=== PATIENT | female | born 1995 | race Caucasian/White ===

== ENCOUNTER 2023-05-31 15:00 | Emergency (ER) | payer MEDICAID, SELFPAY ==
[2023-05-31 15:18] VITALS: BP 147/96; PULSE 90; RESP 20; TEMP 36.8; O2SAT 97; BMI 27.4
--- NOTE | 2023-05-31 15:31 | CT_ITS ---
The [address] [address] Patient Name: GIANCARLO CELAYA MRN: [id number] date: 1995 Sex: F Assigned Patient Location: ER Current Patient Location: ER Accession/Order Number: [id number] Exam Date: 05/31/2023 16:26 Report Date: 05/31/2023 16:59 At the request of: GLADIS RODRIGUEZ Procedure: CT head/brain wo con EXAM: CT head/brain wo con HISTORY: Headache and neck pain for one month. TECHNIQUE: Axial CT scans through the head were obtained without IV contrast administration. Dose reduction techniques were achieved by using: automated exposure control and/or adjustment of mA and /or kV according to patient size and/or use of iterative reconstruction technique. COMPARISON: None. FINDINGS: The cerebral hemispheres have normal white and mitchell matter and corticomedullary differentiation. To the limit of CT, the posterior fossa appears unremarkable. The ventricular system and cortical sulci are normal for the patient's age. No area of abnormal mass-effect or edema or intracranial hemorrhage. The visualized orbits show no abnormal mass. The visualized paranasal sinuses show no air-fluid level. Mastoid air cells are clear. CT/CT head/brain wo con IMPRESSION: No acute intracranial process. Electronically authenticated by: DAYANA ROJAS Date: 05/31/2023 16:59
--- NOTE | 2023-05-31 15:31 | CT_ITS ---
The [address] [address] Patient Name: GIANCARLO CELAYA MRN: [id number] date: 1995 Sex: F Assigned Patient Location: ER Current Patient Location: ER Accession/Order Number: [id number] Exam Date: 05/31/2023 16:26 Report Date: 05/31/2023 17:02 At the request of: GLADIS RODRIGUEZ Procedure: CT cervical spine wo con EXAM: CT cervical spine wo con HISTORY: Neck pain for one month. TECHNIQUE: Axial CT scans through the cervical spine were obtained without contrast administration. Sagittal and coronal reconstruction images were obtained. A trauma Dose reduction techniques were achieved by using: automated exposure control and/or adjustment of mA and /or kV according to patient size and/or use of iterative reconstruction technique. COMPARISON: None. FINDINGS: Normal cervical alignment. Intracanalicular compartment appears unremarkable. No neural foraminal stenosis or abnormal paraspinal soft tissue. No abnormal lytic or sclerotic lesion. The prevertebral soft tissue space appears normal. Visualized intracranial contents appear normal. Visualized neck shows no adenopathy. Visualized lung apices are clear. CT/CT cervical spine wo con IMPRESSION: Normal CT of cervical spine. Electronically authenticated by: DAYANA ROJAS Date: 05/31/2023 17:02
--- NOTE | 2023-05-31 16:11 | ED.GENADUL1 ---
HPI - General Adult General Chief complaint: Headache Stated complaint: HEADACHE X 1 MONTH Time Seen by Provider: 05/31/23 15:31 Source: patient Mode of arrival: walk-in Limitations: no limitations History of Present Illness HPI narrative: Patient with about one month of headache - location changes - and posterior neck pain presents to the ED. Her headache is sometimes associated with nausea and twice associated with vomiting. She also occasionally has visual blurring, hand tingling and/or peripheral visual shimmering . No recent illness or injury to the head or neck. No skin rash. She had migraines as a child and early teen and then they stopped . She saw her PCP and was diagnosed with stress and anxiety , she told me. She was prescribed Effexor and it hasn't made any difference . Related Data Previous Rx's Medication Instructions Recorded ketorolac 10 mg tablet 10 mg PO Q8H PRN headache #14 tabs 05/31/23 ondansetron 4 mg disintegrating 4 mg PO Q6H PRN headache, nausea 05/31/23 tablet #14 tabs sumatriptan succinate 50 mg tablet See Rx Instructions PO .COMPLEX 05/31/23 (Imitrex) PRN headache #20 tabs Allergies Allergy/AdvReac Type Severity Reaction Status Date / Time No Known Drug Allergies Allergy Verified 05/31/23 15:22 Exam Narrative Exam Narrative: Nurses notes and vital signs reviewed and patient is not hypoxic. afebrile General: Well-appearing and in no apparent distress. Skin: Warm, dry, no pallor noted. No rash. Head: Normocephalic, atraumatic. Neck: Supple, non-tender. No meningismus. No cervical lymphadenopathy Eye: Pupils are equal, round and EOMI. No scleral icterus. No nystagmus Ears, Nose, Mouth, and Throat: TM are clear, no posterior oropharynx erythema or nasal mucosal hypertrophy, uvula is mid-line Oral mucosa is moist Cardiovascular: Regular Rate and Rhythm without murmur, gallop or rub. Respiratory: No accessory muscle use or respiratory distress. Lungs are clear to auscultation, no wheezing, rales or rhonchi Musculoskeletal: normal ROM all 4 Neurological: A&O x4. No cranial nerve dysfunction observed. No truncal ataxia. Moves all extremities. Sensation intact. Psychiatric: Cooperative and interactive. Normal mood and affect. Constitutional Vital Signs, click to edit/add: Last Vital Signs Temp 98.3 F 05/31/23 15:18 Pulse 90 05/31/23 15:18 Resp 20 05/31/23 15:18 BP 147/96 H 05/31/23 15:18 Pulse Ox 97 05/31/23 15:18 O2 Del Method Room Air 05/31/23 15:18 Course Vital Signs Vital signs: Vital Signs Temperature 98.3 F 05/31/23 15:18 Pulse Rate 90 05/31/23 15:18 Respiratory Rate 20 05/31/23 15:18 Blood Pressure 147/96 H 05/31/23 15:18 Pulse Oximetry 97 05/31/23 15:18 Oxygen Delivery Method Room Air 05/31/23 15:18 Temperature 98.3 F 05/31/23 15:18 Pulse Rate 90 05/31/23 15:18 Respiratory Rate 05/31/23 15:18 Blood Pressure 147/96 H 05/31/23 15:18 Pulse Oximetry 97 05/31/23 15:18 Oxygen Delivery Method Room Air 05/31/23 15:18 Medical Decision Making MDM Narrative Medical decision making narrative: Patient sent for CT scans of the head and cervical spine. She was given Toradol, Benadryl and Zofran. Head CT and cervical spine CTs were without worrisome findings. She had no improvement with initial ED treatment - headache was unchanged - so she received IV Solu-medrol, IV Magnesium and IV Norflex. Her pain started to decrease after the second round of treatment meds. She received IV Reglan before beign discharged home. I prescribed zofran, toradol to take until this episode resolves. She also got a prescription for Imitrex to take if the headache returns after this episode resolves. Discharge Plan Discharge Chief Complaint: Headache Clinical Impression: Headache Patient Disposition: Home, Self-Care Time of Disposition Decision: 18:19 Prescriptions / Home Meds: New ondansetron 4 mg tablet,disintegrating 4 mg PO Q6H PRN (Reason: headache, nausea) Qty: 14 0RF ketorolac 10 mg tablet 10 mg PO Q8H PRN (Reason: headache) Qty: 14 0RF sumatriptan succinate [Imitrex] 50 mg tablet See Rx Instructions .ROUTE .COMPLEX PRN (Reason: headache) Qty: 20 0RF Rx Instructions: take 1 tab at onset of headache; if no relief may repeat 1 tab after at least 2 hrs; max = 4 tabs/24 hr PRN; Instructions: Acute Headache (ED) Stand Alone Forms: Portal Instructions Referrals: Physician,Non-Staff, MD [Primary Care Provider] - 1 week
[2023-05-31] MEDS: ONDANSETRON 4 MG RAPDIS TABLET SL (16:22)
[2023-05-31] MEDS: DIPHENHYDRAMINE HCL 25 MG/10 ML ELIXIR PO (16:22)
[2023-05-31] MEDS: KETOROLAC TROMETHAMINE 10 MG TABLET PO (16:22)
[2023-05-31] MEDS: METHYLPREDNISOLONE SOD SUCC PF 125 MG/2 ML VIAL IVP (17:24)
[2023-05-31] MEDS: ORPHENADRINE 60 MG/ 2 ML VIAL 30 MG IV (17:24)
[2023-05-31] MEDS: METOCLOPRAMIDE HCL 10 MG/2 ML VIAL IVP (18:50)
== END 2023-05-31 18:56 | disposition home or self-care (01) ==
PROVIDERS: Emergency Provider Emergency Medicine
DX: R51.9 Headache, unspecified (principal)
CPT/HCPCS: 70450; 72125; 96365; 96375; 99285; J2360; J2765; J2930; J3475; Q0162

== ENCOUNTER 2023-07-18 12:43 | Emergency (ER) | payer MEDICAID, SELFPAY ==
[2023-07-18 12:51] VITALS: BP 135/80; PULSE 90; RESP 16; TEMP 36.7; O2SAT 99; BMI 27.1
[2023-07-18 12:57] LABS: Glucometer 89 mg/dL (74-106)
--- NOTE | 2023-07-18 12:59 | ED.GENADUL1 ---
HPI - General Adult General Chief complaint: Recheck/Abnormal Lab/Rx Stated complaint: ABNORNMAL LAB VALUE Time Seen by Provider: 07/18/23 12:50 Source: patient Mode of arrival: walk-in History of Present Illness HPI narrative: 27-year-old female presents for 2-week history of not feeling well. She has been nauseous and vomited once. She took tests at home and they were negative. She has not had a period for 2 months. No diarrhea. She is not complaining of cough or fever or shortness of breath. Related Data Previous Rx's Medication Instructions Recorded sumatriptan succinate 50 mg tablet See Rx Instructions PO .COMPLEX 05/31/23 (Imitrex) PRN headache #20 tabs byrbnrzvld-qdnyviigcsfuk-xiybgtbr 1 cap PO Q6H PRN pain 7 days #20 07/18/23 50 mg-300 mg-40 mg capsule caps (Fioricet) ondansetron 4 mg disintegrating 4 mg PO Q6H PRN nausea and 07/18/23 tablet vomiting #20 tabs Allergies Allergy/AdvReac Type Severity Reaction Status Date / Time No Known Drug Allergies Allergy Verified 05/31/23 15:22 Review of Systems ROS Narrative A ten point review of systems is negative except as noted above. Exam Narrative Exam Narrative: Nurses note and vital signs reviewed and patient is not hypoxic. General: The patient appears well and in no apparent distress. Patient is resting comfortably on cart. Skin: Warm, dry, no pallor noted. There is no rash noted. Head: Normocephalic, atraumatic Eye: Normal conjunctiva, no drainage Ears, Nose, Mouth, and Throat: oral mucosa is moist. Nares patent. Cardiovascular: Regular Rate and Rhythm Respiratory: Patient is in no distress, no accessory muscle use, lungs are clear to auscultation, no wheezing, rales or rhonchi Back: non-tender GI: Soft and nontender Musculoskeletal: The patient has no evidence of calf tenderness, no pitting edema, symmetrical pulses noted bilaterally Neurological: A&O, normal speech Psychiatric: Cooperative Constitutional Vital Signs, click to edit/add: Last Vital Signs Temp 98.0 F 07/18/23 12:51 Pulse 90 07/18/23 12:51 Resp 16 07/18/23 12:51 BP 135/80 07/18/23 12:51 Pulse Ox 99 07/18/23 12:51 O2 Del Method Room Air 07/18/23 12:51 Course Vital Signs Vital signs: Vital Signs Temperature 98.0 F 07/18/23 12:51 Pulse Rate 90 07/18/23 12:51 Respiratory Rate 16 07/18/23 12:51 Blood Pressure 135/80 07/18/23 12:51 Pulse Oximetry 99 07/18/23 12:51 Oxygen Delivery Method Room Air 07/18/23 12:51 Temperature 98.0 F 07/18/23 12:51 Pulse Rate 90 07/18/23 12:51 Respiratory Rate 16 07/18/23 12:51 Blood Pressure 135/80 07/18/23 12:51 Pulse Oximetry 99 07/18/23 12:51 Oxygen Delivery Method Room Air 07/18/23 12:51 Medical Decision Making MDM Narrative Medical decision making narrative: Her workup is negative, she is not . She was given IV fluids and Zofran and Toradol and is discharged home with a prescription for Fioricet and for Zofran. Treatment diagnosis and follow-up were discussed with the patient. Differential Diagnosis Differential Diagnosis: Dehydration, headache, stress Lab Data Lab results reviewed: Yes I reviewed the patient's lab results Labs: Lab Results 07/18/23 07/18/23 07/18/23 Range/Units 12:55 12:56 13:10 WBC 8.2 (4.0-11.0) 10^3/uL RBC 4.98 (4.20-5.40) 10^6/uL Hgb 14.8 (12.0-16.0) g/dL Hct 42.6 (36.0-48.0) % MCV 85.5 (81.0-99.0) fL MCH 29.7 (26.7-34.0) pg MCHC 34.7 (29.9-35.2) g/dL RDW 12.3 (11.0-15.0) % Plt Count 209 (150-450) 10^3/uL MPV 11.3 (9.5-13.5) fL Neut % (Auto) 68.1 (43.0-75.0) % Lymph % (Auto) 25.7 (20.5-60.0) % [place] % (Auto) 5.4 (1.7-12.0) % Eos % (Auto) 0.2 L (0.9-7.0) % Baso % (Auto) 0.4 (0.2-2.0) % Neut # (Auto) 5.6 (1.4-6.5) 10^3/uL Lymph # (Auto) 2.1 (1.2-3.8) 10^3/uL [place] # (Auto) 0.4 (0.3-0.8) 10^3/uL Eos # (Auto) 0.0 (0.0-0.7) 10^3/uL Baso # (Auto) 0.0 (0.0-0.1) 10^3/uL Abs Immat Gran (auto) 0.02 (0.00-0.03) 10^3/uL Imm/Tot Granulo (auto) 0.2 (0.0-0.5) % Sodium 138 (136-145) mmol/L Potassium 4.2 (3.5-5.1) mmol/L Chloride 104 (98-107) mmol/L Carbon Dioxide 23.1 (21.0-32.0) mmol/L Anion Gap 15.1 BUN 12.0 (7.0-18.0) mg/dL Creatinine 0.81 (0.55-1.02) mg/dL Est GFR ( Amer) >60 (>=60) Est GFR (Non-Af Amer) >60 (>=60) BUN/Creatinine Ratio 14.8 Glucose 87 (74-106) mg/dL Calcium 9.5 (8.5-10.1) mg/dL Serum HCG, Qual Negative (NEGATIVE) Urine Color Yellow (YELLOW) Urine Clarity Clear (CLEAR) Urine pH 5.5 (5.0-9.0) Ur Specific [place] >=1.030 A (1.005-1.025) Urine Protein Negative (NEG/TRACE) mg/dL Urine Glucose (UA) Negative (NEGATIVE) mg/dL Urine Ketones 40 A (NEGATIVE) mg/dL Urine Occult Blood Negative (NEGATIVE) Urine Nitrite Negative (NEGATIVE) Urine Bilirubin Negative (NEGATIVE) Urine Urobilinogen 0.2 (0.2-1.0) EU/dL Ur Leukocyte Esterase Negative (NEGATIVE) Urine RBC 0-2 (0-2) #/HPF Urine WBC None seen (NONE SEEN) #/HPF Ur Squamous Epith Cells Moderate A (NONE/RARE) #/LPF Urine Crystals None seen (None Seen) #/HPF Urine Bacteria Small A (NONE SEEN) #/HPF Urine Casts None seen (NONE SEEN) #/LPF Urine Mucus None seen (NONE SEEN) POC Glucose 89 (74-106) mg/dL Discharge Plan Discharge Stand Alone Forms: Portal Instructions Chief Complaint: Recheck/Abnormal Lab/Rx Clinical Impression: Headache Patient Disposition: Home, Self-Care Time of Disposition Decision: 13:56 Condition: Good Mode of Transportation: Private Vehicle Prescriptions / Home Meds: New ondansetron 4 mg tablet,disintegrating 4 mg PO Q6H PRN (Reason: nausea and vomiting) Qty: 20 0RF qnwwxkqkyf-rfbbyhdyqajug-gmak [Fioricet] 50-300-40 mg capsule 1 cap PO Q6H PRN (Reason: pain) 7 Days Qty: 20 0RF No Action sumatriptan succinate [Imitrex] 50 mg tablet See Rx Instructions .ROUTE .COMPLEX PRN (Reason: headache) Qty: 20 0RF Rx Instructions: take 1 tab at onset of headache; if no relief may repeat 1 tab after at least 2 hrs; max = 4 tabs/24 hr PRN; Instructions: Acute Headache (ED) Referrals: Physician,Non-Staff, MD [Primary Care Provider] - 1 week
[2023-07-18] MEDS: ONDANSETRON PF 4 MG/2 ML VIAL IV (13:14)
[2023-07-18] MEDS: 0.9 % SODIUM CHLORIDE 1,000 ML 1000 ML IV (13:14)
--- NOTE | 2023-07-18 13:20 | PC.NURSE ---
pt states for the lasyt 2 weeks she has experienced nausea, vomited x1, heartburn, headaches and hot flashes . LMP 2 months ago but has irregular periods. Had taken some home preg tests that were negative.
[2023-07-18 13:29] LABS: Anion Gap 15.1; BUN Creatinine Ratio 14.8; Calcium 9.5 mg/dL (8.5-10.1); Carbon Dioxide 23.1 mmol/L (21.0-32.0); Chloride 104 mmol/L (98-107); Estimated GFR (African America >60 (>=60); Estimated GFR (Non-African Ame >60 (>=60); Glucose 87 mg/dL (74-106); Potassium 4.2 mmol/L (3.5-5.1); Sodium 138 mmol/L (136-145)
[2023-07-18 13:33] LABS: Bilirubin Urine NEGATIVE (NEGATIVE); Blood Urine NEGATIVE (NEGATIVE); Clarity Urine CLEAR (CLEAR); Color Urine YELLOW (YELLOW); Glucose Urine UA NEGATIVE (NEGATIVE); Ketones Urine 40 mg/dL (NEGATIVE); Leukocyte Esterase Urine NEGATIVE (NEGATIVE); Nitrite Urine NEGATIVE (NEGATIVE); Protein Urine NEGATIVE (NEG/TRACE); Specific Gravity Urine >=1.030 (1.005-1.025); Urobilinogen Urine 0.2 EU/dL (0.2-1.0); pH Urine 5.5 (5.0-9.0)
[2023-07-18 13:33] LABS: Basophils Percent Auto 0.4 % (0.2-2.0); Eosinophils Percent Auto 0.2 % (0.9-7.0); Hematocrit 42.6 % (36.0-48.0); Hemoglobin 14.8 g/dL (12.0-16.0); Immature Granulocytes Abs Auto 0.02 10^3/uL (0.00-0.03); Immature Granulocytes Pct Auto 0.2 % (0.0-0.5); Lymphocytes Absolute Auto 2.1 10^3/uL (1.2-3.8); Lymphocytes Percent Auto 25.7 % (20.5-60.0); Mean Corpuscular HGB Conc 34.7 g/dL (29.9-35.2); Mean Corpuscular Hemoglobin 29.7 pg (26.7-34.0); Mean Corpuscular Volume 85.5 fL (81.0-99.0); Mean Platelet Volume 11.3 fL (9.5-13.5); Monocytes Absolute Auto 0.4 10^3/uL (0.3-0.8); Monocytes Percent Auto 5.4 % (1.7-12.0); Neutrophils Absolute Auto 5.6 10^3/uL (1.4-6.5); Neutrophils Percent Auto 68.1 % (43.0-75.0); Platelet Count 209 10^3/uL (150-450); Red Blood Count 4.98 10^6/uL (4.20-5.40); Red Cell Distribution Width 12.3 % (11.0-15.0); White Blood Count 8.2 10^3/uL (4.0-11.0)
[2023-07-18 13:40] LABS: Bacteria Urine SMALL #/HPF (NONE SEEN); Cast Seen? NONE SEEN #/LPF (NONE SEEN); Crystals Seen? None Seen #/HPF (None Seen); Mucus Urine NONE SEEN (NONE SEEN); RBC Urine 0-2 #/HPF (0-2); Squamous Epithelial Cell Urine MODERATE #/LPF (NONE/RARE); WBC Urine NONE SEEN #/HPF (NONE SEEN)
[2023-07-18 13:45] LABS: HCG Qualitative NEGATIVE (NEGATIVE)
[2023-07-18] MEDS: KETOROLAC TROMETHAMINE 30 MG/ML VIAL IVP (13:54)
== END 2023-07-18 14:56 | disposition home or self-care (01) ==
PROVIDERS: Emergency Provider Emergency Medicine
DX: R51.9 Headache, unspecified (principal)
CPT/HCPCS: 36415; 80048; 81001; 84703; 85025; 96361; 96374; 96375; 99285

== ENCOUNTER 2023-07-21 12:36 | Outpatient (OUT) | payer MEDICAID, SELFPAY ==
--- NOTE | 2023-07-21 12:53 | XR_ITS ---
The [place] [id number] Patient Name: GIANCARLO CELAYA MRN: [id number] date: 1995 Sex: F Assigned Patient Location: LAB Current Patient Location: Accession/Order Number: [id number] Exam Date: 07/21/2023 12:59 Report Date: 07/22/2023 09:07 At the request of: LUDY GRAFF Procedure: XR scoliosis survey EXAMINATION: XR scoliosis survey HISTORY: Acquired Scoliosis, Daily Headache, Neck Pain COMPARISON: No relevant comparison available. FINDINGS: VERTEBRA: No fracture, listhesis, or abnormal wedging. DISK SPACES: No significant narrowing. CURVATURE: Long gentle right convex curvature of cervical and thoracic spine, 9 degrees. MEASURED FROM: Superior endplate C4 to inferior endplate T12 CURVATURE: Slight left convex curvature of lumbar spine, 6 degrees. MEASURED FROM: Inferior endplate T12 to superior endplate L5 RISSER GRADE: 5 OTHER: Negative XR/XR scoliosis survey IMPRESSION: 1. Mild S-shaped curvature of the cervical, thoracic, and lumbar spine falling just below criteria for scoliosis. *Risser grades 0 to 5. Grading is based on the degree of ossification of the iliac apophysis, from grade zero (no ossification) to grade 5 (complete ossification). Electronically authenticated by: JEFFERY LEYVA Date: 07/22/2023 09:07
--- NOTE | 2023-07-21 12:53 | XR_ITS ---
The [address] [address] Patient Name: GIANCARLO CELAYA MRN: [id number] date: 1995 Sex: F Assigned Patient Location: LAB Current Patient Location: LAB Accession/Order Number: [id number] Exam Date: 07/21/2023 12:59 Report Date: 07/22/2023 09:15 At the request of: LUDY GRAFF Procedure: XR cervical spine 5V EXAMINATION: XR cervical spine 5V HISTORY: Acquired Scoliosis, Daily Headache, Neck Pain COMPARISON: No relevant comparison available. FINDINGS: BONES: Slight reversal of normal lordotic curvature; positioning versus muscle spasm. Mild right convex curvature. No fracture or spondylolisthesis. No significant facet arthropathy DISC SPACES: Slight narrowing C2-3, C3-4, and C4-5. PARASPINOUS: Negative. No paraspinous abnormality is seen. OTHER: Negative. XR/XR cervical spine 5V IMPRESSION: 1. Multilevel mild degenerative changes of the cervical spine which may contribute to patient's symptoms. Electronically authenticated by: JEFFERY LEYVA Date: 07/22/2023 09:15
[2023-07-21 14:15] LABS: Percent Iron Saturation 40.8 %
[2023-07-21 15:05] LABS: TSH W/ REFLEX FT4 1.278 uIU/mL (0.358-3.740)
[2023-07-22 04:07] LABS: Estradiol 35.8 pg/mL (.); FSH 4.3 mIU/mL (.); Luteinizing Hormone(LH) 5.8 mIU/mL (.); Progesterone 0.6 ng/mL (.); Testosterone 24 ng/dL (13-71)
[2023-07-22 15:11] LABS: Thyroglobulin Antibody <1.0 IU/mL (0.0-0.9); Thyroid Peroxidase (TPO) Ab 9 IU/mL (0-34)
[2023-07-24 16:08] LABS: Estrogens, Total 138 pg/mL (.)
== END 2023-07-21 12:37 | disposition home or self-care (01) ==
PROVIDERS: PCP Nurse Practitioner Family; Visit Provider Nurse Practitioner Family
DX: R51.9 Headache, unspecified (principal); R53.83 Other fatigue; R23.2 Flushing; N92.6 Irregular menstruation, unspecified; M54.2 Cervicalgia; M41.9 Scoliosis, unspecified
CPT/HCPCS: 36415; 72050; 72082; 82306; 82670; 82672; 83001; 83002; 83540; 83550; 84144; 84403; 84443; 86376; 86800

== ENCOUNTER 2023-07-28 15:09 | Outpatient (RCR) | payer MEDICAID, SELFPAY | END 2023-08-12 17:15 | disposition home or self-care (01) | LOC: PT 15:09 | PROVIDERS: PCP Nurse Practitioner Family; Visit Provider Nurse Practitioner Family | DX: M54.2 Cervicalgia (principal); R51.9 Headache, unspecified | CPT/HCPCS: 97012; 97110; 97112; 97140; 97162 ==

== ENCOUNTER 2023-12-05 12:24 | Outpatient (RCR) | payer MEDICAID, SELFPAY | END 2024-01-28 16:14 | disposition home or self-care (01) | LOC: PT 12:24 | PROVIDERS: PCP Nurse Practitioner Family; Visit Provider Nurse Practitioner Family | DX: M54.2 Cervicalgia (principal); R51.9 Headache, unspecified | CPT/HCPCS: 97012; 97110; 97140; 97161 ==

== ENCOUNTER 2024-01-11 10:29 | Outpatient (OUT) | payer MEDICAID, SELFPAY | END 2024-01-11 10:30 | disposition home or self-care (01) | LOC: CARD 10:29 | PROVIDERS: PCP Nurse Practitioner Family; Visit Provider Nurse Practitioner Family | DX: I49.9 Cardiac arrhythmia, unspecified (principal) | CPT/HCPCS: 93242 ==

== ENCOUNTER 2024-01-19 10:42 | Emergency (ER) | payer MEDICAID, SELFPAY ==
[2024-01-19] VITALS (17 sets, daily range): BP systolic 122–123; BP diastolic 83; PULSE 69–115; TEMP 36.7; O2SAT 97–100; BMI 22.1
--- NOTE | 2024-01-19 11:02 | ECG_ITS ---
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
--- NOTE | 2024-01-19 11:02 | XR_ITS ---
The [place] [id number] Patient Name: GIANCARLO CELAYA MRN: [id number] date: 1995 Sex: F Assigned Patient Location: ER Current Patient Location: ER Accession/Order Number: [id number] Exam Date: 01/19/2024 11:30 Report Date: 01/19/2024 12:19 At the request of: MOE JOHNSON Procedure: XR cervical spine 2-3V EXAMINATION: XR cervical spine 2-3V HISTORY: Neck pain COMPARISON: No relevant comparison available. FINDINGS: BONES: Reversal of normal cervical lordosis. No acute fracture or spondylolisthesis DISC SPACES: Normal. No significant disc height narrowing, subluxation, or endplate abnormality. PARASPINOUS: Negative. No paraspinous abnormality is seen. OTHER: Negative. XR/XR cervical spine 2-3V IMPRESSION: Reversal of cervical lordosis Electronically authenticated by: JACK BAUTISTA Date: 01/19/2024 12:19
--- NOTE | 2024-01-19 11:03 | ED_ITS ---
HPI HPI - General Adult General Chief complaint: Dizziness Stated complaint: RACING HARTBEAT, WEAK, DIZZY Time Seen by Provider: 01/19/24 10:52 Source: patient Mode of arrival: walk-in Limitations: no limitations History of Present Illness HPI narrative: 28-year-old female presents to the emergency department for not feeling well. She has had this for about 2 weeks and she saw her doctor about it who told her it might be anxiety. She had worn a Holter monitor but has not gotten the results yet. Her symptoms include nausea and dry heaving and she has not had much of an appetite. For about 4 days she has had some pain on the right side of her neck going into her right shoulder and partly down her arm. There was no injury or unusual activity. Related Data Allergies Allergy/AdvReac Type Severity Reaction Status Date / Time No Known Drug Allergies Allergy Verified 01/19/24 10:51 Opioid HPI Opioid Management Most Recent Opioid Data: No Data to Display Review of Systems ROS Narrative A ten point review of systems is negative except as noted above. PFSH PFSH Social History Little interest or pleasure in doing things: not at all Feeling down, depressed, or hopeless: not at all Exam Narrative Exam Narrative: Nurses note and vital signs reviewed and patient is not hypoxic. General: The patient appears well and in no apparent distress. Patient is resting comfortably on cart. Skin: Warm, dry, no pallor noted. There is no rash noted. Head: Normocephalic, atraumatic Eye: Normal conjunctiva, no drainage Ears, Nose, Mouth, and Throat: oral mucosa is moist. Nares patent. Cardiovascular: Regular Rate and Rhythm, not tachycardic Respiratory: Patient is in no distress, no accessory muscle use, lungs are clear to auscultation, no wheezing, rales or rhonchi Back: Cervical spine nontender. No swelling or masses in her neck. GI: Soft and nontender Musculoskeletal: The patient has no evidence of calf tenderness, no pitting edema, symmetrical pulses noted bilaterally Neurological: Awake and alert. Right shoulder has full range of motion. Radial pulse 2+. No swelling in the arm. Psychiatric: Cooperative Constitutional Vital Signs, click to edit/add: Last Vital Signs Temp 98.1 F 01/19/24 10:47 Pulse 115 H 01/19/24 13:00 Resp 22 H 01/19/24 13:00 BP 122/83 01/19/24 10:48 Pulse Ox 98 01/19/24 10:48 O2 Del Method Room Air 01/19/24 10:47 Course Vital Signs Vital signs: Vital Signs Temperature 98.1 F 01/19/24 10:47 Pulse Rate 105 H 01/19/24 10:47 Respiratory Rate 16 01/19/24 10:47 Blood Pressure 122/83 01/19/24 10:47 Pulse Oximetry 98 01/19/24 10:47 Oxygen Delivery Method Room Air 01/19/24 10:47 Temperature 98.1 F 01/19/24 10:47 Pulse Rate 115 H 01/19/24 13:00 Respiratory Rate 22 H 01/19/24 13:00 Blood Pressure 122/83 01/19/24 10:48 Pulse Oximetry 98 01/19/24 10:48 Oxygen Delivery Method Room Air 01/19/24 10:47 Medical Decision Making MDM Narrative Medical decision making narrative: Her workup here is negative. There are no results in the EHR regarding her Holter monitor. She is being discharged home and the possibility of anxiety was discussed with her. Differential Diagnosis Differential Diagnosis: Dehydration, anemia, Lab Data Lab results reviewed: Yes I reviewed the patient's lab results Labs: Lab Results 01/19/24 Range/Units 11:12 WBC 4.8 (4.0-11.0) 10^3/uL RBC 4.71 (4.20-5.40) 10^6/uL Hgb 14.3 (12.0-16.0) g/dL Hct 39.6 (36.0-48.0) % MCV 84.1 (81.0-99.0) fL MCH 30.4 (26.7-34.0) pg MCHC 36.1 H (29.9-35.2) g/dL RDW 11.7 (11.0-15.0) % Plt Count 137 L (150-450) 10^3/uL MPV 11.2 (9.5-13.5) fL Neut % (Auto) 61.9 (43.0-75.0) % Lymph % (Auto) 25.1 (20.5-60.0) % Archuleta % (Auto) 11.6 (1.7-12.0) % Eos % (Auto) 1.0 (0.9-7.0) % Baso % (Auto) 0.4 (0.2-2.0) % Neut # (Auto) 3.0 (1.4-6.5) 10^3/uL Lymph # (Auto) 1.2 (1.2-3.8) 10^3/uL Archuleta # (Auto) 0.6 (0.3-0.8) 10^3/uL Eos # (Auto) 0.1 (0.0-0.7) 10^3/uL Baso # (Auto) 0.0 (0.0-0.1) 10^3/uL Abs Immat Gran (auto) 0.00 (0.00-0.03) 10^3/uL Imm/Tot Granulo (auto) 0.0 (0.0-0.5) % Sodium 135 L (136-145) mmol/L Potassium 3.3 L (3.5-5.1) mmol/L Chloride 100 (98-107) mmol/L Carbon Dioxide 27.5 (21.0-32.0) mmol/L Anion Gap 10.8 BUN 12.0 (7.0-18.0) mg/dL Creatinine 0.88 (0.55-1.02) mg/dL Est GFR ( Amer) >60 (>=60) Est GFR (Non-Af Amer) >60 (>=60) BUN/Creatinine Ratio 13.6 Glucose 94 (74-106) mg/dL Calcium 8.7 (8.5-10.1) mg/dL Serum HCG, Qual Negative (NEGATIVE) Imaging Data C-spine x-ray: Radiologist's impression: ITS Impressions Cervical Spine X-Ray 01/19/24 11:02 IMPRESSION: Reversal of cervical lordosis Electronically authenticated by: JACK BAUTISTA Date: 01/19/2024 12:19 ECG Data Attestation: I personally reviewed and interpreted this ECG as follows: (EKG on my interpretation shows normal sinus rhythm with a rate of 80 and no acute change) Discharge Plan Discharge Chief Complaint: Dizziness Clinical Impression: Dizziness Patient Disposition: Home, Self-Care Time of Disposition Decision: 13:42 Condition: Good Mode of Transportation: Private Vehicle Print Language: Urdu Instructions: Dizziness (ED) Referrals: LUDY GRAFF [Primary Care Provider] - 1 week
--- OUTSIDE RECORDS SUMMARY | 2024-01-19 11:19 | XMS_ITS | CCD ---
Author Organization [facility] CliniSy[facility] Care Team Providers Care Road Maker Name Role Phone TALON VERAS Unavailable Unavailable TALON VERAS Unavailable Unavailable Hima Silver Primary Care Physician Unava ilable Adrianne, Hima Catherine Unavailable Unavailable Hima Silver A Primary Care Physician Unava ilable Adrianne, Hima A Primary Care Physician Unava ilable Lyric Pérez Primary Care Physician Unavai Lyric Patricia N Primary Care Physician UnavaLyric Silveira N Primary Care Physician Unavai Hima Ayala A Primary Care Physician Unava ilLyric Pool Primary Care Physician Unavai Deidra Morrison Unavailable Jodie Portillo Unavailable Zachariah MARIE-CGabino Primary Care Unavail able Simon [employer], Cheryl Shields Attending Unavai lable Zachariah PA-C, Gabino Portillo Primary Care Unavail able Tollerud PA-C, Susana Dickerson Attending Carley vailable Zachariah PA-CGabino Primary Care Unavail able [place] PA-C, Susana Dickerson Attending Carley vailable Tollerud PA-C, Susana Dickerson Primary Care Carley vailable Tollerud PA-C, Susana Dickerson Referring Carley vailable Breece PA-C, Amara Serra Attending Unav ailable Tollerud PA-C, Susana Dickerson Attending Carley vailable Zachariah PA-C, Gabino Portillo Primary Care Unavail able Zachariah PA-C, Gabino Portillo Primary Care Unavail able Maira [employer], Ghislaine Hernandez Attending Un available Zachariah PA-CGabino Primary Care Unavail able Zachariah PA-C, Gabino Portillo Primary Care Unavail able Tollerud PA-C, Susana Dickerson Attending Carley vailable Zachariah PA-C, Gabino Portillo Primary Care Unavail able [facility], Janeth Maldonado Attending Unavail able Zachariah PA-C, Gabino Portillo Primary Care Unavail able [facility], Janeth Maldonado Attending Unavail able Zachariah PA-C, Gabino Portillo Primary Care Unavail able [facility], Janeth Maldonado Attending Unavail able Zachariah PA-C, Gabino Portillo Primary Care Unavail able Jamarcus Avelar DO Attending Unavailab le [facility], Janeth Maldonado Referring Unavail able Zachariah PA-C, Gabino Portillo Primary Care Unavail able [facility], Janeth Maldonado Attending Unavail able Zachariah PA-C, Gabino Portillo Primary Care Unavail able [facility], Janeth Maldonado Attending Unavail able Zachariah PA-C, Gabino Portillo Primary Care Unavail able Abdoulaye Nassar MD Attending Unavaila ble Zachariah PA-C, Gabino Portillo Primary Care Unavail able Abdoulaye Nassar MD Attending Unavaila ble Zachariah PA-C, Gabinolizzie Baileyler Primary Care Unavail able [place] [employer], Anajenni Marine Attending Carley vailable Zachariah PA-C, Gabino Portillo Primary Care Unavail able [place] [employer], Ana Serra Attending Carley vailable Zachariah PA-C, Gabino Portillo Primary Care Unavail able Opalerud PA-C, Susana Dickerson Attending Carley vailable [place] [employer], Ana Serra Attending Carley vailable Tollerud PA-C, Susana Dickerson Primary Care Carley vailable [place] [employer], Ana Serra Attending Carley vailable Tollerud PA-C, Susana Dickerson Primary Care Carley vailable Tollerud PA-C, Susana Dickerson Attending Carley vailable Zachariah PA-C, Gabino Portillo Primary Care Unavail able Opalerud PA-C, Susana Dickerson Attending Carley vailable Tollerud PA-C, Susana Dickerson Primary Care Carley vailable Tollerud PA-C, Susana Dickerson Attending Carley vailable Tollerud PA-C, Susana Dickerson Primary Care Carley vailable Zachariah PA-C, Gabino Portillo Primary Care Unavail able Opalerud PA-C, Susana Dickerson Attending Carley vailable Medications Current Medications Medication Drug Class(es) Dates Sig (Normalized) Sig (Original) amoxicillin 875 mg oral tablet (1 source) Penicillin-class Antibacterial Start: 03-26-2023 take 1 tablet by mouth every twelve hours Amoxicillin 875 MG 1 capsule Orally Twice a day for 7 days Mar, Active cyclobenzaprine hydrochloride 10 mg oral tablet (1 source) Muscle Relaxant Start: 11-02-2023 take 10 mg by mouth three times daily Cyclobenzaprine Active 10 MG PO Three times daily 07 03November 02, 2023 12:00am ondansetron 4 mg disintegrating oral tablet (11 sources) Serotonin-3 Receptor Antagonist Start: 07-21-2023 take 4 mg by mouth once daily Ondansetron Active 4 MG PO Daily July 21, 2023 12:00am Start: 08-28-2018 End: 09-04-2018 take 1 tablet by mouth three times daily as needed for nausea Zofran 4 mg oral tablet 08/28/2018 09/04/2018 take 1 tablet by oral route TID PRN nausea Completed/Discontinued Medications Medication Drug Class(es) Dates Sig (Normalized) Sig (Original) azithromycin 250 mg oral tablet (12 sources) Macrolide Antimicrobial Start: 04-27-2019 End: 05-02-2019 take 2 tablets by mouth once daily, then take 1 tablet by mouth once daily Zithromax Z-Abhijeet 250 mg oral tablet 04/27/2019 05/02/2019 take 2 tablets (500 mg) by oral route once daily for 1 day then 1 tablet (250 mg) by oral route once daily for 4 days Start: 08-01-2017 End: 08-06-2017 take 2 tablets by mouth once daily, then take 1 tablet by mouth once daily Zithromax Z-Abhijeet 250 mg oral tablet 08/01/2017 08/06/2017 take 2 tablets (500 mg) by oral route once daily for 1 day then 1 tablet (250 mg) by oral route once daily for 4 days benzonatate 200 mg oral capsule (1 source) Non-narcotic Antitussive Start: 05-21-2019 take 1 capsule by mouth three times daily as needed for cough benzonatate 200 mg oral capsule 05/21/2019 take 1 capsule (200 mg) by oral route 3 times per day as needed for cough Start: 05-21-2019 take 1 capsule by mo [facility] three times daily as needed for cough benzonatate 200 mg oral capsule 05/21/2019 take 1 capsule (200 mg) by oral route 3 times per day as needed for cough benzoyl peroxide 0.05 mg/mg / clindamycin 0.01 mg/mg topical gel (9 sources) Lincosamide Antibacterial Start: 04-08-2015 End: 01-28-2016 Benzaclin 1-5 % topical gel 04/08/2015 01/28/2016 apply to the affected area(s) by topical route 2 times per day in the morning and evening busPIRone hydrochloride 5 mg oral tablet (9 sources) Start: 05-30-2015 End: 01-28-2016 take 1 tablet by mouth twice daily buspirone 5 mg oral tablet 05/30/2015 01/28/2016 take 1 tablet (5 mg) by oral route 2 times per day citalopram 20 mg oral tablet (9 sources) Serotonin Reuptake Inhibitor Start: 10-04-2018 End: 10-31-2018 take 1 tablet by mouth once daily citalopram 20 mg oral tablet 10/04/2018 10/31/2018 take 1 tablet (20 mg) by oral route once daily Start: 08-14-2018 take 1 tablet by [facility] once daily citalopram 10 mg oral tablet 08/14/2018 take 1 tablet (10 mg) by oral route once daily clotrimazole 10 mg/ml vaginal cream (9 sources) Azole Antifungal Start: 01-13-2017 Clotrimazole- 7 1 % vaginal cream 01/13/2017 apply 1 applicatorful by vaginal route once once daily at night escitalopram 10 mg oral tablet (20 sources) Serotonin Reuptake Inhibitor Start: 05-20-2017 take 1 tablet by mouth once daily Lexapro 10 mg oral tablet 04/09/2019 take 1 tablet (10 mg) by oral route once daily Start: 10-29-2016 End: 01-13-2017 take 1 tablet by mouth once daily Lexapro 10 mg oral tablet 10/29/2016 01/13/2017 take 1 tablet (10 mg) by oral route once daily Start: 01-28-2016 End: 03-19-2016 take 1 tablet by mouth once daily Lexapro 5 mg oral tablet 01/28/2016 03/19/2016 take 1 tablet (5 mg) by oral route once daily Sprintec (28) 0.25-35 mg-mcg oral tablet (10 sources) Progestin, Estrogen Start: 12-28-2017 take 1 tablet by mouth once daily Sprintec (28) 0.25-35 mg-mcg oral tablet 12/28/2017 take 1 tablet by oral route once daily End: 10-29-2016 take 1 tablet by mouth once daily Sprintec (28) 0.25-35 mg-mcg oral tablet 10/29/2016 take 1 tablet by oral route once daily fluconazole 150 mg oral tablet (20 sources) Azole Antifungal Start: 10-31-2018 take 1 tablet by mouth once, then take 1 tablet by mouth every other day Diflucan 150 mg oral tablet 10/31/2018 take 1 tablet (150 mg) by oral route once. Repeat dose in 2 days Start: 04-13-2017 End: 12-28-2017 take 1 tablet by mouth once Diflucan 150 mg oral table t 08/01/2017 12/28/2017 take 1 tablet (150 mg) by oral route once FLUoxetine 20 mg oral capsule (5 sources) Serotonin Reuptake Inhibitor Start: 02-06-2019 End: 04-09-2019 take 1 capsule by mouth once daily Prozac 20 mg oral capsule 02/06/2019 04/09/2019 take 1 capsule (20 mg) by oral route once daily quit taking approx. 1 month ago fluticasone propionate 0.05 mg/actuat metered dose nasal spray (2 sources) Corticosteroid Start: 10-02-2022 take 2 spray(s) nasal route once daily Fluticasone Propionate 50 MCG/ACT 2 sprays Nasally Once a day for 14 day(s) September, Not-Taking hydrocortisone 0.025 mg/mg topical ointment (9 sources) Corticosteroid Start: 03-08-2018 apply 1 g topically twice daily hydrocortisone 2.5 % topical ointment 03/08/2018 apply a thin layer to the affected area(s) on lips by topical route 2 times per day. Dispense 28 gm ISOtretinoin 40 mg oral capsule (20 sources) Retinoid Start: 03-08-2018 take 1 capsule by mouth once daily at mealtime Myorisan 40 mg oral capsule 03/08/2018 take 1 capsule by mouth daily with a fatty meal; okay to substitute for cheapest alternative Start: 01-30-2018 Myorisan 30 mg oral capsule 01/30/2018 take 1 capsules by mouth with a fatty meal; okay to substitute for cheapest alternative Start: 06-10-2016 End: 06-15-2016 take 1 capsule by mouth once daily Isotretinoin 30 mg capsule 06/10/2016 06/15/2016 Take 1 (30mg) capsule by oral route once daily cost Start: 06-10-2016 End: 06-15-2016 take 1 capsule by mouth once daily Isotretinoin 30 mg capsule 06/10/2016 06/15/2016 Take 1 (30mg) capsule by oral route once daily cost 24 hr methylphenidate hydrochloride 18 mg extended release oral tablet (13 sources) Central Nervous System Stimulant Start: 02-09-2018 take 1 tablet by mouth once daily in the morning Concerta 18 mg oral tablet extended release 24hr 02/09/2018 take 1 tablet (18 mg) by oral route once daily in the morning Start: 02-09-2018 take 1 tablet by kunal th once daily in the morning Concerta 18 mg oral tablet extended release 24hr 02/09/2018 take 1 tablet (18 mg) by oral route once daily in the morning metroNIDAZOLE 500 mg oral tablet (8 sources) Nitroimidazole Antimicrobial Start: 10-31-2018 End: 2018 take 1 tablet by mouth twice daily metronidazole 500 mg oral tablet 10/31/2018 2018 take 1 tablet by oral route 2 times a day for 7 days 24 hr minocycline 90 mg extended release oral tablet (9 sources) Tetracycline-class Drug Start: 06-15-2016 take 1 tablet by mouth once daily minocycline 90 mg oral tablet extended release 24 hr 06/15/2016 take 1 mg/kg by oral route once daily pantoprazole 40 mg delayed release oral tablet (9 sources) Proton Pump Inhibitor Start: 04-09-2015 End: 05-30-2015 take 1 tablet by mouth once daily Protonix 40 mg oral tablet,delayed release (DR/EC) 04/09/2015 05/30/2015 take 1 tablet (40 mg) by oral route once daily predniSONE 20 mg oral tablet (3 sources) Start: 10-02-2022 take 1 tablet by mouth every twelve hours predniSONE 20 MG 1 tablet Orally bid for 5 day(s) September, Not-Taking Start: 05-11-2019 prednisone 10 mg oral tablet 05/11/2019 Take 6 tabs by mouth x 1 day, 5 tabs by mouth x 1 day, 4 tabs by mouth x 1 day, 3 tabs by mouth x 1 day, 2 tabs by mouth x 1 day, 1 tab by mouth x 1 day propranolol hydrochloride 40 mg oral tablet (1 source) beta-Adrenergic Dilcia Start: 07-25-2023 End: 01-03-2024 take 40 mg by mouth once Propranolol Discontinued 40 MG PO Once 30 July 25, 2023 12:00am January 03, 2024 11:37am Sprintec (28) 0.25-35 mg-mcg oral tablet (8 sources) Start: 12-28-2017 take 1 tablet by mouth once daily Sprintec (28) 0.25-35 mg-mcg oral tablet 12/28/2017 take 1 tablet by oral route once daily End: 10-29-2016 take 1 tablet by mouth once daily Sprintec (28) 0.25-35 mg-mcg oral tablet 10/29/2016 take 1 tablet by oral route once daily sucralfate 100 mg/ml oral suspension (9 sources) Aluminum Complex Start: 04-08-2015 End: 05-30-2015 take 10 mL by mouth four times daily 1 hour(s) before bedtime Carafate 100 mg/mL oral suspension 04/08/2015 05/30/2015 take 10 milliliters (1 gram) by oral route 4 times per day on an empty stomach 1 hour before meals and at bedtime sulfacetamide sodium 80 mg/ml / sulfur 40 mg/ml medicated liquid soap (9 sources) Sulfonamide Antibacterial Start: 06-15-2016 SulfaCleanse 8-4 8-4 % topical suspension 06/15/2016 apply to wet skin by topical route once daily then massage gently 10-20 seconds, rinse, and pat dry sulfamethoxazole 800 mg / trimethoprim 160 mg oral tablet (9 sources) Dihydrofolate Reductase Inhibitor Antibacterial, Sulfonamide Antimicrobial Start: 08-28-2018 End: 09-11-2018 take 1 tablet by mouth every twelve hours Bactrim DS 800-160 mg oral tablet 08/28/2018 09/11/2018 take 1 tablet by oral route every 12 hours for 14 days tiZANidine 2 mg oral tablet (2 sources) Central alpha-2 Adrenergic Agonist Start: 07-21-2023 End: 11-02-2023 take 2 mg by mouth every eight hours Tizanidine Discontinued 2 MG PO Every 8 hours 30 10 October 31, 2023 3:48pm November 02, 2023 3:02pm tretinoin 0.25 mg/ml topical cream (9 sources) Retinoid Start: 05-30-2015 End: 01-28-2016 Retin-A 0.025 % topical cream 05/30/2015 01/28/2016 apply to the affected area(s) by topical route once daily at bedtime Problems Active Problems Problem Classification Problem Date Documented Date Episodic/Chronic Anxiety disorders (20 sources) Anxiety state, unspecified Onset: 05-30-2015 Chronic Attention-deficit conduct and disruptive behavior disorders (9 sources) Attention deficit disorder with hyperactivity Onset: 02-09-2018 Chronic Cardiac dysrhythmias (2 sources) Palpitations; Translations: [Palpitations] 01-03-2024 Episodic Conditions associated with dizziness or vertigo (3 sources) Dizziness and giddiness; Translations: [Dizziness] Onset: 07-28-2017 01-03-2024 Episodic Disorders of teeth and jaw (1 source) Other specified disorders of teeth and supporting structures Episodic Headache; including migraine (3 sources) Daily headache; Translations: [Daily headache] 07-21-2023 Episodic Malaise and fatigue (6 sources) Other malaise and fatigue; Translations: [Fatigue] Onset: 05-11-2019 07-21-2023 Episodic Menstrual disorders (3 sources) Irregular periods; Translations: [Irregular menstruation, unspecified] 07-21-2023 Chronic Mood disorders (18 sources) Depressive disorder, not elsewhere classified Onset: 01-28-2016 Chronic Other acquired deformities (2 sources) Acquired scoliosis; Translations: [Scoliosis, unspecified] 07-21-2023 Chronic Other acquired deformities (1 source) Scoliosis, unspecified; Translations: [Scoliosis [and kyphoscoliosis], idiopathic] 07-21-2023 Chronic Other nervous system disorders (9 sources) Attention or concentration deficit Onset: 01-28-2016 Chronic Other upper respiratory disease (1 source) Chronic rhinitis Onset: 05-21-2019 Chronic Other upper respiratory infections (2 sources) Unspecified sinusitis (chronic) Onset: 05-11-2019 Chronic Other upper respiratory infections (15 sources) Acute upper respiratory infections of unspecified site; Translations: [Acute pharyngitis, unspecified] Onset: 08-01-2017 Episodic Residual codes; unclassified (2 sources) Flushing; Translations: [Flushing] 07-21-2023 Episodic Residual codes; unclassified (1 source) Flushing; Translations: [Flushing] 07-21-2023 Episodic Spondylosis; intervertebral disc disorders; other back problems (3 sources) Neck pain; Translations: [Cervicalgia] 07-21-2023 Episodic Sprains and strains (1 source) Strain of muscle, fascia and tendon of lower back, initial encounter; Translations: [Strain of muscle, fascia and tendon of lower back, initial encounter] Onset: 04-20-2018 Episodic Past or Other Problems Problem Classification Problem Date Documented Date Episodic/Chronic Acute bronchitis (3 sources) Acute bronchitis Onset: 04-27-2019 Episodic Allergic reactions (9 sources) Diarrhea Onset: 04-08-2015 Episodic Diseases of mouth; excluding dental (9 sources) Diseases of lips Onset: 03-08-2018 Episodic Fluid and electrolyte disorders (9 sources) Dehydration Onset: 08-01-2017 Episodic Gastritis and duodenitis (9 sources) Unspecified gastritis and gastroduodenitis, without mention of hemorrhage Onset: 04-08-2015 Episodic Genitourinary symptoms and ill-defined conditions (15 sources) Dysuria Onset: 10-31-2018 Episodic Lymphadenitis (5 sources) Enlargement of lymph nodes Onset: 04-27-2019 Episodic Mycoses (20 sources) Candidiasis of vulva and vagina Onset: 01-13-2017 Episodic Other aftercare (20 sources) Long-term (current) use of other medications Onset: 02-12-2016 Episodic Other inflammatory condition of skin (9 sources) Unspecified pruritic disorder Onset: 01-13-2017 Episodic Other skin disorders (20 sources) Other acne Onset: 04-08-2015 Episodic Other skin disorders (20 sources) Dyschromia, unspecified Onset: 03-19-2016 Episodic Other skin disorders (9 sources) Scar conditions and fibrosis of skin Onset: 03-19-2016 Episodic Other skin disorders (20 sources) Other specified diseases of sebaceous glands Onset: 04-23-2016 Episodic Other upper respiratory disease (1 source) Other disease of nasal cavity and sinuses Onset: 05-21-2019 Episodic Urinary tract infections (18 sources) Acute pyelonephritis without lesion of renal medullary necrosis; Translations: [Urinary tract infection, site not specified] Onset: 04-22-2019 Episodic Results Test Name Value Interpretation Reference Range Facility No Panel InformationOrdered By: Evelyn Vu on 01-03-2024 Quick Strep (POC) [facility] Family Medicine Office/Clini c Noteon 05-17-2023 Family Medicine Office/Clinic Note Chief Complaint Headaches History of Present Illness Patient is a 27-year-old female who presents to the office today for follow-up regarding headache. She was initially seen for this in December?started on trial of amitriptyline nightly for tension headache prevention and advised to reduce use of daily NSAIDs. She is no longer taking the amitriptyline- reports she did not tolerate it well- was hard to sleep, felt jittery, nauseous- tried it for 2-3 weeks then discontinued use. She continues to try to limit NSAID use, only takes when NIEVES are bad. +GERD: takes tums occasionally. Spicy foods make it worse but has been occurring daily. Has been feeling more anxious Anxiety/depression: Feels that her anxiety has been worse lately. No longer doing counseling. Feels that it is contributing to her headaches/tension. She had previously tried Prozac and Lexapro in the distant past. She would be interested in starting medication. She does not have any other questions or concerns for today's visit. Care team: Gynecology: AUSTIN Simmons. Dermatology: Liliana Bailey- was taking isotretinoin- recently discontinued. Psychiatry: Counseling. Had intake with Dr. Avelar on 01/05 that ended up being cancelled- [1] Pertinent HPI from prior office visit: Presents today to discuss daily headaches occurring for the past month. States that she has a history of headaches since she was a teenager?had work-up including brain imaging in the past which was unremarkable. Her current NIEVES symptoms are similar to her previous HAs. States that her current headaches start at the base of her neck and wraparound her head?feel like a tight band. Slight nausea with these headaches. She takes Excedrin and ibuprofen almost daily. Takes 800 mg of ibuprofen. She denies unilateral headache, pulsatile pain, aura, photophobia associated with these headaches, weakness, visual symptoms. She works at the [employer], not using computer often besides being on her phone. Has been trying to stay more hydrated. +stress, anxiety and depression. [2] Review of Systems General Adult ROS Fatigue: No Appetite change: No Weakness: No Cardiovascular Chest pain/pressure: No Palpitations: No Syncope: No EENMT Hoarseness: No Nasal congestion: No Nasal discharge: No Sore_throat: No Gastrointestinal Abdominal pain: No Constipation: No Diarrhea: No Heartburn: No Genitourinary Decreased urine output: No Musculoskeletal Back pain: No Joint pain: No Neurological Headache: Yes Psychiatric Anxiety: No Depression: No Respiratory Cough: No Shortness_of_breath: No Wheezing: No Physical Exam Vitals & Measurements T: 36.6 ?C (Temporal Artery) HR: 75 (Peripheral) BP: 100/72 SpO2: 97 HT: 154 cm WT: 67.4 kg WT: 67.4 kg (Dosing) BMI: 28.42 General: Alert and oriented. Well nourished. No acute distress. Eye: PERRL bilaterally. EOMI bilaterally. Neck: Supple, non-tender. Thyroid nonpalpable and nontender. Lungs: Chest symmetric with no accessory muscle use or abnormal retractions. CTA anteriorly and posteriorly. No wheezing, stridor, rales or rhonchi. Heart: Regular rate and rhythm. No murmur or edema. Musculoskeletal: No visible atrophy, erythema, effusion, edema or ecchymosis. Skin: Warm, dry and pink, no visible rashes or lesions. Neurologic: Awake, alert, and oriented X3, CN II-XII grossly intact. Psychiatric: Cooperative, appropriate mood and affect. Additional Vitals BP Position/Location: Sitting, Left arm Assessment/Plan 1. Anxiety and depression See HPI- Trial of venlafaxine for anxiety/depression and headache prevention. Discussed the proper use, pros, cons and risks of this medication. FU 1 month. 2. Tension headache See #1. Discontinue amitriptyline due to side effects. Trial of venlafaxine for anxiety/depression and for headache prevention. Discussed continued avoidance of daily NSAID use to prevent medication overuse/rebound headaches. Discussed importance of stress management, increased hydration, limiting electronic use. Discussed red flag signs symptoms of headache and when to seek more immediate medical attention?patient verbalizes understanding. Call or RTO if symptoms are not improving, changing or progressing. 3. GERD (gastroesophageal reflux disease) See HPI- Trial of omeprazole for 6 to 8 weeks. Discussed the proper use, pros, cons and risks of this medication. Avoid eating within 3 hours of bed; lockstitch pocket setter dinner; limit drinking before bed; Avoid food triggers; Avoid alcohol and caffeine (especially before bed). Raise head of bed. Call or RTO if symptoms are not improving, changing or progressing. Ordered: omeprazole, 1 caps, Oral, Daily, before a meal, # 30 caps, 3 Refill(s), Pharmacy: [id number] Orders: venlafaxine, 2 caps, Oral, Daily, Take one capsule for at least 4 days then start taking 2 capsules once daily., # 60 caps, 3 Refill(s), Pharmacy: [id number] Time Spent with the Pat (more content not included)... Normal [facility] .eGFRon 04-21-2023 GFR/1.73 sq M.predicted MDRD (S/P/Bld) [Vol rate/Area] mL/min/{1.73_m2} Normal >=60 [facility] Comment on above: Result Comment: [facility] have implemented the eGFR calculation approach that does not have a coefficient for race and that conforms to the NKF-ASN Task Force Recommendations. Stages of Chronic Kidney Disease GFR Stage 3a Mild to moderate loss of kidney function 59 to 45 Stage 3b Moderate to severe loss of kidney function 44 to 33 Stage 4 Severe loss of kidney function 29 to 15 Stage 5 Kidney failure Less than 15 GFR calculated using the CKD-Epi Creatinine Equation (2020): eGFR = 142 X min(SCr/?, 1)? X max(SCr /?, 1)-1.200 X 0.9938Age X 1.012 [if female] Abbreviations/Units: eGFR (estimated glomerular filtration rate) = mL/min/1.73 m2 SCr (standardized serum creatinine) = mg/dL ? = 0.7 (females) or 0.9 (males) ? = -0.241 (females) or -0.302 (males) min = indicates the minimum of SCr/? or 1 max = indicates the maximum of SCr/? or 1 Age = years Performed By: #### E GFR #### [facility] [address] [place] [address] CBC w/ Diffon 04-21-2023 Erythrocyte distribution width (RBC) [Ratio] 13.2 % Normal 11.6-14.8 [facility] Comment on above: Performed By: #### C BC #### [address] [address] Hematocrit (Bld) [Volume fraction] 41.7 % Normal 36.0-46.0 [facility] Comment on above: Performed By: #### C BC #### [address] [address] Hemoglobin (Bld) [Mass/Vol] 14.4 g/dL Normal 12.0-16.0 [facility] Comment on above: Performed By: #### C BC #### [address] [address] MCH (RBC) [Entitic mass] 29.6 pg Normal 27.0-35.0 [facility] Comment on above: Performed By: #### C BC #### [address] [address] MCHC 34.4 % Normal 31.0-37.0 [facility] Comment on above: Performed By: #### C BC #### [address] [address] MCV (RBC) [Entitic vol] 85.9 fL Normal 80.0-100.0 [facility] Comment on above: Performed By: #### C BC #### [address] [address] Platelet 171 x10*3/mcL Normal 150-450 [facility] Comment on above: Performed By: #### C BC #### [address] [address] Platelet mean volume (Bld) [Entitic vol] 9.4 fL Normal 6.7-10.6 [facility] Comment on above: Performed By: #### C BC #### [address] [address] RBC 4.86 x10*6/mcL Normal 3.80-5.20 [facility] Comment on above: Performed By: #### C BC #### [address] [place] [address] WBC 6.1 x10*3/mcL Normal 4.5-11.0 [facility] Comment on above: Performed By: #### C BC #### [address] [address] CMPon 04-21-2023 Albumin [Mass/Vol] 4.3 g/dL Normal 3.2-4.[address] [facility] Comment on above: Performed By: #### C OMP #### [address] [address] Albumin/Globulin [Mass ratio] 1.2 {ratio} Normal 1.1-2.2 [facility] Comment on above: Performed By: #### C OMP #### [address] [address] Alk Phos 65 IU/L Normal 32-91 [facility] Comment on above: Performed By: #### C OMP #### [address] [address] ALT [Catalytic activity/Vol] 23 U/L Normal 14-54 [facility] Comment on above: Performed By: #### C OMP #### [address] [address] Anion gap [Moles/Vol] 10 mmol/L Normal 7-17 [facility] Comment on above: Performed By: #### C OMP #### [address] [address] AST [Catalytic activity/Vol] 25 U/L Normal 15-41 [facility] Comment on above: Performed By: #### C OMP #### [address] [address] Bili Total 0.7 mg/dL Normal 0.3-1.2 [facility] Comment on above: Performed By: #### C OMP #### [address] [address] Calcium [Mass/Vol] 9.5 mg/dL Normal 8.5-10.[address] [facility] Comment on above: Performed By: #### C OMP #### [address] [place] [address] Chloride [Moles/Vol] 109 mmol/L Normal 98-110 [facility] Comment on above: Performed By: #### C OMP #### [address] [place] [address] CO2 [Moles/Vol] 26 mmol/L Normal 22-32 [facility] Comment on above: Performed By: #### C OMP #### [address] [address] Creatinine [Mass/Vol] 1.08 mg/dL High 0.44-1.03 [facility] Comment on above: Performed By: #### C OMP #### [address] [place] [address] Glucose [Mass/Vol] 97 mg/dL Normal 70-[address] [facility] Comment on above: Performed By: #### C OMP #### [address] [address] Potassium [Moles/Vol] 3.9 mmol/L Normal 3.4-4.8 [facility] Comment on above: Performed By: #### C OMP #### [address] [address] Protein [Mass/Vol] 7.8 g/dL Normal 6.5-8.[address] [facility] Comment on above: Performed By: #### C OMP #### [address] [place] [address] Sodium [Moles/Vol] 141 mmol/L Normal 133-[address] [facility] Comment on above: Performed By: #### C OMP #### [address] [place] [address] Urea nitrogen [Mass/Vol] 8 mg/dL Normal 8-26 [facility] Comment on above: Performed By: #### C OMP #### [address] [address] Urea nitrogen/Creatinine [Mass ratio] 7.4 mg/mg Low 10.0-20.0 [facility] Comment on above: Performed By: #### C OMP #### [address] [address] Diff Autoon 04-21-2023 Baso Absolute 0.0 x10*3/mcL Normal 0.0-0.2 [facility] Comment on above: Performed By: #### . Automated Diff #### [address] [address] Basophils/100 WBC (Bld) 0.4 % Normal 0.0-1.5 [facility] Comment on above: Performed By: #### . Automated Diff #### [address] [address] Eos Absolute 0.1 x10*3/mcL Normal 0.0-0.4 [facility] Comment on above: Performed By: #### . Automated Diff #### [address] [address] Eosinophils/100 WBC (Bld) 1.3 % Normal 0.0-5.4 [facility] Comment on above: Performed By: #### . Automated Diff #### [address] [address] Lymph Absolute 2.3 x10*3/mcL Normal 1.0-4.8 [facility] Comment on above: Performed By: #### . Automated Diff #### [address] [address] Lymphocytes/100 WBC (Bld) 37.8 % Normal 27.2-40.8 [facility] Comment on above: Performed By: #### . Automated Diff #### [address] [address] [place] Absolute 0.4 x10*3/mcL Normal 0.1-1.1 [facility] Comment on above: Performed By: #### . Automated Diff #### [address] [address] Monocytes/100 WBC (Bld) 5.8 % Normal 3.7-11.9 [facility] Comment on above: Performed By: #### . Automated Diff #### [address] [address] Neutro Absolute 3.4 x10*3/mcL Normal 1.8-7.[address] [facility] Comment on above: Performed By: #### . Automated Diff #### [address] [address] Neutro Auto 54.7 % Normal 47.2-70.8 [facility] Comment on above: Performed By: #### . Automated Diff #### [address] [address] Lipid Panelon 04-21-2023 Cholesterol in LDL [Mass/Vol] 140 mg/dL High 0-99 [facility] Comment on above: Result Comment: The equation being used in this calculation is LDL = (Chol - HDL) - (Trig / 5) The optimal value of LDL for individual patients may vary. The patient's history of Artherosclerosis and other cardiac risk factors should be considered. Performed By: #### L CM #### [address] [address] Cardiac Risk 4.4 Normal [facility] Comment on above: Result Comment: Men Women 1/2 Average 3.43 3.27 Average 4.97 4.44 2x Average 9.55 7.05 3x Average 23.99 11.04 Performed By: #### L CM #### [address] [address] Cholesterol [Mass/Vol] 198 mg/dL Normal 25-199 [facility] Comment on above: Result Comment: 0 - 17 years of age: Desirable 0-170 Borderline High 170-199 High >=200 18 years and older: Acceptable <200 Borderline High 200-239 High >=240 Performed By: #### L CM #### [address] [address] Cholesterol in HDL [Mass/Vol] 45.2 mg/dL Normal 40.0-60.0 [facility] Comment on above: Performed By: #### L CM #### [facility] [address] [place] [address] Cholesterol in VLDL [Mass/Vol] 13 mg/dL Normal 8-39 [facility] Comment on above: Performed By: #### L CM #### [facility] [address] [place] [address] Triglyceride [Mass/Vol] 64 mg/dL Normal [facility] Comment on above: Result Comment: 0 - 17 years of age: Trig 90 - 129 Borderline High Trig => 130 High 18 years and older: Trig 150 - 199 Borderline High Trig 200 - 499 High Trig =>500 Very High Performed By: #### L CM #### [id number] [place] [address] Family Medicine Office/Clini c Noteon 04-20-2023 Family Medicine Office/Clinic Note Chief Complaint Wellness History of Present Illness Patient is a 27-year-old female who presents the office today for a work physical for [employer]. 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 She is receiving two-step TB test through her work- this was placed today. Mild HLD- was not fasting for previous labs. Vit D insufficiency- has not been taking vit D supp. Tobacco use: Never. Alcohol use: Socially- 2 drinks/month. Diet: No particular diet. Tries to eat healthy- Exercise: Walks on treadmill a few days/week. Dental and ophthalmology visit: Sees dentist 2x/year. Eye doc every 2 years- wears glasses. Pap Smear: Neg 02/2022. Flu Vaccine: due Tetanus Vaccine: due COVID-19 Vaccine: Due Hep C Screen: Negative 04/2020. She is agreeable to updated labs. Does not other questions or concerns for today's visit. Care team: Gynecology: Troy, [facility]DEL. Dermatology: Liliana Bailey- was taking isotretinoin- recently discontinued. Psychiatry: Counseling. Had intake with Dr. Avelar on 01/05 that ended up being cancelled- Pertinent HPI from EMERITA: Presents today to discuss daily headaches occurring for the past month. States that she has a history of headaches since she was a teenager?had work-up including brain imaging in the past which was unremarkable. Her current NIEVES symptoms are similar to her previous HAs. States that her current headaches start at the base of her neck and wraparound her head?feel like a tight band. Slight nausea with these headaches. She takes Excedrin and ibuprofen almost daily. Takes 800 mg of ibuprofen. She denies unilateral headache, pulsatile pain, aura, photophobia associated with these headaches, weakness, visual symptoms. She works at the [employer], not using computer often besides being on her phone. Has been trying to stay more hydrated. +stress, anxiety and depression. Vitamin D insufficiency: Vitamin D level 22 in May?was sent in high-dose supplementation x8 weeks and advised to take daily vitamin D3 thereafter. She does not regularly take vitamin D3. Also expresses concern about losing weight?has been trying to diet and exercise. [1] Review of Systems General Adult ROS Fatigue: No Appetite change: No Weakness: No Cardiovascular Chest pain/pressure: No Palpitations: No Syncope: No EENMT Hoarseness: No Nasal congestion: No Nasal discharge: No Sore_throat: No Gastrointestinal Abdominal pain: No Constipation: No Diarrhea: No Heartburn: No Genitourinary Decreased urine output: No Musculoskeletal Back pain: No Joint pain: No Respiratory Cough: No Shortness_of_breath: No Wheezing: No Physical Exam Vitals & Measurements HR: 81 (Peripheral) BP: 122/72 SpO2: 98 HT: 154 cm WT: 66.6 kg WT: 66.6 kg (Dosing) BMI: 28.08 General: Alert and oriented. Well nourished. No acute distress. Eye: PERRL bilaterally. EOMI bilaterally. Neck: Supple, non-tender. Thyroid nonpalpable and nontender. Lungs: Chest symmetric with no accessory muscle use or abnormal retractions. CTA anteriorly and posteriorly. No wheezing, stridor, rales or rhonchi. Heart: Regular rate and rhythm. No murmur or edema. Radial pulses 2+ and brisk. Abdomen: Soft, non-tender. Musculoskeletal: No visible atrophy, erythema, effusion, edema or ecchymosis. Skin: Warm, dry and pink, no visible rashes or lesions. Neurologic: Awake, alert, and oriented X3, CN II-XII grossly intact. Psychiatric: Cooperative, appropriate mood and affect. Additional Vitals BP Position/Location: Sitting Assessment/Plan 1. Wellness examination Work physical form completed. Continue to receive yearly influenza vaccine and COVID vaccines- will be getting these through her work. Advised getting an updated tetanus booster. Continue yearly dental and eye exams. Labs ordered. Patient was advised to continue healthy lifestyle habits such as eating a well-balanced diet, regular exercise, maintaining a routine sleep schedule and weight/stress management. Patient is compliant with the plan of care and had all questions answered at today?s visit. RTO in one year for annual wellness exam. 2. Physical exam See #1. Orders: Complete Blood Count w/ Differential Comprehensive Metabolic Panel Lipid Panel Time Spent with the Patient I have personally spent [15] minutes on this date, directly related to today's patient visit, including pre and post visit work, for this date of service. Time listed does not include time spent on separately billable services. Physician Comments Patient verbalized understanding of the plan of care and does not have any further questions or concerns at this time. Patient's notes were reviewed prior to today's visit. Updated labs today- Will review labs/diagnostics once available. RTO in 1 year, or sooner with any concerns Problem List/Past Medical History Ongoing Anxiety Anxiety and depression Depression Mild hyperlipidemia Vitamin D insufficiency Historical Pr (more content not included)... 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 Last pap negative 02/18/2022. No gardasil on file. History of Present Illness Pelvic Pain: Yes-cyclically before cycle and w/menses Painful Sex: Yes, positional Abnormal Vaginal Discharge: No Abnormal Vaginal Bleeding: No Vaginal Dryness: No Vaginal Itch: No Vaginal Burning: No Vaginal Odor: No Hot Flashes: Yes Night Sweats: No Breast Lump: No Breast Pain: No Contraception Type: Withdrawal, occ. condoms and nothing at times Age Menses Started: 16 Menstrual Periods: Yes Last Menstrual Period: 01/23/23 Periods Are: Mod Days Between Periods: 1 month- 1 month 1/2 Menstrual Flow Days: 7 Pain With Period: No Periods Regular: Yes Pass Clots: No Miss School/Work Due to Periods: No Sexually Active: Yes Partners in Last 12 Months: 1 Partners in Your Lifetime: 5 Comments 02/24/23 11:26:00 Annual exam. R1M6-stw two year old daughter. In monogamous relationship, declines STI screening. GC/CT negative 04/2022. States no concerns today. Still considering Paragard IUD, has code sheet and pamphlet from prev. discussion. Denies any family hx of breast, ovarian or uterine cancer. Working part-time at the [employer]. Walks for exercise. Review of Systems Head Migraines: No Headaches: No Eyes Corrective Lenses: None Blurred vision: None Ears, Nose, Throat Congestion: No Vertigo: No Sore throat: No Nasal drainage: No Cardio Respiratory Peripheral edema: No Heart Irregularity: No Chest Pain: No Shortness of Breath: No Gastrointestinal Bloating: Yes Reflux/heartburn: No Abdominal Pain: Yes Change in bowel habits: No Urinary Urinary Incontinence: No Urinary frequency: No Nocturia: No Urgency: No Painful urination: No Musculoskeletal Backpain: Yes Muscle aches: No Joint pain: No Integumentary Lesions: No Moles: No Acne: No Hair changes: No PsychoSocial Sleep Problems: No Anxiety: No Suicidal Ideation: No Homicidal Ideation: No Depression: No Hematologic/Lymphatic Lymphadenopathy: No Thromboembolism: No Bruising: No Bleeding tendencies: No Endocrine Abnormal weight gain: No Abnormal weight loss: No Fatigue: No Additional Details Pain Present Physical Exam Vitals & Measurements BP: 116/70 HT: 155 cm WT: 66.9 kg WT: 66.9 kg (Dosing) BMI: 27.85 General: Alert and oriented, well nourished, no acute distress. Eye: Symmetrical, normal size/shape Ears, nose, mouth and throat: Grossly WNL Neck: Supple, non-tender, no lymphadenopathy Thyroid: Normal shape, non-tender, equal bilateral. Lungs: Clear to auscultation, non-labored respiration. Heart: Normal rate, regular rhythm, no murmur, gallops, rubs. Abdomen: Soft, non-tender, non-distended, no masses. Musculoskeletal: Normal range of motion and strength, no tenderness or edema. Skin: Skin is warm, dry and pink, no rashes or lesions. Neurologic: Awake, alert and oriented x3. Breast exam: No fibrocystic changes noted bilaterally, no masses, tenderness, skin changes or nipple discharge. External Genitalia: Normal urethral meatus, no lesions, vulvar skin intact. Genitourinary: Normal vaginal mucosa, no lesions or abnormal discharge, cervix intact without lesions or bleeding. Bimanual exam: Normal sized, non-tender, mobile uterus. No adnexal tenderness or masses. Additional Vitals BP Position/Location: Sitting, Left arm Assessment/Plan 1. Encounter for annual routine gynecological examination Pap due 2024. Start PNV's. Folic acid important to prevent neural tube defects if occurs. Use condoms to protect yourself from sexually transmitted infections. Return to office if you notice vaginal or urinary symptoms, such as burning, discharge, or odor. These symptoms should be evaluated and treated. Do monthly self-breast exams. Call for appointment if you notice skin changes, nipple drainage, or a lump. Exercise at least 3 days weekly for 30 ? 45 minutes per session. Cardiovascular exercise can lower your risk of heart disease. Drink 8 ? 10 glasses of water per day. Avoid drinks that are high in caffeine and sugar. Choose foods high in calcium such as: milk, yogurt, cheese or dark green vegetables. Consider a calcium supplement with vitamin D, if you lack these foods in your diet. Eat a diet that is low in sugar and carbohydrates. Ensure you have low fat protein at every meal. 2. General counseling and advice on contraceptive management Reviewed IUD insertion, MOA and side effects. If desires IUD call day 1 of cycle. Pt. to avoid unprotected SI at least two weeks prior to IUD insertion. Enc. consistent condom use if desiring to prevent . Medical Decision Making Chronic conditions NOT treated during this visit that affected my overall medical decision making: [] Treatment plans discussed but not opted for at this time: [] Prescribed medication that requires intensive monitoring for toxicity: [] I (more content not included)... Normal [facility] Family Medicine Office/Clini c Noteon 12-31-2022 Family Medicine Office/Clinic Note Chief Complaint Med Check History of Present Illness Patient is a very pleasant 27-year-old female who presents to the office today for follow-up. Labs drawn after last office visit reviewed with patient today. Anxiety/depression: Was restarted on Lexapro at her last office visit- no longer taking. She did establish care with counseling services. Has psychiatric intake with Dr. Avelar scheduled for next week. Presents today to discuss daily headaches occurring for the past month. States that she has a history of headaches since she was a teenager?had work-up including brain imaging in the past which was unremarkable. Her current NIEVES symptoms are similar to her previous HAs. States that her current headaches start at the base of her neck and wraparound her head?feel like a tight band. Slight nausea with these headaches. She takes Excedrin and ibuprofen almost daily. Takes 800 mg of ibuprofen. She denies unilateral headache, pulsatile pain, aura, photophobia associated with these headaches, weakness, visual symptoms. She works at the [employer], not using computer often besides being on her phone. Has been trying to stay more hydrated. +stress, anxiety and depression. Vitamin D insufficiency: Vitamin D level 22 in May?was sent in high-dose supplementation x8 weeks and advised to take daily vitamin D3 thereafter. She does not regularly take vitamin D3. Also expresses concern about losing weight?has been trying to diet and exercise. She does not have any other questions or concerns for today's visit. Care team: Gynecology: AUSTIN Simmons. Dermatology: Ballinger- was taking isotretinoin- recently discontinued. Psychiatry: Counseling. Has upcoming intake with Dr. Avelar on 01/05. Pertinent HPI form EMERITA: Anxiety/depression: Was on medication a long time ago- she was on Prozac and Lexapro- does not feel she ever took Lexapro regularly. She is ready to get back on medication. Denies SI/HI. She is interested in counseling/therapy. [1] Review of Systems General Adult ROS Fatigue: No Appetite change: No Weakness: No Cardiovascular Palpitations: No Syncope: No EENMT Nasal congestion: No Nasal discharge: No Gastrointestinal Diarrhea: No Nausea: No Vomiting: No Genitourinary Decreased urine output: No Neurological Headache: Yes Psychiatric Anxiety: Yes Depression: Yes Respiratory Cough: No Shortness_of_breath: No Wheezing: No Physical Exam Vitals & Measurements HR: 79 (Peripheral) BP: 110/72 SpO2: 96 HT: 154 cm WT: 66.9 kg WT: 66.9 kg (Dosing) BMI: 28.21 General: Alert and oriented. Well nourished. No acute distress. Eye: PERRL bilaterally. EOMI bilaterally. Neck: Supple, non-tender. Thyroid nonpalpable and nontender. Lungs: Chest symmetric with no accessory muscle use or abnormal retractions. CTA anteriorly and posteriorly. No wheezing, stridor, rales or rhonchi. Heart: Regular rate and rhythm. No murmur or edema. Radial pulses 2+ and brisk. Musculoskeletal: No visible atrophy, erythema, effusion, edema or ecchymosis. Skin: Warm, dry and pink, no visible rashes or lesions. Neurologic: Awake, alert, and oriented X3, CN II-XII grossly intact. Psychiatric: Cooperative, appropriate mood and affect. Additional Vitals BP Position/Location: Sitting, Left arm Assessment/Plan 1. Tension headache See HPI and PE- Likely component of acute analgesic medication overuse/rebound headaches. Discussed importance of trying to break the cycle/reduce daily use of NSAIDs- Discussed options including prophylactic treatment with a daily medication to reduce headache frequency-patient interested in this option. Will initiate prophylactic treatment with amitriptyline nightly. Discussed the proper use, pros, cons and risks of this medication. Discussed importance of stress management, increased hydration, limiting electronic use. Discussed red flag signs symptoms of headache and when to seek more immediate medical attention?patient verbalizes understanding. Call or RTO if symptoms are not improving, changing or progressing. Ordered: amitriptyline, 1 tabs, Oral, HS (at bedtime), # 30 tabs, 3 Refill(s), Pharmacy: [id number] 2. Anxiety and depression Has upcoming appointment with Dr. Avelar- 3. Vitamin D insufficiency Encouraged patient to begin taking daily vitamin D3 supplementation. Will recheck once taking more consistently. 4. BMI 28.0-28.9,adult BMI 28. TSH WNL July,. Has seen magnetic healer in the past. Diet: Recommended low fat diet, smaller portions, and decreasing fast food to reduce calorie intake. Goal of 1200 calories per day. Goal is 1-2 pound weight loss per week. Physical Activity: Discussed doing moderate exercise, this can include any activity desired including swimming, walking, jogging, biking, etc. Recommend daily walking with increasing duration; goal is 60 min each day, as tolerated, a total of 5-7 days/week. 60-90 minutes of moderate intensity physical (more content not included)... Normal [facility] Quick Strepon 10-02-2022 S. 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 Other Gynecology Office/Clinic Not terry 09-07-2022 Gynecology Office/Clinic Note Chief Complaint Biopsy for C/O persitent vaginal itching/irritation of posterior left labia History of Present Illness Pelvic Pain: No Painful Sex: No Abnormal Vaginal Discharge: No Abnormal Vaginal Bleeding: No Vaginal Dryness: No Vaginal Itch: No Vaginal Burning: No Vaginal Odor: No Hot Flashes: No Night Sweats: No Contraception Type: Condoms Menstrual Periods: Yes Last Menstrual Period: 08/25/22 Periods Are: Moderate Sexually Active: Yes Partners in Last 12 Months: 1 Partners in Your Lifetime: 5 No qualifying data available. 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 Wet mount did reveal some monilia. No evidence of BV or other pathogens seen Additional Vitals No qualifying data available. Assessment/Plan 1. Labial lesion Orders: terconazole topical, 1 supp, VAG, HS (at bedtime), X 3 days, # 3 supp, 1 Refill(s), 09/13/22 12:28:00 EDT, Pharmacy: [id number] Provider Comments We will give trial of Terazol suppositories Follow-up for annual exam and as needed Problem List/Past Medical History Ongoing Anxiety Depression Vitamin D insufficiency Historical Procedure/Surgical History denies Medications Accutane 30 mg oral capsule, 30 mg= 1 caps, Oral, BID, Not taking: Pt states she is not taking this med clindamycin 1% topical gel, See Instructions, 2 refills Lexapro 10 mg oral tablet, 10 mg= 1 tabs, Oral, Daily, 3 refills, Not taking Lotrisone 1%-0.05% topical cream, 1 ranjan, Topical, BID, 1 refills terconazole 80 mg vaginal suppository, 80 mg= 1 supp, VAG, HS (at bedtime), 1 refills Vitamin D3 50,000 intl units oral capsule, 78667 International_unit= 1 caps, Oral, Weekly, Not taking Janiya 3 mg-0.02 mg oral tablet, 1 tabs, Oral, Daily, 11 refills Allergies No Known Allergies Social History Alcohol Past, Beer, 1-2 times per month Exercise Exercise type: None. Home/Environment Lives with Significant other. Living situation: Home/Independent. Alcohol abuse in household: No. Substance abuse in household: No. Smoker in household: No. Feels unsafe at home: No. Safe place to go: Yes. Nutrition/Health Regular, Caffeine intake amount: Rarely coffee. Sleeping concerns: No. Feels highly stressed: No. Sexual Sexually active: Yes. Sexual orientation: Straight or heterosexual. Identifies as female Gender Identity:. Substance Abuse Denies All Tobacco Never (less than 100 in lifetime) Use:. Family History Malignant tumor of lung: Grandmother (M). Electronically signed by Abdoulaye Nassar MD 09/07/22 12:30 EDT Normal [facility] COVID19(IDNOW)on 11-30-2019 COVID19(IDNOW) NOT DETECTED Normal NOT DETECTED [facility] Comment on above: Result Comment: Nega tive results do not preclude SARS-CoV-2 infection and should not be used as the sole basis for treatiment or other patient management. ENHANCED CONTACT, AND DROPLET ISOLATION IS REQUIRED FOR INPATIENTS WITH SARS-CoV-2. Performed By: #### C OVID19(IDNOW) #### [facility] [address] [place] [address] Age at specimen collection = Normal [facility] Comment on above: Performed By: #### C OVID19(IDNOW) #### [address] [place] [address] Hematology05-11-2019 Basophils (Bld) [#/Vol] 0.0 10*3/uL 0.0-0.1 [facility] Basophils/100 WBC (Bld) 0.40 % 0.0-1.0 [facility] Eosinophils (Bld) [#/Vol] 0.10 10*3/uL 0.0-0.5 [facility] Eosinophils/100 WBC (Bld) 1.30 % 0.0-7.0 [facility] Hematocrit (Bld) [Volume fraction] 41.30 % 35.7-47.1 [facility] Hemoglobin (Bld) [Mass/Vol] 14.10 g/dL 11.9-15.7 [facility] Lymphocytes (Bld) [#/Vol] 2.20 10*3/uL 0.9-3.1 [facility] Lymphocytes/100 WBC (Bld) 29.30 % 15.0-46.0 [facility] MCH (RBC) [Entitic mass] 29.90 pg 23.2-33.3 [facility] MCV (RBC) [Entitic vol] 87.50 fL 83.4-101.4 [facility] Monocytes (Bld) [#/Vol] 0.60 10*3/uL 0.3-1.0 [facility] Monocytes/100 WBC (Bld) 8.60 % 4.0-12.0 [facility] Neutrophils (Bld) [#/Vol] 4.50 10*3/uL 1.8-7.9 [facility] Neutrophils/100 WBC (Bld) 60.0 % 43.0-76.0 [facility] Platelets (Bld) [#/Vol] 160.0 10*3/uL 150-400 [facility] RBC (Bld) [#/Vol] 4.720 10*6/uL 3.72-5.24 [facility] WBC (Bld) [#/Vol] 7.40 10*3/uL 3.9-10.3 [facility] Otheron 05-11-2019 Erythrocyte distribution width (RBC) [Ratio] 12.10 % 11.5-15.5 [facility] Immature granulocytes (Bld) [#/Vol] 0.030 10*3/uL 0.00-0.06 [facility] Immature granulocytes/100 WBC (Bld) 0.40 % 0.0-0.5 [facility] MCHC (RBC) [Mass/Vol] 34.10 g/dL 32.0-36.0 [facility] Platelet mean volume (Bld) [Entitic vol] 11.10 fL 8.3-11.5 [facility] COMMENT [facility] <9.0 0.0-8.9 [facility] 303.0 0.0-17.9 [facility] <36.0 0.0-35.9 [facility] 38.9 0.0-17.9 [facility] Thyroidon 05-11-2019 TSH Qn 1.96 m[IU]/L 0.50-4.00 [facility] Basic Metabolic Profon 04-20 (cont.) Normal [facility] Comment on above: Result Comment: Aver age GFR for 20-29 years old: 116 mL/min/1.73sq mChronic Kidney Disease: <60 mL/min/1.73sq mKidney failure: <15 mL/min/1.73sq meGFR calculated using average adult body mass. Additional eGFR calculator available at:http://www.[employer]/multiple_crcl_2012.htm Performed By: #### B JOSEPH, CBC ####[address] [place] [address] Anion gap 3 molar conc 11 mmol/L Normal 9-17 [facility] Comment on above: Performed By: #### B JOSEPH, CBC ####[address] [place] [address] BUN/CRE Ratio 18 Normal 9-20 [facility] Comment on above: Performed By: #### B JOSEPH, CBC ####[address] [place] [address] Calcium mass conc 9.2 mg/dL Normal 8.6-10.4 [facility] Comment on above: Performed By: #### B MP, CBC ####[address] [place] [address] Chloride molar conc 102 mmol/L Normal 98-107 [facility] Comment on above: Performed By: #### B MP, CBC ####[address] [place] [address] CO2 molar conc 26 mmol/L Normal 20-31 [facility] Comment on above: Performed By: #### B MP, CBC ####[address] [place] [address] Creatinine mass conc 0.65 mg/dL Normal 0.50-0.90 [facility] Comment on above: Performed By: #### B MP, CBC ####[address] [place] [address] GFR, Amer >60 Normal >60 [facility] Comment on above: Performed By: #### B MP, CBC ####[address] [place] [address] GFR,non Amer >60 Normal >60 [facility] Comment on above: Performed By: #### B MP, CBC ####[address] [place] [address] Glucose mass conc 89 mg/dL Normal 70-99 [facility] Comment on above: Performed By: #### B MP, CBC ####[address] [place] [address] Potassium molar conc 3.8 mmol/L Normal 3.7-5.3 [facility] Comment on above: Performed By: #### B MP, CBC ####[address] [place] [address] Sodium molar conc 139 mmol/L Normal 135-144 [facility] Comment on above: Performed By: #### B MP, CBC ####[address] [place] [address] Staging: Normal [facility] Comment on above: Result Comment: Stag e 1: Some kidney damage normal GFRStage 2: Mild kidney damage GFR 60-89Stage 3: Moderate kidney damage GFR 30-59Stage 4: Severe kidney damage GFR 15-29Stage 5: Severe kidney damage GFR <15ESRD - chronic treatment by dialysis or transplant Performed By: #### B MP, CBC ####[address] [place] [address] Urea nitrogen mass conc 12 mg/dL Normal 6-20 [facility] Comment on above: Performed By: #### B MP, CBC ####[address] [place] [address] CBCon 04-20-2018 Erythrocyte distribution width Auto Ratio (RBC) 12.1 % Normal 11.8-14.4 [facility] Comment on above: Performed By: #### B MP, CBC ####[address] [place] [address] Hematocrit Auto Volume Fraction (Bld) 42.6 % Normal 36.3-47.1 [facility] Comment on above: Performed By: #### B MP, CBC ####[address] [place] [address] Hemoglobin mass conc (Bld) 14.7 g/dL Normal 11.9-15.1 [facility] Comment on above: Performed By: #### B MP, CBC ####[address] [place] [address] MCH Auto Entitic mass (RBC) 30.2 pg Normal 25.2-33.5 [facility] Comment on above: Performed By: #### B MP, CBC ####[address] [place] [address] MCHC Auto mass conc (RBC) 34.5 g/dL Normal 28.4-34.8 [facility] Comment on above: Performed By: #### B MP, CBC ####[address] [place] [address] MCV Auto Entitic volume (RBC) 87.7 fL Normal 82.6-102.9 [facility] Comment on above: Performed By: #### B MP, CBC ####[address] [place] [address] NRBC Automated 0.0 per 100 WBC Normal 0.0 [facility] Comment on above: Performed By: #### B MP, CBC ####[address] [place] [address] Platelet mean volume Auto Entitic volume (Bld) 10.8 fL Normal 8.1-13.5 [facility] Comment on above: Performed By: #### B MP, CBC ####[address] [place] [address] Platelets Auto #/vol (Bld) 142 10*3/uL Normal 138-453 [facility] Comment on above: Performed By: #### B MP, CBC ####[address] [place] [address] RBC Auto #/vol (Bld) 4.86 10*6/uL Normal 3.95-5.11 [facility] Comment on above: Performed By: #### B MP, CBC ####[address] [place] [address] WBC Auto #/vol (Bld) 6.2 10*3/uL Normal 4.5-13.5 [facility] Comment on above: Performed By: #### B MP, CBC ####[address] [place] [address] HCG, ,Urineon 04-20 HCG.beta subunit ( test) Ql (U) Negative Normal NEG [facility] Comment on above: Result Comment: Spec imens with hCG levels near the threshold of the test (25 mIU/mL) may give a negative or indeterminate result. In such cases, another test should be performed with a new specimen in 48-72 hours. If early is suspected clinically in this setting, correlation with quantitative serum b-hCG level is suggested.[employer] has confirmed the use of plasma for this test. This has not been cleared or approved by the U.S. Food and Drug Administration. The FDA has determined that such clearance is not necessary. Performed By: #### U HCG ####[address] [place] [address] UA w/Reflex Cultureon 12-13- 2018 Acetoacetic Acid,Ur Negative Normal [facility] Comment on above: Performed By: #### U AX, UMICAO ####[address] [place] [address] Bilirubin, SemiQt,Ur Negative Normal [facility] Comment on above: Performed By: #### U AX, UMICAO ####[address] [place] [address] Color YELLOW Normal YEL [facility] Comment on above: Performed By: #### U AX, UMICAO ####[address] [place] [address] Glucose,Semi-qnt,Ur Negative Normal [facility] Comment on above: Performed By: #### U AX, UMICAO ####[address] [place] [address] Hemoglobin, Ur Negative Normal NEG [facility] Comment on above: Performed By: #### U AX, UMICAO ####[address] [place] [address] Leuckocyte Esterase Negative Normal [facility] Comment on above: Performed By: #### U AX, UMICAO ####[address] [place] [address] Nitrite,Ur Negative Normal [facility] Comment on above: Performed By: #### U AX, UMICAO ####[address] [place] [address] PH,Ur 6.0 Normal 5.0-9.0 [facility] Comment on above: Performed By: #### U AX, UMICAO ####[address] [place] [address] Protein, Semi-qnt,Ur Negative Normal NEG [facility] Comment on above: Performed By: #### U AX, UMICAO ####[address] [place] [address] Spec. [place],Ur 1.025 High 1.010-1.020 [facility] Comment on above: Performed By: #### U AX, UMICAO ####[address] [place] [address] Turbidity CLEAR Normal CLEAR [facility] Comment on above: Performed By: #### U AX UMICAO ####[address] [place] [address] Urobilinogen,Ur Normal Normal NORM [facility] Comment on above: Performed By: #### U PALOMO UMICAO ####[address] [place] [address] Comment NOT REPORTED Normal [facility] Comment on above: Performed By: #### U PALOMO UMICAO ####[address] [place] [address] Urinalysis,Microon 8 ----- Normal [facility] Comment on above: Performed By: #### U PALOMO UMICAO ####[address] [place] [address] Bacteria 1+ Abnormal NONE [facility] Comment on above: Performed By: #### U PALOMO UMICAO ####[address] [place] [address] Epithelial cells 2 TO 5 Normal 0-25 [facility] Comment on above: Performed By: #### U PALOMO UMICAO ####[address] [place] [address] RBC Test strip #/vol (U) None Normal 0-2 [facility] Comment on above: Performed By: #### U PALOMO UMICAO ####[address] [place] [address] Urine WBC's 0 TO 2 Normal 0-5 [facility] Comment on above: Performed By: #### U AX, UMICAO ####[address] [place] [address] Amorphous Sediment NOT REPORTED Normal NONE [facility] Comment on above: Performed By: #### U AX, UMICAO ####[address] [place] [address] Casts NOT REPORTED Normal [facility] Comment on above: Performed By: #### U AX, UMICAO ####[address] [place] [address] Crystals NOT REPORTED Normal NONE [facility] Comment on above: Performed By: #### U AX, UMICAO ####[address] [place] [address] Epithelial, Renal NOT REPORTED Normal 0 [facility] Comment on above: Performed By: #### U AX, UMICAO ####[address] [place] [address] Mucus Strands NOT REPORTED Normal NONE [facility] Comment on above: Performed By: #### U AX, UMICAO ####[address] [place] [address] Other Observations NOT REPORTED Normal NREQ [facility] Comment on above: Performed By: #### U AX, UMICAO ####[address] [place] [address] Trichomonas NOT REPORTED Normal NONE [facility] Comment on above: Performed By: #### U AX, UMICAO ####[address] [place] [address] Yeast NOT REPORTED Normal NONE [facility] Comment on above: Performed By: #### U AX, UMICAO ####[address] [place] [address] XR LUMBAR SPINE (2-3 VIEWS)o n 04-20-2018 Protein mass conc EXAMINATION:3 XRAY VIEWS OF THE LUMBAR SPINE04/20/2018 2:10 amCOMPARISON:None.HIST ORY:ORDERING SYSTEM PROVIDED HISTORY: painTECHNOLOGIST PROVIDED HISTORY:painFINDINGS:L umbar vertebral bodies are normal in height and alignment.No evidence offracture. Visualized sacrum is unremarkable. S1 spina bifida occulta present.No significant degenerative changes. Gaseous distention of small bowel loops.IMPRESSION: No acute osseous abnormality.Gaseous distention of small bowel loops.Interpreted by:RIVER Jassoigned by:Phil Messer MD04/20/18inal result Normal [facility] Otheron 03-08-2018 Negative [facility] Otheron 02-03-2018 Negative [facility] Otheron 01-30-2018 Negative [facility] Cardiacon 12-28-2017 Cholesterol [Mass/Vol] 156.0 mg/dL 0-200 [facility] Cholesterol in HDL [Mass/Vol] 54.0 mg/dL 50-100 [facility] Cholesterol in LDL [Mass/Vol] 79.0 mg/dL 0-130 [facility] Triglyceride [Mass/Vol] 116.0 mg/dL 30-150 [facility] Metabolic Panelon 12-28-2017 Albumin [Mass/Vol] 4.70 g/dL 3.7-4.5 [facility] ALP [Catalytic activity/Vol] 83.0 U/L 31-155 [facility] ALT [Catalytic activity/Vol] 15.0 U/L 0-50 [facility] AST [Catalytic activity/Vol] 19.0 U/L 0-40 [facility] Bilirubin [Mass/Vol] 0.70 mg/dL 0.0-1.0 [facility] Protein [Mass/Vol] 7.80 g/dL 6.3-7.9 [facility] Otheron 12-28-2017 Albumin/Globulin [Mass ratio] 1.5 {ratio} 1.0-2.4 [facility] Cholesterol in VLDL [Mass/Vol] 23.0 mg/dL 0-39 [facility] Cholesterol.total/Cho lesterol in HDL [Mass ratio] 3 {ratio} [facility] Negative [facility] CBCon 07-28-2017 Erythrocyte distribution width Auto Ratio (RBC) 11.8 % Normal 11.8-14.4 [facility] Comment on above: Performed By: #### C SEN, CP ####[address] [place] [address] Hematocrit Auto Volume Fraction (Bld) 41.2 % Normal 36.3-47.1 [facility] Comment on above: Performed By: #### C SEN, CP ####[address] [place] [address] Hemoglobin mass conc (Bld) 14.1 g/dL Normal 11.9-15.1 [facility] Comment on above: Performed By: #### C BC, CP ####[address] [place] [address] MCH Auto Entitic mass (RBC) 28.5 pg Normal 25.2-33.5 [facility] Comment on above: Performed By: #### C BC, CP ####[address] [place] [address] MCHC Auto mass conc (RBC) 34.2 g/dL Normal 28.4-34.8 [facility] Comment on above: Performed By: #### C BC, CP ####[address] [place] [address] MCV Auto Entitic volume (RBC) 83.2 fL Normal 82.6-102.9 [facility] Comment on above: Performed By: #### C BC, CP ####[address] [place] [address] NRBC Automated 0.0 per 100 WBC Normal 0.0 [facility] Comment on above: Result Comment: Perf ormed at [address] [place] [id number] Performed By: #### C BC, CP ####[address] [place] [address] Platelet mean volume Auto Entitic volume (Bld) 9.9 fL Normal 8.1-13.5 [facility] Comment on above: Performed By: #### C BC, CP ####[address] [place] [address] Platelets Auto #/vol (Bld) 230 10*3/uL Normal 138-453 [facility] Comment on above: Performed By: #### C BC, CP ####[address] [place] [address] RBC Auto #/vol (Bld) 4.95 10*6/uL Normal 3.95-5.11 [facility] Comment on above: Performed By: #### C BC, CP ####[address] [place] [address] WBC Auto #/vol (Bld) 11.8 10*3/uL Normal 4.5-13.5 [facility] Comment on above: Performed By: #### C SEN, CP ####[address] [place] [address] Comp Metabolic Profon 2017 (cont.) Normal [facility] Comment on above: Result Comment: Aver age GFR for 20-29 years old: 116 mL/min/1.73sq mChronic Kidney Disease: <60 mL/min/1.73sq mKidney failure: <15 mL/min/1.73sq meGFR calculated using average adult body mass. Additional eGFR calculator available at:http://www.[employer]/multiple_crcl_2011.htm Performed By: #### C SEN, CP ####[address] [place] [address] Albumin mass conc 4.5 g/dL Normal 3.5-5.2 [facility] Comment on above: Performed By: #### C SEN, CP ####[address] [place] [address] Albumin/Globulin mass ratio 1.3 {ratio} Normal 1.0-2.5 [facility] Comment on above: Performed By: #### C SEN, CP ####[address] [place] [address] Alkaline Phos 81 U/L Normal 35-104 [facility] Comment on above: Performed By: #### C BC, CP ####[address] [place] [address] ALT enzyme act/vol 23 U/L Normal 5-33 [facility] Comment on above: Performed By: #### C BC, CP ####[address] [place] [address] Anion gap 3 molar conc 13 mmol/L Normal 9-17 [facility] Comment on above: Performed By: #### C SEN, CP ####[address] [place] [address] AST enzyme act/vol 23 U/L Normal <32 [facility] Comment on above: Performed By: #### C BC, CP ####[address] [place] [address] Bilirubin Ql (U) 0.23 mg/dL Low 0.3-1.2 [facility] Comment on above: Performed By: #### C BC, CP ####[address] [place] [address] BUN/CRE Ratio 17 Normal 9-20 [facility] Comment on above: Performed By: #### C BC, CP ####[address] [place] [address] Calcium mass conc 9.5 mg/dL Normal 8.6-10.4 [facility] Comment on above: Performed By: #### C BC, CP ####[address] [place] [address] Chloride molar conc 101 mmol/L Normal 98-107 [facility] Comment on above: Performed By: #### C BC, CP ####[address] [place] [address] CO2 molar conc 23 mmol/L Normal 20-31 [facility] Comment on above: Performed By: #### C BC, CP ####[address] [place] [address] Creatinine mass conc 0.69 mg/dL Normal 0.50-0.90 [facility] Comment on above: Performed By: #### C BC, CP ####[address] [place] [address] GFR, Amer >60 Normal >60 [facility] Comment on above: Performed By: #### C BC, CP ####[address] [place] [address] GFR,non Amer >60 Normal >60 [facility] Comment on above: Performed By: #### C BC, CP ####[address] [place] [address] Glucose mass conc 99 mg/dL Normal 70-99 [facility] Comment on above: Performed By: #### C BC, CP ####[address] [place] [address] Potassium molar conc 3.8 mmol/L Normal 3.7-5.3 [facility] Comment on above: Performed By: #### C BC, CP ####[address] [place] [address] Protein mass conc 8.0 g/dL Normal 6.4-8.3 [facility] Comment on above: Performed By: #### C BC, CP ####[address] [place] [address] Sodium molar conc 137 mmol/L Normal 135-144 [facility] Comment on above: Performed By: #### C BC, CP ####[address] [place] [address] Staging: Normal [facility] Comment on above: Result Comment: Stag e 1: Some kidney damage normal GFRStage 2: Mild kidney damage GFR 60-89Stage 3: Moderate kidney damage GFR 30-59Stage 4: Severe kidney damage GFR 15-29Stage 5: Severe kidney damage GFR <15ESRD - chronic treatment by dialysis or transplantPerformed at [address] [place] [address] Performed By: #### C BC, CP ####[address] [place] [address] Urea nitrogen mass conc 12 mg/dL Normal 6-20 [facility] Comment on above: Performed By: #### C BC, CP ####[address] , [place] [id number] HCG, ,Urineon 07-28 HCG.beta subunit ( test) Ql (U) Negative Normal NEG [facility] Comment on above: Result Comment: Spec imens with hCG levels near the threshold of the test (25 mIU/mL) may give a negative or indeterminate result. In such cases, another test should be performed with a new specimen in 48-72 hours. If early is suspected clinically in this setting, correlation with quantitative serum b-hCG level is suggested.[facility] has confirmed the use of plasma for this test. This has not been cleared or approved by the U.S. Food and Drug Administration. The FDA has determined that such clearance is not necessary.Performed at [address] [place] [address] Performed By: #### U HCG, UA ####[address] [place] [address] Urinalysis, Routineon 2017 Acetoacetic Acid,Ur Negative Normal NEG [facility] Comment on above: Performed By: #### U HCG, UA ####[address] [place] [address] Bilirubin, SemiQt,Ur Negative Normal NEG [facility] Comment on above: Performed By: #### U HCG, UA ####[address] [place] [address] Color YELLOW Normal YEL [facility] Comment on above: Performed By: #### U HCG, UA ####[address] [place] [address] Glucose,Semi-qnt,Ur Negative Normal NEG [facility] Comment on above: Performed By: #### U HCG, UA ####[address] [place] [address] Hemoglobin, Ur Negative Normal NEG [facility] Comment on above: Performed By: #### U HCG, UA ####[address] [place] [address] Leuckocyte Esterase Negative Normal NEG [facility] Comment on above: Result Comment: Perf ormed at [address] [place] [address] Performed By: #### U HCG, UA ####[address] [place] [address] Nitrite,Ur Negative Normal NEG [facility] Comment on above: Performed By: #### U HCG, UA ####[address] [place] [address] PH,Ur 6.0 Normal 5.0-9.0 [facility] Comment on above: Performed By: #### U HCG, UA ####[address] [place] [address] Protein mass conc Negative Normal NEG [facility] Comment on above: Performed By: #### U HCG, UA ####[address] [place] [address] Spec. [place],Ur 1.025 High 1.010-1.020 [facility] Comment on above: Performed By: #### U HCG, UA ####[address] [place] [address] Turbidity CLEAR Normal CLEAR [facility] Comment on above: Performed By: #### U HCG, UA ####[address] [place] [address] Urobilinogen,Ur Normal Normal NORM [facility] Comment on above: Performed By: #### U HCG, UA ####[address] [place] [address] Comment NOT REPORTED Normal [facility] Comment on above: Performed By: #### U HCG, UA ####[address] [place] [address] [facility]acon 06-07-2016 Cholesterol mass conc 175.0 mg/dL 0-200 [facility] Triglyceride mass conc 58.0 mg/dL 30-150 [facility] [email or web address] Hematologyon 06-07-2016 Basophils #/vol (Bld) 0.0 10*3/uL 0.0-0.1 [facility] Basophils/100 WBC (Bld) 0.30 % 0.0-1.0 [facility] [email or web address]. [facility] Eosinophils #/vol (Bld) 0.10 10*3/uL 0.0-0.5 [facility] Eosinophils/100 WBC (Bld) 1.80 % 0.0-7.0 [employer] Hematocrit Volume Fraction (Bld) 40.50 % 35.7-47.1 [facility] [email or web address] [facility] Hemoglobin mass conc (Bld) 13.60 g/dL 11.9-15.7 [facility] Lymphocytes #/vol (Bld) 3.40 10*3/uL 0.9-3.1 [employer] Lymphocytes/100 WBC (Bld) 41.0 % 28.0-42.0 [facility] MCH Entitic mass (RBC) 29.60 pg 23.2-33.3 [facility] MCV Entitic volume (RBC) 88.40 fL 82.0-98.4 [facility] [email or web address] Monocytes #/vol (Bld) 0.60 10*3/uL 0.3-1.0 [facility] Monocytes/100 WBC (Bld) 7.40 % 4.0-12.0 [facility] Neutrophils #/vol (Bld) 4.20 10*3/uL 1.8-7.9 [facility] [employer] [facility] Neutrophils/100 WBC (Bld) 49.50 % 45.6-68.4 [facility] [employer] [facility] Platelets #/vol (Bld) 225.0 10*3/uL 150-400 [facility] [employer] [facility] RBC #/vol (Bld) 4.580 10*6/uL 3.72-5.24 [facility] WBC #/vol (Bld) 8.30 10*3/uL 3.9-10.3 [facility] Metabolic Panelon 06-07-2016 Albumin mass conc 4.40 g/dL 3.7-4.5 [facility] ALP enzyme act/vol 77.0 U/L 31-155 [facility] ALT enzyme act/vol 17.0 U/L 0-50 [facility] AST enzyme act/vol 21.0 U/L 0-40 [facility] Bilirubin mass conc 0.40 mg/dL 0.0-1.0 [facility] [place] Protein mass conc 7.40 g/dL 6.3-7.9 [facility] Otheron 06-07-2016 Albumin/Globulin mass ratio 1.5 {ratio} 1.0-2.4 [facility] Erythrocyte distribution width Ratio (RBC) 11.80 % 11.5-15.5 [facility] MCHC mass conc (RBC) 33.50 g/dL 32.0-36.0 [facility] Platelet mean volume Entitic volume (Bld) 9.0 fL 7.4-10.4 [facility] Negative [facility] Otheron 04-23-2016 Negative [facility] Otheron 03-19-2016 Negative [facility]acon 02-12-2016 Cholesterol mass conc 175.0 mg/dL 0-200 Bl [facility] Triglyceride mass conc 59.0 mg/dL 30-150 [facility] Hematologyon 02-12-2016 Basophils #/vol (Bld) 0.10 10*3/uL 0.0-0.1 B [facility] [place] Basophils/100 WBC (Bld) 0.90 % 0.0-1.0 [facility] Eosinophils #/vol (Bld) 0.10 10*3/uL 0.0-0.5 [facility] Eosinophils/100 WBC (Bld) 1.70 % 0.0-7.0 [facility] Hematocrit Volume Fraction (Bld) 41.60 % 35.7-47.1 [facility] Hemoglobin mass conc (Bld) 14.0 g/dL 11.9-15.7 [facility] Lymphocytes #/vol (Bld) 2.30 10*3/uL 0.9-3.1 [facility] Lymphocytes/100 WBC (Bld) 36.10 % 28.0-42.0 [facility] [employer] [facility] MCH Entitic mass (RBC) 29.40 pg 23.2-33.3 [facility] [employer] MCV Entitic volume (RBC) 87.60 fL 82.0-98.4 [facility] Chideo [facility] Monocytes #/vol (Bld) 0.50 10*3/uL 0.3-1.0 B [facility] Monocytes/100 WBC (Bld) 7.20 % 4.0-12.0 [facility] Neutrophils #/vol (Bld) 3.30 10*3/uL 1.8-7.9 [facility] [employer] [facility] Neutrophils/100 WBC (Bld) 54.10 % 45.6-68.4 [facility] [employer] [facility] Platelets #/vol (Bld) 180.0 10*3/uL 150-400 [facility] [employer] [facility] RBC #/vol (Bld) 4.750 10*6/uL 3.72-5.24 [facility] [employer] [facility] WBC #/vol (Bld) 6.30 10*3/uL 3.9-10.3 [facility] Metabolic Panelon 02-12-2016 Albumin mass conc 4.50 g/dL 3.7-4.5 [facility] [employer] [facility] ALP enzyme act/vol 79.0 U/L 31-155 [facility] [employer] [facility] ALT enzyme act/vol 21.0 U/L 0-50 [facility] AST enzyme act/vol 22.0 U/L 0-40 [facility] Bilirubin mass conc 0.40 mg/dL 0.0-1.0 [facility] [place] Protein mass conc 7.0 g/dL 6.3-7.9 [facility] Otheron 02-12-2016 Albumin/Globulin mass ratio 1.8 {ratio} 1.0-2.4 [facility] [place] Erythrocyte distribution width Ratio (RBC) 12.10 % 11.5-15.5 [facility] MCHC mass conc (RBC) 33.60 g/dL 32.0-36.0 [facility] [place] Platelet mean volume Entitic volume (Bld) 9.70 fL 7.4-10.4 [facility] Negative [facility] Vital Signs Date Time Vital Sign Value Performing Clinician Facility 01-03-2024 11:26-0400 Body height 154.94 cm [facility] 01-03-2024 11:26-0400 Body mass index (BMI) [Ratio] 23.2 kg/m2 [facility] 01-03-2024 11:26-0400 Body temperature 97.8 [degF] [facility] 01-03-2024 11:26-0400 Body weight 55.79 kg [facility] 01-03-2024 11:26-0400 Diastolic blood pressure 68 mm[Hg] [facility] 01-03-2024 11:26-0400 Heart rate 90 /min [facility] 01-03-2024 11:26-0400 SaO2% (BldA) [Mass fraction] 98 % [facility] 01-03-2024 11:26-0400 Systolic blood pressure 110 mm[Hg] [facility] 07-21-2023 10:20-0400 Body height 154.94 cm [facility] 07-21-2023 10:20-0400 Body mass index (BMI) [Ratio] 27.8 kg/m2 [facility] 07-21-2023 10:20-0400 Body weight 66.67 kg [facility] 07-21-2023 10:20-0400 Diastolic blood pressure 78 mm[Hg] [facility] 07-21-2023 10:20-0400 Heart rate 61 /min [facility] 07-21-2023 10:20-0400 SaO2% (BldA) [Mass fraction] 99 % [facility] 07-21-2023 10:20-0400 Systolic blood pressure 112 mm[Hg] [facility] 03-26-2023 11:30-0500 Body height 154.94 cm Jodie Portillo Other [facility] [employer] Other 03-26-2023 11:30-0500 Body mass index (BMI) [Ratio] 27.96 kg/m2 Jodie Portillo Other [employer] Other 03-26-2023 11:30-0500 Body temperature 98.8 [degF] Jodie Portillo Other [employer] Other 03-26-2023 11:30-0500 Body weight 67.13 kg Jodie Portillo Other [employer] Other 03-26-2023 11:30-0500 Diastolic blood pressure 76 mm[Hg] Jodie Portillo Other [employer] Other 03-26-2023 11:30-0500 Respiratory rate 18 /min Jodie Portillo Other [employer] Other 03-26-2023 11:30-0500 SaO2% (BldA) [Mass fraction] 98 % Jodie Portillo Other [employer] Other 11-18-2023 11:30-0500 Systolic blood pressure 118 mm[Hg] Jodie Portillo Other [employer] Other 10-02-2022 12:25-0400 Body height 154.94 cm Deidra Jimenez Other [employer] Other 10-02-2022 12:25-0400 Body mass index (BMI) [Ratio] 27.43 kg/m2 Deidra Jimenez Other [employer] Other 10-02-2022 12:25-0400 Body temperature 97.7 [degF] Deidra Jimenez Other [employer] Other 10-02-2022 12:25-0400 Body weight 65.86 kg Deidra Jimenez Other [employer] Other 10-02-2022 12:25-0400 Respiratory rate 18 /min Deidra Jimenez Other [employer] Other 10-02-2022 12:25-0400 SaO2% (BldA) [Mass fraction] 97 % Deidra Jimenez Other [employer] Other 05-21-2019 10:42-0500 BMI (Body Mass Index) 23.41 kg/m2 Lyric Pérez [employer] [facility] 05-21-2019 10:42-0500 Body Temperature 98.8 [degF] Lyric Rene [facility] [employer] [facility] 05-21-2019 10:42-0500 Body weight 58.06 kg Lyric Pérez [employer] 05-21-2019 10:42-0500 BP Diastolic 68 mm[Hg] Lyric Pérez [facility] 05-21-2019 10:42-0500 BP Systolic 94 mm[Hg] Lyric Rene [facility] 05-21-2019 10:42-0500 BSA (Body Surface Area) 1.59 m2 Lyric Rene [place] 05-21-2019 10:42-0500 Height 157.48 cm Lyric [employer] 05-21-2019 10:42-0500 Pulse (Heart Rate) 90 /min Lyric Villarreal [facility] 05-11-2019 14:48-0500 BMI (Body Mass Index) 22.95 kg/m2 [facility] 05-11-2019 14:48-0500 Body Temperature 98.8 [degF] [facility] 05-11-2019 14:48-0500 Body weight 56.93 kg [facility] Faustinncjose elias Clemente [employer] 05-11-2019 14:48-0500 BP Diastolic 66 mm[Hg] [facility] Faustinncjose elias Clemente [employer] 05-11-2019 14:48-0500 BP Systolic 110 mm[Hg] [facility] Faustinncjose elias Clemente [employer] 05-11-2019 14:48-0500 BSA (Body Surface Area) 1.58 m2 [facility] Rene [place] 05-11-2019 14:48-0500 Height 157.48 cm [facility]ima Faustinncjose elias Clemente [employer] 05-11-2019 14:48-0500 Pulse (Heart Rate) 72 /min [facility] Faustinnchard Nani lowry [facility] 04-27-2019 15:18-0500 BMI (Body Mass Index) 23.52 kg/m2 Lyric Pérez [employer] 04-27-2019 15:18-0500 Body Temperature 98.9 [degF] Lyric Rene Nuzzel 04-27-2019 15:18-0500 Body weight 56.47 kg Lyric Péerz [facility] 04-27-2019 15:18-0500 BP Diastolic 60 mm[Hg] Lyric Pérez [facility] 04-27-2019 15:18-0500 BP Systolic 112 mm[Hg] Lyric Pérez [facility] 04-27-2019 15:18-0500 BSA (Body Surface Area) 1.56 m2 Lyric Pérez [facility] 04-27-2019 15:18-0500 Height 154.94 cm Lyric Pérez [facility] 04-27-2019 15:18-0500 Pulse (Heart Rate) 80 /min Lyric rouse[employer] 04-09-2019 13:38-0500 BMI (Body Mass Index) 22.77 kg/m2 Lyric Pérez [facility] 04-09-2019 13:38-0500 Body Temperature 99.4 [degF] Lyric [employer] 04-09-2019 13:38-0500 Body weight 54.66 kg Lyric Pérez [facility] 04-09-2019 13:38-0500 BP Diastolic 70 mm[Hg] Lyric Pérez [facility] 04-09-2019 13:38-0500 BP Systolic 120 mm[Hg] Lyric Pérez [facility] 04-09-2019 13:38-0500 BSA (Body Surface Area) 1.53 m2 Lyric [employer] 04-09-2019 13:38-0500 Height 154.94 cm Lyric [employer] 04-09-2019 13:38-0500 Pulse (Heart Rate) 82 /min Lyric Villarreal [employer] 02-06-2019 16:41-0400 BMI (Body Mass Index) 22.77 kg/m2 Lyric Pérez [facility] 02-06-2019 16:41-0400 Body Temperature 98.8 [degF] Lyric Pérez Jajah 02-06-2019 16:41-0400 Body weight 54.66 kg Lyric Pérez [facility] 02-06-2019 16:41-0400 BP Diastolic 70 mm[Hg] Lyric Pérez [facility] 02-06-2019 16:41-0400 BP Systolic 112 mm[Hg] Lyric Pérez [facility] 02-06-2019 16:41-0400 BSA (Body Surface Area) 1.53 m2 Lyric Pérez [facility] 02-06-2019 16:41-0400 Height 154.94 cm Lyric Pérez [facility] 02-06-2019 16:41-0400 Pulse (Heart Rate) 72 /min Lyric Kimhard Cherelle [employer] 10-31-2018 16:58-0400 BMI (Body Mass Index) 23.43 kg/m2 [facility] Silver [facility] 10-31-2018 16:58-0400 Body weight 56.25 kg [facility] Cathcart Jajah 10-31-2018 16:58-0400 BP Diastolic 60 mm[Hg] [facility] Camacho [facility] 10-31-2018 16:58-0400 BP Systolic 112 mm[Hg] Hima Camacho [employer] 10-31-2018 16:58-0400 BSA (Body Surface Area) 1.56 m2 [facility] Rene [facility] 10-31-2018 16:58-0400 Height 154.94 cm Hima Clemente [employer] 10-31-2018 16:58-0400 Pulse (Heart Rate) 72 /min [facility] ma [facility] 10-31-2018 16:58-0400 Weight 56.25 kg [facility] Camacho [facility] 08-28-2018 15:49-0400 BMI (Body Mass Index) 22.67 kg/m2 [facility] Rene [facility] 08-28-2018 15:49-0400 Body Temperature 98.7 [degF] [facility] chawla [facility] 08-28-2018 15:49-0400 Body weight 54.43 kg [facility] Camacho [facility] 08-28-2018 15:49-0400 BP Diastolic 60 mm[Hg] [facility] Clemente [employer] 08-28-2018 15:49-0400 BP Systolic 120 mm[Hg] [facility]ima Clemente [employer] 08-28-2018 15:49-0400 BSA (Body Surface Area) 1.53 m2 [facility] Rene [facility] 08-28-2018 15:49-0400 Height 154.94 cm Hima Clemente [employer] 08-28-2018 15:49-0400 Pulse (Heart Rate) 66 /min [facility] Cardoza [facility] 08-28-2018 15:49-0400 Weight 54.43 kg [facility] Clemente [employer] 02-09-2018 12:10-0400 BMI (Body Mass Index) 23.78 kg/m2 [facility] Rene [facility] 02-09-2018 12:10-0400 Body Temperature 98.1 [degF] [facility] Andrade Wanelo 02-09-2018 12:10-0400 Body weight 58.97 kg Hima Clemente [employer] 02-09-2018 12:10-0400 BP Diastolic 80 mm[Hg] [facility] Clemente [employer] 02-09-2018 12:10-0400 BP Systolic 104 mm[Hg] Hima Clemente [employer] 02-09-2018 12:10-0400 BSA (Body Surface Area) 1.61 m2 [facility] Rene [facility] 02-09-2018 12:10-0400 Height 157.48 cm [facility]ima Clemente [employer] 02-09-2018 12:10-0400 Pulse (Heart Rate) 64 /min [facility] Cardoza Veoh 02-09-2018 12:10-0400 Weight 58.97 kg [facility]ima Clemente [employer] 01-11-2018 15:19-0400 BMI (Body Mass Index) 23.32 kg/m2 [facility] Rene [facility] 01-11-2018 15:19-0400 Body weight 57.83 kg Hima Clemente [employer] 01-11-2018 15:19-0400 BP Diastolic 68 mm[Hg] [facility] Clemente [employer] 01-11-2018 15:19-0400 BP Systolic 106 mm[Hg] [facility] Clemente [employer] 01-11-2018 15:19-0400 BSA (Body Surface Area) 1.59 m2 [facility] Rene [facility] 01-11-2018 15:19-0400 Height 157.48 cm [facility]ima Clemente [employer] 01-11-2018 15:19-0400 Pulse (Heart Rate) 76 /min Hima ma [facility] 01-11-2018 15:19-0400 Weight 57.83 kg [facility] Clemente [employer] 08-01-2017 09:57-0400 BMI (Body Mass Index) 23.59 kg/m2 [facility] Rene [facility] 08-01-2017 09:57-0400 Body weight 58.51 kg [facility]ima Clemente [employer] 08-01-2017 09:57-0400 BP Diastolic 60 mm[Hg] [facility] Clemente [employer] 08-01-2017 09:57-0400 BP Systolic 94 mm[Hg] [facility] Clemente [employer] 08-01-2017 09:57-0400 BSA (Body Surface Area) 1.6 m2 [facility] Rene [facility] 08-01-2017 09:57-0400 Height 157.48 cm [facility]ima Rene Nuzzel 08-01-2017 09:57-0400 Pulse (Heart Rate) 80 /min [facility] Cardoza Veoh 08-01-2017 09:57-0400 Weight 58.51 kg [facility]ima Clemente [employer] 01-13-2017 12:02-0400 BMI (Body Mass Index) 22.59 kg/m2 [facility] Rene [facility] 01-13-2017 12:02-0400 Body weight 56.02 kg Hima Clemente [employer] 01-13-2017 12:02-0400 BP Diastolic 76 mm[Hg] [facility] Clemente [employer] 01-13-2017 12:02-0400 BP Systolic 122 mm[Hg] Hima VillarrealMy 1% 01-13-2017 12:02-0400 BSA (Body Surface Area) 1.57 m2 [facility] Rene [facility] 01-13-2017 12:02-0400 Height 157.48 cm Hima Clemente [employer] 01-13-2017 12:02-0400 Pulse (Heart Rate) 72 /min [facility] Cardoza Veoh 01-13-2017 12:02-0400 Weight 56.02 kg [facility] Clemente [employer] 10-29-2016 16:57-0400 BMI (Body Mass Index) 22.13 kg/m2 [facility] Rene [facility] 10-29-2016 16:57-0400 Body weight 54.89 kg Hima Clemente [employer] 10-29-2016 16:57-0400 BP Diastolic 60 mm[Hg] [facility]ima Clemente [employer] 10-29-2016 16:57-0400 BP Systolic 104 mm[Hg] Hima Clemente [employer] 10-29-2016 16:57-0400 BSA (Body Surface Area) 1.55 m2 [facility] Rene [facility] 10-29-2016 16:57-0400 Height 157.48 cm Hima Clemente [employer] 10-29-2016 16:57-0400 Pulse (Heart Rate) 68 /min Hima ma [facility] 10-29-2016 16:57-0400 Weight 54.89 kg Hima Clemente [employer] 01-28-2016 17:46-0400 BMI (Body Mass Index) 21.67 kg/m2 [facility] Rene [facility] 01-28-2016 17:46-0400 Body weight 53.75 kg Hima Clemente [employer] 01-28-2016 17:46-0400 BP Diastolic 64 mm[Hg] [facility]ima Clemente [employer] 01-28-2016 17:46-0400 BP Systolic 94 mm[Hg] [facility] Clemente [employer] 01-28-2016 17:46-0400 BSA (Body Surface Area) 1.53 m2 [facility] Rene [facility] 01-28-2016 17:46-0400 Height 157.48 cm Hima VillareralMy 1% 01-28-2016 17:46-0400 Pulse (Heart Rate) 64 /min [facility]ima Cardoza Veoh 01-28-2016 17:46-0400 Weight 53.75 kg Hima Clemente [employer] 05-30-2015 16:50-0500 BMI (Body Mass Index) 21.22 kg/m2 [facility] Rene [facility] 05-30-2015 16:50-0500 Body Temperature 98 [degF] Hima Andrade Wanelo 05-30-2015 16:50-0500 Body weight 52.62 kg Hima Clemente [employer] 05-30-2015 16:50-0500 BP Diastolic 64 mm[Hg] [facility] Clemente [employer] 05-30-2015 16:50-0500 BP Systolic 90 mm[Hg] Hima VillarrealMy 1% 05-30-2015 16:50-0500 BSA (Body Surface Area) 1.52 m2 [facility] Rene [facility] 05-30-2015 16:50-0500 Height 157.48 cm Hima Clemente [employer] 05-30-2015 16:50-0500 Pulse (Heart Rate) 92 /min Hima Cardoza Veoh 05-30-2015 16:50-0500 Weight 52.62 kg Hima Clemente [employer] 04-08-2015 16:01-0500 BMI (Body Mass Index) 21.28 kg/m2 [facility] Rene [facility] 04-08-2015 16:01-0500 Body Temperature 98.4 [degF] Hima Villarreal Wanelo 04-08-2015 16:01-0500 Body weight 51.94 kg Hima Clemente [employer] 04-08-2015 16:01-0500 BP Diastolic 84 mm[Hg] [facility] Clemente [employer] 04-08-2015 16:01-0500 BP Systolic 118 mm[Hg] [facility]ima Clemente [employer] 04-08-2015 16:01-0500 BSA (Body Surface Area) 1.5 m2 [facility] Rene [facility] 04-08-2015 16:01-0500 Height 156.21 cm Hima Rene Nuzzel 04-08-2015 16:01-0500 Pulse (Heart Rate) 72 /min Hima Cardoza [facility] 04-08-2015 16:01-0500 Weight 51.94 kg Hima Clemente [employer] Encounters Encounter Date Encounter Type Care Provider Facility Start: 01-03-2024 End: 01-03-2024 ambulatory [facility] Work Phone: Start: 01-03-2024 End: 01-03-2024 [facility] encounter procedure [facility] Work Phone: Start: 08-10-2023 End: 08-11-2023 ambulatory Ana Simmons APRN-[employer]DEL Facility:[facility] Start: 07-21-2023 End: 07-21-2023 ambulatory [facility] Work Phone: Start: 07-21-2023 End: 07-21-2023 Patient encounter procedure [facility] Work Phone: Start: 06-28-2023 ambulatory Susana Morfin PA-C Facility:[facility] Start: 06-27-2023 End: 06-28-2023 ambulatory Susana Morfin PA-C Facility:[facility] Start: 06-22-2023 End: 06-23-2023 ambulatory Ana Maryse Troy MONTERROSON-[employer] Facility: [facility] Start: 05-17-2023 End: 05-18-2023 ambulatory Susana Morfin PA-C Facility:[facility] Start: 04-21-2023 End: 04-22-2023 ambulatory Susana Morfin PA-C Facility:[facility] Start: 04-20-2023 End: 04-21-2023 ambulatory Gabino MARIE-C Facility:[facility] Start: 03-26-2023 End: 03-26-2023 ambulatory Jodie Portillo Other [employer] Other Start: 03-26-2023 Office outpatient visit 15 minutes [facility] Start: 02-24-2023 End: 02-25-2023 ambulatory Gabino DE PAZC Facility:[facility] Start: 02-23-2023 End: 02-24-2023 ambulatory Gabino MARIE-C [facility] Start: 02-04-2023 ambulatory Gabino DE PAZC Facility:[facility] Start: 01-05-2023 ambulatory Gabino DE PAZC Facility[facility] Start: 12-31-2022 End: 01-01-2023 ambulatory Gabino MARIE-C Facility:[facility] Start: 12-20-2022 ambulatory Gabino DE PAZC Facility:[facility] Start: 12-15-2022 ambulatory Gabino MARIE-C Facility:[facility] Start: 11-22-2022 End: 11-23-2022 ambulatory Gabino DE PAZC [facility] Start: 10-12-2022 End: 10-13-2022 ambulatory Gabino Soni PA-C [facility] Start: 10-02-2022 End: 10-02-2022 ambulatory Deidra Jimenez Other [employer] Other Start: 10-02-2022 Office outpatient ne w 20 minutes Deidra Jimenez [facility] Start: 09-29-2022 ambulatory Gabino Soni PA-C Facility[facility] Start: 09-27-2022 ambulatory Gabino Soni PA-C [facility] Start: 09-16-2022 End: 09-17-2022 ambulatory Gabino Soni PA-C [facility] Start: 09-14-2022 ambulatory Gabino Soni PA-C Facility:[facility] Start: 09-07-2022 End: 09-08-2022 ambulatory Gabino Soni PA-C [facility] Start: 05-21-2019 Office outpatient visit 15 minutes Lyric Pérez Other [facility] Start: 05-11-2019 Lab [facility] Other [facility] Start: 05-11-2019 Office outpatient visit 15 minutes Lyric Pérez Other [facility] Start: 04-27-2019 Office outpatient visit 15 minutes Lyric Pérez Other [facility] Start: 04-09-2019 Office outpatient visit 15 minutes Lyric Pérez Other [facility] Start: 02-06-2019 Office outpatient visit 15 minutes Lyric Pérez Other [facility] Start: 10-31-2018 Routine general medical examination at a health care facility [facility] Start: 10-31-2018 Lab [facility] Other [facility] Start: 10-31-2018 Office outpatient visit 15 minutes Cheryl Dobbins Other [facility] Start: 08-28-2018 Lab [facility] Other [facility] Start: 08-28-2018 Office outpatient visit 15 minutes Cheryl Dobbins Other [facility] Start: 04-20-2018 End: 04-20-2018 Emergency department patient visit [facility] Start: 03-08-2018 Lab Enrique Sanchezbenjaminu yosis Other [facility] Start: 03-08-2018 Office outpatient visit 15 minutes Vinita José Lius Other [facility] Start: 02-09-2018 Office outpatient visit 15 minutes Lyric Pérez Other [facility] Start: 02-03-2018 End: 02-03-2018 Lab Enrique José Luis Other [facility] Start: 01-30-2018 Lab Enrique Danielsusy sy Other [facility] Start: 01-30-2018 Office outpatient visit 15 minutes Vinita José Luis Other [facility] Start: 01-11-2018 Office outpatient visit 15 minutes Lyric Pérez Other [facility] Start: 12-28-2017 Office outpatient visit 15 minutes Vinita José Luis Other [facility] Start: 12-28-2017 Lab Enrique Sanchezbenjaminu yossi Other [facility] Start: 08-01-2017 Office outpatient visit 25 minutes Lyric Pérez Other [facility] Start: 07-28-2017 End: 07-28-2017 Emergency department patient visit [facility] Start: 01-13-2017 Office outpatient visit 15 minutes Rachel Ly Other [facility] Start: 10-29-2016 Office outpatient visit 15 minutes Rachel Ly Other [facility] Start: 06-07-2016 Office outpatient visit 15 minutes Enrique José Luis Other [facility] Start: 04-23-2016 Office outpatient visit 15 minutes Enrique José Luis Other [facility] Start: 03-19-2016 Office outpatient visit 15 minutes Enrique José Luis Other [facility] Start: 02-12-2016 Office outpatient ne w 20 minutes Enrique José Luis Other [facility] Start: 01-28-2016 Office outpatient visit 15 minutes Lyric Pérez Other [facility] Start: 05-30-2015 Office outpatient visit 15 minutes Lyric Pérez Other [facility] Start: 04-08-2015 Office outpatient ne w 20 minutes Lyric Pérez Other [facility] Office Procedures Date Procedure Procedure Detail Performing Clinician Start: 01-03-2024 Quick Strep (POC) Start: 05-11-2019 Assay of thyroid sti mulating hormone tsh Lyric Pérez Start: 05-11-2019 Blood count complete auto&auto difrntl wbc Lyric Pérez Start: 05-11-2019 Doc meds verified w/pt or re [facility] Start: 05-11-2019 EBV Complete Series [place] adalgisa Pérez Start: 04-27-2019 Doc meds verified w/pt or re Lyric Pérez Start: 04-09-2019 Doc meds verified w/pt or re Lyric Pérez Start: 02-06-2019 Doc meds verified w/pt or re Lyric Pérez Start: 10-31-2018 Doc meds verified w/pt or re [facility] Start: 10-31-2018 Urnls dip stick/tabl et rgnt auto w/o microscopy [facility] Cathcart Start: 08-28-2018 Ceftriaxone sodium injection [facility] Adrianne Start: 08-28-2018 Doc meds verified w/pt or re [facility] Cathcart Start: 08-28-2018 Urnls dip stick/tabl et rgnt auto w/o microscopy [facility] Start: 04-20-2018 Radex spine lumbosac ral 2/3 views TALON CARONE Start: 04-20-2018 Basic metabolic pane l calcium total TALON CARONE Start: 04-20-2018 Blood count complete automated TALON CARONE Start: 04-20-2018 Microscopic urinalysis TALON CARONE Start: 04-20-2018 Urine test visual color cmprsn meths TALON CARONE Start: 04-20-2018 URINE RT REFLEX TO CULTURE TALON CARONE Start: 03-08-2018 Doc meds verified w/pt or re [facility] Start: 03-08-2018 Urine test visual color cmprsn meths [facility] Adrianne Start: 02-09-2018 Doc meds verified w/pt or re [facility] Start: 02-03-2018 Urine test visual color cmprsn meths [facility] Start: 01-30-2018 Doc meds verified w/pt or re [facility] Adrianne Start: 01-30-2018 Urine test visual color cmprsn meths [facility] Adrianne Start: 01-11-2018 Doc meds verified w/pt or re [facility] Start: 12-28-2017 Doc meds verified w/pt or re [facility] Start: 12-28-2017 Gonadotropin chorion ic qualitative [facility] Start: 12-28-2017 Hepatic function panel [facility] Start: 12-28-2017 Lipid panel [facility] Start: 07-28-2017 CBC [facility] Start: 07-28-2017 Comprehensive metabo lic 2000 panel - Serum or Plasma [facility] Start: 07-28-2017 , URINE HEATHE R [facility] Start: 07-28-2017 Urinalysis [facility] Start: 01-13-2017 Doc meds verified w/pt or re [facility] Start: 06-07-2016 Assay of triglycerides [facility] Start: 06-07-2016 Blood count complete auto&auto difrntl wbc [facility] Start: 06-07-2016 Cholesterol serum/wh ole blood total [facility] Start: 06-07-2016 Gonadotropin chorion ic qualitative [facility] Start: 06-07-2016 Hepatic function panel [facility] Start: 04-23-2016 Urine test visual color cmprsn meths [facility] Start: 03-19-2016 Urine test visual color cmprsn meths [facility] Start: 02-12-2016 Assay of triglycerides [facility] Start: 02-12-2016 Blood count complete auto&auto difrntl wbc [facility] Start: 02-12-2016 Cholesterol serum/wh ole blood total [facility] Start: 02-12-2016 Gonadotropin chorion ic qualitative [facility] Start: 02-12-2016 Hepatic function panel [facility] Plan of Treatment Date Care Activity Detail Author Start: 03-07-2024 ambulatory Ambulatory Facility: [facility] Start: 05-11-2019 Blood count complete auto&auto difrntl wbc CBC w diff [facility] Start: 05-11-2019 TSH Qn TSH [facility] Start: 11-02-2018 Blood count complete automated CBC & PLATELET COUNT; AUTOMATED [facility] Start: 11-02-2018 Comprehensive metabolic panel Comprehensive metabolic panel [facility] Start: 11-02-2018 Gonadotropin chorionic qualitative SERUM [facility] Start: 11-02-2018 Hemoglobin A1c/Hemoglobin.total mass fraction (Bld) Hgb A1c [facility] Start: 11-02-2018 Lipid panel Lipid panel [facility] Start: 11-02-2018 Thyrotropin Qn TSH (thyroid stimulating hormone) [facility] Start: 11-02-2018 Urnls dip stick/tablet rgnt auto w/o microscopy UA [facility] Estradiol (E2) [Mass/volume] in Serum or Plasma [facility] Estrogen [Mass/volum e] in Serum or Plasma [facility] Holter monitor study [facility] Lutropin [Units/volu me] in Serum or Plasma [facility] Progesterone [Mass/volume] in Serum or Plasma [facility] XR Cervical spine 5 Views [facility] XR Thoracic and lumb ar spine Views for scoliosis [facility] Payers Date Payer Category Payer Unknown 2015 Unknown [id number] 2014 Unknown [id number] 1996 Unknown [id number] 2.16.8 40.1.102837.3.579.2.173 1996 Unknown [id number] 2.16.8 40.1.912344.3.579.2.173 1996 Unknown [id number] 2.16. 840.1.695966.3.579.2.196 1996 Unknown [id number] 2.16. 840.1.327501.3.579.2.196 1996 Unknown [id number] 2.16. 840.1.003527.3.579.2.196 1996 Unknown [id number] 2.16. 840.1.539267.3.579.2.196 1996 Unknown [id number] 2.16. 840.1.128054.3.579.2.196 1996 Unknown [id number] 2.16. 840.1.700747.3.579.2.196 1996 Unknown [id number] 2.16. 840.1.473947.3.579.2.196 1996 Unknown [id number] 2.16. 840.1.783688.3.579.2.196 1996 Unknown [id number] 2.16. 840.1.130202.3.579.2.196 1996 Unknown [id number] 2.16. 840.1.804133.3.579.2.196 1996 Unknown [id number] 2.16. 840.1.592451.3.579.2.196 1996 Unknown [id number] 2.16. 840.1.831603.3.579.2.196 1996 Unknown [id number] 2.16. 840.1.674496.3.579.2.196 1996 Unknown [id number] 2.16. 840.1.346342.3.579.2.196 1996 Unknown [id number] 2.16. 840.1.530702.3.579.2.196 1996 Unknown [id number] 2.16. 840.1.787248.3.579.2.196 1996 Unknown [id number] 2.16. 840.1.214416.3.579.2.196 1996 Unknown [id number] 2.16. 840.1.938772.3.579.2.196 1996 Unknown [id number] 2.16. 840.1.409157.3.579.2.196 1996 Unknown [id number] 2.16. 840.1.049869.3.579.2.196 1996 Unknown [id number] 2.16. 840.1.107541.3.579.2.196 1996 Unknown [id number] 2.16. 840.1.566430.3.579.2.196 1996 Unknown [id number] 2.16. 840.1.888773.3.579.2.196 1996 Unknown [id number] 2.16. 840.1.953122.3.579.2.196 1996 Unknown [id number] 2.16. 840.1.043807.3.579.2.196 Medicaid [id number] 2. 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 I do not appreciate dental abscess or fracture, however, will treat today with antibiotic due to amount of pain to cover for infection. Reviewed allergies and recent antibiotic use with patient. Advised patient to take medication as directed, finish entire course, take with food and plenty of water. Encouraged warm salt water gargles. Ice to swelling and/or warm compresses prn for pain, ice for 10-20 minutes at a time, ensure thin cloth barrier between skin. Continue using Tylenol/Motrin as neeed as directed for pain. Patient plans on contact dentist Tuesday when office opens. Discussed S/S of worsening infection. Seek re-evaluation if no improvement after 48 hours on ATB. Immediate eval by ER if fever, severe tooth pain, severe headache, difficulty moving jaw, neck pain/stiffness, worsening swelling or redness, or any other new/concerning smyptoms. 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 Breast self-awareness is knowing how your breasts normally look and feel. Your breasts change as you go through different stages of your life. So it's important to learn what is normal for your breasts. Breast self-awareness helps you notice any changes in your breasts right away. Report any changes to your healthcare provider. Why is breast self-awareness important? Many experts now say that women should focus on breast self-awareness instead of doing a breast self-examination (BSE). These experts include the [place] [employer], the U.S. Preventive Services Task Force, and the [place] [employer]. Some experts even advise not teaching women to do a BSE. That's because research hasn't shown a clear benefit to doing BSEs. Breast self-awareness is different than a BSE. Breast self-awareness isn't about following a certain method and schedule. It's about knowing what's normal for your breasts. That way you can notice even small changes right away. If you see any changes, report them to your healthcare provider. Changes to look for Call your healthcare provider if you find any changes in your breasts that concern you. These changes may include: ? A lump ? Nipple discharge other than breastmilk, especially a bloody discharge ? Swelling ? A change in size or shape ? Skin irritation, such as redness, thickening, or dimpling of the skin ? Swollen lymph nodes in the armpit ? Nipple problems, such as pain or redness If you find a lump Contact your provider if you find lumpiness in one breast, feel something different in the tissue, or feel a definite lump. Sometimes lumpiness may be due to menstrual changes. But there may be reason for concern. Your provider may want to see you right away if you have: ? Nipple discharge that is bloody ? Skin changes on your breast, such as dimpling or puckering It's normal to be upset if you find a lump. But it's important to contact your provider right away. Remember that most breast lumps are benign. This means they are not cancer. ? [id number] [facility]. [address] [place] [address]. All rights reserved. This information is not intended as a substitute for professional medical care. Always follow your healthcare professional's instructions. [facility] Evaluation note 10-02-2022 Note Date & Type Note Facility 10-02-2022 Evaluation note Encounter Date Diagnosis Assessment Notes September, Sore throat (ICD-10 - J02.9) September, Acute sinusitis, recurrence not specified, unspecified location (ICD-10 - J01.90) Sinusitis home care material was printed Drink plenty fluids, get plenty of rest. Take the prednisone as prescribed until gone. Use the Flonase inhaler and to your symptoms improved. Take Sudafed for congestion. 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 Note Date & Type Note Facility Evaluation note Diagnosis Onset Date Acquired scoliosis acute Daily headache acute Fatigue acute Hot flashes acute Irregular menstrual cycle ac hans Neck pain acute [facility] Work Phone: Evaluation note Note Date & Type Note Facility Evaluation note Diagnosis Onset Date Dizziness acute Heart palpitations acute [facility] Work Phone: Summary Purpose Family History Relationship Condition Age at Onset Recorded Date/T kacey father Hypertension Unknown Advance Directives Advance Directive Response Recorded Date/ Time Advance Directives No July 20 8:38am Chief Complaint and Reason for Visit Chief Complaint Establish Reason for Visit Acquired scoliosis Daily headache Fatigue Hot flashes Irregular menstrual cycle Neck pain Chief Complaint tonsil stones, fatig ue Reason for Visit Dizziness Heart palpitations Additional Source Comments INFORMATION SOURCE (unrecogn ized section and content) DATE CREATED AUTHOR [facility] DATE CREATED AUTHOR AUTHOR'S ORGANIZ ATION 12/02/2019 [facility] DATE CREATED AUTHOR AUTHOR'S ORGANIZ ATION 08/12/2023 [facility] REASON FOR VISIT (unrecogniz ed section and content) head cold, sore throat x 2 d aysPOSS TOOTH INFECTION Care Teams (unrecognized sec tion and content) Team Status: Active Member Role Status Dates Evelyn Vu APRN SHOOK SPLICER-C Primary Care Provider Active Team Status: Inactive Member Role Status Dates Evelyn Vu APRN NP-C Primary Care Provider, Attending Provider Active Start: July 21, 2023 End: July 21, 2023 Team Status: Inactive Member Role Status Dates Evelyn Vu APRN NP-Debora Primary Care Provider, Attending Provider Active Start: January 03, 2024 End: January 03, 2024 Goals (unrecognized section and content) Goals may be documented in a n alternate section FOR RECORDS PERTAINING TO PATIENTS WHO ARE OR HAVE BEEN ENROLLED IN A CHEMICAL DEPENDENCY/SUBSTANCEABUSE PROGRAM, SOME INFORMATION MAY BE OMITTED. This clinical summary was aggregated from multiple sources. Caution should be exercised in using it in the provision of clinical care. This summary normalizes information from multiple sources, and as a consequence, information in this document may materially change the coding, format and clinical context of patient data. In addition, data may be omitted in some cases. CLINICAL DECISIONS SHOULD BE BASED ON THE PRIMARY CLINICAL RECORDS. [facility]. provides no warranty or guarantee of the accuracy or completeness of information in this document.
[2024-01-19 11:30] LABS: Basophils Percent Auto 0.4 % (0.2-2.0); Eosinophils Absolute Auto 0.1 10^3/uL (0.0-0.7); Hematocrit 39.6 % (36.0-48.0); Hemoglobin 14.3 g/dL (12.0-16.0); Lymphocytes Absolute Auto 1.2 10^3/uL (1.2-3.8); Lymphocytes Percent Auto 25.1 % (20.5-60.0); Mean Corpuscular HGB Conc 36.1 g/dL (29.9-35.2); Mean Corpuscular Hemoglobin 30.4 pg (26.7-34.0); Mean Corpuscular Volume 84.1 fL (81.0-99.0); Mean Platelet Volume 11.2 fL (9.5-13.5); Monocytes Absolute Auto 0.6 10^3/uL (0.3-0.8); Monocytes Percent Auto 11.6 % (1.7-12.0); Neutrophils Percent Auto 61.9 % (43.0-75.0); Platelet Count 137 10^3/uL (150-450); Red Blood Count 4.71 10^6/uL (4.20-5.40); Red Cell Distribution Width 11.7 % (11.0-15.0); White Blood Count 4.8 10^3/uL (4.0-11.0)
[2024-01-19 11:31] LABS: Anion Gap 10.8; BUN Creatinine Ratio 13.6; Calcium 8.7 mg/dL (8.5-10.1); Carbon Dioxide 27.5 mmol/L (21.0-32.0); Chloride 100 mmol/L (98-107); Estimated GFR (African America >60 (>=60); Estimated GFR (Non-African Ame >60 (>=60); Glucose 94 mg/dL (74-106); Potassium 3.3 mmol/L (3.5-5.1); Sodium 135 mmol/L (136-145)
[2024-01-19 11:50] LABS: HCG Qualitative NEGATIVE (NEGATIVE); Internal Control Within Normal Limits
[2024-01-19] MEDS: ONDANSETRON 4 MG RAPDIS TABLET SL (13:00)
== END 2024-01-19 13:55 | disposition home or self-care (01) ==
PROVIDERS: Emergency Provider Emergency Medicine; PCP Nurse Practitioner Family
DX: R42 Dizziness and giddiness (principal); M54.2 Cervicalgia
CPT/HCPCS: 36415; 72040; 80048; 84703; 85025; 93005; 99285; Q0162

== ENCOUNTER 2024-02-20 10:29 | Outpatient (OUT) | payer MEDICAID, SELFPAY ==
--- NOTE | 2024-02-20 10:30 | US_ITS ---
The [address] [address] Patient Name: GIANCARLO CELAYA MRN: [id number] date: 1995 Sex: F Assigned Patient Location: [place] Current Patient Location: Accession/Order Number: [id number] Exam Date: 02/20/2024 10:36 Report Date: 02/21/2024 07:52 At the request of: AMALIA LILLY Procedure: US pelvis w/ transvaginal EXAMINATION: US pelvis w/ transvaginal HISTORY: Pelvic pain in female R10.2 COMPARISON: No relevant comparison available. FINDINGS: Transabdominal and transvaginal images The uterus is normal in size, contour and echotexture measuring 7.7 x 3.9 x 4.4 cm The endometrium measures 9.1 mm, normal. Areas of anechoic echogenicity in the cervix, nabothian cysts. The right ovary measures 3.8 x 3.1 x 3.0 cm. Normal color and Doppler flow The left ovary measures 3.7 x 2.2 x 2.9 cm. Normal color and Doppler flow. Complex cystic structure measuring 2.4 x 1.4 x 1.6 cm with mild peripheral hypervascularity Small amount of free pelvic fluid likely physiologic in amount Findings relayed to Dr. Lilly at 7:50 AM US/US pelvis w/ transvaginal IMPRESSION: Complex cystic structure in the left ovary. A complex cyst is favored however in light of the slight hypervascularity, beta-hCG is recommended to exclude an ectopic Electronically authenticated by: JACK BAUTISTA Date: 02/21/2024 07:52
--- OUTSIDE RECORDS SUMMARY | 2024-02-20 10:47 | XMS_ITS | CCD ---
Author Organization [facility] Care Team Providers Care Acute Care Occupational Therapist Name Role Phone TALON VERAS Unavailable Unavailable TALON VERAS L Unavailable Unavailable Hima Silver Primary Care Physician Unava iljennifer Silver, Hima Catherine Unavailable Unavailable Hima Silver A Primary Care Physician Unava iljennifer Silver, Hima A Primary Care Physician Unava iljennifer Pérez, Lyric Nash Primary Care Physician Unavakirk Pérez, Lyric N Primary Care Physician Unavakirk Pérez, Lyric N Primary Care Physician Unavai lauryn Silver, Hima A Primary Care Physician Unava iljennifer Pérez, Lyric N Primary Care Physician Unavai Deidra Morrison Unavailable Jodie Portillo Unavailable Schlumbohm PA-C, Susana Dickerson Primary Care U navailable Troyjosé miguel MONTERROSON-LOAN EXPEDITOR, Ana Serra Attending Carley vailable Schlumbohm PA-C, Susana Dickerson Primary Care U navailable Karen DO, Mike Rich Attending Unavailab le Schlumbohm PA-C, Susana Dickerson Primary Care U navailable Schlumbohm PA-C, Susana Dickerson Referring U navailable Breece PA-C, Amara Serra Attending Unav ailable Zachariah MARIE-C, Gabino Portillo Primary Care Unavail able Schlumbohm PA-C, Susana Dickerson Attending U navailable Schlumbohm PA-C, Susana Dickerson Primary Care U navailable Schlumbohm PA-C, Susana Dickerson Attending U navailable Zachariah CYNTHIA-C, Gabino Portillo Primary Care Unavail able Schlumbohm PA-C, Susana Dickerson Attending U navailable Zachariah DE PAZC, Gabino Portillo Primary Care Unavail able Cleemput METAL CASTER-LOAN EXPEDITOR, Cheryl Shields Attending Unavtkirk DE PAZC, Gabino Portillo Primary Care Unavail able Schnormaohm ZANDRAC, Susana Dickerson Attending U navailable Cheri DE PAZC, Susana Dickerson Attending U vanailable Zachariah DE PAZC, Gabino Portillo Primary Care Unavail able Schluolyohm PA-C, Susana Dickerson Primary Care U navailable Schnormaohm PA-C, Susana Dickerson Attending U navailable Beto [facility], Janeth Maldonado Attending Unavail able Zachariah MARIE-C, Gabino Portillo Primary Care Unavail able Schsimran PA-C, Susana Dickerson Primary Care U navailable Troy METAL CASTER-LOAN EXPEDITOR, Ana Serra Attending Carley verito DE PAZC, Gabino Portillo Primary Care Unavail able Troy METAL CASTER-LOAN EXPEDITOR, Ana Serra Attending Carley verito DE PAZC, Gabino Portillo Primary Care Unavail able Troy METAL CASTER-LOAN EXPEDITOR, Ana Serra Attending Carley GELACIO Holt Attending Provider Jodie Portillo Attending Unavailable Jodie Portillo Admitting Unavailable ELEAZAR LILLY Attending Unavailable Corwin Dee DO Primary Care Provider Medications Current Medications Medication Drug Class(es) Dates Sig (Normalized) Sig (Original) amoxicillin 875 mg oral tablet (1 source) Penicillin-class Antibacterial Start: 03-26-2023 take 1 tablet by mouth every twelve hours Amoxicillin 875 MG 1 capsule Orally Twice a day for 7 days Mar, Active doxycycline hyclate 100 mg oral capsule (3 sources) Tetracycline-class Drug Start: 02-08-2024 End: 02-22-2024 doxycycline (Vibramycin) 100 MG capsule Indications: Pelvic pain in female Take 1 capsule (100 mg) by mouth in the morning and 1 capsule (100 mg) before bedtime. Do all this for 14 days. Take with at least 8 ounces (large glass) of water, do not lie down for 30 minutes after. 28 capsule 02/08/2024 02/22/2024 Active hydrOXYzine hydrochloride 25 mg oral tablet (3 sources) Antihistamine Start: 01-24-2024 take 25 mg by mouth three times daily Hydroxyzine Hcl Active 25 MG PO Three times daily January 24, 2024 12:00am sertraline 25 mg oral tablet (6 sources) Serotonin Reuptake Inhibitor Start: 01-24-2024 sertraline (Zoloft) 25 MG tablet Daily 01/24/2024 Active Completed/Discontinued Medications Medication Drug Class(es) Dates Sig [...] cough Start: 05-21-2019 take 1 capsule by [facility] three times daily as needed for cough [...] daily Start: 08-14-2018 take 1 tablet by kunal once daily citalopram 10 mg oral tablet 08/14/2018 take 1 tablet (10 mg) by oral route once daily clotrimazole 10 mg/ml vaginal cream (9 sources) Azole Antifungal Start: 01-13-2017 Clotrimazole-7 1 % vaginal cream 01/13/2017 apply 1 applicatorful by vaginal route once once daily at night cyclobenzaprine hydrochloride 10 mg oral tablet (4 sources) Muscle Relaxant Start: 11-02-2023 End: 01-24-2024 take 10 mg by mouth three times daily Cyclobenzaprine Discontinued 10 MG PO Three times daily 30 November 02, 2023 12:00am January 24, 2024 11:41am escitalopram 10 mg oral tablet (20 sources) [...] 1 mg/kg by oral route once daily ondansetron 4 mg disintegrating oral tablet (14 sources) Serotonin-3 Receptor Antagonist Start: 07-21-2023 End: 01-24-2024 take 4 mg by mouth once daily Ondansetron Discontinued 4 MG PO Daily July 21, 2023 12:00am January 24, 2024 11:41am Start: 08-28-2018 End: 09-04-2018 take 1 tablet by mouth three times daily as needed for nausea Zofran 4 mg oral tablet 08/28/2018 09/04/2018 take 1 tablet by oral route TID PRN nausea pantoprazole 40 mg delayed release oral tablet [...] day propranolol hydrochloride 40 mg oral tablet (4 sources) beta-Adrenergic Dilcia Start: 07-25-2023 End: 01-03-2024 take [...] 14 days tiZANidine 2 mg oral tablet (8 sources) Central alpha-2 Adrenergic Agonist Start: 07-21-2023 [...] Problem Classification Problem Date Documented Date Episodic/Chronic Abdominal pain (2 sources) Pain in female pelvis; Translations: [Pelvic and perineal pain] 02-08-2024 Episodic Anxiety disorders (20 sources) Anxiety state, unspecified; Translations: [Anxiety] Onset: 05-30-2015 01-24-2024 Chronic Attention-deficit conduct and disruptive behavior disorders (9 sources) Attention deficit disorder with hyperactivity Onset: 02-09-2018 Chronic Cardiac dysrhythmias (8 sources) Palpitations; Translations: [Palpitations] 01-03-2024 Episodic Conditions associated with dizziness or vertigo (9 sources) Dizziness and giddiness; Translations: [Dizziness] Onset: 07-28-2017 01-03-2024 Episodic Disorders of teeth and jaw (1 source) Other specified disorders of teeth and supporting structures Episodic Headache; including migraine (6 sources) Daily headache; Translations: [Daily headache] 07-21-2023 Episodic Malaise and fatigue (9 sources) Other malaise and fatigue; Translations: [Fatigue] Onset: 05-11-2019 07-21-2023 Episodic Menstrual disorders (6 sources) Irregular periods; Translations: [Irregular menstruation, unspecified] 07-21-2023 Chronic Mood disorders (20 sources) Depressive disorder, not elsewhere classified; Translations: [Depressive disorder] Onset: 01-28-2016 01-24-2024 Chronic Other acquired deformities (5 sources) Acquired scoliosis; Translations: [Scoliosis, unspecified] 07-21-2023 Chronic Other acquired deformities (1 source) Scoliosis, unspecified; Translations: [Scoliosis [and kyphoscoliosis], idiopathic] 07-21-2023 Chronic Other female genital disorders (2 sources) Other specified noninflammatory disorders of vagina; Translations: [Leukorrhea, not specified as infective] Onset: 02-02-2024 02-02-2024 Episodic Other nervous system disorders (9 sources) Attention or concentration deficit Onset: 01-28-2016 Chronic Other upper respiratory disease (1 source) Chronic rhinitis Onset: 05-21-2019 Chronic Other upper respiratory infections (2 sources) Unspecified sinusitis (chronic) Onset: 05-11-2019 Chronic Other upper respiratory infections (15 sources) Acute upper respiratory infections of unspecified site; Translations: [Acute pharyngitis, unspecified] Onset: 08-01-2017 Episodic Otitis media and related conditions (1 source) Other acute nonsuppurative otitis media, bilateral; Translations: [Acute nonsuppurative otitis media, unspecified] 02-02-2024 Episodic Residual codes; unclassified (5 sources) Flushing; Translations: [Flushing] 07-21-2023 Episodic Residual codes; unclassified (1 source) Flushing; Translations: [Flushing] 07-21-2023 Episodic Spondylosis; intervertebral disc disorders; other back problems (6 sources) Neck pain; Translations: [Cervicalgia] 07-21-2023 Episodic [...] [Urinary tract infection, site not specified] Onset: 08-28-2018 Episodic Results Test Name Value Interpretation Reference Range Facility URETHRITIS/DISCHARGE PLUS VA GINITIS (HTRX)on 02-10-2024 ATOPOBIUM VAGINAE 0.000 [facility] ATOPOBIUM VAGINAE Not detected [facility] BVAB 2,3 (BACTERIAL VAGINOSIS ASSOCIATED BACTERIA 2, 3); MOBILUNCUS SPP 0.000 [facility] BVAB 2,3 (BACTERIAL VAGINOSIS ASSOCIATED BACTERIA 2, 3); MOBILUNCUS SPP Not detected [facility] ALICIA ALBICANS, PARAPSILOSIS, TROPICALIS 0.000 [facility] ALICIA ALBICANS, PARAPSILOSIS, TROPICALIS Not detected [facility] ALICIA GLABRATA 0.000 [facility] ALICIA GLABRATA Not detected [facility] ALICIA KRUSEI 0.000 [facility] ALICIA KRUSEI Not detected [facility] CHLAMYDIA TRACHOMATIS 0.000 [facility] CHLAMYDIA TRACHOMATIS Not detected [facility] GARDNERELLA VAGINALIS 0.000 [facility] GARDNERELLA VAGINALIS Not detected [facility] MEGASPHAERA (TYPES 1, 2) 0.000 [facility] MEGASPHAERA (TYPES 1, 2) Not detected [facility] MYCOPLASMA GENITALIUM 0.000 [facility] MYCOPLASMA GENITALIUM Not detected [facility] NEISSERIA GONORRHOEAE 0.000 [facility] NEISSERIA GONORRHOEAE Not detected [facility] TRICHOMONAS VAGINALIS 0.000 [facility] TRICHOMONAS VAGINALIS Not detected [facility] HCG ( test) Ql (U)o n 02-08-2024 Interpretation and review of laboratory results Normal [facility] Preg Test, Ur Negative [facility] Urinalysis macro (dipstick) panel (U)on 02-08-2024 Bilirubin, UA Negative Negative - 4(70) +++ mg/dL [facility] Blood, UA Negative Negative - 50 Fuad/mcL [facility] Clarity, UA Clear [facility] Color, UA Yellow [facility] Glucose, UA Negative Negative - 2000(110) ++++ mg/dL [facility] Interpretation and review of laboratory results Normal [facility] Ketones, UA Negative Negative - 160(16) ++++ mg/dL [facility] Leukocytes, UA Negative Negative - 500+++ Sandie/mcL [facility] Nitrite, UA Negative Negative - Positive [facility] pH, UA 7.5 5 - 9 [facility] Protein, UA Negative Negative - 2000(20) ++++ mg/dL [facility] Spec Grav, UA 1.020 1 - 1.03 [facility] Urobilinogen, UA 0.2 0.2 - 12 mg/dL [facility] Vaginitis Plus (VG+)on 02-01 Atopobium Vaginae Low - 0 Normal . [facility] Comment on above: Result Comment: This test was developed and its performance characteristics determined by [facility]. It has not been cleared or approved by the Food and Drug Administration. Performed By: #### V AGINITIS+ #### [facility] , BVAB2 Low - 0 Normal . [facility] Comment on above: Result Comment: This test was developed and its performance characteristics determined by [facility]. It has not been cleared or approved by the Food and Drug Administration. Performed By: #### V AGINITIS+ #### [facility] , Alicia Albicans, EDLON Positive Critically abnormal Negative [facility] Comment on above: Result Comment: This test was developed and its performance characteristics determined by [facility]. It has not been cleared or approved by the Food and Drug Administration. Performed By: #### V AGINITIS+ #### [facility] , Alicia Glabrata, ELDON Negative Normal Negative [facility] Comment on above: Result Comment: This test was developed and its performance characteristics determined by [facility]. It has not been cleared or approved by the Food and Drug Administration. PERFORMED BY: [facility] [place] [address] PATHOLOGIST CAN PILER IRENE TURPIN M.D. Performed By: #### V AGINITIS+ #### [facility] , Chlamydia Trachomotis, ELDON Negative Normal Negative [facility] Comment on above: Performed By: #### V AGINITIS+ #### [facility] , Megasphaera Low - 0 Normal . [facility] Comment on above: Result Comment: This test was developed and its performance characteristics determined by [facility]. It has not been cleared or approved by the Food and Drug Administration. Calculate total score by adding the 3 individual bacterial vaginosis (BV) marker scores together. Total score is interpreted as follows: Total score 0-1: Indicates the absence of BV. Total score 2: Indeterminate for BV. Additional clinical data should be evaluated to establish a diagnosis. Total score 3-6: Indicates the presence of BV. Performed By: #### V AGINITIS+ #### [facility] , Neisseria Gonorrhoeae, ELDON Negative Normal Negative [facility] Comment on above: Result Comment: Perf ormed at: =G - [facility] [address] [id number] Packaging Tech: Bri Keenan MD, Phone: [phone] Performed By: #### V AGINITIS+ #### [facility] , Tric Vag ELDON Negative Normal Negative [facility] Comment on above: Performed By: #### V AGINITIS+ #### [facility] , Basophils Auto (Bld) [#/Vol] on 01-19-2024 Basophils (Bld) [#/Vol] 0.0 10 3/uL 0.0-0.1 [facility] Basophils/100 WBC Auto (Bld) on 01-19-2024 Basophils/100 WBC (Bld) 0.4 % 0.2-2.0 [facility] Eosinophils/100 WBC Auto (Bl d)on 01-19-2024 Eosinophils/100 WBC (Bld) 1.0 % 0.9-7.0 [facility] Erythrocyte distribution wid th Auto (RBC) [Ratio]on 01-19-2024 Erythrocyte distribution width (RBC) [Ratio] 11.7 % 11.0-15.0 [facility] Estimated glomerular filtrat ion rate (GFR) non- Americanon 01-19-2024 GFR/1.73 sq M.predicted among non-blacks MDRD (S/P/Bld) [Vol rate/Area] mL/min/{1.73_m2} >=60 [facility] Hematocrit Auto (Bld) [Volum e fraction]on 01-19-2024 Hematocrit (Bld) [Volume fraction] 39.6 % 36.0-48.0 [facility] Hemoglobin [Mass/volume] in Bloodon 01-19-2024 Hemoglobin (Bld) [Mass/Vol] 14.3 g/dL 12.0-16.0 [facility] Laboratory - Chemistry and C hemistry - challengeon 01-19-2024 Calcium [Mass/Vol] 8.7 mg/dL 8.5-10.[address] [facility] Chloride [Moles/Vol] 100 mmol/L 98-107 [facility] CO2 [Moles/Vol] 27.5 mmol/L 21.0-32.0 [facility] Creatinine [Mass/Vol] 0.88 mg/dL 0.55-1.02 [facility] GFR/1.73 sq M.predicted MDRD (S/P/Bld) [Vol rate/Area] mL/min/{1.73_m2} >=60 [facility] Glucose [Mass/Vol] 94 mg/dL 74-[address] [facility] Potassium [Moles/Vol] 3.3 mmol/L Low 3.5-5.1 [facility] Sodium [Moles/Vol] 135 mmol/L Low 136-[address] [facility] Urea nitrogen [Mass/Vol] 12.0 mg/dL 7.0-18.0 [facility] Urea nitrogen/Creatinine [Mass ratio] 13.6 mg/mg [facility] Laboratory - Hematology and Cell countson 01-19-2024 Immature granulocytes/100 WBC (Bld) 0.0 % 0.0-0.5 [facility] Leukocytes [#/volume] correc leonidas for nucleated erythrocytes in Blood by Automated counon 01-19-2024 WBC corrected for nucl RBC Auto (Bld) [#/Vol] 4.8 10 3/uL 4.0-11.0 [facility] Lymphocytes Auto (Bld) [#/Vo l]on 01-19-2024 Lymphocytes (Bld) [#/Vol] 1.2 10 3/uL 1.2-3.8 [facility] Lymphocytes/100 WBC Auto (Bl d)on 01-19-2024 Lymphocytes/100 WBC (Bld) 25.1 % 20.5-60.0 [facility] MCH Auto (RBC) [Entitic mass ]on 01-19-2024 MCH (RBC) [Entitic mass] 30.4 pg 26.7-34.0 [facility] MCHC Auto (RBC) [Mass/Vol]on 01-19-2024 MCHC (RBC) [Mass/Vol] 36.1 g/dL High 29.9-35.2 [facility] MCV Auto (RBC) [Entitic vol] on 01-19-2024 MCV (RBC) [Entitic vol] 84.1 fL 81.0-99.0 [facility] Monocytes Auto (Bld) [#/Vol] on 01-19-2024 Monocytes (Bld) [#/Vol] 0.6 10 3/uL 0.3-0.8 [facility] Monocytes/100 WBC Auto (Bld) on 01-19-2024 Monocytes/100 WBC (Bld) 11.6 % 1.7-12.0 [facility] Neutrophils Auto (Bld) [#/Vo l]on 01-19-2024 Neutrophils (Bld) [#/Vol] 3.0 10 3/uL 1.4-6.5 [facility] Neutrophils/100 WBC Auto (Bl d)on 01-19-2024 Neutrophils/100 WBC (Bld) 61.9 % 43.0-75.0 [facility] No Panel Informationon 01-18 Eosinophils # (Auto) 0.1 10 3/uL 0.0-0.7 [facility] Human Chorionic Gonadotropin, Qual Negative NEGATIVE [facility] Immature Granulocyte # (Auto) 0.00 10 3/uL 0.00-0.03 [facility] Platelet mean volume Auto (B ld) [Entitic vol]on 01-19-2024 Platelet mean volume (Bld) [Entitic vol] 11.2 fL 9.5-13.5 [facility] Platelets Auto (Bld) [#/Vol] on 01-19-2024 Platelets (Bld) [#/Vol] 137 10 3/uL Low 150-450 [facility] RBC Auto (Bld) [#/Vol]on RBC (Bld) [#/Vol] 4.71 10 6/uL 4.20-5.40 [facility] Serum or plasma anion gap de terminationon 01-19-2024 Anion gap [Moles/Vol] 10.8 mmol/L [facility] Choriogonadotropin.beta subu nit ( test) [Presence] in Urineon 01-03-2024 Beta HCG ( test) Ql (U) Negative [facility] Influenza virus A and B and SARS-CoV-2 (COVID-19) RNA panel - Respiratory system specon 01-03-2024 Influenza virus A and B RNA and SARS-CoV-2 (COVID-19) N gene panel ELDON+probe (Resp) Negative [facility] Laboratory - Microbiology an d Antimicrobial susceptibilityon 01-03-2024 SARS-CoV-2 (COVID-19) RNA ELDON+probe Ql (Unsp spec) Negative [facility] No Panel Informationon 01-02 POC Influenza B (ELDON) Negative [facility] No Panel InformationOrdered By: Evelyn Vu on 01-03-2024 Quick Strep (POC) [facility] Family Medicine Office/Clini c Noteon 05-17-2023 Family [...] weakness, visual symptoms. She works at the [employer], not using computer often besides being on [...] Avoid eating within 3 hours of bed; pet sitter dinner; limit drinking before bed; Avoid food triggers; Avoid alcohol and caffeine (especially before bed). Raise head of bed. Call or RTO if symptoms are not improving, changing or progressing. Ordered: omeprazole, 1 caps, Oral, Daily, before a meal, # 30 caps, 3 Refill(s), Pharmacy: [id number] Orders: venlafaxine, 2 caps, Oral, Daily, Take one capsule for at least 4 days then start taking 2 capsules once daily., # 60 caps, 3 Refill(s), Pharmacy: [id number] Time Spent with the Pat (more content not included)... Normal [facility] .eGFRon 04-21-2023 GFR/1.73 sq M.predicted MDRD (S/P/Bld) [Vol rate/Area] mL/min/{1.73_m2} Normal >=60 [facility] Comment on above: Result Comment: [facility] Laboratories have implemented the eGFR calculation [...] years Performed By: #### E GFR #### [facility] [address] [place] [address] CBC w/ Diffon 04-21-2023 Erythrocyte distribution width (RBC) [Ratio] 13.2 % Normal 11.6-14.8 [facility] Comment on above: Performed By: #### C BC #### [facility] [address] [place] [address] Hematocrit (Bld) [Volume fraction] 41.7 % Normal 36.0-46.0 [facility] Comment on above: Performed By: #### C BC #### [address] [address] Hemoglobin (Bld) [Mass/Vol] 14.4 g/dL Normal 12.0-16.0 [facility] Comment on above: Performed By: #### C BC #### [address] [address] MCH (RBC) [Entitic mass] 29.6 pg Normal 27.0-35.0 [facility] Comment on above: Performed By: #### C BC #### [address] [address] MCHC 34.4 % Normal 31.0-37.0 [facility] Comment on above: Performed By: #### C BC #### [address] [address] MCV (RBC) [Entitic vol] 85.9 fL Normal 80.0-100.0 [facility] Comment on above: Performed By: #### C BC #### [address] [address] Platelet 171 x10*3/mcL Normal 150-450 [facility] Comment on above: Performed By: #### C BC #### [address] [address] Platelet mean volume (Bld) [Entitic vol] 9.4 fL Normal 6.7-10.6 [facility] Comment on above: Performed By: #### C BC #### [address] [address] RBC 4.86 x10*6/mcL Normal 3.80-5.20 [facility] Comment on above: Performed By: #### C BC #### [address] [address] WBC 6.1 x10*3/mcL Normal 4.5-11.0 [facility] Comment on above: Performed By: #### C BC #### [address] [address] CMPon 04-21-2023 Albumin [Mass/Vol] 4.3 g/dL Normal 3.2-4.9 [facility] Comment on above: Performed By: #### C OMP #### [address] [address] Albumin/Globulin [Mass ratio] 1.2 {ratio} Normal 1.1-2.2 [facility] Comment on above: Performed By: #### C OMP #### [address] [address] Alk Phos 65 IU/L Normal 32-91 [facility] Comment on above: Performed By: #### C OMP #### [address] [address] ALT [Catalytic activity/Vol] 23 U/L Normal 14-54 [facility] Comment on above: Performed By: #### C OMP #### [address] [address] Anion gap [Moles/Vol] 10 mmol/L Normal 7-17 [facility] Comment on above: Performed By: #### C OMP #### [address] [address] AST [Catalytic activity/Vol] 25 U/L Normal 15-41 [facility] Comment on above: Performed By: #### C OMP #### [address] [address] Bili Total 0.7 mg/dL Normal 0.3-1.2 [facility] Comment on above: Performed By: #### C OMP #### [address] [address] Calcium [Mass/Vol] 9.5 mg/dL Normal 8.5-10.3 [facility] Comment on above: Performed By: #### C OMP #### [address] [address] Chloride [Moles/Vol] 109 mmol/L Normal 98-110 [facility] Comment on above: Performed By: #### C OMP #### [address] [place] [address] CO2 [Moles/Vol] 26 mmol/L Normal 22-32 [facility] Comment on above: Performed By: #### C OMP #### [address] [address] Creatinine [Mass/Vol] 1.08 mg/dL High 0.44-1.03 [facility] Comment on above: Performed By: #### C OMP #### [address] [address] Glucose [Mass/Vol] 97 mg/dL Normal 70-99 [facility] Comment on above: Performed By: #### C OMP #### [address] [address] Potassium [Moles/Vol] 3.9 mmol/L Normal 3.4-4.8 [facility] Comment on above: Performed By: #### C OMP #### [address] [address] Protein [Mass/Vol] 7.8 g/dL Normal 6.5-8.1 [facility] Comment on above: Performed By: #### C OMP #### [address] [address] Sodium [Moles/Vol] 141 mmol/L Normal 133-142 [facility] Comment on above: Performed By: #### C OMP #### [address] [address] Urea nitrogen [Mass/Vol] 8 mg/dL Normal 8-26 [facility] Comment on above: Performed By: #### C OMP #### [address] [address] Urea nitrogen/Creatinine [Mass ratio] 7.4 mg/mg Low 10.0-20.0 [facility] Comment on above: Performed By: #### C OMP #### [address] [address] Diff Autoon 04-21-2023 Baso Absolute 0.0 x10*3/mcL Normal 0.0-0.2 [facility] Comment on above: Performed By: #### . Automated Diff #### [address] [address] Basophils/100 WBC (Bld) 0.4 % Normal 0.0-1.5 [facility] Comment on above: Performed By: #### . Automated Diff #### [address] [address] Eos Absolute 0.1 x10*3/mcL Normal 0.0-0.4 [facility] Comment on above: Performed By: #### . Automated Diff #### [address] [address] Eosinophils/100 WBC (Bld) 1.3 % Normal 0.0-5.4 [facility] Comment on above: Performed By: #### . Automated Diff #### [address] [address] Lymph Absolute 2.3 x10*3/mcL Normal 1.0-4.8 [facility] Comment on above: Performed By: #### . Automated Diff #### [address] [address] Lymphocytes/100 WBC (Bld) 37.8 % Normal 27.2-40.8 [facility] Comment on above: Performed By: #### . Automated Diff #### [address] [address] Miller Absolute 0.4 x10*3/mcL Normal 0.1-1.1 [facility] Comment on above: Performed By: #### . Automated Diff #### [address] [address] Monocytes/100 WBC (Bld) 5.8 % Normal 3.7-11.9 [facility] Comment on above: Performed By: #### . Automated Diff #### [address] [address] Neutro Absolute 3.4 x10*3/mcL Normal 1.8-7.7 [facility] Comment on above: Performed By: #### . Automated Diff #### [address] [address] Neutro Auto 54.7 % Normal 47.2-70.8 [facility] Comment on above: Performed By: #### . Automated Diff #### [address] [address] Lipid Panelon 04-21-2023 Cholesterol in LDL [Mass/Vol] 140 mg/dL High 0-99 [facility] Comment on above: Result Comment: The equation being used in this calculation is LDL = (Chol - HDL) - (Trig / 5) The optimal value of LDL for individual patients may vary. The patient's history of Artherosclerosis and other cardiac risk factors should be considered. Performed By: #### L CM #### [address] [address] Cardiac Risk 4.4 Normal [facility] Comment on above: Result Comment: Men Women 1/2 Average 3.43 3.27 Average 4.97 4.44 2x Average 9.55 7.05 3x Average 23.99 11.04 Performed By: #### L CM #### [address] [address] Cholesterol [Mass/Vol] 198 mg/dL Normal 25-199 [facility] Comment on above: Result Comment: 0 - 17 years of age: Desirable 0-170 Borderline High 170-199 High >=200 18 years and older: Acceptable <200 Borderline High 200-239 High >=240 Performed By: #### L CM #### [address] [address] Cholesterol in HDL [Mass/Vol] 45.2 mg/dL Normal 40.0-60.0 [facility] Comment on above: Performed By: #### L CM #### [address] [address] Cholesterol in VLDL [Mass/Vol] 13 mg/dL Normal 8-39 [facility] Comment on above: Performed By: #### L CM #### [address] [place] [address] Triglyceride [Mass/Vol] 64 mg/dL Normal [facility] Comment on above: Result Comment: 0 - 17 years of age: Trig 90 - 129 Borderline High Trig => 130 High 18 years and older: Trig 150 - 199 Borderline High Trig 200 - 499 High Trig =>500 Very High Performed By: #### L TOI #### [facility] [address] [place] [address] Family Medicine Office/Clini c Noteon 04-20-2023 Family Medicine Office/Clinic Note Chief Complaint Wellness History of Present Illness Patient is a 27-year-old female who presents the office today for a work physical for [employer]. 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 Care team: Gynecology: AUSTIN Simmons. Dermatology: [place]- was taking isotretinoin- recently discontinued. Psychiatry: Counseling. [...] weakness, visual symptoms. She works at the [employer], not using computer often besides being on [...] Historical Pr (more content not included)... 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 Last pap negative 02/18/2022. No gardasil [...] Lifetime: 5 Comments 02/24/23 11:26:00 Annual exam. [id number] two year old daughter. In monogamous relationship, declines STI screening. GC/CT negative 04/2022. States no concerns today. Still considering Paragard IUD, has code sheet and pamphlet from prev. discussion. Denies any family hx of breast, ovarian or uterine cancer. Working part-time at the [employer]. Walks for exercise. Review of Systems [...] [] I (more content not included)... Normal [facility] Quick Strepon 10-02-2022 S. pyogenes Org specific cx Ql (Throat) Negative [place] Other Quick Strep [place] Other COVID19(IDNOW)on 11-30-2019 COVID19(IDNOW) NOT DETECTED Normal NOT DETECTED [facility] Comment on above: Result Comment: Nega tive results do not preclude SARS-CoV-2 infection and should not be used as the sole basis for treatiment or other patient management. ENHANCED CONTACT, AND DROPLET ISOLATION IS REQUIRED FOR INPATIENTS WITH SARS-CoV-2. Performed By: #### C OVID19(IDNOW) #### [facility] [address] [place] [address] Age at specimen collection = Normal [facility] Comment on above: Performed By: #### C OVID19(IDNOW) #### [facility] [address] [place] [address] Hematologyon 05-11-2019 Basophils (Bld) [#/Vol] 0.0 10*3/uL 0.0-0.1 [facility] Basophils/100 WBC (Bld) 0.40 % 0.0-1.0 Event[facility] Eosinophils (Bld) [#/Vol] 0.10 10*3/uL 0.0-0.5 [facility] Eosinophils/100 WBC (Bld) 1.30 % 0.0-7.0 [facility] Hematocrit (Bld) [Volume fraction] 41.30 % 35.7-47.1 Event[facility] Hemoglobin (Bld) [Mass/Vol] 14.10 g/dL 11.9-15.7 [facility] Lymphocytes (Bld) [#/Vol] 2.20 10*3/uL 0.9-3.1 [facility] Lymphocytes/100 WBC (Bld) 29.30 % 15.0-46.0 Eventable MCH (RBC) [Entitic mass] 29.90 pg 23.2-33.3 Eventable MCV (RBC) [Entitic vol] 87.50 fL 83.4-101.4 [facility] Monocytes (Bld) [#/Vol] 0.60 10*3/uL 0.3-1.0 [facility] Monocytes/100 WBC (Bld) 8.60 % 4.0-12.0 Event[facility] Neutrophils (Bld) [#/Vol] 4.50 10*3/uL 1.8-7.9 [facility] Neutrophils/100 WBC (Bld) 60.0 % 43.0-76.0 [facility] Platelets (Bld) [#/Vol] 160.0 10*3/uL 150-400 [facility] RBC (Bld) [#/Vol] 4.720 10*6/uL 3.72-5.24 [facility] WBC (Bld) [#/Vol] 7.40 10*3/uL 3.9-10.3 [facility] Otheron 05-11-2019 Erythrocyte distribution width (RBC) [Ratio] 12.10 % 11.5-15.5 [place] [facility] Immature granulocytes (Bld) [#/Vol] 0.030 10*3/uL 0.00-0.06 [place] [facility] Immature granulocytes/100 WBC (Bld) 0.40 % 0.0-0.5 [place] [facility] MCHC (RBC) [Mass/Vol] 34.10 g/dL 32.0-36.0 [facility] Platelet mean volume (Bld) [Entitic vol] 11.10 fL 8.3-11.5 [place] [facility] COMMENT [place] [facility] <9.0 0.0-8.9 [place] [facility] 303.0 0.0-17.9 [place] [facility] <36.0 0.0-35.9 [place] [facility] 38.9 0.0-17.9 [facility] Thyroidon 05-11-2019 TSH Qn 1.96 m[IU]/L 0.50-4.00 [facility] Basic Metabolic Profon 04-20 (cont.) Normal [facility] Comment on above: Result Comment: Aver age GFR for 20-29 years old: 116 mL/min/1.73sq mChronic Kidney Disease: <60 mL/min/1.73sq mKidney failure: <15 mL/min/1.73sq meGFR calculated using average adult body mass. Additional eGFR calculator available at:http://www.[employer]/multiple_crcl_2011.htm Performed By: #### B MP, CBC ####[address] [place] [address] Anion gap 3 molar conc 11 mmol/L Normal 9-17 [facility] Comment on above: Performed By: #### B MP, CBC ####[address] [place] [address] BUN/CRE Ratio 18 Normal 9-20 [facility] Comment on above: Performed By: #### B MP, CBC ####[address] [place] [address] Calcium mass conc 9.2 mg/dL Normal 8.6-10.4 [facility] Comment on above: Performed By: #### B MP, CBC ####[address] [place] [address] Chloride molar conc 102 mmol/L Normal 98-107 [facility] Comment on above: Performed By: #### B MP, CBC ####[address] [place] [address] CO2 molar conc 26 mmol/L Normal 20-31 [facility] Comment on above: Performed By: #### B MP, CBC ####[address] [place] [address] Creatinine mass conc 0.65 mg/dL Normal 0.50-0.90 [facility] Comment on above: Performed By: #### B MP, CBC ####[address] [place] [address] GFR, Amer >60 Normal >60 [facility] Comment on above: Performed By: #### B MP, CBC ####[address] [place] [address] GFR,non Amer >60 Normal >60 [facility] Comment on above: Performed By: #### B MP, CBC ####[address] [place] [address] Glucose mass conc 89 mg/dL Normal 70-99 [facility] Comment on above: Performed By: #### B MP, CBC ####[address] [place] [address] Potassium molar conc 3.8 mmol/L Normal 3.7-5.3 [facility] Comment on above: Performed By: #### B MP, CBC ####[address] [place] [address] Sodium molar conc 139 mmol/L Normal 135-144 [facility] Comment on above: Performed By: #### B MP, CBC ####[address] [place] [address] Staging: Normal [facility] Comment on above: Result Comment: Stag e 1: Some kidney damage normal GFRStage 2: Mild kidney damage GFR 60-89Stage 3: Moderate kidney damage GFR 30-59Stage 4: Severe kidney damage GFR 15-29Stage 5: Severe kidney damage GFR <15ESRD - chronic treatment by dialysis or transplant Performed By: #### B MP, CBC ####[address] [place] [address] Urea nitrogen mass conc 12 mg/dL Normal 6-20 [facility] Comment on above: Performed By: #### B MP, CBC ####[address] [place] [address] CBCon 04-20-2018 Erythrocyte distribution width Auto Ratio (RBC) 12.1 % Normal 11.8-14.4 [facility] Comment on above: Performed By: #### B MP, CBC ####[address] [place] [address] Hematocrit Auto Volume Fraction (Bld) 42.6 % Normal 36.3-47.1 [facility] Comment on above: Performed By: #### B MP, CBC ####[address] [place] [address] Hemoglobin mass conc (Bld) 14.7 g/dL Normal 11.9-15.1 [facility] Comment on above: Performed By: #### B MP, CBC ####[address] [place] [address] MCH Auto Entitic mass (RBC) 30.2 pg Normal 25.2-33.5 [facility] Comment on above: Performed By: #### B MP, CBC ####[address] [place] [address] MCHC Auto mass conc (RBC) 34.5 g/dL Normal 28.4-34.8 [facility] Comment on above: Performed By: #### B MP, CBC ####[address] [place] [address] MCV Auto Entitic volume (RBC) 87.7 fL Normal 82.6-102.9 [facility] Comment on above: Performed By: #### B MP, CBC ####[address] [place] [address] NRBC Automated 0.0 per 100 WBC Normal 0.0 [facility] Comment on above: Performed By: #### B MP, CBC ####[address] [place] [address] Platelet mean volume Auto Entitic volume (Bld) 10.8 fL Normal 8.1-13.5 [facility] Comment on above: Performed By: #### B MP, CBC ####[address] [place] [address] Platelets Auto #/vol (Bld) 142 10*3/uL Normal 138-453 [facility] Comment on above: Performed By: #### B MP, CBC ####[address] [place] [address] RBC Auto #/vol (Bld) 4.86 10*6/uL Normal 3.95-5.11 [facility] Comment on above: Performed By: #### B MP, CBC ####[address] [place] [address] WBC Auto #/vol (Bld) 6.2 10*3/uL Normal 4.5-13.5 [facility] Comment on above: Performed By: #### B MP, CBC ####[address] [place] [address] HCG, ,Urineon 04-20 HCG.beta subunit ( test) Ql (U) Negative Normal NEG [facility] Comment on above: Result Comment: Spec imens with hCG levels near the threshold of the test (25 mIU/mL) may give a negative or indeterminate result. In such cases, another test should be performed with a new specimen in 48-72 hours. If early is suspected clinically in this setting, correlation with quantitative serum b-hCG level is suggested.[employer] [facility] has confirmed the use of plasma for this test. This has not been cleared or approved by the U.S. Food and Drug Administration. The FDA has determined that such clearance is not necessary. Performed By: #### U HCG ####[address] [place] [address] UA w/Reflex Cultureon 2017 Acetoacetic Acid,Ur Negative Normal NEG [facility] Comment on above: Performed By: #### U AX UMICAO ####[address] [place] [address] Bilirubin, SemiQt,Ur Negative Normal NEG [facility] Comment on above: Performed By: #### U AX UMICAO ####[address] [place] [address] Color YELLOW Normal YEL [facility] Comment on above: Performed By: #### U PALOMO UMICAO ####[address] [place] [address] Glucose,Semi-qnt,Ur Negative Normal [facility] Comment on above: Performed By: #### Tonja CULVER UMICAO ####[address] [place] [address] Hemoglobin, Ur Negative Normal NEG [facility] Comment on above: Performed By: #### Tonja CULVER UMICAO ####[address] [place] [address] Leuckocyte Esterase Negative Normal [facility] Comment on above: Performed By: #### U PALOMO UMICAO ####[address] [place] [address] Nitrite,Ur Negative Normal [facility] Comment on above: Performed By: #### U AX UMICAO ####[address] [place] [address] PH,Ur 6.0 Normal 5.0-9.0 [facility] Comment on above: Performed By: #### U AX UMICAO ####[address] [place] [address] Protein, Semi-qnt,Ur Negative Normal NEG [facility] Comment on above: Performed By: #### U AX, UMICAO ####[address] [place] [address] Spec. Drums,Ur 1.025 High 1.010-1.020 [facility] Comment on above: Performed By: #### U AX, UMICAO ####[address] [place] [address] Turbidity CLEAR Normal CLEAR [facility] Comment on above: Performed By: #### U AX, UMICAO ####[address] [place] [address] Urobilinogen,Ur Normal Normal NORM [facility] Comment on above: Performed By: #### U AX, UMICAO ####[address] [place] [address] Comment NOT REPORTED Normal [facility] Comment on above: Performed By: #### U AX, UMICAO ####[address] [place] [address] Urinalysis,Microon 8 ----- Normal [facility] Comment on above: Performed By: #### U AX, UMICAO ####[address] [place] [address] Bacteria 1+ Abnormal NONE [facility] Comment on above: Performed By: #### U AX, UMICAO ####[address] [place] [address] Epithelial cells 2 TO 5 Normal 0-25 [facility] Comment on above: Performed By: #### U AX, UMICAO ####[address] [place] [address] RBC Test strip #/vol (U) None Normal 0-2 [facility] Comment on above: Performed By: #### U AX, UMICAO ####[address] [place] [address] Urine WBC's 0 TO 2 Normal 0-5 [facility] Comment on above: Performed By: #### U AX, UMICAO ####[address] [place] [address] Amorphous Sediment NOT REPORTED Normal NONE [facility] Comment on above: Performed By: #### U AX, UMICAO ####[address] [place] [address] Casts NOT REPORTED Normal [facility] Comment on above: Performed By: #### U AX, UMICAO ####[address] [place] [address] Crystals NOT REPORTED Normal NONE [facility] Comment on above: Performed By: #### U AX, UMICAO ####[address] [place] [address] Epithelial, Renal NOT REPORTED Normal 0 [facility] Comment on above: Performed By: #### U AX, UMICAO ####[address] [place] [address] Mucus Strands NOT REPORTED Normal NONE [facility] Comment on above: Performed By: #### U AX, UMICAO ####[address] [place] [address] Other Observations NOT REPORTED Normal NREQ [facility] Comment on above: Performed By: #### U AX, UMICAO ####[address] [place] [address] Trichomonas NOT REPORTED Normal NONE [facility] Comment on above: Performed By: #### U AX, UMICAO ####[address] [place] [address] Yeast NOT REPORTED Normal NONE [facility] Comment on above: Performed By: #### U AX, UMICAO ####[facility] [place] [address] XR LUMBAR SPINE (2-3 VIEWS)o n [...] by:RIVER Jassoigned by:Phil Messer MD04/20/18inal result Normal [facility] Otheron 03-08-2018 Negative Eventable Otheron 02-03-2018 Negative Eventable Otheron 01-30-2018 Negative Eventable [facility]acon 12-28-2017 Cholesterol [Mass/Vol] 156.0 mg/dL 0-200 [facility] Cholesterol in HDL [Mass/Vol] 54.0 mg/dL 50-100 [facility] Cholesterol in LDL [Mass/Vol] 79.0 mg/dL 0-130 [facility] Triglyceride [Mass/Vol] 116.0 mg/dL 30-150 [facility] Metabolic Panelon 12-28-2017 Albumin [Mass/Vol] 4.70 g/dL 3.7-4.5 [facility] ALP [Catalytic activity/Vol] 83.0 U/L 31-155 Event[facility] ALT [Catalytic activity/Vol] 15.0 U/L 0-50 [facility] AST [Catalytic activity/Vol] 19.0 U/L 0-40 Event[facility] Bilirubin [Mass/Vol] 0.70 mg/dL 0.0-1.0 [facility] Protein [Mass/Vol] 7.80 g/dL 6.3-7.9 [facility] Otheron 12-28-2017 Albumin/Globulin [Mass ratio] 1.5 {ratio} 1.0-2.4 [facility] Cholesterol in VLDL [Mass/Vol] 23.0 mg/dL 0-39 [facility] Cholesterol.total/Cho lesterol in HDL [Mass ratio] 3 {ratio} Eventable Negative [facility] CBCon 07-28-2017 Erythrocyte distribution width Auto Ratio (RBC) 11.8 % Normal 11.8-14.4 [facility] Comment on above: Performed By: #### C SEN, CP ####[address] [place] [address](393) Hematocrit Auto Volume Fraction (Bld) 41.2 % Normal 36.3-47.1 [facility] Comment on above: Performed By: #### C SEN, CP ####[facility] [place] [address] Hemoglobin mass conc (Bld) 14.1 g/dL Normal 11.9-15.1 [facility] Comment on above: Performed By: #### C SEN, CP ####[address] [place] [address] MCH Auto Entitic mass (RBC) 28.5 pg Normal 25.2-33.5 [facility] Comment on above: Performed By: #### C BC, CP ####[address] [place] [address] MCHC Auto mass conc (RBC) 34.2 g/dL Normal 28.4-34.8 [facility] Comment on above: Performed By: #### C BC, CP ####[address] [place] [address] MCV Auto Entitic volume (RBC) 83.2 fL Normal 82.6-102.9 [facility] Comment on above: Performed By: #### C BC, CP ####[address] [place] [address] NRBC Automated 0.0 per 100 WBC Normal 0.0 [facility] Comment on above: Result Comment: Perf ormed at [address] [place] [address] Performed By: #### C BC, CP ####[address] [place] [address] Platelet mean volume Auto Entitic volume (Bld) 9.9 fL Normal 8.1-13.5 [facility] Comment on above: Performed By: #### C BC, CP ####[address] [place] [address] Platelets Auto #/vol (Bld) 230 10*3/uL Normal 138-453 [facility] Comment on above: Performed By: #### C BC, CP ####[address] [place] [address] RBC Auto #/vol (Bld) 4.95 10*6/uL Normal 3.95-5.11 [facility] Comment on above: Performed By: #### C BC, CP ####[address] [place] [address] WBC Auto #/vol (Bld) 11.8 10*3/uL Normal 4.5-13.5 [facility] Comment on above: Performed By: #### C SEN, CP ####[address] [place] [address] Comp Metabolic Profon 2017 (cont.) Normal [facility] Comment on above: Result Comment: Aver age GFR for 20-29 years old: 116 mL/min/1.73sq mChronic Kidney Disease: <60 mL/min/1.73sq mKidney failure: <15 mL/min/1.73sq meGFR calculated using average adult body mass. Additional eGFR calculator available at:http://www.[employer]/multiple_crcl_2011.htm Performed By: #### C SEN, CP ####[address] [place] [address] Albumin mass conc 4.5 g/dL Normal 3.5-5.2 [facility] Comment on above: Performed By: #### C SEN, CP ####[address] [place] [address] Albumin/Globulin mass ratio 1.3 {ratio} Normal 1.0-2.5 [facility] Comment on above: Performed By: #### C SEN, CP ####[address] [place] [address] Alkaline Phos 81 U/L Normal 35-104 [facility] Comment on above: Performed By: #### C SEN, CP ####[address] [place] [address] ALT enzyme act/vol 23 U/L Normal 5-33 [facility] Comment on above: Performed By: #### C BC, CP ####[address] [place] [address] Anion gap 3 molar conc 13 mmol/L Normal 9-17 [facility] Comment on above: Performed By: #### C BC, CP ####[address] [place] [address] AST enzyme act/vol 23 U/L Normal <32 [facility] Comment on above: Performed By: #### C BC, CP ####[address] [place] [address] Bilirubin Ql (U) 0.23 mg/dL Low 0.3-1.2 [facility] Comment on above: Performed By: #### C BC, CP ####[address] [place] [address] BUN/CRE Ratio 17 Normal 9-20 [facility] Comment on above: Performed By: #### C BC, CP ####[address] [place] [address] Calcium mass conc 9.5 mg/dL Normal 8.6-10.4 [facility] Comment on above: Performed By: #### C BC, CP ####[address] [place] [address] Chloride molar conc 101 mmol/L Normal 98-107 [facility] Comment on above: Performed By: #### C BC, CP ####[address] [place] [address] CO2 molar conc 23 mmol/L Normal 20-31 [facility] Comment on above: Performed By: #### C BC, CP ####[address] [place] [address] Creatinine mass conc 0.69 mg/dL Normal 0.50-0.90 [facility] Comment on above: Performed By: #### C BC, CP ####[address] [place] [address] GFR, Amer >60 Normal >60 [facility] Comment on above: Performed By: #### C BC, CP ####[address] [place] [address] GFR,non Amer >60 Normal >60 [facility] Comment on above: Performed By: #### C BC, CP ####[address] [place] [address] Glucose mass conc 99 mg/dL Normal 70-99 [facility] Comment on above: Performed By: #### C BC, CP ####[address] [place] [address] Potassium molar conc 3.8 mmol/L Normal 3.7-5.3 [facility] Comment on above: Performed By: #### C BC, CP ####[address] [place] [address] Protein mass conc 8.0 g/dL Normal 6.4-8.3 [facility] Comment on above: Performed By: #### C BC, CP ####[address] [place] [address] Sodium molar conc 137 mmol/L Normal 135-144 [facility] Comment on above: Performed By: #### C BC, CP ####[address] [place] [address] Staging: Normal [facility] Comment on above: Result Comment: Stag e 1: Some kidney damage normal GFRStage 2: Mild kidney damage GFR 60-89Stage 3: Moderate kidney damage GFR 30-59Stage 4: Severe kidney damage GFR 15-29Stage 5: Severe kidney damage GFR <15ESRD - chronic treatment by dialysis or transplantPerformed at [address] [place] [address] Performed By: #### C BC, CP ####[address] [place] [address] Urea nitrogen mass conc 12 mg/dL Normal 6-20 [facility] Comment on above: Performed By: #### C BC, CP ####[address] [place] [address] HCG, ,Urineon 07-28 HCG.beta subunit ( test) Ql (U) Negative Normal NEG [facility] Comment on above: Result Comment: Spec imens [...] that such clearance is not necessary.Performed at [address] [place] [address] Performed By: #### U HCG, UA ####[address] [place] [address] Urinalysis, Routineon 2017 Acetoacetic Acid,Ur Negative Normal NEG [facility] Comment on above: Performed By: #### U HCG, UA ####[address] [place] [address] Bilirubin, SemiQt,Ur Negative Normal NEG [facility] Comment on above: Performed By: #### U HCG, UA ####[address] [place] [address] Color YELLOW Normal YEL [facility] Comment on above: Performed By: #### U HCG, UA ####[address] [place] [address] Glucose,Semi-qnt,Ur Negative Normal NEG [facility] Comment on above: Performed By: #### U HCG, UA ####[address] [place] [address] Hemoglobin, Ur Negative Normal NEG [facility] Comment on above: Performed By: #### U HCG, UA ####[address] [place] [address] Leuckocyte Esterase Negative Normal NEG [facility] Comment on above: Result Comment: Perf ormed at [address] [place] [address] Performed By: #### U HCG, UA ####[address] [place] [address] Nitrite,Ur Negative Normal NEG [facility] Comment on above: Performed By: #### U HCG, UA ####[address] [place] [address] PH,Ur 6.0 Normal 5.0-9.0 [facility] Comment on above: Performed By: #### U HCG, UA ####[address] [place] [address] Protein mass conc Negative Normal NEG [facility] Comment on above: Performed By: #### U HCG, UA ####[address] [place] [address] Spec. Drums,Ur 1.025 High 1.010-1.020 [facility] Comment on above: Performed By: #### U HCG, UA ####[address] [place] [address] Turbidity CLEAR Normal CLEAR [facility] Comment on above: Performed By: #### U HCG, UA ####[address] [place] [address] Urobilinogen,Ur Normal Normal NORM [facility] Comment on above: Performed By: #### U HCG, UA ####[address] [place] [address] Comment NOT REPORTED Normal [facility] Comment on above: Performed By: #### U HCG, UA ####[address] , [id number] [facility]acon 06-07-2016 Cholesterol mass conc 175.0 mg/dL 0-200 Bl [employer] Triglyceride mass conc 58.0 mg/dL 30-150 ReneOrdrIt Hematologyon 06-07-2016 Basophils #/vol (Bld) 0.0 10*3/uL 0.0-0.1 [facility]/100 WBC (Bld) 0.30 % 0.0-1.0 [facility]ene[facility] Eosinophils #/vol (Bld) 0.10 10*3/uL 0.0-0.5 [employer] Eosinophils/100 WBC (Bld) 1.80 % 0.0-7.0 [employer] Hematocrit Volume Fraction (Bld) 40.50 % 35.7-47.1 [facility] Hemoglobin mass conc (Bld) 13.60 g/dL 11.9-15.7 [employer] Lymphocytes #/vol (Bld) 3.40 10*3/uL 0.9-3.1 [employer] Lymphocytes/100 WBC (Bld) 41.0 % 28.0-42.0 [facility] MCH Entitic mass (RBC) 29.60 pg 23.2-33.3 [facility] MCV Entitic volume (RBC) 88.40 fL 82.0-98.4 [facility] Monocytes #/vol (Bld) 0.60 10*3/uL 0.3-1.0 B lancOrdrIt Monocytes/100 WBC (Bld) 7.40 % 4.0-12.0 [facility] [employer] [facility] Neutrophils #/vol (Bld) 4.20 10*3/uL 1.8-7.9 [facility] [employer] [facility] [employer] Neutrophils/100 WBC (Bld) 49.50 % 45.6-68.4 [facility] [employer] [facility] Platelets #/vol (Bld) 225.0 10*3/uL 150-400 [facility] [employer] [facility] RBC #/vol (Bld) 4.580 10*6/uL 3.72-5.24 [facility] [employer] [facility] WBC #/vol (Bld) 8.30 10*3/uL 3.9-10.3 [facility] tuQuejaSuma Metabolic Panelon 06-07-2016 Albumin mass conc 4.40 g/dL 3.7-4.5 [facility] Simply Measured ALP enzyme act/vol 77.0 U/L 31-155 [facility] [employer] [facility] ALT enzyme act/vol 17.0 U/L 0-50 [facility] [employer] [facility] AST enzyme act/vol 21.0 U/L 0-40 [facility] [employer] [facility] Bilirubin mass conc 0.40 mg/dL 0.0-1.0 [facility] tuQuejaSuma Protein mass conc 7.40 g/dL 6.3-7.9 [facility] tuQuejaSuma Otheron 06-07-2016 Albumin/Globulin mass ratio 1.5 {ratio} 1.0-2.4 [facility] [employer] [facility] Erythrocyte distribution width Ratio (RBC) 11.80 % 11.5-15.5 [facility] tuQuejaSuma MCHC mass conc (RBC) 33.50 g/dL 32.0-36.0 [facility] tuQuejaSuma Platelet mean volume Entitic volume (Bld) 9.0 fL 7.4-10.4 [facility] tu[facility]jaSuma Negative [facility] tu[facility]jaSuma Otheron 04-23-2016 Negative [place] [employer] Measured Otheron 03-19-2016 Negative [place] [employer] [facility] 02-12-2016 Cholesterol mass conc 175.0 mg/dL 0-200 Bl [facility] tu[facility]jaSuma Triglyceride mass conc 59.0 mg/dL 30-150 [facility] tu[facility]jaSuma Hematologyon 02-12-2016 Basophils #/vol (Bld) 0.10 10*3/uL 0.0-0.1 B [facility] tuQuejaSuma Basophils/100 WBC (Bld) 0.90 % 0.0-1.0 [place] [employer] Eosinophils #/vol (Bld) 0.10 10*3/uL 0.0-0.5 [facility] [employer] [facility] Eosinophils/100 WBC (Bld) 1.70 % 0.0-7.0 [facility] [employer] Hematocrit Volume Fraction (Bld) 41.60 % 35.7-47.1 [place] [employer] Hemoglobin mass conc (Bld) 14.0 g/dL 11.9-15.7 [place] [employer] Lymphocytes #/vol (Bld) 2.30 10*3/uL 0.9-3.1 [facility] tu[facility]jaSuma Lymphocytes/100 WBC (Bld) 36.10 % 28.0-42.0 [facility] [employer] [facility] MCH Entitic mass (RBC) 29.40 pg 23.2-33.[address] [facility] MCV Entitic volume (RBC) 87.60 fL 82.0-98.[address] [facility] Monocytes #/vol (Bld) 0.50 10*3/uL 0.3-1.0 B [facility] [employer] [facility] Monocytes/100 WBC (Bld) 7.20 % 4.0-12.[address] [facility] Neutrophils #/vol (Bld) 3.30 10*3/uL 1.8-7.9 [facility] [employer] [facility] Neutrophils/100 WBC (Bld) 54.10 % 45.6-68.4 [facility] [employer] [facility] Platelets #/vol (Bld) 180.0 10*3/uL 150-[address] [facility] RBC #/vol (Bld) 4.750 10*6/uL 3.72-5.24 [facility] [employer] [facility] WBC #/vol (Bld) 6.30 10*3/uL 3.9-10.3 [facility] [employer] [facility] Metabolic Panelon 02-12-2016 Albumin mass conc 4.50 g/dL 3.7-4.5 [facility] [employer] [facility] ALP enzyme act/vol 79.0 U/L 31-155 [facility] [employer] [facility] ALT enzyme act/vol 21.0 U/L 0-50 [facility] [employer] [facility] AST enzyme act/vol 22.0 U/L 0-40 [facility] [employer] Bilirubin mass conc 0.40 mg/dL 0.0-1.[address] [facility] [employer] Protein mass conc 7.0 g/dL 6.3-7.9 [facility] [employer] Otheron 02-12-2016 Albumin/Globulin mass ratio 1.8 {ratio} 1.0-2.4 [place] [employer] Erythrocyte distribution width Ratio (RBC) 12.10 % 11.5-15.5 [place] [employer] MCHC mass conc (RBC) 33.60 g/dL 32.0-36.0 [facility] [employer]asured Platelet mean volume Entitic volume (Bld) 9.70 fL 7.4-10.4 [place] [employer] Negative [place] [employer] Vital Signs Date Time Vital Sign Value Performing Clinician Facility 02-08-2024 13:21-0400 Body height 154.9 cm [employer] Work Phone: [facility] 02-08-2024 13:21-0400 Body mass index (BMI) [Ratio] 23.05 kg/m2 Eleazar Vijaya Dibsie Work Phone: [facility] 02-08-2024 13:21-0400 Body weight 55.34 kg Eleazar Vijaya DO Work Phone: [facility] 02-08-2024 13:21-0400 Diastolic blood pressure 64 mm[Hg] Eleazar Vijaya DO Work Phone: [facility] 02-08-2024 13:21-0400 Systolic blood pressure 102 mm[Hg] Eleazar Vijaya DO Work Phone: [facility] 02-02-2024 12:39-0400 Body height 154.94 cm [facility] 02-02-2024 12:39-0400 Body mass index (BMI) [Ratio] 22.4 kg/m2 [facility] 02-02-2024 12:39-0400 Body temperature 98.3 [degF] [facility] 02-02-2024 12:39-0400 Body weight 54 kg [facility] 02-02-2024 12:39-0400 Diastolic blood pressure 64 mm[Hg] [facility] 02-02-2024 12:39-0400 Heart rate 82 /min [facility] 02-02-2024 12:39-0400 Respiratory rate 16 /min [facility] 02-02-2024 12:39-0400 SaO2% (BldA) [Mass fraction] 98 % [facility] 02-02-2024 12:39-0400 Systolic blood pressure 108 mm[Hg] [facility] 01-24-2024 11:38-0400 Body height 154.94 cm [facility] 01-24-2024 11:38-0400 Body mass index (BMI) [Ratio] 22.6 kg/m2 [facility] 01-24-2024 11:38-0400 Body temperature 96.1 [degF] [facility] 01-24-2024 11:38-0400 Body weight 54.43 kg [facility] 01-24-2024 11:38-0400 Diastolic blood pressure 60 mm[Hg] [facility] 01-24-2024 11:38-0400 Heart rate 75 /min [facility] 01-24-2024 11:38-0400 SaO2% (BldA) [Mass fraction] 98 % [facility] 01-24-2024 11:38-0400 Systolic blood pressure 114 mm[Hg] [facility] 01-03-2024 11:26-0400 Body height 154.94 cm [facility] 01-03-2024 11:26-0400 Body mass index (BMI) [Ratio] 23.2 kg/m2 [facility] 01-03-2024 11:26-0400 Body temperature 97.8 [degF] [facility] 01-03-2024 11:26-0400 Body weight 55.79 kg [facility] 01-03-2024 11:26-0400 Diastolic blood pressure 68 mm[Hg] [facility] 01-03-2024 11:26-0400 Heart rate 90 /min [facility] 01-03-2024 11:26-0400 SaO2% (BldA) [Mass fraction] 98 % [facility] 01-03-2024 11:26-0400 Systolic blood pressure 110 mm[Hg] [facility] 07-21-2023 10:20-0400 Body height 154.94 cm [facility] 07-21-2023 10:20-0400 Body mass index (BMI) [Ratio] 27.8 kg/m2 [facility] 07-21-2023 10:20-0400 Body weight 66.67 kg [facility] 07-21-2023 10:20-0400 Diastolic blood pressure 78 mm[Hg] [facility] 07-21-2023 10:20-0400 Heart rate 61 /min [facility] 07-21-2023 10:20-0400 SaO2% (BldA) [Mass fraction] 99 % [facility] 07-21-2023 10:20-0400 Systolic blood pressure 112 mm[Hg] [facility] 03-26-2023 11:30-0500 Body height 154.94 cm Jodie Portillo Other [employer] [facility] [employer] Other 03-26-2023 11:30-0500 Body mass index (BMI) [Ratio] 27.96 kg/m2 Jodie Portillo Other [employer] Other 03-26-2023 11:30-0500 Body temperature 98.8 [degF] Jodie Portillo Other [employer] Other 03-26-2023 11:30-0500 Body weight 67.13 kg Jodie Portillo Other [employer] Other 03-26-2023 11:30-0500 Diastolic blood pressure 76 mm[Hg] Jodie Bandar Other [employer] Other 03-26-2023 11:30-0500 Respiratory rate 18 /min Jodie Bandar Other [employer] Other 03-26-2023 11:30-0500 SaO2% (BldA) [Mass fraction] 98 % Jodie Bandar Other [employer] Other 03-26-2023 11:30-0500 Systolic blood pressure 118 mm[Hg] Jodie Bandar Other [employer] Other 10-02-2022 12:25-0400 Body height 154.94 cm Deidra Castlemond Other [employer] Other 10-02-2022 12:25-0400 Body mass index (BMI) [Ratio] 27.43 kg/m2 Deidra Castlemond Other [employer] Other 10-02-2022 12:25-0400 Body temperature 97.7 [degF] Deidra Barbara Other [employer] Other 10-02-2022 12:25-0400 Body weight 65.86 kg Deidra Barbara Other [employer] Other 10-02-2022 12:25-0400 Respiratory rate 18 /min Deidra Castlemond Other [employer] Other 10-02-2022 12:25-0400 SaO2% (BldA) [Mass fraction] 97 % Deidra Barbara Other [facility] [employer] Other 05-21-2019 10:42-0500 BMI (Body Mass Index) 23.41 kg/m2 Lyricchon Pérez [employer] 05-21-2019 10:42-0500 Body Temperature 98.8 [degF] Lyricchon [employer] 05-21-2019 10:42-0500 Body weight 58.06 kg Lyricchon Pérez [facility] 05-21-2019 10:42-0500 BP Diastolic 68 mm[Hg] Lyricchon Pérez [employer] 05-21-2019 10:42-0500 BP Systolic 94 mm[Hg] Lyric Pérez [employer] 05-21-2019 10:42-0500 BSA (Body Surface Area) 1.59 m2 Lyricchon Pérez [employer] [facility] 05-21-2019 10:42-0500 Height 157.48 cm Lyric Pérez [facility]ene[facility] 05-21-2019 10:42-0500 Pulse (Heart Rate) 90 /min Lyricchon Villarreal eusebio [employer]Suma 05-11-2019 14:48-0500 BMI (Body Mass Index) 22.95 kg/m2 Hima Rene [employer] [facility] 05-11-2019 14:48-0500 Body Temperature 98.8 [degF] Hima Rene Cherellejolene tuQuejaSuma 05-11-2019 14:48-0500 Body weight 56.93 kg Hima Clemente [employer] [facility] 05-11-2019 14:48-0500 BP Diastolic 66 mm[Hg] Hima Rene Clemente [employer] [facility] 05-11-2019 14:48-0500 BP Systolic 110 mm[Hg] Hima Rene [employer] 05-11-2019 14:48-0500 BSA (Body Surface Area) 1.58 m2 Hima Rene Simply Measured 05-11-2019 14:48-0500 Height 157.48 cm Hima Rene Clemente [employer] 05-11-2019 14:48-0500 Pulse (Heart Rate) 72 /min Hima Cardoza [facility] [employer]jaSuma 04-27-2019 15:18-0500 BMI (Body Mass Index) 23.52 kg/m2 Lyric [employer] 04-27-2019 15:18-0500 Body Temperature 98.9 [degF] Lyric [employer] 04-27-2019 15:18-0500 Body weight 56.47 kg Lyric [employer] 04-27-2019 15:18-0500 BP Diastolic 60 mm[Hg] Lyric [employer] 04-27-2019 15:18-0500 BP Systolic 112 mm[Hg] Lyric Pérez [employer] 04-27-2019 15:18-0500 BSA (Body Surface Area) 1.56 m2 Lyric Pérez [employer] 04-27-2019 15:18-0500 Height 154.94 cm Lyric [employer] 04-27-2019 15:18-0500 Pulse (Heart Rate) 80 /min Lyric Kimhard Cherelle eusebio [employer] 04-09-2019 13:38-0500 BMI (Body Mass Index) 22.77 kg/m2 Lyric Pérez [employer] 04-09-2019 13:38-0500 Body Temperature 99.4 [degF] Lyric Clemente [employer] 04-09-2019 13:38-0500 Body weight 54.66 kg Lyric Pérez [employer] 04-09-2019 13:38-0500 BP Diastolic 70 mm[Hg] Lyric Pérez [employer] 04-09-2019 13:38-0500 BP Systolic 120 mm[Hg] Lyric Pérez [employer] 04-09-2019 13:38-0500 BSA (Body Surface Area) 1.53 m2 Lyric Pérez [employer] 04-09-2019 13:38-0500 Height 154.94 cm Lyric Pérez [employer] 04-09-2019 13:38-0500 Pulse (Heart Rate) 82 /min Lyric Kimhard Cherelle [employer] 02-06-2019 16:41-0400 BMI (Body Mass Index) 22.77 kg/m2 Lyric Pérez [employer] 02-06-2019 16:41-0400 Body Temperature 98.8 [degF] Lyric Rene Clemente [employer] 02-06-2019 16:41-0400 Body weight 54.66 kg Lyric Pérez [employer] 02-06-2019 16:41-0400 BP Diastolic 70 mm[Hg] Lyric Pérez [employer] 02-06-2019 16:41-0400 BP Systolic 112 mm[Hg] Lyric Pérez [employer] 10-01-2019 16:41-0400 BSA (Body Surface Area) 1.53 m2 Lyric KimOrdrIt 02-06-2019 16:41-0400 Height 154.94 cm Lyric Rene [employer] Measured 02-06-2019 16:41-0400 Pulse (Heart Rate) 72 /min Lyric rousey [employer]jaS[facility] 10-31-2018 16:58-0400 BMI (Body Mass Index) 23.43 kg/m2 Hima Rene [employer] 10-31-2018 16:58-0400 Body weight 56.25 kg Hima Faustinncjose elias Clemente [employer] 10-31-2018 16:58-0400 BP Diastolic 60 mm[Hg] Hima Faustinncjose elias Clemente [employer] 10-31-2018 16:58-0400 BP Systolic 112 mm[Hg] Hima Clemente [employer] 10-31-2018 16:58-0400 BSA (Body Surface Area) 1.56 m2 Hima Rene [employer] 10-31-2018 16:58-0400 Height 154.94 cm Hima Clemente [employer] 10-31-2018 16:58-0400 Pulse (Heart Rate) 72 /min Hima Rene Nani cammy [employer] 10-31-2018 16:58-0400 Weight 56.25 kg Hima Faustinncjose elias Clemente [employer] 08-28-2018 15:49-0400 BMI (Body Mass Index) 22.67 kg/m2 Hima Rene [employer] 08-28-2018 15:49-0400 Body Temperature 98.7 [degF] Hima Faustinncjose elias Andrade [employer] 08-28-2018 15:49-0400 Body weight 54.43 kg Hima Clemente [employer] 08-28-2018 15:49-0400 BP Diastolic 60 mm[Hg] Hima Camacho [employer]S[facility] 08-28-2018 15:49-0400 BP Systolic 120 mm[Hg] Hima Clemente [employer] 08-28-2018 15:49-0400 BSA (Body Surface Area) 1.53 m2 Hima Rene [employer] 08-28-2018 15:49-0400 Height 154.94 cm Hima Clemente [employer] 08-28-2018 15:49-0400 Pulse (Heart Rate) 66 /min Hima ma [employer] 08-28-2018 15:49-0400 Weight 54.43 kg Hima Clemente [employer] 02-09-2018 12:10-0400 BMI (Body Mass Index) 23.78 kg/m2 Hima Rene [employer] 02-09-2018 12:10-0400 Body Temperature 98.1 [degF] Hima Andrade [employer] 02-09-2018 12:10-0400 Body weight 58.97 kg Hima Clemente [employer] 02-09-2018 12:10-0400 BP Diastolic 80 mm[Hg] Hima Clemente [employer] 02-09-2018 12:10-0400 BP Systolic 104 mm[Hg] Hima Clemente [employer] 02-09-2018 12:10-0400 BSA (Body Surface Area) 1.61 m2 Hima Rene [employer] 02-09-2018 12:10040 Height 157.48 cm Hima Clemente [employer] 02-09-2018 12:100400 Pulse (Heart Rate) 64 /min Hima Cardoza [employer] 02-09-2018 12:100400 Weight 58.97 kg Hima Clemente [employer] 01-11-2018 15:19-0400 BMI (Body Mass Index) 23.32 kg/m2 Hima Rene [employer] 01-11-2018 15:19-0400 Body weight 57.83 kg Hima Clemente [employer] 01-11-2018 15:19-0400 BP Diastolic 68 mm[Hg] Hima Clemente [employer] 01-11-2018 15:19-0400 BP Systolic 106 mm[Hg] Hima Clemente [employer] 01-11-2018 15:19-0400 BSA (Body Surface Area) 1.59 m2 Hima Rene [employer] 01-11-2018 15:190400 Height 157.48 cm Hima Clemente [employer] 01-11-2018 15:19-0400 Pulse (Heart Rate) 76 /min Hima Cardoza [employer] 01-11-2018 15:19-0400 Weight 57.83 kg Hima Clemente [employer] 08-01-2017 09:57-0400 BMI (Body Mass Index) 23.59 kg/m2 Hima Cle Elum [employer] 08-01-2017 09:57-0400 Body weight 58.51 kg Hima Clemente [employer] 08-01-2017 09:57-0400 BP Diastolic 60 mm[Hg] Hima Camacho [employer] 08-01-2017 09:57-0400 BP Systolic 94 mm[Hg] Hima Clemente [employer] 08-01-2017 09:57-0400 BSA (Body Surface Area) 1.6 m2 Hima Rene [employer] 08-01-2017 09:57-0400 Height 157.48 cm Hima Clemente [employer] 08-01-2017 09:57-0400 Pulse (Heart Rate) 80 /min Hima ma [employer] 08-01-2017 09:57-0400 Weight 58.51 kg Hima Clemente [employer] 01-13-2017 12:02-0400 BMI (Body Mass Index) 22.59 kg/m2 Hima Rene [employer] 01-13-2017 12:02-0400 Body weight 56.02 kg Hima Clemente [employer] 01-13-2017 12:02-0400 BP Diastolic 76 mm[Hg] Hima Clemente [employer] 01-13-2017 12:02-0400 BP Systolic 122 mm[Hg] Hima Clemente [employer] 01-13-2017 12:02-0400 BSA (Body Surface Area) 1.57 m2 Hima Rene [employer] 01-13-2017 12:02-0400 Height 157.48 cm Hima Rene [employer] 01-13-2017 12:02-0400 Pulse (Heart Rate) 72 /min Hima Cardoza [employer] 01-13-2017 12:02-0400 Weight 56.02 kg Hima Villarreal[employer]Portal 10-29-2016 16:57-0400 BMI (Body Mass Index) 22.13 kg/m2 Hima Rene [employer] 10-29-2016 16:57-0400 Body weight 54.89 kg Hima Rene [employer] 10-29-2016 16:57-0400 BP Diastolic 60 mm[Hg] Hima Rene [employer] 10-29-2016 16:57-0400 BP Systolic 104 mm[Hg] Hima Rene [employer] 10-29-2016 16:57-0400 BSA (Body Surface Area) 1.55 m2 Hima Rene [employer] 10-29-2016 16:57-0400 Height 157.48 cm Hima Rene [employer] 10-29-2016 16:57-0400 Pulse (Heart Rate) 68 /min Hima Cardoza [employer] 10-29-2016 16:57-0400 Weight 54.89 kg Hima Rene [employer] 01-28-2016 17:46-0400 BMI (Body Mass Index) 21.67 kg/m2 Hima Kim[employer]It 01-28-2016 17:46-0400 Body weight 53.75 kg Hima Rene [employer] 01-28-2016 17:46-0400 BP Diastolic 64 mm[Hg] Hima Camacho [employer] 01-28-2016 17:46-0400 BP Systolic 94 mm[Hg] Hima Camacho [employer] 01-28-2016 17:46-0400 BSA (Body Surface Area) 1.53 m2 Hima Rene [employer] 01-28-2016 17:46-0400 Height 157.48 cm Hima Clemente [employer] 01-28-2016 17:46-0400 Pulse (Heart Rate) 64 /min Hima ma [employer] 01-28-2016 17:46-0400 Weight 53.75 kg Hima Clemente [employer] 05-30-2015 16:50-0500 BMI (Body Mass Index) 21.22 kg/m2 Hima Rene [employer] 05-30-2015 16:50-0500 Body Temperature 98 [degF] Hima chawla [employer] 05-30-2015 16:50-0500 Body weight 52.62 kg Hima Clemente [employer] 05-30-2015 16:50-0500 BP Diastolic 64 mm[Hg] Hima Clemente [employer] 05-30-2015 16:50-0500 BP Systolic 90 mm[Hg] Hima Clemente [employer] 05-30-2015 16:50-0500 BSA (Body Surface Area) 1.52 m2 Hima Rene [employer] 05-30-2015 16:50-0500 Height 157.48 cm Hima Clemente [employer] 05-30-2015 16:50-0500 Pulse (Heart Rate) 92 /min Hima Cardoza [employer] 05-30-2015 16:50-0500 Weight 52.62 kg Hima Clemente [employer] 04-08-2015 16:01-0500 BMI (Body Mass Index) 21.28 kg/m2 Hima Rene [employer] 04-08-2015 16:01-0500 Body Temperature 98.4 [degF] Hima Andrade [employer] 04-08-2015 16:01-0500 Body weight 51.94 kg Hima Clemente [employer] 04-08-2015 16:01-0500 BP Diastolic 84 mm[Hg] Hima Clemente [employer] 04-08-2015 16:01-0500 BP Systolic 118 mm[Hg] Hima Clemente [employer] 04-08-2015 16:01-0500 BSA (Body Surface Area) 1.5 m2 Hima Rene [employer] 04-08-2015 16:01-0500 Height 156.21 cm Hima Clemente [employer] 04-08-2015 16:01-0500 Pulse (Heart Rate) 72 /min Hima Cardoza [employer] 04-08-2015 16:01-0500 Weight 51.94 kg Hima Clemente [employer] Encounters Encounter Date Encounter Type Care Provider Facility Start: 02-08-2024 End: 02-08-2024 Bamboo flowsheet Eleazar Vijaya DO Work Phone: [facility] Start: 02-08-2024 End: 02-10-2024 Bamboo flowsheet Eleazar Vijaya DO Work Phone: [facility] Start: 02-08-2024 End: 02-10-2024 External Result Encounter Eleazar Vijaya DO Work Phone: [facility] External Department Unsolicited Start: 02-08-2024 End: 02-08-2024 Office outpatient visit 15 minutes Eleazar Vijaya DO Work Phone: [facility] Comment on above: Pelvic pain in femal e Start: 02-08-2024 End: 02-08-2024 ambulatory ELEAZAR VIJAYA Not Available Start: 02-02-2024 End: 02-02-2024 Departed Referred METAL CASTER Jodie Portillo Work Phone: [facility] [place] Work Phone: Start: 02-02-2024 End: 02-02-2024 ambulatory Jodie Portillo [facility] Work Phone: Start: 02-02-2024 End: 02-02-2024 Patient encounter procedure [facility] Work Phone: Start: 01-24-2024 End: 01-24-2024 ambulatory [facility] Work Phone: Start: 01-24-2024 End: 01-24-2024 Patient encounter procedure [facility] Work Phone: Start: 01-24-2024 End: 01-24-2024 ambulatory Susana Alonzo PA-C Facility:[facility] Start: 01-19-2024 Non-patient / Non-visit [facility] [employer] Work Phone: Start: 01-03-2024 End: 01-03-2024 ambulatory [facility] Work Phone: Start: 01-03-2024 End: 01-03-2024 Patient encounter procedure [facility] Work Phone: Start: 08-10-2023 End: 08-10-2023 ambulatory Susana Jayla Schlumbohm PA-C Facility:[facility] Start: 07-21-2023 End: 07-21-2023 ambulatory [facility] Work Phone: Start: 07-21-2023 End: 07-21-2023 Patient encounter procedure [facility] Work Phone: Start: 06-28-2023 ambulatory Susana Jayla Schlumbohm PA-C Facility:[facility] Start: 06-27-2023 End: 06-27-2023 ambulatory Susana Jayla Schlumbohm PA-C Facility:[facility] Start: 06-22-2023 End: 06-22-2023 ambulatory Susana Jayla Schlumbohm PA-C Facility:[facility] Start: 05-17-2023 End: 05-17-2023 ambulatory Susana Jayla Schlumbohm PA-C Facility:[facility] Start: 04-21-2023 End: 04-21-2023 ambulatory Susana Jayla Schlumbohm PA-C Facility:[facility] Start: 04-20-2023 End: 04-20-2023 ambulatory Gabino Soni PA-C Facility:[facility] Start: 03-26-2023 End: 03-26-2023 ambulatory Jodie Portillo Other [employer] Other Start: 03-26-2023 Office outpatient visit 15 minutes Jodie Portillo [facility] Start: 02-24-2023 End: 02-24-2023 ambulatory Gabino Soni PA-C Facility:[facility] Start: 02-23-2023 End: 02-23-2023 ambulatory Janeth Pérez [facility] Facility:[facility]ad Arita [facility] Start: 02-04-2023 ambulatory Gabino Soni PA-C Facility:[facility] Start: 10-02-2022 End: 10-02-2022 ambulatory Deidra Barbara Other [place] [employer] Other Start: 10-02-2022 Office outpatient ne w 20 minutes Deidra Barbara [facility] Start: 05-21-2019 Office outpatient visit 15 minutes [...] at a health care facility Hima Silver [facility] Start: 10-31-2018 [facility] [place] Other [facility] Start: 10-31-2018 Office outpatient visit 15 minutes Cheryl Dobbins Other [facility] Start: 08-28-2018 Lab [facility] [place] Other [facility] Start: 08-28-2018 Office outpatient visit 15 minutes Cheryl Dbobins Other [facility] Start: 04-20-2018 End: 04-20-2018 Emergency department patient visit [facility] Start: 03-08-2018 Lab Enrique sy Other [facility] Start: 03-08-2018 Office outpatient visit 15 minutes Vinita Ordonez Other [facility] Start: 02-09-2018 Office outpatient visit 15 minutes Lyric Pérez Other [facility] Start: 02-03-2018 End: 02-03-2018 Lab Enrique José Luis Other [facility] Start: 01-30-2018 Lab Enrique Scarbrou gh Other [facility] Start: 01-30-2018 Office outpatient visit 15 minutes Vinitagale Ordonez Other [facility] Start: 01-11-2018 Office outpatient visit 15 minutes Lyric Pérez Other [facility] Start: 12-28-2017 Office outpatient visit 15 minutes Vinita José Luis Other [facility] Office Start: 12-28-2017 Lab Enrique Hyltonu yossi Other [facility] Office Start: 08-01-2017 Office outpatient visit 25 minutes Lyric Pérez Other [facility] Office Start: 07-28-2017 End: 07-28-2017 Emergency department patient visit [facility] Start: 01-13-2017 Office outpatient visit 15 minutes Rachel Ly Other [facility] Office Start: 10-29-2016 Office outpatient visit 15 minutes Rachel Ly Other [facility] Office Start: 06-07-2016 Office outpatient visit 15 minutes Enrique José Luis Other [facility] Office Start: 04-23-2016 Office outpatient visit 15 minutes Enrique José Luis Other [facility] Office Start: 03-19-2016 Office outpatient visit 15 minutes Enrique José Luis Other [facility] Office Start: 02-12-2016 Office outpatient ne w 20 minutes Enrique José Luis Other [facility] Start: 01-28-2016 Office outpatient visit 15 minutes Lyric Pérez Other [facility] Office Start: 05-30-2015 Office outpatient visit 15 minutes Lyric Pérez Other [facility] Office Start: 04-08-2015 Office outpatient ne w 20 minutes Lyric Saad Pérez Other [facility] Office Procedures Date Procedure Procedure Detail Performing Clinician Start: 02-08-2024 End: 02-08-2024 Urnls dip stick/tablet rgnt non-auto w/o micrscp Eleazar Vijaya DO Work Phone: Start: 02-08-2024 URETHRITIS/DISCHARGE PLUS VAGINITIS (HTRX) Eleazar Vijaya DO Work Phone: Start: 01-03-2024 Quick Strep (POC) Start: 05-11-2019 Assay of thyroid stimulating hormone tsh Lyric Pérez Start: 05-11-2019 Blood count complete auto&auto difrntl wbc Lyric Pérez Start: 05-11-2019 Doc meds verified w/ pt or re [facility] Start: 05-11-2019 EBV Complete Series [place] adalgisa Pérez Start: 04-27-2019 Doc meds verified w/ pt or re Lyric Pérez Start: 04-09-2019 Doc meds verified w/ pt or re Lyric Pérez Start: 02-06-2019 Doc meds verified w/ pt or re Lyric Pérez Start: 10-31-2018 Doc meds verified w/ pt or re [facility] Start: 10-31-2018 Urnls dip stick/tabl et rgnt auto w/o microscopy [facility] Start: 08-28-2018 Ceftriaxone sodium injection [facility] Start: 08-28-2018 Doc meds verified w/ pt or re [facility] Start: 08-28-2018 Urnls dip stick/tabl et rgnt auto w/o microscopy [facility] Start: 04-20-2018 Radex spine lumbosac ral 2/3 views [facility] Start: 04-20-2018 Basic metabolic pane l calcium total [facility] Start: 04-20-2018 Blood count complete automated [facility] Start: 04-20-2018 Microscopic urinalysis [facility] Start: 04-20-2018 Urine test visual color cmprsn meths [facility] Start: 04-20-2018 URINE RT REFLEX TO CULTURE [facility] Start: 03-08-2018 Doc meds verified w/ pt or re [facility] Start: 03-08-2018 Urine test visual color cmprsn meths [facility] Start: 02-09-2018 Doc meds verified w/ pt or re [facility] Start: 02-03-2018 Urine test visual color cmprsn meths [facility] Start: 01-30-2018 Doc meds verified w/ pt or re [facility] Start: 01-30-2018 Urine test visual color cmprsn meths [facility] Start: 01-11-2018 Doc meds verified w/ pt or re [facility] Start: 12-28-2017 Doc meds verified w/ pt or re [facility] Start: 12-28-2017 Gonadotropin chorion ic qualitative [facility] Start: 12-28-2017 Hepatic function panel [facility] Start: 12-28-2017 Lipid panel [facility] Start: 07-28-2017 CBC [facility] Start: 07-28-2017 Comprehensive metabo lic 2000 panel - Serum or Plasma [facility] Start: 07-28-2017 , URINE HEATHE R CARONE Start: 07-28-2017 Urinalysis [facility] Start: 01-13-2017 Doc meds verified w/ pt or re [facility] Start: 06-07-2016 Assay of triglycerides [facility] Start: 06-07-2016 Blood count complete auto&auto difrntl wbc [facility] Start: 06-07-2016 Cholesterol serum/wh ole blood total [facility] Start: 06-07-2016 Gonadotropin chorion ic qualitative [facility] Start: 06-07-2016 Hepatic function panel [facility] Start: 04-23-2016 Urine test visual color cmprsn meths [facility] Start: 03-19-2016 Urine test visual color cmprsn meths [facility] Start: 02-12-2016 Assay of triglycerides [facility] Start: 02-12-2016 Blood count complete auto&auto difrntl wbc [facility] Start: 02-12-2016 Cholesterol serum/wh ole blood total [facility] Start: 02-12-2016 Gonadotropin chorion ic qualitative [facility] Start: 02-12-2016 Hepatic function panel [facility] Plan of Treatment Date Care Activity Detail Author Start: 03-07-2024 ambulatory Ambulatory Facility:[facility] Start: 02-28-2024 End: 02-28-2024 Patient encounter procedure 02/28/2024 8:10 AM EDT Office Visit [facility] [address] [place] [id number] Eleazar Lilly, DO [address] [place] [address] [facility] Start: 02-08-2024 End: 02-07-2025 SURESWAB(R) ADVANCED VAGINITIS PLUS, TMA SURESWAB(R) ADVANCED VAGINITIS PLUS, TMA Pathology and Cytology Routine Pelvic pain in female Expected: 02/08/2024 (Approximate), Expires: 02/07/2025 [facility] Work Phone: Comment on above: Expected: 02/08/2024 (Approximate), Expires: 02/07/2025 Start: 02-08-2024 End: 02-07-2025 US for US PELVIS-TRANSVAG IF INDICATED Imaging Routine Pelvic pain in female Expected: 02/08/2024 (Approximate), Expires: 02/07/2025 [facility] Comment on above: Expected: 02/08/2024 (Approximate), Expires: 02/07/2025 Start: 02-08-2024 End: 02-08-2024 Patient encounter procedure 02/08/2024 1:20 PM EDT Office Visit [facility] [address] [place] [id number] Eleazar Lilly, DO [address] [place] [address] Arrived [facility] Comment on above: Arrived Start: 02-02-2024 [facility] Start: 01-08-2024 Influenza vaccination Influenza Vacc ine (#1) [facility] Start: 05-11-2019 Blood count complete auto&auto difrntl wbc CBC w diff [employer] Start: 05-11-2019 TSH Qn TSH [facility] Start: 11-02-2018 Blood count complete automated CBC & PLATELET COUNT; AUTOMATED [facility] Start: 11-02-2018 Comprehensive metabo lic panel Comprehensive metabolic panel [facility] Start: 11-02-2018 Gonadotropin chorion ic qualitative [facility] Start: 11-02-2018 Hemoglobin A1c/Hemoglobin.total mass fraction (Bld) Hgb A1c [facility] Start: 11-02-2018 Lipid panel Lipid panel [facility] Start: 11-02-2018 Thyrotropin Qn TSH (thyroid stimulating hormone) [facility] Start: 11-02-2018 Urnls dip stick/tabl et rgnt auto w/o microscopy UA [facility] Atopobium vaginae DN A [Presence] in Vaginal fluid by ELDON with probe detection [facility] Bacterial vaginosis associated bacterium 2 DNA [Presence] in Vaginal fluid by ELDON with probe detection [facility] CHLAMYDIA TRACHOMATI S (GENITO/STI) CHLAMYDIA TRACHOMATIS (GENITO/STI) Lab Routine Pelvic pain in female Ordered: 02/08/2024 [facility] Comment on above: Ordered: 02/08/2024 Estradiol (E2) [Mass/volume] in Serum or Plasma [facility] Estrogen [Mass/volum e] in Serum or Plasma [facility] Holter monitor study [facility] Lutropin [Units/volu me] in Serum or Plasma [facility] Megasphaera sp type 1 DNA [Presence] in Vaginal fluid by ELDON with probe detection [facility] Neisseria gonorrhoea e DNA [Presence] in Unspecified specimen by ELDON with probe detection Neisseria gonorrhea DNA probe, direct Lab Routine Pelvic pain in female Ordered: 02/08/2024 [facility] Comment on above: Ordered: 02/08/2024 Progesterone [Mass/volume] in Serum or Plasma [facility] XR Cervical spine 5 Views [facility] XR Thoracic and lumb ar spine Views for scoliosis [facility] Payers Date Payer Category Payer Self-pay 2022 Medicaid [place] [employer] [place] [id number] 2022-Present [address] [place] [address] [id number] 2022 Medicaid [id number] 2022 Unknown 2015 Unknown [id number] [id number] 2014 Unknown [id number] 1996 Unknown [id number] 2.16.840.1.847952.3.579.2.173 1996 Unknown [id number] 2.16.840.1.415026.3.579.2.173 1996 Unknown [id number] 2.16.840.1.199045.3.579.2.196 1996 Unknown [id number] 2.16.840.1.582587.3.579.2.196 1996 Unknown [id number] 2.16.840.1.297664.3.579.2.196 1996 Unknown [id number] 2.16.840.1.004804.3.579.2.196 1996 Unknown [id number] 2.16.840.1.280615.3.579.2.196 1996 Unknown [id number] 2.16.840.1.856981.3.579.2.196 1996 Unknown [id number] 2.16.840.1.361335.3.579.2.196 1996 Unknown [id number] 2.16.840.1.322143.3.579.2.196 1996 Unknown [id number] 2.16.840.1.003548.3.579.2.196 1996 Unknown [id number] 2.16.840.1.366588.3.579.2.196 1996 Unknown [id number] 2.16.840.1.474007.3.579.2.196 1996 Unknown [id number] 2.16.840.1.197774.3.579.2.196 1996 Unknown [id number] 2.16.840.1.070759.3.579.2.196 1996 Unknown [id number] 2.16.840.1.379982.3.579.2.196 1996 Unknown [id number] 2.16.840.1.281555.3.579.2.1259 Unknown [id number] 2.16.840.1.833328.3.579.2.531 Social History Date Type Detail Facility Start: Unknown if ever smoked [facility] Start: 1 can pop/day [facility] Sex Assigned At [facility] Start: 07-21-2023 End: 02-02-2024 Tobacco smoking status TNIS Never smoked tobacco (finding) [facility] Start: 1995 Sex Assigned At Female F [facility] [place] Tobacco smoking status [facility] Tobacco smoking consumption unknown [facility] Start: 1995 Sex assigned at Not on file [facility] History of Present illness Narrative 02-08-2024 Yaneli Xavier LPN - 02/08/2024 1:20 PM EDT Note Date & Type Note Facility 02-08-2024 History of Presen t illness Narrative Reason for Appointment: Patient ID: Cristiane Dunbar is a 28 y.o. female who presents for Pelvic Pain Patient presents today for Acute Visit. and STD Check. MEDICATIONS Current Outpatient Medications Medication Instructions sertraline (Zoloft) 25 MG tablet Daily ALLERGIES No Known Allergies PROBLEMS Active Ambulatory Problems Diagnosis Date Noted No Active Ambulatory Problems Resolved Ambulatory Problems Diagnosis Date Noted No Resolved Ambulatory Problems No Additional Past Medical History HISTORY PAST MEDICAL HISTORY SOCIAL HISTORY History reviewed. No pertinent past medical history. Social History Tobacco Use Smoking status: Not on file Smokeless tobacco: Not on file Substance Use Topics Alcohol use: Not on file Drug use: Not on file FAMILY HISTORY Family History Problem Relation Name Age of Onset Lung cancer Maternal Grandmother SURGICAL HISTORY History reviewed. No pertinent surgical history. REVIEW OF SYSTEMS Review of Systems: Review of Systems Constitutional: Negative. HENT: Negative. Eyes: Negative. Respiratory: Negative. Cardiovascular: Negative. Gastrointestinal: Negative. Genitourinary: Negative. Musculoskeletal: Negative. Skin: Negative. Neurological: Negative. All other systems reviewed and are negative. Hematological: Negative. Endocrine: Negative. Allergic/Immunologic: Negative. OBJECTIVE Objective: Physical Exam Constitutional: Appearance: Normal appearance. She is well-developed. Genitourinary: Vulva normal. Cardiovascular: Rate and Rhythm: Normal rate and regular rhythm. Pulmonary: Effort: Pulmonary effort is normal. Breath sounds: Normal breath sounds. Abdominal: General: Bowel sounds are normal. There is no distension. Palpations: Abdomen is soft. Tenderness: There is no abdominal tenderness. There is no guarding or rebound. Musculoskeletal: General: No swelling. Normal range of motion. Right lower leg: No edema. Left lower leg: No edema. Neurological: Mental Status: She is alert and oriented to person, place, and time. Skin: General: Skin is warm and dry. Psychiatric: Mood and Affect: Mood normal. Behavior: Behavior normal. Vitals and nursing note reviewed. Exam conducted with a manager community relations present. Vitals: Estimated body mass index is 23.05 kg/m as calculated from the following: Height as of this encounter: 5' 1 . Weight as of this encounter: 122 lb. BP: 102/64 Patient's last menstrual period was 01/23/2024. ASSESSMENT & PLAN ICD-10-CM 1. Pelvic pain in female R10.2 POCT urinalysis dipstick manually resulted POCT , urine manually resulted SURESWAB(R) ADVANCED VAGINITIS PLUS, TMA Neisseria gonorrhea DNA probe, direct CHLAMYDIA TRACHOMATIS (GENITO/STI) US PELVIS-TRANSVAG IF INDICATED Pt presents with pelvic pain and dyspareunia. Pt UA and preg test neg, cultures obtained. Pelvic exam performed. Pt stated painful bladder swipe and cervical motion tenderness. Rx for doxy faxed to pharmacy. Pt given ultrasound to have obtained. Pt to return for annual, unless needed sooner. Telehealth in 6-8 weeks for follow up on pelvic pain- discussed dx lap and control in future Documented by Yaneli Xavier LPN on behalf of: Eleazar Lilly DO documented in this encounter [facility] Evaluation note 03-26-2023 Note Date & Type [...] verbalized understanding and agrees with treatment plan [facility] Clinical Note 02-22-2023 Note Date & Type Note Facility 02-22-2023 Note Patient Education Ma terials Name: ManjinderCristiane Current Date: 02/22/2023 08:04:31 [place] : 1995 The following sheet(s) are the [...] breast self-examination (BSE). These experts include the [place] [employer], the U.[place]. Preventive Services Task Force, and the [place] [employer] and Gynecologists. Some experts [...] This means they are not cancer. ? [id number] [employer]. [address] [place] [address], [place] [address]. All rights reserved. This information is not intended as a substitute for professional medical care. Always follow your healthcare professional's instructions. [facility] Evaluation note 10-02-2022 Note Date & [...] no improvement in 2 to 3 days [facility] Other Evaluation note Note Date & Type Note Facility Evaluation note Diagnosis Onset Date Acquired scoliosis acute Daily headache acute Fatigue acute Hot flashes acute Irregular menstrual cycle ac [place] Neck pain acute [facility] Work Phone: Evaluation note Note Date & Type Note Facility Evaluation note Diagnosis Onset Date Dizziness acute Heart palpitations acute [facility] Work Phone: Evaluation note Note Date & Type Note Facility Evaluation note Diagnosis Onset Date Dizziness acute Heart palpitations acute Anxiety acute Depression [facility] Work Phone: Evaluation note Note Date & Type Note Facility Evaluation note Diagnosis Onset Date Dizziness acute Heart palpitations acute Anxiety acute Depression acute Vaginal discharge noneactive Acute effusion of both middle ears noneactive [facility] Work Phone: Evaluation note Note Date & Type Note Facility Evaluation note Diagnosis Pelvic pain in female Unspecified symptom associated with female genital organs documented in this encounter [facility] Summary Purpose Family History Relationship Condition Age at Onset Recorded Date/T kacey father Hypertension Unknown Advance Directives Advance Directive Response Recorded Date/ Time Advance Directives No July 20, 024 8:38am Advance Directive Response Recorded Date/ Time Advance Directives No January 12:05pm Chief Complaint and Reason for Visit Chief Complaint Establish Reason for Visit Acquired scoliosis Daily headache Fatigue Hot flashes Irregular menstrual cycle Neck pain Chief Complaint tonsil stones, fatig ue Reason for Visit Dizziness Heart palpitations Chief Complaint tonsil stones, fatig ue talk about anxiety Reason for Visit Dizziness Heart palpitations Anxiety Depression Chief Complaint tonsil stones, fatig ue talk about anxiety L ear pain, std testing Reason for Visit Dizziness Heart palpitations Anxiety Depression Chief Complaint tonsil stones, fatig ue talk about anxiety L ear pain, std testing Pruritus of vagina Reason for Visit Dizziness Heart palpitations Anxiety Depression Vaginal discharge Acute effusion of both middle ears Additional Source Comments INFORMATION SOURCE (unrecogn ized section and content) DATE CREATED AUTHOR 04/25/2018 Hannah Avalos [facility] DATE CREATED AUTHOR AUTHOR'S ORGANIZ ATION 12/02/2019 [facility] DATE CREATED AUTHOR AUTHOR'S ORGANIZ ATION 01/27/2024 [facility] DATE CREATED AUTHOR AUTHOR'S ORGANIZ ATION 02/06/2024 [facility] DATE CREATED AUTHOR AUTHOR'S ORGANIZ ATION 02/10/2024 [facility] EPIC REASON FOR VISIT (unrecogniz ed section and content) Reason Comments Pelvic Pain Care Teams (unrecognized sec tion and content) Team Status: Active Member Role Status Dates Evelyn Vu APRN DIRECTOR OF CONTENT AND PROGRAMMING-C Primary Care Provider Active Team Status: Inactive Member Role Status Dates Evelyn Vu APRN DIRECTOR OF CONTENT AND PROGRAMMING-C Primary Care Provider, Attending Provider Active Start: July 21, 2023 End: July 21, 2023 Team Status: Inactive Member Role Status Dates Evelyn Vu APRN DIRECTOR OF CONTENT AND PROGRAMMING-C Primary Care Provider, Attending Provider Active Start: January 03, 2024 End: January 03, 2024 Team Status: Active Member Role Status Dates Evelyn Vu APRN DIRECTOR OF CONTENT AND PROGRAMMING-C Primary Care Provider Active Start: January 072023 Ty Aguilar DO Attending Provider Active S tart: January 19, 2024 Team Status: Inactive Member Role Status Dates Evelyn Vu APRN DIRECTOR OF CONTENT AND PROGRAMMING-C Primary Care Provider, Attending Provider Active Start: January 24, 2024 End: January 24, 2024 Team Status: Inactive Member Role Status Dates Evelyn Vu APRN DIRECTOR OF CONTENT AND PROGRAMMING-C Primary Care Provider Active Start: January 082023 End: February 02, 2024 Jodie Portillo APRN Attending Provider Active Start: February 02, 2024 End: February 02, 2024 Team Status: Inactive Member Role Status Dates Jodie Portillo APRN Attending Provider Active Start: February 02, 2024 End: February 02, 2024 Acute Care Occupational Therapist Relationship Specialty Start Date End Date Corwin Dee DO [address] [place] [address] PCP - General Family Medicine 09/14/22 Acute Care Occupational Therapist Relationship Specialty Start Date End Date Corwin Dee DO [address] [place] [address] PCP - General Family Medicine 09/14/22 Acute Care Occupational Therapist Relationship Specialty Start Date End Date Corwin Dee DO [address] [place] [address] PCP - General Family Medicine 09/14/22 Goals (unrecognized section and content) Goals may [...] BE BASED ON THE PRIMARY CLINICAL RECORDS. [employer] provides no warranty or guarantee of the accuracy or completeness of information in this document.
== END 2024-02-20 10:30 | disposition home or self-care (01) ==
LOC: US 10:29
PROVIDERS: PCP Nurse Practitioner Family; Visit Provider Obstetrics & Gynecology
DX: R10.2 Pelvic and perineal pain (principal); N83.292 Other ovarian cyst, left side
CPT/HCPCS: 76830; 76856

== ENCOUNTER 2024-02-21 10:21 | Outpatient (OUT) | payer MEDICAID, SELFPAY ==
--- OUTSIDE RECORDS SUMMARY | 2024-02-21 10:42 | XMS_ITS | CCD ---
Author Organization [facility] Care Team Providers Care Explosives Handler Name Role Phone TALON VERAS Unavailable Unavailable [...] PA-C, Susana Dickerson Primary Care U navailable Tryojosé miguel MONTERROSON-MANUFACTURING RECRUITER, Ana Serra Attending Carley vailable Schlumbohm PA-C, [...] Gabino Portillo Primary Care Unavail able Cleemput BIN CLEANER-MANUFACTURING RECRUITER, Cheryl Shields Attending Unandkirk DE PAZC, Gabino Portillo Primary Care Unavail able Schnormaohm ZANDRAC, Susana Dickerson Attending U navailable Cheri DE PAZC, Susana Dickerson Attending U vanailable Zachariah DE PAZC, Gabino Portillo Primary Care Unavail able Schluoylohm PA-C, Susana Dickerson Primary Care U navailable Schnormaohm PA-C, Susana Dickerson Attending U navailable Beto [facility], Janeth Maldonado Attending Unavail able Zachariah MARIE-C, Gabino Portillo Primary Care Unavail able Schsimran PA-C, Susana Dickerson Primary Care U navailable Troy BIN CLEANER-MANUFACTURING RECRUITER, Ana Serra Attending Carley verito DE PAZC, Gabino Portillo Primary Care Unavail able Troy BIN CLEANER-MANUFACTURING RECRUITER, Ana Serra Attending Carley verito DE PAZC, Gabino Portillo Primary Care Unavail able Troy BIN CLEANER-MANUFACTURING RECRUITER, Ana Serra Attending Carley GELACIO Holt Attending [...] cough Start: 05-21-2019 take 1 capsule by [facility] three times daily as needed [...] 0.000 [facility] ATOPOBIUM VAGINAE Not detected [facility] BVAB 2,3 (BACTERIAL VAGINOSIS ASSOCIATED BACTERIA 2, [...] Interpretation and review of laboratory results Normal [facility] Preg Test, Ur Negative [facility] Urinalysis macro (dipstick) panel (U)on 02-08-2024 Bilirubin, UA Negative Negative - 4(70) +++ mg/dL [facility] Blood, UA Negative Negative - 50 Fuad/mcL [facility] Clarity, UA Clear [facility] Color, UA Yellow [facility] Glucose, UA Negative Negative - 2000(110) ++++ mg/dL [facility] Interpretation and review of laboratory results Normal [facility] Ketones, UA Negative Negative - 160(16) ++++ mg/dL [facility] Leukocytes, UA Negative Negative - 500+++ Sandie/mcL [facility] Nitrite, UA Negative Negative - Positive [facility] pH, UA 7.5 5 - 9 [facility] Protein, UA Negative Negative - 2000(20) ++++ mg/dL [facility] Spec Grav, UA 1.020 1 - 1.03 [facility] Urobilinogen, UA 0.2 0.2 - 12 mg/dL [facility] Vaginitis Plus (VG+)on 02-01 Atopobium Vaginae Low - 0 Normal . [facility] Comment on above: Result Comment: This test was developed and its performance characteristics determined by [facility]. It has not been cleared or approved by the Food and Drug Administration. Performed By: #### V AGINITIS+ #### [facility] , BVAB2 Low - 0 Normal . [facility] Comment on above: Result Comment: This test was developed and its performance characteristics determined by [facility]. It has not been cleared or approved by the Food and Drug Administration. Performed By: #### V AGINITIS+ #### [facility] , Alicia Albicans, ELDON Positive Critically abnormal Negative [facility] Comment on above: Result Comment: This test was developed and its performance characteristics determined by [facility]. It has not been cleared or approved by the Food and Drug Administration. Performed By: #### V AGINITIS+ #### [facility] , Alicia Glabrata, ELDON Negative Normal Negative [facility] Comment on above: Result Comment: This test was developed and its performance characteristics determined by [facility]. It has not been cleared or approved by the Food and Drug Administration. PERFORMED BY: [facility] [address] PATHOLOGIST LEVEL VIAL MARKER IRENE TURPIN M.D. Performed By: #### V AGINITIS+ #### [facility] , Chlamydia Trachomotis, ELDON Negative Normal Negative [facility] Comment on above: Performed By: #### V AGINITIS+ #### [facility] , Megasphaera Low - 0 Normal . [facility] Comment on above: Result Comment: [...] Neisseria Gonorrhoeae, ELDON Negative Normal Negative [facility] Comment on above: Result Comment: Perf ormed at: =G - [facility] [address] [id number] [employer] Maintainer: Bri Keenan MD, Phone: [phone] Performed By: #### V AGINITIS+ #### [facility] , Tric Vag ELDON Negative Normal Negative [facility] Comment on above: Performed By: #### V AGINITIS+ #### [facility] , Basophils Auto (Bld) [#/Vol] on 01-19-2024 Basophils (Bld) [#/Vol] 0.0 10 3/uL 0.0-0.1 [facility] Basophils/100 WBC Auto (Bld) on 01-19-2024 Basophils/100 WBC (Bld) 0.4 % 0.2-2.0 [facility] Eosinophils/100 WBC Auto (Bl d)on 01-19-2024 Eosinophils/100 WBC (Bld) 1.0 % 0.9-7.0 [facility] Erythrocyte distribution wid th Auto (RBC) [Ratio]on 01-19-2024 Erythrocyte distribution width (RBC) [Ratio] 11.7 % 11.0-15.0 [facility] Estimated glomerular filtrat ion rate (GFR) non- Americanon 01-19-2024 GFR/1.73 sq M.predicted among non-blacks MDRD (S/P/Bld) [Vol rate/Area] mL/min/{1.73_m2} >=60 [facility] Hematocrit Auto (Bld) [Volum e fraction]on 01-19-2024 Hematocrit (Bld) [Volume fraction] 39.6 % 36.0-48.0 [facility] Hemoglobin [Mass/volume] in Bloodon 01-19-2024 Hemoglobin (Bld) [Mass/Vol] 14.3 g/dL 12.0-16.0 [facility] Laboratory - Chemistry and C hemistry - challengeon 01-19-2024 Calcium [Mass/Vol] 8.7 mg/dL 8.5-10.1 [facility] Chloride [Moles/Vol] 100 mmol/L 98-107 [facility] CO2 [Moles/Vol] 27.5 mmol/L 21.0-32.0 [facility] Creatinine [Mass/Vol] 0.88 mg/dL 0.55-1.02 [facility] GFR/1.73 sq M.predicted MDRD (S/P/Bld) [Vol rate/Area] mL/min/{1.73_m2} >=60 [facility] Glucose [Mass/Vol] 94 mg/dL 74-106 [facility] Potassium [Moles/Vol] 3.3 mmol/L Low 3.5-5.1 [facility] Sodium [Moles/Vol] 135 mmol/L Low 136-145 [facility] Urea nitrogen [Mass/Vol] 12.0 mg/dL 7.0-18.0 [facility] Urea nitrogen/Creatinine [Mass ratio] 13.6 mg/mg [facility] Laboratory - Hematology and Cell countson 01-19-2024 Immature granulocytes/100 WBC (Bld) 0.0 % 0.0-0.5 [facility] Leukocytes [#/volume] correc leonidas for nucleated erythrocytes in Blood by Automated counon 01-19-2024 WBC corrected for nucl RBC Auto (Bld) [#/Vol] 4.8 10 3/uL 4.0-11.0 [facility] Lymphocytes Auto (Bld) [#/Vo l]on 01-19-2024 Lymphocytes (Bld) [#/Vol] 1.2 10 3/uL 1.2-3.8 [facility] Lymphocytes/100 WBC Auto (Bl d)on 01-19-2024 Lymphocytes/100 WBC (Bld) 25.1 % 20.5-60.0 [facility] MCH Auto (RBC) [Entitic mass ]on 01-19-2024 MCH (RBC) [Entitic mass] 30.4 pg 26.7-34.0 [facility] MCHC Auto (RBC) [Mass/Vol]on 01-19-2024 MCHC (RBC) [Mass/Vol] 36.1 g/dL High 29.9-35.2 [facility] MCV Auto (RBC) [Entitic vol] on 01-19-2024 MCV (RBC) [Entitic vol] 84.1 fL 81.0-99.0 [facility] Monocytes Auto (Bld) [#/Vol] on 01-19-2024 Monocytes (Bld) [#/Vol] 0.6 10 3/uL 0.3-0.8 [facility] Monocytes/100 WBC Auto (Bld) on 01-19-2024 Monocytes/100 WBC (Bld) 11.6 % 1.7-12.0 [facility] Neutrophils Auto (Bld) [#/Vo l]on 01-19-2024 Neutrophils (Bld) [#/Vol] 3.0 10 3/uL 1.4-6.5 [facility] Neutrophils/100 WBC Auto (Bl d)on 01-19-2024 Neutrophils/100 WBC (Bld) 61.9 % 43.0-75.0 [facility] No Panel Informationon 01-18 Eosinophils # (Auto) 0.1 10 3/uL 0.0-0.7 [facility] Human Chorionic Gonadotropin, Qual Negative NEGATIVE [facility] Immature Granulocyte # (Auto) 0.00 10 3/uL 0.00-0.03 [facility] Platelet mean volume Auto (B ld) [Entitic vol]on 01-19-2024 Platelet mean volume (Bld) [Entitic vol] 11.2 fL 9.5-13.5 [facility] Platelets Auto (Bld) [#/Vol] on 01-19-2024 Platelets (Bld) [#/Vol] 137 10 3/uL Low 150-450 [facility] RBC Auto (Bld) [#/Vol]on RBC (Bld) [#/Vol] 4.71 10 6/uL 4.20-5.40 [facility] Serum or plasma anion gap de terminationon 01-19-2024 Anion gap [Moles/Vol] 10.8 mmol/L [facility] Choriogonadotropin.beta subu nit ( test) [Presence] in Urineon 01-03-2024 Beta HCG ( test) Ql (U) Negative [facility] Influenza virus A and B and SARS-CoV-2 (COVID-19) RNA panel - Respiratory system specon 01-03-2024 Influenza virus A and B RNA and SARS-CoV-2 (COVID-19) N gene panel ELDON+probe (Resp) Negative [facility] Laboratory - Microbiology an d Antimicrobial susceptibilityon 01-03-2024 SARS-CoV-2 (COVID-19) RNA ELDON+probe Ql (Unsp spec) Negative [facility] No Panel Informationon 01-02 POC Influenza B (ELDON) Negative [facility] No Panel InformationOrdered By: Evelyn Vu on 01-03-2024 Quick Strep (POC) [facility] Family Medicine Office/Clini c Noteon 05-17-2023 [...] weakness, visual symptoms. She works at the [employer], not using computer often besides being on [...] Avoid eating within 3 hours of bed; process description writer dinner; limit drinking before bed; Avoid food triggers; Avoid alcohol and caffeine (especially before bed). Raise head of bed. Call or RTO if symptoms are not improving, changing or progressing. Ordered: omeprazole, 1 caps, Oral, Daily, before a meal, # 30 caps, 3 Refill(s), Pharmacy: [id number] Orders: venlafaxine, 2 caps, Oral, Daily, Take one capsule for at least 4 days then start taking 2 capsules once daily., # 60 caps, 3 Refill(s), Pharmacy: [facility] Time Spent with the Pat (more content not included)... Normal [facility] .eGFRon 04-21-2023 GFR/1.73 sq M.predicted MDRD (S/P/Bld) [Vol rate/Area] mL/min/{1.73_m2} Normal >=60 [facility] Comment on above: Result Comment: [facility] Laboratories have implemented the eGFR calculation approach [...] years Performed By: #### E GFR #### [facility] [address] [place] [address] CBC w/ Diffon 04-21-2023 Erythrocyte distribution width (RBC) [Ratio] 13.2 % Normal 11.6-14.8 [facility] Comment on above: Performed By: #### C BC #### [facility] [address] [place] [address] Hematocrit (Bld) [Volume fraction] 41.7 % Normal 36.0-46.0 [facility] Comment on above: Performed By: #### C BC #### [address] [address] Hemoglobin (Bld) [Mass/Vol] 14.4 g/dL Normal 12.0-16.0 [facility] Comment on above: Performed By: #### C BC #### [address] [address] MCH (RBC) [Entitic mass] 29.6 pg Normal 27.0-35.0 [facility] Comment on above: Performed By: #### C BC #### [address] [address] MCHC 34.4 % Normal 31.0-37.0 [facility] Comment on above: Performed By: #### C BC #### [address] [address] MCV (RBC) [Entitic vol] 85.9 fL Normal 80.0-100.0 [facility] Comment on above: Performed By: #### C BC #### [address] [address] Platelet 171 x10*3/mcL Normal 150-450 [facility] Comment on above: Performed By: #### C BC #### [address] [address] Platelet mean volume (Bld) [Entitic vol] 9.4 fL Normal 6.7-10.6 [facility] Comment on above: Performed By: #### C BC #### [address] [address] RBC 4.86 x10*6/mcL Normal 3.80-5.20 [facility] Comment on above: Performed By: #### C BC #### [address] [address] WBC 6.1 x10*3/mcL Normal 4.5-11.0 [facility] Comment on above: Performed By: #### C BC #### [address] [address] CMPon 04-21-2023 Albumin [Mass/Vol] 4.3 g/dL Normal 3.2-4.9 [facility] Comment on above: Performed By: #### C OMP #### [address] [address] Albumin/Globulin [Mass ratio] 1.2 {ratio} Normal 1.1-2.2 [facility] Comment on above: Performed By: #### C OMP #### [address] [address] Alk Phos 65 IU/L Normal 32-91 [facility] Comment on above: Performed By: #### C OMP #### [address] [address] ALT [Catalytic activity/Vol] 23 U/L Normal 14-54 [facility] Comment on above: Performed By: #### C OMP #### [address] [address] Anion gap [Moles/Vol] 10 mmol/L Normal 7-17 [facility] Comment on above: Performed By: #### C OMP #### [address] [address] AST [Catalytic activity/Vol] 25 U/L Normal 15-41 [facility] Comment on above: Performed By: #### C OMP #### [address] [address] Bili Total 0.7 mg/dL Normal 0.3-1.2 [facility] Comment on above: Performed By: #### C OMP #### [address] [address] Calcium [Mass/Vol] 9.5 mg/dL Normal 8.5-10.3 [facility] Comment on above: Performed By: #### C OMP #### [address] [address] Chloride [Moles/Vol] 109 mmol/L Normal 98-110 [facility] Comment on above: Performed By: #### C OMP #### [address] [place] [address] CO2 [Moles/Vol] 26 mmol/L Normal 22-32 [facility] Comment on above: Performed By: #### C OMP #### [address] [address] Creatinine [Mass/Vol] 1.08 mg/dL High 0.44-1.03 [facility] Comment on above: Performed By: #### C OMP #### [address] [address] Glucose [Mass/Vol] 97 mg/dL Normal 70-99 [facility] Comment on above: Performed By: #### C OMP #### [address] [address] Potassium [Moles/Vol] 3.9 mmol/L Normal 3.4-4.8 [facility] Comment on above: Performed By: #### C OMP #### [address] [address] Protein [Mass/Vol] 7.8 g/dL Normal 6.5-8.1 [facility] Comment on above: Performed By: #### C OMP #### [address] [address] Sodium [Moles/Vol] 141 mmol/L Normal 133-142 [facility] Comment on above: Performed By: #### C OMP #### [address] [address] Urea nitrogen [Mass/Vol] 8 mg/dL Normal 8-26 [facility] Comment on above: Performed By: #### C OMP #### [address] [address] Urea nitrogen/Creatinine [Mass ratio] 7.4 mg/mg Low 10.0-20.0 [facility] Comment on above: Performed By: #### C OMP #### [address] [address] Diff Autoon 04-21-2023 Baso Absolute 0.0 x10*3/mcL Normal 0.0-0.2 [facility] Comment on above: Performed By: #### . Automated Diff #### [address] [address] Basophils/100 WBC (Bld) 0.4 % Normal 0.0-1.5 [facility] Comment on above: Performed By: #### . Automated Diff #### [address] [address] Eos Absolute 0.1 x10*3/mcL Normal 0.0-0.4 [facility] Comment on above: Performed By: #### . Automated Diff #### [address] [address] Eosinophils/100 WBC (Bld) 1.3 % Normal 0.0-5.4 [facility] Comment on above: Performed By: #### . Automated Diff #### [address] [address] Lymph Absolute 2.3 x10*3/mcL Normal 1.0-4.8 [facility] Comment on above: Performed By: #### . Automated Diff #### [address] [address] Lymphocytes/100 WBC (Bld) 37.8 % Normal 27.2-40.8 [facility] Comment on above: Performed By: #### . Automated Diff #### [address] [address] Ware Absolute 0.4 x10*3/mcL Normal 0.1-1.1 [facility] Comment on above: Performed By: #### . Automated Diff #### [address] [address] Monocytes/100 WBC (Bld) 5.8 % Normal 3.7-11.9 [facility] Comment on above: Performed By: #### . Automated Diff #### [address] [address] Neutro Absolute 3.4 x10*3/mcL Normal 1.8-7.7 [facility] Comment on above: Performed By: #### . Automated Diff #### [address] [address] Neutro Auto 54.7 % Normal 47.2-70.8 [facility] Comment on above: Performed By: #### . Automated Diff #### [address] [address] Lipid Panelon 04-21-2023 Cholesterol in LDL [Mass/Vol] 140 mg/dL High 0-99 [facility] Comment on above: Result Comment: The equation being used in this calculation is LDL = (Chol - HDL) - (Trig / 5) The optimal value of LDL for individual patients may vary. The patient's history of Artherosclerosis and other cardiac risk factors should be considered. Performed By: #### L CM #### [address] [address] Cardiac Risk 4.4 Normal [facility] Comment on above: Result Comment: Men Women 1/2 Average 3.43 3.27 Average 4.97 4.44 2x Average 9.55 7.05 3x Average 23.99 11.04 Performed By: #### L CM #### [address] [address] Cholesterol [Mass/Vol] 198 mg/dL Normal 25-199 [facility] Comment on above: Result Comment: 0 - 17 years of age: Desirable 0-170 Borderline High 170-199 High >=200 18 years and older: Acceptable <200 Borderline High 200-239 High >=240 Performed By: #### L CM #### [address] [address] Cholesterol in HDL [Mass/Vol] 45.2 mg/dL Normal 40.0-60.0 [facility] Comment on above: Performed By: #### L CM #### [address] [address] Cholesterol in VLDL [Mass/Vol] 13 mg/dL Normal 8-39 [facility] Comment on above: Performed By: #### L CM #### [address] [place] [address] Triglyceride [Mass/Vol] 64 mg/dL Normal [facility] Comment on above: Result Comment: 0 - 17 years of age: Trig 90 - 129 Borderline High Trig => 130 High 18 years and older: Trig 150 - 199 Borderline High Trig 200 - 499 High Trig =>500 Very High Performed By: #### L TOI #### [facility] [address] [place] [address] Family Medicine Office/Clini c Noteon 04-20-2023 Family Medicine Office/Clinic Note Chief Complaint Wellness History of Present Illness Patient is a 27-year-old female who presents the office today for a work physical for [employer]. 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 Care team: Gynecology: AUSTIN Simmons. Dermatology: [place]- was taking isotretinoin- recently discontinued. Psychiatry: Counseling. [...] weakness, visual symptoms. She works at the [employer], not using computer often besides being on [...] Historical Pr (more content not included)... 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 Last pap negative 02/18/2022. No gardasil [...] Lifetime: 5 Comments 02/24/23 11:26:00 Annual exam. [id number] two year old daughter. In monogamous relationship, declines STI screening. GC/CT negative 04/2022. States no concerns today. Still considering Paragard IUD, has code sheet and pamphlet from prev. discussion. Denies any family hx of breast, ovarian or uterine cancer. Working part-time at the [employer]. Walks for exercise. Review of [...] [] I (more content not included)... Normal [facility] Quick Strepon 10-02-2022 S. pyogenes Org specific cx Ql (Throat) Negative [employer] Other Quick Strep [employer] Other COVID19(IDNOW)on 11-30-2019 COVID19(IDNOW) NOT DETECTED Normal NOT DETECTED [facility] Comment on above: Result Comment: Nega tive results do not preclude SARS-CoV-2 infection and should not be used as the sole basis for treatiment or other patient management. ENHANCED CONTACT, AND DROPLET ISOLATION IS REQUIRED FOR INPATIENTS WITH SARS-CoV-2. Performed By: #### C OVID19(IDNOW) #### [facility] [address] [place] [address] Age at specimen collection = Normal [facility] Comment on above: Performed By: #### C OVID19(IDNOW) #### [facility] [address] [place] [address] Hematologyon 05-11-2019 Basophils (Bld) [#/Vol] 0.0 10*3/uL 0.0-0.1 [employer] Basophils/100 WBC (Bld) 0.40 % 0.0-1.0 [employer] Eosinophils (Bld) [#/Vol] 0.10 10*3/uL 0.0-0.5 [employer] Eosinophils/100 WBC (Bld) 1.30 % 0.0-7.0 [employer] Hematocrit (Bld) [Volume fraction] 41.30 % 35.7-47.1 [employer] Hemoglobin (Bld) [Mass/Vol] 14.10 g/dL 11.9-15.7 [employer] Lymphocytes (Bld) [#/Vol] 2.20 10*3/uL 0.9-3.1 [employer] Lymphocytes/100 WBC (Bld) 29.30 % 15.0-46.0 [employer] MCH (RBC) [Entitic mass] 29.90 pg 23.2-33.3 [employer] MCV (RBC) [Entitic vol] 87.50 fL 83.4-101.4 [employer] Monocytes (Bld) [#/Vol] 0.60 10*3/uL 0.3-1.0 [employer] Monocytes/100 WBC (Bld) 8.60 % 4.0-12.0 [employer] Neutrophils (Bld) [#/Vol] 4.50 10*3/uL 1.8-7.9 [facility] [employer] Neutrophils/100 WBC (Bld) 60.0 % 43.0-76.0 [facility] [employer] Platelets (Bld) [#/Vol] 160.0 10*3/uL 150-400 [facility] [employer] RBC (Bld) [#/Vol] 4.720 10*6/uL 3.72-5.24 [facility] [employer] WBC (Bld) [#/Vol] 7.40 10*3/uL 3.9-10.3 [facility] [employer] Otheron 05-11-2019 Erythrocyte distribution width (RBC) [Ratio] 12.10 % 11.5-15.5 [employer] Immature granulocytes (Bld) [#/Vol] 0.030 10*3/uL 0.00-0.06 [employer] Immature granulocytes/100 WBC (Bld) 0.40 % 0.0-0.5 [employer] MCHC (RBC) [Mass/Vol] 34.10 g/dL 32.0-36.0 [facility] [employer] Platelet mean volume (Bld) [Entitic vol] 11.10 fL 8.3-11.5 [employer] COMMENT [employer] <9.0 0.0-8.9 [employer] 303.0 0.0-17.9 [employer] <36.0 0.0-35.9 [employer] 38.9 0.0-17.9 [employer] Thyroidon 05-11-2019 TSH Qn 1.96 m[IU]/L 0.50-4.00 [facility] [employer] Basic Metabolic Profon 04-20 (cont.) Normal [facility] Comment on above: Result Comment: Aver age GFR for 20-29 years old: 116 mL/min/1.73sq mChronic Kidney Disease: <60 mL/min/1.73sq mKidney failure: <15 mL/min/1.73sq meGFR calculated using average adult body mass. Additional eGFR calculator available at:http://www.[employer]et[employer]/multiple_crcl_2011.htm Performed By: #### B MP, CBC ####[address] [place] [address] Anion gap 3 molar conc 11 mmol/L Normal 9-17 [facility] Comment on above: Performed By: #### B MP, CBC ####[address] [place] [address] BUN/CRE Ratio 18 Normal 9-20 [facility] Comment on above: Performed By: #### B MP, CBC ####[address] [place] [address] Calcium mass conc 9.2 mg/dL Normal 8.6-10.4 [facility] Comment on above: Performed By: #### B MP, CBC ####[address] [place] [address] Chloride molar conc 102 mmol/L Normal 98-107 [facility] Comment on above: Performed By: #### B MP, CBC ####[address] [place] [address] CO2 molar conc 26 mmol/L Normal 20-31 [facility] Comment on above: Performed By: #### B MP, CBC ####[address] [place] [address] Creatinine mass conc 0.65 mg/dL Normal 0.50-0.[address] [facility] Comment on above: Performed By: #### B MP, CBC ####[address] [place] [address] GFR, Amer >60 Normal >[address] [facility] Comment on above: Performed By: #### B MP, CBC ####[address] [place] [address] GFR,non Amer >60 Normal >[address] [facility] Comment on above: Performed By: #### B MP, CBC ####[address] [place] [address] Glucose mass conc 89 mg/dL Normal 70-99 [facility] Comment on above: Performed By: #### B MP, CBC ####[address] [place] [address] Potassium molar conc 3.8 mmol/L Normal 3.7-5.[address] [facility] Comment on above: Performed By: #### B MP, CBC ####[address] [place] [address] Sodium molar conc 139 mmol/L Normal 135-144 [facility] Comment on above: Performed By: #### B MP, CBC ####[address] [place] [address] Staging: Normal [facility] Comment on above: Result Comment: Stag e 1: Some kidney damage normal GFRStage 2: Mild kidney damage GFR 60-89Stage 3: Moderate kidney damage GFR 30-59Stage 4: Severe kidney damage GFR 15-29Stage 5: Severe kidney damage GFR <15ESRD - chronic treatment by dialysis or transplant Performed By: #### B MP, CBC ####[address] [place] [address] Urea nitrogen mass conc 12 mg/dL Normal 6-20 [facility] Comment on above: Performed By: #### B MP, CBC ####[address] [place] [address] CBCon 04-20-2018 Erythrocyte distribution width Auto Ratio (RBC) 12.1 % Normal 11.8-14.4 [facility] Comment on above: Performed By: #### B MP, CBC ####[address] [place] [address] Hematocrit Auto Volume Fraction (Bld) 42.6 % Normal 36.3-47.1 [facility] Comment on above: Performed By: #### B MP, CBC ####[address] [place] [address] Hemoglobin mass conc (Bld) 14.7 g/dL Normal 11.9-15.1 [facility] Comment on above: Performed By: #### B MP, CBC ####[address] [place] [address] MCH Auto Entitic mass (RBC) 30.2 pg Normal 25.2-33.5 [facility] Comment on above: Performed By: #### B MP, CBC ####[address] [place] [address] MCHC Auto mass conc (RBC) 34.5 g/dL Normal 28.4-34.8 [facility] Comment on above: Performed By: #### B MP, CBC ####[address] [place] [address] MCV Auto Entitic volume (RBC) 87.7 fL Normal 82.6-102.9 [facility] Comment on above: Performed By: #### B MP, CBC ####[address] [place] [address] NRBC Automated 0.0 per 100 WBC Normal 0.0 [facility] Comment on above: Performed By: #### B MP, CBC ####[address] [place] [address] Platelet mean volume Auto Entitic volume (Bld) 10.8 fL Normal 8.1-13.5 [facility] Comment on above: Performed By: #### B MP, CBC ####[address] [place] [address] Platelets Auto #/vol (Bld) 142 10*3/uL Normal 138-453 [facility] Comment on above: Performed By: #### B MP, CBC ####[address] [place] [address] RBC Auto #/vol (Bld) 4.86 10*6/uL Normal 3.95-5.11 [facility] Comment on above: Performed By: #### B MP, CBC ####[address] [place] [address] WBC Auto #/vol (Bld) 6.2 10*3/uL Normal 4.5-13.5 [facility] Comment on above: Performed By: #### B MP, CBC ####[address] [place] [address] HCG, ,Urineon 04-20 HCG.beta subunit ( test) Ql (U) Negative Normal NEG [facility] Comment on above: Result Comment: Spec imens with hCG levels near the threshold of the test (25 mIU/mL) may give a negative or indeterminate result. In such cases, another test should be performed with a new specimen in 48-72 hours. If early is suspected clinically in this setting, correlation with quantitative serum b-hCG level is suggested.[employer] [facility] has confirmed the use of plasma for this test. This has not been cleared or approved by the U.S. Food and Drug Administration. The FDA has determined that such clearance is not necessary. Performed By: #### U HCG ####[address] [place] [address] UA w/Reflex Cultureon 2017 Acetoacetic Acid,Ur Negative Normal NEG [facility] Comment on above: Performed By: #### U AX UMICAO ####[address] [place] [address] Bilirubin, SemiQt,Ur Negative Normal NEG [facility] Comment on above: Performed By: #### U AX UMICAO ####[address] [place] [address] Color YELLOW Normal YEL [facility] Comment on above: Performed By: #### U PALOMO UMICAO ####[address] [place] [address] Glucose,Semi-qnt,Ur Negative Normal [facility] Comment on above: Performed By: #### Tonja CULVER UMICAO ####[address] [place] [address] Hemoglobin, Ur Negative Normal NEG [facility] Comment on above: Performed By: #### Tonja CULVER UMICAO ####[address] [place] [address] Leuckocyte Esterase Negative Normal [facility] Comment on above: Performed By: #### U PALOMO UMICAO ####[address] [place] [address] Nitrite,Ur Negative Normal [facility] Comment on above: Performed By: #### U AX UMICAO ####[address] [place] [address] PH,Ur 6.0 Normal 5.0-9.0 [facility] Comment on above: Performed By: #### U AX UMICAO ####[address] [place] [address] Protein, Semi-qnt,Ur Negative Normal NEG [facility] Comment on above: Performed By: #### U AX, UMICAO ####[address] [place] [address] Spec. [place],Ur 1.025 High 1.010-1.020 [facility] Comment on above: Performed By: #### U AX, UMICAO ####[address] [place] [address] Turbidity CLEAR Normal CLEAR [facility] Comment on above: Performed By: #### U AX, UMICAO ####[address] [place] [address] Urobilinogen,Ur Normal Normal NORM [facility] Comment on above: Performed By: #### U AX, UMICAO ####[address] [place] [address] Comment NOT REPORTED Normal [facility] Comment on above: Performed By: #### U AX, UMICAO ####[address] [place] [address] Urinalysis,Microon 8 ----- Normal [facility] Comment on above: Performed By: #### U AX, UMICAO ####[address] [place] [address] Bacteria 1+ Abnormal NONE [facility] Comment on above: Performed By: #### U AX, UMICAO ####[address] [place] [address] Epithelial cells 2 TO 5 Normal 0-[address] [facility] Comment on above: Performed By: #### U AX, UMICAO ####[address] [place] [address] RBC Test strip #/vol (U) None Normal 0-2 [facility] Comment on above: Performed By: #### U AX, UMICAO ####[address] [place] [address] Urine WBC's 0 TO 2 Normal 0-5 [facility] Comment on above: Performed By: #### U AX, UMICAO ####[address] [place] [address] Amorphous Sediment NOT REPORTED Normal NONE [facility] Comment on above: Performed By: #### U AX, UMICAO ####[address] [place] [address] Casts NOT REPORTED Normal [facility] Comment on above: Performed By: #### U AX, UMICAO ####[address] [place] [address] Crystals NOT REPORTED Normal NONE [facility] Comment on above: Performed By: #### U AX, UMICAO ####[address] [place] [address] Epithelial, Renal NOT REPORTED Normal 0 [facility] Comment on above: Performed By: #### U AX, UMICAO ####[address] [place] [address] Mucus Strands NOT REPORTED Normal NONE [facility] Comment on above: Performed By: #### U AX, UMICAO ####[address] [place] [address] Other Observations NOT REPORTED Normal NREQ [facility] Comment on above: Performed By: #### U AX, UMICAO ####[address] [place] [address] Trichomonas NOT REPORTED Normal NONE [facility] Comment on above: Performed By: #### U AX, UMICAO ####[address] [place] [address] Yeast NOT REPORTED Normal NONE [facility] Comment on above: Performed By: #### U AX, UMICAO ####[facility] [place] [address] XR LUMBAR SPINE (2-3 VIEWS)o n [...] by:RIVER Jassoigned by:Phil Messer MD04/20/18inal result Normal [facility] Otheron 03-08-2018 Negative [employer] Otheron 02-03-2018 Negative [employer] Otheron 01-30-2018 Negative [employer] Cardiacon 12-28-2017 Cholesterol [Mass/Vol] 156.0 mg/dL 0-200 [employer] Cholesterol in HDL [Mass/Vol] 54.0 mg/dL 50-100 [employer] Cholesterol in LDL [Mass/Vol] 79.0 mg/dL 0-130 [employer] Triglyceride [Mass/Vol] 116.0 mg/dL 30-150 [employer] Metabolic Panelon 12-28-2017 Albumin [Mass/Vol] 4.70 g/dL 3.7-4.5 [employer] ALP [Catalytic activity/Vol] 83.0 U/L 31-155 [employer] ALT [Catalytic activity/Vol] 15.0 U/L 0-50 [employer] AST [Catalytic activity/Vol] 19.0 U/L 0-40 [employer] Bilirubin [Mass/Vol] 0.70 mg/dL 0.0-1.0 [facility] [employer] Protein [Mass/Vol] 7.80 g/dL 6.3-7.9 [facility] [employer] Otheron 12-28-2017 Albumin/Globulin [Mass ratio] 1.5 {ratio} 1.0-2.4 [employer] Cholesterol in VLDL [Mass/Vol] 23.0 mg/dL 0-39 [employer] Cholesterol.total/Cho lesterol in HDL [Mass ratio] 3 {ratio} [employer] Negative [employer] CBCon 07-28-2017 Erythrocyte distribution width Auto Ratio (RBC) 11.8 % Normal 11.8-14.4 [facility] Comment on above: Performed By: #### C SEN, CP ####[address] [place] [phone]) Hematocrit Auto Volume Fraction (Bld) 41.2 % Normal 36.3-47.1 [facility] Comment on above: Performed By: #### C SEN, CP ####[facility] [place] [address] Hemoglobin mass conc (Bld) 14.1 g/dL Normal 11.9-15.1 [facility] Comment on above: Performed By: #### C SEN, CP ####[address] [place] [address] MCH Auto Entitic mass (RBC) 28.5 pg Normal 25.2-33.5 [facility] Comment on above: Performed By: #### C BC, CP ####[address] [place] [address] MCHC Auto mass conc (RBC) 34.2 g/dL Normal 28.4-34.8 [facility] Comment on above: Performed By: #### C BC, CP ####[address] [place] [address] MCV Auto Entitic volume (RBC) 83.2 fL Normal 82.6-102.9 [facility] Comment on above: Performed By: #### C BC, CP ####[address] [place] [address] NRBC Automated 0.0 per 100 WBC Normal 0.0 [facility] Comment on above: Result Comment: Perf ormed at [address] [place] [address] Performed By: #### C BC, CP ####[address] [place] [address] Platelet mean volume Auto Entitic volume (Bld) 9.9 fL Normal 8.1-13.5 [facility] Comment on above: Performed By: #### C BC, CP ####[address] [place] [address] Platelets Auto #/vol (Bld) 230 10*3/uL Normal 138-453 [facility] Comment on above: Performed By: #### C BC, CP ####[address] [place] [address] RBC Auto #/vol (Bld) 4.95 10*6/uL Normal 3.95-5.11 [facility] Comment on above: Performed By: #### C BC, CP ####[address] [place] [address] WBC Auto #/vol (Bld) 11.8 10*3/uL Normal 4.5-13.5 [facility] Comment on above: Performed By: #### C SEN, CP ####[address] [place] [address] Comp Metabolic Profon 2017 (cont.) Normal [facility] Comment on above: Result Comment: Aver age GFR for 20-29 years old: 116 mL/min/1.73sq mChronic Kidney Disease: <60 mL/min/1.73sq mKidney failure: <15 mL/min/1.73sq meGFR calculated using average adult body mass. Additional eGFR calculator available at:http://www.VetCompare/multiple_crcl_2011.htm Performed By: #### C SEN, CP ####[address] [place] [address] Albumin mass conc 4.5 g/dL Normal 3.5-5.2 [facility] Comment on above: Performed By: #### C SEN, CP ####[address] [place] [address] Albumin/Globulin mass ratio 1.3 {ratio} Normal 1.0-2.5 [facility] Comment on above: Performed By: #### C SEN, CP ####[address] [place] [address] Alkaline Phos 81 U/L Normal 35-104 [facility] Comment on above: Performed By: #### C SEN, CP ####[address] [place] [address] ALT enzyme act/vol 23 U/L Normal 5-33 [facility] Comment on above: Performed By: #### C BC, CP ####[address] [place] [address] Anion gap 3 molar conc 13 mmol/L Normal 9-17 [facility] Comment on above: Performed By: #### C BC, CP ####[address] [place] [address] AST enzyme act/vol 23 U/L Normal <32 [facility] Comment on above: Performed By: #### C BC, CP ####[address] [place] [address] Bilirubin Ql (U) 0.23 mg/dL Low 0.3-1.[address] [facility] Comment on above: Performed By: #### C BC, CP ####[address] [place] [address] BUN/CRE Ratio 17 Normal 9-20 [facility] Comment on above: Performed By: #### C BC, CP ####[address] [place] [address] Calcium mass conc 9.5 mg/dL Normal 8.6-10.4 [facility] Comment on above: Performed By: #### C BC, CP ####[address] [place] [address] Chloride molar conc 101 mmol/L Normal 98-107 [facility] Comment on above: Performed By: #### C BC, CP ####[address] [place] [address] CO2 molar conc 23 mmol/L Normal 20-31 [facility] Comment on above: Performed By: #### C BC, CP ####[address] [place] [address] Creatinine mass conc 0.69 mg/dL Normal 0.50-0.[address] [facility] Comment on above: Performed By: #### C BC, CP ####[address] [place] [address] GFR, Amer >60 Normal >[address] [facility] Comment on above: Performed By: #### C BC, CP ####[address] [place] [address] GFR,non Amer >60 Normal >[address] [facility] Comment on above: Performed By: #### C BC, CP ####[address] [place] [address] Glucose mass conc 99 mg/dL Normal 70-99 [facility] Comment on above: Performed By: #### C BC, CP ####[address] [place] [address] Potassium molar conc 3.8 mmol/L Normal 3.7-5.[address] [facility] Comment on above: Performed By: #### C BC, CP ####[address] [place] [address] Protein mass conc 8.0 g/dL Normal 6.4-8.3 [facility] Comment on above: Performed By: #### C BC, CP ####[address] [place] [address] Sodium molar conc 137 mmol/L Normal 135-144 [facility] Comment on above: Performed By: #### C BC, CP ####[address] [place] [address] Staging: Normal [facility] Comment on above: Result Comment: Stag e 1: Some kidney damage normal GFRStage 2: Mild kidney damage GFR 60-89Stage 3: Moderate kidney damage GFR 30-59Stage 4: Severe kidney damage GFR 15-29Stage 5: Severe kidney damage GFR <15ESRD - chronic treatment by dialysis or transplantPerformed at [address] [place] [address] Performed By: #### C BC, CP ####[address] [place] [address] Urea nitrogen mass conc 12 mg/dL Normal 6-20 [facility] Comment on above: Performed By: #### C BC, CP ####[address] [place] [address] HCG, ,Urineon 07-28 HCG.beta subunit ( test) Ql (U) Negative Normal NEG [facility] Comment on above: Result Comment: Spec imens with hCG levels near the threshold of the test (25 mIU/mL) may give a negative or indeterminate result. In such cases, another test should be performed with a new specimen in 48-72 hours. If early is suspected clinically in this setting, correlation with quantitative serum b-hCG level is suggested.[facility] has confirmed the use of plasma for this test. This has not been cleared or approved by the U.S. Food and Drug Administration. The FDA has determined that such clearance is not necessary.Performed at [address] [place] [address] Performed By: #### U HCG, UA ####[address] [place] [address] Urinalysis, Routineon 2017 Acetoacetic Acid,Ur Negative Normal NEG [facility] Comment on above: Performed By: #### U HCG, UA ####[address] [place] [address] Bilirubin, SemiQt,Ur Negative Normal NEG [facility] Comment on above: Performed By: #### U HCG, UA ####[address] [place] [address] Color YELLOW Normal YEL [facility] Comment on above: Performed By: #### U HCG, UA ####[address] [place] [address] Glucose,Semi-qnt,Ur Negative Normal NEG [facility] Comment on above: Performed By: #### U HCG, UA ####[address] [place] [address] Hemoglobin, Ur Negative Normal NEG [facility] Comment on above: Performed By: #### U HCG, UA ####[address] [place] [address] Leuckocyte Esterase Negative Normal NEG [facility] Comment on above: Result Comment: Perf ormed at [address] [place] [address] Performed By: #### U HCG, UA ####[address] [place] [address] Nitrite,Ur Negative Normal NEG [facility] Comment on above: Performed By: #### U HCG, UA ####[address] [place] [address] PH,Ur 6.0 Normal 5.0-9.0 [facility] Comment on above: Performed By: #### U HCG, UA ####[address] [place] [address] Protein mass conc Negative Normal NEG [facility] Comment on above: Performed By: #### U HCG, UA ####[address] [place] [address] Spec. [place],Ur 1.025 High 1.010-1.020 [facility] Comment on above: Performed By: #### U HCG, UA ####[address] [place] [address] Turbidity CLEAR Normal CLEAR [facility] Comment on above: Performed By: #### U HCG, UA ####[address] [place] [address] Urobilinogen,Ur Normal Normal NORM [facility] Comment on above: Performed By: #### U HCG, UA ####[address] [place] [address] Comment NOT REPORTED Normal [facility] Comment on above: Performed By: #### U HCG, UA ####[address] [place] [address] Cardiacon 06-07-2016 Cholesterol mass conc 175.0 mg/dL 0-200 [facility] [employer] Triglyceride mass conc 58.0 mg/dL 30-150 [employer] Hematologyon 06-07-2016 Basophils #/vol (Bld) 0.0 10*3/uL 0.0-0.1 [facility] Basophils/100 WBC (Bld) 0.30 % 0.0-1.0 [employer] Eosinophils #/vol (Bld) 0.10 10*3/uL 0.0-0.5 [employer] Eosinophils/100 WBC (Bld) 1.80 % 0.0-7.0 [employer] Hematocrit Volume Fraction (Bld) 40.50 % 35.7-47.1 [employer] Hemoglobin mass conc (Bld) 13.60 g/dL 11.9-15.7 [employer] Lymphocytes #/vol (Bld) 3.40 10*3/uL 0.9-3.1 [employer] Lymphocytes/100 WBC (Bld) 41.0 % 28.0-42.0 [employer] MCH Entitic mass (RBC) 29.60 pg 23.2-33.3 [employer] MCV Entitic volume (RBC) 88.40 fL 82.0-98.4 [employer] Monocytes #/vol (Bld) 0.60 10*3/uL 0.3-1.0 [employer] Monocytes/100 WBC (Bld) 7.40 % 4.0-12.0 [facility] [employer] Neutrophils #/vol (Bld) 4.20 10*3/uL 1.8-7.9 [facility] [employer] Neutrophils/100 WBC (Bld) 49.50 % 45.6-68.4 [facility] [employer] Platelets #/vol (Bld) 225.0 10*3/uL 150-400 [facility] [employer] [facility] RBC #/vol (Bld) 4.580 10*6/uL 3.72-5.24 [facility] [employer] [facility] WBC #/vol (Bld) 8.30 10*3/uL 3.9-10.3 [facility] [employer] Metabolic Panelon 06-07-2016 Albumin mass conc 4.40 g/dL 3.7-4.5 [facility] [employer] ALP enzyme act/vol 77.0 U/L 31-155 [facility] ALT enzyme act/vol 17.0 U/L 0-50 [facility] [employer] [facility] AST enzyme act/vol 21.0 U/L 0-40 [facility] [employer] [facility] Bilirubin mass conc 0.40 mg/dL 0.0-1.0 [facility] [employer] Protein mass conc 7.40 g/dL 6.3-7.9 [facility] [employer] Otheron 06-07-2016 Albumin/Globulin mass ratio 1.5 {ratio} 1.0-2.4 [facility] [employer] [facility] Erythrocyte distribution width Ratio (RBC) 11.80 % 11.5-15.5 [facility] [employer] MCHC mass conc (RBC) 33.50 g/dL 32.0-36.0 [facility] [place] [employer] Platelet mean volume Entitic volume (Bld) 9.0 fL 7.4-10.4 [facility] [employer] Negative [facility] [employer] Otheron 04-23-2016 Negative [employer] Otheron 03-19-2016 Negative [employer] Cardiacon 02-12-2016 Cholesterol mass conc 175.0 mg/dL 0-200 Bl [facility] [employer] [employer] Triglyceride mass conc 59.0 mg/dL 30-150 [facility] [employer] Hematologyon 02-12-2016 Basophils #/vol (Bld) 0.10 10*3/uL 0.0-0.[address] [facility] [employer] Basophils/100 WBC (Bld) 0.90 % 0.0-1.0 [employer] Eosinophils #/vol (Bld) 0.10 10*3/uL 0.0-0.5 [facility] [employer] [facility] Eosinophils/100 WBC (Bld) 1.70 % 0.0-7.0 [facility] [employer] Hematocrit Volume Fraction (Bld) 41.60 % 35.7-47.1 [employer] [employer] Hemoglobin mass conc (Bld) 14.0 g/dL 11.9-15.7 [facility] [employer] Lymphocytes #/vol (Bld) 2.30 10*3/uL 0.9-3.1 [facility] [employer] Lymphocytes/100 WBC (Bld) 36.10 % 28.0-42.0 [facility] MCH Entitic mass (RBC) 29.40 pg 23.2-33.3 [facility] MCV Entitic volume (RBC) 87.60 fL 82.0-98.4 [facility] Monocytes #/vol (Bld) 0.50 10*3/uL 0.3-1.[address] [facility] [employer] [facility] Monocytes/100 WBC (Bld) 7.20 % 4.0-12.0 [facility] Neutrophils #/vol (Bld) 3.30 10*3/uL 1.8-7.9 [facility] [employer] [facility] Neutrophils/100 WBC (Bld) 54.10 % 45.6-68.4 [facility] [employer] Platelets #/vol (Bld) 180.0 10*3/uL 150-400 [facility] RBC #/vol (Bld) 4.750 10*6/uL 3.72-5.24 [facility] [employer] [facility] WBC #/vol (Bld) 6.30 10*3/uL 3.9-10.3 [facility] Metabolic Panelon 02-12-2016 Albumin mass conc 4.50 g/dL 3.7-4.5 [facility] ALP enzyme act/vol 79.0 U/L 31-155 [facility] ALT enzyme act/vol 21.0 U/L 0-50 [facility] AST enzyme act/vol 22.0 U/L 0-40 [facility] [employer] Bilirubin mass conc 0.40 mg/dL 0.0-1.0 [facility] [employer] Protein mass conc 7.0 g/dL 6.3-7.9 [facility] [employer] Otheron 02-12-2016 Albumin/Globulin mass ratio 1.8 {ratio} 1.0-2.4 [employer] [employer] Erythrocyte distribution width Ratio (RBC) 12.10 % 11.5-15.5 [employer] [employer] MCHC mass conc (RBC) 33.60 g/dL 32.0-36.0 [facility] [employer] Platelet mean volume Entitic volume (Bld) 9.70 fL 7.4-10.4 [employer] [employer] Negative [employer] [employer] Vital Signs Date Time Vital Sign Value Performing Clinician Facility 02-08-2024 13:21-0400 Body height 154.9 cm [employer] Work Phone: [facility] 02-08-2024 13:21-0400 Body mass index (BMI) [Ratio] 23.05 kg/m2 Eleazar Vijaya [employer] Work Phone: [facility] 02-08-2024 13:21-0400 Body weight 55.34 kg Eleazar Vijaya DO Work Phone: [facility] 02-08-2024 13:21-0400 Diastolic blood pressure 64 mm[Hg] Eleazar Vijaya DO Work Phone: [facility] 02-08-2024 13:21-0400 Systolic blood pressure 102 mm[Hg] Eleazar Vijaya DO Work Phone: [facility] 02-02-2024 12:39-0400 Body height 154.94 cm [facility] 02-02-2024 12:39-0400 Body mass index (BMI) [Ratio] 22.4 kg/m2 [facility] 02-02-2024 12:39-0400 Body temperature 98.3 [degF] [facility] 02-02-2024 12:39-0400 Body weight 54 kg [facility] 02-02-2024 12:39-0400 Diastolic blood pressure 64 mm[Hg] [facility] 02-02-2024 12:39-0400 Heart rate 82 /min [facility] 02-02-2024 12:39-0400 Respiratory rate 16 /min [facility] 02-02-2024 12:39-0400 SaO2% (BldA) [Mass fraction] 98 % [facility] 02-02-2024 12:39-0400 Systolic blood pressure 108 mm[Hg] [facility] 01-24-2024 11:38-0400 Body height 154.94 cm [facility] 01-24-2024 11:38-0400 Body mass index (BMI) [Ratio] 22.6 kg/m2 [facility] 01-24-2024 11:38-0400 Body temperature 96.1 [degF] [facility] 01-24-2024 11:38-0400 Body weight 54.43 kg [facility] 01-24-2024 11:38-0400 Diastolic blood pressure 60 mm[Hg] [facility] 01-24-2024 11:38-0400 Heart rate 75 /min [facility] 01-24-2024 11:38-0400 SaO2% (BldA) [Mass fraction] 98 % [facility] 01-24-2024 11:38-0400 Systolic blood pressure 114 mm[Hg] [facility] 01-03-2024 11:26-0400 Body height 154.94 cm [facility] 01-03-2024 11:26-0400 Body mass index (BMI) [Ratio] 23.2 kg/m2 [facility] 01-03-2024 11:26-0400 Body temperature 97.8 [degF] [facility] 01-03-2024 11:26-0400 Body weight 55.79 kg [facility] 01-03-2024 11:26-0400 Diastolic blood pressure 68 mm[Hg] [facility] 01-03-2024 11:26-0400 Heart rate 90 /min [facility] 01-03-2024 11:26-0400 SaO2% (BldA) [Mass fraction] 98 % [facility] 01-03-2024 11:26-0400 Systolic blood pressure 110 mm[Hg] [facility] 07-21-2023 10:20-0400 Body height 154.94 cm [facility] 07-21-2023 10:20-0400 Body mass index (BMI) [Ratio] 27.8 kg/m2 [facility] 07-21-2023 10:20-0400 Body weight 66.67 kg [facility] 07-21-2023 10:20-0400 Diastolic blood pressure 78 mm[Hg] [facility] 07-21-2023 10:20-0400 Heart rate 61 /min [facility] 07-21-2023 10:20-0400 SaO2% (BldA) [Mass fraction] 99 % [facility] 07-21-2023 10:20-0400 Systolic blood pressure 112 mm[Hg] [facility] 03-26-2023 11:30-0500 Body height 154.94 cm Jodie Portillo Other [employer] [facility] [employer] Other 03-26-2023 11:30-0500 Body mass index (BMI) [Ratio] 27.96 kg/m2 Jodie Portillo Other [employer] Other 03-26-2023 11:30-0500 Body temperature 98.8 [degF] Jodie Portillo Other [employer] Other 03-26-2023 11:30-0500 Body weight 67.13 kg Jodie Portillo Other [employer] Other 03-26-2023 11:30-0500 Diastolic blood pressure 76 mm[Hg] Jodie Bandar Other [employer] Other 03-26-2023 11:30-0500 Respiratory rate 18 /min Jodie Bandar Other [employer] Other 03-26-2023 11:30-0500 SaO2% (BldA) [Mass fraction] 98 % Jodie Bandar Other [employer] Other 03-26-2023 11:30-0500 Systolic blood pressure 118 mm[Hg] Jodie Bandar Other [employer] Other 10-02-2022 12:25-0400 Body height 154.94 cm Deidra Castlemond Other [employer] Other 10-02-2022 12:25-0400 Body mass index (BMI) [Ratio] 27.43 kg/m2 Deidra Castlemond Other [employer] Other 10-02-2022 12:25-0400 Body temperature 97.7 [degF] Deidra Barbara Other [employer] Other 10-02-2022 12:25-0400 Body weight 65.86 kg Deidra Barbara Other [employer] Other 10-02-2022 12:25-0400 Respiratory rate 18 /min Deidra Castlemond Other [employer] Other 10-02-2022 12:25-0400 SaO2% (BldA) [Mass fraction] 97 % Deidra Barbara Other [facility] [employer] Other 05-21-2019 10:42-0500 BMI (Body Mass Index) 23.41 kg/m2 Lyricchon Pérez [employer] 05-21-2019 10:42-0500 Body Temperature 98.8 [degF] Lyricchon [employer] 05-21-2019 10:42-0500 Body weight 58.06 kg Ylricchon Pérez [employer] 05-21-2019 10:42-0500 BP Diastolic 68 mm[Hg] Lyricchon Pérez [employer] 05-21-2019 10:42-0500 BP Systolic 94 mm[Hg] Lyric Pérez [employer] 05-21-2019 10:42-0500 BSA (Body Surface Area) 1.59 m2 Lyricchon Pérez [employer] [facility] 05-21-2019 10:42-0500 Height 157.48 cm Lyric Pérez [employer] 05-21-2019 10:42-0500 Pulse (Heart Rate) 90 /min Lyricchon Villarreal eusebio Wasatch [employer] 05-11-2019 14:48-0500 BMI (Body Mass Index) 22.95 kg/m2 Hima Rene [employer] [facility] 05-11-2019 14:48-0500 Body Temperature 98.8 [degF] Hima Rene Cherellejolene Wasatch [employer] 05-11-2019 14:48-0500 Body weight 56.93 kg Hima Clemente [employer] [facility] 05-11-2019 14:48-0500 BP Diastolic 66 mm[Hg] Hima Rene Clemente [employer] [facility] 05-11-2019 14:48-0500 BP Systolic 110 mm[Hg] Hima Rene [employer] 05-11-2019 14:48-0500 BSA (Body Surface Area) 1.58 m2 Hima Rene [employer] 05-11-2019 14:48-0500 Height 157.48 cm Hima Rene Clemente [employer] 05-11-2019 14:48-0500 Pulse (Heart Rate) 72 /min Hima Cardoza [facility] [employer] 04-27-2019 15:18-0500 BMI (Body Mass Index) 23.52 kg/m2 Lyric [email or web address] 04-27-2019 15:18-0500 Body Temperature 98.9 [degF] Lyric [employer] 04-27-2019 15:18-0500 Body weight 56.47 kg Lyric [email or web address] 04-27-2019 15:18-0500 BP Diastolic 60 mm[Hg] Lyric [email or web address] 04-27-2019 15:18-0500 BP Systolic 112 mm[Hg] Lyric Pérez [employer] 04-27-2019 15:18-0500 BSA (Body Surface Area) 1.56 m2 Lyric Pérez [employer] 04-27-2019 15:18-0500 Height 154.94 cm Lyric [email or web address] 04-27-2019 15:18-0500 Pulse (Heart Rate) 80 /min Lyric Kimhard Cherelle eusebio [employer] 04-09-2019 13:38-0500 BMI (Body Mass Index) 22.77 kg/m2 Lyric Pérez [employer] 04-09-2019 13:38-0500 Body Temperature 99.4 [degF] Lyric Clemente [employer] 04-09-2019 13:38-0500 Body weight 54.66 kg Lryic Pérez [employer] 04-09-2019 13:38-0500 BP Diastolic 70 mm[Hg] Lyric Pérez [employer] 04-09-2019 13:38-0500 BP Systolic 120 mm[Hg] Lyric Pérez [employer] 04-09-2019 13:38-0500 BSA (Body Surface Area) 1.53 m2 Lyric Pérez [employer] 04-09-2019 13:38-0500 Height 154.94 cm Lyric Pérez [employer] 04-09-2019 13:38-0500 Pulse (Heart Rate) 82 /min Lyric Kimhard Cherelle [employer] 02-06-2019 16:41-0400 BMI (Body Mass Index) 22.77 kg/m2 Lyric Pérez [employer] 02-06-2019 16:41-0400 Body Temperature 98.8 [degF] Lyric Rene Clemente [employer] 02-06-2019 16:41-0400 Body weight 54.66 kg Lyric Pérez [employer] 02-06-2019 16:41-0400 BP Diastolic 70 mm[Hg] Lyric Pérez [employer] 02-06-2019 16:41-0400 BP Systolic 112 mm[Hg] Lyric Pérez [employer] 10-01-2019 16:41-0400 BSA (Body Surface Area) 1.53 m2 Lyric [employer] 02-06-2019 16:41-0400 Height 154.94 cm Lyric Rene [employer] 02-06-2019 16:41-0400 Pulse (Heart Rate) 72 /min Lyric rousey [employer] 10-31-2018 16:58-0400 BMI (Body Mass Index) 23.43 kg/m2 Hima Rene [employer] 10-31-2018 16:58-0400 Body weight 56.25 kg Hima Faustinncjose elias Clemente [employer] 10-31-2018 16:58-0400 BP Diastolic 60 mm[Hg] Hima Faustinncjose elias Clemente [employer] 10-31-2018 16:58-0400 BP Systolic 112 mm[Hg] Hima Clemente [employer] 10-31-2018 16:58-0400 BSA (Body Surface Area) 1.56 m2 Hima Rene [employer] 10-31-2018 16:58-0400 Height 154.94 cm Hima Clemente [employer] 10-31-2018 16:58-0400 Pulse (Heart Rate) 72 /min Hima Rene Nani cammy [employer] 10-31-2018 16:58-0400 Weight 56.25 kg Hima Faustinncjose elias Clemente [employer] 08-28-2018 15:49-0400 BMI (Body Mass Index) 22.67 kg/m2 Hima Rene [employer] 08-28-2018 15:49-0400 Body Temperature 98.7 [degF] Hima Faustinncjose elias Andrade [employer] 08-28-2018 15:49-0400 Body weight 54.43 kg Hima Clemente [employer] 08-28-2018 15:49-0400 BP Diastolic 60 mm[Hg] Hima Camacho [employer] 08-28-2018 15:49-0400 BP Systolic 120 mm[Hg] Hima Clemente [employer] 08-28-2018 15:49-0400 BSA (Body Surface Area) 1.53 m2 Hima Rene [employer] 08-28-2018 15:49-0400 Height 154.94 cm Hima Clemente [employer] 08-28-2018 15:49-0400 Pulse (Heart Rate) 66 /min Hima ma [employer] 08-28-2018 15:49-0400 Weight 54.43 kg Hima Clemente [employer] 02-09-2018 12:10-0400 BMI (Body Mass Index) 23.78 kg/m2 Hima Rene [employer] 02-09-2018 12:10-0400 Body Temperature 98.1 [degF] Hima Andrade [employer] 02-09-2018 12:10-0400 Body weight 58.97 kg Hima Clemente [employer] 02-09-2018 12:10-0400 BP Diastolic 80 mm[Hg] Hima Clemente [employer] 02-09-2018 12:10-0400 BP Systolic 104 mm[Hg] Hima Clemente [employer] 02-09-2018 12:10-0400 BSA (Body Surface Area) 1.61 m2 Hima Rene [employer] 02-09-2018 12:10040 Height 157.48 cm Hima Clemente [employer] 02-09-2018 12:100400 Pulse (Heart Rate) 64 /min Hima Cardoza [employer] 02-09-2018 12:100400 Weight 58.97 kg Hima Clemente [employer] 01-11-2018 15:19-0400 BMI (Body Mass Index) 23.32 kg/m2 Hima Rene [employer] 01-11-2018 15:19-0400 Body weight 57.83 kg Hima Clemente [employer] 01-11-2018 15:19-0400 BP Diastolic 68 mm[Hg] Hima Clemente [employer] 01-11-2018 15:19-0400 BP Systolic 106 mm[Hg] Hima Clemente [employer] 01-11-2018 15:19-0400 BSA (Body Surface Area) 1.59 m2 Hima Rene [employer] 01-11-2018 15:190400 Height 157.48 cm Hima Clemente [employer] 01-11-2018 15:19-0400 Pulse (Heart Rate) 76 /min Hima Cardoza [employer] 01-11-2018 15:19-0400 Weight 57.83 kg Hima Clemente [employer] 08-01-2017 09:57-0400 BMI (Body Mass Index) 23.59 kg/m2 [facility] [place] [employer] 08-01-2017 09:57-0400 Body weight 58.51 kg Hima Clemente [employer] 08-01-2017 09:57-0400 BP Diastolic 60 mm[Hg] Hima Camacho [employer] 08-01-2017 09:57-0400 BP Systolic 94 mm[Hg] Hima Clemente [employer] 08-01-2017 09:57-0400 BSA (Body Surface Area) 1.6 m2 Hima Rene [employer] 08-01-2017 09:57-0400 Height 157.48 cm Hima Clemente [employer] 08-01-2017 09:57-0400 Pulse (Heart Rate) 80 /min Hima ma [employer] 08-01-2017 09:57-0400 Weight 58.51 kg Hima Clemente [employer] 01-13-2017 12:02-0400 BMI (Body Mass Index) 22.59 kg/m2 Hima Rene [employer] 01-13-2017 12:02-0400 Body weight 56.02 kg Hima Clemente [employer] 01-13-2017 12:02-0400 BP Diastolic 76 mm[Hg] Hima Clemente [employer] 01-13-2017 12:02-0400 BP Systolic 122 mm[Hg] Hima Clemente [employer] 01-13-2017 12:02-0400 BSA (Body Surface Area) 1.57 m2 Hima Rene [employer] 01-13-2017 12:02-0400 Height 157.48 cm Hima Rene [employer] 01-13-2017 12:02-0400 Pulse (Heart Rate) 72 /min Hima Cardoza [employer] 01-13-2017 12:02-0400 Weight 56.02 kg Hima [employer] 10-29-2016 16:57-0400 BMI (Body Mass Index) 22.13 kg/m2 Hima Rene [employer] 10-29-2016 16:57-0400 Body weight 54.89 kg Hima Rene [employer] 10-29-2016 16:57-0400 BP Diastolic 60 mm[Hg] Hima Rene [employer] 10-29-2016 16:57-0400 BP Systolic 104 mm[Hg] Hima Rene [employer] 10-29-2016 16:57-0400 BSA (Body Surface Area) 1.55 m2 Hima Rene [employer] 10-29-2016 16:57-0400 Height 157.48 cm Hima Rene [employer] 10-29-2016 16:57-0400 Pulse (Heart Rate) 68 /min Hima Cardoza [employer] 10-29-2016 16:57-0400 Weight 54.89 kg Hima Rene [employer] 01-28-2016 17:46-0400 BMI (Body Mass Index) 21.67 kg/m2 Hima [employer] 01-28-2016 17:46-0400 Body weight 53.75 kg Hima Rene [employer] 01-28-2016 17:46-0400 BP Diastolic 64 mm[Hg] Hima Camacho [employer] 01-28-2016 17:46-0400 BP Systolic 94 mm[Hg] Hima Camacho [employer] 01-28-2016 17:46-0400 BSA (Body Surface Area) 1.53 m2 Hima Rene [employer] 01-28-2016 17:46-0400 Height 157.48 cm Hima Clemente [employer] 01-28-2016 17:46-0400 Pulse (Heart Rate) 64 /min Hima ma Wasatch [employer] 01-28-2016 17:46-0400 Weight 53.75 kg Hima Clemente [employer] 05-30-2015 16:50-0500 BMI (Body Mass Index) 21.22 kg/m2 Hima Rene [employer] 05-30-2015 16:50-0500 Body Temperature 98 [degF] Hima chawla [employer] 05-30-2015 16:50-0500 Body weight 52.62 kg Hima Clemente [employer] 05-30-2015 16:50-0500 BP Diastolic 64 mm[Hg] Hima Clemente [employer] 05-30-2015 16:50-0500 BP Systolic 90 mm[Hg] Hima Clemente [employer] 05-30-2015 16:50-0500 BSA (Body Surface Area) 1.52 m2 Hima Rene [employer] 05-30-2015 16:50-0500 Height 157.48 cm Hima Clemente [employer] 05-30-2015 16:50-0500 Pulse (Heart Rate) 92 /min Hima Cardoza [employer] 05-30-2015 16:50-0500 Weight 52.62 kg Hima Clemente [employer] 04-08-2015 16:01-0500 BMI (Body Mass Index) 21.28 kg/m2 Hima Rene [employer] 04-08-2015 16:01-0500 Body Temperature 98.4 [degF] Hima Andrade [employer] 04-08-2015 16:01-0500 Body weight 51.94 kg Hima Clemente [employer] 04-08-2015 16:01-0500 BP Diastolic 84 mm[Hg] Hima Clemente [employer] 04-08-2015 16:01-0500 BP Systolic 118 mm[Hg] Hima Clemente [employer] 04-08-2015 16:01-0500 BSA (Body Surface Area) 1.5 m2 Hima Rene [employer] 04-08-2015 16:01-0500 Height 156.21 cm Hima Clemente [employer] 04-08-2015 16:01-0500 Pulse (Heart Rate) 72 /min Hima Cardoza [employer] 04-08-2015 16:01-0500 Weight 51.94 kg Hima Clemente [employer] Encounters Encounter Date Encounter Type Care Provider [...] Available Start: 02-02-2024 End: 02-02-2024 Departed Referred BIN CLEANER Jodie Portillo Work Phone: [facility] [place] Work Phone: Start: 02-02-2024 End: 02-02-2024 ambulatory Jodie Portillo [facility] Work Phone: Start: 02-02-2024 End: 02-02-2024 Patient encounter procedure [facility] Work Phone: Start: 01-24-2024 End: 01-24-2024 ambulatory [facility] Work Phone: Start: 01-24-2024 End: 01-24-2024 Patient encounter procedure [facility] Work Phone: Start: 01-24-2024 End: 01-24-2024 ambulatory Susana Alonzo PA-C Facility:[facility] Start: 01-19-2024 Non-patient / Non-visit [facility] Physician [facility] Work Phone: Start: 01-03-2024 End: 01-03-2024 ambulatory [facility] Work Phone: Start: 01-03-2024 End: 01-03-2024 Patient encounter procedure [facility] Phys[facility] Work Phone: Start: 08-10-2023 End: 08-10-2023 ambulatory Susana Jayla Schlumbohm PA-C Facility:[facility] Start: 07-21-2023 End: 07-21-2023 ambulatory [facility] Work Phone: Start: 07-21-2023 End: 07-21-2023 Patient encounter procedure [facility] Physician [facility] Work Phone: Start: 06-28-2023 ambulatory Susana Jayla Schlumbohm PA-C Facility:[facility] Start: 06-27-2023 End: 06-27-2023 ambulatory Susana Jayla Schlumbohm PA-C Facility:[facility] Start: 06-22-2023 End: 06-22-2023 ambulatory Susana Jayla Schlumbohm PA-C Facility:[facility] Start: 05-17-2023 End: 05-17-2023 ambulatory Susana Jayla Schlumbohm PA-C Facility:[facility] Start: 04-21-2023 End: 04-21-2023 ambulatory Susana Jayla Schlumbohm PA-C Facility:[facility] Start: 04-20-2023 End: 04-20-2023 ambulatory Gabino Soni PA-C Facility:[facility] Start: 03-26-2023 End: 03-26-2023 ambulatory Jodie Portillo Other [employer] Other Start: 03-26-2023 Office outpatient visit 15 minutes Jodie Portillo [facility] Start: 02-24-2023 End: 02-24-2023 ambulatory Gabino Soni PA-C Facility:[facility] Start: 02-23-2023 End: 02-23-2023 ambulatory Janeth Pérez [facility] Facility:[facility] Start: 02-04-2023 ambulatory Gabino Soni PA-C Facility:[facility] Start: 10-02-2022 End: 10-02-2022 ambulatory Deidra Barbara Other [place] [employer] Other Start: 10-02-2022 Office outpatient ne w 20 minutes Deidra Barbara [facility] Start: 05-21-2019 Office outpatient [...] at a health care facility [facility] Start: 10-31-2018 Lab [facility] [place] [facility] Start: 10-31-2018 Office outpatient visit 15 minutes Cheryl Dobbins Other [facility] Start: 08-28-2018 Lab [facility] [place] [facility] Start: 08-28-2018 Office outpatient visit 15 minutes Cheryl Dobbins Other [facility] Start: 04-20-2018 End: 04-20-2018 Emergency department patient visit TALON Jolene [facility] Start: 03-08-2018 Lab Enrique sy Other [...] 07-28-2017 Emergency department patient visit TALON L [facility] Start: 01-13-2017 Office outpatient visit 15 [...] w 20 minutes Lyric Saad Pérez Other [facility] Office Procedures Date Procedure Procedure Detail [...] [facility] Start: 05-11-2019 EBV Complete Series Leander adalgisa Pérez Start: 04-27-2019 Doc meds verified [...] stick/tabl et rgnt auto w/o microscopy [facility] [place] Start: 04-20-2018 Radex spine lumbosac ral 2/3 views TALON CARONE Start: 04-20-2018 Basic metabolic pane l calcium total TALON CARONE Start: 04-20-2018 Blood count complete automated TALON CARONE Start: 04-20-2018 Microscopic urinalysis TALON CARONE Start: 04-20-2018 Urine test visual color cmprsn meths TALON CARONE Start: 04-20-2018 URINE RT REFLEX TO CULTURE TALON CARONE Start: 03-08-2018 Doc meds verified w/ pt or re [facility] [place] Start: 03-08-2018 Urine test visual color cmprsn meths [facility] [place] Start: 02-09-2018 Doc meds verified w/ pt or re [facility] [place] Start: 02-03-2018 Urine test visual color cmprsn meths [facility] [place] Start: 01-30-2018 Doc meds verified w/ pt or re [facility] [place] Start: 01-30-2018 Urine test visual color cmprsn meths [facility] [place] Start: 01-11-2018 Doc meds verified w/ pt [...] 06-07-2016 Cholesterol serum/wh ole blood total [facility] [place] Start: 06-07-2016 Gonadotropin chorion ic qualitative [facility] [place] Start: 06-07-2016 Hepatic function panel [facility] [place] Start: 04-23-2016 Urine test visual color cmprsn meths [facility] [place] Start: 03-19-2016 Urine test visual color cmprsn meths [facility] [place] Start: 02-12-2016 Assay of triglycerides [facility] [place] Start: 02-12-2016 Blood count complete auto&auto difrntl wbc [facility] [place] Start: 02-12-2016 Cholesterol serum/wh ole blood total [facility] [place] Start: 02-12-2016 Gonadotropin chorion ic qualitative [facility] [place] Start: 02-12-2016 Hepatic function panel [facility] [place] Plan of Treatment Date Care Activity Detail Author Start: 03-07-2024 ambulatory Ambulatory Facility:[facility] Start: 02-28-2024 End: 02-28-2024 Patient encounter procedure 02/28/2024 8:10 AM EDT Office Visit [facility] [address] [id number] Eleazar Lilly, DO [address] [place] [address] [facility] Start: 02-08-2024 End: 02-07-2025 SURESWAB(R) ADVANCED VAGINITIS PLUS, TMA SURESWAB(R) ADVANCED VAGINITIS PLUS, TMA Pathology and Cytology Routine Pelvic pain in female Expected: 02/08/2024 (Approximate), Expires: 02/07/2025 [facility] Work Phone: Comment on above: Expected: 02/08/2024 (Approximate), Expires: 02/07/2025 Start: 02-08-2024 End: 02-07-2025 US for US PELVIS-TRANSVAG IF INDICATED Imaging Routine Pelvic pain in female Expected: 02/08/2024 (Approximate), Expires: 02/07/2025 [facility] Comment on above: Expected: 02/08/2024 (Approximate), Expires: 02/07/2025 Start: 02-08-2024 End: 02-08-2024 Patient encounter procedure 02/08/2024 1:20 PM EDT Office Visit [facility] [address] [id number] Eleazar Lilly, DO [address] [place] [address] Arrived [facility] Comment on above: Arrived Start: 02-02-2024 [facility] Start: 01-08-2024 Influenza vaccination Influenza Vacc ine (#1) [facility] Start: 05-11-2019 Blood count complete auto&auto difrntl wbc CBC w diff [employer] Start: 05-11-2019 TSH Qn TSH [employer] Start: 11-02-2018 Blood count complete automated CBC & PLATELET COUNT; AUTOMATED [employer] Start: 11-02-2018 Comprehensive metabo lic panel Comprehensive metabolic panel [employer] Start: 11-02-2018 Gonadotropin chorion ic qualitative SERUM [employer] Start: 11-02-2018 Hemoglobin A1c/Hemoglobin.total mass fraction (Bld) Hgb A1c [employer] Start: 11-02-2018 Lipid panel Lipid panel [employer] Start: 11-02-2018 Thyrotropin Qn TSH (thyroid stimulating hormone) [employer] Start: 11-02-2018 Urnls dip stick/tabl et rgnt auto w/o microscopy UA [employer] Atopobium vaginae DN A [Presence] in Vaginal fluid by ELDON with probe detection [facility] Bacterial vaginosis associated bacterium 2 DNA [Presence] in Vaginal fluid by ELDON with probe detection [facility] CHLAMYDIA TRACHOMATI S (GENITO/STI) CHLAMYDIA TRACHOMATIS (GENITO/STI) Lab Routine Pelvic pain in female Ordered: 02/08/2024 [facility] Comment on above: Ordered: 02/08/2024 Estradiol (E2) [Mass/volume] in Serum or Plasma [facility] Estrogen [Mass/volum e] in Serum or Plasma [facility] Holter monitor study [facility] Lutropin [Units/volu me] in Serum or Plasma [facility] Megasphaera sp type 1 DNA [Presence] in Vaginal fluid by ELDON with probe detection [facility] Neisseria gonorrhoea e DNA [Presence] in Unspecified specimen by ELDON with probe detection Neisseria gonorrhea DNA probe, direct Lab Routine Pelvic pain in female Ordered: 02/08/2024 [facility] Comment on above: Ordered: 02/08/2024 Progesterone [Mass/volume] in Serum or Plasma [facility] XR Cervical spine 5 Views [facility] XR Thoracic and lumb ar spine Views for scoliosis [facility] Payers Date Payer Category Payer Self-pay 2022 Medicaid [place] [employer] [id number] 2022-Present [address] [place] [address] [id number] 2022 Medicaid [id number] 2022 Unknown 2015 Unknown [id number] [id number] 2014 Unknown [id number] 1996 Unknown [id number] [id number]3 1996 Unknown [id number] 2.16.840.1.703713.3.579.2.173 1996 Unknown [id number] 2.16.840.1.150700.3.579.2.196 1996 Unknown [id number] 2.16.840.1.898566.3.579.2.196 1996 Unknown [id number] 2.16.840.1.606492.3.579.2.196 1996 Unknown [id number] 2.16.840.1.382559.3.579.2.196 1996 Unknown [id number] 2.16.840.1.890927.3.579.2.196 1996 Unknown [id number] 2.16.840.1.439417.3.579.2.196 1996 Unknown [id number] 2.16.840.1.852232.3.579.2.196 1996 Unknown [id number] 2.16.840.1.967528.3.579.2.196 1996 Unknown [id number] 2.16.840.1.755692.3.579.2.196 1996 Unknown [id number] 2.16.840.1.346322.3.579.2.196 1996 Unknown [id number] 2.16.840.1.336513.3.579.2.196 1996 Unknown [id number] 2.16.840.1.556368.3.579.2.196 1996 Unknown [id number] 2.16.840.1.082873.3.579.2.196 1996 Unknown [id number] 2.16.840.1.473710.3.579.2.196 1996 Unknown [id number] 2.16.840.1.746228.3.579.2.1259 Unknown [id number] 2.16.840.1.375552.3.579.2.531 Social History Date Type Detail Facility Start: Unknown if ever smoked [employer] Start: 1 can pop/day [employer] Sex Assigned At [employer] Other Start: 07-21-2023 End: 02-02-2024 Tobacco smoking status INIS Never smoked tobacco (finding) [facility] Start: 1995 Sex Assigned At Female F [facility] Tobacco smoking status [facility] Tobacco smoking consumption unknown NOMS [...] nursing note reviewed. Exam conducted with a vascular physician present. Vitals: Estimated body mass index is [...] Eleazar Lilly DO documented in this encounter [facility] Evaluation note 03-26-2023 Note Date & [...] verbalized understanding and agrees with treatment plan [employer] Other Clinical Note 02-22-2023 Note Date & [...] breast self-examination (BSE). These experts include the [employer], the [place] Preventive Services Task Force, and the [employer]nec[employer]. Some experts [...] This means they are not cancer. ? [id number] [employer]. [address] [place] [address], [place] [address]. All rights reserved. This information is not intended as a substitute for professional medical care. Always follow your healthcare professional's instructions. [facility] Evaluation note 10-02-2022 Note [...] no improvement in 2 to 3 days [employer] Other Evaluation note Note Date & Type Note Facility Evaluation note Diagnosis Onset Date Acquired scoliosis acute Daily headache acute Fatigue acute Hot flashes acute Irregular menstrual cycle ac [place] Neck pain acute [facility] Work Phone: Evaluation note Note Date & Type Note Facility Evaluation note Diagnosis Onset Date Dizziness acute Heart palpitations acute [facility] Work Phone: Evaluation note Note Date & Type Note Facility Evaluation note Diagnosis Onset Date Dizziness acute Heart palpitations acute Anxiety acute Depression [facility] Work Phone: Evaluation note Note Date & Type Note Facility Evaluation note Diagnosis Onset Date Dizziness acute Heart palpitations acute Anxiety acute Depression acute Vaginal discharge noneactive Acute effusion of both middle ears noneactive [facility] Work Phone: Evaluation note Note [...] content) DATE CREATED AUTHOR 04/25/2018 Hannah Avalos [facility] DATE CREATED AUTHOR AUTHOR'S ORGANIZ ATION 12/02/2019 [facility] DATE CREATED AUTHOR AUTHOR'S ORGANIZ ATION 01/27/2024 [facility] DATE CREATED AUTHOR AUTHOR'S ORGANIZ ATION 02/06/2024 [facility] DATE CREATED AUTHOR AUTHOR'S ORGANIZ ATION 02/10/2024 [facility] EPIC REASON FOR VISIT (unrecogniz ed section and content) Reason Comments [facility] Teams (unrecognized sec tion and content) Team Status: Active Member Role Status Dates Evelyn Vu APRN PLANTING MACHINE OPERATOR-C Primary Care Provider Active Team Status: Inactive Member Role Status Dates Evelyn Vu APRN PLANTING MACHINE OPERATOR-C Primary Care Provider, Attending Provider Active Start: July 21, 2023 End: July 21, 2023 Team Status: Inactive Member Role Status Dates Evelyn Vu APRN PLANTING MACHINE OPERATOR-C Primary Care Provider, Attending Provider Active Start: January 03, 2024 End: January 03, 2024 Team Status: Active Member Role Status Dates Evelyn Vu APRN PLANTING MACHINE OPERATOR-C Primary Care Provider Active Start: January 072023 Ty Aguilar DO Attending Provider Active S tart: January 19, 2024 Team Status: Inactive Member Role Status Dates Evelyn Vu APRN PLANTING MACHINE OPERATOR-C Primary Care Provider, Attending Provider Active Start: January 24, 2024 End: January 24, 2024 Team Status: Inactive Member Role Status Dates Evelyn Vu APRN PLANTING MACHINE OPERATOR-C Primary Care Provider Active Start: January 082023 End: February 02, 2024 Jodie Portillo APRN Attending Provider Active Start: February 02, 2024 End: February 02, 2024 Team Status: Inactive Member Role Status Dates Jodie Portillo APRN Attending Provider Active Start: February 02, 2024 End: February 02, 2024 Explosives Handler Relationship Specialty Start Date End Date Corwin Dee DO [address] [place] [address] PCP - General Family Medicine 09/14/22 Explosives Handler Relationship Specialty Start Date End Date Corwin Dee DO [address] [place] [address] PCP - General Family Medicine 09/14/22 Explosives Handler Relationship Specialty Start Date End Date Corwin Dee DO [address] [place] [address] PCP - General Family Medicine 09/14/22 Goals [...] BE BASED ON THE PRIMARY CLINICAL RECORDS. [employer] provides no warranty or guarantee of the accuracy or completeness of information in this document.
[2024-02-21 12:16] LABS: HCG Quantitative <1 mIU/mL
== END 2024-02-21 10:22 | disposition home or self-care (01) ==
LOC: LAB 10:24
PROVIDERS: PCP Nurse Practitioner Family; Visit Provider Obstetrics & Gynecology
DX: N83.202 Unspecified ovarian cyst, left side (principal)
CPT/HCPCS: 36415; 84702

== ENCOUNTER 2024-02-27 18:37 | Emergency (ER) | payer MEDICAID, SELFPAY ==
--- OUTSIDE RECORDS SUMMARY | 2024-02-27 18:44 | XMS_ITS | CCD ---
Author Organization [facility] Care Team Providers Care Disability Services Coordinator Name Role Phone TALON VERAS Unavailable Unavailable [...] [facility] U navailable Troyjosé miguel MONTERROSON-FOREST SCIENTIST, Ana Serra Attending Carley vailable Schlumbohm PA-C, [...] Gabino Portillo Primary Care Unavail able Cleemput BILINGUAL 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 ASSISTANT-FOREST SCIENTIST, Cheryl Shields Attending Unaprkirk DE PAZC, Gabino Portillo Primary Care Unavail able Schnormaohm ZANDRAC, Susana Dickerson Attending U navailable Cheri DE PAZC, Susana Dickerson Attending U vanailable Zachariah DE PAZC, Gabino Portillo Primary Care Unavail able Schluolyohm PA-C, Susana Dickerson Primary Care U navailable Schnormaohm PA-C, Susana Dickerson Attending U navailable Beto [facility], Janeth Maldonado Attending Unavail able Zachariah MARIE-C, Gabino Portillo Primary Care Unavail able Schsimran PA-C, Susana Dickerson Primary Care U navailable Troy BILINGUAL 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 ASSISTANT-FOREST SCIENTIST, Ana Serra Attending Carley verito DE PAZC, Gabino Portillo Primary Care Unavail able Troy BILINGUAL 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 ASSISTANT-FOREST SCIENTIST, Ana Serra Attending Carley verito DE PAZC, Gabino Portillo Primary Care Unavail able Troy BILINGUAL 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 ASSISTANT-FOREST SCIENTIST, Ana Serra Attending Carley GELACIO Holt Attending Provider [phone] Jodie Portillo Attending Unavailable Jodie Portillo Admitting [...] cough Start: 05-21-2019 take 1 capsule by [facility] three times daily as needed for [...] 0.000 [facility] ATOPOBIUM VAGINAE Not detected [facility] BVAB 2,3 (BACTERIAL VAGINOSIS ASSOCIATED BACTERIA 2, 3); MOBILUNCUS SPP 0.000 [facility] BVAB 2,3 (BACTERIAL VAGINOSIS ASSOCIATED BACTERIA [...] Interpretation and review of laboratory results Normal [facility] Preg Test, Ur Negative [facility] Urinalysis macro (dipstick) panel (U)on 02-08-2024 Bilirubin, UA Negative Negative - 4(70) +++ mg/dL [facility] Blood, UA Negative Negative - 50 Fuad/mcL [facility] Clarity, UA Clear [facility] Color, UA Yellow [facility] Glucose, UA Negative Negative - 2000(110) ++++ mg/dL [facility] Interpretation and review of laboratory results Normal [facility] Ketones, UA Negative Negative - 160(16) ++++ mg/dL [facility] Leukocytes, UA Negative Negative - 500+++ Sandie/mcL [facility] Nitrite, UA Negative Negative - Positive [facility] pH, UA 7.5 5 - 9 [facility] Protein, UA Negative Negative - 2000(20) ++++ mg/dL [facility] Spec Grav, UA 1.020 1 - 1.03 [facility] Urobilinogen, UA 0.2 0.2 - 12 mg/dL [facility] Vaginitis Plus (VG+)on 02-01 Atopobium Vaginae Low - [address] [facility] Comment on above: Result Comment: This test was developed and its performance characteristics determined by [facility]. It has not been cleared or approved by the Food and Drug Administration. Performed By: #### V AGINITIS+ #### [facility] , BVAB2 Low - 0 Normal . [facility] Comment on above: Result Comment: This test was developed and its performance characteristics determined by [facility]. It has not been cleared or approved by the Food and Drug Administration. Performed By: #### V AGINITIS+ #### [facility] , Alicia Albicans, ELDON Positive Critically abnormal Negative [facility] Comment on above: Result Comment: This test was developed and its performance characteristics determined by [facility]. It has not been cleared or approved by the Food and Drug Administration. Performed By: #### V AGINITIS+ #### [facility] , Alicia Glabrata, ELDON Negative Normal Negative [facility] Comment on above: Result Comment: This test was developed and its performance characteristics determined by [facility]. It has not been cleared or approved by the Food and Drug Administration. PERFORMED BY: [facility] [place] [place] [id number] PATHOLOGIST FINANCIAL AID COUNSELOR IRENE TURPIN M.D. Performed By: #### V AGINITIS+ #### [facility] , Chlamydia Trachomotis, ELDON Negative Normal Negative [facility] Comment on above: Performed By: #### V AGINITIS+ #### [facility] , Megasphaera Low - 0 Normal . [facility] Comment on above: Result Comment: [...] Neisseria Gonorrhoeae, ELDON Negative Normal Negative [facility] Comment on above: Result Comment: Perf ormed at: =G - [facility] [address] [id number] Coach: Bri Keenan MD, Phone: [phone] Performed By: #### V AGINITIS+ #### [facility] , Tric Vag ELDON Negative Normal Negative [facility] Comment on above: Performed By: #### V AGINITIS+ #### [facility] , Basophils Auto (Bld) [#/Vol] on 01-19-2024 Basophils (Bld) [#/Vol] 0.0 10 3/uL 0.0-0.1 [facility] Basophils/100 WBC Auto (Bld) on 01-19-2024 Basophils/100 WBC (Bld) 0.4 % 0.2-2.0 [facility] Eosinophils/100 WBC Auto (Bl d)on 01-19-2024 Eosinophils/100 WBC (Bld) 1.0 % 0.9-7.0 [facility] Erythrocyte distribution wid th Auto (RBC) [Ratio]on 01-19-2024 Erythrocyte distribution width (RBC) [Ratio] 11.7 % 11.0-15.0 [facility] Estimated glomerular filtrat ion rate (GFR) non- Americanon 01-19-2024 GFR/1.73 sq M.predicted among non-blacks MDRD (S/P/Bld) [Vol rate/Area] mL/min/{1.73_m2} >=60 [facility] Hematocrit Auto (Bld) [Volum e fraction]on 01-19-2024 Hematocrit (Bld) [Volume fraction] 39.6 % 36.0-48.0 [facility] Hemoglobin [Mass/volume] in Bloodon 01-19-2024 Hemoglobin (Bld) [Mass/Vol] 14.3 g/dL 12.0-16.0 [facility] Laboratory - Chemistry and C hemistry - challengeon 01-19-2024 Calcium [Mass/Vol] 8.7 mg/dL 8.5-10.1 [facility] Chloride [Moles/Vol] 100 mmol/L 98-107 [facility] CO2 [Moles/Vol] 27.5 mmol/L 21.0-32.0 [facility] Creatinine [Mass/Vol] 0.88 mg/dL 0.55-1.02 [facility] GFR/1.73 sq M.predicted MDRD (S/P/Bld) [Vol rate/Area] mL/min/{1.73_m2} >=60 [facility] Glucose [Mass/Vol] 94 mg/dL 74-106 [facility] Potassium [Moles/Vol] 3.3 mmol/L Low 3.5-5.1 [facility] Sodium [Moles/Vol] 135 mmol/L Low 136-145 [facility] Urea nitrogen [Mass/Vol] 12.0 mg/dL 7.0-18.0 [facility] Urea nitrogen/Creatinine [Mass ratio] 13.6 mg/mg [facility] Laboratory - Hematology and Cell countson 01-19-2024 Immature granulocytes/100 WBC (Bld) 0.0 % 0.0-0.5 [facility] Leukocytes [#/volume] correc leonidas for nucleated erythrocytes in Blood by Automated counon 01-19-2024 WBC corrected for nucl RBC Auto (Bld) [#/Vol] 4.8 10 3/uL 4.0-11.0 [facility] Lymphocytes Auto (Bld) [#/Vo l]on 01-19-2024 Lymphocytes (Bld) [#/Vol] 1.2 10 3/uL 1.2-3.8 [facility] Lymphocytes/100 WBC Auto (Bl d)on 01-19-2024 Lymphocytes/100 WBC (Bld) 25.1 % 20.5-60.0 [facility] MCH Auto (RBC) [Entitic mass ]on 01-19-2024 MCH (RBC) [Entitic mass] 30.4 pg 26.7-34.0 [facility] MCHC Auto (RBC) [Mass/Vol]on 01-19-2024 MCHC (RBC) [Mass/Vol] 36.1 g/dL High 29.9-35.2 [facility] MCV Auto (RBC) [Entitic vol] on 01-19-2024 MCV (RBC) [Entitic vol] 84.1 fL 81.0-99.0 [facility] Monocytes Auto (Bld) [#/Vol] on 01-19-2024 Monocytes (Bld) [#/Vol] 0.6 10 3/uL 0.3-0.8 [facility] Monocytes/100 WBC Auto (Bld) on 01-19-2024 Monocytes/100 WBC (Bld) 11.6 % 1.7-12.0 [facility] Neutrophils Auto (Bld) [#/Vo l]on 01-19-2024 Neutrophils (Bld) [#/Vol] 3.0 10 3/uL 1.4-6.5 [facility] Neutrophils/100 WBC Auto (Bl d)on 01-19-2024 Neutrophils/100 WBC (Bld) 61.9 % 43.0-75.0 [facility] No Panel Informationon 01-18 Eosinophils # (Auto) 0.1 10 3/uL 0.0-0.7 [facility] Human Chorionic Gonadotropin, Qual Negative NEGATIVE [facility] Immature Granulocyte # (Auto) 0.00 10 3/uL 0.00-0.03 [facility] Platelet mean volume Auto (B ld) [Entitic vol]on 01-19-2024 Platelet mean volume (Bld) [Entitic vol] 11.2 fL 9.5-13.5 [facility] Platelets Auto (Bld) [#/Vol] on 01-19-2024 Platelets (Bld) [#/Vol] 137 10 3/uL Low 150-450 [facility] RBC Auto (Bld) [#/Vol]on RBC (Bld) [#/Vol] 4.71 10 6/uL 4.20-5.40 [facility] Serum or plasma anion gap de terminationon 01-19-2024 Anion gap [Moles/Vol] 10.8 mmol/L [facility] Choriogonadotropin.beta subu nit ( test) [Presence] in Urineon 01-03-2024 Beta HCG ( test) Ql (U) Negative [facility] Influenza virus A and B and SARS-CoV-2 (COVID-19) RNA panel - Respiratory system specon 01-03-2024 Influenza virus A and B RNA and SARS-CoV-2 (COVID-19) N gene panel ELDON+probe (Resp) Negative [facility] Laboratory - Microbiology an d Antimicrobial susceptibilityon 01-03-2024 SARS-CoV-2 (COVID-19) RNA ELDON+probe Ql (Unsp spec) Negative [facility] No Panel Informationon 01-02 POC Influenza B (ELDON) Negative [facility] No Panel InformationOrdered By: Evelyn Vu on 01-03-2024 Quick Strep (POC) [facility] Family Medicine Office/Clini c Noteon 05-17-2023 [...] weakness, visual symptoms. She works at the [employer], not using computer often besides being on [...] Avoid eating within 3 hours of bed; hot top liner dinner; limit drinking before bed; Avoid food triggers; Avoid alcohol and caffeine (especially before bed). Raise head of bed. Call or RTO if symptoms are not improving, changing or progressing. Ordered: omeprazole, 1 caps, Oral, Daily, before a meal, # 30 caps, 3 Refill(s), Pharmacy: [id number] Orders: venlafaxine, 2 caps, Oral, Daily, Take one capsule for at least 4 days then start taking 2 capsules once daily., # 60 caps, 3 Refill(s), Pharmacy: [id number] Time Spent with the Pat (more content not included)... Normal [facility] .eGFRon 04-21-2023 GFR/1.73 sq M.predicted MDRD (S/P/Bld) [Vol rate/Area] mL/min/{1.73_m2} Normal >=60 [facility] Comment on above: Result Comment: [facility] Laboratories have implemented the eGFR calculation approach [...] years Performed By: #### E GFR #### [facility] [address] [place] [address] CBC w/ Diffon 04-21-2023 Erythrocyte distribution width (RBC) [Ratio] 13.2 % Normal 11.6-14.8 [facility] Comment on above: Performed By: #### C BC #### [facility] [address] [place] [address] Hematocrit (Bld) [Volume fraction] 41.7 % Normal 36.0-46.0 [facility] Comment on above: Performed By: #### C BC #### [address] [address] Hemoglobin (Bld) [Mass/Vol] 14.4 g/dL Normal 12.0-16.0 [facility] Comment on above: Performed By: #### C BC #### [address] [address] MCH (RBC) [Entitic mass] 29.6 pg Normal 27.0-35.0 [facility] Comment on above: Performed By: #### C BC #### [address] [address] MCHC 34.4 % Normal 31.0-37.0 [facility] Comment on above: Performed By: #### C BC #### [address] [address] MCV (RBC) [Entitic vol] 85.9 fL Normal 80.0-100.0 [facility] Comment on above: Performed By: #### C BC #### [address] [address] Platelet 171 x10*3/mcL Normal 150-450 [facility] Comment on above: Performed By: #### C BC #### [address] [address] Platelet mean volume (Bld) [Entitic vol] 9.4 fL Normal 6.7-10.6 [facility] Comment on above: Performed By: #### C BC #### [address] [address] RBC 4.86 x10*6/mcL Normal 3.80-5.20 [facility] Comment on above: Performed By: #### C BC #### [address] [address] WBC 6.1 x10*3/mcL Normal 4.5-11.0 [facility] Comment on above: Performed By: #### C BC #### [address] [address] CMPon 04-21-2023 Albumin [Mass/Vol] 4.3 g/dL Normal 3.2-4.9 [facility] Comment on above: Performed By: #### C OMP #### [address] [address] Albumin/Globulin [Mass ratio] 1.2 {ratio} Normal 1.1-2.2 [facility] Comment on above: Performed By: #### C OMP #### [address] [address] Alk Phos 65 IU/L Normal 32-91 [facility] Comment on above: Performed By: #### C OMP #### [address] [address] ALT [Catalytic activity/Vol] 23 U/L Normal 14-54 [facility] Comment on above: Performed By: #### C OMP #### [address] [address] Anion gap [Moles/Vol] 10 mmol/L Normal 7-17 [facility] Comment on above: Performed By: #### C OMP #### [address] [address] AST [Catalytic activity/Vol] 25 U/L Normal 15-41 [facility] Comment on above: Performed By: #### C OMP #### [address] [address] Bili Total 0.7 mg/dL Normal 0.3-1.2 [facility] Comment on above: Performed By: #### C OMP #### [address] [address] Calcium [Mass/Vol] 9.5 mg/dL Normal 8.5-10.3 [facility] Comment on above: Performed By: #### C OMP #### [address] [address] Chloride [Moles/Vol] 109 mmol/L Normal 98-110 [facility] Comment on above: Performed By: #### C OMP #### [address] [place] [address] CO2 [Moles/Vol] 26 mmol/L Normal 22-32 [facility] Comment on above: Performed By: #### C OMP #### [address] [address] Creatinine [Mass/Vol] 1.08 mg/dL High 0.44-1.03 [facility] Comment on above: Performed By: #### C OMP #### [address] [address] Glucose [Mass/Vol] 97 mg/dL Normal 70-99 [facility] Comment on above: Performed By: #### C OMP #### [address] [address] Potassium [Moles/Vol] 3.9 mmol/L Normal 3.4-4.8 [facility] Comment on above: Performed By: #### C OMP #### [address] [address] Protein [Mass/Vol] 7.8 g/dL Normal 6.5-8.1 [facility] Comment on above: Performed By: #### C OMP #### [address] [address] Sodium [Moles/Vol] 141 mmol/L Normal 133-142 [facility] Comment on above: Performed By: #### C OMP #### [address] [address] Urea nitrogen [Mass/Vol] 8 mg/dL Normal 8-26 [facility] Comment on above: Performed By: #### C OMP #### [address] [address] Urea nitrogen/Creatinine [Mass ratio] 7.4 mg/mg Low 10.0-20.0 [facility] Comment on above: Performed By: #### C OMP #### [address] [address] Diff Autoon 04-21-2023 Baso Absolute 0.0 x10*3/mcL Normal 0.0-0.2 [facility] Comment on above: Performed By: #### . Automated Diff #### [address] [address] Basophils/100 WBC (Bld) 0.4 % Normal 0.0-1.5 [facility] Comment on above: Performed By: #### . Automated Diff #### [address] [address] Eos Absolute 0.1 x10*3/mcL Normal 0.0-0.4 [facility] Comment on above: Performed By: #### . Automated Diff #### [address] [address] Eosinophils/100 WBC (Bld) 1.3 % Normal 0.0-5.4 [facility] Comment on above: Performed By: #### . Automated Diff #### [address] [address] Lymph Absolute 2.3 x10*3/mcL Normal 1.0-4.8 [facility] Comment on above: Performed By: #### . Automated Diff #### [address] [address] Lymphocytes/100 WBC (Bld) 37.8 % Normal 27.2-40.8 [facility] Comment on above: Performed By: #### . Automated Diff #### [address] [address] [place] Absolute 0.4 x10*3/mcL Normal 0.1-1.1 [facility] Comment on above: Performed By: #### . Automated Diff #### [address] [address] Monocytes/100 WBC (Bld) 5.8 % Normal 3.7-11.9 [facility] Comment on above: Performed By: #### . Automated Diff #### [address] [address] Neutro Absolute 3.4 x10*3/mcL Normal 1.8-7.7 [facility] Comment on above: Performed By: #### . Automated Diff #### [address] [address] Neutro Auto 54.7 % Normal 47.2-70.8 [facility] Comment on above: Performed By: #### . Automated Diff #### [address] [address] Lipid Panelon 04-21-2023 Cholesterol in LDL [Mass/Vol] 140 mg/dL High 0-99 [facility] Comment on above: Result Comment: The equation being used in this calculation is LDL = (Chol - HDL) - (Trig / 5) The optimal value of LDL for individual patients may vary. The patient's history of Artherosclerosis and other cardiac risk factors should be considered. Performed By: #### L CM #### [address] [address] Cardiac Risk 4.4 Normal [facility] Comment on above: Result Comment: Men Women 1/2 Average 3.43 3.27 Average 4.97 4.44 2x Average 9.55 7.05 3x Average 23.99 11.04 Performed By: #### L CM #### [address] [address] Cholesterol [Mass/Vol] 198 mg/dL Normal 25-199 [facility] Comment on above: Result Comment: 0 - 17 years of age: Desirable 0-170 Borderline High 170-199 High >=200 18 years and older: Acceptable <200 Borderline High 200-239 High >=240 Performed By: #### L CM #### [address] [address] Cholesterol in HDL [Mass/Vol] 45.2 mg/dL Normal 40.0-60.0 [facility] Comment on above: Performed By: #### L CM #### [address] [address] Cholesterol in VLDL [Mass/Vol] 13 mg/dL Normal 8-39 [facility] Comment on above: Performed By: #### L CM #### [address] [place] [address] Triglyceride [Mass/Vol] 64 mg/dL Normal [facility] Comment on above: Result Comment: 0 - 17 years of age: Trig 90 - 129 Borderline High Trig => 130 High 18 years and older: Trig 150 - 199 Borderline High Trig 200 - 499 High Trig =>500 Very High Performed By: #### L TOI #### [facility] [address] [place] [address] Family Medicine Office/Clini c Noteon 04-20-2023 Family Medicine Office/Clinic Note Chief Complaint Wellness History of Present Illness Patient is a 27-year-old female who presents the office today for a work physical for [employer]. 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 Care team: Gynecology: AUSTIN Simmons. Dermatology: Roff- was taking isotretinoin- recently discontinued. Psychiatry: Counseling. [...] weakness, visual symptoms. She works at the [employer], not using computer often besides being on [...] Pr (more content not included)... 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 Last pap negative 02/18/2022. No gardasil [...] Lifetime: 5 Comments 02/24/23 11:26:00 Annual exam. [id number] two year old daughter. In monogamous relationship, declines STI screening. GC/CT negative 04/2022. States no concerns today. Still considering Paragard IUD, has code sheet and pamphlet from prev. discussion. Denies any family hx of breast, ovarian or uterine cancer. Working part-time at the [employer]. Walks for exercise. Review of Systems Head [...] I (more content not included)... Normal [facility] Quick Strepon 10-02-2022 S. pyogenes Org specific cx Ql (Throat) Negative [employer] Other Quick Strep [facility] Other COVID19(IDNOW)on 11-30-2019 COVID19(IDNOW) NOT DETECTED Normal NOT DETECTED [facility] Comment on above: Result Comment: Nega tive results do not preclude SARS-CoV-2 infection and should not be used as the sole basis for treatiment or other patient management. ENHANCED CONTACT, AND DROPLET ISOLATION IS REQUIRED FOR INPATIENTS WITH SARS-CoV-2. Performed By: #### C OVID19(IDNOW) #### [facility] [address] [place] [address] Age at specimen collection = Normal [facility] Comment on above: Performed By: #### C OVID19(IDNOW) #### [facility] [address] [place] [address] Hematologyon 05-11-2019 Basophils (Bld) [#/Vol] 0.0 10*3/uL 0.0-0.1 [facility] Basophils/100 WBC (Bld) 0.40 % 0.0-1.0 [facility] Eosinophils (Bld) [#/Vol] 0.10 10*3/uL 0.0-0.5 [facility] Eosinophils/100 WBC (Bld) 1.30 % 0.0-7.0 [facility] Hematocrit (Bld) [Volume fraction] 41.30 % 35.7-47.1 [facility] Hemoglobin (Bld) [Mass/Vol] 14.10 g/dL 11.9-15.7 [facility] Lymphocytes (Bld) [#/Vol] 2.20 10*3/uL 0.9-3.1 [facility] Lymphocytes/100 WBC (Bld) 29.30 % 15.0-46.0 [facility] MCH (RBC) [Entitic mass] 29.90 pg 23.2-33.3 [facility] MCV (RBC) [Entitic vol] 87.50 fL 83.4-101.4 [facility] Monocytes (Bld) [#/Vol] 0.60 10*3/uL 0.3-1.0 [facility] Monocytes/100 WBC (Bld) 8.60 % 4.0-12.0 [facility] Neutrophils (Bld) [#/Vol] 4.50 10*3/uL 1.8-7.9 [facility] Neutrophils/100 WBC (Bld) 60.0 % 43.0-76.0 [facility] Platelets (Bld) [#/Vol] 160.0 10*3/uL 150-400 [facility] RBC (Bld) [#/Vol] 4.720 10*6/uL 3.72-5.24 [facility] WBC (Bld) [#/Vol] 7.40 10*3/uL 3.9-10.3 [facility] Otheron 05-11-2019 Erythrocyte distribution width (RBC) [Ratio] 12.10 % 11.5-15.5 [facility] [employer] [facility] Immature granulocytes (Bld) [#/Vol] 0.030 10*3/uL 0.00-0.06 [facility] Immature granulocytes/100 WBC (Bld) 0.40 % 0.0-0.5 [facility] MCHC (RBC) [Mass/Vol] 34.10 g/dL 32.0-36.0 [facility] [employer] Platelet mean volume (Bld) [Entitic vol] 11.10 fL 8.3-11.5 [facility] COMMENT [facility] <9.0 0.0-8.9 [facility] [employer] 303.0 0.0-17.9 [facility] <36.0 0.0-35.9 [facility] 38.9 0.0-17.9 [employer] Thyroidon 05-11-2019 TSH Qn 1.96 m[IU]/L 0.50-4.00 [facility] [employer] Basic Metabolic Profon 04-20 (cont.) Normal [facility] Comment on above: Result Comment: Aver age GFR for 20-29 years old: 116 mL/min/1.73sq mChronic Kidney Disease: <60 mL/min/1.73sq mKidney failure: <15 mL/min/1.73sq meGFR calculated using average adult body mass. Additional eGFR calculator available at:http://www.[employer]/multiple_crcl_2011.htm Performed By: #### B MP, CBC ####[address] [place] [id number] Anion gap 3 molar conc 11 mmol/L Normal 9-17 [facility] Comment on above: Performed By: #### B MP, CBC ####[address] [place] [id number] BUN/CRE Ratio 18 Normal 9-20 [facility] Comment on above: Performed By: #### B MP, CBC ####[address] [place] [id number] Calcium mass conc 9.2 mg/dL Normal 8.6-10.[address] [facility] Comment on above: Performed By: #### B MP, CBC ####[address] [place] [id number] Chloride molar conc 102 mmol/L Normal 98-107 [facility] Comment on above: Performed By: #### B MP, CBC ####[address] [place] [id number] CO2 molar conc 26 mmol/L Normal 20-31 [facility] Comment on above: Performed By: #### B MP, CBC ####[address] [place] [address] Creatinine mass conc 0.65 mg/dL Normal 0.50-0.90 [facility] Comment on above: Performed By: #### B MP, CBC ####[address] [place] [address] GFR, Amer >60 Normal >60 [facility] Comment on above: Performed By: #### B MP, CBC ####[address] [place] [address] GFR,non Amer >60 Normal >60 [facility] Comment on above: Performed By: #### B MP, CBC ####[address] [place] [address] Glucose mass conc 89 mg/dL Normal 70-[address] [facility] Comment on above: Performed By: #### B MP, CBC ####[address] [place] [address] Potassium molar conc 3.8 mmol/L Normal 3.7-5.3 [facility] Comment on above: Performed By: #### B MP, CBC ####[address] [place] [address] Sodium molar conc 139 mmol/L Normal 135-[address] [facility] Comment on above: Performed By: #### B MP, CBC ####[address] [place] [address] Staging: Normal [facility] Comment on above: Result Comment: Stag e 1: Some kidney damage normal GFRStage 2: Mild kidney damage GFR 60-89Stage 3: Moderate kidney damage GFR 30-59Stage 4: Severe kidney damage GFR 15-29Stage 5: Severe kidney damage GFR <15ESRD - chronic treatment by dialysis or transplant Performed By: #### B MP, CBC ####[address] [place] [address] Urea nitrogen mass conc 12 mg/dL Normal 6-20 [facility] Comment on above: Performed By: #### B MP, CBC ####[address] [place] [id number] CBCon 04-20-2018 Erythrocyte distribution width Auto Ratio (RBC) 12.1 % Normal 11.8-14.4 [facility] Comment on above: Performed By: #### B MP, CBC ####[address] [place] [address] Hematocrit Auto Volume Fraction (Bld) 42.6 % Normal 36.3-47.1 [facility] Comment on above: Performed By: #### B MP, CBC ####[address] [place] [address] Hemoglobin mass conc (Bld) 14.7 g/dL Normal 11.9-15.1 [facility] Comment on above: Performed By: #### B MP, CBC ####[address] [place] [address] MCH Auto Entitic mass (RBC) 30.2 pg Normal 25.2-33.5 [facility] Comment on above: Performed By: #### B MP, CBC ####[address] [place] [address] MCHC Auto mass conc (RBC) 34.5 g/dL Normal 28.4-34.8 [facility] Comment on above: Performed By: #### B MP, CBC ####[address] [place] [address] MCV Auto Entitic volume (RBC) 87.7 fL Normal 82.6-102.9 [facility] Comment on above: Performed By: #### B MP, CBC ####[address] [place] [address] NRBC Automated 0.0 per 100 WBC Normal 0.0 [facility] Comment on above: Performed By: #### B MP, CBC ####[address] [place] [address] Platelet mean volume Auto Entitic volume (Bld) 10.8 fL Normal 8.1-13.5 [facility] Comment on above: Performed By: #### B MP, CBC ####[address] [place] [address] Platelets Auto #/vol (Bld) 142 10*3/uL Normal 138-453 [facility] Comment on above: Performed By: #### B MP, CBC ####[address] [place] [address] RBC Auto #/vol (Bld) 4.86 10*6/uL Normal 3.95-5.11 [facility] Comment on above: Performed By: #### B MP, CBC ####[address] [place] [address] WBC Auto #/vol (Bld) 6.2 10*3/uL Normal 4.5-13.5 [facility] Comment on above: Performed By: #### B MP, CBC ####[address] [place] [address] HCG, ,Urineon 04-20 HCG.beta subunit ( test) Ql (U) Negative Normal NEG [facility] Comment on above: Result Comment: Spec imens with hCG levels near the threshold of the test (25 mIU/mL) may give a negative or indeterminate result. In such cases, another test should be performed with a new specimen in 48-72 hours. If early is suspected clinically in this setting, correlation with quantitative serum b-hCG level is suggested.[employer] [facility] has confirmed the use of plasma for this test. This has not been cleared or approved by the U.S. Food and Drug Administration. The FDA has determined that such clearance is not necessary. Performed By: #### U HCG ####[address] [place] [id number] UA w/Reflex Cultureon 2017 Acetoacetic Acid,Ur Negative Normal NEG [facility] Comment on above: Performed By: #### U AX UMICAO ####[address] [place] [address] Bilirubin, SemiQt,Ur Negative Normal NEG [facility] Comment on above: Performed By: #### U AX UMICAO ####[address] [place] [address] Color YELLOW Normal YEL [facility] Comment on above: Performed By: #### U PALOMO UMICAO ####[address] [place] [address] Glucose,Semi-qnt,Ur Negative Normal [facility] Comment on above: Performed By: #### Tonja CULVER UMICAO ####[address] [place] [address] Hemoglobin, Ur Negative Normal NEG [facility] Comment on above: Performed By: #### Tonja CULVER UMICAO ####[address] [place] [address] Leuckocyte Esterase Negative Normal [facility] Comment on above: Performed By: #### U PALOMO UMICAO ####[address] [place] [address] Nitrite,Ur Negative Normal [facility] Comment on above: Performed By: #### U AX UMICAO ####[address] [place] [address] PH,Ur 6.0 Normal 5.0-9.0 [facility] Comment on above: Performed By: #### U AX UMICAO ####[address] [place] [address] Protein, Semi-qnt,Ur Negative Normal NEG [facility] Comment on above: Performed By: #### U AX, UMICAO ####[address] [place] [address] Spec. [place],Ur 1.025 High 1.010-1.[address] [facility] Comment on above: Performed By: #### U AX, UMICAO ####[address] [place] [address] Turbidity CLEAR Normal CLEAR [facility] Comment on above: Performed By: #### U AX, UMICAO ####[address] [place] [address] Urobilinogen,Ur Normal Normal NORM [facility] Comment on above: Performed By: #### U AX, UMICAO ####[address] [place] [address] Comment NOT REPORTED Normal [facility] Comment on above: Performed By: #### U AX, UMICAO ####[address] [place] [address] Urinalysis,Microon 8 ----- Normal [facility] Comment on above: Performed By: #### U AX, UMICAO ####[address] [place] [address] Bacteria 1+ Abnormal NONE [facility] Comment on above: Performed By: #### U AX, UMICAO ####[address] [place] [address] Epithelial cells 2 TO 5 Normal 0-25 [facility] Comment on above: Performed By: #### U AX, UMICAO ####[address] [place] [address] RBC Test strip #/vol (U) None Normal 0-2 [facility] Comment on above: Performed By: #### U AX, UMICAO ####[address] [place] [address] Urine WBC's 0 TO 2 Normal 0-5 [facility] Comment on above: Performed By: #### U AX, UMICAO ####[address] [place] [address] Amorphous Sediment NOT REPORTED Normal NONE [facility] Comment on above: Performed By: #### U AX, UMICAO ####[address] [place] [address] Casts NOT REPORTED Normal [facility] Comment on above: Performed By: #### U AX, UMICAO ####[address] [place] [address] Crystals NOT REPORTED Normal NONE [facility] Comment on above: Performed By: #### U AX, UMICAO ####[address] [place] [address] Epithelial, Renal NOT REPORTED Normal 0 [facility] Comment on above: Performed By: #### U AX, UMICAO ####[address] [place] [address] Mucus Strands NOT REPORTED Normal NONE [facility] Comment on above: Performed By: #### U AX, UMICAO ####[address] [place] [address] Other Observations NOT REPORTED Normal NREQ [facility] Comment on above: Performed By: #### U AX, UMICAO ####[address] [place] [address] Trichomonas NOT REPORTED Normal NONE [facility] Comment on above: Performed By: #### U AX, UMICAO ####[address] [place] [address] Yeast NOT REPORTED Normal NONE [facility] Comment on above: Performed By: #### U AX, UMICAO ####[facility] [place] [address] XR LUMBAR SPINE (2-3 [...] by:RIVER Jassoigned by:Phil Messer MD04/20/18inal result Normal [facility] Otheron 03-08-2018 Negative [facility] Otheron 02-03-2018 Negative [facility] Otheron 01-30-2018 Negative [facility] Cardiacon 12-28-2017 Cholesterol [Mass/Vol] 156.0 mg/dL 0-200 [facility] Cholesterol in HDL [Mass/Vol] 54.0 mg/dL 50-100 [facility] Cholesterol in LDL [Mass/Vol] 79.0 mg/dL 0-130 [facility] Triglyceride [Mass/Vol] 116.0 mg/dL 30-150 [facility] Metabolic Panelon 12-28-2017 Albumin [Mass/Vol] 4.70 g/dL 3.7-4.5 [facility] [employer] ALP [Catalytic activity/Vol] 83.0 U/L 31-155 [facility] ALT [Catalytic activity/Vol] 15.0 U/L 0-50 [employer] AST [Catalytic activity/Vol] 19.0 U/L 0-40 [facility] Bilirubin [Mass/Vol] 0.70 mg/dL 0.0-1.0 [facility] [employer] Protein [Mass/Vol] 7.80 g/dL 6.3-7.9 [facility] [employer] Otheron 12-28-2017 Albumin/Globulin [Mass ratio] 1.5 {ratio} 1.0-2.4 [employer] Cholesterol in VLDL [Mass/Vol] 23.0 mg/dL 0-39 [employer] Cholesterol.total/Cho lesterol in HDL [Mass ratio] 3 {ratio} [employer] Negative [employer] CBCon 07-28-2017 Erythrocyte distribution width Auto Ratio (RBC) 11.8 % Normal 11.8-14.4 [facility] Comment on above: Performed By: #### C SEN, CP ####[address] [place] [id number]) Hematocrit Auto Volume Fraction (Bld) 41.2 % Normal 36.3-47.1 [facility] Comment on above: Performed By: #### C SEN, CP ####[facility] [place] [address] Hemoglobin mass conc (Bld) 14.1 g/dL Normal 11.9-15.1 [facility] Comment on above: Performed By: #### C SEN, CP ####[address] [place] [id number] MCH Auto Entitic mass (RBC) 28.5 pg Normal 25.2-33.5 [facility] Comment on above: Performed By: #### C BC, CP ####[address] [place] [address] MCHC Auto mass conc (RBC) 34.2 g/dL Normal 28.4-34.8 [facility] Comment on above: Performed By: #### C BC, CP ####[address] [place] [address] MCV Auto Entitic volume (RBC) 83.2 fL Normal 82.6-102.9 [facility] Comment on above: Performed By: #### C BC, CP ####[address] [place] [address] NRBC Automated 0.0 per 100 WBC Normal 0.0 [facility] Comment on above: Result Comment: Perf ormed at [address] [place] [id number] Performed By: #### C BC, CP ####[address] [place] [address] Platelet mean volume Auto Entitic volume (Bld) 9.9 fL Normal 8.1-13.5 [facility] Comment on above: Performed By: #### C BC, CP ####[address] [place] [address] Platelets Auto #/vol (Bld) 230 10*3/uL Normal 138-453 [facility] Comment on above: Performed By: #### C BC, CP ####[address] [place] [address] RBC Auto #/vol (Bld) 4.95 10*6/uL Normal 3.95-5.11 [facility] Comment on above: Performed By: #### C BC, CP ####[address] [place] [address] WBC Auto #/vol (Bld) 11.8 10*3/uL Normal 4.5-13.5 [facility] Comment on above: Performed By: #### C SEN, CP ####[address] [place] [address] Comp Metabolic Profon 2017 (cont.) Normal [facility] Comment on above: Result Comment: Aver age GFR for 20-29 years old: 116 mL/min/1.73sq mChronic Kidney Disease: <60 mL/min/1.73sq mKidney failure: <15 mL/min/1.73sq meGFR calculated using average adult body mass. Additional eGFR calculator available at:http://[email or web address]/multiple_crcl_2011.htm Performed By: #### C SEN, CP ####[address] [place] [address] Albumin mass conc 4.5 g/dL Normal 3.5-5.[address] [facility] Comment on above: Performed By: #### C SEN, CP ####[address] [place] [address] Albumin/Globulin mass ratio 1.3 {ratio} Normal 1.0-2.5 [facility] Comment on above: Performed By: #### C SEN, CP ####[address] [place] [address] Alkaline Phos 81 U/L Normal 35-104 [facility] Comment on above: Performed By: #### C SEN, CP ####[address] [place] [address] ALT enzyme act/vol 23 U/L Normal 5-33 [facility] Comment on above: Performed By: #### C BC, CP ####[address] [place] [address] Anion gap 3 molar conc 13 mmol/L Normal 9-17 [facility] Comment on above: Performed By: #### C BC, CP ####[address] [place] [address] AST enzyme act/vol 23 U/L Normal <32 [facility] Comment on above: Performed By: #### C BC, CP ####[address] [place] [address] Bilirubin Ql (U) 0.23 mg/dL Low 0.3-1.2 [facility] Comment on above: Performed By: #### C BC, CP ####[address] [place] [address] BUN/CRE Ratio 17 Normal 9-20 [facility] Comment on above: Performed By: #### C BC, CP ####[address] [place] [address] Calcium mass conc 9.5 mg/dL Normal 8.6-10.[address] [facility] Comment on above: Performed By: #### C BC, CP ####[address] [place] [address] Chloride molar conc 101 mmol/L Normal 98-107 [facility] Comment on above: Performed By: #### C BC, CP ####[address] [place] [address] CO2 molar conc 23 mmol/L Normal 20-31 [facility] Comment on above: Performed By: #### C BC, CP ####[address] [place] [address] Creatinine mass conc 0.69 mg/dL Normal 0.50-0.90 [facility] Comment on above: Performed By: #### C BC, CP ####[address] [place] [address] GFR, Amer >60 Normal >60 [facility] Comment on above: Performed By: #### C BC, CP ####[address] [place] [address] GFR,non Amer >60 Normal >60 [facility] Comment on above: Performed By: #### C BC, CP ####[address] [place] [address] Glucose mass conc 99 mg/dL Normal 70-[address] [facility] Comment on above: Performed By: #### C BC, CP ####[address] [place] [address] Potassium molar conc 3.8 mmol/L Normal 3.7-5.3 [facility] Comment on above: Performed By: #### C BC, CP ####[address] [place] [address] Protein mass conc 8.0 g/dL Normal 6.4-8.[address] [facility] Comment on above: Performed By: #### C BC, CP ####[address] [place] [address] Sodium molar conc 137 mmol/L Normal 135-[address] [facility] Comment on above: Performed By: #### C BC, CP ####[address] [place] [address] Staging: Normal [facility] Comment on above: Result Comment: Stag e 1: Some kidney damage normal GFRStage 2: Mild kidney damage GFR 60-89Stage 3: Moderate kidney damage GFR 30-59Stage 4: Severe kidney damage GFR 15-29Stage 5: Severe kidney damage GFR <15ESRD - chronic treatment by dialysis or transplantPerformed at [address] [place] [address] Performed By: #### C BC, CP ####[address] [place] [address] Urea nitrogen mass conc 12 mg/dL Normal 6-20 [facility] Comment on above: Performed By: #### C BC, CP ####[address] [place] [address] HCG, ,Urineon 07-28 HCG.beta subunit ( test) Ql (U) Negative Normal NEG [facility] Comment on above: Result Comment: Spec imens with hCG levels near the threshold of the test (25 mIU/mL) may give a negative or indeterminate result. In such cases, another test should be performed with a new specimen in 48-72 hours. If early is suspected clinically in this setting, correlation with quantitative serum b-hCG level is suggested.[facility] has confirmed the use of plasma for this test. This has not been cleared or approved by the U.S. Food and Drug Administration. The FDA has determined that such clearance is not necessary.Performed at [address] [place] [address] Performed By: #### U HCG, UA ####[address] [place] [address] Urinalysis, Routineon 2017 Acetoacetic Acid,Ur Negative Normal NEG [facility] Comment on above: Performed By: #### U HCG, UA ####[address] [place] [address] Bilirubin, SemiQt,Ur Negative Normal NEG [facility] Comment on above: Performed By: #### U HCG, UA ####[address] [place] [address] Color YELLOW Normal YEL [facility] Comment on above: Performed By: #### U HCG, UA ####[address] [place] [address] Glucose,Semi-qnt,Ur Negative Normal NEG [facility] Comment on above: Performed By: #### U HCG, UA ####[address] [place] [address] Hemoglobin, Ur Negative Normal NEG [facility] Comment on above: Performed By: #### U HCG, UA ####[address] [place] [address] Leuckocyte Esterase Negative Normal NEG [facility] Comment on above: Result Comment: Perf ormed at [address] [place] [address] Performed By: #### U HCG, UA ####[address] [place] [address] Nitrite,Ur Negative Normal NEG [facility] Comment on above: Performed By: #### U HCG, UA ####[address] [place] [address] PH,Ur 6.0 Normal 5.0-9.0 [facility] Comment on above: Performed By: #### U HCG, UA ####[address] [place] [address] Protein mass conc Negative Normal NEG [facility] Comment on above: Performed By: #### U HCG, UA ####[address] [place] [address] Spec. [place],Ur 1.025 High 1.010-1.[address] [facility] Comment on above: Performed By: #### U HCG, UA ####[address] [place] [address] Turbidity CLEAR Normal CLEAR [facility] Comment on above: Performed By: #### U HCG, UA ####[address] [place] [address] Urobilinogen,Ur Normal Normal NORM [facility] Comment on above: Performed By: #### U HCG, UA ####[address] [place] [address] Comment NOT REPORTED Normal [facility] Comment on above: Performed By: #### U HCG, UA ####[address] [place] [address] Cardiacon 06-07-2016 Cholesterol mass conc 175.0 mg/dL 0-200 [address] [employer] Triglyceride mass conc 58.0 mg/dL 30-150 [employer] Hematologyon 06-07-2016 Basophils #/vol (Bld) 0.0 10*3/uL 0.0-0.1 [facility] Bas[facility]/100 WBC (Bld) 0.30 % 0.0-1.0 [employer] Eosinophils #/vol (Bld) 0.10 10*3/uL 0.0-0.5 [employer] Eosinophils/100 WBC (Bld) 1.80 % 0.0-7.0 [employer] Hematocrit Volume Fraction (Bld) 40.50 % 35.7-47.1 [employer] Hemoglobin mass conc (Bld) 13.60 g/dL 11.9-15.7 [employer] Lymphocytes #/vol (Bld) 3.40 10*3/uL 0.9-3.1 [employer] Lymphocytes/100 WBC (Bld) 41.0 % 28.0-42.0 [employer] MCH Entitic mass (RBC) 29.60 pg 23.2-33.3 [employer] MCV Entitic volume (RBC) 88.40 fL 82.0-98.4 [employer] Monocytes #/vol (Bld) 0.60 10*3/uL 0.3-1.0 [facility] [employer] Monocytes/100 WBC (Bld) 7.40 % 4.0-12.0 [facility] Neutrophils #/vol (Bld) 4.20 10*3/uL 1.8-7.9 [facility] [employer] Neutrophils/100 WBC (Bld) 49.50 % 45.6-68.4 [facility] Platelets #/vol (Bld) 225.0 10*3/uL 150-400 [facility] [employer] [facility] RBC #/vol (Bld) 4.580 10*6/uL 3.72-5.24 [facility] [employer] [facility] WBC #/vol (Bld) 8.30 10*3/uL 3.9-10.3 [facility] Metabolic Panelon 06-07-2016 Albumin mass conc 4.40 g/dL 3.7-4.5 [facility] [employer] ALP enzyme act/vol 77.0 U/L 31-155 [facility] ALT enzyme act/vol 17.0 U/L 0-50 [facility] [employer] [facility] AST enzyme act/vol 21.0 U/L 0-40 [facility] [employer] [facility] Bilirubin mass conc 0.40 mg/dL 0.0-1.0 [facility] Protein mass conc 7.40 g/dL 6.3-7.9 [facility] [employer] Otheron 06-07-2016 Albumin/Globulin mass ratio 1.5 {ratio} 1.0-2.4 [facility] [employer] [facility] Erythrocyte distribution width Ratio (RBC) 11.80 % 11.5-15.5 [facility] [employer] MCHC mass conc (RBC) 33.50 g/dL 32.0-36.0 [facility] Platelet mean volume Entitic volume (Bld) 9.0 fL 7.4-10.4 [facility] [employer] Negative [facility] [employer] Otheron 04-23-2016 Negative [place] [employer] Otheron 03-19-2016 Negative [place] [employer] Cardiacon 02-12-2016 Cholesterol mass conc 175.0 mg/dL 0-200 Bl [facility] [employer] Triglyceride mass conc 59.0 mg/dL 30-150 [facility] [employer] Hematologyon 02-12-2016 Basophils #/vol (Bld) 0.10 10*3/uL 0.0-0.1 [facility] Basophils/100 WBC (Bld) 0.90 % 0.0-1.0 [place] [employer] Eosinophils #/vol (Bld) 0.10 10*3/uL 0.0-0.5 [facility] [employer] [facility] Eosinophils/100 WBC (Bld) 1.70 % 0.0-7.0 [facility] Hematocrit Volume Fraction (Bld) 41.60 % 35.7-47.1 [facility] [employer] Hemoglobin mass conc (Bld) 14.0 g/dL 11.9-15.7 [facility] [employer] Lymphocytes #/vol (Bld) 2.30 10*3/uL 0.9-3.1 [facility] Lymphocytes/100 WBC (Bld) 36.10 % 28.0-42.0 [facility] MCH Entitic mass (RBC) 29.40 pg 23.2-33.3 [facility] MCV Entitic volume (RBC) 87.60 fL 82.0-98.4 [facility] Monocytes #/vol (Bld) 0.50 10*3/uL 0.3-1.0 [facility] Monocytes/100 WBC (Bld) 7.20 % 4.0-12.0 [facility] Neutrophils #/vol (Bld) 3.30 10*3/uL 1.8-7.9 [facility] Neutrophils/100 WBC (Bld) 54.10 % 45.6-68.4 [facility] Platelets #/vol (Bld) 180.0 10*3/uL 150-400 [facility] RBC #/vol (Bld) 4.750 10*6/uL 3.72-5.24 [facility] WBC #/vol (Bld) 6.30 10*3/uL 3.9-10.3 [facility] Metabolic Panelon 02-12-2016 Albumin mass conc 4.50 g/dL 3.7-4.5 [facility] ALP enzyme act/vol 79.0 U/L 31-155 [facility] ALT enzyme act/vol 21.0 U/L 0-50 [facility] AST enzyme act/vol 22.0 U/L 0-40 [facility] [employer] Bilirubin mass conc 0.40 mg/dL 0.0-1.0 [facility] [employer] Protein mass conc 7.0 g/dL 6.3-7.9 [facility] [employer] Otheron 02-12-2016 Albumin/Globulin mass ratio 1.8 {ratio} 1.0-2.4 [facility] [employer] Erythrocyte distribution width Ratio (RBC) 12.10 % 11.5-15.5 [facility] [employer] MCHC mass conc (RBC) 33.60 g/dL 32.0-36.0 [facility] [employer] Platelet mean volume Entitic volume (Bld) 9.70 fL 7.4-10.4 [place] [employer] Negative [facility] [employer] Vital Signs Date Time Vital Sign Value Performing Clinician Facility 02-08-2024 13:21-0400 Body height 154.9 cm [facility] [employer] Work Phone: [facility] 02-08-2024 13:21-0400 Body mass index (BMI) [Ratio] 23.05 kg/m2 Eleazar Vijaya [employer] Work Phone: [facility] 02-08-2024 13:21-0400 Body weight 55.34 kg Eleazar Vijaya DO Work Phone: [facility] 02-08-2024 13:21-0400 Diastolic blood pressure 64 mm[Hg] Eleazar Vijaya DO Work Phone: [facility] 02-08-2024 13:21-0400 Systolic blood pressure 102 mm[Hg] Eleazar Vijaya DO Work Phone: [facility] 02-02-2024 12:39-0400 Body height 154.94 cm [facility] 02-02-2024 12:39-0400 Body mass index (BMI) [Ratio] 22.4 kg/m2 [facility] 02-02-2024 12:39-0400 Body temperature 98.3 [degF] [facility] 02-02-2024 12:39-0400 Body weight 54 kg [facility] 02-02-2024 12:39-0400 Diastolic blood pressure 64 mm[Hg] [facility] 02-02-2024 12:39-0400 Heart rate 82 /min [facility] 02-02-2024 12:39-0400 Respiratory rate 16 /min [facility] 02-02-2024 12:39-0400 SaO2% (BldA) [Mass fraction] 98 % [facility] 02-02-2024 12:39-0400 Systolic blood pressure 108 mm[Hg] [facility] 01-24-2024 11:38-0400 Body height 154.94 cm [facility] 01-24-2024 11:38-0400 Body mass index (BMI) [Ratio] 22.6 kg/m2 [facility] 01-24-2024 11:38-0400 Body temperature 96.1 [degF] [facility] 01-24-2024 11:38-0400 Body weight 54.43 kg [facility] 01-24-2024 11:38-0400 Diastolic blood pressure 60 mm[Hg] [facility] 01-24-2024 11:38-0400 Heart rate 75 /min [facility] 01-24-2024 11:38-0400 SaO2% (BldA) [Mass fraction] 98 % [facility] 01-24-2024 11:38-0400 Systolic blood pressure 114 mm[Hg] [facility] 01-03-2024 11:26-0400 Body height 154.94 cm [facility] 01-03-2024 11:26-0400 Body mass index (BMI) [Ratio] 23.2 kg/m2 [facility] 01-03-2024 11:26-0400 Body temperature 97.8 [degF] [facility] 01-03-2024 11:26-0400 Body weight 55.79 kg [facility] 01-03-2024 11:26-0400 Diastolic blood pressure 68 mm[Hg] [facility] 01-03-2024 11:26-0400 Heart rate 90 /min [facility] 01-03-2024 11:26-0400 SaO2% (BldA) [Mass fraction] 98 % [facility] 01-03-2024 11:26-0400 Systolic blood pressure 110 mm[Hg] [facility] 07-21-2023 10:20-0400 Body height 154.94 cm [facility] 07-21-2023 10:20-0400 Body mass index (BMI) [Ratio] 27.8 kg/m2 [facility] 07-21-2023 10:20-0400 Body weight 66.67 kg [facility] 07-21-2023 10:20-0400 Diastolic blood pressure 78 mm[Hg] [facility] 07-21-2023 10:20-0400 Heart rate 61 /min [facility] 07-21-2023 10:20-0400 SaO2% (BldA) [Mass fraction] 99 % [facility] 07-21-2023 10:20-0400 Systolic blood pressure 112 mm[Hg] [facility] 03-26-2023 11:30-0500 Body height 154.94 cm Jodie Portillo Other [employer] [facility] [employer] Other 03-26-2023 11:30-0500 Body mass index (BMI) [Ratio] 27.96 kg/m2 Jodie Portillo Other [employer] Other 03-26-2023 11:30-0500 Body temperature 98.8 [degF] Jodie Portillo Other [employer] Other 03-26-2023 11:30-0500 Body weight 67.13 kg Jodie Portillo Other [employer] Other 03-26-2023 11:30-0500 Diastolic blood pressure 76 mm[Hg] Jodie Bandar Other [employer] Other 03-26-2023 11:30-0500 Respiratory rate 18 /min Jodie Bandar Other [employer] Other 03-26-2023 11:30-0500 SaO2% (BldA) [Mass fraction] 98 % Jodie Bandar Other [employer] Other 03-26-2023 11:30-0500 Systolic blood pressure 118 mm[Hg] Jodie Bandar Other [employer] Other 10-02-2022 12:25-0400 Body height 154.94 cm Deidra Castlemond Other [employer] Other 10-02-2022 12:25-0400 Body mass index (BMI) [Ratio] 27.43 kg/m2 Deidra Castlemond Other [employer] Other 10-02-2022 12:25-0400 Body temperature 97.7 [degF] Deidra Barbara Other [employer] Other 10-02-2022 12:25-0400 Body weight 65.86 kg Deidra Barbara Other [employer] Other 10-02-2022 12:25-0400 Respiratory rate 18 /min Deidra Castlemond Other [employer] Other 10-02-2022 12:25-0400 SaO2% (BldA) [Mass fraction] 97 % Deidra Barbara Other [facility] [employer] Other 05-21-2019 10:42-0500 BMI (Body Mass Index) 23.41 kg/m2 Lyricchon Pérez [facility] 05-21-2019 10:42-0500 Body Temperature 98.8 [degF] Lyricchon [employer] 05-21-2019 10:42-0500 Body weight 58.06 kg Lyricchon Pérez [employer] 05-21-2019 10:42-0500 BP Diastolic 68 mm[Hg] Lyricchon Pérez [employer] 05-21-2019 10:42-0500 BP Systolic 94 mm[Hg] Lyric Pérez [employer] 05-21-2019 10:42-0500 BSA (Body Surface Area) 1.59 m2 Lyricchon Pérez [employer] [facility] 05-21-2019 10:42-0500 Height 157.48 cm Lyric Pérez [employer] 05-21-2019 10:42-0500 Pulse (Heart Rate) 90 /min Lyricchon Villarreal eusebio [facility] 05-11-2019 14:48-0500 BMI (Body Mass Index) 22.95 kg/m2 Hima Rene [employer] [facility] 05-11-2019 14:48-0500 Body Temperature 98.8 [degF] Hima Rene Cherellejolene [facility] 05-11-2019 14:48-0500 Body weight 56.93 kg Hima Clemente [employer] [facility] 05-11-2019 14:48-0500 BP Diastolic 66 mm[Hg] Hima Rene Clemente [employer] [facility] 05-11-2019 14:48-0500 BP Systolic 110 mm[Hg] Hima Rene [employer] 05-11-2019 14:48-0500 BSA (Body Surface Area) 1.58 m2 Hima Rene [employer] 05-11-2019 14:48-0500 Height 157.48 cm Hima Rene Clemente [employer] 05-11-2019 14:48-0500 Pulse (Heart Rate) 72 /min Hima Cardo[facility] 04-27-2019 15:18-0500 BMI (Body Mass Index) 23.52 kg/m2 Lyric [employer] 04-27-2019 15:18-0500 Body Temperature 98.9 [degF] Lyric [employer] 04-27-2019 15:18-0500 Body weight 56.47 kg Lyric [employer] 04-27-2019 15:18-0500 BP Diastolic 60 mm[Hg] Lyric [employer] 04-27-2019 15:18-0500 BP Systolic 112 mm[Hg] Lyric Pérez [facility] 04-27-2019 15:18-0500 BSA (Body Surface Area) 1.56 m2 Lyric Pérez [facility] [facility] 04-27-2019 15:18-0500 Height 154.94 cm Lyric [employer] 04-27-2019 15:18-0500 Pulse (Heart Rate) 80 /min Lyric Kimhard Cherelle eusebio [employer] 04-09-2019 13:38-0500 BMI (Body Mass Index) 22.77 kg/m2 Lyric Pérez [employer] 04-09-2019 13:38-0500 Body Temperature 99.4 [degF] Lyric Clemente [employer] 04-09-2019 13:38-0500 Body weight 54.66 kg Lyric Pérez [employer] 04-09-2019 13:38-0500 BP Diastolic 70 mm[Hg] Lyric Pérez [facility] 04-09-2019 13:38-0500 BP Systolic 120 mm[Hg] Lyric Pérez [employer] 04-09-2019 13:38-0500 BSA (Body Surface Area) 1.53 m2 Lyric Pérez [employer] 04-09-2019 13:38-0500 Height 154.94 cm Lyric Pérez [employer] 04-09-2019 13:38-0500 Pulse (Heart Rate) 82 /min Lyric Kimhard Cherelle [employer] 02-06-2019 16:41-0400 BMI (Body Mass Index) 22.77 kg/m2 Lyric Pérez [facility] 02-06-2019 16:41-0400 Body Temperature 98.8 [degF] Lyric Rene Clemente [employer] 02-06-2019 16:41-0400 Body weight 54.66 kg Lyric Pérez [employer] 02-06-2019 16:41-0400 BP Diastolic 70 mm[Hg] Lyric Pérez [employer] 02-06-2019 16:41-0400 BP Systolic 112 mm[Hg] Lyric Pérez [employer] 10-01-2019 16:41-0400 BSA (Body Surface Area) 1.53 m2 Lyric [employer] 02-06-2019 16:41-0400 Height 154.94 cm Lyric Rene [employer] 02-06-2019 16:41-0400 Pulse (Heart Rate) 72 /min Lyric rousey [employer] 10-31-2018 16:58-0400 BMI (Body Mass Index) 23.43 kg/m2 Hima Rene [employer] 10-31-2018 16:58-0400 Body weight 56.25 kg Hima Faustinncjose elias Clemente [employer] 10-31-2018 16:58-0400 BP Diastolic 60 mm[Hg] Hima Faustinncjose elias Clemente [employer] 10-31-2018 16:58-0400 BP Systolic 112 mm[Hg] Hima Clemente [employer] 10-31-2018 16:58-0400 BSA (Body Surface Area) 1.56 m2 Hima Rnee [employer] 10-31-2018 16:58-0400 Height 154.94 cm Hima Clemente [employer] 10-31-2018 16:58-0400 Pulse (Heart Rate) 72 /min Hima Rene Nani cammy [employer] 10-31-2018 16:58-0400 Weight 56.25 kg Hima Faustinncjose elias Clemente [employer] 08-28-2018 15:49-0400 BMI (Body Mass Index) 22.67 kg/m2 Hima Rene [employer] 08-28-2018 15:49-0400 Body Temperature 98.7 [degF] Hima Faustinncjose elias And[employer] 08-28-2018 15:49-0400 Body weight 54.43 kg Hima Clemente [employer] 08-28-2018 15:49-0400 BP Diastolic 60 mm[Hg] Hima Camacho [employer] 08-28-2018 15:49-0400 BP Systolic 120 mm[Hg] Hima Clemente [employer] 08-28-2018 15:49-0400 BSA (Body Surface Area) 1.53 m2 Hima Rene [employer] 08-28-2018 15:49-0400 Height 154.94 cm Hima Clemente [employer] 08-28-2018 15:49-0400 Pulse (Heart Rate) 66 /min Hima ma [employer] 08-28-2018 15:49-0400 Weight 54.43 kg Hima Clemente [employer] 02-09-2018 12:10-0400 BMI (Body Mass Index) 23.78 kg/m2 Hima Rene [employer] 02-09-2018 12:10-0400 Body Temperature 98.1 [degF] Hima Andrade [employer] 02-09-2018 12:10-0400 Body weight 58.97 kg Hima Clemente [employer] 02-09-2018 12:10-0400 BP Diastolic 80 mm[Hg] Hima Clemente [employer] 02-09-2018 12:10-0400 BP Systolic 104 mm[Hg] Hima Clemente [employer] 02-09-2018 12:10-0400 BSA (Body Surface Area) 1.61 m2 Hima Rene [employer] 02-09-2018 12:10040 Height 157.48 cm Hima Clemente [employer] 02-09-2018 12:100400 Pulse (Heart Rate) 64 /min Hima Cardoza [employer] 02-09-2018 12:100400 Weight 58.97 kg Hima Clemente [employer] 01-11-2018 15:19-0400 BMI (Body Mass Index) 23.32 kg/m2 Hima Rene [employer] 01-11-2018 15:19-0400 Body weight 57.83 kg Hima Clemente [employer] 01-11-2018 15:19-0400 BP Diastolic 68 mm[Hg] Hima Clemente [employer] 01-11-2018 15:19-0400 BP Systolic 106 mm[Hg] Hima Clemente [employer] 01-11-2018 15:19-0400 BSA (Body Surface Area) 1.59 m2 Hima Rene [employer] 01-11-2018 15:190400 Height 157.48 cm Hima Clemente [employer] 01-11-2018 15:19-0400 Pulse (Heart Rate) 76 /min Hima Cardoza [employer] 01-11-2018 15:19-0400 Weight 57.83 kg Hima Clemente [employer] 08-01-2017 09:57-0400 BMI (Body Mass Index) 23.59 kg/m2 [place] [employer] 08-01-2017 09:57-0400 Body weight 58.51 kg Hima Clemente [employer] 08-01-2017 09:57-0400 BP Diastolic 60 mm[Hg] Hima Camacho [employer] 08-01-2017 09:57-0400 BP Systolic 94 mm[Hg] Hima Clemente [employer] 08-01-2017 09:57-0400 BSA (Body Surface Area) 1.6 m2 Hima Rene [employer] 08-01-2017 09:57-0400 Height 157.48 cm Hima Clemente [employer] 08-01-2017 09:57-0400 Pulse (Heart Rate) 80 /min Hima ma [employer] 08-01-2017 09:57-0400 Weight 58.51 kg Hima Clemente [employer] 01-13-2017 12:02-0400 BMI (Body Mass Index) 22.59 kg/m2 Hima Rene [employer] 01-13-2017 12:02-0400 Body weight 56.02 kg Hima Clemente [employer] 01-13-2017 12:02-0400 BP Diastolic 76 mm[Hg] Hima Clemente [employer] 01-13-2017 12:02-0400 BP Systolic 122 mm[Hg] Hima Clemente [employer] 01-13-2017 12:02-0400 BSA (Body Surface Area) 1.57 m2 Hima Rene [employer] 01-13-2017 12:02-0400 Height 157.48 cm Hima Rene [employer] 01-13-2017 12:02-0400 Pulse (Heart Rate) 72 /min Hima Cardoza [employer] 01-13-2017 12:02-0400 Weight 56.02 kg Hima [employer] 10-29-2016 16:57-0400 BMI (Body Mass Index) 22.13 kg/m2 Hima Rene [employer] 10-29-2016 16:57-0400 Body weight 54.89 kg Hima Rene [employer] 10-29-2016 16:57-0400 BP Diastolic 60 mm[Hg] Hima Rene [employer] 10-29-2016 16:57-0400 BP Systolic 104 mm[Hg] Hima Rene [employer] 10-29-2016 16:57-0400 BSA (Body Surface Area) 1.55 m2 Hima Rene [employer] 10-29-2016 16:57-0400 Height 157.48 cm Hima Rene [employer] 10-29-2016 16:57-0400 Pulse (Heart Rate) 68 /min Hima Cardoza [employer] 10-29-2016 16:57-0400 Weight 54.89 kg Hima Rene [employer] 01-28-2016 17:46-0400 BMI (Body Mass Index) 21.67 kg/m2 Hima [employer] 01-28-2016 17:46-0400 Body weight 53.75 kg Hima Rene [employer] 01-28-2016 17:46-0400 BP Diastolic 64 mm[Hg] Hima Camacho [employer] 01-28-2016 17:46-0400 BP Systolic 94 mm[Hg] Hima Camacho [employer] 01-28-2016 17:46-0400 BSA (Body Surface Area) 1.53 m2 Hima Rene [employer] 01-28-2016 17:46-0400 Height 157.48 cm Hima Clemente [employer] 01-28-2016 17:46-0400 Pulse (Heart Rate) 64 /min Hima ma [employer] 01-28-2016 17:46-0400 Weight 53.75 kg Hima Clemente [employer] 05-30-2015 16:50-0500 BMI (Body Mass Index) 21.22 kg/m2 Hima Rene [employer] 05-30-2015 16:50-0500 Body Temperature 98 [degF] Hima chawla [employer] 05-30-2015 16:50-0500 Body weight 52.62 kg Hima Clemente [employer] 05-30-2015 16:50-0500 BP Diastolic 64 mm[Hg] Hima Clemente [employer] 05-30-2015 16:50-0500 BP Systolic 90 mm[Hg] Hima Clemente [employer] 05-30-2015 16:50-0500 BSA (Body Surface Area) 1.52 m2 Hima Rene [employer] 05-30-2015 16:50-0500 Height 157.48 cm Hima Clemente [employer] 05-30-2015 16:50-0500 Pulse (Heart Rate) 92 /min Hima Cardoza [employer] 05-30-2015 16:50-0500 Weight 52.62 kg Hima Clemente [employer] 04-08-2015 16:01-0500 BMI (Body Mass Index) 21.28 kg/m2 Hima Rene [employer] 04-08-2015 16:01-0500 Body Temperature 98.4 [degF] Hima Andrade [employer] 04-08-2015 16:01-0500 Body weight 51.94 kg Hima Clemente [employer] 04-08-2015 16:01-0500 BP Diastolic 84 mm[Hg] Hima Clemente [employer] 04-08-2015 16:01-0500 BP Systolic 118 mm[Hg] Hima Clemente [employer] 04-08-2015 16:01-0500 BSA (Body Surface Area) 1.5 m2 Hima Rene [employer] 04-08-2015 16:01-0500 Height 156.21 cm Hima Clemente [employer] 04-08-2015 16:01-0500 Pulse (Heart Rate) 72 /min Hima Cardoza [employer] 04-08-2015 16:01-0500 Weight 51.94 kg Hima Clemente [employer] Encounters Encounter Date Encounter Type Care Provider [...] Available Start: 02-02-2024 End: 02-02-2024 Departed Referred BILINGUAL 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 ASSISTANT Jodie Portillo Work Phone: [facility] [place] Work Phone: Start: 02-02-2024 End: 02-02-2024 ambulatory Jodie Portillo [facility] Work Phone: Start: 02-02-2024 End: 02-02-2024 Patient encounter procedure [facility] Work Phone: Start: 01-24-2024 End: 01-24-2024 ambulatory [facility] Work Phone: Start: 01-24-2024 End: 01-24-2024 Patient encounter procedure [facility] Physician [facility] Work Phone: Start: 01-24-2024 End: 01-24-2024 ambulatory Susana Alonzo PA-C Facility:[facility] Start: 01-19-2024 Non-patient / Non-visit [facility] Physician [facility] Work Phone: Start: 01-03-2024 End: 01-03-2024 ambulatory [facility] Work Phone: Start: 01-03-2024 End: 01-03-2024 Patient encounter procedure [facility] Physician [facility] Work Phone: Start: 08-10-2023 End: 08-10-2023 ambulatory Susana Jayla Schlumbohm PA-C Facility:[facility] Start: 07-21-2023 End: 07-21-2023 ambulatory [facility] Work Phone: Start: 07-21-2023 End: 07-21-2023 Patient encounter procedure [facility] Physician [facility] Work Phone: Start: 06-28-2023 ambulatory Susana Jayla Schlumbohm PA-C Facility:[facility] Start: 06-27-2023 End: 06-27-2023 ambulatory Susana Jayla Schlumbohm PA-C Facility:[facility] Start: 06-22-2023 End: 06-22-2023 ambulatory Susana Jayla Schlumbohm PA-C Facility:[facility] Start: 05-17-2023 End: 05-17-2023 ambulatory Susana Jayla Schlumbohm PA-C Facility:[facility] Start: 04-21-2023 End: 04-21-2023 ambulatory Susana Jayla Schlumbohm PA-C Facility:[facility] Start: 04-20-2023 End: 04-20-2023 ambulatory Gabino Soni PA-C Facility:[facility] Start: 03-26-2023 End: 03-26-2023 ambulatory Jodie Portillo Other [employer] Other Start: 03-26-2023 Office outpatient visit 15 minutes Jodie Portillo [facility] Start: 02-24-2023 End: 02-24-2023 ambulatory Gabino Soni PA-C Facility:[facility] Start: 02-23-2023 End: 02-23-2023 ambulatory Janeth Pérez [facility] Facility:Chad Arita [facility] Start: 02-04-2023 ambulatory Gabino Soni PA-C Facility:[facility] Start: 10-02-2022 End: 10-02-2022 ambulatory Deidra Barbara Other [employer] Other Start: 10-02-2022 Office outpatient ne w 20 minutes Deidra Barbara [facility] Start: 05-21-2019 Office outpatient [...] at a health care facility Hima Silver [facility] Start: 10-31-2018 Lab [facility] [place] Other [facility] Start: 10-31-2018 Office outpatient visit 15 minutes Cheryl Dobbins Other [facility] Start: 08-28-2018 Lab [facility] [place] Other [facility] Start: 08-28-2018 Office outpatient visit 15 minutes Cheryl Dobbins Other [facility] Start: 04-20-2018 End: 04-20-2018 Emergency department patient visit TALON Jolene [facility] Start: 03-08-2018 Lab Enrique sy Other [facility] [...] 07-28-2017 Emergency department patient visit TALON L [facility] Start: 01-13-2017 Office outpatient visit 15 minutes [...] w 20 minutes Lyric Saad Pérez Other [facility] Office Procedures Date Procedure Procedure Detail Performing [...] Hima Silver Start: 05-11-2019 EBV Complete Series Hessmer adalgisa Pérez Start: 04-27-2019 Doc meds verified [...] stick/tabl et rgnt auto w/o microscopy [facility] [place] Start: 04-20-2018 Radex spine lumbosac ral 2/3 views TALON CARONE Start: 04-20-2018 Basic metabolic pane l calcium total TALON CARONE Start: 04-20-2018 Blood count complete automated TALON CARONE Start: 04-20-2018 Microscopic urinalysis TALON CARONE Start: 04-20-2018 Urine test visual color cmprsn meths TALON CARONE Start: 04-20-2018 URINE RT REFLEX TO CULTURE TALON CARONE Start: 03-08-2018 Doc meds verified w/ pt or re [facility] [place] Start: 03-08-2018 Urine test visual color cmprsn meths Hima [place] Start: 02-09-2018 Doc meds verified w/ pt or re [facility] [place] Start: 02-03-2018 Urine test visual color cmprsn meths [facility] [place] Start: 01-30-2018 Doc meds verified w/ pt or re [facility] [place] Start: 01-30-2018 Urine test visual color cmprsn meths [facility] [place] Start: 01-11-2018 Doc meds verified w/ pt [...] 06-07-2016 Cholesterol serum/wh ole blood total H[facility] [place] Start: 06-07-2016 Gonadotropin chorion ic qualitative Hima [place] Start: 06-07-2016 Hepatic function panel Hima [place] Start: 04-23-2016 Urine test visual color cmprsn meths [facility] [place] Start: 03-19-2016 Urine test visual color cmprsn meths Hima [place] Start: 02-12-2016 Assay of triglycerides H[facility] [place] Start: 02-12-2016 Blood count complete auto&auto difrntl wbc Hima [place] Start: 02-12-2016 Cholesterol serum/wh ole blood total Hima Adrian[place] Start: 02-12-2016 Gonadotropin chorion ic qualitative Hima Adrianne Start: 02-12-2016 Hepatic function panel [facility] [place] Plan of Treatment Date Care Activity Detail Author Start: 03-07-2024 ambulatory Ambulatory Facility:[facility] Start: 02-28-2024 End: 02-28-2024 Patient encounter procedure 02/28/2024 8:10 AM EDT Office Visit [facility] [address] [place] [id number] Eleazar Lilly, DO [address] [place] [address] [facility] Start: 02-08-2024 End: 02-07-2025 SURESWAB(R) ADVANCED VAGINITIS PLUS, TMA SURESWAB(R) ADVANCED VAGINITIS PLUS, TMA Pathology and Cytology Routine Pelvic pain in female Expected: 02/08/2024 (Approximate), Expires: 02/07/2025 [facility] Work Phone: Comment on above: Expected: 02/08/2024 (Approximate), Expires: 02/07/2025 Start: 02-08-2024 End: 02-07-2025 US for US PELVIS-TRANSVAG IF INDICATED Imaging Routine Pelvic pain in female Expected: 02/08/2024 (Approximate), Expires: 02/07/2025 [facility] Comment on above: Expected: 02/08/2024 (Approximate), Expires: 02/07/2025 Start: 02-08-2024 End: 02-08-2024 Patient encounter procedure 02/08/2024 1:20 PM EDT Office Visit [facility] [address] [place] [id number] Eleazar Lilly, DO [address] [place] [address] Arrived [facility] Comment on above: Arrived Start: 02-02-2024 [facility] Start: 01-08-2024 Influenza vaccination Influenza Vacc ine (#1) [facility] Start: 05-11-2019 Blood count complete auto&auto difrntl wbc CBC w diff [employer] Start: 05-11-2019 TSH Qn TSH [employer] Start: 11-02-2018 Blood count complete automated CBC & PLATELET COUNT; AUTOMATED [facility] Start: 11-02-2018 Comprehensive metabo lic panel Comprehensive metabolic panel [facility] Start: 11-02-2018 Gonadotropin chorion ic qualitative SERUM [facility] Start: 11-02-2018 Hemoglobin A1c/Hemoglobin.total mass fraction (Bld) Hgb A1c [facility] Start: 11-02-2018 Lipid panel Lipid panel [facility] Start: 11-02-2018 Thyrotropin Qn TSH (thyroid stimulating hormone) [facility] Start: 11-02-2018 Urnls dip stick/tabl et rgnt auto w/o microscopy UA [facility] Atopobium vaginae DN A [Presence] in Vaginal fluid by ELDON with probe detection [facility] Bacterial vaginosis associated bacterium 2 DNA [Presence] in Vaginal fluid by ELDON with probe detection [facility] CHLAMYDIA TRACHOMATI S (GENITO/STI) CHLAMYDIA TRACHOMATIS (GENITO/STI) Lab Routine Pelvic pain in female Ordered: 02/08/2024 [facility] Comment on above: Ordered: 02/08/2024 Estradiol (E2) [Mass/volume] in Serum or Plasma [facility] Estrogen [Mass/volum e] in Serum or Plasma [facility] Holter monitor study [facility] Lutropin [Units/volu me] in Serum or Plasma [facility] Megasphaera sp type 1 DNA [Presence] in Vaginal fluid by ELDON with probe detection [facility] Neisseria gonorrhoea e DNA [Presence] in Unspecified specimen by ELDON with probe detection Neisseria gonorrhea DNA probe, direct Lab Routine Pelvic pain in female Ordered: 02/08/2024 [facility] Comment on above: Ordered: 02/08/2024 Progesterone [Mass/volume] in Serum or Plasma [facility] XR Cervical spine 5 Views [facility] XR Thoracic and lumb ar spine Views for scoliosis [facility] Payers Date Payer Category Payer Self-pay 2022 Medicaid [employer] [employer] [place] [employer] [employer] [place] [id number] 2022-Present [address] [place] [address] [id number] 2022 Medicaid [id number] 2022 Unknown 2015 Unknown [id number] 2014 Unknown [id number] 1996 Unknown [id number] 1996 Unknown [id number] 1996 Unknown [id number] 1996 Unknown [id number] 1996 Unknown [id number] 1996 Unknown [id number] 1996 Unknown [id number] 1996 Unknown [id number] 1996 Unknown [id number] 1996 Unknown [id number] 1996 Unknown [id number] 1996 Unknown [id number] 1996 Unknown [id number] 1996 Unknown [id number] 1996 Unknown [id number] 1996 Unknown [id number] 1996 Unknown [id number] Unknown [id number] Social History Date Type Detail Facility Start: Unknown if ever smoked [facility] Start: 1 can pop/day [facility] Sex Assigned At [facility] Start: 07-21-2023 End: 02-02-2024 Tobacco smoking status [facility] Never smoked tobacco (finding) [facility] Start: 1995 Sex Assigned At Female F [facility] Tobacco smoking status [facility] Tobacco smoking consumption unknown [facility] Start: [...] nursing note reviewed. Exam conducted with a harnessmaker present. Vitals: Estimated body mass index is [...] Eleazar Lilly DO documented in this encounter [facility] Evaluation note 03-26-2023 Note Date & [...] verbalized understanding and agrees with treatment plan [facility] Other Clinical Note 02-22-2023 Note Date & [...] breast self-examination (BSE). These experts include the [employer], the [place]. Preventive Services Task Force, and the [place] [employer] Gynec[employer]. Some experts [...] This means they are not cancer. ? [id number] [employer]. [address] [place] [address], [place] [address]. All rights reserved. This information is not intended as a substitute for professional medical care. Always follow your healthcare professional's instructions. [facility] Evaluation note 10-02-2022 Note Date [...] no improvement in 2 to 3 days [facility] Other Evaluation note Note Date & Type Note Facility Evaluation note Diagnosis Onset Date Acquired scoliosis acute Daily headache acute Fatigue acute Hot flashes acute Irregular menstrual cycle ac [place] Neck pain acute [facility] Work Phone: Evaluation note Note Date & Type Note Facility Evaluation note Diagnosis Onset Date Dizziness acute Heart palpitations acute [facility] Work Phone: Evaluation note Note Date & Type Note Facility Evaluation note Diagnosis Onset Date Dizziness acute Heart palpitations acute Anxiety acute Depression [facility] Work Phone: Evaluation note Note Date & Type Note Facility Evaluation note Diagnosis Onset Date Dizziness acute Heart palpitations acute Anxiety acute Depression acute Vaginal discharge noneactive Acute effusion of both middle ears noneactive [facility] Work Phone: Evaluation note Note Date [...] content) DATE CREATED AUTHOR 04/25/2018 Hannah Avalos [facility] DATE CREATED AUTHOR AUTHOR'S ORGANIZ ATION 12/02/2019 [facility] DATE CREATED AUTHOR AUTHOR'S ORGANIZ ATION 01/27/2024 [facility] DATE CREATED AUTHOR AUTHOR'S ORGANIZ ATION 02/06/2024 [facility] DATE CREATED AUTHOR AUTHOR'S ORGANIZ ATION 02/10/2024 [facility] EPIC REASON FOR VISIT (unrecogniz ed section and content) Reason Comments [facility] Teams (unrecognized sec tion and content) Team Status: Active Member Role Status Dates Evelyn Vu APRN PSYCHODRAMATIST-C Primary Care Provider Active Team Status: Inactive Member Role Status Dates Evelyn Vu APRN PSYCHODRAMATIST-C Primary Care Provider, Attending Provider Active Start: July 21, 2023 End: July 21, 2023 Team Status: Inactive Member Role Status Dates Evelyn Vu APRN PSYCHODRAMATIST-C Primary Care Provider, Attending Provider Active Start: January 03, 2024 End: January 03, 2024 Team Status: Active Member Role Status Dates Evelyn Vu APRN PSYCHODRAMATIST-C Primary Care Provider Active Start: January 072023 Ty Aguilar DO Attending Provider Active S tart: January 19, 2024 Team Status: Inactive Member Role Status Dates Evelyn Vu APRN PSYCHODRAMATIST-C Primary Care Provider, Attending Provider Active Start: January 24, 2024 End: January 24, 2024 Team Status: Inactive Member Role Status Dates Evelyn Vu APRN PSYCHODRAMATIST-C Primary Care Provider Active Start: January 082023 End: February 02, 2024 Jodie Portillo APRN Attending Provider Active Start: February 02, 2024 End: February 02, 2024 Team Status: Inactive Member Role Status Dates Jodie Portillo APRN Attending Provider Active Start: February 02, 2024 End: February 02, 2024 Disability Services Coordinator Relationship Specialty Start Date End Date Corwin Dee DO [address] [place] [address] PCP - General Family Medicine 09/14/22 Disability Services Coordinator Relationship Specialty Start Date End Date Corwin Dee DO [address] [place] [address] PCP - General Family Medicine 09/14/22 Disability Services Coordinator Relationship Specialty Start Date End Date Corwin Dee DO [address] [place] [address] PCP - General Family Medicine 09/14/22 Goals [...] BE BASED ON THE PRIMARY CLINICAL RECORDS. [employer] provides no warranty or guarantee of the accuracy or completeness of information in this document.
[2024-02-27 18:47] VITALS: BP 140/83; PULSE 69; TEMP 36.8; O2SAT 100; BMI 22.1
[2024-02-27 19:10] LABS: Bilirubin Urine NEGATIVE (NEGATIVE); Blood Urine NEGATIVE (NEGATIVE); Clarity Urine CLEAR (CLEAR); Color Urine LT. YELLOW (YELLOW); Glucose Urine UA NEGATIVE (NEGATIVE); Ketones Urine 15 mg/dL (NEGATIVE); Leukocyte Esterase Urine NEGATIVE (NEGATIVE); Nitrite Urine NEGATIVE (NEGATIVE); Protein Urine NEGATIVE (NEG/TRACE); Specific Gravity Urine 1.025 (1.005-1.025); Urobilinogen Urine 0.2 EU/dL (0.2-1.0)
[2024-02-27 19:11] LABS: Urine Microscopic Indicated NO
[2024-02-27 19:17] LABS: HCG Qualitative Urine* POSITIVE (NEGATIVE); Internal Control Within Normal Limits
--- NOTE | 2024-02-27 19:37 | ED.ABDPAIN1 ---
HPI - Abdominal Pain General Chief Complaint: Abdominal Pain Stated Complaint: Time Seen by Provider: 02/27/24 19:27 Source: patient Mode of arrival: walk-in History of Present Illness HPI narrative: 28-year-old female presents to the emergency department for abdominal pain. She is complaining of pain in the left lower quadrant. She had an ultrasound last week and had a negative test at that time. LMP was January 24. She reports that it showed a cyst on her left ovary. She took 3 test at home and they were all positive today. She has no vaginal bleeding. The pain is mild and continuous. No fever or trauma. Related Data Allergies Allergy/AdvReac Type Severity Reaction Status Date / Time No Known Drug Allergies Allergy Verified 01/19/24 10:51 Review of Systems ROS Narrative A ten point review of systems is negative except as noted above. PFSH PFSH Social History Little interest or pleasure in doing things: not at all Feeling down, depressed, or hopeless: not at all Exam Narrative Exam Narrative: Nurses note and vital signs reviewed and patient is not hypoxic. General: The patient appears in no apparent distress. Patient is resting comfortably on cart. Skin: Warm, dry, no pallor noted. There is no rash noted. Head: Normocephalic, atraumatic Eye: Normal conjunctiva, no drainage Ears, Nose, Mouth, and Throat: oral mucosa is moist. Nares patent. Cardiovascular: Regular Rate and Rhythm Respiratory: Patient is in no distress, no accessory muscle use, lungs are clear to auscultation, no wheezing, rales or rhonchi Back: non-tender GI: She has mild tenderness of the left lower quadrant. No masses or rebound. Musculoskeletal: The patient has no evidence of calf tenderness, no pitting edema, symmetrical pulses noted bilaterally Neurological: A&O, normal speech Psychiatric: Cooperative Constitutional Vital Signs, click to edit/add: Last Vital Signs Temp 98.3 F 02/27/24 18:47 Pulse 69 02/27/24 18:47 Resp 16 02/27/24 18:47 BP 140/83 02/27/24 18:47 Pulse Ox 100 02/27/24 18:47 O2 Del Method Room Air 02/27/24 18:47 Course Vital Signs Vital signs: Vital Signs Temperature 98.3 F 02/27/24 18:47 Pulse Rate 69 02/27/24 18:47 Respiratory Rate 16 02/27/24 18:47 Blood Pressure 140/83 02/27/24 18:47 Pulse Oximetry 100 02/27/24 18:47 Oxygen Delivery Method Room Air 02/27/24 18:47 Temperature 98.3 F 02/27/24 18:47 Pulse Rate 69 02/27/24 18:47 Respiratory Rate 16 02/27/24 18:47 Blood Pressure 140/83 02/27/24 18:47 Pulse Oximetry 100 02/27/24 18:47 Oxygen Delivery Method Room Air 02/27/24 18:47 MDM - Abdominal Pain MDM Narrative Medical decision making narrative: The patient has an hCG titer of 16. At this point there is no reason to suspect an ectopic . I have spoken to Dr. Lilly and we will repeat the hCG titer on the and the . At this point there is no indication for repeat ultrasound. Findings are discussed thoroughly with the patient and she will be discharged home. On February 19 she had an ultrasound which showed a complex left ovarian cyst. On February 20 she had an immeasurable hCG titer. Differential Diagnosis Differential diagnosis: Likely abdominal pain and other (, ectopic , ovarian cyst) Lab Data Attestation: I reviewed the patient's lab results. Labs: Lab Results 02/27/24 02/27/24 Range/Units 18:55 19:45 WBC 9.7 (4.0-11.0) 10^3/uL RBC 4.52 (4.20-5.40) 10^6/uL Hgb 14.2 (12.0-16.0) g/dL Hct 38.8 (36.0-48.0) % MCV 85.8 (81.0-99.0) fL MCH 31.4 (26.7-34.0) pg MCHC 36.6 H (29.9-35.2) g/dL RDW 12.1 (11.0-15.0) % Plt Count 184 (150-450) 10^3/uL MPV 10.7 (9.5-13.5) fL Neut % (Auto) 67.5 (43.0-75.0) % Lymph % (Auto) 25.5 (20.5-60.0) % [place] % (Auto) 5.9 (1.7-12.0) % Eos % (Auto) 0.6 L (0.9-7.0) % Baso % (Auto) 0.4 (0.2-2.0) % Neut # (Auto) 6.5 (1.4-6.5) 10^3/uL Lymph # (Auto) 2.5 (1.2-3.8) 10^3/uL [place] # (Auto) 0.6 (0.3-0.8) 10^3/uL Eos # (Auto) 0.1 (0.0-0.7) 10^3/uL Baso # (Auto) 0.0 (0.0-0.1) 10^3/uL Abs Immat Gran (auto) 0.01 (0.00-0.03) 10^3/uL Imm/Tot Granulo (auto) 0.1 (0.0-0.5) % Sodium 139 (136-145) mmol/L Potassium 3.4 L (3.5-5.1) mmol/L Chloride 104 (98-107) mmol/L Carbon Dioxide 22.6 (21.0-32.0) mmol/L Anion Gap 15.8 BUN 10.0 (7.0-18.0) mg/dL Creatinine 0.79 (0.55-1.02) mg/dL Est GFR ( Amer) >60 (>=60 mL/min/1.73m^2) Est GFR (Non-Af Amer) >60 (>=60 mL/min/1.73m^2) BUN/Creatinine Ratio 12.7 Glucose 88 (74-106) mg/dL Calcium 9.4 (8.5-10.1) mg/dL HCG, Quant 16 mIU/mL Urine Color Lt. yellow (YELLOW) Urine Clarity Clear (CLEAR) Urine pH 6.0 (5.0-9.0) Ur Specific [place] 1.025 (1.005-1.025) Urine Protein Negative (NEG/TRACE) mg/dL Urine Glucose (UA) Negative (NEGATIVE) mg/dL Urine Ketones 15 A (NEGATIVE) mg/dL Urine Occult Blood Negative (NEGATIVE) Urine Nitrite Negative (NEGATIVE) Urine Bilirubin Negative (NEGATIVE) Urine Urobilinogen 0.2 (0.2-1.0) EU/dL Ur Leukocyte Esterase Negative (NEGATIVE) Urine HCG, Qual Positive A (NEGATIVE) Discharge Plan Discharge Chief Complaint: Abdominal Pain Clinical Impression: Positive blood test, Abdominal pain Patient Disposition: Home, Self-Care Time of Disposition Decision: 20:36 Condition: Good Mode of Transportation: Private Vehicle Print Language: German Instructions: Abdominal Pain (ED) Additional Instructions: Blood test to be drawn on February 28 and March 02. Go to the main lobby of the hospital and bring the slip with you. Referrals: LUDY GRAFF [Primary Care Provider] - 1 week
[2024-02-27 19:51] LABS: Basophils Percent Auto 0.4 % (0.2-2.0); Eosinophils Absolute Auto 0.1 10^3/uL (0.0-0.7); Eosinophils Percent Auto 0.6 % (0.9-7.0); Hematocrit 38.8 % (36.0-48.0); Hemoglobin 14.2 g/dL (12.0-16.0); Immature Granulocytes Abs Auto 0.01 10^3/uL (0.00-0.03); Immature Granulocytes Pct Auto 0.1 % (0.0-0.5); Lymphocytes Absolute Auto 2.5 10^3/uL (1.2-3.8); Lymphocytes Percent Auto 25.5 % (20.5-60.0); Mean Corpuscular HGB Conc 36.6 g/dL (29.9-35.2); Mean Corpuscular Hemoglobin 31.4 pg (26.7-34.0); Mean Corpuscular Volume 85.8 fL (81.0-99.0); Mean Platelet Volume 10.7 fL (9.5-13.5); Monocytes Absolute Auto 0.6 10^3/uL (0.3-0.8); Monocytes Percent Auto 5.9 % (1.7-12.0); Neutrophils Absolute Auto 6.5 10^3/uL (1.4-6.5); Neutrophils Percent Auto 67.5 % (43.0-75.0); Platelet Count 184 10^3/uL (150-450); Red Blood Count 4.52 10^6/uL (4.20-5.40); Red Cell Distribution Width 12.1 % (11.0-15.0); White Blood Count 9.7 10^3/uL (4.0-11.0)
[2024-02-27 20:15] LABS: Anion Gap 15.8; BUN Creatinine Ratio 12.7; Calcium 9.4 mg/dL (8.5-10.1); Carbon Dioxide 22.6 mmol/L (21.0-32.0); Chloride 104 mmol/L (98-107); Estimated GFR (African America >60 (>=60 mL/min/1.73m^2); Estimated GFR (Non-African Ame >60 (>=60 mL/min/1.73m^2); Glucose 88 mg/dL (74-106); Potassium 3.4 mmol/L (3.5-5.1); Sodium 139 mmol/L (136-145)
[2024-02-27 20:18] LABS: HCG Quantitative 16 mIU/mL
--- NOTE | 2024-02-27 20:44 | PC.NURSE ---
Physician at bedside after speaking on phone to Dr. Lilly and explaining situation. Dr Lilly agrees that patient does not need another ultrasound tonight and that she should have repeat blood quant levels done later this week then follow up with him. Dr. Aguilar provides this information to the patient along with an order for repeat lab draws.
== END 2024-02-27 20:49 | disposition home or self-care (01) ==
PROVIDERS: Emergency Medicine; Emergency Provider Emergency Medicine; PCP Nurse Practitioner Family
DX: R10.9 Unspecified abdominal pain (principal); Z32.01 Encounter for pregnancy test, result positive
CPT/HCPCS: 36415; 80048; 81003; 84702; 84703; 85025; 86900; 86901; 99283

== ENCOUNTER 2024-02-29 07:15 | Outpatient (RCR) | payer MEDICAID, SELFPAY ==
--- OUTSIDE RECORDS SUMMARY | 2024-02-29 07:19 | XMS_ITS | CCD ---
Author Organization [facility] Care Team Providers Care Experimental Mechanic Electrical Name Role Phone TALON VERAS Unavailable Unavailable [...] [facility] U navailable Troyjosé miguel MONTERROSON-MANAGER CLINICAL INFORMATICS, Ana Serra Attending Carley vailable Schlumbohm PA-C, [...] Gabino Portillo Primary Care Unavail able Cleemput PIGMENT GRINDER-MANAGER CLINICAL INFORMATICS, Cheryl Shields Attending Unakykirk DE PAZC, Gabino Portillo Primary Care Unavail able Schnormaohm ZANDRAC, Susana Dickerson Attending U navailable Cheri DE PAZC, Susana Dickerson Attending U vanailable Zachariah DE PAZC, Gabino Portillo Primary Care Unavail able Schluolyohm PA-C, Susana Dickerson Primary Care U navailable Schnormaohm PA-C, Susana Dickerson Attending U navailable Beto [facility], Janeth Maldonado Attending Unavail able Zachariah MARIE-C, Gabino Portillo Primary Care Unavail able Schsimran PA-C, Susana Dickerson Primary Care U navailable Troy PIGMENT GRINDER-MANAGER CLINICAL INFORMATICS, Ana Serra Attending Carley verito DE PAZC, Gabino Portillo Primary Care Unavail able Troy PIGMENT GRINDER-MANAGER CLINICAL INFORMATICS, Ana Serra Attending Carley verito DE PAZC, Gabino Portillo Primary Care Unavail able Troy PIGMENT GRINDER-MANAGER CLINICAL INFORMATICS, Ana Serra Attending Carley GELACIO Holt Attending Provider [phone] Jodie Portillo Attending Unavailable Jodie Portillo Admitting [...] 2024 12:00am sertraline 25 mg oral tablet (8 sources) Serotonin Reuptake Inhibitor Start: 01-24-2024 sertraline [...] cough Start: 05-21-2019 take 1 capsule by [facility] three times daily as needed for cough [...] or concentration deficit Onset: 01-28-2016 Chronic Other and delivery including normal (2 sources) Early stage of ; Translations: [Encounter for supervision of normal , unspecified, unspecified trimester] 02-28-2024 Episodic Other upper respiratory disease (1 source) Chronic [...] VA GINITIS (HTRX)on 02-10-2024 ATOPOBIUM VAGINAE 0.000 [facility] Healthcare ATOPOBIUM VAGINAE Not detected [facility] Healthcare BVAB 2,3 (BACTERIAL VAGINOSIS ASSOCIATED BACTERIA 2, 3); MOBILUNCUS SPP 0.000 [facility] BVAB 2,3 (BACTERIAL VAGINOSIS ASSOCIATED BACTERIA 2, 3); MOBILUNCUS SPP Not detected [facility] Healthcare ALICIA ALBICANS, PARAPSILOSIS, TROPICALIS 0.000 [facility] ALICIA ALBICANS, PARAPSILOSIS, TROPICALIS Not detected [facility] ALICIA GLABRATA 0.000 [facility] ALICIA GLABRATA Not detected [facility] ALICIA KRUSEI 0.000 [facility] ALICIA [...] S Healthcare NEISSERIA GONORRHOEAE Not detected N [facility] TRICHOMONAS VAGINALIS 0.000 [facility] TRICHOMONAS VAGINALIS Not detected N [facility] HCG ( test) Ql (U)o n 02-08-2024 Interpretation and review of laboratory results Normal [facility] Preg Test, Ur Negative [facility] Urinalysis macro (dipstick) panel (U)on 02-08-2024 Bilirubin, UA Negative Negative - 4(70) +++ mg/dL [facility] Blood, UA Negative Negative - 50 Fuad/mcL [facility] Clarity, UA Clear [facility] Color, UA Yellow [facility] Glucose, UA Negative Negative - 1999(110) ++++ mg/dL [facility] Interpretation and review of laboratory results Normal [facility] Ketones, UA Negative Negative - 160(16) ++++ mg/dL [facility] Leukocytes, UA Negative Negative - 500+++ Sandie/mcL [facility] Nitrite, UA Negative Negative - Positive [facility] pH, UA 7.5 5 - 9 [facility] Protein, UA Negative Negative - 2000(20) ++++ mg/dL [facility] Spec Grav, UA 1.020 1 - 1.03 [facility] Urobilinogen, UA 0.2 0.2 - 12 mg/dL [facility] Vaginitis Plus (VG+)on 02-01 Atopobium Vaginae Low - 0 Normal . [facility] Comment on above: Result Comment: This test was developed and its performance characteristics determined by [facility]. It has not been cleared or approved by the Food and Drug Administration. Performed By: #### V AGINITIS+ #### [facility] , BVAB2 Low - 0 Normal . [facility] Comment on above: Result Comment: This test was developed and its performance characteristics determined by [facility]. It has not been cleared or approved by the Food and Drug Administration. Performed By: #### V AGINITIS+ #### [facility] , Alicia Albicans, ELDON Positive Critically abnormal Negative [facility] Comment on above: Result Comment: This test was developed and its performance characteristics determined by [facility]. It has not been cleared or approved by the Food and Drug Administration. Performed By: #### V AGINITIS+ #### [facility] , Alicia Glabrata, ELDON Negative Normal Negative [facility] Comment on above: Result Comment: This test was developed and its performance characteristics determined by [facility]. It has not been cleared or approved by the Food and Drug Administration. PERFORMED BY: [facility] [address] [place] [address] PATHOLOGIST CORPORATE QUALITY ENGINEER IRNEE TURPIN M.D. Performed By: #### V AGINITIS+ #### [facility] , Chlamydia Trachomotis, ELDON Negative Normal Negative [facility] Comment on above: Performed By: #### V AGINITIS+ #### [facility] , Megasphaera Low - 0 Normal . [facility] Comment on above: Result Comment: [...] ELDON Negative Normal Negative [facility] Comment on above: Result Comment: Perf ormed at: =G - [facility] [address] [id number] Director School Of Nursing: Bri Keenan MD, Phone: [phone] Performed By: #### V AGINITIS+ #### [facility] , Tric Vag ELDON Negative Normal Negative [facility] Comment on above: Performed By: #### V AGINITIS+ #### [facility] , Basophils Auto (Bld) [#/Vol] on 01-19-2024 Basophils (Bld) [#/Vol] 0.0 10 3/uL 0.0-0.1 [facility] Basophils/100 WBC Auto (Bld) on 01-19-2024 Basophils/100 WBC (Bld) 0.4 % 0.2-2.0 [facility] Eosinophils/100 WBC Auto (Bl d)on 01-19-2024 Eosinophils/100 WBC (Bld) 1.0 % 0.9-7.0 [facility] Erythrocyte distribution wid th Auto (RBC) [Ratio]on 01-19-2024 Erythrocyte distribution width (RBC) [Ratio] 11.7 % 11.0-15.0 [facility] Estimated glomerular filtrat ion rate (GFR) non- Americanon 01-19-2024 GFR/1.73 sq M.predicted among non-blacks MDRD (S/P/Bld) [Vol rate/Area] mL/min/{1.73_m2} >=60 [facility] Hematocrit Auto (Bld) [Volum e fraction]on 01-19-2024 Hematocrit (Bld) [Volume fraction] 39.6 % 36.0-48.0 [facility] Hemoglobin [Mass/volume] in Bloodon 01-19-2024 Hemoglobin (Bld) [Mass/Vol] 14.3 g/dL 12.0-16.0 [facility] Laboratory - Chemistry and C hemistry - challengeon 01-19-2024 Calcium [Mass/Vol] 8.7 mg/dL 8.5-10.1 [facility] Chloride [Moles/Vol] 100 mmol/L 98-107 [facility] CO2 [Moles/Vol] 27.5 mmol/L 21.0-32.0 [facility] Creatinine [Mass/Vol] 0.88 mg/dL 0.55-1.02 [facility] GFR/1.73 sq M.predicted MDRD (S/P/Bld) [Vol rate/Area] mL/min/{1.73_m2} >=60 [facility] Glucose [Mass/Vol] 94 mg/dL 74-106 [facility] Potassium [Moles/Vol] 3.3 mmol/L Low 3.5-5.1 [facility] Sodium [Moles/Vol] 135 mmol/L Low 136-145 [facility] Urea nitrogen [Mass/Vol] 12.0 mg/dL 7.0-18.0 [facility] Urea nitrogen/Creatinine [Mass ratio] 13.6 mg/mg [facility] Laboratory - Hematology and Cell countson 01-19-2024 Immature granulocytes/100 WBC (Bld) 0.0 % 0.0-0.5 [facility] Leukocytes [#/volume] correc leonidas for nucleated erythrocytes in Blood by Automated counon 01-19-2024 WBC corrected for nucl RBC Auto (Bld) [#/Vol] 4.8 10 3/uL 4.0-11.0 [facility] Lymphocytes Auto (Bld) [#/Vo l]on 01-19-2024 Lymphocytes (Bld) [#/Vol] 1.2 10 3/uL 1.2-3.8 [facility] Lymphocytes/100 WBC Auto (Bl d)on 01-19-2024 Lymphocytes/100 WBC (Bld) 25.1 % 20.5-60.0 [facility] MCH Auto (RBC) [Entitic mass ]on 01-19-2024 MCH (RBC) [Entitic mass] 30.4 pg 26.7-34.0 [facility] MCHC Auto (RBC) [Mass/Vol]on 01-19-2024 MCHC (RBC) [Mass/Vol] 36.1 g/dL High 29.9-35.2 [facility] MCV Auto (RBC) [Entitic vol] on 01-19-2024 MCV (RBC) [Entitic vol] 84.1 fL 81.0-99.0 [facility] Monocytes Auto (Bld) [#/Vol] on 01-19-2024 Monocytes (Bld) [#/Vol] 0.6 10 3/uL 0.3-0.8 [facility] Monocytes/100 WBC Auto (Bld) on 01-19-2024 Monocytes/100 WBC (Bld) 11.6 % 1.7-12.0 [facility] Neutrophils Auto (Bld) [#/Vo l]on 01-19-2024 Neutrophils (Bld) [#/Vol] 3.0 10 3/uL 1.4-6.5 [facility] Neutrophils/100 WBC Auto (Bl d)on 01-19-2024 Neutrophils/100 WBC (Bld) 61.9 % 43.0-75.0 [facility] No Panel Informationon 01-18 Eosinophils # (Auto) 0.1 10 3/uL 0.0-0.7 [facility] Human Chorionic Gonadotropin, Qual Negative NEGATIVE [facility] Immature Granulocyte # (Auto) 0.00 10 3/uL 0.00-0.03 [facility] Platelet mean volume Auto (B ld) [Entitic vol]on 01-19-2024 Platelet mean volume (Bld) [Entitic vol] 11.2 fL 9.5-13.5 [facility] Platelets Auto (Bld) [#/Vol] on 01-19-2024 Platelets (Bld) [#/Vol] 137 10 3/uL Low 150-450 [facility] RBC Auto (Bld) [#/Vol]on RBC (Bld) [#/Vol] 4.71 10 6/uL 4.20-5.40 [facility] Serum or plasma anion gap de terminationon 01-19-2024 Anion gap [Moles/Vol] 10.8 mmol/L [facility] Choriogonadotropin.beta subu nit ( test) [Presence] in Urineon 01-03-2024 Beta HCG ( test) Ql (U) Negative [facility] Influenza virus A and B and SARS-CoV-2 (COVID-19) RNA panel - Respiratory system specon 01-03-2024 Influenza virus A and B RNA and SARS-CoV-2 (COVID-19) N gene panel ELDON+probe (Resp) Negative [facility] Laboratory - Microbiology an d Antimicrobial susceptibilityon 01-03-2024 SARS-CoV-2 (COVID-19) RNA ELDON+probe Ql (Unsp spec) Negative [facility] No Panel Informationon 01-02 POC Influenza B (ELDON) Negative [facility] No Panel InformationOrdered By: Evelyn Vu on 01-03-2024 Quick Strep (POC) [facility] Family Medicine Office/Clini c Noteon 05-17-2023 [...] weakness, visual symptoms. She works at the [employer], not using computer often besides being on [...] Avoid eating within 3 hours of bed; manager perioperative dinner; limit drinking before bed; Avoid food triggers; Avoid alcohol and caffeine (especially before bed). Raise head of bed. Call or RTO if symptoms are not improving, changing or progressing. Ordered: omeprazole, 1 caps, Oral, Daily, before a meal, # 30 caps, 3 Refill(s), [id number] Orders: venlafaxine, 2 caps, Oral, Daily, Take one capsule for at least 4 days then start taking 2 capsules once daily., # 60 caps, 3 Refill(s), [facility] Time Spent with the Pat (more content not included)... Normal [facility] .eGFRon 04-21-2023 GFR/1.73 sq M.predicted MDRD (S/P/Bld) [Vol rate/Area] mL/min/{1.73_m2} Normal >=60 [facility] Comment on above: Result Comment: [facility] have implemented the eGFR calculation [...] years Performed By: #### E GFR #### [facility] [address] [place] [address] CBC w/ Diffon 04-21-2023 Erythrocyte distribution width (RBC) [Ratio] 13.2 % Normal 11.6-14.8 [facility] Comment on above: Performed By: #### C BC #### [facility] [address] [place] [address] Hematocrit (Bld) [Volume fraction] 41.7 % Normal 36.0-46.0 [facility] Comment on above: Performed By: #### C BC #### [address] [address] Hemoglobin (Bld) [Mass/Vol] 14.4 g/dL Normal 12.0-16.0 [facility] Comment on above: Performed By: #### C BC #### [address] [address] MCH (RBC) [Entitic mass] 29.6 pg Normal 27.0-35.0 [facility] Comment on above: Performed By: #### C BC #### [address] [address] MCHC 34.4 % Normal 31.0-37.0 [facility] Comment on above: Performed By: #### C BC #### [address] [address] MCV (RBC) [Entitic vol] 85.9 fL Normal 80.0-100.0 [facility] Comment on above: Performed By: #### C BC #### [address] [address] Platelet 171 x10*3/mcL Normal 150-450 [facility] Comment on above: Performed By: #### C BC #### [address] [address] Platelet mean volume (Bld) [Entitic vol] 9.4 fL Normal 6.7-10.6 [facility] Comment on above: Performed By: #### C BC #### [address] [address] RBC 4.86 x10*6/mcL Normal 3.80-5.20 [facility] Comment on above: Performed By: #### C BC #### [address] [address] WBC 6.1 x10*3/mcL Normal 4.5-11.0 [facility] Comment on above: Performed By: #### C BC #### [address] [place] [address] CMPon 04-21-2023 Albumin [Mass/Vol] 4.3 g/dL Normal 3.2-4.9 [facility] Comment on above: Performed By: #### C OMP #### [address] [place] [address] Albumin/Globulin [Mass ratio] 1.2 {ratio} Normal 1.1-2.2 [facility] Comment on above: Performed By: #### C OMP #### [address] [address] Alk Phos 65 IU/L Normal 32-91 [facility] Comment on above: Performed By: #### C OMP #### [address] [address] ALT [Catalytic activity/Vol] 23 U/L Normal 14-54 [facility] Comment on above: Performed By: #### C OMP #### [address] [place] [address] Anion gap [Moles/Vol] 10 mmol/L Normal 7-17 [facility] Comment on above: Performed By: #### C OMP #### [address] [address] AST [Catalytic activity/Vol] 25 U/L Normal 15-41 [facility] Comment on above: Performed By: #### C OMP #### [address] [place] [address] Bili Total 0.7 mg/dL Normal 0.3-1.2 [facility] Comment on above: Performed By: #### C OMP #### [address] [address] Calcium [Mass/Vol] 9.5 mg/dL Normal 8.5-10.3 [facility] Comment on above: Performed By: #### C OMP #### [address] [address] Chloride [Moles/Vol] 109 mmol/L Normal 98-110 [facility] Comment on above: Performed By: #### C OMP #### [address] [address] CO2 [Moles/Vol] 26 mmol/L Normal 22-32 [facility] Comment on above: Performed By: #### C OMP #### [address] [address] Creatinine [Mass/Vol] 1.08 mg/dL High 0.44-1.03 [facility] Comment on above: Performed By: #### C OMP #### [address] [address] Glucose [Mass/Vol] 97 mg/dL Normal 70-99 [facility] Comment on above: Performed By: #### C OMP #### [address] [address] Potassium [Moles/Vol] 3.9 mmol/L Normal 3.4-4.8 [facility] Comment on above: Performed By: #### C OMP #### [address] [address] Protein [Mass/Vol] 7.8 g/dL Normal 6.5-8.1 [facility] Comment on above: Performed By: #### C OMP #### [address] [address] Sodium [Moles/Vol] 141 mmol/L Normal 133-142 [facility] Comment on above: Performed By: #### C OMP #### [address] [address] Urea nitrogen [Mass/Vol] 8 mg/dL Normal 8-26 [facility] Comment on above: Performed By: #### C OMP #### [address] [address] Urea nitrogen/Creatinine [Mass ratio] 7.4 mg/mg Low 10.0-20.0 [facility] Comment on above: Performed By: #### C OMP #### [address] [address] Diff Autoon 04-21-2023 Baso Absolute 0.0 x10*3/mcL Normal 0.0-0.2 [facility] Comment on above: Performed By: #### . Automated Diff #### [address] [address] Basophils/100 WBC (Bld) 0.4 % Normal 0.0-1.5 [facility] Comment on above: Performed By: #### . Automated Diff #### [address] [address] Eos Absolute 0.1 x10*3/mcL Normal 0.0-0.4 [facility] Comment on above: Performed By: #### . Automated Diff #### [address] [address] Eosinophils/100 WBC (Bld) 1.3 % Normal 0.0-5.4 [facility] Comment on above: Performed By: #### . Automated Diff #### [address] [address] Lymph Absolute 2.3 x10*3/mcL Normal 1.0-4.8 [facility] Comment on above: Performed By: #### . Automated Diff #### [address] [address] Lymphocytes/100 WBC (Bld) 37.8 % Normal 27.2-40.8 [facility] Comment on above: Performed By: #### . Automated Diff #### [address] [address] [place] Absolute 0.4 x10*3/mcL Normal 0.1-1.1 [facility] Comment on above: Performed By: #### . Automated Diff #### [address] [address] Monocytes/100 WBC (Bld) 5.8 % Normal 3.7-11.9 [facility] Comment on above: Performed By: #### . Automated Diff #### [address] [address] Neutro Absolute 3.4 x10*3/mcL Normal 1.8-7.7 [facility] Comment on above: Performed By: #### . Automated Diff #### [address] [address] Neutro Auto 54.7 % Normal 47.2-70.8 [facility] Comment on above: Performed By: #### . Automated Diff #### [address] [address] Lipid Panelon 04-21-2023 Cholesterol in LDL [Mass/Vol] 140 mg/dL High 0-99 [facility] Comment on above: Result Comment: The equation being used in this calculation is LDL = (Chol - HDL) - (Trig / 5) The optimal value of LDL for individual patients may vary. The patient's history of Artherosclerosis and other cardiac risk factors should be considered. Performed By: #### L CM #### [address] [address] Cardiac Risk 4.4 Normal [facility] Comment on above: Result Comment: Men Women 1/2 Average 3.43 3.27 Average 4.97 4.44 2x Average 9.55 7.05 3x Average 23.99 11.04 Performed By: #### L CM #### [address] [address] Cholesterol [Mass/Vol] 198 mg/dL Normal 25-199 [facility] Comment on above: Result Comment: 0 - 17 years of age: Desirable 0-170 Borderline High 170-199 High >=200 18 years and older: Acceptable <200 Borderline High 200-239 High >=240 Performed By: #### L CM #### [address] [address] Cholesterol in HDL [Mass/Vol] 45.2 mg/dL Normal 40.0-60.0 [facility] Comment on above: Performed By: #### L CM #### [address] [address] Cholesterol in VLDL [Mass/Vol] 13 mg/dL Normal 8-39 [facility] Comment on above: Performed By: #### L CM #### [facility] [address] [place] [address] Triglyceride [Mass/Vol] 64 mg/dL Normal [facility] Comment on above: Result Comment: 0 - 17 years of age: Trig 90 - 129 Borderline High Trig => 130 High 18 years and older: Trig 150 - 199 Borderline High Trig 200 - 499 High Trig =>500 Very High Performed By: #### L CM #### [facility] [address] [place] [address] Family Medicine Office/Clini c Noteon 04-20-2023 Family Medicine Office/Clinic Note Chief Complaint Wellness History of Present Illness Patient is a 27-year-old female who presents the office today for a work physical for [employer]. 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 She works at the [employer], not using computer often besides being on [...] Historical Pr (more content not included)... 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 Last pap negative 02/18/2022. No gardasil [...] Lifetime: 5 Comments 02/24/23 11:26:00 Annual exam. [id number] two year old daughter. In monogamous relationship, declines STI screening. GC/CT negative 04/2022. States no concerns today. Still considering Paragard IUD, has code sheet and pamphlet from prev. discussion. Denies any family hx of breast, ovarian or uterine cancer. Working part-time at the [employer]. Walks for exercise. Review of [...] [] I (more content not included)... Normal [facility] Quick Strepon 10-02-2022 S. pyogenes Org specific cx Ql (Throat) Negative [facility] Other Quick Strep [facility] Other COVID19(IDNOW)on 11-30-2019 COVID19(IDNOW) NOT DETECTED Normal NOT DETECTED [facility] Comment on above: Result Comment: Nega tive results do not preclude SARS-CoV-2 infection and should not be used as the sole basis for treatiment or other patient management. ENHANCED CONTACT, AND DROPLET ISOLATION IS REQUIRED FOR INPATIENTS WITH SARS-CoV-2. Performed By: #### C OVID19(IDNOW) #### [place] [id number] [place] [address] Age at specimen collection = Normal [facility] Comment on above: Performed By: #### C OVID19(IDNOW) #### [facility] [address] [place] [address] Hematologyon 05-11-2019 Basophils (Bld) [#/Vol] 0.0 10*3/uL 0.0-0.1 [facility] Basophils/100 WBC (Bld) 0.40 % 0.0-1.0 [facility] Eosinophils (Bld) [#/Vol] 0.10 10*3/uL 0.0-0.5 [facility] Eosinophils/100 WBC (Bld) 1.30 % 0.0-7.0 [facility] Hematocrit (Bld) [Volume fraction] 41.30 % 35.7-47.1 [facility] Hemoglobin (Bld) [Mass/Vol] 14.10 g/dL 11.9-15.7 [facility] Lymphocytes (Bld) [#/Vol] 2.20 10*3/uL 0.9-3.1 [facility] Lymphocytes/100 WBC (Bld) 29.30 % 15.0-46.0 [facility] MCH (RBC) [Entitic mass] 29.90 pg 23.2-33.3 [facility] MCV (RBC) [Entitic vol] 87.50 fL 83.4-101.4 [facility] Monocytes (Bld) [#/Vol] 0.60 10*3/uL 0.3-1.0 [facility] Monocytes/100 WBC (Bld) 8.60 % 4.0-12.0 [facility] Neutrophils (Bld) [#/Vol] 4.50 10*3/uL 1.8-7.9 [facility] Neutrophils/100 WBC (Bld) 60.0 % 43.0-76.0 [facility] Platelets (Bld) [#/Vol] 160.0 10*3/uL 150-400 [facility] RBC (Bld) [#/Vol] 4.720 10*6/uL 3.72-5.24 [facility] WBC (Bld) [#/Vol] 7.40 10*3/uL 3.9-10.3 [facility] Otheron 05-11-2019 Erythrocyte distribution width (RBC) [Ratio] 12.10 % 11.5-15.5 [facility] [employer] [facility] Immature granulocytes (Bld) [#/Vol] 0.030 10*3/uL 0.00-0.06 [facility] Immature granulocytes/100 WBC (Bld) 0.40 % 0.0-0.5 [facility] [employer] [facility] MCHC (RBC) [Mass/Vol] 34.10 g/dL 32.0-36.0 [facility] [employer] [facility] Platelet mean volume (Bld) [Entitic vol] 11.10 fL 8.3-11.[address] [facility] [employer] [facility] COMMENT [employer] [facility] <9.0 0.0-8.[address] [facility] [employer] [facility] 303.0 0.0-17.9 [facility] <36.0 0.0-35.9 [facility] 38.9 0.0-17.9 [facility] Thyroidon 05-11-2019 TSH Qn 1.96 m[IU]/L 0.50-4.00 [facility] Basic Metabolic Profon 04-20 (cont.) Normal [facility] Comment on above: Result Comment: Aver age GFR for 20-29 years old: 116 mL/min/1.73sq mChronic Kidney Disease: <60 mL/min/1.73sq mKidney failure: <15 mL/min/1.73sq meGFR calculated using average adult body mass. Additional eGFR calculator available at:http://www.Tachyus/multiple_crcl_2012.htm Performed By: #### B JOSEPH, CBC ####[address] [place] [address] Anion gap 3 molar conc 11 mmol/L Normal 9-17 [facility] Comment on above: Performed By: #### B JOSEPH, CBC ####[address] [place] [address] BUN/CRE Ratio 18 Normal 9-20 [facility] Comment on above: Performed By: #### B MP, CBC ####[address] [place] [address] Calcium mass conc 9.2 mg/dL Normal 8.6-10.4 [facility] Comment on above: Performed By: #### B MP, CBC ####[address] [place] [address] Chloride molar conc 102 mmol/L Normal 98-107 [facility] Comment on above: Performed By: #### B MP, CBC ####[address] [place] [address] CO2 molar conc 26 mmol/L Normal 20-31 [facility] Comment on above: Performed By: #### B MP, CBC ####[address] [place] [address] Creatinine mass conc 0.65 mg/dL Normal 0.50-0.90 [facility] Comment on above: Performed By: #### B MP, CBC ####[address] [place] [address] GFR, Amer >60 Normal >60 [facility] Comment on above: Performed By: #### B MP, CBC ####[address] [place] [address] GFR,non Amer >60 Normal >60 [facility] Comment on above: Performed By: #### B MP, CBC ####[address] [place] [address] Glucose mass conc 89 mg/dL Normal 70-99 [facility] Comment on above: Performed By: #### B MP, CBC ####[address] [place] [address] Potassium molar conc 3.8 mmol/L Normal 3.7-5.3 [facility] Comment on above: Performed By: #### B MP, CBC ####[address] [place] [address] Sodium molar conc 139 mmol/L Normal 135-144 [facility] Comment on above: Performed By: #### B MP, CBC ####[address] [place] [address] Staging: Normal [facility] Comment on above: Result Comment: Stag e 1: Some kidney damage normal GFRStage 2: Mild kidney damage GFR 60-89Stage 3: Moderate kidney damage GFR 30-59Stage 4: Severe kidney damage GFR 15-29Stage 5: Severe kidney damage GFR <15ESRD - chronic treatment by dialysis or transplant Performed By: #### B MP, CBC ####[address] [place] [address] Urea nitrogen mass conc 12 mg/dL Normal 6-20 [facility] Comment on above: Performed By: #### B MP, CBC ####[address] [place] [address] CBCon 04-20-2018 Erythrocyte distribution width Auto Ratio (RBC) 12.1 % Normal 11.8-14.4 [facility] Comment on above: Performed By: #### B MP, CBC ####[address] , [facility] Hematocrit Auto Volume Fraction (Bld) 42.6 % Normal 36.3-47.1 [facility] Comment on above: Performed By: #### B MP, CBC ####[address] [place] [address] Hemoglobin mass conc (Bld) 14.7 g/dL Normal 11.9-15.1 [facility] Comment on above: Performed By: #### B MP, CBC ####[address] [place] [address] MCH Auto Entitic mass (RBC) 30.2 pg Normal 25.2-33.5 [facility] Comment on above: Performed By: #### B MP, CBC ####[address] [place] [address] MCHC Auto mass conc (RBC) 34.5 g/dL Normal 28.4-34.8 [facility] Comment on above: Performed By: #### B MP, CBC ####[address] [place] [address] MCV Auto Entitic volume (RBC) 87.7 fL Normal 82.6-102.9 [facility] Comment on above: Performed By: #### B MP, CBC ####[address] [place] [address] NRBC Automated 0.0 per 100 WBC Normal 0.0 [facility] Comment on above: Performed By: #### B MP, CBC ####[address] [place] [address] Platelet mean volume Auto Entitic volume (Bld) 10.8 fL Normal 8.1-13.5 [facility] Comment on above: Performed By: #### B MP, CBC ####[address] [place] [address] Platelets Auto #/vol (Bld) 142 10*3/uL Normal 138-453 [facility] Comment on above: Performed By: #### B MP, CBC ####[address] [place] [address] RBC Auto #/vol (Bld) 4.86 10*6/uL Normal 3.95-5.11 [facility] Comment on above: Performed By: #### B MP, CBC ####[address] [place] [address] WBC Auto #/vol (Bld) 6.2 10*3/uL Normal 4.5-13.5 [facility] Comment on above: Performed By: #### B MP, CBC ####[address] [place] [address] HCG, ,Urineon 04-20 HCG.beta subunit ( test) Ql (U) Negative Normal NEG [facility] Comment on above: Result Comment: Spec imens with hCG levels near the threshold of the test (25 mIU/mL) may give a negative or indeterminate result. In such cases, another test should be performed with a new specimen in 48-72 hours. If early is suspected clinically in this setting, correlation with quantitative serum b-hCG level is suggested.[employer] has confirmed the use of plasma for this test. This has not been cleared or approved by the U.S. Food and Drug Administration. The FDA has determined that such clearance is not necessary. Performed By: #### U HCG ####[address] [place] [address] UA w/Reflex Cultureon 2017 Acetoacetic Acid,Ur Negative Normal NEG [facility] Comment on above: Performed By: #### U AX, UMICAO ####[address] [place] [address] Bilirubin, SemiQt,Ur Negative Normal NEG [facility] Comment on above: Performed By: #### U AX, UMICAO ####[address] [place] [address] Color YELLOW Normal YEL [facility] Comment on above: Performed By: #### U AX, UMICAO ####[address] [place] [address] Glucose,Semi-qnt,Ur Negative Normal [facility] Comment on above: Performed By: #### U AX, UMICAO ####[address] [place] [address] Hemoglobin, Ur Negative Normal NEG [facility] in [facility] Comment on above: Performed By: #### U AX, UMICAO ####[address] [place] [address] Leuckocyte Esterase Negative Normal [facility] Comment on above: Performed By: #### U AX, UMICAO ####[address] [place] [address] Nitrite,Ur Negative Normal [facility] Comment on above: Performed By: #### U AX, UMICAO ####[address] [place] [address] PH,Ur 6.0 Normal 5.0-9.0 [facility] Comment on above: Performed By: #### U AX, UMICAO ####[address] [place] [address] Protein, Semi-qnt,Ur Negative Normal NEG [facility] Comment on above: Performed By: #### U AX, UMICAO ####[address] [place] [address] Spec. Steele,Ur 1.025 High 1.010-1.020 [facility] Comment on above: Performed By: #### U AX, UMICAO ####[address] [place] [address] Turbidity CLEAR Normal CLEAR [facility] Comment on above: Performed By: #### U AX, UMICAO ####[address] [place] [address] Urobilinogen,Ur Normal Normal NORM [facility] Comment on above: Performed By: #### U AX, UMICAO ####[address] [place] [address] Comment NOT REPORTED Normal [facility] Comment on above: Performed By: #### U AX, UMICAO ####[address] [place] [address] Urinalysis,Microon 8 ----- Normal [facility] Comment on above: Performed By: #### U AX, UMICAO ####[address] [place] [address] Bacteria 1+ Abnormal NONE [facility] Comment on above: Performed By: #### U AX, UMICAO ####[address] [place] [address] Epithelial cells 2 TO 5 Normal 0-25 [facility] Comment on above: Performed By: #### U AX, UMICAO ####[address] [place] [address] RBC Test strip #/vol (U) None Normal 0-2 [facility] Comment on above: Performed By: #### U AX, UMICAO ####[address] [place] [address] Urine WBC's 0 TO 2 Normal 0-5 [facility] Comment on above: Performed By: #### U AX, UMICAO ####[address] [place] [address] Amorphous Sediment NOT REPORTED Normal NONE [facility] Comment on above: Performed By: #### U AX, UMICAO ####[address] [place] [address] Casts NOT REPORTED Normal [facility] Comment on above: Performed By: #### U AX, UMICAO ####[address] [place] [address] Crystals NOT REPORTED Normal NONE [facility] Comment on above: Performed By: #### U AX, UMICAO ####[address] [place] [address] Epithelial, Renal NOT REPORTED Normal 0 [facility] Comment on above: Performed By: #### U AX, UMICAO ####[address] [place] [address] Mucus Strands NOT REPORTED Normal NONE [facility] Comment on above: Performed By: #### U AX, UMICAO ####[address] [place] [address] Other Observations NOT REPORTED [facility] on above: Performed By: #### U AX, UMICAO ####[address] [place] [address] Trichomonas NOT REPORTED Normal NONE [facility] Comment on above: Performed By: #### U AX, UMICAO ####[address] [place] [address] Yeast NOT REPORTED Normal NONE [facility] Comment on above: Performed By: #### U CADEN CULVER ####[address] [place] [address] XR LUMBAR SPINE (2-3 VIEWS)o n [...] small bowel loops.Interpreted by:RIVER Jassoigned by:Phil Messer MD04/20/18Final result Normal [facility] Otheron 03-08-2018 Negative [facility] Otheron 02-03-2018 Negative [facility] Otheron 01-30-2018 Negative [facility] Cardiacon 12-28-2017 Cholesterol [Mass/Vol] 156.0 mg/dL 0-200 [facility] Cholesterol in HDL [Mass/Vol] 54.0 mg/dL 50-100 [facility] Cholesterol in LDL [Mass/Vol] 79.0 mg/dL 0-130 [facility] Triglyceride [Mass/Vol] 116.0 mg/dL 30-150 [facility] Metabolic Panelon 12-28-2017 Albumin [Mass/Vol] 4.70 g/dL 3.7-4.5 [facility] ALP [Catalytic activity/Vol] 83.0 U/L 31-155 [facility] [employer] ALT [Catalytic activity/Vol] 15.0 U/L 0-50 [facility] [employer] AST [Catalytic activity/Vol] 19.0 U/L 0-40 [facility] Bilirubin [Mass/Vol] 0.70 mg/dL 0.0-1.0 [facility] [employer] Protein [Mass/Vol] 7.80 g/dL 6.3-7.9 [facility] [employer] Otheron 12-28-2017 Albumin/Globulin [Mass ratio] 1.5 {ratio} 1.0-2.4 [facility] Cholesterol in VLDL [Mass/Vol] 23.0 mg/dL 0-39 [facility] Cholesterol.total/Cho lesterol in HDL [Mass ratio] 3 {ratio} [employer] Negative [facility] CBCon 07-28-2017 Erythrocyte distribution width Auto Ratio (RBC) 11.8 % Normal 11.8-14.4 [facility] Comment on above: Performed By: #### C SEN, CP ####[address] [place] [address] Hematocrit Auto Volume Fraction (Bld) 41.2 % Normal 36.3-47.1 [facility] Comment on above: Performed By: #### C SEN, CP ####[address] [place] [address] Hemoglobin mass conc (Bld) 14.1 g/dL Normal 11.9-15.1 [facility] Comment on above: Performed By: #### C SEN, CP ####[address] [place] [address] MCH Auto Entitic mass (RBC) 28.5 pg Normal 25.2-33.5 [facility] Comment on above: Performed By: #### C BC, CP ####[address] [place] [address] MCHC Auto mass conc (RBC) 34.2 g/dL Normal 28.4-34.8 [facility] Comment on above: Performed By: #### C BC, CP ####[address] [place] [address] MCV Auto Entitic volume (RBC) 83.2 fL Normal 82.6-102.9 [facility] Comment on above: Performed By: #### C BC, CP ####[address] [place] [address] NRBC Automated 0.0 per 100 WBC Normal 0.0 [facility] Comment on above: Result Comment: Perf ormed at [address] [place] [address] Performed By: #### C SEN, CP ####[address] [place] [address] Platelet mean volume Auto Entitic volume (Bld) 9.9 fL Normal 8.1-13.5 [facility] Comment on above: Performed By: #### C BC, CP ####[address] [place] [address] Platelets Auto #/vol (Bld) 230 10*3/uL Normal 138-453 [facility] Comment on above: Performed By: #### C BC, CP ####[address] [place] [address] RBC Auto #/vol (Bld) 4.95 10*6/uL Normal 3.95-5.11 [facility] Comment on above: Performed By: #### C BC, CP ####[address] [place] [address] WBC Auto #/vol (Bld) 11.8 10*3/uL Normal 4.5-13.5 [facility] Comment on above: Performed By: #### C BC, CP ####[address] [place] [address] Comp Metabolic Profon 2017 (cont.) Normal [facility] Comment on above: Result Comment: Aver age GFR for 20-29 years old: 116 mL/min/1.73sq mChronic Kidney Disease: <60 mL/min/1.73sq mKidney failure: <15 mL/min/1.73sq meGFR calculated using average adult body mass. Additional eGFR calculator available at:http://[email or web address]/multiple_crcl_2011.htm Performed By: #### C BC, CP ####[address] [place] [address] Albumin mass conc 4.5 g/dL Normal 3.5-5.2 [facility] Comment on above: Performed By: #### C SEN, CP ####[address] [place] [address] Albumin/Globulin mass ratio 1.3 {ratio} Normal 1.0-2.5 [facility] Comment on above: Performed By: #### C BC, CP ####[address] [place] [address] Alkaline Phos 81 U/L Normal 35-104 [facility] Comment on above: Performed By: #### C BC, CP ####[address] [place] [address] ALT enzyme act/vol 23 U/L Normal 5-33 [facility] Comment on above: Performed By: #### C BC, CP ####[address] [place] [address] Anion gap 3 molar conc 13 mmol/L Normal 9-17 [facility] Comment on above: Performed By: #### C BC, CP ####[address] [place] [address] AST enzyme act/vol 23 U/L Normal <32 [facility] Comment on above: Performed By: #### C BC, CP ####[address] [place] [address] Bilirubin Ql (U) 0.23 mg/dL Low 0.3-1.2 [facility] Comment on above: Performed By: #### C BC, CP ####[address] [place] [address] BUN/CRE Ratio 17 Normal 9-20 [facility] Comment on above: Performed By: #### C BC, CP ####[address] [place] [address] Calcium mass conc 9.5 mg/dL Normal 8.6-10.4 [facility] Comment on above: Performed By: #### C BC, CP ####[address] [place] [address] Chloride molar conc 101 mmol/L Normal 98-107 [facility] Comment on above: Performed By: #### C BC, CP ####[address] [place] [address] CO2 molar conc 23 mmol/L Normal 20-31 [facility] Comment on above: Performed By: #### C BC, CP ####[address] [place] [address] Creatinine mass conc 0.69 mg/dL Normal 0.50-0.90 [facility] Comment on above: Performed By: #### C BC, CP ####[address] [place] [address] GFR, Amer >60 Normal >60 [facility] Comment on above: Performed By: #### C BC, CP ####[address] [place] [address] GFR,non Amer >60 Normal >60 [facility] Comment on above: Performed By: #### C BC, CP ####[address] [place] [address] Glucose mass conc 99 mg/dL Normal 70-99 [facility] Comment on above: Performed By: #### C BC, CP ####[address] [place] [address] Potassium molar conc 3.8 mmol/L Normal 3.7-5.3 [facility] Comment on above: Performed By: #### C BC, CP ####[address] [place] [address] Protein mass conc 8.0 g/dL Normal 6.4-8.3 [facility] Comment on above: Performed By: #### C BC, CP ####[address] [place] [address] Sodium molar conc 137 mmol/L Normal 135-144 [facility] Comment on above: Performed By: #### C BC, CP ####[address] [place] [address] Staging: Normal [facility] Comment on above: Result Comment: Stag e 1: Some kidney damage normal GFRStage 2: Mild kidney damage GFR 60-89Stage 3: Moderate kidney damage GFR 30-59Stage 4: Severe kidney damage GFR 15-29Stage 5: Severe kidney damage GFR <15ESRD - chronic treatment by dialysis or transplantPerformed at [address] [place] [address] Performed By: #### C BC, CP ####[address] , [place] [address] Urea nitrogen mass conc 12 mg/dL Normal 6-20 [facility] Comment on above: Performed By: #### C BC, CP ####[address] [place] [address] HCG, ,Urineon 07-28 HCG.beta subunit ( test) Ql (U) Negative Normal NEG [facility] Comment on above: Result Comment: Spec imens with hCG levels near the threshold of the test (25 mIU/mL) may give a negative or indeterminate result. In such cases, another test should be performed with a new specimen in 48-72 hours. If early is suspected clinically in this setting, correlation with quantitative serum b-hCG level is suggested.[facility] has confirmed the use of plasma for this test. This has not been cleared or approved by the U.S. Food and Drug Administration. The FDA has determined that such clearance is not necessary.Performed at [address] [place] [address] Performed By: #### U HCG, UA ####[address] [place] [address] Urinalysis, Routineon 2017 Acetoacetic Acid,Ur Negative Normal NEG [facility] Comment on above: Performed By: #### U HCG, UA ####[address] [place] [address] Bilirubin, SemiQt,Ur Negative Normal NEG [facility] Comment on above: Performed By: #### U HCG, UA ####[address] [place] [address] Color YELLOW Normal YEL [facility] Comment on above: Performed By: #### U HCG, UA ####[address] [place] [address] Glucose,Semi-qnt,Ur Negative Normal NEG [facility] Comment on above: Performed By: #### U HCG, UA ####[address] [place] [address] Hemoglobin, Ur Negative Normal NEG [facility] Comment on above: Performed By: #### U HCG, UA ####[address] [place] [address] Leuckocyte Esterase Negative Normal NEG [facility] Comment on above: Result Comment: Perf ormed at [address] [place] [address] Performed By: #### U HCG, UA ####[address] [place] [address] Nitrite,Ur Negative Normal NEG [facility] Comment on above: Performed By: #### U HCG, UA ####[address] [place] [address] PH,Ur 6.0 Normal 5.0-9.0 [facility] Comment on above: Performed By: #### U HCG, UA ####[address] [place] [address] Protein mass conc Negative Normal NEG [facility] Comment on above: Performed By: #### U HCG, UA ####[address] [place] [address] Spec. Steele,Ur 1.025 High 1.010-1.020 [facility] Comment on above: Performed By: #### U HCG, UA ####[address] [place] [address] Turbidity CLEAR Normal CLEAR [facility] Comment on above: Performed By: #### U HCG, UA ####[address] [place] [address] Urobilinogen,Ur Normal Normal NORM [facility] Comment on above: Performed By: #### U HCG, UA ####[address] [place] [address] Comment NOT REPORTED Normal [facility] Comment on above: Performed By: #### U HCG, UA ####[address] [place] [address] Cardiacon 06-07-2016 Cholesterol mass conc 175.0 mg/dL 0-200 [facility] Triglyceride mass conc 58.0 mg/dL 30-150 [facility] Hematologyon 06-07-2016 Basophils #/vol (Bld) 0.0 10*3/uL 0.0-0.1 [facility] Basophils/100 WBC (Bld) 0.30 % 0.0-1.0 [facility] Eosinophils #/vol (Bld) 0.10 10*3/uL 0.0-0.5 [facility] Eosinophils/100 WBC (Bld) 1.80 % 0.0-7.0 [facility] Hematocrit Volume Fraction (Bld) 40.50 % 35.7-47.1 [facility] Hemoglobin mass conc (Bld) 13.60 g/dL 11.9-15.7 [facility] Lymphocytes #/vol (Bld) 3.40 10*3/uL 0.9-3.1 [facility] Lymphocytes/100 WBC (Bld) 41.0 % 28.0-42.0 [facility] MCH Entitic mass (RBC) 29.60 pg 23.2-33.3 [facility] MCV Entitic volume (RBC) 88.40 fL 82.0-98.4 [facility] Monocytes #/vol (Bld) 0.60 10*3/uL 0.3-1.[address] [facility] [employer] Monocytes/100 WBC (Bld) 7.40 % 4.0-12.0 [facility] [employer] Neutrophils #/vol (Bld) 4.20 10*3/uL 1.8-7.9 [facility] [employer] Neutrophils/100 WBC (Bld) 49.50 % 45.6-68.4 [facility] [employer] Platelets #/vol (Bld) 225.0 10*3/uL 150-400 [facility] [employer] [facility] RBC #/vol (Bld) 4.580 10*6/uL 3.72-5.24 [facility] [employer] WBC #/vol (Bld) 8.30 10*3/uL 3.9-10.3 Pending sale to [facility] [employer] Metabolic Panelon 06-07-2016 Albumin mass conc 4.40 g/dL 3.7-4.5 Pending sale to [facility] [employer] ALP enzyme act/vol 77.0 U/L 31-155 [facility] [employer] ALT enzyme act/vol 17.0 U/L 0-50 [facility] [employer] AST enzyme act/vol 21.0 U/L 0-40 [facility] [employer] Bilirubin mass conc 0.40 mg/dL 0.0-1.0 [facility] [employer] Protein mass conc 7.40 g/dL 6.3-7.9 Pending sale to [facility] [employer] Otheron 06-07-2016 Albumin/Globulin mass ratio 1.5 {ratio} 1.0-2.4 [employer] Erythrocyte distribution width Ratio (RBC) 11.80 % 11.5-15.5 [facility] [employer] MCHC mass conc (RBC) 33.50 g/dL 32.0-36.0 [facility] [employer] Platelet mean volume Entitic volume (Bld) 9.0 fL 7.4-10.4 [facility] [employer] Negative [employer] Otheron 04-23-2016 Negative [facility] Otheron 03-19-2016 Negative [facility] Cardiacon 02-12-2016 Cholesterol mass conc 175.0 mg/dL 0-200 [facility] [employer] Triglyceride mass conc 59.0 mg/dL 30-150 [facility] [employer] Hematologyon 02-12-2016 Basophils #/vol (Bld) 0.10 10*3/uL 0.0-0.1 [facility] Basophils/100 WBC (Bld) 0.90 % 0.0-1.0 [employer] Eosinophils #/vol (Bld) 0.10 10*3/uL 0.0-0.5 [facility] [employer] Eosinophils/100 WBC (Bld) 1.70 % 0.0-7.0 [employer] Hematocrit Volume Fraction (Bld) 41.60 % 35.7-47.1 [facility] Hemoglobin mass conc (Bld) 14.0 g/dL 11.9-15.7 [facility] Lymphocytes #/vol (Bld) 2.30 10*3/uL 0.9-3.1 [facility] [employer] [facility] [employer] Lymphocytes/100 WBC (Bld) 36.10 % 28.0-42.0 [facility] [employer] [facility] MCH Entitic mass (RBC) 29.40 pg 23.2-33.3 [facility] [employer] MCV Entitic volume (RBC) 87.60 fL 82.0-98.4 [facility] [employer] [facility] Monocytes #/vol (Bld) 0.50 10*3/uL 0.3-1.[address] [facility] [employer] [facility] Monocytes/100 WBC (Bld) 7.20 % 4.0-12.0 [facility] [employer] [facility] Neutrophils #/vol (Bld) 3.30 10*3/uL 1.8-7.9 [facility] [employer] [facility] [employer] Neutrophils/100 WBC (Bld) 54.10 % 45.6-68.4 [facility] [employer] [facility] Platelets #/vol (Bld) 180.0 10*3/uL 150-400 [facility] [employer] [facility] RBC #/vol (Bld) 4.750 10*6/uL 3.72-5.24 [facility] [employer] [facility] WBC #/vol (Bld) 6.30 10*3/uL 3.9-10.3 [facility] [employer] Metabolic Panelon 02-12-2016 Albumin mass conc 4.50 g/dL 3.7-4.5 [facility] [employer] ALP enzyme act/vol 79.0 U/L 31-155 [facility] [employer] ALT enzyme act/vol 21.0 U/L 0-50 [facility] [employer] AST enzyme act/vol 22.0 U/L 0-40 [facility] [employer] Bilirubin mass conc 0.40 mg/dL 0.0-1.0 [facility] [employer] Protein mass conc 7.0 g/dL 6.3-7.9 [facility] [employer] Otheron 02-12-2016 Albumin/Globulin mass ratio 1.8 {ratio} 1.0-2.4 [facility] [employer] Erythrocyte distribution width Ratio (RBC) 12.10 % 11.5-15.5 [facility] [employer] MCHC mass conc (RBC) 33.60 g/dL 32.0-36.0 [facility] [employer] Platelet mean volume Entitic volume (Bld) 9.70 fL 7.4-10.4 [facility] [employer] Negative [facility] [employer] Vital Signs Date Time Vital Sign Value Performing Clinician Facility 02-08-2024 13:21-0400 Body height 154.9 cm [employer] Work Phone: [facility] 02-08-2024 13:21-0400 Body mass index (BMI) [Ratio] 23.05 kg/m2 [employer] Work Phone: [facility] [employer] 02-08-2024 13:21-040 Body weight 55.34 kg [employer] Work Phone: [facility] 02-08-2024 13:21-0400 Diastolic blood pressure 64 mm[Hg] [employer] Work Phone: [facility] 02-08-2024 13:21-0400 Systolic blood pressure 102 mm[Hg] Eleazar Vijaya DO Work Phone: [facility] 02-02-2024 12:39-0400 Body height 154.94 cm [facility] 02-02-2024 12:39-0400 Body mass index (BMI) [Ratio] 22.4 kg/m2 [facility] 02-02-2024 12:39-0400 Body temperature 98.3 [degF] [facility] 02-02-2024 12:39-0400 Body weight 54 kg [facility] 02-02-2024 12:39-0400 Diastolic blood pressure 64 mm[Hg] [facility] 02-02-2024 12:39-0400 Heart rate 82 /min [facility] 02-02-2024 12:39-0400 Respiratory rate 16 /min [facility] 02-02-2024 12:39-0400 SaO2% (BldA) [Mass fraction] 98 % [facility] 02-02-2024 12:39-0400 Systolic blood pressure 108 mm[Hg] [facility] 01-24-2024 11:38-0400 Body height 154.94 cm [facility] 01-24-2024 11:38-0400 Body mass index (BMI) [Ratio] 22.6 kg/m2 [facility] 01-24-2024 11:38-0400 Body temperature 96.1 [degF] [facility] 01-24-2024 11:38-0400 Body weight 54.43 kg [facility] 01-24-2024 11:38-0400 Diastolic blood pressure 60 mm[Hg] [facility] 01-24-2024 11:38-0400 Heart rate 75 /min [facility] 01-24-2024 11:38-0400 SaO2% (BldA) [Mass fraction] 98 % [facility] 01-24-2024 11:38-0400 Systolic blood pressure 114 mm[Hg] [facility] 01-03-2024 11:26-0400 Body height 154.94 cm [facility] 01-03-2024 11:26-0400 Body mass index (BMI) [Ratio] 23.2 kg/m2 [facility] 01-03-2024 11:26-0400 Body temperature 97.8 [degF] [facility] 01-03-2024 11:26-0400 Body weight 55.79 kg [facility] 01-03-2024 11:26-0400 Diastolic blood pressure 68 mm[Hg] [facility] 01-03-2024 11:26-0400 Heart rate 90 /min [facility] 01-03-2024 11:26-0400 SaO2% (BldA) [Mass fraction] 98 % [facility] 01-03-2024 11:26-0400 Systolic blood pressure 110 mm[Hg] [facility] 07-21-2023 10:20-0400 Body height 154.94 cm [facility] 07-21-2023 10:20-0400 Body mass index (BMI) [Ratio] 27.8 kg/m2 [facility] 07-21-2023 10:20-0400 Body weight 66.67 kg [facility] 07-21-2023 10:20-0400 Diastolic blood pressure 78 mm[Hg] [facility] 07-21-2023 10:20-0400 Heart rate 61 /min [facility] 07-21-2023 10:20-0400 SaO2% (BldA) [Mass fraction] 99 % [facility] 07-21-2023 10:20-0400 Systolic blood pressure 112 mm[Hg] [facility] 03-26-2023 11:30-0500 Body height 154.94 cm Jodie Portillo Other [facility] [employer] Other 03-26-2023 11:30-0500 Body mass index (BMI) [Ratio] 27.96 kg/m2 Jodie Portillo Other [employer] Other 03-26-2023 11:30-0500 Body temperature 98.8 [degF] Jodie Portillo Other [employer] Other 03-26-2023 11:30-0500 Body weight 67.13 kg Jodie Portillo Other [employer] Other 03-26-2023 11:30-0500 Diastolic blood pressure 76 mm[Hg] Jodie Portillo Other [employer] Other 03-26-2023 11:30-0500 Respiratory rate 18 /min Jodie Portillo Other [employer] Other 03-26-2023 11:30-0500 SaO2% (BldA) [Mass fraction] 98 % Jodie Portillo Other [employer] Other 03-26-2023 11:30-0500 Systolic blood pressure 118 mm[Hg] Jodie Portillo Other [employer] Other 10-02-2022 12:25-0400 Body height 154.94 cm Deidra Castlemond Other [employer] Other 10-02-2022 12:25-0400 Body mass index (BMI) [Ratio] 27.43 kg/m2 Deidra Barbara Other [employer] Other 10-02-2022 12:25-0400 Body temperature 97.7 [degF] Deidra Barbara Other [employer] Other 10-02-2022 12:25-0400 Body weight 65.86 kg Deidra Barbara Other [employer] Other 10-02-2022 12:25-0400 Respiratory rate 18 /min Deidra Barbara Other [employer] Other 10-02-2022 12:25-0400 SaO2% (BldA) [Mass fraction] 97 % Deidra Jimenez Other [employer] Other 05-21-2019 10:42-0500 BMI (Body Mass Index) 23.41 kg/m2 [facility] [employer] 05-21-2019 10:42-0500 Body Temperature 98.8 [degF] Lyric Pérez [employer] 05-21-2019 10:42-0500 Body weight 58.06 kg Lyric Beto [employer] 05-21-2019 10:42-0500 BP Diastolic 68 mm[Hg] [facility]ric [employer] 05-21-2019 10:42-0500 BP Systolic 94 mm[Hg] [facility] [employer] 05-21-2019 10:42-0500 BSA (Body Surface Area) 1.59 m2 [facility] [employer] 05-21-2019 10:42-0500 Height 157.48 cm [facility]ric [employer] 05-21-2019 10:42-0500 Pulse (Heart Rate) 90 /min Lyric Rene Cherelle eusebio [employer] 05-11-2019 14:48-0500 BMI (Body Mass Index) 22.95 kg/m2 Hima Rene [employer] 05-11-2019 14:48-0500 Body Temperature 98.8 [degF] Hima Rene LoiLojolene [employer] 05-11-2019 14:48-0500 Body weight 56.93 kg Hima Clemente [employer] 05-11-2019 14:48-0500 BP Diastolic 66 mm[Hg] Hima VillarrealCirrascale 05-11-2019 14:48-0500 BP Systolic 110 mm[Hg] Hima Clemente [employer] 05-11-2019 14:48-0500 BSA (Body Surface Area) 1.58 m2 Hima Rene [employer] 05-11-2019 14:48-0500 Height 157.48 cm Hima VillarrealCirrascale 05-11-2019 14:48-0500 Pulse (Heart Rate) 72 /min Hima Cardoza [facility] [employer] 04-27-2019 15:18-0500 BMI (Body Mass Index) 23.52 kg/m2 Lyric [employer] 04-27-2019 15:18-0500 Body Temperature 98.9 [degF] Lyric Pérez [employer] 04-27-2019 15:18-0500 Body weight 56.47 kg Lyric [employer] 04-27-2019 15:18-0500 BP Diastolic 60 mm[Hg] [facility]ric [employer] 04-27-2019 15:18-0500 BP Systolic 112 mm[Hg] [facility]ric [employer] 04-27-2019 15:18-0500 BSA (Body Surface Area) 1.56 m2 Lyric [employer] 04-27-2019 15:18-0500 Height 154.94 cm Lyric [employer] 04-27-2019 15:18-0500 Pulse (Heart Rate) 80 /min Lyric Villarreal [employer] 04-09-2019 13:38-0500 BMI (Body Mass Index) 22.77 kg/m2 Lyric [employer] 04-09-2019 13:38-0500 Body Temperature 99.4 [degF] Lyric [employer] 04-09-2019 13:38-0500 Body weight 54.66 kg Lyric Pérez [employer] 04-09-2019 13:38-0500 BP Diastolic 70 mm[Hg] Lyric Pérez [employer] 04-09-2019 13:38-0500 BP Systolic 120 mm[Hg] Lyric Pérez [employer] 04-09-2019 13:38-0500 BSA (Body Surface Area) 1.53 m2 Lyric Pérez [employer] 04-09-2019 13:38-0500 Height 154.94 cm Lyric Pérez [employer] 04-09-2019 13:38-0500 Pulse (Heart Rate) 82 /min Lyric Rene [employer] 02-06-2019 16:41-0400 BMI (Body Mass Index) 22.77 kg/m2 Lyric Pérez [employer] 02-06-2019 16:41-0400 Body Temperature 98.8 [degF] Lyric [employer] 02-06-2019 16:41-0400 Body weight 54.66 kg Lyric Pérez [employer] 02-06-2019 16:41-0400 BP Diastolic 70 mm[Hg] Lyric Pérez [employer] 02-06-2019 16:41-0400 BP Systolic 112 mm[Hg] Lyric Rene [employer] 02-06-2019 16:41-0400 BSA (Body Surface Area) 1.53 m2 Lyric Rene [employer] 02-06-2019 16:41-0400 Height 154.94 cm Lyric Rene [employer] 02-06-2019 16:41-0400 Pulse (Heart Rate) 72 /min Lyric [employer]ouseFetch [employer] 10-31-2018 16:58-0400 BMI (Body Mass Index) 23.43 kg/m2 Hima Rene [employer] 10-31-2018 16:58-0400 Body weight 56.25 kg Hima Clemente [employer] 10-31-2018 16:58-0400 BP Diastolic 60 mm[Hg] Hima Rene [address] 10-31-2018 16:58-0400 BP Systolic 112 mm[Hg] Hima Clemente [employer] 10-31-2018 16:58-0400 BSA (Body Surface Area) 1.56 m2 Hima Rene [employer] 10-31-2018 16:58-0400 Height 154.94 cm Hima Clemente [employer] 10-31-2018 16:58-0400 Pulse (Heart Rate) 72 /min Hima Rene Nani lowrycammy [employer] 10-31-2018 16:58-0400 Weight 56.25 kg Hima Clemente [employer] 08-28-2018 15:49-0400 BMI (Body Mass Index) 22.67 kg/m2 Hima Rene [employer] 08-28-2018 15:49-0400 Body Temperature 98.7 [degF] Hima Andrade [employer] 08-28-2018 15:49-0400 Body weight 54.43 kg Hima Camacho [employer] 08-28-2018 15:49-0400 BP Diastolic 60 mm[Hg] Hima Camacho [employer] 08-28-2018 15:49-0400 BP Systolic 120 mm[Hg] Hima Camacho [employer] 08-28-2018 15:49-0400 BSA (Body Surface Area) 1.53 m2 Hima Rene [employer] 08-28-2018 15:49-0400 Height 154.94 cm Hima Camacho [employer] 08-28-2018 15:49-0400 Pulse (Heart Rate) 66 /min Hima ma [employer] 08-28-2018 15:49-0400 Weight 54.43 kg Hima Camacho [employer] 02-09-2018 12:10-0400 BMI (Body Mass Index) 23.78 kg/m2 Hima Rene [employer] 02-09-2018 12:10-0400 Body Temperature 98.1 [degF] Hima Andrade [employer] 02-09-2018 12:10-0400 Body weight 58.97 kg Hima Clemente [employer] 02-09-2018 12:10-0400 BP Diastolic 80 mm[Hg] Hima Clemente [employer] 02-09-2018 12:10-0400 BP Systolic 104 mm[Hg] Hima Rene [address] 02-09-2018 12:100400 BSA (Body Surface Area) 1.61 m2 Hima Rene [employer] 02-09-2018 12:100400 Height 157.48 [address]ima Rene [address] 02-09-2018 12:10-0400 Pulse (Heart Rate) 64 /min Hima Rene [employer] 02-09-2018 12:10040 Weight 58.97 kg [address]ima Rene [address] 01-11-2018 15:19-0400 BMI (Body Mass Index) 23.32 kg/m2 Hima Rene [employer] 01-11-2018 15:19-0400 Body weight 57.83 [address] Rene [address] 01-11-2018 15:19-0400 BP Diastolic 68 mm[Hg] Hima Rene [address] 01-11-2018 15:19-0400 BP Systolic 106 mm[Hg] Hima Rene [address] 01-11-2018 15:190400 BSA (Body Surface Area) 1.59 m2 Hima Rene [employer] 01-11-2018 15:0400 Height 157.48 [address]ima Rene [address] 01-11-2018 15:19-0400 Pulse (Heart Rate) 76 /min Hima Cardoza [employer] 01-11-2018 15:19-0400 Weight 57.83 kg [address]ima Rene [address] 08-01-2017 09:57-0400 BMI (Body Mass Index) 23.59 kg/m2 Hima Rene [employer] 08-01-2017 09:57-0400 Body weight 58.51 kg Hima Clemente [employer] 08-01-2017 09:57-0400 BP Diastolic 60 mm[Hg] Hima Clemente [employer] 08-01-2017 09:57-0400 BP Systolic 94 mm[Hg] Hima Clemente [employer] 08-01-2017 09:57-0400 BSA (Body Surface Area) 1.6 m2 Hima Rene [employer] 08-01-2017 09:57-0400 Height 157.48 cm Hima Clemente [employer] 08-01-2017 09:57-0400 Pulse (Heart Rate) 80 /min Hima ma [employer] 08-01-2017 09:57-0400 Weight 58.51 kg Hima Clemente [employer] 01-13-2017 12:02-0400 BMI (Body Mass Index) 22.59 kg/m2 Hima Rene [employer] 01-13-2017 12:02-0400 Body weight 56.02 kg Hima Clemente [employer] 01-13-2017 12:02-0400 BP Diastolic 76 mm[Hg] Hima Clemente [employer] 01-13-2017 12:02-0400 BP Systolic 122 mm[Hg] Hima Rene Clemente [employer] 01-13-2017 12:02-0400 BSA (Body Surface Area) 1.57 m2 Hima Rene [employer] 01-13-2017 12:02-0400 Height 157.48 cm Hima Clemente [employer] 01-13-2017 12:02-0400 Pulse (Heart Rate) 72 /min Hima Cardoza [employer] 01-13-2017 12:02-0400 Weight 56.02 kg Hima Clemente [employer] 10-29-2016 16:57-0400 BMI (Body Mass Index) 22.13 kg/m2 Hima Rene [employer] 10-29-2016 16:57-0400 Body weight 54.89 kg Hima Clemente [employer] 10-29-2016 16:57-0400 BP Diastolic 60 mm[Hg] Hima Clemente [employer] 10-29-2016 16:57-0400 BP Systolic 104 mm[Hg] Hima Clemente [employer] 10-29-2016 16:57-0400 BSA (Body Surface Area) 1.55 m2 Hima Rene [employer] 10-29-2016 16:57-0400 Height 157.48 cm Hima Clemente [employer] 10-29-2016 16:57-0400 Pulse (Heart Rate) 68 /min Hima Cardoza [employer] 10-29-2016 16:57-0400 Weight 54.89 kg Hima Clemente [employer] 01-28-2016 17:46-0400 BMI (Body Mass Index) 21.67 kg/m2 Hima Ellinger [employer] 01-28-2016 17:46-0400 Body weight 53.75 kg Hima Clemente [employer] 01-28-2016 17:46-0400 BP Diastolic 64 mm[Hg] Hima Camacho [employer] 01-28-2016 17:46-0400 BP Systolic 94 mm[Hg] Hima Clemente [employer] 01-28-2016 17:46-0400 BSA (Body Surface Area) 1.53 m2 Hima Rene [employer] 01-28-2016 17:46-0400 Height 157.48 cm Hima Clemente [employer] 01-28-2016 17:46-0400 Pulse (Heart Rate) 64 /min Hima ma [employer] 01-28-2016 17:46-0400 Weight 53.75 kg Hima Clemente [employer] 05-30-2015 16:50-0500 BMI (Body Mass Index) 21.22 kg/m2 Hima Rene [employer] 05-30-2015 16:50-0500 Body Temperature 98 [degF] Hima chawla [employer] 05-30-2015 16:50-0500 Body weight 52.62 kg Hima Clemente [employer] 05-30-2015 16:50-0500 BP Diastolic 64 mm[Hg] Hima Clemente [employer] 05-30-2015 16:50-0500 BP Systolic 90 mm[Hg] Hima Clemente [employer] 05-30-2015 16:50-0500 BSA (Body Surface Area) 1.52 m2 Hima Rene [employer] 05-30-2015 16:50-0500 Height 157.48 cm Hima Clemente [employer] 05-30-2015 16:50-0500 Pulse (Heart Rate) 92 /min Hima Cardoza [employer] 05-30-2015 16:50-0500 Weight 52.62 kg Hima Clemente [employer] 04-08-2015 16:01-0500 BMI (Body Mass Index) 21.28 kg/m2 Hima Rene [employer] 04-08-2015 16:01-0500 Body Temperature 98.4 [degF] Hima Andrade [employer] 04-08-2015 16:01-0500 Body weight 51.94 kg Hima Clemente [employer] 04-08-2015 16:01-0500 BP Diastolic 84 mm[Hg] Hima Clemente [employer] 04-08-2015 16:01-0500 BP Systolic 118 mm[Hg] Hima Clemente [employer] 04-08-2015 16:01-0500 BSA (Body Surface Area) 1.5 m2 Hima Rene [employer] 04-08-2015 16:01-0500 Height 156.21 cm Hima Clemente [employer] 04-08-2015 16:01-0500 Pulse (Heart Rate) 72 /min Hima Cardoza [employer] 04-08-2015 16:01-0500 Weight 51.94 kg Hima Rene Clemente [employer] Encounters Encounter Date Encounter Type Care Provider Facility Start: 02-28-2024 End: 02-28-2024 Phys/qhp telephone evaluation 5-10 min Eleazar Vijaya DO Work Phone: [facility] Comment on above: Early stage of pregn ana Start: 02-08-2024 End: 02-08-2024 Bamboo flowsheet Eleazar [...] Available Start: 02-02-2024 End: 02-02-2024 Departed Referred PIGMENT GRINDER Jodie Portillo Work Phone: [facility] [place] Work Phone: Start: 02-02-2024 End: 02-02-2024 ambulatory Jodie Portillo [facility] Work Phone: Start: 02-02-2024 End: 02-02-2024 Patient encounter procedure [facility] Work Phone: Start: 01-24-2024 End: 01-24-2024 ambulatory [facility] Work Phone: Start: 01-24-2024 End: 01-24-2024 Patient encounter procedure [facility] Work Phone: Start: 01-24-2024 End: 01-24-2024 ambulatory Susana Jayla Schlumbohm PA-C Facility:[facility] Start: 01-19-2024 Non-patient / Non-visit [facility] Physician [facility] Work Phone: Start: 01-03-2024 End: 01-03-2024 ambulatory [facility] Work Phone: Start: 01-03-2024 End: 01-03-2024 Patient encounter procedure [facility] Physician [facility] Work Phone: Start: 08-10-2023 End: 08-10-2023 ambulatory Susana Jayla Schlumbohm PA-C Facility:[facility] Start: 07-21-2023 End: 07-21-2023 ambulatory [facility] Work Phone: Start: 07-21-2023 End: 07-21-2023 Patient encounter procedure [facility] Work Phone: Start: 06-28-2023 ambulatory Susana Jayla Schlumbohm PA-C Facility:[facility] Start: 06-27-2023 End: 06-27-2023 ambulatory Susana Jayla Schlumbohm PA-C Facility:[facility] Start: 06-22-2023 End: 06-22-2023 ambulatory Susana Jayla Schlumbohm PA-C Facility:[facility] Start: 05-17-2023 End: 05-17-2023 ambulatory Susana Jayla Schlumbohm PA-C Facility:[facility] Start: 04-21-2023 End: 04-21-2023 ambulatory Susana Jayla Schlumbohm PA-C Facility:[facility] Start: 04-20-2023 End: 04-20-2023 ambulatory Gabino Soni PA-C Facility:[facility] Start: 03-26-2023 End: 03-26-2023 ambulatory Jodie Portillo Other [employer] Other Start: 03-26-2023 Office outpatient visit 15 minutes Jodie Portillo [facility] Start: 02-24-2023 End: 02-24-2023 ambulatory Gabino Soni PA-C Facility:[facility] Start: 02-23-2023 End: 02-23-2023 ambulatory Janeth Pérez [facility] Facility:[facility] Start: 02-04-2023 ambulatory Gabino Soni PA-C Facility:[facility] Start: 10-02-2022 End: 10-02-2022 ambulatory Deidra Castlemond Other [employer] Other Start: 10-02-2022 Office outpatient ne w 20 minutes Deidrajoslyn Jimenez [facility] Start: 05-21-2019 Office outpatient [...] at a health care facility [facility] Start: 10-31-2018 Lab [facility] [place] Other [facility] Start: 10-31-2018 Office outpatient visit 15 minutes Cheryl Dobbins Other [facility] Start: 08-28-2018 Lab [facility] [place] Other [facility] Start: 08-28-2018 Office outpatient visit 15 minutes Cheryl Dobbins Other [facility] Start: 04-20-2018 End: 04-20-2018 Emergency department patient visit [facility] Start: 03-08-2018 Lab Enrique sy Other [facility] Start: 03-08-2018 Office outpatient visit 15 minutes Vinita José Luis Other [facility] Start: 02-09-2018 Office outpatient visit 15 minutes Lyric Pérez Other [facility] Start: 02-03-2018 End: 02-03-2018 Lab Enrique Ordonez Other [facility] Start: 01-30-2018 Lab Enrique sy Other [facility] Start: 01-30-2018 Office outpatient visit 15 minutes Vinita José Luis Other [facility] Start: 01-11-2018 Office outpatient visit 15 minutes Lyric Pérez Other [facility] Start: 12-28-2017 Office outpatient visit 15 minutes Vinita José Luis Other [facility] Start: 12-28-2017 Lab Enrique sy Other [facility] Start: 08-01-2017 Office outpatient visit 25 minutes Lyric Pérez Other [facility] Start: 07-28-2017 End: 07-28-2017 Emergency department patient visit [facility] Start: 01-13-2017 Office outpatient visit 15 minutes Rachel Ly Other [facility] Start: 10-29-2016 Office outpatient visit 15 minutes Rachel Ly Other [facility] Start: 06-07-2016 Office outpatient visit 15 minutes Enrique José Luis Other [facility] Start: 04-23-2016 Office outpatient visit 15 minutes Enrique José Luis Other [facility] Start: 03-19-2016 Office outpatient visit 15 minutes Enrique José Luis Other [facility] Start: 02-12-2016 Office outpatient ne w 20 minutes Enrique Ordonez Other [facility] Start: 01-28-2016 Office outpatient visit 15 minutes Lyric Pérez Other [facility] Start: 05-30-2015 Office outpatient visit 15 minutes Lyric Pérez Other [facility] Start: 04-08-2015 Office outpatient ne w 20 minutes Lyric Pérez Other [facility] Office Procedures Date Procedure Procedure Detail Performing Clinician Start: 02-08-2024 End: 02-08-2024 Urnls dip stick/tablet rgnt non-auto w/o micrscp Eleazar Vijaya DO Work Phone: Start: 02-08-2024 URETHRITIS/DISCHARGE PLUS VAGINITIS (HTRX) [employer] Work Phone: Start: 01-03-2024 Quick Strep (POC) Start: 05-11-2019 Assay of thyroid stimulating hormone tsh Lyric Pérez Start: 05-11-2019 Blood count complete auto&auto difrntl wbc Lyric Beto Start: 05-11-2019 Doc meds verified w/ pt or re Hima Silver Start: 05-11-2019 EBV Complete Series [employer] angelmiguel Pérez Start: 04-27-2019 Doc meds verified w/ pt or re Lyric Pérez Start: 04-09-2019 Doc meds verified w/ pt or re Lyric Pérez Start: 02-06-2019 Doc meds verified w/ pt or re Lyric Pérez Start: 10-31-2018 Doc meds verified w/ pt or re Hima Ellinger Start: 10-31-2018 Urnls dip stick/tabl et rgnt auto w/o microscopy Hima Adrianne Start: 08-28-2018 Ceftriaxone sodium injection Hima Adrianne Start: 08-28-2018 Doc meds verified w/ pt or re Ihma Adrianne Start: 08-28-2018 Urnls dip stick/tabl et rgnt auto w/o microscopy Hima Ellinger Start: 04-20-2018 Radex spine lumbosac ral 2/3 views TALON CARONE Start: 12-13-2018 Basic metabolic pane l calcium total TALON CARONE Start: 04-20-2018 Blood count complete automated TALON CARONE Start: 04-20-2018 Microscopic urinalysis TALON CARONE Start: 04-20-2018 Urine test visual color cmprsn meths TALON CARONE Start: 04-20-2018 URINE RT REFLEX TO CULTURE TALON CARONE Start: 03-08-2018 Doc meds verified w/ pt or re Hima Adrianne Start: 03-08-2018 Urine test visual color cmprsn meths Hima Ellinger Start: 02-09-2018 Doc meds verified w/ pt or re Hima Ellinger Start: 02-03-2018 Urine test visual color cmprsn meths Hima Ellinger Start: 01-30-2018 Doc meds verified w/ pt or re Hima Adrianne Start: 01-30-2018 Urine test visual color cmprsn meths Hima Ellinger Start: 01-11-2018 Doc meds verified w/ pt or re Hima Ellinger Start: 12-28-2017 Doc meds verified w/ pt or re Hima Adrianne Start: 12-28-2017 Gonadotropin chorion ic qualitative Hima Ellinger Start: 12-28-2017 Hepatic function panel Hima Ellinger Start: 12-28-2017 Lipid panel Hima Ri cketts [...] 06-07-2016 Cholesterol serum/wh ole blood total Hima Ellinger Start: 06-07-2016 Gonadotropin chorion ic qualitative Hima Ellinger Start: 06-07-2016 Hepatic function panel Hima Adrianne Start: 04-23-2016 Urine test visual color cmprsn meths Hima Ellinger Start: 03-19-2016 Urine test visual color cmprsn meths Hima Ellinger Start: 02-12-2016 Assay of triglycerides Hima Adrianne Start: 02-12-2016 Blood count complete auto&auto difrntl wbc Hima Adrianne Start: 02-12-2016 Cholesterol serum/wh ole blood total Hima Silver Start: 02-12-2016 Gonadotropin chorion ic qualitative Hima Silver Start: 02-12-2016 Hepatic function panel Hima Silver Plan of Treatment Date Care Activity Detail Author Start: 03-07-2024 ambulatory Ambulatory Facility:Shamar Kristofer [facility] Start: 02-28-2024 End: 02-28-2024 Patient encounter procedure 02/28/2024 8:10 AM EDT Office Visit [facility] [address] [place] [id number] Eleazar Lilly, DO [address] [place], [place] [id number] [facility] Start: 02-08-2024 End: 02-07-2025 SURESWAB(R) ADVANCED VAGINITIS PLUS, TMA SURESWAB(R) ADVANCED VAGINITIS PLUS, TMA Pathology and Cytology Routine Pelvic pain in female Expected: 02/08/2024 (Approximate), Expires: 02/07/2025 [facility] Work Phone: Comment on above: Expected: 02/08/2024 (Approximate), Expires: 02/07/2025 Start: 02-08-2024 End: 02-07-2025 US for US PELVIS-TRANSVAG IF INDICATED Imaging Routine Pelvic pain in female Expected: 02/08/2024 (Approximate), Expires: 02/07/2025 [facility] Comment on above: Expected: 02/08/2024 (Approximate), Expires: 02/07/2025 Start: 02-08-2024 End: 02-08-2024 Patient encounter procedure 02/08/2024 1:20 PM EDT Office Visit [facility] [address] [facility] [place] [phone] Eleazar Lilly, DO [address] [place] [address] Arrived [facility] Comment on above: Arrived Start: 02-02-2024 [facility] Start: 01-08-2024 Influenza vaccination Influenza Vacc ine (#1) [facility] Start: 05-11-2019 Blood count complete auto&auto difrntl wbc CBC w diff [employer] Start: 05-11-2019 TSH Qn TSH [employer] Start: 11-02-2018 Blood count complete automated CBC & PLATELET COUNT; AUTOMATED [employer] Start: 11-02-2018 Comprehensive metabo lic panel Comprehensive metabolic panel [employer] Start: 11-02-2018 Gonadotropin chorion ic qualitative SERUM [employer] Start: 11-02-2018 Hemoglobin A1c/Hemoglobin.total mass fraction (Bld) Hgb A1c [employer] Start: 11-02-2018 Lipid panel Lipid panel [employer] Start: 11-02-2018 Thyrotropin Qn TSH (thyroid stimulating hormone) [employer] Start: 11-02-2018 Urnls dip stick/tabl et rgnt auto w/o microscopy [employer] vaginae DN A [Presence] in Vaginal fluid by ELDON with probe detection [facility] Bacterial vaginosis associated bacterium 2 DNA [Presence] in Vaginal fluid by ELDON with probe detection [facility] CHLAMYDIA TRACHOMATI S (GENITO/STI) CHLAMYDIA TRACHOMATIS (GENITO/STI) Lab Routine Pelvic pain in female Ordered: 02/08/2024 [facility] Comment on above: Ordered: 02/08/2024 Estradiol (E2) [Mass/volume] in Serum or Plasma [facility] Estrogen [Mass/volum e] in Serum or Plasma [facility] Holter monitor study [facility] Lutropin [Units/volu me] in Serum or Plasma [facility] Megasphaera sp type 1 DNA [Presence] in Vaginal fluid by ELDON with probe detection [facility] Neisseria gonorrhoea e DNA [Presence] in Unspecified specimen by ELDON with probe detection Neisseria gonorrhea DNA probe, direct Lab Routine Pelvic pain in female Ordered: 02/08/2024 [facility] Comment on above: Ordered: 02/08/2024 Progesterone [Mass/volume] in Serum or Plasma [facility] XR Cervical spine 5 Views [facility] XR Thoracic and lumb ar spine Views for scoliosis [facility] Payers Date Payer Category Payer Self-pay 2022 Medicaid [id number] 2022 Medicaid [id number] 2. [id number] 2022 Unknown 2015 Unknown [id number] 2.16 .[id number] 2014 Unknown [id number] 1996 Unknown [id number] 2.16.8 [id number] 1996 Unknown [id number] 2.16.8 [id number] 1996 Unknown [id number] 2.16. [id number] 1996 Unknown [id number] 2.16. [id number] 1996 Unknown [id number] 2.16. [id number] 1996 Unknown [id number] 2.16. [id number] 1996 Unknown [id number] 2.16. [id number] 1996 Unknown [id number] 2.16. 840.1.196499.3.579.2.196 1996 Unknown [id number] 2.16. 840.1.323313.3.579.2.196 1996 Unknown [id number] 2.16. 840.1.703728.3.579.2.196 1996 Unknown [id number] 2.16. 840.1.745590.3.579.2.196 1996 Unknown [id number] 2.16. 840.1.480692.3.579.2.196 1996 Unknown [id number] 2.16. 840.1.874014.3.579.2.196 1996 Unknown [id number] 2.16. 840.1.295396.3.579.2.196 1996 Unknown [id number] 2.16. 840.1.421484.3.579.2.196 1996 Unknown [id number] 1995 Unknown [id number] Unknown [id number] Social History Date Type Detail Facility Start: Unknown if ever smoked [facility] Start: 1 can pop/day [facility] Sex Assigned At [facility] Other Start: 07-21-2023 End: 02-02-2024 Tobacco smoking status NHIS Never smoked tobacco (finding) [facility] Start: 1995 Sex Assigned At Female F [facility] Tobacco smoking status TNIS Tobacco smoking consumption unknown [facility] Start: 1995 Sex assigned at Not on file N [facility] Clinical Notes 10-02-2022 to 02-28-2024 Yaneli Xavier LPN - 02/28/2024 8:10 AM EDTYaneli Xavier LPN - 02/08/2024 1:20 PM EDT Note Date & Type Note Facility 02-28-2024 History of Presen t illness Narrative Reason for Appointment: Patient ID: Cristiane Dunbar is a 28 y.o. female who presents for Telehealth (Pt had ultrasound and positive HCG) Patient presents today via telephone call for a telehealth appointment. Patients Phone #: [phone] (mobile) Current Medications: has a current medication list which includes the following prescription(s): sertraline. Medical History: Active Ambulatory Problems Diagnosis Date Noted No Active Ambulatory Problems Resolved Ambulatory Problems Diagnosis Date Noted No Resolved Ambulatory Problems No Additional Past Medical History Family History Problem Relation Name Age of Onset Lung cancer Maternal Grandmother Social History Tobacco Use Smoking status: Not on file Smokeless tobacco: Not on file Substance Use Topics Alcohol use: Not on file Drug use: Not on file No past surgical history on file. No Known Allergies Vitals: Estimated body mass index is 23.05 kg/m as calculated from the following: Height as of 02/08/24: 5' 1 . Weight as of 02/08/24: 122 lb. BP: Patient's last menstrual period was 01/23/2024. Assessment/Plan Encounter Diagnosis Name Primary? Early stage of Pt was called and reviewed ultrasound and labs from 02/20/24. Discussed ultrasound results and hcg level. Pt still having symptoms- hcg level yesterday was elevated- pt will repeat HCG Tuesday and Tuesday to make sure it is doubling. Pt voiced understanding. All questions answered Today's telehealth visit consisted of spending 5 minutes talking to patient on the phone. Documented by Yaneli Xavier LPN on behalf of: Eleazar Lilly DO documented in this encounter [facility] 02-08-2024 History of Presen t illness Narrative [...] nursing note reviewed. Exam conducted with a motorcycle subassembler present. Vitals: Estimated body mass index is [...] Eleazar Lilly DO documented in this encounter [facility] 03-26-2023 Evaluation note Encounter Date Diagnosis Assessment [...] verbalized understanding and agrees with treatment plan [facility] Other 10-17-2023 NotePatient Education Materials Name: Cristiane Dunbar Current Date: 02/22/2023 08:04:31 [place] : 1995 [...] breast self-examination (BSE). These experts include the [place] [employer], the [employer].[place]. Preventive ServicesTask Force, and the [place] [employer]nec[employer]. Some experts [...] it's important to contact your provider right away.Remember that most breast lumps are benign. This means they are not cancer. ? [id number] [employer]. [address] [place] [address], [place] [address]. All rights reserved. This information is not intended as a substitute for professional medical care. Always follow your healthcare professional's instructions.[facility]05-27-2023 Evaluation note* Encounter Date Diagnosis Assessment Notes Treatment Notes Treatment Clinical Notes September, Sore throat (ICD-10 - J02.9) [...] no improvement in 2 to 3 days [facility] Other Evaluation note* Diagnosis Onset Date Resolution Status Acquired scoliosis acute Daily headache acute Fatigue acute Hot flashes acute Irregular menstrual cycle ac hans Neck pain acute [facility] Work Phone: Evaluation note* Diagnosis Onset Date Resolution Status Dizziness acute Heart palpitations acute [facility] Work Phone: Evaluation note* Diagnosis Onset Date Resolution Status Dizziness acute Heart palpitations acute Anxiety acute Depression [facility] Work Phone: Evaluation note* Diagnosis Onset Date Resolution Status Dizziness acute Heart palpitations acute Anxiety acute Depression acute Vaginal discharge noneactive Acute effusion of both middle ears noneactive [facility] Work Phone: Evaluation note* Diagnosis Pelvic pain in female Unspecified symptom associated with female genital organs [facility] Diagnosis Early stage of state, incidental documented in this encounter [facility] Summary Purpose Family History Relationship Condition Age at Onset Recorded Date/T kacey father Hypertension Unknown Advance Directives Advance Directive Response Recorded Date/ Time Advance Directives No July 20 8:38am Advance Directive Response Recorded Date/ Time [...] and content) DATE CREATED AUTHOR 04/25/2018 [facility] DATE CREATED AUTHOR AUTHOR'S ORGANIZ ATION 12/02/2019 [facility] DATE CREATED AUTHOR AUTHOR'S ORGANIZ ATION 01/27/2024 [facility] DATE CREATED AUTHOR AUTHOR'S ORGANIZ ATION 02/06/2024 [facility] DATE CREATED AUTHOR AUTHOR'S ORGANIZ ATION 02/10/2024 [facility] EPIC REASON FOR VISIT (unrecogniz ed section and content) Reason Comments Pelvic Pain Reason Comments Telehealth Pt had ultrasound an d positive HCG Care Teams (unrecognized sec tion and content) Team Status: Active Member Role Status Dates Evelyn Vu APRN PUMP ERECTOR-C Primary Care Provider Active Team Status: Inactive Member Role Status Dates Evelyn Vu APRN [employer] E[employer]-C Primary Care Provider, Attending Provider Active Start: July 21, 2023 End: July 21, 2023 Team Status: Inactive Member Role Status Dates Evelyn Vu APRN [employer] E[employer]-C Primary Care Provider, Attending Provider Active Start: January 03, 2024 End: January 03, 2024 Team Status: Active Member Role Status Dates Evelyn Vu APRN PUMP E[employer]OR-C Primary Care Provider Active Start: January 072023 Ty Aguilar DO Attending Provider Active S tart: January 19, 2024 Team Status: Inactive Member Role Status Dates Evelyn Vu APRN [employer] E[employer] Primary Care Provider, Attending Provider Active Start: January 24, 2024 End: January 24, 2024 Team Status: Inactive Member Role Status Dates Evelyn Vu APRN [employer] E[employer]-C Primary Care Provider Active Start: January 082023 End: February 02, 2024 Jodie Portillo APRN Attending Provider Active Start: February 02, 2024 End: February 02, 2024 Team Status: Inactive Member Role Status Dates Jodie Portillo APRN Attending Provider Active Start: February 02, 2024 End: February 02, 2024 Experimental Mechanic Electrical Relationship Specialty Start Date End Date Corwin Dee DO [address] [place] [address] PCP - General Family Medicine 09/14/22 Experimental Mechanic Electrical Relationship Specialty Start Date End Date Corwin Dee, [address] [place] [address] PCP - General Family Medicine 09/14/22 Experimental Mechanic Electrical Relationship Specialty Start Date End Date Corwin Dee, [address] [place] [address] PCP - General Family Medicine 09/14/22 Experimental Mechanic Electrical Relationship Specialty Start Date End Date Corwin Dee DO [address] [place] [address] PCP - General Family Medicine 09/14/22 Goals [...] BE BASED ON THE PRIMARY CLINICAL RECORDS. [facility]. provides no warranty or guarantee of the accuracy or completeness of information in this document.
[2024-02-29 08:19] LABS: HCG Quantitative 30 mIU/mL
[2024-03-02 08:10] LABS: HCG Quantitative 67 mIU/mL
== END 2024-03-08 12:07 | disposition home or self-care (01) ==
LOC: LAB 07:15
PROVIDERS: PCP Nurse Practitioner Family; Visit Provider Emergency Medicine
DX: Z32.01 Encounter for pregnancy test, result positive (principal); R10.9 Unspecified abdominal pain
CPT/HCPCS: 36415; 84702

== ENCOUNTER 2024-03-08 13:43 | Outpatient (OUT) | payer MEDICAID, SELFPAY ==
[2024-03-08 14:38] LABS: HCG Quantitative 2190 mIU/mL
== END 2024-03-08 13:44 | disposition home or self-care (01) ==
LOC: LAB 13:43
PROVIDERS: PCP Nurse Practitioner Family; Visit Provider Obstetrics & Gynecology
DX: Z34.90 Encounter for supervision of normal pregnancy, unspecified, unspecified trimester (principal)
CPT/HCPCS: 36415; 84702

== ENCOUNTER 2024-03-17 17:22 | Emergency (ER) | payer MEDICAID, SELFPAY ==
--- OUTSIDE RECORDS SUMMARY | 2024-03-17 17:29 | XMS_ITS | CCD ---
Author Organization [facility] Care Team Providers Care Dictaphone Transcriber Name Role Phone TALON VERAS Unavailable Unavailable TALON VERAS Unavailable Unavailable Hima Silver Primary Care Physician Unava ilHima Ramos Unavailable Unavailable Hima Silver A Primary Care Physician Unava ilHima Ramos A Primary Care Physician Unava iljennifer Pérez, Lyric N Primary Care Physician Unavakirk Pérez, Lyric N Primary Care Physician Unachad Pérez, Lyric N Primary Care Physician UnaHima Rahman A Primary Care Physician Unava iljennifer Pérez, Lyric N Primary Care Physician Unavai Deidra Morrison Unavailable Jodie Portillo Unavailable GELACIO Portillo Attending Provider [phone] Jodie Portillo Attending Unavailable Jodie Portillo Admitting Unavailable Corwin Dee DO Primary Care Provider Unallocated , [place] Provider Primary Care Provi kamille Schflaviombohm ZANDRACSusana Primary Care U navailable Schlumbohm PA-C, Susana Dickerson Attending U navailable [place] 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, Ana Serra Attending Carley vailable Schlumbohm PA-C, Susana Dickerson Primary Care U navailable [place] 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, Ana Serra Attending Carley vailable Schlumbohm PA-C, Susana Dickerson Primary Care U navailable [place] 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, Ana Serra Attending Carley vailable Schlumbohm PA-C, Susana Dickerson Primary Care U navailable KarenMike franco DO Attending Unavailab le Schlumbohm PA-C, Susana Dickerson Primary Care U navailable Schlumbohm PA-C, Susana Dickerson Primary Care U navailable Schlumbohm PA-C, Susana Dickerson Referring U navailable Breece PA-C, Amara Serra Attending Unav ailable Zachariah PA-C, Gabino Portillo Primary Care Unavail able Schlumbohm PA-C, Susana Dickerson Attending U navailable Zachariah PA-C, Gabino Portillo Primary Care Unavail able Schlumbohm PA-C, Susana Dickerson Attending U navailable Zachariah PA-C, Gabino Portillo Primary Care Unavail able Schlumbohm PA-C, Susana Dickerson Attending U navailable Zachariah PA-C, Gabino Portillo Primary Care Unavail able Schlumbohm PA-C, Susana Dickerson Attending U navailable Schlumbohm PA-C, Susana Dickerson Primary Care U navailable Schlumbohm PA-C, Susana Dickerson [facility]ending [facility] Attending Unavailable ELEAZAR LILLY Attending Unavailable Medications Current Medications Medication Drug Class(es) Dates [...] Three times daily January 24, 2024 12:00am metoclopramide 10 mg oral tablet (2 sources) Dopamine-2 Receptor Antagonist Start: 03-14-2024 End: 04-13-2024 metoclopramide (Reglan) 10 MG tablet Indications: Losing weight Take 1 tablet (10 mg) by mouth in the morning and 1 tablet (10 mg) at noon and 1 tablet (10 mg) in the evening. Take before meals. Take 1 tablet by mouth 30 minutes prior to meals 3 times daily as needed for nausea.. 90 tablet 1 03/14/2024 04/13/2024 Active ondansetron 4 mg disintegrating oral tablet (17 sources) Serotonin-3 Receptor Antagonist Start: 03-13-2024 End: 04-12-2024 take 1 tablet by mouth every six hours for nausea ondansetron ODT (Zofran-ODT) 4 MG disintegrating tablet Indications: Nausea and vomiting in Take 1 tablet (4 mg) by mouth every 6 (six) hours if needed for nausea or vomiting 30 tablet 2 03/13/2024 04/12/2024 Active Start: 07-21-2023 End: 01-24-2024 take 4 mg by mouth once daily Ondansetron Discontinued 4 MG PO Daily July 21, 2023 12:00am January 24, 2024 11:41am Start: 08-28-2018 End: 09-04-2018 take 1 tablet by mouth three times daily as needed for nausea Zofran 4 mg oral tablet 08/28/2018 09/04/2018 take 1 tablet by oral route TID PRN nausea sertraline 25 mg oral tablet (12 sources) Serotonin Reuptake Inhibitor Start: 01-24-2024 sertraline [...] Start: 05-21-2019 take 1 capsule by mo [facility] three times daily as needed for cough [...] 10 MG PO Three times daily 30 10 November 02, 2023 12:00am January 24, 2024 [...] [Fatigue] Onset: 05-11-2019 07-21-2023 Episodic Menstrual disorders (8 sources) Irregular periods; Translations: [Irregular menstruation, unspecified] [...] or concentration deficit Onset: 01-28-2016 Chronic Other nutritional; endocrine; and metabolic disorders (2 sources) Weight decreasing; Translations: [Abnormal weight loss] 03-14-2024 Episodic Other and delivery including normal (2 sources) [...] Test Name Value Interpretation Reference Range Facility HCG ( test) Ql (U)o n 03-14-2024 Interpretation and review of laboratory results Abnormal [facility] Preg Test, Ur Positive Negative [facility] Healthcare [facility] Urinalysis macro (dipstick) panel (U)on 03-14-2024 Bilirubin, UA Positive Negative - 4(70) +++ mg/dL [facility] Comment on above: small Blood, UA Positive Negative - 50 Fuad/mcL [facility] Comment on above: moderate Clarity, UA Clear [facility] Color, UA Yellow [facility] Glucose, UA Negative Negative - 1999(110) ++++ mg/dL [facility] Interpretation and review of laboratory results Abnormal [facility] Ketones, UA Positive Negative - 160(16) ++++ mg/dL [facility] Comment on above: 40 Leukocytes, UA Negative Negative - 500+++ Sandie/mcL [facility] Nitrite, UA Negative Negative - Positive [facility] pH, UA 5.5 5 - 9 [facility] Protein, UA Negative Negative - 1999(20) ++++ mg/dL [facility] Spec Grav, UA 1.03 1 - 1.03 [facility] Urobilinogen, UA 0.2 0.2 - 12 mg/dL [facility] PREG QUANT HCGon 024 HCG QUANTITATIVE 2190 mIU/mL [facility] Comment on above: 5-50 0.2-1 WEEK 50-500 1-2 WEEKS 100-5,000 2-3 WEEKS 500-10,000 3-4 WEEKS 1,000-50,000 4-5 WEEKS 10,000-100,000 5-6 WEEKS 15,000-200,000 6-8 WEEKS 10,000-100,000 2-3 MONTHS [facility] URETHRITIS/DISCHARGE PLUS VA GINITIS (HTRX)on 02-10-2024 ATOPOBIUM VAGINAE 0.000 [facility] ATOPOBIUM VAGINAE Not detected [facility] BVAB 2,3 (BACTERIAL VAGINOSIS ASSOCIATED BACTERIA 2, 3); MOBILUNCUS SPP 0.000 [facility] BVAB 2,3 (BACTERIAL VAGINOSIS ASSOCIATED BACTERIA 2, 3); MOBILUNCUS SPP Not detected [facility] ALICIA ALBICANS, PARAPSILOSIS, TROPICALIS 0.000 [facility] ALICIA ALBICANS, PARAPSILOSIS, TROPICALIS Not detected [facility] ALICIA GLABRATA 0.000 [facility]ICIA GLABRATA [facility] KRUSEI [facility].000 [facility] ALICIA KRUSEI Not detected [facility] CHLAMYDIA TRACHOMATIS 0.000 [facility] CHLAMYDIA TRACHOMATIS Not detected [facility] GARDNERELLA VAGINALIS 0.000 [facility] GARDNERELLA VAGINALIS Not detected [facility] MEGASPHAERA (TYPES 1, 2) 0.000 [facility] MEGASPHAERA (TYPES 1, 2) Not detected [facility] MYCOPLASMA GENITALIUM 0.000 [facility] MYCOPLASMA GENITALIUM Not detected [facility] NEISSERIA GONORRHOEAE 0.000 [facility] NEISSERIA GONORRHOEAE Not detected [facility] TRICHOMONAS VAGINALIS 0.000 [facility] TRICHOMONAS VAGINALIS Not detected N [facility] HCG ( test) Ql (U)o n 02-08-2024 Interpretation and review of laboratory results Normal [facility] Preg Test, Ur Negative [facility] Urinalysis macro (dipstick) panel (U)on 02-08-2024 Bilirubin, UA Negative Negative - 4(70) +++ mg/dL [facility] Blood, UA Negative Negative - 50 Fuad/mcL [facility] Clarity, UA Clear [facility] Color, UA Yellow [facility] Glucose, UA Negative Negative - 1999(110) ++++ mg/dL [facility] Interpretation and review of laboratory results Normal [facility] Ketones, UA Negative Negative - 160(16) ++++ mg/dL [facility] Leukocytes, UA Negative Negative - 500+++ Sandie/mcL [facility] Nitrite, UA Negative Negative - Positive [facility] pH, UA 7.5 5 - 9 [facility] Protein, UA Negative Negative - 2000(20) ++++ mg/dL [facility] Spec Grav, UA 1.020 1 - 1.03 [facility] Urobilinogen, UA 0.2 0.2 - 12 mg/dL [facility] Vaginitis Plus (VG+)on 02-01 Atopobium Vaginae Low - 0 Normal . [facility] Comment on above: Result Comment: This test was developed and its performance characteristics determined by [facility]. It has not been cleared or approved by the Food and Drug Administration. Performed By: #### V AGINITIS+ #### [facility] , BVAB2 Low - 0 Normal . [facility] Comment on above: Result Comment: This test was developed and its performance characteristics determined by [facility]. It has not been cleared or approved by the Food and Drug Administration. Performed By: #### V AGINITIS+ #### [facility] , Alicia Albicans, ELDON Positive Critically abnormal Negative [facility] Comment on above: Result Comment: This test was developed and its performance characteristics determined by [facility]. It has not been cleared or approved by the Food and Drug Administration. Performed By: #### V AGINITIS+ #### [facility] , Alicia Glabrata, ELDON Negative Normal Negative [facility] Comment on above: Result Comment: This test was developed and its performance characteristics determined by [facility]. It has not been cleared or approved by the Food and Drug Administration. PERFORMED BY: [address] [place] [address] PATHOLOGIST VISUAL STYLIST IRENE TURPIN M.D. Performed By: #### V AGINITIS+ #### [facility] , Chlamydia Trachomotis, ELDON Negative Normal Negative [facility] Comment on above: Performed By: #### V AGINITIS+ #### [facility] , Megasphaera Low - 0 Normal . [facility] Comment on above: Result [...] Neisseria Gonorrhoeae, ELDON Negative Normal Negative [facility] Comment on above: Result Comment: Perf ormed at: =G - [facility] [address] [place] [id number] C D Area Supervisor: Bri Keenan MD, Phone: [phone] Performed By: #### V AGINITIS+ #### [facility] , Tric Vag ELDON Negative Normal Negative [facility] Comment on above: Performed By: #### V AGINITIS+ #### [facility] , Basophils Auto (Bld) [#/Vol] on 01-19-2024 Basophils (Bld) [#/Vol] 0.0 10 3/uL 0.0-0.1 [facility] Basophils/100 WBC Auto (Bld) on 01-19-2024 Basophils/100 WBC (Bld) 0.4 % 0.2-2.0 [facility] Eosinophils/100 WBC Auto (Bl d)on 01-19-2024 Eosinophils/100 WBC (Bld) 1.0 % 0.9-7.0 [facility] Erythrocyte distribution wid th Auto (RBC) [Ratio]on 01-19-2024 Erythrocyte distribution width (RBC) [Ratio] 11.7 % 11.0-15.0 [facility] Estimated glomerular filtrat ion rate (GFR) non- Americanon 01-19-2024 GFR/1.73 sq M.predicted among non-blacks MDRD (S/P/Bld) [Vol rate/Area] mL/min/{1.73_m2} >=60 [facility] Hematocrit Auto (Bld) [Volum e fraction]on 01-19-2024 Hematocrit (Bld) [Volume fraction] 39.6 % 36.0-48.0 [facility] Hemoglobin [Mass/volume] in Bloodon 01-19-2024 Hemoglobin (Bld) [Mass/Vol] 14.3 g/dL 12.0-16.0 [facility] Laboratory - Chemistry and C hemistry - challengeon 01-19-2024 Calcium [Mass/Vol] 8.7 mg/dL 8.5-10.1 [facility] Chloride [Moles/Vol] 100 mmol/L 98-107 [facility] CO2 [Moles/Vol] 27.5 mmol/L 21.0-32.0 [facility] Creatinine [Mass/Vol] 0.88 mg/dL 0.55-1.02 [facility] GFR/1.73 sq M.predicted MDRD (S/P/Bld) [Vol rate/Area] mL/min/{1.73_m2} >=60 [facility] Glucose [Mass/Vol] 94 mg/dL 74-106 [facility] Potassium [Moles/Vol] 3.3 mmol/L Low 3.5-5.1 [facility] Sodium [Moles/Vol] 135 mmol/L Low 136-145 [facility] Urea nitrogen [Mass/Vol] 12.0 mg/dL 7.0-18.0 [facility] Urea nitrogen/Creatinine [Mass ratio] 13.6 mg/mg [facility] Laboratory - Hematology and Cell countson 01-19-2024 Immature granulocytes/100 WBC (Bld) 0.0 % 0.0-0.5 [facility] Leukocytes [#/volume] correc leonidas for nucleated erythrocytes in Blood by Automated counon 01-19-2024 WBC corrected for nucl RBC Auto (Bld) [#/Vol] 4.8 10 3/uL 4.0-11.0 [facility] Lymphocytes Auto (Bld) [#/Vo l]on 01-19-2024 Lymphocytes (Bld) [#/Vol] 1.2 10 3/uL 1.2-3.8 [facility] Lymphocytes/100 WBC Auto (Bl d)on 01-19-2024 Lymphocytes/100 WBC (Bld) 25.1 % 20.5-60.0 [facility] MCH Auto (RBC) [Entitic mass ]on 01-19-2024 MCH (RBC) [Entitic mass] 30.4 pg 26.7-34.0 [facility] MCHC Auto (RBC) [Mass/Vol]on 01-19-2024 MCHC (RBC) [Mass/Vol] 36.1 g/dL High 29.9-35.2 [facility] MCV Auto (RBC) [Entitic vol] on 01-19-2024 MCV (RBC) [Entitic vol] 84.1 fL 81.0-99.0 [facility] Monocytes Auto (Bld) [#/Vol] on 01-19-2024 Monocytes (Bld) [#/Vol] 0.6 10 3/uL 0.3-0.8 [facility] Monocytes/100 WBC Auto (Bld) on 01-19-2024 Monocytes/100 WBC (Bld) 11.6 % 1.7-12.0 [facility] Neutrophils Auto (Bld) [#/Vo l]on 01-19-2024 Neutrophils (Bld) [#/Vol] 3.0 10 3/uL 1.4-6.5 [facility] Neutrophils/100 WBC Auto (Bl d)on 01-19-2024 Neutrophils/100 WBC (Bld) 61.9 % 43.0-75.0 [facility] No Panel Informationon 01-18 Eosinophils # (Auto) 0.1 10 3/uL 0.0-0.7 [facility] Chorionic Gonadotropin, Qual Negative NEGATIVE [facility] Immature Granulocyte # (Auto) 0.00 10 3/uL 0.00-0.03 [facility] Platelet mean volume Auto (B ld) [Entitic vol]on 01-19-2024 Platelet mean volume (Bld) [Entitic vol] 11.2 fL 9.5-13.5 [facility] Platelets Auto (Bld) [#/Vol] on 01-19-2024 Platelets (Bld) [#/Vol] 137 10 3/uL Low 150-450 [facility] RBC Auto (Bld) [#/Vol]on RBC (Bld) [#/Vol] 4.71 10 6/uL 4.20-5.40 [facility] Serum or plasma anion gap de terminationon 01-19-2024 Anion gap [Moles/Vol] 10.8 mmol/L [facility] Choriogonadotropin.beta subu nit ( test) [Presence] in Urineon 01-03-2024 Beta HCG ( test) Ql (U) Negative [facility] Influenza virus A and B and SARS-CoV-2 (COVID-19) RNA panel - Respiratory system specon 01-03-2024 Influenza virus A and B RNA and SARS-CoV-2 (COVID-19) N gene panel ELDON+probe (Resp) Negative [facility] Laboratory - Microbiology an d Antimicrobial susceptibilityon 01-03-2024 SARS-CoV-2 (COVID-19) RNA ELDON+probe Ql (Unsp spec) Negative [facility] No Panel Informationon 01-02 POC Influenza B (ELDON) Negative [facility] No Panel InformationOrdered By: Evelyn Vu on 01-03-2024 Quick Strep (POC) [facility] Family Medicine Office/Clini c Noteon [...] weakness, visual symptoms. 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 Raise head of bed. Call or RTO if symptoms are not improving, changing or progressing. Ordered: omeprazole, 1 caps, Oral, Daily, before a meal, # 30 caps, 3 Refill(s), Pharmacy: [id number] Orders: venlafaxine, 2 caps, Oral, Daily, Take one capsule for at least 4 days then start taking 2 capsules once daily., # 60 caps, 3 Refill(s), Pharmacy: [id number] Time Spent with the Pat (more content not included)... Normal [facility] .eGFRon 04-21-2023 GFR/1.73 sq M.predicted MDRD (S/P/Bld) [Vol rate/Area] mL/min/{1.73_m2} Normal >=60 [facility] Comment on above: Result Comment: [facility] have implemented the eGFR calculation approach [...] years Performed By: #### E GFR #### [place] [address] CBC w/ Diffon 04-21-2023 Erythrocyte distribution width (RBC) [Ratio] 13.2 % Normal 11.6-14.8 [facility] Comment on above: Performed By: #### C BC #### [place] [id number] Hematocrit (Bld) [Volume fraction] 41.7 % Normal 36.0-46.0 [facility] Comment on above: Performed By: #### C BC #### [place] [id number] Hemoglobin (Bld) [Mass/Vol] 14.4 g/dL Normal 12.0-16.0 [facility] Comment on above: Performed By: #### C BC #### [place] [id number] MCH (RBC) [Entitic mass] 29.6 pg Normal 27.0-35.0 [facility] Comment on above: Performed By: #### C BC #### [place] [id number] MCHC 34.4 % Normal 31.0-37.0 [facility] Comment on above: Performed By: #### C BC #### [place] [id number] MCV (RBC) [Entitic vol] 85.9 fL Normal 80.0-100.0 [facility] Comment on above: Performed By: #### C BC #### [place] [id number] Platelet 171 x10*3/mcL Normal 150-450 [facility] Comment on above: Performed By: #### C BC #### [place] [id number] Platelet mean volume (Bld) [Entitic vol] 9.4 fL Normal 6.7-10.6 [facility] Comment on above: Performed By: #### C BC #### [place] [id number] RBC 4.86 x10*6/mcL Normal 3.80-5.20 [facility] Comment on above: Performed By: #### C BC #### [address] [address] WBC 6.1 x10*3/mcL Normal 4.5-11.0 [facility] Comment on above: Performed By: #### C BC #### [address] [address] CMPon 04-21-2023 Albumin [Mass/Vol] 4.3 g/dL Normal 3.2-4.9 [facility] Comment on above: Performed By: #### C OMP #### [address] [address] Albumin/Globulin [Mass ratio] 1.2 {ratio} Normal 1.1-2.2 [facility] Comment on above: Performed By: #### C OMP #### [address] [address] Alk Phos 65 IU/L Normal 32-91 [facility] Comment on above: Performed By: #### C OMP #### [address] [address] ALT [Catalytic activity/Vol] 23 U/L Normal 14-54 [facility] Comment on above: Performed By: #### C OMP #### [address] [address] Anion gap [Moles/Vol] 10 mmol/L Normal 7-17 [facility] Comment on above: Performed By: #### C OMP #### [address] [address] AST [Catalytic activity/Vol] 25 U/L Normal 15-41 [facility] Comment on above: Performed By: #### C OMP #### [address] [address] Bili Total 0.7 mg/dL Normal 0.3-1.2 [facility] Comment on above: Performed By: #### C OMP #### [address] [address] Calcium [Mass/Vol] 9.5 mg/dL Normal 8.5-10.3 [facility] Comment on above: Performed By: #### C OMP #### [address] [address] Chloride [Moles/Vol] 109 mmol/L Normal 98-110 [facility] Comment on above: Performed By: #### C OMP #### [address] [address] CO2 [Moles/Vol] 26 mmol/L Normal 22-32 [facility] Comment on above: Performed By: #### C OMP #### [address] [address] Creatinine [Mass/Vol] 1.08 mg/dL High 0.44-1.03 [facility] Comment on above: Performed By: #### C OMP #### [address] [address] Glucose [Mass/Vol] 97 mg/dL Normal 70-99 [facility] Comment on above: Performed By: #### C OMP #### [address] [address] Potassium [Moles/Vol] 3.9 mmol/L Normal 3.4-4.8 [facility] Comment on above: Performed By: #### C OMP #### [address] [address] Protein [Mass/Vol] 7.8 g/dL Normal 6.5-8.1 [facility] Comment on above: Performed By: #### C OMP #### [address] [address] Sodium [Moles/Vol] 141 mmol/L Normal 133-142 [facility] Comment on above: Performed By: #### C OMP #### [address] [address] Urea nitrogen [Mass/Vol] 8 mg/dL Normal 8-26 [facility] Comment on above: Performed By: #### C OMP #### [address] [address] Urea nitrogen/Creatinine [Mass ratio] 7.4 mg/mg Low 10.0-20.0 [facility] Comment on above: Performed By: #### C OMP #### [address] [address] Diff Autoon 04-21-2023 Baso Absolute 0.0 x10*3/mcL Normal 0.0-0.2 [facility] Comment on above: Performed By: #### . Automated Diff #### [address] [address] Basophils/100 WBC (Bld) 0.4 % Normal 0.0-1.5 [facility] Comment on above: Performed By: #### . Automated Diff #### [address] [address] Eos Absolute 0.1 x10*3/mcL Normal 0.0-0.4 [facility] Comment on above: Performed By: #### . Automated Diff #### [address] [address] Eosinophils/100 WBC (Bld) 1.3 % Normal 0.0-5.4 [facility] Comment on above: Performed By: #### . Automated Diff #### [address] [address] Lymph Absolute 2.3 x10*3/mcL Normal 1.0-4.8 [facility] Comment on above: Performed By: #### . Automated Diff #### [address] [address] Lymphocytes/100 WBC (Bld) 37.8 % Normal 27.2-40.8 [facility] Comment on above: Performed By: #### . Automated Diff #### [address] [address] Shannon Absolute 0.4 x10*3/mcL Normal 0.1-1.1 [facility] Comment on above: Performed By: #### . Automated Diff #### [address] [address] Monocytes/100 WBC (Bld) 5.8 % Normal 3.7-11.9 [facility] Comment on above: Performed By: #### . Automated Diff #### [address] [address] Neutro Absolute 3.4 x10*3/mcL Normal 1.8-7.7 [facility] Comment on above: Performed By: #### . Automated Diff #### [address] [address] Neutro Auto 54.7 % Normal 47.2-70.8 [facility] Comment on above: Performed By: #### . Automated Diff #### [address] [address] Lipid Panelon 04-21-2023 Cholesterol in LDL [Mass/Vol] 140 mg/dL High 0-99 [facility] Comment on above: Result Comment: The equation being used in this calculation is LDL = (Chol - HDL) - (Trig / 5) The optimal value of LDL for individual patients may vary. The patient's history of Artherosclerosis and other cardiac risk factors should be considered. Performed By: #### L CM #### [address] [address] Cardiac Risk 4.4 Normal [facility] Comment on above: Result Comment: Men Women 1/2 Average 3.43 3.27 Average 4.97 4.44 2x Average 9.55 7.05 3x Average 23.99 11.04 Performed By: #### L CM #### [address] [address] Cholesterol [Mass/Vol] 198 mg/dL Normal 25-199 [facility] Comment on above: Result Comment: 0 - 17 years of age: Desirable 0-170 Borderline High 170-199 High >=200 18 years and older: Acceptable <200 Borderline High 200-239 High >=240 Performed By: #### L CM #### [address] [address] Cholesterol in HDL [Mass/Vol] 45.2 mg/dL Normal 40.0-60.0 [facility] Comment on above: Performed By: #### L CM #### [facility] [address] [place] [address] Cholesterol in VLDL [Mass/Vol] 13 mg/dL Normal 8-39 [facility] Comment on above: Performed By: #### L CM #### [facility] [address] [place] [address] Triglyceride [Mass/Vol] 64 mg/dL Normal [facility] Comment on above: Result Comment: 0 - 17 years of age: Trig 90 - 129 Borderline High Trig => 130 High 18 years and older: Trig 150 - 199 Borderline High Trig 200 - 499 High Trig =>500 Very High Performed By: #### L CM #### [place] [address] [place] [address] Family Medicine Office/Clini c Noteon 04-20-2023 Family Medicine Office/Clinic Note Chief Complaint Wellness History of Present Illness Patient is a 27-year-old female who presents the office today for a work physical for [employer]. 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 She works at the [employer], not using computer often besides being on [...] Historical Pr (more content not included)... Normal [facility] Quick Strepon 10-02-2022 S. pyogenes Org specific cx Ql (Throat) Negative [facility] Other Quick Strep [facility] Other COVID19(IDNOW)on 11-30-2019 COVID19(IDNOW) NOT DETECTED Normal NOT DETECTED [facility] Comment on above: Result Comment: Nega tive results do not preclude SARS-CoV-2 infection and should not be used as the sole basis for treatiment or other patient management. ENHANCED CONTACT, AND DROPLET ISOLATION IS REQUIRED FOR INPATIENTS WITH SARS-CoV-2. Performed By: #### C OVID19(IDNOW) #### [facility] [address] [place] [address] Age at specimen collection = Normal [facility] Comment on above: Performed By: #### C OVID19(IDNOW) #### [facility] [address] [facility] [address] [place] [id number] Hematologyon 05-11-2019 Basophils (Bld) [#/Vol] 0.0 10*3/uL 0.0-0.1 [employer] Basophils/100 WBC (Bld) 0.40 % 0.0-1.0 [employer] Eosinophils (Bld) [#/Vol] 0.10 10*3/uL 0.0-0.5 [facility] Eosinophils/100 WBC (Bld) 1.30 % 0.0-7.0 [facility] Hematocrit (Bld) [Volume fraction] 41.30 % 35.7-47.1 [employer] Hemoglobin (Bld) [Mass/Vol] 14.10 g/dL 11.9-15.7 [facility] Lymphocytes (Bld) [#/Vol] 2.20 10*3/uL 0.9-3.1 [facility] Lymphocytes/100 WBC (Bld) 29.30 % 15.0-46.0 [employer] MCH (RBC) [Entitic mass] 29.90 pg 23.2-33.3 [facility] MCV (RBC) [Entitic vol] 87.50 fL 83.4-101.4 [facility] Monocytes (Bld) [#/Vol] 0.60 10*3/uL 0.3-1.0 [facility] Monocytes/100 WBC (Bld) 8.60 % 4.0-12.0 [facility] Neutrophils (Bld) [#/Vol] 4.50 10*3/uL 1.8-7.9 [facility] [employer] [facility] [employer] Neutrophils/100 WBC (Bld) 60.0 % 43.0-76.0 [facility] [employer] [facility] Platelets (Bld) [#/Vol] 160.0 10*3/uL 150-400 [facility] [employer] [facility] RBC (Bld) [#/Vol] 4.720 10*6/uL 3.72-5.24 [facility] [employer] WBC (Bld) [#/Vol] 7.40 10*3/uL 3.9-10.3 [facility] [employer] [facility] Otheron 05-11-2019 Erythrocyte distribution width (RBC) [Ratio] 12.10 % 11.5-15.5 [facility] [employer] [facility] Immature granulocytes (Bld) [#/Vol] 0.030 10*3/uL 0.00-0.06 [facility] [employer] [facility] Immature granulocytes/100 WBC (Bld) 0.40 % 0.0-0.5 [facility] [employer] [facility] MCHC (RBC) [Mass/Vol] 34.10 g/dL 32.0-36.0 [facility] [employer] Platelet mean volume (Bld) [Entitic vol] 11.10 fL 8.3-11.5 [facility] [employer] [facility] COMMENT [place] [employer] [facility] <9.0 0.0-8.9 [facility] [employer] 303.0 0.0-17.9 [employer] <36.0 0.0-35.9 [place] [facility] [employer] 38.9 0.0-17.[address] [facility] Thyroidon 05-11-2019 TSH Qn 1.96 m[IU]/L 0.50-4.[address] [facility] Basic Metabolic Profon 04-20 (cont.) Normal [facility] Comment on above: Result Comment: Aver age GFR for 20-29 years old: 116 mL/min/1.73sq mChronic Kidney Disease: <60 mL/min/1.73sq mKidney failure: <15 mL/min/1.73sq meGFR calculated using average adult body mass. Additional eGFR calculator available at:http://www.Kutuan/multiple_crcl_2012.htm Performed By: #### B MP, CBC ####[address] [place] [address] Anion gap 3 molar conc 11 mmol/L Normal 9-17 [facility] Comment on above: Performed By: #### B MP, CBC ####[address] [place] [address] BUN/CRE Ratio 18 Normal 9-20 [facility] Comment on above: Performed By: #### B MP, CBC ####[address] [place] [address] Calcium mass conc 9.2 mg/dL Normal 8.6-10.4 [facility] Comment on above: Performed By: #### B MP, CBC ####[address] [place] [address] Chloride molar conc 102 mmol/L Normal 98-107 [facility] Comment on above: Performed By: #### B MP, CBC ####[address] [place] [address] CO2 molar conc 26 mmol/L Normal 20-31 [facility] Comment on above: Performed By: #### B MP, CBC ####[address] [place] [address] Creatinine mass conc 0.65 mg/dL Normal 0.50-0.90 [facility] Comment on above: Performed By: #### B MP, CBC ####[address] [place] [address] GFR, Amer >60 Normal >60 [facility] Comment on above: Performed By: #### B MP, CBC ####[address] [place] [address] GFR,non Amer >60 Normal >60 [facility] Comment on above: Performed By: #### B MP, CBC ####[address] [place] [address] Glucose mass conc 89 mg/dL Normal 70-99 [facility] Comment on above: Performed By: #### B MP, CBC ####[address] [place] [address] Potassium molar conc 3.8 mmol/L Normal 3.7-5.3 [facility] Comment on above: Performed By: #### B MP, CBC ####[address] [place] [address] Sodium molar conc 139 mmol/L Normal 135-144 [facility] Comment on above: Performed By: #### B MP, CBC ####[address] [place] [address] Staging: Normal [facility] Comment on above: Result Comment: Stag e 1: Some kidney damage normal GFRStage 2: Mild kidney damage GFR 60-89Stage 3: Moderate kidney damage GFR 30-59Stage 4: Severe kidney damage GFR 15-29Stage 5: Severe kidney damage GFR <15ESRD - chronic treatment by dialysis or transplant Performed By: #### B MP, CBC ####[address] [place] [address] Urea nitrogen mass conc 12 mg/dL Normal 6-20 [facility] Comment on above: Performed By: #### B MP, CBC ####[address] [place] [address] CBCon 04-20-2018 Erythrocyte distribution width Auto Ratio (RBC) 12.1 % Normal 11.8-14.4 [facility] Comment on above: Performed By: #### B MP, CBC ####[address] [place] [address] Hematocrit Auto Volume Fraction (Bld) 42.6 % Normal 36.3-47.1 [facility] Comment on above: Performed By: #### B MP, CBC ####[address] [place] [address] Hemoglobin mass conc (Bld) 14.7 g/dL Normal 11.9-15.1 [facility] Comment on above: Performed By: #### B MP, CBC ####[address] [place] [address] MCH Auto Entitic mass (RBC) 30.2 pg Normal 25.2-33.5 [facility] Comment on above: Performed By: #### B MP, CBC ####[address] [place] [address] MCHC Auto mass conc (RBC) 34.5 g/dL Normal 28.4-34.8 [facility] Comment on above: Performed By: #### B MP, CBC ####[address] [place] [address] MCV Auto Entitic volume (RBC) 87.7 fL Normal 82.6-102.9 [facility] Comment on above: Performed By: #### B MP, CBC ####[address] [place] [address] NRBC Automated 0.0 per 100 WBC Normal 0.0 [facility] Comment on above: Performed By: #### B MP, CBC ####[address] [place] [address] Platelet mean volume Auto Entitic volume (Bld) 10.8 fL Normal 8.1-13.5 [facility] Comment on above: Performed By: #### B MP, CBC ####[address] [place] [address] Platelets Auto #/vol (Bld) 142 10*3/uL Normal 138-453 [facility] Comment on above: Performed By: #### B MP, CBC ####[address] [place] [address] RBC Auto #/vol (Bld) 4.86 10*6/uL Normal 3.95-5.11 [facility] Comment on above: Performed By: #### B MP, CBC ####[address] [place] [address] WBC Auto #/vol (Bld) 6.2 10*3/uL Normal 4.5-13.5 [facility] Comment on above: Performed By: #### B MP, CBC ####[address] [place] [address] HCG, ,Urineon 04-20 HCG.beta subunit ( test) Ql (U) Negative Normal NEG [facility] Comment on above: Result Comment: Spec imens with hCG levels near the threshold of the test (25 mIU/mL) may give a negative or indeterminate result. In such cases, another test should be performed with a new specimen in 48-72 hours. If early is suspected clinically in this setting, correlation with quantitative serum b-hCG level is suggested.[employer] has confirmed the use of plasma for this test. This has not been cleared or approved by the U.S. Food and Drug Administration. The FDA has determined that such clearance is not necessary. Performed By: #### U HCG ####[address] [place] [address] UA w/Reflex Cultureon 2017 Acetoacetic Acid,Ur Negative Normal NEG [facility] Comment on above: Performed By: #### U AX, UMICAO ####[address] [place] [address] Bilirubin, SemiQt,Ur Negative Normal NEG [facility] Comment on above: Performed By: #### U AX, UMICAO ####[address] [place] [address] Color YELLOW Normal YEL [facility] Comment on above: Performed By: #### U AX, UMICAO ####[address] [place] [address] Glucose,Semi-qnt,Ur Negative Normal NEG [facility] Comment on above: Performed By: #### U AX, UMICAO ####[address] [place] [address] Hemoglobin, Ur Negative Normal NEG [facility] Comment on above: Performed By: #### U AX, UMICAO ####[address] [place] [address] Leuckocyte Esterase Negative Normal NEG [facility] Comment on above: Performed By: #### U AX, UMICAO ####[address] [place] [address] Nitrite,Ur Negative Normal [facility] Comment on above: Performed By: #### U AX, UMICAO ####[address] [place] [address] PH,Ur 6.0 Normal 5.0-9.0 [facility] Comment on above: Performed By: #### U AX, UMICAO ####[address] [place] [address] Protein, Semi-qnt,Ur Negative Normal NEG [facility] Comment on above: Performed By: #### U DOMENICO CULVERO ####[address] [place] [address] Spec. [place],Ur 1.025 High 1.010-1.020 [facility] Comment on above: Performed By: #### U AXTABATHAICAO ####[address] [place] [address] Turbidity CLEAR Normal CLEAR [facility] Comment on above: Performed By: #### U TABATHA CULVERICAO ####[address] [place] [address] Urobilinogen,Ur Normal Normal NORM [facility] Comment on above: Performed By: #### TABATHA EDWARDSICAO ####[address] [place] [address] Comment NOT REPORTED Normal [facility] Comment on above: Performed By: #### U TABATHA CULVERICAO ####[address] [place] [address] Urinalysis,Microon 8 ----- Normal [facility] Comment on above: Performed By: #### U TABATHA CULVERICAO ####[address] [place] [address] Bacteria 1+ Abnormal NONE [facility] Comment on above: Performed By: #### U AX UMICAO ####[address] [place] [address] Epithelial cells 2 TO 5 Normal 0-25 [facility] Comment on above: Performed By: #### U AX UMICAO ####[address] [place] [address] RBC Test strip #/vol (U) None Normal 0-2 [facility] Comment on above: Performed By: #### U AX, UMICAO ####[address] [place] [address] Urine WBC's 0 TO 2 Normal 0-5 [facility] Comment on above: Performed By: #### U AX, UMICAO ####[address] [place] [address] Amorphous Sediment NOT REPORTED Normal NONE [facility] Comment on above: Performed By: #### U AX, UMICAO ####[address] [place] [address] Casts NOT REPORTED Normal [facility] Comment on above: Performed By: #### U AX, UMICAO ####[address] [place] [address] Crystals NOT REPORTED Normal NONE [facility] Comment on above: Performed By: #### U AX, UMICAO ####[address] [place] [address] Epithelial, Renal NOT REPORTED Normal 0 [facility] Comment on above: Performed By: #### U AX, UMICAO ####[address] [place] [address] Mucus Strands NOT REPORTED Normal NONE [facility] Comment on above: Performed By: #### U AX, UMICAO ####[address] [place] [address] Other Observations NOT REPORTED Normal NREQ [facility] Comment on above: Performed By: #### U AX, UMICAO ####[address] [place] [address] Trichomonas NOT REPORTED Normal NONE [facility] Comment on above: Performed By: #### U AX, UMICAO ####[address] [place] [address] Yeast NOT REPORTED Normal NONE [facility] Comment on above: Performed By: #### U PALOMO, CADEN ####[address] [place] [address] XR LUMBAR SPINE (2-3 VIEWS)o n [...] by:RIVER Jassoigned by:Phil Messer MD04/20/18inal result Normal [facility] Otheron 03-08-2018 Negative [facility] Otheron 02-03-2018 Negative [facility] Otheron 01-30-2018 Negative [facility] Cardiacon 12-28-2017 Cholesterol [Mass/Vol] 156.0 mg/dL 0-200 [facility] Cholesterol in HDL [Mass/Vol] 54.0 mg/dL 50-100 [facility] Cholesterol in LDL [Mass/Vol] 79.0 mg/dL 0-130 [facility] Triglyceride [Mass/Vol] 116.0 mg/dL 30-150 [facility] Metabolic Panelon 12-28-2017 Albumin [Mass/Vol] 4.70 g/dL 3.7-4.5 [facility] [employer] ALP [Catalytic activity/Vol] 83.0 U/L 31-155 [employer] ALT [Catalytic activity/Vol] 15.0 U/L 0-50 [employer] AST [Catalytic activity/Vol] 19.0 U/L 0-40 [employer] Bilirubin [Mass/Vol] 0.70 mg/dL 0.0-1.0 [facility] [employer] Protein [Mass/Vol] 7.80 g/dL 6.3-7.9 [facility] [employer] Otheron 12-28-2017 Albumin/Globulin [Mass ratio] 1.5 {ratio} 1.0-2.4 [employer] Cholesterol in VLDL [Mass/Vol] 23.0 mg/dL 0-39 [employer] Cholesterol.total/Cho lesterol in HDL [Mass ratio] 3 {ratio} [employer] Negative [employer] CBCon 07-28-2017 Erythrocyte distribution width Auto Ratio (RBC) 11.8 % Normal 11.8-14.4 [facility] Comment on above: Performed By: #### C SEN, CP ####[address] [place] [address] Hematocrit Auto Volume Fraction (Bld) 41.2 % Normal 36.3-47.1 [facility] Comment on above: Performed By: #### C SEN, CP ####[address] [place] [address] Hemoglobin mass conc (Bld) 14.1 g/dL Normal 11.9-15.1 [facility] Comment on above: Performed By: #### C SEN, CP ####[address] [place] [address] MCH Auto Entitic mass (RBC) 28.5 pg Normal 25.2-33.5 [facility] Comment on above: Performed By: #### C BC, CP ####[address] [place] [address] MCHC Auto mass conc (RBC) 34.2 g/dL Normal 28.4-34.8 [facility] Comment on above: Performed By: #### C BC, CP ####[address] [place] [address] MCV Auto Entitic volume (RBC) 83.2 fL Normal 82.6-102.9 [facility] Comment on above: Performed By: #### C SEN, CP ####[address] [place] [address] NRBC Automated 0.0 per 100 WBC Normal 0.0 [facility] Comment on above: Result Comment: Perf ormed at [address] [place] [address] Performed By: #### C SEN, CP ####[address] [place] [address] Platelet mean volume Auto Entitic volume (Bld) 9.9 fL Normal 8.1-13.5 [facility] Comment on above: Performed By: #### C SEN, CP ####[address] [place] [address] Platelets Auto #/vol (Bld) 230 10*3/uL Normal 138-453 [facility] Comment on above: Performed By: #### C SEN, CP ####[address] [place] [address] RBC Auto #/vol (Bld) 4.95 10*6/uL Normal 3.95-5.11 [facility] Comment on above: Performed By: #### C BC, CP ####[address] [place] [address] WBC Auto #/vol (Bld) 11.8 10*3/uL Normal 4.5-13.5 [facility] Comment on above: Performed By: #### C SEN, CP ####[address] [place] [address] Comp Metabolic Profon 2017 (cont.) Normal [facility] Comment on above: Result Comment: Aver age GFR for 20-29 years old: 116 mL/min/1.73sq mChronic Kidney Disease: <60 mL/min/1.73sq mKidney failure: <15 mL/min/1.73sq meGFR calculated using average adult body mass. Additional eGFR calculator available at:http://www.Kutuan/multiple_crcl_2011.htm Performed By: #### C SEN, CP ####[address] [place] [address] Albumin mass conc 4.5 g/dL Normal 3.5-5.2 [facility] Comment on above: Performed By: #### C SEN, CP ####[address] [place] [address] Albumin/Globulin mass ratio 1.3 {ratio} Normal 1.0-2.5 [facility] Comment on above: Performed By: #### C SEN, CP ####[address] [place] [address] Alkaline Phos 81 U/L Normal 35-104 [facility] Comment on above: Performed By: #### C SEN, CP ####[address] [place] [address] ALT enzyme act/vol 23 U/L Normal 5-33 [facility] Comment on above: Performed By: #### C BC, CP ####[address] [place] [address] Anion gap 3 molar conc 13 mmol/L Normal 9-17 [facility] Comment on above: Performed By: #### C BC, CP ####[address] [place] [address] AST enzyme act/vol 23 U/L Normal <32 [facility] Comment on above: Performed By: #### C BC, CP ####[address] [place] [address] Bilirubin Ql (U) 0.23 mg/dL Low 0.3-1.2 [facility] Comment on above: Performed By: #### C BC, CP ####[address] [place] [address] BUN/CRE Ratio 17 Normal 9-20 [facility] Comment on above: Performed By: #### C BC, CP ####[address] [place] [address] Calcium mass conc 9.5 mg/dL Normal 8.6-10.4 [facility] Comment on above: Performed By: #### C BC, CP ####[address] [place] [address] Chloride molar conc 101 mmol/L Normal 98-107 [facility] Comment on above: Performed By: #### C BC, CP ####[address] [place] [address] CO2 molar conc 23 mmol/L Normal 20-31 [facility] Comment on above: Performed By: #### C BC, CP ####[address] [place] [address] Creatinine mass conc 0.69 mg/dL Normal 0.50-0.90 [facility] Comment on above: Performed By: #### C BC, CP ####[address] [place] [address] GFR, Amer >60 Normal >60 [facility] Comment on above: Performed By: #### C BC, CP ####[address] [place] [address] GFR,non Amer >60 Normal >60 [facility] Comment on above: Performed By: #### C BC, CP ####[address] [place] [address] Glucose mass conc 99 mg/dL Normal 70-99 [facility] Comment on above: Performed By: #### C BC, CP ####[address] [place] [address] Potassium molar conc 3.8 mmol/L Normal 3.7-5.3 [facility] Comment on above: Performed By: #### C BC, CP ####[address] [place] [address] Protein mass conc 8.0 g/dL Normal 6.4-8.3 [facility] Comment on above: Performed By: #### C BC, CP ####[address] [place] [address] Sodium molar conc 137 mmol/L Normal 135-144 [facility] Comment on above: Performed By: #### C BC, CP ####[address] [place] [address] Staging: Normal [facility] Comment on above: Result Comment: Stag e 1: Some kidney damage normal GFRStage 2: Mild kidney damage GFR 60-89Stage 3: Moderate kidney damage GFR 30-59Stage 4: Severe kidney damage GFR 15-29Stage 5: Severe kidney damage GFR <15ESRD - chronic treatment by dialysis or transplantPerformed at [address] [place] [address] Performed By: #### C BC, CP ####[address] [place] [address] Urea nitrogen mass conc 12 mg/dL Normal 6-20 [facility] Comment on above: Performed By: #### C BC, CP ####[address] [place] [address]([phone]) HCG, ,Urineon 07-28 HCG.beta subunit ( test) Ql (U) Negative Normal NEG [facility] Comment on above: Result Comment: Spec imens with hCG levels near the threshold of the test (25 mIU/mL) may give a negative or indeterminate result. In such cases, another test should be performed with a new specimen in 48-72 hours. If early is suspected clinically in this setting, correlation with quantitative serum b-hCG level is suggested.[facility] has confirmed the use of plasma for this test. This has not been cleared or approved by the U.S. Food and Drug Administration. The FDA has determined that such clearance is not necessary.Performed at [address] [place], [place] [id number] [phone] Performed By: #### U HCG, UA ####[address] [place] [address] Urinalysis, Routineon 2017 Acetoacetic Acid,Ur Negative Normal NEG [facility] Comment on above: Performed By: #### U HCG, UA ####[address] [place], [place] [id number]([phone] Bilirubin, SemiQt,Ur Negative Normal NEG [facility] Comment on above: Performed By: #### U HCG, UA ####[address] [place] [address] Color YELLOW Normal YEL [facility] Comment on above: Performed By: #### U HCG, UA ####[address] [place], [place] [id number] Glucose,Semi-qnt,Ur Negative Normal NEG [facility] Comment on above: Performed By: #### U HCG, UA ####[address] [place] [address] Hemoglobin, Ur Negative Normal NEG [facility] Comment on above: Performed By: #### U HCG, UA ####[address] [place] [address] Leuckocyte Esterase Negative Normal NEG [facility] Comment on above: Result Comment: Perf ormed at [address] [place] [address] Performed By: #### U HCG, UA ####[address] [place] [address] Nitrite,Ur Negative Normal NEG [facility] Comment on above: Performed By: #### U HCG, UA ####[address] [place] [address] PH,Ur 6.0 Normal 5.0-9.0 [facility] Comment on above: Performed By: #### U HCG, UA ####[address] [place] [address] Protein mass conc Negative Normal NEG [facility] Comment on above: Performed By: #### U HCG, UA ####[address] [place] [address] Spec. [place],Ur 1.025 High 1.010-1.020 [facility] Comment on above: Performed By: #### U HCG, UA ####[address] [place] [address] Turbidity CLEAR Normal CLEAR [facility] Comment on above: Performed By: #### U HCG, UA ####[address] [place] [address] Urobilinogen,Ur Normal Normal NORM [facility] Comment on above: Performed By: #### U HCG, UA ####[address] [place] [address] Comment NOT REPORTED Normal [facility] Comment on above: Performed By: #### U HCG, UA ####[address] [place] [address] Cardiacon 06-07-2016 Cholesterol mass conc 175.0 mg/dL 0-200 [employer] Triglyceride mass conc 58.0 mg/dL 30-150 [employer] Hematologyon 06-07-2016 Basophils #/vol (Bld) 0.0 10*3/uL 0.0-0.1 [employer] Basophils/100 WBC (Bld) 0.30 % 0.0-1.0 [employer] Eosinophils #/vol (Bld) 0.10 10*3/uL 0.0-0.5 [employer] Eosinophils/100 WBC (Bld) 1.80 % 0.0-7.0 [employer] Hematocrit Volume Fraction (Bld) 40.50 % 35.7-47.1 [facility] Hemoglobin mass conc (Bld) 13.60 g/dL 11.9-15.7 [facility] Lymphocytes #/vol (Bld) 3.40 10*3/uL 0.9-3.1 [employer] Lymphocytes/100 WBC (Bld) 41.0 % 28.0-42.0 [facility] MCH Entitic mass (RBC) 29.60 pg 23.2-33.3 [facility] MCV Entitic volume (RBC) 88.40 fL 82.0-98.4 [facility] Monocytes #/vol (Bld) 0.60 10*3/uL 0.3-1.0 B [facility] [employer] Monocytes/100 WBC (Bld) 7.40 % 4.0-12.0 [facility] [employer] Neutrophils #/vol (Bld) 4.20 10*3/uL 1.8-7.9 [facility] [employer] Neutrophils/100 WBC (Bld) 49.50 % 45.6-68.4 [facility] [employer] Platelets #/vol (Bld) 225.0 10*3/uL 150-400 [facility] [employer] RBC #/vol (Bld) 4.580 10*6/uL 3.72-5.24 [facility] [employer] WBC #/vol (Bld) 8.30 10*3/uL 3.9-10.3 [facility] [employer] Metabolic Panelon 06-07-2016 Albumin mass conc 4.40 g/dL 3.7-4.5 [facility] [employer] ALP enzyme act/vol 77.0 U/L 31-155 [facility] [employer] ALT enzyme act/vol 17.0 U/L 0-50 [facility] [employer] AST enzyme act/vol 21.0 U/L 0-40 [facility] [employer] Bilirubin mass conc 0.40 mg/dL 0.0-1.0 [facility] [employer] Protein mass conc 7.40 g/dL 6.3-7.9 [facility] [employer] Otheron 06-07-2016 Albumin/Globulin mass ratio 1.5 {ratio} 1.0-2.4 [facility] [employer] Erythrocyte distribution width Ratio (RBC) 11.80 % 11.5-15.5 [facility] [employer] MCHC mass conc (RBC) 33.50 g/dL 32.0-36.0 [facility] [employer] Platelet mean volume Entitic volume (Bld) 9.0 fL 7.4-10.4 [facility] [employer] Negative [facility] [employer] Otheron 04-23-2016 Negative [facility] [employer] Otheron 03-19-2016 Negative [place] [employer] Cardiacon 02-12-2016 Cholesterol mass conc 175.0 mg/dL 0-200 Bl [facility] [employer] Triglyceride mass conc 59.0 mg/dL 30-150 [facility] [employer] Hematologyon 02-12-2016 Basophils #/vol (Bld) 0.10 10*3/uL 0.0-0.1 B [facility] [employer] Basophils/100 WBC (Bld) 0.90 % 0.0-1.0 [facility] [employer] Eosinophils #/vol (Bld) 0.10 10*3/uL 0.0-0.5 [facility] [employer] Eosinophils/100 WBC (Bld) 1.70 % 0.0-7.0 [facility] [employer] Hematocrit Volume Fraction (Bld) 41.60 % 35.7-47.1 [facility] [employer] Hemoglobin mass conc (Bld) 14.0 g/dL 11.9-15.7 [facility] [employer] Lymphocytes #/vol (Bld) 2.30 10*3/uL 0.9-3.1 [facility] [facility] Lymphocytes/100 WBC (Bld) 36.10 % 28.0-42.0 [facility] [employer] [facility] [employer] MCH Entitic mass (RBC) 29.40 pg 23.2-33.3 [facility] [employer] [facility] [employer] MCV Entitic volume (RBC) 87.60 fL 82.0-98.4 [facility] [employer] [facility] [employer] Monocytes #/vol (Bld) 0.50 10*3/uL 0.3-1.0 B [facility] [employer] Monocytes/100 WBC (Bld) 7.20 % 4.0-12.0 [facility] [employer] [facility] Neutrophils #/vol (Bld) 3.30 10*3/uL 1.8-7.9 [facility] [employer] Neutrophils/100 WBC (Bld) 54.10 % 45.6-68.4 [facility] [employer] Platelets #/vol (Bld) 180.0 10*3/uL 150-400 [facility] RBC #/vol (Bld) 4.750 10*6/uL 3.72-5.24 [facility] [employer] WBC #/vol (Bld) 6.30 10*3/uL 3.9-10.3 [facility] [employer] Metabolic Panelon 02-12-2016 Albumin mass conc 4.50 g/dL 3.7-4.5 [facility] [employer] ALP enzyme act/vol 79.0 U/L 31-155 [facility] [employer] ALT enzyme act/vol 21.0 U/L 0-50 Abdulaziz shayla [employer] [facility] AST enzyme act/vol 22.0 U/L 0-40 [facility] [employer] [facility] Bilirubin mass conc 0.40 mg/dL 0.0-1.0 [facility] [employer] Protein mass conc 7.0 g/dL 6.3-7.9 [facility] [employer] Otheron 02-12-2016 Albumin/Globulin mass ratio 1.8 {ratio} 1.0-2.4 [employer] Erythrocyte distribution width Ratio (RBC) 12.10 % 11.5-15.5 [employer] MCHC mass conc (RBC) 33.60 g/dL 32.0-36.0 [facility] [employer] Platelet mean volume Entitic volume (Bld) 9.70 fL 7.4-10.4 [employer] Negative [employer] Vital Signs Date Time Vital Sign Value Performing Clinician Facility 03-14-2024 13:53-0500 Body mass index (BMI) [Ratio] 20.6 kg/m2 [employer] Work Phone: [facility] 03-14-2024 13:53-0500 Body weight 49.44 kg Eleazar Vijaya DO Work Phone: [facility] 03-14-2024 13:53-0500 Diastolic blood pressure 72 mm[Hg] Eleazar Vijaya [employer] Work Phone: [facility] 03-14-2024 13:53-0500 Systolic blood pressure 110 mm[Hg] Eleazar Vijaya [employer] Work Phone: [facility] 02-08-2024 13:21-0400 Body height 154.9 cm [employer] Work Phone: [facility] 02-08-2024 13:21-0400 Body mass index (BMI) [Ratio] 23.05 kg/m2 Eleazar Vijaya DO Work Phone: [facility] 02-08-2024 13:21-0400 Body weight 55.34 kg Eleazar Vijaya DO Work Phone: [facility] 02-08-2024 13:21-0400 Diastolic blood pressure 64 mm[Hg] Eleazar Vijaya DO Work Phone: [facility] 02-08-2024 13:21-0400 Systolic blood pressure 102 mm[Hg] Eleazar Vijaya DO Work Phone: [facility] 02-02-2024 12:39-0400 Body height 154.94 cm [facility] 02-02-2024 12:39-0400 Body mass index (BMI) [Ratio] 22.4 kg/m2 [facility] 02-02-2024 12:39-0400 Body temperature 98.3 [degF] [facility] 02-02-2024 12:39-0400 Body weight 54 kg [facility] 02-02-2024 12:39-0400 Diastolic blood pressure 64 mm[Hg] [facility] 02-02-2024 12:39-0400 Heart rate 82 /min [facility] 02-02-2024 12:39-0400 Respiratory rate 16 /min [facility] 02-02-2024 12:39-0400 SaO2% (BldA) [Mass fraction] 98 % [facility] 02-02-2024 12:39-0400 Systolic blood pressure 108 mm[Hg] [facility] 01-24-2024 11:38-0400 Body height 154.94 cm [facility] 01-24-2024 11:38-0400 Body mass index (BMI) [Ratio] 22.6 kg/m2 [facility] 01-24-2024 11:38-0400 Body temperature 96.1 [degF] [facility] 01-24-2024 11:38-0400 Body weight 54.43 kg [facility] 01-24-2024 11:38-0400 Diastolic blood pressure 60 mm[Hg] [facility] 01-24-2024 11:38-0400 Heart rate 75 /min [facility] 01-24-2024 11:38-0400 SaO2% (BldA) [Mass fraction] 98 % [facility] 01-24-2024 11:38-0400 Systolic blood pressure 114 mm[Hg] [facility] 01-03-2024 11:26-0400 Body height 154.94 cm [facility] 01-03-2024 11:26-0400 Body mass index (BMI) [Ratio] 23.2 kg/m2 [facility] 01-03-2024 11:26-0400 Body temperature 97.8 [degF] [facility] 01-03-2024 11:26-0400 Body weight 55.79 kg [facility] 01-03-2024 11:26-0400 Diastolic blood pressure 68 mm[Hg] [facility] 01-03-2024 11:26-0400 Heart rate 90 /min [facility] 01-03-2024 11:26-0400 SaO2% (BldA) [Mass fraction] 98 % [facility] 01-03-2024 11:26-0400 Systolic blood pressure 110 mm[Hg] [facility] 07-21-2023 10:20-0400 Body height 154.94 cm [facility] 07-21-2023 10:20-0400 Body mass index (BMI) [Ratio] 27.8 kg/m2 [facility] 07-21-2023 10:20-0400 Body weight 66.67 kg [facility] 07-21-2023 10:20-0400 Diastolic blood pressure 78 mm[Hg] [facility] 07-21-2023 10:20-0400 Heart rate 61 /min [facility] 07-21-2023 10:20-0400 SaO2% (BldA) [Mass fraction] 99 % [facility] 07-21-2023 10:20-0400 Systolic blood pressure 112 mm[Hg] [facility] 03-26-2023 11:30-0500 Body height 154.94 cm Jodie Portillo Other [facility] Other 03-26-2023 11:30-0500 Body mass index (BMI) [Ratio] 27.96 kg/m2 Jodie Portillo Other [facility] Other 03-26-2023 11:30-0500 Body temperature 98.8 [degF] Jodie Portillo Other [facility] Other 03-26-2023 11:30-0500 Body weight 67.13 kg Jodie Portillo Other [facility] Other 03-26-2023 11:30-0500 Diastolic blood pressure 76 mm[Hg] Jodie Portillo Other [facility] Other 03-26-2023 11:30-0500 Respiratory rate 18 /min Jodie Portillo Other [facility] Other 03-26-2023 11:30-0500 SaO2% (BldA) [Mass fraction] 98 % Jodie Portillo Other [facility] Other 03-26-2023 11:30-0500 Systolic blood pressure 118 mm[Hg] Jodie Portillo Other [facility] Other 10-02-2022 12:25-0400 Body height 154.94 cm Deidra Jimenez Other [facility] Other 10-02-2022 12:25-0400 Body mass index (BMI) [Ratio] 27.43 kg/m2 Deidra Jimenez Other [facility] Other 10-02-2022 12:25-0400 Body temperature 97.7 [degF] Deidra Jimenez Other [facility] Other 10-02-2022 12:25-0400 Body weight 65.86 kg Deidra Jimenez Other [facility] Other 10-02-2022 12:25-0400 Respiratory rate 18 /min Deidra Jimenez Other [facility] Other 10-02-2022 12:25-0400 SaO2% (BldA) [Mass fraction] 97 % Deidra Jimenez Other [facility] Other 05-21-2019 10:42-0500 BMI (Body Mass Index) 23.41 kg/m2 Lyric Pérez [employer] [facility] 05-21-2019 10:42-0500 Body Temperature 98.8 [degF] [facility] 05-21-2019 10:42-0500 Body weight 58.06 kg Lyric Pérez [facility] 05-21-2019 10:42-0500 BP Diastolic 68 mm[Hg] Lyric Pérez Rene [employer] [facility] 05-21-2019 10:42-0500 BP Systolic 94 mm[Hg] Lyric Pérez Rene [employer] [facility] 05-21-2019 10:42-0500 BSA (Body Surface Area) 1.59 m2 Lyric Beto Rene [employer] [facility] 05-21-2019 10:42-0500 Height 157.48 cm Lyric Beto Rene [employer] [facility] 05-21-2019 10:42-0500 Pulse (Heart Rate) 90 /min Lyric Beto Villarreal [employer] 05-11-2019 14:48-0500 BMI (Body Mass Index) 22.95 kg/m2 [facility] [employer] 05-11-2019 14:48-0500 Body Temperature 98.8 [degF] [facility] [employer] 05-11-2019 14:48-0500 Body weight 56.93 kg [facility] Clemente [employer] 05-11-2019 14:48-0500 BP Diastolic 66 mm[Hg] [facility] Clemente [employer] 05-11-2019 14:48-0500 BP Systolic 110 mm[Hg] [facility] Rene Clement[facility] [employer] 05-11-2019 14:48-0500 BSA (Body Surface Area) 1.58 m2 [facility] Rene [employer] 05-11-2019 14:48-0500 Height 157.48 cm [facility] Clemente [facility] 05-11-2019 14:48-0500 Pulse (Heart Rate) 72 /min [facility] [employer] 04-27-2019 15:18-0500 BMI (Body Mass Index) 23.52 kg/m2 Lyric P[employer]rez [employer] 04-27-2019 15:18-0500 Body Temperature 98.9 [degF] Lyric KimGrand [employer]ounds[employer] 04-27-2019 15:18-0500 Body weight 56.47 kg Lyric Pérez [employer] 04-27-2019 15:18-0500 BP Diastolic 60 mm[Hg] Lyric Pérez [employer] 04-27-2019 15:18-0500 BP Systolic 112 mm[Hg] Lyric [employer] 04-27-2019 15:18-0500 BSA (Body Surface Area) 1.56 m2 Lyric Rene [employer] 04-27-2019 15:18-0500 Height 154.94 cm Lyric Pérez [employer] 04-27-2019 15:18-0500 Pulse (Heart Rate) 80 /min Lyric Villarreal [employer] 04-09-2019 13:38-0500 BMI (Body Mass Index) 22.77 kg/m2 Lyric Pérez [employer] 04-09-2019 13:38-0500 Body Temperature 99.4 [degF] Lyric [employer]arreal[employer]trecht [employer] 04-09-2019 13:38-0500 Body weight 54.66 kg Lyric Pérez [employer] 04-09-2019 13:38-0500 BP Diastolic 70 mm[Hg] Lyric Pérez [employer] 04-09-2019 13:38-0500 BP Systolic 120 mm[Hg] Lyric Pérez [employer] 04-09-2019 13:38-0500 BSA (Body Surface Area) 1.53 m2 Lyric Pérez [employer] 04-09-2019 13:38-0500 Height 154.94 cm Lyric Pérez [employer] 04-09-2019 13:38-0500 Pulse (Heart Rate) 82 /min Lyric Villarreal [employer] 02-06-2019 16:41-0400 BMI (Body Mass Index) 22.77 kg/m2 Lyric Pérez [employer] 02-06-2019 16:41-0400 Body Temperature 98.8 [degF] Lyric Rene Clemente [employer] 02-06-2019 16:41-0400 Body weight 54.66 kg Lyric Pérez [employer] 02-06-2019 16:41-0400 BP Diastolic 70 mm[Hg] Lyric [employer] 02-06-2019 16:41-0400 BP Systolic 112 mm[Hg] Lyric Pérez [employer] 02-06-2019 16:41-0400 BSA (Body Surface Area) 1.53 m2 Lyric Pérez [employer] 02-06-2019 16:41-0400 Height 154.94 cm Lyric Pérez [employer] 02-06-2019 16:41-0400 Pulse (Heart Rate) 72 /min Lyric rouseRVX 10-31-2018 16:58-0400 BMI (Body Mass Index) 23.43 kg/m2 [facility] [employer] 10-31-2018 16:58-0400 Body weight 56.25 kg [facility] Rene Clemente [employer] 10-31-2018 16:58-0400 BP Diastolic 60 mm[Hg] [facility] Rene Clemente [employer] 10-31-2018 16:58-0400 BP Systolic 112 mm[Hg] [facility] Rene [facility] [employer] 10-31-2018 16:58-0400 BSA (Body Surface Area) 1.56 m2 [facility] [employer] 10-31-2018 16:58-0400 Height 154.94 cm [facility] Clemente [facility] 10-31-2018 16:58-0400 Pulse (Heart Rate) 72 /min [facility] Cardoza [employer] 10-31-2018 16:58-0400 Weight 56.25 kg [facility] Clemente [facility] 08-28-2018 15:49-0400 BMI (Body Mass Index) 22.67 kg/m2 [facility] Rene [employer] 08-28-2018 15:49-0400 Body Temperature 98.7 [degF] Hima Andrade [employer] 08-28-2018 15:49-0400 Body weight 54.43 kg [facility] Clemente [employer] 08-28-2018 15:49-0400 BP Diastolic 60 mm[Hg] [facility] Clemente [employer] 08-28-2018 15:49-0400 BP Systolic 120 mm[Hg] [facility] Clemente [employer] 08-28-2018 15:49-0400 BSA (Body Surface Area) 1.53 m2 [facility] Rene [employer] 08-28-2018 15:49-0400 Height 154.94 cm [facility] Clemente [facility] 08-28-2018 15:49-0400 Pulse (Heart Rate) 66 /min [facility] Cardoza [employer] 08-28-2018 15:49-0400 Weight 54.43 kg [facility] Clemente [employer] 02-09-2018 12:10-0400 BMI (Body Mass Index) 23.78 kg/m2 [facility] Luna [employer] 02-09-2018 12:10-0400 Body Temperature 98.1 [degF] [facility] chawla [employer] 02-09-2018 12:10-0400 Body weight 58.97 kg [facility] Clemente [facility] 02-09-2018 12:10-0400 BP Diastolic 80 mm[Hg] [facility] Clemente [employer] 02-09-2018 12:10-0400 BP Systolic 104 mm[Hg] [facility] Clemente [employer] 02-09-2018 12:10-0400 BSA (Body Surface Area) 1.61 m2 [facility] Rene [employer] 02-09-2018 12:10-0400 Height 157.48 cm [facility] Clemente [employer] 02-09-2018 12:10-0400 Pulse (Heart Rate) 64 /min Hima ma [employer] 02-09-2018 12:10-0400 Weight 58.97 kg [facility] Clemente [employer] 01-11-2018 15:19-0400 BMI (Body Mass Index) 23.32 kg/m2 [facility] Rene [employer] 01-11-2018 15:19-0400 Body weight 57.83 kg Hima Clemente [employer] 01-11-2018 15:19-0400 BP Diastolic 68 mm[Hg] [facility]ima Clemente [employer] 01-11-2018 15:19-0400 BP Systolic 106 mm[Hg] [facility]ima Clemente [employer] 01-11-2018 15:19-0400 BSA (Body Surface Area) 1.59 m2 [facility]ima Rene [employer] 01-11-2018 15:19-0400 Height 157.48 cm Hima Rene [employer] 01-11-2018 15:19-0400 Pulse (Heart Rate) 76 /min [facility] Cardoza [employer] 01-11-2018 15:19-0400 Weight 57.83 kg Hima Rene [employer] 08-01-2017 09:57-0400 BMI (Body Mass Index) 23.59 kg/m2 [facility] Rene [employer] 08-01-2017 09:57-0400 Body weight 58.51 kg Hima Rene [employer] 08-01-2017 09:57-0400 BP Diastolic 60 mm[Hg] Hima Rene [employer] 08-01-2017 09:57-0400 BP Systolic 94 mm[Hg] Hima Rene [employer] 08-01-2017 09:57-0400 BSA (Body Surface Area) 1.6 m2 [facility] Rene [employer] 08-01-2017 09:57-0400 Height 157.48 cm Hima Rene [employer] 08-01-2017 09:57-0400 Pulse (Heart Rate) 80 /min Hima Cardoza [employer] 08-01-2017 09:57-0400 Weight 58.51 kg Hima Rene [employer] 01-13-2017 12:02-0400 BMI (Body Mass Index) 22.59 kg/m2 [facility] Rene [employer] 01-13-2017 12:02-0400 Body weight 56.02 kg Hima Clemente [employer] 01-13-2017 12:02-0400 BP Diastolic 76 mm[Hg] [facility] Clemente [employer] 01-13-2017 12:02-0400 BP Systolic 122 mm[Hg] [facility]ima Clemente [employer] 01-13-2017 12:02-0400 BSA (Body Surface Area) 1.57 m2 [facility] Rene [employer] 01-13-2017 12:02-0400 Height 157.48 cm Hima Rene [employer] 01-13-2017 12:02-0400 Pulse (Heart Rate) 72 /min Hima ma [employer] 01-13-2017 12:02-0400 Weight 56.02 kg Hima Clemente [employer] 10-29-2016 16:57-0400 BMI (Body Mass Index) 22.13 kg/m2 [facility]ima Rene [employer] 10-29-2016 16:57-0400 Body weight 54.89 kg Hima Clemente [employer] 10-29-2016 16:57-0400 BP Diastolic 60 mm[Hg] Hima Rene [facility] [employer] 10-29-2016 16:57-0400 BP Systolic 104 mm[Hg] Hima Clemente [employer] 10-29-2016 16:57-0400 BSA (Body Surface Area) 1.55 m2 [facility] Rene [employer] 10-29-2016 16:57-0400 Height 157.48 cm Hima Rene [employer] 10-29-2016 16:57-0400 Pulse (Heart Rate) 68 /min Hima Rene [employer] 10-29-2016 16:57-0400 Weight 54.89 kg Hima Rene [employer] 01-28-2016 17:46-0400 BMI (Body Mass Index) 21.67 kg/m2 [facility] Rene [employer] 01-28-2016 17:46-0400 Body weight 53.75 kg Hima Rene [employer] 01-28-2016 17:46-0400 BP Diastolic 64 mm[Hg] Hima Rene [employer] 01-28-2016 17:46-0400 BP Systolic 94 mm[Hg] Hima Rene [employer] 01-28-2016 17:46-0400 BSA (Body Surface Area) 1.53 m2 [facility]ima Rene [employer] 01-28-2016 17:46-0400 Height 157.48 cm Hima Rene [employer] 01-28-2016 17:46-0400 Pulse (Heart Rate) 64 /min Hima Cardoza [employer] 01-28-2016 17:46-0400 Weight 53.75 kg Hima Rene [employer] 05-30-2015 16:50-0500 BMI (Body Mass Index) 21.22 kg/m2 [facility] [employer] 05-30-2015 16:50-0500 Body Temperature 98 [degF] Hima Andrade [employer] 05-30-2015 16:50-0500 Body weight 52.62 kg Hima Clemente [facility] 05-30-2015 16:50-0500 BP Diastolic 64 mm[Hg] [facility] Clemente [facility] 05-30-2015 16:50-0500 BP Systolic 90 mm[Hg] Hima Clemente [facility] 05-30-2015 16:50-0500 BSA (Body Surface Area) 1.52 m2 Hima Rene [employer] 05-30-2015 16:50-0500 Height 157.48 cm Hima Rene [employer] 05-30-2015 16:50-0500 Pulse (Heart Rate) 92 /min Hima lowry [employer] 05-30-2015 16:50-0500 Weight 52.62 kg [facility]ima Villarreal[employer]trecht [employer] 04-08-2015 16:01-0500 BMI (Body Mass Index) 21.28 kg/m2 Hima Rene [employer] 04-08-2015 16:01-0500 Body Temperature 98.4 [degF] Hima Andrade [employer] 04-08-2015 16:01-0500 Body weight 51.94 kg Hima [employer]real[employer]tre[employer] 04-08-2015 16:01-0500 BP Diastolic 84 mm[Hg] Hima Clemente [facility] 04-08-2015 16:01-0500 BP Systolic 118 mm[Hg] Hima Rene [employer] 04-08-2015 16:01-0500 BSA (Body Surface Area) 1.5 m2 [facility]ima Rene [employer] 04-08-2015 16:01-0500 Height 156.21 cm Hima Rene [employer] 04-08-2015 16:01-0500 Pulse (Heart Rate) 72 /min Hima Rene [facility] [employer] 04-08-2015 16:01-0500 Weight 51.94 kg Hima Rene [employer] Encounters Encounter Date Encounter Type Care Provider Facility Start: 03-14-2024 End: 03-14-2024 Bamboo flowsheet Eleazar Vijaya DO Work Phone: [facility] Start: 03-14-2024 End: 03-14-2024 Bamboo flowsheet Eleazar Vijaya DO Work Phone: [facility] Start: 03-14-2024 End: 03-14-2024 Office outpatient visit 15 minutes Eleazar Vijaya DO Work Phone: [facility] Comment on above: Losing weight; Missed menses Start: 03-14-2024 End: 03-14-2024 ambulatory ELEAZAR VIJAYA Not Available Start: 03-08-2024 End: 03-08-2024 Clinisync Result Encounter Eleazar Vijaya DO Work Phone: [facility] External Department Unsolicited Start: 03-08-2024 End: 03-08-2024 Clinisync Result Encounter Eleazar Vijaya DO Work Phone: [facility] External [facility] Unsolicited Start: 03-07-2024 End: 03-07-2024 ambulatory Ana Simmons APRN-[place] [facility] Start: 02-28-2024 End: 02-28-2024 Phys/qhp telephone evaluation [...] Available Start: 02-02-2024 End: 02-02-2024 Departed Referred VETERINARY ATTENDANT Jodie Portillo Work Phone: [facility] [place] Work Phone: Start: 02-02-2024 End: 02-02-2024 ambulatory Jodie Portillo [facility] Work Phone: Start: 02-02-2024 End: 02-02-2024 Patient encounter procedure [facility] Physician [facility] Work Phone: Start: 01-24-2024 End: 01-24-2024 ambulatory [facility] Work Phone: Start: 01-24-2024 End: 01-24-2024 Patient encounter procedure [facility] Physician [facility] Work Phone: Start: 01-24-2024 End: 01-24-2024 ambulatory Mike Hilario Karen DO Facility:[facility] Start: 01-19-2024 Non-patient / Non-visit [facility] Physician [facility] Work Phone: Start: 01-03-2024 End: 01-03-2024 ambulatory [facility] Work Phone: Start: 01-03-2024 End: 01-03-2024 Patient encounter procedure [facility] Physician [facility] Work Phone: Start: 08-10-2023 End: 08-10-2023 ambulatory Ana Maryse Troy 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 Facility:[facility] Start: 07-21-2023 End: 07-21-2023 ambulatory [facility] Work Phone: Start: 07-21-2023 End: 07-21-2023 Patient encounter procedure [facility] Physician [facility] Work Phone: Start: 06-28-2023 ambulatory Susana Jayla Schflaviombohm PA-C Facility:[facility] Start: 06-27-2023 End: 06-27-2023 ambulatory Susana Jayla Schflaviombohm PA-C Facility:[facility] Start: 06-22-2023 End: 06-22-2023 ambulatory Ana Maryse Troy 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 Facility:[facility] Start: 05-17-2023 End: 05-17-2023 ambulatory Susana Jayla Schlumbohm PA-C Facility:[facility] Start: 04-21-2023 End: 04-21-2023 ambulatory Gabino Soni PA-C Facility:[facility] Start: 04-20-2023 End: 04-20-2023 ambulatory Gabino Soni PA-C Facility:[facility] Start: 03-26-2023 End: 03-26-2023 ambulatory Jodie Portillo Other [facility] Other Start: 03-26-2023 Office outpatient visit 15 minutes Jodie [facility]N [facility] Start: 10-02-2022 End: 10-02-2022 ambulatory Deidra Jimenez Other [facility] Other Start: 10-02-2022 Office outpatient ne w 20 minutes Deidra Jimenez [facility] Start: 05-21-2019 Office [...] examination at a health care facility [facility] Start: 10-31-2018 Lab [facility] [place] Other [facility] Start: 10-31-2018 Office outpatient visit 15 minutes Cheryl Dobbins Other [facility] Start: 08-28-2018 Lab [facility] [place] Other [facility] Start: 08-28-2018 Office outpatient visit 15 minutes Cheryl Dobbins Other [facility] Start: 04-20-2018 End: 04-20-2018 Emergency department [facility] Start: 03-08-2018 Lab Enrique sy Other [facility] Start: 03-08-2018 Office outpatient visit 15 minutes Vinita Odronez Other [facility] Start: 02-09-2018 Office outpatient [...] Start: 12-28-2017 Office outpatient visit 15 minutes Vinitafederica SanchezJosé Luis Other [facility] Start: 12-28-2017 Lab Enrique sy Other [facility] Start: 08-01-2017 Office outpatient visit 25 minutes Lyric Pérez Other [facility] Start: 07-28-2017 End: 07-28-2017 Emergency department patient visit [facility] Start: 01-13-2017 Office outpatient visit 15 minutes Rachel Ly Other [facility] Start: 10-29-2016 Office outpatient visit 15 minutes Rachel Ly Other [facility] Start: 06-07-2016 Office outpatient visit 15 minutes Nerique José Luis Other [facility] Start: 04-23-2016 [...] ne w 20 minutes Lyric Pérez Other [facility] Office Procedures Date Procedure Procedure Detail Performing Clinician Start: 03-14-2024 Urnls dip stick/tabl et rgnt non-auto w/o micrscp Eleazar Vijaya DO Work Phone: Start: 03-08-2024 [facility] PREG QUANT HCG Core y Vijaya DO Work Phone: Start: 02-08-2024 End: 02-08-2024 Urnls dip stick/tablet [...] [facility] Start: 05-11-2019 EBV Complete Series [place] adalgisa Pérez Start: 04-27-2019 Doc meds verified [...] rgnt auto w/o microscopy [facility] Start: 04-20-2018 Radex spine lumbosac ral 2/3 views TALON CARONE Start: 04-20-2018 Basic metabolic pane l calcium total TALON CARONE Start: 04-20-2018 Blood count complete automated TAOLN CARONE Start: 04-20-2018 Microscopic urinalysis TALON CARONE Start: 04-20-2018 Urine test visual color cmprsn meths TALON CARONE Start: 04-20-2018 URINE RT REFLEX TO CULTURE TALON CARONE Start: 03-08-2018 Doc meds verified w/ pt or re [facility] [place] Start: 03-08-2018 Urine test visual color cmprsn meths [facility] Start: 02-09-2018 Doc meds verified w/ pt or re [facility] [place] Start: 02-03-2018 Urine test visual color cmprsn meths [facility] Start: 01-30-2018 Doc meds verified w/ pt or re [facility] Start: 01-30-2018 Urine test visual color cmprsn meths [facility] Start: 01-11-2018 Doc meds verified w/ pt or re [facility] [place] Start: 12-28-2017 Doc meds verified w/ pt or re [facility] Start: 12-28-2017 Gonadotropin chorion ic qualitative [facility] [place] Start: 12-28-2017 Hepatic function panel [facility] Start: 12-28-2017 Lipid panel [facility] Ri cketts Start: 07-28-2017 CBC TALON CA EDE Start: 07-28-2017 Comprehensive metabo lic 2000 panel - Serum or Plasma TALON CARONE Start: 07-28-2017 , URINE HEATHE R CARONE Start: 07-28-2017 Urinalysis TALON CA EDE Start: 01-13-2017 Doc meds verified w/ pt or re [facility] [place] Start: 06-07-2016 Assay of triglycerides [facility] [place] Start: 06-07-2016 Blood count complete auto&auto difrntl wbc [facility] Start: 06-07-2016 Cholesterol serum/wh ole blood total [facility] Start: 06-07-2016 Gonadotropin chorion ic qualitative [facility] Start: 06-07-2016 Hepatic function panel [facility] [place] Start: 04-23-2016 Urine test visual color cmprsn meths [facility] Start: 03-19-2016 Urine test visual color cmprsn meths [facility] Start: 02-12-2016 Assay of triglycerides [facility] [place] Start: 02-12-2016 Blood count complete auto&auto difrntl wbc [facility] [place] Start: 02-12-2016 Cholesterol serum/wh ole blood total [facility] Start: 02-12-2016 Gonadotropin chorion ic qualitative [facility] [place] Start: 02-12-2016 Hepatic function panel [facility] Plan of Treatment Date Care Activity Detail Author Start: 03-23-2024 End: 03-23-2024 ambulatory 03/23/2024 10:00 AM EST Initial [facility] [address] [place] [id number] [facility] Start: 03-23-2024 End: 03-23-2024 Professional / ancillary services management 03/23/2024 9:30 AM EST Ancillary Procedure [facility] [address] [id number] [facility] Start: 03-14-2024 End: 03-14-2024 Patient encounter procedure 03/14/2024 1:30 PM EST Office Visit [facility] [address] [id number] Eleazar Lilly, DO [address] [place] [address] Arrived [facility] Comment on above: Arrived Start: 02-28-2024 End: 02-28-2024 Patient encounter procedure 02/28/2024 8:10 AM EDT Office Visit [facility] [address] [place] [id number] Eleazar Lilly, DO [address] [place] [address] [facility] Start: 02-08-2024 End: 02-07-2025 SURESWAB(R) ADVANCED VAGINITIS PLUS, TMA SURESWAB(R) ADVANCED VAGINITIS PLUS, TMA Pathology and Cytology Routine Pelvic pain in female Expected: 02/08/2024 (Approximate), Expires: 02/07/2025 [facility] Work Phone: Comment on above: Expected: 02/08/2024 (Approximate), Expires: 02/07/2025 Start: 02-08-2024 End: 02-07-2025 US for US PELVIS-TRANSVAG IF INDICATED Imaging Routine Pelvic pain in female Expected: 02/08/2024 (Approximate), Expires: 02/07/2025 [facility] Comment on above: Expected: 02/08/2024 (Approximate), Expires: 02/07/2025 Start: 02-08-2024 End: 02-08-2024 Patient encounter procedure 02/08/2024 1:20 PM EDT Office Visit [facility] [address] [place] [address] Eleazar Lilly, DO [address] [place] [address] Arrived [facility] Comment on above: Arrived Start: 02-02-2024 [facility] Start: 01-08-2024 Influenza vaccination Influenza Vacc ine (#1) [facility] Start: 05-11-2019 Blood count complete auto&auto difrntl wbc CBC w diff [facility] Start: 05-11-2019 TSH Qn TSH [facility] Start: 11-02-2018 Blood count complete automated CBC & PLATELET COUNT; AUTOMATED [facility] Start: 11-02-2018 Comprehensive metabo lic panel Comprehensive metabolic panel [facility] Start: 11-02-2018 Gonadotropin chorion ic qualitative SERUM [facility] Start: 11-02-2018 Hemoglobin A1c/Hemoglobin.total mass fraction (Bld) Hgb A1c [facility] Start: 11-02-2018 Lipid panel Lipid panel [facility] Start: 11-02-2018 Thyrotropin Qn TSH (thyroid stimulating hormone) [facility] Start: 11-02-2018 Urnls dip stick/tabl et rgnt auto w/o microscopy UA [facility] Atopobium vaginae DN A [Presence] in Vaginal fluid by ELDON with probe detection [facility] Bacterial vaginosis associated bacterium 2 DNA [Presence] in Vaginal fluid by ELDON with probe detection [facility] CHLAMYDIA TRACHOMATI S (GENITO/STI) CHLAMYDIA TRACHOMATIS (GENITO/STI) Lab Routine Pelvic pain in female Ordered: 02/08/2024 [facility] Comment on above: Ordered: 02/08/2024 Estradiol (E2) [Mass/volume] in Serum or Plasma [facility] Estrogen [Mass/volum e] in Serum or Plasma [facility] Holter monitor study [facility] Lutropin [Units/volu me] in Serum or Plasma [facility] Megasphaera sp type 1 DNA [Presence] in Vaginal fluid by ELDON with probe detection [facility] Neisseria gonorrhoea e DNA [Presence] in Unspecified specimen by ELDON with probe detection Neisseria gonorrhea DNA probe, direct Lab Routine Pelvic pain in female Ordered: 02/08/2024 [facility] Comment on above: Ordered: 02/08/2024 Progesterone [Mass/volume] in Serum or Plasma [facility] XR Cervical spine 5 Views [facility] XR Thoracic and lumb ar spine Views for scoliosis [facility] Payers Date Payer Category Payer Self-pay 2022 Medicaid [id number] 2022 Medicaid [id number] 2. [id number] 2022 Unknown 2015 Unknown [id number] 2.16 .[id number] 2014 Unknown [id number] 1996 Unknown [id number] 2.16.8 40.1.417571.3.579.2.173 1996 Unknown [id number] 2.16.8 40.1.260283.3.579.2.173 1996 Unknown [id number] 2.16. 840.1.575040.3.579.2.196 1996 Unknown [id number] 2.16. 840.1.841319.3.579.2.196 1996 Unknown [id number] 2.16. 840.1.821334.3.579.2.196 1996 Unknown [id number] 2.16. 840.1.747243.3.579.2.196 1996 Unknown [id number] 2.16. 840.1.400519.3.579.2.196 1996 Unknown [id number] 2.16. 840.1.856401.3.579.2.196 1996 Unknown [id number] 2.16. 840.1.149548.3.579.2.196 1996 Unknown [id number] 2.16. 840.1.819957.3.579.2.196 1996 Unknown [id number] 2.16. 840.1.631940.3.579.2.196 1996 Unknown [id number] 2.16. 840.1.402760.3.579.2.196 1996 Unknown [id number] 2.16. 840.1.619786.3.579.2.196 1996 Unknown [id number] 2.16.84 0.1.965778.3.579.2.1259 1996 Unknown [id number] 2.16.84 0.1.250204.3.579.2.1259 Unknown [id number] 2.16.8 40.1.628746.3.579.2.531 Social History Date Type Detail Facility Start: Unknown if ever smoked [facility] Start: 1 can pop/day [facility] Sex Assigned At [facility] Other Start: 07-21-2023 End: 02-02-2024 Tobacco smoking status [facility] Never smoked tobacco (finding) [facility] Start: 1995 Sex Assigned At Female F [facility] Tobacco smoking status [facility] Tobacco smoking consumption unknown [facility] Start: 1995 Sex assigned at Not on file N [facility] Clinical Notes 10-02-2022 to 03-14-2024 Yaneli Xavier, GRETCHEN - 03/14/2024 1:30 PM ESTYaneli Xavier, ENGINEERING TEAM SUPERVISOR - 02/28/2024 8:10 AM EDTYaneli Xavier, GRETCHEN - 02/08/2024 1:20 PM EDT Note Date & Type Note Facility 03-14-2024 History of Present illness Narrative Reason for Appointment: Patient ID: Cristiane Dunbar is a 28 y.o. female who presents for Weight Loss (Pt currently . Pt has not been able to keep anything down. Pt states she has lost a total of 12 pds since she found out she is . ) Patient presents today for Acute Visit. MEDICATIONS Current Outpatient Medications Medication Instructions ondansetron ODT (ZOFRAN-ODT) 4 mg, Oral, Every 6 hours PRN sertraline (Zoloft) 25 MG tablet Daily ALLERGIES No Known Allergies PROBLEMS Active Ambulatory Problems Diagnosis Date Noted No Active Ambulatory Problems Resolved Ambulatory Problems Diagnosis Date Noted No Resolved Ambulatory Problems No Additional Past Medical History HISTORY PAST MEDICAL HISTORY SOCIAL HISTORY No past medical history on file. Social History Tobacco Use Smoking status: Not [...] Constitutional: Appearance: Normal appearance. She is well-developed. Cardiovascular: Rate and Rhythm: Normal rate and [...] nursing note reviewed. Exam conducted with a revit drafter present. Vitals: Estimated body mass index is 20.6 kg/m as calculated from the following: Height as of 24: 5' 1 . Weight as of this encounter: 109 lb. BP: 110/72 Patient's last menstrual period was 01/23/2024. ASSESSMENT & PLAN ICD-10-CM 1. Losing weight R63.4 2. Missed menses N92.6 POCT urinalysis dipstick manually resulted POCT , urine manually resulted Pt presents with severe nausea and vomiting and inability to keep food down. Rx for reglan faxed to pharmacy. Pt has intake for [facility] on Tuesday. Documented by Yaneli Xavier LPN on behalf of: Eleazar Lilly DO documented in this encounter [facility] 03-02-2024 Note Patient Education Ma terials Name: Cristiane Dunbar Current Date: 03/02/2024 06:56:41 [facility] : 1995 The following sheet(s) are the Patient Education Leaflets for Cristiane Dunbar Oncology Breast Health: Breast Self-Awareness What is breast self-awareness? Breast self-awareness is knowing how your breasts normally look and feel. Your breasts change as you go through different stages of your life. So it?s important to learn what is normal for your breasts. Knowing about your breasts helps you spot any changes in them right away. Tell your healthcare provider about any changes. Why is breast self-awareness important? Many experts now say that women should focus on breast self-awareness instead of doing a breast self-exam (BSE). These experts include the [place] [employer] and the [place] [employer] of Obstetricians and Gynecologists. Some experts even advise not teaching women to do a BSE. That?s because research hasn?t shown that doing BSEs helps. Breast self-awareness is different than a BSE. It isn?t about following a certain method and schedule. It?s about knowing what's normal for your breasts. That way you can spot even small changes right away. If you see any changes, tell your healthcare provider. Changes to look for Call your healthcare provider if you find any changes in your breasts that worry you. These changes may be: ?A lump ?Nipple discharge other than breastmilk, especially if it's bloody ?Swelling ?A change in size or shape ?Skin changes, such as redness, thickening, or dimpling of the skin ?Swollen lymph nodes in the armpit ?Nipple problems, such as pain or redness If you find a lump Call your healthcare provider if you find lumpiness in one breast. Also call if you feel something different in the tissue or feel a definite lump. Sometimes lumpiness may be due to menstrual changes. But there may be reason for concern. Your healthcare provider may want to see you right away if you have: ?Nipple discharge that is bloody ?Skin changes on your breast, such as dimpling or puckering It?s OK to be upset if you find a lump. Be sure to call your healthcare provider right away. Remember that most breast lumps are benign. This means they are not cancer. ? [id number] [employer]. All rights reserved. This information is not intended as a substitute for professional medical care. Always follow your healthcare professional's instructions. [facility] 02-28-2024 History of Present illness Narrative Reason for Appointment: Patient ID: Cristiane Dunbar is a 28 y.o. female who presents for Telehealth (Pt had ultrasound and positive HCG) Patient presents today via telephone call for a telehealth appointment. Patients Phone #: [phone] (mobile) Current Medications: has a current medication [...] Eleazar Lilly DO documented in this encounter [facility] 02-08-2024 History of Present illness Narrative Reason for Appointment: Patient ID: [...] nursing note reviewed. Exam conducted with a revit drafter present. Vitals: Estimated body mass index is [...] Eleazar Lilly DO documented in this encounter [facility] 03-26-2023 Evaluation note Encounter Date Diagnosis [...] verbalized understanding and agrees with treatment plan [facility] Other 05-27-2023 Evaluation note* Encounter Date Diagnosis Assessment Notes [...] no improvement in 2 to 3 days [facility] Other Evaluation note* Diagnosis Onset Date Resolution Status Acquired scoliosis acute Daily headache acute Fatigue acute Hot flashes acute Irregular menstrual cycle ac hans Neck pain acute [facility] Work Phone: Evaluation note* Diagnosis Onset Date Resolution Status Dizziness acute Heart palpitations acute [facility] Work Phone: Evaluation note* Diagnosis Onset Date Resolution Status Dizziness acute Heart palpitations acute Anxiety acute Depression acute [facility] Work Phone: Evaluation note* Diagnosis Onset Date Resolution Status Dizziness acute Heart palpitations acute Anxiety acute Depression acute Vaginal discharge noneactive Acute effusion of both middle ears noneactive [facility] Work Phone: Evaluation note* Diagnosis Pelvic pain in female Unspecified symptom associated with female genital organs documented [facility] this encounter [facility] Diagnosis Early stage of state, incidental documented in this encounter [facility]* Diagnosis Losing weight Loss of weight Missed menses documented in this encounter [facility] Summary [...] section and content) DATE [facility] DATE CREATED AUTHOR AUTHOR'S ORGANIZ ATION 12/02/2019 [facility] DATE CREATED AUTHOR AUTHOR'S ORGANIZ ATION 02/06/2024 [facility] DATE CREATED AUTHOR AUTHOR'S ORGANIZ ATION 03/09/2024 [facility] DATE CREATED AUTHOR AUTHOR'S ORGANIZ ATION 03/16/2024 [facility] EPIC REASON FOR VISIT (unrecogniz ed section and content) Reason Comments Pelvic Pain Reason Comments Telehealth Pt had ultrasound an d positive HCG Reason Comments Weight Loss Pt currently pregnan t. Pt has not been able to keep anything down. Pt states she has lost a total of 12 pds since she found out she is . Care Teams (unrecognized sec tion and content) Team Status: Active Member Role Status Dates Evelyn Vu APRN COMPUTER DESIGNER-C Primary Care Provider Active Team Status: Inactive Member Role Status Dates Evelyn Vu APRN COMPUTER DESIGNERJeniffer Primary Care Provider, Attending Provider Active Start: July 21, 2023 End: July 21, 2023 Team Status: Inactive Member Role Status Dates Evelyn Vu APRN COMPUTER DESIGNER-C Primary Care Provider, Attending Provider Active Start: January 03, 2024 End: January 03, 2024 Team Status: Active Member Role Status Dates Evelyn Vu APRN COMPUTER DESIGNER-C Primary Care Provider Active Start: January 072023 Ty Aguilar , DO Attending Provider Active S tart: January 19, 2024 Team Status: Inactive Member Role Status Dates Evelyn Vu APRN COMPUTER DESIGNER-C Primary Care Provider, Attending Provider Active Start: January 24, 2024 End: January 24, 2024 Team Status: Inactive Member Role Status Dates Evelyn Vu APRN COMPUTER DESIGNER-C Primary Care Provider Active Start: January 082023 End: February 02, 2024 Jodie Portillo APRN Attending Provider Active Start: February 02, 2024 End: February 02, 2024 Team Status: Inactive Member Role Status Dates Jodie Portillo APRN Attending Provider Active Start: February 02, 2024 End: February 02, 2024 Dictaphone Transcriber Relationship Specialty Start Date End Date Corwin Dee DO [address] [place] [id number] PCP - General Family Medicine 09/14/22 Dictaphone Transcriber Relationship Specialty Start Date End Date Corwin Dee DO [address] [place] [address] PCP - General Family Medicine 09/14/22 Dictaphone Transcriber Relationship Specialty Start Date End Date Corwin Dee DO [address] [place] [address] PCP - General Family Medicine 09/14/22 Dictaphone Transcriber Relationship Specialty Start Date End Date Corwin Dee DO [address] [place] [address] PCP - General Family Medicine 09/14/22 Dictaphone Transcriber Relationship Specialty Start Date End Date Unallocated, Berto Bermudez MD [address] [facility] [place] [address] PCP - General Family Medicine 02/28/24 Dictaphone Transcriber Relationship Specialty Start Date End Date Unallocated, Berto Bermudez MD [address] [facility] [place] [address] PCP - General Family Medicine 02/28/24 Dictaphone Transcriber Relationship Specialty Start Date End Date Unallocated, Berto Bermudez MD [address] [place] [address] PCP - General Family Medicine 02/28/24 Goals (unrecognized section and content) Goals may [...] BE BASED ON THE PRIMARY CLINICAL RECORDS. [facility] [employer] [facility]. provides no warranty or guarantee of the accuracy or completeness of information in this document.
[2024-03-17 17:33] VITALS: BP 131/90; PULSE 78; TEMP 36.9; O2SAT 100; BMI 20.2
--- NOTE | 2024-03-17 17:38 | US_ITS ---
The [address] [address] Patient Name: GIANCARLO CELAYA MRN: [id number] date: 1995 Sex: F Assigned Patient Location: ER Current Patient Location: Accession/Order Number: [id number] Exam Date: 03/17/2024 18:33 Report Date: 03/17/2024 20:43 At the request of: TESSA BHARDWAJ Procedure: US OB transvaginal EXAM: US OB transvaginal HISTORY: rule out ectopic, bleeding COMPARISON: 02/20/2024 TECHNIQUE: Transvaginal real-time grayscale and color Doppler imaging with pulsed duplex sonography was performed. FINDINGS: UTERUS: Anteverted. An intrauterine is seen with gestational sac, yolk sac and pole with crown-rump length measurement of 0.46 centimeters corresponding to a sonographic gestational age of 6 weeks and 1 day. heart rate detected at 105 beats per minute. JESUS of 11/09/2024 based on crown-rump length. OVARIES: Right ovary is unremarkable. Right ovary measures 3.5 by 2 by 2.5 cm. Isoechoic structure is seen within the left ovary measuring up to 2.2 centimeters and likely represents a corpus luteum. Left ovary measures 3.8 by 2 by 2.8 cm. Ovaries demonstrate color Doppler flow and appropriate spectral waveforms. MISCELLANEOUS: No significant free fluid. US/US OB transvaginal IMPRESSION: Intrauterine with crown-rump length measurement corresponding to the sonographic gestational age of 6 weeks and 1 day with detectable heart rate of 105 beats per minute. JESUS of 11/09/2024. Electronically authenticated by: SARAH MITCHELL Date: 03/17/2024 20:43
--- NOTE | 2024-03-17 17:44 | ED_ITS ---
HPI - Female Genitourinary General Chief complaint: Vaginal Bleeding Stated complaint: 8WKS , BLEEDING Time Seen by Provider: 03/17/24 17:22 Source: patient Mode of arrival: walk-in Limitations: no limitations History of Present Illness HPI Narrative: Patient is a 28-year-old female G2, P1 who presents to the emergency department for evaluation of cramping and bleeding in . She states she started spotting 2 days ago but today had an increase in red vaginal bleeding and cramping. She has not saturated more than a pad. No fevers or vomiting. No urinary symptoms. She states her first was completely normal. Related Data Allergies Allergy/AdvReac Type Severity Reaction Status Date / Time No Known Drug Allergies Allergy Verified 01/19/24 10:51 Review of Systems ROS Constitutional Denies: fever or chills Ears, nose, mouth, and throat Denies: throat pain or nasal congestion Cardiovascular Denies: chest pain Respiratory Denies: shortness of breath or cough Gastrointestinal Reports: abdominal pain; Denies: nausea, vomiting or diarrhea Genitourinary Denies: painful urination Musculoskeletal Denies: back pain Integumentary/Breast Denies: rash Neurological Denies: numbness in extremities or weakness in extremities Hematologic/Lymphatic Denies: easy bruising or easy bleeding PFSH PFS Social History Little interest or pleasure in doing things: not at all Feeling down, depressed, or hopeless: not at all Exam Narrative Exam Narrative: Gen.: Awake, alert, in no distress Head: Normocephalic, atraumatic ENT: Moist mucous membranes Respiratory: No respiratory distress, lungs clear bilaterally Cardio: Regular rate and rhythm Gastrointestinal: Abdomen is soft, nondistended and nontender to palpation Extremities: Moves extremities equally Psych: Normal mood and affect Neuro: No focal neuro deficit Skin: Warm, dry, intact Constitutional Vital Signs, click to edit/add: Last Vital Signs Temp 98.4 F 03/17/24 17:33 Pulse 78 03/17/24 17:33 Resp 18 03/17/24 17:33 BP 131/90 03/17/24 17:33 Pulse Ox 100 03/17/24 17:33 O2 Del Method Room Air 03/17/24 17:33 Course Vital Signs Vital signs: Vital Signs Temperature 98.4 F 03/17/24 17:33 Pulse Rate 78 03/17/24 17:33 Respiratory Rate 18 03/17/24 17:33 Blood Pressure 131/90 03/17/24 17:33 Pulse Oximetry 100 03/17/24 17:33 Oxygen Delivery Method Room Air 03/17/24 17:33 Temperature 98.4 F 03/17/24 17:33 Pulse Rate 78 03/17/24 17:33 Respiratory Rate 18 03/17/24 17:33 Blood Pressure 131/90 03/17/24 17:33 Pulse Oximetry 100 03/17/24 17:33 Oxygen Delivery Method Room Air 03/17/24 17:33 MDM - Female Genitourinary MDM Narrative Medical decision making narrative: Patient treated with Tylenol, she had an ultrasound several weeks ago with no evidence of an IUP so an ultrasound was performed tonight to rule out ectopic . Quantitative hCG level has gone up significantly, urine specimen is contaminated so we will wait for culture. Ultrasound measures 6 weeks and 1 day with a heart rate of 105, IUP noted. 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 Return to the ER if symptoms change or worsen. Pelvic rest encouraged. Continue Tylenol. SUPERVISED APC VISIT, PHYSICIAN ATTESTATION: Based on the medical record the care appears appropriate. ? Medical Records Attestation: I reviewed the patient's medical records. Lab Data Attestation: I reviewed the patient's lab results. Labs: Lab Results 03/17/24 03/17/24 Range/Units 17:41 17:51 HCG, Quant 67730 mIU/mL Urine Color Lt. yellow (YELLOW) Urine Clarity Clear (CLEAR) Urine pH 7.0 (5.0-9.0) Ur Specific Belle 1.020 (1.005-1.025) Urine Protein Negative (NEG/TRACE) mg/dL Urine Glucose (UA) Negative (NEGATIVE) mg/dL Urine Ketones Negative (NEGATIVE) mg/dL Urine Occult Blood Moderate A (NEGATIVE) Urine Nitrite Negative (NEGATIVE) Urine Bilirubin Negative (NEGATIVE) Urine Urobilinogen 1.0 (0.2-1.0) EU/dL Ur Leukocyte Esterase Trace A (NEGATIVE) Urine RBC 2-5 A (0-2) #/HPF Urine WBC 0-2 A (NONE SEEN) #/HPF Ur Squamous Epith Cells Moderate A (NONE/RARE) #/LPF Urine Crystals None seen (None Seen) #/HPF Urine Bacteria Moderate A (NONE SEEN) #/HPF Urine Casts None seen (NONE SEEN) #/LPF Urine Mucus Trace A (NONE SEEN) Ur Culture Indicated? Yes Imaging Data US - abdomen: Attestation: I have reviewed the pertinent imaging results. Discharge Plan Discharge Chief Complaint: Vaginal Bleeding Clinical Impression: Threatened miscarriage, Vaginal bleeding affecting early Patient Disposition: Home, Self-Care Time of Disposition Decision: 20:00 Condition: Good Print Language: Greenlandic Instructions: Threatened Miscarriage (ED) Referrals: Eleazar Lilly DO [Physician] - 1 week LUDY GRAFF [Primary Care Provider] - 1 week
[2024-03-17] MEDS: ACETAMINOPHEN 325 MG TABLET 650 MG PO (17:48)
[2024-03-17 17:49] LABS: Bilirubin Urine NEGATIVE (NEGATIVE); Blood Urine MODERATE (NEGATIVE); Clarity Urine CLEAR (CLEAR); Color Urine LT. YELLOW (YELLOW); Glucose Urine UA NEGATIVE (NEGATIVE); Ketones Urine NEGATIVE (NEGATIVE); Leukocyte Esterase Urine TRACE (NEGATIVE); Nitrite Urine NEGATIVE (NEGATIVE); Protein Urine NEGATIVE (NEG/TRACE)
[2024-03-17 17:54] LABS: Urine Microscopic Indicated YES
[2024-03-17 18:02] LABS: Bacteria Urine MODERATE #/HPF (NONE SEEN)
[2024-03-17 18:03] LABS: Cast Seen? NONE SEEN #/LPF (NONE SEEN); Crystals Seen? None Seen #/HPF (None Seen); Mucus Urine TRACE (NONE SEEN); Squamous Epithelial Cell Urine MODERATE #/LPF (NONE/RARE); WBC Urine 0-2 #/HPF (NONE SEEN)
[2024-03-17 18:04] LABS: Urine Culture Indicated YES
[2024-03-17 18:36] LABS: HCG Quantitative 28947 mIU/mL
[2024-03-17 20:10] VITALS: BP 117/69; PULSE 66; O2SAT 100
== END 2024-03-17 20:10 | disposition home or self-care (01) ==
PROVIDERS: Physician Assistant; Emergency Provider Emergency Medicine; PCP Nurse Practitioner Family
DX: O20.0 Threatened abortion (principal); Z3A.08 8 weeks gestation of pregnancy
CPT/HCPCS: 36415; 76817; 81001; 84702; 86900; 86901; 87086; 99284

== ENCOUNTER 2024-04-13 13:42 | Outpatient (OUT) | payer MEDICAID, SELFPAY ==
[2024-04-13 16:45] LABS: BOX Test Reference Lab UNITY
[2024-04-13 16:46] LABS: BOX Test Date Sent UNITY
== END 2024-04-13 13:43 | disposition home or self-care (01) ==
LOC: LAB 13:43
PROVIDERS: PCP Nurse Practitioner Family; Visit Provider Obstetrics & Gynecology
DX: Z36.0 Encounter for antenatal screening for chromosomal anomalies (principal)
CPT/HCPCS: 36415

== ENCOUNTER 2024-04-16 10:12 | Outpatient (OUT) | payer MEDICAID, SELFPAY ==
[2024-04-16 10:33] LABS: Basophils Percent Auto 0.3 % (0.2-2.0); Eosinophils Absolute Auto 0.1 10^3/uL (0.0-0.7); Eosinophils Percent Auto 0.7 % (0.9-7.0); Hemoglobin 13.7 g/dL (12.0-16.0); Immature Granulocytes Abs Auto 0.05 10^3/uL (0.00-0.03); Immature Granulocytes Pct Auto 0.6 % (0.0-0.5); Lymphocytes Absolute Auto 1.7 10^3/uL (1.2-3.8); Lymphocytes Percent Auto 19.5 % (20.5-60.0); Mean Corpuscular HGB Conc 36.1 g/dL (29.9-35.2); Mean Corpuscular Hemoglobin 31.3 pg (26.7-34.0); Mean Corpuscular Volume 86.8 fL (81.0-99.0); Monocytes Absolute Auto 0.4 10^3/uL (0.3-0.8); Monocytes Percent Auto 4.5 % (1.7-12.0); Neutrophils Absolute Auto 6.6 10^3/uL (1.4-6.5); Neutrophils Percent Auto 74.4 % (43.0-75.0); Platelet Count 191 10^3/uL (150-450); Red Blood Count 4.38 10^6/uL (4.20-5.40); White Blood Count 8.9 10^3/uL (4.0-11.0)
[2024-04-16 10:42] LABS: Estimated Average Glucose 91 mg/dL; Glycohemoglobin A1C 4.8 % (4.5-6.2)
[2024-04-16 10:55] LABS: Amphetamine Screen Urine NEGATIVE (NEGATIVE); Barbiturates Screen Urine NEGATIVE (NEGATIVE); Benzodiazepines Screen Urine NEGATIVE (NEGATIVE); Buprenorphine Screen Urine NEGATIVE (NEGATIVE); Cannabinoid Screen Urine NEGATIVE (NEGATIVE); Cocaine Screen Urine NEGATIVE (NEGATIVE); Methadone Screen Urine NEGATIVE (NEGATIVE); Methamphetamines Screen Urine NEGATIVE (NEGATIVE); Opiate Screen Urine NEGATIVE (NEGATIVE); Oxycodone Screen Urine NEGATIVE (NEGATIVE); Phencyclidine Screen Urine NEGATIVE (NEGATIVE); Tricyclic Antidepressant Urine NEGATIVE (NEGATIVE)
[2024-04-17 06:08] LABS: HBsAg Screen Negative (Negative); HCV Ab Non Reactive (Non Reactive); HIV Ab/p24 Ag Screen Non Reactive (Non Reactive)
[2024-04-17 12:09] LABS: Rapid Plasma Reagin, Quant Non Reactive titer (NonRea<1:1)
== END 2024-04-16 10:13 | disposition home or self-care (01) ==
LOC: LAB 10:13
PROVIDERS: PCP Nurse Practitioner Family; Visit Provider Obstetrics & Gynecology
DX: Z34.01 Encounter for supervision of normal first pregnancy, first trimester (principal)
CPT/HCPCS: 36415; 80307; 83036; 85025; 86592; 86762; 86803; 86850; 86900; 86901; 87086; 87340; 87389

== ENCOUNTER 2024-05-28 21:51 | Outpatient (REF) | payer MEDICAID, SELFPAY ==
--- OUTSIDE RECORDS SUMMARY | 2024-05-28 21:54 | XMS_ITS | CCD ---
Author Organization [facility] Care Team Providers Care Cork Tipper Name Role Phone TALON VERAS Unavailable Unavailable TALON VERAS L Unavailable Unavailable Hima Silver Primary Care Physician Unava iljennifer Silver, Hima Catherine Unavailable Unavailable Hima Silver A Primary Care Physician Unava iljennifer Silver, Hima A Primary Care Physician Unava iljennifer Pérez, Lyric N Primary Care Physician Unavai lauryn Pérez, Lyric N Primary Care Physician Unachad Pérez, Lyric N Primary Care Physician Unavakirk Silver, Hima A Primary Care Physician Unava iljennifer Pérez, Lyric N Primary Care Physician Unavai Deidra Morrison Unavailable Jodie Portillo Unavailable GELACIO Portillo Attending Provider Jodie Portillo Attending Unavailable Jodie Portillo Admitting Unavailable Corwin Dee DO Primary Care Provider Unallocated , Noms Provider Primary Care Provi kamille ELEAZAR LILLY Attending Unavailable ELEAZAR LILLY Attending Unavailable ELEAZAR LILLY Attending Unavailable Troy MON[employer] CONSULTANT, Ana Serra Attending Carley vailable Schlumbohm PA-C, Susana Dickerson Primary Care U navailable Troy ESTEVEZSMALL BUSINESS CONSULTANT, Ana Serra Attending Carley vailable Schlumbohm PA-C, Susana Dickerson Primary Care U navailable Mike Jones Attending Unavailable Schlumbohm PA-C, Susana Dickerson Primary Care U navailable [place] PA-C, Amara Serra Attending Unav ailable Schlumbohm PA-C, Susana Dickerson Referring U navailable Schlumbohm RAMESY, Susana Dickerson [facility] RAMSEY, Susana Dickerson Attending [facility] RAMSEY, Susana Dickerson [facility]mom RAMSEY, Susana Dickerson Attending [facility] ZANDRAC, Susana Dickerson [facility] Ana Case Attending Carley [facility] RAMSEY, Susana Dickerson Primary Care U [facility] Medications Current Medications Medication Drug Class(es) Dates [...] minutes after. 28 capsule 02/08/2024 02/22/2024 Active fluticasone propionate 0.05 mg/actuat metered dose nasal spray (3 sources) Corticosteroid Start: 05-18-2024 take 1 spray(s) nasal route twice daily Fluticasone Propionate (Flonase Allergy Relief) 50 mcg/actuation spray,suspension Active 1 SPRAY INTRANASAL Twice daily May 18, 2024 12:00am administer into each nostril Start: 10-02-2022 take 2 spray(s) nasa l route once daily Fluticasone Propionate 50 MCG/ACT 2 sprays Nasally Once a day for 14 day(s) September, Not-Taking metoclopramide 10 mg oral tablet (11 sources) Dopamine-2 Receptor Antagonist Start: 03-14-2024 End: [...] needed for nausea.. 90 tablet 1 03/14/2024 Active nitrofurantoin, macrocrystals 25 mg / nitrofurantoin, monohydrate 75 mg oral capsule (1 source) Nitrofuran Antibacterial Start: 03-23-2024 End: 03-30-2024 take 1 capsule by mouth in the morning nitrofurantoin, macrocrystal-monohy drate, (Macrobid) 100 MG capsule Indications: Urinary tract infection without hematuria, site unspecified Take 1 capsule (100 mg) by mouth in the morning and 1 capsule (100 mg) before bedtime. Do all this for 7 days. 14 capsule 03/23/2024 03/30/2024 Active ondansetron 4 mg disintegrating oral tablet (20 sources) Serotonin-3 Receptor Antagonist Start: 05-28-2024 take 1 tablet by mouth every six hours for nausea ondansetron ODT (Zofran-ODT) 4 MG disintegrating tablet Indications: Nausea and vomiting in Take 1 tablet (4 mg) by mouth every 6 (six) hours if needed for nausea or vomiting for up to 30 doses 30 tablet 3 05/28/2024 Active Start: 05-28-2024 take 1 tablet by kunal th every six hours for nausea ondansetron ODT (Zofran-ODT) 4 MG disintegrating tablet Indications: Nausea and vomiting in Take 1 tablet (4 mg) by mouth every 6 (six) hours if needed for nausea or vomiting for up to 30 doses 30 tablet 3 05/28/2024 Active Start: 05-03-2024 End: 05-28-2024 take 1 tablet by mouth every six hours for nausea ondansetron ODT (Zofran-ODT) 4 MG disintegrating tablet Indications: Nausea and vomiting in Take 1 tablet (4 mg) by mouth every 6 (six) hours if needed for nausea or vomiting for up to 30 doses 30 tablet 3 05/03/2024 05/28/2024 Discontinued (Reorder) Start: 03-13-2024 End: 04-22-2024 take 1 tablet by mouth every six hours for nausea ondansetron ODT (Zofran-ODT) 4 MG disintegrating tablet Indications: Nausea and vomiting in Take 1 tablet (4 mg) by mouth every 6 (six) hours if needed for nausea or vomiting for up to 30 doses 30 tablet 3 04/16/2024 Active Start: 07-21-2023 End: 01-24-2024 take 1 tablet by mouth once daily Ondansetron 4 mg tablet,disintegrating Discontinued 4 MG PO Daily July 20, 2023 11:00pm January 24, 2024 10:41am Start: 08-28-2018 End: 09-04-2018 take 1 tablet [...] Start: 05-21-2019 take 1 capsule by mo ut three times daily as needed for cough [...] night cyclobenzaprine hydrochloride 10 mg oral tablet (5 sources) Muscle Relaxant Start: 11-02-2023 End: 01-24-2024 take 1 tablet by mouth three times daily as needed for muscle spasms Cyclobenzaprine 10 mg tablet Discontinued 10 MG PO Three times daily as needed for muscle spasm 30 10 November 01, 2023 11:00pm January 24, 2024 10:41am escitalopram 10 mg oral tablet (20 sources) [...] oral tablet (20 sources) Azole Antifungal Start: 02-06-2024 End: 05-18-2024 Fluconazole 150 mg tablet Discontinued 150 MG PO Q3D 2 0 February 05, 2024 11:00pm May 18, 2024 10:31am may repeat x 1 in 3 days if needed Start: 10-31-2018 take 1 tablet by kunal th once, then take 1 tablet by mouth [...] daily quit taking approx. 1 month ago hydrocortisone 0.025 mg/mg topical ointment (9 sources) Corticosteroid Start: 03-08-2018 apply 1 g topically twice daily hydrocortisone 2.5 % topical ointment 03/08/2018 apply a thin layer to the affected area(s) on lips by topical route 2 times per day. Dispense 28 gm hydrOXYzine hydrochloride 25 mg oral tablet (4 sources) Antihistamine Start: 01-24-2024 End: 05-18-2024 take 1 tablet by mouth three times daily as needed for anxiety Hydroxyzine Hcl 25 mg tablet Discontinued 25 MG PO Three times daily as needed for anxiety 90 January 23, 2024 11:00pm May 18, 2024 10:31am ISOtretinoin 40 mg oral capsule (20 sources) [...] day propranolol hydrochloride 40 mg oral tablet (5 sources) beta-Adrenergic Dilcia Start: 07-25-2023 End: 01-03-2024 take 1 tablet by mouth once Propranolol 40 mg tablet Discontinued 40 MG PO Once July 24, 2023 11:00pm January 03, 2024 10:37am sertraline 25 mg oral tablet (15 sources) Serotonin Reuptake Inhibitor Start: 01-24-2024 End: 05-18-2024 take 1 tablet by mouth once daily Sertraline 25 mg tablet Discontinued 25 MG PO Daily February 21, 2024 7:48am May 18, 2024 10:31am Sprintec (28) 0.25-35 mg-mcg oral tablet (8 [...] 14 days tiZANidine 2 mg oral tablet (10 sources) Central alpha-2 Adrenergic Agonist Start: 07-21-2023 End: 11-02-2023 take 1 tablet by mouth every eight hours as needed Tizanidine 2 mg tablet Discontinued 2 MG PO Every 8 hours as needed for muscle spasticity 30 10 October 31, 2023 2:48pm November 02, 2023 2:02pm tretinoin 0.25 mg/ml topical cream (9 sources) [...] with hyperactivity Onset: 02-09-2018 Chronic Cardiac dysrhythmias (9 sources) Palpitations; Translations: [Palpitations] 01-03-2024 Episodic Conditions associated with dizziness or vertigo (10 sources) Dizziness and giddiness; Translations: [Dizziness] Onset: 07-28-2017 01-03-2024 Episodic Disorders of teeth and jaw (1 source) Other specified disorders of teeth and supporting structures Episodic Headache; including migraine (7 sources) Daily headache; Translations: [Daily headache] 07-21-2023 Episodic Immunizations and screening for infectious disease (2 sources) Exposure to sexually transmissible disorder; Translations: [Contact with and (suspected) exposure to infections with a predominantly sexual mode of transmission] 05-28-2024 Episodic Malaise and fatigue (10 sources) Other malaise and fatigue; Translations: [Fatigue] Onset: 05-11-2019 07-21-2023 Episodic Menstrual disorders (10 sources) Irregular periods; Translations: [Irregular menstruation, unspecified] 07-21-2023 Chronic Mood disorders (20 sources) Depressive disorder, not elsewhere classified; Translations: [Depressive disorder] Onset: 01-28-2016 01-24-2024 Chronic Other acquired deformities (6 sources) Acquired scoliosis; Translations: [Scoliosis, unspecified] 07-21-2023 Chronic Other acquired deformities (1 source) Scoliosis, unspecified; Translations: [Scoliosis [and kyphoscoliosis], idiopathic] 07-21-2023 Chronic Other complications of (9 sources) Vomiting of , unspecified; Translations: [Unspecified vomiting of , unspecified as to episode of care or not applicable] Onset: 04-16-2024 03-23-2024 Episodic Other female genital disorders (2 sources) Other specified noninflammatory disorders of vagina; Translations: [Leukorrhea, not specified as infective] Onset: 02-02-2024 02-02-2024 Episodic Other female genital disorders (2 sources) Vaginal discharge; Translations: [Other specified noninflammatory disorders of vagina] 05-28-2024 Episodic Other nervous system disorders (9 sources) Attention or concentration deficit Onset: 01-28-2016 Chronic Other nutritional; endocrine; and metabolic disorders (2 sources) Weight decreasing; Translations: [Abnormal weight loss] 03-14-2024 Episodic Other and delivery including normal (14 sources) Early stage of ; Translations: [Encounter for supervision of normal , unspecified, unspecified trimester] Onset: 04-30-2024 02-28-2024 Episodic Other screening for suspected conditions (not mental disorders or infectious disease) (2 sources) Patient encounter status; Translations: [Encounter for other specified screening] 05-28-2024 Episodic Other upper respiratory disease (1 source) Chronic rhinitis Onset: 05-21-2019 Chronic Other upper respiratory infections (2 sources) Unspecified sinusitis (chronic) Onset: 05-11-2019 Chronic Other upper respiratory infections (15 sources) Acute upper respiratory infections of unspecified site; Translations: [Acute pharyngitis, unspecified] Onset: 08-01-2017 Episodic Otitis media and related conditions (3 sources) Other acute nonsuppurative otitis media, bilateral; Translations: [Acute nonsuppurative otitis media, unspecified] 02-02-2024 Episodic Residual codes; unclassified (6 sources) Flushing; Translations: [Flushing] 07-21-2023 Episodic Residual codes; unclassified (1 source) Flushing; Translations: [Flushing] 07-21-2023 Episodic Residual codes; unclassified (8 sources) Gestation period, 12 weeks; Translations: [12 weeks gestation of ] Onset: 04-30-2024 04-30-2024 Episodic Spondylosis; intervertebral disc disorders; other back problems (7 sources) Neck pain; Translations: [Cervicalgia] 07-21-2023 Episodic Sprains and strains (1 source) Strain of muscle, fascia and tendon of lower back, initial encounter; Translations: [Strain of muscle, fascia and tendon of lower back, initial encounter] Onset: 04-20-2018 Episodic Urinary tract infections (19 sources) Acute pyelonephritis without lesion of renal medullary necrosis; Translations: [Urinary tract infection, site not specified] Onset: 08-28-2018 03-23-2024 Episodic Past or Other Problems Problem Classification Problem Date Documented Da te Episodic/Chronic Acute bronchitis (3 sources) Acute bronchitis [...] nasal cavity and sinuses Onset: 05-21-2019 Episodic Results Test Name Value Interpretation Reference Range Facility Urinalysis macro (dipstick) panel (U)on 05-28-2024 Bilirubin, UA Negative Negative - 4(70) +++ mg/dL [facility] Blood, UA Negative Negative - 50 Fuad/mcL [facility] Clarity, UA Clear [facility] Color, UA Yellow [facility] Glucose, UA Negative Negative - 2000(110) ++++ mg/dL [facility] Interpretation and review of laboratory results Normal [facility] Ketones, UA Negative Negative - 160(16) ++++ mg/dL [facility] Leukocytes, UA Negative Negative - 500+++ Sandie/mcL [facility] Nitrite, UA Negative Negative - Positive [facility] pH, UA 5.5 5 - 9 [facility] Protein, UA Negative Negative - 2000(20) ++++ mg/dL [facility] Spec Grav, UA 1.02 1 - 1.03 [facility] Urobilinogen, UA 1.0 0.2 - 12 mg/dL [facility] Urinalysis macro (dipstick) panel (U)on 04-30-2024 Bilirubin, UA Negative Negative - 4(70) +++ mg/dL [facility] Blood, UA Negative Negative - 50 Fuad/mcL [facility] Clarity, UA Clear [facility] Color, UA Yellow [facility] Glucose, UA Negative Negative - 2000(110) ++++ mg/dL [facility] Interpretation and review of laboratory results Abnormal [facility] Ketones, UA Positive Negative - 160(16) ++++ mg/dL [facility] Comment on above: trace Leukocytes, UA Negative Negative - 500+++ Sandie/mcL [facility] Nitrite, UA Negative Negative - Positive [facility] pH, UA 5.5 5 - 9 [facility] Protein, UA Negative Negative - 1999(20) ++++ mg/dL [facility] Spec Grav, UA 1.025 1 - 1.03 [facility] Urobilinogen, UA 0.2 0.2 - 12 mg/dL [facility] Basophils Auto (Bld) [#/Vol] on 04-16-2024 Basophils (Bld) [#/Vol] Automated basophil count 0.0-0.[address] [facility] Basophils/100 WBC Auto (Bld) on 04-16-2024 Basophils/100 WBC (Bld) Automated basophil % 0.2-2.[address] [facility] Buprenorphine [Presence] in Urineon 04-16-2024 Buprenorphine Ql (U) Buprenorphine [Presence] in Urine NEGATIVE [facility] Comment on above: DRUG CLASS TEST SYST EM CUT-OFF CONCENTRATIONS ARE ASFOLLOWS:AMP (Amphetamine): 500 ng/mLBAR (Barbiturates): 200 ng/mLBZO (Benzodiazepines): 150 ng/mLBUP (Buprenorphine): 10 ng/mLCOC (Cocaine): 150 ng/mLmAMP (Methamphetamine): 500 ng/mLMTD (Methadone): 200 ng/mLOPI (Opiates): 100 ng/mLOXY (Oxycodone): 100 ng/mLPCP (Phencyclidine): 25 ng/mLTHC (Cannabinoids): 50 ng/mLTCA (Trycyclic Antidepressants): 300 ng/mL Eosinophils/100 WBC Auto (Bl d)on 04-16-2024 Eosinophils/100 WBC (Bld) Automated eosinophil % Low 0.9-7.[address] [facility] Erythrocyte distribution wid th Auto (RBC) [Ratio]on 04-16-2024 Erythrocyte distribution width (RBC) [Ratio] Erythrocyte distribution width [Ratio] by Automated count 11.0-15.[address] [facility] Glucose mean value [Mass/vol ume] in Blood Estimated from glycated hemoglobinon 04-16-2024 Average glucose Estimated from glycated hemoglobin (Bld) [Mass/Vol] Glucose mean value [Mass/volume] in Blood Estimated from glycated hemoglobin [facility] HBV surface Ag IA Qlon 04-16 Hepatitis B Surface Antigen Negative Negative [facility] Comment on above: Performed at: [facility] [address] [place] [id number] Director: Sheldon Polo PhD, Phone: [phone] HIV 1 and HIV-2 antibody ass ay with HIV-1 p24 antigen detectionon 04-16-2024 HIV 1+2 Ab+HIV1 p24 Ag IA Ql HIV 1 and HIV-2 antibody assay with HIV-1 p24 antigen detection Non Reactive [facility] Comment on above: HIV-1/HIV-2 antibodi es and HIV-1 p24 antigen were NOTdetected. There is no laboratory evidence of HIV infection.HIV NegativePerformed at: [facility] [address] [id number] Director: Sheldon Polo PhD, Phone: [phone] Hematocrit Auto (Bld) [Volum e fraction]on 04-16-2024 Hematocrit (Bld) [Volume fraction] Hematocrit [Volume Fraction] of Blood by Automated count 36.0-48.[address] [facility] Hemoglobin [Mass/volume] in Bloodon 04-16-2024 Hemoglobin (Bld) [Mass/Vol] Hemoglobin [Mass/volume] in Blood 12.0-16.[address] [facility] Laboratory - Drug toxicology on 04-16-2024 Amphetamines Ql (U) Negative NEGATIVE [facility] Benzodiazepines Ql (U) Negative NEGATIVE [facility] Cocaine Ql (U) Negative NEGATIVE [facility] Opiates Ql (U) Negative NEGATIVE [facility] Phencyclidine Ql (U) Negative NEGATIVE [facility] Laboratory - Hematology and Cell countson 04-16-2024 HbA1c (Bld) [Mass fraction] 4.8 % 4.5-6.[address] [facility] Comment on above: ADA RECOMMENDED LIMI T 4.0 - 6.0ADA THERAPEUTIC TARGET < 7.0ACTION SUGGESTED> 7.0 Immature granulocytes/100 WBC (Bld) 0.6 % High 0.0-0.[address] [facility] Leukocytes [#/volume] correc leonidas for nucleated erythrocytes in Blood by Automated counon 04-16-2024 WBC corrected for nucl RBC Auto (Bld) [#/Vol] Leukocytes [#/volume] corrected for nucleated erythrocytes in Blood by Automated coun 4.0-11.[address] [facility] Lymphocytes Auto (Bld) [#/Vo l]on 04-16-2024 Lymphocytes (Bld) [#/Vol] Lymphocytes [#/volume] in Blood by Automated count 1.2-3.[address] [facility] Lymphocytes/100 WBC Auto (Bl d)on 04-16-2024 Lymphocytes/100 WBC (Bld) Lymphocytes/100 leukocytes in Blood by Automated count Low 20.5-60.[address] [facility] MCH Auto (RBC) [Entitic mass ]on 04-16-2024 MCH (RBC) [Entitic mass] MCH [Entitic mass] by Automated count 26.7-34.[address] [facility] MCHC Auto (RBC) [Mass/Vol]on 04-16-2024 MCHC (RBC) [Mass/Vol] MCHC [Mass/volume] by Automated count High 29.9-35.[address] [facility] MCV Auto (RBC) [Entitic vol] on 04-16-2024 MCV (RBC) [Entitic vol] MCV [Entitic volume] by Automated count 81.0-99.[address] [facility] MLR HEMOGLOBIN A1Con 024 Glucose [Mass/Vol] 91 mg/dL [facility] HbA1c (Bld) [Mass fraction] 4.8 % 4.5 - 6.2 % [facility] Comment on above: ADA RECOMMENDED LIMI T 4.0 - 6.0 ADA THERAPEUTIC TARGET < 7.0 ACTION SUGGESTED > 7.0 [facility] Methadone [Presence] in Urin e by Screen methodon 04-16-2024 Methadone Screen Ql (U) Methadone [Presence] in Urine by Screen method NEGATIVE [facility] Monocytes Auto (Bld) [#/Vol] on 04-16-2024 Monocytes (Bld) [#/Vol] Automated blood monocyte count 0.3-0.[address] [facility] Monocytes/100 WBC Auto (Bld) on 04-16-2024 Monocytes/100 WBC (Bld) Automated monocyte % 1.7-12.[address] [facility] Neutrophils Auto (Bld) [#/Vo l]on 04-16-2024 Neutrophils (Bld) [#/Vol] Neutrophils [#/volume] in Blood by Automated count High 1.4-6.[address] [facility] Neutrophils/100 WBC Auto (Bl d)on 04-16-2024 Neutrophils/100 WBC (Bld) Automated neutrophil % 43.0-75.[address] [facility] No Panel Informationon 04-16 Eosinophils # (Auto) 0.1 10 3/uL 0.0-0.7 [facility] Hepatitis C Interpretation Comment . [facility] Comment on above: Not infected with HC V unless early or acute infection issuspected (which may be delayed in an immunocompromisedindividual), or other evidence exists to indicate HCVinfection. Immature Granulocyte # (Auto) 0.05 10 3/uL High 0.00-0.[address] [facility] RPR Quantitative Confirmation Non Reactive titer NonRea<1:[address] [facility] Comment on above: Please Note: This te st does not meet current guidelines forscreening and diagnosis of syphilis. This test isintended for following treatment response in patients beingtreated for syphilis infection. To screen for syphilisinfection, a reflex cascade that includes both RPR and atreponema-specific assay should be utilized, such asTreponema pallidum (Syphilis) Screening Floyd (311927) orRapid Plasma Reagin (RPR) Test With Reflex to QuantitativeRPR and Confirmatory Treponema pallidum Antibodies([id number]).Performed at: [facility] [id number] Director: Sheldon Polo PhD, Phone: [phone] Rubella IgG Antibody 7.20 index Immune >0.[address] [facility] Comment on above: Non-immune <0.90 Equ ivocal 0.90 - 0.99 Immune >0.99 Urine Barbiturates Screen Negative NEGATIVE [facility] Urine Marijuana (THC) Screen Negative NEGATIVE [facility] Urine Methamphetamines Screen Negative NEGATIVE [facility] Platelet mean volume Auto (B ld) [Entitic vol]on 04-16-2024 Platelet mean volume (Bld) [Entitic vol] Platelet mean volume [Entitic volume] in Blood by Automated count 9.5-13.[address] [facility] Platelets Auto (Bld) [#/Vol] on 04-16-2024 Platelets (Bld) [#/Vol] Platelets [#/volume] in Blood by Automated count 150-[address] [facility] RBC Auto (Bld) [#/Vol]on RBC (Bld) [#/Vol] Erythrocytes [#/volume] in Blood by Automated count 4.20-5.[address] [facility] Serum or plasma hepatitis C virus antibody signal/cutoff ratio by immunoassay (relation 04-16-2024 HCV Ab Signal/Cutoff IA [Rel units/Vol] Serum or plasma hepatitis C virus antibody signal/cutoff ratio by immunoassay (relati Non Reactive [facility] Urine tricyclic antidepressa nt measurementon 04-16-2024 Tricyclic antidepressants (U) [Mass/Vol] Urine tricyclic antidepressant measurement NEGATIVE [facility] oxyCODONE+oxyMORphone [Prese nce] in Urine by Screen methodon 04-16-2024 oxyCODONE+oxyMORphone Screen Ql (U) oxyCODONE+oxyMORphone [Presence] in Urine by Screen method NEGATIVE [facility] BOX TESTon 04-13-2024 BOX TEST SENT OUT 04/13/2024 [facility] BOX1 [facility] BOX2 [facility] HCG ( test) Ql (U)o n 03-23-2024 Interpretation and review of laboratory results Abnormal [facility] Preg Test, Ur Positive Negative [facility] Urinalysis macro (dipstick) panel (U)on 03-23-2024 Bilirubin, UA Negative Negative - 4(70) +++ mg/dL [facility] Blood, UA Negative Negative - 50 Fuad/mcL [facility] Clarity, UA Clear [facility] Color, UA Yellow [facility] Glucose, UA Negative Negative - 1999(110) ++++ mg/dL [facility] Interpretation and review of laboratory results Abnormal [facility] Ketones, UA Positive Negative - 160(16) ++++ mg/dL [facility] Leukocytes, UA Negative Negative - 500+++ Sandie/mcL [facility] Nitrite, UA Negative Negative - Positive [facility] pH, UA 5.5 5 - 9 [facility] Protein, UA Negative Negative - 1999(20) ++++ mg/dL [facility] Spec Grav, UA 1.03 1 - 1.03 [facility] Urobilinogen, UA 0.2 0.2 - 12 mg/dL [facility] Laboratory - Chemistry and C hemistry - challengeon 03-17-2024 Bilirubin Ql (U) Negative NEGATIVE [facility] Glucose (U) [Mass/Vol] Negative NEGATIVE [facility] Ketones Ql (U) Negative NEGATIVE [facility] pH (U) 7.0 [pH] 5.0-9.[address] [facility] Specific gravity (U) [Rel density] 1.020 1.005-1.[address] [facility] Urobilinogen Qn (U) 1.0 {Chanel'U}/dL 0.2-1.[address] [facility] Laboratory - Specimen inform ationon 03-17-2024 Appearance (U) CLEAR CLEAR [facility] Color (U) LT. YELLOW YELLOW [facility] Laboratory - Urinalysison Leukocyte esterase Test strip Ql (U) TRACE Abnormal NEGATIVE [facility] [facility] Mucus Ql (Urine sed) TRACE Abnormal NONE SEEN [facility] Nitrite Ql (U) Negative NEGATIVE [facility] Protein Ql (U) Negative NEG/TRACE [facility] No Panel Informationon 03-17 Human Chorionic Gonadotropin, Quant 68446 mIU/mL [facility] Comment on above: 5-50 0.2-1 [id number] 0 1-2 BITAL643-8,000 2-3 OLYAY782-04,000 3-4 WEEKS1,000-50,000 4-5 WEEKS10,000-100,000 5-6 WEEKS15,000-200,000 6-8 WEEKS10,000-100,000 2-3 MONTHS Miscellaneous Test Comment See comment [facility] Comment on above: Specimen Source: UCC - Urine,Clean Catch - Urine CC - 200.100 Urine Bacteria MODERATE #/HPF Abnormal NONE SEEN [facility] Urine Culture Reflexed YES [facility] Urine Culture Result 1 \R\ Urine Culture, Routine [facility] Urine Microscopic Review YES [facility] Urine Occult Blood MODERATE Abnormal NEGATIVE [facility] Urine Other Casts NONE SEEN #/LPF NONE SEEN [facility] Urine Other Crystals None Seen #/HPF None Seen [facility] Urine RBC 2-5 #/HPF Abnormal 0-[address] [facility] Urine Squamous Epithelial Cells MODERATE #/LPF Abnormal NONE/RARE [facility] Urine WBC 0-2 #/HPF Abnormal NONE SEEN [facility] HCG ( test) Ql (U)o n 03-14-2024 Interpretation and review of laboratory results Abnormal [facility] Preg Test, Ur Positive Negative [facility] Urinalysis macro (dipstick) panel (U)on 03-14-2024 Bilirubin, UA Positive Negative - 4(70) +++ mg/dL [facility] Comment on above: small Blood, UA Positive Negative - 50 Fuad/mcL [facility] Comment on above: moderate Clarity, UA Clear [facility] Color, UA Yellow [facility] Glucose, UA Negative Negative - 2000(110) ++++ mg/dL [facility] Interpretation and review of laboratory results Abnormal [facility] Ketones, UA Positive Negative - 160(16) ++++ mg/dL [facility] Comment on above: 40 Leukocytes, UA Negative Negative - 500+++ Sandie/mcL [facility] Nitrite, UA Negative Negative - Positive [facility] pH, UA 5.5 5 - 9 [facility] Protein, UA Negative Negative - 2000(20) ++++ mg/dL [facility] Spec Grav, UA 1.03 1 - 1.03 [facility] Urobilinogen, UA 0.2 0.2 - 12 mg/dL [facility] No Panel Informationon 03-08 Human Chorionic Gonadotropin, Quant 2190 mIU/mL [facility] Comment on above: 5-50 0.2-1 [id number] 0 1-2 HPUIL696-4,000 2-3 SFJLA362-05,000 3-4 WEEKS1,000-50,000 4-5 WEEKS10,000-100,000 5-6 WEEKS15,000-200,000 6-8 WEEKS10,000-100,000 2-3 MONTHS [facility] PREG QUANT HCGon 024 HCG QUANTITATIVE 2190 mIU/mL [facility] Comment on above: 5-50 0.2-1 WEEK 50-500 1-2 WEEKS 100-5,000 2-3 WEEKS 500-10,000 3-4 WEEKS 1,000-50,000 4-5 WEEKS 10,000-100,000 5-6 WEEKS 15,000-200,000 6-8 WEEKS 10,000-100,000 2-3 MONTHS [facility] No Panel Informationon 03-02 Human Chorionic Gonadotropin, Quant 67 mIU/mL [facility] Comment on above: 5-50 0.2-1 [id number] 0 1-2 JLHQQ043-2,000 2-3 DCHLP935-35,000 3-4 WEEKS1,000-50,000 4-5 WEEKS10,000-100,000 5-6 WEEKS15,000-200,000 6-8 WEEKS10,000-100,000 2-3 MONTHS No Panel Informationon 02-28 Human Chorionic Gonadotropin, Quant 30 mIU/mL [facility] Comment on above: 5-50 0.2-1 IKPA44-70 0 1-2 JAOIH797-6,000 2-3 RCPSM412-95,000 3-4 WEEKS1,000-50,000 4-5 WEEKS10,000-100,000 5-6 WEEKS15,000-200,000 6-8 WEEKS10,000-100,000 2-3 MONTHS Basophils Auto (Bld) [#/Vol] on 02-27-2024 Basophils (Bld) [#/Vol] Automated basophil count 0.0-0.[address] [facility] Basophils/100 WBC Auto (Bld) on 02-27-2024 Basophils/100 WBC (Bld) Automated basophil % 0.2-2.[address] [facility] Eosinophils/100 WBC Auto (Bl d)on 02-27-2024 Eosinophils/100 WBC (Bld) Automated eosinophil % Low 0.9-7.[address] [facility] Erythrocyte distribution wid th Auto (RBC) [Ratio]on 02-27-2024 Erythrocyte distribution width (RBC) [Ratio] Erythrocyte distribution width [Ratio] by Automated count 11.0-15.[address] [facility] Estimated glomerular filtrat ion rate (GFR) non- Americanon 02-27-2024 GFR/1.73 sq M.predicted among non-blacks MDRD (S/P/Bld) [Vol rate/Area] Estimated glomerular filtration rate (GFR) non- >=60 mL/min/1.73 m [address] [facility] HCG ( test) Amira d Ql (U)on 02-27-2024 HCG ( test) Ql (U) Urine human chorionic gonadotropin (hCG) detection by immunoassay Abnormal NEGATIVE [facility] Hematocrit Auto (Bld) [Volum e fraction]on 02-27-2024 Hematocrit (Bld) [Volume fraction] Hematocrit [Volume Fraction] of Blood by Automated count 36.0-48.[address] [facility] Hemoglobin [Mass/volume] in Bloodon 02-27-2024 Hemoglobin (Bld) [Mass/Vol] Hemoglobin [Mass/volume] in Blood 12.0-16.[address] [facility] Laboratory - Chemistry and C hemistry - challengeon 02-27-2024 Calcium [Mass/Vol] 9.4 mg/dL 8.5-10.1 [facility] Chloride [Moles/Vol] 104 mmol/L 98-[address] [facility] CO2 [Moles/Vol] 22.6 mmol/L 21.0-32.0 [facility] Creatinine [Mass/Vol] 0.79 mg/dL 0.55-1.02 [facility] GFR/1.73 sq M.predicted MDRD (S/P/Bld) [Vol rate/Area] mL/min/{1.73_m2} >=60 mL/min/1.73 m [address] [facility] Glucose [Mass/Vol] 88 mg/dL 74-106 [facility] Potassium [Moles/Vol] 3.4 mmol/L Low 3.5-5.1 [facility] Sodium [Moles/Vol] 139 mmol/L 136-145 [facility] Urea nitrogen [Mass/Vol] 10.0 mg/dL 7.0-18.[address] [facility] Urea nitrogen/Creatinine [Mass ratio] 12.7 mg/mg [facility] Bilirubin Ql (U) Negative NEGATIVE [facility] Glucose (U) [Mass/Vol] Negative NEGATIVE [facility] Ketones Ql (U) 15 mg/dL Abnormal NEGATIVE [facility] pH (U) 6.0 [pH] 5.0-9.[address] [facility] Specific gravity (U) [Rel density] 1.025 1.005-1.[address] [facility] Urobilinogen Qn (U) 0.2 {Chanel'U}/dL 0.2-1.[address] [facility] Laboratory - Hematology and Cell countson 02-27-2024 Immature granulocytes/100 WBC (Bld) 0.1 % 0.0-0.[address] [facility] Laboratory - Specimen inform ationon 02-27-2024 Appearance (U) CLEAR CLEAR [facility] Color (U) LT. YELLOW YELLOW [facility] Laboratory - Urinalysison Leukocyte esterase Test strip Ql (U) Negative NEGATIVE [facility] Nitrite Ql (U) Negative NEGATIVE [facility] Protein Ql (U) Negative NEG/TRACE [facility] Leukocytes [#/volume] correc leonidas for nucleated erythrocytes in Blood by Automated counon 02-27-2024 WBC corrected for nucl RBC Auto (Bld) [#/Vol] Leukocytes [#/volume] corrected for nucleated erythrocytes in Blood by Automated coun 4.0-11.[address] [facility] Lymphocytes Auto (Bld) [#/Vo l]on 02-27-2024 Lymphocytes (Bld) [#/Vol] Lymphocytes [#/volume] in Blood by Automated count 1.2-3.[address] [facility] Lymphocytes/100 WBC Auto (Bl d)on 02-27-2024 Lymphocytes/100 WBC (Bld) Lymphocytes/100 leukocytes in Blood by Automated count 20.5-60.[address] [facility] MCH Auto (RBC) [Entitic mass ]on 02-27-2024 MCH (RBC) [Entitic mass] MCH [Entitic mass] by Automated count 26.7-34.[address] [facility] MCHC Auto (RBC) [Mass/Vol]on 02-27-2024 MCHC (RBC) [Mass/Vol] MCHC [Mass/volume] by Automated count High 29.9-35.[address] [facility] MCV Auto (RBC) [Entitic vol] on 02-27-2024 MCV (RBC) [Entitic vol] MCV [Entitic volume] by Automated count 81.0-99.[address] [facility] Monocytes Auto (Bld) [#/Vol] on 02-27-2024 Monocytes (Bld) [#/Vol] Automated blood monocyte count 0.3-0.[address] [facility] Monocytes/100 WBC Auto (Bld) on 02-27-2024 Monocytes/100 WBC (Bld) Automated monocyte % 1.7-12.[address] [facility] Neutrophils Auto (Bld) [#/Vo l]on 02-27-2024 Neutrophils (Bld) [#/Vol] Neutrophils [#/volume] in Blood by Automated count 1.4-6.[address] [facility] Neutrophils/100 WBC Auto (Bl d)on 02-27-2024 Neutrophils/100 WBC (Bld) Automated neutrophil % 43.0-75.[address] [facility] No Panel Informationon 02-26 Eosinophils # (Auto) 0.1 10 3/uL 0.0-0.7 [facility] Human Chorionic Gonadotropin, Quant 16 mIU/mL [facility] Comment on above: 5-50 0.2-1 [id number] 0 1-2 TZDXQ877-5,000 2-3 XNRSS073-15,000 3-4 WEEKS1,000-50,000 4-5 WEEKS10,000-100,000 5-6 WEEKS15,000-200,000 6-8 WEEKS10,000-100,000 2-3 MONTHS Immature Granulocyte # (Auto) 0.01 10 3/uL 0.00-0.[address] [facility] Urine Microscopic Review NO [facility] Urine Occult Blood Negative NEGATIVE [facility] Platelet mean volume Auto (B ld) [Entitic vol]on 02-27-2024 Platelet mean volume (Bld) [Entitic vol] Platelet mean volume [Entitic volume] in Blood by Automated count 9.5-13.[address] [facility] Platelets Auto (Bld) [#/Vol] on 02-27-2024 Platelets (Bld) [#/Vol] Platelets [#/volume] in Blood by Automated count 150-[address] [facility] RBC Auto (Bld) [#/Vol]on RBC (Bld) [#/Vol] Erythrocytes [#/volume] in Blood by Automated count 4.20-5.[address] [facility] Serum or plasma anion gap de terminationon 02-27-2024 Anion gap [Moles/Vol] Serum or plasma an ion gap determination [facility] No Panel Informationon 02-20 Human Chorionic Gonadotropin, Quant <1 mIU/mL [facility] Comment on above: 5-50 0.2-1 [id number] 0 1-2 BVFOI639-4,000 2-3 WNDST605-43,000 3-4 WEEKS1,000-50,000 4-5 WEEKS10,000-100,000 5-6 WEEKS15,000-200,000 6-8 WEEKS10,000-100,000 2-3 MONTHS URETHRITIS/DISCHARGE PLUS VA GINITIS (HTRX)on 02-10-2024 ATOPOBIUM VAGINAE 0.000 [facility] ATOPOBIUM VAGINAE Not detected [facility] BVAB 2,3 (BACTERIAL VAGINOSIS ASSOCIATED BACTERIA 2, 3); MOBILUNCUS SPP 0.000 [facility] BVAB 2,3 (BACTERIAL VAGINOSIS ASSOCIATED BACTERIA 2, 3); MOBILUNCUS SPP Not detected [facility] ALICIA ALBICANS, PARAPSILOSIS, TROPICALIS 0.000 [facility] ALICIA ALBICANS, PARAPSILOSIS, TROPICALIS Not detected [facility] ALICIA GLABRATA 0.000 [facility] ALICIA GLABRATA Not detected [facility] ALICIA KRUSEI 0.000 [facility] ALICIA KRUSEI Not detected [facility] CHLAMYDIA TRACHOMATIS 0.000 [facility] CHLAMYDIA TRACHOMATIS Not detected N [facility] GARDNERELLA VAGINALIS 0.000 [facility] GARDNERELLA VAGINALIS Not detected N [facility] MEGASPHAERA (TYPES 1, 2) 0.000 [facility] MEGASPHAERA (TYPES 1, 2) Not detected [facility] MYCOPLASMA GENITALIUM 0.000 [facility] MYCOPLASMA GENITALIUM Not detected N [facility] NEISSERIA GONORRHOEAE 0.000 [facility] NEISSERIA GONORRHOEAE Not detected N [facility] TRICHOMONAS VAGINALIS 0.000 [facility] TRICHOMONAS VAGINALIS Not detected N [facility] HCG ( test) Ql (U)o n 02-08-2024 Interpretation and review of laboratory results Normal [facility] Preg Test, Ur Negative [facility] Urinalysis macro (dipstick) panel (U)on 02-08-2024 Bilirubin, UA Negative Negative - 4(70) +++ mg/dL [facility] Blood, UA Negative Negative - 50 Fuad/mcL [facility] Clarity, UA Clear [facility] Color, UA Yellow [facility] Glucose, UA Negative Negative - 2000(110) ++++ mg/dL [facility] Interpretation and review of laboratory results Normal [facility] Ketones, UA Negative Negative - 160(16) ++++ mg/dL [facility] Leukocytes, UA Negative Negative - 500+++ Sandie/mcL [facility] Nitrite, UA Negative Negative - Positive [facility] pH, UA 7.5 5 - 9 [facility] Protein, UA Negative Negative - 2000(20) ++++ mg/dL [facility] Spec Grav, UA 1.020 1 - 1.03 [facility] Urobilinogen, UA 0.2 0.2 - 12 mg/dL [facility] Vaginitis Plus (VG+)on 02-01 Atopobium Vaginae Low - 0 Normal . [facility] Comment on above: Result Comment: This test was developed and its performance characteristics determined by [facility]. It has not been cleared or approved by the Food and Drug Administration. Performed By: #### V AGINITIS+ #### [facility] , BVAB2 Low - 0 Normal . [facility] Comment on above: Result Comment: This test was developed and its performance characteristics determined by [facility]. It has not been cleared or approved by the Food and Drug Administration. Performed By: #### V AGINITIS+ #### [facility] , Alicia Albicans, ELDON Positive Critically abnormal Negative [facility] Comment on above: Result Comment: This test was developed and its performance characteristics determined by [facility]. It has not been cleared or approved by the Food and Drug Administration. Performed By: #### V AGINITIS+ #### [facility] , Alicia Glabrata, ELDON Negative Normal Negative [facility] Comment on above: Result Comment: This test was developed and its performance characteristics determined by [facility]. It has not been cleared or approved by the Food and Drug Administration. PERFORMED BY: [address] [place] [address] PATHOLOGIST CORRESPONDENCE RENEW CLERK IRENE TURPIN M.D. Performed By: #### V AGINITIS+ #### [facility] , Chlamydia Trachomotis, ELDON Negative Normal Negative [facility] Comment on above: Performed By: #### V AGINITIS+ #### [facility] , Megasphaera Low - 0 Normal . [facility] Comment on above: Result Comment: [...] ELDON Negative Normal Negative [facility] Comment on above: Result Comment: Perf ormed at: =G - [facility] [address] [id number] Draw Frame Operator: Bri Keenan MD, Phone: [phone] Performed By: #### V AGINITIS+ #### [facility] , Tric Vag ELDON Negative Normal Negative [facility] Comment on above: Performed By: #### V AGINITIS+ #### [facility] , Basophils Auto (Bld) [#/Vol] on 01-19-2024 Basophils (Bld) [#/Vol] 0.0 10 3/uL 0.0-0.[address] [facility] Basophils/100 WBC Auto (Bld) on 01-19-2024 Basophils/100 WBC (Bld) 0.4 % 0.2-2.[address] [facility] Eosinophils/100 WBC Auto (Bl d)on 01-19-2024 Eosinophils/100 WBC (Bld) 1.0 % 0.9-7.[address] [facility] Erythrocyte distribution wid th Auto (RBC) [Ratio]on 01-19-2024 Erythrocyte distribution width (RBC) [Ratio] 11.7 % 11.0-15.[address] [facility] Estimated glomerular filtrat ion rate (GFR) non- Americanon 01-19-2024 GFR/1.73 sq M.predicted among non-blacks MDRD (S/P/Bld) [Vol rate/Area] mL/min/{1.73_m2} >=[address] [facility] Hematocrit Auto (Bld) [Volum e fraction]on 01-19-2024 Hematocrit (Bld) [Volume fraction] 39.6 % 36.0-48.[address] [facility] Hemoglobin [Mass/volume] in Bloodon 01-19-2024 Hemoglobin (Bld) [Mass/Vol] 14.3 g/dL 12.0-16.[address] [facility] Laboratory - Chemistry and C hemistry - challengeon 01-19-2024 Calcium [Mass/Vol] 8.7 mg/dL 8.5-10.1 [facility] Chloride [Moles/Vol] 100 mmol/L 98-[address] [facility] CO2 [Moles/Vol] 27.5 mmol/L 21.0-32.0 [facility] Creatinine [Mass/Vol] 0.88 mg/dL 0.55-1.02 [facility] GFR/1.73 sq M.predicted MDRD (S/P/Bld) [Vol rate/Area] mL/min/{1.73_m2} >=[address] [facility] Glucose [Mass/Vol] 94 mg/dL 74-106 [facility] Potassium [Moles/Vol] 3.3 mmol/L Low 3.5-5.1 [facility] Sodium [Moles/Vol] 135 mmol/L Low 136-145 [facility] Urea nitrogen [Mass/Vol] 12.0 mg/dL 7.0-18.[address] [facility] Urea nitrogen/Creatinine [Mass ratio] 13.6 mg/mg [facility] Laboratory - Hematology and Cell countson 01-19-2024 Immature granulocytes/100 WBC (Bld) 0.0 % 0.0-0.[address] [facility] Leukocytes [#/volume] correc leonidas for nucleated erythrocytes in Blood by Automated counon 01-19-2024 WBC corrected for nucl RBC Auto (Bld) [#/Vol] 4.8 10 3/uL 4.0-11.[address] [facility] Lymphocytes Auto (Bld) [#/Vo l]on 01-19-2024 Lymphocytes (Bld) [#/Vol] 1.2 10 3/uL 1.2-3.[address] [facility] Lymphocytes/100 WBC Auto (Bl d)on 01-19-2024 Lymphocytes/100 WBC (Bld) 25.1 % 20.5-60.[address] [facility] MCH Auto (RBC) [Entitic mass ]on 01-19-2024 MCH (RBC) [Entitic mass] 30.4 pg 26.7-34.[address] [facility] MCHC Auto (RBC) [Mass/Vol]on 01-19-2024 MCHC (RBC) [Mass/Vol] 36.1 g/dL High 29.9-35.2 [facility] MCV Auto (RBC) [Entitic vol] on 01-19-2024 MCV (RBC) [Entitic vol] 84.1 fL 81.0-99.[address] [facility] Monocytes Auto (Bld) [#/Vol] on 01-19-2024 Monocytes (Bld) [#/Vol] 0.6 10 3/uL 0.3-0.[address] [facility] Monocytes/100 WBC Auto (Bld) on 01-19-2024 Monocytes/100 WBC (Bld) 11.6 % 1.7-12.[address] [facility] Neutrophils Auto (Bld) [#/Vo l]on 01-19-2024 Neutrophils (Bld) [#/Vol] 3.0 10 3/uL 1.4-6.[address] [facility] Neutrophils/100 WBC Auto (Bl d)on 01-19-2024 Neutrophils/100 WBC (Bld) 61.9 % 43.0-75.[address] [facility] No Panel Informationon 01-18 Eosinophils # (Auto) 0.1 10 3/uL 0.0-0.7 [facility] Human Chorionic Gonadotropin, Qual Negative NEGATIVE [facility] Immature Granulocyte # (Auto) 0.00 10 3/uL 0.00-0.[address] [facility] Platelet mean volume Auto (B ld) [Entitic vol]on 01-19-2024 Platelet mean volume (Bld) [Entitic vol] 11.2 fL 9.5-13.[address] [facility] Platelets Auto (Bld) [#/Vol] on 01-19-2024 Platelets (Bld) [#/Vol] 137 10 3/uL Low 150-[address] [facility] RBC Auto (Bld) [#/Vol]on RBC (Bld) [#/Vol] 4.71 10 6/uL 4.20-5.40 [facility] Serum or plasma anion gap de terminationon 01-19-2024 Anion gap [Moles/Vol] 10.8 mmol/L [facility] Choriogonadotropin.beta subu nit ( test) [Presence] in Urineon 01-03-2024 Beta HCG ( test) Ql (U) Negative [facility] Influenza virus A and B and SARS-CoV-2 (COVID-19) RNA panel - Respiratory system specon 01-03-2024 Influenza virus A and B RNA and SARS-CoV-2 (COVID-19) N gene panel ELDON+probe (Resp) Negative [facility] Laboratory - Microbiology an d Antimicrobial susceptibilityon 01-03-2024 SARS-CoV-2 (COVID-19) RNA EDLON+probe Ql (Unsp spec) Negative [facility] No Panel Informationon 01-02 POC Influenza B (ELDON) Negative [facility] No Panel InformationOrdered By: Evelyn Vu on 01-03-2024 Quick Strep (POC) [facility] Quick Strepon 10-02-2022 S. pyogenes Org specific cx Ql (Throat) Negative [facility] Other Quick Strep [facility] Other COVID19(IDNOW)on 11-30-2019 COVID19(IDNOW) NOT DETECTED Normal NOT DETECTED [facility] Comment on above: Result Comment: Nega tive results do not preclude SARS-CoV-2 infection and should not be used as the sole basis for treatiment or other patient management. ENHANCED CONTACT, AND DROPLET ISOLATION IS REQUIRED FOR INPATIENTS WITH SARS-CoV-2. Performed By: #### C OVID19(IDNOW) #### [facility] [address] [place] [address] Age at specimen collection = Normal [facility] Comment on above: Performed By: #### C OVID19(IDNOW) #### [id number] [place] [address] Hematologyon 05-11-2019 Basophils (Bld) [#/Vol] 0.0 10*3/uL 0.0-0.1 [facility] Basophils/100 WBC (Bld) 0.40 % 0.0-1.0 [facility] Eosinophils (Bld) [#/Vol] 0.10 10*3/uL 0.0-0.5 [facility] Eosinophils/100 WBC (Bld) 1.30 % 0.0-7.0 [facility] Hematocrit (Bld) [Volume fraction] 41.30 % 35.7-47.1 [facility] Hemoglobin (Bld) [Mass/Vol] 14.10 g/dL 11.9-15.7 [facility] Lymphocytes (Bld) [#/Vol] 2.20 10*3/uL 0.9-3.1 [facility] Lymphocytes/100 WBC (Bld) 29.30 % 15.0-46.0 [facility] MCH (RBC) [Entitic mass] 29.90 pg 23.2-33.3 [facility] MCV (RBC) [Entitic vol] 87.50 fL 83.4-101.4 [facility] [employer] [facility] [facility] Monocytes (Bld) [#/Vol] 0.60 10*3/uL 0.3-1.0 [facility] [employer] [facility] Monocytes/100 WBC (Bld) 8.60 % 4.0-12.0 [facility] [employer] [facility] Neutrophils (Bld) [#/Vol] 4.50 10*3/uL 1.8-7.9 [facility] [employer] [facility] Neutrophils/100 WBC (Bld) 60.0 % 43.0-76.0 [facility] [employer] [facility] Platelets (Bld) [#/Vol] 160.0 10*3/uL 150-400 [facility] [employer] [facility] RBC (Bld) [#/Vol] 4.720 10*6/uL 3.72-5.24 [facility] [employer] [facility] WBC (Bld) [#/Vol] 7.40 10*3/uL 3.9-10.3 [facility] [employer] [facility] Otheron 05-11-2019 Erythrocyte distribution width (RBC) [Ratio] 12.10 % 11.5-15.5 [facility] [employer] [facility] Immature granulocytes (Bld) [#/Vol] 0.030 10*3/uL 0.00-0.06 [facility] [employer] [facility] Immature granulocytes/100 WBC (Bld) 0.40 % 0.0-0.5 [facility] MCHC (RBC) [Mass/Vol] 34.10 g/dL 32.0-36.0 [facility] [facility] Platelet mean volume (Bld) [Entitic vol] 11.10 fL 8.3-11.5 [facility] [employer] COMMENT [place] [employer] <9.0 0.0-8.9 [place] [employer] 303.0 0.0-17.9 [place] [employer] <36.0 0.0-35.9 [place] [employer] 38.9 0.0-17.9 [place] [employer] [facility] [employer] Thyroidon 05-11-2019 TSH Qn 1.96 m[IU]/L 0.50-4.00 [place] [employer] Basic Metabolic Profon 04-20 (cont.) Normal [facility] Comment on above: Result Comment: Aver age GFR for 20-29 years old: 116 mL/min/1.73sq mChronic Kidney Disease: <60 mL/min/1.73sq mKidney failure: <15 mL/min/1.73sq meGFR calculated using average adult body mass. Additional eGFR calculator available at:[email or web address] Performed By: #### B JOSEPH, CBC ####[address] [place] [address] Anion gap 3 molar conc 11 mmol/L Normal - [facility] Comment on above: Performed By: #### B MP, CBC ####[address] [place] [address] BUN/CRE Ratio 18 Normal -20 [facility] Comment on above: Performed By: #### B MP, CBC ####[address] [place] [address] Calcium mass conc 9.2 mg/dL Normal 8.6-10.4 [facility] Comment on above: Performed By: #### B MP, CBC ####[address] [place] [address] Chloride molar conc 102 mmol/L Normal 98-107 [facility] Comment on above: Performed By: #### B MP, CBC ####[address] [place] [address] CO2 molar conc 26 mmol/L Normal 20-31 [facility] Comment on above: Performed By: #### B MP, CBC ####[address] [place] [address] Creatinine mass conc 0.65 mg/dL Normal 0.50-0.90 [facility] Comment on above: Performed By: #### B MP, CBC ####[address] [place] [address] GFR, Amer >60 Normal >60 [facility] Comment on above: Performed By: #### B MP, CBC ####[address] [place] [address] GFR,non Amer >60 Normal >60 [facility] Comment on above: Performed By: #### B MP, CBC ####[address] [place] [address] Glucose mass conc 89 mg/dL Normal 70-99 [facility] Comment on above: Performed By: #### B MP, CBC ####[address] [place] [address] Potassium molar conc 3.8 mmol/L Normal 3.7-5.3 [facility] Comment on above: Performed By: #### B MP, CBC ####[address] [place] [address] Sodium molar conc 139 mmol/L Normal 135-144 [facility] Comment on above: Performed By: #### B MP, CBC ####[address] [place] [address] Staging: Normal [facility] Comment on above: Result Comment: Stag e 1: Some kidney damage normal GFRStage 2: Mild kidney damage GFR 60-89Stage 3: Moderate kidney damage GFR 30-59Stage 4: Severe kidney damage GFR 15-29Stage 5: Severe kidney damage GFR <15ESRD - chronic treatment by dialysis or transplant Performed By: #### B MP, CBC ####[address] [place] [address] Urea nitrogen mass conc 12 mg/dL Normal 6-20 [facility] Comment on above: Performed By: #### B MP, CBC ####[address] [place] [address] CBCon 04-20-2018 Erythrocyte distribution width Auto Ratio (RBC) 12.1 % Normal 11.8-14.4 [facility] Comment on above: Performed By: #### B MP, CBC ####[address] [place] [address] Hematocrit Auto Volume Fraction (Bld) 42.6 % Normal 36.3-47.1 [facility] Comment on above: Performed By: #### B MP, CBC ####[address] [place] [address] Hemoglobin mass conc (Bld) 14.7 g/dL Normal 11.9-15.1 [facility] Comment on above: Performed By: #### B MP, CBC ####[address] [place] [address] MCH Auto Entitic mass (RBC) 30.2 pg Normal 25.2-33.5 [facility] Comment on above: Performed By: #### B MP, CBC ####[address] [place] [address] MCHC Auto mass conc (RBC) 34.5 g/dL Normal 28.4-34.8 [facility] Comment on above: Performed By: #### B MP, CBC ####[address] [place] [address] MCV Auto Entitic volume (RBC) 87.7 fL Normal 82.6-102.9 [facility] Comment on above: Performed By: #### B MP, CBC ####[address] [place] [address] NRBC Automated 0.0 per 100 WBC Normal 0.0 [facility] Comment on above: Performed By: #### B MP, CBC ####[address] [place] [address] Platelet mean volume Auto Entitic volume (Bld) 10.8 fL Normal 8.1-13.5 [facility] Comment on above: Performed By: #### B MP, CBC ####[address] [place] [address] Platelets Auto #/vol (Bld) 142 10*3/uL Normal 138-453 [facility] Comment on above: Performed By: #### B MP, CBC ####[address] [place] [address] RBC Auto #/vol (Bld) 4.86 10*6/uL Normal 3.95-5.11 [facility] Comment on above: Performed By: #### B MP, CBC ####[address] [place] [address] WBC Auto #/vol (Bld) 6.2 10*3/uL Normal 4.5-13.5 [facility] Comment on above: Performed By: #### B MP, CBC ####[address] [place] [address] HCG, ,Urineon 04-20 HCG.beta subunit ( test) Ql (U) Negative Normal NEG [facility] Comment on above: Result Comment: Spec imens with hCG levels near the threshold of the test (25 mIU/mL) may give a negative or indeterminate result. In such cases, another test should be performed with a new specimen in 48-72 hours. If early is suspected clinically in this setting, correlation with quantitative serum b-hCG level is suggested.[facility] has confirmed the use of plasma for this test. This has not been cleared or approved by the U.S. Food and Drug Administration. The FDA has determined that such clearance is not necessary. Performed By: #### U HCG ####[address] [place] [address] UA w/Reflex Cultureon 2017 Acetoacetic Acid,Ur Negative Normal NEG [facility] Comment on above: Performed By: #### U AX UMICAO ####[address] [place] [address] Bilirubin, SemiQt,Ur Negative Normal NEG [facility] Comment on above: Performed By: #### U AX UMICAO ####[address] [place] [address] Color YELLOW Normal YEL [facility] Comment on above: Performed By: #### U AX, UMICAO ####[address] [place] [address] Glucose,Semi-qnt,Ur Negative Normal [facility] Comment on above: Performed By: #### U AX, UMICAO ####[address] [place] [address] Hemoglobin, Ur Negative Normal NEG [facility] Comment on above: Performed By: #### U AX, UMICAO ####[address] [place] [address] Leuckocyte Esterase Negative Normal NEG [facility] Comment on above: Performed By: #### U AX, UMICAO ####[address] [place] [address] Nitrite,Ur Negative Normal NEG [facility] Comment on above: Performed By: #### U AX, UMICAO ####[address] [place] [address] PH,Ur 6.0 Normal 5.0-9.0 [facility] Comment on above: Performed By: #### U AX, UMICAO ####[address] [place] [address] Protein, Semi-qnt,Ur Negative Normal NEG [facility] Comment on above: Performed By: #### U AX, UMICAO ####[address] [place] [address] Spec. Hoyt,Ur 1.025 High 1.010-1.020 [facility] Comment on above: Performed By: #### U AX, UMICAO ####[address] [place] [address] Turbidity CLEAR Normal CLEAR [facility] Comment on above: Performed By: #### U AX, UMICAO ####[address] [place] [address] Urobilinogen,Ur Normal Normal NORM [facility] Comment on above: Performed By: #### U AX, UMICAO ####[address] [place] [address] Comment NOT REPORTED Normal [facility] Comment on above: Performed By: #### U AX, UMICAO ####[address] [place] [address] Urinalysis,Microon 8 ----- Normal [facility] Comment on above: Performed By: #### U AX, UMICAO ####[address] [place] [address] Bacteria 1+ Abnormal NONE [facility] Comment on above: Performed By: #### U AX, UMICAO ####[address] [place] [address] Epithelial cells 2 TO 5 Normal 0-25 [facility] Comment on above: Performed By: #### U AX, UMICAO ####[address] [place] [address] RBC Test strip #/vol (U) None Normal 0-2 [facility] Comment on above: Performed By: #### U AX, UMICAO ####[address] [place] [address] Urine WBC's 0 TO 2 Normal 0-5 [facility] Comment on above: Performed By: #### U AX, UMICAO ####[address] [place] [address] Amorphous Sediment NOT REPORTED Normal NONE [facility] Comment on above: Performed By: #### U AX, UMICAO ####[address] [place] [address] Casts NOT REPORTED Normal [facility] Comment on above: Performed By: #### U AX, UMICAO ####[address] [place] [address] Crystals NOT REPORTED Normal [facility] Comment on above: Performed By: #### U AX, UMICAO ####[address] [place] [address] Epithelial, Renal NOT REPORTED Normal 0 [facility] Comment on above: Performed By: #### U AX, UMICAO ####[address] [place] [address] Mucus Strands NOT REPORTED Normal NONE [facility] Comment on above: Performed By: #### U AX, UMICAO ####[address] [place] [address] Other Observations NOT REPORTED Normal [facility] Comment on above: Performed By: #### U AX, UMICAO ####[facility] [place] [address] Trichomonas NOT REPORTED Normal NONE [facility] Comment on above: Performed By: #### U AX, UMICAO ####[facility] [place] , [place] [id number] Yeast NOT REPORTED Normal NONE [facility] Comment on above: Performed By: #### U AX, UMICAO ####[facility] [place] , [place] [id number] XR LUMBAR SPINE (2-3 VIEWS)o n 04-20-2018 [...] small bowel loops.Interpreted by:RIVER Jassoigned by:Phil Messer MD04/20/inal result Normal [facility] Otheron 03-08-2018 Negative [facility] Otheron 02-03-2018 Negative [facility] Otheron 01-30-2018 Negative [facility]acon 12-28-2017 Cholesterol [Mass/Vol] 156.0 mg/dL 0-200 [facility] Cholesterol in HDL [Mass/Vol] 54.0 mg/dL 50-100 [facility] Cholesterol in LDL [Mass/Vol] 79.0 mg/dL 0-130 [facility] Triglyceride [Mass/Vol] 116.0 mg/dL 30-150 [facility] Metabolic Panelon 12-28-2017 Albumin [Mass/Vol] 4.70 g/dL 3.7-4.[address] [employer] ALP [Catalytic activity/Vol] 83.0 U/L 31-155 [facility] ALT [Catalytic activity/Vol] 15.0 U/L 0-50 [facility] AST [Catalytic activity/Vol] 19.0 U/L 0-40 [facility] Bilirubin [Mass/Vol] 0.70 mg/dL 0.0-1.0 [facility] Protein [Mass/Vol] 7.80 g/dL 6.3-7.9 [employer] [employer] Otheron 12-28-2017 Albumin/Globulin [Mass ratio] 1.5 {ratio} 1.0-2.4 [facility] Cholesterol in VLDL [Mass/Vol] 23.0 mg/dL 0-39 [facility] Cholesterol.total/Cho lesterol in HDL [Mass ratio] 3 {ratio} [facility] Negative [facility] CBCon 07-28-2017 Erythrocyte distribution width Auto Ratio (RBC) 11.8 % Normal 11.8-14.4 [facility] Comment on above: Performed By: #### C SEN, CP ####[address] [place] [address] Hematocrit Auto Volume Fraction (Bld) 41.2 % Normal 36.3-47.1 [facility] Comment on above: Performed By: #### C BC, CP ####[address] [place] [address] Hemoglobin mass conc (Bld) 14.1 g/dL Normal 11.9-15.1 [facility] Comment on above: Performed By: #### C BC, CP ####[address] [place] [address] MCH Auto Entitic mass (RBC) 28.5 pg Normal 25.2-33.5 [facility] Comment on above: Performed By: #### C BC, CP ####[address] [place] [address] MCHC Auto mass conc (RBC) 34.2 g/dL Normal 28.4-34.8 [facility] Comment on above: Performed By: #### C BC, CP ####[address] [place] [address] MCV Auto Entitic volume (RBC) 83.2 fL Normal 82.6-102.9 [facility] Comment on above: Performed By: #### C BC, CP ####[address] [place] [address] NRBC Automated 0.0 per 100 WBC Normal 0.0 [facility] Comment on above: Result Comment: Perf ormed at [address] [place] [address] Performed By: #### C BC, CP ####[address] [place] [address] Platelet mean volume Auto Entitic volume (Bld) 9.9 fL Normal 8.1-13.5 [facility] Comment on above: Performed By: #### C BC, CP ####[address] [place] [address] Platelets Auto #/vol (Bld) 230 10*3/uL Normal 138-453 [facility] Comment on above: Performed By: #### C BC, CP ####[address] [place] [address] RBC Auto #/vol (Bld) 4.95 10*6/uL Normal 3.95-5.11 [facility] Comment on above: Performed By: #### C BC, CP ####[address] [place] [address] WBC Auto #/vol (Bld) 11.8 10*3/uL Normal 4.5-13.5 [facility] Comment on above: Performed By: #### C SEN, CP ####[address] [place] [address] Comp Metabolic Profon 2017 (cont.) Normal [facility] Comment on above: Result Comment: Aver age GFR for 20-29 years old: 116 mL/min/1.73sq mChronic Kidney Disease: <60 mL/min/1.73sq mKidney failure: <15 mL/min/1.73sq meGFR calculated using average adult body mass. Additional eGFR calculator available at:[email or web address] Performed By: #### C SEN, CP ####[address] [place] [address] Albumin mass conc 4.5 g/dL Normal 3.5-5.2 [facility] Comment on above: Performed By: #### C SEN, CP ####[address] [place] [address] Albumin/Globulin mass ratio 1.3 {ratio} Normal 1.0-2.5 [facility] Comment on above: Performed By: #### C BC, CP ####[address] [place] [address] Alkaline Phos 81 U/L Normal 35-104 [facility] Comment on above: Performed By: #### C BC, CP ####[address] [place] [address] ALT enzyme act/vol 23 U/L Normal 5-33 [facility] Comment on above: Performed By: #### C BC, CP ####[address] [place] [address] Anion gap 3 molar conc 13 mmol/L Normal 9-17 [facility] Comment on above: Performed By: #### C BC, CP ####[address] [place] [address] AST enzyme act/vol 23 U/L Normal <32 [facility] Comment on above: Performed By: #### C BC, CP ####[address] [place] [address] Bilirubin Ql (U) 0.23 mg/dL Low 0.3-1.2 [facility] Comment on above: Performed By: #### C BC, CP ####[address] [place] [address] BUN/CRE Ratio 17 Normal 9-20 [facility] Comment on above: Performed By: #### C BC, CP ####[address] [place] [address] Calcium mass conc 9.5 mg/dL Normal 8.6-10.4 [facility] Comment on above: Performed By: #### C BC, CP ####[address] [place] [address] Chloride molar conc 101 mmol/L Normal 98-107 [facility] Comment on above: Performed By: #### C BC, CP ####[address] [place] [address] CO2 molar conc 23 mmol/L Normal 20-31 [facility] Comment on above: Performed By: #### C BC, CP ####[address] [place] [address] Creatinine mass conc 0.69 mg/dL Normal 0.50-0.90 [facility] Comment on above: Performed By: #### C BC, CP ####[address] [place] [address] GFR, Amer >60 Normal >60 [facility] Comment on above: Performed By: #### C BC, CP ####[address] [place] [address] GFR,non Amer >60 Normal >60 [facility] Comment on above: Performed By: #### C BC, CP ####[address] [place] [address] Glucose mass conc 99 mg/dL Normal 70-99 [facility] Comment on above: Performed By: #### C BC, CP ####[address] [place] [address] Potassium molar conc 3.8 mmol/L Normal 3.7-5.3 [facility] Comment on above: Performed By: #### C BC, CP ####[address] [place] [address] Protein mass conc 8.0 g/dL Normal 6.4-8.3 [facility] Comment on above: Performed By: #### C BC, CP ####[address] [place] [address] Sodium molar conc 137 mmol/L Normal 135-144 [facility] Comment on above: Performed By: #### C BC, CP ####[address] [place] [address] Staging: Normal [facility] Comment on above: Result Comment: Stag e 1: Some kidney damage normal GFRStage 2: Mild kidney damage GFR 60-89Stage 3: Moderate kidney damage GFR 30-59Stage 4: Severe kidney damage GFR 15-29Stage 5: Severe kidney damage GFR <15ESRD - chronic treatment by dialysis or transplantPerformed at [address] [place] [address] Performed By: #### C BC, CP ####[address] , [place] [address] Urea nitrogen mass conc 12 mg/dL Normal 6-20 [facility] Comment on above: Performed By: #### C BC, CP ####[address] [place] [address] HCG, ,Urineon 07-28 HCG.beta subunit ( test) Ql (U) Negative Normal NEG [facility] Comment on above: Result Comment: Spec imens with hCG levels near the threshold of the test (25 mIU/mL) may give a negative or indeterminate result. In such cases, another test should be performed with a new specimen in 48-72 hours. If early is suspected clinically in this setting, correlation with quantitative serum b-hCG level is suggested.[facility] has confirmed the use of plasma for this test. This has not been cleared or approved by the U.S. Food and Drug Administration. The FDA has determined that such clearance is not necessary.Performed at [address] [place] [address] Performed By: #### U HCG, UA ####[address] , [place] [address] Urinalysis, Routineon 2017 Acetoacetic Acid,Ur Negative Normal NEG [facility] Comment on above: Performed By: #### U HCG, UA ####[address] [place] [address] Bilirubin, SemiQt,Ur Negative Normal NEG [facility] Comment on above: Performed By: #### U HCG, UA ####[address] , [place] [address] Color YELLOW Normal YEL [facility] Comment on above: Performed By: #### U HCG, UA ####[address] [place] [address] Glucose,Semi-qnt,Ur Negative Normal NEG [facility] Comment on above: Performed By: #### U HCG, UA ####[address] [place] [address] Hemoglobin, Ur Negative Normal NEG [facility] Comment on above: Performed By: #### U HCG, UA ####[address] [place] [address] Leuckocyte Esterase Negative Normal NEG [facility] Comment on above: Result Comment: Perf ormed at [address] [place] [address] Performed By: #### U HCG, UA ####[address] [place] [address] Nitrite,Ur Negative Normal NEG [facility] Comment on above: Performed By: #### U HCG, UA ####[address] [place] [address] PH,Ur 6.0 Normal 5.0-9.0 [facility] Comment on above: Performed By: #### U HCG, UA ####[address] [place] [address] Protein mass conc Negative Normal NEG [facility] Comment on above: Performed By: #### U HCG, UA ####[address] [place] [address] Spec. Hoyt,Ur 1.025 High 1.010-1.020 [facility] Comment on above: Performed By: #### U HCG, UA ####[address] [place] [address] Turbidity CLEAR Normal CLEAR [facility] Comment on above: Performed By: #### U HCG, UA ####[address] [place] [address] Urobilinogen,Ur Normal Normal NORM [facility] Comment on above: Performed By: #### U HCG, UA ####[facility] [place] [address] Comment NOT REPORTED Normal [facility] Comment on above: Performed By: #### U HCG, UA ####[address] [place] [address] [facility] 0589 Cholesterol mass conc 175.0 mg/dL 0-200 [address] [facility] Triglyceride mass conc 58.0 mg/dL 30-150 [facility] Hematologyon 06-07-2016 Basophils #/vol (Bld) 0.0 10*3/uL 0.0-0.1 Bl [facility] Basophils/100 WBC (Bld) 0.30 % 0.0-1.0 [facility] Eosinophils #/vol (Bld) 0.10 10*3/uL 0.0-0.5 [facility] Eosinophils/100 WBC (Bld) 1.80 % 0.0-7.0 [facility] Hematocrit Volume Fraction (Bld) 40.50 % 35.7-47.1 [facility] Hemoglobin mass conc (Bld) 13.60 g/dL 11.9-15.7 [facility] Lymphocytes #/vol (Bld) 3.40 10*3/uL 0.9-3.1 [facility] Lymphocytes/100 WBC (Bld) 41.0 % 28.0-42.0 [facility] MCH Entitic mass (RBC) 29.60 pg 23.2-33.3 [facility] [employer] [facility] [employer] MCV Entitic volume (RBC) 88.40 fL 82.0-98.4 [facility] [employer] [facility] Monocytes #/vol (Bld) 0.60 10*3/uL 0.3-1.[address] [facility] [employer] [facility] Monocytes/100 WBC (Bld) 7.40 % 4.0-12.0 [facility] [employer] [facility] [employer] Neutrophils #/vol (Bld) 4.20 10*3/uL 1.8-7.9 [facility] [facility] Neutrophils/100 WBC (Bld) 49.50 % 45.6-68.4 [facility] [employer] Platelets #/vol (Bld) 225.0 10*3/uL 150-400 [facility] RBC #/vol (Bld) 4.580 10*6/uL 3.72-5.24 [facility] [employer] WBC #/vol (Bld) 8.30 10*3/uL 3.9-10.3 [facility] [employer] Metabolic Panelon 06-07-2016 Albumin mass conc 4.40 g/dL 3.7-4.5 [facility] [employer] ALP enzyme act/vol 77.0 U/L 31-155 [facility] [employer] ALT enzyme act/vol 17.0 U/L 0-50 [facility] AST enzyme act/vol 21.0 U/L 0-40 [facility] [employer] Bilirubin mass conc 0.40 mg/dL 0.0-1.0 [facility] [employer] Protein mass conc 7.40 g/dL 6.3-7.9 [facility] [employer] Otheron 06-07-2016 Albumin/Globulin mass ratio 1.5 {ratio} 1.0-2.4 [facility] [employer] Erythrocyte distribution width Ratio (RBC) 11.80 % 11.5-15.5 [facility] [employer] MCHC mass conc (RBC) 33.50 g/dL 32.0-36.0 [facility] [employer] Platelet mean volume Entitic volume (Bld) 9.0 fL 7.4-10.4 [place] [employer] Negative [place] [facility] Otheron 04-23-2016 Negative [place] [facility] Otheron 03-19-2016 Negative [place] [facility] 02-12-2016 Cholesterol mass conc 175.0 mg/dL 0-200 [facility] [employer] Triglyceride mass conc 59.0 mg/dL 30-150 [place] [employer] Hematologyon 02-12-2016 Basophils #/vol (Bld) 0.10 10*3/uL 0.0-0.1 B [facility] [employer] Basophils/100 WBC (Bld) 0.90 % 0.0-1.0 [place] [employer] Eosinophils #/vol (Bld) 0.10 10*3/uL 0.0-0.5 [place] [employer] Eosinophils/100 WBC (Bld) 1.70 % 0.0-7.0 [place] [facility] Hematocrit Volume Fraction (Bld) 41.60 % 35.7-47.1 [facility] Hemoglobin mass conc (Bld) 14.0 g/dL 11.9-15.7 [facility] Lymphocytes #/vol (Bld) 2.30 10*3/uL 0.9-3.1 [facility] Lymphocytes/100 WBC (Bld) 36.10 % 28.0-42.0 [facility] MCH Entitic mass (RBC) 29.40 pg 23.2-33.3 [facility] MCV Entitic volume (RBC) 87.60 fL 82.0-98.4 [facility] Monocytes #/vol (Bld) 0.50 10*3/uL 0.3-1.0 B [facility] Monocytes/100 WBC (Bld) 7.20 % 4.0-12.0 [facility] Neutrophils #/vol (Bld) 3.30 10*3/uL 1.8-7.9 [facility] Neutrophils/100 WBC (Bld) 54.10 % 45.6-68.4 [facility] Platelets #/vol (Bld) 180.0 10*3/uL 150-400 [facility] RBC #/vol (Bld) 4.750 10*6/uL 3.72-5.24 [facility] WBC #/vol (Bld) 6.30 10*3/uL 3.9-10.3 [facility] Metabolic Panelon 02-12-2016 Albumin mass conc 4.50 g/dL 3.7-4.5 [facility] [employer] ALP enzyme act/vol 79.0 U/L 31-155 [facility] [employer] ALT enzyme act/vol 21.0 U/L 0-50 [facility] [employer] AST enzyme act/vol 22.0 U/L 0-40 [facility] [employer] Bilirubin mass conc 0.40 mg/dL 0.0-1.0 [facility] [employer] Protein mass conc 7.0 g/dL 6.3-7.9 [facility] [employer] Otheron 02-12-2016 Albumin/Globulin mass ratio 1.8 {ratio} 1.0-2.4 [place] [employer] Erythrocyte distribution width Ratio (RBC) 12.10 % 11.5-15.5 [place] MCHC mass conc (RBC) 33.60 g/dL 32.0-36.0 [facility] [place] Platelet mean volume Entitic volume (Bld) 9.70 fL 7.4-10.4 [place] Negative [place] [facility] Vital Signs Date Time Vital Sign Value Performing Clinician Facility 05-28-2024 13:28-0500 Body mass index (BMI) [Ratio] 22.58 kg/m2 Cheryl MARIE Work Phone[facility] 05-28-2024 13:28-0500 Body weight 54.2 kg Cheryl MARIE Work Phone: [facility] 05-28-2024 13:28-0500 Diastolic blood pressure 60 mm[Hg] Cheryl MARIE Work Phone: [facility] 05-28-2024 13:28-0500 Systolic blood pressure 102 mm[Hg] Cheryl MARIE Work Phone: [facility] 05-18-2024 10:28-050 Body height 154.94 cm [facility] 05-18-2024 10:28-0500 Body mass index (BMI) [Ratio] 21.8 kg/m2 [facility] 05-18-2024 10:28-0500 Body temperature 98 [degF] [facility] 05-18-2024 10:28-0500 Body weight 52.33 kg [facility] 05-18-2024 10:28-0500 Diastolic blood pressure 66 mm[Hg] [facility] 05-18-2024 10:28-0500 Heart rate 89 /min [facility] 05-18-2024 10:28-0500 SaO2% (BldA) [Mass fraction] 99 % [facility] 05-18-2024 10:28-0500 Systolic blood pressure 104 mm[Hg] [facility] 04-30-2024 10:13-0500 Body mass index (BMI) [Ratio] 21.73 kg/m2 Eleazar Vijaya DO Work Phone: [facility] 04-30-2024 10:13-050 Body weight 52.16 kg Eleazar Vijaya DO Work Phone: [facility] 04-30-2024 10:13-0500 Diastolic blood pressure 64 mm[Hg] Eleazar Vijaya DO Work Phone: [facility] 04-30-2024 10:13-0500 Systolic blood pressure 106 mm[Hg] Eleazar Vijaya DO Work Phone: [facility] 03-23-2024 10:10-0500 Body mass index (BMI) [Ratio] 20.86 kg/m2 [facility] 03-23-2024 10:10-0500 Body weight 50.08 kg [facility] 03-23-2024 10:10-0500 Diastolic blood pressure 60 mm[Hg] [facility] 03-23-2024 10:10-0500 Systolic blood pressure 110 mm[Hg] [facility] 03-14-2024 13:53-0500 Body mass index (BMI) [Ratio] 20.6 kg/m2 Eleazar Vijaya DO Work Phone: [facility] 03-14-2024 13:53-0500 Body weight 49.44 kg Eleazar Vijaya DO Work Phone: [facility] 03-14-2024 13:53-0500 Diastolic blood pressure 72 mm[Hg] Eleazar Vijaya DO Work Phone: [facility] 03-14-2024 13:53-0500 Systolic blood pressure 110 mm[Hg] Eleazar Vijaya DO Work Phone: [facility] 02-08-2024 13:21-0400 Body height 154.9 cm Eleazar Vijaya DO Work Phone: [facility] 02-08-2024 13:21-0400 Body mass index (BMI) [Ratio] 23.05 kg/m2 Eleazar Vijaya DO Work Phone: [facility] 02-08-2024 13:21-0400 Body weight 55.34 kg Eleazar Vijaya DO Work Phone: [facility] 02-08-2024 13:21-0400 Diastolic blood pressure 64 mm[Hg] Eleazar Vijaya DO Work Phone: [facility] 02-08-2024 13:21-0400 Systolic blood pressure 102 mm[Hg] Eleazar Vijaya DO Work Phone: [facility] 02-02-2024 12:39-0400 Body height 154.94 cm [facility] 02-02-2024 12:39-0400 Body mass index (BMI) [Ratio] 22.4 kg/m2 [facility] 02-02-2024 12:39-0400 Body temperature 98.3 [degF] [facility] 02-02-2024 12:39-0400 Body weight 54 kg [facility] 02-02-2024 12:39-0400 Diastolic blood pressure 64 mm[Hg] [facility] 02-02-2024 12:39-0400 Heart rate 82 /min [facility] 02-02-2024 12:39-0400 Respiratory rate 16 /min [facility] 02-02-2024 12:39-0400 SaO2% (BldA) [Mass fraction] 98 % [facility] 02-02-2024 12:39-0400 Systolic blood pressure 108 mm[Hg] [facility] 01-24-2024 11:38-0400 Body height 154.94 cm [facility] 01-24-2024 11:38-0400 Body mass index (BMI) [Ratio] 22.6 kg/m2 [facility] 01-24-2024 11:38-0400 Body temperature 96.1 [degF] [facility] 01-24-2024 11:38-0400 Body weight 54.43 kg [facility] 01-24-2024 11:38-0400 Diastolic blood pressure 60 mm[Hg] [facility] 01-24-2024 11:38-0400 Heart rate 75 /min [facility] 01-24-2024 11:38-0400 SaO2% (BldA) [Mass fraction] 98 % [facility] 01-24-2024 11:38-0400 Systolic blood pressure 114 mm[Hg] [facility] 01-03-2024 11:26-0400 Body height 154.94 cm [facility] 01-03-2024 11:26-0400 Body mass index (BMI) [Ratio] 23.2 kg/m2 [facility] 01-03-2024 11:26-0400 Body temperature 97.8 [degF] [facility] 01-03-2024 11:26-0400 Body weight 55.79 kg [facility] 01-03-2024 11:26-0400 Diastolic blood pressure 68 mm[Hg] [facility] 01-03-2024 11:26-0400 Heart rate 90 /min [facility] 01-03-2024 11:26-0400 SaO2% (BldA) [Mass fraction] 98 % [facility] 01-03-2024 11:26-0400 Systolic blood pressure 110 mm[Hg] [facility] 07-21-2023 10:20-0400 Body height 154.94 cm [facility] 07-21-2023 10:20-0400 Body mass index (BMI) [Ratio] 27.8 kg/m2 [facility] 07-21-2023 10:20-0400 Body weight 66.67 kg [facility] 07-21-2023 10:20-0400 Diastolic blood pressure 78 mm[Hg] [facility] 07-21-2023 10:20-0400 Heart rate 61 /min [facility] 07-21-2023 10:20-0400 SaO2% (BldA) [Mass fraction] 99 % [facility] 07-21-2023 10:20-0400 Systolic blood pressure 112 mm[Hg] [facility] 03-26-2023 11:30-0500 Body height 154.94 cm Jodie Bandar Other [facility] [employer] Other 03-26-2023 11:30-0500 Body mass index (BMI) [Ratio] 27.96 kg/m2 Jodie Portillo Other [facility] [employer] Other 03-26-2023 11:30-0500 Body temperature 98.8 [degF] Jodie Portillo Other [employer] Other 03-26-2023 11:30-0500 Body weight 67.13 kg Jodie Portillo Other [facility] [employer] [facility] Other 03-26-2023 11:30-0500 Diastolic blood pressure 76 mm[Hg] Jodie Portillo Other [employer] [facility] Other 03-26-2023 11:30-0500 Respiratory rate 18 /min Jodie Portillo Other [facility] [employer] [facility] Other 03-26-2023 11:30-0500 SaO2% (BldA) [Mass fraction] 98 % Jodie Portillo Other [facility] [employer] [facility] Other 03-26-2023 11:30-0500 Systolic blood pressure 118 mm[Hg] Jodie Portillo Other [facility] [employer] [facility] Other 10-02-2022 12:25-0400 Body height 154.94 cm Deidra Jimenez Other [employer] [facility] Other 10-02-2022 12:25-0400 Body mass index (BMI) [Ratio] 27.43 kg/m2 Deidra Castlemond Other [facility] [employer] [facility] Other 10-02-2022 12:25-0400 Body temperature 97.7 [degF] Deidra Jimenez Other [facility] [employer] [facility] Other 10-02-2022 12:25-0400 Body weight 65.86 kg Deidra Castlemond Other [employer] [facility] Other 10-02-2022 12:25-0400 Respiratory rate 18 /min Deidra Castlemond Other [facility] [employer] [facility] Other 10-02-2022 12:25-0400 SaO2% (BldA) [Mass fraction] 97 % Deidra Barbara Other [employer] [facility] Other 05-21-2019 10:42-0500 BMI (Body Mass Index) 23.41 kg/m2 Lyric Rene Cleghorn [employer] 05-21-2019 10:42-0500 Body Temperature 98.8 [degF] Lyric Clemente [employer] 05-21-2019 10:42-0500 Body weight 58.06 kg Lyric Rene [facility] 05-21-2019 10:42-0500 BP Diastolic 68 mm[Hg] Lyric Rene [place] 05-21-2019 10:42-0500 BP Systolic 94 mm[Hg] Lyric Rene [place] 05-21-2019 10:42-0500 BSA (Body Surface Area) 1.59 m2 Lyric [employer] 05-21-2019 10:42-0500 Height 157.48 cm Lyric FaustinncQosmos 05-21-2019 10:42-0500 Pulse (Heart Rate) 90 /min Lyric Vill[facility]real [facility] [employer] 05-11-2019 14:48-0500 BMI (Body Mass Index) 22.95 kg/m2 Hima Rene [place] 05-11-2019 14:48-0500 Body Temperature 98.8 [degF] [facility] [employer] 05-11-2019 14:48-0500 Body weight 56.93 kg Hima Faustinncjose elias Clemente [facility] [facility] 05-11-2019 14:48-0500 BP Diastolic 66 mm[Hg] Hima Faustinncjose elias Clemente [employer] 05-11-2019 14:48-0500 BP Systolic 110 mm[Hg] Hima Clemente [facility] 05-11-2019 14:48-0500 BSA (Body Surface Area) 1.58 m2 Hima Rene [place] 05-11-2019 14:48-0500 Height 157.48 cm Hima Silver Anju Clemente [employer] 05-11-2019 14:48-0500 Pulse (Heart Rate) 72 /min Hima Rene Nani anil [employer] 04-27-2019 15:18-0500 BMI (Body Mass Index) 23.52 kg/m2 Lyric Pérez [employer] 04-27-2019 15:18-0500 Body Temperature 98.9 [degF] Lyric Pérez [employer] 04-27-2019 15:18-0500 Body weight 56.47 kg Lyric Pérez [employer] [facility] 04-27-2019 15:18-0500 BP Diastolic 60 mm[Hg] Lyric Pérez [employer] 04-27-2019 15:18-0500 BP Systolic 112 mm[Hg] Lyric Pérez [employer] 04-27-2019 15:18-0500 BSA (Body Surface Area) 1.56 m2 Lyric [employer] 04-27-2019 15:18-0500 Height 154.94 cm Lyric Pérez [employer] 04-27-2019 15:18-0500 Pulse (Heart Rate) 80 /min Lyricchon Kimhard Cherelle [employer] 04-09-2019 13:38-0500 BMI (Body Mass Index) 22.77 kg/m2 Lyric [employer] 04-09-2019 13:38-0500 Body Temperature 99.4 [degF] Lyric [employer] 04-09-2019 13:38-0500 Body weight 54.66 kg Lyric [employer] 04-09-2019 13:38-0500 BP Diastolic 70 mm[Hg] Lyric Rene [facility] 04-09-2019 13:38-0500 BP Systolic 120 mm[Hg] Lyric Rene [facility] 04-09-2019 13:38-0500 BSA (Body Surface Area) 1.53 m2 Lyric [employer] 04-09-2019 13:38-0500 Height 154.94 cm Lyric [employer] 04-09-2019 13:38-0500 Pulse (Heart Rate) 82 /min Lyric rousey [employer] 02-06-2019 16:41-0400 BMI (Body Mass Index) 22.77 kg/m2 Lyric [employer] 02-06-2019 16:41-0400 Body Temperature 98.8 [degF] Lyric Clemente [employer] 02-06-2019 16:41-0400 Body weight 54.66 kg Lyric [employer] 02-06-2019 16:41-0400 BP Diastolic 70 mm[Hg] Lyric [employer] 02-06-2019 16:41-0400 BP Systolic 112 mm[Hg] Lyric [employer] 02-06-2019 16:41-0400 BSA (Body Surface Area) 1.53 m2 Lyric Pérez [employer] 02-06-2019 16:41-0400 Height 154.94 cm Lyric Pérez [employer] 02-06-2019 16:41-0400 Pulse (Heart Rate) 72 /min Lyric Kimjose elias kaplan [employer] 10-31-2018 16:58-0400 BMI (Body Mass Index) 23.43 kg/m2 Hima Rene [employer] 10-31-2018 16:58-0400 Body weight 56.25 kg Hima Clemente [employer] 10-31-2018 16:58-0400 BP Diastolic 60 mm[Hg] Hima Clemente [employer] 10-31-2018 16:58-0400 BP Systolic 112 mm[Hg] Hima Clemente [employer] 10-31-2018 16:58-0400 BSA (Body Surface Area) 1.56 m2 Hima Rene [facility] 10-31-2018 16:58-0400 Height 154.94 cm Hima Clemente [employer] 10-31-2018 16:58-0400 Pulse (Heart Rate) 72 /min Hima ma [employer] 10-31-2018 16:58-0400 Weight 56.25 kg Hima Clemente [employer] 08-28-2018 15:49-0400 BMI (Body Mass Index) 22.67 kg/m2 Hima Rene [facility] 08-28-2018 15:49-0400 Body Temperature 98.7 [degF] Hima Andrade [employer] 08-28-2018 15:49-0400 Body weight 54.43 kg Hima Clemente [employer] 08-28-2018 15:49-0400 BP Diastolic 60 mm[Hg] Hima Clemente [employer] 08-28-2018 15:49-0400 BP Systolic 120 mm[Hg] Hima Camacho [employer] 08-28-2018 15:49-0400 BSA (Body Surface Area) 1.53 m2 Hima Luna [employer] 08-28-2018 15:49-0400 Height 154.94 cm Hmia Camacho [employer] 08-28-2018 15:49-0400 Pulse (Heart Rate) 66 /min Hima ma [employer] 08-28-2018 15:49-0400 Weight 54.43 kg Hima Camacho [employer] 02-09-2018 12:10-0400 BMI (Body Mass Index) 23.78 kg/m2 Hima Luna [employer] 02-09-2018 12:10-0400 Body Temperature 98.1 [degF] Hima chawla [employer] 02-09-2018 12:10-0400 Body weight 58.97 kg Hima Camacho [employer] 02-09-2018 12:10-0400 BP Diastolic 80 mm[Hg] Hima Camacho [employer] 02-09-2018 12:10-0400 BP Systolic 104 mm[Hg] Hima Camacho [employer] 02-09-2018 12:10-0400 BSA (Body Surface Area) 1.61 m2 Hima Rene [facility] 02-09-2018 12:10-0400 Height 157.48 cm Hima Clemente [employer] 02-09-2018 12:10-0400 Pulse (Heart Rate) 64 /min Hima Cardoza [employer] 02-09-2018 12:10-0400 Weight 58.97 kg Hima Vill[employer] 01-11-2018 15:19-0400 BMI (Body Mass Index) 23.32 kg/m2 Hima Rene [employer] 01-11-2018 15:19-0400 Body weight 57.83 kg Hima Vill[employer] 01-11-2018 15:19-0400 BP Diastolic 68 mm[Hg] Hima Rene [employer] 01-11-2018 15:19-0400 BP Systolic 106 mm[Hg] Hima Rene [employer] 01-11-2018 15:19-0400 BSA (Body Surface Area) 1.59 m2 Hima Rene [facility] 01-11-2018 15:19-0400 Height 157.48 cm Hima Rene [employer] 01-11-2018 15:19-0400 Pulse (Heart Rate) 76 /min Hima Cardoza [employer] 01-11-2018 15:19-0400 Weight 57.83 kg Hima Clemente [employer] 08-01-2017 09:57-0400 BMI (Body Mass Index) 23.59 kg/m2 Hima Rene [facility] 08-01-2017 09:57-0400 Body weight 58.51 kg Hima Rene [employer] 08-01-2017 09:57-0400 BP Diastolic 60 mm[Hg] Hima Rene [employer] 08-01-2017 09:57-0400 BP Systolic 94 mm[Hg] Hima Vill[employer] 08-01-2017 09:57-0400 BSA (Body Surface Area) 1.6 m2 Hima Rene [facility] 08-01-2017 09:57-0400 Height 157.48 cm Hima Rene [employer] 08-01-2017 09:57-0400 Pulse (Heart Rate) 80 /min Hima Rene [employer] 08-01-2017 09:57-0400 Weight 58.51 kg Hima Rene [employer] 01-13-2017 12:02-0400 BMI (Body Mass Index) 22.59 kg/m2 Hima Rene [facility] 01-13-2017 12:02-0400 Body weight 56.02 kg Hima Rene [employer] 01-13-2017 12:02-0400 BP Diastolic 76 mm[Hg] Hima Vill[employer] 01-13-2017 12:02-0400 BP Systolic 122 mm[Hg] Hima Rene [employer] 01-13-2017 12:02-0400 BSA (Body Surface Area) 1.57 m2 Hima Rene [facility] 01-13-2017 12:02-0400 Height 157.48 cm Hima Rene [employer] 01-13-2017 12:02-0400 Pulse (Heart Rate) 72 /min Hima Rene [employer] 09-07-2017 12:02-0400 Weight 56.02 kg Hima Clemente [employer] 10-29-2016 16:57-0400 BMI (Body Mass Index) 22.13 kg/m2 Hima Rene [employer] 10-29-2016 16:57-0400 Body weight 54.89 kg Hima Clemente [employer] 10-29-2016 16:57-0400 BP Diastolic 60 mm[Hg] Hima Clemente [employer] 10-29-2016 16:57-0400 BP Systolic 104 mm[Hg] Hima Clemente [employer] 10-29-2016 16:57-0400 BSA (Body Surface Area) 1.55 m2 Hima Rene [facility] 10-29-2016 16:57-0400 Height 157.48 cm Hima Clemente [employer] 10-29-2016 16:57-0400 Pulse (Heart Rate) 68 /min Hima ma [employer] 10-29-2016 16:57-0400 Weight 54.89 kg Hima Clemente [employer] 01-28-2016 17:46-0400 BMI (Body Mass Index) 21.67 kg/m2 Hima Rene [place] 01-28-2016 17:46-0400 Body weight 53.75 kg Hima Clemente [employer] 01-28-2016 17:46-0400 BP Diastolic 64 mm[Hg] Hima Clemente [employer] 01-28-2016 17:46-0400 BP Systolic 94 mm[Hg] Hima Rene [employer] 01-28-2016 17:46-0400 BSA (Body Surface Area) 1.53 m2 Hima Rene [facility] 01-28-2016 17:46-0400 Height 157.48 cm Hima [employer] 01-28-2016 17:46-0400 Pulse (Heart Rate) 64 /min Hima Cadroza [employer] 01-28-2016 17:46-0400 Weight 53.75 kg Hima Rene [employer] 05-30-2015 16:50-0500 BMI (Body Mass Index) 21.22 kg/m2 Hima Rene [facility] 05-30-2015 16:50-0500 Body Temperature 98 [degF] Hima Andrade [employer] 05-30-2015 16:50-0500 Body weight 52.62 kg Hima Rene [employer] 05-30-2015 16:50-0500 BP Diastolic 64 mm[Hg] Hima Vill[employer] 05-30-2015 16:50-0500 BP Systolic 90 mm[Hg] Hima Rene [employer] 05-30-2015 16:50-0500 BSA (Body Surface Area) 1.52 m2 Hima Rene [facility] 05-30-2015 16:50-0500 Height 157.48 cm Hima Vill[employer] 05-30-2015 16:50-0500 Pulse (Heart Rate) 92 /min Hima Cardoza [employer] 01-22-2016 16:50-0500 Weight 52.62 kg Hima Camacho [employer] 04-08-2015 16:01-0500 BMI (Body Mass Index) 21.28 kg/m2 Hima Luna [employer] 04-08-2015 16:01-0500 Body Temperature 98.4 [degF] Hima chawla [employer] 04-08-2015 16:01-0500 Body weight 51.94 kg Hima Camacho [employer] 04-08-2015 16:01-0500 BP Diastolic 84 mm[Hg] Hima Camacho [employer] 04-08-2015 16:01-0500 BP Systolic 118 mm[Hg] Hima Camacho [employer] 04-08-2015 16:01-0500 BSA (Body Surface Area) 1.5 m2 Hima Luna [employer] 04-08-2015 16:01-0500 Height 156.21 cm Hima Camacho [employer] 04-08-2015 16:01-0500 Pulse (Heart Rate) 72 /min Hima ma [employer] 04-08-2015 16:01-0500 Weight 51.94 kg Hima Clemente [employer] Encounters Encounter Date Encounter Type Care Provider Facility Start: 05-28-2024 End: 05-28-2024 Bamboo flowsheet Cheryl MARIE Work Phone: [facility] Start: 05-28-2024 End: 05-28-2024 Bamboo flowsheet Cheryl MARIE Work Phone: [facility] Start: 05-28-2024 End: 05-28-2024 Patient encounter procedure Cheryl MARIE Work Phone: [facility] Start: 05-28-2024 End: 05-28-2024 Periodic preventive med est patient 18-39 yrs Cheryl MARIE Work Phone: [facility] Comment on above: Screening, , for anatomic survey; STD exposure; Vaginal discharge; Well woman exam with routine gynecological exam; Second trimester ; Nausea and vomiting in Start: 05-18-2024 End: 05-18-2024 ambulatory [facility] Work Phone: Start: 05-18-2024 End: 05-18-2024 Patient encounter procedure [facility] Work Phone: Start: 04-30-2024 End: 04-30-2024 Bamboo flowsheet Eleazar Vijaya DO Work Phone: [facility] Start: 04-30-2024 End: 04-30-2024 Bamboo flowsheet Eleazar Vijaya DO Work Phone: [facility] Start: 04-30-2024 End: 04-30-2024 Office outpatient visit 15 minutes Eleazar Vijaya DO Work Phone: [facility] Comment on above: 12 weeks gestation o f ; Second trimester Start: 04-30-2024 End: 04-30-2024 ambulatory ELEAZAR VIJAYA Not Available Start: 04-18-2024 End: 04-18-2024 ambulatory Susana Alonzo PA-C Facility:[facility] Start: 04-16-2024 End: 04-16-2024 Clinisync Result Encounter Eleazar Vijaya DO Work Phone: [facility] Unsolicited Start: 04-16-2024 End: 04-16-2024 Clinisync Result Encounter Eleazar Vijaya DO Work Phone: [facility] Unsolicited Start: 04-16-2024 Non-patient / [facility] Work Phone: Start: 04-13-2024 End: 04-13-2024 Clinisync Result Encounter Eleazar Vijaya DO Work Phone: [facility] Unsolicited Start: 04-13-2024 End: 04-13-2024 Clinisync Result Encounter Eleazar Vijaya DO Work Phone: [facility] Unsolicited Start: 03-23-2024 End: 03-23-2024 Office outpatient visit 5 minutes [facility] Vijaya Nurse [facility] Comment on above: GA: [id number] Start: 03-23-2024 End: 03-23-2024 ambulatory ELEAZAR VIJAYA Not Available Start: 03-19-2024 Non-patient / Non-visit [facility] Work Phone: Start: 03-17-2024 Non-patient / Non-visit [facility] Work Phone: Start: 03-14-2024 End: 03-14-2024 Bamboo flowsheet Eleazar [...] Phone: [facility] Unsolicited Start: 03-08-2024 Non-patient / Non-visit [facility] Work Phone: Start: 03-07-2024 End: 03-07-2024 ambulatory Ana Simmons APRN-[place]IN Facility: [facility] Start: 03-02-2024 Non-patient / Non-visit [facility] Work Phone: Start: 02-29-2024 Non-patient / Non-visit [facility] Work Phone: Start: 02-28-2024 Non-patient / Non-visit [facility] Work Phone: Start: 02-28-2024 End: 02-28-2024 Phys/qhp telephone evaluation 5-10 min Eleazar Vijaya DO Work Phone: [facility] Comment on above: Early stage of pregn ana Start: 02-27-2024 Non-patient / Non-visit [facility] Work Phone: Start: 02-21-2024 Non-patient / Non-visit [facility] Work Phone: Start: 02-08-2024 End: 02-08-2024 Bamboo flowsheet Eleazar [...] Available Start: 02-02-2024 End: 02-02-2024 [employer] NETWORK SUPPORT ADMINISTRATOR Jodie Portillo Work Phone: [facility] [place] Work Phone: Start: 02-02-2024 End: 02-02-2024 ambulatory Jodie Portillo [facility] Work Phone: Start: 02-02-2024 End: 02-02-2024 Patient encounter procedure [facility] Work Phone: Start: 01-24-2024 End: 01-24-2024 ambulatory [facility] Work Phone: Start: 01-24-2024 End: 01-24-2024 Patient encounter procedure [facility] Work Phone: Start: 01-24-2024 End: 01-24-2024 ambulatory Mike Jones Facility: [facility] Rod[facility] Start: 01-19-2024 Non-patient / Non-visit [facility] Work Phone: Start: 01-03-2024 End: 01-03-2024 ambulatory [facility] Work Phone: Start: 01-03-2024 End: 01-03-2024 Patient encounter procedure [facility] Work Phone: Start: 08-10-2023 End: 08-10-2023 ambulatory Ana Simmons NETWORK SUPPORT ADMINISTRATOR-SMALL BUSINESS CONSULTANT Facility:[facility] Start: 07-21-2023 End: 07-21-2023 ambulatory [facility] Work Phone: Start: 07-21-2023 End: 07-21-2023 Patient encounter procedure [facility] Work Phone: Start: 06-28-2023 ambulatory Amara Cheung PA-C Facility:[facility] Start: 06-27-2023 End: 06-27-2023 ambulatory Susana DE PAZC Facility:[facility] Start: 06-22-2023 End: 06-22-2023 ambulatory Ana Marysenichelle Simmons APRN-[place]USTIN Facility: [facility] Start: 03-26-2023 End: 03-26-2023 ambulatory Jodie Portillo Other [employer] Other Start: 03-26-2023 Office outpatient vi sit 15 minutes Jodie Portillo [facility] Start: 10-02-2022 End: 10-02-2022 ambulatory Deidra Castlemond Other [employer] Other Start: 10-02-2022 Office outpatient ne w 20 minutes Deidra Barbara [facility] Start: 05-21-2019 Office outpatient vi sit 15 minutes Lyric Pérez Other [facility] Office Start: 05-11-2019 [facility] [place] Other [facility] Office Start: 05-11-2019 Office outpatient vi sit 15 minutes Lyric Pérez Other [facility] Office Start: 04-27-2019 Office outpatient vi sit 15 minutes Lyric Pérez Other [facility] Office Start: 04-09-2019 Office outpatient vi sit 15 minutes Lyric Pérez Other [facility] Office Start: 02-06-2019 Office outpatient vi sit 15 minutes Lyric Pérez Other [facility] Office Start: 10-31-2018 Routine general medi brad examination at a health care facility [facility] [employer] Start: 10-31-2018 [facility] [place] Other [facility] Office Start: 10-31-2018 Office outpatient vi sit 15 minutes Cheryl Dobbins Other [facility] Office Start: 08-28-2018 [facility] [place] Other [facility] Office Start: 08-28-2018 Office outpatient vi sit 15 minutes Cheryl Dobbins Other [facility] Office Start: 04-20-2018 End: 04-20-2018 Emergency department patient visit [facility] Start: 03-08-2018 Lab Enrique Sanchezbenjaminkarma sy Other [facility] Office Start: 03-08-2018 Office outpatient vi sit 15 minutes Vinita José Luis Other [facility] Office Start: 02-09-2018 Office outpatient vi sit 15 minutes Lyric Pérez Other [facility] Office Start: 02-03-2018 End: 02-03-2018 Lab Enrique Sanchezbrough Other [facility] Office Start: 01-30-2018 Lab Enrique Sanchezsusy yossi Other [facility] [facility] Office Start: 01-30-2018 Office outpatient vi sit 15 minutes Vinita José Luis Other [facility] Office Start: 01-11-2018 Office outpatient vi sit 15 minutes Lyric Pérez Other [facility] Office Start: 12-28-2017 Office outpatient vi sit 15 minutes Ivnita José Luis Other [facility] Office Start: 12-28-2017 Lab Enrique Sanchezsusy yossi Other [facility] Office Start: 08-01-2017 Office outpatient vi sit 25 minutes Lyric Pérez Other [facility] Office Start: 07-28-2017 End: 07-28-2017 Emergency department patient visit [facility] Start: 01-13-2017 Office outpatient vi sit 15 minutes Rachel Ly Other [facility] Office Start: 10-29-2016 Office outpatient vi sit 15 minutes Rachel Ly Other [facility] Office Start: 06-07-2016 Office outpatient vi sit 15 minutes Enrique José Luis Other [facility] Office Start: 04-23-2016 Office outpatient vi sit 15 minutes Enrique José Luis Other [facility] Office Start: 03-19-2016 Office outpatient vi sit 15 minutes Enrique José Luis Other [facility] Office Start: 02-12-2016 Office outpatient ne w 20 minutes Enrique José Luis Other [facility] Office Start: 01-28-2016 Office outpatient vi sit 15 minutes Lyric Pérez Other [facility] Office Start: 05-30-2015 Office outpatient vi sit 15 minutes Lyric Pérez Other [facility] Office Start: 04-08-2015 Office outpatient ne w 20 minutes Lyric Pérez Other [facility] Office Procedures Date Procedure Procedure Detail Performing Clinician Start: 05-28-2024 Urnls dip stick/tabl et rgnt non-auto w/o micrscp Cheryl Baugh PA Work Phone: Start: 04-30-2024 Urnls dip stick/tabl et rgnt non-auto w/o micrscp Eleazar Vijaya DO Work Phone: Start: 04-16-2024 MLR HEMOGLOBIN A1C Core y Vijaya DO Work Phone: Start: 04-13-2024 BOX TEST Eleazar Fazi o DO Work Phone: Start: 03-23-2024 Urnls dip stick/tabl et rgnt non-auto w/o micrscp Eleazar Vijaya DO Work Phone: Start: 03-14-2024 Urnls dip stick/tabl et rgnt [...] w/ pt or re [facility] Start: 05-11-2019 EBV Complete Series Albertina Pérez Start: 04-27-2019 Doc meds verified w/ pt or re Lyric Pérez Start: 04-09-2019 Doc meds verified w/ pt or re Lyric Beto Start: 02-06-2019 Doc meds verified w/ pt or re Lyric Pérez Start: 10-31-2018 Doc meds verified w/ pt or re [facility] Start: 10-31-2018 Urnls dip stick/tabl et rgnt auto w/o microscopy [facility] Start: 08-28-2018 Ceftriaxone sodium injection [facility] Start: 08-28-2018 Doc meds verified w/ pt or re [facility] Start: 08-28-2018 Urnls dip stick/tabl et rgnt auto w/o microscopy [facility] Start: 04-20-2018 Radex spine lumbosac ral 2/3 views [facility] CARONE Start: 04-20-2018 Basic metabolic pane l calcium total [facility] CAR[facility] Start: 04-20-2018 Blood count complete automated [facility] Start: 04-20-2018 Microscopic urinalysis [facility] CAR[facility] Start: 04-20-2018 Urine test visual color cmprsn meths [facility] CAR[facility] Start: 04-20-2018 URINE RT REFLEX TO CULTURE [facility] CAR[facility] Start: 03-08-2018 Doc meds verified w/ pt or re [facility] Start: 03-08-2018 Urine test visual color cmprsn meths [facility] Start: 02-09-2018 Doc meds verified w/ pt or re [facility] Start: 02-03-2018 Urine test visual color cmprsn meths [facility] Start: 01-30-2018 Doc meds verified w/ pt or re [facility] Start: 01-30-2018 Urine test visual color cmprsn meths [facility] Start: 01-11-2018 Doc meds verified w/ pt or re [facility] Start: 12-28-2017 Doc meds verified w/ pt or re [facility] Start: 12-28-2017 Gonadotropin chorion ic qualitative [facility] Start: 12-28-2017 Hepatic function panel [facility] Start: 12-28-2017 Lipid panel [facility] Start: 07-28-2017 CBC [facility]AL[facility] CA EDE Start: 07-28-2017 Comprehensive metabo lic 2000 panel - Serum or Plasma [facility] CAR[facility] Start: 07-28-2017 , URINE HEATHE R CARONE Start: 07-28-2017 Urinalysis [facility] E[facility] Start: 01-13-2017 Doc meds verified w/ pt or re [facility] Start: 06-07-2016 Assay of triglycerides [facility] Start: 06-07-2016 Blood count complete auto&auto difrntl wbc [facility] Start: 06-07-2016 Cholesterol serum/wh ole blood total [facility] Start: 06-07-2016 Gonadotropin chorion ic qualitative [facility] Start: 06-07-2016 Hepatic function panel [facility] Start: 04-23-2016 Urine test visual color cmprsn meths [facility] Start: 03-19-2016 Urine test visual color cmprsn meths [facility] Start: 02-12-2016 Assay of triglycerides [facility] Start: 02-12-2016 Blood count complete auto&auto difrntl wbc [facility] Start: 02-12-2016 Cholesterol serum/wh ole blood total [facility] Start: 02-12-2016 Gonadotropin chorion ic qualitative [facility] Start: 02-12-2016 Hepatic function panel [facility] Plan of Treatment Date Care Activity Detail Author Start: 05-28-2024 End: 11-25-2024 Alpha fetoprotein, maternal Alpha fetoprotein, maternal Lab Routine Second trimester Expected: 05/28/2024 (Approximate), Expires: 11/25/2024 [facility] Comment on above: Expected: 05/28/2024 (Approximate), Expires: 11/25/2024 Start: 05-28-2024 End: 05-28-2025 US for US OB 14+ weeks anatomy scan Imaging Routine Screening, , for anatomic survey Expected: 05/28/2024, Expires: 05/28/2025 [facility] Work Phone: Comment on above: Expected: 05/28/2024 , Expires: 05/28/2025 Start: 05-28-2024 End: 05-28-2024 Patient encounter procedure 05/28/2024 1:10 PM EST Routine [facility] [address] [place] [id number] Cheryl Baugh PA [address] [place], [place] [id number] Arrived [facility] Comment on above: Arrived Start: 04-30-2024 End: 04-30-2024 Patient encounter procedure 04/30/2024 10:10 AM EST Routine [facility] [address] [place] [phone] Eleazar Lilly, [address] [place], [place] [id number] 12 weeks gestation of ; Second trimester [facility] Comment on above: 12 weeks gestation o f ; Second trimester Start: 04-23-2024 End: 04-23-2024 Patient encounter procedure 04/23/2024 10:50 AM EST Routine [facility] [address] [place] [phone] Eleazar Lilly, DO [address] [place] [address] [facility] Start: 03-23-2024 End: 03-23-2025 ABO/Rh ABO/Rh Lab Routine Missed menses , unspecified gestational age Expected: 03/23/2024 (Approximate), Expires: 03/23/2025 [facility] Comment on above: Expected: 03/23/2024 (Approximate), Expires: 03/23/2025 Start: 03-23-2024 End: 03-23-2025 Blood type and Indirect antibody screen panel - Blood Type and screen Lab Routine Missed menses , unspecified gestational age Expected: 03/23/2024 (Approximate), Expires: 03/23/2025 [facility] Work Phone: Comment on above: Expected: 03/23/2024 (Approximate), Expires: 03/23/2025 Start: 03-23-2024 End: 03-23-2025 Drugs of abuse panel - Urine by Screen method Rapid drug screen, urine Lab Routine , unspecified gestational age Encounter for supervision of normal first in first trimester Expected: 03/23/2024 (Approximate), Expires: 03/23/2025 [facility] Comment on above: Expected: 03/23/2024 (Approximate), Expires: 03/23/2025 Start: 03-23-2024 End: 03-23-2024 ambulatory 03/23/2024 10:00 AM EST Initial [facility] [address] [place] [phone] [facility] Start: 03-23-2024 End: 03-23-2024 Professional / ancillary services management 03/23/2024 9:30 AM EST Ancillary Procedure [facility] [address] [place] [phone] [facility] Start: 03-14-2024 End: 03-14-2024 Patient encounter procedure 03/14/2024 1:30 PM EST Office Visit [facility] [address] [place] [phone] Eleazar Lilly, DO [address] [place] [address] Arrived [facility] Comment on above: Arrived Start: 02-28-2024 End: 02-28-2024 Patient encounter procedure 02/28/2024 8:10 AM EDT Office Visit [facility] [address] [place] [phone] Eleazar Lilly, DO [address] [place] [address] [facility] Start: 02-08-2024 End: 02-07-2025 SURESWAB(R) ADVANCED VAGINITIS PLUS, TMA SURESWAB(R) ADVANCED VAGINITIS PLUS, TMA Pathology and Cytology Routine Pelvic pain in female Expected: 02/08/2024 (Approximate), Expires: 02/07/2025 [facility] Work Phone: Comment on above: Expected: 02/08/2024 (Approximate), Expires: 02/07/2025 Start: 02-08-2024 End: 02-07-2025 US for US PELVIS-TRANSVAG IF INDICATED Imaging Routine Pelvic pain in female Expected: 02/08/2024 (Approximate), Expires: 02/07/2025 [facility] Comment on above: Expected: 02/08/2024 (Approximate), Expires: 02/07/2025 Start: 02-08-2024 End: 02-08-2024 Patient encounter procedure 02/08/2024 1:20 PM EDT Office Visit [facility] [address] [place] [place] [address] Eleazar Lilly DO [address] [place] [address] Arrived [facility] Comment on above: Arrived Start: 02-02-[address] [facility] Start: 01-08-2024 Influenza vaccination Influenza Vacc ine (#1) [facility] Start: 05-11-2019 Blood count complete auto&auto difrntl wbc CBC w diff [facility] Start: 05-11-2019 TSH Qn TSH [facility] Start: 11-02-2018 Blood count complete automated CBC & PLATELET COUNT; AUTOMATED [facility] Start: 11-02-2018 Comprehensive metabo lic panel Comprehensive metabolic panel [facility] Start: 11-02-2018 Gonadotropin chorion ic qualitative [facility] Start: 11-02-2018 Hemoglobin A1c/Hemoglobin.total mass fraction (Bld) Hgb A1c [facility] Start: 11-02-2018 Lipid panel Lipid panel [facility] Start: 11-02-2018 Thyrotropin Qn TSH (thyroid stimulating hormone) [facility] Start: 11-02-2018 Urnls dip stick/tabl et rgnt auto w/o microscopy UA [facility] Atopobium vaginae DN A [Presence] in Vaginal fluid by ELDON with probe detection [facility] Bacteria identified in Urine by Culture Urine culture Microbiology Routine Missed menses Ordered: 03/23/2024 [facility] Comment on above: Ordered: 03/23/2024 Bacterial vaginosis associated bacterium 2 DNA [Presence] in Vaginal fluid by ELDON with probe detection [facility] CBC W Auto Different ial panel - Blood CBC and differential Lab Routine Missed menses , unspecified gestational age Ordered: 03/23/2024 [facility] Comment on above: Ordered: 03/23/2024 CHLAMYDIA TRACHOMATI S (GENITO/STI) CHLAMYDIA TRACHOMATIS (GENITO/STI) Lab Routine Pelvic pain in female Ordered: 02/08/2024 [facility] Comment on above: Ordered: 02/08/2024 CHLAMYDIA TRACHOMATI S (GENITO/STI) CHLAMYDIA TRACHOMATIS (GENITO/STI) Lab Routine STD exposure Ordered: 05/28/2024 [facility] Comment on above: Ordered: 05/28/2024 Cytology Cervical or vaginal smear or scraping study Pap Smear Pathology and Cytology Routine Well woman exam with routine gynecological exam Ordered: 05/28/2024 [facility] Comment on above: Ordered: 05/28/2024 Estradiol (E2) [Mass/volume] in Serum or Plasma [facility] Estrogen [Mass/volum e] in Serum or Plasma [facility] Hemoglobin A1c/Hemoglobin.total in Blood Hemoglobin A1c Lab Routine Missed menses , unspecified gestational age Ordered: 03/23/2024 [facility] Comment on above: Ordered: 03/23/2024 Hepatitis B virus surface Ag [Presence] in Serum or Plasma by Immunoassay Hepatitis B surface antigen Lab Routine Missed menses , unspecified gestational age Ordered: 03/23/2024 [facility] Comment on above: Ordered: 03/23/2024 Hepatitis C virus Ab [Presence] in Serum or Plasma by Immunoassay Hepatitis C antibody Lab Routine Missed menses , unspecified gestational age Ordered: 03/23/2024 [facility] Comment on above: Ordered: 03/23/2024 HIV-1/HIV-2 antigen/antibody combination immunoassay HIV-1 and HIV-2 antibodies Lab Routine Missed menses , unspecified gestational age Ordered: 03/23/2024 [facility] Comment on above: Ordered: 03/23/2024 Holter monitor study [facility] Lutropin [Units/volu me] in Serum or Plasma [facility] Megasphaera sp type 1 DNA [Presence] in Vaginal fluid by ELDON with probe detection [facility] Neisseria gonorrhoea e DNA [Presence] in Unspecified specimen by ELDON with probe detection Neisseria gonorrhea DNA probe, direct Lab Routine Pelvic pain in female Ordered: 02/08/2024 [facility] Comment on above: Ordered: 02/08/2024 Neisseria gonorrhoea e DNA [Presence] in Unspecified specimen by ELDON with probe detection Neisseria gonorrhea DNA probe, direct Lab Routine STD exposure Ordered: 05/28/2024 [facility] Comment on above: Ordered: 05/28/2024 Progesterone [Mass/volume] in Serum or Plasma [facility] Reagin Ab [Presence] in Serum by RPR RPR Lab Routine Missed menses , unspecified gestational age Ordered: 03/23/2024 [facility] Comment on above: Ordered: 03/23/2024 Rubella antibody, IgG Rubella an tibody, IgG Lab Routine Missed menses , unspecified gestational age Ordered: 03/23/2024 [facility] Comment on above: Ordered: 03/23/2024 SURESWAB(R) ADVANCED VAGINITIS PLUS, TMA SURESWAB(R) ADVANCED VAGINITIS PLUS, TMA Pathology and Cytology Routine Vaginal discharge Ordered: 05/28/2024 [facility] Comment on above: Ordered: 05/28/2024 XR Cervical spine [address] [facility] XR Thoracic and lumb ar spine Views for scoliosis [facility] Payers Date Payer Category Payer Self-pay 2022 Medicaid [id number] 2022 Medicaid [id number] 2. [id number] 2022 Unknown 2015 Unknown [id number] [id number] 2014 Unknown [id number] 1996 Unknown [id number] 2.16.8 [id number] 1996 Unknown [id number] 2.16.8 [id number] 1996 Unknown [id number] 2.16.84 [id number] 1996 Unknown [id number] 2.16.84 0.1.970581.3.579.2.9 1996 Unknown [id number] 2.16.84 [id number] 1996 Unknown [id number] 2.16.84 0.1.879755.3.579.2.9 1996 Unknown [id number] 2.16. [id number] 1996 Unknown [id number] 2.16. 840.1.321036.3.579.2.196 1996 Unknown [id number] 2.16. [id number] 1996 Unknown [id number] 2.16. [id number] 1996 Unknown [id number] 2.16. [id number] 1996 Unknown [id number] 2.16. [id number] 1996 Unknown [id number] 2.16. [id number] Unknown [id number] 2.16.8 [id number] Social History Date Type Detail Facility Start: Unknown if ever smoked [facility] Start: 1 can pop/day [facility] Sex Assigned At [facility] Other Start: 07-21-2023 End: 02-02-2024 Tobacco smoking status [facility] Never smoked tobacco (finding) [facility] Start: 1995 Sex Assigned At Female F [facility] Tobacco smoking status [facility] Tobacco smoking consumption unknown [facility] Start: 1995 Sex assigned at Not on file [facility] Start: 02-17-2024 [facility] Start: 05-18-2024 Sex Female (finding) [facility] Clinical Notes 10-02-2022 to 05-28-2024 CYNTHIA Del Cid - 05/28/2024 1:10 PM Zaina Cormier MA - 04/30/2024 10:10 AM Sami Gongora MANAGER OF CASE - 03/23/2024 10:00 AM Cleo Xavier, MANAGER OF CASE - 03/14/2024 1:30 PM EST Note Date & Type Note Facility 05-28-2024 History of Present illness Narrative Reason for Appointment: Patient ID: Cristiane Dunbar is a 28 y.o. female who presents for No chief complaint on file. Patient presents today for Return OB appointment. MEDICATIONS Current Outpatient Medications Medication Instructions metoclopramide (REGLAN) 10 mg, Oral, 3 times daily before meals, Take 1 tablet by mouth 30 minutes prior to meals 3 times daily as needed for nausea. ondansetron ODT (ZOFRAN-ODT) 4 mg, Oral, Every 6 hours PRN ALLERGIES No Known Allergies PROBLEMS Active Ambulatory Problems Diagnosis Date Noted Nausea and vomiting in 04/16/2024 12 weeks gestation of 04/30/2024 Second trimester 04/30/2024 Resolved Ambulatory Problems Diagnosis Date Noted No [...] Onset Lung cancer Maternal Grandmother SURGICAL HISTORY No past surgical history on file. REVIEW OF SYSTEMS Review of Systems: Review of Systems Constitutional: Negative. HENT: Negative. Eyes: Negative. Respiratory: Negative. Cardiovascular: Negative. Gastrointestinal: Negative. Genitourinary: Negative. Musculoskeletal: Negative. Skin: Negative. Neurological: Negative. All other systems reviewed and are negative. Hematological: Negative. Endocrine: Negative. Allergic/Immunologic: Negative. OBJECTIVE Objective: Physical Exam Constitutional: Appearance: Normal appearance. She is well-developed. Genitourinary: Right Adnexa: not tender and no mass present. Left Adnexa: not tender and no mass present. No cervical discharge. Breasts: Breasts are soft. Right: Normal. Left: Normal. HENT: Head: Normocephalic. Nose: Nose normal. Mouth/Throat: Mouth: Mucous membranes are moist. Cardiovascular: Rate and Rhythm: Normal rate and regular rhythm. Pulmonary: Effort: Pulmonary effort is normal. Breath sounds: Normal breath sounds. Abdominal: General: Bowel sounds are normal. There is no distension. Palpations: Abdomen is soft. Tenderness: There is no abdominal tenderness. There is no guarding or rebound. Musculoskeletal: General: No swelling. Normal range of motion. Cervical back: Normal range of motion. Right lower leg: No edema. Left lower leg: No edema. Neurological: General: No focal deficit present. Mental Status: She is alert and oriented to person, place, and time. Skin: General: Skin is warm and dry. Psychiatric: Mood and Affect: Mood normal. Behavior: Behavior normal. Vitals and nursing note reviewed. Exam conducted with a supplier quality present. Vitals: Estimated body mass index is 22.58 kg/m as calculated from the following: Height as of 02/08/24: 5' 1 . Weight as of this encounter: 119 lb 8 oz. BP: 102/60 Patient's last menstrual period was 01/23/2024. ASSESSMENT & PLAN ICD-10-CM 1. Screening, , for anatomic survey Z36.89 US OB 14+ weeks anatomy scan 2. STD exposure Z20.2 CHLAMYDIA TRACHOMATIS (GENITO/STI) Neisseria gonorrhea DNA probe, direct 3. Vaginal discharge N89.8 SURESWAB(R) ADVANCED VAGINITIS PLUS, TMA 4. Well woman exam with routine gynecological exam Z01.419 Pap Smear 5. Second trimester Z34.92 POCT urinalysis dipstick manually resulted Alpha fetoprotein, maternal Alpha fetoprotein, maternal Return OB/Annual Exam: Patient presents today for an annual exam/routine obstetrics appointment. Patient is currently 16w3d . Patient is doing well and states she has no complaints. Pap/cultures was obtained without difficulty and patient was given [facility] order to have obtained. Orders Placed This Encounter Procedures US OB 14+ weeks anatomy scan Alpha fetoprotein, maternal CHLAMYDIA TRACHOMATIS (GENITO/STI) Neisseria gonorrhea DNA probe, direct POCT urinalysis dipstick manually resulted Follow Up: Patient is to return to our office in 4 weeks for routine OB appointment Documented by Nimco Mojica LPN on behalf of: CYNTHIA Del Cid documented in this encounter [facility] 04-30-2024 History of Present illness Narrative Reason for Appointment: Patient ID: Cristiane Dunbar is a 28 y.o. female who presents for Routine Visit Patient presents today for Return OB appointment. MEDICATIONS Current Outpatient Medications Medication Instructions metoclopramide (REGLAN) 10 mg, Oral, 3 times daily before meals, Take 1 tablet by mouth 30 minutes prior to meals 3 times daily as needed for nausea. ondansetron ODT (ZOFRAN-ODT) 4 mg, Oral, Every 6 hours PRN ALLERGIES No Known Allergies PROBLEMS Active Ambulatory Problems Diagnosis Date Noted Nausea and vomiting in 04/16/2024 12 weeks gestation of 04/30/2024 Second trimester 04/30/2024 Resolved Ambulatory Problems Diagnosis Date Noted No [...] Onset Lung cancer Maternal Grandmother SURGICAL HISTORY No past surgical history on file. REVIEW OF SYSTEMS Review of Systems: Review of Systems OBJECTIVE Objective: OBGyn Exam Vitals: Estimated body mass index is 20.86 kg/m as calculated from the following: Height as of 02/08/24: 5' 1 . Weight as of 03/23/24: 110 lb 6.4 oz. BP: Patient's last menstrual period was 01/23/2024. ASSESSMENT & PLAN ICD-10-CM 1. 12 weeks gestation of Z3A.12 POCT urinalysis dipstick manually resulted 2. Second trimester Z34.92 POCT urinalysis dipstick manually resulted Return OB: Patient presents today for a routine obstetrics appointment. Patient is currently 12w3d . Patient states she is doing well but has complaints of being tired due to current . Patient has verbalizes frequent movement. labor precautions was discussed/given and patient was instructed to perform kick counts three times a day. Orders Placed This Encounter Procedures POCT urinalysis dipstick manually resulted Follow Up: Patient is to return to office in 2 week for routine OB appointment. Documented by Nga Cormier MA on behalf of: Eleazar Lilly DO documented in this encounter [facility] 03-23-2024 History of Present illness Narrative Reason for Appointment: Patient ID: Cristiane Dunbar is a 28 y.o. female who presents for No chief complaint on file. Patient presents today for a Nurse OB Intake appointment. Patient is 7w0d with a Estimated Date of Delivery: 11/09/24 OB History Para Term AB Living 1 SAB IAB Ectopic Multiple Live Births # Outcome Date GA Lbr Jose/2nd Weight Sex Type Anes PTL Lv 1 Current Current Medications: has a current medication list which includes the following prescription(s): metoclopramide and ondansetron odt. Medical History: Active Ambulatory Problems Diagnosis Date [...] on file Drug use: Not on file History reviewed. No pertinent surgical history. No Known Allergies Vitals: Estimated body mass index is 20.86 kg/m as calculated from the following: Height as of 02/08/24: 5' 1 . Weight as of this encounter: 110 lb 6.4 oz. BP: 110/60 Patient's last menstrual period was 01/23/2024. Assessment/Plan Diagnoses and all orders for this visit: Missed menses - Type and screen; Future - ABO/Rh; Future - CBC and differential - Hemoglobin A1c - RPR - Rubella antibody, IgG - Hepatitis B surface antigen - Hepatitis C antibody - HIV-1 and HIV-2 antibodies - Urine culture - POCT , urine manually resulted - POCT urinalysis dipstick manually resulted , unspecified gestational age - Type and screen; Future - ABO/Rh; Future - CBC and differential - Hemoglobin A1c - RPR - Rubella antibody, IgG - Hepatitis B surface antigen - Hepatitis C antibody - HIV-1 and HIV-2 antibodies - Rapid drug screen, urine; Future Encounter for supervision of normal first in first trimester - Rapid drug screen, urine; Future Nausea and vomiting in - ondansetron ODT (Zofran-ODT) 4 MG disintegrating tablet; Take 1 tablet (4 mg) by mouth every 6 (six) hours if needed for nausea or vomiting Nurse Note: OB Intake: Patient presents today for first OB visit. Patients history has been reviewed in great detail including any potential risks. Patient signed consent forms and patient desires testing in both trimesters. Patient currently has no complaints and has been advised to drink 6-8 glasses of water a day, eat no raw or undercooked meat, and stay away from [facility]. Patient has also been advised to not change litter boxes and eat 6 small meals a day. Patient has been consulted regarding the do's and don'ts of . Patient was given labs and all questions and concerns were answered. Scripts for meds sent at this time. Patient would like to hold off on Zofran pump until coming back and seeing provider. Follow Up: Patient is to return in 4 weeks for routine OB appointment. Follow Up: Patient is to have labs drawn at directed and return to office for initial OB appointment with provider. Patient may call office as needed with any concerns or questions. Nurse Visit Completed by: Alana [place] LPN documented in this encounter [facility] 03-14-[facility]24 History of Present illness Narrative Reason [...] nursing note reviewed. Exam conducted with a supplier quality present. Vitals: Estimated body mass index is 20.6 kg/m as calculated from the following: Height as of 02/08/24: 5' 1 . Weight as of this [...] Eleazar Lilly DO documented in this encounter [facility] 03-02-2024 Note Patient Education Ma terials Name: Cristiane Dunbar Current Date: 03/02/2024 06:56:41 [facility] : 1995 The following sheet(s) are the [...] breast self-exam (BSE). These experts include the [employer] and the [employer]nec[employer]. Some experts [...] This means they are not cancer. ? [id number] [employer]. All rights reserved. This information is not intended as a substitute for professional medical care. Always follow your healthcare professional's instructions. [facility] 02-28-2024 History of Present illness Narrative Reason for Appointment: Patient ID: Cristiane Dunbar is a 28 y.o. female who presents for Telehealth (Pt had ultrasound and positive HCG) Patient presents today via telephone call for a telehealth appointment. Patients Phone #: [phone] (mobile) Current Medications: has a current medication [...] Eleazar Lilly DO documented in this encounter [facility] 02-08-2024 History of Present illness Narrative [...] nursing note reviewed. Exam conducted with a supplier quality present. Vitals: Estimated body mass index is [...] Eleazar Lilly DO documented in this encounter [facility] 03-26-2023 Evaluation note Encounter Date Diagnosis [...] verbalized understanding and agrees with treatment plan [facility] Other 05-27-2023 Evaluation note* Encounter Date Diagnosis [...] no improvement in 2 to 3 days [facility] Other Evaluation note* Diagnosis Onset Date Resolution Status Acquired scoliosis acute Daily headache acute Fatigue acute Hot flashes acute Irregular menstrual cycle ac hans Neck pain acute [facility] Work Phone: Evaluation note* Diagnosis Onset Date Resolution Status Dizziness acute Heart palpitations acute [facility] Work Phone: Evaluation note* Diagnosis Onset Date Resolution Status Dizziness acute Heart palpitations acute Anxiety acute Depression [facility] Work Phone: Evaluation note* Diagnosis Onset Date Resolution Status Dizziness acute Heart palpitations acute Anxiety acute Depression acute Vaginal discharge noneactive Acute effusion of both middle ears noneactive [facility] Work Phone: Evaluation note* Diagnosis Pelvic pain in female Unspecified symptom associated with female genital organs [facility] Diagnosis Early stage of state, incidental [facility] Diagnosis Losing weight Loss of weight Missed menses [facility] Diagnosis Missed menses , unspecified gestational age Encounter for supervision of normal first in first trimester Nausea and vomiting in Unspecified vomiting of , unspecified as to episode of care Urinary tract infection without hematuria, site unspecified [facility] Diagnosis 12 weeks gestation of Second trimester state, incidental [facility]* Diagnosis Onset Date Resolution Status Admit Date Eustachian tube dysfunction acute May 18, 2024 10:24am [facility] Work Phone: Evaluation note* Diagnosis Screening, , for anatomic survey Encounter for anatomic survey STD exposure Vaginal discharge Leukorrhea, not specified as infective Well woman exam with routine gynecological exam Routine gynecological examination Second trimester state, incidental Nausea and vomiting in Unspecified vomiting of , unspecified as to episode of care documented in this encounter [facility] Summary Purpose Family History Relationship Condition Age at Onset Recorded Date/T kacey father Hypertension Unknown Advance Directives Advance Directive Response Recorded Date/ Time Advance Directives No July 20, 024 8:38am Advance Directive Response Recorded Date/ Time Advance Directives No January 12:05pm Advance Directive Response Recorded Date/ Time Advance Directives No January 6:28pm Chief Complaint and Reason for Visit Chief [...] discharge Acute effusion of both middle ears Chief Complaint Admit Date Amb Documentation February 28, 2024 9 :16am Amb Documentation March 19, 2024 3:35pm ear ache, both ears May 18, 2024 1 0:24am Reason for Visit Admit Date Eustachian tube dysfunction May 10:24am Additional Source Comments INFORMATION SOURCE (unrecogn ized section and content) DATE CREATED AUTHOR 04/25/2018 [facility] [facility] DATE CREATED AUTHOR AUTHOR'S ORGANIZ ATION 12/02/2019 [facility] DATE CREATED AUTHOR AUTHOR'S ORGANIZ ATION 02/06/2024 [facility] DATE CREATED AUTHOR AUTHOR'S ORGANIZ ATION 05/02/2024 [facility] EP[facility] DATE CREATED AUTHOR AUTHOR'S ORGANIZ ATION 05/26/2024 [facility] REASON FOR VISIT (unrecogniz ed section and content) Reason Comments Pelvic Pain Reason Comments Telehealth Pt had ultrasound an d positive HCG Reason Comments Weight Loss Pt currently pregnan t. Pt has not been able to keep anything down. Pt states she has lost a total of 12 pds since she found out she is . Reason Comments Routine Visit Care Teams (unrecognized sec tion and content) Team Status: Active Member Role Status Dates Evelyn Vu APRN SLAT BASKET MAKER HELPER MACHINE-C Primary Care Provider Active Team Status: Inactive Member Role Status Dates Evelyn Vu APRN SLAT BASKET MAKER HELPER MACHINE-C Primary Care Provider, Attending Provider Active Start: July 21, 2023 End: July 21, 2023 Team Status: Inactive Member Role Status Dates Evelyn Vu APRN SLAT BASKET MAKER HELPER MACHINE-C Primary Care Provider, Attending Provider Active Start: January 03, 2024 End: January 03, 2024 Team Status: Active Member Role Status Dates Evelyn Vu APRN SLAT BASKET MAKER HELPER MACHINE-C Primary Care Provider Active Start: January 072023 Ty Aguilar DO Attending Provider Active S tart: January 19, 2024 Team Status: Inactive Member Role Status Dates Evelyn Vu APRN SLAT BASKET MAKER HELPER MACHINE-C Primary Care Provider, Attending Provider Active Start: January 24, 2024 End: January 24, 2024 Team Status: Inactive Member Role Status Dates Evelyn Vu APRN SLAT BASKET MAKER HELPER MACHINE-C Primary Care Provider Active Start: January 082023 End: February 02, 2024 Jodie Portillo APRN Attending Provider Active Start: February 02, 2024 End: February 02, 2024 Team Status: Inactive Member Role Status Dates Jodie Portillo APRN Attending Provider Active Start: February 02, 2024 End: February 02, 2024 Cork Tipper Relationship Specialty Start Date End Date Corwin Dee DO [address] [place] [address] PCP - General Family Medicine 09/14/22 Cork Tipper Relationship Specialty Start Date End Date Corwin Dee DO [address] [place] [address] PCP - General Family Medicine 09/14/22 Cork Tipper Relationship Specialty Start Date End Date Corwin Dee, [address] [place] [address] PCP - General Family Medicine 09/14/22 Cork Tipper Relationship Specialty Start Date End Date Corwin Dee DO [address] [place] [address] PCP - General Family Medicine 09/14/22 Cork Tipper Relationship Specialty Start Date End Date Unallocated, Berto Bermudez MD [facility] [place] [address] PCP - General Family Medicine 02/28/24 Cork Tipper Relationship Specialty Start Date End Date Unallocated, Berto Bermudez MD [address] [place] [address] [place] [address] PCP - General Family Medicine 02/28/24 Cork Tipper Relationship Specialty Start Date End Date Unallocated, Berto Bermudez MD [address] [facility] [place] [address] PCP - General Family Medicine 02/28/24 Cork Tipper Relationship Specialty Start Date End Date Unallocated, Berto Bermudez MD [facility] [facility] [place] [address] PCP - General Family Medicine 02/28/24 Cork Tipper Relationship Specialty Start Date End Date Unallocated, Berto Bermudez MD [facility] [address] [facility] [place] [address] PCP - General Family Medicine 02/28/24 Cork Tipper Relationship Specialty Start Date End Date Unallocated, [facility] [place] [address] PCP - General Family Medicine 02/28/24 Cork Tipper Relationship Specialty Start Date End Date Unallocated, Berto Bermudez MD [facility] [address] [facility] [place] [address] PCP - General Family Medicine 02/28/24 Team Status: Active Member Role Status Dates Eleazar Lilly DO Attending Provider Active Start : February 21, 2024 Team Status: Active Member Role Status Dates Ty Arenas DO Attending Provider Active Start : February 27, 2024 Team Status: Active Member Role Status Dates Xuan Drake CMA Attending Provider Active Start: February 28, 2024 Team Status: Active Member Role Status Dates Ty Aguilar DO Attending Provider Active S tart: February 29, 2024 Team Status: Active Member Role Status Dates Ty Aguilar DO Attending Provider Active S tart: March 02, 2024 Team Status: Active Member Role Status Dates Eleazar Lilly DO Attending Provider Active Start : March 08, 2024 Team Status: Active Member Role Status Dates Cara Bruner PA-C Attending Provider Active Start: March 17, 2024 Team Status: Active Member Role Status Dates Xuan Drake CMA Attending Provider Active Start: March 19, 2024 Team Status: Active Member Role Status Dates Eleazar Lilly DO Attending Provider Active Start : April 16, 2024 Team Status: Inactive Member Role Status Dates Evelyn Vu APRN SLAT BASKET MAKER HELPER MACHINE-C Primary Care Provider, Attending Provider Active Start: May 18, 2024 End: May 18, 2024 Cork Tipper Relationship Specialty Start Date End Date Unallocated, Berto Bermudez MD [facility] [place] [address] PCP - General Family Medicine 02/28/24 Cork Tipper Relationship Specialty Start Date End Date Unallocated, Berto Bermudez MD [address] [place] [address] PCP - General Family Medicine 02/28/24 Goals [...] BE BASED ON THE PRIMARY CLINICAL RECORDS. [employer] provides no warranty or guarantee of the accuracy or completeness of information in this document.
== END 2024-05-28 21:52 | disposition home or self-care (01) ==
LOC: LAB 21:51
PROVIDERS: PCP Nurse Practitioner Family; Visit Provider Physician Assistant
DX: Z01.419 Encounter for gynecological examination (general) (routine) without abnormal findings (principal)
CPT/HCPCS: 88175

== ENCOUNTER 2024-06-22 17:08 | Outpatient (OUT) | payer MEDICAID, SELFPAY ==
--- NOTE | 2024-06-22 17:11 | US_ITS ---
[address] [address] Patient Name: GIANCARLO CELAYA MRN: [id number] date: 1995 Sex: F Assigned Patient Location: US Current Patient Location: Accession/Order Number: [id number] Exam Date: 06/22/2024 17:16 Report Date: 06/23/2024 07:57 At the request of: HOLGER PEREZ Procedure: US OB anatomy EXAMINATION: US OB anatomy, US OB cervical length HISTORY: SCREENING, , FOR ANATOMIC SURVEY Z36.89 COMPARISON: No relevant comparison available. TECHNIQUE: Transabdominal sonographic examination was performed for obstetrical and evaluation. FINDINGS: Number: 1 Heart Rate: 142.86 bpm H.B. /min Amniotic Fluid Volume: Subjectively normal position: Cephalic presentation, longitudinal lie Placental Location: POSTERIOR, the placental edge is 2.3 cm from the internal cervical os. Grade 0. Cervix Length: 4.22 cm , closed Normal anatomy: Lateral ventricles, nose, lips, orbits, four-chamber heart, diaphragm, stomach, kidneys, abdominal cord insertion, bladder, umbilical arteries, three-vessel cord, spine, extremities Suboptimal visualization: Posterior fossa, RVOT, LVOT Nonvisualization: Cerebellum BIOMETRY: BPD: 4.77 cm; 20 weeks 3 days; 67.20 % HC: 17.17 cm; 19 weeks 5 days; 30.50 % AC: 14.47 cm; 19 weeks 6 days; 37 % FL: 3.34 cm; 20 weeks 3 days; 59.10 % EFW:330.72 g; 49.80 % FL/AC: 23.09 FL/BPD: 70.08 HC/AC: 1.19 GESTATIONAL AGE: Age by EDC: 20 weeks 0 days JESUS by EDC: 2024-11-09 Age by current US: 20 weeks 1 day JESUS by current US: 2024-11-08 US/US OB anatomy IMPRESSION: Suboptimal and nonvisualization detailed above Low lying placenta Closed cervix measuring 4.2 cm in length *Reference: [employer] Practice Guideline for the performance of Obstetric Ultrasound Examinations, February 06, 2007. Electronically authenticated by: JACK BAUTISTA Date: 06/23/2024 07:57
--- NOTE | 2024-06-22 17:11 | US_ITS ---
[address] [address] Patient Name: GIANCARLO CELAYA MRN: [id number] date: 1995 Sex: F Assigned Patient Location: US Current Patient Location: Accession/Order Number: [id number] Exam Date: 06/22/2024 17:16 Report Date: 06/23/2024 07:57 At the request of: HOLGER PEREZ Procedure: US OB cervical length EXAMINATION: US OB anatomy, US OB cervical length HISTORY: SCREENING, , FOR ANATOMIC SURVEY Z36.89 COMPARISON: No relevant comparison available. TECHNIQUE: Transabdominal sonographic examination was performed for obstetrical and evaluation. FINDINGS: Number: 1 Heart Rate: 142.86 bpm H.B. /min Amniotic Fluid Volume: Subjectively normal position: Cephalic presentation, longitudinal lie Placental Location: POSTERIOR, the placental edge is 2.3 cm from the internal cervical os. Grade 0. Cervix Length: 4.22 cm , closed Normal anatomy: Lateral ventricles, nose, lips, orbits, four-chamber heart, diaphragm, stomach, kidneys, abdominal cord insertion, bladder, umbilical arteries, three-vessel cord, spine, extremities Suboptimal visualization: Posterior fossa, RVOT, LVOT Nonvisualization: Cerebellum BIOMETRY: BPD: 4.77 cm; 20 weeks 3 days; 67.20 % HC: 17.17 cm; 19 weeks 5 days; 30.50 % AC: 14.47 cm; 19 weeks 6 days; 37 % FL: 3.34 cm; 20 weeks 3 days; 59.10 % EFW:330.72 g; 49.80 % FL/AC: 23.09 FL/BPD: 70.08 HC/AC: 1.19 GESTATIONAL AGE: Age by EDC: 20 weeks 0 days JESUS by EDC: 2024-11-09 Age by current US: 20 weeks 1 day JESUS by current US: 2024-11-08 US/US OB cervical length IMPRESSION: Suboptimal and nonvisualization detailed above Low lying placenta Closed cervix measuring 4.2 cm in length *Reference: [employer] Practice Guideline for the performance of Obstetric Ultrasound Examinations, February 06, 2007. Electronically authenticated by: JACK BAUTISTA Date: 06/23/2024 07:57
--- OUTSIDE RECORDS SUMMARY | 2024-06-22 17:16 | XMS_ITS | CCD ---
Author Organization [facility] Care Team Providers Care Cafeteria Food Server Name Role Phone TALON VERAS Unavailable Unavailable TALON VERAS L Unavailable Unavailable Hima Silver Primary Care Physician Unava iljennifer Silver, Hima Catherine Unavailable Unavailable Hima Silver A Primary Care Physician Unava iljennifer Silver, Hima A Primary Care Physician Unava iljennifer Pérez, Lyric N Primary Care Physician Unavakirk Pérez, Lyric N Primary Care Physician Unachad Pérez, Lyric N Primary Care Physician Unachad Silver, Hima A Primary Care Physician Unava iljennifer Pérez, Lyric N Primary Care Physician Unavai Deidra Morrison Unavailable Jodie Portillo Unavailable GELACIO Portillo Attending Provider Jodie Portillo Attending Unavailable Jodie Portillo Admitting Unavailable Corwin Dee DO Primary Care Provider Unallocated , Noms Provider Primary Care Provi kamille [place] ESTEVEZPCAT INSTRUCTORAna Attending Carley vailable Schlumbohm PA-C, Susana Dickerson Primary Care U navailable [place] 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, Ana Serra Attending Carley vailable Schlumbohm PA-C, Susana Dickerson Primary Care U navailable Mike Jones Attending Unavailable Schlumbohm PA-C, Susana Dickerson Primary Care U navailable Breece PA-C, Amara Serra Attending Unav ailable Schlumbohm PA-C, Susana Dickerson Referring U navailable Schlumbohm PA-C, Susana Dickerson Primary Care U navailable Schlumbohm PA-C, Susana Dickerson Attending U navailable Schlumbohm PA-C, Susana Dickerson Primary Care U navailable Schlumbohm PA-C, Susana Dickerson Attending U navailable Schlumbohm PA-C, Susana Dickerson Primary Care U navailable Ana Case Attending Carley vailable Schlumbohm CYNTHIA-C, Susana Dickerson [facility] ELEAZAR LILLY Attending Unavailable ELEAZAR LILLY Attending Unavailable ELEAZAR LILLY Attending Unavailable CHERYL PEREZ Attending Unavailable Medications Current Medications Medication Drug [...] daily as needed for muscle spasm 30 November 01, 2023 11:00pm January 24, 2024 [...] 05, 2024 11:00pm May 18, 2024 10:31am september repeat x 1 in 3 days if [...] kyphoscoliosis], idiopathic] 07-21-2023 Chronic Other complications of (10 sources) Vomiting of , unspecified; Translations: [Unspecified [...] 03-14-2024 Episodic Other and delivery including normal (15 sources) Early stage of ; Translations: [Encounter [...] Translations: [Flushing] 07-21-2023 Episodic Residual codes; unclassified (9 sources) Gestation period, 12 weeks; Translations: [12 [...] Test Name Value Interpretation Reference Range Facility IGP,APTIMA HPV,AGE GDLNon AGE GDLN ACOG TESTING Note . [facility] Comment on above: TESTS RESULT FLAG UN ITS REF RANGE LAB Clinician Provided Cytology Information Source.............Cervix No. of containers..01 ThinPrep Vial Age Algo ACOG Jessica... - 01 FLAG LEGEND: L-Low Normal,H-High Normal,LL-Alert Low,HH-Alert High <-Panic Low,>-Panic High,A-Abnormal,AA-Critical Abnormal Performed at: 01 =G [facility] [place] [address] Bri Keenan MD, IGP, RFX APTIMA HPV ASCU Note . [facility] Comment on above: TESTS RESULT FLAG U NITS REF RANGE LAB DIAGNOSIS: 02 NEGATIVE FOR INTRAEPITHELIAL LESION OR MALIGNANCY. Specimen adequacy: 02 Satisfactory for evaluation. No endocervical component is identified. Performed by: 02 Ramin Farrell, Soil Biology Teacher ([facility]) . 02 Note: Note 02 The Pap smear is a screening test designed to aid in the detection of premalignant and malignant conditions of the uterine cervix. It is not a diagnostic procedure and should not be used as the sole means of detecting cervical cancer. Both false-positive and false-negative reports do occur. Test Methodology: Note 02 This liquid based ThinPrep(R) pap test was screened with the use of an image guided system. . 02 The HPV DNA reflex criteria were not met with this specimen result therefore, no HPV testing was performed. FLAG LEGEND: L-Low Normal,H-High Normal,LL-Alert Low,HH-Alert High <-Panic Low,>-Panic High,A-Abnormal,AA-Critical Abnormal Performed at: [address] [facility] [address] [place] [address] Bri Keenan MD, Performed at: =G - [facility] [address] [id number] Development Scientist: Bri Keenan MD, Phone: [phone] Performed at: [facility] [id number] Development Scientist: Bri Keenan MD, Phone: [phone] [facility] Urinalysis macro (dipstick) panel (U)on 05-28-2024 Bilirubin, UA Negative Negative - 4(70) +++ mg/dL [facility] Blood, UA Negative Negative - 50 Fuad/mcL [facility] Clarity, UA Clear [facility] Color, UA Yellow [facility] Glucose, UA Negative Negative - 1999(110) ++++ mg/dL [facility] Interpretation and review of laboratory results Normal [facility] Ketones, UA Negative Negative - 160(16) ++++ mg/dL [facility] Leukocytes, UA Negative Negative - 500+++ Sandie/mcL [facility] Nitrite, UA Negative Negative - Positive [facility] pH, UA 5.5 5 - 9 [facility] Protein, UA Negative Negative - 1999(20) ++++ mg/dL [facility] Spec Grav, UA 1.02 1 - 1.03 [facility] Urobilinogen, UA 1.0 0.2 - 12 mg/dL [facility] Urinalysis macro (dipstick) panel (U)on 04-30-2024 Bilirubin, UA Negative Negative - 4(70) +++ mg/dL [facility] Blood, UA Negative Negative - 50 Fuad/mcL [facility] Clarity, UA Clear [facility] Color, UA Yellow [facility] Glucose, UA Negative Negative - 1999(110) ++++ mg/dL [facility] Interpretation and review of laboratory results Abnormal [facility] Ketones, UA Positive Negative - 160(16) ++++ mg/dL [facility] Comment on above: trace Leukocytes, UA Negative Negative - 500+++ Sandie/mcL [facility] Nitrite, UA Negative Negative - Positive [facility] pH, UA 5.5 5 - 9 [facility] Protein, UA Negative Negative - 1999(20) ++++ mg/dL [facility] Spec Grav, UA 1.025 1 - 1.03 [facility] Urobilinogen, UA 0.2 0.2 - 12 mg/dL [facility] Basophils Auto (Bld) [#/Vol] on 04-16-2024 Basophils (Bld) [#/Vol] Automated basophil count 0.0-0.1 [facility] Basophils/100 WBC Auto (Bld) on 04-16-2024 Basophils/100 WBC (Bld) Automated basophil % 0.2-2.0 [facility] Buprenorphine [Presence] in Urineon 04-16-2024 Buprenorphine Ql (U) Buprenorphine [Presence] in Urine NEGATIVE [facility] Comment on above: DRUG CLASS TEST [...] Automated eosinophil % Low 0.9-7.0 [facility] Erythrocyte distribution wid th Auto (RBC) [Ratio]on 04-16-2024 Erythrocyte distribution width (RBC) [Ratio] Erythrocyte distribution width [Ratio] by Automated count 11.0-15.0 [facility] Glucose mean value [Mass/vol ume] in Blood Estimated from glycated hemoglobinon 04-16-2024 Average glucose Estimated from glycated hemoglobin (Bld) [Mass/Vol] Glucose mean value [Mass/volume] in Blood Estimated from glycated hemoglobin [facility] HBV surface Ag IA Qlon 04-16 Hepatitis B Surface Antigen Negative Negative [facility] Comment on above: Performed at: [address] [id number] Director: Sheldon Polo PhD, Phone: [phone] HIV 1 and HIV-2 antibody ass ay with HIV-1 p24 antigen detectionon 04-16-2024 HIV 1+2 Ab+HIV1 p24 Ag IA Ql HIV 1 and HIV-2 antibody assay with HIV-1 p24 antigen detection Non Reactive [facility] Comment on above: HIV-1/HIV-2 antibodi es and HIV-1 p24 antigen were NOTdetected. There is no laboratory evidence of HIV infection.HIV NegativePerformed at: - [facility] [id number] Director: Sheldon Polo PhD, Phone: [phone] Hematocrit Auto (Bld) [Volum e fraction]on 04-16-2024 Hematocrit (Bld) [Volume fraction] Hematocrit [Volume Fraction] of Blood by Automated count 36.0-48.0 [facility] Hemoglobin [Mass/volume] in Bloodon 04-16-2024 Hemoglobin (Bld) [Mass/Vol] Hemoglobin [Mass/volume] in Blood 12.0-16.0 [facility] Laboratory - Drug toxicology on 04-16-2024 Amphetamines Ql (U) Negative NEGATIVE Count Includes [facility] ands [facility] Benzodiazepines Ql (U) Negative NEGATIVE [facility] Cocaine Ql (U) Negative NEGATIVE [facility] Opiates Ql (U) Negative NEGATIVE [facility] Phencyclidine Ql (U) Negative NEGATIVE [facility] Laboratory - Hematology and Cell countson 04-16-2024 HbA1c (Bld) [Mass fraction] 4.8 % 4.5-6.2 [facility] Comment on above: ADA RECOMMENDED LIMI T 4.0 - 6.0ADA THERAPEUTIC TARGET < 7.0ACTION SUGGESTED> 7.0 Immature granulocytes/100 WBC (Bld) 0.6 % High 0.0-0.5 [facility] Leukocytes [#/volume] correc leonidas for nucleated erythrocytes in Blood by Automated counon 04-16-2024 WBC corrected for nucl RBC Auto (Bld) [#/Vol] Leukocytes [#/volume] corrected for nucleated erythrocytes in Blood by Automated coun 4.0-11.0 [facility] Lymphocytes Auto (Bld) [#/Vo l]on 04-16-2024 Lymphocytes (Bld) [#/Vol] Lymphocytes [#/volume] in Blood by Automated count 1.2-3.8 [facility] Lymphocytes/100 WBC Auto (Bl d)on 04-16-2024 Lymphocytes/100 WBC (Bld) Lymphocytes/100 leukocytes in Blood by Automated count Low 20.5-60.0 [facility] MCH Auto (RBC) [Entitic mass ]on 04-16-2024 MCH (RBC) [Entitic mass] MCH [Entitic mass] by Automated count 26.7-34.0 [facility] MCHC Auto (RBC) [Mass/Vol]on 04-16-2024 MCHC (RBC) [Mass/Vol] MCHC [Mass/volume] by Automated count High 29.9-35.2 [facility] MCV Auto (RBC) [Entitic vol] on 04-16-2024 MCV (RBC) [Entitic vol] MCV [Entitic volume] by Automated count 81.0-99.0 [facility] MLR HEMOGLOBIN A1Con 024 Glucose [Mass/Vol] 91 mg/dL [facility] HbA1c (Bld) [Mass fraction] 4.8 % 4.5 - 6.2 % [facility] Comment on above: ADA RECOMMENDED LIMI T 4.0 - 6.0 ADA THERAPEUTIC TARGET < 7.0 ACTION SUGGESTED > 7.0 [facility] Methadone [Presence] in Urin e by Screen methodon 04-16-2024 Methadone Screen Ql (U) Methadone [Presence] in Urine by Screen method NEGATIVE [facility] Monocytes Auto (Bld) [#/Vol] on 04-16-2024 Monocytes (Bld) [#/Vol] Automated blood monocyte count 0.3-0.8 [facility] Monocytes/100 WBC Auto (Bld) on 04-16-2024 Monocytes/100 WBC (Bld) Automated monocyte % 1.7-12.0 [facility] Neutrophils Auto (Bld) [#/Vo l]on 04-16-2024 Neutrophils (Bld) [#/Vol] Neutrophils [#/volume] in Blood by Automated count High 1.4-6.5 [facility] Neutrophils/100 WBC Auto (Bl d)on 04-16-2024 Neutrophils/100 WBC (Bld) Automated neutrophil % 43.0-75.0 [facility] No Panel Informationon 04-16 Eosinophils # (Auto) 0.1 10 3/uL 0.0-0.7 [facility] Hepatitis C Interpretation Comment . [facility] Comment on above: Not infected with HC V unless early or acute infection issuspected (which may be delayed in an immunocompromisedindividual), or other evidence exists to indicate HCVinfection. Immature Granulocyte # (Auto) 0.05 10 3/uL High 0.00-0.03 [facility] RPR Quantitative Confirmation Non Reactive titer NonRea<1:1 [facility] Comment on above: Please Note: This te st does not meet current guidelines forscreening and diagnosis of syphilis. This test isintended for following treatment response in patients beingtreated for syphilis infection. To screen for syphilisinfection, a reflex cascade that includes both RPR and atreponema-specific assay should be utilized, such asTreponema pallidum (Syphilis) Screening [place] (571405) orRapid Plasma Reagin (RPR) Test With Reflex to QuantitativeRPR and Confirmatory Treponema pallidum Antibodies(365113).Performed at: [facility] [id number] Director: Sheldon Polo PhD, Phone: [phone] Rubella IgG Antibody 7.20 index Immune >0.99 [facility] Comment on above: Non-immune <0.90 Equ ivocal 0.90 - 0.99 Immune >0.99 Urine Barbiturates Screen Negative NEGATIVE [facility] Urine Marijuana (THC) Screen Negative NEGATIVE [facility] Urine Methamphetamines Screen Negative NEGATIVE [facility] Platelet mean volume Auto (B ld) [Entitic vol]on 04-16-2024 Platelet mean volume (Bld) [Entitic vol] Platelet mean volume [Entitic volume] in Blood by Automated count 9.5-13.5 [facility] Platelets Auto (Bld) [#/Vol] on 04-16-2024 Platelets (Bld) [#/Vol] Platelets [#/volume] in Blood by Automated count 150-450 [facility] RBC Auto (Bld) [#/Vol]on RBC (Bld) [#/Vol] Erythrocytes [#/volume] in Blood by Automated count 4.20-5.40 [facility] Serum or plasma hepatitis C virus antibody signal/cutoff ratio by immunoassay (relation 04-16-2024 HCV Ab Signal/Cutoff IA [Rel units/Vol] Serum or plasma hepatitis C virus antibody signal/cutoff ratio by immunoassay (relati Non Reactive [facility] Urine tricyclic antidepressa nt measurementon 04-16-2024 Tricyclic antidepressants (U) [Mass/Vol] Urine tricyclic antidepressant measurement NEGATIVE [facility] oxyCODONE+oxyMORphone [Prese nce] in Urine by Screen methodon 04-16-2024 oxyCODONE+oxyMORphone Screen Ql (U) oxyCODONE+oxyMORphone [Presence] in Urine by Screen method NEGATIVE [facility] BOX TESTon 04-13-2024 BOX TEST SENT OUT 04/13/2024 [facility] BOX1 indidebt [facility] BOX2 [facility] HCG ( test) Ql (U)o n 03-23-2024 Interpretation and review of laboratory results Abnormal [facility] Preg Test, Ur Positive Negative [facility] Urinalysis macro (dipstick) panel (U)on 03-23-2024 Bilirubin, UA Negative Negative - 4(70) +++ mg/dL [facility] Blood, UA Negative Negative - 50 Fuad/mcL [facility] Clarity, UA Clear [facility] Color, UA Yellow [facility] Glucose, UA Negative Negative - 1999(110) ++++ mg/dL [facility] Interpretation and review of laboratory results Abnormal [facility] Ketones, UA Positive Negative - 160(16) ++++ mg/dL [facility] Leukocytes, UA Negative Negative - 500+++ Sandie/mcL [facility] Nitrite, UA Negative Negative - Positive [facility] pH, UA 5.5 5 - 9 [facility] Protein, UA Negative Negative - 1999(20) ++++ mg/dL [facility] Spec Grav, UA 1.03 1 - 1.03 [facility] Urobilinogen, UA 0.2 0.2 - 12 mg/dL [facility] Laboratory - Chemistry and C hemistry - challengeon 03-17-2024 Bilirubin Ql (U) Negative NEGATIVE [facility] Glucose (U) [Mass/Vol] Negative NEGATIVE [facility] Ketones Ql (U) Negative NEGATIVE [facility] pH (U) 7.0 [pH] 5.0-9.0 [facility] Specific gravity (U) [Rel density] 1.020 1.005-1.025 [facility] Urobilinogen Qn (U) 1.0 {Chanel'U}/dL 0.2-1.0 [facility] Laboratory - Specimen inform ationon 03-17-2024 Appearance (U) CLEAR CLEAR [facility] Color (U) LT. YELLOW YELLOW [facility] Laboratory - Urinalysison Leukocyte esterase Test strip Ql (U) TRACE Abnormal NEGATIVE [facility] Mucus Ql (Urine sed) TRACE Abnormal NONE SEEN [facility] Nitrite Ql (U) Negative NEGATIVE [facility] Protein Ql (U) Negative NEG/TRACE [facility] No Panel Informationon 03-17 Human Chorionic Gonadotropin, Quant 99863 mIU/mL [facility] Comment on above: 5-50 0.2-1 [id number] 0 1-2 NGXOK350-3,000 2-3 JQGJK417-21,000 3-4 WEEKS1,000-50,000 4-5 WEEKS10,000-100,000 5-6 WEEKS15,000-200,000 6-8 WEEKS10,000-100,000 2-3 MONTHS Miscellaneous Test Comment See comment [facility] Comment on above: Specimen Source: UCC - Urine,Clean Catch - Urine CC - 200.100 Urine Bacteria MODERATE #/HPF Abnormal NONE SEEN [facility] Urine Culture Reflexed YES [facility] Urine Culture Result 1 \R\ Urine Culture, Routine [facility] Urine Microscopic Review YES [facility] Urine Occult Blood MODERATE Abnormal NEGATIVE [facility] Urine Other Casts NONE SEEN #/LPF NONE SEEN [facility] Urine Other Crystals None Seen #/HPF None Seen [facility] Urine RBC 2-5 #/HPF Abnormal 0-2 [facility] Urine Squamous Epithelial Cells MODERATE #/LPF Abnormal NONE/RARE [facility] Urine WBC 0-2 #/HPF Abnormal NONE SEEN [facility] HCG ( test) Ql (U)o n 03-14-2024 Interpretation and review of laboratory results Abnormal [facility] Preg Test, Ur Positive Negative [facility] Urinalysis macro (dipstick) panel (U)on 03-14-2024 Bilirubin, UA Positive Negative - 4(70) +++ mg/dL [facility] Comment on above: small Blood, UA Positive Negative - 50 Fuad/mcL [facility] Comment on above: moderate Clarity, UA Clear [facility] Color, UA Yellow [facility] Glucose, UA Negative Negative - 1999(110) ++++ mg/dL [facility] Interpretation and review of laboratory results Abnormal [facility] Ketones, UA Positive Negative - 160(16) ++++ mg/dL [facility] Comment on above: 40 Leukocytes, UA Negative Negative - 500+++ Sandie/mcL [facility] Nitrite, UA Negative Negative - Positive [facility] pH, UA 5.5 5 - 9 [facility] Protein, UA Negative Negative - 1999(20) ++++ mg/dL [facility] Spec Grav, UA 1.03 1 - 1.03 [facility] Urobilinogen, UA 0.2 0.2 - 12 mg/dL [facility] No Panel Informationon 03-08 Human Chorionic Gonadotropin, Quant 2190 mIU/mL [facility] Comment on above: 5-50 0.2-1 [id number] 0 1-2 XAZJM830-7,000 2-3 ATEDX321-81,000 3-4 WEEKS1,000-50,000 4-5 WEEKS10,000-100,000 5-6 WEEKS15,000-200,000 6-8 WEEKS10,000-100,000 2-3 MONTHS [facility] PREG QUANT HCGon 024 HCG QUANTITATIVE 2190 mIU/mL [facility] Comment on above: 5-50 0.2-1 WEEK 50-500 1-2 WEEKS 100-5,000 2-3 WEEKS 500-10,000 3-4 WEEKS 1,000-50,000 4-5 WEEKS 10,000-100,000 5-6 WEEKS 15,000-200,000 6-8 WEEKS 10,000-100,000 2-3 MONTHS [facility] No Panel Informationon 03-02 Human Chorionic Gonadotropin, Quant 67 mIU/mL [facility] Comment on above: 5-50 0.2-1 [id number] 0 1-2 VODXL988-4,000 2-3 UCWSW799-29,000 3-4 WEEKS1,000-50,000 4-5 WEEKS10,000-100,000 5-6 WEEKS15,000-200,000 6-8 WEEKS10,000-100,000 2-3 MONTHS No Panel Informationon 02-28 Human Chorionic Gonadotropin, Quant 30 mIU/mL [facility] Comment on above: 5-50 0.2-1 [id number] 0 1-2 XBNYS125-0,000 2-3 OHCAV084-49,000 3-4 WEEKS1,000-50,000 4-5 WEEKS10,000-100,000 5-6 WEEKS15,000-200,000 6-8 WEEKS10,000-100,000 2-3 MONTHS Basophils Auto (Bld) [#/Vol] on 02-27-2024 Basophils (Bld) [#/Vol] Automated basophil count 0.0-0.1 [facility] Basophils/100 WBC Auto (Bld) on 02-27-2024 Basophils/100 WBC (Bld) Automated basophil % 0.2-2.0 [facility] Eosinophils/100 WBC Auto (Bl d)on 02-27-2024 Eosinophils/100 WBC (Bld) Automated eosinophil % Low 0.9-7.0 [facility] Erythrocyte distribution wid th Auto (RBC) [Ratio]on 02-27-2024 Erythrocyte distribution width (RBC) [Ratio] Erythrocyte distribution width [Ratio] by Automated count 11.0-15.0 [facility] Estimated glomerular filtrat ion rate (GFR) non- Americanon 02-27-2024 GFR/1.73 sq M.predicted among non-blacks MDRD (S/P/Bld) [Vol rate/Area] Estimated glomerular filtration rate (GFR) non- >=60 mL/min/1.73 m 2 [facility] HCG ( test) IA.rapi d Ql (U)on 02-27-2024 HCG ( test) Ql (U) Urine human chorionic gonadotropin (hCG) detection by immunoassay Abnormal NEGATIVE [facility] Hematocrit Auto (Bld) [Volum e fraction]on 02-27-2024 Hematocrit (Bld) [Volume fraction] Hematocrit [Volume Fraction] of Blood by Automated count 36.0-48.0 [facility] Hemoglobin [Mass/volume] in Bloodon 02-27-2024 Hemoglobin (Bld) [Mass/Vol] Hemoglobin [Mass/volume] in Blood 12.0-16.0 [facility] Laboratory - Chemistry and C hemistry - challengeon 02-27-2024 Calcium [Mass/Vol] 9.4 mg/dL 8.5-10.1 [facility] Chloride [Moles/Vol] 104 mmol/L 98-107 [facility] CO2 [Moles/Vol] 22.6 mmol/L 21.0-32.0 [facility] Creatinine [Mass/Vol] 0.79 mg/dL 0.55-1.02 [facility] GFR/1.73 sq M.predicted MDRD (S/P/Bld) [Vol rate/Area] mL/min/{1.73_m2} >=60 mL/min/1.73 m 2 [facility] Glucose [Mass/Vol] 88 mg/dL 74-106 [facility] Potassium [Moles/Vol] 3.4 mmol/L Low 3.5-5.1 [facility] Sodium [Moles/Vol] 139 mmol/L 136-145 [facility] Urea nitrogen [Mass/Vol] 10.0 mg/dL 7.0-18.0 [facility] Urea nitrogen/Creatinine [Mass ratio] 12.7 mg/mg [facility] Bilirubin Ql (U) Negative NEGATIVE [facility] Glucose (U) [Mass/Vol] Negative NEGATIVE [facility] Ketones Ql (U) 15 mg/dL Abnormal NEGATIVE [facility] pH (U) 6.0 [pH] 5.0-9.0 [facility] Specific gravity (U) [Rel density] 1.025 1.005-1.025 [facility] Urobilinogen Qn (U) 0.2 {Chanel'U}/dL 0.2-1.0 [facility] Laboratory - Hematology and Cell countson 02-27-2024 Immature granulocytes/100 WBC (Bld) 0.1 % 0.0-0.5 [facility] Laboratory - Specimen inform ationon 02-27-2024 Appearance (U) CLEAR CLEAR [facility] Color (U) LT. YELLOW YELLOW [facility] Laboratory - Urinalysison Leukocyte esterase Test strip Ql (U) Negative NEGATIVE [facility] Nitrite Ql (U) Negative NEGATIVE [facility] Protein Ql (U) Negative NEG/TRACE [facility] Leukocytes [#/volume] correc leonidas for nucleated erythrocytes in Blood by Automated counon 02-27-2024 WBC corrected for nucl RBC Auto (Bld) [#/Vol] Leukocytes [#/volume] corrected for nucleated erythrocytes in Blood by Automated coun 4.0-11.0 [facility] Lymphocytes Auto (Bld) [#/Vo l]on 02-27-2024 Lymphocytes (Bld) [#/Vol] Lymphocytes [#/volume] in Blood by Automated count 1.2-3.8 [facility] Lymphocytes/100 WBC Auto (Bl d)on 02-27-2024 Lymphocytes/100 WBC (Bld) Lymphocytes/100 leukocytes in Blood by Automated count 20.5-60.0 [facility] MCH Auto (RBC) [Entitic mass ]on 02-27-2024 MCH (RBC) [Entitic mass] MCH [Entitic mass] by Automated count 26.7-34.0 [facility] MCHC Auto (RBC) [Mass/Vol]on 02-27-2024 MCHC (RBC) [Mass/Vol] MCHC [Mass/volume] by Automated count High 29.9-35.2 [facility] MCV Auto (RBC) [Entitic vol] on 02-27-2024 MCV (RBC) [Entitic vol] MCV [Entitic volume] by Automated count 81.0-99.0 [facility] Monocytes Auto (Bld) [#/Vol] on 02-27-2024 Monocytes (Bld) [#/Vol] Automated blood monocyte count 0.3-0.8 [facility] Monocytes/100 WBC Auto (Bld) on 02-27-2024 Monocytes/100 WBC (Bld) Automated monocyte % 1.7-12.0 [facility] Neutrophils Auto (Bld) [#/Vo l]on 02-27-2024 Neutrophils (Bld) [#/Vol] Neutrophils [#/volume] in Blood by Automated count 1.4-6.5 [facility] Neutrophils/100 WBC Auto (Bl d)on 02-27-2024 Neutrophils/100 WBC (Bld) Automated neutrophil % 43.0-75.0 [facility] No Panel Informationon 02-26 Eosinophils # (Auto) 0.1 10 3/uL 0.0-0.7 [facility] Human Chorionic Gonadotropin, Quant 16 mIU/mL [facility] Comment on above: 5-50 0.2-1 [id number] 0 1-2 CZWIA942-6,000 2-3 NHXYQ030-25,000 3-4 WEEKS1,000-50,000 4-5 WEEKS10,000-100,000 5-6 WEEKS15,000-200,000 6-8 WEEKS10,000-100,000 2-3 MONTHS Immature Granulocyte # (Auto) 0.01 10 3/uL 0.00-0.03 [facility] Urine Microscopic Review NO [facility] Urine Occult Blood Negative NEGATIVE [facility] Platelet mean volume Auto (B ld) [Entitic vol]on 02-27-2024 Platelet mean volume (Bld) [Entitic vol] Platelet mean volume [Entitic volume] in Blood by Automated count 9.5-13.5 [facility] Platelets Auto (Bld) [#/Vol] on 02-27-2024 Platelets (Bld) [#/Vol] Platelets [#/volume] in Blood by Automated count 150-450 [facility] RBC Auto (Bld) [#/Vol]on RBC (Bld) [#/Vol] Erythrocytes [#/volume] in Blood by Automated count 4.20-5.40 [facility] Serum or plasma anion gap de terminationon 02-27-2024 Anion gap [Moles/Vol] Serum or plasma an ion gap determination [facility] No Panel Informationon 02-20 Human Chorionic Gonadotropin, Quant <1 mIU/mL [facility] Comment on above: 5-50 0.2-1 [id number] 0 1-2 NLLVW995-5,000 2-3 TOWQT688-42,000 3-4 WEEKS1,000-50,000 4-5 WEEKS10,000-100,000 5-6 WEEKS15,000-200,000 6-8 WEEKS10,000-100,000 2-3 MONTHS URETHRITIS/DISCHARGE PLUS VA GINITIS (HTRX)on 02-10-2024 ATOPOBIUM VAGINAE 0.000 [facility] ATOPOBIUM VAGINAE Not detected [facility] BVAB 2,3 (BACTERIAL VAGINOSIS ASSOCIATED BACTERIA 2, 3); MOBILUNCUS SPP 0.000 [facility] BVAB 2,3 (BACTERIAL VAGINOSIS ASSOCIATED BACTERIA 2, 3); MOBILUNCUS SPP Not detected [facility] ALICIA ALBICANS, PARAPSILOSIS, TROPICALIS 0.000 [facility] ALICIA ALBICANS, PARAPSILOSIS, TROPICALIS Not detected [facility] ALICIA GLABRATA 0.000 [facility] ALICIA GLABRATA Not detected [facility] ALICIA KRUSEI 0.000 [facility] ALICIA KRUSEI Not detected [facility] CHLAMYDIA TRACHOMATIS 0.000 [facility] CHLAMYDIA TRACHOMATIS Not detected N [facility] GARDNERELLA VAGINALIS 0.000 [facility] GARDNERELLA VAGINALIS Not detected N [facility] MEGASPHAERA (TYPES 1, 2) 0.000 [facility] MEGASPHAERA (TYPES 1, 2) Not detected [facility] MYCOPLASMA GENITALIUM 0.000 [facility] MYCOPLASMA GENITALIUM Not detected N [facility] NEISSERIA GONORRHOEAE 0.000 [facility] NEISSERIA GONORRHOEAE Not detected N [facility] TRICHOMONAS VAGINALIS 0.000 [facility] TRICHOMONAS VAGINALIS Not detected N [facility] HCG ( test) Ql (U)o n 02-08-2024 Interpretation and review of laboratory results Normal [facility] Preg Test, Ur Negative [facility] Urinalysis macro (dipstick) panel (U)on 02-08-2024 Bilirubin, UA Negative Negative - 4(70) +++ mg/dL [facility] Blood, UA Negative Negative - 50 Fuad/mcL [facility] Clarity, UA Clear [facility] Color, UA Yellow [facility] Glucose, UA Negative Negative - 2000(110) ++++ mg/dL [facility] Interpretation and review of laboratory results Normal [facility] Ketones, UA Negative Negative - 160(16) ++++ mg/dL [facility] Leukocytes, UA Negative Negative - 500+++ Sandie/mcL [facility] Nitrite, UA Negative Negative - Positive [facility] pH, UA 7.5 5 - 9 [facility] Protein, UA Negative Negative - 2000(20) ++++ mg/dL [facility] Spec Grav, UA 1.020 1 - 1.03 [facility] Urobilinogen, UA 0.2 0.2 - 12 mg/dL [facility] Vaginitis Plus (VG+)on 02-01 Atopobium Vaginae Low - 0 Normal . [facility] Comment on above: Result Comment: This test was developed and its performance characteristics determined by [facility]. It has not been cleared or approved by the Food and Drug Administration. Performed By: #### V AGINITIS+ #### [facility] , BVAB2 Low - 0 Normal . [facility] Comment on above: Result Comment: This test was developed and its performance characteristics determined by [facility]. It has not been cleared or approved by the Food and Drug Administration. Performed By: #### V AGINITIS+ #### [facility] , Alicia Albicans, ELDON Positive Critically abnormal Negative [facility] Comment on above: Result Comment: This test was developed and its performance characteristics determined by [facility]. It has not been cleared or approved by the Food and Drug Administration. Performed By: #### V AGINITIS+ #### [facility] , Alicia Glabrata, ELDON Negative Normal Negative [facility] Comment on above: Result Comment: This test was developed and its performance characteristics determined by [facility]. It has not been cleared or approved by the Food and Drug Administration. PERFORMED BY: [address] [place] [address] PATHOLOGIST NEWSPAPER DELIVERY DRIVER IRENE TURPIN M.D. Performed By: #### V AGINITIS+ #### [facility] , Chlamydia Trachomotis, ELDON Negative Normal Negative [facility] Comment on above: Performed By: #### V AGINITIS+ #### [facility] , Megasphaera Low - 0 Normal . [facility] Comment on above: Result Comment: [...] Neisseria Gonorrhoeae, ELDON Negative Normal Negative [facility] Comment on above: Result Comment: Perf ormed at: =G - [facility] [address] [place], [place] [id number] Development Scientist: Bri Keenan MD, Phone: [phone] Performed By: #### V AGINITIS+ #### [facility] , Tric Vag ELDON Negative Normal Negative [facility] Comment on above: Performed By: #### V AGINITIS+ #### [facility] , Basophils Auto (Bld) [#/Vol] on 01-19-2024 Basophils (Bld) [#/Vol] 0.0 10 3/uL 0.0-0.1 [facility] Basophils/100 WBC Auto (Bld) on 01-19-2024 Basophils/100 WBC (Bld) 0.4 % 0.2-2.0 [facility] Eosinophils/100 WBC Auto (Bl d)on 01-19-2024 Eosinophils/100 WBC (Bld) 1.0 % 0.9-7.0 [facility] Erythrocyte distribution wid th Auto (RBC) [Ratio]on 01-19-2024 Erythrocyte distribution width (RBC) [Ratio] 11.7 % 11.0-15.0 [facility] Estimated glomerular filtrat ion rate (GFR) non- Americanon 01-19-2024 GFR/1.73 sq M.predicted among non-blacks MDRD (S/P/Bld) [Vol rate/Area] mL/min/{1.73_m2} >=60 [facility] Hematocrit Auto (Bld) [Volum e fraction]on 01-19-2024 Hematocrit (Bld) [Volume fraction] 39.6 % 36.0-48.0 [facility] Hemoglobin [Mass/volume] in Bloodon 01-19-2024 Hemoglobin (Bld) [Mass/Vol] 14.3 g/dL 12.0-16.0 [facility] Laboratory - Chemistry and C hemistry - challengeon 01-19-2024 Calcium [Mass/Vol] 8.7 mg/dL 8.5-10.1 [facility] Chloride [Moles/Vol] 100 mmol/L 98-107 [facility] CO2 [Moles/Vol] 27.5 mmol/L 21.0-32.0 [facility] Creatinine [Mass/Vol] 0.88 mg/dL 0.55-1.02 [facility] GFR/1.73 sq M.predicted MDRD (S/P/Bld) [Vol rate/Area] mL/min/{1.73_m2} >=60 [facility] Glucose [Mass/Vol] 94 mg/dL 74-106 [facility] Potassium [Moles/Vol] 3.3 mmol/L Low 3.5-5.1 [facility] Sodium [Moles/Vol] 135 mmol/L Low 136-145 [facility] Urea nitrogen [Mass/Vol] 12.0 mg/dL 7.0-18.0 [facility] Urea nitrogen/Creatinine [Mass ratio] 13.6 mg/mg [facility] Laboratory - Hematology and Cell countson 01-19-2024 Immature granulocytes/100 WBC (Bld) 0.0 % 0.0-0.5 [facility] Leukocytes [#/volume] correc leonidas for nucleated erythrocytes in Blood by Automated counon 01-19-2024 WBC corrected for nucl RBC Auto (Bld) [#/Vol] 4.8 10 3/uL 4.0-11.0 [facility] Lymphocytes Auto (Bld) [#/Vo l]on 01-19-2024 Lymphocytes (Bld) [#/Vol] 1.2 10 3/uL 1.2-3.8 [facility] Lymphocytes/100 WBC Auto (Bl d)on 01-19-2024 Lymphocytes/100 WBC (Bld) 25.1 % 20.5-60.0 [facility] MCH Auto (RBC) [Entitic mass ]on 01-19-2024 MCH (RBC) [Entitic mass] 30.4 pg 26.7-34.0 [facility] MCHC Auto (RBC) [Mass/Vol]on 01-19-2024 MCHC (RBC) [Mass/Vol] 36.1 g/dL High 29.9-35.2 [facility] MCV Auto (RBC) [Entitic vol] on 01-19-2024 MCV (RBC) [Entitic vol] 84.1 fL 81.0-99.0 [facility] Monocytes Auto (Bld) [#/Vol] on 01-19-2024 Monocytes (Bld) [#/Vol] 0.6 10 3/uL 0.3-0.8 [facility] Monocytes/100 WBC Auto (Bld) on 01-19-2024 Monocytes/100 WBC (Bld) 11.6 % 1.7-12.0 [facility] Neutrophils Auto (Bld) [#/Vo l]on 01-19-2024 Neutrophils (Bld) [#/Vol] 3.0 10 3/uL 1.4-6.5 [facility] Neutrophils/100 WBC Auto (Bl d)on 01-19-2024 Neutrophils/100 WBC (Bld) 61.9 % 43.0-75.0 [facility] No Panel Informationon 01-18 Eosinophils # (Auto) 0.1 10 3/uL 0.0-0.7 [facility] Human Chorionic Gonadotropin, Qual Negative NEGATIVE [facility] Immature Granulocyte # (Auto) 0.00 10 3/uL 0.00-0.03 [facility] Platelet mean volume Auto (B ld) [Entitic vol]on 01-19-2024 Platelet mean volume (Bld) [Entitic vol] 11.2 fL 9.5-13.5 [facility] Platelets Auto (Bld) [#/Vol] on 01-19-2024 Platelets (Bld) [#/Vol] 137 10 3/uL Low 150-450 [facility] RBC Auto (Bld) [#/Vol]on RBC (Bld) [#/Vol] 4.71 10 6/uL 4.20-5.40 [facility] Serum or plasma anion gap de terminationon 01-19-2024 Anion gap [Moles/Vol] 10.8 mmol/L [facility] Choriogonadotropin.beta subu nit ( test) [Presence] in Urineon 01-03-2024 Beta HCG ( test) Ql (U) Negative [facility] Influenza virus A and B and SARS-CoV-2 (COVID-19) RNA panel - Respiratory system specon 01-03-2024 Influenza virus A and B RNA and SARS-CoV-2 (COVID-19) N gene panel ELDON+probe (Resp) Negative [facility] Laboratory - Microbiology an d Antimicrobial susceptibilityon 01-03-2024 SARS-CoV-2 (COVID-19) RNA ELDON+probe Ql (Unsp spec) Negative [facility] No Panel Informationon 01-02 POC Influenza B (ELDON) Negative [facility] No Panel InformationOrdered By: Evelyn Vu on 01-03-2024 Quick Strep (POC) [facility] Quick Strepon 10-02-2022 S. pyogenes Org specific cx Ql (Throat) Negative ITC Other Quick Strep [employer] [facility] [employer] Other COVID19(IDNOW)on 11-30-2019 COVID19(IDNOW) NOT DETECTED Normal NOT DETECTED [facility] Comment on above: Result Comment: Nega tive results do not preclude SARS-CoV-2 infection and should not be used as the sole basis for treatiment or other patient management. ENHANCED CONTACT, AND DROPLET ISOLATION IS REQUIRED FOR INPATIENTS WITH SARS-CoV-2. Performed By: #### C OVID19(IDNOW) #### [facility] [address] [place], [place] [id number] Age at specimen collection = Normal [facility] Comment on above: Performed By: #### C OVID19(IDNOW) #### [facility] [address] [place] [address] Hematologyon 05-11-2019 Basophils (Bld) [#/Vol] 0.0 10*3/uL 0.0-0.1 Tag & See Basophils/100 WBC (Bld) 0.40 % 0.0-1.0 Tag & See Eosinophils (Bld) [#/Vol] 0.10 10*3/uL 0.0-0.5 Tag & See Eosinophils/100 WBC (Bld) 1.30 % 0.0-7.0 Tag & See Hematocrit (Bld) [Volume fraction] 41.30 % 35.7-47.1 Tag & See Hemoglobin (Bld) [Mass/Vol] 14.10 g/dL 11.9-15.7 Tag & See Lymphocytes (Bld) [#/Vol] 2.20 10*3/uL 0.9-3.1 Tag & See Lymphocytes/100 WBC (Bld) 29.30 % 15.0-46.0 Tag & See MCH (RBC) [Entitic mass] 29.90 pg 23.2-33.3 Tag & See MCV (RBC) [Entitic vol] 87.50 fL 83.4-101.4 Tag & See Monocytes (Bld) [#/Vol] 0.60 10*3/uL 0.3-1.0 Tag & See Monocytes/100 WBC (Bld) 8.60 % 4.0-12.0 Tag & See Neutrophils (Bld) [#/Vol] 4.50 10*3/uL 1.8-7.9 [facility] Neutrophils/100 WBC (Bld) 60.0 % 43.0-76.0 [facility] Platelets (Bld) [#/Vol] 160.0 10*3/uL 150-400 [facility] RBC (Bld) [#/Vol] 4.720 10*6/uL 3.72-5.24 [facility] WBC (Bld) [#/Vol] 7.40 10*3/uL 3.9-10.3 [facility] Otheron 05-11-2019 Erythrocyte distribution width (RBC) [Ratio] 12.10 % 11.5-15.5 [facility] Immature granulocytes (Bld) [#/Vol] 0.030 10*3/uL 0.00-0.06 [facility] Immature granulocytes/100 WBC (Bld) 0.40 % 0.0-0.5 [facility] MCHC (RBC) [Mass/Vol] 34.10 g/dL 32.0-36.0 [facility] Platelet mean volume (Bld) [Entitic vol] 11.10 fL 8.3-11.5 [facility] COMMENT [facility] <9.0 0.0-8.9 [facility] 303.0 0.0-17.9 [facility] <36.0 0.0-35.9 [facility] 38.9 0.0-17.9 [facility] Thyroidon 05-11-2019 TSH Qn 1.96 m[IU]/L 0.50-4.00 [facility] [employer]Targeter Basic Metabolic Profon 04-20 (cont.) Normal [facility] Comment on above: Result Comment: Aver age GFR for 20-29 years old: 116 mL/min/1.73sq mChronic Kidney Disease: <60 mL/min/1.73sq mKidney failure: <15 mL/min/1.73sq meGFR calculated using average adult body mass. Additional eGFR calculator available at:http://www.[employer]/multiple_crcl_2011.htm Performed By: #### B MP, CBC ####[address] [place] [address] Anion gap 3 molar conc 11 mmol/L Normal 9-17 [facility] Comment on above: Performed By: #### B MP, CBC ####[address] [place] [address] BUN/CRE Ratio 18 Normal 9-20 [facility] Comment on above: Performed By: #### B MP, CBC ####[address] [place] [address] Calcium mass conc 9.2 mg/dL Normal 8.6-10.4 [facility] Comment on above: Performed By: #### B MP, CBC ####[address] [place] [address] Chloride molar conc 102 mmol/L Normal 98-107 [facility] Comment on above: Performed By: #### B MP, CBC ####[address] [place] [address] CO2 molar conc 26 mmol/L Normal 20-31 [facility] Comment on above: Performed By: #### B MP, CBC ####[address] [place] [address] Creatinine mass conc 0.65 mg/dL Normal 0.50-0.90 [facility] Comment on above: Performed By: #### B MP, CBC ####[address] [place] [address] GFR, Amer >60 Normal >60 [facility] Comment on above: Performed By: #### B MP, CBC ####[address] [place] [address] GFR,non Amer >60 Normal >60 [facility] Comment on above: Performed By: #### B MP, CBC ####[address] [place] [address] Glucose mass conc 89 mg/dL Normal 70-99 [facility] Comment on above: Performed By: #### B MP, CBC ####[address] [place] [address] Potassium molar conc 3.8 mmol/L Normal 3.7-5.3 [facility] Comment on above: Performed By: #### B MP, CBC ####[address] [place] [address] Sodium molar conc 139 mmol/L Normal 135-144 [facility] Comment on above: Performed By: #### B MP, CBC ####[address] [place] [address] Staging: Normal [facility] Comment on above: Result Comment: Stag e 1: Some kidney damage normal GFRStage 2: Mild kidney damage GFR 60-89Stage 3: Moderate kidney damage GFR 30-59Stage 4: Severe kidney damage GFR 15-29Stage 5: Severe kidney damage GFR <15ESRD - chronic treatment by dialysis or transplant Performed By: #### B MP, CBC ####[address] [place] [address] Urea nitrogen mass conc 12 mg/dL Normal 6-20 [facility] Comment on above: Performed By: #### B MP, CBC ####[address] [place] [address] CBCon 04-20-2018 Erythrocyte distribution width Auto Ratio (RBC) 12.1 % Normal 11.8-14.4 [facility] Comment on above: Performed By: #### B MP, CBC ####[address] [place] [address] Hematocrit Auto Volume Fraction (Bld) 42.6 % Normal 36.3-47.1 [facility] Comment on above: Performed By: #### B MP, CBC ####[address] [place] [address] Hemoglobin mass conc (Bld) 14.7 g/dL Normal 11.9-15.1 [facility] Comment on above: Performed By: #### B MP, CBC ####[address] [place] [address] MCH Auto Entitic mass (RBC) 30.2 pg Normal 25.2-33.5 [facility] Comment on above: Performed By: #### B MP, CBC ####[address] [place] [address] MCHC Auto mass conc (RBC) 34.5 g/dL Normal 28.4-34.8 [facility] Comment on above: Performed By: #### B MP, CBC ####[address] [place] [address] MCV Auto Entitic volume (RBC) 87.7 fL Normal 82.6-102.9 [facility] Comment on above: Performed By: #### B MP, CBC ####[address] [place] [address] NRBC Automated 0.0 per 100 WBC Normal 0.0 [facility] Comment on above: Performed By: #### B MP, CBC ####[address] [place] [address] Platelet mean volume Auto Entitic volume (Bld) 10.8 fL Normal 8.1-13.5 [facility] Comment on above: Performed By: #### B MP, CBC ####[address] [place] [address] Platelets Auto #/vol (Bld) 142 10*3/uL Normal 138-453 [facility] Comment on above: Performed By: #### B MP, CBC ####[address] [place] [address] RBC Auto #/vol (Bld) 4.86 10*6/uL Normal 3.95-5.11 [facility] Comment on above: Performed By: #### B MP, CBC ####[address] [place] [address] WBC Auto #/vol (Bld) 6.2 10*3/uL Normal 4.5-13.5 [facility] Comment on above: Performed By: #### B MP, CBC ####[address] [place] [address] HCG, ,Urineon 04-20 HCG.beta subunit ( test) Ql (U) Negative Normal NEG [facility] Comment on above: Result Comment: Spec imens with hCG levels near the threshold of the test (25 mIU/mL) may give a negative or indeterminate result. In such cases, another test should be performed with a new specimen in 48-72 hours. If early is suspected clinically in this setting, correlation with quantitative serum b-hCG level is suggested.[employer] [facility] has confirmed the use of plasma for this test. This has not been cleared or approved by the U.S. Food and Drug Administration. The FDA has determined that such clearance is not necessary. Performed By: #### U HCG ####[address] [place] [address] UA w/Reflex Cultureon 2017 Acetoacetic Acid,Ur Negative Normal NEG [facility] Comment on above: Performed By: #### U AX UMICAO ####[address] [place] [address] Bilirubin, SemiQt,Ur Negative Normal NEG [facility] Comment on above: Performed By: #### U AX UMICAO ####[address] [place] [address] Color YELLOW Normal YEL [facility] Comment on above: Performed By: #### U PALOMO UMICAO ####[address] [place] [address] Glucose,Semi-qnt,Ur Negative Normal [facility] Comment on above: Performed By: #### Tonja CULVER UMICAO ####[address] [place] [address] Hemoglobin, Ur Negative Normal NEG [facility] Comment on above: Performed By: #### Tonja CULVER UMICAO ####[address] [place] [address] Leuckocyte Esterase Negative Normal [facility] Comment on above: Performed By: #### U PALOMO UMICAO ####[address] [place] [address] Nitrite,Ur Negative Normal [facility] Comment on above: Performed By: #### U AX UMICAO ####[address] [place] [address] PH,Ur 6.0 Normal 5.0-9.0 [facility] Comment on above: Performed By: #### U AX UMICAO ####[address] [place] [address] Protein, Semi-qnt,Ur Negative Normal NEG [facility] Comment on above: Performed By: #### U AX, UMICAO ####[address] [place] [address] Spec. [place],Ur 1.025 High 1.010-1.020 [facility] Comment on above: Performed By: #### U AX, UMICAO ####[address] [place] [address] Turbidity CLEAR Normal CLEAR [facility] Comment on above: Performed By: #### U AX, UMICAO ####[address] [place] [address] Urobilinogen,Ur Normal Normal NORM [facility] Comment on above: Performed By: #### U AX, UMICAO ####[address] [place] [address] Comment NOT REPORTED Normal [facility] Comment on above: Performed By: #### U AX, UMICAO ####[address] [place] [address] Urinalysis,Microon 8 ----- Normal [facility] Comment on above: Performed By: #### U AX, UMICAO ####[address] [place] [address] Bacteria 1+ Abnormal NONE [facility] Comment on above: Performed By: #### U AX, UMICAO ####[address] [place] [address] Epithelial cells 2 TO 5 Normal 0-25 [facility] Comment on above: Performed By: #### U AX, UMICAO ####[address] [place] [address] RBC Test strip #/vol (U) None Normal 0-2 [facility] Comment on above: Performed By: #### U AX, UMICAO ####[address] [place] [address] Urine WBC's 0 TO 2 Normal 0-5 [facility] Comment on above: Performed By: #### U AX, UMICAO ####[address] [place] [address] Amorphous Sediment NOT REPORTED Normal NONE [facility] Comment on above: Performed By: #### U AX, UMICAO ####[address] [place] [address] Casts NOT REPORTED Normal [facility] Comment on above: Performed By: #### U AX, UMICAO ####[address] [place] [address] Crystals NOT REPORTED Normal NONE [facility] Comment on above: Performed By: #### U AX, UMICAO ####[address] [place] [address] Epithelial, Renal NOT REPORTED Normal 0 [facility] Comment on above: Performed By: #### U AX, UMICAO ####[address] [place] [address] Mucus Strands NOT REPORTED Normal NONE [facility] Comment on above: Performed By: #### U AX, UMICAO ####[address] [place] [address] Other Observations NOT REPORTED Normal NREQ [facility] Comment on above: Performed By: #### U AX, UMICAO ####[address] [place] [address] Trichomonas NOT REPORTED Normal NONE [facility] Comment on above: Performed By: #### U AX, UMICAO ####[address] [place] [address] Yeast NOT REPORTED Normal NONE [facility] Comment on above: Performed By: #### U AX, UMICAO ####[facility] [place] [address] XR LUMBAR SPINE (2-3 VIEWS)o n [...] by:RIVER Jassoigned by:Phil Messer MD04/20/18inal result Normal [facility] Otheron 03-08-2018 Negative Tag & See Otheron 02-03-2018 Negative Tag & See Otheron 01-30-2018 Negative Tag & See [facility]acon 12-28-2017 Cholesterol [Mass/Vol] 156.0 mg/dL 0-200 Tag & See Cholesterol in HDL [Mass/Vol] 54.0 mg/dL 50-100 Tag & See Cholesterol in LDL [Mass/Vol] 79.0 mg/dL 0-130 Tag & See Triglyceride [Mass/Vol] 116.0 mg/dL 30-150 Tag & See Metabolic Panelon 12-28-2017 Albumin [Mass/Vol] 4.70 g/dL 3.7-4.5 [facility] [place] ALP [Catalytic activity/Vol] 83.0 U/L 31-155 Tag & See ALT [Catalytic activity/Vol] 15.0 U/L 0-50 [facility] AST [Catalytic activity/Vol] 19.0 U/L 0-40 Tag & See Bilirubin [Mass/Vol] 0.70 mg/dL 0.0-1.0 [facility] [place] Protein [Mass/Vol] 7.80 g/dL 6.3-7.9 [facility] [place] Otheron 12-28-2017 Albumin/Globulin [Mass ratio] 1.5 {ratio} 1.0-2.4 [facility] Cholesterol in VLDL [Mass/Vol] 23.0 mg/dL 0-39 [facility] Cholesterol.total/Cho lesterol in HDL [Mass ratio] 3 {ratio} Tag & See Negative [facility] CBCon 07-28-2017 Erythrocyte distribution width Auto Ratio (RBC) 11.8 % Normal 11.8-14.4 [facility] Comment on above: Performed By: #### C SEN, CP ####[address] [place] [address](178) Hematocrit Auto Volume Fraction (Bld) 41.2 % Normal 36.3-47.1 [facility] Comment on above: Performed By: #### C SEN, CP ####[facility] [place] [address] Hemoglobin mass conc (Bld) 14.1 g/dL Normal 11.9-15.1 [facility] Comment on above: Performed By: #### C SEN, CP ####[address] [place] [address](980 MCH Auto Entitic mass (RBC) 28.5 pg Normal 25.2-33.5 [facility] Comment on above: Performed By: #### C BC, CP ####[address] [place] [address] MCHC Auto mass conc (RBC) 34.2 g/dL Normal 28.4-34.8 [facility] Comment on above: Performed By: #### C BC, CP ####[address] [place] [address] MCV Auto Entitic volume (RBC) 83.2 fL Normal 82.6-102.9 [facility] Comment on above: Performed By: #### C BC, CP ####[address] [place] [address] NRBC Automated 0.0 per 100 WBC Normal 0.0 [facility] Comment on above: Result Comment: Perf ormed at [address] [place] [address] Performed By: #### C BC, CP ####[address] [place] [address] Platelet mean volume Auto Entitic volume (Bld) 9.9 fL Normal 8.1-13.5 [facility] Comment on above: Performed By: #### C BC, CP ####[address] [place] [address] Platelets Auto #/vol (Bld) 230 10*3/uL Normal 138-453 [facility] Comment on above: Performed By: #### C BC, CP ####[address] [place] [address] RBC Auto #/vol (Bld) 4.95 10*6/uL Normal 3.95-5.11 [facility] Comment on above: Performed By: #### C BC, CP ####[address] [place] [address] WBC Auto #/vol (Bld) 11.8 10*3/uL Normal 4.5-13.5 [facility] Comment on above: Performed By: #### C SEN, CP ####[address] [place] [address] Comp Metabolic Profon 2017 (cont.) Normal [facility] Comment on above: Result Comment: Aver age GFR for 20-29 years old: 116 mL/min/1.73sq mChronic Kidney Disease: <60 mL/min/1.73sq mKidney failure: <15 mL/min/1.73sq meGFR calculated using average adult body mass. Additional eGFR calculator available at:http://www.[employer]/multiple_crcl_2011.htm Performed By: #### C SEN, CP ####[address] [place] [address] Albumin mass conc 4.5 g/dL Normal 3.5-5.2 [facility] Comment on above: Performed By: #### C SEN, CP ####[address] [place] [address] Albumin/Globulin mass ratio 1.3 {ratio} Normal 1.0-2.5 [facility] Comment on above: Performed By: #### C SEN, CP ####[address] [place] [address] Alkaline Phos 81 U/L Normal 35-104 [facility] Comment on above: Performed By: #### C SEN, CP ####[address] [place] [address] ALT enzyme act/vol 23 U/L Normal 5-33 [facility] Comment on above: Performed By: #### C BC, CP ####[address] [place] [address] Anion gap 3 molar conc 13 mmol/L Normal 9-17 [facility] Comment on above: Performed By: #### C BC, CP ####[address] [place] [address] AST enzyme act/vol 23 U/L Normal <32 [facility] Comment on above: Performed By: #### C BC, CP ####[address] [place] [address] Bilirubin Ql (U) 0.23 mg/dL Low 0.3-1.2 [facility] Comment on above: Performed By: #### C BC, CP ####[address] [place] [address] BUN/CRE Ratio 17 Normal 9-20 [facility] Comment on above: Performed By: #### C BC, CP ####[address] [place] [address] Calcium mass conc 9.5 mg/dL Normal 8.6-10.4 [facility] Comment on above: Performed By: #### C BC, CP ####[address] [place] [address] Chloride molar conc 101 mmol/L Normal 98-107 [facility] Comment on above: Performed By: #### C BC, CP ####[address] [place] [address] CO2 molar conc 23 mmol/L Normal 20-31 [facility] Comment on above: Performed By: #### C BC, CP ####[address] [place] [address] Creatinine mass conc 0.69 mg/dL Normal 0.50-0.90 [facility] Comment on above: Performed By: #### C BC, CP ####[address] [place] [address] GFR, Amer >60 Normal >60 [facility] Comment on above: Performed By: #### C BC, CP ####[address] [place] [address] GFR,non Amer >60 Normal >60 [facility] Comment on above: Performed By: #### C BC, CP ####[address] [place] [address] Glucose mass conc 99 mg/dL Normal 70-99 [facility] Comment on above: Performed By: #### C BC, CP ####[address] [place] [address] Potassium molar conc 3.8 mmol/L Normal 3.7-5.3 [facility] Comment on above: Performed By: #### C BC, CP ####[address] [place] [address] Protein mass conc 8.0 g/dL Normal 6.4-8.3 [facility] Comment on above: Performed By: #### C BC, CP ####[address] [place] [address] Sodium molar conc 137 mmol/L Normal 135-144 [facility] Comment on above: Performed By: #### C BC, CP ####[address] [place] [address] Staging: Normal [facility] Comment on above: Result Comment: Stag e 1: Some kidney damage normal GFRStage 2: Mild kidney damage GFR 60-89Stage 3: Moderate kidney damage GFR 30-59Stage 4: Severe kidney damage GFR 15-29Stage 5: Severe kidney damage GFR <15ESRD - chronic treatment by dialysis or transplantPerformed at [address] [place] [address] Performed By: #### C BC, CP ####[address] [place] [address] Urea nitrogen mass conc 12 mg/dL Normal 6-20 [facility] Comment on above: Performed By: #### C BC, CP ####[address] [place] [address] HCG, ,Urineon 07-28 HCG.beta subunit ( test) Ql (U) Negative Normal NEG [facility] Comment on above: Result Comment: Spec imens with hCG levels near the threshold of the test (25 mIU/mL) may give a negative or indeterminate result. In such cases, another test should be performed with a new specimen in 48-72 hours. If early is suspected clinically in this setting, correlation with quantitative serum b-hCG level is suggested.[facility] has confirmed the use of plasma for this test. This has not been cleared or approved by the U.S. Food and Drug Administration. The FDA has determined that such clearance is not necessary.Performed at [address] [place] [address] Performed By: #### U HCG, UA ####[address] [place] [address] Urinalysis, Routineon 2017 Acetoacetic Acid,Ur Negative Normal NEG [facility] Comment on above: Performed By: #### U HCG, UA ####[address] [place] [address] Bilirubin, SemiQt,Ur Negative Normal NEG [facility] Comment on above: Performed By: #### U HCG, UA ####[address] [place] [address] Color YELLOW Normal YEL [facility] Comment on above: Performed By: #### U HCG, UA ####[address] [place] [address] Glucose,Semi-qnt,Ur Negative Normal NEG [facility] Comment on above: Performed By: #### U HCG, UA ####[address] [place] [address] Hemoglobin, Ur Negative Normal NEG [facility] Comment on above: Performed By: #### U HCG, UA ####[address] [place] [address] Leuckocyte Esterase Negative Normal NEG [facility] Comment on above: Result Comment: Perf ormed at [address] [place] [address] Performed By: #### U HCG, UA ####[address] [place] [address] Nitrite,Ur Negative Normal NEG [facility] Comment on above: Performed By: #### U HCG, UA ####[address] [place] [address] PH,Ur 6.0 Normal 5.0-9.0 [facility] Comment on above: Performed By: #### U HCG, UA ####[address] [place] [address] Protein mass conc Negative Normal NEG [facility] Comment on above: Performed By: #### U HCG, UA ####[address] [place] [address] Spec. Goodrich,Ur 1.025 High 1.010-1.020 [facility] Comment on above: Performed By: #### U HCG, UA ####[address] [place] [address] Turbidity CLEAR Normal CLEAR [facility] Comment on above: Performed By: #### U HCG, UA ####[address] [place] [address] Urobilinogen,Ur Normal Normal NORM [facility] Comment on above: Performed By: #### U HCG, UA ####[address] [place] [address] Comment NOT REPORTED Normal [facility] Comment on above: Performed By: #### U HCG, UA ####[address] [place] [address] [facility] 06-07-2016 Cholesterol mass conc 175.0 mg/dL 0-200 Bl [place] Triglyceride mass conc 58.0 mg/dL 30-150 [facility] Hematologyon 06-07-2016 Basophils #/vol (Bld) 0.0 10*3/uL 0.0-0.1 [facility] Basophils/100 WBC (Bld) 0.30 % 0.0-1.0 [facility] Eosinophils #/vol (Bld) 0.10 10*3/uL 0.0-0.5 [facility] Eosinophils/100 WBC (Bld) 1.80 % 0.0-7.0 [facility] Hematocrit Volume Fraction (Bld) 40.50 % 35.7-47.1 [facility] Hemoglobin mass conc (Bld) 13.60 g/dL 11.9-15.7 [facility] Lymphocytes #/vol (Bld) 3.40 10*3/uL 0.9-3.1 [facility] Lymphocytes/100 WBC (Bld) 41.0 % 28.0-42.0 [facility] MCH Entitic mass (RBC) 29.60 pg 23.2-33.3 [facility] MCV Entitic volume (RBC) 88.40 fL 82.0-98.4 [facility] Monocytes #/vol (Bld) 0.60 10*3/uL 0.3-1.0 B [facility] Monocytes/100 WBC (Bld) 7.40 % 4.0-12.0 [facility] [employer] [facility] Neutrophils #/vol (Bld) 4.20 10*3/uL 1.8-7.9 [facility] [employer] [facility] [employer] Neutrophils/100 WBC (Bld) 49.50 % 45.6-68.4 [facility] [employer] [facility] Platelets #/vol (Bld) 225.0 10*3/uL 150-400 [facility] [employer] [facility] RBC #/vol (Bld) 4.580 10*6/uL 3.72-5.24 [facility] [employer] [facility] WBC #/vol (Bld) 8.30 10*3/uL 3.9-10.3 [facility] Metabolic Panelon 06-07-2016 Albumin mass conc 4.40 g/dL 3.7-4.5 [facility] [place] ALP enzyme act/vol 77.0 U/L 31-155 [facility] [employer] [facility] ALT enzyme act/vol 17.0 U/L 0-50 [facility] [employer] [facility] AST enzyme act/vol 21.0 U/L 0-40 [facility] [employer] [facility] Bilirubin mass conc 0.40 mg/dL 0.0-1.0 [facility] Protein mass conc 7.40 g/dL 6.3-7.9 [facility] Otheron 06-07-2016 Albumin/Globulin mass ratio 1.5 {ratio} 1.0-2.4 [facility] [employer] [facility] Erythrocyte distribution width Ratio (RBC) 11.80 % 11.5-15.5 [facility] MCHC mass conc (RBC) 33.50 g/dL 32.0-36.0 [facility] Platelet mean volume Entitic volume (Bld) 9.0 fL 7.4-10.4 [facility] Negative [facility] Otheron 04-23-2016 Negative [place] Otheron 03-19-2016 Negative [place] [facility] 02-12-2016 Cholesterol mass conc 175.0 mg/dL 0-200 Bl [facility] Triglyceride mass conc 59.0 mg/dL 30-150 [facility] Hematologyon 02-12-2016 Basophils #/vol (Bld) 0.10 10*3/uL 0.0-0.[address] [facility] Basophils/100 WBC (Bld) 0.90 % 0.0-1.0 [place] Eosinophils #/vol (Bld) 0.10 10*3/uL 0.0-0.5 [facility] [employer] [facility] Eosinophils/100 WBC (Bld) 1.70 % 0.0-7.0 [facility] Hematocrit Volume Fraction (Bld) 41.60 % 35.7-47.1 [place] Hemoglobin mass conc (Bld) 14.0 g/dL 11.9-15.7 [place] Lymphocytes #/vol (Bld) 2.30 10*3/uL 0.9-3.1 [facility] Lymphocytes/100 WBC (Bld) 36.10 % 28.0-42.0 [facility] [employer] [facility] MCH Entitic mass (RBC) 29.40 pg 23.2-33.3 [facility] MCV Entitic volume (RBC) 87.60 fL 82.0-98.4 [facility] Monocytes #/vol (Bld) 0.50 10*3/uL 0.3-1.[address] [facility] [employer] [facility] Monocytes/100 WBC (Bld) 7.20 % 4.0-12.0 [facility] Neutrophils #/vol (Bld) 3.30 10*3/uL 1.8-7.9 [facility] [employer] [facility] Neutrophils/100 WBC (Bld) 54.10 % 45.6-68.4 [facility] [employer] [facility] Platelets #/vol (Bld) 180.0 10*3/uL 150-400 [facility] RBC #/vol (Bld) 4.750 10*6/uL 3.72-5.24 [facility] [employer] [facility] WBC #/vol (Bld) 6.30 10*3/uL 3.9-10.3 [facility] [employer] [facility] Metabolic Panelon 02-12-2016 Albumin mass conc 4.50 g/dL 3.7-4.5 [facility] [employer] [facility] ALP enzyme act/vol 79.0 U/L 31-155 [facility] [employer] [facility] ALT enzyme act/vol 21.0 U/L 0-50 [facility] [employer] [facility] AST enzyme act/vol 22.0 U/L 0-40 [facility] [place] Bilirubin mass conc 0.40 mg/dL 0.0-1.0 [facility] [place] Protein mass conc 7.0 g/dL 6.3-7.9 [facility] [place] Otheron 02-12-2016 Albumin/Globulin mass ratio 1.8 {ratio} 1.0-2.4 [place] [place] Erythrocyte distribution width Ratio (RBC) 12.10 % 11.5-15.5 [place] MCHC mass conc (RBC) 33.60 g/dL 32.0-36.0 [facility] [place] Platelet mean volume Entitic volume (Bld) 9.70 fL 7.4-10.4 [place] Negative [place] Vital Signs Date Time Vital Sign Value Performing Clinician Facility 05-28-2024 13:28-0500 Body mass index (BMI) [Ratio] 22.58 kg/m2 Cheryl MARIE Work Phone: [facility] 05-28-2024 13:28-0500 Body weight 54.2 kg Cheryl MARIE Work Phone: [facility] 05-28-2024 13:28-0500 Diastolic blood pressure 60 mm[Hg] Cheryl MARIE Work Phone: [facility] 05-28-2024 13:28-0500 Systolic blood pressure 102 mm[Hg] Cheryl MARIE Work Phone: [facility] 05-18-2024 10:28-0500 Body height 154.94 cm [facility] 05-18-2024 10:28-0500 Body mass index (BMI) [Ratio] 21.8 kg/m2 [facility] 05-18-2024 10:28-0500 Body temperature 98 [degF] [facility] 05-18-2024 10:28050 Body weight 52.33 kg [facility] 05-18-2024 10:28-050 Diastolic blood pressure 66 mm[Hg] [facility] 05-18-2024 10:28-050 Heart rate 89 /min [facility] 05-18-2024 10:28-050 SaO2% (BldA) [Mass fraction] 99 % [facility] 05-18-2024 10:28-050 Systolic blood pressure 104 mm[Hg] [facility] 04-30-2024 10:13-0500 Body mass index (BMI) [Ratio] 21.73 kg/m2 Eleazar Vijaya DO Work Phone: [facility] 04-30-2024 10:13050 Body weight 52.16 kg Eleazar Vijaya DO Work Phone: [facility] 04-30-2024 10:13-0500 Diastolic blood pressure 64 mm[Hg] Eleazar Vijaya DO Work Phone: [facility] 04-30-2024 10:13-0500 Systolic blood pressure 106 mm[Hg] Eleazar Vijaya DO Work Phone: [facility] 03-23-2024 10:10-0500 Body mass index (BMI) [Ratio] 20.86 kg/m2 Nom Nurse [facility] 03-23-2024 10:10-0500 Body weight 50.08 kg [facility] Nurse [facility] 03-23-2024 10:10-0500 Diastolic blood pressure 60 mm[Hg] [facility] Nurse [facility] 03-23-2024 10:10-0500 Systolic blood pressure 110 mm[Hg] Nom Nurse [facility] 03-14-2024 13:53-0500 Body mass index (BMI) [Ratio] 20.6 kg/m2 Eleazar Vijaya DO Work Phone: [facility] 03-14-2024 13:53-0500 Body weight 49.44 kg Eleazar Vijaya DO Work Phone: [facility] 03-14-2024 13:53-0500 Diastolic blood pressure 72 mm[Hg] Eleazar Vijaya DO Work Phone: [facility] 03-14-2024 13:53-0500 Systolic blood pressure 110 mm[Hg] Eleazar Vijaya DO Work Phone: [facility] 02-08-2024 13:21-0400 Body height 154.9 cm Eleazar Vijaya DO Work Phone: [facility] 02-08-2024 13:21-0400 Body mass index (BMI) [Ratio] 23.05 kg/m2 Eleazar Vijaya DO Work Phone: [facility] 02-08-2024 13:21-0400 Body weight 55.34 kg Eleazar Vijaya DO Work Phone: [facility] 02-08-2024 13:21-0400 Diastolic blood pressure 64 mm[Hg] Eleazar Vijaya DO Work Phone: [facility] 02-08-2024 13:21-0400 Systolic blood pressure 102 mm[Hg] Eleazar Vijaya DO Work Phone: [facility] 02-02-2024 12:39-0400 Body height 154.94 cm [facility] 02-02-2024 12:39-0400 Body mass index (BMI) [Ratio] 22.4 kg/m2 [facility] 02-02-2024 12:39-0400 Body temperature 98.3 [degF] [facility] 02-02-2024 12:39-0400 Body weight 54 kg [facility] 02-02-2024 12:39-0400 Diastolic blood pressure 64 mm[Hg] [facility] 02-02-2024 12:39-0400 Heart rate 82 /min [facility] 02-02-2024 12:39-0400 Respiratory rate 16 /min [facility] 02-02-2024 12:39-0400 SaO2% (BldA) [Mass fraction] 98 % [facility] 02-02-2024 12:39-0400 Systolic blood pressure 108 mm[Hg] [facility] 01-24-2024 11:38-0400 Body height 154.94 cm [facility] 01-24-2024 11:38-0400 Body mass index (BMI) [Ratio] 22.6 kg/m2 [facility] 01-24-2024 11:38-0400 Body temperature 96.1 [degF] [facility] 01-24-2024 11:38-0400 Body weight 54.43 kg [facility] 01-24-2024 11:38-0400 Diastolic blood pressure 60 mm[Hg] [facility] 01-24-2024 11:38-0400 Heart rate 75 /min [facility] 01-24-2024 11:38-0400 SaO2% (BldA) [Mass fraction] 98 % [facility] 01-24-2024 11:38-0400 Systolic blood pressure 114 mm[Hg] [facility] 01-03-2024 11:26-0400 Body height 154.94 cm [facility] 01-03-2024 11:26-0400 Body mass index (BMI) [Ratio] 23.2 kg/m2 [facility] 01-03-2024 11:26-0400 Body temperature 97.8 [degF] [facility] 01-03-2024 11:26-0400 Body weight 55.79 kg [facility] 01-03-2024 11:26-0400 Diastolic blood pressure 68 mm[Hg] [facility] 01-03-2024 11:26-0400 Heart rate 90 /min [facility] 01-03-2024 11:26-0400 SaO2% (BldA) [Mass fraction] 98 % [facility] 01-03-2024 11:26-0400 Systolic blood pressure 110 mm[Hg] [facility] 07-21-2023 10:20-0400 Body height 154.94 cm [facility] 07-21-2023 10:20-0400 Body mass index (BMI) [Ratio] 27.8 kg/m2 [facility] 07-21-2023 10:20-0400 Body weight 66.67 kg [facility] 07-21-2023 10:20-0400 Diastolic blood pressure 78 mm[Hg] [facility] 07-21-2023 10:20-0400 Heart rate 61 /min [facility] 07-21-2023 10:20-0400 SaO2% (BldA) [Mass fraction] 99 % [facility] 07-21-2023 10:20-0400 Systolic blood pressure 112 mm[Hg] [facility] 03-26-2023 11:30-0500 Body height 154.94 cm Jodie Portillo Other [employer] [facility] [employer] Other 03-26-2023 11:30-0500 Body mass index (BMI) [Ratio] 27.96 kg/m2 Jodie Portillo Other [facility] Other 03-26-2023 11:30-0500 Body temperature 98.8 [degF] Jodie Portillo Other [facility] Other 03-26-2023 11:30-0500 Body weight 67.13 kg Jodie Portillo Other [facility] Other 03-26-2023 11:30-0500 Diastolic blood pressure 76 mm[Hg] Jodie Portillo Other [facility] Other 03-26-2023 11:30-0500 Respiratory rate 18 /min Jodie Portillo Other [facility] Other 03-26-2023 11:30-0500 SaO2% (BldA) [Mass fraction] 98 % Jodie Portillo Other [facility] Other 03-26-2023 11:30-0500 Systolic blood pressure 118 mm[Hg] Jodie Portillo Other [facility] Other 10-02-2022 12:25-0400 Body height 154.94 cm Deidra Jimenez Other [facility] Other 10-02-2022 12:25-0400 Body mass index (BMI) [Ratio] 27.43 kg/m2 Deidra Jimenez Other [facility] Other 10-02-2022 12:25-0400 Body temperature 97.7 [degF] Deidra Jimenez Other [facility] Other 10-02-2022 12:25-0400 Body weight 65.86 kg Deidra Jimenez Other [facility] Other 10-02-2022 12:25-0400 Respiratory rate 18 /min Deidra Jimenez Other [facility] Other 10-02-2022 12:25-0400 SaO2% (BldA) [Mass fraction] 97 % Deidra Jimenez Other [facility] Other 05-21-2019 10:42-0500 BMI (Body Mass Index) 23.41 kg/m2 Lyric Pérez Rene [employer] 05-21-2019 10:42-0500 Body Temperature 98.8 [degF] Lyric Rene [facility] [employer] [facility] 05-21-2019 10:42-0500 Body weight 58.06 kg Lyric Pérez Rene [employer] 05-21-2019 10:42-0500 BP Diastolic 68 mm[Hg] Lyric Pérez [place] [employer] [facility] 05-21-2019 10:42-0500 BP Systolic 94 mm[Hg] Lyric Beto Rene [place] 05-21-2019 10:42-0500 BSA (Body Surface Area) 1.59 m2 Lyric Rene [place] 05-21-2019 10:42-0500 Height 157.48 cm Lyric [facility] 05-21-2019 10:42-0500 Pulse (Heart Rate) 90 /min Lyric Villarreal eusebio [employer] 05-11-2019 14:48-0500 BMI (Body Mass Index) 22.95 kg/m2 Hima Rene [place] 05-11-2019 14:48-0500 Body Temperature 98.8 [degF] Hima Faustinncjose elias [facility] 05-11-2019 14:48-0500 Body weight 56.93 kg Hima Faustinncjose elias Clemente [employer] 05-11-2019 14:48-0500 BP Diastolic 66 mm[Hg] Hima Faustinncjose elias Clemente [employer] 05-11-2019 14:48-0500 BP Systolic 110 mm[Hg] Hima Clemente [employer] 05-11-2019 14:48-0500 BSA (Body Surface Area) 1.58 m2 [facility]ima Rene [place] 05-11-2019 14:48-0500 Height 157.48 cm Hima Faustinncjose elias Clemente [employer] 05-11-2019 14:48-0500 Pulse (Heart Rate) 72 /min Hima Rene Nani lowry [employer] 04-27-2019 15:18-0500 BMI (Body Mass Index) 23.52 kg/m2 Lyric [facility] 04-27-2019 15:18-0500 Body Temperature 98.9 [degF] Lyric Clemente [employer] 04-27-2019 15:18-0500 Body weight 56.47 kg Lyric Rene [place] 04-27-2019 15:18-0500 BP Diastolic 60 mm[Hg] Lyric Pérez [facility] 04-27-2019 15:18-0500 BP Systolic 112 mm[Hg] Lyric Pérez [employer] 04-27-2019 15:18-0500 BSA (Body Surface Area) 1.56 m2 Lyric Pérez [employer] 04-27-2019 15:18-0500 Height 154.94 cm Lyric Pérez [employer] 04-27-2019 15:18-0500 Pulse (Heart Rate) 80 /min Lyric [employer] 04-09-2019 13:38-0500 BMI (Body Mass Index) 22.77 kg/m2 Lyric Pérez [employer] See 04-09-2019 13:38-0500 Body Temperature 99.4 [degF] Lyric Rene Clemente [employer] 04-09-2019 13:38-0500 Body weight 54.66 kg Lyric Pérez [facility] 04-09-2019 13:38-0500 BP Diastolic 70 mm[Hg] Lyric Pérez Tag & See 04-09-2019 13:38-0500 BP Systolic 120 mm[Hg] Lyric Pérez Tag & See 04-09-2019 13:38-0500 BSA (Body Surface Area) 1.53 m2 Lyric [employer] 04-09-2019 13:38-0500 Height 154.94 cm Lyric Rene Loopport 04-09-2019 13:38-0500 Pulse (Heart Rate) 82 /min Lyric Villarreal [facility] 02-06-2019 16:41-0400 BMI (Body Mass Index) 22.77 kg/m2 Lyric Pérez Tag [employer] See 02-06-2019 16:41-0400 Body Temperature 98.8 [degF] Lyric Faust[employer] 02-06-2019 16:41-0400 Body weight 54.66 kg Lyric Pérez Tag [facility] See 02-06-2019 16:41-0400 BP Diastolic 70 mm[Hg] Lyric Pérez Tag [facility] See 02-06-2019 16:41-0400 BP Systolic 112 mm[Hg] Lyric Pérez Tag [facility] See 02-06-2019 16:41-0400 BSA (Body Surface Area) 1.53 m2 Lyric Pérez Tag [facility] See 02-06-2019 16:41-0400 Height 154.94 cm Lyric Pérez Tag & See 02-06-2019 16:41-0400 Pulse (Heart Rate) 72 /min Lyric Villarreal [facility] 10-31-2018 16:58-0400 BMI (Body Mass Index) 23.43 kg/m2 Hima KimISVS 10-31-2018 16:58-0400 Body weight 56.25 kg Hima KimCiteeCar 10-31-2018 16:58-0400 BP Diastolic 60 mm[Hg] Hima Camacho [facility] 10-31-2018 16:58-0400 BP Systolic 112 mm[Hg] Hima Camacho [facility] 10-31-2018 16:58-0400 BSA (Body Surface Area) 1.56 m2 Hima Rene Loopport 10-31-2018 16:58-0400 Height 154.94 cm Hima Clemente [facility] 10-31-2018 16:58-0400 Pulse (Heart Rate) 72 /min Hima ma D[facility] 10-31-2018 16:58-0400 Weight 56.25 kg Hima Clemente [facility] 08-28-2018 15:49-0400 BMI (Body Mass Index) 22.67 kg/m2 Hima Rene L[facility] 08-28-2018 15:49-0400 Body Temperature 98.7 [degF] Hima chawla [facility] 08-28-2018 15:49-0400 Body weight 54.43 kg Hima Clemente [employer] 08-28-2018 15:49-0400 BP Diastolic 60 mm[Hg] Hima Clemente [employer] 08-28-2018 15:49-0400 BP Systolic 120 mm[Hg] Hima Clemente [employer] 08-28-2018 15:49-0400 BSA (Body Surface Area) 1.53 m2 Hima Rene [facility] 08-28-2018 15:49-0400 Height 154.94 cm Hmia Clemente [facility] 08-28-2018 15:49-0400 Pulse (Heart Rate) 66 /min Hima Cardoza [facility] [employer] 08-28-2018 15:49-0400 Weight 54.43 kg Hima Clemente [facility] 02-09-2018 12:10-0400 BMI (Body Mass Index) 23.78 kg/m2 Hima Rene [place] 02-09-2018 12:10-0400 Body Temperature 98.1 [degF] Hima Andrade [employer] 02-09-2018 12:10-0400 Body weight 58.97 kg Hima Clemente [facility] 02-09-2018 12:10-0400 BP Diastolic 80 mm[Hg] Hima Clemente [employer] 02-09-2018 12:10-0400 BP Systolic 104 mm[Hg] Hima Clemente [employer] 02-09-2018 12:10-0400 BSA (Body Surface Area) 1.61 m2 Hima Rene [facility] 02-09-2018 12:10-0400 Height 157.48 cm Hima Clemente [employer] 02-09-2018 12:10-0400 Pulse (Heart Rate) 64 /min Hima Cardoza [facility] [employer] 02-09-2018 12:10-0400 Weight 58.97 kg Hima Clemente [employer] 01-11-2018 15:19-0400 BMI (Body Mass Index) 23.32 kg/m2 Hima Rene [facility] 01-11-2018 15:19-0400 Body weight 57.83 kg Hima Clemente [employer] 01-11-2018 15:19-0400 BP Diastolic 68 mm[Hg] Hima Clemente [employer] 01-11-2018 15:19-0400 BP Systolic 106 mm[Hg] Hima Clemente [employer] 01-11-2018 15:19-0400 BSA (Body Surface Area) 1.59 m2 Hima Rene [facility] 01-11-2018 15:19-0400 Height 157.48 cm Hima Clemente [employer] 01-11-2018 15:19-0400 Pulse (Heart Rate) 76 /min Hima ma D[facility] 01-11-2018 15:19-0400 Weight 57.83 kg Hima Clemente [facility] 08-01-2017 09:57-0400 BMI (Body Mass Index) 23.59 kg/m2 Hima Rene [employer] 08-01-2017 09:57-0400 Body weight 58.51 kg Hima Clemente [facility] 08-01-2017 09:57-0400 BP Diastolic 60 mm[Hg] Hima Clemente [employer] 08-01-2017 09:57-0400 BP Systolic 94 mm[Hg] Hima Clemente [employer] 08-01-2017 09:57-0400 BSA (Body Surface Area) 1.6 m2 Hima Rene [facility] 08-01-2017 09:57-0400 Height 157.48 cm Hima Clemente [facility] 08-01-2017 09:57-0400 Pulse (Heart Rate) 80 /min Hima Cardoza [facility] 08-01-2017 09:57-0400 Weight 58.51 kg Hima Rene Rip van Wafels 01-13-2017 12:02-0400 BMI (Body Mass Index) 22.59 kg/m2 Hima Rene [facility] 01-13-2017 12:02-0400 Body weight 56.02 kg Hima Rene Rip [employer]els 01-13-2017 12:02-0400 BP Diastolic 76 mm[Hg] Hima Rene Rip [employer] 01-13-2017 12:02-0400 BP Systolic 122 mm[Hg] Hima Rene Rip [employer] 01-13-2017 12:02-0400 BSA (Body Surface Area) 1.57 m2 Hima Rene L[facility] 01-13-2017 12:02-0400 Height 157.48 cm Hima Rene Rip [employer]els 01-13-2017 12:02-0400 Pulse (Heart Rate) 72 /min Hima Cardoza [facility] 01-13-2017 12:02-0400 Weight 56.02 kg Hima Rene Rip [employer] 10-29-2016 16:57-0400 BMI (Body Mass Index) 22.13 kg/m2 Hima Rene [facility] 10-29-2016 16:57-0400 Body weight 54.89 kg Hima Rene Rip [employer]els 10-29-2016 16:57-0400 BP Diastolic 60 mm[Hg] Hima Clemente [employer] 10-29-2016 16:57-0400 BP Systolic 104 mm[Hg] Hima Camacho [facility] 10-29-2016 16:57-0400 BSA (Body Surface Area) 1.55 m2 Hima Rene Loopport 10-29-2016 16:57-0400 Height 157.48 cm Hima Clemente [employer] 10-29-2016 16:57-0400 Pulse (Heart Rate) 68 /min Hima lowry D[facility] 10-29-2016 16:57-0400 Weight 54.89 kg Hima Clemente [facility] 01-28-2016 17:46-0400 BMI (Body Mass Index) 21.67 kg/m2 Hima Rene Loopport 01-28-2016 17:46-0400 Body weight 53.75 kg Hima Clemente [employer] 01-28-2016 17:46-0400 BP Diastolic 64 mm[Hg] Hima Clemente [employer] 01-28-2016 17:46-0400 BP Systolic 94 mm[Hg] Hima Clemente [employer] 01-28-2016 17:46-0400 BSA (Body Surface Area) 1.53 m2 Hima Rene Loopport 01-28-2016 17:46-0400 Height 157.48 cm Hima Clemente [employer] 01-28-2016 17:46-0400 Pulse (Heart Rate) 64 /min Hima Adrianne Rene Atooma 01-28-2016 17:46-0400 Weight 53.75 kg Hima Rene Rip van Wafels 05-30-2015 16:50-0500 BMI (Body Mass Index) 21.22 kg/m2 Hima Rene Loopport 05-30-2015 16:50-0500 Body Temperature 98 [degF] Hima Rene [facility] 05-30-2015 16:50-0500 Body weight 52.62 kg Hima Rene Rip van Wafels 05-30-2015 16:50-0500 BP Diastolic 64 mm[Hg] Hima Rene Rip van Wafels 05-30-2015 16:50-0500 BP Systolic 90 mm[Hg] Hima Rene Rip van Wafels 05-30-2015 16:50-0500 BSA (Body Surface Area) 1.52 m2 Hima KimISVS 05-30-2015 16:50-0500 Height 157.48 cm Hima Rene Rip van Wafels 05-30-2015 16:50-0500 Pulse (Heart Rate) 92 /min Hima Cardoza [facility] 05-30-2015 16:50-0500 Weight 52.62 kg Hima Rene Rip van Wafels 04-08-2015 16:01-0500 BMI (Body Mass Index) 21.28 kg/m2 Hima Rene Loopport 04-08-2015 16:01-0500 Body Temperature 98.4 [degF] Hima Rene [place] 04-08-2015 16:01-0500 Body weight 51.94 kg [facility] 04-08-2015 16:01-0500 BP Diastolic 84 mm[Hg] Hima Clemente [employer] 04-08-2015 16:01-0500 BP Systolic 118 mm[Hg] [facility]ima [facility] 04-08-2015 16:01-0500 BSA (Body Surface Area) 1.5 m2 Hima Rene Loopport 04-08-2015 16:01-0500 Height 156.21 cm Hima Rene Rip van Wafels 04-08-2015 16:01-0500 Pulse (Heart Rate) 72 /min Hima Cardoza [facility] 04-08-2015 16:01-0500 Weight 51.94 kg [facility]ima [facility] Encounters Encounter Date Encounter Type Care Provider Facility Start: 05-28-2024 End: 05-28-2024 Bamboo flowsheet Cheryl MARIE Work Phone: [facility] Start: 05-28-2024 End: 06-01-2024 Bamboo flowsheet Cheryl MARIE Work Phone: [facility] OB Start: 05-28-2024 End: 06-01-2024 Clinisync Result Encounter Cheryl MARIE Work Phone: [facility] External Department Unsolicited Start: 05-28-2024 End: 05-28-2024 Patient encounter procedure Cheryl MARIE Work Phone: [facility] Healthcare Start: 05-28-2024 End: 05-28-2024 Periodic preventive med est patient 18-39 yrs Cheryl MARIE Work Phone: [facility] OB Comment on above: Screening, , for anatomic survey; STD exposure; Vaginal discharge; Well woman exam with routine gynecological exam; Second trimester ; Nausea and vomiting in Start: 05-28-2024 End: 05-28-2024 ambulatory CHERYL PEREZ Not Available Start: 05-18-2024 End: 05-18-2024 ambulatory [facility] Work Phone: Start: 05-18-2024 End: 05-18-2024 Patient encounter procedure [facility] Work Phone: Start: 04-30-2024 End: 04-30-2024 Bamboo [...] 04-18-2024 End: 04-18-2024 ambulatory Susana Alonzo PA-C Facility:[facility] Start: 04-16-2024 End: 04-16-2024 Clinisync Result Encounter Eleazar Vijaya DO Work Phone: [facility] External Department Unsolicited Start: 04-16-2024 End: 04-16-2024 Clinisync Result Encounter Eleazar Vijaya DO Work Phone: [facility] External Department Unsolicited Start: 04-16-2024 Non-patient / Non-visit [facility] Work Phone: Start: 04-13-2024 [...] Not Available Start: 03-19-2024 Non-patient / Non-visit [facility] Work Phone: Start: 03-17-2024 Non-patient / Non-visit [facility] Work Phone: Start: 03-14-2024 [...] Department Unsolicited Start: 03-08-2024 Non-patient / Non-visit [facility] Work Phone: Start: 03-07-2024 End: 03-07-2024 ambulatory Ana COPPOLA Facility:[facility] Start: 03-02-2024 Non-patient / Non-visit [facility] Work Phone: Start: 02-29-2024 Non-patient / Non-visit [facility] Work Phone: Start: 02-28-2024 Non-patient / Non-visit [facility] Work Phone: Start: 02-28-2024 End: 02-28-2024 Phys/qhp telephone evaluation 5-10 min Eleazar Vijaya DO Work Phone: [facility] Comment on above: Early stage of pregn ana Start: 02-27-2024 Non-patient / Non-visit [facility] Work Phone: Start: 02-21-2024 Non-patient / Non-visit [facility] Work Phone: Start: 02-08-2024 [...] Available Start: 02-02-2024 End: 02-02-2024 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 Jodie Portillo Work Phone: [facility] [place] Work Phone: Start: 02-02-2024 End: 02-02-2024 ambulatory Jodie L Bandar [facility] Work Phone: Start: 02-02-2024 End: 02-02-2024 Patient encounter procedure [facility] Work Phone: Start: 01-24-2024 End: 01-24-2024 ambulatory [facility] Work Phone: Start: 01-24-2024 End: 01-24-2024 Patient encounter procedure [facility] Work Phone: Start: 01-24-2024 End: 01-24-2024 ambulatory Mike Jones Facility:[facility] Start: 01-19-2024 Non-patient / Non-visit [facility] Work Phone: Start: 01-03-2024 End: 01-03-2024 ambulatory [facility] Work Phone: Start: 01-03-2024 End: 01-03-2024 Patient encounter procedure [facility] Work Phone: Start: 08-10-2023 End: 08-10-2023 ambulatory Ana Simmons 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 Facility:[facility] Start: 07-21-2023 End: 07-21-2023 ambulatory [facility] Work Phone: Start: 07-21-2023 End: 07-21-2023 Patient encounter procedure [facility] Work Phone: Start: 06-28-2023 ambulatory Amara Cheung PA-C Facility:[facility] Start: 06-27-2023 End: 06-27-2023 ambulatory Susana Alonzo PA-C Facility:[facility] Start: 06-22-2023 End: 06-22-2023 ambulatory Ana Maryse Simmons 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 Facility:[facility] Start: 03-26-2023 End: 03-26-2023 ambulatory Jodie Portillo Other [facility] Other Start: 03-26-2023 Office outpatient vi sit 15 minutes Jodie Portillo [facility] Start: 10-02-2022 End: 10-02-2022 ambulatory Deidra Jimenez Other [facility] Other Start: 10-02-2022 Office outpatient ne w 20 minutes Deidra Barbara [facility] Start: 05-21-2019 Office outpatient vi sit 15 minutes Lyric Pérez Other [facility] Office Start: 05-11-2019 Lab [facility] [place] Other [facility] Office Start: 05-11-2019 Office outpatient vi sit 15 minutes Lyric Pérez Other [facility] Office Start: 04-27-2019 Office outpatient vi sit 15 minutes Lyric Pérez Other [facility] Office Start: 04-09-2019 Office outpatient vi sit 15 minutes Lyric Pérez Other [facility] Office Start: 02-06-2019 Office outpatient vi sit 15 minutes Lyric Pérez Other [facility] Office Start: 10-31-2018 Routine general medi brad examination at a health care facility [facility]ima Silver [facility] Start: 10-31-2018 Lab [facility] [place] Other [facility] Office Start: 10-31-2018 Office outpatient vi sit 15 minutes Cheryl Dobbins Other [facility] Office Start: 08-28-2018 Lab [facility] [place] Other [facility] Office Start: 08-28-2018 Office outpatient vi sit 15 minutes Cheryl Dobbins Other [facility] Office Start: 04-20-2018 End: 04-20-2018 Emergency department patient visit [facility] Start: 03-08-2018 Lab Enrique Hyltonu yossi Other [facility] Office Start: 03-08-2018 Office outpatient vi sit 15 minutes Vinita José Luis Other [facility] Office Start: 02-09-2018 Office outpatient vi sit 15 minutes Lyric Pérez Other [facility] Office Start: 02-03-2018 End: 02-03-2018 Lab Enrique Ordonez Other [facility] Office Start: 01-30-2018 Lab Enrique Hyltonu gh Other [facility] Office Start: 01-30-2018 Office outpatient vi sit 15 minutes Vinita José Luis Other [facility] Office Start: 01-11-2018 Office outpatient vi sit 15 minutes Lyric Pérez Other [facility] Office Start: 12-28-2017 Office outpatient vi sit 15 minutes Vinita José Luis Other [facility] Office Start: 12-28-2017 Lab Enrique Hyltonu yossi Other [facility] Office Start: 08-01-2017 Office outpatient vi sit 25 minutes Lyric Pérez Other [facility] Office Start: 07-28-2017 End: 07-28-2017 Emergency department patient visit [facility] Start: 01-13-2017 Office outpatient vi sit 15 minutes Rachel Ly Other [facility] Office Start: 10-29-2016 Office outpatient vi sit 15 minutes Rachel Ly Other [facility] Office Start: 06-07-2016 Office outpatient vi sit 15 minutes Enrique José Luis Other [facility] Office Start: 04-23-2016 Office outpatient vi sit 15 minutes Enrique José Luis Other [facility] Office Start: 03-19-2016 Office outpatient vi sit 15 minutes Enrique José Luis Other [facility] Office Start: 02-12-2016 Office outpatient ne w 20 minutes Enrique José Luis Other [facility] Office Start: 01-28-2016 Office outpatient vi sit 15 minutes Lyric Pérez Other [facility] Office Start: 05-30-2015 Office outpatient vi sit 15 minutes Lyric Pérez Other [facility] Office Start: 04-08-2015 Office outpatient ne w 20 minutes Lyric Pérez Other [facility] Office Procedures Date Procedure Procedure Detail Performing Clinician Start: 05-28-2024 Urnls dip stick/tabl et rgnt non-auto w/o micrscp Cheryl MARIE Work Phone: Start: 05-28-2024 IGP,APTIMA HPV,AGE GDLN Cheryl MARIE Work Phone: Start: 04-30-2024 Urnls dip stick/tabl [...] (HTRX) Eleazar Vijaya DO Work Phone: Start: 08-27-2024 Quick Strep (POC) Start: 05-11-2019 Assay of thyroid stimulating hormone tsh Lyric Pérez Start: 05-11-2019 Blood count complete auto&auto difrntl wbc Lyric Pérez Start: 05-11-2019 Doc meds verified w/ pt or re Hima Davy Start: 05-11-2019 EBV Complete Series [place] adalgisa Pérez Start: 04-27-2019 Doc meds verified w/ pt or re Lyric Pérez Start: 04-09-2019 Doc meds verified w/ pt or re Lyric Pérez Start: 02-06-2019 Doc meds verified w/ pt or re Lyric Pérez Start: 10-31-2018 Doc meds verified w/ pt or re Hima Adrianne Start: 10-31-2018 Urnls dip stick/tabl et rgnt auto w/o microscopy Hima Davy Start: 08-28-2018 Ceftriaxone sodium injection Hima Adrianne Start: 08-28-2018 Doc meds verified w/ pt or re Hima Adrianne Start: 08-28-2018 Urnls dip stick/tabl et rgnt auto w/o microscopy Hima Davy Start: 04-20-2018 Radex spine lumbosac ral 2/3 [...] meds verified w/ pt or re Hima Davy Start: 02-03-2018 Urine test visual color cmprsn meths Hima Davy Start: 01-30-2018 Doc meds verified w/ pt or re Hima Davy Start: 01-30-2018 Urine test visual color cmprsn meths Hima Davy Start: 01-11-2018 Doc meds verified w/ pt or re Hima Davy Start: 12-28-2017 Doc meds verified w/ pt or re Hima Adrianne Start: 12-28-2017 Gonadotropin chorion ic qualitative Hima Davy Start: 12-28-2017 Hepatic function panel Hima Davy Start: 12-28-2017 Lipid panel Hima Ri cketts Start: 07-28-2017 CBC TALON CA EDE Start: 07-28-2017 Comprehensive metabo lic 2000 panel - Serum or Plasma TALON CARONE Start: 07-28-2017 , URINE HEATHE R CARONE Start: 07-28-2017 Urinalysis TALON CA EDE Start: 01-13-2017 Doc meds verified w/ pt or re Hima Davy Start: 06-07-2016 Assay of triglycerides Hima Adrianne Start: 06-07-2016 Blood count complete auto&auto difrntl wbc Hima Davy Start: 06-07-2016 Cholesterol serum/wh ole blood total Hima Davy Start: 06-07-2016 Gonadotropin chorion ic qualitative Hima Davy Start: 06-07-2016 Hepatic function panel Hima Davy Start: 04-23-2016 Urine test visual color cmprsn meths Hima Adrianne Start: 03-19-2016 Urine test visual color cmprsn meths Hima Davy Start: 02-12-2016 Assay of triglycerides Hima Davy Start: 02-12-2016 Blood count complete auto&auto difrntl wbc Hima Adrianne Start: 02-12-2016 Cholesterol serum/wh ole blood total Hima Davy Start: 02-12-2016 Gonadotropin chorion ic qualitative Hima Davy Start: 02-12-2016 Hepatic function panel Hima Davy Plan of Treatment Date Care Activity Detail [...] PM EST Routine [facility] [address] [place] [id number] Cheryl Perez PA [address] [place] [address] Arrived [facility] Comment on above: Arrived Start: 04-30-2024 End: 04-30-2024 Patient encounter procedure 04/30/2024 10:10 AM EST Routine [facility] [address] [place] [phone] Eleazar Lilly, [address] [place] [address] 12 weeks gestation of ; Second trimester [facility] Comment on above: 12 weeks gestation o f ; Second trimester Start: 04-23-2024 End: 04-23-2024 Patient encounter procedure 04/23/2024 10:50 AM EST Routine [facility] [address] [place] [phone] Eleazar Lilly, DO [address] [place] [address] [facility] Start: 03-23-2024 End: 03-23-2025 [...] Initial [facility] [address] [place] [id number] [facility] Start: 03-23-2024 End: 03-23-2024 Professional / ancillary services management 03/23/2024 9:30 AM EST Ancillary Procedure [facility] [address] [place] [id number] [facility] Start: 03-14-2024 End: 03-14-2024 Patient encounter procedure 03/14/2024 1:30 PM EST Office Visit [facility] [address] [place] [phone] Eleazar Lilly, DO [address] [place] [address] Arrived [facility] Comment on above: Arrived Start: 02-28-2024 End: 02-28-2024 Patient encounter procedure 02/28/2024 8:10 AM EDT Office Visit [facility] [address] [place] [phone] Eleazar Lilly, DO [address] [place] [address] [facility] Start: 02-08-2024 End: 02-07-2025 SURESWAB(R) ADVANCED VAGINITIS PLUS, TMA SURESWAB(R) ADVANCED VAGINITIS PLUS, TMA Pathology and Cytology Routine Pelvic pain in female Expected: 02/08/2024 (Approximate), Expires: 02/07/2025 [facility] Work Phone: Comment on above: Expected: 02/08/2024 (Approximate), Expires: 02/07/2025 Start: 02-08-2024 End: 02-07-2025 US for US PELVIS-TRANSVAG IF INDICATED Imaging Routine Pelvic pain in female Expected: 02/08/2024 (Approximate), Expires: 02/07/2025 [facility] Comment on above: Expected: 02/08/2024 (Approximate), Expires: 02/07/2025 Start: 02-08-2024 End: 02-08-2024 Patient encounter procedure 02/08/2024 1:20 PM EDT Office Visit [facility] [address] [place] [address] Eleazar Lilly, DO [address] [place] [address] Arrived [facility] Comment on above: Arrived Start: 02-02-2024 [facility] Start: 01-08-2024 Influenza vaccination Influenza Vacc ine (#1) [facility] Start: 05-11-2019 Blood count complete auto&auto difrntl wbc CBC w diff Tag & See Start: 05-11-2019 TSH Qn TSH Tag & See Start: 11-02-2018 Blood count complete automated CBC & PLATELET COUNT; AUTOMATED Tag & See Start: 11-02-2018 Comprehensive metabo lic panel Comprehensive metabolic panel Tag & See Start: 11-02-2018 Gonadotropin chorion ic qualitative SERUM Tag & See Start: 11-02-2018 Hemoglobin A1c/Hemoglobin.total mass fraction (Bld) Hgb A1c Tag & See Start: 11-02-2018 Lipid panel Lipid panel Carlisle Loopport Start: 11-02-2018 Thyrotropin Qn TSH (thyroid stimulating hormone) [facility] Start: 11-02-2018 Urnls dip stick/tabl et rgnt auto w/o microscopy UA [facility] Atopobium vaginae DN A [Presence] in Vaginal fluid by ELDON with probe detection [facility] Bacteria identified in Urine by Culture Urine culture Microbiology Routine Missed menses Ordered: 03/23/2024 [facility] Comment on above: Ordered: 03/23/2024 Bacterial vaginosis associated bacterium 2 DNA [Presence] in Vaginal fluid by ELDON with probe detection [facility] CBC W Auto Different ial panel - Blood CBC and differential Lab Routine Missed menses , unspecified gestational age Ordered: 03/23/2024 [facility] Comment on above: Ordered: 03/23/2024 CHLAMYDIA TRACHOMATI S (GENITO/STI) CHLAMYDIA TRACHOMATIS (GENITO/STI) Lab Routine Pelvic pain in female Ordered: 02/08/2024 [facility] Comment on above: Ordered: 02/08/2024 CHLAMYDIA TRACHOMATI S (GENITO/STI) CHLAMYDIA TRACHOMATIS (GENITO/STI) Lab Routine STD exposure Ordered: 05/28/2024 [facility] Comment on above: Ordered: 05/28/2024 Cytology Cervical or vaginal smear or scraping study Pap Smear Pathology and Cytology Routine Well woman exam with routine gynecological exam Ordered: 05/28/2024 [facility] Comment on above: Ordered: 05/28/2024 Estradiol (E2) [Mass/volume] in Serum or Plasma [facility] Estrogen [Mass/volum e] in Serum or Plasma [facility] Hemoglobin A1c/Hemoglobin.total in Blood Hemoglobin A1c Lab Routine Missed menses , unspecified gestational age Ordered: 03/23/2024 [facility] Comment on above: Ordered: 03/23/2024 Hepatitis B virus surface Ag [Presence] in Serum or Plasma by Immunoassay Hepatitis B surface antigen Lab Routine Missed menses , unspecified gestational age Ordered: 03/23/2024 [facility] Comment on above: Ordered: 03/23/2024 Hepatitis C virus Ab [Presence] in Serum or Plasma by Immunoassay Hepatitis C antibody Lab Routine Missed menses , unspecified gestational age Ordered: 03/23/2024 [facility] Comment on above: Ordered: 03/23/2024 HIV-1/HIV-2 antigen/antibody combination immunoassay HIV-1 and HIV-2 antibodies Lab Routine Missed menses , unspecified gestational age Ordered: 03/23/2024 [facility] Comment on above: Ordered: 03/23/2024 Holter monitor study [facility] Lutropin [Units/volu me] in Serum or Plasma [facility] Megasphaera sp type 1 DNA [Presence] in Vaginal fluid by ELDON with probe detection [facility] Neisseria gonorrhoea e DNA [Presence] in Unspecified specimen by ELDON with probe detection Neisseria gonorrhea DNA probe, direct Lab Routine Pelvic pain in female Ordered: 02/08/2024 [facility] Comment on above: Ordered: 02/08/2024 Neisseria gonorrhoea e DNA [Presence] in Unspecified specimen by ELDON with probe detection Neisseria gonorrhea DNA probe, direct Lab Routine STD exposure Ordered: 05/28/2024 [facility] Comment on above: Ordered: 05/28/2024 Progesterone [Mass/volume] in Serum or Plasma [facility] Reagin Ab [Presence] in Serum by RPR RPR Lab Routine Missed menses , unspecified gestational age Ordered: 03/23/2024 [facility] Comment on above: Ordered: 03/23/2024 Rubella antibody, IgG Rubella an tibody, IgG Lab Routine Missed menses , unspecified gestational age Ordered: 03/23/2024 [facility] Comment on above: Ordered: 03/23/2024 SURESWAB(R) ADVANCED VAGINITIS PLUS, TMA SURESWAB(R) ADVANCED VAGINITIS PLUS, TMA Pathology and Cytology Routine Vaginal discharge Ordered: 05/28/2024 [facility] Comment on above: Ordered: 05/28/2024 XR Cervical spine 5 Views [facility] XR Thoracic and lumb ar spine Views for scoliosis [facility] Payers Date Payer Category Payer Self-pay 2022 Medicaid [id number] 2022 Medicaid [id number] 2. [id number] 2022 Unknown 2015 Unknown [id number] 2.16 .840.1.446623.3.441 2014 Unknown [id number] 1996 Unknown [id number] 2.16.8 40.1.951992.3.579.2.173 1996 Unknown [id number] 2.16.8 40.1.190257.3.579.2.173 1996 Unknown [id number] 2.16. 840.1.437428.3.579.2.196 1996 Unknown [id number] 2.16. 840.1.939869.3.579.2.196 1996 Unknown [id number] 2.16. 840.1.940206.3.579.2.196 1996 Unknown [id number] 2.16. 840.1.664709.3.579.2.196 1996 Unknown [id number] 2.16. 840.1.379384.3.579.2.196 1996 Unknown [id number] 2.16. 840.1.779157.3.579.2.196 1996 Unknown [id number] 2.16. 840.1.913577.3.579.2.196 1996 Unknown [id number] 2.16.84 0.1.260355.3.579.2.1259 1996 Unknown [id number] 2.16.84 0.1.739739.3.579.2.1259 1996 Unknown [id number] 2.16.84 0.1.287811.3.579.2.1259 1996 Unknown [id number] 2.16.84 0.1.201330.3.579.2.1259 1996 Unknown [id number] 2.16.84 0.1.231270.3.579.2.1259 Unknown [id number] 2.16.8 40.1.932244.3.579.2.531 Social History Date Type Detail Facility Start: Unknown if ever smoked Tag & See Start: 1 can pop/day Tag & See Sex Assigned At ITC Other Start: 07-21-2023 End: 02-02-2024 Tobacco smoking status NHIS Never smoked tobacco (finding) [facility] Start: 1995 Sex Assigned At Female F [facility] Tobacco smoking status [facility] Tobacco smoking consumption unknown [facility] Start: 1995 Sex assigned at Not on file [facility] Start: 02-17-2024 [facility] Start: 05-18-2024 Sex Female (finding) [facility] Clinical Notes 10-02-2022 to 05-28-2024 CYNTHIA Del Cid - 05/28/2024 1:10 PM Zaina Cormier MA - 04/30/2024 10:10 AM Sami Gongora CARDIAC TECH - 03/23/2024 10:00 AM Cleo Xavier, CARDIAC TECH - 03/14/2024 1:30 PM EST Note Date [...] nursing note reviewed. Exam conducted with a medical lab assistant present. Vitals: Estimated body mass index is [...] obtained without difficulty and patient was given [facility] order to have obtained. Orders Placed This Encounter Procedures US OB 14+ weeks anatomy scan Alpha fetoprotein, maternal CHLAMYDIA TRACHOMATIS (GENITO/STI) Neisseria gonorrhea DNA probe, direct POCT urinalysis dipstick manually resulted Follow Up: Patient is to return to our office in 4 weeks for routine OB appointment Documented by Nimco Mojica LPN on behalf of: CYNTHIA Del Cid documented in this encounter [facility] 04-30-2024 History of Present illness Narrative [...] Eleazar Lilly DO documented in this encounter [facility] 03-23-2024 History of Present illness Narrative [...] or undercooked meat, and stay away from [facility]. Patient has also been advised to [...] Alana Gongora LPN documented in this encounter [facility] 03-14-2024 History of Present illness Narrative [...] nursing note reviewed. Exam conducted with a medical lab assistant present. Vitals: Estimated body mass index is [...] Eleazar Lilly DO documented in this encounter [facility] 03-02-2024 Note Patient Education Ma terials Name: Manjinder Cristiane Gardiner Current Date: 03/02/2024 06:56:41 [facility] : 1995 The following sheet(s) are the Patient Education Leaflets for Crsitiane Dunbar Oncology Breast Health: Breast Self-Awareness What [...] breast self-exam (BSE). These experts include the [place] [employer] and the [place] [employer] Gynec[employer]. Some experts [...] This means they are not cancer. ? [id number] [employer]. All rights reserved. This information is not intended as a substitute for professional medical care. Always follow your healthcare professional's instructions. [facility] 02-28-2024 History of Present illness Narrative Reason for Appointment: Patient ID: Cristiane Dunbar is a 28 y.o. female who presents for Telehealth (Pt had ultrasound and positive HCG) Patient presents today via telephone call for a telehealth appointment. Patients Phone #: [phone] (mobile) Current Medications: has a current medication [...] Eleazar Lilly DO documented in this encounter [facility] 02-08-2024 History of Present illness Narrative [...] nursing note reviewed. Exam conducted with a medical lab assistant present. Vitals: Estimated body mass index is [...] Eleazar Lilly DO documented in this encounter [facility] 03-26-2023 Evaluation note Encounter Date Diagnosis [...] verbalized understanding and agrees with treatment plan ITC Other 05-27-2023 Evaluation note* Encounter Date Diagnosis [...] no improvement in 2 to 3 days ITC Other Evaluation note* Diagnosis Onset Date Resolution Status Acquired scoliosis acute Daily headache acute Fatigue acute Hot flashes acute Irregular menstrual cycle ac hans Neck pain acute [facility] Work Phone: Evaluation note* Diagnosis Onset Date Resolution Status Dizziness acute Heart palpitations acute [facility] Work Phone: Evaluation note* Diagnosis Onset Date Resolution Status Dizziness acute Heart palpitations acute Anxiety acute Depression acute [facility] Work Phone: Evaluation note* Diagnosis Onset Date Resolution Status Dizziness acute Heart palpitations acute Anxiety acute Depression acute Vaginal discharge noneactive Acute effusion of both middle ears noneactive [facility] Work Phone: Evaluation note* Diagnosis Pelvic [...] tube dysfunction acute May 18, 2024 10:24am [facility] Work Phone: Evaluation note* Diagnosis Screening, , for anatomic survey Encounter for anatomic survey STD exposure Vaginal discharge Leukorrhea, not specified as infective Well woman exam with routine gynecological exam Routine gynecological examination Second trimester state, incidental Nausea and vomiting in Unspecified vomiting of , unspecified as to episode of care documented in this encounter [facility] Healthcare Summary Purpose Family History Relationship Condition [...] DATE CREATED AUTHOR AUTHOR'S ORGANIZ ATION 12/02/2019 [facility] DATE CREATED AUTHOR AUTHOR'S ORGANIZ ATION 02/06/2024 [facility] DATE CREATED AUTHOR AUTHOR'S ORGANIZ ATION 05/26/2024 [facility] DATE CREATED AUTHOR AUTHOR'S ORGANIZ ATION 05/29/2024 [facility] EPIC REASON FOR VISIT (unrecogniz [...] Member Role Status Dates Evelyn Vu APRN [employer] Primary Care Provider Active Team Status: Inactive Member Role Status Dates Evelyn Vu APRN [employer] Primary Care Provider, Attending Provider Active Start: July 21, 2023 End: July 21, 2023 Team Status: Inactive Member Role Status Dates Evelyn Vu APRN [employer] Primary Care Provider, Attending Provider Active Start: January 03, 2024 End: January 03, 2024 Team Status: Active Member Role Status Dates Evelyn Vu APRN [employer] Primary Care Provider Active Start: January 072023 Ty Aguilar DO Attending Provider Active S tart: January 19, 2024 Team Status: Inactive Member Role Status Dates Evelyn Vu APRN [employer] Primary Care Provider, Attending Provider Active Start: January 24, 2024 End: January 24, 2024 Team Status: Inactive Member Role Status Dates Evelyn Vu APRN [employer] Primary Care Provider Active Start: January 082023 End: February 02, 2024 Jodie Portillo APRN Attending Provider Active Start: February 02, 2024 End: February 02, 2024 Team Status: Inactive Member Role Status Dates Jodie Portillo APRN Attending Provider Active Start: February 02, 2024 End: February 02, 2024 Cafeteria Food Server Relationship Specialty Start Date End Date Corwin Dee DO [address] [place] [address] PCP - General Family Medicine 09/14/22 Cafeteria Food Server Relationship Specialty Start Date End Date Corwin Dee DO [address] [place] [address] PCP - General Family Medicine 09/14/22 Cafeteria Food Server Relationship Specialty Start Date End Date Corwin Dee DO [address] [place] [address] PCP - General Family Medicine 09/14/22 Cafeteria Food Server Relationship Specialty Start Date End Date Corwin Dee DO [address] [place] [address] PCP - General Family Medicine 09/14/22 Cafeteria Food Server Relationship Specialty Start Date End Date Unallocated, Berto Bermudez MD [address] [place] [address] PCP - General Family Medicine 02/28/24 Cafeteria Food Server Relationship Specialty Start Date End Date Unallocated, Berto Bermudez MD [address] [place] [address] PCP - General Family Medicine 02/28/24 Cafeteria Food Server Relationship Specialty Start Date End Date Unallocated, Berto Bermudez MD [address] [facility] [address] PCP - General Family Medicine 02/28/24 Cafeteria Food Server Relationship Specialty Start Date End Date Unallocated, Berto Bermudez MD [address] [facility] [address] PCP - General Family Medicine 02/28/24 Cafeteria Food Server Relationship Specialty Start Date End Date Unallocated, Berto Bermudez MD [address] [place] [address] PCP - General Family Medicine 02/28/24 Cafeteria Food Server Relationship Specialty Start Date End Date Unallocated, [place] [address] PCP - General Family Medicine 02/28/24 Cafeteria Food Server Relationship Specialty Start Date End Date Unallocated, Berto Bermudez MD [address] [place] [address] PCP - General Family Medicine 02/28/24 Team [...] Member Role Status Dates Evelyn Vu APRN [employer] BUYERGuillermoC Primary Care Provider, Attending Provider Active Start: May 18, 2024 End: May 18, 2024 Cafeteria Food Server Relationship Specialty Start Date End Date Unallocated, Berto Bermudez MD [address] [place] [address] PCP - General Family Medicine 02/28/24 Cafeteria Food Server Relationship Specialty Start Date End Date Unallocated, Berto Bermudez MD [address] [place] [address] PCP - General Family Medicine 02/28/24 Cafeteria Food Server Relationship Specialty Start Date End Date Unallocated, Berto Bermudez MD [address] [facility] [place] [address] PCP - General Family Medicine 02/28/24 Goals [...] BE BASED ON THE PRIMARY CLINICAL RECORDS. [email or web address] [facility]. provides no warranty or guarantee of the accuracy or completeness of information in this document.
== END 2024-06-22 17:09 | disposition home or self-care (01) ==
LOC: US 17:08
PROVIDERS: PCP Nurse Practitioner Family; Visit Provider Physician Assistant
DX: Z36.89 Encounter for other specified antenatal screening (principal); O44.42 Low lying placenta NOS or without hemorrhage, second trimester; Z3A.20 20 weeks gestation of pregnancy
CPT/HCPCS: 76805; 76817

== ENCOUNTER 2024-07-09 10:42 | Outpatient (OUT) | payer MEDICAID, SELFPAY ==
[2024-07-11 00:09] LABS: AFP Value 133.2 ng/mL (.); Gestat. Age Based On As provided (.); Insulin Dep Diabetes No (.); OSBR Risk 1 IN 225 (.); Results Report (.)
== END 2024-07-09 10:43 | disposition home or self-care (01) ==
PROVIDERS: PCP Nurse Practitioner Family; Visit Provider Physician Assistant
DX: Z34.92 Encounter for supervision of normal pregnancy, unspecified, second trimester (principal)
CPT/HCPCS: 36415; 82105

== ENCOUNTER 2024-08-20 10:45 | Outpatient (OUT) | payer MEDICAID, SELFPAY ==
[2024-08-20 11:03] LABS: Basophils Percent Auto 0.4 % (0.2-2.0); Eosinophils Absolute Auto 0.1 10^3/uL (0.0-0.7); Eosinophils Percent Auto 0.4 % (0.9-7.0); Hematocrit 34.2 % (36.0-48.0); Hemoglobin 11.9 g/dL (12.0-16.0); Immature Granulocytes Abs Auto 0.17 10^3/uL (0.00-0.03); Immature Granulocytes Pct Auto 1.5 % (0.0-0.5); Lymphocytes Absolute Auto 2.1 10^3/uL (1.2-3.8); Lymphocytes Percent Auto 18.7 % (20.5-60.0); Mean Corpuscular HGB Conc 34.8 g/dL (29.9-35.2); Mean Corpuscular Hemoglobin 31.2 pg (26.7-34.0); Mean Corpuscular Volume 89.5 fL (81.0-99.0); Mean Platelet Volume 9.9 fL (9.5-13.5); Monocytes Absolute Auto 0.6 10^3/uL (0.3-0.8); Monocytes Percent Auto 4.8 % (1.7-12.0); Neutrophils Absolute Auto 8.4 10^3/uL (1.4-6.5); Neutrophils Percent Auto 74.2 % (43.0-75.0); Platelet Count 148 10^3/uL (150-450); Red Blood Count 3.82 10^6/uL (4.20-5.40); Red Cell Distribution Width 12.4 % (11.0-15.0); White Blood Count 11.4 10^3/uL (4.0-11.0)
[2024-08-20 11:35] LABS: Estimated Average Glucose 88 mg/dL; Glycohemoglobin A1C 4.7 % (4.5-6.2)
== END 2024-08-20 10:46 | disposition home or self-care (01) ==
LOC: LAB 10:46
PROVIDERS: PCP Nurse Practitioner Family; Visit Provider Nurse Practitioner Family
DX: Z34.93 Encounter for supervision of normal pregnancy, unspecified, third trimester (principal)
CPT/HCPCS: 36415; 83036; 85025

== ENCOUNTER 2024-09-18 14:57 | Outpatient (OUT) | payer MEDICAID, SELFPAY ==
--- NOTE | 2024-09-18 15:03 | US_ITS ---
The [place] [id number] Patient Name: GIANCARLO CELAYA MRN: [id number] date: 1995 Sex: F Assigned Patient Location: Current Patient Location: Accession/Order Number: [id number] Exam Date: 09/18/2024 16:23 Report Date: 09/18/2024 16:30 At the request of: AMALIA CASILLAS DO Procedure: US OB growth US OB growth 09/18/2024 3:40 PM SIGNS AND SYMPTOMS: size inconsistent with dates COMPARISON: None. TECHNIQUE: Limited pelvic ultrasound using transvesical sonography. FINDINGS: An intrauterine is identified. The visualized fetus has an estimated gestational age of 32 weeks and 2 days. A heart rate is identified at 128 bpm. A normal amount of amniotic fluid is present. There is no evidence for placenta previa or subchorionic hemorrhage. Of note the umbilical cord appears to be coiled upon itself and may represent an umbilical cord not. However, there is adequate arterial and venous blood flow throughout the cord without evidence of thrombosis or occlusion. Pelvic survey reveals no gross abnormalities. US/US OB growth IMPRESSION: Single live IUP with an estimated gestational age of 32 weeks and 2 days and normal heart rate. Of note the umbilical cord appears to be coiled upon itself and may represent an umbilical cord not. However, there is adequate arterial and venous blood flow throughout the cord without evidence of thrombosis or occlusion. Impression dictated by: Wally Smith M.D. 09/18/2024 4:30 PM Dictation Location: [place] [address] Electronically authenticated by: [id number] Y Date: 09/18/2024 16:30
== END 2024-09-18 14:58 | disposition home or self-care (01) ==
LOC: US 14:57
PROVIDERS: PCP Nurse Practitioner Family; Visit Provider Obstetrics & Gynecology
DX: O26.843 Uterine size-date discrepancy, third trimester (principal); Z3A.32 32 weeks gestation of pregnancy
CPT/HCPCS: 76816

== ENCOUNTER 2024-09-19 14:17 | Outpatient (OUT) | payer MEDICAID, SELFPAY ==
[2024-09-19 14:55] LABS: Alanine Aminotransferase 17 U/L (14-59); Albumin Globulin Ratio 0.6; Albumin Level 2.5 g/dL (3.4-5.0); Alkaline Phosphatase 123 U/L (46-116); Anion Gap 12.6; Aspartate Amino Transferase 19 U/L (15-37); BUN Creatinine Ratio 11.7; Bilirubin Total 0.4 mg/dL (0.2-1.0); Calcium 8.9 mg/dL (8.5-10.1); Carbon Dioxide 25.1 mmol/L (21.0-32.0); Chloride 104 mmol/L (98-107); Estimated GFR (African America >60 (>=60 mL/min/1.73m^2); Estimated GFR (Non-African Ame >60 (>=60 mL/min/1.73m^2); Globulin 3.9 g/dL; Glucose 101 mg/dL (74-106); Potassium 3.7 mmol/L (3.5-5.1); Sodium 138 mmol/L (136-145); Total Protein 6.4 g/dL (6.4-8.2)
== END 2024-09-19 14:18 | disposition home or self-care (01) ==
LOC: LAB 14:19
PROVIDERS: PCP Nurse Practitioner Family; Visit Provider Nurse Practitioner Family
DX: O26.643 Intrahepatic cholestasis of pregnancy, third trimester (principal)
CPT/HCPCS: 36415; 80053

== ENCOUNTER 2024-09-24 16:34 | Outpatient (OUT) | payer MEDICAID, SELFPAY ==
[2024-09-24 17:01] LABS: Basophils Percent Auto 0.2 % (0.2-2.0); Eosinophils Absolute Auto 0.1 10^3/uL (0.0-0.7); Eosinophils Percent Auto 0.9 % (0.9-7.0); Hematocrit 32.7 % (36.0-48.0); Hemoglobin 11.6 g/dL (12.0-16.0); Immature Granulocytes Abs Auto 0.07 10^3/uL (0.00-0.03); Immature Granulocytes Pct Auto 0.7 % (0.0-0.5); Lymphocytes Absolute Auto 1.8 10^3/uL (1.2-3.8); Mean Corpuscular HGB Conc 35.5 g/dL (29.9-35.2); Mean Corpuscular Hemoglobin 31.2 pg (26.7-34.0); Mean Corpuscular Volume 87.9 fL (81.0-99.0); Mean Platelet Volume 10.3 fL (9.5-13.5); Monocytes Absolute Auto 0.6 10^3/uL (0.3-0.8); Monocytes Percent Auto 6.4 % (1.7-12.0); Neutrophils Absolute Auto 7.2 10^3/uL (1.4-6.5); Neutrophils Percent Auto 73.8 % (43.0-75.0); Platelet Count 145 10^3/uL (150-450); Red Blood Count 3.72 10^6/uL (4.20-5.40); Red Cell Distribution Width 12.9 % (11.0-15.0); White Blood Count 9.8 10^3/uL (4.0-11.0)
[2024-09-24 17:53] LABS: Thyroid Stimulating Hormone 0.964 uIU/mL (0.358-3.740)
[2024-09-26 05:08] LABS: HCV Antibody Non Reactive (Non Reactive)
[2024-09-27 00:16] LABS: Bile Acids 6.8 umol/L (0.0-10.0)
== END 2024-09-24 16:35 | disposition home or self-care (01) ==
PROVIDERS: PCP Nurse Practitioner Family; Visit Provider Nurse Practitioner Family
DX: L29.9 Pruritus, unspecified (principal)
CPT/HCPCS: 36415; 82239; 84443; 85025; 86803

== ENCOUNTER 2024-09-25 12:32 | Outpatient (OUT) | payer MEDICAID, SELFPAY ==
--- NOTE | 2024-09-25 | US_ITS ---
The [address] [address] Patient Name: GIANCARLO CELAYA MRN: [id number] date: 1995 Sex: F Assigned Patient Location: US Current Patient Location: US Accession/Order Number: [id number] Exam Date: 09/25/2024 16:34 Report Date: 09/25/2024 16:35 At the request of: AMALIA CASILLAS DO Procedure: US OB BPP w non-stress Ultrasound biophysical profile HISTORY: True knot of the umbilical cord There is adequate breathing movement, gross body movement, tone and amniotic fluid volume for total score of 8 out of 8. The amniotic fluid index is 14.9 cm within normal limits. The heart rate is 121 bpm. US/US OB BPP w non-stress IMPRESSION: Adequate biophysical profile. Impression dictated by: Ty Katz M.D. 09/25/2024 4:35 PM Dictation Location: [facility] Electronically authenticated by: [id number] Y Date: 09/25/2024 16:35
== END 2024-09-25 13:45 | disposition home or self-care (01) ==
LOC: US 12:32 → FBC 12:40 → US 12:41 → FBC 12:44
PROVIDERS: PCP Nurse Practitioner Family; Visit Provider Obstetrics & Gynecology
DX: O69.2XX0 Labor and delivery complicated by other cord entanglement, with compression, not applicable or unspecified (principal)
CPT/HCPCS: 76818

== ENCOUNTER 2024-09-28 07:46 | Outpatient (OUT) | payer MEDICAID, SELFPAY ==
--- OUTSIDE RECORDS SUMMARY | 2010-07-27 16:35 | XMS_ITS | Encounter Summary ---
Author Organization [facility] Address [address] [place] [address] Care Team Providers Care Hoop Coiling Machine Operator Name Role Phone Unavailable Primary Care Provider Unavailabl e Encounter Details Date Type Department Care Team (Late st Contact Info) Description 07/27/2010 4:35 PM EDT Hospital Encounter [place] [phone] Social History Tobacco Use Types Packs/Day Years Used Date Smoking Tobacco: Never Smokeless Tobacco: Never Alcohol Use Standard Drinks/Week Comments Yes 0 (1 standard drink = 0.6 oz pur e alcohol) occ Comments No Sex and Gender Information Value Date Recorded Sex Assigned at Not on file Legal Sex Female 2:48 PM EST Gender Identity Not on file Sexual Orientation Not on file documented as of this encounter Plan of Treatment Not on file documented as of this encounter Visit Diagnoses Not on filedocumented in this encounter
--- OUTSIDE RECORDS SUMMARY | 2024-06-08 09:30 | XMS_ITS ---
Author Organization [facility] Address [address] [place] [address] Care Team Providers Care Community Development Worker Name Role Phone Katie Monroe Primary Care Provider Ines Sauceda Unavailable Swapna Chris Unavailable [phone] REASON FOR VISIT PROPHY Encounters Encounter Location Date Provider Diagnosis [facility] [address] [place] [address] 06/08/2024 Swapna Chris Plan Of Treatment No Information Progress Notes * GIANCARLO CELAYA EDOB:1995 (28 yo F)Acc No.[id number]:06/08/2024 Patient: GIANCARLO DAVIDSON Provider: Debora Chris :1995 A ge:28 Y S ex:Female Date:06/08/2024 Address:[address] [place] [address], [id number] Pcp:Katie Monroe Subjective: * Chief Complaints: * 1 . PROPHY. * Medical History: Objective: * Vitals: Assessment: Plan: * Treatment: * Images: * Electronic signature of Misti Chris on 09/28/2024 at 07:50 AM EDT Sign off status: Pending * Provider: Debora Chris Date: 0 06/08/2024 Generated for Printi ng/Faxing/eTransmitting on: 0 09/28/2024 07:50 AM EDT
--- OUTSIDE RECORDS SUMMARY | 2024-06-11 09:30 | XMS_ITS ---
Author Organization [facility] Address [address] [place] [address] Care Team Providers Care Analytical Lab Analyst Name Role Phone Katie Monroe Primary Care Provider [phone] Ines Sauceda Unavailable [phone] REASON FOR VISIT FILLING Encounters Encounter Location Date Provider Diagnosis [address] [place] [address] 06/11/2024 Ines Hodges Plan Of Treatment No Information Progress Notes * GIANCARLO CELAYA EDOB:1995 (28 yo F)Acc No.[id number]:06/11/2024 Patient: Juan Pablo DAVIS GIANCARLO Peterson Provider: Nagi HODGES DDS :1995 A ge:28 Y S ex:Female Date:06/11/2024 Address:[address] [place] [address], [id number] Pcp:Katie Monroe Subjective: * Chief Complaints: * 1 . FILLING. * Medical History: Objective: * Vitals: Assessment: Plan: * Treatment: * Images: * Electronic signature of Elsie Hodges DDS on 09/28/2024 at 07:50 AM EDT Sign off status: Pending * Provider: Nagi HODGES DDS Date: 0 06/11/2024 Generated for Printi ng/Faxing/eTransmitting on: 0 09/28/2024 07:50 AM EDT
--- OUTSIDE RECORDS SUMMARY | 2024-08-03 10:30 | XMS_ITS ---
Author Organization [facility] Address [address] [place] [address] Care Team Providers Care Air Control Electronics Operator Name Role Phone Katie Monroe Primary Care Provider [phone] Ines Sauceda Unavailable REASON FOR VISIT FILLING Encounters Encounter Location Date Provider Diagnosis [address] [place] [address] 08/03/2024 Ines Hodges Plan Of Treatment No Information Progress Notes * GIANCARLO CELAYA EDOB:1995 (28 yo F)Acc No.[id number]:08/03/2024 Patient: Juan Pablo DAVIS GIANCARLO Peterson Provider: Nagi HODGES DDS :1995 A ge:28 Y S ex:Female Date:08/03/2024 Address:[address] [place] [address], [id number] Pcp:Katie Monroe Subjective: * Chief Complaints: * 1 . FILLING. * Medical History: Objective: * Vitals: Assessment: Plan: * Treatment: * Images: * Electronic signature of Elsie Hodges DDS on 09/28/2024 at 07:51 AM EDT Sign off status: Pending * Provider: Nagi HODGES DDS Date: 08/03/2024 Generated for Printi ng/Faxing/eTransmitting on: 0 09/28/2024 07:51 AM EDT
--- OUTSIDE RECORDS SUMMARY | 2024-09-28 07:50 | XMS_ITS | Encounter Summary ---
Author Organization [facility] Address [address] [facility] [place] [address] Care Team Providers Care Director Biologics Name Role Phone Unallocated, Noms Provider Primary Care [facility] Encounter Details Date Type Department Care Team (Late st Contact Info) Description 09/21/2024 Telephone N[facility] BCP OB [address] [place] [address] [place] [phone] Shalonda Anderson MA Social History Tobacco Use Types Packs/Day Years Used Date Smoking Tobacco: Never Assessed Estimated Date of Delivery Comme nts Yes 11/09/2024 Based on Ultraso und Sex and Gender Information Value Date Recorded Sex Assigned at Not on file Legal Sex Female 7:01 PM EDT Gender Identity Not on file Sexual Orientation Not on file documented as of this encounter Miscellaneous Notes * Telephone Encounter - Shalonda Anderson MA - 09/21/2024 12:28 PM EDT Hi, this is Cristiane Goss. I was just calling to see if somebody can go over my lab results with me and also my ultrasound that I had earlier in the week. So please just give me a call back. Thank you. Attempted to call pt Voicemail box has not been set up yet Unable to leave message documented in this encounter Plan of Treatment Upcoming Encounters Date Type Department Care Team (Late st Contact Info) Description 10/02/2024 9:10 AM EDT Routine [facility]OMS BCP OB [address] [facility] [place] [address] Cheryl Baugh PA [address] [facility] [place] [address] documented as of this encounter Visit Diagnoses Not on filedocumented in this encounter Care Teams Director Biologics Relationship Specialty Start Date End Date Unallocated, Noms MD [address] [place] [address] PCP - General Family Medicine 02/28/24 documented as of this encounter
--- OUTSIDE RECORDS SUMMARY | 2024-09-28 07:50 | XMS_ITS | Encounter Summary ---
Author Organization [facility] Address [address] [facility] [place] [address] Care Team Providers Care Tank Operator Name Role Phone Unallocated, Noms Provider Primary Care [facility] Encounter Details Date Type Department Care Team (Late st Contact Info) Description 09/24/2024 Results Follow-Up [facility] BCP OB [address] [facility] [place] [phone] Nimco Mojica LPN [address] [employer] [place] [id number] Social History Tobacco Use Types Packs/Day Years Used Date Smoking Tobacco: Never Assessed Estimated Date of Delivery Comme nts Yes 11/09/2024 Based on Ultraso und Sex and Gender Information Value Date Recorded Sex Assigned at Not on file Legal Sex Female 7:01 PM EDT Gender Identity Not on file Sexual Orientation Not on file documented as of this encounter Miscellaneous Notes * Result Encounter Note - Nimco Mojica LPN - 09/24/2024 3:37 PM EDT Done! documented in this encounter Plan of Treatment Upcoming Encounters Date Type Department Care Team (Late st Contact Info) Description 10/02/2024 9:10 AM EDT Routine [facility] BCP OB [address] [facility] [place] [address] Cheryl Baugh PA [address] [place] [address] documented as of this encounter Visit Diagnoses Not on filedocumented in this encounter Care Teams Tank Operator Relationship Specialty Start Date End Date Unallocated, Noms Provider, [place] [address] PCP - General Family Medicine 02/28/24 documented as of this encounter
--- OUTSIDE RECORDS SUMMARY | 2024-09-28 07:50 | XMS_ITS | Encounter Summary ---
Author Organization [facility] Address [address] [facility] [place] [address] Care Team Providers Care Arc Cutter Name Role Phone Unallocated, Noms Provider Primary Care [facility] Encounter Details Date Type Department Care Team (Late st Contact Info) Description 09/19/2024 Telephone [facility]OM[facility] BCP OB [address] [place] [address] [place] [phone] Shalonda Anderson MA Social History Tobacco Use [...] Telephone Encounter - Shalonda Anderson MA - 09/19/2024 12:58 PM EDT Hi, this is Cristiane Dunbar, I am just calling because I had some concerns. I do not know if it is anything that I should be worried about, but I just wanted to bring it to somebody's attention. I have had like severe itching all over my body for like I would say almost the past week, I do not have a rash anywhere or anything that I can see. I just it like crazy itching that is keeping me up at night because it is way worse at nighttime. So, I was just calling to see if that is something that I should be concerned about or if there is anything I can do for that. Obviously, I have been applying moisturizer, but that is really not doing anything. So please give me a callback. Thank you. OB: 32w5d JESUS: 11/09/24 Pt states 1wk of all over body itching. Worsens at night time.. Pt states itching in palms of handsor bottoms of feet is not more than the rest of her body. Will reach out to provider Per CLINICAL RESEARCH SCIENTIST pt to have CMP done. PVU and will do today documented in this encounter Plan of Treatment Upcoming Encounters Date Type Department Care Team (Late st Contact Info) Description 10/02/2024 9:10 AM EDT Routine [facility]OM[facility] BCP OB [address] [facility] [place] [address] Cheryl Baugh PA [address] [facility] [place] [address] Scheduled Orders Name Type Priority Associated Diagnoses Orde r Schedule Comprehensive metabolic panel Lab Routine Cholestasis of in third trimester Expected: 09/19/2024 (Approximate), Expires: 09/19/2025 documented as of this encounter Visit Diagnoses Diagnosis Cholestasis of in third trimester documented in this encounter Care Teams Arc Cutter Relationship Specialty Start Date End Date Unallocated, Noms Provider, [place] [address] PCP - General Family Medicine 02/28/24 documented as of this encounter
--- OUTSIDE RECORDS SUMMARY | 2024-09-28 07:50 | XMS_ITS | Encounter Summary ---
Author Organization [facility] Address [address] [facility] [place] [address] Care Team Providers Care Building Energy Consultant Name Role Phone Unallocated, Noms Provider Primary Care [facility] Encounter Details Date Type Department Care Team (Late st Contact Info) Description 09/18/2024 Clinisync Result Encounter NOMS External Department Unsolicited Amalia Lilly, DO [address] [facility] [place] [address] Social History Tobacco Use Types Packs/Day Years Used Date Smoking Tobacco: Never Assessed Estimated Date of Delivery Comme nts Yes 11/09/2024 Based on Ultraso und Sex and Gender Information Value Date Recorded Sex Assigned at Not on file Legal Sex Female 7:01 PM EDT Gender Identity Not on file Sexual Orientation Not on file documented as of this encounter Plan of Treatment Upcoming Encounters Date Type Department Care Team (Late st Contact Info) Description 10/02/2024 9:10 AM EDT Routine [facility] BCP OB [address] [facility] [place] [phone] Cheryl Baugh PA [address] [facility] [place] [address] documented as of this encounter Procedures Procedure Name Priority Date/Time Associated Diagnosis Comments US OB GROWTH 09/18/2024 4:30 PM EDT documented in this encounter Results * US OB GROWTH (09/18/2024 4:30 PM EDT) Anatomical Region Laterality Modality Other 09/18/2024 4:30 PM EDT Narrative 09/18/2024 4:32 [place] [address] Ultrasound Report Signed Patient: GIANCARLO CELAYA MR#: [id number] : 1995 Acct:[id number] Age/Sex: 28 / F ADM Date: 09/18/24 Loc: US Attending Dr: Amalia Lilly D.O. Ordering Physician: Amalia Lilly D.O. Date of Service: 09/18/24 Procedure(s): US OB growth Accession Number(s): [id number] cc: Amalia Lilly D.O.; LUDY GRAFF [place] [address] Patient Name: GIANCARLO CELAYA MRN: [id number] date: 1995 Sex: F Assigned Patient Location: US Current Patient Location: US Accession/Order Number: [id number] Exam Date: 09/18/2024 16:23 Report Date: 09/18/2024 16:30 At the request of: AMALIA LILLY DO Procedure: US OB growth US OB growth 09/18/2024 3:40 PM SIGNS AND SYMPTOMS: size inconsistent with dates COMPARISON: None. TECHNIQUE: Limited pelvic ultrasound using transvesical sonography. FINDINGS: An intrauterine is identified. The visualized fetus has an estimated gestational age of 32 weeks and 2 days. A heart rate is identified at 128 bpm. A normal amount of amniotic fluid is present. There is no evidence for placenta previa or subchorionic hemorrhage. Of note the umbilical cord appears to be coiled upon itself and may represent an umbilical cord not. However, there is adequate arterial and venous blood flow throughout the cord without evidence of thrombosis or occlusion. Pelvic survey reveals no gross abnormalities. US/US OB growth IMPRESSION: Single live IUP with an estimated gestational age of 32 weeks and 2 days and normal heart rate. Of note the umbilical cord appears to be coiled upon itself and may represent an umbilical cord not. However, there is adequate arterial and venous blood flow throughout the cord without evidence of thrombosis or occlusion. Impression dictated by: Wally Smith M.D. 09/18/2024 4:30 PM Dictation Location: [place] [address] Electronically authenticated by: [id number] Y Date: 09/18/2024 16:30 Dictated By: Wally Smith M.D. Signed By: 09/18/24 1632 DD/ 1630 TD/TT: Public Relations Studies Director: Procedure Note Radiology, Radiologist, MD - 09/18/2024 [place] [address] Ultrasound Report Signed Patient: GIANCARLO CELAYA EMR#: [id number] : 1995Acct:[id number] Age/Sex: 28 / FADM Date: 09/18/24 Loc: US Attending Dr: Amalia Lilly D.O. Ordering Physician: Amalia Lilly D.O. Date of Service: 09/18/24 Procedure(s): US OB growth Accession Number(s): [id number] cc: Amalia Lilly D.O.; LUDY GRAFF [address] [address] Patient Name: GIANCARLO CELAYA MRN: [id number] date: 1995 Sex: F Assigned Patient Location: Current Patient Location: US Accession/Order Number: [id number] Exam Date: 09/18/2024 16:23 Report Date: 09/18/2024 16:30 At the request of: AMALIA LILLY DO Procedure: US OB growth US OB growth 09/18/2024 3:40 PM SIGNS AND SYMPTOMS: size inconsistent with dates COMPARISON: None. TECHNIQUE: Limited pelvic ultrasound using transvesical sonography. FINDINGS: An intrauterine is identified. The visualized fetus has an estimated gestational age of 32 weeks and 2 days. A heart rate isidentified at 128 bpm. A normal amount of amniotic fluid is present. There is noevidence for placenta previa or subchorionic hemorrhage. Of note the umbilicalcord appears to be coiled upon itself and may represent an umbilical cord not. However, there is adequate arterial and venous blood flow throughout thecord without evidence of thrombosis or occlusion. Pelvic survey reveals no gross abnormalities. US/US OB growth IMPRESSION: Single live IUP with an estimated gestational age of 32 weeks and 2 daysand normal heart rate. Of note the umbilical cord appears to be coiled upon itself and mayrepresent an umbilical cord not. However, there is adequate arterial and venousblood flow throughout the cord without evidence of thrombosis or occlusion. Impression dictated by: Wally Smith M.D. 09/18/2024 4:30 PM Dictation Location: [place] [address] Electronically authenticated by: [id number] Y Date: 6:30 Dictated By: Wally Smith M.D. Signed By:09/18/24 1632 DD/ 1630 TD/TT: Public Relations Studies Director: us Amalia Vijaya DO [facility] Final Result documented in this encounter Visit Diagnoses Not on filedocumented in this encounter Care Teams Building Energy Consultant Relationship Specialty Start Date End Date Unallocated, Noms Provider, [address] [place] [address] PCP - General Family Medicine 02/28/24 documented as of this encounter
--- OUTSIDE RECORDS SUMMARY | 2024-09-28 07:50 | XMS_ITS | Encounter Summary ---
Author Organization [facility] Address [address] [facility] [place] [address] Care Team Providers Care Elevator Mechanic Apprentice Name Role Phone Unallocated, Noms Provider Primary Care [facility] Encounter Details Date Type Department Care Team (Late st Contact Info) Description 09/19/2024 Clinisync Result Encounter NOMS External Department Unsolicited Gaye Vázquez, CHERI [address] [facility] [place] [address] Social History Tobacco Use Types Packs/Day Years [...] AM EDT Routine [facility] BCP OB [address] [facility] [place] [address] Cheryl Baugh PA [address] [facility] [address] [place], [place] [phone] documented as of this encounter Procedures Procedure Name Priority Date/Time Associated Diagnosis Comments [facility] CMP (CMP) (FOR REMOTE [facility] USE) Routine 09/19/2024 2:31 PM EDT documented in this encounter Results * (ABNORMAL) [facility] CMP (CMP) (FOR REMOTE [facility] USE) (09/19/2024 2:31 PM EDT) SODIUM 138 136 - 145 mmol/L TBH POTASSIUM 3.7 3.5 - 5.1 mmol/L TBH CHLORIDE 104 98 - 107 mmol/L TBH CARBON DIOXIDE 25.1 21.0 - 32.0 mmol/L TBH ANION GAP 12.6 TBH GLUCOSE 101 74 - 106 mg/dL TBH BLOOD UREA NITROGEN 7.0 7.0 - 18.0 mg/dL TBH CREATININE 0.60 0.55 - 1.02 mg/dL TBH TBH EGFR-AF GUYANESE >60 >=60 mL/min/1. 73m 2 TBH TBH EGFR-NON AF GUYANESE >60 >=60 mL/min/1. 73m 2 TBH BUN CREATININE RATIO 11.7 TBH CALCIUM 8.9 8.5 - 10.1 mg/dL TBH BILIRUBIN TOTAL 0.4 0.2 - 1.0 mg/dL TBH ASPARTATE AMINO TRANSFERASE 19 15 - 37 U/L TBH ALANINE AMINOTRANSFERASE 17 14 - 59 U/L TBH ALKALINE PHOSPHATASE 123(H) 46 - 116 U/L TBH TOTAL PROTEIN 6.4 6.4 - 8.2 g/dL TBH ALBUMIN LEVEL 2.5(L) 3.4 - 5.0 g/dL TBH GLOBULIN 3.9 g/dL TBH ALBUMIN GLOBULIN RATIO 0.6 TBH 09/19/2024 2:31 PM EDT 09/19/2024 2:32 PM EDT Narrative [facility] - 09/19/2024 3:00 PM EDT Gaye Vázquez NP [facility] Final Result [facility] TB documented in this encounter Visit Diagnoses Not on filedocumented in this encounter Care Teams Elevator Mechanic Apprentice Relationship Specialty Start Date End Date Unallocated, Noms Provider, [address] [place] [address] PCP - General Family Medicine 02/28/24 documented as of this encounter
--- OUTSIDE RECORDS SUMMARY | 2024-09-28 07:50 | XMS_ITS | Encounter Summary ---
Author Organization [facility] Address [address] [facility] [place] [address] Care Team Providers Care Sugarcane Planter Name Role Phone Unallocated, Noms Provider Primary Care [facility] Encounter Details Date Type Department Care Team (Late st Contact Info) Description 09/21/2024 Telephone [facility] BCP OB [address] [facility] [place] [address] Monica Ayala LPN Social History Tobacco Use Types Packs/Day Years [...] encounter Miscellaneous Notes * Telephone Encounter - Monica Ayala LPN - 09/21/2024 12:31 PM EDT Orders sent to [facility] and [facility] Scheduling. --ss documented in this encounter Plan of Treatment Upcoming Encounters Date Type Department Care Team (Late st Contact Info) Description 10/02/2024 9:10 AM EDT Routine [facility]OM[facility] BCP OB [address] [place] [address] Cheryl Baugh PA [address] [place] [address] [place] [address] Scheduled Orders Name Type Priority Associated Diagnoses Orde r Schedule US biophysical profile w non stress test Imaging Routine True knot of umbilical cord, single or unspecified fetus Expected: 09/21/2024 (Approximate), Expires: 03/24/2025 documented as of this encounter Visit Diagnoses Diagnosis True knot of umbilical cord, single or unspecified fetus documented in this encounter Care Teams Sugarcane Planter Relationship Specialty Start Date End Date Unallocated, Noms Provider, [place] [address] PCP - General Family Medicine 02/28/24 documented as of this encounter
--- OUTSIDE RECORDS SUMMARY | 2024-09-28 07:50 | XMS_ITS | Encounter Summary ---
Author Organization [facility] Address [address] [facility] [place] [address] Care Team Providers Care Resident Caregiver Name Role Phone Unallocated, Noms Provider Primary Care [facility] Encounter Details Date Type Department Care Team (Late Contact Info) Description 09/24/2024 Clinisync Result Encounter NOMS External Department Unsolicited Gaye Vázquez, CHERI [address] [facility] [place] [address] Social History Tobacco Use Types Packs/Day [...] AM EDT Routine NOMS BCP OB [address] [facility] [address] Cheryl Baugh PA [address] [facility] [address] [place], [place] [phone] documented as of this encounter Procedures Procedure Name Priority Date/Time Associated Diagnosis Comments [facility]CF BILE ACIDS FRACT BLD Routine 09/24/2024 4:47 PM EDT ALL THYROID STIM HORMONE Routine 09/24/2024 4:47 PM EDT ALL HEPATITIS C AB Routine 09/24/2024 4: 47 PM EDT ALL CBC WITH AUTO DIFF Routine 09/24/2024 4:47 PM EDT documented in this encounter Results * [facility] BILE ACIDS FRACT BLD (09/24/2024 4:47 PM EDT) BILE ACIDS 6.8 0.0 - 10.0 umol/L TB Comment: Performed at: [facility] [address] [id number] Finish Carpenter: Mello Godoy MD, Phone: [phone] 09/24/2024 4:47 PM EDT 09/24/2024 4:47 PM EDT Narrative [facility] - 09/27/2024 12:16 AM EDT Gaye Vázquez NP [facility]ENI[facility] Final Result Performing Organization Address [facility] de Phone Number [facility] * ALL HEPATITIS C AB (09/24/2024 4:47 PM EDT) HCV ANTIBODY Non Reactive Non Reactive [facility] Comment: HCV antibody alone does not differentiate between previously resolved infection and active infection. Equivocal and Reactive HCV antibody results should be followed up with an HCV RNA test to support the diagnosis of active HCV infection. Performed at: [facility] [address] [id number] Finish Carpenter: Sheldon Polo PhD, Phone: [phone] 09/24/2024 4:47 PM EDT 09/24/2024 4:47 PM EDT Narrative [facility] - 09/26/2024 5:08 AM EDT us Gaye Vázquez NP [facility] Final Result [facility] TB * ALL THYROID STIM HORMONE (09/24/2024 4:47 PM EDT) THYROID STIMULATING HORMONE 0.964 0.358 - 3.740 uIU/mL TBH 09/24/2024 4:47 PM EDT 09/24/2024 4:47 PM EDT Narrative [facility] - 09/24/2024 5:57 PM EDT Gaye Vázquez NP [facility] Final Result [facility] * (ABNORMAL) ALL CBC WITH AUTO DIFF (09/24/2024 4:47 PM EDT) TB WBC 9.8 4.0 - 11.0 10 3/uL TBH TBH RBC 3.72(L) 4.20 - 5.40 10 6/uL TBH TBH HGB 11.6(L) 12.0 - 16.0 g/dL TBH TBH HCT 32.7(L) 36.0 - 48.0 % TBH TBH MCV 87.9 81.0 - 99.0 fL TBH TBH MCH 31.2 26.7 - 34.0 pg TBH TBH MCHC 35.5(H) 29.9 - 35.2 g/dL TBH TBH RDW 12.9 11.0 - 15.0 % TBH TBH PLT 145(L) 150 - 450 10 3/uL TBH TBH MPV 10.3 9.5 - 13.5 fL TBH NEUTROPHILS PERCENT AUTO 73.8 43.0 - 75.0 % TBH LYMPHOCYTES PERCENT AUTO 18.0(L) 20.5 - 60.0 % TBH MONOCYTES PERCENT AUTO 6.4 1.7 - 12.0 % TBH TBH EO % 0.9 0.9 - 7.0 % TBH BASOPHILS PERCENT AUTO 0.2 0.2 - 2.0 % TBH IMMATURE GRANULOCYTES PCT AUTO 0.7(H) 0.0 - 0.5 % TBH NEUTROPHILS ABSOLUTE AUTO 7.2(H) 1.4 - 6.5 10 3/uL TBH LYMPHOCYTES ABSOLUTE AUTO 1.8 1.2 - 3.8 10 3/uL TBH MONOCYTES ABSOLUTE AUTO 0.6 0.3 - 0.8 10 3/uL TBH TBH EO # 0.1 0.0 - 0.7 10 3/uL TBH BASOPHILS ABSOLUTE AUTO 0.0 0.0 - 0.1 10 3/uL TBH IMMATURE GRANULOCYTES ABS AUTO 0.07(H) 0.00 - 0.03 10 3/uL TBH 09/24/2024 4:47 PM EDT 09/24/2024 4:47 PM EDT Narrative [facility] - 09/24/2024 5:11 PM EDT Gaye Vázquez NP [facility] Final Result [facility] documented in this encounter Visit Diagnoses Not on filedocumented in this encounter Care Teams Resident Caregiver Relationship Specialty Start Date End Date Unallocated, Noms Provider, [address] [place] [address] PCP - General Family Medicine 02/28/24 documented as of this encounter
--- OUTSIDE RECORDS SUMMARY | 2024-09-28 07:50 | XMS_ITS | Encounter Summary ---
Author Organization [facility] Address [address] [facility] [place] [address] Care Team Providers Care Software Maintenance Engineer Name Role Phone LuizCorwin olivarez Primary Care Provider Unallocated, Noms Provider Primary Care [facility] Encounter Details Date Type Department Care Team (Late st Contact Info) Description 02/21/2024 Orders Only NOMS BCP OB [address] [facility] [place] [address] Eleazar Lilly DO [address] [place] [address] Dr [place], [facility] Left ovarian cyst Social History Tobacco Use Types Packs/Day Years Used Date Smoking Tobacco: Never Assessed Comments No Sex and Gender Information Value Date Recorded Sex Assigned at Not on file Legal Sex Female 7:01 PM EDT Gender Identity Not on file Sexual Orientation Not on file documented as of this encounter Plan of Treatment Upcoming Encounters Date Type Department Care Team (Late Contact Info) Description 10/02/2024 9:10 AM EDT Routine NOMS BCP OB [address] [place] [address] Cheryl Baugh PA [address] [facility] [place] [address] Scheduled Orders Name Type Priority Associated Diagnoses Orde r Schedule hCG, quantitative Lab Routine Left ovarian cyst Expected: 02/21/2024 (Approximate), Expires: 02/20/2025 documented as of this encounter Visit Diagnoses Diagnosis Left ovarian cyst Other and unspecified ovarian cyst documented in this encounter Care Teams Software Maintenance Engineer Relationship Specialty Start Date End Date Corwin Dee DO [address] [place] [address] PCP - General Family Medicine 09/14/22 02/27/24 Unallocated, Noms Provider, [address] [place] [address] PCP - General Family Medicine 02/28/24 documented as of this encounter
--- OUTSIDE RECORDS SUMMARY | 2024-09-28 07:50 | XMS_ITS | Encounter Summary ---
Author Organization [facility] Address [address] [facility] [place] [address] Care Team Providers Care Automotive Service Assistant Name Role Phone Unallocated, Noms Provider Primary Care [facility] Encounter Details Date Type Department Care Team (Late st Contact Info) Description 03/17/2024 Abstract NOMS BCP OB [address] [facility] [place] [phone] Eleazar Lilly DO [address] [place] [address] Dr [place], [facility] Social History Tobacco Use Types Packs/Day Years [...] AM EDT Routine NOMS BCP OB [address] [facility] [place] [phone] Cheryl Baugh PA [address] [facility] [address] [place], [place] [phone] documented as of this encounter Visit Diagnoses Not on filedocumented in this encounter Care Teams Automotive Service Assistant Relationship Specialty Start Date End Date Unallocated, Noms Provider, [address] [place] [address] PCP - General Family Medicine 02/28/24 documented as of this encounter
--- OUTSIDE RECORDS SUMMARY | 2024-09-28 07:50 | XMS_ITS | Encounter Summary ---
Author Organization [facility] Address [address] [place] [address] Care Team Providers Care Coding Consultant Name Role Phone Unallocated, Noms Provider Primary Care [facility] Encounter Details Date Type Department Care Team (Late st Contact Info) Description 09/24/2024 Telephone [facility] [address] [place] [id number] Nimco Mojica LPN [address] [employer] [place] [address] Social History Tobacco Use Types Packs/Day Years [...] encounter Miscellaneous Notes * Telephone Encounter - Nimco Mojica LPN - 09/25/2024 11:57 AM EDT Hi, this is Cristiane Goss. I am just calling because I am a little concerned. I do not know if I should be or not. I have only felt the baby a couple times and that is with me, like, pushing on my stomach. And then I feel like her movements are just very slow. Usually she is super active at night and in the morning and I feel like since last night she is barely moved at all and even today she is ba rely moved. I go for my non stress tests and stuff today, but not until 4. I do not know if I should go out to the hospital to have her checked on or exactly what I should do. Please give me a call back. Thank you. I advised pt to go over to [facility] now and get testing done. documented in this encounter Plan of Treatment Upcoming Encounters Date Type Department Care Team (Late st Contact Info) Description 10/02/2024 9:10 AM EDT Routine [facility] [address] [place] [phone] Cheryl Baugh PA [address] [facility] [address] [address] Scheduled Orders Name Type Priority Associated Diagnoses Orde r Schedule Hepatitis C antibody Lab Routine Pruritus Expected: 09/24/2024 (Approximate), Expires: 09/24/2025 Hepatic function panel Lab Routine Pruritus Expected: 09/24/2024 (Approximate), Expires: 09/24/2025 TSH Lab Routine Pruritus Expected: 09/24/2024 (Approximate), Expires: 09/24/2025 Bile acids, total Lab Routine Pruritus Expected: 09/24/2024 (Approximate), Expires: 09/24/2025 CBC and differential Lab Routine Pruritus Expected: 09/24/2024 (Approximate), Expires: 09/24/2025 documented as of this encounter Visit Diagnoses Diagnosis Pruritus Unspecified pruritic disorder documented in this encounter Care Teams Coding Consultant Relationship Specialty Start Date End Date Unallocated, Noms Provider, [address] [place] [address] PCP - General Family Medicine 02/28/24 documented as of this encounter
--- OUTSIDE RECORDS SUMMARY | 2024-09-28 07:51 | XMS_ITS | Encounter Summary ---
Author Organization [facility] Address [address] [facility] [place] [address] Care Team Providers Care Rubber Cutter And Shape Carver Name Role Phone Unallocated, Noms Provider Primary Care [facility] Encounter Details Date Type Department Care Team (Late st Contact Info) Description 03/23/2024 Abstract [facility] OB [address] [place] [id number] Eleazar Lilly DO [address] [place] [address] Dr Ayla Tavares, [id number] Social History Tobacco Use Types Packs/Day Years [...] Description 10/02/2024 9:10 AM EDT Routine [facility] [address] [place] [phone] Cheryl Baugh PA [address] [place], [place] [id number] documented as of this encounter Visit Diagnoses Not on filedocumented in this encounter Care Teams Rubber Cutter And Shape Carver Relationship Specialty Start Date End Date Unallocated, Noms Provider, [address] [place] [address] PCP - General Family Medicine 02/28/24 documented as of this encounter
--- OUTSIDE RECORDS SUMMARY | 2024-09-28 07:51 | XMS_ITS | Clinical Summary ---
Author Organization [facility] Address [address] [facility] [place] [address] Care Team Providers Care Machine Clothing Man Name Role Phone Unallocated, Noms Provider Primary Care Provi kamille Allergies No known active allergies Medications fluticasone (Flonase) 50 MCG/ACT nasal spray USE 1 SPRAY IN EACH NOSTRIL TWICE A DAY 05/18/19 25 Active iron polysaccharides (ProFe) 391.3 (180 Fe) MG capsuleIndications: Low iron Take 1 capsule (391.3 mg) by mouth Daily 30 capsule 6 09/04/19 25 025 Active ondansetron ODT (Zofran-ODT) 4 MG disintegrating tabletIndications:N ausea and vomiting in Take 1 tablet (4 mg) by mouth every 6 (six) hours if needed for nausea or vomiting for up to 30 doses 30 tablet 3 09/28/19 25 Active ondansetron ODT (Zofran-ODT) 4 MG disintegrating tabletIndications:N ausea and vomiting in Take 1 tablet (4 mg) by mouth every 6 (six) hours if needed for nausea or vomiting for up to 30 doses 30 tablet 3 06/26/19 25 025 Discontin ued(Reord er) Active Problems Problem Noted Date Diagnosed Date 12 weeks gestation of 04/30/2024 Second trimester 04/30/2024 Nausea and vomiting in 04/16/2024 Estimated Date of Delivery Comme nts Yes 11/09/2024 Based on Ultraso und Encounters Date Type Department Care Team Description 09/27/2024 Refill [facility] [address] [place] [address] Nimco Mojica, HOME ENERGY CONSULTANT Nausea and vomiting in 09/25/2024 Clinisync Result Encounter [facility] External Department Unsolicited Amalia Lilly, DO 09/24/2024 Clinisync Result Encounter [facility] External Department Unsolicited Gaye Vázquez, AUTO STRIPER 09/24/2024 Results Follow-Up [facility] [address] [place] [address] Nimco Mojica, HOME ENERGY CONSULTANT 09/24/2024 Telephone [facility] [address] [place] [address] Nimco Mojica, HOME ENERGY CONSULTANT 09/21/2024 Telephone [facility] [address] [place] [address] Monica Ayala, HOME ENERGY CONSULTANT 09/21/2024 Telephone [facility] [address] [place] [address] Shalonda Anderson MA 09/19/2024 Clinisync Result Encounter [facility] External Department Unsolicited Gaye Vázquez, AUTO STRIPER 09/19/2024 Telephone [facility] [address] [place] [address] Shalonda Anderson MA 09/18/2024 Clinisync Result Encounter [facility] External Department Unsolicited Amalia Lilly, 09/13/2024 10:30 AM EDT Routine [facility] [address] [place] [address] Amalia Lilly DO Third trimester ; 31 weeks gestation of ; size inconsistent with dates 09/13/2024 Bamboo flowsheet [facility] [address] [place] [address] Amalia Lilly DO 09/03/2024 Telephone [facility] [address] [facility] [place] [address] Nga Cormier MA 08/20/2024 9:50 AM EDT Routine [facility] [address] [facility] [place] [address] Amalia Lilly, DO Third trimester 08/20/2024 Clinisync Result Encounter [facility] External Department Unsolicited Gaye Vázquez NP 08/20/2024 Bamboo flowsheet [facility] [address] [facility] [place] [address] Amalia Lilly, DO 07/23/2024 10:20 AM EDT Routine [facility] [address] [facility] [place] [address] Cheryl Baugh PA 24 weeks gestation of ; Second trimester ; Diabetes mellitus screening 07/23/2024 9:00 AM EDT Ancillary Procedure [facility] [address] [facility] [place] [address] Low-lying placenta 07/12/2024 Telephone [facility] [address] [place] [address] [place] [address] Monica Ayala LPN 07/11/2024 Telephone [facility] [address] [place] [address] [place] [address] Amalia Lilly, DO 07/11/2024 Telephone [facility] [address] [facility] [place] [address] Cheryl Baugh PA 07/09/2024 Abstract [facility] [address] [place] [place] [address] [place] [address] Amalia Lilly, DO 07/09/2024 Clinisync Result Encounter [facility] External Department Unsolicited Cheryl Baugh PA from Last 3 Months Family History Medical History Relation Name Comments Lung cancer Maternal Grandmother Relation Name Status Comments Maternal Grandmother Social History Tobacco Use Types Packs/Day Years Used Date Smoking Tobacco: Never Assessed Estimated Date of Delivery Comme nts Yes 11/09/2024 Based on Ultraso und Sex and Gender Information Value Date Recorded Sex Assigned at Not on file Legal Sex Female 7:01 PM EDT Gender Identity Not on file Sexual Orientation Not on file Last Filed Vital Signs Vital Sign Reading Time Taken Comments Blood Pressure 100/56 09/13/2024 11:01 AM EDT Pulse - - Temperature - - Respiratory Rate - - Oxygen Saturation - - Inhaled Oxygen Concentration - - Weight 62.6 kg (138 lb) 09/13/2024 11:01 AM EDT Height 154.9 cm (5' 1 ) 02/08/2024 1:21 PM EDT Body Mass Index 26.07 02/08/2024 1:21 PM EDT Plan of Treatment Upcoming Encounters Date Type Department Care Team (Late st Contact Info) Description 10/02/2024 9:10 AM EDT Routine [facility] [address] [facility] [place] [address] Cheryl Baugh PA [address] [place] [address] Health Maintenance Due Date Last Done Comments Influenza Vaccine (Season Ended) 2025 Procedures Procedure Name Priority Date/Time Associated Diagnosis Comments US OB BPP W NON-STRESS 09/25/2024 4:35 PM EDT [facility] BILE ACIDS FRACT BLD Routine 09/24/2024 4:47 PM EDT ALL HEPATITIS C AB Routine 09/24/2024 4: 47 PM EDT ALL THYROID STIM HORMONE Routine 09/24/2024 4:47 PM EDT ALL CBC WITH AUTO DIFF Routine 09/24/2024 4:47 PM EDT [facility] CMP (CMP) (FOR REMOTE [facility] USE) Routine 09/19/2024 2:31 PM EDT US OB GROWTH 09/18/2024 4:30 PM EDT POCT URINALYSIS DIPSTICK Routine 09/13/2024 11:01 AM EDT Third trimester MLR HEMOGLOBIN A1C Routine 08/20/2024 10 :54 AM EDT ALL CBC WITH AUTO DIFF Routine 08/20/2024 10:54 AM EDT POCT URINALYSIS DIPSTICK Routine 08/20/2024 10:05 AM EDT Third trimester POCT URINALYSIS DIPSTICK Routine 07/23/2024 10:01 AM EDT 24 weeks gestation of US OB LIMITED 1+ FETUSES Routine 07/23/2024 9:37 AM EDT Low-lying placenta AFP, SERUM, OPEN SPINA BIFIDA Routine 07/09/2024 11:00 AM EST from Last 3 Months Results * US OB BPP W NON-STRESS (09/25/2024 4:35 PM EDT) Anatomical Region Laterality Modality Other 09/25/2024 4:35 PM EDT Narrative 09/25/2024 4:37 [place] [address] Ultrasound Report Signed Patient: GIANCARLO CELAYA MR#: [id number] : 1995 Acct:[id number] Age/Sex: 28 / F ADM Date: 09/25/24 Loc: US Attending Dr: Amalia Lilly D.O. Ordering Physician: Amalia Lilly D.O. Date of Service: 09/25/24 Procedure(s): US OB BPP w non-stress Accession Number(s): [id number] cc: Amalia Lilly D.O.; LUDY GRAFF [place] [id number] Patient Name: GIANCARLO CELAYA MRN: [id number] date: 1995 Sex: F Assigned Patient Location: US Current Patient Location: US Accession/Order Number: [id number] Exam Date: 09/25/2024 16:34 Report Date: 09/25/2024 16:35 At the request of: AMALIA LILLY DO Procedure: US OB BPP w non-stress Ultrasound biophysical profile HISTORY: True knot of the umbilical cord There is adequate breathing movement, gross body movement, tone and amniotic fluid volume for total score of 8 out of 8. The amniotic fluid index is 14.9 cm within normal limits. The heart rate is 121 bpm. US/US OB BPP w non-stress IMPRESSION: Adequate biophysical profile. Impression dictated by: Ty Katz M.D. 09/25/2024 4:35 PM Dictation Location: [place] [address] Electronically authenticated by: [id number] Y Date: 09/25/2024 16:35 Dictated By: Ty Katz D.O. Signed By: 09/25/24 1637 DD/ 1635 TD/TT: Belt Maker Helper: Procedure Note Radiology, Radiologist, - 09/25/2024 [place] [address] Ultrasound Report Signed Patient: GIANCARLO CELAYA EMR#: [id number] : 1995Acct:[id number] Age/Sex: 28 / FADM Date: 09/25/24 Loc: US Attending Dr: Amalia Lilly D.O. Ordering Physician: Amalia Lilly D.O. Date of Service: 09/25/24 Procedure(s): US OB BPP w non-stress Accession Number(s): [id number] cc: Amalia Lilly D.O.; LUDY GRAFF [place] [address] Patient Name: GIANCARLO CELAYA MRN: [id number] date: 1995 Sex: F Assigned Patient Location: US Current Patient Location: US Accession/Order Number: [id number] Exam Date: 09/25/2024 16:34 Report Date: 09/25/2024 16:35 At the request of: AMALIA LILLY DO Procedure: US OB BPP w non-stress Ultrasound biophysical profile HISTORY: True knot of the umbilical cord There is adequate breathing movement, gross body movement, fetaltone and amniotic fluid volume for total score of 8 out of 8. The amnioticfluid index is 14.9 cm within normal limits. The heart rate is 121 bpm. US/US OB BPP w non-stress IMPRESSION: Adequate biophysical profile. Impression dictated by: Ty Katz M.D. 09/25/2024 4:35 PM Dictation Location: [place] Electronically authenticated by: [id number] Y Date: 6:35 Dictated By: Ty Katz D.O. Signed By:09/25/241636 DD/ 34 TD/TT: Belt Maker Helper: Amalia Lilly DO [facility] Final Result * [facility] BILE ACIDS FRACT BLD (09/24/2024 4:47 PM EDT) Pathologist [facility] BILE ACIDS 6.8 0.0 - 10.0 umol/L [facility] Comment: Performed at: [address] [id number] Orthopedic Specialist: Mello Godoy MD, Phone: [phone] 09/24/2024 4:47 PM EDT 09/24/2024 4:47 PM EDT Narrative [facility]INIS[facility] - 09/27/2024 12:16 AM EDT Gaye Vázquez AUTO STRIPER [facility] Final Result [facility] * ALL THYROID STIM HORMONE (09/24/2024 4:47 PM EDT) THYROID STIMULATING HORMONE 0.964 0.358 - 3.740 uIU/mL [facility] 09/24/2024 4:47 PM EDT 09/24/2024 4:47 PM EDT Narrative [facility] - 09/24/2024 5:57 PM EDT Gaye Vázquez NP [facility] Final Result Performing Organization Address [facility] Co de Phone Number [facility] * ALL HEPATITIS C AB (09/24/2024 4:47 PM EDT) Pathologist [facility] HCV ANTIBODY Non Reactive Non Reactive [facility] Comment: HCV antibody alone does not differentiate between previously resolved infection and active infection. Equivocal and Reactive HCV antibody results should be followed up with an HCV RNA test to support the diagnosis of active HCV infection. Performed at: [address] [id number] Orthopedic Specialist: Sheldon Polo PhD, Phone: [phone] 09/24/2024 4:47 PM EDT 09/24/2024 4:47 PM EDT Narrative CL[facility] - 09/26/2024 5:08 AM EDT Gaye Vázquez NP [facility] Final Result Performing Organization Address [facility] de Phone Number [facility] * (ABNORMAL) ALL CBC WITH AUTO DIFF (09/24/2024 4:47 PM EDT) Only the most recent of2 resultswithin the time period is included. [facility] WBC 9.8 4.0 - 11.0 10 3/uL [...] NP CLINISYNC Final Result [facility] TB * (ABNORMAL) [facility] CMP (CMP) (FOR REMOTE [facility] USE) (09/19/2024 2:31 PM EDT) SODIUM 138 136 - 145 mmol/L [facility] POTASSIUM 3.7 3.5 - 5.1 mmol/L [facility] CHLORIDE 104 98 - 107 mmol/L [facility] CARBON DIOXIDE 25.1 21.0 - 32.0 mmol/L [facility] ANION GAP 12.6 [facility] GLUCOSE 101 74 - 106 mg/dL [facility] BLOOD UREA NITROGEN 7.0 7.0 - 18.0 mg/dL [facility] CREATININE 0.60 0.55 - 1.02 mg/dL [facility] EGFR-AF SAMMARINESE >60 >=60 mL/min/1. 73m 2 [facility] EGFR-NON AF SAMMARINESE >60 >=60 mL/min/1. 73m 2 [facility] BUN [...] EDT Gaye Vázquez NP [facility] Final Result [facility] * US OB GROWTH (09/18/2024 4:30 PM EDT) Anatomical Region Laterality Modality Other 09/18/2024 4:30 PM EDT Narrative 09/18/2024 4:32 [place] [address] Ultrasound Report Signed Patient: GIANCARLO CELAYA MR#: [id number] : 1995 Acct:[id number] Age/Sex: 28 / F ADM Date: 09/18/24 Loc: US Attending Dr: Amalia Lilly D.O. Ordering Physician: Amalia Lilly D.O. Date of Service: 09/18/24 Procedure(s): US OB growth Accession Number(s): [id number] cc: Amalia Lilly D.O.; ROHRBACHER,LUDY A [place] [id number] Patient Name: GIANCARLO CELAYA MRN: [facility]:[id number] date: 1995 Sex: F Assigned Patient Location: Current Patient Location: Accession/Order Number: [id number] Exam Date: 09/18/2024 16:23 Report Date: 09/18/2024 [...] Smith M.D. 09/18/2024 4:30 PM Dictation Location: [place] [address] Electronically authenticated by: [id number] Y Date: 09/18/2024 16:30 Dictated By: Wally Smith M.D. Signed By: 09/18/24 1632 DD/ 1630 TD/TT: Belt Maker Helper: Procedure Note Radiology, Radiologist, - 09/18/2024 [place] [address] Ultrasound Report Signed Patient: GIANCARLO CELAYA EMR#: [id number] : 1995Acct:[id number] Age/Sex: 28 / FADM Date: 09/18/24 Loc: US Attending Dr: Amalia Lilly D.O. Ordering Physician: Amalia Lilly D.O. Date of Service: 09/18/24 Procedure(s): US OB growth Accession Number(s): [id number] cc: Amalia Lilly D.O.; LUDY GRAFF [place] [address] Patient Name: GIANCARLO CELAYA MRN: [id number] date: 1995 Sex: F Assigned Patient Location: US Current Patient Location: US Accession/Order Number: [id number] Exam Date: 09/18/2024 16:23 Report Date: 09/18/2024 [...] Smith M.D. 09/18/2024 4:30 PM Dictation Location: [place] [address] Electronically authenticated by: [id number] Y Date: 6:30 Dictated By: Wally Smith M.D. Signed By:09/18/24 163 DD/ 163 TD/TT: Belt Maker Helper: Amalia Lilly DO [facility] Final Result * (ABNORMAL) POCT urinalysis dipstick manually resulted (09/13/2024 11:01 AM EDT) Only the most recent of3 resultswithin the time period is included. Color, UA Yellow Clarity, UA Clear Glucose, UA Negative Negative - 2000(110) ++++ mg/dL Bilirubin, UA Negative Negative - 4(70) +++ mg/dL Ketones, UA Positive Negative - 160(16) ++++ mg/dL Comment:15 Spec Grav, UA 1.025 1 - 1.03 Blood, UA Negative Negative - 50 Fuad/mcL pH, UA 6.0 5 - 9 Protein, UA Positive Negative - 2000(20) ++++ mg/dL Comment:30 Urobilinogen, UA 1.0 0.2 - 12 mg/dL Leukocytes, UA Negative Negative - 500+++ Sandie/mcL Nitrite, UA Negative Negative - Positive Urine 09/13/2024 11:0 1 AM EDT Amalia Lilly DO POINT OF CARE TEST ENTER/EDIT OR DERABLES Final Result * MLR HEMOGLOBIN A1C (08/20/2024 10:54 AM EDT) GLYCOHEMOGLOBIN A1C 4.7 4.5 - 6.2 % [facility] Comment: ADA RECOMMENDED LIMIT 4.0 - 6.0 ADA THERAPEUTIC TARGET < 7.0 ACTION SUGGESTED > 7.0 ESTIMATED AVERAGE GLUCOSE 88 mg/dL [facility] 08/20/2024 10:5 4 AM EDT 08/20/2024 10:54 AM EDT Narrative [facility] - 08/20/2024 11:40 AM EDT Gaye Vázquez NP [facility] Final Result [facility] * US OB limited 1+ fetuses (07/23/2024 9:37 AM EDT) Anatomical Region Laterality Modality Body Ultrasound 07/24/2024 12:3 4 AM EDT Narrative 07/24/2024 12:34 AM EDT EXAM: US OB LIMITED 1+ FETUSES HISTORY: Low-lying placenta, follow up anatomy. COMPARISON: Ob ultrasound 06/22/2024. TECHNIQUE: Two-dimensional transabdominal grayscale ultrasound imaging of the pelvis was performed. FINDINGS: Gestation: Single Presentation: Cephalic Cardiac Activity: 134 beats per minute Placental Location: Posterior with no sonographic abnormalities identified. Distance from Placental Tip to Cervix: 3.8 cm Cervical Length: 4.1 cm Amniotic Fluid: Appears adequate ANATOMY LVOT: Unremarkable RVOT: Unremarkable Cerebellum: Unremarkable IMPRESSION: 1. Single, live intrauterine gestation 24 weeks, 3 days by LMP. JESUS is 11/09/2024. 2. Unremarkable follow-up anatomy. 3. Placenta to cervix measures 3.8 cm, which is within normal limits. Electronically Signed:Electronically signed by NIKITA VASQUEZ II, MD, PHD at 24-Jul-2024 12:32:57 AM [facility] Procedure Note Nikita Vasquez MD - 07/24/2024 EXAM: US OB LIMITED 1+ FETUSES HISTORY: Low-lying placenta, follow up anatomy. COMPARISON: Ob ultrasound 06/22/2024. TECHNIQUE: Two-dimensional transabdominal grayscale ultrasound imaging ofthe pelvis was performed. FINDINGS: Gestation: Single Presentation: Cephalic Cardiac Activity: 134 beats per minute Placental Location: Posterior with no sonographic abnormalitiesidentified. Distance from Placental Tip to Cervix: 3.8 cm Cervical Length: 4.1 cm Amniotic Fluid: Appears adequate ANATOMY LVOT: Unremarkable RVOT: Unremarkable Cerebellum: Unremarkable IMPRESSION: 1. Single, live intrauterine gestation 24 weeks, 3 days by LMP. JESUS is11/09/2024. 2. Unremarkable follow-up anatomy. 3. Placenta to cervix measures 3.8 cm, which is within normal limits. Electronically Signed:Electronically signed by NIKITA VASQUEZ II, MD, PHDat 24-Jul-2024 12:32:57 AM [facility] us Amalia JAMES OB US PROCEDURES Final Resul t * (ABNORMAL) AFP, SERUM, OPEN SPINA BIFIDA (07/09/2024 11:00 AM EST) RESULTS Report . [facility] TEST RESULTS: *Screen Positive*(A) . [facility] GEST. AGE ON COLLECTION DATE 18.0 . weeks [facility] GESTAT. AGE BASED ON As provided . [facility] Comment: Recalculations are not recommended when gestational dating by LMP and ultrasound are within 10 days. [age]US [age] [facility] RACE . [facility] WEIGHT 119 . lbs [facility] INSULIN DEP DIABETES No . TB MULTIPLE GESTATION No . [facility] AFP VALUE 133.2 . ng/mL [facility] AFP MOM 2.63 . [facility] OSBR RISK 1 IN 225 . [facility] INTERPRETATION Comment . [facility] Comment: Interpretation: Screen Positive for OSB This patient is at increased risk to have a baby with open spina bifida (OSB). The AFP MoM is calculated based on the gestational age provided, and is elevated. MS-AFP can identify up to 80% of open neural tube defects. Closed neural tube defects and some open defects may not be detected by this test. This test does not screen for Down syndrome or Trisomy 18. Recommendations: 1. Targeted ultrasound is recommended to verify gestational age, viability, number of fetuses, and to rule out anomalies. 2. If AFP is less than 3.0 MoM, repeating the AFP is an option to rule out transient elevations. 3. If this is a second elevation, or the AFP is greater than or equal to 3.0 MoM, targeted ultrasound, genetic counseling and amniocentesis are appropriate options. Interpretation: Screen Negative This result is screen negative for OSB. The AFP MoM calculated is based on the gestational age provided. MS-AFP can identify up to 80% of open neural tube defects. Closed neural tube defects and some open defects may not be detected by this test. This test does not screen for Down Syndrome or Trisomy 18. If screening for Down Syndrome or Trisomy 18 is desired, contact [facility] to discuss available options. The [employer] recommends amniocentesis be offered to women age 35 and older. This is a corrected report. The previously reported result(s) were: Test Result Date First Reported Updates reported on: 07/11/2024 1:39 PM AFP MOM VALUE 2.63 07/10/2024 9:38 PM INTERP 07/10/2024 9:38 PM Interpretation: Screen Positive for OSB This patient is at increased risk to have a baby with open spina bifida (OSB). The AFP MoM is calculated based on the gestational age provided, and is elevated. MS-AFP can identify up to 80% of open neural tube defects. Closed neural tube defects and some open defects may not be detected by this test. This test does not screen for Down syndrome or Trisomy 18. Recommendations: 1. Targeted ultrasound is recommended to verify gestational age, viability, number of fetuses, and to rule out anomalies. 2. If AFP is less than 3.0 MoM, repeating the AFP is an option to rule out transient elevations. 3. If this is a second elevation, or the AFP is greater than or equal to 3.0 MoM, targeted ultrasound, genetic counseling and amniocentesis are appropriate options. OSBR RISK 1 IN 225 07/10/2024 9:38 PM TEST RESULTS: SCREEN 07/10/2024 9:38 PM *Screen Positive* --- 07/11/24 1409 --- Interpretation previously reported as: Comment Interpretation: Screen Positive for OSB This patient is at increased risk to have a baby with open spina bifida (OSB). The AFP MoM is calculated based on the gestational age provided, and is elevated. MS-AFP can identify up to 80% of open neural tube defects. Closed neural tube defects and some open defects may not be detected by this test. This test does not screen for Down syndrome or Trisomy 18. Recommendations: 1. Targeted ultrasound is recommended to verify gestational age, viability, number of fetuses, and to rule out anomalies. 2. If AFP is less than 3.0 MoM, repeating the AFP is an option to rule out transient elevations. 3. If this is a second elevation, or the AFP is greater than or equal to 3.0 MoM, targeted ultrasound, genetic counseling and amniocentesis are appropriate options. COMMENT: Comment . [facility] Comment: Ronit Moncada, Ph.D., [facility] Director References: Available Upon Request. Multiples Of Median Cutoffs For AFP Elevations Giles 2.5 Black 2.8 IDD 2.0 Twins 4.5 Abbreviation Definitions IDD - Insulin Dep Diabetes OSBR - Open Spina Bifida Risk For further inquiries contact [facility] at [phone]. This test was developed and its performance characteristics determined by [employer]. It has not been cleared or approved by the Food and Drug Administration. Performed at: - [facility] [place], [place] [id number] Orthopedic Specialist: Darion Albrecht [facility], Phone: [phone] 07/09/2024 11:0 0 AM EST 07/09/2024 11:00 AM EST Narrative CLIN[facility] - 07/11/2024 2:09 PM EST Specimen Comment: SEE END OF THIS REPORT FOR CORRECTED REPORT COMMENTS N N ULTRASOUND [id number] 18 N 1 119 N N N N N White/ us Cheryl MARIE LAB BLOOD ORDERABLES Edited Resu lt - [facility] from Last 3 Months Insurance [employer] MEDICA[place] Care Teams Machine Clothing Man Relationship Specialty Start Date End Date Unallocated, Noms Aidan, [address] [place] [address] PCP - General Family Medicine 02/28/24
--- OUTSIDE RECORDS SUMMARY | 2024-09-28 07:51 | XMS_ITS | Patient Health Record ---
Author Organization [facility] Address [address] [place] [address] Care Team Providers Care Train Inspector Name Role Phone Katie Monroe Primary Care Provider [phone] Ines Sauceda Unavailable Karthik Castro Unavailable [phone] Swapna Chris Unavailable [phone] Reason For Referral No Information Encounters Encounter Location Date Provider Diagnosis [facility] [address] [place] [address] 01/04/2024 Katie Monroe [facility] [address] [place] [address] 12/30/2023 Katie Monroe Necrosis of pulp K04.1 ; Dental caries on pit and fissure surface penetrating into dentin K02.52 ; Acute gingivitis, plaque induced K05.00 ; Cracked tooth K03.81 ; Other dental procedure status Z98.818 and Encounter for dental examination and cleaning with abnormal findings Z01.21 Assessments Encounter Date Diagnosis (ICD Code) Assessment Notes Treatment Notes Treatment Clinical Notes Section Notes 12/30/2023 Necrosis of pulp (ICD-10 - K04.1) 12/30/2023 Dental caries on pit and fissure surface penetrating into dentin (ICD-10 - K02.52) 12/30/2023 Acute gingivitis, plaque induced (ICD-10 - K05.00) 12/30/2023 Cracked tooth (ICD-10 - K03.81) 12/30/2023 Other dental procedure status (ICD-10 - Z98.818) 12/30/2023 Encounter for dental examination and cleaning with abnormal findings (ICD-10 - Z01.21) Plan Of Treatment No Information Insurance Providers Payer Name Payer Address Payer Phone Subscriber Number Group Number Insured Name Patient Relationship to Insured Coverage Start Date Coverage End Date [employer] [place] [employer] [address] [place] [address] [id number] GIANCARLO CELAYA Self - patient is the insured 4 [employer] [facility] [place] [employer] [address] [place] [address] [id number] GIANCARLO CELAYA Self - patient is the insured 4
--- OUTSIDE RECORDS SUMMARY | 2024-09-28 07:51 | XMS_ITS | Encounter Summary ---
Author Organization [facility] Address [address] [facility] [place] [address] Care Team Providers Care Decorator Consultant Name Role Phone Unallocated, Noms Provider Primary Care [facility] Encounter Details Date Type Department Care Team (Late st Contact Info) Description 05/30/2024 Abstract [facility] BCP OB [address] [facility] [place] [phone] Eleazar Lilly DO [address] [place] [address] Dr Ayla Tavares, [facility]11 Social History Tobacco Use Types Packs/Day [...] Description 10/02/2024 9:10 AM EDT Routine [facility] OB [address] [place] [address] [place] [phone] Cheryl Baugh PA [address] [facility] [address] [place], [place] [phone] documented as of this encounter Visit Diagnoses Not on filedocumented in this encounter Care Teams Decorator Consultant Relationship Specialty Start Date End Date Unallocated, Noms Provider, [address] [place] [address] PCP - General Family Medicine 02/28/24 documented as of this encounter
--- OUTSIDE RECORDS SUMMARY | 2024-09-28 07:51 | XMS_ITS | Encounter Summary ---
Author Organization [facility] Address [address] [facility] [place] [address] Care Team Providers Care Photographic Process Worker Name Role Phone Unallocated, Noms Provider Primary Care [facility] Reason for Visit * Reason Onset Date Comments Med Refill 09/27/2024 Encounter Details Date Type Department Care Team (Late st Contact Info) Description 09/27/2024 Refill [facility] BCP OB [address] [facility] [place] [address] Nimco Mojica LPN [address] [place] [address] Nausea and vomiting in Social History Tobacco Use Types Packs/Day Years [...] Telephone Encounter - Nimco Mojica LPN - 09/27/2024 2:05 PM EDT Pt called needing medication called in. I told her that I could do that. PVU documented in this encounter Plan of Treatment Upcoming Encounters Date Type Department Care Team (Late st Contact Info) Description 10/02/2024 9:10 AM EDT Routine [facility] BCP OB [address] [facility] [place] [phone] Cheryl Baugh PA [address] [facility] [place] [address] documented as of this encounter Visit Diagnoses Diagnosis Nausea and vomiting in Unspecified vomiting of , unspecified as to episode of care documented in this encounter Care Teams Photographic Process Worker Relationship Specialty Start Date End Date Unallocated, Noms Provider, [place] [address] PCP - General Family Medicine 02/28/24 documented as of this encounter
--- OUTSIDE RECORDS SUMMARY | 2024-09-28 07:51 | XMS_ITS | Clinical Summary ---
Author Organization [facility] Address [id number] [address] [place] [address] Care Team Providers Care Drier Helper Name Role Phone Hima Silver MD Primary Care Provider [phone] Social History Tobacco Use Types Packs/Day Years Used Date Smoking Tobacco: Never Assessed Childcare Answer Date Recorded Childcare Unknown 10/16/2018 Employment Answer Date Recorded Employment Unknown 10/16/2018 Purpose - Life Answer Date Recorded Purpose and direction in life Unknown Comments Unknown Sex and Gender Information Value Date Recorded Sex Assigned at Not on file Legal Sex Female 11:56 AM EDT Gender Identity Not on file Sexual Orientation Not on file Plan of Treatment Health Maintenance Due Date Last Done Comments Depression Screening 2008 Tobacco Screening 2008 Adult BMI Screening 2014 DTaP,Tdap and Td Vaccines (1 - Tdap) 11/08/2015 Pap Smear 2017 Influenza Vaccine 01/07/2025 Medical Devices Not on file Care Teams Drier Helper Relationship Specialty Start Date End Date Hima Silver MD [address] [place] [address] PCP - General Internal Medicine 09/14/18
--- OUTSIDE RECORDS SUMMARY | 2024-09-28 07:51 | XMS_ITS | Clinical Summary ---
Author Organization [facility] Address [address] [place] [address] Care Team Providers Care Dividend Deposit Entry Clerk Name Role Phone Unavailable Primary Care Provider Unavailabl e Allergies No known active allergies Medications No known medications Social History Tobacco Use Types Packs/Day Years [...] Sign Reading Time Taken Comments Blood Pressure 130/82 04/20/2018 12:19 AM EST Pulse 85 04/20/2018 12:17 AM EST Temperature 37.1 C (98.7 F) 04/20/2018 12:17 AM EST Respiratory Rate 17 04/20/2018 12:17 AM EST Oxygen Saturation 96% 04/20/2018 12:17 AM EST Inhaled Oxygen Concentration - - Weight 56.7 kg (125 lb) 07/28/2017 12:46 AM EDT Height 154.9 cm (5' 1 ) 07/28/2017 12:46 AM EDT Body Mass Index 23.62 07/28/2017 12:46 AM EDT Plan of Treatment Not on file Insurance [place] BCBS
--- OUTSIDE RECORDS SUMMARY | 2024-09-28 07:51 | XMS_ITS | Encounter Summary ---
Author Organization [facility] Address [address] [facility] [place] [address] Care Team Providers Care Cloth Finisher Name Role Phone Unallocated, Noms Provider Primary Care [facility] Encounter Details Date Type Department Care Team (Late st Contact Info) Description 03/23/2024 Abstract [facility] BCP OB [address] [facility] [place] [phone] Eleazar Lilly DO [address] [place] [address] Dr Ayla Tavares, [facility]11 Social History Tobacco Use Types Packs/Day Years [...] Description 10/02/2024 9:10 AM EDT Routine [facility] OB [address] [facility] [place] [phone] Cheryl Baugh PA [address] [facility] [address] [place], [place] [phone] documented as of this encounter Visit Diagnoses Not on filedocumented in this encounter Care Teams Cloth Finisher Relationship Specialty Start Date End Date Unallocated, Noms Provider, [address] [place] [address] PCP - General Family Medicine 02/28/24 documented as of this encounter
--- OUTSIDE RECORDS SUMMARY | 2024-09-28 07:51 | XMS_ITS | Encounter Summary ---
Author Organization [facility] Address [address] [facility] [place] [address] Care Team Providers Care Air Cargo Agent Name Role Phone Unallocated, Noms Provider Primary Care [facility] Encounter Details Date Type Department Care Team (Late st Contact Info) Description 07/09/2024 Abstract [facility] BCP OB [address] [facility] [place] [phone] Eleazar Lilly DO [address] [place] [address] Dr Ayla Tavares, [facility]11 Social History Tobacco Use Types Packs/Day [...] Description 10/02/2024 9:10 AM EDT Routine [facility] OB [address] [place] [address] [place] [phone] Cheryl Baugh PA [address] [facility] [address] [place], [place] [phone] documented as of this encounter Visit Diagnoses Not on filedocumented in this encounter Care Teams Air Cargo Agent Relationship Specialty Start Date End Date Unallocated, Noms Provider, [address] [place] [address] PCP - General Family Medicine 02/28/24 documented as of this encounter
--- OUTSIDE RECORDS SUMMARY | 2024-09-28 07:51 | XMS_ITS | Encounter Summary ---
Author Organization [facility] Address [address] [facility] [place] [address] Care Team Providers Care Pediatric Clinical Dietician Name Role Phone Unallocated, Noms Provider Primary Care [facility] Encounter Details Date Type Department Care Team (Late st Contact Info) Description 04/23/2024 Abstract [facility] BCP OB [address] [facility] [place] [phone] Eleazar Lilly DO [address] [place] [address] Dr Ayla Tavares, [facility]11 Social History Tobacco Use Types Packs/Day [...] Description 10/02/2024 9:10 AM EDT Routine [facility] OB [address] [place] [address] [place] [phone] Cheryl Baugh PA [address] [facility] [address] [place], [place] [phone] documented as of this encounter Visit Diagnoses Not on filedocumented in this encounter Care Teams Pediatric Clinical Dietician Relationship Specialty Start Date End Date Unallocated, Noms Provider, [address] [place] [address] PCP - General Family Medicine 02/28/24 documented as of this encounter
--- OUTSIDE RECORDS SUMMARY | 2024-09-28 07:51 | XMS_ITS | Encounter Summary ---
Author Organization [facility] Address [address] [facility] [place] [address] Care Team Providers Care Shading Painter Name Role Phone Unallocated, Noms Provider Primary Care [facility] Encounter Details Date Type Department Care Team (Late st Contact Info) Description 06/08/2024 Orders Only [facility] BCP OB [address] [place] [phone] Nga Cormier MA [address] [place] [address] [place] [address] Social History Tobacco Use Types Packs/Day Years [...] [facility] BCP OB [address] [place] [phone] Cheryl Baugh PA [address] [facility] [address] [place], [place] [address] documented as of this encounter Procedures Procedure Name Priority Date/Time Associated Diagnosis Comments PAP SMEAR Routine 05/28/2024 12:00 AM EST documented in this encounter Results * Pap Smear (05/28/2024 12:00 AM EST) Swab Cervical swab / Unknown Cheryl [facility] ORDERABLES Final Re sult EXTERNAL LAB documented in this encounter Visit Diagnoses Not on filedocumented in this encounter Care Teams Shading Painter Relationship Specialty Start Date End Date Unallocated, Noms Aidan, [address] [place] [address] PCP - General Family Medicine 02/28/24 documented as of this encounter
--- OUTSIDE RECORDS SUMMARY | 2024-09-28 07:51 | XMS_ITS | Encounter Summary ---
Author Organization [facility] Address [address] [place] [address] Care Team Providers Care Overhead Distribution Engineer Name Role Phone Unallocated, Noms Provider Primary Care [facility] Encounter Details Date Type Department Care Team (Late st Contact Info) Description 09/25/2024 Clinisync Result Encounter NOMS External Department Unsolicited Amalia Lilly, DO [address] [facility] [place] [address] Social History Tobacco Use Types Packs/Day Years [...] AM EDT Routine [facility] BCP OB [address] [place] [phone] Cheryl Baugh PA [address] [facility] [place] [address] documented as of this encounter Procedures Procedure Name Priority Date/Time Associated Diagnosis Comments US OB BPP W NON-STRESS 09/25/2024 4:35 PM EDT documented in this encounter Results * US OB BPP W NON-STRESS (09/25/2024 4:35 PM EDT) Anatomical Region Laterality Modality Other 09/25/2024 4:35 PM EDT Narrative 09/25/2024 4:37 [place] [address] Ultrasound Report Signed Patient: GIANCARLO CELAYA MR#: [id number] : 1995 Acct:[id number] Age/Sex: 28 / F ADM Date: 09/25/24 Loc: US Attending Dr: Amalia Lilly D.O. Ordering Physician: Amalia Lilly D.O. Date of Service: 09/25/24 Procedure(s): US OB BPP w non-stress Accession Number(s): [id number] cc: Amalia Lilly D.O.; LUDY [place] [address] Patient Name: GIANCARLO CELAYA MRN: [id number] date: 1995 Sex: F Assigned Patient Location: US Current Patient Location: US Accession/Order Number: [id number] Exam Date: 09/25/2024 16:34 Report Date: 09/25/2024 [...] Katz M.D. 09/25/2024 4:35 PM Dictation Location: [place] [address] Electronically authenticated by: [id number] Y Date: 09/25/2024 16:35 Dictated By: Ty Katz D.O. Signed By: 09/25/241636 DD/ 34 TD/TT: Airline Customer Service Agent: Procedure Note Radiology, Radiologist, - 09/25/2024 [place] [address] Ultrasound Report Signed Patient: GIANCARLO CELAYA EMR#: [id number] : 1995Acct:[id number] Age/Sex: 28 / FADM Date: 09/25/24 Loc: US Attending Dr: Amalia Lilly D.O. Ordering Physician: Amalia Lilly D.O. Date of Service: 09/25/24 Procedure(s): US OB BPP w non-stress Accession Number(s): [id number] cc: Amalia Lilly D.O.; LUDY GRAFF [place] [id number] Patient Name: GIANCARLO CELAYA MRN: [id number] date: 1995 Sex: F Assigned Patient Location: US Current Patient Location: US Accession/Order Number: [id number] Exam Date: 09/25/2024 16:34 Report Date: 09/25/2024 [...] Katz M.D. 09/25/2024 4:35 PM [facility] Electronically authenticated by: [id number] Y Date: 6:35 Dictated By: Ty Katz D.O. Signed By:09/25/241636 DD/ 1635 TD/TT: Airline Customer Service Agent: us Amalia Vijaya DO [facility] Final Result documented in this encounter Visit Diagnoses Not on filedocumented in this encounter Care Teams Overhead Distribution Engineer Relationship Specialty Start Date End Date Unallocated, Noms Provider, [address] [place] [address] PCP - General Family Medicine 02/28/24 documented as of this encounter
[2024-09-28 07:57] VITALS: BP 109/67; PULSE 70
== END 2024-09-28 08:20 | disposition home or self-care (01) ==
LOC: FBCO 07:48 → FBC 07:51
PROVIDERS: PCP Nurse Practitioner Family; Visit Provider Obstetrics & Gynecology
DX: O26.893 Other specified pregnancy related conditions, third trimester (principal)
CPT/HCPCS: 59025

== ENCOUNTER 2024-10-02 11:18 | Outpatient (OUT) | payer MEDICAID, SELFPAY ==
--- NOTE | 2024-10-02 | US_ITS ---
[facility] [place] [id number] Patient Name: GIANCARLO CELAYA MRN: [id number] date: 1995 Sex: F Assigned Patient Location: [facility] Current Patient Location: US Accession/Order Number: [id number] Exam Date: 10/02/2024 12:41 Report Date: 10/02/2024 12:43 At the request of: AMALIA CASILLAS DO Procedure: US OB BPP w non-stress BIOPHYSICAL PROFILE: CLINICAL INFORMATION: True umbilical knot O69.2XX0 COMPARISON: 09/25/2024 There is a single live intrauterine gestation in cephalic presentation. The reported age is 34 weeks 4 days. The heart rate measures 131 beats per minute. FINDINGS: TONE: 1 or more episodes of activity extension and flexion of extremity or opening and closing of the hand [Y] 2/2 GROSS BODY MOVEMENTS: 3 or more discrete body or limb movements [Y] 2/2 BREATHING MOVEMENTS: 1 or more episodes of breathing lasting at least 30 seconds [Y] 2/2 BHAVANI: A single deepest vertical pocket of amniotic fluid greater than 2 cm [Y] 2/2 BHAVANI: 14.0 cm .) This is in normal range. Total score: 8/8 US/ OB BPP w non-stress IMPRESSION: NORMAL BIOPHYSICAL PROFILE. Impression dictated by: Yaneli Anand M.D. 10/02/2024 12:43 PM Dictation Location: [place] [address] Electronically authenticated by: [id number] Y Date: 10/02/2024 12:43
[2024-10-02 11:45] VITALS: BP 100/67; PULSE 71
== END 2024-10-02 12:10 | disposition home or self-care (01) ==
LOC: US 11:18 → FBC 11:20
PROVIDERS: PCP Nurse Practitioner Family; Visit Provider Obstetrics & Gynecology
DX: O69.2XX0 Labor and delivery complicated by other cord entanglement, with compression, not applicable or unspecified (principal); Z3A.34 34 weeks gestation of pregnancy
CPT/HCPCS: 76818

== ENCOUNTER 2024-10-05 08:00 | Outpatient (OUT) | payer MEDICAID, SELFPAY ==
[2024-10-05 08:09] VITALS: BP 106/70; PULSE 85
--- OUTSIDE RECORDS SUMMARY | 2024-10-05 08:19 | XMS_ITS | CCD ---
Author Organization [facility] Care Team Providers Care Technical Assistant Name Role Phone TALON VERAS Unavailable Unavailable TALON VERAS L Unavailable Unavailable Hima Silver Primary Care Physician Unava iljennifer Silver, Hima Catherine Unavailable Unavailable Hima Silver A Primary Care Physician Unava iljennifer Silver, Hima A Primary Care Physician Unava iljennifer Pérez, Lyric N Primary Care Physician Unavakirk Pérez, Lyric N Primary Care Physician Unachad Pérez, Lyric N Primary Care Physician Unahcad Silver, Hima A Primary Care Physician Unava iljennifer Pérez, Lyric N Primary Care Physician Unavai Deidra Morrison Unavailable Jodie Portillo Unavailable GELACIO Portillo Attending Provider [phone] Jodie Portillo Attending Unavailable Jodie Portillo Admitting Unavailable Corwin Dee DO Primary Care Provider [phone] Unallocated , [place] Provider Primary Care Provi kamille Troy ESTEVEZCNC SERVICE ENGINEERAna Attending Carley vailable Schlumbohm PA-C, Susana Dickerson Primary Care U navailable [place] RECEIVING WORKER-CNC SERVICE ENGINEER, Ana Serra Attending Carley vailable Schlumbohm PA-C, [...] Susana Dickerson Primary Care U navailable [place] RECEIVING WORKER-CNC SERVICE ENGINEER, Ana Serra Attending Carley vailable Schlumbohm PA-C, Susana Dickerson Primary Care U navailable VIJAYA, ELEAZAR Attending Unavailable VIJAYA, ELEAZAR Referring Unavailable VIJAYA, ELEAZAR Attending Unavailable CHERYL BAUGH Attending Unavailable VIJAYA, ELEAZAR Attending Unavailable VIJAYA, ELEAZAR Attending Unavailable VIJAYA, ELEAZAR Attending Unavailable VIJAYA, ELEAZAR Attending Unavailable CHERYL BAUGH Attending Unavailable Medications Current Medications Medication Drug [...] propionate 0.05 mg/actuat metered dose nasal spray (17 sources) Corticosteroid Start: 05-18-2024 take 1 spray(s) nasal route twice daily fluticasone (Flonase) 50 MCG/ACT nasal spray USE 1 SPRAY IN EACH NOSTRIL TWICE A DAY 05/18/2024 Active Start: 05-18-2024 take 1 spray(s) nasa l route twice daily Fluticasone Propionate (Flonase Allergy Relief) 50 mcg/actuation spray,suspension Active 1 SPRAY INTRANASAL Twice daily May 18, 2024 12:00am administer into each nostril Start: 10-02-2022 take 2 spray(s) nasa l route once daily Fluticasone Propionate 50 MCG/ACT 2 sprays Nasally Once a day for 14 day(s) September, Not-Taking metoclopramide 10 mg oral tablet (19 sources) Dopamine-2 Receptor Antagonist Start: 03-14-2024 End: 07-23-2024 metoclopramide (Reglan) 10 MG tablet Indications: Losing weight Take 1 tablet (10 mg) by mouth in the morning and 1 tablet (10 mg) at noon and 1 tablet (10 mg) in the evening. Take before meals. Take 1 tablet by mouth 30 minutes prior to meals 3 times daily as needed for nausea.. 90 tablet 1 03/14/2024 07/23/2024 Discontinued metroNIDAZOLE 0.0075 mg/mg vaginal gel (11 sources) Nitroimidazole Antimicrobial Start: 10-02-2024 End: 10-07-2024 metroNIDAZOLE (Metrogel) 0.75 % vaginal gel Indications: BV (bacterial vaginosis) Insert into the vagina Daily for 5 days 70 g 10/02/2024 10/07/2024 Active Start: 10-31-2018 End: 2018 take 1 tablet by mouth twice daily metronidazole 500 mg oral tablet 10/31/2018 2018 take 1 tablet by oral route 2 times a day for 7 days nitrofurantoin, macrocrystals 25 mg / nitrofurantoin, monohydrate 75 mg oral capsule (1 source) Nitrofuran Antibacterial Start: 03-23-2024 End: 03-30-2024 take 1 capsule by mouth in the morning nitrofurantoin, macrocrystal-monohydrate, (Macrobid) 100 MG capsule Indications: Urinary tract infection without hematuria, site unspecified Take 1 capsule (100 mg) by mouth in the morning and 1 capsule (100 mg) before bedtime. Do all this for 7 days. 14 capsule 03/23/2024 03/30/2024 Active ondansetron 4 mg disintegrating oral tablet (20 sources) Serotonin-3 Receptor Antagonist Start: 09-27-2024 take 1 tablet by mouth every six hours for nausea ondansetron ODT (Zofran-ODT) 4 MG disintegrating tablet Indications: Nausea and vomiting in Take 1 tablet (4 mg) by mouth every 6 (six) hours if needed for nausea or vomiting for up to 30 doses 30 tablet 3 09/27/2024 Active Start: 05-03-2024 End: 06-26-2024 take 1 tablet by mouth every six hours for nausea ondansetron ODT (Zofran-ODT) 4 MG disintegrating tablet Indications: Nausea and vomiting in Take 1 tablet (4 mg) by mouth every 6 (six) hours if needed for nausea or vomiting for up to 30 doses 30 tablet 3 06/26/2024 Active Start: 03-13-2024 End: 04-22-2024 take 1 tablet [...] tablet by oral route TID PRN nausea polysaccharide iron complex 391 mg oral capsule (11 sources) Start: 09-03-2024 End: 10-03-2024 take 1 capsule by mouth once daily iron polysaccharides (ProFe) 391.3 (180 Fe) MG capsule Indications: Low iron Take 1 capsule (391.3 mg) by mouth Daily 30 capsule 6 09/03/2024 10/03/2024 Active Completed/Discontinued Medications Medication Drug Class(es) Dates [...] Start: 05-21-2019 take 1 capsule by mo [facility] three times daily as needed for [...] daily Start: 08-14-2018 [facility] citalopram 10 mg [...] times daily as needed for anxiety 90 30 January 23, 2024 11:00pm May 18, 2024 [...] oral route once daily in the morning 24 hr minocycline 90 mg extended release [...] daily Protonix 40 mg oral tablet,delayed release (/EC) 04/09/2015 05/30/2015 take 1 tablet (40 mg) [...] Daily headache; Translations: [Daily headache] 07-21-2023 Episodic Hemorrhage during ; abruptio placenta; placenta previa (2 sources) Low lying placenta; Translations: [Low lying placenta NOS or without hemorrhage, unspecified trimester] 06-26-2024 Episodic Immunizations and screening for infectious disease (2 sources) Exposure to sexually transmissible disorder; Translations: [Contact with and (suspected) exposure to infections with a predominantly sexual mode of transmission] 05-28-2024 Episodic Inflammatory diseases of female pelvic organs (2 sources) Bacterial vaginosis; Translations: [Acute vaginitis] 10-02-2024 Episodic Malaise and fatigue (10 sources) Other [...] kyphoscoliosis], idiopathic] 07-21-2023 Chronic Other complications of (2 sources) size does not accord with dates; Translations: [Uterine size-date discrepancy, unspecified trimester] 09-13-2024 Episodic Other female genital disorders (2 sources) [...] Translations: [Abnormal weight loss] 03-14-2024 Episodic Other screening for suspected conditions (not mental disorders or infectious disease) (4 sources) Patient encounter status; Translations: [Encounter for [...] Translations: [Flushing] 07-21-2023 Episodic Residual codes; unclassified (2 sources) Gestation period, 20 weeks; Translations: [20 weeks gestation of ] 06-26-2024 Episodic Residual codes; unclassified (2 sources) Gestation period, 24 weeks; Translations: [24 weeks gestation of ] 07-23-2024 Episodic Residual codes; unclassified (2 sources) Gestation period, 31 weeks; Translations: [31 weeks gestation of ] 09-13-2024 Episodic Residual codes; unclassified (2 sources) Gestation period, 34 weeks; Translations: [34 weeks gestation of ] 10-02-2024 Episodic Spondylosis; intervertebral disc disorders; other back [...] of other medications Onset: 02-12-2016 Episodic Other complications of (20 sources) Vomiting of , unspecified; Translations: [Unspecified vomiting of , unspecified as to episode of care or not applicable] Onset: 04-16-2024 03-23-2024 Episodic Other inflammatory condition of skin (9 sources) Unspecified pruritic disorder Onset: 01-13-2017 Episodic Other and delivery including normal (20 sources) Early stage of ; Translations: [Encounter for supervision of normal , unspecified, unspecified trimester] Onset: 04-30-2024 02-28-2024 Episodic Other skin disorders (20 sources) Other [...] nasal cavity and sinuses Onset: 05-21-2019 Episodic Residual codes; unclassified (20 sources) Gestation period, 12 weeks; Translations: [12 weeks gestation of ] Onset: 04-30-2024 04-30-2024 Episodic Results Test Name Value Interpretation Reference Range Facility US OB BPP W NON-STRESS on 10-02-2024 [place] [address] Ultrasound Report Signed Patient: CRISTIANE CELAYA MR#: [id number] : 1995 Acct:[id number] Age/Sex: 28 / F ADM Date: 10/02/24 Loc: US Attending Dr: Eleazar Lilly D.O. Ordering Physician: Eleazar Lilly D.O. Date of Service: 10/02/24 Procedure(s): US OB BPP w non-stress Accession Number(s): [id number] cc: Eleazar Lilly D.O.; EVELYN VU [place] [address] Patient Name: CRISTIANE CELAYA MRN: [id number] date: 1995 Sex: F Assigned Patient Location: [facility] Current Patient Location: US Accession/Order Number: [id number] Exam Date: 10/02/2024 12:41 Report Date: 10/02/2024 12:43 At the request of: ELEAZAR LILLY DO Procedure: US OB BPP w non-stress BIOPHYSICAL PROFILE: CLINICAL INFORMATION: True umbilical knot O69.2XX0 COMPARISON: 09/25/2024 There is a single live intrauterine gestation in cephalic presentation. The reported age is 34 weeks 4 days. The heart rate measures 131 beats per minute. FINDINGS: TONE: 1 or more episodes of activity extension and flexion of extremity or opening and closing of the hand [Y] 2/2 GROSS BODY MOVEMENTS: 3 or more discrete body or limb movements [Y] 2/2 BREATHING MOVEMENTS: 1 or more episodes of breathing lasting at least 30 seconds [Y] 2/2 BHAVANI: A single deepest vertical pocket of amniotic fluid greater than 2 cm [Y] 2/2 BHAVANI: 14.0 cm .) This is in normal range. Total score: 8/8 US/US OB BPP w non-stress IMPRESSION: NORMAL BIOPHYSICAL PROFILE. Impression dictated by: Yaneli Anand M.D. 10/02/2024 12:43 PM Dictation Location: [place] [address] Electronically authenticated by: [id number] Y Date: 10/02/2024 12:43 Dictated By: Yaneli Anand M.D. Signed By: 10/02/24 1246 DD/ 1243 TD/TT: Supervisor Varnish: [facility] Radiology, Radiologist, MD - 10/02/2024 [place] [address] Ultrasound Report Signed Patient: CRISTIANE CELAYA MR#: [id number] : 1995 Acct:[id number] Age/Sex: 28 / F ADM Date: 10/02/24 Loc: Attending Dr: Eleazar Lilly D.O. Ordering Physician: Eleazar Lilly D.O. Date of Service: 10/02/24 Procedure(s): US OB BPP w non-stress Accession Number(s): [id number] cc: Eleazar Lilly D.O.; EVELYN VU [address] [address] Patient Name: CRISTIANE CELAYA MRN: [facility]:[id number] date: 1995 Sex: F Assigned Patient Location: [facility] Current Patient Location: US Accession/Order Number: [id number] Exam Date: 10/02/2024 12:41 Report Date: 10/02/2024 12:43 At the request of: ELEAZAR LILLY DO Procedure: US OB BPP w non-stress BIOPHYSICAL PROFILE: CLINICAL INFORMATION: True umbilical knot O69.2XX0 COMPARISON: 09/25/2024 There is a single live intrauterine gestation in cephalic presentation. The reported age is 34 weeks 4 days. The heart rate measures 131 beats per minute. FINDINGS: TONE: 1 or more episodes of activity extension and flexion of extremity or opening and closing of the hand [Y] 2/2 GROSS BODY MOVEMENTS: 3 or more discrete body or limb movements [Y] 2/2 BREATHING MOVEMENTS: 1 or more episodes of breathing lasting at least 30 seconds [Y] 2/2 BHAVANI: A single deepest vertical pocket of amniotic fluid greater than 2 cm [Y] 2/2 BHAVANI: 14.0 cm .) This is in normal range. Total score: 8/8 US/US OB BPP w non-stress IMPRESSION: NORMAL BIOPHYSICAL PROFILE. Impression dictated by: Yaneli Anand M.D. 10/02/2024 12:43 PM Dictation Location: [place] [address] Electronically authenticated by: [id number] Y Date: 10/02/2024 12:43 Dictated By: Yaneli Anand M.D. Signed By: 10/02/24 1246 DD/ 124 TD/TT: Supervisor Varnish: [facility] Radiology Study observation (narrative) [facility] US OB BPP W NON-STRESS Ordered By: Radiologist Radiology on 10-02-2024 [facility] Work Phone: US OB BPP W NON-STRESS on 09-25-2024 [place] [address] Ultrasound Report Signed Patient: CRISTIANE CELAYA MR#: [id number] : 1995 Acct:[id number] Age/Sex: 28 / F ADM Date: 09/25/24 Loc: US Attending Dr: Eleazar Lilly D.O. Ordering Physician: Eleazar Lilly D.O. Date of Service: 09/25/24 Procedure(s): US OB BPP w non-stress Accession Number(s): [id number] cc: Eleazar Lilly D.O.; EVELYN VU [place] [id number] Patient Name: CRISTIANE CELAYA MRN: [id number] date: 1995 Sex: F Assigned Patient Location: US Current Patient Location: US Accession/Order Number: [id number] Exam Date: 09/25/2024 16:34 Report Date: 09/25/2024 16:35 At the request of: ELEAZAR LILLY DO Procedure: US OB BPP w [...] Katz M.D. 09/25/2024 4:35 PM Dictation Location: [place] [address] Electronically authenticated by: [id number] Y Date: 09/25/2024 16:35 Dictated By: Ty Katz D.O. Signed By: 09/25/241636 DD/ 34 TD/TT: Supervisor Varnish: [facility] Radiology, Radiologist, - 09/25/2024 [place] [address] Ultrasound Report Signed Patient: CRISTIANE CELAYA MR#: [id number] : 1995 Acct:[id number] Age/Sex: 28 / F ADM Date: 09/25/24 Loc: Attending Dr: Eleazar Lilly D.O. Ordering Physician: Eleazar Lilly D.O. Date of Service: 09/25/24 Procedure(s): US OB BPP w non-stress Accession Number(s): [id number] cc: Eleazar Lilly D.O.; EVELYN VU [place] [address] Patient Name: CRISTIANE CELAYA MRN: [facility]:[id number] date: 1995 Sex: F Assigned Patient Location: Current Patient Location: Accession/Order Number: [id number] Exam Date: 09/25/2024 16:34 Report Date: 09/25/2024 16:35 At the request of: ELEAZAR LILLY DO Procedure: US OB BPP w [...] Katz M.D. 09/25/2024 4:35 PM Dictation Location: [email or web address] Electronically authenticated by: [id number] Y Date: 09/25/2024 16:35 Dictated By: Ty Katz D.O. Signed By: 09/25/241636 DD/ 34 TD/TT: Supervisor Varnish: [facility] Radiology Study observation (narrative) [facility] US OB BPP W NON-STRESS Ordered By: Radiologist Radiology on 09-25-2024 [facility] Work Phone: ALL CBC WITH AUTO DIFFon BASOPHILS ABSOLUTE AUTO 0 [facility] Basophils/100 WBC (Bld) 0.2 % 0.2 - 2.0 % [facility] Eosinophils/100 WBC (Bld) 0.9 % 0.9 - 7.0 % [facility] Erythrocyte distribution width (RBC) [Ratio] 12.9 % 11.0 - 15.0 % [facility] Hematocrit (Bld) [Volume fraction] 32.7 % Low 36.0 - 48.0 % [facility] Hemoglobin (Bld) [Mass/Vol] 11.6 g/dL Low 12.0 - 16.0 g/dL [facility] IMMATURE GRANULOCYTES ABS AUTO 0.07 High [facility] Immature granulocytes/100 WBC (Bld) 0.7 % High 0.0 - 0.5 % [facility] Interpretation and review of laboratory results Abnormal [facility] LYMPHOCYTES ABSOLUTE AUTO 1.8 [facility] Lymphocytes/100 WBC (Bld) 18 % Low 20.5 - 60.0 % [facility] MCH (RBC) [Entitic mass] 31.2 pg 26.7 - 34.0 pg [facility] MCHC (RBC) [Mass/Vol] 35.5 g/dL High 29.9 - 35.2 g/dL [facility] MCV (RBC) [Entitic vol] 87.9 fL 81.0 - 99.0 fL [facility] MONOCYTES ABSOLUTE AUTO 0.6 [facility] Monocytes/100 WBC (Bld) 6.4 % 1.7 - 12.0 % [facility] NEUTROPHILS ABSOLUTE AUTO 7.2 High [facility] Neutrophils/100 WBC (Bld) 73.8 % 43.0 - 75.0 % [facility] Platelet mean volume (Bld) [Entitic vol] 10.3 fL 9.5 - 13.5 fL [facility] TBH EO # 0.1 [facility] TB PLT 145 Low [facility] CCF CMP (CMP) (FOR REMOTE FH C USE)on 09-19-2024 Albumin [Mass/Vol] 2.5 g/dL Low 3.4 - 5.0 g/dL [facility] ALBUMIN GLOBULIN RATIO 0.6 [facility] ALP [Catalytic activity/Vol] 123 U/L High 46 - 116 U/L [facility] ALT [Catalytic activity/Vol] 17 U/L 14 - 59 U/L [facility] Anion gap [Moles/Vol] 12.6 mmol/L [facility] AST [Catalytic activity/Vol] 19 U/L 15 - 37 U/L [facility] Bilirubin [Mass/Vol] 0.4 mg/dL 0.2 - 1 .0 mg/dL [facility] Calcium [Mass/Vol] 8.9 mg/dL 8.5 - 10. 1 mg/dL [facility] Chloride [Moles/Vol] 104 mmol/L 98 - 10 7 mmol/L [facility] CO2 [Moles/Vol] 25.1 mmol/L 21.0 - 32.0 mmol/L [facility] Creatinine [Mass/Vol] 0.6 mg/dL 0.55 - 1.02 mg/dL [facility] GFR/1.73 sq M.predicted CKD-EPI (S/P/Bld) [Vol rate/Area] >60 >=60 mL/min/1.73 m 2 [facility] Globulin (S) [Mass/Vol] 3.9 g/dL [facility] Glucose [Mass/Vol] 101 mg/dL 74 - 106 mg/dL [facility] Interpretation and review of laboratory results Abnormal [facility] Potassium [Moles/Vol] 3.7 mmol/L 3.5 - 5.1 mmol/L [facility] Protein [Mass/Vol] 6.4 g/dL 6.4 - 8.2 g/dL [facility] Sodium [Moles/Vol] 138 mmol/L 136 - 145 mmol/L [facility] TB EGFR-NON AF TAIWANESE >60 >=60 mL/min/1.73 m 2 [facility] Urea nitrogen [Mass/Vol] 7 mg/dL 7.0 - 18.0 mg/dL [facility] Urea nitrogen/Creatinine [Mass ratio] 11.7 mg/mg [facility] OB GROWTHon 09-18-2024 [place] [address] Ultrasound Report Signed Patient: CRISTIANE CELAYA MR#: [id number] : 1995 Acct:[id number] Age/Sex: 28 / F ADM Date: 09/18/24 Loc: US Attending Dr: Eleazar Lilly D.O. Ordering Physician: Eleazar Lilly D.O. Date of Service: 09/18/24 Procedure(s): US OB growth Accession Number(s): [id number] cc: Eleazar Lilly D.O.; EVELYN VU [place] [address] Patient Name: CRISTIANE CELAYA MRN: [id number] date: 1995 Sex: F Assigned Patient Location: US Current Patient Location: US Accession/Order Number: [id number] Exam Date: 09/18/2024 16:23 Report Date: 09/18/2024 16:30 At the request of: ELEAZAR LILLY DO Procedure: US OB growth US [...] Smith M.D. 09/18/2024 4:30 PM Dictation Location: [place] [address] Electronically authenticated by: [id number] Y Date: 09/18/2024 16:30 Dictated By: Wally Smith M.D. Signed By: 09/18/24 1632 DD/ 163 TD/TT: Supervisor Varnish: [facility] Radiology, Radiologist, MD - 09/18/2024 [place] [address] Ultrasound Report Signed Patient: CRISTIANE CELAYA MR#: [id number] : 1995 Acct:[id number] Age/Sex: 28 / F ADM Date: 09/18/24 Loc: Attending Dr: Eleazar Lilly D.O. Ordering Physician: Eleazar Lilly D.O. Date of Service: 09/18/24 Procedure(s): US OB growth Accession Number(s): [id number] cc: Eleazar Lilly D.O.; EVELYN VU [address] [address] Patient Name: CRISTIANE CELAYA MRN: [facility]:[id number] date: 1995 Sex: F Assigned Patient Location: Current Patient Location: US Accession/Order Number: [id number] Exam Date: 09/18/2024 16:23 Report Date: 09/18/2024 16:30 At the request of: ELEAZAR VIJAYA DO Procedure: US OB growth US OB [...] Smith M.D. 09/18/2024 4:30 PM Dictation Location: [employer] Electronically authenticated by: [id number] Y Date: 09/18/2024 16:30 Dictated By: Wally Smith M.D. Signed By: 09/18/24 1632 DD/ 163 TD/TT: Supervisor Varnish: [facility] Radiology Study observation (narrative) [facility] US OB GROWTHOrdered By: Tico ologist Radiology on 09-18-2024 [facility] Work Phone: Urinalysis macro (dipstick) panel (U)on 09-13-2024 Bilirubin, UA Negative Negative - 4(70) +++ mg/dL [facility] Blood, UA Negative Negative - 50 Fuad/mcL [facility] Clarity, UA Clear [facility] Color, UA Yellow [facility] Glucose, UA Negative Negative - 2000(110) ++++ mg/dL [facility] Interpretation and review of laboratory results Abnormal [facility] Ketones, UA Positive Negative - 160(16) ++++ mg/dL [facility] Comment on above: 15 Leukocytes, UA Negative Negative - 500+++ Sandie/mcL [facility] Nitrite, UA Negative Negative - Positive [facility] pH, UA 6 5 - 9 [facility] Protein, UA Positive Negative - 2000(20) ++++ mg/dL [facility] Comment on above: 30 Spec Grav, UA 1.025 1 - 1.03 [facility] Urobilinogen, UA 1.0 0.2 - 12 mg/dL [facility] ALL CBC WITH AUTO DIFFon BASOPHILS ABSOLUTE AUTO 0 [facility] Basophils/100 WBC (Bld) 0.4 % 0.2 - 2.0 % [facility] Eosinophils/100 WBC (Bld) 0.4 % Low 0.9 - 7.0 % [facility] Erythrocyte distribution width (RBC) [Ratio] 12.4 % 11.0 - 15.0 % [facility] Hematocrit (Bld) [Volume fraction] 34.2 % Low 36.0 - 48.0 % [facility] Hemoglobin (Bld) [Mass/Vol] 11.9 g/dL Low 12.0 - 16.0 g/dL [facility] IMMATURE GRANULOCYTES ABS AUTO 0.17 High [facility] Immature granulocytes/100 WBC (Bld) 1.5 % High 0.0 - 0.5 % [facility] Interpretation and review of laboratory results Abnormal [facility] LYMPHOCYTES ABSOLUTE AUTO 2.1 [facility] Lymphocytes/100 WBC (Bld) 18.7 % Low 20.5 - 60.0 % [facility] MCH (RBC) [Entitic mass] 31.2 pg 26.7 - 34.0 pg [facility] MCHC (RBC) [Mass/Vol] 34.8 g/dL 29.9 - 35.2 g/dL [facility] MCV (RBC) [Entitic vol] 89.5 fL 81.0 - 99.0 fL [facility] MONOCYTES ABSOLUTE AUTO 0.6 [facility] Monocytes/100 WBC (Bld) 4.8 % 1.7 - 12.0 % [facility] NEUTROPHILS ABSOLUTE AUTO 8.4 High [facility] Neutrophils/100 WBC (Bld) 74.2 % 43.0 - 75.0 % [facility] Platelet mean volume (Bld) [Entitic vol] 9.9 fL 9.5 - 13.5 fL [facility] TBH EO # 0.1 [facility] PLT 148 Low [facility] RBC 3.82 Low [facility] WBC 11.4 High [facility] Urinalysis macro (dipstick) panel (U)on 08-20-2024 Bilirubin, UA Negative Negative - 4(70) +++ mg/dL [facility] Blood, UA Negative Negative - 50 Fuad/mcL [facility] Clarity, UA Clear [facility] Color, UA Yellow [facility] Glucose, UA Negative Negative - 2000(110) ++++ mg/dL [facility] Interpretation and review of laboratory results Normal [facility] Ketones, UA Negative Negative - 160(16) ++++ mg/dL [facility] Leukocytes, UA Negative Negative - 500+++ Sandie/mcL [facility] Nitrite, UA Negative Negative - Positive [facility] pH, UA 7 5 - 9 [facility] Protein, UA Negative Negative - 2000(20) ++++ mg/dL [facility] Spec Grav, UA 1.02 1 - 1.03 [facility] Urobilinogen, UA 0.2 0.2 - 12 mg/dL [facility] US OB LIMITED 1+ FETUSESon 0 - US OB LIMITED 1+ FETUSES EXAM: US OB LIMITED 1+ FETUSES HISTORY: [...] II, MD, PHD at 24-Jul-2024 12:32:57 AM [facility] Normal Not Available Comment on above: Order Comment: US OB INCOMPLETE ANATOMY W US OB TRANSVAGINAL Estimated Date of Delivery: 11/09/24 Gestational Age as of 06/26/2024: 20w4d Urinalysis macro (dipstick) panel (U)on 07-23-2024 Bilirubin, UA Negative Negative - 4(70) +++ mg/dL [facility] Blood, UA Negative Negative - 50 Fuad/mcL [facility] Clarity, UA Clear [facility] Color, UA Yellow [facility] Glucose, UA Negative Negative - 1999(110) ++++ mg/dL [facility] Interpretation and review of laboratory results Normal [facility] Ketones, UA Negative Negative - 160(16) ++++ mg/dL [facility] Leukocytes, UA Negative Negative - 500+++ Sandie/mcL [facility] Nitrite, UA Negative Negative - Positive [facility] pH, UA 6 5 - 9 [facility] Protein, UA Negative Negative - 1999(20) ++++ mg/dL [facility] Spec Grav, UA 1.02 1 - 1.03 [facility] Urobilinogen, UA 0.2 0.2 - 12 mg/dL [facility] AFP, SERUM, OPEN SPINA BIFID Aon 07-11-2024 AFP MOM 2.63 . [facility] AFP VALUE 133.2 ng/mL . [facility] COMMENT: Comment . [facility] Comment on above: Ronit Moncada , Ph.D., [facility] Director References: Available Upon Request. Multiples Of Median Cutoffs For AFP Elevations Giles 2.5 Black 2.8 IDD 2.0 Twins 4.5 Abbreviation Definitions IDD - Insulin Dep Diabetes OSBR - Open Spina Bifida Risk For further inquiries contact [facility] at [phone]. This test was developed and its performance characteristics determined by [employer]. It has not been cleared or approved by the Food and Drug Administration. Performed at: [facility] [address] [place], [place] [id number] Complaint Manager: Darion Albrecht [facility], Phone: [phone] GEST. AGE ON COLLECTION DATE 18.0 . weeks [facility] GESTAT. AGE BASED ON As provided . [facility] Comment on above: Recalculations are n ot recommended when gestational dating by LMP and ultrasound are within 10 days. INSULIN DEP DIABETES No . [facility] INTERPRETATION Comment . [facility] Comment on above: Interpretation: Scre en Positive for OSB This patient is at [...] genetic counseling and amniocentesis are appropriate options. Interpretation and review of laboratory results Abnormal [facility] [age] [facility] MULTIPLE GESTATION No . [facility] OSBR RISK 1 IN 225 . [facility] RACE . [facility] RESULTS Report . [facility] TEST RESULTS: Positive Abnormal . [facility] WEIGHT 119 . lbs [facility] N N ULTRASOUND [id number] 18 N 1 119 N N N N N White/ [facility] Urinalysis macro (dipstick) panel (U)on 06-26-2024 Bilirubin, UA Negative Negative - 4(70) +++ mg/dL [facility] Blood, UA Negative Negative - 50 Fuad/mcL [facility] Clarity, UA Clear [facility] Color, UA Yellow [facility] Glucose, UA Negative Negative - 2000(110) ++++ mg/dL [facility] Interpretation and review of laboratory results Normal [facility] Ketones, UA Negative Negative - 160(16) ++++ mg/dL [facility] Leukocytes, UA Negative Negative - 500+++ Sandie/mcL [facility] Nitrite, UA Negative Negative - Positive [facility] pH, UA 6 5 - 9 [facility] Protein, UA Negative Negative - 2000(20) ++++ mg/dL [facility] Spec Grav, UA 1.025 1 - 1.03 [facility] Urobilinogen, UA 0.2 0.2 - 12 mg/dL [facility] No Panel InformationOrdered By: Radiologist Radiology on 06-23-2024 [facility] Work Phone: No Panel Informationon 06-23 Radiology Study observation (narrative) [facility] US OB ANATOMYon 06-23-[address] [address] Ultrasound Report Signed Patient: CRISTIANE CELAYA MR#: [id number] : 1995 Acct:[id number] Age/Sex: 28 / F ADM Date: 06/22/24 Loc: US Attending Dr: Cheryl Baugh Ordering Physician: Cheryl Baugh Date of Service: 06/22/24 Procedure(s): US OB anatomy Accession Number(s): [id number] cc: Cheryl Baugh; EVELYN VU [address] [address] Patient Name: CRISTIANE CELAYA MRN: [id number] date: 1995 Sex: F Assigned Patient Location: US Current Patient Location: Accession/Order Number: [id number] Exam Date: 06/22/2024 17:16 Report Date: 06/23/2024 07:57 At the request of: CHERYL BAUGH Procedure: US OB anatomy EXAMINATION: US OB anatomy, US OB cervical length HISTORY: SCREENING, , FOR ANATOMIC SURVEY Z36.89 COMPARISON: No relevant comparison available. TECHNIQUE: Transabdominal sonographic examination was performed for obstetrical and evaluation. FINDINGS: Number: 1 Heart Rate: 142.86 bpm H.B. /min Amniotic Fluid Volume: Subjectively normal position: Cephalic presentation, longitudinal lie Placental Location: POSTERIOR, the placental edge is 2.3 cm from the internal cervical os. Grade 0. Cervix Length: 4.22 cm , closed Normal anatomy: Lateral ventricles, nose, lips, orbits, four-chamber heart, diaphragm, stomach, kidneys, abdominal cord insertion, bladder, umbilical arteries, three-vessel cord, spine, extremities Suboptimal visualization: Posterior fossa, RVOT, LVOT Nonvisualization: Cerebellum BIOMETRY: BPD: 4.77 cm; 20 weeks 3 days; 67.20 % HC: 17.17 cm; 19 weeks 5 days; 30.50 % AC: 14.47 cm; 19 weeks 6 days; 37 % FL: 3.34 cm; 20 weeks 3 days; 59.10 % EFW:330.72 g; 49.80 % FL/AC: 23.09 FL/BPD: 70.08 HC/AC: 1.19 GESTATIONAL AGE: Age by EDC: 20 weeks 0 days JESUS by EDC: 2024-11-09 Age by current US: 20 weeks 1 day JESUS by current US: 2024-11-08 US/US OB anatomy IMPRESSION: Suboptimal and nonvisualization detailed above Low lying placenta Closed cervix measuring 4.2 cm in length *Reference: [employer] Practice Guideline for the performance of Obstetric Ultrasound Examinations, February 06, 2007. Electronically authenticated by: JACK MCCONNELL Date: 06/23/2024 07:57 Dictated By: Jack Mcconnell M.D. Signed By: 06/23/24 08 DD/ 0757 TD/TT: Supervisor Varnish: [facility] Radiology, Radiologist, - 06/23/2024 [place] [address] Ultrasound Report Signed Patient: CRISTIANE CELAYA MR#: [id number] : 1995 Acct:[id number] Age/Sex: 28 / F ADM Date: 06/22/24 Loc: US Attending Dr: Cheryl Baugh Ordering Physician: Cheryl Baugh Date of Service: 06/22/24 Procedure(s): US OB anatomy Accession Number(s): [id number] cc: Cheryl Baugh; EVELYN VU [address] [address] Patient Name: CRISTIANE CELAYA MRN: [facility]:[id number] date: 1995 Sex: F Assigned Patient Location: US Current Patient Location: Accession/Order Number: [id number] Exam Date: 06/22/2024 17:16 Report Date: 06/23/2024 07:57 At the request of: CHERYL BAUGH Procedure: US OB anatomy EXAMINATION: US OB anatomy, US OB cervical length HISTORY: SCREENING, , FOR ANATOMIC SURVEY Z36.89 COMPARISON: No relevant comparison available. TECHNIQUE: Transabdominal sonographic examination was performed for obstetrical and evaluation. FINDINGS: Number: 1 Heart Rate: 142.86 bpm H.B. /min Amniotic Fluid Volume: Subjectively normal position: Cephalic presentation, longitudinal lie Placental Location: POSTERIOR, the placental edge is 2.3 cm from the internal cervical os. Grade 0. Cervix Length: 4.22 cm , closed Normal anatomy: Lateral ventricles, nose, lips, orbits, four-chamber heart, diaphragm, stomach, kidneys, abdominal cord insertion, bladder, umbilical arteries, three-vessel cord, spine, extremities Suboptimal visualization: Posterior fossa, RVOT, LVOT Nonvisualization: Cerebellum BIOMETRY: BPD: 4.77 cm; 20 weeks 3 days; 67.20 % HC: 17.17 cm; 19 weeks 5 days; 30.50 % AC: 14.47 cm; 19 weeks 6 days; 37 % FL: 3.34 cm; 20 weeks 3 days; 59.10 % EFW:330.72 g; 49.80 % FL/AC: 23.09 FL/BPD: 70.08 HC/AC: 1.19 GESTATIONAL AGE: Age by EDC: 20 weeks 0 days JESUS by EDC: 2024-11-09 Age by current US: 20 weeks 1 day JESUS by current US: 2024-11-08 US/US OB anatomy IMPRESSION: Suboptimal and nonvisualization detailed above Low lying placenta Closed cervix measuring 4.2 cm in length *Reference: [employer] Practice Guideline for the performance of Obstetric Ultrasound Examinations, February 06, 2007. Electronically authenticated by: JACK MCCONNELL Date: 06/23/2024 07:57 Dictated By: Jack Mcconnell M.D. Signed By: 06/23/24 0800 DD/ 0757 TD/TT: Supervisor Varnish: [facility] US OB CERVICAL LENGTHon 06-09 [place] [address] Ultrasound Report Signed Patient: CRISTIANE CELAYA MR#: [id number] : 1995 Acct:[id number] Age/Sex: 28 / F ADM Date: 06/22/24 Loc: US Attending Dr: Cheryl Baugh Ordering Physician: Cheryl Baugh Date of Service: 06/22/24 Procedure(s): US OB cervical length Accession Number(s): [id number] cc: Cheryl Baugh; EVELYN VU [address] [address] Patient Name: CRISTIANE CELAYA MRN: [facility]:[id number] date: 1995 Sex: F Assigned Patient Location: US Current Patient Location: Accession/Order Number: [id number] Exam Date: 06/22/2024 17:16 Report Date: 06/23/2024 07:57 At the request of: CHERYL BAUGH Procedure: US OB cervical length EXAMINATION: US OB anatomy, US OB cervical length HISTORY: SCREENING, , FOR ANATOMIC SURVEY Z36.89 COMPARISON: No relevant comparison available. TECHNIQUE: Transabdominal sonographic examination was performed for obstetrical and evaluation. FINDINGS: Number: 1 Heart Rate: 142.86 bpm H.B. /min Amniotic Fluid Volume: Subjectively normal position: Cephalic presentation, longitudinal lie Placental Location: POSTERIOR, the placental edge is 2.3 cm from the internal cervical os. Grade 0. Cervix Length: 4.22 cm , closed Normal anatomy: Lateral ventricles, nose, lips, orbits, four-chamber heart, diaphragm, stomach, kidneys, abdominal cord insertion, bladder, umbilical arteries, three-vessel cord, spine, extremities Suboptimal visualization: Posterior fossa, RVOT, LVOT Nonvisualization: Cerebellum BIOMETRY: BPD: 4.77 cm; 20 weeks 3 days; 67.20 % HC: 17.17 cm; 19 weeks 5 days; 30.50 % AC: 14.47 cm; 19 weeks 6 days; 37 % FL: 3.34 cm; 20 weeks 3 days; 59.10 % EFW:330.72 g; 49.80 % FL/AC: 23.09 FL/BPD: 70.08 HC/AC: 1.19 GESTATIONAL AGE: Age by EDC: 20 weeks 0 days JESUS by EDC: 2024-11-09 Age by current US: 20 weeks 1 day JESUS by current US: 2024-11-08 US/US OB cervical length IMPRESSION: Suboptimal and nonvisualization detailed above Low lying placenta Closed cervix measuring 4.2 cm in length *Reference: [employer] Practice Guideline for the performance of Obstetric Ultrasound Examinations, February 06, 2007. Electronically authenticated by: JACK MCCONNELL Date: 06/23/2024 07:57 Dictated By: Jack Mcconnell M.D. Signed By: 06/23/24 0800 DD/ 0757 TD/TT: Supervisor Varnish: [facility] Radiology, Radiologist, - 06/23/[address] [address] Ultrasound Report Signed Patient: CRISTIANE CELAYA MR#: [id number] : 1995 Acct:[id number] Age/Sex: 28 / F ADM Date: 06/22/24 Loc: US Attending Dr: Cheryl Baugh Ordering Physician: Cheryl Baugh Date of Service: 06/22/24 Procedure(s): US OB cervical length Accession Number(s): [id number] cc: Cheryl Baugh; EVELYN VU [address] [address] Patient Name: CRISTIANE CELAYA MRN: [facility]:[id number] date: 1995 Sex: F Assigned Patient Location: US Current Patient Location: Accession/Order Number: [id number] Exam Date: 06/22/2024 17:16 Report Date: 06/23/2024 07:57 At the request of: CHERYL BAUGH Procedure: US OB cervical length EXAMINATION: US OB anatomy, US OB cervical length HISTORY: SCREENING, , FOR ANATOMIC SURVEY Z36.89 COMPARISON: No relevant comparison available. TECHNIQUE: Transabdominal sonographic examination was performed for obstetrical and evaluation. FINDINGS: Number: 1 Heart Rate: 142.86 bpm H.B. /min Amniotic Fluid Volume: Subjectively normal position: Cephalic presentation, longitudinal lie Placental Location: POSTERIOR, the placental edge is 2.3 cm from the internal cervical os. Grade 0. Cervix Length: 4.22 cm , closed Normal anatomy: Lateral ventricles, nose, lips, orbits, four-chamber heart, diaphragm, stomach, kidneys, abdominal cord insertion, bladder, umbilical arteries, three-vessel cord, spine, extremities Suboptimal visualization: Posterior fossa, RVOT, LVOT Nonvisualization: Cerebellum BIOMETRY: BPD: 4.77 cm; 20 weeks 3 days; 67.20 % HC: 17.17 cm; 19 weeks 5 days; 30.50 % AC: 14.47 cm; 19 weeks 6 days; 37 % FL: 3.34 cm; 20 weeks 3 days; 59.10 % EFW:330.72 g; 49.80 % FL/AC: 23.09 FL/BPD: 70.08 HC/AC: 1.19 GESTATIONAL AGE: Age by EDC: 20 weeks 0 days JESUS by EDC: 2024-11-09 Age by current US: 20 weeks 1 day JESUS by current US: 2024-11-08 US/US OB cervical length IMPRESSION: Suboptimal and nonvisualization detailed above Low lying placenta Closed cervix measuring 4.2 cm in length *Reference: [employer] Practice Guideline for the performance of Obstetric Ultrasound Examinations, February 06, 2007. Electronically authenticated by: JACK MCCONNELL Date: 06/23/2024 07:57 Dictated By: Jack Mcconnell M.D. Signed By: 06/23/24 0800 DD/ 0757 TD/TT: Supervisor Varnish: [facility] IGP,APTIMA HPV,AGE GDLNon AGE GDLN ACOG TESTING Note . [facility] Comment on above: TESTS RESULT FLAG UN ITS REF RANGE LAB Clinician Provided Cytology Information Source.............Cervix No. of containers..01 ThinPrep Vial Age Algo ACOG Jessica... FLAG LEGEND: L-Low Normal,H-High Normal,LL-Alert Low,HH-Alert High <-Panic Low,>-Panic High,A-Abnormal,AA-Critical Abnormal Performed at: 01 =G [facility] [place] [place] [address] [place] [address] Bri Keenan MD, IGP, RFX APTIMA HPV ASCU Note . [facility] Comment on above: TESTS RESULT FLAG UN ITS REF RANGE LAB DIAGNOSIS: 02 NEGATIVE FOR INTRAEPITHELIAL LESION OR MALIGNANCY. Specimen adequacy: 02 Satisfactory for evaluation. No endocervical component is identified. Performed by: 02 Ramin Farrell, Associate Chemist ([facility]) . 02 Note: Note 02 The Pap [...] <-Panic Low,>-Panic High,A-Abnormal,AA-Critical Abnormal Performed at: 02 WB [facility] [address] [place] [address] Bri Keenan MD, Performed at: =G - [facility] [address] [id number] Complaint Manager: Bri Keenan MD, Phone: [phone] Performed at: - [facility] [address] [id number] Complaint Manager: Bri Keenan MD, Phone: [phone] [facility] Urinalysis macro (dipstick) panel (U)on 05-28-2024 Bilirubin, UA Negative Negative - 4(70) +++ mg/dL [facility] Blood, UA Negative Negative - 50 Fuad/mcL [facility] Clarity, UA Clear [facility] Color, UA Yellow [facility] Glucose, UA Negative Negative - 1999(110) ++++ mg/dL [facility] Interpretation and review of laboratory results Normal [facility] Ketones, UA Negative Negative - 160(16) ++++ mg/dL [facility] Leukocytes, UA Negative Negative - 500+++ Sandie/mcL [facility] Nitrite, UA Negative Negative - Positive [facility] pH, UA 5.5 5 - 9 [facility] Protein, UA Negative Negative - 1999(20) ++++ mg/dL [facility] Spec Grav, UA 1.02 1 - 1.03 [facility] Urobilinogen, UA 1.0 0.2 - 12 mg/dL [facility] Urinalysis macro (dipstick) panel (U)on 04-30-2024 Bilirubin, UA Negative Negative - 4(70) +++ mg/dL [facility] Blood, UA Negative Negative - 50 Fuad/mcL [facility] Healthcare Clarity, UA Clear [facility] Color, UA Yellow [facility] Glucose, UA Negative Negative - 1999(110) ++++ mg/dL [facility] Interpretation and review of laboratory results Abnormal [facility] Ketones, UA Positive Negative - 160(16) ++++ mg/dL [facility] Comment on above: trace Leukocytes, UA Negative Negative - 500+++ Sandie/mcL [facility] Nitrite, UA Negative Negative - Positive [facility] pH, UA 5.5 5 - 9 [facility] Protein, UA Negative Negative - 1999(20) ++++ mg/dL [facility] Spec Grav, UA 1.025 1 - 1.03 [facility] Urobilinogen, UA 0.2 0.2 - 12 mg/dL [facility] Basophils Auto (Bld) [#/Vol] on 04-16-2024 Basophils (Bld) [#/Vol] Automated basophil count 0.0-0.1 [facility] Basophils/100 WBC Auto (Bld) on 04-16-2024 Basophils/100 WBC (Bld) Automated basophil % 0.2-2.0 [facility] Buprenorphine [Presence] in Urineon 04-16-2024 Buprenorphine Ql (U) Buprenorphine [Presence] in Urine NEGATIVE [facility] Comment on above: DRUG CLASS TEST SYST EM CUT-OFF CONCENTRATIONS ARE ASFOLLOWS:AMP (Amphetamine): 500 ng/mLBAR (Barbiturates): 200 ng/mLBZO (Benzodiazepines): 150 ng/mLBUP (Buprenorphine): 10 ng/mLCOC (Cocaine): 150 ng/mLmAMP (Methamphetamine): 500 ng/mLMTD (Methadone): 200 ng/mLOPI (Opiates): 100 ng/mLOXY (Oxycodone): 100 ng/mLPCP (Phencyclidine): 25 ng/mLTHC (Cannabinoids): 50 ng/mLTCA (Trycyclic Antidepressants): 300 ng/mL Eosinophils/100 WBC Auto (Bl d)on 04-16-2024 Eosinophils/100 WBC (Bld) Automated eosinophil % Low 0.9-7.0 [facility] Erythrocyte distribution wid th Auto (RBC) [Ratio]on 04-16-2024 Erythrocyte distribution width (RBC) [Ratio] Erythrocyte distribution width [Ratio] by Automated count 11.0-15.0 [facility] Glucose mean value [Mass/vol ume] in Blood Estimated from glycated hemoglobinon 04-16-2024 Average glucose Estimated from glycated hemoglobin (Bld) [Mass/Vol] Glucose mean value [Mass/volume] in Blood Estimated from glycated hemoglobin [facility] HBV surface Ag IA Qlon 04-16 Hepatitis B Surface Antigen Negative Negative [facility] Comment on above: Performed at: [address] [id number] Director: Sheldon Polo PhD, Phone: [phone] HIV 1 and HIV-2 antibody ass ay with HIV-1 p24 antigen detectionon 04-16-2024 HIV 1+2 Ab+HIV1 p24 Ag IA Ql HIV 1 and HIV-2 antibody assay with HIV-1 p24 antigen detection Non Reactive [facility] Comment on above: HIV-1/HIV-2 antibodi es and HIV-1 p24 antigen were NOTdetected. There is no laboratory evidence of HIV infection.HIV NegativePerformed at: [facility] [address] [id number] Director: Sheldon Polo PhD, Phone: [phone] Hematocrit Auto (Bld) [Volum e fraction]on 04-16-2024 Hematocrit (Bld) [Volume fraction] Hematocrit [Volume Fraction] of Blood by Automated count 36.0-48.0 [facility] Hemoglobin [Mass/volume] in Bloodon 04-16-2024 Hemoglobin (Bld) [Mass/Vol] Hemoglobin [Mass/volume] in Blood 12.0-16.0 [facility] Laboratory - Drug toxicology on 04-16-2024 Amphetamines Ql (U) Negative NEGATIVE [facility] Benzodiazepines Ql (U) Negative NEGATIVE [facility] Cocaine Ql (U) Negative NEGATIVE [facility] Opiates Ql (U) Negative NEGATIVE [facility] Phencyclidine Ql (U) Negative NEGATIVE [facility] Laboratory - Hematology and Cell countson 04-16-2024 HbA1c (Bld) [Mass fraction] 4.8 % 4.5-6.2 [facility] Comment on above: ADA RECOMMENDED LIMI T 4.0 - 6.0ADA THERAPEUTIC TARGET < 7.0ACTION SUGGESTED> 7.0 Immature granulocytes/100 WBC (Bld) 0.6 % High 0.0-0.5 [facility] Leukocytes [#/volume] correc leonidas for nucleated erythrocytes in Blood by Automated counon 04-16-2024 WBC corrected for nucl RBC Auto (Bld) [#/Vol] Leukocytes [#/volume] corrected for nucleated erythrocytes in Blood by Automated coun 4.0-11.0 [facility] Lymphocytes Auto (Bld) [#/Vo l]on 04-16-2024 Lymphocytes (Bld) [#/Vol] Lymphocytes [#/volume] in Blood by Automated count 1.2-3.8 [facility] Lymphocytes/100 WBC Auto (Bl d)on 04-16-2024 Lymphocytes/100 WBC (Bld) Lymphocytes/100 leukocytes in Blood by Automated count Low 20.5-60.0 [facility] MCH Auto (RBC) [Entitic mass ]on 04-16-2024 MCH (RBC) [Entitic mass] MCH [Entitic mass] by Automated count 26.7-34.0 [facility] MCHC Auto (RBC) [Mass/Vol]on 04-16-2024 MCHC (RBC) [Mass/Vol] MCHC [Mass/volume] by Automated count High 29.9-35.2 [facility] MCV Auto (RBC) [Entitic vol] on 04-16-2024 MCV (RBC) [Entitic vol] MCV [Entitic volume] by Automated count 81.0-99.0 [facility] MLR HEMOGLOBIN A1Con 024 Glucose [Mass/Vol] 91 mg/dL [facility] HbA1c (Bld) [Mass fraction] 4.8 % 4.5 - 6.2 % [facility] Comment on above: ADA RECOMMENDED LIMI T 4.0 - 6.0 ADA THERAPEUTIC TARGET < 7.0 ACTION SUGGESTED > 7.0 [facility] Methadone [Presence] in Urin e by Screen methodon 04-16-2024 Methadone Screen Ql (U) Methadone [Presence] in Urine by Screen method NEGATIVE [facility] Monocytes Auto (Bld) [#/Vol] on 04-16-2024 Monocytes (Bld) [#/Vol] Automated blood monocyte count 0.3-0.8 [facility] Monocytes/100 WBC Auto (Bld) on 04-16-2024 Monocytes/100 WBC (Bld) Automated monocyte % 1.7-12.0 [facility] Neutrophils Auto (Bld) [#/Vo l]on 04-16-2024 Neutrophils (Bld) [#/Vol] Neutrophils [#/volume] in Blood by Automated count High 1.4-6.5 [facility] Neutrophils/100 WBC Auto (Bl d)on 04-16-2024 Neutrophils/100 WBC (Bld) Automated neutrophil % 43.0-75.0 [facility] No Panel Informationon 04-16 Eosinophils # (Auto) 0.1 10 3/uL 0.0-0.7 [facility] Hepatitis C Interpretation Comment . [facility] Comment on above: Not infected with HC V unless early or acute infection issuspected (which may be delayed in an immunocompromisedindividual), or other evidence exists to indicate HCVinfection. Immature Granulocyte # (Auto) 0.05 10 3/uL High 0.00-0.03 [facility] RPR Quantitative Confirmation Non Reactive titer NonRea<1:1 [facility] Comment on above: Please Note: This te st does not meet current guidelines forscreening and diagnosis of syphilis. This test isintended for following treatment response in patients beingtreated for syphilis infection. To screen for syphilisinfection, a reflex cascade that includes both RPR and atreponema-specific assay should be utilized, such asTreponema pallidum (Syphilis) Screening [place] (015827) orRapid Plasma Reagin (RPR) Test With Reflex to QuantitativeRPR and Confirmatory Treponema pallidum Antibodies(102100).Performed at: [facility] [place] [id number] Director: Sheldon Polo PhD, Phone: [phone] Rubella IgG Antibody 7.20 index Immune >0.99 [facility] Comment on above: Non-immune <0.90 Equ ivocal 0.90 - 0.99 Immune >0.99 Urine Barbiturates Screen Negative NEGATIVE [facility] Urine Marijuana (THC) Screen Negative NEGATIVE [facility] Urine Methamphetamines Screen Negative NEGATIVE [facility] Platelet mean volume Auto (B ld) [Entitic vol]on 04-16-2024 Platelet mean volume (Bld) [Entitic vol] Platelet mean volume [Entitic volume] in Blood by Automated count 9.5-13.5 [facility] Platelets Auto (Bld) [#/Vol] on 04-16-2024 Platelets (Bld) [#/Vol] Platelets [#/volume] in Blood by Automated count 150-450 [facility] RBC Auto (Bld) [#/Vol]on RBC (Bld) [#/Vol] Erythrocytes [#/volume] in Blood by Automated count 4.20-5.40 [facility] Serum or plasma hepatitis C virus antibody signal/cutoff ratio by immunoassay (relation 04-16-2024 HCV Ab Signal/Cutoff IA [Rel units/Vol] Serum or plasma hepatitis C virus antibody signal/cutoff ratio by immunoassay (relati Non Reactive [facility] Urine tricyclic antidepressa nt measurementon 04-16-2024 Tricyclic antidepressants (U) [Mass/Vol] Urine tricyclic antidepressant measurement NEGATIVE [facility] oxyCODONE+oxyMORphone [Prese nce] in Urine by Screen methodon 04-16-2024 oxyCODONE+oxyMORphone Screen Ql (U) oxyCODONE+oxyMORphone [Presence] in Urine by Screen method NEGATIVE [facility] BOX TESTon 04-13-2024 BOX TEST SENT OUT 04/13/2024 [facility] [address] [facility] [address] [facility] HCG ( test) Ql (U)o n 03-23-2024 Interpretation and review of laboratory results Abnormal [facility] Preg Test, Ur Positive Negative [facility] Urinalysis macro (dipstick) panel (U)on 03-23-2024 Bilirubin, UA Negative Negative - 4(70) +++ mg/dL [facility] Blood, UA Negative Negative - 50 Fuad/mcL [facility] Clarity, UA Clear [facility] Color, UA Yellow [facility] Glucose, UA Negative Negative - 1999(110) ++++ mg/dL [facility] Interpretation and review of laboratory results Abnormal [facility] Ketones, UA Positive Negative - 160(16) ++++ mg/dL [facility] Leukocytes, UA Negative Negative - 500+++ Sandie/mcL [facility] Nitrite, UA Negative Negative - Positive [facility] pH, UA 5.5 5 - 9 [facility] Protein, UA Negative Negative - 1999(20) ++++ mg/dL [facility] Spec Grav, UA 1.03 1 - 1.03 [facility] Urobilinogen, UA 0.2 0.2 - 12 mg/dL [facility] Laboratory - Chemistry and C hemistry - challengeon 03-17-2024 Bilirubin Ql (U) Negative NEGATIVE [facility] Glucose (U) [Mass/Vol] Negative NEGATIVE [facility] Ketones Ql (U) Negative NEGATIVE [facility] pH (U) 7.0 [pH] 5.0-9.0 [facility] Specific gravity (U) [Rel density] 1.020 1.005-1.025 [facility] Urobilinogen Qn (U) 1.0 {Chanel'U}/dL 0.2-1.0 [facility] Laboratory - Specimen inform ationon 03-17-2024 Appearance (U) CLEAR CLEAR [facility] Color (U) LT. YELLOW YELLOW [facility] Laboratory - Urinalysison Leukocyte esterase Test strip Ql (U) TRACE Abnormal NEGATIVE [facility] Mucus Ql (Urine sed) TRACE Abnormal NONE SEEN [facility] Nitrite Ql (U) Negative NEGATIVE [facility] Protein Ql (U) Negative NEG/TRACE [facility] No Panel Informationon 03-17 Human Chorionic Gonadotropin, Quant 47058 mIU/mL [facility] Comment on above: 5-50 0.2-1 OUGL10-54 0 1-2 SXGBB383-7,000 2-3 CKPZZ065-71,000 3-4 WEEKS1,000-50,000 4-5 WEEKS10,000-100,000 5-6 WEEKS15,000-200,000 6-8 WEEKS10,000-100,000 2-3 MONTHS Miscellaneous Test Comment See comment [facility] Comment on above: Specimen Source: UCC - Urine,Clean Catch - Urine CC - 200.100 Urine Bacteria MODERATE #/HPF Abnormal NONE SEEN [facility] Urine Culture Reflexed YES [facility] Urine Culture Result 1 \R\ Urine Culture, Routine [facility] Urine Microscopic Review YES [facility] Urine Occult Blood MODERATE Abnormal NEGATIVE [facility] Urine Other Casts NONE SEEN #/LPF NONE SEEN [facility] Urine Other Crystals None Seen #/HPF None Seen [facility] Urine RBC 2-5 #/HPF Abnormal 0-2 [facility] Urine Squamous Epithelial Cells MODERATE #/LPF Abnormal NONE/RARE [facility] Urine WBC 0-2 #/HPF Abnormal NONE SEEN [facility] HCG ( test) Ql (U)o n 03-14-2024 Interpretation and review of laboratory results Abnormal [facility] Preg Test, Ur Positive Negative [facility] Urinalysis macro (dipstick) panel (U)on 03-14-2024 Bilirubin, UA Positive Negative - 4(70) +++ mg/dL [facility] Comment on above: small Blood, UA Positive Negative - 50 Fuad/mcL [facility] Comment on above: moderate Clarity, UA Clear [facility] Color, UA Yellow [facility] Glucose, UA Negative Negative - 2000(110) ++++ mg/dL [facility] Interpretation and review of laboratory results Abnormal [facility] Ketones, UA Positive Negative - 160(16) ++++ mg/dL [facility] Comment on above: 40 Leukocytes, UA Negative Negative - 500+++ Sandie/mcL [facility] Nitrite, UA Negative Negative - Positive [facility] pH, UA 5.5 5 - 9 [facility] Protein, UA Negative Negative - 2000(20) ++++ mg/dL [facility] Spec Grav, UA 1.03 1 - 1.03 [facility] Urobilinogen, UA 0.2 0.2 - 12 mg/dL [facility] No Panel Informationon 03-08 Human Chorionic Gonadotropin, Quant 2190 mIU/mL [facility] Comment on above: 5-50 0.2-1 QCSP71-24 0 1-2 VMCEY998-9,000 2-3 LZKKL796-61,000 3-4 WEEKS1,000-50,000 4-5 WEEKS10,000-100,000 5-6 WEEKS15,000-200,000 6-8 WEEKS10,000-100,000 2-3 MONTHS [facility] PREG QUANT HCGon 024 HCG QUANTITATIVE 2190 mIU/mL [facility] Comment on above: 5-50 0.2-1 WEEK 50-500 1-2 WEEKS 100-5,000 2-3 WEEKS 500-10,000 3-4 WEEKS 1,000-50,000 4-5 WEEKS 10,000-100,000 5-6 WEEKS 15,000-200,000 6-8 WEEKS 10,000-100,000 2-[facility] Panel Informationon 03-02 Human Chorionic Gonadotropin, Quant 67 mIU/mL [facility] Comment on above: 5-50 0.2-1 CCER46-34 0 1-2 YWDKM963-7,000 2-3 PUKPR765-06,000 3-4 WEEKS1,000-50,000 4-5 WEEKS10,000-100,000 5-6 WEEKS15,000-200,000 6-8 WEEKS10,000-100,000 2-3 MONTHS No Panel Informationon 02-28 Human Chorionic Gonadotropin, Quant 30 mIU/mL [facility] Comment on above: 5-50 0.2-1 YASW18-41 0 1-2 VUPQY642-8,000 2-3 IICFJ188-32,000 3-4 WEEKS1,000-50,000 4-5 WEEKS10,000-100,000 5-6 WEEKS15,000-200,000 6-8 WEEKS10,000-100,000 2-3 MONTHS Basophils Auto (Bld) [#/Vol] on 02-27-2024 Basophils (Bld) [#/Vol] Automated basophil count 0.0-0.1 [facility] Basophils/100 WBC Auto (Bld) on 02-27-2024 Basophils/100 WBC (Bld) Automated basophil % 0.2-2.0 [facility] Eosinophils/100 WBC Auto (Bl d)on 02-27-2024 Eosinophils/100 WBC (Bld) Automated eosinophil % Low 0.9-7.0 [facility] Erythrocyte distribution wid th Auto (RBC) [Ratio]on 02-27-2024 Erythrocyte distribution width (RBC) [Ratio] Erythrocyte distribution width [Ratio] by Automated count 11.0-15.0 [facility] Estimated glomerular filtrat ion rate (GFR) non- Americanon 02-27-2024 GFR/1.73 sq M.predicted among non-blacks MDRD (S/P/Bld) [Vol rate/Area] Estimated glomerular filtration rate (GFR) non- >=60 mL/min/1.73 m 2 [facility] HCG ( test) Amira cowart Ql (U)on 02-27-2024 HCG ( test) Ql (U) Urine human chorionic gonadotropin (hCG) detection by immunoassay Abnormal NEGATIVE [facility] Hematocrit Auto (Bld) [Volum e fraction]on 02-27-2024 Hematocrit (Bld) [Volume fraction] Hematocrit [Volume Fraction] of Blood by Automated count 36.0-48.0 [facility] Hemoglobin [Mass/volume] in Bloodon 02-27-2024 Hemoglobin (Bld) [Mass/Vol] Hemoglobin [Mass/volume] in Blood 12.0-16.0 [facility] Laboratory - Chemistry and C hemistry - challengeon 02-27-2024 Calcium [Mass/Vol] 9.4 mg/dL 8.5-10.1 [facility] Chloride [Moles/Vol] 104 mmol/L 98-107 [facility] CO2 [Moles/Vol] 22.6 mmol/L 21.0-32.0 [facility] Creatinine [Mass/Vol] 0.79 mg/dL 0.55-1.02 [facility] GFR/1.73 sq M.predicted MDRD (S/P/Bld) [Vol rate/Area] mL/min/{1.73_m2} >=60 mL/min/1.73 m 2 [facility] Glucose [Mass/Vol] 88 mg/dL 74-106 [facility] Potassium [Moles/Vol] 3.4 mmol/L Low 3.5-5.1 [facility] Sodium [Moles/Vol] 139 mmol/L 136-145 [facility] Urea nitrogen [Mass/Vol] 10.0 mg/dL 7.0-18.0 [facility] Urea nitrogen/Creatinine [Mass ratio] 12.7 mg/mg [facility] Bilirubin Ql (U) Negative NEGATIVE [facility] Glucose (U) [Mass/Vol] Negative NEGATIVE [facility] Ketones Ql (U) 15 mg/dL Abnormal NEGATIVE [facility] pH (U) 6.0 [pH] 5.0-9.0 [facility] Specific gravity (U) [Rel density] 1.025 1.005-1.025 [facility] Urobilinogen Qn (U) 0.2 {Chanel'U}/dL 0.2-1.0 [facility] Laboratory - Hematology and Cell countson 02-27-2024 Immature granulocytes/100 WBC (Bld) 0.1 % 0.0-0.5 [facility] Laboratory - Specimen inform ationon 02-27-2024 Appearance (U) CLEAR CLEAR [facility] Color (U) LT. YELLOW YELLOW [facility] Laboratory - Urinalysison Leukocyte esterase Test strip Ql (U) Negative NEGATIVE [facility] Nitrite Ql (U) Negative NEGATIVE [facility] Protein Ql (U) Negative NEG/TRACE [facility] Leukocytes [#/volume] correc leonidas for nucleated erythrocytes in Blood by Automated counon 02-27-2024 WBC corrected for nucl RBC Auto (Bld) [#/Vol] Leukocytes [#/volume] corrected for nucleated erythrocytes in Blood by Automated coun 4.0-11.0 [facility] Lymphocytes Auto (Bld) [#/Vo l]on 02-27-2024 Lymphocytes (Bld) [#/Vol] Lymphocytes [#/volume] in Blood by Automated count 1.2-3.8 [facility] Lymphocytes/100 WBC Auto (Bl d)on 02-27-2024 Lymphocytes/100 WBC (Bld) Lymphocytes/100 leukocytes in Blood by Automated count 20.5-60.0 [facility] MCH Auto (RBC) [Entitic mass ]on 02-27-2024 MCH (RBC) [Entitic mass] MCH [Entitic mass] by Automated count 26.7-34.0 [facility] MCHC Auto (RBC) [Mass/Vol]on 02-27-2024 MCHC (RBC) [Mass/Vol] MCHC [Mass/volume] by Automated count High 29.9-35.2 [facility] MCV Auto (RBC) [Entitic vol] on 02-27-2024 MCV (RBC) [Entitic vol] MCV [Entitic volume] by Automated count 81.0-99.0 [facility] Monocytes Auto (Bld) [#/Vol] on 02-27-2024 Monocytes (Bld) [#/Vol] Automated blood monocyte count 0.3-0.8 [facility] Monocytes/100 WBC Auto (Bld) on 02-27-2024 Monocytes/100 WBC (Bld) Automated monocyte % 1.7-12.0 [facility] Neutrophils Auto (Bld) [#/Vo l]on 02-27-2024 Neutrophils (Bld) [#/Vol] Neutrophils [#/volume] in Blood by Automated count 1.4-6.5 [facility] Neutrophils/100 WBC Auto (Bl d)on 02-27-2024 Neutrophils/100 WBC (Bld) Automated neutrophil % 43.0-75.0 [facility] No Panel Informationon 02-26 Eosinophils # (Auto) 0.1 10 3/uL 0.0-0.7 [facility] Human Chorionic Gonadotropin, Quant 16 mIU/mL [facility] Comment on above: 5-50 0.2-1 [id number] 0 1-2 OKURJ024-9,000 2-3 QXOUE316-08,000 3-4 WEEKS1,000-50,000 4-5 WEEKS10,000-100,000 5-6 WEEKS15,000-200,000 6-8 WEEKS10,000-100,000 2-3 MONTHS Immature Granulocyte # (Auto) 0.01 10 3/uL 0.00-0.03 [facility] Urine Microscopic Review NO [facility] Urine Occult Blood Negative NEGATIVE [facility] Platelet mean volume Auto (B ld) [Entitic vol]on 02-27-2024 Platelet mean volume (Bld) [Entitic vol] Platelet mean volume [Entitic volume] in Blood by Automated count 9.5-13.5 [facility] Platelets Auto (Bld) [#/Vol] on 02-27-2024 Platelets (Bld) [#/Vol] Platelets [#/volume] in Blood by Automated count 150-450 [facility] RBC Auto (Bld) [#/Vol]on RBC (Bld) [#/Vol] Erythrocytes [#/volume] in Blood by Automated count 4.20-5.40 [facility] Serum or plasma anion gap de terminationon 02-27-2024 Anion gap [Moles/Vol] Serum or plasma an ion gap determination [facility] No Panel Informationon 02-20 Human Chorionic Gonadotropin, Quant <1 mIU/mL [facility] Comment on above: 5-50 0.2-1 KQGQ08-34 0 1-2 FLMMY859-2,000 2-3 TKTKJ801-48,000 3-4 WEEKS1,000-50,000 4-5 WEEKS10,000-100,000 5-6 WEEKS15,000-200,000 6-8 WEEKS10,000-100,000 2-3 MONTHS URETHRITIS/DISCHARGE PLUS VA GINITIS (HTRX)on 02-10-2024 ATOPOBIUM VAGINAE 0.000 [facility] ATOPOBIUM VAGINAE Not detected [facility] BVAB 2,3 (BACTERIAL VAGINOSIS ASSOCIATED BACTERIA 2, 3); MOBILUNCUS SPP 0.000 [facility] BVAB 2,3 (BACTERIAL VAGINOSIS ASSOCIATED BACTERIA 2, 3); MOBILUNCUS SPP Not detected [facility] ALICIA ALBICANS, PARAPSILOSIS, TROPICALIS 0.000 [facility] ALICIA ALBICANS, PARAPSILOSIS, TROPICALIS Not detected [facility] ALICIA GLABRATA 0.000 [facility] ALICIA GLABRATA Not detected [facility] ALICIA KRUSEI 0.000 [facility] ALICIA KRUSEI Not detected [facility] CHLAMYDIA TRACHOMATIS 0.000 [facility] CHLAMYDIA TRACHOMATIS Not detected [facility] GARDNERELLA VAGINALIS 0.000 [facility] GARDNERELLA VAGINALIS Not detected [facility] MEGASPHAERA (TYPES 1, 2) 0.000 [facility] MEGASPHAERA (TYPES 1, 2) Not detected [facility] MYCOPLASMA GENITALIUM 0.000 [facility] MYCOPLASMA GENITALIUM Not detected [facility] NEISSERIA GONORRHOEAE 0.000 [facility] NEISSERIA GONORRHOEAE Not detected [facility] TRICHOMONAS VAGINALIS 0.000 [facility] TRICHOMONAS VAGINALIS Not detected N [facility] HCG ( test) Ql (U)o n 02-08-2024 Interpretation and review of laboratory results Normal [facility] Preg Test, Ur Negative [facility] Urinalysis macro (dipstick) panel (U)on 02-08-2024 Bilirubin, UA Negative Negative - 4(70) +++ mg/dL [facility] Blood, UA Negative Negative - 50 Fuad/mcL [facility] Clarity, UA Clear [facility] Color, UA Yellow [facility] Glucose, UA Negative Negative - 2000(110) ++++ mg/dL [facility] Interpretation and review of laboratory results Normal [facility] Ketones, UA Negative Negative - 160(16) ++++ mg/dL [facility] Leukocytes, UA Negative Negative - 500+++ Sandie/mcL [facility] Nitrite, UA Negative Negative - Positive [facility] pH, UA 7.5 5 - 9 [facility] Protein, UA Negative Negative - 2000(20) ++++ mg/dL [facility] Spec Grav, UA 1.020 1 - 1.03 [facility] Urobilinogen, UA 0.2 0.2 - 12 mg/dL [facility] Vaginitis Plus (VG+)on 02-01 Atopobium Vaginae Low - 0 Normal . [facility] Comment on above: Result Comment: This test was developed and its performance characteristics determined by [facility]. It has not been cleared or approved by the Food and Drug Administration. Performed By: #### V AGINITIS+ #### [facility] , BVAB2 Low - 0 Normal . [facility] Comment on above: Result Comment: This test was developed and its performance characteristics determined by [facility]. It has not been cleared or approved by the Food and Drug Administration. Performed By: #### V AGINITIS+ #### [facility] , Alicia Albicans, ELDON Positive Critically abnormal Negative [facility] Comment on above: Result Comment: This test was developed and its performance characteristics determined by [facility]. It has not been cleared or approved by the Food and Drug Administration. Performed By: #### V AGINITIS+ #### [facility] , Alicia Glabrata, ELDON Negative Normal Negative [facility] Comment on above: Result Comment: This test was developed and its performance characteristics determined by [facility]. It has not been cleared or approved by the Food and Drug Administration. PERFORMED BY: [address] [place] [place] [address] PATHOLOGIST CONSUMER EDUCATION SPECIALIST IRENE TURPIN M.D. Performed By: #### V AGINITIS+ #### [facility] , Chlamydia Trachomotis, ELDON Negative Normal Negative [facility] Comment on above: Performed By: #### V AGINITIS+ #### [facility] , Megasphaera Low - 0 Normal . [facility] Comment on above: Result Comment: [...] Neisseria Gonorrhoeae, ELDON Negative Normal Negative [facility] Comment on above: Result Comment: Perf ormed at: =G - [facility] [address] [id number] Complaint Manager: Bri Keenan MD, Phone: [phone] Performed By: #### V AGINITIS+ #### [facility] , Tric Vag ELDON Negative Normal Negative [facility] Comment on above: Performed By: #### V AGINITIS+ #### [facility] , Basophils Auto (Bld) [#/Vol] on 01-19-2024 Basophils (Bld) [#/Vol] 0.0 10 3/uL 0.0-0.1 [facility] Basophils/100 WBC Auto (Bld) on 01-19-2024 Basophils/100 WBC (Bld) 0.4 % 0.2-2.0 [facility] Eosinophils/100 WBC Auto (Bl d)on 01-19-2024 Eosinophils/100 WBC (Bld) 1.0 % 0.9-7.0 [facility] Erythrocyte distribution wid th Auto (RBC) [Ratio]on 01-19-2024 Erythrocyte distribution width (RBC) [Ratio] 11.7 % 11.0-15.0 [facility] Estimated glomerular filtrat ion rate (GFR) non- Americanon 01-19-2024 GFR/1.73 sq M.predicted among non-blacks MDRD (S/P/Bld) [Vol rate/Area] mL/min/{1.73_m2} >=60 [facility] Hematocrit Auto (Bld) [Volum e fraction]on 01-19-2024 Hematocrit (Bld) [Volume fraction] 39.6 % 36.0-48.0 [facility] Hemoglobin [Mass/volume] in Bloodon 01-19-2024 Hemoglobin (Bld) [Mass/Vol] 14.3 g/dL 12.0-16.0 [facility] Laboratory - Chemistry and C hemistry - challengeon 01-19-2024 Calcium [Mass/Vol] 8.7 mg/dL 8.5-10.1 [facility] Chloride [Moles/Vol] 100 mmol/L 98-107 [facility] CO2 [Moles/Vol] 27.5 mmol/L 21.0-32.0 [facility] Creatinine [Mass/Vol] 0.88 mg/dL 0.55-1.02 [facility] GFR/1.73 sq M.predicted MDRD (S/P/Bld) [Vol rate/Area] mL/min/{1.73_m2} >=60 [facility] Glucose [Mass/Vol] 94 mg/dL 74-106 [facility] Potassium [Moles/Vol] 3.3 mmol/L Low 3.5-5.1 [facility] Sodium [Moles/Vol] 135 mmol/L Low 136-145 [facility] Urea nitrogen [Mass/Vol] 12.0 mg/dL 7.0-18.0 [facility] Urea nitrogen/Creatinine [Mass ratio] 13.6 mg/mg [facility] Laboratory - Hematology and Cell countson 01-19-2024 Immature granulocytes/100 WBC (Bld) 0.0 % 0.0-0.5 [facility] Leukocytes [#/volume] correc leonidas for nucleated erythrocytes in Blood by Automated counon 01-19-2024 WBC corrected for nucl RBC Auto (Bld) [#/Vol] 4.8 10 3/uL 4.0-11.0 [facility] Lymphocytes Auto (Bld) [#/Vo l]on 01-19-2024 Lymphocytes (Bld) [#/Vol] 1.2 10 3/uL 1.2-3.8 [facility] Lymphocytes/100 WBC Auto (Bl d)on 01-19-2024 Lymphocytes/100 WBC (Bld) 25.1 % 20.5-60.0 [facility] MCH Auto (RBC) [Entitic mass ]on 01-19-2024 MCH (RBC) [Entitic mass] 30.4 pg 26.7-34.0 [facility] MCHC Auto (RBC) [Mass/Vol]on 01-19-2024 MCHC (RBC) [Mass/Vol] 36.1 g/dL High 29.9-35.2 [facility] MCV Auto (RBC) [Entitic vol] on 01-19-2024 MCV (RBC) [Entitic vol] 84.1 fL 81.0-99.0 [facility] Monocytes Auto (Bld) [#/Vol] on 01-19-2024 Monocytes (Bld) [#/Vol] 0.6 10 3/uL 0.3-0.8 [facility] Monocytes/100 WBC Auto (Bld) on 01-19-2024 Monocytes/100 WBC (Bld) 11.6 % 1.7-12.0 [facility] Neutrophils Auto (Bld) [#/Vo l]on 01-19-2024 Neutrophils (Bld) [#/Vol] 3.0 10 3/uL 1.4-6.5 [facility] Neutrophils/100 WBC Auto (Bl d)on 01-19-2024 Neutrophils/100 WBC (Bld) 61.9 % 43.0-75.0 [facility] No Panel Informationon 01-18 Eosinophils # (Auto) 0.1 10 3/uL 0.0-0.7 [facility] Human Chorionic Gonadotropin, Qual Negative NEGATIVE [facility] Immature Granulocyte # (Auto) 0.00 10 3/uL 0.00-0.03 [facility] Platelet mean volume Auto (B ld) [Entitic vol]on 01-19-2024 Platelet mean volume (Bld) [Entitic vol] 11.2 fL 9.5-13.5 [facility] Platelets Auto (Bld) [#/Vol] on 01-19-2024 Platelets (Bld) [#/Vol] 137 10 3/uL Low 150-450 [facility] RBC Auto (Bld) [#/Vol]on RBC (Bld) [#/Vol] 4.71 10 6/uL 4.20-5.40 [facility] Serum or plasma anion gap de terminationon 01-19-2024 Anion gap [Moles/Vol] 10.8 mmol/L Fi [facility] Choriogonadotropin.beta subu nit ( test) [Presence] in Urineon 01-03-2024 Beta HCG ( test) Ql (U) Negative [facility] Influenza virus A and B and SARS-CoV-2 (COVID-19) RNA panel - Respiratory system specon 01-03-2024 Influenza virus A and B RNA and SARS-CoV-2 (COVID-19) N gene panel ELDON+probe (Resp) Negative [facility] Laboratory - Microbiology an d Antimicrobial susceptibilityon 01-03-2024 SARS-CoV-2 (COVID-19) RNA ELDON+probe Ql (Unsp spec) Negative [facility] No Panel Informationon 01-02 POC Influenza B (ELDON) Negative [facility] No Panel InformationOrdered By: Evelyn Vu on 01-03-2024 Quick Strep (POC) [facility] Quick Strepon 10-02-2022 S. pyogenes Org specific cx Ql (Throat) Negative [facility] Other Quick Strep [employer] Other COVID19(IDNOW)on 11-30-2019 COVID19(IDNOW) NOT DETECTED Normal NOT DETECTED [facility] Comment on above: Result Comment: Nega tive results do not preclude SARS-CoV-2 infection and should not be used as the sole basis for treatiment or other patient management. ENHANCED CONTACT, AND DROPLET ISOLATION IS REQUIRED FOR INPATIENTS WITH SARS-CoV-2. Performed By: #### C OVID19(IDNOW) #### [facility] [address] [place] [address] Age at specimen collection = Normal [facility] Comment on above: Performed By: #### C OVID19(IDNOW) #### [facility] [address] [place] [address] Hematologyon 05-11-2019 Basophils (Bld) [#/Vol] 0.0 10*3/uL 0.0-0.1 [facility] Basophils/100 WBC (Bld) 0.40 % 0.0-1.0 [facility] Eosinophils (Bld) [#/Vol] 0.10 10*3/uL 0.0-0.5 [facility] Eosinophils/100 WBC (Bld) 1.30 % 0.0-7.0 [facility] Hematocrit (Bld) [Volume fraction] 41.30 % 35.7-47.1 [facility] Hemoglobin (Bld) [Mass/Vol] 14.10 g/dL 11.9-15.7 [facility] Lymphocytes (Bld) [#/Vol] 2.20 10*3/uL 0.9-3.1 [facility] Lymphocytes/100 WBC (Bld) 29.30 % 15.0-46.0 [facility] MCH (RBC) [Entitic mass] 29.90 pg 23.2-33.3 [facility] MCV (RBC) [Entitic vol] 87.50 fL 83.4-101.4 [facility] Monocytes (Bld) [#/Vol] 0.60 10*3/uL 0.3-1.0 [facility] Monocytes/100 WBC (Bld) 8.60 % 4.0-12.0 [facility] Neutrophils (Bld) [#/Vol] 4.50 10*3/uL 1.8-7.9 [facility] [employer] Neutrophils/100 WBC (Bld) 60.0 % 43.0-76.0 [facility] [employer] Platelets (Bld) [#/Vol] 160.0 10*3/uL 150-400 [facility] RBC (Bld) [#/Vol] 4.720 10*6/uL 3.72-5.24 [facility] WBC (Bld) [#/Vol] 7.40 10*3/uL 3.9-10.3 [facility] Otheron 05-11-2019 Erythrocyte distribution width (RBC) [Ratio] 12.10 % 11.5-15.5 [facility] Immature granulocytes (Bld) [#/Vol] 0.030 10*3/uL 0.00-0.06 [facility] Immature granulocytes/100 WBC (Bld) 0.40 % 0.0-0.5 [facility] MCHC (RBC) [Mass/Vol] 34.10 g/dL 32.0-36.0 [facility] Z2 Platelet mean volume (Bld) [Entitic vol] 11.10 fL 8.3-11.5 [employer] [facility] COMMENT [employer] [facility] <9.0 0.0-8.9 [facility] Z2 303.0 0.0-17.9 [facility] Z2 <36.0 0.0-35.9 [facility] Z2 38.9 0.0-17.9 [facility] Z2 Thyroidon 05-11-2019 TSH Qn 1.96 m[IU]/L 0.50-4.00 [facility] Basic Metabolic Profon 04-20 (cont.) Normal [facility] Comment on above: Result Comment: Aver age GFR for 20-29 years old: 116 mL/min/1.73sq mChronic Kidney Disease: <60 mL/min/1.73sq mKidney failure: <15 mL/min/1.73sq meGFR calculated using average adult body mass. Additional eGFR calculator available at:http://www.[employer]/multiple_crcl_2012.htm Performed By: #### B MP, CBC ####[address] [place] [address] Anion gap 3 molar conc 11 mmol/L Normal - [facility] Comment on above: Performed By: #### B MP, CBC ####[address] [place] [address] BUN/CRE Ratio 18 Normal 9-20 [facility] Comment on above: Performed By: #### B MP, CBC ####[address] [place] [address] Calcium mass conc 9.2 mg/dL Normal 8.6-10.4 [facility] Comment on above: Performed By: #### B MP, CBC ####[address] [place] [address] Chloride molar conc 102 mmol/L Normal 98-107 [facility] Comment on above: Performed By: #### B MP, CBC ####[address] [place] [address] CO2 molar conc 26 mmol/L Normal 20-31 [facility] Comment on above: Performed By: #### B MP, CBC ####[address] [place] [address] Creatinine mass conc 0.65 mg/dL Normal 0.50-0.90 [facility] Comment on above: Performed By: #### B MP, CBC ####[address] [place] [address] GFR, Amer >60 Normal >60 [facility] Comment on above: Performed By: #### B MP, CBC ####[address] [place] [address] GFR,non Amer >60 Normal >60 [facility] Comment on above: Performed By: #### B MP, CBC ####[address] [place] [address] Glucose mass conc 89 mg/dL Normal 70-99 [facility] Comment on above: Performed By: #### B MP, CBC ####[address] [place] [address] Potassium molar conc 3.8 mmol/L Normal 3.7-5.3 [facility] Comment on above: Performed By: #### B MP, CBC ####[address] [place] [address] Sodium molar conc 139 mmol/L Normal 135-144 [facility] Comment on above: Performed By: #### B MP, CBC ####[address] [place] [address] Staging: Normal [facility] Comment on above: Result Comment: Stag e 1: Some kidney damage normal GFRStage 2: Mild kidney damage GFR 60-89Stage 3: Moderate kidney damage GFR 30-59Stage 4: Severe kidney damage GFR 15-29Stage 5: Severe kidney damage GFR <15ESRD - chronic treatment by dialysis or transplant Performed By: #### B MP, CBC ####[address] [place] [address] Urea nitrogen mass conc 12 mg/dL Normal 6-20 [facility] Comment on above: Performed By: #### B MP, CBC ####[address] [place] [address] CBCon 04-20-2018 Erythrocyte distribution width Auto Ratio (RBC) 12.1 % Normal 11.8-14.4 [facility] Comment on above: Performed By: #### B MP, CBC ####[address] [place] [address] Hematocrit Auto Volume Fraction (Bld) 42.6 % Normal 36.3-47.1 [facility] Comment on above: Performed By: #### B MP, CBC ####[address] [place] [address] Hemoglobin mass conc (Bld) 14.7 g/dL Normal 11.9-15.1 [facility] Comment on above: Performed By: #### B MP, CBC ####[address] [place] [address] MCH Auto Entitic mass (RBC) 30.2 pg Normal 25.2-33.5 [facility] Comment on above: Performed By: #### B MP, CBC ####[address] [place] [address] MCHC Auto mass conc (RBC) 34.5 g/dL Normal 28.4-34.8 [facility] Comment on above: Performed By: #### B MP, CBC ####[address] [place] [address] MCV Auto Entitic volume (RBC) 87.7 fL Normal 82.6-102.9 [facility] Comment on above: Performed By: #### B MP, CBC ####[address] [place] [address] NRBC Automated 0.0 per 100 WBC Normal 0.0 [facility] Comment on above: Performed By: #### B MP, CBC ####[address] [place] [address] Platelet mean volume Auto Entitic volume (Bld) 10.8 fL Normal 8.1-13.5 [facility] Comment on above: Performed By: #### B MP, CBC ####[address] [place] [address] Platelets Auto #/vol (Bld) 142 10*3/uL Normal 138-453 [facility] Comment on above: Performed By: #### B MP, CBC ####[address] [place] [address] RBC Auto #/vol (Bld) 4.86 10*6/uL Normal 3.95-5.11 [facility] Comment on above: Performed By: #### B MP, CBC ####[address] [place] [address] WBC Auto #/vol (Bld) 6.2 10*3/uL Normal 4.5-13.5 [facility] Comment on above: Performed By: #### B MP, CBC ####[address] [place] [address] HCG, ,Urineon 04-20 HCG.beta subunit ( test) Ql (U) Negative Normal NEG [facility] Comment on above: Result Comment: Spec imens with hCG levels near the threshold of the test (25 mIU/mL) may give a negative or indeterminate result. In such cases, another test should be performed with a new specimen in 48-72 hours. If early is suspected clinically in this setting, correlation with quantitative serum b-hCG level is suggested.[facility] has confirmed the use of plasma for this test. This has not been cleared or approved by the U.S. Food and Drug Administration. The FDA has determined that such clearance is not necessary. Performed By: #### U HCG ####[address] [place] [address] UA w/Reflex Cultureon 2017 Acetoacetic Acid,Ur Negative Normal NEG [facility] Comment on above: Performed By: #### U AX, UMICAO ####[address] [place] [address] Bilirubin, SemiQt,Ur Negative Normal NEG [facility] Comment on above: Performed By: #### U AX, UMICAO ####[address] [place] [address] Color YELLOW Normal YEL [facility] Comment on above: Performed By: #### U AX, UMICAO ####[address] [place] [address] Glucose,Semi-qnt,Ur Negative Normal [facility] Comment on above: Performed By: #### U AX, UMICAO ####[address] [place] [address] Hemoglobin, Ur Negative Normal NEG [facility] Comment on above: Performed By: #### U AX, UMICAO ####[address] [place] [address] Leuckocyte Esterase Negative Normal [facility] Comment on above: Performed By: #### U AX, UMICAO ####[address] [place] [address] Nitrite,Ur Negative Normal [facility] Comment on above: Performed By: #### U AX, UMICAO ####[address] [place] [address] PH,Ur 6.0 Normal 5.0-9.0 [facility] Comment on above: Performed By: #### DOMENICO EDWARDSO ####[address] [place] [address] Protein, Semi-qnt,Ur Negative Normal NEG [facility] Comment on above: Performed By: #### DOMENICO EDWARDSO ####[address] [place] [address] Spec. [place],Ur 1.025 High 1.010-1.020 [facility] Comment on above: Performed By: #### DOMENICO EDWARDSO ####[address] [place] [address] Turbidity CLEAR Normal CLEAR [facility] Comment on above: Performed By: #### DOMENICO EDWARDSO ####[address] [place] [address] Urobilinogen,Ur Normal Normal NORM [facility] Comment on above: Performed By: #### DOMENICO EDWARDSO ####[address] [place] [address] Comment NOT REPORTED Normal [facility] Comment on above: Performed By: #### TABATHA EDWARDSICAO ####[address] [place] [address] Urinalysis,Microon 8 ----- Normal [facility] Comment on above: Performed By: #### TABATHA EDWARDSICAO ####[address] [place] [address] Bacteria 1+ Abnormal NONE [facility] Comment on above: Performed By: #### U PALOMO UMICAO ####[address] [place] [address] Epithelial cells 2 TO 5 Normal 0-25 [facility] Comment on above: Performed By: #### U AX, UMICAO ####[address] [place] [address] RBC Test strip #/vol (U) None Normal 0-2 [facility] Comment on above: Performed By: #### U AX, UMICAO ####[address] [place] [address] Urine WBC's 0 TO 2 Normal 0-5 [facility] Comment on above: Performed By: #### U AX, UMICAO ####[address] [place] [address] Amorphous Sediment NOT REPORTED Normal NONE [facility] Comment on above: Performed By: #### U AX, UMICAO ####[address] [place] [address] Casts NOT REPORTED Normal [facility] Comment on above: Performed By: #### U AX, UMICAO ####[address] [place] [address] Crystals NOT REPORTED Normal NONE [facility] Comment on above: Performed By: #### U AX, UMICAO ####[address] [place] [address] Epithelial, Renal NOT REPORTED Normal 0 [facility] Comment on above: Performed By: #### U AX, UMICAO ####[address] [place] [address] Mucus Strands NOT REPORTED Normal NONE [facility] Comment on above: Performed By: #### U AX, UMICAO ####[address] [place] [address] Other Observations NOT REPORTED Normal [facility] Comment on above: Performed By: #### U AX, UMICAO ####[address] [place] [address] Trichomonas NOT REPORTED Normal NONE [facility] Comment on above: Performed By: #### U CADEN CULVER ####[address] [place] [address] Yeast NOT REPORTED Normal NONE [facility] Comment on above: Performed By: #### U CADEN CULVER ####[address] [place] [address] XR LUMBAR SPINE (2-3 VIEWS)o n [...] by:RIVER Jassoigned by:Phil Messer MD04/20/18Final result Normal [facility] Otheron 03-08-2018 Negative [facility] Otheron 02-03-2018 Negative [facility] Otheron 01-30-2018 Negative [facility] 12-28-2017 Cholesterol [Mass/Vol] 156.0 mg/dL 0-200 [facility] Cholesterol in HDL [Mass/Vol] 54.0 mg/dL 50-100 [facility] Cholesterol in LDL [Mass/Vol] 79.0 mg/dL 0-130 [facility] Triglyceride [Mass/Vol] 116.0 mg/dL 30-150 [facility] Metabolic Panelon 12-28-2017 Albumin [Mass/Vol] 4.70 g/dL 3.7-4.5 [facility] ALP [Catalytic activity/Vol] 83.0 U/L 31-155 [employer] ALT [Catalytic activity/Vol] 15.0 U/L 0-50 [employer] AST [Catalytic activity/Vol] 19.0 U/L 0-40 [employer] [employer] Bilirubin [Mass/Vol] 0.70 mg/dL 0.0-1.0 [facility] Protein [Mass/Vol] 7.80 g/dL 6.3-7.9 [employer] Otheron 12-28-2017 Albumin/Globulin [Mass ratio] 1.5 {ratio} 1.0-2.4 [facility] Cholesterol in VLDL [Mass/Vol] 23.0 mg/dL 0-39 [facility] Cholesterol.total/Cho lesterol in HDL [Mass ratio] 3 {ratio} [facility] Negative [employer] CBCon 07-28-2017 Erythrocyte distribution width Auto Ratio (RBC) 11.8 % Normal 11.8-14.4 [facility] Comment on above: Performed By: #### C SEN, CP ####[address] [place] [address] Hematocrit Auto Volume Fraction (Bld) 41.2 % Normal 36.3-47.1 [facility] Comment on above: Performed By: #### C SEN, CP ####[address] [place] [address](928) Hemoglobin mass conc (Bld) 14.1 g/dL Normal 11.9-15.1 [facility] Comment on above: Performed By: #### C BC, CP ####[address] [place] [address] MCH Auto Entitic mass (RBC) 28.5 pg Normal 25.2-33.5 [facility] Comment on above: Performed By: #### C BC, CP ####[address] [place] [address] MCHC Auto mass conc (RBC) 34.2 g/dL Normal 28.4-34.8 [facility] Comment on above: Performed By: #### C BC, CP ####[address] [place] [address] MCV Auto Entitic volume (RBC) 83.2 fL Normal 82.6-102.9 [facility] Comment on above: Performed By: #### C BC, CP ####[address] [place] [address] NRBC Automated 0.0 per 100 WBC Normal 0.0 [facility] Comment on above: Result Comment: Perf ormed at [address] [place] [address] Performed By: #### C BC, CP ####[address] [place] [address] Platelet mean volume Auto Entitic volume (Bld) 9.9 fL Normal 8.1-13.5 [facility] Comment on above: Performed By: #### C BC, CP ####[address] [place] [address] Platelets Auto #/vol (Bld) 230 10*3/uL Normal 138-453 [facility] Comment on above: Performed By: #### C BC, CP ####[address] [place] [address] RBC Auto #/vol (Bld) 4.95 10*6/uL Normal 3.95-5.11 [facility] Comment on above: Performed By: #### C SEN, CP ####[address] [place] [address] WBC Auto #/vol (Bld) 11.8 10*3/uL Normal 4.5-13.5 [facility] Comment on above: Performed By: #### C SEN, CP ####[address] [place] [address] Comp Metabolic Profon 2017 (cont.) Normal [facility] Comment on above: Result Comment: Aver age GFR for 20-29 years old: 116 mL/min/1.73sq mChronic Kidney Disease: <60 mL/min/1.73sq mKidney failure: <15 mL/min/1.73sq meGFR calculated using average adult body mass. Additional eGFR calculator available at:http://www.[employer]/multiple_crcl_2012.htm Performed By: #### C SEN, CP ####[address] [place] [address] Albumin mass conc 4.5 g/dL Normal 3.5-5.2 [facility] Comment on above: Performed By: #### Debora CHATTERJEE, CP ####[address] [place] [address] Albumin/Globulin mass ratio 1.3 {ratio} Normal 1.0-2.5 [facility] Comment on above: Performed By: #### C SEN, CP ####[address] [place] [address] Alkaline Phos 81 U/L Normal 35-104 [facility] Comment on above: Performed By: #### C SEN, CP ####[address] [place] [address] ALT enzyme act/vol 23 U/L Normal 5-33 [facility] Comment on above: Performed By: #### C BC, CP ####[address] [place] [address] Anion gap 3 molar conc 13 mmol/L Normal 9-17 [facility] Comment on above: Performed By: #### C BC, CP ####[address] [place] [address] AST enzyme act/vol 23 U/L Normal <32 [facility] Comment on above: Performed By: #### C BC, CP ####[address] [place] [address] Bilirubin Ql (U) 0.23 mg/dL Low 0.3-1.2 [facility] Comment on above: Performed By: #### C BC, CP ####[address] [place] [address] BUN/CRE Ratio 17 Normal 9-20 [facility] Comment on above: Performed By: #### C BC, CP ####[address] [place] [address] Calcium mass conc 9.5 mg/dL Normal 8.6-10.4 [facility] Comment on above: Performed By: #### C BC, CP ####[address] [place] [address] Chloride molar conc 101 mmol/L Normal 98-107 [facility] Comment on above: Performed By: #### C BC, CP ####[address] [place] [address] CO2 molar conc 23 mmol/L Normal 20-31 [facility] Comment on above: Performed By: #### C BC, CP ####[address] [place] [address] Creatinine mass conc 0.69 mg/dL Normal 0.50-0.90 [facility] Comment on above: Performed By: #### C BC, CP ####[facility] [place] [address] GFR, Amer >60 Normal >60 [facility] Comment on above: Performed By: #### C BC, CP ####[facility] [place] [address] GFR,non Amer >60 Normal >60 [facility] Comment on above: Performed By: #### C BC, CP ####[address] [place] [address] Glucose mass conc 99 mg/dL Normal 70-99 [facility] Comment on above: Performed By: #### C BC, CP ####[address] [place] [address] Potassium molar conc 3.8 mmol/L Normal 3.7-5.3 [facility] Comment on above: Performed By: #### C BC, CP ####[address] [place] [address] Protein mass conc 8.0 g/dL Normal 6.4-8.3 [facility] Comment on above: Performed By: #### C BC, CP ####[address] [place] [address] Sodium molar conc 137 mmol/L Normal 135-144 [facility] Comment on above: Performed By: #### C BC, CP ####[address] [place] [address] Staging: Normal [facility] Comment on above: Result Comment: Stag e 1: Some kidney damage normal GFRStage 2: Mild kidney damage GFR 60-89Stage 3: Moderate kidney damage GFR 30-59Stage 4: Severe kidney damage GFR 15-29Stage 5: Severe kidney damage GFR <15ESRD - chronic treatment by dialysis or transplantPerformed at [address] [place] [address] Performed By: #### C BC, CP ####[address] [place] [address] Urea nitrogen mass conc 12 mg/dL Normal 6-20 [facility] Comment on above: Performed By: #### C BC, CP ####[address] [place] [address] HCG, ,Urineon 07-28 HCG.beta subunit ( test) Ql (U) Negative Normal NEG [facility] Comment on above: Result Comment: Spec imens with hCG levels near the threshold of the test (25 mIU/mL) may give a negative or indeterminate result. In such cases, another test should be performed with a new specimen in 48-72 hours. If early is suspected clinically in this setting, correlation with quantitative serum b-hCG level is suggested.[facility] has confirmed the use of plasma for this test. This has not been cleared or approved by the U.S. Food and Drug Administration. The FDA has determined that such clearance is not necessary.Performed at [address] [place] [address] Performed By: #### U HCG, UA ####[address] [place] [address] Urinalysis, Routineon 2017 Acetoacetic Acid,Ur Negative Normal NEG [facility] Comment on above: Performed By: #### U HCG, UA ####[address] [place] [address] Bilirubin, SemiQt,Ur Negative Normal NEG [facility] Comment on above: Performed By: #### U HCG, UA ####[address] [place] [address] Color YELLOW Normal YEL [facility] Comment on above: Performed By: #### U HCG, UA ####[address] [place] [address] Glucose,Semi-qnt,Ur Negative Normal NEG [facility] Comment on above: Performed By: #### U HCG, UA ####[address] [place] [address] Hemoglobin, Ur Negative Normal NEG [facility] Comment on above: Performed By: #### U HCG, UA ####[address] [place] [address] Leuckocyte Esterase Negative Normal NEG [facility] Comment on above: Result Comment: Perf ormed at [address] [place] [address] Performed By: #### U HCG, UA ####[address] [place] [address] Nitrite,Ur Negative Normal NEG [facility] Comment on above: Performed By: #### U HCG, UA ####[address] [place] [address] PH,Ur 6.0 Normal 5.0-9.0 [facility] Comment on above: Performed By: #### U HCG, UA ####[address] [place] [address] Protein mass conc Negative Normal NEG [facility] Comment on above: Performed By: #### U HCG, UA ####[address] [place] [address] Spec. [place],Ur 1.025 High 1.010-1.020 [facility] Comment on above: Performed By: #### U HCG, UA ####[address] [place] [address] Turbidity CLEAR Normal CLEAR [facility] Comment on above: Performed By: #### U HCG, UA ####[address] [place] [address] Urobilinogen,Ur Normal Normal NORM [facility] Comment on above: Performed By: #### U HCG, UA ####[facility] [place] [address] Comment NOT REPORTED Normal [facility] Comment on above: Performed By: #### U HCG, UA ####[facility] [place] [address] [facility] 8280 Cholesterol mass conc 175.0 mg/dL 0-200 [facility] [employer] Triglyceride mass conc 58.0 mg/dL 30-150 [facility] Hematologyon 06-07-2016 Basophils #/vol (Bld) 0.0 10*3/uL 0.0-0.1 [facility] [employer] Basophils/100 WBC (Bld) 0.30 % 0.0-1.0 [facility] Eosinophils #/vol (Bld) 0.10 10*3/uL 0.0-0.5 [facility] Eosinophils/100 WBC (Bld) 1.80 % 0.0-7.0 [facility] Hematocrit Volume Fraction (Bld) 40.50 % 35.7-47.1 [facility] Hemoglobin mass conc (Bld) 13.60 g/dL 11.9-15.7 [facility] Lymphocytes #/vol (Bld) 3.40 10*3/uL 0.9-3.1 [facility] Lymphocytes/100 WBC (Bld) 41.0 % 28.0-42.0 [facility] MCH Entitic mass (RBC) 29.60 pg 23.2-33.3 [facility] MCV Entitic volume (RBC) 88.40 fL 82.0-98.4 [facility] Monocytes #/vol (Bld) 0.60 10*3/uL 0.3-1.0 [facility] Monocytes/100 WBC (Bld) 7.40 % 4.0-12.0 [facility] Z2 Neutrophils #/vol (Bld) 4.20 10*3/uL 1.8-7.9 [facility] Z2 Neutrophils/100 WBC (Bld) 49.50 % 45.6-68.4 [facility] Z2 Platelets #/vol (Bld) 225.0 10*3/uL 150-400 [facility] RBC #/vol (Bld) 4.580 10*6/uL 3.72-5.24 [facility] Z2 WBC #/vol (Bld) 8.30 10*3/uL 3.9-10.3 [facility] Metabolic Panelon 06-07-2016 Albumin mass conc 4.40 g/dL 3.7-4.5 [facility] Z2 ALP enzyme act/vol 77.0 U/L 31-155 [facility] Z2 ALT enzyme act/vol 17.0 U/L 0-50 [facility] [employer] [facility] AST enzyme act/vol 21.0 U/L 0-40 [facility] [employer] [facility] Bilirubin mass conc 0.40 mg/dL 0.0-1.0 [facility] Z2 Protein mass conc 7.40 g/dL 6.3-7.9 [facility]2 Otheron 06-07-2016 Albumin/Globulin mass ratio 1.5 {ratio} 1.0-2.4 [facility] Erythrocyte distribution width Ratio (RBC) 11.80 % 11.5-15.5 [facility] [employer] MCHC mass conc (RBC) 33.50 g/dL 32.0-36.0 [facility] Z2 Platelet mean volume Entitic volume (Bld) 9.0 fL 7.4-10.4 [place] [employer] Negative [facility] [employer] Otheron 04-23-2016 Negative [place] [employer] Otheron 03-19-2016 Negative [place] [employer] Cardiacon 02-12-2016 Cholesterol mass conc 175.0 mg/dL 0-200 [facility] Z2 Triglyceride mass conc 59.0 mg/dL 30-150 [place] [employer] Hematologyon 02-12-2016 Basophils #/vol (Bld) 0.10 10*3/uL 0.0-0.1 B [facility] [employer] Basophils/100 WBC (Bld) 0.90 % 0.0-1.0 [facility] [employer] Eosinophils #/vol (Bld) 0.10 10*3/uL 0.0-0.5 [facility] [employer] Eosinophils/100 WBC (Bld) 1.70 % 0.0-7.0 [facility] [employer] Hematocrit Volume Fraction (Bld) 41.60 % 35.7-47.1 [facility] Hemoglobin mass conc (Bld) 14.0 g/dL 11.9-15.7 [facility] Lymphocytes #/vol (Bld) 2.30 10*3/uL 0.9-3.1 [facility] Lymphocytes/100 WBC (Bld) 36.10 % 28.0-42.0 [facility] MCH Entitic mass (RBC) 29.40 pg 23.2-33.3 [facility] MCV Entitic volume (RBC) 87.60 fL 82.0-98.4 [facility] Monocytes #/vol (Bld) 0.50 10*3/uL 0.3-1.0 [facility] Monocytes/100 WBC (Bld) 7.20 % 4.0-12.0 [facility] Neutrophils #/vol (Bld) 3.30 10*3/uL 1.8-7.9 [facility] Neutrophils/100 WBC (Bld) 54.10 % 45.6-68.4 [facility] Platelets #/vol (Bld) 180.0 10*3/uL 150-400 [facility] RBC #/vol (Bld) 4.750 10*6/uL 3.72-5.[address] [facility] WBC #/vol (Bld) 6.30 10*3/uL 3.9-10.3 [facility] Metabolic Panelon 02-12-2016 Albumin mass conc 4.50 g/dL 3.7-4.[address] [employer] ALP enzyme act/vol 79.0 U/L 31-155 [facility] Z2 ALT enzyme act/vol 21.0 U/L 0-50 [facility] AST enzyme act/vol 22.0 U/L 0-40 [facility] Bilirubin mass conc 0.40 mg/dL 0.0-1.0 [facility] [employer] Protein mass conc 7.0 g/dL 6.3-7.9 [facility] [employer] Otheron 02-12-2016 Albumin/Globulin mass ratio 1.8 {ratio} 1.0-2.4 [facility] [employer] Erythrocyte distribution width Ratio (RBC) 12.10 % 11.5-15.5 [facility] [employer] MCHC mass conc (RBC) 33.60 g/dL 32.0-36.[address] [facility] [employer] Platelet mean volume Entitic volume (Bld) 9.70 fL 7.4-10.4 [facility] [employer] Negative [facility] [employer] Vital Signs Date Time Vital Sign Value Performing Clinician Facility 10-02-2024 09:28-0400 Body mass index (BMI) [Ratio] 26.79 kg/m2 Cheryl MARIE Work Phone: [facility] 10-02-2024 09:28-0400 Body weight 64.32 kg Cheryl MARIE Work Phone: [facility] 10-02-2024 09:28-0400 Diastolic blood pressure 64 mm[Hg] Cheryl MARIE Work Phone: [facility] 10-02-2024 09:28-0400 Systolic blood pressure 102 mm[Hg] Cheryl MARIE Work Phone: [facility] 09-13-2024 11:01-0400 Body mass index (BMI) [Ratio] 26.07 kg/m2 Eleazar Vijaya DO Work Phone: [facility] 09-13-2024 11:01-0400 Body weight 62.6 kg Eleazar Vijaya DO Work Phone: [facility] 09-13-2024 11:01-0400 Diastolic blood pressure 56 mm[Hg] Eleazar Vijaya DO Work Phone: [facility] 09-13-2024 11:01-0400 Systolic blood pressure 100 mm[Hg] Eleazar Vijaya DO Work Phone: [facility] 08-20-2024 09:57-0400 Body mass index (BMI) [Ratio] 25.32 kg/m2 Eleazar Vijaya DO Work Phone: [facility] 08-20-2024 09:57-0400 Body weight 60.78 kg Eleazar Vijaya DO Work Phone: [facility] 08-20-2024 09:57-0400 Diastolic blood pressure 70 mm[Hg] Eleazar Vijaya DO Work Phone: [facility] 08-20-2024 09:57-0400 Systolic blood pressure 110 mm[Hg] Eleazar Vijaya DO Work Phone: [facility] 07-23-2024 09:44-0400 Body mass index (BMI) [Ratio] 24.53 kg/m2 Cheryl MARIE Work Phone: [facility] 07-23-2024 09:44-0400 Body weight 58.88 kg Cheryl MARIE Work Phone: [facility] 07-23-2024 09:44-0400 Diastolic blood pressure 66 mm[Hg] Cheryl MARIE Work Phone: [facility] 07-23-2024 09:44-0400 Systolic blood pressure 102 mm[Hg] Cheryl MARIE Work Phone: [facility] 06-26-2024 08:38-0500 Body mass index (BMI) [Ratio] 23.96 kg/m2 Eleazar Vijaya DO Work Phone: [facility] 06-26-2024 08:38-0500 Body weight 57.52 kg Eleazar Vijaya DO Work Phone: [facility] 06-26-2024 08:38-0500 Diastolic blood pressure 58 mm[Hg] Eleazar Vijaya DO Work Phone: [facility] 06-26-2024 08:38-0500 Systolic blood pressure 100 mm[Hg] Eleazar Vijaya DO Work Phone: [facility] 05-28-2024 13:28-0500 Body mass index (BMI) [Ratio] 22.58 kg/m2 Cheryl Baugh PA Work Phone: [facility] 05-28-2024 13:28-0500 Body weight 54.2 kg Cheryl Amauri PA Work Phone: [facility] 05-28-2024 13:28-0500 Diastolic blood pressure 60 mm[Hg] Cheryl Amauri PA Work Phone: [facility] 05-28-2024 13:28-0500 Systolic blood pressure 102 mm[Hg] Cheryl Oakfield PA Work Phone: [facility] 05-18-2024 10:28-0500 Body height 154.94 cm [facility] 05-18-2024 10:28-0500 Body mass index (BMI) [Ratio] 21.8 kg/m2 [facility] 05-18-2024 10:28-0500 Body temperature 98 [degF] [facility] 05-18-2024 10:28-0500 Body weight 52.33 kg [facility] 05-18-2024 10:28-0500 Diastolic blood pressure 66 mm[Hg] [facility] 05-18-2024 10:28-0500 Heart rate 89 /min [facility] 05-18-2024 10:28-0500 SaO2% (BldA) [Mass fraction] 99 % [facility] 05-18-2024 10:28-0500 Systolic blood pressure 104 mm[Hg] [facility] 04-30-2024 10:13-0500 Body mass index (BMI) [Ratio] 21.73 kg/m2 Eleazar Vijaya DO Work Phone: [facility] 04-30-2024 10:13-0500 Body weight 52.16 kg Eleazar Vijaya DO Work Phone: [facility] 04-30-2024 10:13-0500 Diastolic blood pressure 64 mm[Hg] Eleazar Vijaya DO Work Phone: [facility] 04-30-2024 10:13-0500 Systolic blood pressure 106 mm[Hg] Eleazar Vijaya DO Work Phone: [facility] 03-23-2024 10:10-0500 Body mass index (BMI) [Ratio] 20.86 kg/m2 Nom Nurse [facility] 03-23-2024 10:10-0500 Body weight 50.08 kg [facility] Nurse [facility] 03-23-2024 10:10-0500 Diastolic blood pressure 60 mm[Hg] [facility] Nurse [facility] 03-23-2024 10:10-0500 Systolic blood pressure 110 mm[Hg] [facility] Nurse [facility] 03-14-2024 13:53-0500 Body mass index (BMI) [Ratio] 20.6 kg/m2 Eleazar Vijaya DO Work Phone: [facility] 03-14-2024 13:53-0500 Body weight 49.44 kg Eleazar Vijaya DO Work Phone: [facility] 03-14-2024 13:53-0500 Diastolic blood pressure 72 mm[Hg] Eleazar Vijaya DO Work Phone: [facility] 03-14-2024 13:53-0500 Systolic blood pressure 110 mm[Hg] Eleazar Vijaya DO Work Phone: [facility] 02-08-2024 13:21-0400 Body height 154.9 cm Eleazar Vijaya DO Work Phone: [facility] 02-08-2024 13:21-0400 Body mass index (BMI) [Ratio] 23.05 kg/m2 Eleazar Vijaya DO Work Phone: [facility] 02-08-2024 13:21-0400 Body weight 55.34 kg Eleazar Vijaya DO Work Phone: [facility] 02-08-2024 13:21-0400 Diastolic blood pressure 64 mm[Hg] Eleazar Vijaya DO Work Phone: [facility] 02-08-2024 13:21-0400 Systolic blood pressure 102 mm[Hg] Eleazar Vijaya [employer] Work Phone: [facility] 02-02-2024 12:39-0400 Body height 154.94 cm [facility] 02-02-2024 12:39-0400 Body mass index (BMI) [Ratio] 22.4 kg/m2 [facility] 02-02-2024 12:39-0400 Body temperature 98.3 [degF] [facility] 02-02-2024 12:39-0400 Body weight 54 kg [facility] 02-02-2024 12:39-0400 Diastolic blood pressure 64 mm[Hg] [facility] 02-02-2024 12:39-0400 Heart rate 82 /min [facility] 02-02-2024 12:39-0400 Respiratory rate 16 /min [facility] 02-02-2024 12:39-0400 SaO2% (BldA) [Mass fraction] 98 % [facility] 02-02-2024 12:39-0400 Systolic blood pressure 108 mm[Hg] [facility] 01-24-2024 11:38-0400 Body height 154.94 cm [facility] 01-24-2024 11:38-0400 Body mass index (BMI) [Ratio] 22.6 kg/m2 [facility] 01-24-2024 11:38-0400 Body temperature 96.1 [degF] [facility] 01-24-2024 11:38-0400 Body weight 54.43 kg [facility] 01-24-2024 11:38-0400 Diastolic blood pressure 60 mm[Hg] [facility] 01-24-2024 11:38-0400 Heart rate 75 /min [facility] 01-24-2024 11:38-0400 SaO2% (BldA) [Mass fraction] 98 % [facility] 01-24-2024 11:38-0400 Systolic blood pressure 114 mm[Hg] [facility] 01-03-2024 11:26-0400 Body height 154.94 cm [facility] 01-03-2024 11:26-0400 Body mass index (BMI) [Ratio] 23.2 kg/m2 [facility] 01-03-2024 11:26-0400 Body temperature 97.8 [degF] [facility] 01-03-2024 11:26-0400 Body weight 55.79 kg [facility] 01-03-2024 11:26-0400 Diastolic blood pressure 68 mm[Hg] [facility] 01-03-2024 11:26-0400 Heart rate 90 /min [facility] 01-03-2024 11:26-0400 SaO2% (BldA) [Mass fraction] 98 % [facility] 01-03-2024 11:26-0400 Systolic blood pressure 110 mm[Hg] [facility] 07-21-2023 10:20-0400 Body height 154.94 cm [facility] 07-21-2023 10:20-0400 Body mass index (BMI) [Ratio] 27.8 kg/m2 [facility] 07-21-2023 10:20-0400 Body weight 66.67 kg [facility] 07-21-2023 10:20-0400 Diastolic blood pressure 78 mm[Hg] [facility] 07-21-2023 10:20-0400 Heart rate 61 /min [facility] 07-21-2023 10:20-0400 SaO2% (BldA) [Mass fraction] 99 % [facility] 03-14-2024 10:20-0400 Systolic blood pressure 112 mm[Hg] [facility] 03-26-2023 11:30-0500 Body height 154.94 cm Jodie Portillo Other [employer] Other 03-26-2023 11:30-0500 Body mass index (BMI) [Ratio] 27.96 kg/m2 Jodie Portillo Other [employer] Other 03-26-2023 11:30-0500 Body temperature 98.8 [degF] Jodie Portillo Other [employer] Other 03-26-2023 11:30-0500 Body weight 67.13 kg Jodie Portillo Other [employer] Other 03-26-2023 11:30-0500 Diastolic blood pressure 76 mm[Hg] Jodie Portillo Other [employer] Other 03-26-2023 11:30-0500 Respiratory rate 18 /min Joide Portillo Other [employer] Other 03-26-2023 11:30-0500 SaO2% (BldA) [Mass fraction] 98 % Jodie Portillo Other [employer] Other 03-26-2023 11:30-0500 Systolic blood pressure 118 mm[Hg] Jodie Portillo Other [employer] Other 10-02-2022 12:25-0400 Body height 154.94 cm Deidra Jimenez Other [employer] Other 10-02-2022 12:25-0400 Body mass index (BMI) [Ratio] 27.43 kg/m2 Deidra Jimenez Other [employer] Other 10-02-2022 12:25-0400 Body temperature 97.7 [degF] Deidra Jimenez Other [employer] Other 10-02-2022 12:25-0400 Body weight 65.86 kg Deidra Jimenez Other [employer] Other 10-02-2022 12:25-0400 Respiratory rate 18 /min Deidra Jimenez Other [employer] Other 10-02-2022 12:25-0400 SaO2% (BldA) [Mass fraction] 97 % Deidra Jimenez Other [employer] Other 05-21-2019 10:42-0500 BMI (Body Mass Index) 23.41 kg/m2 [employer] [employer] 05-21-2019 10:42-0500 Body Temperature 98.8 [degF] Lyric Pérez Rene [facility] 05-21-2019 10:42-0500 Body weight 58.06 kg [employer] [employer] 05-21-2019 10:42-0500 BP Diastolic 68 mm[Hg] [facility]ric [employer] [facility] 05-21-2019 10:42-0500 BP Systolic 94 mm[Hg] [facility] [employer] 05-21-2019 10:42-0500 BSA (Body Surface Area) 1.59 m2 [employer] [employer] 05-21-2019 10:42-0500 Height 157.48 cm [facility]ric [employer] 05-21-2019 10:42-0500 Pulse (Heart Rate) 90 /min Lyric Pérez Erne [facility]useb[facility] Z2 05-11-2019 14:48-0500 BMI (Body Mass Index) 22.95 kg/m2 Hima Rene [employer] 05-11-2019 14:48-0500 Body Temperature 98.8 [degF] [facility] 05-11-2019 14:48-0500 Body weight 56.93 kg Hima Clemente PEN[facility] 05-11-2019 14:48-0500 BP Diastolic 66 mm[Hg] H[facility] Clemente Z[facility] 05-11-2019 14:48-0500 BP Systolic 110 mm[Hg] [facility] Clemente P[facility] 05-11-2019 14:48-0500 BSA (Body Surface Area) 1.58 m2 Hima Rene [employer] 05-11-2019 14:48-0500 Height 157.48 cm Hima Clemente PEN[facility] 05-11-2019 14:48-0500 Pulse (Heart Rate) 72 /min [facility] Cardoza [facility] Z[facility] 04-27-2019 15:18-0500 BMI (Body Mass Index) 23.52 kg/m2 Lyric Beto Rene [employer] 04-27-2019 15:18-0500 Body Temperature 98.9 [degF] Lyric Beto Rene Clemente PENRITH 04-27-2019 15:18-0500 Body weight 56.47 kg Lyric Beto [employer] 04-27-2019 15:18-0500 BP Diastolic 60 mm[Hg] [employer]ric [employer] 04-27-2019 15:18-0500 BP Systolic 112 mm[Hg] Lyric Rene [employer] 04-27-2019 15:18-0500 BSA (Body Surface Area) 1.56 m2 Lyric Rene [employer] 04-27-2019 15:18-0500 Height 154.94 cm Lyric [employer] 04-27-2019 15:18-0500 Pulse (Heart Rate) 80 /min Lyric Villarreal [facility] 04-09-2019 13:38-0500 BMI (Body Mass Index) 22.77 kg/m2 Lyric Pérez [employer] 04-09-2019 13:38-0500 Body Temperature 99.4 [degF] Lyric Clemente PENRITH 04-09-2019 13:38-0500 Body weight 54.66 kg Lyric [employer] 04-09-2019 13:38-0500 BP Diastolic 70 mm[Hg] [facility]ric [employer] 04-09-2019 13:38-0500 BP Systolic 120 mm[Hg] [facility]ric [employer] 04-09-2019 13:38-0500 BSA (Body Surface Area) 1.53 m2 Lyric Pérez [employer] 04-09-2019 13:38-0500 Height 154.94 cm Lyric [employer] 04-09-2019 13:38-0500 Pulse (Heart Rate) 82 /min Lyric Kimhard Cherelle [facility] 02-06-2019 16:41-0400 BMI (Body Mass Index) 22.77 kg/m2 Lyric Pérez [employer] 02-06-2019 16:41-0400 Body Temperature 98.8 [degF] Lyric Rene Clemente PENRITH 02-06-2019 16:41-0400 Body weight 54.66 kg Lyric [employer] 02-06-2019 16:41-0400 BP Diastolic 70 mm[Hg] Lyric Pérez [employer] 02-06-2019 16:41-0400 BP Systolic 112 mm[Hg] Lyric Pérez [employer] 02-06-2019 16:41-0400 BSA (Body Surface Area) 1.53 m2 Lyric Pérez [employer] 02-06-2019 16:41-0400 Height 154.94 cm Lyric Pérez [employer] 02-06-2019 16:41-0400 Pulse (Heart Rate) 72 /min Lyric rousePENRITH 10-31-2018 16:58-0400 BMI (Body Mass Index) 23.43 kg/m2 Hima Silver [employer] 10-31-2018 16:58-0400 Body weight 56.25 kg Hima Rene [email or web address] 10-31-2018 16:58-0400 BP Diastolic 60 mm[Hg] Hima Faustinnchard [email or web address] 10-31-2018 16:58-0400 BP Systolic 112 mm[Hg] Hima Faustinnchard Clemente PENRITH 10-31-2018 16:58-0400 BSA (Body Surface Area) 1.56 m2 Hima Silver [employer] 10-31-2018 16:58-0400 Height 154.94 cm Hima Clemente PENRITH 10-31-2018 16:58-0400 Pulse (Heart Rate) 72 /min Hima Cardoza [employer] 10-31-2018 16:58-0400 Weight 56.25 kg Hima Clemente PENRITH 08-28-2018 15:49-0400 BMI (Body Mass Index) 22.67 kg/m2 Hima Rene [employer] 08-28-2018 15:49-0400 Body Temperature 98.7 [degF] Hima Andrade [employer] 08-28-2018 15:49-0400 Body weight 54.43 kg Hima Clemente PENRITH 08-28-2018 15:49-0400 BP Diastolic 60 mm[Hg] Hima Clemente PEN[facility]ITH 08-28-2018 15:49-0400 BP Systolic 120 mm[Hg] Hima Clemente PEN[facility]ITH 08-28-2018 15:49-0400 BSA (Body Surface Area) 1.53 m2 Hima Rene [employer] 08-28-2018 15:49-0400 Height 154.94 cm Hima Clemente PENRITH 08-28-2018 15:49-0400 Pulse (Heart Rate) 66 /min Hima Cardoza [employer] 08-28-2018 15:49-0400 Weight 54.43 kg Hima Clemente PENRITH 02-09-2018 12:10-0400 BMI (Body Mass Index) 23.78 kg/m2 Hima Rene [employer] 02-09-2018 12:100400 Body Temperature 98.1 [degF] Hima chawla [employer] 02-09-2018 12:100400 Body weight 58.97 kg Hima Clemente [employer] 02-09-2018 12:10-0400 BP Diastolic 80 mm[Hg] Hima Clemente [employer] 02-09-2018 12:10-0400 BP Systolic 104 mm[Hg] Hima Clemente PENRITH 02-09-2018 12:10-0400 BSA (Body Surface Area) 1.61 m2 Hiam Rene [employer] 02-09-2018 12:10-0400 Height 157.48 cm Hima Clemente PENRITH 02-09-2018 12:10-0400 Pulse (Heart Rate) 64 /min Hima lowry [employer] 02-09-2018 12:10-0400 Weight 58.97 kg Hima Clemente PENRITH 01-11-2018 15:19-0400 BMI (Body Mass Index) 23.32 kg/m2 Hima Rene [employer] 01-11-2018 15:190400 Body weight 57.83 kg Hima Clemente PENRITH 01-11-2018 15:19-0400 BP Diastolic 68 mm[Hg] Hima Clemente PEN[facility] 01-11-2018 15:19-0400 BP Systolic 106 mm[Hg] Hima Rene [email or web address] 01-11-2018 15:19-0400 BSA (Body Surface Area) 1.59 m2 Hima Rene [employer] 01-11-2018 15:19-0400 Height 157.48 cm Hima Rene [email or web address] 01-11-2018 15:19-0400 Pulse (Heart Rate) 76 /min Hima Cardoza [employer] 01-11-2018 15:19-0400 Weight 57.83 kg Hima Rene [email or web address] 08-01-2017 09:57-0400 BMI (Body Mass Index) 23.59 kg/m2 Hima Rene [employer] 08-01-2017 09:57-0400 Body weight 58.51 kg [facility] [employer] 08-01-2017 09:57-0400 BP Diastolic 60 mm[Hg] Hima Rene [email or web address] 08-01-2017 09:57-0400 BP Systolic 94 mm[Hg] Hima Rene [email or web address] 08-01-2017 09:57-0400 BSA (Body Surface Area) 1.6 m2 Hima Rene [employer] 08-01-2017 09:57-0400 Height 157.48 cm Hima Rene [email or web address] 08-01-2017 09:57-0400 Pulse (Heart Rate) 80 /min Hima Cardoza [employer] 08-01-2017 09:57-0400 Weight 58.51 kg Hima Rene [email or web address] 01-13-2017 12:02-0400 BMI (Body Mass Index) 22.59 kg/m2 Hima Rene [employer] 01-13-2017 12:02-0400 Body weight 56.02 kg Hima Clemente [employer] 01-13-2017 12:02-0400 BP Diastolic 76 mm[Hg] Hima Camacho [employer] 01-13-2017 12:02-0400 BP Systolic 122 mm[Hg] Hima Clemente PENRITH 01-13-2017 12:02-0400 BSA (Body Surface Area) 1.57 m2 Hima Rene [employer] 01-13-2017 12:02-0400 Height 157.48 cm Hima Clemente PEN[facility] 01-13-2017 12:02-0400 Pulse (Heart Rate) 72 /min Hima ma Z2 01-13-2017 12:02-0400 Weight 56.02 kg Hima Clemente PEN[facility] 10-29-2016 16:57-0400 BMI (Body Mass Index) 22.13 kg/m2 Hima Rene [employer] 10-29-2016 16:57-0400 Body weight 54.89 kg Hima Clemente PEN[facility] 10-29-2016 16:57-0400 BP Diastolic 60 mm[Hg] Hima Clemente P[facility] 10-29-2016 16:57-0400 BP Systolic 104 mm[Hg] Hima Clemente PEN[facility] 10-29-2016 16:57-0400 BSA (Body Surface Area) 1.55 m2 Hima Rene [employer] 10-29-2016 16:57-0400 Height 157.48 cm Hima Clemente PENRITH 10-29-2016 16:57-0400 Pulse (Heart Rate) 68 /min Hima Cardoza [employer] 10-29-2016 16:57-0400 Weight 54.89 kg Hima Clemente PEN[facility]ITH 01-28-2016 17:46-0400 BMI (Body Mass Index) 21.67 kg/m2 Hima Rene [employer] 01-28-2016 17:46-0400 Body weight 53.75 kg Hima Clemente PEN[facility]ITH 01-28-2016 17:46-0400 BP Diastolic 64 mm[Hg] Hima Clemente PEN[facility] 01-28-2016 17:46-0400 BP Systolic 94 mm[Hg] Hima Clemente PEN[facility] 01-28-2016 17:46-0400 BSA (Body Surface Area) 1.53 m2 Hima Rene [employer] 01-28-2016 17:46-0400 Height 157.48 cm Hima Clemente PENRITH 01-28-2016 17:46-0400 Pulse (Heart Rate) 64 /min Hima Cardoza [employer] 01-28-2016 17:46-0400 Weight 53.75 kg Hima Clemente PEN[facility] 05-30-2015 16:50-0500 BMI (Body Mass Index) 21.22 kg/m2 Hima Rene [employer] 05-30-2015 16:50-0500 Body Temperature 98 [degF] Hima Andrade [employer] 05-30-2015 16:50-0500 Body weight 52.62 kg Hima Clemente PEN[facility] 05-30-2015 16:50-0500 BP Diastolic 64 mm[Hg] Hima Clemente PEN[facility] 05-30-2015 16:50-0500 BP Systolic 90 mm[Hg] Hima Clemente PEN[facility] 05-30-2015 16:50-0500 BSA (Body Surface Area) 1.52 m2 Hima Rene [employer] 05-30-2015 16:50-0500 Height 157.48 cm Hima Clemente PEN[facility] 05-30-2015 16:50-0500 Pulse (Heart Rate) 92 /min Hima ma Z2 05-30-2015 16:50-0500 Weight 52.62 kg Hima Clemente PEN[facility] 04-08-2015 16:01-0500 BMI (Body Mass Index) 21.28 kg/m2 Hima Rene [employer] 04-08-2015 16:01-0500 Body Temperature 98.4 [degF] Hima Andrade [employer] 04-08-2015 16:01-0500 Body weight 51.94 kg Hima Clemente PEN[facility] 04-08-2015 16:01-0500 BP Diastolic 84 mm[Hg] Hima Clemente PENRITH 04-08-2015 16:01-0500 BP Systolic 118 mm[Hg] Hima Rene [email or web address] 04-08-2015 16:01-0500 BSA (Body Surface Area) 1.5 m2 Hima Rene [employer] 04-08-2015 16:01-0500 Height 156.21 cm Hima Rene [email or web address] 04-08-2015 16:01-0500 Pulse (Heart Rate) 72 /min H[facility] Cardoza [facility] Z2 04-08-2015 16:010500 Weight 51.94 kg Hima Rene [email or web address] Encounters Encounter Date Encounter Type Care Provider Facility Start: 10-02-2024 End: 10-02-2024 Bamboo flowsheet Cheryl MARIE Work Phone: [facility] Start: 10-02-2024 End: 10-02-2024 Bamboo flowsheet Cheryl MARIE Work Phone: [facility] Start: 10-02-2024 End: 10-02-2024 Clinisync Result Encounter Eleazar Vijaya DO Work Phone: [facility] Unsolicited Start: 10-02-2024 End: 10-02-2024 Office outpatient visit 15 minutes Cheryl MARIE Work Phone: [facility] Comment on above: Third trimester preg chepe; 34 weeks gestation of ; BV (bacterial vaginosis) Start: 09-25-2024 End: 09-25-2024 Clinisync Result Encounter Eleazar Vijaya DO Work Phone: [facility] Unsolicited Start: 09-25-2024 End: 09-25-2024 Clinisync Result Encounter Eleazar Vijaya DO Work Phone: [facility] Unsolicited Start: 09-24-2024 End: 09-24-2024 Clinisync Result Encounter Gaye Vázquez NP Work Phone: [facility] Unsolicited Start: 09-24-2024 End: 09-24-2024 Clinisync Result Encounter Gaye Romeroerly TILE LAYER Work Phone: [facility] Unsolicited Start: 09-19-2024 End: 09-19-2024 Clinisync Result Encounter Gaye Gurpreet [employer] Work Phone: [facility] Unsolicited Start: 09-19-2024 End: 09-19-2024 Clinisync Result Encounter Gaye Romeroerly [employer] Work Phone: [facility] Unsolicited Start: 09-18-2024 End: 09-18-2024 Clinisync Result Encounter Eleazar Vijaya DO Work Phone: [facility] Unsolicited Start: 09-18-2024 End: 09-18-2024 Clinisync Result Encounter Eleazar Vijaya DO Work Phone: [facility] Unsolicited Start: 09-13-2024 End: 09-13-2024 Bamboo flowsheet Eleazar Vijaya DO Work Phone: [facility] Start: 09-13-2024 End: 09-13-2024 Bamboo flowsheet Eleazar Vijaya DO Work Phone: [facility] Start: 09-13-2024 End: 09-13-2024 Office outpatient visit 15 minutes Eleazar Vijaya DO Work Phone: [facility] Comment on above: Third trimester preg chepe; 31 weeks gestation of ; size inconsistent with dates Start: 09-13-2024 End: 09-13-2024 ambulatory ELEAZAR VIJAYA Not Available Start: 08-20-2024 End: 08-20-2024 Bamboo flowsheet Eleazar Vijaya DO Work Phone: [facility] Start: 08-20-2024 End: 08-20-2024 Bamboo flowsheet Eleazar Vijaya DO Work Phone: [facility] Start: 08-20-2024 End: 08-20-2024 Clinisync Result Encounter Gaye Gurpreet ALONZO Work Phone: [facility] Unsolicited Start: 08-20-2024 End: 08-20-2024 Office outpatient visit 15 minutes Eleazar Vijaya DO Work Phone: [facility] Comment on above: Third trimester preg chepe Start: 08-20-2024 End: 08-20-2024 ambulatory ELEAZAR VIJAYA Not Available Start: 07-23-2024 End: 07-23-2024 Office outpatient visit 15 minutes Cheryl MARIE Work Phone: [facility] Comment on above: 24 weeks gestation o f ; Second trimester ; Diabetes mellitus screening Start: 07-23-2024 End: 07-23-2024 ambulatory CHERYL BAUGH Not Available Start: 07-11-2024 End: 07-11-2024 Telephone encounter Cheryl MARIE Work Phone: [facility] Start: 07-09-2024 End: 07-11-2024 Clinisync Result Encounter Cheryl MARIE Work Phone: [facility] Unsolicited Start: 07-09-2024 End: 07-11-2024 Clinisync Result Encounter Cheryl MARIE Work Phone: [facility] Unsolicited Start: 06-26-2024 End: 06-26-2024 Bamboo flowsheet Eleazar Vijaya DO Work Phone: [facility] Start: 06-26-2024 End: 06-26-2024 Bamboo flowsheet Eleazar Vijaya DO Work Phone: [facility] Start: 06-26-2024 End: 06-26-2024 Office outpatient visit 15 minutes Eleazar Vijaya DO Work Phone: [facility] Comment on above: Second trimester pre gnancy; 20 weeks gestation of ; Low-lying placenta; Nausea and vomiting in Start: 06-26-2024 End: 06-26-2024 ambulatory ELEAZAR VIJAYA Not Available Start: 06-23-2024 End: 06-23-2024 Clinisync Result Encounter Cheryl Folrescammy MARIE Work Phone: [facility] Unsolicited Start: 06-23-2024 End: 06-23-2024 Clinisync Result Encounter Cheryl Florescammy MARIE Work Phone: [facility] Unsolicited Start: 05-28-2024 End: 05-28-2024 Bamboo flowsheet Cheryl Oakfield PA Work Phone: [facility] Start: 05-28-2024 End: 06-01-2024 Bamboo flowsheet Cheryl Baugh CYNTHIA Work Phone: [facility] Start: 05-28-2024 End: 06-01-2024 Clinisync Result Encounter Cheryl Florescammy MARIE Work Phone: [facility] Unsolicited Start: 05-28-2024 End: 05-28-2024 [...] in Start: 05-28-2024 End: 05-28-2024 ambulatory CHERYL BAUGH Not Available Start: 05-18-2024 End: 05-18-2024 ambulatory [facility] Work Phone: Start: 05-18-2024 End: 05-18-2024 Patient encounter procedure [facility] Phys[facility] Work Phone: Start: 04-30-2024 End: 04-30-2024 [...] 04-18-2024 End: 04-18-2024 ambulatory Susana Alonzo PA-C Facility:[facility] Start: 04-16-2024 End: 04-16-2024 Clinisync Result Encounter Eleazar Vijaya DO Work Phone: [facility] Unsolicited Start: 04-16-2024 End: 04-16-2024 Clinisync Result Encounter Eleazar Vijaya DO Work Phone: [facility] Unsolicited Start: 04-16-2024 Non-patient / Non-visit [facility] Work Phone: Start: 04-13-2024 End: [...] Not Available Start: 03-19-2024 Non-patient / Non-visit [facility] Work Phone: Start: 03-17-2024 Non-patient / Non-visit [facility] Work Phone: Start: 03-14-2024 End: [...] Department Unsolicited Start: 03-08-2024 Non-patient / Non-visit [facility] Work Phone: Start: 03-07-2024 End: 03-07-2024 ambulatory Ana Simmons APRN-CNC SERVICE ENGINEER Facility: [facility] Start: 03-02-2024 Non-patient / Non-visit [facility] Work Phone: Start: 02-29-2024 Non-patient / Non-visit [facility] Work Phone: Start: 02-28-2024 Non-patient / Non-visit [facility] Work Phone: Start: 02-28-2024 End: 02-28-2024 Phys/qhp telephone evaluation 5-10 min Eleazar Vijaya DO Work Phone: [facility] Comment on above: Early stage of pregn ana Start: 02-27-2024 Non-patient / Non-visit [facility] Work Phone: Start: 02-21-2024 Non-patient / Non-visit [facility] Physician [facility] Work Phone: Start: 02-08-2024 End: [...] Available Start: 02-02-2024 End: 02-02-2024 Departed Referred RECEIVING WORKER Jodie Portillo Work Phone: [facility] [place] Work Phone: Start: 02-02-2024 End: 02-02-2024 ambulatory Jodie Portillo [facility] Work Phone: Start: 02-02-2024 End: 02-02-2024 Patient encounter procedure [facility] Physician [facility] Work Phone: Start: 01-24-2024 End: 01-24-2024 ambulatory [facility] Work Phone: Start: 01-24-2024 End: 01-24-2024 Patient encounter procedure [facility] Physician [facility] Work Phone: Start: 01-24-2024 End: 01-24-2024 ambulatory [facility] Start: 01-19-2024 Non-patient / Non-visit [facility] Work Phone: Start: 01-03-2024 End: 01-03-2024 ambulatory [facility] Work Phone: Start: 01-03-2024 End: 01-03-2024 Patient encounter procedure [facility] Physician [facility] Work Phone: Start: 08-10-2023 End: 08-10-2023 ambulatory Ana Maryse Troy RECEIVING WORKER-CNC SERVICE ENGINEER Facility:[facility] Start: 07-21-2023 End: 07-21-2023 ambulatory [facility] Work Phone: Start: 07-21-2023 End: 07-21-2023 Patient encounter procedure [facility] Phys[facility] Work Phone: Start: 06-28-2023 ambulatory Amara Cheung PA-C Facility:[facility] Start: 06-27-2023 End: 06-27-2023 ambulatory Susana Alonzo PA-C Facility:[facility] Start: 06-22-2023 End: 06-22-2023 ambulatory Ana Maryse Troy RECEIVING WORKER-CNC SERVICE ENGINEER Facility:[facility] Start: 03-26-2023 End: 03-26-2023 ambulatory Jodie Portillo Other [employer] Other Start: 03-26-2023 Office outpatient vi sit 15 minutes Jodie Portillo [facility] Start: 10-02-2022 End: 10-02-2022 ambulatory Deidra Jimenez Other [employer] Other Start: 10-02-2022 Office outpatient ne w 20 minutes Deidra Jimenez [facility] Start: 05-21-2019 Office outpatient vi sit 15 minutes Lyric Pérez Other [facility] Office Start: 05-11-2019 [facility] Other [facility] Office Start: 05-11-2019 Office outpatient vi sit 15 minutes Lyric Pérez Other [facility] Office Start: 04-27-2019 Office outpatient vi sit 15 minutes Lyric Pérez Other [facility] Office Start: 04-09-2019 Office outpatient vi sit 15 minutes Lyric Pérez Other [facility] Office Start: 02-06-2019 Office outpatient vi sit 15 minutes Lyric Pérez Other [facility] Office Start: 10-31-2018 Routine general medi brad examination at [facility] [place] [facility] Start: 10-31-2018 [facility] [place] Other [facility] Office Start: 10-31-2018 Office outpatient vi sit 15 minutes Cheryl Dobbins Other [facility] Office Start: 08-28-2018 [facility] [place] Other [facility] Office Start: 08-28-2018 Office outpatient vi sit 15 minutes Cheryl Dobbins Other [facility] Office Start: 04-20-2018 End: 04-20-2018 Emergency department patient visit [facility] Start: 03-08-2018 Lab Enrique sy Other [facility] Office Start: 03-08-2018 Office outpatient vi sit 15 minutes Vinitafederica Ordonez Other [facility] Office Start: 02-09-2018 Office outpatient vi sit 15 minutes yLric Pérez Other [facility] Office Start: 02-03-2018 End: 02-03-2018 Lab Enrique Ordonez Other [facility] Office Start: 01-30-2018 Lab Enrique sy Other [facility] Office Start: 01-30-2018 Office outpatient vi sit 15 minutes Vinita José Luis Other [facility] Office Start: 01-11-2018 Office outpatient vi sit 15 minutes Lyric Pérez Other [facility] Office Start: 12-28-2017 Office outpatient vi sit 15 minutes Vinita José Luis Other [facility] Office Start: 12-28-2017 Lab Enrique Warneru gh Other [facility] Office Start: 08-01-2017 Office outpatient vi sit 25 minutes Lyric Pérez Other [facility] Office Start: 07-28-2017 End: 07-28-2017 Emergency department patient visit [facility] Start: 01-13-2017 Office outpatient vi sit 15 minutes Rachel Ly Other [facility] Office Start: 10-29-2016 Office outpatient vi sit 15 minutes Rachel Ly Other [facility] Office Start: 06-07-2016 Office outpatient vi sit 15 minutes Enrique José Luis Other [facility] Office Start: 04-23-2016 Office outpatient vi sit 15 minutes Enrique José Luis Other [facility] Office Start: 03-19-2016 Office outpatient vi sit 15 minutes Enrique José Luis Other [facility] Office Start: 02-12-2016 Office outpatient ne w 20 minutes Enrique José Luis Other [facility] Office Start: 01-28-2016 Office outpatient vi sit 15 minutes Lyric Pérez Other [facility] Office Start: 05-30-2015 Office outpatient vi sit 15 minutes Lyric Pérez Other [facility] Office Start: 04-08-2015 Office outpatient ne w 20 minutes Lyric Pérez Other [facility] Office Procedures Date Procedure Procedure Detail Performing Clinician Start: 10-02-2024 US OB BPP W NON-STRESS Eleazar Vijaya DO Work Phone: Start: 09-25-2024 US OB BPP W NON-STRESS Eleazar Vijaya DO Work Phone: Start: 09-24-2024 ALL CBC WITH AUTO DIFF Gaye Vázquez TILE LAYER Work Phone: Start: 09-19-2024 [facility] CMP (CMP) (FOR R [facility] USE) Gaye Vázquez TILE LAYER Work Phone: Start: 09-18-2024 US OB GROWTH Eleazar Fazi o DO Work Phone: Start: 09-13-2024 Urnls dip stick/tabl et rgnt non-auto w/o micrscp Eleazar Vijaya DO Work Phone: Start: 08-20-2024 ALL CBC WITH AUTO DIFF Gaye Vázquez TILE LAYER Work Phone: Start: 08-20-2024 Urnls dip stick/tabl et rgnt non-auto w/o micrscp Eleazar Vijyaa DO Work Phone: Start: 07-23-2024 Urnls dip stick/tabl et rgnt non-auto w/o micrscp Cheryl MARIE Work Phone: Start: 07-09-2024 AFP, SERUM, OPEN SPI NA BIFIDA Cheryl MARIE Work Phone: Start: 06-26-2024 Urnls dip stick/tabl et rgnt non-auto w/o micrscp Eleazar Vijaya DO Work Phone: Start: 06-23-2024 US OB ANATOMY Cheryl MARIE Work Phone: Start: 06-23-2024 US OB CERVICAL LENGTH A renny MARIE Work Phone: Start: 05-28-2024 Urnls dip stick/tabl et rgnt [...] [facility] Start: 05-11-2019 EBV Complete Series [place] ad[place]isa Pérez Start: 04-27-2019 Doc meds verified w/ pt or re Lyric Pérez Start: 04-09-2019 Doc meds verified w/ pt or re Lyric Pérez Start: 02-06-2019 Doc meds verified w/ pt or re Lyric Pérez Start: 10-31-2018 Doc meds verified w/ pt or re [facility] Start: 10-31-2018 Urnls dip stick/tabl et rgnt auto w/o microscopy [facility] [place] Start: 08-28-2018 Ceftriaxone sodium injection [facility] [place] Start: 08-28-2018 Doc meds verified w/ pt or re [facility] [place] Start: 08-28-2018 Urnls dip stick/tabl et rgnt [...] meds verified w/ pt or re [facility] [place] Start: 03-08-2018 Urine test visual color cmprsn meths [facility] [place] Start: 02-09-2018 Doc meds verified w/ pt or re [facility] [place] Start: 02-03-2018 Urine test visual color cmprsn meths [facility] [place] Start: 01-30-2018 Doc meds verified w/ pt or re [facility] [place] Start: 01-30-2018 Urine test visual color cmprsn meths [facility] [place] Start: 01-11-2018 Doc meds verified w/ pt [...] Urine test visual color cmprsn meths [facility] [place] Start: 03-19-2016 Urine test visual color cmprsn meths [facility] Start: 02-12-2016 Assay of triglycerides [facility] Start: 02-12-2016 Blood count complete auto&auto difrntl wbc [facility] Start: 02-12-2016 Cholesterol serum/wh ole blood total [facility] Start: 02-12-2016 Gonadotropin chorion ic qualitative [facility] Start: 02-12-2016 Hepatic function panel [facility] Plan of Treatment Date Care Activity Detail Author Start: 01-07-2025 Influenza vaccination Influenz a Vaccine (Season Ended) [facility] Start: 10-16-2024 End: 10-16-2024 Patient encounter procedure 10/16/2024 10:10 AM EDT Routine [facility] [address] [place] [address] Eleazar Lilly, [address] [place], [place] [id number] [facility] Start: 10-02-2024 End: 10-02-2024 Patient encounter procedure [facility] Comment on above: Arrived Start: 09-27-2024 End: 09-27-2024 Patient encounter procedure 09/27/2024 8:30 AM EDT Routine [facility] [address] [place] [address] Cheryl Baugh PA [address] [place] [address] [facility] Start: 09-13-2024 End: 01-14-2025 US for US OB follow up transabdominal approach Imaging Routine size inconsistent with dates Expected: 09/13/2024, Expires: 01/14/2025 [facility] Work Phone: Comment on above: Expected: 09/13/2024 , Expires: 01/14/2025 Start: 09-13-2024 End: 09-13-2024 Patient encounter procedure 09/13/2024 10:30 AM EDT Routine [facility] [address] [place] [address] Eleazar Lilly, [address] [place] [address] Arrived [facility] Comment on above: Arrived Start: 09-10-2024 End: 09-10-2024 Patient encounter procedure 09/10/2024 10:40 AM EDT Routine [facility] [address] [place] [address] Eleazar Lilly DO [address] [place], [place] [id number] [facility] Start: 08-20-2024 End: 08-20-2024 Patient encounter procedure [facility] Comment on above: Arrived Start: 07-23-2024 End: 07-23-2025 CBC panel - Blood by Automated count CBC Lab Routine Diabetes mellitus screening Expected: 07/23/2024 (Approximate), Expires: 07/23/2025 [facility] Work Phone: Comment on above: Expected: 07/23/2024 (Approximate), Expires: 07/23/2025 Start: 07-23-2024 End: 07-23-2025 Measurement of glucose 1 hour after glucose challenge for glucose tolerance test Glucose tolerance, 1 hour Lab Routine Diabetes mellitus screening Expected: 07/23/2024 (Approximate), Expires: 07/23/2025 [facility] Comment on above: Expected: 07/23/2024 (Approximate), Expires: 07/23/2025 Start: 07-23-2024 End: 07-23-2024 Patient encounter procedure 07/23/2024 10:20 AM EDT Routine [facility] [address] [place] [address] Cheryl Baugh PA [address] [place], [place] [id number] [facility] Start: 07-23-2024 End: 07-23-2024 Professional / ancillary services management 07/23/2024 9:00 AM EDT Ancillary Procedure [facility] [address] [address] [facility] Start: 06-26-2024 End: 06-26-2025 US for US OB limited 1+ fetuses Imaging Routine Low-lying placenta Expected: 06/26/2024, Expires: 06/26/2025 [facility] Work Phone: Comment on above: Expected: 06/26/2024 , Expires: 06/26/2025 Start: 06-26-2024 End: 06-26-2024 Patient encounter procedure [facility] Comment on above: Arrived Start: 05-28-2024 End: 11-25-2024 Alpha fetoprotein, maternal [...] PM EST Routine [facility] [address] [place] [id number] Cheryl Baugh PA [address] [place] [address] Arrived [facility] Comment on above: Arrived Start: 04-30-2024 End: 04-30-2024 Patient encounter procedure 04/30/2024 10:10 AM EST Routine [facility] [address] [place] [phone] Eleazar Lilly DO [address] [place] [place] [address] 12 weeks gestation of ; Second trimester [facility] Comment on above: 12 weeks gestation o f ; Second trimester Start: 04-23-2024 End: 04-23-2024 Patient encounter procedure 04/23/2024 10:50 AM EST Routine [facility] [address] [place] [address] Eleazar Lilly, [address] [place], [place] [id number] [facility] Start: 03-23-2024 End: 03-23-2025 [...] first trimester Expected: 03/23/2024 (Approximate), Expires: 03/23/2025 [facility] Comment on above: Expected: 03/23/2024 (Approximate), Expires: 03/23/2025 Start: 03-23-2024 End: 03-23-2024 ambulatory 03/23/2024 10:00 AM EST Initial [facility] [address] [place] [address] [facility] Start: 03-23-2024 End: 03-23-2024 Professional / ancillary services management 03/23/2024 9:30 AM EST Ancillary Procedure [facility] [address] [phone] [facility] Start: 03-14-2024 End: 03-14-2024 Patient encounter procedure 03/14/2024 1:30 PM EST Office Visit [facility] [address] [place] [phone] Eleazar Lilly, DO [address] [address] Arrived [facility] Comment on above: Arrived Start: 02-28-2024 End: 02-28-2024 Patient encounter procedure 02/28/2024 8:10 AM EDT Office Visit [facility] [address] [place], [place] [address] [place] [phone] Eleazar Lilly, DO [address] [place] [place] [address] [facility] Start: 02-08-2024 End: 02-07-2025 SURESWAB(R) ADVANCED VAGINITIS PLUS, TMA SURESWAB(R) ADVANCED VAGINITIS PLUS, TMA Pathology and Cytology Routine Pelvic pain in female Expected: 02/08/2024 (Approximate), Expires: 02/07/2025 [facility] Work Phone: Comment on above: Expected: 02/08/2024 (Approximate), Expires: 02/07/2025 Start: 02-08-2024 End: 02-07-2025 US for US PELVIS-TRANSVAG IF INDICATED Imaging Routine Pelvic pain in female Expected: 02/08/2024 (Approximate), Expires: 02/07/2025 [facility] Comment on above: Expected: 02/08/2024 (Approximate), Expires: 02/07/2025 Start: 02-08-2024 End: 02-08-2024 Patient encounter procedure 02/08/2024 1:20 PM EDT Office Visit [facility] [address] [place] [address] Eleazar Lilly, DO [address] [place] [address] Arrived [facility] Comment on above: Arrived Start: 02-02-2024 [facility] Start: 01-08-2024 Influenza vaccination Influenza Vacc ine (#1) [facility] Start: 05-11-2019 Blood count complete auto&auto difrntl wbc CBC w diff [facility] Start: 05-11-2019 TSH Qn TSH [facility] Start: 11-02-2018 Blood count complete automated CBC & PLATELET COUNT; AUTOMATED [facility] Start: 11-02-2018 Comprehensive metabo lic panel Comprehensive metabolic panel [facility] Start: 11-02-2018 Gonadotropin chorion ic qualitative SERUM [facility] Start: 11-02-2018 Hemoglobin A1c/Hemoglobin.total mass fraction (Bld) Hgb A1c [facility] Start: 11-02-2018 Lipid panel Lipid panel [facility] Start: 11-02-2018 Thyrotropin Qn TSH (thyroid s timulating hormone) [facility] Start: 11-02-2018 Urnls dip stick/tabl et rgnt auto w/o microscopy UA [facility] Atopobium vaginae DN A [Presence] in Vaginal fluid by ELDON with probe detection [facility] Bacteria identified in Urine by Culture Urine culture Microbiology Routine Missed menses Ordered: 03/23/2024 [facility] Comment on above: Ordered: 03/23/2024 Bacterial vaginosis associated bacterium 2 DNA [Presence] in Vaginal fluid by ELDON with probe detection [facility] CBC W Auto Different ial panel - Blood CBC and differential Lab Routine Missed menses , unspecified gestational age Ordered: 03/23/2024 [facility] Comment on above: Ordered: 03/23/2024 CBC W Auto Different ial panel - Blood CBC and differential Lab Routine Third trimester Ordered: 08/20/2024 [facility] Comment on above: Ordered: 08/20/2024 CHLAMYDIA TRACHOMATI S (GENITO/STI) CHLAMYDIA TRACHOMATIS (GENITO/STI) Lab Routine Pelvic pain in female Ordered: 02/08/2024 [facility] Comment on above: Ordered: 02/08/2024 CHLAMYDIA TRACHOMATI S (GENITO/STI) CHLAMYDIA TRACHOMATIS (GENITO/STI) Lab Routine STD exposure Ordered: 05/28/2024 [facility] Comment on above: Ordered: 05/28/2024 Cytology Cervical or vaginal smear or scraping study Pap Smear Pathology and Cytology Routine Well woman exam with routine gynecological exam Ordered: 05/28/2024 [facility] Comment on above: Ordered: 05/28/2024 Estradiol (E2) [Mass/volume] in Serum or Plasma [facility] Estrogen [Mass/volum e] in Serum or Plasma [facility] Hemoglobin A1c/Hemoglobin.total in Blood Hemoglobin A1c Lab Routine Missed menses , unspecified gestational age Ordered: 03/23/2024 [facility] Comment on above: Ordered: 03/23/2024 Hemoglobin A1c/Hemoglobin.total in Blood Hemoglobin A1c Lab Routine Third trimester Ordered: 08/20/2024 [facility] Work Phone: Comment on above: Ordered: 08/20/2024 Hepatitis B virus surface Ag [Presence] in Serum or Plasma by Immunoassay Hepatitis B surface antigen Lab Routine Missed menses , unspecified gestational age Ordered: 03/23/2024 [facility] Comment on above: Ordered: 03/23/2024 Hepatitis C virus Ab [Presence] in Serum or Plasma by Immunoassay Hepatitis C antibody Lab Routine Missed menses , unspecified gestational age Ordered: 03/23/2024 [facility] Comment on above: Ordered: 03/23/2024 HIV-1/HIV-2 antigen/antibody combination immunoassay HIV-1 and HIV-2 antibodies Lab Routine Missed menses , unspecified gestational age Ordered: 03/23/2024 [facility] Comment on above: Ordered: 03/23/2024 Holter monitor study [facility] Lutropin [Units/volu me] in Serum or Plasma [facility] Megasphaera sp type 1 DNA [Presence] in Vaginal fluid by ELDON with probe detection [facility] Neisseria gonorrhoea e DNA [Presence] in Unspecified specimen by ELDON with probe detection Neisseria gonorrhea DNA probe, direct Lab Routine Pelvic pain in female Ordered: 02/08/2024 [facility] Comment on above: Ordered: 02/08/2024 Neisseria gonorrhoea e DNA [Presence] in Unspecified specimen by ELDON with probe detection Neisseria gonorrhea DNA probe, direct Lab Routine STD exposure Ordered: 05/28/2024 [facility] Comment on above: Ordered: 05/28/2024 Progesterone [Mass/volume] in Serum or Plasma [facility] Reagin Ab [Presence] in Serum by RPR RPR Lab Routine Missed menses , unspecified gestational age Ordered: 03/23/2024 [facility] Comment on above: Ordered: 03/23/2024 Rubella antibody, IgG Rubella an tibody, IgG Lab Routine Missed menses , unspecified gestational age Ordered: 03/23/2024 [facility] Comment on above: Ordered: 03/23/2024 SURESWAB(R) ADVANCED VAGINITIS PLUS, TMA SURESWAB(R) ADVANCED VAGINITIS PLUS, TMA Pathology and Cytology Routine Vaginal discharge Ordered: 05/28/2024 [facility] Comment on above: Ordered: 05/28/2024 XR Cervical spine 5 Views [facility] XR Thoracic and lumb ar spine Views for scoliosis [facility] Payers Date Payer Category Payer Self-pay 2022 Medicaid [id number] 2022 Medicaid [id number] 2. [id number] 2022 Unknown 2015 Unknown [id number] 2.16 .[id number] 2014 Unknown [id number] 1996 Unknown [id number] 2.16.8 40.1.132292.3.579.2.173 1996 Unknown [id number] 2.16.8 40.1.054713.3.579.2.173 1996 Unknown [id number] 2.16. 840.1.639603.3.579.2.196 1996 Unknown [id number] 2.16. 840.1.669895.3.579.2.196 1996 Unknown [id number] 2.16. 840.1.752077.3.579.2.196 1996 Unknown [id number] 2.16. 840.1.452298.3.579.2.196 1996 Unknown [id number] 2.16. 840.1.003519.3.579.2.196 1996 Unknown [id number] 2.16. 840.1.466300.3.579.2.196 1996 Unknown [id number] 2.16. 840.1.849143.3.579.2.196 1996 Unknown [id number] 2.16.84 0.1.471235.3.579.2.9 1996 Unknown [id number] 2.16.84 0.1.332060.3.579.2.9 1996 Unknown [id number] 2.16.84 0.1.171664.3.579.2.1258 1996 Unknown [id number] 2.16.84 0.1.224759.3.579.2.9 1996 Unknown [id number] 2.16.84 0.1.091120.3.579.2.1258 1996 Unknown [id number] 2.16.84 0.1.006765.3.579.2.9 1996 Unknown [id number] 2.16.84 0.1.583249.3.579.2.1258 1996 Unknown [id number] 2.16.84 0.1.861724.3.579.2.1259 1996 Unknown [id number] 2.16.84 0.1.428908.3.579.2.1259 1996 Unknown [id number] 2.16.84 0.1.153251.3.579.2.1259 Unknown [id number] 2.16.8 40.1.352753.3.579.2.531 Social History Date Type Detail Facility Start: Unknown if ever smoked [facility] Start: 1 can pop/day [facility] Sex Assigned At [facility] Other Start: 07-21-2023 End: 02-02-2024 Tobacco smoking status INIS Never smoked tobacco (finding) [facility] Start: 1995 Sex Assigned At Female [facility] Tobacco smoking status [facility] Tobacco smoking consumption unknown [facility] Start: 1995 Sex assigned at Not on file [facility] Start: 02-17-2024 [facility] Start: 05-18-2024 Sex Female (finding) [facility] Clinical Notes 10-02-2022 to 10-02-2024 CYNTHIA Del Cid - 10/02/2024 9:10 AM EDJina Cormier MA - 09/13/2024 10:30 AM Vic Ayala LPN - 08/20/2024 9:50 AM CYNTHIA Hurd - 07/23/2024 10:20 AM EDT Note Date & Type Note Facility 10-02-2024 History of Present illness Narrative Reason for Appointment: Patient ID: Cristiane Celaya is a 28 y.o. female who presents [...] Vitals: Estimated body mass index is 26.79 kg/m as calculated from the following: Height [...] CYNTHIA Del Cid documented in this encounter [facility] 09-13-2024 History of Present illness Narrative Reason for Appointment: Patient ID: Cristiane Celaya is a 28 y.o. female who presents for Routine Visit Patient presents today for Return OB appointment. MEDICATIONS Current Outpatient Medications Medication Instructions fluticasone (Flonase) 50 MCG/ACT nasal spray USE 1 SPRAY IN EACH NOSTRIL TWICE A DAY iron polysaccharides (PROFE) 391.3 mg, Oral, Daily ondansetron ODT (ZOFRAN-ODT) 4 mg, Oral, [...] Exam Vitals: Estimated body mass index is 26.07 kg/m as calculated from the following: Height as of 02/08/24: 5' 1 . Weight as of this encounter: 138 lb. BP: 100/56 Patient's last menstrual period was 01/23/2024. ASSESSMENT & PLAN ICD-10-CM 1. Third trimester Z34.93 POCT urinalysis dipstick manually resulted 2. 31 weeks gestation of Z3A.31 Return OB: Patient presents today for a routine obstetrics appointment. Patient is currently 31w6d . Patient states she is doing well [...] DO documented in this encounter [facility] 08-20-2024 History of Present illness Narrative Reason for Appointment: Patient ID: Cristiane Celaya is a 28 y.o. female who presents for Routine Visit Patient presents today for Return OB appointment. MEDICATIONS Current Outpatient Medications Medication Instructions fluticasone (Flonase) 50 MCG/ACT nasal spray USE 1 SPRAY IN EACH NOSTRIL TWICE A DAY ondansetron ODT (ZOFRAN-ODT) 4 mg, Oral, Every [...] nursing note reviewed. Exam conducted with a general dentist present. Vitals: Estimated body mass index is 25.32 kg/m as calculated from the following: Height as of 02/08/24: 5' 1 . Weight as of this encounter: 134 lb. BP: 110/70 Patient's last menstrual period was 01/23/2024. ASSESSMENT & PLAN ICD-10-CM 1. Third trimester Z34.93 POCT urinalysis dipstick manually resulted Patient presents today for a routine obstetrics appointment. Patient is currently 28w3d with a Estimated Date of Delivery: 11/09/24. Patient voiced that she hs not yet done her 1 hour gtt. Patient given orders for Hba1c and CBC to have done. Patient to return to clinic in 2-3 weeks for routine OB care appointment. Documented by Monica Ayala LPN on behalf of: LYNN Duran documented in this encounter [facility] 07-23-2024 History of Present illness Narrative Reason for Appointment: Patient ID: Cristiane Celaya is a 28 y.o. female who presents for Routine Visit Patient presents today for Return OB appointment. MEDICATIONS Current Outpatient Medications Medication Instructions ondansetron [...] reviewed. Vitals: Estimated body mass index is 24.53 kg/m as calculated from the following: Height as of 02/08/24: 5' 1 . Weight as of this encounter: 129 lb 12.8 oz. BP: 102/66 Patient's last menstrual period was 01/23/2024. ASSESSMENT & PLAN ICD-10-CM 1. 24 weeks gestation of Z3A.24 POCT urinalysis dipstick manually resulted 2. Second trimester Z34.92 3. Diabetes mellitus screening Z13.1 CBC Glucose tolerance, 1 hour CBC Glucose tolerance, 1 hour Return OB: Patient presents today for a routine obstetrics appointment. Patient is currently 24w3d . Patient states she is doing well but has complaints of being tired due to current . Patient has verbalizes frequent movement. Orders Placed This Encounter Procedures CBC Glucose tolerance, 1 hour POCT urinalysis dipstick manually resulted Follow Up: Patient is to return to office in 4 week for routine OB appointment. Documented by CYNTHIA Del Cid on behalf of: CYNTHIA Del Cid documented in this encounter [facility] 06-26-2024 History of Present illness Narrative Reason for Appointment: Patient ID: Cristiane Celaya is a 28 y.o. female who presents [...] nursing note reviewed. Exam conducted with a general dentist present. Vitals: Estimated body mass index is 23.96 kg/m as calculated from the following: Height as of 02/08/24: 5' 1 . Weight as of this encounter: 126 lb 12.8 oz. BP: 100/58 Patient's last menstrual period was 01/23/2024. ASSESSMENT & PLAN ICD-10-CM 1. Second trimester Z34.92 2. 20 weeks gestation of Z3A.20 Return OB: Patient presents today for a routine obstetrics appointment. Patient is currently 20w4d . Patient states she is doing well but has complaints of being tired due to current . Reviewed anatomy scan with pt in detail given repeat ultrasound orders, low lying placenta and suboptimally seen posterior fossa and LVOT and RVOT No orders of the defined types were placed in this encounter. Follow Up: Patient is to return to office in 4 week for routine OB appointment. Documented by Yaneli Xavier LPN on behalf of: Eleazar Lilly DO documented in this encounter [facility] 05-28-2024 History of Present illness Narrative Reason for Appointment: Patient ID: Cristiane Celaya is a 28 y.o. female who presents [...] nursing note reviewed. Exam conducted with a general dentist present. Vitals: Estimated body mass index is [...] obtained without difficulty and patient was given [facility] order to have obtained. Orders Placed This Encounter Procedures US OB 14+ weeks anatomy scan Alpha fetoprotein, maternal CHLAMYDIA TRACHOMATIS (GENITO/STI) Neisseria gonorrhea DNA probe, direct POCT urinalysis dipstick manually resulted Follow Up: Patient is to return to our office in 4 weeks for routine OB appointment Documented by Nimco Mojica LPN on behalf of: CYNTHIA Del Cid documented in this encounter [facility] 04-30-2024 History of Present illness Narrative Reason for Appointment: Patient ID: Cristiane Celaya is a 28 y.o. female who presents [...] DO documented in this encounter [facility] 03-23-2024 History of Present illness Narrative Reason for Appointment: Patient ID: Critsiane Celaya is a 28 y.o. female who presents [...] or undercooked meat, and stay away from [facility]. Patient has also been advised to not [...] Alana Gongora LPN documented in this encounter [facility] 03-14-2024 History of Present illness Narrative Reason for Appointment: Patient ID: Cristiane Celaya is a 28 y.o. female who presents [...] nursing note reviewed. Exam conducted with a general dentist present. Vitals: Estimated body mass index is [...] DO documented in this encounter [facility] 03-02-2024 Note Patient Education Ma terials Name: Manjinder Cristiane Gardiner Current Date: 03/02/2024 06:56:41 [facility] : 1995 The following sheet(s) are the Patient Education Leaflets for Cristiane Celaya Oncology Breast Health: Breast Self-Awareness What is [...] breast self-exam (BSE). These experts include the [place] [employer] and the [place] [employer] Gynec[employer]. Some experts [...] This means they are not cancer. ? The [employer]. All rights reserved. This information is not intended as a substitute for professional medical care. Always follow your healthcare professional's instructions. [facility] 02-28-2024 History of Present illness Narrative Reason for Appointment: Patient ID: Cristiane Celaya is a 28 y.o. female who presents for Telehealth (Pt had ultrasound and positive HCG) Patient presents today via telephone call for a telehealth appointment. Patients Phone #: [phone] (mobile) Current Medications: has a current medication [...] DO documented in this encounter [facility] 02-08-2024 History of Present illness Narrative Reason for Appointment: Patient ID: Cristiane Celaya is a 28 y.o. female who presents [...] nursing note reviewed. Exam conducted with a general dentist present. Vitals: Estimated body mass index is [...] DO documented in this encounter [facility] 03-26-2023 Evaluation note Encounter Date Diagnosis [...] verbalized understanding and agrees with treatment plan [facility] Other 05-27-2023 Evaluation note* Encounter Date Diagnosis [...] no improvement in 2 to 3 days [facility] Other Evaluation note* Diagnosis Onset Date Resolution Status Acquired scoliosis acute Daily headache acute Fatigue acute Hot flashes acute Irregular menstrual cycle ac barrow Neck pain acute [facility] Work Phone: Evaluation note* Diagnosis Onset Date Resolution Status Dizziness acute Heart palpitations acute [facility] Work Phone: Evaluation note* Diagnosis Onset Date Resolution Status Dizziness acute Heart palpitations acute Anxiety acute Depression acute [facility] Work Phone: Evaluation note* Diagnosis Onset Date Resolution Status Dizziness acute Heart palpitations acute Anxiety acute Depression acute Vaginal discharge noneactive Acute effusion of both middle ears noneactive [facility] Work Phone: Evaluation note* Diagnosis Pelvic [...] tube dysfunction acute May 18, 2024 10:24am [facility] Work Phone: Evaluation note* Diagnosis Screening, , for anatomic survey Encounter for anatomic survey STD exposure Vaginal discharge Leukorrhea, not specified as infective Well woman exam with routine gynecological exam Routine gynecological examination Second trimester state, incidental Nausea and vomiting in Unspecified vomiting of , unspecified as to episode of care [facility] Diagnosis Second trimester state, incidental 20 weeks gestation of Low-lying placenta Hemorrhage from placenta previa, unspecified as to episode of care Nausea and vomiting in Unspecified vomiting of , unspecified as to episode of care [facility] Diagnosis 24 weeks gestation of Second trimester state, incidental Diabetes mellitus screening Screening for diabetes mellitus [facility] Diagnosis Third trimester state, incidental [facility] Diagnosis Third trimester state, incidental 31 weeks gestation of size inconsistent with dates [facility] Diagnosis Third trimester state, incidental 34 weeks gestation of BV (bacterial vaginosis) Unspecified vaginitis and vulvovaginitis documented in this encounter [facility] Summary [...] section and content) DATE CREATED AUTHOR 04/25/2018 [facility] DATE CREATED AUTHOR AUTHOR'S ORGANIZ ATION 12/02/2019 [facility] DATE CREATED AUTHOR AUTHOR'S ORGANIZ ATION 02/06/2024 [facility] DATE CREATED AUTHOR AUTHOR'S ORGANIZ ATION 05/26/2024 [facility] DATE CREATED AUTHOR AUTHOR'S ORGANIZ ATION 09/15/2024 [facility] EPIC REASON FOR VISIT [...] Member Role Status Dates Evelyn Vu APRN TILE LAYER-C Primary Care Provider Active Team Status: Inactive Member Role Status Dates GELACIO AcevesC Primary Care Provider, Attending Provider Active Start: July 21, 2023 End: July 21, 2023 Team Status: Inactive Member Role Status Dates Evelyn Vu APRN NP-Debora Primary Care Provider, Attending Provider Active Start: January 03, 2024 End: January 03, 2024 Team Status: Active Member Role Status Dates Evelyn Vu APRN TILE LAYER-C Primary Care Provider Active Start: January 072023 Ty Aguilar DO Attending Provider Active S tart: January 19, 2024 Team Status: Inactive Member Role Status Dates Evelyn Vu APRN TILE LAYER-C Primary Care Provider, Attending Provider Active Start: January 24, 2024 End: January 24, 2024 Team Status: Inactive Member Role Status Dates Evelyn Vu APRN TILE LAYER-C Primary Care Provider Active Start: January 082023 End: February 02, 2024 Jodie Portillo APRN Attending Provider Active Start: February 02, 2024 End: February 02, 2024 Team Status: Inactive Member Role Status Dates Jodie Portillo APRN Attending Provider Active Start: February 02, 2024 End: February 02, 2024 Technical Assistant Relationship Specialty Start Date End Date Corwin Dee DO [address] [place], [place] [id number] PCP - General Family Medicine 09/14/22 Technical Assistant Relationship Specialty Start Date End Date Corwin Dee DO [address] [place] [id number] PCP - General Family Medicine 09/14/22 Technical Assistant Relationship Specialty Start Date End Date Corwin Dee DO [address] [place] [address] PCP - General Family Medicine 09/14/22 Technical Assistant Relationship Specialty Start Date End Date oCrwin Dee DO [address] [place] [address] PCP - General Family Medicine 09/14/22 Technical Assistant Relationship Specialty Start Date End Date Unallocated, Berto Bermudez MD [address] [facility] [place] [place] [address] PCP - General Family Medicine 02/28/24 Technical Assistant Relationship Specialty Start Date End Date Unallocated, [place] [address] PCP - General Family Medicine 02/28/24 Technical Assistant Relationship Specialty Start Date End Date Unallocated, Berto Bermudez MD [address] [place] [address] PCP - [facility] Medicine 02/28/24 Technical Assistant Relationship Specialty Start Date End Date Unallocated, Berto Bermudez MD [address] [place] [address] PCP - [facility] Family Medicine 02/28/24 Technical Assistant Relationship Specialty Start Date End Date Unallocated, Berto Bermudez MD [facility] [address] [place] [address] PCP - [facility] Medicine 02/28/24 Technical Assistant Relationship Specialty Start Date End Date Unallocated, Berto Bermudez MD [address] [place] [address] PCP - [facility] Medicine 02/28/24 Technical Assistant Relationship Specialty Start Date End Date Unallocated, Berto Bermudez MD [address] [place] [address] [place] [address] PCP - [facility] Medicine 02/28/24 Team Status: Active Member Role [...] Member Role Status Dates Evelyn Vu APRN TILE LAYER-C Primary Care Provider, Attending Provider Active Start: May 18, 2024 End: May 18, 2024 Technical Assistant Relationship Specialty Start Date End Date Unallocated, Berto Bermudez MD [facility] [address] [place] [address] PCP - General Family Medicine 02/28/24 Technical Assistant Relationship Specialty Start Date End Date Unallocated, Berto Bermudez MD [facility] [address] [place] [address] PCP - General Family Medicine 02/28/24 Technical Assistant Relationship Specialty Start Date End Date Unallocated, Berto Bermudez MD [facility] [place] [address] PCP - General Family Medicine 02/28/24 Technical Assistant Relationship Specialty Start Date End Date Unallocated, Berto Bermudez MD [facility] [address] [place] [address] PCP - General Family Medicine 02/28/24 Technical Assistant Relationship Specialty Start Date End Date Unallocated, Berto Bermudez MD [facility] [address] [place] [address] PCP - General Family Medicine 02/28/24 Technical Assistant Relationship Specialty Start Date End Date Unallocated, Berto Bermudez MD [facility] [address] [place] [address] PCP - General Family Medicine 02/28/24 Technical Assistant Relationship Specialty Start Date End Date Unallocated, Berto Bermudez MD [facility] [address] [place] [address] PCP - General Family Medicine 02/28/24 Technical Assistant Relationship Specialty Start Date End Date Unallocated, Berto Bermudez MD [address] [place] [address] PCP - General Family Medicine 02/28/24 Technical Assistant Relationship Specialty Start Date End Date Unallocated, Berto Bermudez MD [address] [place] [address] PCP - General Family Medicine 02/28/24 Goals [...] BE BASED ON THE PRIMARY CLINICAL RECORDS. [facility]. provides no warranty or guarantee of the accuracy or completeness of information in this document.
== END 2024-10-05 08:32 | disposition home or self-care (01) ==
LOC: FBCO 08:00 → FBC 08:02
PROVIDERS: PCP Nurse Practitioner Family; Visit Provider Obstetrics & Gynecology
DX: O26.893 Other specified pregnancy related conditions, third trimester (principal)
CPT/HCPCS: 59025

== ENCOUNTER 2024-10-09 15:46 | Outpatient (OUT) | payer MEDICAID, SELFPAY ==
--- OUTSIDE RECORDS SUMMARY | 2010-07-27 16:35 | XMS_ITS | Encounter Summary ---
Author Organization [facility] Address [address] [place] [address] Care Team Providers Care Pst Manager Name Role Phone Unavailable Primary Care Provider Unavailabl e Encounter Details Date Type Department Care Team (Late st Contact Info) Description 07/27/2010 4:35 PM EDT Hospital Encounter [place] [phone] Social History Tobacco Use Types Packs/Day Years [...]
--- OUTSIDE RECORDS SUMMARY | 2024-06-08 09:30 | XMS_ITS ---
Author Organization [facility] Address [address] [place] [address] Care Team Providers Care Chamber Walker Name Role Phone Katie Monroe Primary Care Provider Ines Sauceda Unavailable Swapna Chris Unavailable [phone] REASON FOR VISIT PROPHY Encounters Encounter Location Date Provider Diagnosis [facility] [address] [place] [address] 06/08/2024 Swapna Chris Plan Of Treatment No Information Progress Notes * GIANCARLO CELAYA EDOB:1995 (28 yo F)Acc No.[id number]:06/08/2024 Patient: GIANCARLO DAVIDSON Provider: Debora Chris :1995 A ge:28 Y S ex:Female Date:06/08/2024 Address:[address] [place] [address], [id number] Pcp:Katie Monreo Subjective: * Chief Complaints: * 1 . PROPHY. * Medical History: Objective: * Vitals: Assessment: Plan: * Treatment: * Images: * Electronic signature of Misti Chris on 10/09/2024 at 03:48 PM EDT Sign off status: Pending * Provider: Debora Chris Date: 0 06/08/2024 Generated for Printi ng/Faxing/eTransmitting on: 0 10/09/2024 03:48 PM EDT
--- OUTSIDE RECORDS SUMMARY | 2024-06-11 09:30 | XMS_ITS ---
Author Organization [facility] Address [address] [place] [address] Care Team Providers Care Physics Teacher Name Role Phone Katie Monroe Primary Care Provider Ines Sauceda Unavailable [phone] REASON FOR VISIT FILLING Encounters Encounter Location Date Provider Diagnosis [address] [place] [address] 06/11/2024 Ines Hodges Plan Of Treatment No Information Progress Notes * GIANCARLO CELAYA EDOB:1995 (28 yo F)Acc No.[id number]:06/11/2024 Patient: Juan Pablo DAVIS GIANCARLO Peterson Provider: Nagi HODGES DDS :1995 A ge:28 Y S ex:Female Date:06/11/2024 Address:[address] [place] [address], [id number] Pcp:Katie Monroe Subjective: * Chief Complaints: * 1 . FILLING. * Medical History: Objective: * Vitals: Assessment: Plan: * Treatment: * Images: * Electronic signature of Elsie Hodges DDS on 10/09/2024 at 03:47 PM EDT Sign off status: Pending * Provider: Nagi HODGES DDS Date: 0 06/11/2024 Generated for Printi ng/Faxing/eTransmitting on: 0 10/09/2024 03:47 PM EDT
--- OUTSIDE RECORDS SUMMARY | 2024-08-03 10:30 | XMS_ITS ---
Author Organization [facility] Address [address] [place] [address] Care Team Providers Care Hand Former Helper Name Role Phone Katie Monroe Primary Care Provider Ines Sauceda Unavailable REASON FOR VISIT FILLING Encounters Encounter Location Date Provider Diagnosis [address] [place] [address] 08/03/2024 Ines Hodges Plan Of Treatment No Information Progress Notes * GIANCARLO CELAYA EDOB:1995 (28 yo F)Acc No.[id number]:08/03/2024 Patient: Juan Pablo DAVIS GIANCARLO Peterson Provider: Nagi HODGES DDS :1995 A ge:28 Y S ex:Female Date:08/03/2024 Address:[address] [place] [address], [id number] Pcp:Katie Monroe Subjective: * Chief Complaints: * 1 . FILLING. * Medical History: Objective: * Vitals: Assessment: Plan: * Treatment: * Images: * Electronic signature of Elsie Hodges DDS on 10/09/2024 at 03:48 PM EDT Sign off status: Pending * Provider: Nagi HODGES DDS Date: 08/03/2024 Generated for Printi ng/Faxing/eTransmitting on: 0 10/09/2024 03:48 PM EDT
--- OUTSIDE RECORDS SUMMARY | 2024-10-02 09:10 | XMS_ITS | Encounter Summary ---
Author Organization [facility] Address [address] [facility] [place] [address] Care Team Providers Care Miter Grinder Operator Name Role Phone Unallocated, Noms Provider [facility] Reason for Visit * Reason Comments Routine Visit Encounter Details Date Type Department Care Team (Late st Contact Info) Description 10/02/2024 9:10 AM EDT Routine [facility] BCP OB [address] [facility] [place] [phone] Cheryl Baugh PA [address] [place] [address] Dr [place], [id number] Third trimester ; 34 weeks gestation of [...] Care Team (Late st Contact Info) Description 10/16/2024 10:10 AM EDT Routine [facility] BCP OB [address] [facility] [place] [address] Eleazar Lilly, [address] [place] [address] documented as of this encounter Visit Diagnoses Diagnosis Third trimester state, incidental 34 weeks gestation of BV (bacterial vaginosis) Unspecified vaginitis and vulvovaginitis documented in this encounter Care Teams Miter Grinder Operator Relationship Specialty Start Date End Date Unallocated, Noms Provider, [place] [address] PCP - General Family Medicine 02/28/24 documented as of this encounter
--- NOTE | 2024-10-09 | US_ITS ---
[place] [id number] Patient Name: GIANCARLO CELAYA MRN: [id number] date: 1995 Sex: F Assigned Patient Location: [facility] Current Patient Location: [facility] Accession/Order Number: [id number] Exam Date: 10/09/2024 16:46 Report Date: 10/09/2024 16:48 At the request of: AMALIA CASILLAS DO Procedure: US OB BPP w non-stress Ultrasound biophysical profile HISTORY: True knot the umbilical cord Adequate breathing movement, gross body movement, tone and amniotic fluid volume for total score of 8 out of 8. The amniotic fluid index is 12.3cm within normal limits. The heart rate 141 bpm. Possible nuchal cord. Possible umbilical knot. US/US OB BPP w non-stress IMPRESSION: Adequate ultrasound biophysical profile Impression dictated by: Ty Katz M.D. 10/09/2024 4:48 PM Dictation Location: [employer] Electronically authenticated by: [id number] Y Date: 10/09/2024 16:48
--- OUTSIDE RECORDS SUMMARY | 2024-10-09 15:48 | XMS_ITS | Clinical Summary ---
Author Organization Martir Young [facility] Address [address] [place] [address] Care Team Providers Care Supervisor Warping Department Name Role Phone Unavailable Primary Care Provider [...] Plan of Treatment Not on file Insurance [place]
--- OUTSIDE RECORDS SUMMARY | 2024-10-09 15:48 | XMS_ITS | Encounter Summary ---
Author Organization [facility] Address [address] [facility] [place] [address] Care Team Providers Care Certified Nurse Midwife Name Role Phone Unallocated, Noms Provider Primary Care Provi [facility] Reason for Visit * Reason Onset Date Comments Med Refill 09/27/2024 Encounter Details Date Type Department Care Team (Late st Contact Info) Description 09/27/2024 Refill [facility] [address] [facility] [place] [address] Nimco Mojica LPN [address] [place] [address] Nausea and vomiting in Social [...] AM EDT Routine [facility] [address] [facility] [place] [address] Eleazar Lilly, [address] [place] [address] documented as of this encounter Visit Diagnoses Diagnosis Nausea and vomiting in Unspecified vomiting of , unspecified as to episode of care documented in this encounter Care Teams Certified Nurse Midwife Relationship Specialty Start Date End Date Unallocated, Noms Provider, [place] [address] PCP - General Family Medicine 02/28/24 documented as of this encounter
--- OUTSIDE RECORDS SUMMARY | 2024-10-09 15:48 | XMS_ITS | Encounter Summary ---
Author Organization [facility] Address [address] [facility] [place] [address] Care Team Providers Care Visual Basic Developer Name Role Phone LuizCorwin olivarez Primary Care Provider [phone] Unallocated, Noms Provider Primary Care Provi [facility] Encounter Details Date Type Department Care Team (Late st Contact Info) Description 02/21/2024 Orders Only [facility] B[facility] OB [address] [place] [address] Eleazar Lilly DO [facility] [address] [place], [place] [phone] Left ovarian cyst Social History Tobacco Use [...] Department Care Team (Late Contact Info) Description 10/16/2024 10:10 AM EDT Routine [facility] B[facility] OB [address] [place] [address] Eleazar Lilly, DO [address] [place] [address] Scheduled Orders Name Type Priority Associated Diagnoses Orde r Schedule hCG, quantitative Lab Routine Left ovarian cyst Expected: 02/21/2024 (Approximate), Expires: 02/20/2025 documented as of this encounter Visit Diagnoses Diagnosis Left ovarian cyst Other and unspecified ovarian cyst documented in this encounter Care Teams Visual Basic Developer Relationship Specialty Start Date End Date Corwin Dee DO [address] [place] [address] PCP - General Family Medicine 09/14/22 02/27/24 Unallocated, Noms Provider, [place] [address] PCP - General Family Medicine 02/28/24 documented as of this encounter
--- OUTSIDE RECORDS SUMMARY | 2024-10-09 15:48 | XMS_ITS | Encounter Summary ---
Author Organization [facility] Address [address] [facility] [place] [address] Care Team Providers Care Methods Examiner Name Role Phone Unallocated, Noms Provider Primary Care [facility] Encounter Details Date Type Department Care Team (Late st Contact Info) Description 07/09/2024 Abstract [facility] [address] [facility] [place] [phone] Eleazar Lilly DO [address] [place], [facility] Social History Tobacco Use Types [...] Routine [facility] BCP OB [address] [place] [phone] Eleazar Lilly, DO [address] [place] [address] documented as of this encounter Visit Diagnoses Not on filedocumented in this encounter Care Teams Methods Examiner Relationship Specialty Start Date End Date Unallocated, Noms Provider, [address] [place], [place] [id number] PCP - General Family Medicine 02/28/24 documented as of this encounter
--- OUTSIDE RECORDS SUMMARY | 2024-10-09 15:48 | XMS_ITS | Encounter Summary ---
Author Organization [facility] Address [address] [facility] [place] [address] Care Team Providers Care Machined Parts Metal Sprayer Name Role Phone Unallocated, Noms Provider Primary Care [facility] Encounter Details Date Type Department Care Team (Late st Contact Info) Description 03/23/2024 Abstract [facility] [address] [facility] [place] [phone] Eleazar Lilly DO [address] [place], [facility] Social History Tobacco Use Types Packs/Day [...] Routine [facility] BCP OB [address] [place] [address] Eleazar Lilly, DO [address] [place], [place] [address] documented as of this encounter Visit Diagnoses Not on filedocumented in this encounter Care Teams Machined Parts Metal Sprayer Relationship Specialty Start Date End Date Unallocated, Noms Provider, [address] [place], [place] [address] PCP - General Family Medicine 02/28/24 documented as of this encounter
--- OUTSIDE RECORDS SUMMARY | 2024-10-09 15:48 | XMS_ITS | Encounter Summary ---
Author Organization [facility] Address [address] [place] [address] Care Team Providers Care Neonatal Icu Coordinator Name Role Phone Unallocated, Noms Provider [facility] Encounter Details Date Type Department Care Team (Late st Contact Info) Description 10/02/2024 Clinisync Result Encounter [facility] External Department Unsolicited Amalia Lilly, DO [address] [place] [address] Social History Tobacco Use Types Packs/Day Years [...] Routine [facility] BCP OB [address] [place] [phone] Amalia Lilly DO [address] [place], [place] [phone] documented as of this encounter Procedures Procedure Name Priority Date/Time Associated Diagnosis Comments US OB BPP W NON-STRESS 10/02/2024 12:43 PM EDT documented in this encounter Results * US OB BPP W NON-STRESS (10/02/2024 12:43 PM EDT) Anatomical Region Laterality Modality Other 10/02/2024 12:4 3 PM EDT Narrative 10/02/2024 12:46 [place] [address] Ultrasound Report Signed Patient: GIANCARLO CELAYA MR#: [id number] : 1995 Acct:[id number] Age/Sex: 28 / F ADM Date: 10/02/24 Loc: US Attending Dr: Amalia Lilly D.O. Ordering Physician: Amalia Lilly D.O. Date of Service: 10/02/24 Procedure(s): US OB BPP w non-stress Accession Number(s): [id number] cc: Amalia Lilly D.O.; LUDY GRAFF [place] [address] Patient Name: GIANCARLO CELAYA MRN: [id number] date: 1995 Sex: F Assigned Patient Location: [facility] Current Patient Location: [place] Accession/Order Number: [id number] Exam Date: 10/02/2024 12:41 Report Date: 10/02/2024 12:43 At the request of: AMALIA LILLY DO [...] Anand M.D. 10/02/2024 12:43 PM Dictation Location: [place] [address] Electronically authenticated by: [id number] Y Date: 10/02/2024 12:43 Dictated By: Yaneli Anand M.D. Signed By: 10/02/24 1246 DD/ 1243 TD/TT: Purchasing Contracting Clerk: Procedure Note Radiology, Radiologist, - 10/02/2024 [place] [address] Ultrasound Report Signed Patient: GIANCARLO CELAYA EMR#: [id number] : 1995Acct:[id number] Age/Sex: Date: 10/02/24 Loc: US Attending Dr: Amalia Lilly D.O. Ordering Physician: Amalia Lilly D.O. Date of Service: 10/02/24 Procedure(s): US OB BPP w non-stress Accession Number(s): [id number] cc: Amalia Lilly D.O.; LUDY GRAFF [place] [id number] Patient Name: GIANCARLO CELAYA MRN: [id number] date: 1995 Sex: F Assigned Patient Location: [facility] Current Patient Location: [place] Accession/Order Number: [id number] Exam Date: 10/02/2024 12:41 Report Date: 10/02/2024 12:43 At the request of: AMALIA LILLY DO Procedure: US OB BPP w non-stress BIOPHYSICAL PROFILE: CLINICAL INFORMATION: True umbilical knot O69.2XX0 COMPARISON: 09/25/2024 There is a single live intrauterine gestation in cephalic presentation.The reported age is 34 weeks 4 days. The heart rate measures 131 beats per minute. FINDINGS: TONE: 1 or more episodes of activity extension and flexion of extremity or opening and closing of the hand [Y] 2/2 GROSS BODY MOVEMENTS: 3 or more discrete body or limb movements [Y] 2/2 BREATHING MOVEMENTS: 1 or more episodes of breathing lastingat least 30 seconds [Y] 2/2 BHAVANI: A single deepest vertical pocket of amniotic fluid greater than 2 cm [Y] 2/2 BHAVANI: 14.0 cm .) This is in normal range. Total score: 8/8 US/US OB BPP w non-stress IMPRESSION: NORMAL BIOPHYSICAL PROFILE. Impression dictated by: Yaneli Anand M.D. 10/02/2024 12:43 PM Dictation Location: [place] [address] Electronically authenticated by: [id number] Y Date: 2:43 Dictated By: Yaneli Anand M.D. Signed By:10/02/24 1246 DD/ 1243 TD/TT: Purchasing Contracting Clerk: us Amalia Vijaya DO [facility] Final Result documented in this encounter Visit Diagnoses Not on filedocumented in this encounter Care Teams Neonatal Icu Coordinator Relationship Specialty Start Date End Date Unallocated, Noms Provider, [address] [place] [address] PCP - General Family Medicine 02/28/24 documented as of this encounter
--- OUTSIDE RECORDS SUMMARY | 2024-10-09 15:48 | XMS_ITS | Encounter Summary ---
Author Organization [facility] Address [address] [facility] [place] [address] Care Team Providers Care Health/Safety Job Titles Name Role Phone Unallocated, Noms Provider Primary Care [facility] Encounter Details Date Type Department Care Team (Late st Contact Info) Description 05/30/2024 Abstract [facility] [address] [facility] [place] [place] [phone] Eleazar Lilly DO [address] [place], [facility] Social History Tobacco Use Types Packs/Day [...] Routine [facility] BCP OB [address] [place] [address] Eleazar Lilly, DO [address] [place] [address] documented as of this encounter Visit Diagnoses Not on filedocumented in this encounter Care Teams Health/Safety Job Titles Relationship Specialty Start Date End Date Unallocated, Noms Provider, [address] [place], [place] [address] PCP - General Family Medicine 02/28/24 documented as of this encounter
--- OUTSIDE RECORDS SUMMARY | 2024-10-09 15:48 | XMS_ITS | Encounter Summary ---
Author Organization [facility] Address [address] [facility] [place] [address] Care Team Providers Care Medical Biller/Coder Name Role Phone Unallocated, Noms Provider Primary Care [facility] Encounter Details Date Type Department Care Team (Late st Contact Info) Description 04/23/2024 Abstract [facility] OB [address] [facility] [place] [phone] Eleazar Lilly DO [address] [place], [facility] Social History Tobacco Use Types Packs/Day [...] Routine [facility] BCP OB [address] [place] [address] Eleazar Lilly, DO [address] [place], [place] [address] documented as of this encounter Visit Diagnoses Not on filedocumented in this encounter Care Teams Medical Biller/Coder Relationship Specialty Start Date End Date Unallocated, Noms Provider, [address] [place], [place] [address] PCP - General Family Medicine 02/28/24 documented as of this encounter
--- OUTSIDE RECORDS SUMMARY | 2024-10-09 15:48 | XMS_ITS | Patient Health Record ---
Author Organization [facility] Address [address] [place] [address] Care Team Providers Care Auto Mechanics Instructor Name Role Phone Katie Monroe Primary Care Provider [phone] Sauceda Unavailable Karthik Castro Unavailable [phone] Swapna Chris Unavailable [phone] Reason For Referral No Information Encounters Encounter Location Date Provider Diagnosis [facility] [address] [place] [address] 01/04/2024 Katie Monroe [facility] [address] [place] [address] 12/30/2023 Katie Monroe Necrosis of pulp K04.1 [...] Coverage Start Date Coverage End Date [employer] [address] [place] [address] [id number] GIANCARLO CELAYA Self - patient is the insured [employer] [facility] [employer] [place] [employer] [address] [place] [address] [id number] GIANCARLO CELAYA Self - patient is the insured 4
--- OUTSIDE RECORDS SUMMARY | 2024-10-09 15:48 | XMS_ITS | Encounter Summary ---
Author Organization [facility] Address [address] [facility] [place] [address] Care Team Providers Care Complaint Coordinator Name Role Phone Unallocated, Noms Provider Primary Care [facility] Encounter Details Date Type Department Care Team (Late st Contact Info) Description 10/02/2024 Bamboo flowsheet [facility] BCP OB [address] [facility] [place] [phone] Cheryl Baugh PA [address] [facility] [address] [place], [facility] Social History Tobacco Use Types [...] AM EDT Routine [facility] BCP OB [address] [facility] [place] [address] Eleazar Lilly, DO [address] [facility] [address] [place], [place] [address] documented as of this encounter Visit Diagnoses Not on filedocumented in this encounter Care Teams Complaint Coordinator Relationship Specialty Start Date End Date Unallocated, Noms Provider, [address] [place] [address] PCP - General Family Medicine 02/28/24 documented as of this encounter
--- OUTSIDE RECORDS SUMMARY | 2024-10-09 15:48 | XMS_ITS | Clinical Summary ---
[id number] [address] [place] [address] Care Team Providers Care Business Law Teacher Name Role Phone Hima Silver MD Primary Care Provider [phone]- [phone] Social History Tobacco Use Types Packs/Day Years [...] Medical Devices Not on file Care Teams Business Law Teacher Relationship Specialty Start Date End Date Hima Silver MD [address] [place] [address] PCP - General Internal Medicine 09/14/18
--- OUTSIDE RECORDS SUMMARY | 2024-10-09 15:48 | XMS_ITS | Encounter Summary ---
Author Organization [facility] Address [address] [facility] [place] [address] Care Team Providers Care Food Assembler Name Role Phone Unallocated, Noms Provider Primary Care [facility] Encounter Details Date Type Department Care Team (Late st Contact Info) Description 09/24/2024 Telephone [facility] BCP OB [address] [facility] [place] [phone] Nimco Mojica LPN [address] [place] [address] Social History Tobacco Use Types [...] Routine [facility] BCP OB [address] [facility] [place] [address] Eleazar Lilly, DO [address] [facility] [place] [address] Scheduled Orders Name Type Priority Associated Diagnoses [...] disorder documented in this encounter Care Teams Food Assembler Relationship Specialty Start Date End Date Unallocated, Noms Provider, [place] [address] PCP - General Family Medicine 02/28/24 documented as of this encounter
--- OUTSIDE RECORDS SUMMARY | 2024-10-09 15:48 | XMS_ITS | Encounter Summary ---
Author Organization [facility] Address [address] [facility] [place] [address] Care Team Providers Care Career Coach Name Role Phone Unallocated, Noms Provider Primary Care [facility] Encounter Details Date Type Department Care Team (Late st Contact Info) Description 09/24/2024 Results Follow-Up [facility] BCP OB [address] [facility] [place] [place] [phone] Nimco Mojica LPN [address] [place] [id number] Social History Tobacco Use Types Packs/Day Years [...] AM EDT Routine [facility] BCP OB [address] [facility] [place] [address] Eleazar Lilly, [address] [place] [address] documented as of this encounter Visit Diagnoses Not on filedocumented in this encounter Care Teams Career Coach Relationship Specialty Start Date End Date Unallocated, Noms Provider, [place] [address] PCP - General Family Medicine 02/28/24 documented as of this encounter
--- OUTSIDE RECORDS SUMMARY | 2024-10-09 15:48 | XMS_ITS | Encounter Summary ---
Author Organization [facility] Address [address] [facility] [place] [address] Care Team Providers Care Warp Coiler Name Role Phone Unallocated, Noms Provider Primary Care [facility] Encounter Details Date Type Department Care Team (Late st Contact Info) Description 03/17/[address] [facility] OB [address] [facility] [phone] Eleazar Lilly DO [address] [place], [facility] Social History Tobacco Use Types [...] Routine [facility] BCP OB [address] [place] [phone] Eleazar Lilly, DO [address] [place], [place] [phone] documented as of this encounter Visit Diagnoses Not on filedocumented in this encounter Care Teams Warp Coiler Relationship Specialty Start Date End Date Unallocated, Noms Provider, [address] [place], [place] [phone] PCP - General Family Medicine 02/28/24 documented as of this encounter
--- OUTSIDE RECORDS SUMMARY | 2024-10-09 15:48 | XMS_ITS | Clinical Summary ---
Author Organization [facility] Address [address] [place] [address] Care Team Providers Care Recovery Room Rn Name Role Phone Unallocated, Noms Provider Primary Care [facility] Allergies No known active allergies Medications fluticasone (Flonase) 50 MCG/ACT nasal spray USE 1 SPRAY IN EACH NOSTRIL TWICE A DAY 05/18/19 25 Active ondansetron ODT (Zofran-ODT) 4 MG [...] doses 30 tablet 3 06/26/19 25 025 Discontinu ed(Reorder ) iron polysaccharides (ProFe) 391.3 (180 Fe) MG capsuleIndications: Low iron Take 1 capsule (391.3 mg) by mouth Daily 30 capsule 6 09/04/19 25 025 metroNIDAZOLE (Metrogel) 0.75 % vaginal gelIndications:BV (bacterial vaginosis) Insert into the vagina Daily for 5 days 70 g 10/03/19 25 025 Active Problems Problem Noted Date Diagnosed Date 12 weeks gestation of 04/30/2024 Second trimester 04/30/2024 Nausea and vomiting in 04/16/2024 Estimated Date of Delivery Comme nts Yes 11/09/2024 Based on Ultraso und Encounters Date Type Department Care Team Description 10/02/2024 9:10 AM EDT Routine NOMS [address] [place] [address] Cheryl Baugh PA Third trimester ; 34 weeks gestation of ; BV (bacterial vaginosis) 10/02/2024 Clinisync Result Encounter NOMS External Department Unsolicited Amalia Lilly, DO 10/02/2024 Bamboo flowsheet [facility] OB [address] [place] [address] [place] [address] Cheryl Baugh PA 09/27/2024 Refill [facility] OB [address] [facility] [place] [address] Nimco Mojica LPN Nausea and vomiting in 09/25/2024 Clinisync Result Encounter NOMS External Department Unsolicited Amalia Lilly, 09/24/2024 Clinisync Result Encounter NOMS External Department Unsolicited Gaye Vázquez NP 09/24/2024 Results Follow-Up [facility] OB [address] [place] [address] Nimco Mojica LPN 09/24/2024 Telephone [facility] OB [address] [place] [address] [place] [address] Nimco Mojica LPN 09/21/2024 Telephone [facility] OB [address] [place] [address] Monica Ayala LPN 09/21/2024 Telephone [facility] OB [address] [place] [address] [place] [address] Shalonda [place] MA 09/19/2024 Clinisync Result Encounter NOMS External Department Unsolicited Gaye Vázquez NP 09/19/2024 Telephone [facility] BCP OB [address] [facility] [place] [address] Shalonda [place] MA 09/18/2024 Clinisync Result Encounter NOMS External Department Unsolicited Amalia Lilly, 09/13/2024 10:30 AM EDT Routine [facility] BCP OB [address] [facility] [place] [address] Amalia Lilly, Third trimester ; 31 weeks gestation of ; size inconsistent with dates 09/13/2024 Bamboo flowsheet [facility] BCP OB [address] [facility] [place] [address] Amalia Lilly, 09/03/2024 Telephone [facility] BCP OB [address] [facility] [place] [address] Nga Cormier MA 08/20/2024 9:50 AM EDT Routine [facility] BCP OB [address] [facility] [place] [address] Amalia Lilly, Third trimester 08/20/2024 Clinisync Result Encounter NOMS External Department Unsolicited Gaye Vázquez, CHERI 08/20/2024 Bamboo flowsheet [facility] BCP OB [address] [facility] [place] [address] Amalia Lilly, DO 07/23/2024 10:20 AM EDT Routine [facility] BCP OB [address] [facility] [place] [address] Cheryl Baugh PA 24 weeks gestation of ; Second trimester ; Diabetes mellitus screening 07/23/2024 9:00 AM EDT Ancillary Procedure [facility] BCP OB [address] [place] [address] Low-lying placenta 07/12/2024 Telephone [facility] BCP OB [address] [place] [address] Monica Ayala LPN 07/11/2024 Telephone [facility] OB [address] [place] [address] Amalia Lilly, 07/11/2024 Telephone [facility] OB [address] [place] [address] Cheryl Baugh PA 07/09/2024 Abstract [facility] [address] [place] [address] Amalia Lilly, 07/09/2024 Clinisync Result Encounter NOMS External Department [...] 12.8 oz) 10/02/2024 9:28 AM EDT Height 154.9 cm (5' 1 ) 02/08/2024 1:21 PM EDT Body Mass Index 26.79 02/08/2024 1:21 PM EDT Plan of Treatment Upcoming Encounters Date Type Department Care Team (Late st Contact Info) Description 10/16/2024 10:10 AM EDT Routine [facility] OB [address] [facility] [place] [place] [address] Amalia Lilly, [facility] [place] [address] Health Maintenance Due Date Last Done Comments Influenza Vaccine (Season Ended) 2025 Procedures Procedure Name Priority Date/Time Associated Diagnosis Comments US OB BPP W NON-STRESS 10/02/2024 12:43 PM EDT US OB BPP W NON-STRESS 09/25/2024 4:35 PM EDT [facility] BILE ACIDS FRACT BLD Routine 09/24/2024 4:47 PM EDT ALL HEPATITIS C AB Routine 09/24/2024 4: 47 PM EDT ALL THYROID STIM HORMONE Routine 09/24/2024 4:47 PM EDT ALL CBC WITH AUTO DIFF Routine 09/24/2024 4:47 PM EDT [facility] CMP (CMP) (FOR REMOTE [facility] USE) Routine 09/19/2024 2:31 PM EDT US [...] BPP W NON-STRESS (10/02/2024 12:43 PM EDT) Only the most recent of2 resultswithin the time period is included. Anatomical Region Laterality Modality Other 10/02/2024 12:4 3 PM EDT Narrative 10/02/2024 12:[place] [address] Ultrasound Report Signed Patient: GIANCARLO CELAYA MR#: [id number] : 1995 Acct:[id number] Age/Sex: 28 / F ADM Date: 10/02/24 Loc: US Attending Dr: Amalia Lilly D.O. Ordering Physician: Amalia Lilly D.O. Date of Service: 10/02/24 Procedure(s): US OB BPP w non-stress Accession Number(s): [id number] cc: Amalia Lilly D.O.; LUDY GRAFF [place] [phone] Patient Name: GIANCARLO CELAYA MRN: [id number] date: 1995 Sex: F Assigned Patient Location: [facility] Current Patient Location: US Accession/Order Number: [id number] Exam Date: 10/02/2024 12:41 Report Date: 10/02/2024 [...] Anand M.D. 10/02/2024 12:43 PM Dictation Location: [place] [address] Electronically authenticated by: [id number] Y Date: 10/02/2024 12:43 Dictated By: Yaneli Anand M.D. Signed By: 10/02/24 1246 DD/ 1243 TD/TT: Network Support Engineer: Procedure Note Radiology, Radiologist, MD - 10/02/2024 [place] [address] Ultrasound Report Signed Patient: GIANCARLO CELAYA EMR#: [id number] : 1995Acct:[id number] Age/Sex: M Date: 10/02/24 Loc: US Attending Dr: Amalia Lilly D.O. Ordering Physician: Amalia Lilly D.O. Date of Service: 10/02/24 Procedure(s): US OB BPP w non-stress Accession Number(s): [id number] cc: Amalia Lilly D.O.; LUDY GRAFF [place] [address] Patient Name: GIANCARLO CELAYA MRN: [facility]:[id number] date: 1995 Sex: F Assigned Patient Location: [facility] Current Patient Location: US Accession/Order Number: [id number] Exam Date: 10/02/2024 12:41 Report Date: 10/02/2024 [...] fluid greater than 2 cm [Y] 2/2 BHVAANI: 14.0 cm .) This is in normal range. Total score: 8/8 US/US OB BPP w non-stress IMPRESSION: NORMAL BIOPHYSICAL PROFILE. Impression dictated by: Yaneli Anand M.D. 10/02/2024 12:43 PM Dictation Location: [place] [address] Electronically authenticated by: [id number] Y Date: 2:43 Dictated By: Yaneli Anand M.D. Signed By:10/02/24 1246 DD/ 1243 TD/TT: Network Support Engineer: Amalia Lilly DO [facility] Final Result * [facility] BILE ACIDS FRACT BLD (09/24/2024 4:47 PM EDT) BILE ACIDS 6.8 0.0 - 10.0 umol/L [facility] Comment: Performed at: [address] [id number] Manager Document: Mello Godoy MD, Phone: [phone] 09/24/2024 4:47 PM EDT 09/24/2024 4:47 PM EDT Narrative [facility] - 09/27/2024 12:16 AM EDT Gaye Vázquez NP [facility] Final Result [facility] * ALL THYROID STIM HORMONE (09/24/2024 4:47 PM EDT) THYROID STIMULATING HORMONE 0.964 0.358 - 3.740 uIU/mL [facility] 09/24/2024 4:47 PM EDT 09/24/2024 4:47 PM EDT Narrative [facility] - 09/24/2024 5:57 PM EDT Gaye Vázquez NP [facility] Final Result Performing Organization Address City/[facility]/ZIP Co de Phone Number [facility] * ALL HEPATITIS C AB (09/24/2024 4:47 PM EDT) Pathologist [facility] HCV ANTIBODY Non Reactive Non Reactive [facility] Comment: HCV antibody alone does not differentiate between previously resolved infection and active infection. Equivocal and Reactive HCV antibody results should be followed up with an HCV RNA test to support the diagnosis of active HCV infection. Performed at: [address] [id number] Manager Document: Sheldon Polo PhD, Phone: [phone] 09/24/2024 4:47 PM EDT 09/24/2024 4:47 PM EDT Narrative [facility] - 09/26/2024 5:08 AM EDT Gaye Vázquez NP [facility] Final Result Performing Organization Address [facility] Co de Phone Number [facility] * (ABNORMAL) ALL CBC WITH AUTO DIFF (09/24/2024 4:47 PM EDT) Only the most recent of2 resultswithin the time period is included. Pathologist [facility] TB WBC 9.8 4.0 - 11.0 10 3/uL [facility] RBC 3.72(L) 4.20 - 5.40 10 6/uL [facility] HGB 11.6(L) 12.0 - 16.0 g/dL [facility] TB HCT 32.7(L) 36.0 - 48.0 % [facility] MCV 87.9 81.0 - 99.0 fL [facility] MCH 31.2 26.7 - 34.0 pg [facility] MCHC 35.5(H) 29.9 - 35.2 g/dL [facility] TB RDW 12.9 11.0 - 15.0 % [facility] [...] Gaye Vázquez NP [facility] Final Result [facility] * (ABNORMAL) [facility] CMP (CMP) (FOR REMOTE [facility] USE) (09/19/2024 2:31 PM EDT) SODIUM 138 136 - 145 mmol/L [facility] POTASSIUM 3.7 3.5 - 5.1 mmol/L [facility] CHLORIDE 104 98 - 107 mmol/L [facility] CARBON DIOXIDE 25.1 21.0 - 32.0 mmol/L [facility] ANION GAP 12.6 [facility] GLUCOSE 101 74 - 106 mg/dL [facility] BLOOD UREA NITROGEN 7.0 7.0 - 18.0 mg/dL [facility] CREATININE 0.60 0.55 - 1.02 mg/dL [facility] EGFR-AF GABONESE >60 >=60 mL/min/1. 73m 2 [facility] EGFR-NON AF GABONESE >60 >=60 mL/min/1. 73m 2 [facility] BUN [...] NP [facility] Final Result Performing Organization Address City/State/[facility] Co de Phone Number [facility] * US OB GROWTH (09/18/2024 4:30 PM EDT) Anatomical Region Laterality Modality Other 09/18/2024 4:30 PM EDT Narrative 09/18/2024 4:32 PM EDT [address] [address] Ultrasound Report Signed Patient: GIANCARLO CELAYA MR#: [id number] : 1995 Acct:[id number] Age/Sex: 28 / F ADM Date: 09/18/24 Loc: US Attending Dr: Amalia Lilly D.O. Ordering Physician: Amalia Lilly D.O. Date of Service: 09/18/24 Procedure(s): US OB growth Accession Number(s): [id number] cc: Amalia Lilly D.O.; LUDY GRAFF [address] [address] Patient Name: GIANCARLO CELAYA MRN: [id number] date: 1995 Sex: F Assigned Patient Location: Current Patient Location: US Accession/Order Number: [id number] Exam Date: 09/18/2024 16:23 Report Date: 09/18/2024 [...] Smith M.D. 09/18/2024 4:30 PM Dictation Location: [place] [address] Electronically authenticated by: [id number] Y Date: 09/18/2024 16:30 Dictated By: Wally Smith M.D. Signed By: 09/18/24 1632 DD/ 1630 TD/TT: Network Support Engineer: Procedure Note Radiology, Radiologist, MD - 09/18/2024 [place] [address] Ultrasound Report Signed Patient: GIANCARLO CELAYA EMR#: [id number] : 1995Acct:[id number] Age/Sex: 28 / FADM Date: 09/18/24 Loc: US Attending Dr: Amalia Lilly D.O. Ordering Physician: Amalia Lilly D.O. Date of Service: 09/18/24 Procedure(s): US OB growth Accession Number(s): [id number] cc: Amalia Lilly D.O.; LUDY GRAFF [place] [phone] Patient Name: GIANCARLO CELAYA MRN: [facility]:[id number] date: 1995 Sex: F Assigned Patient Location: Current Patient Location: US Accession/Order Number: [id number] Exam Date: 09/18/2024 16:23 Report Date: 09/18/2024 [...] Smith M.D. 09/18/2024 4:30 PM Dictation Location: [place] [address] Electronically authenticated by: [id number] Y Date: 6:30 Dictated By: Wally Smith M.D. Signed By:09/18/24 1632 DD/ 1630 TD/TT: Network Support Engineer: us Amalia Vijaya DO [facility] Final Result * (ABNORMAL) [...] GLYCOHEMOGLOBIN A1C 4.7 4.5 - 6.2 % [facility] Comment: ADA RECOMMENDED LIMIT 4.0 - 6.0 ADA THERAPEUTIC TARGET < 7.0 ACTION SUGGESTED > 7.0 ESTIMATED AVERAGE GLUCOSE 88 mg/dL [facility] 08/20/2024 10:5 4 AM EDT 08/20/2024 10:54 AM EDT Narrative [facility] - 08/20/2024 11:40 AM EDT Gaye Vázquez NP [facility] Final Result [facility] * US OB limited 1+ fetuses (07/23/2024 [...] II, MD, PHD at 24-Jul-2024 12:32:57 AM [facility] Procedure Note Nikita Vasquez MD - [...] VASQUEZ II, MD, PHDat 24-Jul-2024 12:32:57 AM [facility] us Amalia Vijaya DO IMG OB US PROCEDURES Final Resul t * (ABNORMAL) AFP, SERUM, OPEN SPINA BIFIDA (07/09/2024 11:00 AM EST) [facility] RESULTS Report . [facility] TEST RESULTS: *Screen Positive*(A) . [facility] GEST. AGE ON COLLECTION DATE 18.0 . weeks [facility] GESTAT. AGE BASED ON As provided . [facility] Comment: Recalculations are not recommended when gestational dating by LMP and ultrasound are within 10 days. [age] [facility] RACE . [facility] WEIGHT 119 . lbs [facility] INSULIN DEP DIABETES No . [facility] MULTIPLE GESTATION No . [facility] AFP VALUE 133.2 . ng/mL [facility] AFP MOM 2.63 . [facility] OSBR RISK 1 IN 225 . [facility] INTERPRETATION Comment . [facility] Comment: Interpretation: Screen Positive for OSB [...] Customer Services to discuss available options. The [employer] recommends amniocentesis [...] amniocentesis are appropriate options. COMMENT: Comment . [facility] Comment: Ronit Moncada, Ph.D., [facility] Director References: Available Upon Request. Multiples Of Median Cutoffs For AFP Elevations Giles 2.5 Black 2.8 IDD 2.0 Twins 4.5 Abbreviation Definitions IDD - Insulin Dep Diabetes OSBR - Open Spina Bifida Risk For further inquiries contact [employer] [facility] at [phone]. This test was developed and its performance characteristics determined by [employer]. It has not been cleared or approved by the Food and Drug Administration. Performed at: [facility] [address] [facility], [place], [place] [id number] Manager Document: Darion Albrecht [facility], Phone: [phone] 07/09/2024 11:0 0 AM EST 07/09/2024 11:00 AM EST Narrative [facility] - 07/11/2024 2:09 PM EST Specimen Comment: SEE END OF THIS REPORT FOR CORRECTED REPORT COMMENTS N N ULTRASOUND [phone] 18 N 1 119 N N N N N White/ Cheryl MARIE LAB BLOOD ORDERABLES Edited Resu lt - Final [facility] TB from Last 3 Months Insurance [facility] MEDICAID [place] Care Teams Recovery Room Rn Relationship Specialty Start Date End Date Unallocated, Noms Aidan, [address] [place] [address] PCP - General Family Medicine 02/28/24
--- OUTSIDE RECORDS SUMMARY | 2024-10-09 15:48 | XMS_ITS | Encounter Summary ---
Author Organization [facility] Address [address] [place] [address] Care Team Providers Care Pharmacy Technician Infusion Name Role Phone Unallocated, Noms Provider [facility] Encounter Details Date Type Department Care Team (Late st Contact Info) Description 09/25/2024 Clinisync Result Encounter NOMS External Department Unsolicited Amalia Lilly, DO [address] [place] [address] Social History Tobacco Use Types Packs/Day Years [...] Routine [facility]OM[facility] BCP OB [address] [place] [phone] Amalia Lilly DO [address] [place] [address] documented as of this encounter Procedures Procedure Name Priority Date/Time Associated Diagnosis Comments US OB BPP W NON-STRESS 09/25/2024 4:35 PM EDT documented in this encounter Results * US OB BPP W NON-STRESS (09/25/2024 4:35 PM EDT) Anatomical Region Laterality Modality Other 09/25/2024 4:35 PM EDT Narrative 09/25/2024 4:37 [place] [address] Ultrasound Report Signed Patient: GIANCARLO CELAYA MR#: [id number] : 1995 Acct:[id number] Age/Sex: 28 / F ADM Date: 09/25/24 Loc: US Attending Dr: Amalia Lilly D.O. Ordering Physician: Amalia Lilly D.O. Date of Service: 09/25/24 Procedure(s): US OB BPP w non-stress Accession Number(s): [id number] cc: Amalia Lilly D.O.; LUDY GRAFF [place] [address] Patient Name: GIANCARLO CELAYA MRN: [id number] date: 1995 Sex: F Assigned Patient Location: Current Patient Location: Accession/Order Number: [id number] Exam Date: 09/25/2024 16:34 Report Date: 09/25/2024 [...] Katz M.D. 09/25/2024 4:35 PM Dictation Location[facility] Electronically authenticated by: [id number] Y Date: 09/25/2024 16:35 Dictated By: Ty Katz D.O. Signed By: 09/25/241636 DD/ 34 TD/TT: Cuff Setter Lockstitch: Procedure Note Radiology, Radiologist, - 09/25/2024 [place] [address] Ultrasound Report Signed Patient: GIANCARLO CELAYA EMR#: [id number] : 1995Acct:[id number] Age/Sex: 28 / FADM Date: 09/25/24 Loc: US Attending Dr: Amalia Lilly D.O. Ordering Physician: Amalia Lilly D.O. Date of Service: 09/25/24 Procedure(s): US OB BPP w non-stress Accession Number(s): [id number] cc: Amalia Lilly D.O.; LUDY GRAFF [place] [phone] Patient Name: GIANCARLO CELAYA MRN: [id number] date: 1995 Sex: F Assigned Patient Location: US Current Patient Location: US Accession/Order Number: [id number] Exam Date: 09/25/2024 16:34 Report Date: 09/25/2024 [...] Katz M.D. 09/25/2024 4:35 PM Dictation Location: [facility] Electronically authenticated by: [id number] Y Date: 6:35 Dictated By: Ty Katz D.O. Signed By:09/25/241636 DD/ 1635 TD/TT: Cuff Setter Lockstitch: us Amalia Vijaya DO [facility] Final Result documented in this encounter Visit Diagnoses Not on filedocumented in this encounter Care Teams Pharmacy Technician Infusion Relationship Specialty Start Date End Date Unallocated, Noms Provider, [address] [place] [address] PCP - General Family Medicine 02/28/24 documented as of this encounter
--- OUTSIDE RECORDS SUMMARY | 2024-10-09 15:48 | XMS_ITS | Encounter Summary ---
Author Organization [facility] Address [address] [facility] [place] [address] Care Team Providers Care Bow Stapler Name Role Phone Unallocated, Noms Provider Primary Care [facility] Encounter Details Date Type Department Care Team (Late st Contact Info) Description 03/23/2024 Abstract [facility] [address] [facility] [place] [phone] Eleazar Lilly DO [address] [place], [facility] Social History Tobacco Use Types Packs/Day [...] Routine [facility]CP [address] [place] [phone] Eleazar Lilly, DO [address] [place], [place] [phone] documented as of this encounter Visit Diagnoses Not on filedocumented in this encounter Care Teams Bow Stapler Relationship Specialty Start Date End Date Unallocated, Noms Provider, [address] [place], [place] [phone] PCP - General Family Medicine 02/28/24 documented as of this encounter
--- OUTSIDE RECORDS SUMMARY | 2024-10-09 15:48 | XMS_ITS | Encounter Summary ---
Author Organization [facility] Address [address] [facility] [place] [address] Care Team Providers Care Vigoureux Printer Name Role Phone Unallocated, Noms Provider Primary Care [facility] Encounter Details Date Type Department Care Team (Late st Contact Info) Description 06/08/2024 Orders Only [facility] BCP OB [address] [place] [phone] Nga Cormier [address] [place] [address] Social History Tobacco Use Types Packs/Day Years [...] [facility] BCP [address] [place] [phone] Eleazar Lilly DO [address] [place], [place] [phone] documented as of this encounter Procedures Procedure Name Priority Date/Time Associated Diagnosis Comments PAP SMEAR Routine 05/28/2024 12:00 AM EST documented in this encounter Results * Pap Smear (05/28/2024 12:00 AM EST) Swab Cervical swab / Unknown Cheryl [facility] ORDERABLES Final Re sult EXTERNAL LAB documented in this encounter Visit Diagnoses Not on filedocumented in this encounter Care Teams Vigoureux Printer Relationship Specialty Start Date End Date Unallocated, Noms MD [facility] [place] [address] PCP - General Family Medicine 02/28/24 documented as of this encounter
[2024-10-09 16:36] VITALS: BP 107/65; PULSE 77
== END 2024-10-09 17:05 | disposition home or self-care (01) ==
LOC: US 15:46 → FBC 15:47
PROVIDERS: PCP Nurse Practitioner Family; Visit Provider Obstetrics & Gynecology
DX: O26.893 Other specified pregnancy related conditions, third trimester (principal); Z3A.35 35 weeks gestation of pregnancy
CPT/HCPCS: 76818

== ENCOUNTER 2024-10-12 07:50 | Outpatient (OUT) | payer MEDICAID, SELFPAY ==
[2024-10-12 08:03] VITALS: BP 121/79; PULSE 86
== END 2024-10-12 08:40 | disposition home or self-care (01) ==
LOC: FBCO 07:51 → FBC 07:53
PROVIDERS: PCP Nurse Practitioner Family; Visit Provider Obstetrics & Gynecology
DX: O35.8XX0 Maternal care for other (suspected) fetal abnormality and damage, not applicable or unspecified (principal); Z3A.36 36 weeks gestation of pregnancy
CPT/HCPCS: 59025

== ENCOUNTER 2024-10-14 11:51 | Observation (INO) | payer MEDICAID, SELFPAY ==
--- OUTSIDE RECORDS SUMMARY | 2010-07-27 16:35 | XMS_ITS | Encounter Summary ---
Author Organization [facility] Address [address] [place] [address] Care Team Providers Care Tin Recovery Worker Name Role Phone Unavailable Primary Care Provider Unavailabl e Encounter Details Date Type Department Care Team (Late st Contact Info) Description 07/27/2010 4:35 PM EDT Hospital Encounter [place] [phone] Social History Tobacco Use Types Packs/Day Years [...]
--- OUTSIDE RECORDS SUMMARY | 2024-06-08 09:30 | XMS_ITS ---
Author Organization [facility] Address [address] [place] [address] Care Team Providers Care Helper Steel Fabrication Name Role Phone Katie Monroe Primary Care Provider [phone] Ines Sauceda Unavailable Swapna Chris Unavailable [phone] REASON FOR VISIT PROPHY Encounters Encounter Location Date Provider Diagnosis [facility] [address] [place] [address] 06/08/2024 Swapna Chris Plan Of Treatment No Information Progress Notes * GIANCARLO CELAYA EDOB:1995 (28 yo F)Acc No.[id number]:06/08/2024 Patient: GIANCARLO DAVIDSON Provider: Debora Chris :1995 A ge:28 Y S ex:Female Date:06/08/2024 Address:[address] [place] [address], [id number] Pcp:Katie Monroe Subjective: * Chief Complaints: * 1 . PROPHY. * Medical History: Objective: * Vitals: Assessment: Plan: * Treatment: * Images: * Electronic signature of Misti Chris on 10/14/2024 at 11:56 AM EDT Sign off status: Pending * Provider: Debora Chris Date: 0 06/08/2024 Generated for Printi ng/Faxing/eTransmitting on: 0 10/14/2024 11:56 AM EDT
--- OUTSIDE RECORDS SUMMARY | 2024-06-11 09:30 | XMS_ITS ---
Author Organization [facility] Address [address] [place] [address] Care Team Providers Care Medical Technician Name Role Phone Katie Monroe Primary Care Provider Ines Sauceda Unavailable REASON FOR VISIT FILLING Encounters Encounter Location Date Provider Diagnosis [address] [place] [address] 06/11/2024 Ines Hodges Plan Of Treatment No Information Progress Notes * GIANCARLO CELAYA EDOB:1995 (28 yo F)Acc No.[id number]:06/11/2024 Patient: Juan Pablo DAVIS GIANCARLO Peterson Provider: Nagi HODGES DDS :1995 A ge:28 Y S ex:Female Date:06/11/2024 Address:[address] [place] [address], [phone] Pcp:Katie Monroe Subjective: * Chief Complaints: * 1 . FILLING. * Medical History: Objective: * Vitals: Assessment: Plan: * Treatment: * Images: * Electronic signature of Elsie Hodges DDS on 10/14/2024 at 11:56 AM EDT Sign off status: Pending * Provider: Nagi HODGES DDS Date: 0 06/11/2024 Generated for Printi ng/Faxing/eTransmitting on: 0 10/14/2024 11:56 AM EDT
--- OUTSIDE RECORDS SUMMARY | 2024-08-03 10:30 | XMS_ITS ---
Author Organization [facility] Address [address] [place] [address] Care Team Providers Care Chaser Helper Name Role Phone Katie Monroe Primary Care Provider Ines Sauceda Unavailable REASON FOR VISIT FILLING Encounters Encounter Location Date Provider Diagnosis [address] [place] [address] 08/03/2024 Ines Hodges Plan Of Treatment No Information Progress Notes * GIANCARLO CELAYA EDOB:1995 (28 yo F)Acc No.[id number]:08/03/2024 Patient: Juan Pablo DAVIS GIANCARLO Peterson Provider: Nagi HODGES DDS :1995 A ge:28 Y S ex:Female Date:08/03/2024 Address:[address] [place] [address], [id number] Pcp:Katie Monroe Subjective: * Chief Complaints: * 1 . FILLING. * Medical History: Objective: * Vitals: Assessment: Plan: * Treatment: * Images: * Electronic signature of Elsie Hodges DDS on 10/14/2024 at 11:56 AM EDT Sign off status: Pending * Provider: Nagi HODGES DDS Date: 0 08/03/2024 Generated for Printi ng/Faxing/eTransmitting on: 0 10/14/2024 11:56 AM EDT
--- OUTSIDE RECORDS SUMMARY | 2024-10-02 09:10 | XMS_ITS | Encounter Summary ---
Author Organization [facility] Address [address] [facility] [place] [address] Care Team Providers Care Technical Professional Name Role Phone Unallocated, Noms Provider [facility] Reason for Visit * Reason Comments Routine Visit Encounter Details Date Type Department Care Team (Late st Contact Info) Description 10/02/2024 9:10 AM EDT Routine [facility] BCP OB [address] [place] [phone] Cheryl Buagh PA [address] [place] [address] Dr [place], [facility] Third trimester ; 34 weeks gestation of [...] Routine N[facility] BCP OB [address] [place] [address] Eleazar Lilly, [address] [place] [address] documented as of this encounter Visit Diagnoses Diagnosis Third trimester state, incidental 34 weeks gestation of BV (bacterial vaginosis) Unspecified vaginitis and vulvovaginitis documented in this encounter Care Teams Technical Professional Relationship Specialty Start Date End Date Unallocated, Noms Provider, [place] [address] PCP - General Family Medicine 02/28/24 documented as of this encounter
--- OUTSIDE RECORDS SUMMARY | 2024-10-14 11:56 | XMS_ITS | Encounter Summary ---
Author Organization [facility] Address [address] [facility] [place] [address] Care Team Providers Care Molder Offbearer Name Role Phone Unallocated, Noms Provider Primary Care [facility] Encounter Details Date Type Department Care Team (Late st Contact Info) Description 09/24/2024 Results Follow-Up [facility] BCP OB [address] [facility] [place] [phone] Nimco Mojica LPN [address] [place] [id number] Social History Tobacco Use Types Packs/Day Years [...] AM EDT Routine [facility] BCP OB [address] [facility] [place] [address] Eleazar Lilly, [address] [place] [address] documented as of this encounter Visit Diagnoses Not on filedocumented in this encounter Care Teams Molder Offbearer Relationship Specialty Start Date End Date Unallocated, Noms Provider, [place] [address] PCP - General Family Medicine 02/28/24 documented as of this encounter
--- OUTSIDE RECORDS SUMMARY | 2024-10-14 11:56 | XMS_ITS | Encounter Summary ---
Author Organization [facility] Address [address] [facility] [place] [address] Care Team Providers Care Rail Express Clerk Name Role Phone Unallocated, Noms Provider Primary Care [facility] Encounter Details Date Type Department Care Team (Late st Contact Info) Description 10/02/2024 Bamboo flowsheet [facility] BCP OB [address] [facility] [place] [phone] Cheryl Baugh PA [address] [facility] [address] [place], [facility] Social History Tobacco Use Types Packs/Day Years [...] AM EDT Routine [facility] BCP OB [address] [facility] [place] [address] Eleazar Lilly, DO [address] [facility] [address] [place], [place] [address] documented as of this encounter Visit Diagnoses Not on filedocumented in this encounter Care Teams Rail Express Clerk Relationship Specialty Start Date End Date Unallocated, Noms Provider, [address] [place] [address] PCP - General Family Medicine 02/28/24 documented as of this encounter
--- OUTSIDE RECORDS SUMMARY | 2024-10-14 11:56 | XMS_ITS | Encounter Summary ---
Author Organization [facility] Address [address] [facility] [place] [address] Care Team Providers Care Centrifuge Separator Operator Name Role Phone Unallocated, Noms Provider Primary Care [facility] Encounter Details Date Type Department Care Team (Late st Contact Info) Description 04/23/2024 Abstract [facility] OB [address] [facility] [phone] Eleazar Lilly DO [address], [facility]11 Social History Tobacco Use Types Packs/Day [...] Routine [facility] BCP OB [address] [place] [phone] Eleazar Lilly, DO [address] [place], [place] [phone] documented as of this encounter Visit Diagnoses Not on filedocumented in this encounter Care Teams Centrifuge Separator Operator Relationship Specialty Start Date End Date Unallocated, Noms Provider, [address] [place], [place] [phone] PCP - General Family Medicine 02/28/24 documented as of this encounter
--- OUTSIDE RECORDS SUMMARY | 2024-10-14 11:56 | XMS_ITS | Encounter Summary ---
Author Organization [facility] Address [address] [place] [address] Care Team Providers Care Suede Brusher Name Role Phone Unallocated, Noms Provider [facility] Encounter Details Date Type Department Care Team (Late st Contact Info) Description 10/02/2024 Clinisync Result Encounter [facility] External Department Unsolicited Amalia Lilly, DO [address] [place] [address] Social History Tobacco Use Types Packs/Day Years [...] Routine [facility] BCP OB [address] [place] [phone] Amalia Lilly DO [address] [place], [place] [phone] documented as of this encounter Procedures Procedure Name Priority Date/Time Associated Diagnosis Comments US OB BPP W NON-STRESS 10/02/2024 12:43 PM EDT documented in this encounter Results * US OB BPP W NON-STRESS (10/02/2024 12:43 PM EDT) Anatomical Region Laterality Modality Other 10/02/2024 12:4 3 PM EDT Narrative 10/02/2024 12:46 [place] [address] Ultrasound Report Signed Patient: GIANCARLO CELAYA MR#: [id number] : 1995 Acct:[id number] Age/Sex: 28 / F ADM Date: 10/02/24 Loc: US Attending Dr: Amalia Lilly D.O. Ordering Physician: Amalia Lilly D.O. Date of Service: 10/02/24 Procedure(s): US OB BPP w non-stress Accession Number(s): [id number] cc: Amalia Lilly D.O.; LUDY GRAFF [place] [address] Patient Name: GIANCARLO CELAYA MRN: [id number] date: 1995 Sex: F Assigned Patient Location: [facility] Current Patient Location: US Accession/Order Number: [id number] Exam Date: 10/02/2024 12:41 Report Date: 10/02/2024 [...] Anand M.D. 10/02/2024 12:43 PM Dictation Location: [place] [address] Electronically authenticated by: [id number] Y Date: 10/02/2024 12:43 Dictated By: Yaneli Anand M.D. Signed By: 10/02/24 1246 DD/ 1243 TD/TT: Welding Setter: Procedure Note Radiology, Radiologist, - 10/02/2024 [place] [address] Ultrasound Report Signed Patient: GIANCARLO CELAYA EMR#: [id number] : 1995Acct:[id number] Age/Sex: Date: 10/02/24 Loc: US Attending Dr: Amalia Lilly D.O. Ordering Physician: Amalia Lilly D.O. Date of Service: 10/02/24 Procedure(s): US OB BPP w non-stress Accession Number(s): [id number] cc: Amalia Lilly D.O.; LUDY GRAFF [place] [phone] Patient Name: GIANCARLO CELAYA MRN: [id number] date: 1995 Sex: F Assigned Patient Location: [facility] Current Patient Location: US Accession/Order Number: [id number] Exam Date: 10/02/2024 12:41 Report Date: 10/02/2024 [...] Anand M.D. 10/02/2024 12:43 PM Dictation Location: [place] [address] Electronically authenticated by: [id number] Y Date: 2:43 Dictated By: Yaneli Anand M.D. Signed By:10/02/24 1246 DD/ 1243 TD/TT: Welding Setter: us Amalia Vijaya DO [facility] Final Result documented in this encounter Visit Diagnoses Not on filedocumented in this encounter Care Teams Suede Brusher Relationship Specialty Start Date End Date Unallocated, Noms Provider, [address] [place] [address] PCP - General Family Medicine 02/28/24 documented as of this encounter
--- OUTSIDE RECORDS SUMMARY | 2024-10-14 11:56 | XMS_ITS | Clinical Summary ---
Author Organization [facility] Address [address] [place] [address] Care Team Providers Care Veterinary Medicine Scientist Name Role Phone Unavailable Primary Care Provider [...] Plan of Treatment Not on file Insurance [place] BCBS
--- OUTSIDE RECORDS SUMMARY | 2024-10-14 11:56 | XMS_ITS | Encounter Summary ---
Author Organization [facility] Address [address] [facility] [place] [address] Care Team Providers Care Private Equity Associate Name Role Phone Unallocated, Noms Provider Primary Care [facility] Encounter Details Date Type Department Care Team (Late st Contact Info) Description 06/08/2024 Orders Only [facility] BCP OB [address] [place] [phone] Nga Cormier [address] [place] [address] Social History Tobacco Use Types Packs/Day Years [...] Routine [facility] BCP OB [address] [place] [phone] Eleazar Lilly DO [address] [place], [place] [phone] documented as of this encounter Procedures Procedure Name Priority Date/Time Associated Diagnosis Comments PAP SMEAR Routine 05/28/2024 12:00 AM EST documented in this encounter Results * Pap Smear (05/28/2024 12:00 AM EST) Swab Cervical swab / Unknown hCeryl [facility] CYTOLOGY ORDERABLES Final Re sult EXTERNAL LAB documented in this encounter Visit Diagnoses Not on filedocumented in this encounter Care Teams Private Equity Associate Relationship Specialty Start Date End Date Unallocated, Noms MD [facility] [place] [address] PCP - General Family Medicine 02/28/24 documented as of this encounter
--- OUTSIDE RECORDS SUMMARY | 2024-10-14 11:56 | XMS_ITS | Encounter Summary ---
Author Organization [facility] Address [address] [facility] [place] [address] Care Team Providers Care Nurse Coordinator Name Role Phone LuizCorwin olivarez Primary Care Provider Unallocated, Noms Provider Primary Care [facility] Encounter Details Date Type Department Care Team (Late st Contact Info) Description 02/21/2024 Clinisync Result Encounter N[facility] External Department Unsolicited Amalia Lilly, DO [address] [place] [address] Social History Tobacco Use Types Packs/Day Years [...] Routine [facility] BCP OB [address] [place] [phone] Amalia Lilly DO [address] [place] [address] documented as of this encounter Procedures Procedure Name Priority Date/Time Associated Diagnosis Comments [facility] PREG QUANT HCG Routine 02/21/2024 10 :35 AM EDT US PELVIS W/ TRANSVAGINAL 02/21/2024 7:52 AM EDT documented in this encounter Results * [facility] PREG QUANT HCG (02/21/2024 10:35 AM EDT) HCG QUANTITATIVE <1 mIU/mL [facility] Comment: 5-50 0.2-1 WEEK 50-500 1-2 WEEKS 100-5,000 2-3 WEEKS 500-10,000 3-4 WEEKS 1,000-50,000 4-5 WEEKS 10,000-100,000 5-6 WEEKS 15,000-200,000 6-8 WEEKS 10,000-100,000 2-3 MONTHS 02/21/2024 10:3 5 AM EDT 02/21/2024 10:36 AM EDT Narrative [facility] - 02/21/2024 12:17 PM EDT us Amalia Lilly DO [facility] Final Result [facility] * US PELVIS W/ TRANSVAGINAL (02/21/2024 7:52 AM EDT) Anatomical Region Laterality Modality Other 02/21/2024 7:52 AM EDT Narrative 02/21/2024 7:55 [place] [address] Ultrasound Report Signed Patient: GIANCARLO CELAYA MR#: [id number] : 1995 Acct:[id number] Age/Sex: 28 / F ADM Date: 02/20/24 Loc: US Attending Dr: Amalia Lilly D.O. Ordering Physician: Amalia Lilly D.O. Date of Service: 02/20/24 Procedure(s): US pelvis w/ transvaginal Accession Number(s): [id number] cc: Amalia Lilly D.O.; LUDY GRAFF [place] [phone] Patient Name: GIANCARLO CELAYA MRN: [id number] date: 1995 Sex: F Assigned Patient Location: US Current Patient Location: Accession/Order Number: [id number] Exam Date: 02/20/2024 10:36 Report Date: 02/21/2024 07:52 At the request of: AMALIA LILLY Procedure: US pelvis w/ transvaginal EXAMINATION: US pelvis w/ transvaginal HISTORY: Pelvic pain in female R10.2 COMPARISON: No relevant comparison available. FINDINGS: Transabdominal and transvaginal images The uterus is normal in size, contour and echotexture measuring 7.7 x 3.9 x 4.4 cm The endometrium measures 9.1 mm, normal. Areas of anechoic echogenicity in the cervix, nabothian cysts. The right ovary measures 3.8 x 3.1 x 3.0 cm. Normal color and Doppler flow The left ovary measures 3.7 x 2.2 x 2.9 cm. Normal color and Doppler flow. Complex cystic structure measuring 2.4 x 1.4 x 1.6 cm with mild peripheral hypervascularity Small amount of free pelvic fluid likely physiologic in amount Findings relayed to Dr. Lilly at 7:50 AM US/US pelvis w/ transvaginal IMPRESSION: Complex cystic structure in the left ovary. A complex cyst is favored however in light of the slight hypervascularity, beta-hCG is recommended to exclude an ectopic Electronically authenticated by: JACK BAUTISTA Date: 02/21/2024 07:52 Dictated By: Jack Bautista M.D. Signed By: 02/21/24 0755 DD/ 0752 TD/TT: Water Resource Manager: Procedure Note Radiology, Radiologist, MD - 02/21/2024 [place] [address] Ultrasound Report Signed Patient: GIANCARLO CELAYA EMR#: [id number] : 1995Acct:[id number] Age/Sex: 28 / FADM Date: 02/20/24 Loc: US Attending Dr: Amalia Lilly D.O. Ordering Physician: Amalia Lilly D.O. Date of Service: 02/20/24 Procedure(s): US pelvis w/ transvaginal Accession Number(s): [id number] cc: Amalia Lilly D.O.; LUDY GRAFF [place] [address] Patient Name: GIANCARLO CELAYA MRN: [facility]:[id number] date: 1995 Sex: F Assigned Patient Location: US Current Patient Location: Accession/Order Number: [id number] Exam Date: 02/20/2024 10:36 Report Date: 02/21/2024 07:52 At the request of: AMALIA LILLY Procedure: US pelvis w/ transvaginal EXAMINATION: US pelvis w/ transvaginal HISTORY: Pelvic pain in female R10.2 COMPARISON: No relevant comparison available. FINDINGS: Transabdominal and transvaginal images The uterus is normal in size, contour and echotexture measuring 7.7 x 3.9x 4.4 cm The endometrium measures 9.1 mm, normal. Areas of anechoic echogenicity inthe cervix, nabothian cysts. The right ovary measures 3.8 x 3.1 x 3.0 cm. Normal color and Doppler flow The left ovary measures 3.7 x 2.2 x 2.9 cm. Normal color and Doppler flow. Complex cystic structure measuring 2.4 x 1.4 x 1.6 cm with mild peripheral hypervascularity Small amount of free pelvic fluid likely physiologic in amount Findings relayed to Dr. Lilly at 7:50 AM US/US pelvis w/ transvaginal IMPRESSION: Complex cystic structure in the left ovary. A complex cyst is favoredhowever in light of the slight hypervascularity, beta-hCG is recommended toexclude an ectopic Electronically authenticated by: JACK BAUTISTA Date: 02/21/2024 07:52 Dictated By: Jack Bautista M.D. Signed By:02/21/24 0755 DD/ 0752 TD/TT: Water Resource Manager: us Amalia Lilly DO [facility] Final Result documented in this encounter Visit Diagnoses Not on filedocumented in this encounter Care Teams Nurse Coordinator Relationship Specialty Start Date End Date Corwin Dee DO [address] [place], [place] [phone] PCP - General Family Medicine 09/14/22 02/27/24 Unallocated, Noms Provider, [address] [place] [address] PCP - General Family Medicine 02/28/24 documented as of this encounter
--- OUTSIDE RECORDS SUMMARY | 2024-10-14 11:56 | XMS_ITS | Clinical Summary ---
Author Organization [facility] Address [address] [facility] [place] [address] Care Team Providers Care Enrollment Processor Name Role Phone Unallocated, Noms Provider Primary [...] Encounters Date Type Department Care Team Description 10/12/2024 Telephone [facility] [address] [place] [address] Shalonda Anderson MA 10/10/2024 Telephone [facility] OB [address] [place] [address] [place] [address] Amalia Lilly, 10/09/2024 Clinisync Result Encounter NOMS External Department Unsolicited Amalia Lilly, DO 10/02/2024 9:10 AM EDT Routine [facility] [address] [place] [address] Cheryl Baugh PA Third trimester ; 34 weeks gestation of ; BV (bacterial vaginosis) 10/02/2024 Clinisync Result Encounter NOMS External Department Unsolicited Amalia Lilly, DO 10/02/2024 Bamboo flowsheet [facility] [address] [place] [address] Cheryl Baugh PA 09/27/2024 Refill [facility] [address] [place] [address] Nimco Mojica LPN Nausea and vomiting in 09/25/2024 Clinisync Result Encounter NOMS External Department Unsolicited Amalia Lilly, DO 09/24/2024 Clinisync Result Encounter NOMS External Department Unsolicited Gaye Vázquez NP 09/24/2024 Results Follow-Up NOMS [address] [place] [address] Nimco Mojica LPN 09/24/2024 Telephone [facility] [address] [place] [address] Nimco Mojica LPN 09/21/2024 Telephone [facility] OB [address] [facility] [address] Monica Ayala, GRETCHEN 09/21/2024 Telephone [facility] OB [address] [facility] [place] [address] Shalonda [place], [place] 09/19/2024 Clinisync Result Encounter NOMS External Department Unsolicited Gaye Vázquez, CHERI 09/19/2024 Telephone [facility] OB [address] [facility] [place] [address] Shalonda [place], [place] 09/18/2024 Clinisync Result Encounter NOMS External Department Unsolicited Amalia Lilly, 09/13/2024 10:30 AM EDT Routine [facility] OB [address] [facility] [place] [address] Amalia Lilly, Third trimester ; 31 weeks gestation of ; size inconsistent with dates 09/13/2024 Bamboo flowsheet [facility] OB [address] [facility] [place] [address] Amalia Lilly, 09/03/2024 Telephone [facility] OB [address] [facility] [place] [address] Nga Cormier MA 08/20/2024 9:50 AM EDT Routine [facility] OB [address] [facility] [place] [address] Amalia Lilly, DO Third trimester 08/20/2024 Clinisync Result Encounter NOMS External Department Unsolicited Gaye Vázquez, CHERI 08/20/2024 Bamboo flowsheet [facility] OB [address] [facility] [place] [address] Amalia Lilly, DO 07/23/2024 10:20 AM EDT Routine [facility] B[facility] OB [address] [place] [address] Cheryl Baugh PA 24 weeks gestation of ; Second trimester ; Diabetes mellitus screening 07/23/2024 9:00 AM EDT Ancillary Procedure [facility] OB [address] [place] [address] [place] [phone] Low-lying placenta from Last 3 Months Family History Medical [...] 10:10 AM EDT Routine [facility] OB [address] [place] [address] [place] [phone] Amalia Lilly, DO [address] [place] [address] [place] [address] Health Maintenance Due Date Last Done Comments Influenza Vaccine (Season Ended) 2025 Procedures Procedure Name Priority Date/Time Associated Diagnosis Comments US OB BPP W NON-STRESS 10/09/2024 4:48 PM EDT US OB BPP W NON-STRESS 10/02/2024 12:43 PM EDT US OB BPP W NON-STRESS 09/25/2024 4:35 PM EDT CCF BILE ACIDS FRACT BLD Routine 09/24/2024 4:47 PM EDT ALL HEPATITIS C AB Routine 09/24/2024 4: 47 PM EDT ALL THYROID STIM HORMONE Routine 09/24/2024 4:47 PM EDT ALL CBC WITH AUTO DIFF Routine 09/24/2024 4:47 PM EDT [facility]CF CMP (CMP) (FOR REMOTE CRITICAL ACCESS HOSPITAL USE) Routine 09/19/2024 2:31 PM EDT [...] Routine 07/23/2024 9:37 AM EDT Low-lying placenta from Last 3 Months Results * US OB BPP W NON-STRESS (10/09/2024 4:48 PM EDT) Only the most recent of3 resultswithin the time period is included. Anatomical Region Laterality Modality Other 10/09/2024 4:48 PM EDT Narrative 10/09/2024 4:50 PM EDT [address] [address] Ultrasound Report Signed Patient: GIANCARLO CELAYA MR#: [id number] : 1995 Acct:[id number] Age/Sex: 28 / F ADM Date: 10/09/24 Loc: [facility] 250-[address]: Amalia Lilly D.O. Ordering Physician: Amalia Lilly D.O. Date of Service: 10/09/24 Procedure(s): US OB BPP w non-stress Accession Number(s): [id number] cc: Amalia Lilly D.O.; LUDY GRA[place] [address] Patient Name: GIANCARLO CELAYA MRN: [facility]:[id number] date: 1995 Sex: F Assigned Patient Location: [facility] Current Patient Location: [facility] Accession/Order Number: [id number] Exam Date: 10/09/2024 16:46 Report Date: 10/09/2024 16:48 At the request of: AMALIA LILLY DO Procedure: US OB BPP w non-stress Ultrasound biophysical profile HISTORY: True knot the umbilical cord Adequate breathing movement, gross body movement, tone and amniotic fluid volume for total score of 8 out of 8. The amniotic fluid index is 12.3cm within normal limits. The heart rate 141 bpm. Possible nuchal cord. Possible umbilical knot. US/US OB BPP w non-stress IMPRESSION: Adequate ultrasound biophysical profile Impression dictated by: Ty Katz M.D. 10/09/2024 4:48 PM Dictation Location[facility] [employer] Electronically authenticated by: [id number] Y Date: 10/09/2024 16:48 Dictated By: Ty Katz D.O. Signed By: 10/09/241649 DD/ 47 TD/TT: Die Cutter Apprentice: Procedure Note Radiology, Radiologist, - 10/09/2024 [place] [address] Ultrasound Report Signed Patient: GIANCARLO CELAYA EMR#: [id number] : 1995Acct:[id number] Age/Sex: 28 / FADM Date: 10/09/24 Loc: [facility] 250-[address]: Amalia Lilly D.O. Ordering Physician: Amalia Lilly D.O. Date of Service: 10/09/24 Procedure(s): US OB BPP w non-stress Accession Number(s): [id number] cc: Amalia Lilly D.O.; LUDY GRA[place] [address] Patient Name: GIANCARLO CELAYA MRN: [facility]:[id number] date: 1995 Sex: F Assigned Patient Location: [facility] Current Patient Location: [facility] Accession/Order Number: [id number] Exam Date: 10/09/2024 16:46 Report Date: 10/09/2024 16:48 At the request of: AMALIA LILLY DO Procedure: US OB BPP w non-stress Ultrasound biophysical profile HISTORY: True knot the umbilical cord Adequate breathing movement, gross body movement, tone and amniotic fluid volume for total score of 8 out of 8. The amniotic fluidindex is 12.3cm within normal limits. The heart rate 141 bpm. Possible nuchal cord. Possible umbilical knot. US/US OB BPP w non-stress IMPRESSION: Adequate ultrasound biophysical profile Impression dictated by: Ty Katz M.D. 10/09/2024 4:48 PM Dictation Location: [place] [address] Electronically authenticated by: [id number] Y Date: 6:48 Dictated By: Ty Katz D.O. Signed By:10/09/241649 DD/ 47 TD/TT: Die Cutter Apprentice: Amalia Lilly DO [facility] Final Result * [facility] BILE ACIDS FRACT BLD (09/24/2024 4:47 PM EDT) BILE ACIDS 6.8 0.0 - 10.0 umol/L TB Comment: Performed at: [facility] [address] [id number] Warehouse Order Puller: Mello Godoy MD, Phone: [phone] 09/24/2024 4:47 PM EDT 09/24/2024 4:47 PM EDT Narrative [facility] - 09/27/2024 12:16 AM EDT us Gaye Vázquez FIELD OPERATIONS SUPERVISOR [facility] Final Result Performing Organization Address [facility]/ZIP Co de Phone Number [facility] * ALL THYROID STIM HORMONE (09/24/2024 4:47 PM EDT) Pathologist [facility] THYROID STIMULATING HORMONE 0.964 0.358 - 3.740 uIU/mL TB 09/24/2024 4:47 PM EDT 09/24/2024 4:47 PM EDT Narrative [facility] - 09/24/2024 5:57 PM EDT us Gaye Vázquez FIELD OPERATIONS SUPERVISOR [facility] Final Result Performing Organization Address [facility] Phone Number [facility] * ALL HEPATITIS C AB (09/24/2024 4:47 PM EDT) Pathologist [facility] HCV ANTIBODY Non Reactive Non Reactive [facility] Comment: HCV antibody alone does not differentiate between previously resolved infection and active infection. Equivocal and Reactive HCV antibody results should be followed up with an HCV RNA test to support the diagnosis of active HCV infection. Performed at: [facility] [address] [id number] Warehouse Order Puller: Sheldon Polo PhD, Phone: [phone] 09/24/2024 4:47 PM EDT 09/24/2024 4:47 PM EDT Narrative CLIN[facility] - 09/26/2024 5:08 AM EDT us Gaye Vázquez FIELD OPERATIONS SUPERVISOR [facility] Final Result Performing Organization Address [facility] Co de Phone Number [facility] * (ABNORMAL) ALL CBC WITH AUTO DIFF (09/24/2024 4:47 PM EDT) Only the most recent of2 resultswithin the time period is included. Pathologist [facility] WBC 9.8 4.0 - 11.0 10 3/uL [...] Gaye Vázquez NP [facility] Final Result [facility] * (ABNORMAL) [facility] CMP (CMP) (FOR REMOTE CRITICAL ACCESS [facility]OSPITAL USE) (09/19/2024 2:31 PM EDT) SODIUM [...] Narrative [facility] - 09/19/2024 3:00 PM EDT us Gaye Vázquez NP [facility] Final Result [facility] * US OB GROWTH (09/18/2024 4:30 PM EDT) Anatomical Region Laterality Modality Other 09/18/2024 4:30 PM EDT Narrative 09/18/2024 4:32 [place] [address] Ultrasound Report Signed Patient: GIANCARLO CELAYA MR#: [id number] : 1995 Acct:[id number] Age/Sex: 28 / F ADM Date: 09/18/24 Loc: US Attending Dr: Amalia Lilly D.O. Ordering Physician: Amalia Lilly D.O. Date of Service: 09/18/24 Procedure(s): US OB growth Accession Number(s): [id number] cc: Amalia Lilly D.O.; LUDY GRA[place] [address] Patient Name: GIANCARLO CELAYA MRN: [facility]:[id number] date: 1995 Sex: F Assigned Patient Location: Current Patient Location: US Accession/Order Number: [id number] Exam Date: 09/18/2024 16:23 Report Date: 09/18/2024 [...] Smith M.D. 09/18/2024 4:30 PM Dictation Location: [place] [address] Electronically authenticated by: [id number] Y Date: 09/18/2024 16:30 Dictated By: Wally Smith M.D. Signed By: 09/18/24 1632 DD/ 1630 TD/TT: Die Cutter Apprentice: Procedure Note Radiology, Radiologist, MD - 09/18/2024 [place] [address] Ultrasound Report Signed Patient: GIANCARLO CELAYA EMR#: [id number] : 1995Acct:[id number] Age/Sex: 28 / FADM Date: 09/18/24 Loc: US Attending Dr: Amalia Lilly D.O. Ordering Physician: Amalia Lilly D.O. Date of Service: 09/18/24 Procedure(s): US OB growth Accession Number(s): [id number] cc: Amalia Lilly D.O.; LUDY GRAFF [place] [phone] Patient Name: GIANCARLO CELAYA MRN: [id number]:[id number] date: 1995 Sex: F Assigned Patient Location: Current Patient Location: US Accession/Order Number: [id number] Exam Date: 09/18/2024 16:23 Report Date: 09/18/2024 [...] Smith M.D. 09/18/2024 4:30 PM Dictation Location: [place] [address] Electronically authenticated by: [id number] Y Date: 6:30 Dictated By: Wally Smith M.D. Signed By:09/18/24 1632 DD/ 163 TD/TT: Die Cutter Apprentice: Amalia Vijaya DO [facility]AG[facility] Final Result [...] Urine 09/13/2024 11:0 1 AM EDT Amalia Vijaya DO POINT OF CARE TEST ENTER/EDIT OR DERABLES Final Result * MLR HEMOGLOBIN A1C (08/20/2024 10:54 AM EDT) GLYCOHEMOGLOBIN A1C 4.7 4.5 - 6.2 % [facility] Comment: ADA RECOMMENDED LIMIT 4.0 - 6.0 ADA THERAPEUTIC TARGET < 7.0 ACTION SUGGESTED > 7.0 ESTIMATED AVERAGE GLUCOSE 88 mg/dL TB 08/20/2024 10:5 4 AM EDT 08/20/2024 10:54 AM EDT Narrative [facility] - 08/20/2024 11:40 AM EDT us Gaye Vázquez NP [facility] Final Result [facility] * US OB limited 1+ fetuses [...] VASQUEZ II, MD, PHDat 24-Jul-2024 12:32:57 AM [facility] us Amalia Lilly DO IMG OB US PROCEDURES Final Resul t from Last 3 Months Insurance [place]ID [place] Care Teams Enrollment Processor Relationship Specialty Start Date End Date Unallocated, Noms MD Aidan [address] [place] [address] PCP - General Family Medicine 02/28/24
--- OUTSIDE RECORDS SUMMARY | 2024-10-14 11:56 | XMS_ITS | Encounter Summary ---
Author Organization [facility] Address [address] [facility] [place] [address] Care Team Providers Care Poured Concrete Wall Technician Name Role Phone Unallocated, Noms Provider Primary Care [facility] Encounter Details Date Type Department Care Team (Late st Contact Info) Description 03/23/2024 Abstract [facility] OB [address] [facility] [place] [address] Eleazar Lilly DO [address] [place], [facility] Social History Tobacco [...] [facility] BCP OB [address] [place] [address] Eleazar Lilly, DO [address] [place], [place] [address] documented as of this encounter Visit Diagnoses Not on filedocumented in this encounter Care Teams Poured Concrete Wall Technician Relationship Specialty Start Date End Date Unallocated, Noms Provider, [address] [place], [place] [address] PCP - General Family Medicine 02/28/24 documented as of this encounter
--- OUTSIDE RECORDS SUMMARY | 2024-10-14 11:56 | XMS_ITS | Encounter Summary ---
Author Organization [facility] Address [address] [facility] [place] [address] Care Team Providers Care Memorandum Statement Clerk Name Role Phone Unallocated, Noms Provider Primary Care [facility] Encounter Details Date Type Department Care Team (Late st Contact Info) Description 03/17/2024 Abstract [facility] OB [address] [facility] [phone] Eleazar Lilly DO [address] [place], [facility]11 Social History Tobacco Use Types [...] Routine [facility] BCP OB [address] [place] [address] Eleazar Lilly, DO [address] [place], [place] [address] documented as of this encounter Visit Diagnoses Not on filedocumented in this encounter Care Teams Memorandum Statement Clerk Relationship Specialty Start Date End Date Unallocated, Noms Provider, [address] [place], [place] [address] PCP - General Family Medicine 02/28/24 documented as of this encounter
--- OUTSIDE RECORDS SUMMARY | 2024-10-14 11:56 | XMS_ITS | Encounter Summary ---
Author Organization [facility] Address [address] [facility] [place] [address] Care Team Providers Care Therapeutic Recreation Assistant Name Role Phone Unallocated, Noms Provider Primary Care [facility] Encounter Details Date Type Department Care Team (Late st Contact Info) Description 05/30/2024 Abstract [facility] OB [address] [facility] [place] [address] Eleazar Lilly DO [address], [facility]11 Social History Tobacco Use Types Packs/Day Years [...] Routine [facility] BCP OB [address] [place] [address] Eleazar Lilly, DO [address] [place] [address] documented as of this encounter Visit Diagnoses Not on filedocumented in this encounter Care Teams Therapeutic Recreation Assistant Relationship Specialty Start Date End Date Unallocated, Noms Provider, [address] [place] [place], [place] [address] PCP - General Family Medicine 02/28/24 documented as of this encounter
--- OUTSIDE RECORDS SUMMARY | 2024-10-14 11:56 | XMS_ITS | Patient Health Record ---
Author Organization [facility] Address [address] [place] [address] Care Team Providers Care Hospital Educator Name Role Phone Katie Monroe Primary Care Provider Ines Sauceda Unavailable Karthik Castro Unavailable [phone] Swapna Chris Unavailable [phone] Reason For Referral No Information Encounters Encounter Location Date Provider Diagnosis [facility] [address] [place] [address] 01/04/2024 Katie Monroe [facility] [address] [facility] [place] [address] 12/30/2023 Katie Monroe Necrosis of pulp 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
--- OUTSIDE RECORDS SUMMARY | 2024-10-14 11:56 | XMS_ITS | Encounter Summary ---
Author Organization [facility] Address [address] [facility] [place] [address] Care Team Providers Care Paper And Pulp Mill Operator Name Role Phone LuizCorwin olivarez Primary Care Provider Unallocated, Noms Provider Primary Care [facility] Encounter Details Date Type Department Care Team (Late st Contact Info) Description 02/21/2024 Orders Only [facility] B[facility] OB [address] [place] [address] Eleazar Lilly DO [facility] [address] [place], [place] [phone] Left ovarian cyst Social History Tobacco Use [...] Routine [facility] BCP OB [address] [place] [address] Eleazar Lilly, DO [address] [place] [address] Scheduled Orders Name Type Priority Associated Diagnoses Orde r Schedule hCG, quantitative Lab Routine Left ovarian cyst Expected: 02/21/2024 (Approximate), Expires: 02/20/2025 documented as of this encounter Visit Diagnoses Diagnosis Left ovarian cyst Other and unspecified ovarian cyst documented in this encounter Care Teams Paper And Pulp Mill Operator Relationship Specialty Start Date End Date Corwin Dee DO [address] [place] [address] PCP - General Family Medicine 09/14/22 02/27/24 Unallocated, Noms Provider, [place] [address] PCP - General Family Medicine 02/28/24 documented as of this encounter
--- OUTSIDE RECORDS SUMMARY | 2024-10-14 11:56 | XMS_ITS | Encounter Summary ---
Author Organization [facility] Address [address] [facility] [place] [address] Care Team Providers Care Precision Grinder Name Role Phone Unallocated, Noms Provider Primary Care [facility] Encounter Details Date Type Department Care Team (Late st Contact Info) Description 07/09/[address] [facility] OB [address] [facility] [place] [phone] Eleazar Lilly DO [address], [facility]11 Social History Tobacco Use Types Packs/Day [...] [facility] BCP OB [address] [place] [address] Eleazar Lilly, DO [address] [place] [address] documented as of this encounter Visit Diagnoses Not on filedocumented in this encounter Care Teams Precision Grinder Relationship Specialty Start Date End Date Unallocated, Noms Provider, [address] [place], [place] [address] PCP - General Family Medicine 02/28/24 documented as of this encounter
--- OUTSIDE RECORDS SUMMARY | 2024-10-14 11:56 | XMS_ITS | Clinical Summary ---
Author Organization [facility] Address [id number] [address] [place] [address] Care Team Providers Care Supply Chain Coordinator Name Role Phone Hima Silver MD Primary Care Provider [phone] Social History Tobacco Use Types Packs/Day Years [...] Medical Devices Not on file Care Teams Supply Chain Coordinator Relationship Specialty Start Date End Date Hima Silvre MD [address] [place] [address] PCP - General Internal Medicine 09/14/18
--- OUTSIDE RECORDS SUMMARY | 2024-10-14 11:56 | XMS_ITS | Encounter Summary ---
Author Organization [facility] Address [address] [facility] [place] [address] Care Team Providers Care Saloon Keeper Name Role Phone Unallocated, Noms Provider Primary Care [facility] Encounter Details Date Type Department Care Team (Late st Contact Info) Description 03/23/2024 Abstract [facility] OB [address] [facility] [place] [phone] Eleazar Lilly DO [address], [facility]11 Social History Tobacco Use Types Packs/Day [...] Routine [facility] BCP OB [address] [place] [address] Eleazar Lilly, DO [address] [place], [place] [address] documented as of this encounter Visit Diagnoses Not on filedocumented in this encounter Care Teams Saloon Keeper Relationship Specialty Start Date End Date Unallocated, Noms Provider, [address] [place], [place] [address] PCP - General Family Medicine 02/28/24 documented as of this encounter
--- OUTSIDE RECORDS SUMMARY | 2024-10-14 11:57 | XMS_ITS | CCD ---
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, Ana Serra Attending Carley vailable Schlumbohm PA-C, Susana Dickerson Primary Care U navailable VIJAYA, ELEAZAR Attending Unavailable VIJAYA, ELEAZAR Referring Unavailable CHERYL BAUGH Attending Unavailable VIJAYA, ELEAZAR Attending Unavailable VIJAYA, ELEAZAR Attending Unavailable ANACHERYL Attending Unavailable VIJAYA, ELEAZAR Attending Unavailable VIJAYA, ELEAZAR Attending Unavailable VIJAYA, ELEAZAR Attending Unavailable ANA, CHERYL Attending Unavailable Medications Current Medications Medication Drug [...] Start: 05-21-2019 take 1 capsule by mo [facility] three times daily as needed [...] daily Start: 08-14-2018 take 1 tablet by [facility] once daily citalopram 10 mg oral tablet [...] US OB BPP W NON-STRESS on 10-02-2024 [place] [address] Ultrasound Report Signed Patient: GIANCARLO CELAYA MR#: [id number] : 1995 Acct:[id number] Age/Sex: 28 / F ADM Date: 10/02/24 Loc: US Attending Dr: Eleazar Lilly D.O. Ordering Physician: Eleazar Lilly D.O. Date of Service: 10/02/24 Procedure(s): US OB BPP w non-stress Accession Number(s): [id number] cc: Eleazar Lilly D.O.; EVELYN VU [place] [address] Patient Name: GIANCARLO CELAYA MRN: [id number] date: 1995 Sex: F Assigned Patient Location: [facility] Current Patient Location: US Accession/Order Number: [id number] Exam Date: 10/02/2024 12:41 Report Date: 10/02/2024 [...] 10/02/2024 12:43 PM Dictation Location: [place] [address] Electronically authenticated by: [id number] Y Date: 10/02/2024 12:43 Dictated By: Yaneli Anand M.D. Signed By: 10/02/24 1246 DD/ 1243 TD/TT: Inspector Soldering: [facility] Radiology, Radiologist, MD - 10/02/2024 [place] [address] Ultrasound Report Signed Patient: GIANCARLO CELAYA MR#: [id number] : 1995 Acct:[id number] Age/Sex: 28 / F ADM Date: 10/02/24 Loc: US Attending Dr: Eleazar Lilly D.O. Ordering Physician: Eleazar Lilly D.O. Date of Service: 10/02/24 Procedure(s): US OB BPP w non-stress Accession Number(s): [id number] cc: Eleazar Lilly D.O.; EVELYN VU [address] [address] Patient Name: GIANCARLO CELAYA MRN: [facility]:[id number] date: 1995 Sex: F Assigned Patient Location: [facility] Current Patient Location: US Accession/Order Number: [id number] Exam Date: 10/02/2024 12:41 Report Date: 10/02/2024 [...] 10/02/2024 12:43 PM Dictation Location: [place] [address] Electronically authenticated by: [id number] Y Date: 10/02/2024 12:43 Dictated By: Yaneli Anand M.D. Signed By: 10/02/24 1246 DD/ 1243 TD/TT: Inspector Soldering: [facility] Radiology Study observation (narrative) [facility] US OB BPP W NON-STRESS Ordered By: Radiologist Radiology on 10-02-2024 [facility] Work Phone: US OB BPP W NON-STRESS on 09-25-2024 [place] [address] Ultrasound Report Signed Patient: GIANCARLO CELAYA MR#: [id number] : 1995 Acct:[id number] Age/Sex: 28 / F ADM Date: 09/25/24 Loc: US Attending Dr: Eleazar Lilly D.O. Ordering Physician: Eleazar Lilly D.O. Date of Service: 09/25/24 Procedure(s): US OB BPP w non-stress Accession Number(s): [id number] cc: Eleazar Lilly D.O.; EVELYN VU [place] [phone] Patient Name: GIANCARLO CELAYA MRN: [id number] date: 1995 Sex: F Assigned Patient Location: US Current Patient Location: US Accession/Order Number: [id number] Exam Date: 09/25/2024 16:34 Report Date: 09/25/2024 [...] Katz M.D. 09/25/2024 4:35 PM [facility] Electronically authenticated by: [id number] Y Date: 09/25/2024 16:35 Dictated By: Ty Katz D.O. Signed By: 09/25/241636 DD/ 34 TD/TT: Inspector Soldering: [facility] Radiology, Radiologist, - 09/25/2024 [place] [address] Ultrasound Report Signed Patient: GIANCARLO CELAYA MR#: [id number] : 1995 Acct:[id number] Age/Sex: 28 / F ADM Date: 09/25/24 Loc: US Attending Dr: Eleazar Lilly D.O. Ordering Physician: Eleazar Lilly D.O. Date of Service: 09/25/24 Procedure(s): US OB BPP w non-stress Accession Number(s): [id number] cc: Eleazar Lilly D.O.; EVELYN VU [place] [phone] Patient Name: GIANCARLO CELAYA MRN: [facility]:[id number] date: 1995 Sex: F Assigned Patient Location: US Current Patient Location: US Accession/Order Number: [id number] Exam Date: 09/25/2024 16:34 Report Date: 09/25/2024 16:35 At the request of: ELEAZAR VIJAYA DO Procedure: US OB BPP w non-stress [...] Katz M.D. 09/25/2024 4:35 PM Dictation Location: [employer] Electronically authenticated by: [id number] Y Date: 09/25/2024 16:35 Dictated By: Ty Katz D.O. Signed By: 09/25/241636 DD/ 34 TD/TT: Inspector Soldering: [facility] Radiology Study observation (narrative) [facility] US OB BPP W NON-STRESS Ordered By: Radiologist Radiology on 09-25-2024 [facility] Work Phone: ALL CBC WITH AUTO DIFFon BASOPHILS ABSOLUTE AUTO 0 [facility] Basophils/100 WBC (Bld) 0.2 % 0.2 - 2.0 % [facility] Eosinophils/100 WBC (Bld) 0.9 % 0.9 - 7.0 % [facility] Erythrocyte distribution width (RBC) [Ratio] 12.9 % 11.0 - 15.0 % [facility] Hematocrit (Bld) [Volume fraction] 32.7 % Low 36.0 - 48.0 % [facility] Hemoglobin (Bld) [Mass/Vol] 11.6 g/dL Low 12.0 - 16.0 g/dL [facility] IMMATURE GRANULOCYTES ABS AUTO 0.07 High [facility] Immature granulocytes/100 WBC (Bld) 0.7 % High 0.0 - 0.5 % [facility] Interpretation and review of laboratory results Abnormal [facility] LYMPHOCYTES ABSOLUTE AUTO 1.8 [facility] Lymphocytes/100 WBC (Bld) 18 % Low 20.5 - 60.0 % [facility] MCH (RBC) [Entitic mass] 31.2 pg 26.7 - 34.0 pg [facility] MCHC (RBC) [Mass/Vol] 35.5 g/dL High 29.9 - 35.2 g/dL [facility] MCV (RBC) [Entitic vol] 87.9 fL 81.0 - 99.0 fL [facility] MONOCYTES ABSOLUTE AUTO 0.6 [facility] Monocytes/100 WBC (Bld) 6.4 % 1.7 - 12.0 % [facility] NEUTROPHILS ABSOLUTE AUTO 7.2 High [facility] Neutrophils/100 WBC (Bld) 73.8 % 43.0 - 75.0 % [facility] Platelet mean volume (Bld) [Entitic vol] 10.3 fL 9.5 - 13.5 fL [facility] TBH EO # 0.1 [facility] TB PLT 145 Low [facility] TB RBC 3.72 Low [facility] WBC 9.8 [facility] CCF CMP (CMP) (FOR REMOTE FH C USE)on 09-19-2024 Albumin [Mass/Vol] 2.5 g/dL Low 3.4 - 5.0 g/dL [facility] ALBUMIN GLOBULIN RATIO 0.6 [facility] ALP [Catalytic activity/Vol] 123 U/L High 46 - 116 U/L [facility] ALT [Catalytic activity/Vol] 17 U/L 14 - 59 U/L [facility] Anion gap [Moles/Vol] 12.6 mmol/L [facility] AST [Catalytic activity/Vol] 19 U/L 15 - 37 U/L [facility] Bilirubin [Mass/Vol] 0.4 mg/dL 0.2 - 1 .0 mg/dL [facility] Calcium [Mass/Vol] 8.9 mg/dL 8.5 - 10. 1 mg/dL [facility] Chloride [Moles/Vol] 104 mmol/L 98 - 10 7 mmol/L [facility] CO2 [Moles/Vol] 25.1 mmol/L 21.0 - 32.0 mmol/L [facility] Creatinine [Mass/Vol] 0.6 mg/dL 0.55 - 1.02 mg/dL [facility] GFR/1.73 sq M.predicted CKD-EPI (S/P/Bld) [Vol rate/Area] >60 >=60 mL/min/1.73 m 2 [facility] Globulin (S) [Mass/Vol] 3.9 g/dL [facility] Glucose [Mass/Vol] 101 mg/dL 74 - 106 mg/dL [facility] Interpretation and review of laboratory results Abnormal [facility] Potassium [Moles/Vol] 3.7 mmol/L 3.5 - 5.1 mmol/L [facility] Protein [Mass/Vol] 6.4 g/dL 6.4 - 8.2 g/dL [facility] Sodium [Moles/Vol] 138 mmol/L 136 - 145 mmol/L [facility] TBH EGFR-NON AF ICELANDIC >60 >=60 mL/min/1.73 m 2 [facility] Urea nitrogen [Mass/Vol] 7 mg/dL 7.0 - 18.0 mg/dL [facility] Urea nitrogen/Creatinine [Mass ratio] 11.7 mg/mg [facility] OB GROWTHon 09-18-2024 [place] [address] Ultrasound Report Signed Patient: GIANCARLO CELAYA MR#: [id number] : 1995 Acct:[id number] Age/Sex: 28 / F ADM Date: 09/18/24 Loc: US Attending Dr: Eleazar Lilly D.O. Ordering Physician: Eleazar Lilly D.O. Date of Service: 09/18/24 Procedure(s): US OB growth Accession Number(s): [id number] cc: Eleazar Lilly D.O.; EVELYN VU [place] [phone] Patient Name: GIANCARLO CELAYA MRN: [facility]:[id number] date: 1995 Sex: F Assigned Patient Location: Current Patient Location: US Accession/Order Number: [id number] Exam Date: 09/18/2024 16:23 Report Date: 09/18/2024 [...] Smith M.D. 09/18/2024 4:30 PM Dictation Location: [place] [address] Electronically authenticated by: [id number] Y Date: 09/18/2024 16:30 Dictated By: Wally Smith M.D. Signed By: 09/18/24 163 DD/ 163 TD/TT: Inspector Soldering: [facility] Radiology, Radiologist, MD - 09/18/2024 [place] [address] Ultrasound Report Signed Patient: GIANCARLO CELAYA MR#: [id number] : 1995 Acct:[id number] Age/Sex: 28 / F ADM Date: 09/18/24 Loc: Attending Dr: Eleazar Lilly D.O. Ordering Physician: Eleazar Lilly D.O. Date of Service: 09/18/24 Procedure(s): US OB growth Accession Number(s): [id number] cc: Eleazar Lilly D.O.; EVELYN VU [address] [address] Patient Name: GIANCARLO CELAYA MRN: [facility]:[id number] date: 1995 Sex: F Assigned Patient Location: Current Patient Location: US Accession/Order Number: [id number] Exam Date: 09/18/2024 16:23 Report Date: 09/18/2024 [...] Smith M.D. 09/18/2024 4:30 PM Dictation Location: [place] [address] Electronically authenticated by: [id number] Y Date: 09/18/2024 16:30 Dictated By: Wally Smith M.D. Signed By: 09/18/24 1632 DD/ 1630 TD/TT: Inspector Soldering: [facility] Radiology Study observation (narrative) [facility] US OB GROWTHOrdered By: Tico ologist Radiology on 09-18-2024 [facility] Work Phone: Urinalysis macro (dipstick) panel (U)on 09-13-2024 Bilirubin, UA Negative Negative - 4(70) +++ mg/dL [facility] Blood, UA Negative Negative - 50 Fuad/mcL [facility] Clarity, UA Clear [facility] Color, UA Yellow [facility] Glucose, UA Negative Negative - 2000(110) ++++ mg/dL [facility] Interpretation and review of laboratory results Abnormal [facility] Ketones, UA Positive Negative - 160(16) ++++ mg/dL [facility] Comment on above: 15 Leukocytes, UA Negative Negative - 500+++ Sandie/mcL [facility] Nitrite, UA Negative Negative - Positive [facility] pH, UA 6 5 - 9 [facility] Protein, UA Positive Negative - 1999(20) ++++ mg/dL [facility] Comment on above: 30 Spec Grav, UA 1.025 1 - 1.03 [facility] Urobilinogen, UA 1.0 0.2 - 12 mg/dL Count includes the [facility] ALL CBC WITH AUTO DIFFon BASOPHILS ABSOLUTE AUTO 0 [facility] Basophils/100 WBC (Bld) 0.4 % 0.2 - 2.0 % [facility] Eosinophils/100 WBC (Bld) 0.4 % Low 0.9 - 7.0 % [facility] Erythrocyte distribution width (RBC) [Ratio] 12.4 % 11.0 - 15.0 % [facility] Hematocrit (Bld) [Volume fraction] 34.2 % Low 36.0 - 48.0 % [facility] Hemoglobin (Bld) [Mass/Vol] 11.9 g/dL Low 12.0 - 16.0 g/dL [facility] IMMATURE GRANULOCYTES ABS AUTO 0.17 High [facility] Immature granulocytes/100 WBC (Bld) 1.5 % High 0.0 - 0.5 % [facility] Interpretation and review of laboratory results Abnormal [facility] LYMPHOCYTES ABSOLUTE AUTO 2.1 [facility] Lymphocytes/100 WBC (Bld) 18.7 % Low 20.5 - 60.0 % [facility] MCH (RBC) [Entitic mass] 31.2 pg 26.7 - 34.0 pg [facility] MCHC (RBC) [Mass/Vol] 34.8 g/dL 29.9 - 35.2 g/dL [facility] MCV (RBC) [Entitic vol] 89.5 fL 81.0 - 99.0 fL [facility] MONOCYTES ABSOLUTE AUTO 0.6 [facility] Monocytes/100 WBC (Bld) 4.8 % 1.7 - 12.0 % [facility] NEUTROPHILS ABSOLUTE AUTO 8.4 High [facility] Neutrophils/100 WBC (Bld) 74.2 % 43.0 - 75.0 % [facility] Platelet mean volume (Bld) [Entitic vol] 9.9 fL 9.5 - 13.5 fL [facility] TBH EO # 0.1 [facility] PLT 148 Low [facility] RBC 3.82 Low [facility] TBH WBC 11.4 High [facility] Urinalysis macro (dipstick) panel (U)on 08-20-2024 Bilirubin, UA Negative Negative - 4(70) +++ mg/dL [facility] Blood, UA Negative Negative - 50 Fuad/mcL [facility] Clarity, UA Clear [facility] Color, UA Yellow [facility] Glucose, UA Negative Negative - 2000(110) ++++ mg/dL [facility] Interpretation and review of laboratory results Normal [facility] Ketones, UA Negative Negative - 160(16) ++++ mg/dL [facility] Leukocytes, UA Negative Negative - 500+++ Sandie/mcL [facility] Nitrite, UA Negative Negative - Positive [facility] pH, UA 7 5 - 9 [facility] Protein, UA Negative Negative - 2000(20) ++++ mg/dL [facility] Spec Grav, UA 1.02 1 - 1.03 [facility] Urobilinogen, UA 0.2 0.2 - 12 mg/dL Count includes the [facility] US OB LIMITED 1+ FETUSESon 0 - [...] II, MD, PHD at 24-Jul-2024 12:32:57 AM [facility] Normal Not Available Comment on above: Order Comment: US OB INCOMPLETE ANATOMY W US OB TRANSVAGINAL Estimated Date of Delivery: 11/09/24 Gestational Age as of 06/26/2024: 20w4d Urinalysis macro (dipstick) panel (U)on 07-23-2024 Bilirubin, UA Negative Negative - 4(70) +++ mg/dL [facility] Blood, UA Negative Negative - 50 Fuad/mcL [facility] Clarity, UA Clear [facility] Color, UA Yellow [facility] Glucose, UA Negative Negative - 1999(110) ++++ mg/dL [facility] Interpretation and review of laboratory results Normal [facility] Ketones, UA Negative Negative - 160(16) ++++ mg/dL [facility] Leukocytes, UA Negative Negative - 500+++ Sandie/mcL [facility] Nitrite, UA Negative Negative - Positive [facility] pH, UA 6 5 - 9 [facility] Protein, UA Negative Negative - 2000(20) ++++ mg/dL [facility] Spec Grav, UA 1.02 1 - 1.03 [facility] Urobilinogen, UA 0.2 0.2 - 12 mg/dL Count includes the [facility] AFP, SERUM, OPEN SPINA BIFID Aon 07-11-2024 AFP MOM 2.63 . [facility] AFP VALUE 133.2 ng/mL . [facility] COMMENT: Comment . [facility] Comment on above: Ronit Moncada , Ph.D., [facility] Director References: Available Upon Request. Multiples Of Median Cutoffs For AFP Elevations Giles 2.5 Black 2.8 IDD 2.0 Twins 4.5 Abbreviation Definitions IDD - Insulin Dep Diabetes OSBR - Open Spina Bifida Risk For further inquiries contact [employer] at [phone]. This test was developed and its performance characteristics determined by [facility]. It has not been cleared or approved by the Food and Drug Administration. Performed at: [facility] [address] [facility], [place], [place] [id number] Clerical Methods Analyst: Darion Albrecht [facility], Phone: [phone] GEST. AGE ON COLLECTION DATE 18.0 . weeks [facility] GESTAT. AGE BASED ON As provided . [facility] Comment on above: Recalculations are n ot recommended when gestational dating by LMP and ultrasound are within 10 days. INSULIN DEP DIABETES No . [facility] INTERPRETATION Comment . [facility] Comment on above: Interpretation: Scre en [...] Interpretation and review of laboratory results Abnormal [facility] [age] [facility] MULTIPLE GESTATION No . [facility] OSBR RISK 1 IN 225 . [facility] RACE . [facility] RESULTS Report . [facility] TEST RESULTS: Positive Abnormal . [facility] WEIGHT 119 . lbs [facility] N N ULTRASOUND [id number] N 1 119 N N N N N White/ [facility] Urinalysis macro (dipstick) panel (U)on 06-26-2024 Bilirubin, UA Negative Negative - 4(70) +++ mg/dL [facility] Blood, UA Negative Negative - 50 Fuad/mcL [facility] Clarity, UA Clear [facility] Color, UA Yellow [facility] Glucose, UA Negative Negative - 2000(110) ++++ mg/dL [facility] Interpretation and review of laboratory results Normal [facility] Ketones, UA Negative Negative - 160(16) ++++ mg/dL [facility] Leukocytes, UA Negative Negative - 500+++ Sandie/mcL [facility] Nitrite, UA Negative Negative - Positive [facility] pH, UA 6 5 - 9 [facility] Protein, UA Negative Negative - 2000(20) ++++ mg/dL [facility] Spec Grav, UA 1.025 1 - 1.03 [facility] Urobilinogen, UA 0.2 0.2 - 12 mg/dL Count includes the [facility] No Panel InformationOrdered By: Radiologist Radiology on 06-23-2024 [facility] Work Phone: No Panel Informationon 06-23 Radiology Study observation (narrative) [facility] US OB ANATOMYon 06-23-[address] [address] Ultrasound Report Signed Patient: GIANCARLO CELAYA MR#: [id number] : 1995 Acct:[id number] Age/Sex: 28 / F ADM Date: 06/22/24 Loc: US Attending Dr: Cheryl Baugh Ordering Physician: Cheryl Baugh Date of Service: 06/22/24 Procedure(s): US OB anatomy Accession Number(s): [id number] cc: Cheryl Baugh; EVELYN VU [place] [phone] Patient Name: GIANCARLO CELAYA MRN: [facility]:[id number] date: 1995 Sex: F Assigned Patient Location: US Current Patient Location: Accession/Order Number: [id number] Exam Date: 06/22/2024 17:16 Report Date: 06/23/2024 [...] Signed By: 06/23/24 08 DD/ 0757 TD/TT: Inspector Soldering: [facility] Radiology, Radiologist, - 06/23/2024 [place] [address] Ultrasound Report Signed Patient: GIANCARLO CELAYA MR#: [id number] : 1995 Acct:[id number] Age/Sex: 28 / F ADM Date: 06/22/24 Loc: US Attending Dr: Cheryl Baugh Ordering Physician: Cheryl Baugh Date of Service: 06/22/24 Procedure(s): US OB anatomy Accession Number(s): [id number] cc: Cheryl Baugh; EVELYN VU [place] [phone] Patient Name: GIANCARLO CELAYA MRN: [facility]:[id number] date: 1995 Sex: F Assigned Patient Location: US Current Patient Location: Accession/Order Number: [id number] Exam Date: 06/22/2024 17:16 Report Date: 06/23/2024 [...] Signed By: 06/23/24 0800 DD/ 0757 TD/TT: Inspector Soldering: [facility] US OB CERVICAL LENGTHon 06-09 [place] [address] Ultrasound Report Signed Patient: GIANCARLO CELAYA MR#: [id number] : 1995 Acct:[id number] Age/Sex: 28 / F ADM Date: 06/22/24 Loc: US Attending Dr: Cheryl Baugh Ordering Physician: Cheryl Baugh Date of Service: 06/22/24 Procedure(s): US OB cervical length Accession Number(s): [id number] cc: Cheryl Baugh; EVELYN VU [place] [phone] Patient Name: GIANCARLO CELAYA MRN: [facility]:[id number] date: 1995 Sex: F Assigned Patient Location: US Current Patient Location: Accession/Order Number: [id number] Exam Date: 06/22/2024 17:16 Report Date: 06/23/2024 [...] Signed By: 06/23/24 0800 DD/ 0757 TD/TT: Inspector Soldering: [facility] Radiology, Radiologist, - 06/23/2024 [place] [address] Ultrasound Report Signed Patient: GIANCARLO CELAYA MR#: [id number] : 1995 Acct:[id number] Age/Sex: 28 / F ADM Date: 06/22/24 Loc: US Attending Dr: Cheryl Baugh Ordering Physician: Cheryl Baugh Date of Service: 06/22/24 Procedure(s): US OB cervical length Accession Number(s): [id number] cc: Cheryl Baugh; EVELYN VU [place] [phone] Patient Name: GIANCARLO CELAYA MRN: [facility]:[id number] date: 1995 Sex: F Assigned Patient Location: US Current Patient Location: Accession/Order Number: [id number] Exam Date: 06/22/2024 17:16 Report Date: 06/23/2024 [...] Signed By: 06/23/24 0800 DD/ 0757 TD/TT: Inspector Soldering: [facility] IGP,APTIMA HPV,AGE GDLNon AGE GDLN ACOG TESTING Note . [facility] Comment on above: TESTS RESULT FLAG UN ITS REF RANGE LAB Clinician Provided Cytology Information Source.............Cervix No. of containers..01 ThinPrep Vial Age Algo ACOG Jessica... FLAG LEGEND: L-Low Normal,H-High Normal,LL-Alert Low,HH-Alert High <-Panic Low,>-Panic High,A-Abnormal,AA-Critical Abnormal Performed at: 01 =G [facility] [place] [address] [place] [address] Bri Keenan MD, IGP, RFX APTIMA HPV ASCU Note . [facility] Comment on above: TESTS RESULT FLAG UN ITS REF RANGE LAB DIAGNOSIS: 02 NEGATIVE FOR INTRAEPITHELIAL LESION OR MALIGNANCY. Specimen adequacy: 02 Satisfactory for evaluation. No endocervical component is identified. Performed by: 02 Ramin Farrell, Stone Driller Helper ([facility]) . 02 Note: Note 02 The Pap [...] High,A-Abnormal,AA-Critical Abnormal Performed at: 02 WB [facility] [place] [address] [place] [place] [address] Bri Keenan MD, Performed at: = - [facility] [address] [id number] Clerical Methods Analyst: Bri Keenan MD, Phone: [phone] Performed at: - [facility] [address], [place] [id number] Clerical Methods Analyst: Bri Keenan MD, Phone: [phone] SPATULA[facility] CERVIX [facility] Urinalysis macro (dipstick) panel (U)on 05-28-2024 Bilirubin, UA Negative Negative - 4(70) +++ mg/dL [facility] Blood, UA Negative Negative - 50 Fuad/mcL [facility] Clarity, UA Clear [facility] Color, UA Yellow [facility] Glucose, UA Negative Negative - 1999(110) ++++ mg/dL [facility] Interpretation and review of laboratory results Normal [facility] Ketones, UA Negative Negative - 160(16) ++++ mg/dL [facility] Leukocytes, UA Negative Negative - 500+++ Sandie/mcL [facility] Nitrite, UA Negative Negative - Positive [facility] pH, UA 5.5 5 - 9 [facility] Protein, UA Negative Negative - 1999(20) ++++ mg/dL [facility] Spec Grav, UA 1.02 1 - 1.03 [facility] Urobilinogen, UA 1.0 0.2 - 12 mg/dL [facility] Urinalysis macro (dipstick) panel (U)on 04-30-2024 Bilirubin, UA Negative Negative - 4(70) +++ mg/dL [facility] Blood, UA Negative Negative - 50 Fuad/mcL [facility] Clarity, UA Clear [facility] Color, UA Yellow [facility] Glucose, UA Negative Negative - 1999(110) ++++ mg/dL [facility] Interpretation and review of laboratory results Abnormal [facility] Ketones, UA Positive Negative - 160(16) ++++ mg/dL [facility] Comment on above: trace Leukocytes, UA Negative Negative - 500+++ Sandie/mcL [facility] Nitrite, UA Negative Negative - Positive [facility] pH, UA 5.5 5 - 9 [facility] Protein, UA Negative Negative - 1999(20) ++++ mg/dL [facility] Spec Grav, UA 1.025 1 - 1.03 [facility] Urobilinogen, UA 0.2 0.2 - 12 mg/dL Count includes the [facility] Basophils Auto (Bld) [#/Vol] on 04-16-2024 Basophils (Bld) [#/Vol] Automated basophil count 0.0-0.1 [facility] Basophils/100 WBC Auto (Bld) on 04-16-2024 Basophils/100 WBC (Bld) Automated basophil % 0.2-2.0 [facility] Buprenorphine [Presence] in Urineon 04-16-2024 Buprenorphine Ql (U) Buprenorphine [Presence] in Urine NEGATIVE [facility] [place] Comment on above: DRUG CLASS TEST SYST EM CUT-OFF CONCENTRATIONS ARE ASFOLLOWS:AMP (Amphetamine): 500 ng/mLBAR (Barbiturates): 200 ng/mLBZO (Benzodiazepines): 150 ng/mLBUP (Buprenorphine): 10 ng/mLCOC (Cocaine): 150 ng/mLmAMP (Methamphetamine): 500 ng/mLMTD (Methadone): 200 ng/mLOPI (Opiates): 100 ng/mLOXY (Oxycodone): 100 ng/mLPCP (Phencyclidine): 25 ng/mLTHC (Cannabinoids): 50 ng/mLTCA (Trycyclic Antidepressants): 300 ng/mL Eosinophils/100 WBC Auto (Bl d)on 04-16-2024 Eosinophils/100 WBC (Bld) Automated eosinophil % Low 0.9-7.0 [facility] [place] Erythrocyte distribution wid th Auto (RBC) [Ratio]on 04-16-2024 Erythrocyte distribution width (RBC) [Ratio] Erythrocyte distribution width [Ratio] by Automated count 11.0-15.0 [facility] [place] Glucose mean value [Mass/vol ume] in Blood Estimated from glycated hemoglobinon 04-16-2024 Average glucose Estimated from glycated hemoglobin (Bld) [Mass/Vol] Glucose mean value [Mass/volume] in Blood Estimated from glycated hemoglobin [facility] [place] HBV surface Ag IA Qlon 04-16 Hepatitis B Surface Antigen Negative Negative [facility] [place] Comment on above: Performed at: [address] [id number] Director: hSeldon Polo PhD, Phone: [phone] HIV 1 and HIV-2 antibody ass ay with HIV-1 p24 antigen detectionon 04-16-2024 HIV 1+2 Ab+HIV1 p24 Ag IA Ql HIV 1 and HIV-2 antibody assay with HIV-1 p24 antigen detection Non Reactive [facility] [place] Comment on above: HIV-1/HIV-2 antibodi es and HIV-1 p24 antigen were NOTdetected. There is no laboratory evidence of HIV infection.HIV NegativePerformed at: [facility] [address] [id number] Director: Sheldon Polo PhD, Phone: [phone] Hematocrit Auto (Bld) [Volum e fraction]on 04-16-2024 Hematocrit (Bld) [Volume fraction] Hematocrit [Volume Fraction] of Blood by Automated count 36.0-48.0 [facility] [place] Hemoglobin [Mass/volume] in Bloodon 04-16-2024 Hemoglobin (Bld) [Mass/Vol] Hemoglobin [Mass/volume] in Blood 12.0-16.0 [facility] [place] Laboratory - Drug toxicology on 04-16-2024 Amphetamines Ql (U) Negative NEGATIVE [facility] Benzodiazepines Ql (U) Negative NEGATIVE [facility] Cocaine Ql (U) Negative NEGATIVE [facility] Opiates Ql (U) Negative NEGATIVE [facility] Phencyclidine Ql (U) Negative NEGATIVE [facility] - Hematology and Cell countson 04-16-2024 HbA1c (Bld) [Mass fraction] 4.8 % 4.5-6.2 [facility] [place] Comment on above: ADA RECOMMENDED LIMI T 4.0 - 6.0ADA THERAPEUTIC TARGET < 7.0ACTION SUGGESTED> 7.0 Immature granulocytes/100 WBC (Bld) 0.6 % High 0.0-0.5 [facility] [place] Leukocytes [#/volume] correc leonidas for nucleated erythrocytes in Blood by Automated counon 04-16-2024 WBC corrected for nucl RBC Auto (Bld) [#/Vol] Leukocytes [#/volume] corrected for nucleated erythrocytes in Blood by Automated coun 4.0-11.0 [facility] [place] Lymphocytes Auto (Bld) [#/Vo l]on 04-16-2024 Lymphocytes (Bld) [#/Vol] Lymphocytes [#/volume] in Blood by Automated count 1.2-3.8 [facility] [place] Lymphocytes/100 WBC Auto (Bl d)on 04-16-2024 Lymphocytes/100 WBC (Bld) Lymphocytes/100 leukocytes in Blood by Automated count Low 20.5-60.0 [facility] [place] MCH Auto (RBC) [Entitic mass ]on 04-16-2024 MCH (RBC) [Entitic mass] MCH [Entitic mass] by Automated count 26.7-34.0 [facility] [place] MCHC Auto (RBC) [Mass/Vol]on 04-16-2024 MCHC (RBC) [Mass/Vol] MCHC [Mass/volume] by Automated count High 29.9-35.2 [facility] [place] MCV Auto (RBC) [Entitic vol] on 04-16-2024 MCV (RBC) [Entitic vol] MCV [Entitic volume] by Automated count 81.0-99.0 [facility] [place] MLR HEMOGLOBIN A1Con 024 Glucose [Mass/Vol] 91 mg/dL [facility] HbA1c (Bld) [Mass fraction] 4.8 % 4.5 - 6.2 % [facility] Comment on above: ADA RECOMMENDED LIMI T 4.0 - 6.0 ADA THERAPEUTIC TARGET < 7.0 ACTION SUGGESTED > 7.0 [facility] Methadone [Presence] in Urin e by Screen methodon 04-16-2024 Methadone Screen Ql (U) Methadone [Presence] in Urine by Screen method NEGATIVE [facility] [place] Monocytes Auto (Bld) [#/Vol] on 04-16-2024 Monocytes (Bld) [#/Vol] Automated blood monocyte count 0.3-0.8 [facility] [place] Monocytes/100 WBC Auto (Bld) on 04-16-2024 Monocytes/100 WBC (Bld) Automated monocyte % 1.7-12.0 [facility] Neutrophils Auto (Bld) [#/Vo l]on 04-16-2024 Neutrophils (Bld) [#/Vol] Neutrophils [#/volume] in Blood by Automated count High 1.4-6.5 [facility] [place] Neutrophils/100 WBC Auto (Bl d)on 04-16-2024 Neutrophils/100 WBC (Bld) Automated neutrophil % 43.0-75.0 [facility] [place] No Panel Informationon 04-16 Eosinophils # (Auto) 0.1 10 3/uL 0.0-0.7 [facility] [place] Hepatitis C Interpretation Comment . [facility] [place] Comment on above: Not infected with HC V unless early or acute infection issuspected (which may be delayed in an immunocompromisedindividual), or other evidence exists to indicate HCVinfection. Immature Granulocyte # (Auto) 0.05 10 3/uL High 0.00-0.03 [facility] [place] RPR Quantitative Confirmation Non Reactive titer NonRea<1:1 [facility] [place] Comment on above: Please Note: This te st does not meet current guidelines forscreening and diagnosis of syphilis. This test isintended for following treatment response in patients beingtreated for syphilis infection. To screen for syphilisinfection, a reflex cascade that includes both RPR and atreponema-specific assay should be utilized, such asTreponema pallidum (Syphilis) Screening [place] (343534) orRapid Plasma Reagin (RPR) Test With Reflex to QuantitativeRPR and Confirmatory Treponema pallidum Antibodies(230733).Performed at: [facility] [employer] [id number] Director: Sheldon Polo PhD, Phone: [phone] Rubella IgG Antibody 7.20 index Immune >0.99 [facility] [place] Comment on above: Non-immune <0.90 Equ ivocal 0.90 - 0.99 Immune >0.99 Urine Barbiturates Screen Negative NEGATIVE [facility] [place] Urine Marijuana (THC) Screen Negative NEGATIVE [facility] Urine Methamphetamines Screen Negative NEGATIVE [facility] Platelet mean volume Auto (B ld) [Entitic vol]on 04-16-2024 Platelet mean volume (Bld) [Entitic vol] Platelet mean volume [Entitic volume] in Blood by Automated count 9.5-13.5 [facility] [place] Platelets Auto (Bld) [#/Vol] on 04-16-2024 Platelets (Bld) [#/Vol] Platelets [#/volume] in Blood by Automated count 150-450 [facility] [place] RBC Auto (Bld) [#/Vol]on RBC (Bld) [#/Vol] Erythrocytes [#/volume] in Blood by Automated count 4.20-5.40 [facility] [place] Serum or plasma hepatitis C virus antibody signal/cutoff ratio by immunoassay (relation 04-16-2024 HCV Ab Signal/Cutoff IA [Rel units/Vol] Serum or plasma hepatitis C virus antibody signal/cutoff ratio by immunoassay (relati Non Reactive [facility] Urine tricyclic antidepressa nt measurementon 04-16-2024 Tricyclic antidepressants (U) [Mass/Vol] Urine tricyclic antidepressant measurement NEGATIVE [facility] [place] oxyCODONE+oxyMORphone [Prese nce] in Urine by Screen methodon 04-16-2024 oxyCODONE+oxyMORphone Screen Ql (U) oxyCODONE+oxyMORphone [Presence] in Urine by Screen method NEGATIVE [facility] BOX TESTon 04-13-2024 BOX TEST SENT OUT 04/13/2024 [facility] [address] [facility] [address] [facility] HCG ( test) Ql (U)o n 03-23-2024 Interpretation and review of laboratory results Abnormal [facility] Preg Test, Ur Positive Negative Count includes the [facility] Urinalysis macro (dipstick) panel (U)on 03-23-2024 Bilirubin, UA Negative Negative - 4(70) +++ mg/dL [facility] Blood, UA Negative Negative - 50 Fuad/mcL [facility] Clarity, UA Clear [facility] Color, UA Yellow [facility] Glucose, UA Negative Negative - 1999(110) ++++ mg/dL [facility] Interpretation and review of laboratory results Abnormal [facility] Ketones, UA Positive Negative - 160(16) ++++ mg/dL [facility] Leukocytes, UA Negative Negative - 500+++ Sandie/mcL [facility] Nitrite, UA Negative Negative - Positive [facility] pH, UA 5.5 5 - 9 [facility] Protein, UA Negative Negative - 1999(20) ++++ mg/dL [facility] Spec Grav, UA 1.03 1 - 1.03 [facility] Urobilinogen, UA 0.2 0.2 - 12 mg/dL Count includes the [facility] Laboratory - Chemistry and C hemistry - challengeon 03-17-2024 Bilirubin Ql (U) Negative NEGATIVE [facility] Glucose (U) [Mass/Vol] Negative NEGATIVE [facility] Ketones Ql (U) Negative NEGATIVE [facility] pH (U) 7.0 [pH] 5.0-9.0 [facility] Specific gravity (U) [Rel density] 1.020 1.005-1.025 [facility] Urobilinogen Qn (U) 1.0 {Chanel'U}/dL 0.2-1.0 [facility] [place] Laboratory - Specimen inform ationon 03-17-2024 Appearance (U) CLEAR CLEAR [facility] Color (U) LT. YELLOW YELLOW [facility] Laboratory - Urinalysison Leukocyte esterase Test strip Ql (U) TRACE Abnormal NEGATIVE [facility] Mucus Ql (Urine sed) TRACE Abnormal NONE SEEN [facility] Nitrite Ql (U) Negative NEGATIVE [facility] Protein Ql (U) Negative NEG/TRACE [facility] No Panel Informationon 03-17 Human Chorionic Gonadotropin, Quant 15892 mIU/mL [facility] [place] Comment on above: 5-50 0.2-1 [id number] 0 1-2 RQKLM073-2,000 2-3 NXEQB445-08,000 3-4 WEEKS1,000-50,000 4-5 WEEKS10,000-100,000 5-6 WEEKS15,000-200,000 6-8 WEEKS10,000-100,000 2-3 MONTHS Miscellaneous Test Comment See comment [facility] Comment on above: Specimen Source: UCC - Urine,Clean Catch - Urine CC - 200.100 Urine Bacteria MODERATE #/HPF Abnormal NONE SEEN [facility] Urine Culture Reflexed YES [facility] Urine Culture Result 1 \R\ Urine Culture, Routine [facility] Urine Microscopic Review YES [facility] Urine Occult Blood MODERATE Abnormal NEGATIVE [facility] Urine Other Casts NONE SEEN #/LPF NONE SEEN Fi [facility] Urine Other Crystals None Seen #/HPF None Seen [facility] Urine RBC 2-5 #/HPF Abnormal 0-2 [facility] Urine Squamous Epithelial Cells MODERATE #/LPF Abnormal NONE/RARE [facility] Urine WBC 0-2 #/HPF Abnormal NONE SEEN [facility] [place] HCG ( test) Ql (U)o n 03-14-2024 Interpretation and review of laboratory results Abnormal [facility] Preg Test, Ur Positive Negative Count includes the [facility] Urinalysis macro (dipstick) panel (U)on 03-14-2024 Bilirubin, UA Positive Negative - 4(70) +++ mg/dL [facility] Comment on above: small Blood, UA Positive Negative - 50 Fuad/mcL [facility] Comment on above: moderate Clarity, UA Clear [facility] Color, UA Yellow [facility] Glucose, UA Negative Negative - 1999(110) ++++ mg/dL [facility] Interpretation and review of laboratory results Abnormal [facility] Ketones, UA Positive Negative - 160(16) ++++ mg/dL [facility] Comment on above: 40 Leukocytes, UA Negative Negative - 500+++ Sandie/mcL [facility] Nitrite, UA Negative Negative - Positive [facility] pH, UA 5.5 5 - 9 [facility] Protein, UA Negative Negative - 1999(20) ++++ mg/dL [facility] Spec Grav, UA 1.03 1 - 1.03 [facility] Urobilinogen, UA 0.2 0.2 - 12 mg/dL Count includes the [facility] No Panel Informationon 03-08 Human Chorionic Gonadotropin, Quant 2190 mIU/mL [facility] Comment on above: 5-50 0.2-1 [id number] 0 1-2 GJVUV999-1,000 2-3 [id number],000 3-4 WEEKS1,000-50,000 4-5 WEEKS10,000-100,000 5-6 WEEKS15,000-200,000 6-8 WEEKS10,000-100,000 2-3 MONTHS [facility] PREG QUANT HCGon 024 HCG QUANTITATIVE 2190 mIU/mL [facility] Comment on above: 5-50 0.2-1 WEEK 50-500 1-2 WEEKS 100-5,000 2-3 WEEKS 500-10,000 3-4 WEEKS 1,000-50,000 4-5 WEEKS 10,000-100,000 5-6 WEEKS 15,000-200,000 6-8 WEEKS 10,000-100,000 2-[address] [facility] No Panel Informationon 03-02 Human Chorionic Gonadotropin, Quant 67 mIU/mL [facility] [place] Comment on above: 5-50 0.2-1 [id number] 0 1-2 PZPHM071-1,000 2-3 CVYOI413-13,000 3-4 WEEKS1,000-50,000 4-5 WEEKS10,000-100,000 5-6 WEEKS15,000-200,000 6-8 WEEKS10,000-100,000 2-3 MONTHS No Panel Informationon 02-28 Human Chorionic Gonadotropin, Quant 30 mIU/mL [facility] [place] Comment on above: 5-50 0.2-1 [id number] 0 1-2 BNCEK716-3,000 2-3 YHRWE843-54,000 3-4 WEEKS1,000-50,000 4-5 WEEKS10,000-100,000 5-6 WEEKS15,000-200,000 6-8 WEEKS10,000-100,000 2-3 MONTHS Basophils Auto (Bld) [#/Vol] on 02-27-2024 Basophils (Bld) [#/Vol] Automated basophil count 0.0-0.1 [facility] [place] Basophils/100 WBC Auto (Bld) on 02-27-2024 Basophils/100 WBC (Bld) Automated basophil % 0.2-2.0 [facility] [place] Eosinophils/100 WBC Auto (Bl d)on 02-27-2024 Eosinophils/100 WBC (Bld) Automated eosinophil % Low 0.9-7.0 [facility] [place] Erythrocyte distribution wid th Auto (RBC) [Ratio]on 02-27-2024 Erythrocyte distribution width (RBC) [Ratio] Erythrocyte distribution width [Ratio] by Automated count 11.0-15.0 [facility] [place] Estimated glomerular filtrat ion rate (GFR) non- Americanon 02-27-2024 GFR/1.73 sq M.predicted among non-blacks MDRD (S/P/Bld) [Vol rate/Area] Estimated glomerular filtration rate (GFR) non- >=60 mL/min/1.73 m 2 [facility] [place] HCG ( test) Amira cowart Ql (U)on 02-27-2024 HCG ( test) Ql (U) Urine human chorionic gonadotropin (hCG) detection by immunoassay Abnormal NEGATIVE [facility] [place] Hematocrit Auto (Bld) [Volum e fraction]on 02-27-2024 Hematocrit (Bld) [Volume fraction] Hematocrit [Volume Fraction] of Blood by Automated count 36.0-48.0 [facility] [place] Hemoglobin [Mass/volume] in Bloodon 02-27-2024 Hemoglobin (Bld) [Mass/Vol] Hemoglobin [Mass/volume] in Blood 12.0-16.0 [facility] [place] Laboratory - Chemistry and C hemistry - challengeon 02-27-2024 Calcium [Mass/Vol] 9.4 mg/dL 8.5-10.1 [facility] Chloride [Moles/Vol] 104 mmol/L 98-107 [facility] CO2 [Moles/Vol] 22.6 mmol/L 21.0-32.0 [facility] Creatinine [Mass/Vol] 0.79 mg/dL 0.55-1.02 [facility] [place] GFR/1.73 sq M.predicted MDRD (S/P/Bld) [Vol rate/Area] mL/min/{1.73_m2} >=60 mL/min/1.73 m 2 [facility] [place] Glucose [Mass/Vol] 88 mg/dL 74-106 [facility] Potassium [Moles/Vol] 3.4 mmol/L Low 3.5-5.1 [facility] Sodium [Moles/Vol] 139 mmol/L 136-145 [facility] Urea nitrogen [Mass/Vol] 10.0 mg/dL 7.0-18.0 [facility] [place] Urea nitrogen/Creatinine [Mass ratio] 12.7 mg/mg [facility] [place] Bilirubin Ql (U) Negative NEGATIVE [facility] Glucose (U) [Mass/Vol] Negative NEGATIVE [facility] Ketones Ql (U) 15 mg/dL Abnormal NEGATIVE [facility] pH (U) 6.0 [pH] 5.0-9.0 [facility] Specific gravity (U) [Rel density] 1.025 1.005-1.025 [facility] [place] Urobilinogen Qn (U) 0.2 {Chanel'U}/dL 0.2-1.0 [facility] [place] Laboratory - Hematology and Cell countson 02-27-2024 Immature granulocytes/100 WBC (Bld) 0.1 % 0.0-0.5 [facility] [place] Laboratory - Specimen inform ationon 02-27-2024 Appearance (U) CLEAR CLEAR [facility] Color (U) LT. YELLOW YELLOW [facility] Laboratory - Urinalysison Leukocyte esterase Test strip Ql (U) Negative NEGATIVE [facility] Nitrite Ql (U) Negative NEGATIVE [facility] Protein Ql (U) Negative NEG/TRACE [facility] Leukocytes [#/volume] correc leonidas for nucleated erythrocytes in Blood by Automated counon 02-27-2024 WBC corrected for nucl RBC Auto (Bld) [#/Vol] Leukocytes [#/volume] corrected for nucleated erythrocytes in Blood by Automated coun 4.0-11.0 [facility] [place] Lymphocytes Auto (Bld) [#/Vo l]on 02-27-2024 Lymphocytes (Bld) [#/Vol] Lymphocytes [#/volume] in Blood by Automated count 1.2-3.8 [facility] Lymphocytes/100 WBC Auto (Bl d)on 02-27-2024 Lymphocytes/100 WBC (Bld) Lymphocytes/100 leukocytes in Blood by Automated count 20.5-60.0 [facility] [place] MCH Auto (RBC) [Entitic mass ]on 02-27-2024 MCH (RBC) [Entitic mass] MCH [Entitic mass] by Automated count 26.7-34.0 [facility] MCHC Auto (RBC) [Mass/Vol]on 02-27-2024 MCHC (RBC) [Mass/Vol] MCHC [Mass/volume] by Automated count High 29.9-35.2 [facility] MCV Auto (RBC) [Entitic vol] on 02-27-2024 MCV (RBC) [Entitic vol] MCV [Entitic volume] by Automated count 81.0-99.0 [facility] [place] Monocytes Auto (Bld) [#/Vol] on 02-27-2024 Monocytes (Bld) [#/Vol] Automated blood monocyte count 0.3-0.8 [facility] Monocytes/100 WBC Auto (Bld) on 02-27-2024 Monocytes/100 WBC (Bld) Automated monocyte % 1.7-12.0 [facility] [place] Neutrophils Auto (Bld) [#/Vo l]on 02-27-2024 Neutrophils (Bld) [#/Vol] Neutrophils [#/volume] in Blood by Automated count 1.4-6.5 [facility] [place] Neutrophils/100 WBC Auto (Bl d)on 02-27-2024 Neutrophils/100 WBC (Bld) Automated neutrophil % 43.0-75.0 [facility] [place] No Panel Informationon 02-26 Eosinophils # (Auto) 0.1 10 3/uL 0.0-0.7 [facility] Human Chorionic Gonadotropin, Quant 16 mIU/mL [facility] [place] Comment on above: 5-50 0.2-1 [id number] 0 1-2 NSGHR276-9,000 2-3 XNJCZ284-86,000 3-4 WEEKS1,000-50,000 4-5 WEEKS10,000-100,000 5-6 WEEKS15,000-200,000 6-8 WEEKS10,000-100,000 2-3 MONTHS Immature Granulocyte # (Auto) 0.01 10 3/uL 0.00-0.03 [facility] [place] Urine Microscopic Review NO [facility] [place] Urine Occult Blood Negative NEGATIVE [facility] Platelet mean volume Auto (B ld) [Entitic vol]on 02-27-2024 Platelet mean volume (Bld) [Entitic vol] Platelet mean volume [Entitic volume] in Blood by Automated count 9.5-13.5 [facility] [place] Platelets Auto (Bld) [#/Vol] on 02-27-2024 Platelets (Bld) [#/Vol] Platelets [#/volume] in Blood by Automated count 150-450 [facility] [place] RBC Auto (Bld) [#/Vol]on RBC (Bld) [#/Vol] Erythrocytes [#/volume] in Blood by Automated count 4.20-5.40 [facility] [place] Serum or plasma anion gap de terminationon 02-27-2024 Anion gap [Moles/Vol] Serum or plasma an ion gap determination [facility] [place] No Panel Informationon 02-20 Human Chorionic Gonadotropin, Quant <1 mIU/mL [facility] [place] Comment on above: 5-50 0.2-1 [id number] 0 1-2 NSUTQ940-8,000 2-3 CAURJ903-20,000 3-4 WEEKS1,000-50,000 4-5 WEEKS10,000-100,000 5-6 WEEKS15,000-200,000 6-8 WEEKS10,000-100,000 2-3 MONTHS URETHRITIS/DISCHARGE PLUS VA GINITIS (HTRX)on 02-10-2024 ATOPOBIUM VAGINAE 0.000 [facility] ATOPOBIUM VAGINAE Not detected [facility] BVAB 2,3 (BACTERIAL VAGINOSIS ASSOCIATED BACTERIA 2, 3); MOBILUNCUS SPP 0.000 [facility] BVAB 2,3 (BACTERIAL VAGINOSIS ASSOCIATED BACTERIA 2, 3); MOBILUNCUS SPP Not detected [facility] ALICIA ALBICANS, PARAPSILOSIS, TROPICALIS 0.000 [facility] ALICIA ALBICANS, PARAPSILOSIS, TROPICALIS Not detected [facility] ALICIA GLABRATA 0.000 [facility] ALICIA GLABRATA Not detected [facility] ALICIA KRUSEI 0.000 [facility] ALICIA KRUSEI Not detected [facility] CHLAMYDIA TRACHOMATIS 0.000 [facility] CHLAMYDIA TRACHOMATIS Not detected N [facility] GARDNERELLA VAGINALIS 0.000 [facility] GARDNERELLA VAGINALIS Not detected N [facility] MEGASPHAERA (TYPES 1, 2) 0.000 [facility] MEGASPHAERA (TYPES 1, 2) Not detected [facility] MYCOPLASMA GENITALIUM 0.000 [facility] MYCOPLASMA GENITALIUM Not detected N [facility] NEISSERIA GONORRHOEAE 0.000 [facility] NEISSERIA GONORRHOEAE Not detected N [facility] TRICHOMONAS VAGINALIS 0.000 [facility] TRICHOMONAS VAGINALIS Not detected N [facility] HCG ( test) Ql (U)o n 02-08-2024 Interpretation and review of laboratory results Normal [facility] Preg Test, Ur Negative Count includes the [facility] Urinalysis macro (dipstick) panel (U)on 02-08-2024 Bilirubin, UA Negative Negative - 4(70) +++ mg/dL [facility] Blood, UA Negative Negative - 50 Fuad/mcL [facility] Clarity, UA Clear [facility] Color, UA Yellow [facility] Glucose, UA Negative Negative - 2000(110) ++++ mg/dL [facility] Interpretation and review of laboratory results Normal [facility] Ketones, UA Negative Negative - 160(16) ++++ mg/dL [facility] Leukocytes, UA Negative Negative - 500+++ Sandie/mcL [facility] Nitrite, UA Negative Negative - Positive [facility] pH, UA 7.5 5 - 9 [facility] Protein, UA Negative Negative - 2000(20) ++++ mg/dL [facility] Spec Grav, UA 1.020 1 - 1.03 [facility] Urobilinogen, UA 0.2 0.2 - 12 mg/dL Count includes the [facility] Vaginitis Plus (VG+)on 02-01 Atopobium Vaginae Low - 0 Normal . [facility] Comment on above: Result Comment: This test was developed and its performance characteristics determined by [facility]. It has not been cleared or approved by the Food and Drug Administration. Performed By: #### V AGINITIS+ #### [facility] , BVAB2 Low - 0 Normal . [facility] Comment on above: Result Comment: This test was developed and its performance characteristics determined by [facility]. It has not been cleared or approved by the Food and Drug Administration. Performed By: #### V AGINITIS+ #### [facility] , Alicia Albicans, ELDON Positive Critically abnormal Negative [facility] Comment on above: Result Comment: This test was developed and its performance characteristics determined by [facility]. It has not been cleared or approved by the Food and Drug Administration. Performed By: #### V AGINITIS+ #### [facility] , Alicia Glabrata, ELDON Negative Normal Negative [facility] Comment on above: Result Comment: This test was developed and its performance characteristics determined by [facility]. It has not been cleared or approved by the Food and Drug Administration. PERFORMED BY: [place] [address] [place] [address] PATHOLOGIST MANUFACTURING PROJECT ENGINEER IRENE TURPIN M.D. Performed By: #### V AGINITIS+ #### [facility] , Chlamydia Trachomotis, ELDON Negative Normal Negative [facility] Comment on above: Performed By: #### V AGINITIS+ #### [facility] , Megasphaera Low - 0 Normal . [facility] Comment on above: Result [...] Neisseria Gonorrhoeae, ELDON Negative Normal Negative [facility] Comment on above: Result Comment: Perf ormed at: =G - [facility] [address] [id number] Clerical Methods Analyst: Bri Keenan MD, Phone: [phone] Performed By: #### V AGINITIS+ #### [facility] , Tric Vag ELDON Negative Normal Negative [facility] Comment on above: Performed By: #### V AGINITIS+ #### [facility] , Basophils Auto (Bld) [#/Vol] on 01-19-2024 Basophils (Bld) [#/Vol] 0.0 10 3/uL 0.0-0.1 [facility] [place] Basophils/100 WBC Auto (Bld) on 01-19-2024 Basophils/100 WBC (Bld) 0.4 % 0.2-2.0 [facility] [place] Eosinophils/100 WBC Auto (Bl d)on 01-19-2024 Eosinophils/100 WBC (Bld) 1.0 % 0.9-7.0 [facility] [place] Erythrocyte distribution wid th Auto (RBC) [Ratio]on 01-19-2024 Erythrocyte distribution width (RBC) [Ratio] 11.7 % 11.0-15.0 [facility] [place] Estimated glomerular filtrat ion rate (GFR) non- Americanon 01-19-2024 GFR/1.73 sq M.predicted among non-blacks MDRD (S/P/Bld) [Vol rate/Area] mL/min/{1.73_m2} >=60 [facility] [place] Hematocrit Auto (Bld) [Volum e fraction]on 01-19-2024 Hematocrit (Bld) [Volume fraction] 39.6 % 36.0-48.0 [facility] [place] Hemoglobin [Mass/volume] in Bloodon 01-19-2024 Hemoglobin (Bld) [Mass/Vol] 14.3 g/dL 12.0-16.0 [facility] [place] Laboratory - Chemistry and C hemistry - challengeon 01-19-2024 Calcium [Mass/Vol] 8.7 mg/dL 8.5-10.1 [facility] Chloride [Moles/Vol] 100 mmol/L 98-107 [facility] CO2 [Moles/Vol] 27.5 mmol/L 21.0-32.0 [facility] Creatinine [Mass/Vol] 0.88 mg/dL 0.55-1.02 [facility] [place] GFR/1.73 sq M.predicted MDRD (S/P/Bld) [Vol rate/Area] mL/min/{1.73_m2} >=60 [facility] [place] Glucose [Mass/Vol] 94 mg/dL 74-106 [facility] Potassium [Moles/Vol] 3.3 mmol/L Low 3.5-5.1 [facility] [place] Sodium [Moles/Vol] 135 mmol/L Low 136-145 [facility] Urea nitrogen [Mass/Vol] 12.0 mg/dL 7.0-18.0 [facility] [place] Urea nitrogen/Creatinine [Mass ratio] 13.6 mg/mg [facility] [place] Laboratory - Hematology and Cell countson 01-19-2024 Immature granulocytes/100 WBC (Bld) 0.0 % 0.0-0.5 [facility] [place] Leukocytes [#/volume] correc leonidas for nucleated erythrocytes in Blood by Automated counon 01-19-2024 WBC corrected for nucl RBC Auto (Bld) [#/Vol] 4.8 10 3/uL 4.0-11.0 [facility] [place] Lymphocytes Auto (Bld) [#/Vo l]on 01-19-2024 Lymphocytes (Bld) [#/Vol] 1.2 10 3/uL 1.2-3.8 [facility] [place] Lymphocytes/100 WBC Auto (Bl d)on 01-19-2024 Lymphocytes/100 WBC (Bld) 25.1 % 20.5-60.0 [facility] [place] MCH Auto (RBC) [Entitic mass ]on 01-19-2024 MCH (RBC) [Entitic mass] 30.4 pg 26.7-34.0 [facility] [place] MCHC Auto (RBC) [Mass/Vol]on 01-19-2024 MCHC (RBC) [Mass/Vol] 36.1 g/dL High 29.9-35.2 [facility] [place] MCV Auto (RBC) [Entitic vol] on 01-19-2024 MCV (RBC) [Entitic vol] 84.1 fL 81.0-99.0 [facility] [place] Monocytes Auto (Bld) [#/Vol] on 01-19-2024 Monocytes (Bld) [#/Vol] 0.6 10 3/uL 0.3-0.8 [facility] [place] Monocytes/100 WBC Auto (Bld) on 01-19-2024 Monocytes/100 WBC (Bld) 11.6 % 1.7-12.0 [facility] [place] Neutrophils Auto (Bld) [#/Vo l]on 01-19-2024 Neutrophils (Bld) [#/Vol] 3.0 10 3/uL 1.4-6.5 [facility] [place] Neutrophils/100 WBC Auto (Bl d)on 01-19-2024 Neutrophils/100 WBC (Bld) 61.9 % 43.0-75.0 [facility] [place] No Panel Informationon 01-18 Eosinophils # (Auto) 0.1 10 3/uL 0.0-0.7 [facility] [place] Human Chorionic Gonadotropin, Qual Negative NEGATIVE [facility] [place] Immature Granulocyte # (Auto) 0.00 10 3/uL 0.00-0.03 [facility] [place] Platelet mean volume Auto (B ld) [Entitic vol]on 01-19-2024 Platelet mean volume (Bld) [Entitic vol] 11.2 fL 9.5-13.5 [facility] [place] Platelets Auto (Bld) [#/Vol] on 01-19-2024 Platelets (Bld) [#/Vol] 137 10 3/uL Low 150-450 [facility] [place] RBC Auto (Bld) [#/Vol]on RBC (Bld) [#/Vol] 4.71 10 6/uL 4.20-5.40 [facility] Serum or plasma anion gap de terminationon 01-19-2024 Anion gap [Moles/Vol] 10.8 mmol/L Fi [facility] Choriogonadotropin.beta subu nit ( test) [Presence] in Urineon 01-03-2024 Beta HCG ( test) Ql (U) Negative [facility] [place] Influenza virus A and B and SARS-CoV-2 (COVID-19) RNA panel - Respiratory system specon 01-03-2024 Influenza virus A and B RNA and SARS-CoV-2 (COVID-19) N gene panel ELDON+probe (Resp) Negative [facility] [place] Laboratory - Microbiology an d Antimicrobial susceptibilityon 01-03-2024 SARS-CoV-2 (COVID-19) RNA ELDON+probe Ql (Unsp spec) Negative [facility] [place] No Panel Informationon 01-02 POC Influenza B (ELDON) Negative [facility] [place] No Panel InformationOrdered By: Evelyn Vu on 01-03-2024 Quick Strep (POC) [facility] Quick Strepon 10-02-2022 S. pyogenes Org specific cx Ql (Throat) Negative [employer] Other Quick Strep [employer] Other COVID19(IDNOW)on 11-30-2019 COVID19(IDNOW) NOT DETECTED Normal NOT DETECTED [facility] Comment on above: Result Comment: Nega tive results do not preclude SARS-CoV-2 infection and should not be used as the sole basis for treatiment or other patient management. ENHANCED CONTACT, AND DROPLET ISOLATION IS REQUIRED FOR INPATIENTS WITH SARS-CoV-2. Performed By: #### C OVID19(IDNOW) #### [facility] [address] [place] [address] Age at specimen collection = Normal [facility] Comment on above: Performed By: #### C OVID19(IDNOW) #### [facility] [address] [place] [address] Hematologyon 05-11-2019 Basophils (Bld) [#/Vol] 0.0 10*3/uL 0.0-0.1 [employer] Basophils/100 WBC (Bld) 0.40 % 0.0-1.0 [employer] Eosinophils (Bld) [#/Vol] 0.10 10*3/uL 0.0-0.5 [employer] Eosinophils/100 WBC (Bld) 1.30 % 0.0-7.0 [employer] Hematocrit (Bld) [Volume fraction] 41.30 % 35.7-47.1 [employer] Hemoglobin (Bld) [Mass/Vol] 14.10 g/dL 11.9-15.7 [employer] Lymphocytes (Bld) [#/Vol] 2.20 10*3/uL 0.9-3.1 [employer] Lymphocytes/100 WBC (Bld) 29.30 % 15.0-46.0 [employer] MCH (RBC) [Entitic mass] 29.90 pg 23.2-33.3 [employer] MCV (RBC) [Entitic vol] 87.50 fL 83.4-101.4 [employer] Monocytes (Bld) [#/Vol] 0.60 10*3/uL 0.3-1.[address] [facility] [employer] [facility] Monocytes/100 WBC (Bld) 8.60 % 4.0-12.[address] [facility] [employer] [facility] Neutrophils (Bld) [#/Vol] 4.50 10*3/uL 1.8-7.[address] [facility] [employer] [facility] Neutrophils/100 WBC (Bld) 60.0 % 43.0-76.[address] [facility] [employer] [facility] Platelets (Bld) [#/Vol] 160.0 10*3/uL 150-[address] [facility] [employer] [facility] RBC (Bld) [#/Vol] 4.720 10*6/uL 3.72-5.24 [facility] [employer] [facility] WBC (Bld) [#/Vol] 7.40 10*3/uL 3.9-10.3 [facility] [employer] [facility] Otheron 05-11-2019 Erythrocyte distribution width (RBC) [Ratio] 12.10 % 11.5-15.[address] [facility] [employer] [facility] Immature granulocytes (Bld) [#/Vol] 0.030 10*3/uL 0.00-0.[address] [facility] [employer] [facility] Immature granulocytes/100 WBC (Bld) 0.40 % 0.0-0.[address] [facility] [employer] [facility] MCHC (RBC) [Mass/Vol] 34.10 g/dL 32.0-36.0 [facility] [employer] [facility] Platelet mean volume (Bld) [Entitic vol] 11.10 fL 8.3-11.5 [place] [employer] [facility] COMMENT [facility] [employer] <9.0 0.0-8.9 [employer] 303.0 0.0-17.9 [employer] <36.0 0.0-35.9 [employer] 38.9 0.0-17.9 [employer] Thyroidon 05-11-2019 TSH Qn 1.96 m[IU]/L 0.50-4.00 [place] [employer] Basic Metabolic Profon 04-20 (cont.) Normal [facility] Comment on above: Result Comment: Aver age GFR for 20-29 years old: 116 mL/min/1.73sq mChronic Kidney Disease: <60 mL/min/1.73sq mKidney failure: <15 mL/min/1.73sq meGFR calculated using average adult body mass. Additional eGFR calculator available at:http://www.NodePing.Trunity/multiple_crcl_2012.htm Performed By: #### B JOSEPH, CBC ####[address] [place] [address] Anion gap 3 molar conc 11 mmol/L Normal - [facility] Comment on above: Performed By: #### B JOSEPH, CBC ####[address] [place] [address] BUN/CRE Ratio 18 Normal 9-20 [facility] Comment on above: Performed By: #### B MP, CBC ####[address] [place] [address] Calcium mass conc 9.2 mg/dL Normal 8.6-10.4 [facility] Comment on above: Performed By: #### B MP, CBC ####[address] [place] [address] Chloride molar conc 102 mmol/L Normal 98-107 [facility] Comment on above: Performed By: #### B MP, CBC ####[address] [place] [address] CO2 molar conc 26 mmol/L Normal 20-[address] [facility] Comment on above: Performed By: #### B MP, CBC ####[address] [place] [address] Creatinine mass conc 0.65 mg/dL Normal 0.50-0.90 [facility] Comment on above: Performed By: #### B MP, CBC ####[address] [place] [address] GFR, Amer >60 Normal >60 [facility] Comment on above: Performed By: #### B MP, CBC ####[address] [place] [address] GFR,non Amer >60 Normal >60 [facility] Comment on above: Performed By: #### B MP, CBC ####[address] [place] [address] Glucose mass conc 89 mg/dL Normal 70-99 [facility] Comment on above: Performed By: #### B MP, CBC ####[address] [place] [address] Potassium molar conc 3.8 mmol/L Normal 3.7-5.3 [facility] Comment on above: Performed By: #### B MP, CBC ####[address] [place] [address] Sodium molar conc 139 mmol/L Normal 135-144 [facility] Comment on above: Performed By: #### B MP, CBC ####[address] [place] [address] Staging: Normal [facility] Comment on above: Result Comment: Stag e 1: Some kidney damage normal GFRStage 2: Mild kidney damage GFR 60-89Stage 3: Moderate kidney damage GFR 30-59Stage 4: Severe kidney damage GFR 15-29Stage 5: Severe kidney damage GFR <15ESRD - chronic treatment by dialysis or transplant Performed By: #### B MP, CBC ####[address] [place] [address] Urea nitrogen mass conc 12 mg/dL Normal 6-20 [facility] Comment on above: Performed By: #### B MP, CBC ####[address] [place] [address] CBCon 04-20-2018 Erythrocyte distribution width Auto Ratio (RBC) 12.1 % Normal 11.8-14.4 [facility] Comment on above: Performed By: #### B MP, CBC ####[address] [place] [address] Hematocrit Auto Volume Fraction (Bld) 42.6 % Normal 36.3-47.[address] [facility] Comment on above: Performed By: #### B MP, CBC ####[address] [place] [address] Hemoglobin mass conc (Bld) 14.7 g/dL Normal 11.9-15.1 [facility] Comment on above: Performed By: #### B MP, CBC ####[address] [place] [address] MCH Auto Entitic mass (RBC) 30.2 pg Normal 25.2-33.5 [facility] Comment on above: Performed By: #### B MP, CBC ####[address] [place] [address] MCHC Auto mass conc (RBC) 34.5 g/dL Normal 28.4-34.8 [facility] Comment on above: Performed By: #### B MP, CBC ####[address] [place] [address] MCV Auto Entitic volume (RBC) 87.7 fL Normal 82.6-102.9 [facility] Comment on above: Performed By: #### B MP, CBC ####[address] [place] [address] NRBC Automated 0.0 per 100 WBC Normal 0.0 [facility] Comment on above: Performed By: #### B MP, CBC ####[address] , [facility] [address] Platelet mean volume Auto Entitic volume (Bld) 10.8 fL Normal 8.1-13.5 [facility] Comment on above: Performed By: #### B MP, CBC ####[address] [place] [address] Platelets Auto #/vol (Bld) 142 10*3/uL Normal 138-453 [facility] Comment on above: Performed By: #### B MP, CBC ####[address] [place] [address] RBC Auto #/vol (Bld) 4.86 10*6/uL Normal 3.95-5.11 [facility] Comment on above: Performed By: #### B MP, CBC ####[address] [place] [address] WBC Auto #/vol (Bld) 6.2 10*3/uL Normal 4.5-13.5 [facility] Comment on above: Performed By: #### B MP, CBC ####[address] [place] [address] HCG, ,Urineon 04-20 HCG.beta subunit ( test) Ql (U) Negative Normal NEG [facility] Comment on above: Result Comment: Spec imens with hCG levels near the threshold of the test (25 mIU/mL) may give a negative or indeterminate result. In such cases, another test should be performed with a new specimen in 48-72 hours. If early is suspected clinically in this setting, correlation with quantitative serum b-hCG level is suggested.[facility] has confirmed the use of plasma for this test. This has not been cleared or approved by the U.S. Food and Drug Administration. The FDA has determined that such clearance is not necessary. Performed By: #### U HCG ####[address] [place] [address] UA w/Reflex Cultureon 2017 Acetoacetic Acid,Ur Negative Normal NEG [facility] Comment on above: Performed By: #### U AX, UMICAO ####[address] [place] [address] Bilirubin, SemiQt,Ur Negative Normal [facility] Comment on above: Performed By: #### U AX, UMICAO ####[address] [place] [address] Color YELLOW Normal YEL [facility] Comment on above: Performed By: #### U AX, UMICAO ####[address] [place] [address] Glucose,Semi-qnt,Ur Negative Normal [facility] Comment on above: Performed By: #### U AX, UMICAO ####[address] [place] [address] Hemoglobin, Ur Negative Normal NEG [facility] Comment on above: Performed By: #### U AX, UMICAO ####[address] [place] [address] Leuckocyte Esterase Negative Normal [facility] Comment on above: Performed By: #### U AX, UMICAO ####[address] [place] [address] Nitrite,Ur Negative Normal [facility] Comment on above: Performed By: #### U AX, UMICAO ####[address] [place] [address] PH,Ur 6.0 Normal 5.0-9.0 [facility] Comment on above: Performed By: #### DOMENICO EDWARDSO ####[address] [place] [address] Protein, Semi-qnt,Ur Negative Normal NEG [facility] Comment on above: Performed By: #### DOMENICO EDWARDSO ####[address] [place] [address] Spec. [place],Ur 1.025 High 1.010-1.020 [facility] Comment on above: Performed By: #### DOMENICO EDWARDSO ####[address] [place] [address] Turbidity CLEAR Normal CLEAR [facility] Comment on above: Performed By: #### DOMENICO EDWARDSO ####[address] [place] [address] Urobilinogen,Ur Normal Normal NORM [facility] Comment on above: Performed By: #### DOMENICO EDWARDSO ####[address] [place] [address] Comment NOT REPORTED Normal [facility] Comment on above: Performed By: #### TABATHA EDWARDSICAO ####[address] [place] [address] Urinalysis,Microon 8 ----- Normal [facility] Comment on above: Performed By: #### TABATHA EDWARDSICAO ####[address] [place] [address] Bacteria 1+ Abnormal NONE [facility] Comment on above: Performed By: #### TABATHA EDWARDSICAO ####[address] [place] [address] Epithelial cells 2 TO 5 Normal 0-25 [facility] Comment on above: Performed By: #### U AX, UMICAO ####[address] [place] [address] RBC Test strip #/vol (U) None Normal 0-2 [facility] Comment on above: Performed By: #### U AX, UMICAO ####[address] [place] [address] Urine WBC's 0 TO 2 Normal 0-5 [facility] Comment on above: Performed By: #### U AX, UMICAO ####[address] [place] [address] Amorphous Sediment NOT REPORTED Normal NONE [facility] Comment on above: Performed By: #### U AX, UMICAO ####[address] [place] [address] Casts NOT REPORTED Normal [facility] Comment on above: Performed By: #### U AX, UMICAO ####[address] [place] [address] Crystals NOT REPORTED Normal NONE [facility] Comment on above: Performed By: #### U AX, UMICAO ####[address] [place] [address] Epithelial, Renal NOT REPORTED Normal 0 [facility] Comment on above: Performed By: #### U AX, UMICAO ####[address] [place] [address] Mucus Strands NOT REPORTED Normal NONE [facility] Comment on above: Performed By: #### U AX, UMICAO ####[address] [place] [address] Other Observations NOT REPORTED [facility] Comment on above: Performed By: #### U AX, UMICAO ####[facility] [place] [address] Trichomonas NOT REPORTED Normal NONE [facility] Comment on above: Performed By: #### U CADEN CULVER ####[facility] [place] [address] Yeast NOT REPORTED Normal NONE [facility] Comment on above: Performed By: #### U CADEN CULVER ####[address] [place] [address] XR LUMBAR SPINE (2-3 VIEWS)o n [...] by:RIVER Jassoigned by:Phil Messer MD04/20/18Final result Normal [facility] Otheron 03-08-2018 Negative [employer] Otheron 02-03-2018 Negative [employer] Otheron 01-30-2018 Negative [employer] Cardiacon 12-28-2017 Cholesterol [Mass/Vol] 156.0 mg/dL 0-200 [employer] Cholesterol in HDL [Mass/Vol] 54.0 mg/dL 50-100 [employer] Cholesterol in LDL [Mass/Vol] 79.0 mg/dL 0-130 [employer] Triglyceride [Mass/Vol] 116.0 mg/dL 30-150 [employer] Metabolic Panelon 12-28-2017 Albumin [Mass/Vol] 4.70 g/dL 3.7-4.5 [employer] ALP [Catalytic activity/Vol] 83.0 U/L 31-155 [employer] ALT [Catalytic activity/Vol] 15.0 U/L 0-50 [employer] AST [Catalytic activity/Vol] 19.0 U/L 0-40 [employer] Bilirubin [Mass/Vol] 0.70 mg/dL 0.0-1.0 [facility] Protein [Mass/Vol] 7.80 g/dL 6.3-7.9 [employer] Otheron 12-28-2017 Albumin/Globulin [Mass ratio] 1.5 {ratio} 1.0-2.4 [employer] Cholesterol in VLDL [Mass/Vol] 23.0 mg/dL 0-39 [employer] Cholesterol.total/Cho lesterol in HDL [Mass ratio] 3 {ratio} [employer] Negative [employer] CBCon 07-28-2017 Erythrocyte distribution width Auto Ratio (RBC) 11.8 % Normal 11.8-14.4 [facility] Comment on above: Performed By: #### C SEN, CP ####[address] [place] [address] Hematocrit Auto Volume Fraction (Bld) 41.2 % Normal 36.3-47.[address] [facility] Comment on above: Performed By: #### C SEN, CP ####[address] [place] [address] Hemoglobin mass conc (Bld) 14.1 g/dL Normal 11.9-15.1 [facility] Comment on above: Performed By: #### C BC, CP ####[address] [place] [address] MCH Auto Entitic mass (RBC) 28.5 pg Normal 25.2-33.5 [facility] Comment on above: Performed By: #### C BC, CP ####[address] [place] [address] MCHC Auto mass conc (RBC) 34.2 g/dL Normal 28.4-34.8 [facility] Comment on above: Performed By: #### C BC, CP ####[address] [place] [address] MCV Auto Entitic volume (RBC) 83.2 fL Normal 82.6-102.9 [facility] Comment on above: Performed By: #### C BC, CP ####[address] [place] [address] NRBC Automated 0.0 per 100 WBC Normal 0.0 [facility] Comment on above: Result Comment: Perf ormed at [address] [place] [address] Performed By: #### C BC, CP ####[address] [place] [address] Platelet mean volume Auto Entitic volume (Bld) 9.9 fL Normal 8.1-13.5 [facility] Comment on above: Performed By: #### C BC, CP ####[address] [place] [address] Platelets Auto #/vol (Bld) 230 10*3/uL Normal 138-453 [facility] Comment on above: Performed By: #### C BC, CP ####[address] [place] [address] RBC Auto #/vol (Bld) 4.95 10*6/uL Normal 3.95-5.11 [facility] Comment on above: Performed By: #### Debora CHATTERJEE, CP ####[address] [place] [address] WBC Auto #/vol (Bld) 11.8 10*3/uL Normal 4.5-13.5 [facility] Comment on above: Performed By: #### Debora CHATTERJEE, CP ####[address] [place] [address] Comp Metabolic Profon 2017 (cont.) Normal [facility] Comment on above: Result Comment: Aver age GFR for 20-29 years old: 116 mL/min/1.73sq mChronic Kidney Disease: <60 mL/min/1.73sq mKidney failure: <15 mL/min/1.73sq meGFR calculated using average adult body mass. Additional eGFR calculator available at:http://www.NodePing.Trunity/multiple_crcl_2012.htm Performed By: #### C SEN, CP ####[address] [place] [address] Albumin mass conc 4.5 g/dL Normal 3.5-5.2 [facility] Comment on above: Performed By: #### Debora CHATTERJEE, CP ####[address] [place] [address] Albumin/Globulin mass ratio 1.3 {ratio} Normal 1.0-2.5 [facility] Comment on above: Performed By: #### Debora CHATTERJEE, CP ####[address] [place] [address] Alkaline Phos 81 U/L Normal 35-104 [facility] Comment on above: Performed By: #### C SEN, CP ####[address] [place] [address] ALT enzyme act/vol 23 U/L Normal 5-33 [facility] Comment on above: Performed By: #### C BC, CP ####[address] [place] [address] Anion gap 3 molar conc 13 mmol/L Normal 9-17 [facility] Comment on above: Performed By: #### C BC, CP ####[address] [place] [address] AST enzyme act/vol 23 U/L Normal <32 [facility] Comment on above: Performed By: #### C BC, CP ####[address] [place] [address] Bilirubin Ql (U) 0.23 mg/dL Low 0.3-1.2 [facility] Comment on above: Performed By: #### C BC, CP ####[address] [place] [address] BUN/CRE Ratio 17 Normal 9-20 [facility] Comment on above: Performed By: #### C BC, CP ####[address] [place] [address] Calcium mass conc 9.5 mg/dL Normal 8.6-10.4 [facility] Comment on above: Performed By: #### C BC, CP ####[address] [place] [address] Chloride molar conc 101 mmol/L Normal 98-107 [facility] Comment on above: Performed By: #### C BC, CP ####[address] [place] [address] CO2 molar conc 23 mmol/L Normal 20-[address] [facility] Comment on above: Performed By: #### C BC, CP ####[address] [place] [address] Creatinine mass conc 0.69 mg/dL Normal 0.50-0.90 [facility] Comment on above: Performed By: #### C BC, CP ####[address] [place] [address] GFR, Amer >60 Normal >60 [facility] Comment on above: Performed By: #### C BC, CP ####[address] [place] [address] GFR,non Amer >60 Normal >60 [facility] Comment on above: Performed By: #### C BC, CP ####[address] [place] [address] Glucose mass conc 99 mg/dL Normal 70-99 [facility] Comment on above: Performed By: #### C BC, CP ####[address] [place] [address] Potassium molar conc 3.8 mmol/L Normal 3.7-5.3 [facility] Comment on above: Performed By: #### C BC, CP ####[address] [place] [address] Protein mass conc 8.0 g/dL Normal 6.4-8.3 [facility] Comment on above: Performed By: #### C BC, CP ####[address] [place] [address] Sodium molar conc 137 mmol/L Normal 135-144 [facility] Comment on above: Performed By: #### C BC, CP ####[address] [place] [address] Staging: Normal [facility] Comment on above: Result Comment: Stag e 1: Some kidney damage normal GFRStage 2: Mild kidney damage GFR 60-89Stage 3: Moderate kidney damage GFR 30-59Stage 4: Severe kidney damage GFR 15-29Stage 5: Severe kidney damage GFR <15ESRD - chronic treatment by dialysis or transplantPerformed at [address] [place] [address] Performed By: #### C BC, CP ####[address] , [place] [phone] [phone] nitrogen mass conc 12 mg/dL Normal 6-20 [facility] Comment on above: Performed By: #### C BC, CP ####[address] [place] [address] HCG, ,Urineon 07-28 HCG.beta subunit ( test) Ql (U) Negative Normal NEG [facility] Comment on above: Result Comment: Spec imens with hCG levels near the threshold of the test (25 mIU/mL) may give a negative or indeterminate result. In such cases, another test should be performed with a new specimen in 48-72 hours. If early is suspected clinically in this setting, correlation with quantitative serum b-hCG level is suggested.[facility] has confirmed the use of plasma for this test. This has not been cleared or approved by the U.S. Food and Drug Administration. The FDA has determined that such clearance is not necessary.Performed at [address] [place], [place] [id number] [phone] Performed By: #### U HCG, UA ####[address] [place] [address] Urinalysis, Routineon 2017 Acetoacetic Acid,Ur Negative Normal NEG [facility] Comment on above: Performed By: #### U HCG, UA ####[address] [place] [address] Bilirubin, SemiQt,Ur Negative Normal NEG [facility] Comment on above: Performed By: #### U HCG, UA ####[address] [place] [address] Color YELLOW Normal YEL [facility] Comment on above: Performed By: #### U HCG, UA ####[address] [place] [address] Glucose,Semi-qnt,Ur Negative Normal NEG [facility] Comment on above: Performed By: #### U HCG, UA ####[address] [place] [address] Hemoglobin, Ur Negative Normal NEG [facility] Comment on above: Performed By: #### U HCG, UA ####[address] [place] [address] Leuckocyte Esterase Negative Normal NEG [facility] Comment on above: Result Comment: Perf ormed at [address] [place] [address] Performed By: #### U HCG, UA ####[address] [place] [address] Nitrite,Ur Negative Normal NEG [facility] Comment on above: Performed By: #### U HCG, UA ####[address] [place] [address] PH,Ur 6.0 Normal 5.0-9.0 [facility] Comment on above: Performed By: #### U HCG, UA ####[address] [place] [address] Protein mass conc Negative Normal NEG [facility] Comment on above: Performed By: #### U HCG, UA ####[address] [place] [address] Spec. [place],Ur 1.025 High 1.010-1.020 [facility] Comment on above: Performed By: #### U HCG, UA ####[address] [place] [address] Turbidity CLEAR Normal CLEAR [facility] Comment on above: Performed By: #### U HCG, UA ####[address] [place] [address] Urobilinogen,Ur Normal Normal NORM [facility] Comment on above: Performed By: #### U HCG, UA ####[address] [place] [address] Comment NOT REPORTED Normal [facility] Comment on above: Performed By: #### U HCG, UA ####[facility] [place] [address] [facility] 9804 Cholesterol mass conc 175.0 mg/dL 0-200 [employer] Triglyceride mass conc 58.0 mg/dL 30-150 [employer] Hematologyon 0063 Basophils #/vol (Bld) 0.0 10*3/uL 0.0-0.1 [employer] Basophils/100 WBC (Bld) 0.30 % 0.0-1.0 [employer] Eosinophils #/vol (Bld) 0.10 10*3/uL 0.0-0.5 [employer] Eosinophils/100 WBC (Bld) 1.80 % 0.0-7.0 [employer] Hematocrit Volume Fraction (Bld) 40.50 % 35.7-47.1 [employer] Hemoglobin mass conc (Bld) 13.60 g/dL 11.9-15.7 [employer] Lymphocytes #/vol (Bld) 3.40 10*3/uL 0.9-3.1 [employer] Lymphocytes/100 WBC (Bld) 41.0 % 28.0-42.0 [employer] MCH Entitic mass (RBC) 29.60 pg 23.2-33.[address] [facility] [employer] MCV Entitic volume (RBC) 88.40 fL 82.0-98.[address] [facility] [employer] [facility] Monocytes #/vol (Bld) 0.60 10*3/uL 0.3-1.0 B [facility] [employer] [facility] Monocytes/100 WBC (Bld) 7.40 % 4.0-12.[address] [facility] [employer] [facility] Neutrophils #/vol (Bld) 4.20 10*3/uL 1.8-7.[address] [facility] [employer] Neutrophils/100 WBC (Bld) 49.50 % 45.6-68.[address] [facility] [employer] Platelets #/vol (Bld) 225.0 10*3/uL 150-[address] [facility] [employer] [facility] RBC #/vol (Bld) 4.580 10*6/uL 3.72-5.[address] [facility] [employer] WBC #/vol (Bld) 8.30 10*3/uL 3.9-10.3 [facility] [employer] Metabolic Panelon 06-07-2016 Albumin mass conc 4.40 g/dL 3.7-4.5 [facility] [employer] ALP enzyme act/vol 77.0 U/L 31-[address] [facility] [employer] ALT enzyme act/vol 17.0 U/L 0-50 [facility] [employer] [place] AST enzyme act/vol 21.0 U/L 0-40 [facility] [employer] [place] Bilirubin mass conc 0.40 mg/dL 0.0-1.0 [facility] [employer] Protein mass conc 7.40 g/dL 6.3-7.9 [facility] [employer] Otheron 06-07-2016 Albumin/Globulin mass ratio 1.5 {ratio} 1.0-2.[address] [facility] [employer] Erythrocyte distribution width Ratio (RBC) 11.80 % 11.5-15.[address] [facility] [employer] MCHC mass conc (RBC) 33.50 g/dL 32.0-36.0 [facility] [employer] Platelet mean volume Entitic volume (Bld) 9.0 fL 7.4-10.4 [place] [employer] Negative [place] [employer] [place] Otheron 04-23-2016 Negative [place] [employer] [place] Otheron 03-19-2016 Negative [place] [employer] [place] Cardiacon 02-12-2016 Cholesterol mass conc 175.0 mg/dL 0-200 [facility] [employer] Triglyceride mass conc 59.0 mg/dL 30-150 [place] [employer] [place] Hematologyon 02-12-2016 Basophils #/vol (Bld) 0.10 10*3/uL 0.0-0.1 [facility] [employer] [place] Basophils/100 WBC (Bld) 0.90 % 0.0-1.0 [place] [employer] [place] Eosinophils #/vol (Bld) 0.10 10*3/uL 0.0-0.5 [place] [employer] [place] Eosinophils/100 WBC (Bld) 1.70 % 0.0-7.0 [place] [employer] [place] Hematocrit Volume Fraction (Bld) 41.60 % 35.7-47.1 [facility] Hemoglobin mass conc (Bld) 14.0 g/dL 11.9-15.7 [facility] Lymphocytes #/vol (Bld) 2.30 10*3/uL 0.9-3.1 [facility] Lymphocytes/100 WBC (Bld) 36.10 % 28.0-42.0 [facility] MCH Entitic mass (RBC) 29.40 pg 23.2-33.3 [facility] MCV Entitic volume (RBC) 87.60 fL 82.0-98.4 [facility] Monocytes #/vol (Bld) 0.50 10*3/uL 0.3-1.0 B [facility] Monocytes/100 WBC (Bld) 7.20 % 4.0-12.0 [facility] Neutrophils #/vol (Bld) 3.30 10*3/uL 1.8-7.9 [facility] Neutrophils/100 WBC (Bld) 54.10 % 45.6-68.4 [facility] Platelets #/vol (Bld) 180.0 10*3/uL 150-400 [facility] RBC #/vol (Bld) 4.750 10*6/uL 3.72-5.24 [facility] WBC #/vol (Bld) 6.30 10*3/uL 3.9-10.3 [facility] [employer] [facility] Metabolic Panelon 02-12-2016 Albumin mass conc 4.50 g/dL 3.7-4.5 [facility] [employer] [place] ALP enzyme act/vol 79.0 U/L 31-[address] [facility] ALT enzyme act/vol 21.0 U/L 0-[address] [facility] AST enzyme act/vol 22.0 U/L 0-[address] [facility] [employer] [facility] Bilirubin mass conc 0.40 mg/dL 0.0-1.0 [facility] [employer] [place] Protein mass conc 7.0 g/dL 6.3-7.9 [facility] [employer] [place] Otheron 02-12-2016 Albumin/Globulin mass ratio 1.8 {ratio} 1.0-2.4 [place] [employer] [facility] Erythrocyte distribution width Ratio (RBC) 12.10 % 11.5-15.5 [place] [employer] [facility] MCHC mass conc (RBC) 33.60 g/dL 32.0-36.0 [facility] [employer] Platelet mean volume Entitic volume (Bld) 9.70 fL 7.4-10.4 [place] [employer] [facility] Negative [place] [employer] [place] Vital Signs Date Time Vital Sign Value Performing Clinician Facility 10-02-2024 09:28-0400 Body mass index (BMI) [Ratio] 26.79 kg/m2 Cheryl MARIE Work Phone: [facility] 10-02-2024 09:28-0400 Body weight 64.32 kg Cheryl MARIE Work Phone: [facility] 10-02-2024 09:28-0400 Diastolic blood pressure 64 mm[Hg] Cheryl MARIE Work Phone: [facility] 10-02-2024 09:28-0400 Systolic blood pressure 102 mm[Hg] Cheryl MARIE Work Phone: [facility] 09-13-2024 11:01-0400 Body mass index (BMI) [Ratio] 26.07 kg/m2 Eleazar Vijaya DO Work Phone: [facility] 09-13-2024 11:01-0400 Body weight 62.6 kg Eleazar Vijaya DO Work Phone: [facility] 09-13-2024 11:01-0400 Diastolic blood pressure 56 mm[Hg] Eleazar Vijaya DO Work Phone: [facility] 09-13-2024 11:01-0400 Systolic blood pressure 100 mm[Hg] Eleazar Vijaya DO Work Phone: [facility] 08-20-2024 09:57-0400 Body mass index (BMI) [Ratio] 25.32 kg/m2 Eleazar Vijaya DO Work Phone: [facility] 08-20-2024 09:57-0400 Body weight 60.78 kg Eleazar Vijaya DO Work Phone: [facility] 08-20-2024 09:57-0400 Diastolic blood pressure 70 mm[Hg] Eleazar Vijaya DO Work Phone: [facility] 08-20-2024 09:57-0400 Systolic blood pressure 110 mm[Hg] Eleazar Vijaya DO Work Phone: [facility] 07-23-2024 09:44-0400 Body mass index (BMI) [Ratio] 24.53 kg/m2 Cheryl MARIE Work Phone: [facility] 07-23-2024 09:44-0400 Body weight 58.88 kg Cheryl MARIE Work Phone: [facility] 07-23-2024 09:44-0400 Diastolic blood pressure 66 mm[Hg] Cheryl MARIE Work Phone: [facility] 07-23-2024 09:44-0400 Systolic blood pressure 102 mm[Hg] Cheryl Check PA Work Phone: [facility] 06-26-2024 08:38-0500 Body mass index (BMI) [Ratio] 23.96 kg/m2 Eleazar Vijaya DO Work Phone: [facility] 06-26-2024 08:38-0500 Body weight 57.52 kg Eleazar Vijaya DO Work Phone: [facility] 06-26-2024 08:38-0500 Diastolic blood pressure 58 mm[Hg] Eleazar Vijaya DO Work Phone: [facility] 06-26-2024 08:38-0500 Systolic blood pressure 100 mm[Hg] Eleazar Vijaya DO Work Phone: [facility] 05-28-2024 13:28-0500 Body mass index (BMI) [Ratio] 22.58 kg/m2 Cheryl Baugh PA Work Phone: [facility] 05-28-2024 13:28-0500 Body weight 54.2 kg Cheryl Check PA Work Phone: [facility] 05-28-2024 13:28-0500 Diastolic blood pressure 60 mm[Hg] Cheryl Check PA Work Phone: [facility] 05-28-2024 13:28-0500 Systolic blood pressure 102 mm[Hg] Cheryl Check PA Work Phone: [facility] 05-18-2024 10:28-0500 Body height 154.94 cm [facility] 05-18-2024 10:28-0500 Body mass index (BMI) [Ratio] 21.8 kg/m2 [facility] 05-18-2024 10:28-0500 Body temperature 98 [degF] [facility] 05-18-2024 10:28-0500 Body weight 52.33 kg [facility] 05-18-2024 10:28-0500 Diastolic blood pressure 66 mm[Hg] [facility] 05-18-2024 10:28-0500 Heart rate 89 /min [facility] 05-18-2024 10:28-0500 SaO2% (BldA) [Mass fraction] 99 % [facility] 05-18-2024 10:28-0500 Systolic blood pressure 104 mm[Hg] [facility] 04-30-2024 10:13-0500 Body mass index (BMI) [Ratio] 21.73 kg/m2 Eleazar Vijaya DO Work Phone: [facility] 04-30-2024 10:13-0500 Body weight 52.16 kg Eleazar Vijaya DO Work Phone: [facility] 04-30-2024 10:13-0500 Diastolic blood pressure 64 mm[Hg] Eleazar Vijaya DO Work Phone: [facility] 04-30-2024 10:13-0500 Systolic blood pressure 106 mm[Hg] Eleazar Vijaya DO Work Phone: [facility] 03-23-2024 10:10-0500 Body mass index (BMI) [Ratio] 20.86 kg/m2 [facility] 03-23-2024 10:10-0500 Body weight 50.08 kg [facility] Nurse [facility] 03-23-2024 10:10-0500 Diastolic blood pressure 60 mm[Hg] [facility] Nurse [facility] 03-23-2024 10:10-0500 Systolic blood pressure 110 mm[Hg] [facility] Nurse [facility] 03-14-2024 13:53-0500 Body mass index (BMI) [Ratio] 20.6 kg/m2 Eleazar Vijaya DO Work Phone: [facility] 03-14-2024 13:53-0500 Body weight 49.44 kg Eleazar Vijaya DO Work Phone: [facility] 03-14-2024 13:53-0500 Diastolic blood pressure 72 mm[Hg] Eleazar Vijaya DO Work Phone: [facility] 03-14-2024 13:53-0500 Systolic blood pressure 110 mm[Hg] Eleazar Vijaya DO Work Phone: [facility] 02-08-2024 13:21-0400 Body height 154.9 cm Eleazar Vijaya DO Work Phone: [facility] 02-08-2024 13:21-0400 Body mass index (BMI) [Ratio] 23.05 kg/m2 Eleazar Vijaya DO Work Phone: [facility] 02-08-2024 13:21-0400 Body weight 55.34 kg Eleazar Vijaya DO Work Phone: [facility] 02-08-2024 13:21-0400 Diastolic blood pressure 64 mm[Hg] Eleazar Vijaya DO Work Phone: [facility] 02-08-2024 13:21-0400 Systolic blood pressure 102 mm[Hg] Eleazar Vijaya DO Work Phone: [facility] 02-02-2024 12:39-0400 Body height 154.94 cm [facility] 02-02-2024 12:39-0400 Body mass index (BMI) [Ratio] 22.4 kg/m2 [facility] 02-02-2024 12:39-0400 Body temperature 98.3 [degF] [facility] 02-02-2024 12:39-0400 Body weight 54 kg [facility] 02-02-2024 12:39-0400 Diastolic blood pressure 64 mm[Hg] [facility] 02-02-2024 12:39-0400 Heart rate 82 /min [facility] 02-02-2024 12:39-0400 Respiratory rate 16 /min [facility] 02-02-2024 12:39-0400 SaO2% (BldA) [Mass fraction] 98 % [facility] 02-02-2024 12:39-0400 Systolic blood pressure 108 mm[Hg] [facility] 01-24-2024 11:38-0400 Body height 154.94 cm [facility] 01-24-2024 11:38-0400 Body mass index (BMI) [Ratio] 22.6 kg/m2 [facility] 01-24-2024 11:38-0400 Body temperature 96.1 [degF] [facility] 01-24-2024 11:38-0400 Body weight 54.43 kg [facility] 01-24-2024 11:38-0400 Diastolic blood pressure 60 mm[Hg] [facility] 01-24-2024 11:38-0400 Heart rate 75 /min [facility] 01-24-2024 11:38-0400 SaO2% (BldA) [Mass fraction] 98 % [facility] 01-24-2024 11:38-0400 Systolic blood pressure 114 mm[Hg] [facility] 01-03-2024 11:26-0400 Body height 154.94 cm [facility] 01-03-2024 11:26-0400 Body mass index (BMI) [Ratio] 23.2 kg/m2 [facility] 01-03-2024 11:26-0400 Body temperature 97.8 [degF] [facility] 01-03-2024 11:26-0400 Body weight 55.79 kg [facility] 01-03-2024 11:26-0400 Diastolic blood pressure 68 mm[Hg] [facility] [place] 01-03-2024 11:26-0400 Heart rate 90 /min [facility] 01-03-2024 11:26-0400 SaO2% (BldA) [Mass fraction] 98 % [facility] [place] 01-03-2024 11:26-0400 Systolic blood pressure 110 mm[Hg] [facility] [place] 07-21-2023 10:20-0400 Body height 154.94 cm [facility] 07-21-2023 10:20-0400 Body mass index (BMI) [Ratio] 27.8 kg/m2 [facility] [place] 07-21-2023 10:20-0400 Body weight 66.67 kg [facility] 07-21-2023 10:20-0400 Diastolic blood pressure 78 mm[Hg] [facility] [place] 07-21-2023 10:20-0400 Heart rate 61 /min [facility] 07-21-2023 10:20-0400 SaO2% (BldA) [Mass fraction] 99 % [facility] [place] 07-21-2023 10:20-0400 Systolic blood pressure 112 mm[Hg] [facility] [place] 03-26-2023 11:30-0500 Body height 154.94 cm Jodie Portillo Other [employer] Other 03-26-2023 11:30-0500 Body mass index (BMI) [Ratio] 27.96 kg/m2 Jodie Portillo Other [employer] Other 03-26-2023 11:30-0500 Body temperature 98.8 [degF] Jodie Portillo Other [employer] Other 03-26-2023 11:30-0500 Body weight 67.13 kg Jodie Portillo Other [employer] Other 03-26-2023 11:30-0500 Diastolic blood pressure 76 mm[Hg] Jodie Portillo Other [employer] Other 03-26-2023 11:30-0500 Respiratory rate 18 /min Jodie Portillo Other [employer] Other 03-26-2023 11:30-0500 SaO2% (BldA) [Mass fraction] 98 % Jodie Portillo Other [employer] Other 03-26-2023 11:30-0500 Systolic blood pressure 118 mm[Hg] Jodie Portillo Other [employer] Other 10-02-2022 12:25-0400 Body height 154.94 cm Deidra Jimenez Other [employer] Other 10-02-2022 12:25-0400 Body mass index (BMI) [Ratio] 27.43 kg/m2 Deidra Jimenez Other [employer] Other 10-02-2022 12:25-0400 Body temperature 97.7 [degF] Deidra Jimenez Other [employer] Other 10-02-2022 12:25-0400 Body weight 65.86 kg Deidra Jimenez Other [employer] Other 10-02-2022 12:25-0400 Respiratory rate 18 /min Deidra Jimenez Other [employer] Other 10-02-2022 12:25-0400 SaO2% (BldA) [Mass fraction] 97 % Deidra Jimenez Other [employer] Other 05-21-2019 10:42-0500 BMI (Body Mass Index) 23.41 kg/m2 Lyric [employer] 05-21-2019 10:42-0500 Body Temperature 98.8 [degF] Lyric Pérez Rene [facility] [employer] [facility] 05-21-2019 10:42-0500 Body weight 58.06 kg Lyric [employer] [facility] 05-21-2019 10:42-0500 BP Diastolic 68 mm[Hg] Lyric [employer] [facility] 05-21-2019 10:42-0500 BP Systolic 94 mm[Hg] Lyric [employer] [facility] 05-21-2019 10:42-0500 BSA (Body Surface Area) 1.59 m2 Lyric [employer] 05-21-2019 10:42-0500 Height 157.48 cm Lyric [employer] [facility] 05-21-2019 10:42-0500 Pulse (Heart Rate) 90 /min Lyric Beto Villarreal eusebio [employer] 05-11-2019 14:48-0500 BMI (Body Mass Index) 22.95 kg/m2 Hima Rene [employer] [place] 05-11-2019 14:48-0500 Body Temperature 98.8 [degF] [facility] [employer] 05-11-2019 14:48-0500 Body weight 56.93 kg Hima Clemente [employer] 05-11-2019 14:48-0500 BP Diastolic 66 mm[Hg] Hima Clemente [employer] 05-11-2019 14:48-0500 BP Systolic 110 mm[Hg] Hima Clemente [employer] 05-11-2019 14:48-0500 BSA (Body Surface Area) 1.58 m2 Hima Rene [employer] [place] 05-11-2019 14:48-0500 Height 157.48 cm Hima Clemente [employer] 05-11-2019 14:48-0500 Pulse (Heart Rate) 72 /min Hima Rene [facility] [employer] 04-27-2019 15:18-0500 BMI (Body Mass Index) 23.52 kg/m2 [employer] 04-27-2019 15:18-0500 Body Temperature 98.9 [degF] Lyric Rene Clemente [employer] 04-27-2019 15:18-0500 Body weight 56.47 kg Lyric Pérez [employer] 04-27-2019 15:18-0500 BP Diastolic 60 mm[Hg] Lyric Rene [employer] [place] 04-27-2019 15:18-0500 BP Systolic 112 mm[Hg] Lyric Rene [employer] [place] 04-27-2019 15:18-0500 BSA (Body Surface Area) 1.56 m2 Lyric Rene [employer] [place] 04-27-2019 15:18-0500 Height 154.94 cm Lyric [employer] 04-27-2019 15:18-0500 Pulse (Heart Rate) 80 /min Lyric Villarreal [employer] 04-09-2019 13:38-0500 BMI (Body Mass Index) 22.77 kg/m2 Lyric Pérez [employer] 04-09-2019 13:38-0500 Body Temperature 99.4 [degF] Lyric Rene Clemente [employer] 04-09-2019 13:38-0500 Body weight 54.66 kg Lyric [employer] 04-09-2019 13:38-0500 BP Diastolic 70 mm[Hg] [employer]ric [employer] 04-09-2019 13:38-0500 BP Systolic 120 mm[Hg] Lyric [employer] 04-09-2019 13:38-0500 BSA (Body Surface Area) 1.53 m2 Lyric Pérez [employer] 04-09-2019 13:38-0500 Height 154.94 cm [employer]ric [employer] 04-09-2019 13:38-0500 Pulse (Heart Rate) 82 /min Lyric Villarreal [employer] 02-06-2019 16:41-0400 BMI (Body Mass Index) 22.77 kg/m2 Lyric Pérez [employer] 02-06-2019 16:41-0400 Body Temperature 98.8 [degF] Lyric Rene [employer] 02-06-2019 16:41-0400 Body weight 54.66 kg Lyric [employer] 02-06-2019 16:41-0400 BP Diastolic 70 mm[Hg] Lyric Pérez [employer] 02-06-2019 16:41-0400 BP Systolic 112 mm[Hg] Lyric Pérez [employer] 02-06-2019 16:41-0400 BSA (Body Surface Area) 1.53 m2 Lyric Pérez [employer] 02-06-2019 16:41-0400 Height 154.94 cm Lyric [employer] 02-06-2019 16:41-0400 Pulse (Heart Rate) 72 /min Lyric [employer] 10-31-2018 16:58-0400 BMI (Body Mass Index) 23.43 kg/m2 Hima [employer] 10-31-2018 16:58-0400 Body weight 56.25 kg Hima Clemente [employer] 10-31-2018 16:58-0400 BP Diastolic 60 mm[Hg] Hima Rene Clemente [employer] 10-31-2018 16:58-0400 BP Systolic 112 mm[Hg] Hima Clemente [employer] 10-31-2018 16:58-0400 BSA (Body Surface Area) 1.56 m2 Hima Hardtner [employer] 10-31-2018 16:58-0400 Height 154.94 cm Hima Clemente [employer] 10-31-2018 16:58-0400 Pulse (Heart Rate) 72 /min Hima Cardoza [employer] 10-31-2018 16:58-0400 Weight 56.25 kg Hima Clemente [employer] 08-28-2018 15:49-0400 BMI (Body Mass Index) 22.67 kg/m2 Hima Rene [employer] [place] 08-28-2018 15:49-0400 Body Temperature 98.7 [degF] Hima Andrade [employer] 08-28-2018 15:49-0400 Body weight 54.43 kg Hima Clemente [employer] 08-28-2018 15:49-0400 BP Diastolic 60 mm[Hg] Hima Celmente [employer] 08-28-2018 15:49-0400 BP Systolic 120 mm[Hg] Hima Clemente [employer] 08-28-2018 15:49-0400 BSA (Body Surface Area) 1.53 m2 Hima Rene [employer] [place] 08-28-2018 15:49-0400 Height 154.94 cm Hima Clemente [employer] 08-28-2018 15:49-0400 Pulse (Heart Rate) 66 /min Hima Cardoza [employer] 08-28-2018 15:49-0400 Weight 54.43 kg Hima Clemente [employer] 02-09-2018 12:10-0400 BMI (Body Mass Index) 23.78 kg/m2 Hima Luna [employer] 02-09-2018 12:10-0400 Body Temperature 98.1 [degF] Hima chawla [employer] 02-09-2018 12:10-0400 Body weight 58.97 kg Hima Camacho [employer] 02-09-2018 12:10-0400 BP Diastolic 80 mm[Hg] Hima Clemente [employer] 02-09-2018 12:10-0400 BP Systolic 104 mm[Hg] Hima Clemente [employer] 02-09-2018 12:10-0400 BSA (Body Surface Area) 1.61 m2 Hima Rene [employer] [place] 02-09-2018 12:10-0400 Height 157.48 cm Hima Clemente [employer] 02-09-2018 12:10-0400 Pulse (Heart Rate) 64 /min Hima ma [employer] 02-09-2018 12:10-0400 Weight 58.97 kg Hima Camacho [employer] 01-11-2018 15:19-0400 BMI (Body Mass Index) 23.32 kg/m2 Hima Rene [employer] [place] 01-11-2018 15:19-0400 Body weight 57.83 kg Hima Clemente [employer] 01-11-2018 15:19-0400 BP Diastolic 68 mm[Hg] Hima Clemente [employer] 01-11-2018 15:19-0400 BP Systolic 106 mm[Hg] Hima Clemente [facility] 01-11-2018 15:19-0400 BSA (Body Surface Area) 1.59 m2 Hima Rene [employer] [place] 01-11-2018 15:19-0400 Height 157.48 cm Hima Rene [employer] 01-11-2018 15:19-0400 Pulse (Heart Rate) 76 /min Hima Rene [employer] 01-11-2018 15:19-0400 Weight 57.83 kg Hima Rene [employer] 08-01-2017 09:57-0400 BMI (Body Mass Index) 23.59 kg/m2 Hima Rene [employer] [place] 08-01-2017 09:57-0400 Body weight 58.51 kg Hima Rene [employer] 08-01-2017 09:57-0400 BP Diastolic 60 mm[Hg] Hima Rene [employer] 08-01-2017 09:57-0400 BP Systolic 94 mm[Hg] Hima Rene [employer] 08-01-2017 09:57-0400 BSA (Body Surface Area) 1.6 m2 Hima Rene [employer] [place] 08-01-2017 09:57-0400 Height 157.48 cm Hima Rene [employer] 08-01-2017 09:57-0400 Pulse (Heart Rate) 80 /min Hima Rene [employer] 08-01-2017 09:57-0400 Weight 58.51 kg Hima Rene [employer] 01-13-2017 12:02-0400 BMI (Body Mass Index) 22.59 kg/m2 Hima Rene [employer] [place] 01-13-2017 12:02-0400 Body weight 56.02 kg Hima Clemente [employer] 01-13-2017 12:02-0400 BP Diastolic 76 mm[Hg] Hima Clemente [employer] 01-13-2017 12:02-0400 BP Systolic 122 mm[Hg] Hima Clemente [employer] 01-13-2017 12:02-0400 BSA (Body Surface Area) 1.57 m2 Hima Rene [employer] [place] 01-13-2017 12:02-0400 Height 157.48 cm Hima Clemente [employer] 01-13-2017 12:02-0400 Pulse (Heart Rate) 72 /min Hima ma [employer] 01-13-2017 12:02-0400 Weight 56.02 kg Hima Clemente [employer] 10-29-2016 16:57-0400 BMI (Body Mass Index) 22.13 kg/m2 Hima Rene [employer] [place] 10-29-2016 16:57-0400 Body weight 54.89 kg Hima Clemente [employer] 10-29-2016 16:57-0400 BP Diastolic 60 mm[Hg] Hima Clemente [employer] 10-29-2016 16:57-0400 BP Systolic 104 mm[Hg] Hima Clemente [employer] 10-29-2016 16:57-0400 BSA (Body Surface Area) 1.55 m2 Hima Rene [employer] [place] 10-29-2016 16:57-0400 Height 157.48 cm Hima Clemente [employer] 10-29-2016 16:57-0400 Pulse (Heart Rate) 68 /min Hima Cardoza [employer] 10-29-2016 16:57-0400 Weight 54.89 kg Hima Clemente [employer] 01-28-2016 17:46-0400 BMI (Body Mass Index) 21.67 kg/m2 Hima Rene [employer] [place] 01-28-2016 17:46-0400 Body weight 53.75 kg Hima Clemente [employer] 01-28-2016 17:46-0400 BP Diastolic 64 mm[Hg] Hima Clemente [employer] 01-28-2016 17:46-0400 BP Systolic 94 mm[Hg] Hima Clemente [employer] 01-28-2016 17:46-0400 BSA (Body Surface Area) 1.53 m2 Hima Rene [employer] [place] 01-28-2016 17:46-0400 Height 157.48 cm Hima Clemente [employer] 01-28-2016 17:46-0400 Pulse (Heart Rate) 64 /min Hima Cardoza [employer] 01-28-2016 17:46-0400 Weight 53.75 kg Hima Clemente [employer] 05-30-2015 16:50-0500 BMI (Body Mass Index) 21.22 kg/m2 Hima Rene [employer] [place] 05-30-2015 16:50-0500 Body Temperature 98 [degF] Hima Andrade [employer] 05-30-2015 16:50-0500 Body weight 52.62 kg Hima Clemente [employer] 05-30-2015 16:50-0500 BP Diastolic 64 mm[Hg] Hima Clemente [employer] 05-30-2015 16:50-0500 BP Systolic 90 mm[Hg] Hima [facility] 05-30-2015 16:50-0500 BSA (Body Surface Area) 1.52 m2 Hima Rene [employer] [place] 05-30-2015 16:50-0500 Height 157.48 cm Hima Clemente [employer] 05-30-2015 16:50-0500 Pulse (Heart Rate) 92 /min Hima lowry [employer] 05-30-2015 16:50-0500 Weight 52.62 kg Hima Clemente [employer] 04-08-2015 16:01-0500 BMI (Body Mass Index) 21.28 kg/m2 Hima Rene [employer] [place] 04-08-2015 16:01-0500 Body Temperature 98.4 [degF] Hima Andrade [employer] 04-08-2015 16:01-0500 Body weight 51.94 kg Hima Clemente [employer] 04-08-2015 16:01-0500 BP Diastolic 84 mm[Hg] Hima Clemente [employer] 04-08-2015 16:01-0500 BP Systolic 118 mm[Hg] Hima Rene [employer] 04-08-2015 16:01-0500 BSA (Body Surface Area) 1.5 m2 Hima Rene [employer] [place] 04-08-2015 16:01-0500 Height 156.21 cm Hima Rene [employer] 04-08-2015 16:01-0500 Pulse (Heart Rate) 72 /min Hima Cardoza [employer] 04-08-2015 16:01-0500 Weight 51.94 kg Hima Rene [employer] Encounters Encounter Date Encounter Type Care Provider Facility Start: 10-02-2024 End: 10-02-2024 Bamboo flowsheet Cheryl MARIE Work Phone: [facility] Start: 10-02-2024 End: 10-02-2024 Bamboo flowsheet Cheryl MARIE Work Phone: [facility] Start: 10-02-2024 End: 10-02-2024 Clinisync Result Encounter Eleazar Vijaya DO Work Phone: [facility] External Department Unsolicited Start: 10-02-2024 End: 10-02-2024 Office outpatient visit 15 minutes Cheryl MARIE Work Phone: [facility] Comment on above: Third trimester preg chepe; 34 weeks gestation of ; BV (bacterial vaginosis) Start: 10-02-2024 End: 10-02-2024 ambulatory CHERYL BAUGH Not Available Start: 09-25-2024 End: 09-25-2024 Clinisync Result Encounter Eleazar Vijaya DO Work Phone: [facility] External Department Unsolicited Start: 09-25-2024 End: 09-25-2024 Clinisync Result Encounter Eleazar Vijaya DO Work Phone: [facility] External Department Unsolicited Start: 09-24-2024 End: 09-24-2024 Clinisync Result Encounter Gaye Gurpreet 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 Work Phone: [facility] External Department Unsolicited Start: 09-24-2024 End: 09-24-2024 Clinisync Result Encounter Gaye Gurpreet 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 Work Phone: [facility] External Department Unsolicited Start: 09-19-2024 End: 09-19-2024 Clinisync Result Encounter Gaye Gurpreet 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 Work Phone: [facility] External Department Unsolicited Start: 09-19-2024 End: 09-19-2024 Clinisync Result Encounter Gaye Gurpreet 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 Work Phone: [facility] External Department Unsolicited Start: [...] 06-23-2024 End: 06-23-2024 Clinisync Result Encounter Cheryl MARIE Work Phone: [facility] External Department Unsolicited Start: 06-23-2024 End: 06-23-2024 Clinisync Result Encounter Cheryl MARIE Work Phone: [facility] External Department Unsolicited Start: 05-28-2024 End: 05-28-2024 Bamboo flowsheet Cheryl MARIE Work Phone: [facility] Start: 05-28-2024 End: 06-01-2024 Bamboo flowsheet Cheryl MARIE Work Phone: [facility] [...] Not Available Start: 05-18-2024 End: 05-18-2024 ambulatory [facility] Work Phone: Start: 05-18-2024 End: 05-18-2024 Patient encounter procedure [facility] Work Phone: Start: 04-30-2024 End: 04-30-2024 Bamboo [...] 04-18-2024 End: 04-18-2024 ambulatory Susana Alonzo PA-C Facility:[facility] Start: 04-16-2024 End: 04-16-2024 Clinisync Result Encounter Eleazar Vijaya DO Work Phone: [facility] External Department Unsolicited Start: 04-16-2024 End: 04-16-2024 Clinisync Result Encounter Eleazar Vijaya DO Work Phone: [facility] External Department Unsolicited Start: 04-16-2024 Non-patient / Non-visit [facility] Work Phone: Start: 04-13-2024 End: [...] Not Available Start: 03-19-2024 Non-patient / Non-visit [facility] Work Phone: Start: 03-17-2024 Non-patient / Non-visit [facility] Work Phone: Start: 03-14-2024 End: [...] Department Unsolicited Start: 03-08-2024 Non-patient / Non-visit [facility] Work Phone: Start: 03-07-2024 End: 03-07-2024 ambulatory Ana Simmons APRN-GUTTER HANGER Facility:[facility] Start: 03-02-2024 Non-patient / Non-visit [facility] Work Phone: Start: 02-29-2024 Non-patient / Non-visit [facility] Work Phone: Start: 02-28-2024 Non-patient / Non-visit [facility] Work Phone: Start: 02-28-2024 End: 02-28-2024 Phys/qhp telephone evaluation 5-10 min Eleazar Vijaya DO Work Phone: [facility] Comment on above: Early stage of pregn ana Start: 02-27-2024 Non-patient / Non-visit 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 Phone: [facility] [place] Work Phone: Start: 02-02-2024 End: 02-02-2024 ambulatory Jodie Portillo [facility] Work Phone: Start: 02-02-2024 End: 02-02-2024 Patient encounter procedure [facility] Work Phone: Start: 01-24-2024 End: 01-24-2024 ambulatory [facility] Work Phone: Start: 01-24-2024 End: 01-24-2024 Patient encounter procedure [facility] Work Phone: Start: 01-24-2024 End: 01-24-[address] [facility] Facility:[facility] Start: 01-19-2024 Non-patient / Non-visit [facility] Physician [facility] [employer] Work Phone: Start: 01-03-2024 End: 01-03-2024 ambulatory [facility] Work Phone: Start: 01-03-2024 End: 01-03-2024 Patient encounter procedure [facility] Work Phone: Start: 08-10-2023 End: 08-10-2023 ambulatory Ana Maryse Troy [employer] 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-[employer]UTTER HANGER Facility:[facility] Start: 07-21-2023 End: 07-21-2023 ambulatory [facility] Work Phone: Start: 07-21-2023 End: 07-21-2023 Patient encounter procedure [facility] Work Phone: Start: 06-28-2023 ambulatory Amara Cheung PA-C Facility:[facility] Start: 06-27-2023 End: 06-27-2023 ambulatory Susana Alonzo PA-C Facility:[facility] Start: 06-22-2023 End: 06-22-2023 ambulatory Ana Maryse Troy [employer] 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-[employer] HANGER Facility:[facility] Start: 03-26-2023 End: 03-26-2023 ambulatory Jodie Portillo Other [employer] Other Start: 03-26-2023 Office outpatient vi sit 15 minutes Jodie Portillo [facility] Start: 10-02-2022 End: 10-02-2022 ambulatory Deidra Jimenez Other [employer] Other Start: 10-02-2022 Office outpatient ne w 20 minutes Deidrajoslyn Jimenez [facility] Start: 05-21-2019 Office outpatient vi sit 15 minutes Lyric Pérez Other [facility] Start: 05-11-2019 [facility] Other [facility] Start: 05-11-2019 Office outpatient vi sit 15 minutes Lyric Pérez Other [facility] Start: 04-27-2019 Office outpatient vi sit 15 minutes Lyric Pérez Other [facility] Start: 04-09-2019 Office outpatient vi sit 15 minutes Lyric Pérez Other [facility] Start: 02-06-2019 Office outpatient vi sit 15 minutes Lyric Pérez Other [facility] Start: 10-31-2018 Routine general medi brad examination at a [facility] facility [facility] [employer] Start: 10-31-2018 [facility] Other [facility] Start: 10-31-2018 Office outpatient vi sit 15 minutes Cheryl Dobbins Other [facility] Start: 08-28-2018 [facility] Other [facility] Start: 08-28-2018 Office outpatient vi sit 15 minutes Cheryl Dobbins Other [facility] Start: 04-20-2018 End: 04-20-2018 Emergency department patient visit [facility] Start: 03-08-2018 Lab Enrique sy Other [facility] Office Start: 03-08-2018 Office outpatient vi sit 15 minutes Vinita Ordonez Other [facility] Start: 02-09-2018 Office outpatient vi sit 15 minutes Lyric éPrez Other [facility] Start: 02-03-2018 End: 02-03-2018 Lab Enrique Ordonez Other [facility] Start: 01-30-2018 Lab Enrique sy Other [facility] Start: 01-30-2018 Office outpatient vi sit 15 minutes Vinita José Luis Other [facility] Start: 01-11-2018 Office outpatient vi sit 15 minutes Lyric Pérez Other [facility] Start: 12-28-2017 Office outpatient vi sit 15 minutes Vinita José Luis Other [facility] Start: 12-28-2017 Lab Enrique Tyler sy Other [facility] Start: 08-01-2017 Office outpatient vi sit 25 minutes Lyric Pérez Other [facility] Start: 07-28-2017 End: 07-28-2017 Emergency department patient visit TALON Nixon [facility] Start: 01-13-2017 Office outpatient vi sit 15 minutes Rachel Ly Other [facility] Start: 10-29-2016 Office outpatient vi sit 15 minutes Rachel Ly Other [facility] Start: 06-07-2016 Office outpatient vi sit 15 minutes Enrique José Luis Other [facility] Start: 04-23-2016 Office outpatient vi sit 15 minutes Enrique José Luis Other [facility] Start: 03-19-2016 Office outpatient vi sit 15 minutes Enrique José Luis Other [facility] Start: 02-12-2016 Office outpatient ne w 20 minutes Enrique José Luis Other [facility] Start: 01-28-2016 Office outpatient vi sit 15 minutes Lyric Pérez Other [facility] Start: 05-30-2015 Office outpatient vi sit 15 minutes Lyric Pérez Other [facility] Start: 04-08-2015 Office outpatient ne w 20 minutes Lyric Pérez Other [facility] Procedures Date Procedure Procedure Detail Performing Clinician Start: 10-02-2024 US OB BPP W NON-STRESS Eleazar Vijaya DO Work Phone: Start: 09-25-2024 US OB BPP W NON-STRESS Eleazar Vijaya DO Work Phone: Start: 09-24-2024 ALL CBC WITH AUTO DIFF Gaye Vázquez 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 Work Phone: Start: 09-19-2024 [facility] CMP (CMP) (FOR R EMOTE [facility] USE) Gaye Vázquez 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 Work Phone: Start: 09-18-2024 US OB GROWTH Eleazar Fazi o DO Work Phone: Start: 09-13-2024 Urnls dip stick/tabl et rgnt non-auto w/o micrscp Eleazar Vijaya DO Work Phone: Start: 08-20-2024 ALL CBC WITH AUTO DIFF Gaye Vázquez 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 Work Phone: Start: 08-20-2024 Urnls dip stick/tabl et rgnt non-auto w/o micrscp Eleazar Vijaya DO Work Phone: Start: 07-23-2024 Urnls dip [...] [facility] Start: 05-11-2019 EBV Complete Series [place] adalgisa Pérez Start: 04-27-2019 Doc meds verified [...] stick/tabl et rgnt auto w/o microscopy [facility] Hardtner Start: 04-20-2018 Radex spine lumbosac ral 2/3 views TALON CARONE Start: 04-20-2018 Basic metabolic pane l calcium total TALON CARONE Start: 04-20-2018 Blood count complete automated TALON CARONE Start: 04-20-2018 Microscopic urinalysis TALON CARONE Start: 04-20-2018 Urine test visual color cmprsn meths TALON CARONE Start: 04-20-2018 URINE RT REFLEX TO CULTURE TALON CARONE Start: 03-08-2018 Doc meds verified w/ pt or re [facility] Hardtner Start: 03-08-2018 Urine test visual color cmprsn meths [facility] Start: 02-09-2018 Doc meds verified w/ pt or re [facility] Start: 02-03-2018 Urine test visual color cmprsn meths [facility]ne Start: 01-30-2018 Doc meds verified w/ pt or re [facility] Hardtner Start: 01-30-2018 Urine test visual color cmprsn meths [facility] Start: 01-11-2018 Doc meds verified w/ pt or re [facility] Start: 12-28-2017 Doc meds verified w/ pt or re [facility] Start: 12-28-2017 Gonadotropin chorion ic qualitative [facility] Start: 12-28-2017 Hepatic function panel [facility] Start: 12-28-2017 Lipid panel Hima Ri cketts [...] Urine test visual color cmprsn meths [facility] Start: 02-12-2016 Assay of triglycerides [facility] Start: 02-12-2016 Blood count complete auto&auto difrntl [...] AM EDT Routine [facility] [address] [place] [address] Eleazar Lilly DO [address], [place] [address] [facility] Start: 10-02-2024 End: 10-02-2024 Patient encounter procedure [facility] Comment on above: Arrived Start: 09-27-2024 End: 09-27-2024 Patient encounter procedure 09/27/2024 8:30 AM EDT Routine [facility] [address] [facility] [place] [address] Cheryl Baugh PA [address] [facility] [address] [place], [facility] [address] [facility] Start: 09-13-2024 End: 01-14-2025 US for US OB follow up transabdominal approach Imaging Routine size inconsistent with dates Expected: 09/13/2024, Expires: 01/14/2025 [facility] Work Phone: Comment on above: Expected: 09/13/2024 , Expires: 01/14/2025 Start: 09-13-2024 End: 09-13-2024 Patient encounter procedure 09/13/2024 10:30 AM EDT Routine [facility] [address] [place] [address] Eleazar Lilly, DO [address] [facility] [place] [address] Arrived [facility] Comment on above: Arrived Start: 09-10-2024 End: 09-10-2024 Patient encounter procedure 09/10/2024 10:40 AM EDT Routine [facility] [address] [facility] [phone] Eleazar Lilly, DO [address] [facility] [place] [address] [facility] Start: 08-20-2024 End: 08-20-2024 Patient encounter procedure [facility] Comment on above: Arrived Start: 07-23-2024 End: 07-23-2025 CBC panel - Blood by Automated count CBC Lab Routine Diabetes mellitus screening Expected: 07/23/2024 (Approximate), Expires: 07/23/2025 [facility] Work Phone: Comment on above: Expected: 07/23/2024 (Approximate), Expires: 07/23/2025 Start: 07-23-2024 End: 07-23-2025 Measurement of glucose 1 hour after glucose challenge for glucose tolerance test Glucose tolerance, 1 hour Lab Routine Diabetes mellitus screening Expected: 07/23/2024 (Approximate), Expires: 07/23/2025 [facility] Comment on above: Expected: 07/23/2024 (Approximate), Expires: 07/23/2025 Start: 07-23-2024 End: 07-23-2024 Patient encounter procedure 07/23/2024 10:20 AM EDT Routine [facility] [address] [facility] [phone] Cheryl Baugh PA [address] [facility] [place] [address] [facility] Start: 07-23-2024 End: 07-23-2024 Professional / ancillary services management 07/23/2024 9:00 AM EDT Ancillary Procedure [facility] [address] [facility] [phone] [facility] Start: 06-26-2024 End: 06-26-2025 [...] for anatomic survey Expected: 05/28/2024, Expires: 05/28/2025 [facility] Work Phone: Comment on above: Expected: 05/28/2024 , Expires: 05/28/2025 Start: 05-28-2024 End: 05-28-2024 Patient encounter procedure 05/28/2024 1:10 PM EST Routine [facility] [address] [facility] [place] [phone] Cheryl Baugh PA [address] [facility] [place] [address] Arrived [facility] Comment on above: Arrived Start: 04-30-2024 End: 04-30-2024 Patient encounter procedure 04/30/2024 10:10 AM EST Routine [facility] [address] [facility] [place] [phone] Eleazar Lilly, DO [address] [place] [address] 12 weeks gestation of ; Second trimester [facility] Comment on above: 12 weeks gestation o f ; Second trimester Start: 04-23-2024 End: 04-23-2024 Patient encounter procedure 04/23/2024 10:50 AM EST Routine [facility] [address] [facility] [phone] Eleazar Lilly, [address] [place] [address] [facility] Start: 03-23-2024 End: 03-23-2025 ABO/Rh ABO/Rh Lab Routine Missed menses , unspecified gestational age Expected: 03/23/2024 (Approximate), Expires: 03/23/2025 [facility] Comment on above: Expected: 03/23/2024 (Approximate), Expires: 03/23/2025 Start: 03-23-2024 End: 03-23-2025 Blood type and Indirect antibody screen panel - Blood Type and screen Lab Routine Missed menses , unspecified gestational age Expected: 03/23/2024 (Approximate), Expires: 03/23/2025 [facility] Work Phone: Comment on above: Expected: 03/23/2024 (Approximate), Expires: 03/23/2025 Start: 03-23-2024 End: 03-23-2025 Drugs of abuse panel - Urine by Screen method Rapid drug screen, urine Lab Routine , unspecified gestational age Encounter for supervision of normal first in first trimester Expected: 03/23/2024 (Approximate), Expires: 03/23/2025 [facility] Healthcare Comment on above: Expected: 03/23/2024 (Approximate), Expires: 03/23/2025 Start: 03-23-2024 End: 03-23-2024 ambulatory 03/23/2024 10:00 AM EST Initial [facility] [address] [facility] [phone] [facility] Start: 03-23-2024 End: 03-23-2024 Professional / ancillary services management 03/23/2024 9:30 AM EST Ancillary Procedure [facility] [address] [facility] [phone] [facility] Start: 03-14-2024 End: 03-14-2024 Patient encounter procedure 03/14/2024 1:30 PM EST Office Visit [facility] OB [address] [facility] [place] [phone] Eleazar Lilly, DO [address] [facility] [place] [address] Arrived [facility] Comment on above: Arrived Start: 02-28-2024 End: 02-28-2024 Patient encounter procedure 02/28/2024 8:10 AM EDT Office Visit [facility] OB [address] [facility] [phone] Eleazar Lilly, DO [address] [facility] [place] [address] [facility] Start: 02-08-2024 End: 02-07-2025 SURESWAB(R) ADVANCED VAGINITIS PLUS, TMA SURESWAB(R) ADVANCED VAGINITIS PLUS, TMA Pathology and Cytology Routine Pelvic pain in female Expected: 02/08/2024 (Approximate), Expires: 02/07/2025 [facility] Work Phone: Comment on above: Expected: 02/08/2024 (Approximate), Expires: 02/07/2025 Start: 02-08-2024 End: 02-07-2025 US for US PELVIS-TRANSVAG IF INDICATED Imaging Routine Pelvic pain in female Expected: 02/08/2024 (Approximate), Expires: 02/07/2025 [facility] Comment on above: Expected: 02/08/2024 (Approximate), Expires: 02/07/2025 Start: 02-08-2024 End: 02-08-2024 Patient encounter procedure 02/08/2024 1:20 PM EDT Office Visit [facility] OB [address] [facility] [place] [address] Eleazar Lilly DO [address] [facility] [place] [address] Arrived [facility] OB Comment on above: Arrived Start: 02-02-2024 [facility] Start: 01-08-2024 Influenza vaccination Influenza Vacc ine (#1) [facility] Start: 05-11-2019 Blood count complete auto&auto difrntl wbc CBC w diff [facility] Start: 05-11-2019 TSH Qn TSH [facility] Start: 11-02-2018 Blood count complete automated CBC & PLATELET COUNT; AUTOMATED [facility] Start: 11-02-2018 Comprehensive metabo lic panel Comprehensive metabolic panel [facility] Start: 11-02-2018 Gonadotropin chorion ic qualitative SERUM [facility] Start: 11-02-2018 Hemoglobin A1c/Hemoglobin.total mass fraction (Bld) Hgb A1c [facility] Start: 11-02-2018 Lipid panel Lipid panel [facility] Start: 11-02-2018 Thyrotropin Qn TSH (thyroid s timulating hormone) [facility] Start: 11-02-2018 Urnls dip stick/tabl et rgnt auto w/o microscopy UA [facility] Atopobium vaginae DN A [Presence] in Vaginal fluid by ELDON with probe detection [facility] Bacteria identified in Urine by Culture Urine culture Microbiology Routine Missed menses Ordered: 03/23/2024 [facility] Comment on above: Ordered: 03/23/2024 Bacterial vaginosis associated bacterium 2 DNA [Presence] in Vaginal fluid by ELDON with probe detection [facility] CBC W Auto Different ial panel - Blood CBC and differential Lab Routine Missed menses , unspecified gestational age Ordered: 03/23/2024 [facility] Comment on above: Ordered: 03/23/2024 CBC W Auto Different ial panel - Blood CBC and differential Lab Routine Third trimester Ordered: 08/20/2024 [facility] Comment on above: Ordered: 08/20/2024 CHLAMYDIA TRACHOMATI S (GENITO/STI) CHLAMYDIA TRACHOMATIS (GENITO/STI) Lab Routine Pelvic pain in female Ordered: 02/08/2024 [facility] Comment on above: Ordered: 02/08/2024 CHLAMYDIA TRACHOMATI S (GENITO/STI) CHLAMYDIA TRACHOMATIS (GENITO/STI) Lab Routine STD exposure Ordered: 05/28/2024 [facility] Comment on above: Ordered: 05/28/2024 Cytology Cervical or vaginal smear or scraping study Pap Smear Pathology and Cytology Routine Well woman exam with routine gynecological exam Ordered: 05/28/2024 [facility] Comment on above: Ordered: 05/28/2024 Estradiol (E2) [Mass/volume] in Serum or Plasma [facility] Estrogen [Mass/volum e] in Serum or Plasma [facility] Hemoglobin A1c/Hemoglobin.total in Blood Hemoglobin A1c Lab Routine Missed menses , unspecified gestational age Ordered: 03/23/2024 [facility] Comment on above: Ordered: 03/23/2024 Hemoglobin A1c/Hemoglobin.total in Blood Hemoglobin A1c Lab Routine Third trimester Ordered: 08/20/2024 [facility] Work Phone: Comment on above: Ordered: 08/20/2024 Hepatitis B virus surface Ag [Presence] in Serum or Plasma by Immunoassay Hepatitis B surface antigen Lab Routine Missed menses , unspecified gestational age Ordered: 03/23/2024 [facility] Comment on above: Ordered: 03/23/2024 Hepatitis C virus Ab [Presence] in Serum or Plasma by Immunoassay Hepatitis C antibody Lab Routine Missed menses , unspecified gestational age Ordered: 03/23/2024 [facility] Comment on above: Ordered: 03/23/2024 HIV-1/HIV-2 antigen/antibody combination immunoassay HIV-1 and HIV-2 antibodies Lab Routine Missed menses , unspecified gestational age Ordered: 03/23/2024 [facility] Comment on above: Ordered: 03/23/2024 Holter monitor study [facility] Lutropin [Units/volu me] in Serum or Plasma [facility] Megasphaera sp type 1 DNA [Presence] in Vaginal fluid by ELDON with probe detection [facility] Neisseria gonorrhoea e DNA [Presence] in Unspecified specimen by ELDON with probe detection Neisseria gonorrhea DNA probe, direct Lab Routine Pelvic pain in female Ordered: 02/08/2024 [facility] Comment on above: Ordered: 02/08/2024 Neisseria gonorrhoea e DNA [Presence] in Unspecified specimen by ELDON with probe detection Neisseria gonorrhea DNA probe, direct Lab Routine STD exposure Ordered: 05/28/2024 [facility] Comment on above: Ordered: 05/28/2024 Progesterone [Mass/volume] in Serum or Plasma [facility] Reagin Ab [Presence] in Serum by RPR RPR Lab Routine Missed menses , unspecified gestational age Ordered: 03/23/2024 [facility] Comment on above: Ordered: 03/23/2024 Rubella antibody, IgG Rubella an tibody, IgG Lab Routine Missed menses , unspecified gestational age Ordered: 03/23/2024 [facility] Comment on above: Ordered: 03/23/2024 SURESWAB(R) ADVANCED VAGINITIS PLUS, TMA SURESWAB(R) ADVANCED VAGINITIS PLUS, TMA Pathology and Cytology Routine Vaginal discharge Ordered: 05/28/2024 [facility] Comment on above: Ordered: 05/28/2024 XR Cervical spine 5 Views [facility] XR Thoracic and lumb ar spine Views for scoliosis [facility] Payers Date Payer Category Payer Self-pay 2022 Medicaid [id number] 2022 Medicaid [id number] 2. [id number] 2022 Unknown 2015 Unknown [id number] 2.16 .[id number] 2014 Unknown [id number] 1996 Unknown [id number] 2.16.8 40.1.615049.3.579.2.173 1996 Unknown [id number] 2.16.8 40.1.760076.3.579.2.173 1996 Unknown [id number] 2.16. 840.1.058750.3.579.2.196 1996 Unknown [id number] 2.16. 840.1.437969.3.579.2.196 1996 Unknown [id number] 2.16. 840.1.251352.3.579.2.196 1996 Unknown [id number] 2.16. 840.1.855797.3.579.2.196 1996 Unknown [id number] 2.16. 840.1.868382.3.579.2.196 1996 Unknown [id number] 2.16. 840.1.268378.3.579.2.196 1996 Unknown [id number] 2.16. 840.1.753589.3.579.2.196 1996 Unknown [id number] 2.16.84 0.1.006459.3.579.2.9 1996 Unknown [id number] 2.16.84 0.1.868398.3.579.2.9 1996 Unknown [id number] 2.16.84 0.1.333951.3.579.2.9 1996 Unknown [id number] 2.16.84 0.1.325483.3.579.2.9 1996 Unknown [id number] 2.16.84 0.1.877642.3.579.2.9 1996 Unknown [id number] 2.16.84 0.1.159249.3.579.2.9 1996 Unknown [id number] 2.16.84 0.1.839832.3.579.2.1259 1996 Unknown [id number] 2.16.84 0.1.582362.3.579.2.1259 1996 Unknown [id number] 2.16.84 0.1.023770.3.579.2.1259 1996 Unknown [id number] 2.16.84 0.1.080699.3.579.2.1259 1996 Unknown [id number] 2.16.84 0.1.187541.3.579.2.1259 Unknown [id number] 2.16.8 40.1.212198.3.579.2.531 Social History Date Type Detail Facility Start: Unknown if ever smoked [facility] Start: 1 can pop/day [facility] Sex Assigned At [employer] Other Start: 07-21-2023 End: 02-02-2024 Tobacco smoking status RIIS Never smoked tobacco (finding) [facility] Start: 1995 Sex Assigned At Female F [facility] Tobacco smoking status RIIS Tobacco smoking consumption unknown [facility] Start: 1995 Sex assigned at Not on file [facility] Start: 02-17-2024 [facility] Start: 05-18-2024 Sex Female (finding) [facility] Clinical Notes 10-02-2022 to 10-02-2024 CYNTHIA Del Cid - 10/02/2024 9:10 AM EDTMjulio Cormier MA - 09/13/2024 10:30 AM Vic Ayala LPN - 08/20/2024 9:50 AM CYNTHIA Hurd - 07/23/2024 10:20 AM EDT Note Date & Type Note Facility 10-02-2024 History of Present illness Narrative Reason for Appointment: Patient ID: Giancarlo Celaya is a 28 y.o. female who [...] CYNTHIA Del Cid documented in this encounter [facility] 09-13-2024 History of Present illness Narrative Reason for Appointment: Patient ID: Giancarlo Celaya is a 28 y.o. female who [...] Eleazar Lilly DO documented in this encounter [facility] 08-20-2024 History of Present illness Narrative Reason for Appointment: Patient ID: Giancarlo Celaya is a 28 y.o. female who [...] nursing note reviewed. Exam conducted with a director surgical present. Vitals: Estimated body mass index is [...] of: LYNN Duran documented in this encounter [facility] 07-23-2024 History of Present illness Narrative Reason for Appointment: Patient ID: Giancarlo Celaya is a 28 y.o. female who [...] CYNTHIA Del Cid documented in this encounter [facility] 06-26-2024 History of Present illness Narrative Reason for Appointment: Patient ID: Giancarlo Celaya is a 28 y.o. female who [...] nursing note reviewed. Exam conducted with a director surgical present. Vitals: Estimated body mass index is [...] Eleazar Lilly DO documented in this encounter [facility] 05-28-2024 History of Present illness Narrative Reason for Appointment: Patient ID: Giancarlo Celaya is a 28 y.o. female who [...] nursing note reviewed. Exam conducted with a director surgical present. Vitals: Estimated body mass index is [...] obtained without difficulty and patient was given [facility] order to have obtained. Orders Placed This Encounter Procedures US OB 14+ weeks anatomy scan Alpha fetoprotein, maternal CHLAMYDIA TRACHOMATIS (GENITO/STI) Neisseria gonorrhea DNA probe, direct POCT urinalysis dipstick manually resulted Follow Up: Patient is to return to our office in 4 weeks for routine OB appointment Documented by Nimco Mojica LPN on behalf of: CYNTHIA Del Cid documented in this encounter [facility] 04-30-2024 History of Present illness Narrative Reason for Appointment: Patient ID: Giancarlo Celaya is a 28 y.o. female who [...] Eleazar Lilly DO documented in this encounter [facility] 03-23-2024 History of Present illness Narrative Reason for Appointment: Patient ID: Giancarlo Celaya is a 28 y.o. female who [...] or undercooked meat, and stay away from [facility]. Patient has also been advised [...] Alana Gongora LPN documented in this encounter [facility] 03-14-2024 History of Present illness Narrative Reason for Appointment: Patient ID: Giancarlo Celaya is a 28 y.o. female who [...] nursing note reviewed. Exam conducted with a director surgical present. Vitals: Estimated body mass index is [...] Eleazar Lilly DO documented in this encounter [facility] 03-02-2024 Note Patient Education Ma terials Name: Giancarlo Celaya Zuleyka Current Date: 03/02/2024 06:56:41 [facility] : 1995 The following sheet(s) are the Patient Education Leaflets for Giancarlo Celaya Oncology Breast Health: Breast Self-Awareness What [...] breast self-exam (BSE). These experts include the [employer] and the [employer]. Some experts [...] This means they are not cancer. ? 0523-1943 [employer]. All rights reserved. This information is not intended as a substitute for professional medical care. Always follow your healthcare professional's instructions. [facility] 02-28-2024 History of Present illness Narrative Reason for Appointment: Patient ID: Giancarlo Celaya is a 28 y.o. female who presents for Telehealth (Pt had ultrasound and positive HCG) Patient presents today via telephone call for a telehealth appointment. Patients Phone #: [phone] (mobile) Current Medications: has a current medication [...] Eleazar Lilly DO documented in this encounter [facility] 02-08-2024 History of Present illness Narrative Reason for Appointment: Patient ID: Giancarlo Celaya is a 28 y.o. female who [...] nursing note reviewed. Exam conducted with a director surgical present. Vitals: Estimated body mass index is [...] Eleazar Lilly DO documented in this encounter [facility] 03-26-2023 Evaluation note Encounter Date Diagnosis [...] verbalized understanding and agrees with treatment plan [employer] Other 05-27-2023 Evaluation note* Encounter Date Diagnosis [...] no improvement in 2 to 3 days [employer] Other Evaluation note* Diagnosis Onset Date Resolution Status Acquired scoliosis acute Daily headache acute Fatigue acute Hot flashes acute Irregular menstrual cycle ac hans Neck pain acute [facility] Work Phone: Evaluation note* Diagnosis Onset Date Resolution Status Dizziness acute Heart palpitations acute [facility] Work Phone: Evaluation note* Diagnosis Onset Date Resolution Status Dizziness acute Heart palpitations acute Anxiety acute Depression acute [facility] Work Phone: Evaluation note* Diagnosis Onset Date Resolution Status Dizziness acute Heart palpitations acute Anxiety acute Depression acute Vaginal discharge noneactive Acute effusion of both middle ears noneactive [facility] Work Phone: Evaluation note* Diagnosis Pelvic pain [...] tube dysfunction acute May 18, 2024 10:24am [facility] Work Phone: Evaluation note* Diagnosis Screening, , [...] encounter [facility] Summary Purpose Family History No Family History Records Found Relationship Condition Age at Onset Recorded Date/T kacey father Hypertension Unknown Advance Directives No Advanced Directives Records Found Advance Directive Response Recorded Date/ Time Advance [...] content) DATE CREATED AUTHOR 04/25/2018 Hannah Avalos [facility] DATE CREATED AUTHOR AUTHOR'S ORGANIZ ATION 12/02/2019 [facility] DATE CREATED AUTHOR AUTHOR'S ORGANIZ ATION 02/06/2024 [facility] DATE CREATED AUTHOR AUTHOR'S ORGANIZ ATION 05/26/2024 [facility] DATE CREATED AUTHOR AUTHOR'S ORGANIZ ATION 10/05/2024 [facility] EPIC REASON FOR VISIT [...] Dates Evelyn Vu APRN NP-Debora Primary Care Provider Active Team Status: Inactive Member Role Status Dates GELACIO Aceves Primary Care Provider, Attending Provider Active Start: July 21, 2023 End: July 21, 2023 Team Status: Inactive Member Role Status Dates GELACIO Aceves Primary Care Provider, Attending Provider Active Start: January 03, 2024 End: January 03, 2024 Team Status: Active Member Role Status Dates Evelyn Vu APRN 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-C Primary Care Provider Active Start: January 072023 Ty Aguilar DO Attending Provider Active S tart: January 19, 2024 Team Status: Inactive Member Role Status Dates Evelyn Vu APRN 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-C Primary Care Provider, Attending Provider Active Start: January 24, 2024 End: January 24, 2024 Team Status: Inactive Member Role Status Dates Evelyn Vu APRN 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-C Primary Care Provider Active Start: January 082023 End: February 02, 2024 Jodie Portillo APRN Attending Provider Active Start: February 02, 2024 End: February 02, 2024 Team Status: Inactive Member Role Status Dates Jodie Portillo APRN Attending Provider Active Start: February 02, 2024 End: February 02, 2024 Board Layer Relationship Specialty Start Date End Date Corwin Dee DO [address] [place] [id number] PCP - General Family Medicine 09/14/22 Board Layer Relationship Specialty Start Date End Date Corwin Dee DO [address] [place], [place] [id number] PCP - General Family Medicine 09/14/22 Board Layer Relationship Specialty Start Date End Date Corwin Dee DO [address] [place], [place] [id number] PCP - General Family Medicine 09/14/22 Board Layer Relationship Specialty Start Date End Date Corwin Dee DO [address] [place] [address] PCP - General Family Medicine 09/14/22 Board Layer Relationship Specialty Start Date End Date Unallocated, Noms Aidan, [address] [place] [address] PCP - General Family Medicine 02/28/24 Board Layer Relationship Specialty Start Date End Date Unallocated, Berto Bermudez MD [address] [place] [address] [place] [address] PCP - General Family Medicine 02/28/24 Board Layer Relationship Specialty Start Date End Date Unallocated, Berto Bermudez MD [facility] [address] [facility] [place] [address] PCP - General Family Medicine 02/28/24 Board Layer Relationship Specialty Start Date End Date Unallocated, Berto Bermudez MD [facility] [place] [address] PCP - General Family Medicine 02/28/24 Board Layer Relationship Specialty Start Date End Date Unallocated, Berto Bermudez MD [address] [place], [place] [address] [address] PCP - General Family Medicine 02/28/24 Board Layer Relationship Specialty Start Date End Date Unallocated, Berto Bermudez MD [address] [place], [place] [address] [address] PCP - General Family Medicine 02/28/24 Board Layer Relationship Specialty Start Date End Date Unallocated, Berto Bermudez MD [address] [place], [place] [address] [address] PCP - General Family Medicine 02/28/24 Team [...] May 18, 2024 End: May 18, 2024 Board Layer Relationship Specialty Start Date End Date Unallocated, [place] [address] PCP - General Family Medicine 02/28/24 Board Layer Relationship Specialty Start Date End Date Unallocated, [place] [address] PCP - General Family Medicine 02/28/24 Board Layer Relationship Specialty Start Date End Date Unallocated, [place] [address] PCP - General Family Medicine 02/28/24 Board Layer Relationship Specialty Start Date End Date Unallocated, Berto [facility]rmudez [place] [address] PCP - General Family Medicine 02/28/24 Board Layer Relationship Specialty Start Date End Date Unallocated, Berto Bermudez [place] [place] [address] PCP - General Family Medicine 02/28/24 Board Layer Relationship Specialty Start Date End Date Unallocated, [place] [address] PCP - General Family Medicine 02/28/24 Board Layer Relationship Specialty Start Date End Date Unallocated, Berto Bermudez MD [address] [facility] [place] [address] PCP - General Family Medicine 02/28/24 Board Layer Relationship Specialty Start Date End Date Unallocated, Berto Bermudez MD [address] [place] [address] PCP - General Family Medicine 02/28/24 Board Layer Relationship Specialty Start Date End Date Unallocated, Berto Bermudez MD [address] [place] [address] PCP - General Family Medicine 02/28/24 Goals [...] BE BASED ON THE PRIMARY CLINICAL RECORDS. [facility]. provides no warranty or guarantee of the accuracy or completeness of information in this document.
--- OUTSIDE RECORDS SUMMARY | 2024-10-14 11:57 | XMS_ITS | Encounter Summary ---
Author Organization [facility] Address [address] [place] [address] Care Team Providers Care Carpenter Assistant Installer Name Role Phone Unallocated, Noms Provider Primary Care [facility] Encounter Details Date Type Department Care Team (Late st Contact Info) Description 10/09/2024 Clinisync Result Encounter NOMS External Department Unsolicited Amalia Lilly, DO [address] [place] [address] Social History Tobacco Use Types Packs/Day Years [...] [facility]OMS BCP OB [address] [place] [phone] Amalia Lilly DO [address] [place] [address] documented as of this encounter Procedures Procedure Name Priority Date/Time Associated Diagnosis Comments US OB BPP W NON-STRESS 10/09/2024 4:48 PM EDT documented in this encounter Results * US OB BPP W NON-STRESS (10/09/2024 4:48 PM EDT) Anatomical Region Laterality Modality Other 10/09/2024 4:48 PM EDT Narrative 10/09/2024 4:50 [place] [address] Ultrasound Report Signed Patient: GIANCARLO CELAYA MR#: [id number] : 1995 Acct:[id number] Age/Sex: 28 / F ADM Date: 10/09/24 Loc: [address]: Amalia Lilly D.O. Ordering Physician: Amalia Lilly D.O. Date of Service: 10/09/24 Procedure(s): US OB BPP w non-stress Accession Number(s): [id number] cc: Amalia Lilly D.O.; LUDY GRA[place] [address] Patient Name: GIANCARLO CELAYA MRN: [id number] date: 1995 Sex: F Assigned Patient Location: [facility] Current Patient Location: [facility] Accession/Order Number: [id number] Exam Date: 10/09/2024 16:46 Report Date: 10/09/2024 [...] Katz M.D. 10/09/2024 4:48 PM Dictation Location: [place] [address] Electronically authenticated by: [id number] Y Date: 10/09/2024 16:48 Dictated By: Ty Katz D.O. Signed By: 10/09/24 1650 DD/ 1648 TD/TT: Canine Service Teacher: Procedure Note Radiology, Radiologist, - 10/09/2024 [place] [address] Ultrasound Report Signed Patient: GIANCARLO CELAYA EMR#: [id number] : 1995Acct:[id number] Age/Sex: 28 / FADM Date: 10/09/24 Loc: [facility] [address]: Amalia Lilly D.O. Ordering Physician: Amalia Lilly D.O. Date of Service: 10/09/24 Procedure(s): US OB BPP w non-stress Accession Number(s): [id number] cc: Amalia Lilly D.O.; LUDY GRAFF [place] [address] Patient Name: GIANCARLO CELAYA MRN: [id number] date: 1995 Sex: F Assigned Patient Location: [facility] Current Patient Location: [facility] Accession/Order Number: [id number] Exam Date: 10/09/2024 16:46 Report Date: 10/09/2024 [...] Katz M.D. 10/09/2024 4:48 PM Dictation Location: [place] [address] Electronically authenticated by: [id number] Y Date: 6:48 Dictated By: Ty Katz D.O. Signed By:10/09/24 1650 DD/ TD/TT: Canine Service Teacher: us Amalia Lilly DO [facility] Final Result documented in this encounter Visit Diagnoses Not on filedocumented in this encounter Care Teams Carpenter Assistant Installer Relationship Specialty Start Date End Date Unallocated, Noms Provider, [address] [place] [address] PCP - General Family Medicine 02/28/24 documented as of this encounter
--- OUTSIDE RECORDS SUMMARY | 2024-10-14 11:57 | XMS_ITS | Encounter Summary ---
Author Organization [facility] Address [address] [facility] [place] [address] Care Team Providers Care Manager Export Name Role Phone Unallocated, Noms Provider Primary Care [facility] Encounter Details Date Type Department Care Team (Late st Contact Info) Description 10/12/2024 Telephone [facility] BCP OB [address] [facility] [place] [phone] Shalonda Anderson MA Social History Tobacco Use [...] Telephone Encounter - Shalonda Anderson MA - 10/12/2024 10:38 AM EDT OB: 36w 0d Pt had NST this morning. States she was having contractions every 3-5 min. Pt is concerned as she has umbilical cord knot and states that during each contraction the cord tightens. Pt concerned as she is still having contractions. Reassurance given, advised if she has concerns over weekend to head to [facility]. Pt voiced understanding but would like Dr. Lilly's Opinion Please Advise documented in this encounter Plan of Treatment Upcoming Encounters Date Type Department Care Team (Late st Contact Info) Description 10/16/2024 10:10 AM EDT Routine [facility] BCP OB [address] [facility] [place] [address] Eleazar Lilly, [address] [place] [address] documented as of this encounter Visit Diagnoses Not on filedocumented in this encounter Care Teams Manager Export Relationship Specialty Start Date End Date Unallocated, Noms Provider, [place] [address] PCP - General Family Medicine 02/28/24 documented as of this encounter
--- OUTSIDE RECORDS SUMMARY | 2024-10-14 11:57 | XMS_ITS | Encounter Summary ---
Author Organization [facility] Address [address] [facility] [place] [address] Care Team Providers Care Student Services Representative Name Role Phone Unallocated, Noms Provider Primary Care [facility] Encounter Details Date Type Department Care Team (Late st Contact Info) Description 10/10/2024 Telephone [facility]OM[facility] BCP OB [address] [place] [address] Eleazar Lilly, DO [address], [place] [id number] Social History Tobacco Use Types Packs/Day Years [...] encounter Miscellaneous Notes * Telephone Encounter - Alana GRETCHEN Gongora - 10/10/2024 3:17 PM EDT I was just calling I was prescribed Sertraline 25 mg. Like before I found out I was and I just assumed that I was not able to take it. So I stopped immediately after finding out that I was . Being 36 weeks almost. I am curious if I am able to take that if so, that I would like to start taking that again. Patient was called and made aware this medication is safe to take in but she will want tofollow up with the prescribing physican as we are ok with her being on medication to help symptoms.PVU documented in this encounter Plan of Treatment Upcoming Encounters Date Type Department Care Team (Late st Contact Info) Description 10/16/2024 10:10 AM EDT Routine [facility]OM[facility] BCP OB [address] [facility] [place] [address] Eleazar Lilly, DO [address] [facility] [place] [address] documented as of this encounter Visit Diagnoses Not on filedocumented in this encounter Care Teams Student Services Representative Relationship Specialty Start Date End Date Unallocated, Noms Provider, [place] [address] PCP - General Family Medicine 02/28/24 documented as of this encounter
[2024-10-14 12:11] VITALS: BP 114/74; PULSE 114
[2024-10-14 12:30] LABS: Bilirubin Urine NEGATIVE (NEGATIVE); Blood Urine NEGATIVE (NEGATIVE); Clarity Urine SL CLOUDY (CLEAR); Color Urine LT. YELLOW (YELLOW); Glucose Urine UA NEGATIVE (NEGATIVE); Ketones Urine NEGATIVE (NEGATIVE); Leukocyte Esterase Urine MODERATE (NEGATIVE); Nitrite Urine NEGATIVE (NEGATIVE); Protein Urine 30 mg/dL (NEG/TRACE)
[2024-10-14 12:32] LABS: Amnisure NEGATIVE (NEGATIVE); Internal Control Within Normal Limits
[2024-10-14 12:32] LABS: Urine Microscopic Indicated YES
[2024-10-14 12:44] LABS: Bacteria Urine LARGE #/HPF (NONE SEEN); Crystals Seen? None Seen #/HPF (None Seen); Mucus Urine TRACE (NONE SEEN); Squamous Epithelial Cell Urine MODERATE #/LPF (NONE/RARE); Transitional Epi Cells Urine FEW #/LPF (NONE SEEN); WBC Urine 20-50 #/HPF (NONE SEEN)
[2024-10-14 12:45] LABS: Cast Seen? NONE SEEN #/LPF (NONE SEEN); Urine Culture Indicated YES-LC
== END 2024-10-14 14:20 | disposition home or self-care (01) ==
PROVIDERS: Admitting Provider Obstetrics & Gynecology; PCP Nurse Practitioner Family; Visit Provider Obstetrics & Gynecology
DX: O26.893 Other specified pregnancy related conditions, third trimester (principal); Z3A.36 36 weeks gestation of pregnancy
CPT/HCPCS: 81001; 84112; 87086; G0378; G0379

== ENCOUNTER 2024-10-16 14:50 | Outpatient (OUT) | payer MEDICAID, SELFPAY ==
--- NOTE | 2024-10-16 | US_ITS ---
[place] [id number] Patient Name: GIANCARLO CELAYA MRN: [id number] date: 1995 Sex: F Assigned Patient [facility]: [facility] Current Patient Location: Accession/Order Number: [id number] Exam Date: 10/16/2024 16:18 Report Date: 10/16/2024 16:19 At the request of: AMALIA CASILLAS DO Procedure: US OB BPP w non-stress Biophysical profile. Reason for exam: Knot of the umbilical cord. Comparison: BPP 10/09/2024. TECHNIQUE: Transabdominal imaging of the gravid uterus was obtained. FINDINGS: Vice President Of Business Development reports the BPP is 8 out of 8. BHAVANI is normal at 12.6 cm. heart rate 132 bpm. US/US OB BPP w non-stress IMPRESSION: BPP 8 out of 8. Impression dictated by: Celestino Vinson Jr., D.O. 10/16/2024 4:19 PM Dictation Location: [place] [address] Electronically authenticated by: [id number] Y Date: 10/16/2024 16:19
[2024-10-16 15:22] VITALS: BP 107/62; PULSE 69
== END 2024-10-16 15:53 | disposition home or self-care (01) ==
LOC: US 14:50 → FBC 14:52
PROVIDERS: PCP Nurse Practitioner Family; Visit Provider Obstetrics & Gynecology
DX: O26.893 Other specified pregnancy related conditions, third trimester (principal); Z3A.36 36 weeks gestation of pregnancy
CPT/HCPCS: 76818; 87081; 87184

== ENCOUNTER 2024-10-16 19:35 | Outpatient (REF) | payer MEDICAID, SELFPAY ==
--- OUTSIDE RECORDS SUMMARY | 2010-07-27 16:35 | XMS_ITS | Encounter Summary ---
Author Organization [facility] Address [address] [place] [address] Care Team Providers Care District Sales Leader Name Role Phone Unavailable Primary Care Provider Unavailabl e Encounter Details Date Type Department Care Team (Late st Contact Info) Description 07/27/2010 4:35 PM EDT Hospital Encounter [place] [phone] Social History Tobacco Use Types Packs/Day Years [...]
--- OUTSIDE RECORDS SUMMARY | 2024-06-08 09:30 | XMS_ITS ---
Author Organization [facility] Address [address] [place] [address] Care Team Providers Care Packing Inspector Name Role Phone Katie Monroe Primary Care Provider [phone] Ines Sauceda Unavailable Swapna Chris Unavailable [phone] REASON FOR VISIT PROPHY Encounters Encounter Location Date Provider Diagnosis [facility] [address] [place] [address] 06/08/2024 Swapna Chris Plan Of Treatment No Information Progress Notes * GIANCARLO CELAYA EDOB:1995 (28 yo F)Acc No.[id number]:06/08/2024 Patient: GIANCARLO DAVIDSON Provider: Debora Chris :1995 A ge:28 Y S ex:Female Date:06/08/2024 Address:[address] [place] [address], [id number] Pcp:Katie Monroe Subjective: * Chief Complaints: * 1 . PROPHY. * Medical History: Objective: * Vitals: Assessment: Plan: * Treatment: * Images: * Electronic signature of Misti Chris on 10/16/2024 at 08:10 AM EDT Sign off status: Pending * Provider: Debora Chris Date: 0 06/08/2024 Generated for Printi ng/Faxing/eTransmitting on: 0 10/16/2024 08:10 AM EDT
--- OUTSIDE RECORDS SUMMARY | 2024-06-11 09:30 | XMS_ITS ---
Author Organization [facility] Address [address] [place] [address] Care Team Providers Care Aquatic Biologist Name Role Phone Katie Monroe Primary Care Provider Ines Sauceda Unavailable REASON FOR VISIT FILLING Encounters Encounter Location Date Provider Diagnosis [address] [place] [address] 06/11/2024 Ines Hodges Plan Of Treatment No Information Progress Notes * GIANCARLO CELAYA EDOB:1995 (28 yo F)Acc No.[id number]:06/11/2024 Patient: Juan Pablo DAVIS GIANCARLO Peterson Provider: Nagi HODGES DDS :1995 A ge:28 Y S ex:Female Date:06/11/2024 Address:[address] [place] [address], [id number] Pcp:Katie Monroe Subjective: * Chief Complaints: * 1 . FILLING. * Medical History: Objective: * Vitals: Assessment: Plan: * Treatment: * Images: * Electronic signature of Elsie Hodges DDS on 10/16/2024 at 08:10 AM EDT Sign off status: Pending * Provider: Nagi HODGES DDS Date: 0 06/11/2024 Generated for Printi ng/Faxing/eTransmitting on: 0 10/16/2024 08:10 AM EDT
--- OUTSIDE RECORDS SUMMARY | 2024-08-03 10:30 | XMS_ITS ---
Author Organization [facility] Address [address] [place] [address] Care Team Providers Care Personal Secretary Name Role Phone Katie Monroe Primary Care Provider Ines Sauceda Unavailable REASON FOR VISIT FILLING Encounters Encounter Location Date Provider Diagnosis [address] [place] [address] 08/03/2024 Ines Hodges Plan Of Treatment No Information Progress Notes * GIANCARLO CELAYA EDOB:1995 (28 yo F)Acc No.[id number]:08/03/2024 Patient: Juan Pablo DAVIS GIANCARLO Peterson Provider: Nagi HODGES DDS :1995 A ge:28 Y S ex:Female Date:08/03/2024 Address:[address] [place] [address], [id number] Pcp:Katie Monroe Subjective: * Chief Complaints: * 1 . FILLING. * Medical History: Objective: * Vitals: Assessment: Plan: * Treatment: * Images: * Electronic signature of Elsie Hodges DDS on 10/16/2024 at 08:10 AM EDT Sign off status: Pending * Provider: Nagi HODGES DDS Date: 0 08/03/2024 Generated for Printi ng/Faxing/eTransmitting on: 0 10/16/2024 08:10 AM EDT
--- OUTSIDE RECORDS SUMMARY | 2024-10-02 09:10 | XMS_ITS | Encounter Summary ---
Author Organization [facility] Address [address] [facility] [place] [address] Care Team Providers Care Police Or Patrol Park Officer Name Role Phone Unallocated, Noms Provider Primary Care [facility] Reason for Visit * Reason Comments Routine Visit Encounter Details Date Type Department Care Team (Late st Contact Info) Description 10/02/2024 9:10 AM EDT Routine [facility] BCP OB [address] [facility] [place] [phone] Cheryl Baugh PA [address] [place] [address] Dr [place], [facility]11 Third trimester ; 34 weeks gestation of ; BV (bacterial vaginosis) Social History Tobacco Use Types Packs/Day Years Used Date Smoking Tobacco: Never Assessed Estimated Date of Delivery Comme nts Yes 11/09/2024 Based on Ultraso und Sex and Gender Information Value Date Recorded Sex Assigned at Not on file Legal Sex Female 7:01 PM EDT Gender Identity Not on file Sexual Orientation Not on file documented as of this encounter Last Filed Vital Signs Vital Sign Reading Time Taken Comments Blood Pressure 102/64 10/02/2024 9:28 AM EDT Pulse - - Temperature - - Respiratory Rate - - Oxygen Saturation - - Inhaled Oxygen Concentration - - Weight 64.3 kg (141 lb 12.8 oz) 10/02/2024 9:28 AM EDT Height - - Body Mass Index 26.79 02/08/2024 1:21 PM EDT documented in this encounter Progress Notes * CYNTHIA Del Cid - 10/02/2024 9:10 AM EDT Reason for Appointment: Patient ID: Cristiane Dunbar is a 28 y.o. female who presents for Routine Visit Patient presents today for Return OB appointment. MEDICATIONS Current Outpatient Medications Medication Instructions fluticasone (Flonase) 50 MCG/ACT nasal spray USE 1 SPRAY IN EACH NOSTRIL TWICE A DAY iron polysaccharides (PROFE) 391.3 mg, Oral, Daily metroNIDAZOLE (Metrogel) 0.75 % vaginal gel Vaginal, Daily ondansetron ODT (ZOFRAN-ODT) 4 mg, Oral, Every [...] Exam Constitutional: Appearance: Normal appearance. She is normal weight. HENT: Head: Normocephalic. Cardiovascular: Rate and Rhythm: Normal rate. Pulses: Normal pulses. Pulmonary: Effort: Pulmonary effort is normal. Breath sounds: Normal breath sounds. Abdominal: Palpations: Abdomen is soft. Musculoskeletal: General: Normal range of motion. Neurological: General: No focal deficit present. Mental Status: She is alert and oriented to person, place, and time. Psychiatric: Mood and Affect: Mood normal. Behavior: Behavior normal. Thought Content: Thought content normal. Judgment: Judgment normal. Vitals and nursing note reviewed. Vitals: Estimated body mass index is 26.79 kg/m?? as calculated from the following: Height as of 02/08/24: 5' 1 . Weight as of this encounter: 141 lb 12.8 oz. BP: 102/64 Patient's last menstrual period was 01/23/2024. ASSESSMENT & PLAN ICD-10-CM 1. Third trimester Z34.93 2. 34 weeks gestation of Z3A.34 3. BV (bacterial vaginosis) N76.0 metroNIDAZOLE (Metrogel) 0.75 % vaginal gel B96.89 Return OB: Patient presents today for a routine obstetrics appointment. Patient is currently 34w4d . Patient states she is doing well but has complaints of being tired due to current . Patient has verbalizes frequent movement. labor precautions was discussed/given and patient was instructed to perform kick counts three times a day. Patient states she has a fishy odor with discharge, we will send in metrogel for bv. Patient will notify us if does not improve No orders of the defined types were placed in this encounter. Follow Up: Patient is to return to office in 2 week for routine OB appointment. Documented by CYNTHIA Del Cid on behalf of: CYNTHIA Del Cid documented in this encounter Plan of Treatment Upcoming Encounters Date Type Department Care Team (Late st Contact Info) Description 10/23/2024 9:00 AM EDT Routine [facility] BCP OB [address] [facility] [place] [phone] Eleazar Lilly, DO [address] [place] [address] [place] [address] 10/29/2024 8:20 AM EDT Routine [facility] BCP OB [address] [facility] [place] [phone] Eleazar Lilly, [address] [place] [address] documented as of this encounter Visit Diagnoses Diagnosis Third trimester state, incidental 34 weeks gestation of BV (bacterial vaginosis) Unspecified vaginitis and vulvovaginitis documented in this encounter Care Teams Police Or Patrol Park Officer Relationship Specialty Start Date End Date Unallocated, Noms Provider, [address] [place] [address] PCP - General Family Medicine 02/28/24 documented as of this encounter
--- OUTSIDE RECORDS SUMMARY | 2024-10-16 10:10 | XMS_ITS | Encounter Summary ---
Author Organization [facility] Address [address] [place] [address] Care Team Providers Care Industrial Millwright Name Role Phone Unallocated, Noms Provider [facility] Reason for Visit * Reason Comments Routine Visit Encounter Details Date Type Department Care Team (Late st Contact Info) Description 10/16/2024 10:10 AM EDT Routine [facility]OM[facility] BCP OB [address] [facility] [address] Eleazar Lilly, DO [address] [place] [address] Dr [address], [facility] Third trimester ; 36 weeks gestation of Social History Tobacco Use Types Packs/Day Years [...] this encounter Progress Notes * Yaneli Xavier, ULTRASOUND TECHNOLOGIST - 10/16/2024 10:10 AM EDT Reason for [...] nursing note reviewed. Exam conducted with a surgical asst present. Vitals: Estimated body mass index is [...] EDT Routine NOMS BCP OB [address] [facility] [phone] Eleazar Lilly DO [address] [place] [address] [place] [address] 10/29/2024 8:20 AM EDT Routine [facility]OM[facility] BCP OB [address] [place] [phone] Eleazar Lilly DO [address] [place] [address] Scheduled Orders Name Type Priority Associated Diagnoses Orde r Schedule CULTURE, GROUP B STREP WITH SUSCEPTIBLITY Lab Routine Third trimester Expected: 10/16/2024, Expires: 10/16/2025 documented as of this encounter Procedures Procedure Name Priority Date/Time Associated Diagnosis Comments POCT URINALYSIS DIPSTICK Routine 10/16/2024 10:47 AM EDT Third trimester 36 weeks gestation of documented in this encounter Results * (ABNORMAL) [...] Visit Diagnoses Diagnosis Third trimester state, incidental 36 weeks gestation of documented in this encounter Care Teams Industrial Millwright Relationship Specialty Start Date End Date Unallocated, Noms Aidan, [address] [place] [address] PCP - General Family Medicine 02/28/24 documented as of this encounter
--- OUTSIDE RECORDS SUMMARY | 2024-10-16 19:38 | XMS_ITS | Encounter Summary ---
Author Organization [facility] Address [address] [place] [address] Care Team Providers Care Clinical Quality Assurance Specialist Name Role Phone Unallocated, Noms Provider Primary Care [facility] Encounter Details Date Type Department Care Team (Late st Contact Info) Description 03/17/2024 Abstract [facility] BCP OB [address] [facility] [phone] Eleazar Lilly DO [address] [place], [facility] Social History Tobacco Use Types Packs/Day [...] AM EDT Routine NOMS BCP OB [address] [facility] [place] [phone] Eleazar Lilly DO [address] [place] [address] 10/29/2024 8:20 AM EDT Routine NOMS BCP OB [address] [facility] [place] [phone] Eleazar Lilly, DO [address] [facility] [place] [address] documented as of this encounter Visit Diagnoses Not on filedocumented in this encounter Care Teams Clinical Quality Assurance Specialist Relationship Specialty Start Date End Date Unallocated, Noms Provider, [place] [address] PCP - General Family Medicine 02/28/24 documented as of this encounter
--- OUTSIDE RECORDS SUMMARY | 2024-10-16 19:38 | XMS_ITS | Encounter Summary ---
Author Organization [facility] Address [address] [place] [address] Care Team Providers Care Recycling Coordinator Name Role Phone Unallocated, Noms Provider Primary Care [facility] Encounter Details Date Type Department Care Team (Late st Contact Info) Description 06/08/2024 Orders Only NOMS BCP OB [address] [place] [address] N[address] Cormier [address] [place] [address] Social History Tobacco Use Types Packs/Day Years [...] 9:00 AM EDT Routine NOMS BCP OB [facility] [place] [address] Eleazar Lilly DO [facility] [address] [place], [place] [phone] 10/29/2024 8:20 AM EDT Routine NOMS BCP [facility] [place] [address] Eleazar Lilly, [address] [facility] [address] [place] [place], [place] [address] documented as of this encounter Procedures Procedure Name Priority Date/Time Associated Diagnosis Comments PAP SMEAR Routine 05/28/2024 12:00 AM EST documented in this encounter Results * Pap Smear (05/28/2024 12:00 AM EST) Swab Cervical swab / Unknown us Cheryl MARIE LAB CYTOLOGY ORDERABLES Final Re sult EXTERNAL LAB documented in this encounter Visit Diagnoses Not on filedocumented in this encounter Care Teams Recycling Coordinator Relationship Specialty Start Date End Date Unallocated, Noms Provider, [place] [address] PCP - General Family Medicine 02/28/24 documented as of this encounter
--- OUTSIDE RECORDS SUMMARY | 2024-10-16 19:38 | XMS_ITS | Clinical Summary ---
Author Organization Martir Young [facility] Address [address] [place] [address] Care Team Providers Care Buttonholer Name Role Phone Unavailable Primary Care Provider [...] Plan of Treatment Not on file Insurance [place]
--- OUTSIDE RECORDS SUMMARY | 2024-10-16 19:38 | XMS_ITS | Clinical Summary ---
Author Organization [facility] Address [address] [place] [address] Care Team Providers Care Molecular Biologist Name Role Phone Unallocated, Noms Provider Primary [...] 5 days 70 g 10/03/19 25 025 Discontinu ed(Therapy completed) Active Problems Problem Noted Date Diagnosed Date 12 weeks gestation of 04/30/2024 Second trimester 04/30/2024 Nausea and vomiting in 04/16/2024 Estimated Date of Delivery Comme nts Yes 11/09/2024 Based on Ultraso und Encounters Date Type Department Care Team Description 10/16/2024 10:10 AM EDT Routine [facility] [address] [place] [address] Amalia Lilly, DO Third trimester ; 36 weeks gestation of 10/16/2024 Clinisync Result Encounter NOMS External Department Unsolicited Amalia Lilly, DO 10/16/2024 Bamboo flowsheet [facility] OB [address] [place] [address] Amalia Lilly, DO 10/14/2024 Clinisync Result Encounter NOMS External Department Unsolicited Amalia Lilly, DO 10/12/2024 Telephone [facility] [address] [place] [address] Shalonda Anderson MA 10/10/2024 Telephone [facility] OB [facility] [place] [address] Amalia Lilly, DO 10/09/2024 Clinisync Result Encounter NOMS External Department Unsolicited Amalia Lilly, DO 10/02/2024 9:10 AM EDT Routine [facility] OB [facility] [place] [address] Cheryl Baugh PA Third trimester ; 34 weeks gestation of ; BV (bacterial vaginosis) 10/02/2024 Clinisync Result Encounter [facility]OM[facility] External Department Unsolicited Amalia Lilly, DO 10/02/2024 Bamboo flowsheet [facility] [address] [place] [address] Cherly Baugh PA 09/27/2024 Refill [facility] [address] [place] [address] Nimco Mojica, CRO Nausea and vomiting in 09/25/2024 Clinisync Result Encounter [facility]OMS External Department Unsolicited Amalia Lilly, DO 09/24/2024 Clinisync Result Encounter [facility]OMS External Department Unsolicited Gaye Vázquez, CHERI 09/24/2024 Results Follow-Up [facility] [address] [facility] [address] Nimco Mojica, CRO 09/24/2024 Telephone [facility] OB [address] [facility] [address] Nimco Mojica, CRO 09/21/2024 Telephone [facility] OB [address] [facility] [address] Monica Ayala, CRO 09/21/2024 Telephone [facility] OB [address] [place] [address] [place] [address] Shalonda Anderson MA 09/19/2024 Clinisync Result Encounter [facility]OM[facility] External Department Unsolicited Gaye Vázquez, CHERI 09/19/2024 Telephone [facility] OB [address] [place] [address] [place] [address] Shalonda Anderson MA 09/18/2024 Clinisync Result Encounter [facility]OMS External Department Unsolicited Amalia Lilly, 09/13/2024 10:30 AM EDT Routine [facility] OB [address] [facility] [place] [address] Amalia Lilly, Third trimester ; 31 weeks gestation of ; size inconsistent with dates 09/13/2024 Bamboo flowsheet [facility] [address] [place] [address] Amalia Lilly, 09/03/2024 Telephone [facility] OB [address] [place] [address] [place] [address] Nga Cormier MA 08/20/2024 9:50 AM EDT Routine [facility] [address] [place] [address] Amalia Lilly, Third trimester 08/20/2024 Clinisync Result Encounter [facility]OMS External Department Unsolicited Gaye Vázquez NP 08/20/2024 Bamboo flowsheet [facility] [address] [place] [address] Amalia Lilly, 07/23/2024 10:20 AM EDT Routine [facility] [address] [place] [address] Cheryl Baugh PA 24 weeks gestation of ; Second trimester ; Diabetes mellitus screening 07/23/2024 9:00 AM EDT Ancillary Procedure [facility] [address] [place] [address] Low-lying placenta from Last 3 Months Family [...] (144 lb) 10/16/2024 10:46 AM EDT Height 154.9 cm (5' 1 ) 02/08/2024 1:21 PM EDT Body Mass Index 27.21 02/08/2024 1:21 PM EDT Plan of Treatment Upcoming Encounters Date Type Department Care Team (Late st Contact Info) Description 10/23/2024 9:00 AM EDT Routine [facility] [address] [place] [address] Amalia Lilly, DO [address] [place] [address] [place] [address] 10/29/2024 8:20 AM EDT Routine [facility] [address] [facility] [address] Amalia Lilly, DO [address] [place] [address] [place] [address] Health Maintenance Due Date Last Done Comments Influenza Vaccine (Season Ended) 2025 Procedures Procedure Name Priority Date/Time Associated Diagnosis Comments US OB BPP W NON-STRESS 10/16/2024 4:19 PM EDT POCT URINALYSIS DIPSTICK Routine 10/16/2024 10:47 AM EDT Third trimester 36 weeks gestation of AMNISURE Routine 10/14/2024 12:08 PM EDT TB[facility] URINE MICROSCOPIC ONLY Routine 10/14/2024 12:00 PM EDT TBH UA (CLEAN/CATCH) SUPPLY CHAIN ASSISTANT/MICRO IF IND. Routine 10/14/2024 12:00 PM EDT US OB BPP W NON-STRESS 10/09/2024 4:48 [...] PM EDT [facility] CMP (CMP) (FOR REMOTE [facility] USE) Routine 09/19/2024 2:31 PM EDT US [...] Results * US OB BPP W NON-STRESS (10/16/2024 4:19 PM EDT) Only the most recent of4 resultswithin the time period is included. Anatomical Region Laterality Modality Other 10/16/2024 4:19 PM EDT Narrative 10/16/2024 4:21 [place] [address] Ultrasound Report Signed Patient: GIANCARLO CELAYA MR#: [id number] : 1995 Acct:[id number] Age/Sex: 28 / F ADM Date: 10/16/24 Loc: US Attending Dr: Amalia Lilly D.O. Ordering Physician: Amalia Lilly D.O. Date of Service: 10/16/24 Procedure(s): US OB BPP w non-stress Accession Number(s): [id number] cc: Amalia Lilly D.O.; LUDY GRAFF [place] [id number] Patient Name: GIANCARLO CELAYA MRN: [id number] date: 1995 Sex: F Assigned Patient Location: [facility] Current Patient Location: Accession/Order Number: [id number] Exam Date: 10/16/2024 16:18 Report Date: 10/16/2024 16:19 At the request of: AMALIA LILLY DO Procedure: US OB BPP w non-stress Biophysical profile. Reason for exam: Knot of the umbilical cord. Comparison: BPP 10/09/2024. TECHNIQUE: Transabdominal imaging of the gravid uterus was obtained. FINDINGS: Umbrella Mender reports the BPP is 8 out of 8. BHAVANI is normal at 12.6 cm. heart rate 132 bpm. US/US OB BPP w non-stress IMPRESSION: BPP 8 out of 8. Impression dictated by: Celestino Vinson Jr., D.O. 10/16/2024 4:19 PM Dictation Location: [place] [address] Electronically authenticated by: [id number] Y Date: 10/16/2024 16:19 Dictated By: Celestino Vinson M.D. Signed By: 10/16/24 1621 DD/ 1619 TD/TT: Tipple Oiler: Procedure Note Radiology, Radiologist, MD - 10/16/2024 [place] [address] Ultrasound Report Signed Patient: GIANCARLO CELAYA EMR#: [id number] : 1995Acct:[id number] Age/Sex: 28 / FADM Date: 10/16/24 Loc: US Attending Dr: Amalia Lilly D.O. Ordering Physician: Amalia Lilly D.O. Date of Service: 10/16/24 Procedure(s): US OB BPP w non-stress Accession Number(s): [id number] cc: Amalia Lilly D.O.; LUDY GRAFF [address] [address] Patient Name: GIANCARLO CELAYA MRN: [id number] date: 1995 Sex: F Assigned Patient Location: [facility] Current Patient Location: Accession/Order Number: [id number] Exam Date: 10/16/2024 16:18 Report Date: 10/16/2024 16:19 At the request of: AMALIA LILLY DO Procedure: US OB BPP w non-stress Biophysical profile. Reason for exam: Knot of the umbilical cord. Comparison: BPP 10/09/2024. TECHNIQUE: Transabdominal imaging of the gravid uterus was obtained. FINDINGS: Umbrella Mender reports the BPP is 8 out of 8. BHAVANI is normal at12.6 cm. heart rate 132 bpm. US/US OB BPP w non-stress IMPRESSION: BPP 8 out of 8. Impression dictated by: Celestino Vinson Jr., D.O. 10/16/2024 4:19 PM Dictation Location: [place] [address] Electronically authenticated by: [id number] Y Date: 6:19 Dictated By: Celestino Vinson M.D. Signed By:10/16/24 1621 DD/ 1619 TD/TT: Tipple Oiler: Amalia Lilly DO [facility] Final Result * (ABNORMAL) POCT urinalysis dipstick manually resulted (10/16/2024 10:47 AM EDT) Only the most recent of4 resultswithin the time period is included. Color, [...] Positive Urine 10/16/2024 10:4 7 AM EDT [employer] Vijaya DO POINT OF CARE TEST ENTER/EDIT OR DERABLES Final Result * AMNISURE (10/14/2024 12:08 PM EDT) Pathologist [facility] AMNISURE NEGATIVE NEGATIVE TBH 10/14/2024 12:0 8 PM EDT 10/14/2024 12:17 PM EDT Narrative [facility] - 10/14/2024 12:32 PM EDT Fungoso DO LAB BLOOD ORDERABLES Final Resul t [facility] * (ABNORMAL) TBH URINE MICROSCOPIC ONLY (10/14/2024 12:00 PM EDT) [facility] WBC 20-50(A) NONE SEEN #/HPF TBH TBH RBC 10-20(A) 0 - 2 #/HPF [facility] BACTERIA URINE LARGE(A) NONE SEEN #/HPF TBH MUCUS URINE TRACE(A) NONE SEEN TBH SQUAMOUS EPITHELIAL CELL URINE MODERATE( A) NONE/RARE #/LPF TBH TRANSITIONAL EPI CELLS URINE FEW(A) NONE SEEN #/LPF TBH CRYSTALS SEEN? None Seen None Seen #/HPF TBH CAST SEEN? NONE SEEN NONE SEEN #/LPF TBH URINE CULTURE INDICATED YES-LC [facility] 10/14/2024 12:0 0 PM EDT 10/14/2024 12:27 PM EDT Narrative [facility] - 10/14/2024 12:45 PM EDT Amalia Vijaya DO [facility] Final Result Performing Organization Address [facility] de Phone Number [facility] * (ABNORMAL) [facility] UA (CLEAN/CATCH) SUPPLY CHAIN ASSISTANT/MICRO IF IND. (10/14/2024 12:00 PM EDT) COLOR URINE LT. YELLOW YELLOW TBH CLARITY URINE SL CLOUDY CLEAR TBH SPECIFIC GRAVITY URINE 1.020 1.005 - 1.025 TBH PH URINE 7.0 5.0 - 9.0 TBH PROTEIN URINE 30(A) NEG/TRACE mg/dL TBH GLUCOSE URINE UA NEGATIVE NEGATIVE mg/dL TBH BILIRUBIN URINE NEGATIVE NEGATIVE TBH KETONES URINE NEGATIVE NEGATIVE mg/dL TBH BLOOD URINE NEGATIVE NEGATIVE TBH NITRITE URINE NEGATIVE NEGATIVE TBH UROBILINOGEN URINE 2.0(A) 0.2 - 1.0 EU/dL TBH LEUKOCYTE ESTERASE URINE MODERATE(A) NEGATIVE TBH URINE MICROSCOPIC INDICATED YES [facility] 10/14/2024 12:0 0 PM EDT 10/14/2024 12:27 PM EDT Narrative [facility] - 10/14/2024 12:45 PM EDT us Amalia Murrayo DO [facility] Final Result Performing Organization Address [facility] de Phone Number [facility] * [facility] BILE ACIDS FRACT BLD (09/24/2024 4:47 PM EDT) BILE ACIDS 6.8 0.0 - 10.0 umol/L TBH Comment: Performed at: [address] [id number] Mold Unloader: Mello Godoy MD, Phone: [phone] 09/24/2024 4:47 PM EDT 09/24/2024 4:47 PM EDT Narrative [facility] - 09/27/2024 12:16 AM EDT us Gaye Vázquez QUALITY ASSURANCE QA LAB TECHNICIAN [facility] Final Result Performing Organization Address [facility] Co de Phone Number [facility] * ALL THYROID STIM HORMONE (09/24/2024 4:47 PM EDT) Pathologist [facility] THYROID STIMULATING HORMONE 0.964 0.358 - 3.740 uIU/mL TB 09/24/2024 4:47 PM EDT 09/24/2024 4:47 PM EDT Narrative [facility] - 09/24/2024 5:57 PM EDT Gaye Vázquez NP [facility] Final Result Performing Organization Address [facility] de Phone Number [facility] * ALL HEPATITIS C AB (09/24/2024 4:47 PM EDT) [facility] HCV ANTIBODY Non Reactive Non Reactive [facility] Comment: HCV antibody alone does not differentiate between previously resolved infection and active infection. Equivocal and Reactive HCV antibody results should be followed up with an HCV RNA test to support the diagnosis of active HCV infection. Performed at: [address] [id number] Mold Unloader: Sheldon Polo PhD, Phone: [phone] 09/24/2024 4:47 PM EDT 09/24/2024 4:47 PM EDT Narrative [facility] - 09/26/2024 5:08 AM EDT Gaye Vázquez NP [facility] Final Result Performing Organization Address [facility] de Phone Number [facility] * (ABNORMAL) ALL CBC WITH AUTO DIFF (09/24/2024 4:47 PM EDT) Only the most recent of2 resultswithin the time period is included. [facility] TB WBC 9.8 4.0 - 11.0 10 [...] Narrative [facility] - 09/24/2024 5:11 PM EDT us Gaye Vázquez NP [facility] Final Result [facility] * (ABNORMAL) [facility] CMP (CMP) (FOR REMOTE [facility] USE) (09/19/2024 2:31 PM EDT) [...] 0.55 - 1.02 mg/dL TBH TBH EGFR-AF FAROESE >60 >=60 mL/min/1. 73m 2 TBH TBH EGFR-NON AF FAROESE >60 >=60 mL/min/1. 73m 2 TBH BUN [...] EDT Gaye Vázquez NP [facility] Final Result [facility] * US OB GROWTH (09/18/2024 4:30 PM EDT) Anatomical Region Laterality Modality Other 09/18/2024 4:30 PM EDT Narrative 09/18/2024 4:32 [place] [address] Ultrasound Report Signed Patient: GIANCARLO CELAYA MR#: [id number] : 1995 Acct:[id number] Age/Sex: 28 / F ADM Date: 09/18/24 Loc: US Attending Dr: Amalia Lilly D.O. Ordering Physician: Amalia Lilly D.O. Date of Service: 09/18/24 Procedure(s): US OB growth Accession Number(s): [id number] cc: Amalia Lilly D.O.; LUDY GRAFF [place] [address] Patient Name: GIANCARLO CELAYA MRN: [id number] date: 1995 Sex: F Assigned Patient Location: US Current Patient Location: US Accession/Order Number: [id number] Exam Date: 09/18/2024 16:23 Report Date: 09/18/2024 [...] Smith M.D. 09/18/2024 4:30 PM Dictation Location: [place] [address] Electronically authenticated by: [id number] Y Date: 09/18/2024 16:30 Dictated By: Wally Smith M.D. Signed By: 09/18/241631 DD/ 29 TD/TT: Tipple Oiler: Procedure Note Radiology, Radiologist, - 09/18/2024 [place] [address] Ultrasound Report Signed Patient: GIANCARLO CELAYA EMR#: [id number] : 1995Acct:[id number] Age/Sex: 28 / FADM Date: 09/18/24 Loc: US Attending Dr: Amalia Lilly D.O. Ordering Physician: Amalia Lilly D.O. Date of Service: 09/18/24 Procedure(s): US OB growth Accession Number(s): [id number] cc: Amalia Lilly D.O.; LUDY GRAFF [place] [address] Patient Name: GIANCARLO CELAYA MRN: [id number] date: 1995 Sex: F Assigned Patient Location: Current Patient Location: Accession/Order Number: [id number] Exam Date: 09/18/2024 16:23 Report Date: 09/18/2024 [...] Smith M.D. 09/18/2024 4:30 PM Dictation Location: [place] [address] Electronically authenticated by: [id number] Y Date: 6:30 Dictated By: Wally Smith M.D. Signed By:09/18/24 1632 DD/ 1630 TD/TT: Tipple Oiler: us Amaliaberto Murrayo DO [facility] Final Result * MLR HEMOGLOBIN A1C (08/20/2024 10:54 AM EDT) GLYCOHEMOGLOBIN A1C 4.7 4.5 - 6.2 % [facility] Comment: ADA RECOMMENDED LIMIT 4.0 - 6.0 ADA THERAPEUTIC TARGET < 7.0 ACTION SUGGESTED > 7.0 ESTIMATED AVERAGE GLUCOSE 88 mg/dL TB 08/20/2024 10:5 4 AM EDT 08/20/2024 10:54 AM EDT Narrative [facility] - 08/20/2024 11:40 AM EDT Gaye Vázquez NP [facility] Final Result [facility] * US OB limited 1+ [...] II, MD, PHD at 24-Jul-2024 12:32:57 AM [facility] Procedure Note Nikita Vasquez MD - [...] VASQUEZ II, MD, PHDat 24-Jul-2024 12:32:57 AM [facility] us Amalia Vijaya DO IMG OB US PROCEDURES Final Resul t from Last 3 Months Insurance [employer] MEDICAID [place] Care Teams Molecular Biologist Relationship Specialty Start Date End Date Unallocated, Noms Aidan, [place] [address] PCP - General Family Medicine 02/28/24
--- OUTSIDE RECORDS SUMMARY | 2024-10-16 19:38 | XMS_ITS | Encounter Summary ---
Author Organization [facility] Address [address] [place] [address] Care Team Providers Care Hosiery Repairer Name Role Phone Unallocated, Noms Provider Primary Care [facility] Encounter Details Date Type Department Care Team (Late st Contact Info) Description 10/16/2024 Bamboo flowsheet [facility] [address] [facility] [place] [address] Eleazar Lilly, DO [address] [place], [facility] Social History Tobacco Use Types [...] Routine [facility] [address] [place] [address] Eleazar Lilly, DO [address] [place], [place] [address] 10/29/2024 8:20 AM EDT Routine [facility] [address] [place] [address] Eleazar Lilly, DO [address] [facility] [place] [address] documented as of this encounter Visit Diagnoses Not on filedocumented in this encounter Care Teams Hosiery Repairer Relationship Specialty Start Date End Date Unallocated, Noms Aidan, [address] [place] [address] PCP - General Family Medicine 02/28/24 documented as of this encounter
--- OUTSIDE RECORDS SUMMARY | 2024-10-16 19:38 | XMS_ITS | Encounter Summary ---
Author Organization [facility] Address [address] [place] [address] Care Team Providers Care Factory Machine Computer Operator Name Role Phone Unallocated, Noms Provider Primary Care [facility] Encounter Details Date Type Department Care Team (Late st Contact Info) Description 03/23/2024 Abstract [facility] [address] [facility] [phone] Eleazar Lilly DO [address] [place] [address] [place], [facility] Social History Tobacco Use Types Packs/Day [...] EDT Routine [facility] [address] [facility] [phone] Eleazar Lilly DO [address] [place] [address] 10/29/2024 8:20 AM EDT Routine [facility] OB [address] [place] [address] Eleazar Lilly, DO [address] [facility] [place] [address] documented as of this encounter Visit Diagnoses Not on filedocumented in this encounter Care Teams Factory Machine Computer Operator Relationship Specialty Start Date End Date Unallocated, Noms Provider, [place] [address] PCP - General Family Medicine 02/28/24 documented as of this encounter
--- OUTSIDE RECORDS SUMMARY | 2024-10-16 19:38 | XMS_ITS | Clinical Summary ---
Author Organization [facility] Address [id number] [address] [place] [address] Care Team Providers Care Film Masker Name Role Phone Hima Silver MD Primary Care Provider [phone] Social History Tobacco Use Types Packs/Day Years [...] Medical Devices Not on file Care Teams Film Masker Relationship Specialty Start Date End Date Hima Silver MD [address] [place] [address] PCP - General Internal Medicine 09/14/18
--- OUTSIDE RECORDS SUMMARY | 2024-10-16 19:38 | XMS_ITS | Encounter Summary ---
Author Organization [facility] Address [address] [facility] [place] [address] Care Team Providers Care Plating And Point Assembly Supervisor Name Role Phone Unallocated, Noms Provider [facility] Encounter Details Date Type Department Care Team (Late st Contact Info) Description 10/16/2024 Clinisync Result Encounter NOMS External Department Unsolicited Aamlia Lilly, [facility] [address] [place], [place] [address] Social History Tobacco Use Types Packs/Day Years [...] [facility] B[facility] OB [address] [place] [address] Amalia Lilly DO [facility] [address] [place], [place] [address] 10/29/2024 8:20 AM EDT Routine [facility] OB [address] [place] [address] Amalia Lilly DO [address] [facility] [place] [address] documented as of this encounter Procedures Procedure Name Priority Date/Time Associated Diagnosis Comments US OB BPP W NON-STRESS 10/16/2024 4:19 PM EDT documented in this encounter Results * US OB BPP W NON-STRESS (10/16/2024 4:19 PM EDT) Anatomical Region Laterality Modality Other 10/16/2024 4:19 PM EDT Narrative 10/16/2024 4:21 PM EDT [address] [address] Ultrasound Report Signed Patient: GIANCARLO CELAYA MR#: [id number] : 1995 Acct:[id number] Age/Sex: 28 / F ADM Date: 10/16/24 Loc: US Attending Dr: Amalia Lilly D.O. Ordering Physician: Amalia Lilly D.O. Date of Service: 10/16/24 Procedure(s): US OB BPP w non-stress Accession Number(s): [id number] cc: Amalia Lilly D.O.; LUDY GRAFF [address] [address] Patient Name: GIANCARLO CELAYA MRN: [facility]:[id number] date: 1995 Sex: F Assigned Patient Location: [facility] Current Patient Location: Accession/Order Number: [id number] Exam Date: 10/16/2024 16:18 Report Date: 10/16/2024 16:19 At the request of: AMALIA LILLY DO Procedure: US OB BPP w non-stress Biophysical profile. Reason for exam: Knot of the umbilical cord. Comparison: BPP 10/09/2024. TECHNIQUE: Transabdominal imaging of the gravid uterus was obtained. FINDINGS: Health And Safety Instructor reports the BPP is 8 out of 8. BHAVANI is normal at 12.6 cm. heart rate 132 bpm. US/US OB BPP w non-stress IMPRESSION: BPP 8 out of 8. Impression dictated by: Celestino Vinson Jr., D.O. 10/16/2024 4:19 PM Dictation Location: [place] [address] Electronically authenticated by: [id number] Y Date: 10/16/2024 16:19 Dictated By: Celestino Vinson M.D. Signed By: 10/16/24 162 DD/ 161 TD/TT: Nursing Informatics Clinical Analyst: Procedure Note Radiology, Radiologist, MD - 10/16/2024 [place] [address] Ultrasound Report Signed Patient: GIANCARLO CELAYA EMR#: [id number] : 1995Acct:[id number] Age/Sex: 28 / FADM Date: 10/16/24 Loc: US Attending Dr: Amalia Lilly D.O. Ordering Physician: Amalia Lilly D.O. Date of Service: 10/16/24 Procedure(s): US OB BPP w non-stress Accession Number(s): [id number] cc: Amalia Lilly D.O.; LUDY GRAFF [place] [address] Patient Name: GIANCARLO CELAYA MRN: [facility]:[id number] date: 1995 Sex: F Assigned Patient Location: [facility] Current Patient Location: Accession/Order Number: [id number] Exam Date: 10/16/2024 16:18 Report Date: 10/16/2024 16:19 At the request of: AMALIA LILLY DO Procedure: US OB BPP w non-stress Biophysical profile. Reason for exam: Knot of the umbilical cord. Comparison: BPP 10/09/2024. TECHNIQUE: Transabdominal imaging of the gravid uterus was obtained. FINDINGS: Health And Safety Instructor reports the BPP is 8 out of 8. BHAVANI is normal at12.6 cm. heart rate 132 bpm. US/US OB BPP w non-stress IMPRESSION: BPP 8 out of 8. Impression dictated by: Celestino Vinson Jr., D.O. 10/16/2024 4:19 PM Dictation Location: [place] [address] Electronically authenticated by: [id number] Y Date: 6:19 Dictated By: Celestino Vinson M.D. Signed By:10/16/241 DD/ 18 TD/TT: Nursing Informatics Clinical Analyst: us Amalia Vijaya DO [facility] Final Result documented in this encounter Visit Diagnoses Not on filedocumented in this encounter Care Teams Plating And Point Assembly Supervisor Relationship Specialty Start Date End Date Unallocated, Noms Provider, [address] [place] [address] PCP - General Family Medicine 02/28/24 documented as of this encounter
--- OUTSIDE RECORDS SUMMARY | 2024-10-16 19:38 | XMS_ITS | Patient Health Record ---
Author Organization [facility] Address [address] [place] [address] Care Team Providers Care Returned Goods Inspector Name Role Phone Katie Monroe Primary Care Provider Ines Sauceda Unavailable [phone] Karthik Castro Unavailable [phone] Swapna Chris Unavailable [phone] Reason For Referral No Information Encounters Encounter Location Date Provider Diagnosis [facility] [address] [place] [address] 01/04/2024 Katie Monroe [facility] [address] [place] [address] 12/30/2023 Katie Monroe Necrosis of pulp K04.1 [...] Coverage Start Date Coverage End Date [employer] [place] DQ [address] [place] [address] [id number] GIANCARLO CELAYA Self - patient is the insured [employer] [facility] [place] BCBS [address] [place] [address] [id number] GIANCARLO CELAYA Self - patient is the insured 4
--- OUTSIDE RECORDS SUMMARY | 2024-10-16 19:38 | XMS_ITS | Encounter Summary ---
Author Organization [facility] Address [address] [facility] [place] [address] Care Team Providers Care Pianos And Organs Salesperson Name Role Phone Unallocated, Noms Provider Primary [facility] Encounter Details Date Type Department Care Team (Late st Contact Info) Description 10/14/2024 Clinisync Result Encounter NOMS External Department Unsolicited Eleazar Lilly, [facility] [place], [place] [phone] Social History Tobacco Use Types Packs/Day Years [...] Routine [facility] BCP [address] [place] [address] Eleazar Lilly DO [facility] [place], [place] [address] 10/29/2024 8:20 AM EDT Routine [facility] BCP OB [address] [place] [address] Eleazar Lilly, DO [address] [place] [address] [place] [address] documented as of this encounter Procedures Procedure Name Priority Date/Time Associated Diagnosis Comments AMNISURE Routine 10/14/2024 12:08 PM EDT TBH URINE MICROSCOPIC ONLY Routine 10/14/2024 12:00 PM EDT TBH UA (CLEAN/CATCH) MUSHROOM SPAWN MAKER/MICRO IF IND. Routine 10/14/2024 12:00 PM EDT documented in this encounter Results * AMNISURE (10/14/2024 12:08 PM EDT) TB AMNISURE NEGATIVE NEGATIVE TBH 10/14/2024 12:0 8 PM EDT 10/14/2024 12:17 PM EDT Narrative CLIN[facility] - 10/14/2024 12:32 PM EDT us Eleazar Lilly DO LAB BLOOD ORDERABLES Final Resul t CLINISYRI TB * (ABNORMAL) TBH URINE MICROSCOPIC ONLY (10/14/2024 12:00 PM EDT) TB WBC 20-50(A) NONE SEEN #/HPF TBH TBH [...] CLINISYNC - 10/14/2024 12:45 PM EDT us Eleazar Vijaya DO [facility] Final Result [facility]NC TBH * (ABNORMAL) TBH UA (CLEAN/CATCH) MUSHROOM SPAWN MAKER/MICRO IF IND. (10/14/2024 12:00 PM EDT) COLOR [...] Narrative CLIN[facility] - 10/14/2024 12:45 PM EDT Eleazar Torrezzio DO [facility] Final Result Performing Organization Address [facility]/ZIP Co de Phone Number CL[facility]ISYNC TBH documented in this encounter Visit Diagnoses Not on filedocumented in this encounter Care Teams Pianos And Organs Salesperson Relationship Specialty Start Date End Date Unallocated, Noms Provider, [address] [place] [address] PCP - General Family Medicine 02/28/24 documented as of this encounter
--- OUTSIDE RECORDS SUMMARY | 2024-10-16 19:38 | XMS_ITS | Encounter Summary ---
Author Organization [facility] Address [address] [facility] [place] [address] Care Team Providers Care Career Services Coordinator Name Role Phone Unallocated, Noms Provider [facility] Encounter Details Date Type Department Care Team (Late st Contact Info) Description 10/09/2024 Clinisync Result Encounter NOMS External Department Unsolicited Amalia Lilly, [facility] [place], [facility] Social History Tobacco Use Types Packs/Day Years [...] [place] [address] Amalia Lilly DO [facility] [place], [place] [address] 10/29/2024 8:20 AM EDT Routine [facility] BCP OB [address] [place] [address] Amalia Lilly DO [address] [facility] [place] [address] documented as of this encounter Procedures Procedure Name Priority Date/Time Associated Diagnosis Comments US OB BPP W NON-STRESS 10/09/2024 4:48 PM EDT documented in this encounter Results * US OB BPP W NON-STRESS (10/09/2024 4:48 PM EDT) Anatomical Region Laterality Modality Other 10/09/2024 4:48 PM EDT Narrative 10/09/2024 4:50 PM EDT [address] [address] Ultrasound Report Signed Patient: GIANCARLO CELAYA MR#: [id number] : 1995 Acct:[id number] Age/Sex: 28 / F ADM Date: 10/09/24 Loc: [facility] 250-[address]: Amalia Lilly D.O. Ordering Physician: Amalia Lilly D.O. Date of Service: 10/09/24 Procedure(s): US OB BPP w non-stress Accession Number(s): [id number] cc: Amalia Lilly D.O.; LUDY GRAFF [address] [address] Patient Name: GIANACRLO CELAYA MRN: [id number] date: 1995 Sex: F Assigned Patient Location: [facility] Current Patient Location: [facility] Accession/Order Number: [id number] Exam Date: 10/09/2024 16:46 Report Date: 10/09/2024 [...] Katz M.D. 10/09/2024 4:48 PM Dictation Location: [place] [address] Electronically authenticated by: [id number] Y Date: 10/09/2024 16:48 Dictated By: Ty Katz D.O. Signed By: 10/09/241649 DD/ 47 TD/TT: Diamond Sawer: Procedure Note Radiology, Radiologist, MD - 10/09/2024 [place] [address] Ultrasound Report Signed Patient: GIANCARLO CELAYA EMR#: [id number] : 1995Acct:[id number] Age/Sex: 28 / FADM Date: 10/09/24 Loc: [place] [address]: Amalia Lilly D.O. Ordering Physician: Amalia Lilly D.O. Date of Service: 10/09/24 Procedure(s): US OB BPP w non-stress Accession Number(s): [id number] cc: Amalia Lilly D.O.; LUDY GRAFF [place] [address] Patient Name: GIANCARLO CELAYA MRN: [facility]:[id number] date: 1995 Sex: F Assigned Patient Location: [facility] Current Patient Location: [facility] Accession/Order Number: [id number] Exam Date: 10/09/2024 16:46 Report Date: 10/09/2024 [...] Katz M.D. 10/09/2024 4:48 PM Dictation [facility] Electronically authenticated by: [id number] Y Date: 6:48 Dictated By: Ty Katz D.O. Signed By:10/09/240 DD/ TD/TT: Diamond Sawer: us Amalia Vijaya DO [facility] Final Result documented in this encounter Visit Diagnoses Not on filedocumented in this encounter Care Teams Career Services Coordinator Relationship Specialty Start Date End Date Unallocated, Noms Provider, [address] [place] [address] PCP - General Family Medicine 02/28/24 documented as of this encounter
--- OUTSIDE RECORDS SUMMARY | 2024-10-16 19:38 | XMS_ITS | Encounter Summary ---
Author Organization [facility] Address [address] [place] [address] Care Team Providers Care Glass Blower Helper Name Role Phone Unallocated, Noms Provider Primary Care [facility] Encounter Details Date Type Department Care Team (Late st Contact Info) Description 07/09/2024 Abstract [facility] BCP OB [address] [facility] [place] [phone] Eleazar Lilly DO [address] [place] [address] Social History Tobacco Use Types Packs/Day Years [...] AM EDT Routine [facility] BCP OB 102 [facility] [place] [address] Eleazar Lilly DO [address] [place] [address] 10/29/2024 8:20 AM EDT Routine [facility] BCP OB [address] [facility] [place] [address] Eleazar Lilly, DO [address] [facility] [place] [address] documented as of this encounter Visit Diagnoses Not on filedocumented in this encounter Care Teams Glass Blower Helper Relationship Specialty Start Date End Date Unallocated, Noms Provider, [place] [address] PCP - General Family Medicine 02/28/24 documented as of this encounter
--- OUTSIDE RECORDS SUMMARY | 2024-10-16 19:38 | XMS_ITS | Encounter Summary ---
Author Organization [facility] Address [address] [place] [address] Care Team Providers Care Welder Plasma Arc Name Role Phone Unallocated, Noms Provider Primary Care [facility] Encounter Details Date Type Department Care Team (Late st Contact Info) Description 03/23/2024 Abstract [facility] BCP OB [address] [facility] [place] [address] Eleazar Lilly DO [address] [place] [place], [facility] Social History Tobacco Use Types [...] AM EDT Routine [facility] BCP OB [address] [facility] [address] Eleazar Lilly DO [address] [place] [address] 10/29/2024 8:20 AM EDT Routine [facility]OM[facility] BCP OB [address] [facility] [address] Eleazar iLlly, DO [address] [facility] [place] [address] documented as of this encounter Visit Diagnoses Not on filedocumented in this encounter Care Teams Welder Plasma Arc Relationship Specialty Start Date End Date Unallocated, Noms Provider, [place] [address] PCP - General Family Medicine 02/28/24 documented as of this encounter
--- OUTSIDE RECORDS SUMMARY | 2024-10-16 19:38 | XMS_ITS | Encounter Summary ---
Author Organization [facility] Address [address] [facility] [place] [address] Care Team Providers Care A R Specialist Name Role Phone Unallocated, Noms Provider Primary Care [facility] Encounter Details Date Type Department Care Team (Late st Contact Info) Description 10/02/2024 Bamboo flowsheet [facility] BCP OB [address] [facility] [place] [address] Cheryl Baugh PA [address] [place] [address] Dr [place], [facility]11 Social History Tobacco Use Types Packs/Day [...] AM EDT Routine NOMS BCP OB [address] [facility] [place] [address] Eleazar Lilly, [address] [place], [place] [address] 10/29/2024 8:20 AM EDT Routine [facility] BCP OB [address] [facility] [place] [address] Eleazar Lilly, [address] [facility] [place] [address] documented as of this encounter Visit Diagnoses Not on filedocumented in this encounter Care Teams A R Specialist Relationship Specialty Start Date End Date Unallocated, Noms Provider, [place] [address] PCP - General Family Medicine 02/28/24 documented as of this encounter
--- OUTSIDE RECORDS SUMMARY | 2024-10-16 19:38 | XMS_ITS | Encounter Summary ---
Author Organization [facility] Address [address] [facility] [place] [address] Care Team Providers Care Fuel House Attendant Name Role Phone Unallocated, Noms Provider Primary Care [facility] Encounter Details Date Type Department Care Team (Late st Contact Info) Description 09/24/2024 Results Follow-Up [facility] BCP OB [address] [facility] [place] [phone] Nimco Mojica LPN [address] [facility] [place] [id number] Social History Tobacco Use Types Packs/Day Years [...] [facility] [address] Eleazar Lilly, DO [address] [place] [address] 10/29/2024 8:20 AM EDT Routine [facility] BCP OB [address] [facility] [address] Eleazar Lilly, DO [address] [place] [address] documented as of this encounter Visit Diagnoses Not on filedocumented in this encounter Care Teams Fuel House Attendant Relationship Specialty Start Date End Date Unallocated, Noms Provider, [address] [address] PCP - General Family Medicine 02/28/24 documented as of this encounter
--- OUTSIDE RECORDS SUMMARY | 2024-10-16 19:38 | XMS_ITS | Encounter Summary ---
Author Organization [facility] Address [address] [place] [address] Care Team Providers Care Family Consumer Science Fcs Teacher Name Role Phone Unallocated, Noms Provider Primary Care [facility] Encounter Details Date Type Department Care Team (Late st Contact Info) Description 04/23/2024 Abstract [facility] BCP OB [address] [facility] [place] [place] [phone] Eleazar Lilly DO [address] [place], [place] [address] Social History Tobacco Use Types Packs/Day Years [...] AM EDT Routine [facility] BCP OB [address] [facility] [place] [address] Eleazar Lilly DO [address] [place] [address] 10/29/2024 8:20 AM EDT Routine [facility]OM[facility] BCP OB [address] [facility] [place] [place] [address] Eleazar Lilly, DO [address] [facility] [place] [address] documented as of this encounter Visit Diagnoses Not on filedocumented in this encounter Care Teams Family Consumer Science Fcs Teacher Relationship Specialty Start Date End Date Unallocated, Noms Provider, [place] [address] PCP - General Family Medicine 02/28/24 documented as of this encounter
--- OUTSIDE RECORDS SUMMARY | 2024-10-16 19:38 | XMS_ITS | Encounter Summary ---
Author Organization [facility] Address [address] [facility] [place] [address] Care Team Providers Care Telecom Sales Consultant Name Role Phone LuizCorwin olivarez Primary Care Provider [phone] Unallocated, Noms Provider Primary Care [facility] Encounter Details Date Type Department Care Team (Late st Contact Info) Description 02/21/2024 Orders Only [facility] BCP OB [address] [place] [address] Eleazar Lilly DO [facility] [place], [place] [phone] Left ovarian cyst Social History Tobacco Use [...] [facility]OMS BCP OB [address] [place] [address] Eleazar Lilly DO [address] [place] [address] 10/29/2024 8:20 AM EDT Routine [facility]OM[facility] BCP OB [address] [facility] [place] [address] Eleazar Lilly DO [address] [facility] [place] [address] Scheduled Orders Name Type Priority Associated Diagnoses Orde r Schedule hCG, quantitative Lab Routine Left ovarian cyst Expected: 02/21/2024 (Approximate), Expires: 02/20/2025 documented as of this encounter Visit Diagnoses Diagnosis Left ovarian cyst Other and unspecified ovarian cyst documented in this encounter Care Teams Telecom Sales Consultant Relationship Specialty Start Date End Date Corwin Dee DO [address] [place] [address] PCP - General Family Medicine 09/14/22 02/27/24 Unallocated, Noms Provider, [place] [address] PCP - General Family Medicine 02/28/24 documented as of this encounter
--- OUTSIDE RECORDS SUMMARY | 2024-10-16 19:38 | XMS_ITS | Encounter Summary ---
Author Organization [facility] Address [address] [facility] [place] [address] Care Team Providers Care Biologist Name Role Phone Unallocated, Noms Provider [facility] Encounter Details Date Type Department Care Team (Late st Contact Info) Description 10/02/2024 Clinisync Result Encounter NOMS External Department Unsolicited Amalia Lilly, [facility] [place], [place] [phone] Social History Tobacco Use Types Packs/Day Years [...] EDT Routine NOMS BCP OB [address] [place] [address] Amalia Lilly DO [facility] [place], [place] [address] 10/29/2024 8:20 AM EDT Routine NOMS BCP OB [address] [place] [address] Amalia Lilly DO [address] [facility] [place] [address] documented as of this encounter Procedures Procedure Name Priority Date/Time Associated Diagnosis Comments US OB BPP W NON-STRESS 10/02/2024 12:43 PM EDT documented in this encounter Results * US OB BPP W NON-STRESS (10/02/2024 12:43 PM EDT) Anatomical Region Laterality Modality Other 10/02/2024 12:4 3 PM EDT Narrative 10/02/2024 12:46 PM EDT [address] [address] Ultrasound Report Signed Patient: GIANCARLO CELAYA MR#: [id number] : 1995 Acct:[id number] Age/Sex: 28 / F ADM Date: 10/02/24 Loc: US Attending Dr: Amalia Lilly D.O. Ordering Physician: Amalia Lilly D.O. Date of Service: 10/02/24 Procedure(s): US OB BPP w non-stress Accession Number(s): [id number] cc: Amalia Lilly D.O.; LUDY GRAFF [address] [address] Patient Name: GIANCARLO CELAYA MRN: [id number] date: 1995 Sex: F Assigned Patient Location: [facility] Current Patient Location: [place] Accession/Order Number: [id number] Exam Date: 10/02/2024 12:41 Report Date: 10/02/2024 [...] Anand M.D. 10/02/2024 12:43 PM Dictation Location: [place] [address] Electronically authenticated by: [id number] Y Date: 10/02/2024 12:43 Dictated By: Yaneli Anand M.D. Signed By: 10/02/24 1246 DD/ 1243 TD/TT: Grooving Machine Operator: Procedure Note Radiology, Radiologist, MD - 10/02/2024 [place] [address] Ultrasound Report Signed Patient: GIANCARLO CELAYA EMR#: [id number] : 1995Acct:[id number] Age/Sex: Date: 10/02/24 Loc: US Attending Dr: Amalia Lilly D.O. Ordering Physician: Amalia Lilly D.O. Date of Service: 10/02/24 Procedure(s): US OB BPP w non-stress Accession Number(s): [id number] cc: Amalia Lilly D.O.; LUDY GRAFF [place] [id number] Patient Name: GIANCARLO CELAYA MRN: [id number] date: 1995 Sex: F Assigned Patient Location: [facility] Current Patient Location: [place] Accession/Order Number: [id number] Exam Date: 10/02/2024 12:41 Report Date: 10/02/2024 [...] Anand M.D. 10/02/2024 12:43 PM Dictation Location: [place] [address] Electronically authenticated by: [id number] Y Date: 2:43 Dictated By: Yaneli Anand M.D. Signed By:10/02/24 1246 DD/ 1243 TD/TT: Grooving Machine Operator: Amalia Lilly DO [facility] Final Result documented in this encounter Visit Diagnoses Not on filedocumented in this encounter Care Teams Biologist Relationship Specialty Start Date End Date Unallocated, Noms Provider, [place] [address] PCP - General Family Medicine 02/28/24 documented as of this encounter
--- OUTSIDE RECORDS SUMMARY | 2024-10-16 19:38 | XMS_ITS | Encounter Summary ---
Author Organization [facility] Address [address] [place] [address] Care Team Providers Care Body Stylist Name Role Phone Unallocated, Noms Provider Primary Care [facility] Encounter Details Date Type Department Care Team (Late st Contact Info) Description 05/30/2024 Abstract [facility] BCP OB [address] [facility] [place] [address] Eleazar Lilly DO [address] [place] [address] Social History Tobacco Use Types Packs/Day Years [...] AM EDT Routine NOMS BCP OB [address] [place] [address] Eleazar Lilly DO [address] [place] [address] 10/29/2024 8:20 AM EDT Routine NOMS BCP OB [address] [facility] [place] [address] Eleazar Lilly, DO [address] [facility] [place] [address] documented as of this encounter Visit Diagnoses Not on filedocumented in this encounter Care Teams Body Stylist Relationship Specialty Start Date End Date Unallocated, Noms Provider, [place] [address] PCP - General Family Medicine 02/28/24 documented as of this encounter
--- OUTSIDE RECORDS SUMMARY | 2024-10-16 19:39 | XMS_ITS | Encounter Summary ---
Author Organization [facility] Address [address] [facility] [place] [address] Care Team Providers Care Credit Reporter Name Role Phone Unallocated, Noms Provider [facility] Encounter Details Date Type Department Care Team (Late st Contact Info) Description 10/10/2024 Telephone [facility]OM[facility] BCP OB [address] [place] [address] Eleazar Lilly, DO [address] [place], [place] [address] Social History Tobacco Use Types Packs/Day Years [...] Routine NOMS BCP OB [address] [place] [address] Eleazar Lilly, DO [address] [place] [address] 10/29/2024 8:20 AM EDT Routine [facility]OM[facility] BCP OB [address] [facility] [place] [address] Eleazar Lilly, DO [address] [place] [address] documented as of this encounter Visit Diagnoses Not on filedocumented in this encounter Care Teams Credit Reporter Relationship Specialty Start Date End Date Unallocated, Noms Provider, [address] [place] [address] PCP - General Family Medicine 02/28/24 documented as of this encounter
--- OUTSIDE RECORDS SUMMARY | 2024-10-16 19:39 | XMS_ITS | Encounter Summary ---
Author Organization [facility] Address [address] [facility] [place] [address] Care Team Providers Care Fire Control Officer Name Role Phone Unallocated, Noms Provider Primary Care [facility] Encounter Details Date Type Department Care Team (Late st Contact Info) Description 10/12/2024 Telephone [facility]OM[facility] BCP OB [address] [facility] [place] [phone] Shalonda Anderson MA Social History Tobacco Use [...] AM EDT Routine NOM[facility] BCP OB 102 [facility] [place] [address] Eleazar Lilly, DO [address] [place] [address] 10/29/2024 8:20 AM EDT Routine NOMS BCP OB 102 [facility] [place] [address] Eleazar Lilly, DO [address] [place] [address] documented as of this encounter Visit Diagnoses Not on filedocumented in this encounter Care Teams Fire Control Officer Relationship Specialty Start Date End Date Unallocated, Noms Provider, [place] [address] PCP - General Family Medicine 02/28/24 documented as of this encounter
== END 2024-10-16 19:36 | disposition home or self-care (01) ==
LOC: LAB 19:35
PROVIDERS: PCP Nurse Practitioner Family; Visit Provider Obstetrics & Gynecology
DX: Z34.93 Encounter for supervision of normal pregnancy, unspecified, third trimester (principal); Z3A.36 36 weeks gestation of pregnancy
CPT/HCPCS: 87081

== ENCOUNTER 2024-10-19 07:33 | Outpatient (OUT) | payer MEDICAID, SELFPAY ==
--- OUTSIDE RECORDS SUMMARY | 2010-07-27 16:35 | XMS_ITS | Encounter Summary ---
Author Organization [facility] Address [address] [place] [address] Care Team Providers Care Research And Development Technician Name Role Phone Unavailable Primary Care Provider Unavailabl e Encounter Details Date Type Department Care Team (Late st Contact Info) Description 07/27/2010 4:35 PM EDT Hospital Encounter [place] [phone] Social History Tobacco Use Types Packs/Day Years [...]
--- OUTSIDE RECORDS SUMMARY | 2024-06-11 09:30 | XMS_ITS ---
Author Organization [facility] Address [address] [place] [address] Care Team Providers Care Lease Administration Analyst Name Role Phone Katie Monroe Primary Care Provider Ines Sauceda Unavailable REASON FOR VISIT FILLING Encounters Encounter Location Date Provider Diagnosis [address] [place] [address] 06/11/2024 Ines Hodges Plan Of Treatment No Information Progress Notes * GIANCARLO CELAYA EDOB:1995 (28 yo F)Acc No.[id number]:06/11/2024 Patient: Juan Pablo DAVIS GIANCARLO Peterson Provider: Nagi HODGES DDS :1995 A ge:28 Y S ex:Female Date:06/11/2024 Address:[address] [place] [address], [id number] Pcp:Katie Monroe Subjective: * Chief Complaints: * 1 . FILLING. * Medical History: Objective: * Vitals: Assessment: Plan: * Treatment: * Images: * Electronic signature of Elsie Hodges DDS on 10/19/2024 at 07:35 AM EDT Sign off status: Pending * Provider: Nagi HODGES DDS Date: 0 06/11/2024 Generated for Printi ng/Faxing/eTransmitting on: 0 10/19/2024 07:35 AM EDT
--- OUTSIDE RECORDS SUMMARY | 2024-08-03 10:30 | XMS_ITS ---
Author Organization [facility] Address [address] [place] [address] Care Team Providers Care Sap Treasury Consultant Name Role Phone Katie Monroe Primary Care Provider [phone] Ines Sauceda Unavailable REASON FOR VISIT FILLING Encounters Encounter Location Date Provider Diagnosis [address] [place] [address] 08/03/2024 Ines Hodges Plan Of Treatment No Information Progress Notes * GIANCARLO CELAYA EDOB:1995 (28 yo F)Acc No.[id number]:08/03/2024 Patient: Juan Pablo DAVIS GIANCARLO Peterson Provider: Nagi HODGES DDS :1995 A ge:28 Y S ex:Female Date:08/03/2024 Address:[address] [place] [address], [id number] Pcp:Katie Monroe Subjective: * Chief Complaints: * 1 . FILLING. * Medical History: Objective: * Vitals: Assessment: Plan: * Treatment: * Images: * Electronic signature of Elsie Hodges DDS on 10/19/2024 at 07:36 AM EDT Sign off status: Pending * Provider: Nagi HODGES DDS Date: 0 08/03/2024 Generated for Printi ng/Faxing/eTransmitting on: 0 10/19/2024 07:36 AM EDT
--- OUTSIDE RECORDS SUMMARY | 2024-10-16 10:10 | XMS_ITS | Encounter Summary ---
Author Organization [facility] Address [address] [facility] [place] [address] Care Team Providers Care Maintenance Man Name Role Phone Unallocated, Noms Provider Primary Care [facility] Reason for Visit * Reason Comments Routine Visit Encounter Details Date Type Department Care Team ([facility] Contact Info) Description 10/16/2024 10:10 AM EDT Routine [facility] BCP OB [address] [facility] [place] [address] Eleazar Lilly, DO [address] [place] [address] [place] [address] Third trimester ([facility]); 36 weeks gestation of ([facility]) Social History Tobacco Use Types Packs/Day Years [...] this encounter Progress Notes * Yaneli Xavier, APPLIED COMPUTER SCIENCE PROFESSOR - 10/16/2024 10:10 AM EDT Reason for [...] nursing note reviewed. Exam conducted with a legal analyst present. Vitals: Estimated body mass index is [...] AM EDT Routine NOMS BCP OB [address] [facility] [place] [phone] Eleazar Lilly DO [address] [place], [place] [address] [address] 10/29/2024 8:20 AM EDT Routine NOM[facility] BCP OB [address] [facility] [place] [address] Eleazar Lilly DO [address] [place] [address] [place] [address] Scheduled Orders Name Type Priority Associated Diagnoses Orde r Schedule CULTURE, GROUP B STREP WITH SUSCEPTIBLITY Lab Routine Third trimester ([facility]) Expected: 10/16/2024, Expires: 10/16/2025 documented as of this encounter Procedures Procedure Name Priority Date/Time Associated Diagnosis Comments POCT URINALYSIS DIPSTICK Routine 10/16/2024 10:47 AM EDT Third trimester ([facility]) 36 weeks gestation of ([facility]) documented in this encounter [...] Urine 10/16/2024 10:4 7 AM EDT Eleazar Lilly DO POINT OF CARE TEST ENTER/EDIT OR DERABLES Final Result documented in this encounter Visit Diagnoses Diagnosis Third trimester ([facility]) state, incidental 36 weeks gestation of ([facility]) documented in this encounter Care Teams Maintenance Man Relationship Specialty Start Date End Date Unallocated, Noms Provider, [place] [address] PCP - General Family Medicine 02/28/24 documented as of this encounter
--- OUTSIDE RECORDS SUMMARY | 2024-10-19 07:35 | XMS_ITS | Encounter Summary ---
Author Organization [facility] Address [address] [place] [address] Care Team Providers Care Analysis Evaluator Name Role Phone Unallocated, Noms Provider Primary Care [facility] Encounter Details Date Type Department Care Team (Late st Contact Info) Description 03/23/2024 Abstract [facility] BCP OB 102 [facility] [place] [phone] Eleazar Lilly DO [address] [place] [address] [place], [facility] Social History Tobacco Use Types Packs/Day Years [...] AM EDT Routine [facility]OM[facility] BCP OB 102 [facility] [place] [phone] Eleazar Lilly DO [address] [place] [address] 10/29/2024 8:20 AM EDT Routine NOMS BCP OB [address] [facility] [place] [address] Eleazar Lilly, DO [address] [facility] [place] [address] documented as of this encounter Visit Diagnoses Not on filedocumented in this encounter Care Teams Analysis Evaluator Relationship Specialty Start Date End Date Unallocated, Noms Provider, [place] [address] PCP - General Family Medicine 02/28/24 documented as of this encounter
--- OUTSIDE RECORDS SUMMARY | 2024-10-19 07:35 | XMS_ITS | Encounter Summary ---
Author Organization [facility] Address [address] [place] [address] Care Team Providers Care Plate Molder Name Role Phone Unallocated, Noms Provider Primary Care [facility] Encounter Details Date Type Department Care Team (Late st Contact Info) Description 03/17/2024 Abstract [facility] BCP OB [address] [facility] [place] [phone] Eleazar Lilly DO [address] [place] [address] [place], [place] [address] Social History Tobacco Use Types Packs/Day Years [...] AM EDT Routine NOMS BCP OB [address] [place] [phone] Eleazar Lilly DO [address] [place] [address] 10/29/2024 8:20 AM EDT Routine NOMS BCP OB [address] [facility] [place] [address] Eleazar Lilly, DO [address] [facility] [place] [address] documented as of this encounter Visit Diagnoses Not on filedocumented in this encounter Care Teams Plate Molder Relationship Specialty Start Date End Date Unallocated, Noms Provider, [place] [address] PCP - General Family Medicine 02/28/24 documented as of this encounter
--- OUTSIDE RECORDS SUMMARY | 2024-10-19 07:35 | XMS_ITS | Encounter Summary ---
Author Organization [facility] Address [address] [facility] [place] [address] Care Team Providers Care Food Adviser Name Role Phone Unallocated, Noms Provider Primary Care [facility] Encounter Details Date Type Department Care Team (Late st Contact Info) Description 10/16/2024 Clinisync Result Encounter NOMS External Department Unsolicited Amalia Lilly, [facility] [place], [place] [id number] Social History Tobacco Use Types Packs/Day Years [...] Routine N[facility]S BCP [address] [place] [address] Amalia Lilly DO [facility] [place], [place] [phone] 10/29/2024 8:20 AM EDT Routine [facility] BCP OB [address] [place] [address] Amalia Lilly DO [address] [facility] [place] [address] documented as of this encounter Procedures Procedure Name Priority Date/Time Associated Diagnosis Comments US OB BPP W NON-STRESS 10/16/2024 4:19 PM EDT documented in this encounter Results * US OB BPP W NON-STRESS (10/16/2024 4:19 PM EDT) Anatomical Region Laterality Modality Other 10/16/2024 4:19 PM EDT Narrative 10/16/2024 4:21 PM EDT [address] [address] Ultrasound Report Signed Patient: GIANCARLO CELAYA MR#: [id number] : 1995 Acct:[id number] Age/Sex: 28 / F ADM Date: 10/16/24 Loc: US Attending Dr: Amalia Lilly D.O. Ordering Physician: Amalia Lilly D.O. Date of Service: 10/16/24 Procedure(s): US OB BPP w non-stress Accession Number(s): [id number] cc: Amalia Lilly D.O.; LUDY GRAFF [address] [address] Patient Name: GIANCARLO CELAYA MRN: [facility]:[id number] date: 1995 Sex: F Assigned Patient Location: [facility] Current Patient Location: Accession/Order Number: [id number] Exam Date: 10/16/2024 16:18 Report Date: 10/16/2024 16:19 At the request of: AMALIA LILLY DO Procedure: US OB BPP w non-stress Biophysical profile. Reason for exam: Knot of the umbilical cord. Comparison: BPP 10/09/2024. TECHNIQUE: Transabdominal imaging of the gravid uterus was obtained. FINDINGS: Manager Managing reports the BPP is 8 out of 8. BHAVANI is normal at 12.6 cm. heart rate 132 bpm. US/US OB BPP w non-stress IMPRESSION: BPP 8 out of 8. Impression dictated by: Celestino Vinson Jr., D.O. 10/16/2024 4:19 PM Dictation Location: [place] [address] Electronically authenticated by: [id number] Y Date: 10/16/2024 16:19 Dictated By: Celestino Vinson M.D. Signed By: 10/16/24 162 DD/ 161 TD/TT: Machine Shop Specialist: Procedure Note Radiology, Radiologist, MD - 10/16/2024 [place] [address] Ultrasound Report Signed Patient: GIANCARLO CELAYA EMR#: [id number] : 1995Acct:[id number] Age/Sex: 28 / FADM Date: 10/16/24 Loc: US Attending Dr: Amalia Lilly D.O. Ordering Physician: Amalia Lilly D.O. Date of Service: 10/16/24 Procedure(s): US OB BPP w non-stress Accession Number(s): [id number] cc: Amalia Lilly D.O.; LUDY GRAFF [place] [address] Patient Name: GIANCARLO CELAYA MRN: [facility]:[id number] date: 1995 Sex: F Assigned Patient Location: [facility] Current Patient Location: Accession/Order Number: [id number] Exam Date: 10/16/2024 16:18 Report Date: 10/16/2024 16:19 At the request of: AMALIA LILLY DO Procedure: US OB BPP w non-stress Biophysical profile. Reason for exam: Knot of the umbilical cord. Comparison: BPP 10/09/2024. TECHNIQUE: Transabdominal imaging of the gravid uterus was obtained. FINDINGS: Manager Managing reports the BPP is 8 out of 8. BHAVANI is normal at12.6 cm. heart rate 132 bpm. US/US OB BPP w non-stress IMPRESSION: BPP 8 out of 8. Impression dictated by: Celestino Vinson Jr., D.O. 10/16/2024 4:19 PM Dictation Location: [place] [address] Electronically authenticated by: [id number] Y Date: 6:19 Dictated By: Celestino Vinson M.D. Signed By:10/16/241 DD/ 18 TD/TT: Machine Shop Specialist: us Amalia Vijaya DO [facility] Final Result documented in this encounter Visit Diagnoses Not on filedocumented in this encounter Care Teams Food Adviser Relationship Specialty Start Date End Date Unallocated, Noms Provider, [address] [place] [address] PCP - General Family Medicine 02/28/24 documented as of this encounter
--- OUTSIDE RECORDS SUMMARY | 2024-10-19 07:35 | XMS_ITS | Encounter Summary ---
Author Organization [facility] Address [address] [place] [address] Care Team Providers Care Account Manager Trainee Name Role Phone Unallocated, Noms Provider Primary Care [facility] Encounter Details Date Type Department Care Team (Late st Contact Info) Description 03/23/2024 Abstract [facility] BCP OB [address] [facility] [phone] Eleazar Lilly DO [address] [place], [facility] Social History Tobacco Use Types Packs/Day [...] BCP OB [address] [facility] [address] Eleazar Lilly DO [address] [place] [address] 10/29/2024 8:20 AM EDT Routine [facility]OMS BCP OB [address] [facility] [place] [phone] Eleazar Lilly, DO [address] [facility] [place] [address] documented as of this encounter Visit Diagnoses Not on filedocumented in this encounter Care Teams Account Manager Trainee Relationship Specialty Start Date End Date Unallocated, Noms Provider, [place] [address] PCP - General Family Medicine 02/28/24 documented as of this encounter
--- OUTSIDE RECORDS SUMMARY | 2024-10-19 07:35 | XMS_ITS | Encounter Summary ---
Author Organization [facility] Address [address] [facility] [place] [address] Care Team Providers Care Lead Mobile Developer Name Role Phone Unallocated, Noms Provider Primary Care [facility] Encounter Details Date Type Department Care Team (Late st Contact Info) Description 09/24/2024 Results Follow-Up [facility] BCP OB [address] [facility] [place] [place] [phone] Nimco Mojica LPN [address] [facility] [employer] [place] [phone] Social History Tobacco Use Types Packs/Day Years [...] SOUTH[facility] [address] Eleazar Lilly, DO [address] [place] [address] 10/29/2024 8:20 AM EDT Routine NOMS BCP OB [address] [facility] [address] Eleazar Lilly, DO [address] [place] [address] documented as of this encounter Visit Diagnoses Not on filedocumented in this encounter Care Teams Lead Mobile Developer Relationship Specialty Start Date End Date Unallocated, Noms Provider, [address] [place] [address] PCP - General Family Medicine 02/28/24 documented as of this encounter
--- OUTSIDE RECORDS SUMMARY | 2024-10-19 07:35 | XMS_ITS | Encounter Summary ---
Author Organization [facility] Address [address] [facility] [place] [address] Care Team Providers Care Manager Generation Name Role Phone LuizCorwin olivarez Primary Care Provider Unallocated, Noms Provider Primary Care [facility] Encounter Details Date Type Department Care Team (Late st Contact Info) Description 02/21/2024 Orders Only [facility] BCP OB [address] [place] [address] Eleazar Lilly DO [facility] [place] [place], [place] [phone] Left ovarian cyst Social History Tobacco Use [...] Routine NOMS BCP OB [address] [place] [address] Eleazar Lilly DO [address] [place] [address] 10/29/2024 8:20 AM EDT Routine NOMS BCP OB [address] [facility] [place] [address] Eleazar Lilly DO [address] [facility] [place] [address] Scheduled Orders Name Type Priority Associated Diagnoses Orde r Schedule hCG, quantitative Lab Routine Left ovarian cyst Expected: 02/21/2024 (Approximate), Expires: 02/20/2025 documented as of this encounter Visit Diagnoses Diagnosis Left ovarian cyst Other and unspecified ovarian cyst documented in this encounter Care Teams Manager Generation Relationship Specialty Start Date End Date Corwin Dee DO [address] [place] [address] PCP - General Family Medicine 09/14/22 02/27/24 Unallocated, Noms Provider, [place] [address] PCP - General Family Medicine 02/28/24 documented as of this encounter
--- OUTSIDE RECORDS SUMMARY | 2024-10-19 07:36 | XMS_ITS | Encounter Summary ---
Author Organization [facility] Address [address] [place] [address] Care Team Providers Care Secure Software Assessor Name Role Phone Unallocated, Noms Provider Primary Care [facility] Encounter Details Date Type Department Care Team (Late st Contact Info) Description 05/30/2024 Abstract [facility] BCP OB [address] [facility] [place] [phone] Eleazar Lilly DO [address] [place], [place] [phone] Social History Tobacco Use Types Packs/Day Years [...] OB [address] [facility] [place] [place] [address] Eleazar Lilly DO [address] [place] [address] 10/29/2024 8:20 AM EDT Routine NOMS BCP OB [address] [facility] [place] [phone] Eleazar Lilly, DO [address] [facility] [place] [address] documented as of this encounter Visit Diagnoses Not on filedocumented in this encounter Care Teams Secure Software Assessor Relationship Specialty Start Date End Date Unallocated, Noms Provider, [place] [address] PCP - General Family Medicine 02/28/24 documented as of this encounter
--- OUTSIDE RECORDS SUMMARY | 2024-10-19 07:36 | XMS_ITS | Patient Health Record ---
Author Organization [facility] Address [address] [place] [address] Care Team Providers Care Manager Treasury Name Role Phone Katie Monroe Primary Care Provider [phone] Unavailable Karthik Castro Unavailable [phone] Swapna Chris Unavailable [phone] Reason For Referral No Information Encounters Encounter Location Date Provider Diagnosis [facility] [address] [place] [address] 01/04/2024 Katie Monroe [facility] [address] [facility] [place] [address] 12/30/2023 Katie Monroe Necrosis of pulp K04.1 [...] Coverage Start Date Coverage End Date [employer] [place] [employer] [address] [place] [address] [id number] GIANCARLO CELAYA Self - patient is the insured 4 [employer] [facility] [place] [employer] [address] [place] [address] [id number] GIANCARLO CELAYA Self - patient is the insured 4
--- OUTSIDE RECORDS SUMMARY | 2024-10-19 07:36 | XMS_ITS | Encounter Summary ---
Author Organization [facility] Address [address] [facility] [place] [address] Care Team Providers Care Brewery Pumper Name Role Phone Unallocated, Noms Provider Primary Care [facility] Encounter Details Date Type Department Care Team (Late st Contact Info) Description 06/08/2024 Orders Only NOMS BCP OB [address] [place] [address] Nga Cormier [address] [place] [address] Social History Tobacco Use Types Packs/Day Years [...] 9:00 AM EDT Routine NOMS BCP OB [facility] [place] [address] Eleazar Lilly DO [facility] [place], [place] [address] 10/29/2024 8:20 AM EDT Routine NOMS BCP [facility] [place] [address] Eleazar Lilly, [address] [facility] [address] [place], [place] [address] documented as of this encounter Procedures Procedure Name Priority Date/Time Associated Diagnosis Comments PAP SMEAR Routine 05/28/2024 12:00 AM EST documented in this encounter Results * Pap Smear (05/28/2024 12:00 AM EST) Swab Cervical swab / Unknown us Cheryl [facility] ORDERABLES Final Re sult EXTERNAL LAB documented in this encounter Visit Diagnoses Not on filedocumented in this encounter Care Teams Brewery Pumper Relationship Specialty Start Date End Date Unallocated, Noms Provider, [place] [address] PCP - General Family Medicine 02/28/24 documented as of this encounter
--- OUTSIDE RECORDS SUMMARY | 2024-10-19 07:36 | XMS_ITS | Encounter Summary ---
Author Organization [facility] Address [address] [place] [address] Care Team Providers Care Gas Appliance Mechanic Name Role Phone Unallocated, Noms Provider Primary Care [facility] Encounter Details Date Type Department Care Team (Late st Contact Info) Description 04/23/2024 Abstract [facility] BCP OB [address] [facility] [place] [phone] Eleazar Lilly DO [address] [place], [place] [phone] Social History Tobacco Use Types Packs/Day Years [...] AM EDT Routine [facility] BCP OB [address] [facility] [place] [phone] Eleazar Lilly DO [address] [place] [address] 10/29/2024 8:20 AM EDT Routine NOMS BCP OB [address] [facility] [place] [phone] Eleazar Lilly, DO [address] [facility] [place] [address] documented as of this encounter Visit Diagnoses Not on filedocumented in this encounter Care Teams Gas Appliance Mechanic Relationship Specialty Start Date End Date Unallocated, Noms Provider, [place] [address] PCP - General Family Medicine 02/28/24 documented as of this encounter
--- OUTSIDE RECORDS SUMMARY | 2024-10-19 07:36 | XMS_ITS | Encounter Summary ---
Author Organization [facility] Address [address] [place] [address] Care Team Providers Care Decision Analyst Name Role Phone Unallocated, Noms Provider Primary Care [facility] Encounter Details Date Type Department Care Team (Late st Contact Info) Description 10/16/2024 Bamboo flowsheet [facility] BCP OB [address] [facility] [address] Eleazar Lilly, DO [address] [place], [facility] Social History Tobacco Use Types [...] NOMS BCP OB [address] [place] [address] Eleazar Lilly, DO [address] [place] [place], [place] [address] 10/29/2024 8:20 AM EDT Routine NOMS BCP OB [address] [facility] [place] [address] Eleazar Lilly, DO [address] [facility] [place] [address] documented as of this encounter Visit Diagnoses Not on filedocumented in this encounter Care Teams Decision Analyst Relationship Specialty Start Date End Date Unallocated, Noms Aidan, [address] [place] [address] PCP - General Family Medicine 02/28/24 documented as of this encounter
--- OUTSIDE RECORDS SUMMARY | 2024-10-19 07:36 | XMS_ITS | Encounter Summary ---
Author Organization [facility] Address [address] [place] [address] Care Team Providers Care Sporting Goods Sales Associate Name Role Phone Unallocated, Noms Provider Primary Care [facility] Encounter Details Date Type Department Care Team (Late st Contact Info) Description 07/09/2024 Abstract [facility] BCP OB [address] [facility] [place] [phone] Eleazar Lilly DO [address] [place] [address] Social History Tobacco Use Types Packs/Day Years [...] EDT Routine NOMS BCP OB [address] [facility] [place] [phone] Eleazar Lilly DO [address] [place] [address] 10/29/2024 8:20 AM EDT Routine NOMS BCP OB [address] [place] [address] Eleazar Lilly, DO [address] [facility] [place] [address] documented as of this encounter Visit Diagnoses Not on filedocumented in this encounter Care Teams Sporting Goods Sales Associate Relationship Specialty Start Date End Date Unallocated, Noms Provider, [place] [address] PCP - General Family Medicine 02/28/24 documented as of this encounter
--- OUTSIDE RECORDS SUMMARY | 2024-10-19 07:36 | XMS_ITS | Clinical Summary ---
Author Organization [facility] Address [address] [place] [address] Care Team Providers Care Dredgemaster Name Role Phone Unavailable Primary Care Provider [...] Plan of Treatment Not on file Insurance [place] BCBS
--- OUTSIDE RECORDS SUMMARY | 2024-10-19 07:36 | XMS_ITS | Encounter Summary ---
Author Organization [facility] Address [address] [facility] [place] [address] Care Team Providers Care Resident Services Coordinator Name Role Phone Unallocated, Noms Provider [facility] Encounter Details Date Type Department Care Team (Late st Contact Info) Description 10/14/2024 Clinisync Result Encounter NOMS External Department Unsolicited Eleazar Lilly, [facility] [place] [place], [place] [phone] Social History Tobacco Use Types Packs/Day Years [...] NOMS BCP OB [address] [place] [address] Eleazar Lilly DO [facility] [place] [place], [place] [phone] 10/29/2024 8:20 AM EDT Routine NOMS BCP OB [address] [place] [address] Eleazar Lilly, DO [address] [place] [address] [place] [address] documented as of this encounter Procedures Procedure Name Priority Date/Time Associated Diagnosis Comments AMNISURE Routine 10/14/2024 12:08 PM EDT [facility] URINE MICROSCOPIC ONLY Routine 10/14/2024 12:00 PM EDT [facility] UA (CLEAN/CATCH) SORTING LIVESTOCK WORKER/MICRO IF IND. Routine 10/14/2024 12:00 PM EDT documented in this encounter Results * AMNISURE (10/14/2024 12:08 PM EDT) TB AMNISURE NEGATIVE NEGATIVE [facility] 10/14/2024 12:0 8 PM EDT 10/14/2024 12:17 PM EDT Narrative [facility] - 10/14/2024 12:32 PM EDT us Eleazar Lilly DO LAB BLOOD ORDERABLES Final Resul t [facility] TB * (ABNORMAL) [facility]H URINE MICROSCOPIC ONLY [...] [facility] - 10/14/2024 12:45 PM EDT us Elaezar Vijaya DO [facility] Final Result [facility] * (ABNORMAL) TBH UA (CLEAN/CATCH) SORTING LIVESTOCK WORKER/MICRO IF IND. (10/14/2024 12:00 PM EDT) COLOR [...] DO [facility] Final Result Performing Organization Address [facility]/ZIP Co de Phone Number [facility] documented in this encounter Visit Diagnoses Not on filedocumented in this encounter Care Teams Resident Services Coordinator Relationship Specialty Start Date End Date Unallocated, Noms Provider, [address] [place] [address] PCP - General Family Medicine 02/28/24 documented as of this encounter
--- OUTSIDE RECORDS SUMMARY | 2024-10-19 07:36 | XMS_ITS | Clinical Summary ---
Author Organization [facility] Address [address] [place] [address] Care Team Providers Care Capital Project Engineer Name Role Phone Unallocated, Noms Provider Primary Care Provi kamille Allergies No known active allergies Medications fluticasone (Flonase) 50 MCG/ACT nasal spray USE 1 SPRAY IN EACH NOSTRIL TWICE A DAY 05/18/19 25 Active ondansetron ODT (Zofran-ODT) 4 MG disintegrating tabletIndications:N ausea and vomiting in ([facility]) Take 1 tablet (4 mg) by mouth every 6 (six) hours if needed for nausea or vomiting for up to 30 doses 30 tablet 3 09/28/19 25 Active ondansetron ODT (Zofran-ODT) 4 MG disintegrating tabletIndications:N ausea and vomiting in ([facility]) Take 1 tablet (4 mg) by mouth [...] Date Diagnosed Date 12 weeks gestation of ([facility]) 2023 Second trimester ([facility]) 04/30/2024 Nausea and vomiting in ([facility]) 04/16 Estimated Date of Delivery Comme nts Yes 11/09/2024 Based on Ultraso und Encounters Date Type Department Care Team Description 10/16/2024 10:10 AM EDT Routine [facility] [address] [place] [address] Amalia Lilly, DO Third trimester ([facility]); 36 weeks gestation of ([facility]) 10/16/2024 Clinisync Result Encounter [facility] External Department Unsolicited Amalia Lilly, DO 10/16/2024 Bamboo flowsheet [facility] [address] [place] [address] Amalia Lilly, DO 10/14/2024 Clinisync Result Encounter [facility] External Department Unsolicited Amalia Lilly, DO 10/12/2024 Telephone [facility] OB [facility] [place] [address] Shalonda Anderson MA 10/10/2024 Telephone [facility] [address] [place] [address] Amalia Lilly, DO 10/09/2024 Clinisync Result Encounter [facility]OMS External Department Unsolicited Amalia Lilly, DO 10/02/2024 9:10 AM EDT Routine [facility] OB [address] [place] [address] Cheryl Baugh PA Third trimester ([facility]); 34 weeks gestation of ([facility]); BV (bacterial vaginosis) 10/02/2024 Clinisync Result Encounter [facility] External Department Unsolicited Amalia Lilly, DO 10/02/2024 Bamboo flowsheet [facility] [address] [place] [address] Cheryl Baugh PA 09/27/[address] [facility] [address] [place] [address] Nimco Mojica, GRETCHEN Nausea and vomiting in ([facility]) 09/25/2024 Clinisync Result Encounter [facility] External Department Unsolicited Amalia Lilly, DO 09/24/2024 Clinisync Result Encounter [facility]OM[facility] External Department Unsolicited Gaye Vázquez, TEST BORER HELPER 09/24/2024 Results Follow-Up [facility] OB [address] [place] [address] [place] [address] Nimco Mojica, GRETCHEN 09/24/2024 [address] [facility] [address] [place] [address] Nimco Mojica, BUFFING LINE SET UP WORKER 09/21/2024 Telephone [facility] [address] [place] [address] Monica Ayala LPN 09/21/20[address] [facility] [address] [place] [address] Shalonda Anderson MA 09/19/2024 Clinisync Result Encounter [facility]OMS External Department Unsolicited Gaye Vázquez, TEST BORER HELPER 09/19/[address] [facility] [address] [place] [address] Shalonda Anderson MA 09/18/2024 Clinisync Result Encounter [facility]OMS External Department Unsolicited Amalia Lilly, 09/13/2024 10:30 AM EDT Routine [facility] OB [address] [place] [address] [place] [address] Amalia Lilly, Third trimester ([facility]); 31 weeks gestation of ([facility]); size inconsistent with dates ([facility]) 09/13/2024 Bamboo flowsheet [facility] OB [address] [place] [address] Amalia Lilly, 09/03/2024 Telephone [facility] [address] [place] [address] Nga Cormier MA 08/20/2024 9:50 AM EDT Routine [facility] [address] [place] [address] Amalia Lilly, Third trimester ([facility]) 08/20/2024 Clinisync Result Encounter [facility]OMS External Department Unsolicited Gaye Vázquez NP 08/20/2024 Bamboo flowsheet [facility] [address] [place] [address] Amalia Lilly, 07/23/2024 10:20 AM EDT Routine [facility] [address] [place] [address] Cheryl Baugh PA 24 weeks gestation of ([facility]); Second trimester ([facility]); Diabetes mellitus screening 07/23/2024 9:00 AM EDT Ancillary Procedure [facility] [address] [place] [address] Low-lying placenta ([facility]) from Last 3 Months Family History Medical [...] 9:00 AM EDT Routine [facility] [address] [place] [address] [place] [address] Amalia Lilly, DO [address] [place], [place] [address] [address] 10/29/2024 8:20 AM EDT Routine [facility] [address] [place] [address] [place] [address] Amalia Lilly, DO [address] [facility] [place] [address] Health Maintenance Due Date Last Done Comments Influenza Vaccine (Season Ended) 2025 Procedures Procedure Name Priority Date/Time Associated Diagnosis Comments US OB BPP W NON-STRESS 10/16/2024 4:19 PM EDT POCT URINALYSIS DIPSTICK Routine 10/16/2024 10:47 AM EDT Third trimester ([facility]) 36 weeks gestation of ([facility]) AMNISURE Routine 10/14/2024 12:08 PM EDT [facility] URINE MICROSCOPIC ONLY Routine 10/14/2024 12:00 PM EDT [facility] UA (CLEAN/CATCH) CASH RECONCILIATION SPECIALIST/MICRO IF IND. Routine 10/14/2024 12:00 PM EDT [...] EDT [facility] CMP (CMP) (FOR REMOTE [facility] USE) Routine 09/19/2024 2:31 PM EDT US OB GROWTH 09/18/2024 4:30 PM EDT POCT URINALYSIS DIPSTICK Routine 09/13/2024 11:01 AM EDT Third trimester ([facility]) MLR HEMOGLOBIN A1C Routine 08/20/2024 10 :54 AM EDT ALL CBC WITH AUTO DIFF Routine 08/20/2024 10:54 AM EDT POCT URINALYSIS DIPSTICK Routine 08/20/2024 10:05 AM EDT Third trimester ([facility]) POCT URINALYSIS DIPSTICK Routine 07/23/2024 10:01 AM EDT 24 weeks gestation of ([facility]) US OB LIMITED 1+ FETUSES Routine 07/23/2024 9:37 AM EDT Low-lying placenta ([facility]) from Last 3 Months Results * US OB BPP W NON-STRESS (10/16/2024 4:19 PM EDT) Only the most recent of4 resultswithin the time period is included. Anatomical Region Laterality Modality Other 10/16/2024 4:19 PM EDT Narrative 10/16/2024 4:21 [place] [address] Ultrasound Report Signed Patient: GIANCARLO CELAYA MR#: [id number] : 1995 Acct:[id number] Age/Sex: 28 / F ADM Date: 10/16/24 Loc: US Attending Dr: Amalia Lilly D.O. Ordering Physician: Amalia Lilly D.O. Date of Service: 10/16/24 Procedure(s): US OB BPP w non-stress Accession Number(s): [id number] cc: Amalia Lilly D.O.; LUDY GRAFF [place] [id number] Patient Name: GIANCARLO CELAYA MRN: [id number] date: 1995 Sex: F Assigned Patient Location: [facility] Current Patient Location: Accession/Order Number: [id number] Exam Date: 10/16/2024 16:18 Report Date: 10/16/2024 16:19 At the request of: AMALIA LILLY DO Procedure: US OB BPP w non-stress Biophysical profile. Reason for exam: Knot of the umbilical cord. Comparison: BPP 10/09/2024. TECHNIQUE: Transabdominal imaging of the gravid uterus was obtained. FINDINGS: Barrel Bridge Assembler reports the BPP is 8 out of 8. BHAVANI is normal at 12.6 cm. heart rate 132 bpm. US/US OB BPP w non-stress IMPRESSION: BPP 8 out of 8. Impression dictated by: Celestino Vinson Jr., D.O. 10/16/2024 4:19 PM Dictation Location: [place] [address] Electronically authenticated by: [id number] Y Date: 10/16/2024 16:19 Dictated By: Celestino Vinson M.D. Signed By: 10/16/24 1626 DD/ 161 TD/TT: Rating Specialist: Procedure Note Radiology, Radiologist, - 10/16/[address] [address] Ultrasound Report Signed Patient: GIANCARLO CELAYA EMR#: [id number] : 1995Acct:[id number] Age/Sex: 28 / FADM Date: 10/16/24 Loc: US Attending Dr: Amalia Lilly D.O. Ordering Physician: Amalia Lilly D.O. Date of Service: 10/16/24 Procedure(s): US OB BPP w non-stress Accession Number(s): [id number] cc: Amalia Lilly D.O.; LUDY GRAFF [place] [address] Patient Name: GIANCARLO CELAYA MRN: [id number] date: 1995 Sex: F Assigned Patient Location: [facility] Current Patient Location: Accession/Order Number: [id number] Exam Date: 10/16/2024 16:18 Report Date: 10/16/2024 16:19 At the request of: AMALIA LILLY DO Procedure: US OB BPP w non-stress Biophysical profile. Reason for exam: Knot of the umbilical cord. Comparison: BPP 10/09/2024. TECHNIQUE: Transabdominal imaging of the gravid uterus was obtained. FINDINGS: Barrel Bridge Assembler reports the BPP is 8 out of 8. BHAVANI is normal at12.6 cm. heart rate 132 bpm. US/US OB BPP w non-stress IMPRESSION: BPP 8 out of 8. Impression dictated by: Celestino Vinson Jr., D.O. 10/16/2024 4:19 PM Dictation Location: [place] [address] Electronically authenticated by: [id number] Y Date: 6:19 Dictated By: Celestino Vinson M.D. Signed By:10/16/24 1621 DD/ 161 TD/TT: Rating Specialist: us Amalia Lilly DO [facility] Final Result * (ABNORMAL) POCT urinalysis dipstick manually resulted (10/16/2024 10:47 AM EDT) Only the most recent of4 resultswithin the time period is included. Pathologist [facility] Color, UA Yellow Clarity, UA Clear Glucose, [...] Positive Urine 10/16/2024 10:4 7 AM EDT us Amalia Vijaya DO POINT OF CARE TEST ENTER/EDIT OR DERABLES Final Result * AMNISURE (10/14/2024 12:08 PM EDT) Pathologist [facility] AMNISURE NEGATIVE NEGATIVE [facility] 10/14/2024 12:0 8 PM EDT 10/14/2024 12:17 PM EDT Narrative [facility] - 10/14/2024 12:32 PM EDT us Amalia Vijaya DO LAB BLOOD ORDERABLES Final Resul t [facility] TB * (ABNORMAL) [facility] URINE MICROSCOPIC ONLY (10/14/2024 12:00 PM EDT) [facility] WBC 20-50(A) NONE SEEN #/HPF TBH TBH [...] EDT Amalia Vijaya DO [facility] Final Result [facility] * (ABNORMAL) [facility] UA (CLEAN/CATCH) CASH RECONCILIATION SPECIALIST/MICRO IF IND. (10/14/2024 12:00 PM EDT) COLOR [...] DO [facility] Final Result Performing Organization Address City/[facility]/ZIP Co de Phone Number [facility] * [facility] BILE ACIDS FRACT BLD (09/24/2024 4:47 PM EDT) BILE ACIDS 6.8 0.0 - 10.0 umol/L [facility] Comment: Performed at: [address] [id number] [employer] Developer: Mello Godoy MD, Phone: [phone] 09/24/2024 4:47 PM EDT 09/24/2024 4:47 PM EDT Narrative [facility] - 09/27/2024 12:16 AM EDT Gaye Vázquez NP [facility] Final Result Performing Organization Address [facility]/ZIP Co de Phone Number [facility] * ALL THYROID STIM HORMONE (09/24/2024 4:47 PM EDT) THYROID STIMULATING HORMONE 0.964 0.358 - 3.740 uIU/mL [facility] 09/24/2024 4:47 PM EDT 09/24/2024 4:47 PM EDT Narrative [facility] - 09/24/2024 5:57 PM EDT Gaye Vázquez NP [facility] Final Result Performing Organization Address [facility] Phone Number [facility] * ALL HEPATITIS C AB (09/24/2024 4:47 PM EDT) HCV ANTIBODY Non Reactive Non Reactive [facility] Comment: HCV antibody alone does not differentiate between previously resolved infection and active infection. Equivocal and Reactive HCV antibody results should be followed up with an HCV RNA test to support the diagnosis of active HCV infection. Performed at: [address] [id number] [employer] Developer: Sheldon Polo PhD, Phone: [phone] 09/24/2024 4:47 PM EDT 09/24/2024 4:47 PM EDT Narrative [facility] - 09/26/2024 5:08 AM EDT Gaye Vázquez NP [facility] Final Result Performing Organization Address [facility] Co de Phone Number [facility] * (ABNORMAL) ALL CBC WITH AUTO DIFF (09/24/2024 4:47 PM EDT) Only the most recent of2 resultswithin the time period is included. [facility] TB WBC 9.8 4.0 - 11.0 10 [...] (ABNORMAL) [facility] CMP (CMP) (FOR REMOTE [facility] USE) (09/19/2024 2:31 PM EDT) SODIUM 138 136 - 145 mmol/L [facility] POTASSIUM 3.7 3.5 - 5.1 mmol/L [facility] CHLORIDE 104 98 - 107 mmol/L [facility] CARBON DIOXIDE 25.1 21.0 - 32.0 mmol/L [facility] ANION GAP 12.6 [facility] GLUCOSE 101 74 - 106 mg/dL [facility] BLOOD UREA NITROGEN 7.0 7.0 - 18.0 mg/dL [facility] CREATININE 0.60 0.55 - 1.02 mg/dL [facility] TBH EGFR-AF TRINIDADIAN >60 >=60 mL/min/1. 73m 2 TBH TBH EGFR-NON AF TRINIDADIAN >60 >=60 mL/min/1. 73m 2 [facility] BUN [...] PM EDT Narrative 09/18/2024 4:32 [place] [address] Ultrasound Report Signed Patient: GIANCARLO CELAYA MR#: [id number] : 1995 Acct:[id number] Age/Sex: 28 / F ADM Date: 09/18/24 Loc: US Attending Dr: Amalia Lilly D.O. Ordering Physician: Amalia Lilly D.O. Date of Service: 09/18/24 Procedure(s): US OB growth Accession Number(s): [id number] cc: Amalia Lilly D.O.; LUDY GRAFF [place] [address] Patient Name: GIANCARLO CELAYA MRN: [id number] date: 1995 Sex: F Assigned Patient Location: Current Patient Location: Accession/Order Number: [id number] Exam Date: 09/18/2024 16:23 Report Date: 09/18/2024 [...] Smith M.D. 09/18/2024 4:30 PM Dictation Location: [place] [address] Electronically authenticated by: [id number] Y Date: 09/18/2024 16:30 Dictated By: Wally Smith M.D. Signed By: 09/18/24 1632 DD/ 1630 TD/TT: Rating Specialist: Procedure Note Radiology, Radiologist, - 09/18/2024 [place] [address] Ultrasound Report Signed Patient: GIANCARLO CELAYA EMR#: [id number] : 1995Acct:[id number] Age/Sex: 28 / FADM Date: 09/18/24 Loc: US Attending Dr: Amalia Lilly D.O. Ordering Physician: Amalia Lilly D.O. Date of Service: 09/18/24 Procedure(s): US OB growth Accession Number(s): [id number] cc: Amalia Lilly D.O.; LUDY GRAFF [place] [address] Patient Name: GIANCARLO CELAYA MRN: [id number] date: 1995 Sex: F Assigned Patient Location: US Current Patient Location: US Accession/Order Number: [id number] Exam Date: 09/18/2024 16:23 Report Date: 09/18/2024 [...] Smith M.D. 09/18/2024 4:30 PM Dictation [facility] Electronically authenticated by: [id number] Y Date: 6:30 Dictated By: Wally Smith M.D. Signed By:09/18/24 1632 DD/ 1630 TD/TT: Rating Specialist: Amalia Lilly DO [facility] Final Result * MLR HEMOGLOBIN A1C (08/20/2024 10:54 AM EDT) GLYCOHEMOGLOBIN A1C 4.7 4.5 - 6.2 % [facility] Comment: ADA RECOMMENDED LIMIT 4.0 - 6.0 ADA THERAPEUTIC TARGET < 7.0 ACTION SUGGESTED > 7.0 ESTIMATED AVERAGE GLUCOSE 88 mg/dL TB 08/20/2024 10:5 4 AM EDT 08/20/2024 10:54 AM EDT Narrative [facility] - 08/20/2024 11:40 AM EDT Gaye Vázquez NP [facility] Final Result [facility] * US OB limited 1+ fetuses (07/23/2024 [...] II, MD, PHD at 24-Jul-2024 12:32:57 AM [facility] Procedure Note Nikita Vasquez MD - [...] VASQUEZ II, MD, PHDat 24-Jul-2024 12:32:57 AM [facility] us Amalia Lilly DO IM OB US PROCEDURES Final Resul t from Last 3 Months Insurance [facility] MEDICAID [place] Care Teams Capital Project Engineer Relationship Specialty Start Date End Date Unallocated, Noms Provider, [address] [place] [address] PCP - General Family Medicine 02/28/24
--- OUTSIDE RECORDS SUMMARY | 2024-10-19 07:37 | XMS_ITS | Encounter Summary ---
Author Organization [facility] Address [address] [facility] [place] [address] Care Team Providers Care Surgical Aide Name Role Phone Unallocated, Noms Provider [facility] Encounter Details Date Type Department Care Team (Late st Contact Info) Description 10/10/2024 Telephone [facility] [address] [place] [address] Eleazar Lilly, DO [address] [place], [place] [address] Social History Tobacco Use Types Packs/Day Years [...] Routine [facility] OB [address] [place] [address] Eleazar Lilly, DO [address] [place] [address] 10/29/2024 8:20 AM EDT Routine [facility] [address] [place] [address] Eleazar Lilly, DO [address] [place] [address] documented as of this encounter Visit Diagnoses Not on filedocumented in this encounter Care Teams Surgical Aide Relationship Specialty Start Date End Date Unallocated, Noms Provider, [address] [place] [address] PCP - General Family Medicine 02/28/24 documented as of this encounter
--- OUTSIDE RECORDS SUMMARY | 2024-10-19 07:37 | XMS_ITS | Encounter Summary ---
Author Organization [facility] Address [address] [place] [place] [address] Care Team Providers Care Dowel Setting Machine Operator Name Role Phone Unallocated, Noms Provider Primary Care Provi [facility] Encounter Details Date Type Department Care Team (Late st Contact Info) Description 10/12/2024 Telephone [facility] OB [address] [facility] [place] [phone] Shalonda Anderson MA Social History Tobacco Use [...] AM EDT Routine [facility] [address] [facility] [address] Eleazar Lilly, DO [address] [place] [address] 10/29/2024 8:20 AM EDT Routine [facility] OB [address] [place] [address] Eleazar Lilly, DO [address] [place] [address] documented as of this encounter Visit Diagnoses Not on filedocumented in this encounter Care Teams Dowel Setting Machine Operator Relationship Specialty Start Date End Date Unallocated, Noms Provider, [place] [address] PCP - General Family Medicine 02/28/24 documented as of this encounter
--- OUTSIDE RECORDS SUMMARY | 2024-10-19 07:37 | XMS_ITS | Clinical Summary ---
Author Organization [facility] Address [id number] [address] [place] [address] Care Team Providers Care Security Incident Response Specialist Name Role Phone Hima Silver MD Primary Care Provider [phone] Social History Tobacco Use Types Packs/Day Years [...] Medical Devices Not on file Care Teams Security Incident Response Specialist Relationship Specialty Start Date End Date Hima Silver MD [address] [place] [address] PCP - General Internal Medicine 09/14/18
--- OUTSIDE RECORDS SUMMARY | 2024-10-19 07:37 | XMS_ITS | Encounter Summary ---
Author Organization [facility] Address [address] [facility] [place] [address] Care Team Providers Care Photographer Helper Name Role Phone Unallocated, Noms Provider [facility] Encounter Details Date Type Department Care Team (Late st Contact Info) Description 10/09/2024 Clinisync Result Encounter NOMS External Department Unsolicited Amalia Lilly, [facility] [place], [facility] Social History Tobacco Use Types Packs/Day [...] Routine [facility] BCP OB [address] [place] [address] Amalia Lilly DO [facility] [address] [place], [place] [address] 10/29/2024 8:20 AM EDT Routine [facility] OB [address] [place] [address] Amalia Lilly DO [address] [facility] [place] [address] documented as of this encounter Procedures Procedure Name Priority Date/Time Associated Diagnosis Comments US OB BPP W NON-STRESS 10/09/2024 4:48 PM EDT documented in this encounter Results * US OB BPP W NON-STRESS (10/09/2024 4:48 PM EDT) Anatomical Region Laterality Modality Other 10/09/2024 4:48 PM EDT Narrative 10/09/2024 4:50 PM EDT [address] [address] Ultrasound Report Signed Patient: GIANCARLO CELAYA MR#: [id number] : 1995 Acct:[id number] Age/Sex: 28 / F ADM Date: 10/09/24 Loc: [facility] 250-[address]: Amalia Lilly D.O. Ordering Physician: Amalia Lilly D.O. Date of Service: 10/09/24 Procedure(s): US OB BPP w non-stress Accession Number(s): [id number] cc: Amalia Lilly D.O.; LUDY GRAFF [address] [address] Patient Name: GIANCARLO CELAYA MRN: [id number] date: 1995 Sex: F Assigned Patient Location: [facility] Current Patient Location: [facility] Accession/Order Number: [id number] Exam Date: 10/09/2024 16:46 Report Date: 10/09/2024 [...] Katz M.D. 10/09/2024 4:48 PM Dictation Location: [place] [address] Electronically authenticated by: [id number] Y Date: 10/09/2024 16:48 Dictated By: Ty Katz D.O. Signed By: 10/09/241649 DD/ 47 TD/TT: Customs Officer: Procedure Note Radiology, Radiologist, MD - 10/09/2024 [place] [address] Ultrasound Report Signed Patient: GIANCARLO CELAYA EMR#: [id number] : 1995Acct:[id number] Age/Sex: 28 / FADM Date: 10/09/24 Loc: [place] [address]: Amalia Lilly D.O. Ordering Physician: Amalia Lilly D.O. Date of Service: 10/09/24 Procedure(s): US OB BPP w non-stress Accession Number(s): [id number] cc: Amalia Lilly D.O.; LUDY GRAFF [place] [address] Patient Name: GIANCARLO CELAYA MRN: [facility]:[id number] date: 1995 Sex: F Assigned Patient Location: [facility] Current Patient Location: [facility] Accession/Order Number: [id number] Exam Date: 10/09/2024 16:46 Report Date: 10/09/2024 [...] Katz M.D. 10/09/2024 4:48 PM Dictation [facility] Electron[facility] authenticated by: [id number] Y Date: 6:48 Dictated By: Ty Katz D.O. Signed By:10/09/240 DD/ TD/TT: Customs Officer: us Amalia Vijaya DO [facility] Final Result documented in this encounter Visit Diagnoses Not on filedocumented in this encounter Care Teams Photographer Helper Relationship Specialty Start Date End Date Unallocated, Noms Provider, [address] [place] [address] PCP - General Family Medicine 02/28/24 documented as of this encounter
[2024-10-19 07:38] VITALS: BP 118/77; PULSE 87
--- OUTSIDE RECORDS SUMMARY | 2024-10-19 07:38 | XMS_ITS | CCD ---
Author Organization [facility] Care Team Providers Care Principal Quality Engineer Name Role Phone TALON VERAS Unavailable Unavailable [...] Unavailable Corwin Dee DO Primary Care Provider [phone] Unallocated , [place] Provider Primary Care Provi kamille Troy ESTEVEZRUG LAYERAna Attending Carley vailable Schlumbohm PA-C, Susana Dickerson Primary Care U navailable Troy SANITARIAN-RUG LAYER, Ana Serra Attending Carley vailable Schlumbohm PA-C, [...] Susana Dickerson Primary Care U navailable Troy SANITARIAN-RUG LAYER, Ana Serra Attending Carley vailable Schlumbohm PA-C, Susana Dickerson Primary Care U navailable VIJAYA, ELEAZAR Attending Unavailable VIJAYA, ELEAZAR Referring Unavailable AMAURI, CHERYL Attending Unavailable VIJAYA, ELEAZAR Attending Unavailable VIJAYA, ELEAZAR Attending Unavailable AMAURI, CHERYL Attending Unavailable VIJAYA, ELEAZAR Attending Unavailable VIJAYA, ELEAZAR Attending Unavailable VIJAYA, ELEAZAR Attending Unavailable VIJAYA, ELEAZAR Attending Unavailable AMAURI, CHERYL Attending Unavailable Medications Current Medications Medication [...] propionate 0.05 mg/actuat metered dose nasal spray (20 sources) Corticosteroid Start: 05-18-2024 take 1 spray(s) [...] 07/23/2024 Discontinued metroNIDAZOLE 0.0075 mg/mg vaginal gel (13 sources) Nitroimidazole Antimicrobial Start: 10-02-2024 End: 10-16-2024 metroNIDAZOLE (Metrogel) 0.75 % vaginal gel Indications: BV (bacterial vaginosis) Insert into the vagina Daily for 5 days 70 g 10/02/2024 10/16/2024 Discontinued (Therapy completed) Start: 10-31-2018 End: 2018 take 1 tablet [...] Start: 05-21-2019 take 1 capsule by mo [facility] three times daily as needed for cough [...] [34 weeks gestation of ] 10-02-2024 Episodic Residual codes; unclassified (2 sources) Gestation period, 36 weeks; Translations: [36 weeks gestation of ] 10-16-2024 Episodic Spondylosis; intervertebral disc disorders; other back [...] Facility US OB BPP W NON-STRESS on 10-16-2024 [place] [address] Ultrasound Report Signed Patient: GIANCARLO CELAYA MR#: [id number] : 1995 Acct:[id number] Age/Sex: 28 / F ADM Date: 10/16/24 Loc: US Attending Dr: Eleazar Lilly D.O. Ordering Physician: Eleazar Lilly D.O. Date of Service: 10/16/24 Procedure(s): US OB BPP w non-stress Accession Number(s): [id number] cc: Eleazar Lilly D.O.; EVELYN VU [place] [address] Patient Name: GIANCARLO CELAYA MRN: [id number] date: 1995 Sex: F Assigned Patient Location: [facility] Current Patient Location: Accession/Order Number: [id number] Exam Date: 10/16/2024 16:18 Report Date: 10/16/2024 16:19 At the request of: ELEAZAR LILLY DO Procedure: US OB BPP w non-stress Biophysical profile. Reason for exam: Knot of the umbilical cord. Comparison: BPP 10/09/2024. TECHNIQUE: Transabdominal imaging of the gravid uterus was obtained. FINDINGS: Collar Trimmer reports the BPP is 8 out of 8. BHAVANI is normal at 12.6 cm. heart rate 132 bpm. US/US OB BPP w non-stress IMPRESSION: BPP 8 out of 8. Impression dictated by: Celestino Vinson Jr., D.O. 10/16/2024 4:19 PM Dictation Location: [place] [address] Electronically authenticated by: [id number] Y Date: 10/16/2024 16:19 Dictated By: Celestino Vinson M.D. Signed By: 10/16/24 1621 DD/ 18 TD/TT: Dip Painter: [facility] Radiology, Radiologist, - 10/16/2024 [place] [address] Ultrasound Report Signed Patient: GIANCARLO CELAYA MR#: [id number] : 1995 Acct:[id number] Age/Sex: 28 / F ADM Date: 10/16/24 Loc: US Attending Dr: Eleazar Lilly D.O. Ordering Physician: Eleazar Lilly D.O. Date of Service: 10/16/24 Procedure(s): US OB BPP w non-stress Accession Number(s): [id number] cc: Eleazar Lilly D.O.; EVELYN VU [place] [address] Patient Name: GIANCARLO CELAYA MRN: [facility]:[id number] date: 1995 Sex: F Assigned Patient Location: [facility] Current Patient Location: Accession/Order Number: [id number] Exam Date: 10/16/2024 16:18 Report Date: 10/16/2024 16:19 At the request of: ELEAZAR LILLY DO Procedure: US OB BPP w non-stress Biophysical profile. Reason for exam: Knot of the umbilical cord. Comparison: BPP 10/09/2024. TECHNIQUE: Transabdominal imaging of the gravid uterus was obtained. FINDINGS: Collar Trimmer reports the BPP is 8 out of 8. BHAVANI is normal at 12.6 cm. heart rate 132 bpm. US/US OB BPP w non-stress IMPRESSION: BPP 8 out of 8. Impression dictated by: Celsetino Vinson Jr., D.O. 10/16/2024 4:19 PM Dictation Location: [place] [address] Electronically authenticated by: [id number] Y Date: 10/16/2024 16:19 Dictated By: Celestino Vinson M.D. Signed By: 10/16/24 1621 DD/ 1619 TD/TT: Dip Painter: [facility] Radiology Study observation (narrative) [facility] US OB BPP W NON-STRESS Ordered By: Radiologist Radiology on 10-16-2024 [facility] Work Phone: Urinalysis macro (dipstick) panel (U)on 10-16-2024 Bilirubin, UA Positive Negative - 4(70) +++ mg/dL [facility] Blood, UA Negative Negative - 50 Fuad/mcL [facility] Clarity, UA Clear [facility] Color, UA Yellow [facility] Glucose, UA Negative Negative - 2000(110) ++++ mg/dL [facility] Comment on above: small Interpretation and review of laboratory results Abnormal [facility] Ketones, UA Negative Negative - 160(16) ++++ mg/dL [facility] Leukocytes, UA Negative Negative - 500+++ Sandie/mcL [facility] Nitrite, UA Negative Negative - Positive [facility] pH, UA 6 5 - 9 [facility] Protein, UA Positive Negative - 2000(20) ++++ mg/dL [facility] Comment on above: 30 Spec Grav, UA 1.03 1 - 1.03 [facility] Urobilinogen, UA 0.2 0.2 - 12 mg/dL [facility] AMNISUREon 10-14-2024 [facility] AMNISURE Negative NEGATIVE [facility] No Panel Informationon 10-14 [facility] UA (CLEAN/CATCH) [employer]/YVONNE RO IF IND.on 10-14-2024 BILIRUBIN URINE Negative NEGATIVE [facility] BLOOD URINE Negative NEGATIVE [facility] Clarity (U) SL CLOUDY CLEAR [facility] Color (U) LT. YELLOW YELLOW [facility] GLUCOSE URINE UA Negative NEGATIVE mg/dL [facility] Interpretation and review of laboratory results Abnormal [facility] Ketones Ql (U) Negative NEGATIVE mg/dL [facility] Leukocyte esterase Test strip Ql (U) MODERATE Abnormal NEGATIVE [facility] NITRITE URINE Negative NEGATIVE [facility] pH (U) 7.0 [pH] 5.0 - 9.0 [facility] Protein (U) [Mass/Vol] 30 mg/dL Abnormal NEG/TRACE [facility] SPECIFIC GRAVITY URINE 1.020 1.005 - 1.025 [facility] URINE MICROSCOPIC INDICATED YES [facility] UROBILINOGEN URINE 2.0 EU/dL Abnormal 0.2 - 1.0 EU/dL [facility] OB BPP W NON-STRESS on 10-02-2024 [place] [address] Ultrasound Report Signed Patient: GIANCARLO CELAYA MR#: [id number] : 1995 Acct:[id number] Age/Sex: 28 / F ADM Date: 10/02/24 Loc: US Attending Dr: Eleazar Lilly D.O. Ordering Physician: Eleazar Lilly D.O. Date of Service: 10/02/24 Procedure(s): US OB BPP w non-stress Accession Number(s): [id number] cc: Eleazar Lilly D.O.; EVELYN VU [place] [address] Patient Name: GIANCARLO CELAYA MRN: [id number] date: 1995 Sex: F Assigned Patient Location: [facility] Current Patient Location: US Accession/Order Number: [id number] Exam Date: 10/02/2024 12:41 Report Date: 10/02/2024 [...] Anand M.D. 10/02/2024 12:43 PM Dictation Location: [place] [address] Electronically authenticated by: [id number] Y Date: 10/02/2024 12:43 Dictated By: Yaneli Anand M.D. Signed By: 10/02/24 1246 DD/ 1243 TD/TT: Dip Painter: [facility] Radiology, Radiologist, - 10/02/2024 [place] [address] Ultrasound Report Signed Patient: GIANCARLO CELAYA MR#: [id number] : 1995 Acct:[id number] Age/Sex: 28 / F ADM Date: 10/02/24 Loc: US Attending Dr: Eleazar Lilly D.O. Ordering Physician: Eleazar Lilly D.O. Date of Service: 10/02/24 Procedure(s): US OB BPP w non-stress Accession Number(s): [id number] cc: Eleazar Lilly D.O.; EVELYN VU [place] [address] Patient Name: GIANCARLO CELAYA MRN: [facility]:[id number] date: 1995 Sex: F Assigned Patient Location: [facility] Current Patient Location: US Accession/Order Number: [id number] Exam Date: 10/02/2024 12:41 Report Date: 10/02/2024 [...] Anand M.D. 10/02/2024 12:43 PM Dictation Location: [place] [address] Electronically authenticated by: [id number] Y Date: 10/02/2024 12:43 Dictated By: Yaneli Anand M.D. Signed By: 10/02/24 1246 DD/ 1243 TD/TT: Dip Painter: [facility] Radiology Study observation (narrative) [facility] US OB BPP W NON-STRESS Ordered By: Radiologist Radiology on 10-02-2024 [facility] Work Phone: OB BPP W NON-STRESS on 09-25-2024 [place] [address] Ultrasound Report Signed Patient: GIANCARLO CELAYA MR#: [id number] : 1995 Acct:[id number] Age/Sex: 28 / F ADM Date: 09/25/24 Loc: US Attending Dr: Eleazar Lilly D.O. Ordering Physician: Eleazar Lilly D.O. Date of Service: 09/25/24 Procedure(s): US OB BPP w non-stress Accession Number(s): [id number] cc: Eleazar Lilly D.O.; EVELYN VU [place] [id number] Patient Name: GIANCARLO CEALYA MRN: [id number]:[id number] date: 1995 Sex: F Assigned Patient Location: US Current Patient Location: US Accession/Order Number: [id number] Exam Date: 09/25/2024 16:34 Report Date: 09/25/2024 [...] Katz M.D. 09/25/2024 4:35 PM Dictation Location: [place] [address] Electronically authenticated by: [id number] Y Date: 09/25/2024 16:35 Dictated By: Ty Katz D.O. Signed By: 09/25/241636 DD/ 34 TD/TT: Dip Painter: [facility] Radiology, Radiologist, MD - 09/25/2024 [place] [address] Ultrasound Report Signed Patient: GIANCARLO CELAYA MR#: [id number] : 1995 Acct:[id number] Age/Sex: 28 / F ADM Date: 09/25/24 Loc: US Attending Dr: Eleazar Lilly D.O. Ordering Physician: Eleazar Lilly D.O. Date of Service: 09/25/24 Procedure(s): US OB BPP w non-stress Accession Number(s): [id number] cc: Eleazar Lilly D.O.; EVELYN VU [place] [id number] Patient Name: GIANCARLO CELAYA MRN: [facility]:[id number] date: 1995 Sex: F Assigned Patient Location: US Current Patient Location: US Accession/Order Number: [id number] Exam Date: 09/25/2024 16:34 Report Date: 09/25/2024 [...] Katz M.D. 09/25/2024 4:35 PM Dictation Location: [place] [address] Electronically authenticated by: [id number] Y Date: 09/25/2024 16:35 Dictated By: Ty Katz D.O. Signed By: 09/25/241636 DD/ 34 TD/TT: Dip Painter: [facility] Radiology Study observation (narrative) [facility] US OB BPP W NON-STRESS Ordered By: Radiologist Radiology on 09-25-2024 [facility] Work Phone: ALL CBC WITH AUTO DIFFon BASOPHILS ABSOLUTE AUTO 0 [facility] Basophils/100 WBC (Bld) 0.2 % 0.2 - 2.0 % [facility] Eosinophils/100 WBC (Bld) 0.9 % 0.9 - 7.0 % [facility] Erythrocyte distribution width (RBC) [Ratio] 12.9 % 11.0 - 15.0 % [facility] Hematocrit (Bld) [Volume fraction] 32.7 % Low 36.0 - 48.0 % [facility] Hemoglobin (Bld) [Mass/Vol] 11.6 g/dL Low 12.0 - 16.0 g/dL [facility] IMMATURE GRANULOCYTES ABS AUTO 0.07 High [facility] Immature granulocytes/100 WBC (Bld) 0.7 % High 0.0 - 0.5 % [facility] Interpretation and review of laboratory results Abnormal [facility] LYMPHOCYTES ABSOLUTE AUTO 1.8 [facility] Lymphocytes/100 WBC (Bld) 18 % Low 20.5 - 60.0 % [facility] MCH (RBC) [Entitic mass] 31.2 pg 26.7 - 34.0 pg [facility] MCHC (RBC) [Mass/Vol] 35.5 g/dL High 29.9 - 35.2 g/dL [facility] MCV (RBC) [Entitic vol] 87.9 fL 81.0 - 99.0 fL [facility] MONOCYTES ABSOLUTE AUTO 0.6 [facility] Monocytes/100 WBC (Bld) 6.4 % 1.7 - 12.0 % [facility] NEUTROPHILS ABSOLUTE AUTO 7.2 High [facility] Neutrophils/100 WBC (Bld) 73.8 % 43.0 - 75.0 % [facility] Platelet mean volume (Bld) [Entitic vol] 10.3 fL 9.5 - 13.5 fL [facility] TBH EO # 0.1 [facility] TBH PLT 145 Low [facility] TB RBC 3.72 Low [facility] TB WBC 9.8 [facility] CCF CMP (CMP) (FOR REMOTE FH C USE)on 09-19-2024 Albumin [Mass/Vol] 2.5 g/dL Low 3.4 - 5.0 g/dL [facility] ALBUMIN GLOBULIN RATIO 0.6 [facility] ALP [Catalytic activity/Vol] 123 U/L High 46 - 116 U/L [facility] ALT [Catalytic activity/Vol] 17 U/L 14 - 59 U/L [facility] Anion gap [Moles/Vol] 12.6 mmol/L [facility] AST [Catalytic activity/Vol] 19 U/L 15 - 37 U/L [facility] Bilirubin [Mass/Vol] 0.4 mg/dL 0.2 - 1 .0 mg/dL [facility] Calcium [Mass/Vol] 8.9 mg/dL 8.5 - 10. 1 mg/dL [facility] Chloride [Moles/Vol] 104 mmol/L 98 - 10 7 mmol/L [facility] CO2 [Moles/Vol] 25.1 mmol/L 21.0 - 32.0 mmol/L [facility] Creatinine [Mass/Vol] 0.6 mg/dL 0.55 - 1.02 mg/dL [facility] GFR/1.73 sq M.predicted CKD-EPI (S/P/Bld) [Vol rate/Area] >60 >=60 mL/min/1.73 m 2 [facility] Globulin (S) [Mass/Vol] 3.9 g/dL [facility] Glucose [Mass/Vol] 101 mg/dL 74 - 106 mg/dL [facility] Interpretation and review of laboratory results Abnormal [facility] Potassium [Moles/Vol] 3.7 mmol/L 3.5 - 5.1 mmol/L [facility] Protein [Mass/Vol] 6.4 g/dL 6.4 - 8.2 g/dL [facility] Sodium [Moles/Vol] 138 mmol/L 136 - 145 mmol/L [facility] EGFR-NON AF MALAGASY >60 >=60 mL/min/1.73 m 2 [facility] Urea nitrogen [Mass/Vol] 7 mg/dL 7.0 - 18.0 mg/dL [facility] Urea nitrogen/Creatinine [Mass ratio] 11.7 mg/mg [facility] OB GROWTHon 09-18-2024 [place] [address] Ultrasound Report Signed Patient: GIANCARLO CELAYA MR#: [id number] : 1995 Acct:[id number] Age/Sex: 28 / F ADM Date: 09/18/24 Loc: US Attending Dr: Eleazar Lilly D.O. Ordering Physician: Eleazar Lilly D.O. Date of Service: 09/18/24 Procedure(s): US OB growth Accession Number(s): [id number] cc: Eleazar Lilly D.O.; EVELYN VU [place] [address] Patient Name: GIANCARLO CELAYA MRN: [id number] date: 1995 Sex: F Assigned Patient Location: Current Patient Location: US Accession/Order Number: [id number] Exam Date: 09/18/2024 16:23 Report Date: 09/18/2024 [...] Smith M.D. 09/18/2024 4:30 PM Dictation Location: [place] [address] Electronically authenticated by: [id number] Y Date: 09/18/2024 16:30 Dictated By: Wally Smith M.D. Signed By: 09/18/24 1632 DD/ 1630 TD/TT: Dip Painter: [facility] Radiology, Radiologist, - 09/18/2024 [place] [address] Ultrasound Report Signed Patient: GIANCARLO CELAYA MR#: [id number] : 1995 Acct:[id number] Age/Sex: 28 / F ADM Date: 09/18/24 Loc: US Attending Dr: Eleazar Lilly D.O. Ordering Physician: Eleazar Lilly D.O. Date of Service: 09/18/24 Procedure(s): US OB growth Accession Number(s): [id number] cc: Eleazar Lilly D.O.; EVELYN VU [address] [address] Patient Name: GIANCARLO CELAYA MRN: [facility]:[id number] date: 1995 Sex: F Assigned Patient Location: US Current Patient Location: US Accession/Order Number: [id number] Exam Date: 09/18/2024 16:23 Report Date: 09/18/2024 [...] Smith M.D. 09/18/2024 4:30 PM Dictation Location: [place] [address] Electronically authenticated by: [id number] Y Date: 09/18/2024 16:30 Dictated By: Wally Smith M.D. Signed By: 09/18/24 1632 DD/ 1630 TD/TT: Dip Painter: [facility] Radiology Study observation (narrative) [facility] US OB GROWTHOrdered By: Radi ologist Radiology on 09-18-2024 [facility] Work Phone: Urinalysis macro (dipstick) panel (U)on 09-13-2024 Bilirubin, UA Negative Negative - 4(70) +++ mg/dL [facility] Blood, UA Negative Negative - 50 Fuad/mcL [facility] Clarity, UA Clear [facility] Color, UA Yellow [facility] Glucose, UA Negative Negative - 2000(110) ++++ mg/dL [facility] Interpretation and review of laboratory results Abnormal [facility] Ketones, UA Positive Negative - 160(16) ++++ mg/dL [facility] Comment on above: 15 Leukocytes, UA Negative Negative - 500+++ Sandie/mcL [facility] Nitrite, UA Negative Negative - Positive [facility] pH, UA 6 5 - 9 [facility] Protein, UA Positive Negative - 2000(20) ++++ mg/dL [facility] Comment on above: 30 Spec Grav, UA 1.025 1 - 1.03 [facility] Urobilinogen, UA 1.0 0.2 - 12 mg/dL [facility] ALL CBC WITH AUTO DIFFon BASOPHILS ABSOLUTE AUTO 0 [facility] Basophils/100 WBC (Bld) 0.4 % 0.2 - 2.0 % [facility] Eosinophils/100 WBC (Bld) 0.4 % Low 0.9 - 7.0 % [facility] Erythrocyte distribution width (RBC) [Ratio] 12.4 % 11.0 - 15.0 % [facility] Hematocrit (Bld) [Volume fraction] 34.2 % Low 36.0 - 48.0 % [facility] Hemoglobin (Bld) [Mass/Vol] 11.9 g/dL Low 12.0 - 16.0 g/dL [facility] IMMATURE GRANULOCYTES ABS AUTO 0.17 High [facility] Immature granulocytes/100 WBC (Bld) 1.5 % High 0.0 - 0.5 % [facility] Interpretation and review of laboratory results Abnormal [facility] LYMPHOCYTES ABSOLUTE AUTO 2.1 [facility] Lymphocytes/100 WBC (Bld) 18.7 % Low 20.5 - 60.0 % [facility] MCH (RBC) [Entitic mass] 31.2 pg 26.7 - 34.0 pg [facility] MCHC (RBC) [Mass/Vol] 34.8 g/dL 29.9 - 35.2 g/dL [facility] MCV (RBC) [Entitic vol] 89.5 fL 81.0 - 99.0 fL [facility] MONOCYTES ABSOLUTE AUTO 0.6 [facility] Monocytes/100 WBC (Bld) 4.8 % 1.7 - 12.0 % [facility] NEUTROPHILS ABSOLUTE AUTO 8.4 High [facility] Neutrophils/100 WBC (Bld) 74.2 % 43.0 - 75.0 % [facility] Platelet mean volume (Bld) [Entitic vol] 9.9 fL 9.5 - 13.5 fL [facility] EO # 0.1 [facility] PLT 148 Low [facility] RBC 3.82 Low [facility] WBC 11.4 High [facility] Urinalysis macro (dipstick) panel (U)on 08-20-2024 Bilirubin, UA Negative Negative - 4(70) +++ mg/dL [facility] Blood, UA Negative Negative - 50 Fuad/mcL [facility] Clarity, UA Clear [facility] Color, UA Yellow [facility] Glucose, UA Negative Negative - 2000(110) ++++ mg/dL [facility] Interpretation and review of laboratory results Normal [facility] Ketones, UA Negative Negative - 160(16) ++++ mg/dL [facility] Leukocytes, UA Negative Negative - 500+++ Sandie/mcL [facility] Nitrite, UA Negative Negative - Positive [facility] pH, UA 7 5 - 9 [facility] Protein, UA Negative Negative - 2000(20) ++++ mg/dL [facility] Spec Grav, UA 1.02 1 - 1.03 [facility] Urobilinogen, UA 0.2 0.2 - 12 mg/dL [facility] US OB LIMITED 1+ FETUSESon 0 07-23-2024 US OB LIMITED 1+ FETUSES EXAM: US [...] II, MD, PHD at 24-Jul-2024 12:32:57 AM [facility] Normal Not Available Comment on above: Order Comment: US OB INCOMPLETE ANATOMY W US OB TRANSVAGINAL Estimated Date of Delivery: 11/09/24 Gestational Age as of 06/26/2024: 20w4d Urinalysis macro (dipstick) panel (U)on 07-23-2024 Bilirubin, UA Negative Negative - 4(70) +++ mg/dL [facility] Blood, UA Negative Negative - 50 Fuad/mcL [facility] Clarity, UA Clear [facility] Color, UA Yellow [facility] Glucose, UA Negative Negative - 1999(110) ++++ mg/dL [facility] Interpretation and review of laboratory results Normal [facility] Ketones, UA Negative Negative - 160(16) ++++ mg/dL [facility] Leukocytes, UA Negative Negative - 500+++ Sandie/mcL [facility] Nitrite, UA Negative Negative - Positive [facility] pH, UA 6 5 - 9 [facility] Protein, UA Negative Negative - 2000(20) ++++ mg/dL [facility] Spec Grav, UA 1.02 1 - 1.03 [facility] Urobilinogen, UA 0.2 0.2 - 12 mg/dL [facility] AFP, SERUM, OPEN SPINA BIFID Aon 07-11-2024 AFP MOM 2.63 . [facility] AFP VALUE 133.2 ng/mL . [facility] COMMENT: Comment . [facility] Comment on above: Ronit Moncada , Ph.D., [facility] Director References: Available Upon Request. Multiples Of Median Cutoffs For AFP Elevations Giles 2.5 Black 2.8 IDD 2.0 Twins 4.5 Abbreviation Definitions IDD - Insulin Dep Diabetes OSBR - Open Spina Bifida Risk For further inquiries contact [facility] at [phone]. This test was developed and its performance characteristics determined by [employer]. It has not been cleared or approved by the Food and Drug Administration. Performed at: [facility] [address], [place] [id number] Features Editor: Darion Albrecht [facility], Phone: [phone] GEST. AGE ON COLLECTION DATE 18.0 . weeks [facility] GESTAT. AGE BASED ON As provided . [facility] Comment on above: Recalculations are n ot recommended when gestational dating by LMP and ultrasound are within 10 days. INSULIN DEP DIABETES No . [facility] INTERPRETATION Comment . [facility] Comment on above: Interpretation: Scre en Positive [...] Interpretation and review of laboratory results Abnormal [facility] [age] [facility] MULTIPLE GESTATION No . [facility] OSBR RISK 1 IN 225 . [facility] RACE . [facility] RESULTS Report . [facility] TEST RESULTS: Positive Abnormal . [facility] WEIGHT 119 . lbs [facility] N N ULTRASOUND [id number] [phone] N 1 119 N N N N N White/ [facility] Urinalysis macro (dipstick) panel (U)on 06-26-2024 Bilirubin, UA Negative Negative - 4(70) +++ mg/dL [facility] Blood, UA Negative Negative - 50 Fuad/mcL [facility] Clarity, UA Clear [facility] Color, UA Yellow [facility] Glucose, UA Negative Negative - 1999(110) ++++ mg/dL [facility] Interpretation and review of laboratory results Normal [facility] Ketones, UA Negative Negative - 160(16) ++++ mg/dL [facility] Leukocytes, UA Negative Negative - 500+++ Sandie/mcL [facility] Nitrite, UA Negative Negative - Positive [facility] pH, UA 6 5 - 9 [facility] Protein, UA Negative Negative - 2000(20) ++++ mg/dL [facility] Spec Grav, UA 1.025 1 - 1.03 [facility] Urobilinogen, UA 0.2 0.2 - 12 mg/dL [facility] No Panel InformationOrdered By: Radiologist Radiology on 06-23-2024 [facility] Work Phone: No Panel Informationon 06-23 Radiology Study observation (narrative) [facility] US OB ANATOMYon 06-23-2024 [place] [id number] Ultrasound Report Signed Patient: GIANCARLO CELAYA MR#: [id number] : 1995 Acct:[id number] Age/Sex: 28 / F ADM Date: 06/22/24 Loc: US Attending Dr: Cheryl Baugh Ordering Physician: Cheryl Baugh Date of Service: 06/22/24 Procedure(s): US OB anatomy Accession Number(s): [id number] cc: Cheryl Baugh; EVELYN VU [place] [id number] Patient Name: GIANCARLO CELAYA MRN: [id number] date: 1995 Sex: F Assigned Patient Location: US Current Patient Location: Accession/Order Number: [id number] Exam Date: 06/22/2024 17:16 Report Date: 06/23/2024 [...] Signed By: 06/23/24 0800 DD/ 0757 TD/TT: Dip Painter: [facility] Radiology, Radiologist, MD - 06/23/2024 [place] [address] Ultrasound Report Signed Patient: GIANCARLO CELAYA MR#: [id number] : 1995 Acct:[id number] Age/Sex: 28 / F ADM Date: 06/22/24 Loc: US Attending Dr: Cheryl Baugh Ordering Physician: Cheryl Baugh Date of Service: 06/22/24 Procedure(s): US OB anatomy Accession Number(s): [id number] cc: Cheryl Baugh; EVELYN VU [place] [id number] Patient Name: GIANCARLO CELAYA MRN: [facility]:[id number] date: 1995 Sex: F Assigned Patient Location: US Current Patient Location: Accession/Order Number: [id number] Exam Date: 06/22/2024 17:16 Report Date: 06/23/2024 [...] Signed By: 06/23/24 0800 DD/ 0757 TD/TT: Dip Painter: [facility] US OB CERVICAL LENGTHon 06-09 [place] [address] Ultrasound Report Signed Patient: GIANCARLO CELAYA MR#: [id number] : 1995 Acct:[id number] Age/Sex: 28 / F ADM Date: 06/22/24 Loc: US Attending Dr: Cheryl Baugh Ordering Physician: Cheryl Baugh Date of Service: 06/22/24 Procedure(s): US OB cervical length Accession Number(s): [id number] cc: Cheryl Baugh; EVELYN VU [place] [id number] Patient Name: GIANCARLO CELAYA MRN: [id number] date: 1995 Sex: F Assigned Patient Location: US Current Patient Location: Accession/Order Number: [id number] Exam Date: 06/22/2024 17:16 Report Date: 06/23/2024 [...] Signed By: 06/23/24 0800 DD/ 0757 TD/TT: Dip Painter: [facility] Radiology, Radiologist, - 06/23/2024 [place] [address] Ultrasound Report Signed Patient: GIANCARLO CELAYA MR#: [id number] : 1995 Acct:[id number] Age/Sex: 28 / F ADM Date: 06/22/24 Loc: US Attending Dr: Cheryl Baugh Ordering Physician: Cheryl Baugh Date of Service: 06/22/24 Procedure(s): US OB cervical length Accession Number(s): [id number] cc: Cheryl Baugh; EVELYN VU [place] [id number] Patient Name: GIANCARLO CELAYA MRN: [facility]:[id number] date: 1995 Sex: F Assigned Patient Location: US Current Patient Location: Accession/Order Number: [id number] Exam Date: 06/22/2024 17:16 Report Date: 06/23/2024 [...] Signed By: 06/23/24 0800 DD/ 0757 TD/TT: Dip Painter: [facility] IGP,APTIMA HPV,AGE GDLNon AGE GDLN ACOG TESTING Note . [facility] Comment on above: TESTS RESULT FLAG U NITS REF RANGE LAB Clinician Provided Cytology Information Source.............Cervix No. of containers..01 ThinPrep Vial Age Algo ACOG Jessica... FLAG LEGEND: L-Low Normal,H-High Normal,LL-Alert Low,HH-Alert High <-Panic Low,>-Panic High,A-Abnormal,AA-Critical Abnormal Performed at: 01 =G [facility] [place] [address] Bri Keenan MD, IGP, RFX APTIMA HPV ASCU Note . [facility] Comment on above: TESTS RESULT FLAG UN ITS REF RANGE LAB DIAGNOSIS: 02 NEGATIVE FOR INTRAEPITHELIAL LESION OR MALIGNANCY. Specimen adequacy: 02 Satisfactory for evaluation. No endocervical component is identified. Performed by: 02 Ramin Farrell, Image Editor ([facility]) . 02 Note: Note 02 [...] <-Panic Low,>-Panic High,A-Abnormal,AA-Critical Abnormal Performed at: [address] [address] Bri Keenan MD, Performed at: = - [facility] [address] [id number] Features Editor: Bri Keenan MD, Phone: [phone] Performed at: [facility] [id number] Features Editor: Bri Keenan MD, Phone: [phone] [facility] Urinalysis macro (dipstick) panel (U)on 05-28-2024 Bilirubin, UA Negative Negative - 4(70) +++ mg/dL [facility] Blood, UA Negative Negative - 50 Fuad/mcL [facility] Healthcare Clarity, UA Clear [facility] Color, UA Yellow [facility] Glucose, UA Negative Negative - 1999(110) ++++ mg/dL [facility] Interpretation and review of laboratory results Normal [facility] Ketones, UA Negative Negative - 160(16) ++++ mg/dL [facility] Leukocytes, UA Negative Negative - 500+++ Sandie/mcL [facility] Nitrite, UA Negative Negative - Positive [facility] pH, UA 5.5 5 - 9 [facility] Protein, UA Negative Negative - 1999(20) ++++ mg/dL [facility] Spec Grav, UA 1.02 1 - 1.03 [facility] Urobilinogen, UA 1.0 0.2 - 12 mg/dL [facility] Urinalysis macro (dipstick) panel (U)on 04-30-2024 Bilirubin, UA Negative Negative - 4(70) +++ mg/dL [facility] Blood, UA Negative Negative - 50 Fuad/mcL [facility] Healthcare Clarity, UA Clear [facility] Color, UA Yellow [facility] Glucose, UA Negative Negative - 2000(110) ++++ mg/dL [facility] Interpretation and review of laboratory results Abnormal [facility] Ketones, UA Positive Negative - 160(16) ++++ mg/dL [facility] Healthcare Comment on above: trace Leukocytes, UA Negative Negative - 500+++ Sandie/mcL [facility] Nitrite, UA Negative Negative - Positive [facility] pH, UA 5.5 5 - 9 [facility] Protein, UA Negative Negative - 1999(20) ++++ mg/dL [facility] Spec Grav, UA 1.025 1 - 1.03 [facility] Urobilinogen, UA 0.2 0.2 - 12 mg/dL [facility] Basophils Auto (Bld) [#/Vol] on 04-16-2024 Basophils (Bld) [#/Vol] Automated basophil count 0.0-0.1 [facility] Basophils/100 WBC Auto (Bld) on 04-16-2024 Basophils/100 WBC (Bld) Automated basophil % 0.2-2.0 [facility] Buprenorphine [Presence] in Urineon 04-16-2024 Buprenorphine Ql (U) Buprenorphine [Presence] in Urine NEGATIVE [facility] Comment on above: DRUG CLASS TEST SYST EM CUT-OFF CONCENTRATIONS ARE ASFOLLOWS:AMP (Amphetamine): 500 ng/mLBAR (Barbiturates): 200 ng/mLBZO (Benzodiazepines): 150 ng/mLBUP (Buprenorphine): 10 ng/mLCOC (Cocaine): 150 ng/mLmAMP (Methamphetamine): 500 ng/mLMTD (Methadone): 200 ng/mLOPI (Opiates): 100 ng/mLOXY (Oxycodone): 100 ng/mLPCP (Phencyclidine): 25 ng/mLTHC (Cannabinoids): 50 ng/mLTCA (Trycyclic Antidepressants): 300 ng/mL Eosinophils/100 WBC Auto (Bl d)on 04-16-2024 Eosinophils/100 WBC (Bld) Automated eosinophil % Low 0.9-7.0 [facility] Erythrocyte distribution wid th Auto (RBC) [Ratio]on 04-16-2024 Erythrocyte distribution width (RBC) [Ratio] Erythrocyte distribution width [Ratio] by Automated count 11.0-15.0 [facility] Glucose mean value [Mass/vol ume] in Blood Estimated from glycated hemoglobinon 04-16-2024 Average glucose Estimated from glycated hemoglobin (Bld) [Mass/Vol] Glucose mean value [Mass/volume] in Blood Estimated from glycated hemoglobin [facility] HBV surface Ag IA Qlon 04-16 Hepatitis B Surface Antigen Negative Negative [facility] Comment on above: Performed at: [place] - [facility] [address] [id number] Director: Sheldon Polo PhD, Phone: [phone] HIV 1 and HIV-2 antibody ass ay with HIV-1 p24 antigen detectionon 04-16-2024 HIV 1+2 Ab+HIV1 p24 Ag IA Ql HIV 1 and HIV-2 antibody assay with HIV-1 p24 antigen detection Non Reactive [facility] Comment on above: HIV-1/HIV-2 antibodi es and HIV-1 p24 antigen were NOTdetected. There is no laboratory evidence of HIV infection.HIV NegativePerformed at: [place] - [facility] [address] [id number] Director: Sheldon Polo PhD, Phone: [phone] Hematocrit Auto (Bld) [Volum e fraction]on 04-16-2024 Hematocrit (Bld) [Volume fraction] Hematocrit [Volume Fraction] of Blood by Automated count 36.0-48.0 [facility] Hemoglobin [Mass/volume] in Bloodon 04-16-2024 Hemoglobin (Bld) [Mass/Vol] Hemoglobin [Mass/volume] in Blood 12.0-16.0 [facility] Laboratory - Drug toxicology on 04-16-2024 Amphetamines Ql (U) Negative NEGATIVE [facility] Benzodiazepines Ql (U) Negative NEGATIVE [facility] Cocaine Ql (U) Negative NEGATIVE [facility] Opiates Ql (U) Negative NEGATIVE [facility] Phencyclidine Ql (U) Negative NEGATIVE [facility] Laboratory - Hematology and Cell countson 04-16-2024 HbA1c (Bld) [Mass fraction] 4.8 % 4.5-6.2 [facility] Comment on above: ADA RECOMMENDED LIMI T 4.0 - 6.0ADA THERAPEUTIC TARGET < 7.0ACTION SUGGESTED> 7.0 Immature granulocytes/100 WBC (Bld) 0.6 % High 0.0-0.5 [facility] Leukocytes [#/volume] correc leonidas for nucleated erythrocytes in Blood by Automated counon 04-16-2024 WBC corrected for nucl RBC Auto (Bld) [#/Vol] Leukocytes [#/volume] corrected for nucleated erythrocytes in Blood by Automated coun 4.0-11.0 [facility] Lymphocytes Auto (Bld) [#/Vo l]on 04-16-2024 Lymphocytes (Bld) [#/Vol] Lymphocytes [#/volume] in Blood by Automated count 1.2-3.8 [facility] Lymphocytes/100 WBC Auto (Bl d)on 04-16-2024 Lymphocytes/100 WBC (Bld) Lymphocytes/100 leukocytes in Blood by Automated count Low 20.5-60.0 [facility] MCH Auto (RBC) [Entitic mass ]on 04-16-2024 MCH (RBC) [Entitic mass] MCH [Entitic mass] by Automated count 26.7-34.0 [facility] MCHC Auto (RBC) [Mass/Vol]on 04-16-2024 MCHC (RBC) [Mass/Vol] MCHC [Mass/volume] by Automated count High 29.9-35.2 [facility] MCV Auto (RBC) [Entitic vol] on 04-16-2024 MCV (RBC) [Entitic vol] MCV [Entitic volume] by Automated count 81.0-99.0 [facility] MLR HEMOGLOBIN A1Con 024 Glucose [Mass/Vol] 91 mg/dL [facility] HbA1c (Bld) [Mass fraction] 4.8 % 4.5 - 6.2 % [facility] Comment on above: ADA RECOMMENDED LIMI T 4.0 - 6.0 ADA THERAPEUTIC TARGET < 7.0 ACTION SUGGESTED > 7.0 [facility] Methadone [Presence] in Urin e by Screen methodon 04-16-2024 Methadone Screen Ql (U) Methadone [Presence] in Urine by Screen method NEGATIVE [facility] Monocytes Auto (Bld) [#/Vol] on 04-16-2024 Monocytes (Bld) [#/Vol] Automated blood monocyte count 0.3-0.8 [facility] Monocytes/100 WBC Auto (Bld) on 04-16-2024 Monocytes/100 WBC (Bld) Automated monocyte % 1.7-12.0 [facility] Neutrophils Auto (Bld) [#/Vo l]on 04-16-2024 Neutrophils (Bld) [#/Vol] Neutrophils [#/volume] in Blood by Automated count High 1.4-6.5 [facility] Neutrophils/100 WBC Auto (Bl d)on 04-16-2024 Neutrophils/100 WBC (Bld) Automated neutrophil % 43.0-75.0 [facility] No Panel Informationon 04-16 Eosinophils # (Auto) 0.1 10 3/uL 0.0-0.7 [facility] Hepatitis C Interpretation Comment . [facility] Comment on above: Not infected with HC V unless early or acute infection issuspected (which may be delayed in an immunocompromisedindividual), or other evidence exists to indicate HCVinfection. Immature Granulocyte # (Auto) 0.05 10 3/uL High 0.00-0.03 [facility] RPR Quantitative Confirmation Non Reactive titer NonRea<1:1 [facility] Comment on above: Please Note: This te st does not meet current guidelines forscreening and diagnosis of syphilis. This test isintended for following treatment response in patients beingtreated for syphilis infection. To screen for syphilisinfection, a reflex cascade that includes both RPR and atreponema-specific assay should be utilized, such asTreponema pallidum (Syphilis) Screening Bacon (665626) orRapid Plasma Reagin (RPR) Test With Reflex to QuantitativeRPR and Confirmatory Treponema pallidum Antibodies(315580).Performed at: [facility] [employer] [id number] Director: Sheldon Polo PhD, Phone: [phone] Rubella IgG Antibody 7.20 index Immune >0.99 [facility] Comment on above: Non-immune <0.90 Equ ivocal 0.90 - 0.99 Immune >0.99 Urine Barbiturates Screen Negative NEGATIVE [facility] Urine Marijuana (THC) Screen Negative NEGATIVE [facility] Urine Methamphetamines Screen Negative NEGATIVE [facility] Platelet mean volume Auto (B ld) [Entitic vol]on 04-16-2024 Platelet mean volume (Bld) [Entitic vol] Platelet mean volume [Entitic volume] in Blood by Automated count 9.5-13.5 [facility] Platelets Auto (Bld) [#/Vol] on 04-16-2024 Platelets (Bld) [#/Vol] Platelets [#/volume] in Blood by Automated count 150-450 [facility] RBC Auto (Bld) [#/Vol]on RBC (Bld) [#/Vol] Erythrocytes [#/volume] in Blood by Automated count 4.20-5.40 [facility] Serum or plasma hepatitis C virus antibody signal/cutoff ratio by immunoassay (relation 04-16-2024 HCV Ab Signal/Cutoff IA [Rel units/Vol] Serum or plasma hepatitis C virus antibody signal/cutoff ratio by immunoassay (relati Non Reactive [facility] Urine tricyclic antidepressa nt measurementon 04-16-2024 Tricyclic antidepressants (U) [Mass/Vol] Urine tricyclic antidepressant measurement NEGATIVE [facility] oxyCODONE+oxyMORphone [Prese nce] in Urine by Screen methodon 04-16-2024 oxyCODONE+oxyMORphone Screen Ql (U) oxyCODONE+oxyMORphone [Presence] in Urine by Screen method NEGATIVE [facility] BOX TESTon 04-13-2024 BOX TEST SENT OUT 04/13/2024 [facility] [address] [facility] [address] [facility] HCG ( test) Ql (U)o n 03-23-2024 Interpretation and review of laboratory results Abnormal [facility] Preg Test, Ur Positive Negative [facility] Urinalysis macro (dipstick) panel (U)on 03-23-2024 Bilirubin, UA Negative Negative - 4(70) +++ mg/dL [facility] Blood, UA Negative Negative - 50 Fuad/mcL [facility] Clarity, UA Clear [facility] Color, UA Yellow [facility] Glucose, UA Negative Negative - 1999(110) ++++ mg/dL [facility] Interpretation and review of laboratory results Abnormal [facility] Ketones, UA Positive Negative - 160(16) ++++ mg/dL [facility] Leukocytes, UA Negative Negative - 500+++ Sandie/mcL [facility] Nitrite, UA Negative Negative - Positive [facility] pH, UA 5.5 5 - 9 [facility] Protein, UA Negative Negative - 1999(20) ++++ mg/dL [facility] Spec Grav, UA 1.03 1 - 1.03 [facility] Urobilinogen, UA 0.2 0.2 - 12 mg/dL [facility] Laboratory - Chemistry and C hemistry - challengeon 03-17-2024 Bilirubin Ql (U) Negative NEGATIVE [facility] Glucose (U) [Mass/Vol] Negative NEGATIVE [facility] Ketones Ql (U) Negative NEGATIVE [facility] pH (U) 7.0 [pH] 5.0-9.0 [facility] Specific gravity (U) [Rel density] 1.020 1.005-1.025 [facility] Urobilinogen Qn (U) 1.0 {Chanel'U}/dL 0.2-1.0 [facility] Laboratory - Specimen inform ationon 03-17-2024 Appearance (U) CLEAR CLEAR [facility] Color (U) LT. YELLOW YELLOW [facility] Laboratory - Urinalysison Leukocyte esterase Test strip Ql (U) TRACE Abnormal NEGATIVE [facility] Mucus Ql (Urine sed) TRACE Abnormal NONE SEEN [facility] Nitrite Ql (U) Negative NEGATIVE [facility] Protein Ql (U) Negative NEG/TRACE [facility] No Panel Informationon 03-17 Human Chorionic Gonadotropin, Quant 79016 mIU/mL [facility] Comment on above: 5-50 0.2-1 SOIT88-38 0 1-2 DRCBQ029-6,000 2-3 HTRRK888-57,000 3-4 WEEKS1,000-50,000 4-5 WEEKS10,000-100,000 5-6 WEEKS15,000-200,000 6-8 WEEKS10,000-100,000 2-3 MONTHS Miscellaneous Test Comment See comment [facility] Comment on above: Specimen Source: UCC - Urine,Clean Catch - Urine CC - 200.100 Urine Bacteria MODERATE #/HPF Abnormal NONE SEEN [facility] Urine Culture Reflexed YES [facility] Urine Culture Result 1 \R\ Urine Culture, Routine [facility] Urine Microscopic Review YES [facility] Urine Occult Blood MODERATE Abnormal NEGATIVE [facility] Urine Other Casts NONE SEEN #/LPF NONE SEEN Fi [facility] Urine Other Crystals None Seen #/HPF None Seen [facility] Urine RBC 2-5 #/HPF Abnormal 0-2 [facility] Urine Squamous Epithelial Cells MODERATE #/LPF Abnormal NONE/RARE [facility] Urine WBC 0-2 #/HPF Abnormal NONE SEEN [facility] HCG ( test) Ql (U)o n 03-14-2024 Interpretation and review of laboratory results Abnormal [facility] Preg Test, Ur Positive Negative [facility] Urinalysis macro (dipstick) panel (U)on 03-14-2024 Bilirubin, UA Positive Negative - 4(70) +++ mg/dL [facility] Comment on above: small Blood, UA Positive Negative - 50 Fuad/mcL [facility] Comment on above: moderate Clarity, UA Clear [facility] Color, UA Yellow [facility] Glucose, UA Negative Negative - 2000(110) ++++ mg/dL [facility] Interpretation and review of laboratory results Abnormal [facility] Ketones, UA Positive Negative - 160(16) ++++ mg/dL [facility] Comment on above: 40 Leukocytes, UA Negative Negative - 500+++ Sandie/mcL [facility] Nitrite, UA Negative Negative - Positive [facility] pH, UA 5.5 5 - 9 [facility] Protein, UA Negative Negative - 2000(20) ++++ mg/dL [facility] Spec Grav, UA 1.03 1 - 1.03 [facility] Urobilinogen, UA 0.2 0.2 - 12 mg/dL [facility] No Panel Informationon 03-08 Human Chorionic Gonadotropin, Quant 2190 mIU/mL [facility] Comment on above: 5-50 0.2-1 RXWD10-98 0 1-2 FOEMF509-9,000 2-3 UWOXN694-48,000 3-4 WEEKS1,000-50,000 4-5 WEEKS10,000-100,000 5-6 WEEKS15,000-200,000 6-8 WEEKS10,000-100,000 2-3 MONTHS [facility] PREG QUANT HCGon 024 HCG QUANTITATIVE 2190 mIU/mL [facility] Comment on above: 5-50 0.2-1 WEEK 50-500 1-2 WEEKS 100-5,000 2-3 WEEKS 500-10,000 3-4 WEEKS 1,000-50,000 4-5 WEEKS 10,000-100,000 5-6 WEEKS 15,000-200,000 6-8 WEEKS 10,000-100,000 2-3 MONTHS [facility] No Panel Informationon 03-02 Human Chorionic Gonadotropin, Quant 67 mIU/mL [facility] Comment on above: 5-50 0.2-1 OPJF64-46 0 1-2 ATNMT961-7,000 2-3 YHXNF972-95,000 3-4 WEEKS1,000-50,000 4-5 WEEKS10,000-100,000 5-6 WEEKS15,000-200,000 6-8 WEEKS10,000-100,000 2-3 MONTHS No Panel Informationon 02-28 Human Chorionic Gonadotropin, Quant 30 mIU/mL [facility] Comment on above: 5-50 0.2-1 GUIW91-33 0 1-2 OIUKL545-3,000 2-3 NUWCI564-21,000 3-4 WEEKS1,000-50,000 4-5 WEEKS10,000-100,000 5-6 WEEKS15,000-200,000 6-8 WEEKS10,000-100,000 2-3 MONTHS Basophils Auto (Bld) [#/Vol] on 02-27-2024 Basophils (Bld) [#/Vol] Automated basophil count 0.0-0.1 [facility] Basophils/100 WBC Auto (Bld) on 02-27-2024 Basophils/100 WBC (Bld) Automated basophil % 0.2-2.0 [facility] Eosinophils/100 WBC Auto (Bl d)on 02-27-2024 Eosinophils/100 WBC (Bld) Automated eosinophil % Low 0.9-7.0 [facility] Erythrocyte distribution wid th Auto (RBC) [Ratio]on 02-27-2024 Erythrocyte distribution width (RBC) [Ratio] Erythrocyte distribution width [Ratio] by Automated count 11.0-15.0 [facility] Estimated glomerular filtrat ion rate (GFR) non- Americanon 02-27-2024 GFR/1.73 sq M.predicted among non-blacks MDRD (S/P/Bld) [Vol rate/Area] Estimated glomerular filtration rate (GFR) non- >=60 mL/min/1.73 m 2 [facility] HCG ( test) Amira d Ql (U)on 02-27-2024 HCG ( test) Ql (U) Urine human chorionic gonadotropin (hCG) detection by immunoassay Abnormal NEGATIVE [facility] Hematocrit Auto (Bld) [Volum e fraction]on 02-27-2024 Hematocrit (Bld) [Volume fraction] Hematocrit [Volume Fraction] of Blood by Automated count 36.0-48.0 [facility] Hemoglobin [Mass/volume] in Bloodon 02-27-2024 Hemoglobin (Bld) [Mass/Vol] Hemoglobin [Mass/volume] in Blood 12.0-16.0 [facility] Laboratory - Chemistry and C hemistry - challengeon 02-27-2024 Calcium [Mass/Vol] 9.4 mg/dL 8.5-10.1 [facility] Chloride [Moles/Vol] 104 mmol/L 98-107 [facility] CO2 [Moles/Vol] 22.6 mmol/L 21.0-32.0 [facility] Creatinine [Mass/Vol] 0.79 mg/dL 0.55-1.02 [facility] GFR/1.73 sq M.predicted MDRD (S/P/Bld) [Vol rate/Area] mL/min/{1.73_m2} >=60 mL/min/1.73 m 2 [facility] Glucose [Mass/Vol] 88 mg/dL 74-106 [facility] Potassium [Moles/Vol] 3.4 mmol/L Low 3.5-5.1 [facility] Sodium [Moles/Vol] 139 mmol/L 136-145 [facility] Urea nitrogen [Mass/Vol] 10.0 mg/dL 7.0-18.0 [facility] Urea nitrogen/Creatinine [Mass ratio] 12.7 mg/mg [facility] Bilirubin Ql (U) Negative NEGATIVE [facility] Glucose (U) [Mass/Vol] Negative NEGATIVE [facility] Ketones Ql (U) 15 mg/dL Abnormal NEGATIVE [facility] pH (U) 6.0 [pH] 5.0-9.0 [facility] Specific gravity (U) [Rel density] 1.025 1.005-1.025 [facility] Urobilinogen Qn (U) 0.2 {Chanel'U}/dL 0.2-1.0 [facility] Laboratory - Hematology and Cell countson 02-27-2024 Immature granulocytes/100 WBC (Bld) 0.1 % 0.0-0.5 [facility] Laboratory - Specimen inform ationon 02-27-2024 Appearance (U) CLEAR CLEAR [facility] Color (U) LT. YELLOW YELLOW [facility] Laboratory - Urinalysison Leukocyte esterase Test strip Ql (U) Negative NEGATIVE [facility] Nitrite Ql (U) Negative NEGATIVE [facility] Protein Ql (U) Negative NEG/TRACE [facility] Leukocytes [#/volume] correc leonidas for nucleated erythrocytes in Blood by Automated counon 02-27-2024 WBC corrected for nucl RBC Auto (Bld) [#/Vol] Leukocytes [#/volume] corrected for nucleated erythrocytes in Blood by Automated coun 4.0-11.0 [facility] Lymphocytes Auto (Bld) [#/Vo l]on 02-27-2024 Lymphocytes (Bld) [#/Vol] Lymphocytes [#/volume] in Blood by Automated count 1.2-3.8 [facility] Lymphocytes/100 WBC Auto (Bl d)on 02-27-2024 Lymphocytes/100 WBC (Bld) Lymphocytes/100 leukocytes in Blood by Automated count 20.5-60.0 [facility] MCH Auto (RBC) [Entitic mass ]on 02-27-2024 MCH (RBC) [Entitic mass] MCH [Entitic mass] by Automated count 26.7-34.0 [facility] MCHC Auto (RBC) [Mass/Vol]on 02-27-2024 MCHC (RBC) [Mass/Vol] MCHC [Mass/volume] by Automated count High 29.9-35.2 [facility] MCV Auto (RBC) [Entitic vol] on 02-27-2024 MCV (RBC) [Entitic vol] MCV [Entitic volume] by Automated count 81.0-99.0 [facility] Monocytes Auto (Bld) [#/Vol] on 02-27-2024 Monocytes (Bld) [#/Vol] Automated blood monocyte count 0.3-0.8 [facility] Monocytes/100 WBC Auto (Bld) on 02-27-2024 Monocytes/100 WBC (Bld) Automated monocyte % 1.7-12.0 [facility] Neutrophils Auto (Bld) [#/Vo l]on 02-27-2024 Neutrophils (Bld) [#/Vol] Neutrophils [#/volume] in Blood by Automated count 1.4-6.5 [facility] Neutrophils/100 WBC Auto (Bl d)on 02-27-2024 Neutrophils/100 WBC (Bld) Automated neutrophil % 43.0-75.0 [facility] No Panel Informationon 02-26 Eosinophils # (Auto) 0.1 10 3/uL 0.0-0.7 [facility] Human Chorionic Gonadotropin, Quant 16 mIU/mL [facility] Comment on above: 5-50 0.2-1 TEWZ62-49 0 1-2 PNXZU886-1,000 2-3 VVLWK938-88,000 3-4 WEEKS1,000-50,000 4-5 WEEKS10,000-100,000 5-6 WEEKS15,000-200,000 6-8 WEEKS10,000-100,000 2-3 MONTHS Immature Granulocyte # (Auto) 0.01 10 3/uL 0.00-0.03 [facility] Urine Microscopic Review NO [facility] Urine Occult Blood Negative NEGATIVE [facility] Platelet mean volume Auto (B ld) [Entitic vol]on 02-27-2024 Platelet mean volume (Bld) [Entitic vol] Platelet mean volume [Entitic volume] in Blood by Automated count 9.5-13.5 [facility] Platelets Auto (Bld) [#/Vol] on 02-27-2024 Platelets (Bld) [#/Vol] Platelets [#/volume] in Blood by Automated count 150-450 [facility] RBC Auto (Bld) [#/Vol]on RBC (Bld) [#/Vol] Erythrocytes [#/volume] in Blood by Automated count 4.20-5.40 [facility] Serum or plasma anion gap de terminationon 02-27-2024 Anion gap [Moles/Vol] Serum or plasma an ion gap determination [facility] No Panel Informationon 02-20 Human Chorionic Gonadotropin, Quant <1 mIU/mL [facility] Comment on above: 5-50 0.2-1 [id number] 0 1-2 [id number],000 2-3 [id number],000 3-4 WEEKS1,000-50,000 4-5 WEEKS10,000-100,000 5-6 WEEKS15,000-200,000 6-8 WEEKS10,000-100,000 2-3 MONTHS URETHRITIS/DISCHARGE PLUS VA GINITIS (HTRX)on 02-10-2024 ATOPOBIUM VAGINAE 0.000 [facility] ATOPOBIUM VAGINAE Not detected [facility] BVAB 2,3 (BACTERIAL VAGINOSIS ASSOCIATED BACTERIA 2, 3); MOBILUNCUS SPP 0.000 [facility] BVAB 2,3 (BACTERIAL VAGINOSIS ASSOCIATED BACTERIA 2, 3); MOBILUNCUS SPP Not detected [facility] ALICIA ALBICANS, PARAPSILOSIS, TROPICALIS 0.000 [facility] ALICIA ALBICANS, PARAPSILOSIS, TROPICALIS Not detected [facility] ALICIA GLABRATA 0.000 [facility] ALICIA GLABRATA Not detected [facility] ALICIA KRUSEI 0.000 [facility] ALICIA KRUSEI Not detected [facility] CHLAMYDIA TRACHOMATIS 0.000 [facility] CHLAMYDIA TRACHOMATIS Not detected N [facility] GARDNERELLA VAGINALIS 0.000 [facility] GARDNERELLA VAGINALIS Not detected N [facility] MEGASPHAERA (TYPES 1, 2) 0.000 [facility] MEGASPHAERA (TYPES 1, 2) Not detected [facility] MYCOPLASMA GENITALIUM 0.000 [facility] MYCOPLASMA GENITALIUM Not detected N [facility] NEISSERIA GONORRHOEAE 0.000 [facility] NEISSERIA GONORRHOEAE Not detected N [facility] TRICHOMONAS VAGINALIS 0.000 [facility] TRICHOMONAS VAGINALIS Not detected N [facility] HCG ( test) Ql (U)o n 02-08-2024 Interpretation and review of laboratory results Normal [facility] Preg Test, Ur Negative [facility] Urinalysis macro (dipstick) panel (U)on 02-08-2024 Bilirubin, UA Negative Negative - 4(70) +++ mg/dL [facility] Blood, UA Negative Negative - 50 Fuad/mcL [facility] Clarity, UA Clear [facility] Color, UA Yellow [facility] Glucose, UA Negative Negative - 2000(110) ++++ mg/dL [facility] Interpretation and review of laboratory results Normal [facility] Ketones, UA Negative Negative - 160(16) ++++ mg/dL [facility] Leukocytes, UA Negative Negative - 500+++ Sandie/mcL [facility] Nitrite, UA Negative Negative - Positive [facility] pH, UA 7.5 5 - 9 [facility] Protein, UA Negative Negative - 2000(20) ++++ mg/dL [facility] Spec Grav, UA 1.020 1 - 1.03 [facility] Urobilinogen, UA 0.2 0.2 - 12 mg/dL [facility] Vaginitis Plus (VG+)on 02-01 Atopobium Vaginae Low - 0 Normal . [facility] Comment on above: Result Comment: This test was developed and its performance characteristics determined by [facility]. It has not been cleared or approved by the Food and Drug Administration. Performed By: #### V AGINITIS+ #### [facility] , BVAB2 Low - 0 Normal . [facility] Comment on above: Result Comment: This test was developed and its performance characteristics determined by [facility]. It has not been cleared or approved by the Food and Drug Administration. Performed By: #### V AGINITIS+ #### [facility] , Alicia Albicans, ELDON Positive Critically abnormal Negative [facility] Comment on above: Result Comment: This test was developed and its performance characteristics determined by [facility]. It has not been cleared or approved by the Food and Drug Administration. Performed By: #### V AGINITIS+ #### [facility] , Alicia Glabrata, ELDON Negative Normal Negative [facility] Comment on above: Result Comment: This test was developed and its performance characteristics determined by [facility]. It has not been cleared or approved by the Food and Drug Administration. PERFORMED BY: [address] [place] [address] PATHOLOGIST COORDINATOR [employer] IRENE TURPIN M.D. Performed By: #### V AGINITIS+ #### [facility] , Chlamydia Trachomotis, ELDON Negative Normal Negative [facility] Comment on above: Performed By: #### V AGINITIS+ #### [facility] , Megasphaera Low - 0 Normal . [facility] Comment on above: [...] Gonorrhoeae, ELDON Negative Normal Negative [facility] Comment on above: Result Comment: Perf ormed at: =G - [facility] [address] [id number] Features Editor: Bri Keenan MD, Phone: [phone] Performed By: #### V AGINITIS+ #### [facility] , Tric Vag ELDON Negative Normal Negative [facility] Comment on above: Performed By: #### V AGINITIS+ #### [facility] , Basophils Auto (Bld) [#/Vol] on 01-19-2024 Basophils (Bld) [#/Vol] 0.0 10 3/uL 0.0-0.1 [facility] Basophils/100 WBC Auto (Bld) on 01-19-2024 Basophils/100 WBC (Bld) 0.4 % 0.2-2.0 [facility] Eosinophils/100 WBC Auto (Bl d)on 01-19-2024 Eosinophils/100 WBC (Bld) 1.0 % 0.9-7.0 [facility] Erythrocyte distribution wid th Auto (RBC) [Ratio]on 01-19-2024 Erythrocyte distribution width (RBC) [Ratio] 11.7 % 11.0-15.0 [facility] Estimated glomerular filtrat ion rate (GFR) non- Americanon 01-19-2024 GFR/1.73 sq M.predicted among non-blacks MDRD (S/P/Bld) [Vol rate/Area] mL/min/{1.73_m2} >=60 [facility] Hematocrit Auto (Bld) [Volum e fraction]on 01-19-2024 Hematocrit (Bld) [Volume fraction] 39.6 % 36.0-48.0 [facility] Hemoglobin [Mass/volume] in Bloodon 01-19-2024 Hemoglobin (Bld) [Mass/Vol] 14.3 g/dL 12.0-16.0 [facility] Laboratory - Chemistry and C hemistry - challengeon 01-19-2024 Calcium [Mass/Vol] 8.7 mg/dL 8.5-10.1 [facility] Chloride [Moles/Vol] 100 mmol/L 98-107 [facility] CO2 [Moles/Vol] 27.5 mmol/L 21.0-32.0 [facility] Creatinine [Mass/Vol] 0.88 mg/dL 0.55-1.02 [facility] GFR/1.73 sq M.predicted MDRD (S/P/Bld) [Vol rate/Area] mL/min/{1.73_m2} >=60 [facility] Glucose [Mass/Vol] 94 mg/dL 74-106 [facility] Potassium [Moles/Vol] 3.3 mmol/L Low 3.5-5.1 [facility] Sodium [Moles/Vol] 135 mmol/L Low 136-145 [facility] Urea nitrogen [Mass/Vol] 12.0 mg/dL 7.0-18.0 [facility] Urea nitrogen/Creatinine [Mass ratio] 13.6 mg/mg [facility] Laboratory - Hematology and Cell countson 01-19-2024 Immature granulocytes/100 WBC (Bld) 0.0 % 0.0-0.5 [facility] Leukocytes [#/volume] correc leonidas for nucleated erythrocytes in Blood by Automated counon 01-19-2024 WBC corrected for nucl RBC Auto (Bld) [#/Vol] 4.8 10 3/uL 4.0-11.0 [facility] Lymphocytes Auto (Bld) [#/Vo l]on 01-19-2024 Lymphocytes (Bld) [#/Vol] 1.2 10 3/uL 1.2-3.8 [facility] Lymphocytes/100 WBC Auto (Bl d)on 01-19-2024 Lymphocytes/100 WBC (Bld) 25.1 % 20.5-60.0 [facility] MCH Auto (RBC) [Entitic mass ]on 01-19-2024 MCH (RBC) [Entitic mass] 30.4 pg 26.7-34.0 [facility] MCHC Auto (RBC) [Mass/Vol]on 01-19-2024 MCHC (RBC) [Mass/Vol] 36.1 g/dL High 29.9-35.2 [facility] MCV Auto (RBC) [Entitic vol] on 01-19-2024 MCV (RBC) [Entitic vol] 84.1 fL 81.0-99.0 [facility] Monocytes Auto (Bld) [#/Vol] on 01-19-2024 Monocytes (Bld) [#/Vol] 0.6 10 3/uL 0.3-0.8 [facility] Monocytes/100 WBC Auto (Bld) on 01-19-2024 Monocytes/100 WBC (Bld) 11.6 % 1.7-12.0 [facility] Neutrophils Auto (Bld) [#/Vo l]on 01-19-2024 Neutrophils (Bld) [#/Vol] 3.0 10 3/uL 1.4-6.5 [facility] Neutrophils/100 WBC Auto (Bl d)on 01-19-2024 Neutrophils/100 WBC (Bld) 61.9 % 43.0-75.0 [facility] No Panel Informationon 01-18 Eosinophils # (Auto) 0.1 10 3/uL 0.0-0.7 [facility] Human Chorionic Gonadotropin, Qual Negative NEGATIVE [facility] Immature Granulocyte # (Auto) 0.00 10 3/uL 0.00-0.03 [facility] Platelet mean volume Auto (B ld) [Entitic vol]on 01-19-2024 Platelet mean volume (Bld) [Entitic vol] 11.2 fL 9.5-13.5 [facility] Platelets Auto (Bld) [#/Vol] on 01-19-2024 Platelets (Bld) [#/Vol] 137 10 3/uL Low 150-450 [facility] RBC Auto (Bld) [#/Vol]on RBC (Bld) [#/Vol] 4.71 10 6/uL 4.20-5.40 [facility] Serum or plasma anion gap de terminationon 01-19-2024 Anion gap [Moles/Vol] 10.8 mmol/L [facility] Choriogonadotropin.beta subu nit ( test) [Presence] in Urineon 01-03-2024 Beta HCG ( test) Ql (U) Negative [facility] Influenza virus A and B and SARS-CoV-2 (COVID-19) RNA panel - Respiratory system specon 01-03-2024 Influenza virus A and B RNA and SARS-CoV-2 (COVID-19) N gene panel ELDON+probe (Resp) Negative [facility] Laboratory - Microbiology an d Antimicrobial susceptibilityon 01-03-2024 SARS-CoV-2 (COVID-19) RNA ELDON+probe Ql (Unsp spec) Negative [facility] No Panel Informationon 01-02 POC Influenza B (ELDON) Negative [facility] No Panel InformationOrdered By: Evelyn Vu on 01-03-2024 Quick Strep (POC) [facility] Quick Strepon 10-02-2022 S. pyogenes Org specific cx Ql (Throat) Negative [facility] Other Quick Strep [facility] Other COVID19(IDNOW)on 11-30-2019 COVID19(IDNOW) NOT DETECTED Normal NOT DETECTED [facility] Comment on above: Result Comment: Nega tive results do not preclude SARS-CoV-2 infection and should not be used as the sole basis for treatiment or other patient management. ENHANCED CONTACT, AND DROPLET ISOLATION IS REQUIRED FOR INPATIENTS WITH SARS-CoV-2. Performed By: #### C OVID19(IDNOW) #### [facility] [address] [place] [address] Age at specimen collection = Normal [facility] Comment on above: Performed By: #### C OVID19(IDNOW) #### [id number] [place] [address] Hematologyon 05-11-2019 Basophils (Bld) [#/Vol] 0.0 10*3/uL 0.0-0.1 [facility] Basophils/100 WBC (Bld) 0.40 % 0.0-1.0 [facility] Eosinophils (Bld) [#/Vol] 0.10 10*3/uL 0.0-0.5 [facility] Eosinophils/100 WBC (Bld) 1.30 % 0.0-7.0 [facility] Hematocrit (Bld) [Volume fraction] 41.30 % 35.7-47.1 [facility] Hemoglobin (Bld) [Mass/Vol] 14.10 g/dL 11.9-15.7 [facility] Lymphocytes (Bld) [#/Vol] 2.20 10*3/uL 0.9-3.1 [facility] Lymphocytes/100 WBC (Bld) 29.30 % 15.0-46.0 [facility] MCH (RBC) [Entitic mass] 29.90 pg 23.2-33.3 [facility] MCV (RBC) [Entitic vol] 87.50 fL 83.4-101.4 [facility] [employer] [facility] Monocytes (Bld) [#/Vol] 0.60 10*3/uL 0.3-1.0 [facility] [employer] [facility] Monocytes/100 WBC (Bld) 8.60 % 4.0-12.0 [facility] Neutrophils (Bld) [#/Vol] 4.50 10*3/uL 1.8-7.9 [facility] [employer] [facility] Neutrophils/100 WBC (Bld) 60.0 % 43.0-76.0 [facility] [employer] [facility] Platelets (Bld) [#/Vol] 160.0 10*3/uL 150-400 [facility] [employer] [facility] RBC (Bld) [#/Vol] 4.720 10*6/uL 3.72-5.24 [facility] [employer] [facility] WBC (Bld) [#/Vol] 7.40 10*3/uL 3.9-10.3 [facility] [employer] [facility] Otheron 05-11-2019 Erythrocyte distribution width (RBC) [Ratio] 12.10 % 11.5-15.5 [facility] [employer] [facility] Immature granulocytes (Bld) [#/Vol] 0.030 10*3/uL 0.00-0.06 [facility] [employer] [facility] Immature granulocytes/100 WBC (Bld) 0.40 % 0.0-0.5 [facility] [employer] [facility] MCHC (RBC) [Mass/Vol] 34.10 g/dL 32.0-36.0 [facility] [employer] [facility] Platelet mean volume (Bld) [Entitic vol] 11.10 fL 8.3-11.5 [employer] [employer] COMMENT [place] [employer] <9.0 0.0-8.9 [place] [employer] 303.0 0.0-17.9 [place] [employer] <36.0 0.0-35.9 [employer] 38.9 0.0-17.9 [place] [facility] Thyroidon 05-11-2019 TSH Qn 1.96 m[IU]/L 0.50-4.00 [place] [employer] Basic Metabolic Profon 04-20 (cont.) Normal [facility] Comment on above: Result Comment: Aver age GFR for 20-29 years old: 116 mL/min/1.73sq mChronic Kidney Disease: <60 mL/min/1.73sq mKidney failure: <15 mL/min/1.73sq meGFR calculated using average adult body mass. Additional eGFR calculator available at:http://www.[facility]/multiple_crcl_2012.htm Performed By: #### B MP, CBC ####[address] [place] [address] Anion gap 3 molar conc 11 mmol/L Normal - [facility] Comment on above: Performed By: #### B MP, CBC ####[address] [place] [address] BUN/CRE Ratio 18 Normal - [facility] Comment on above: Performed By: #### B MP, CBC ####[address] [place] [address] Calcium mass conc 9.2 mg/dL Normal 8.6-10.4 [facility] Comment on above: Performed By: #### B MP, CBC ####[address] [place] [address] Chloride molar conc 102 mmol/L Normal 98-107 [facility] Comment on above: Performed By: #### B MP, CBC ####[address] [place] [address] CO2 molar conc 26 mmol/L Normal 20-31 [facility] Comment on above: Performed By: #### B MP, CBC ####[address] [place] [address] Creatinine mass conc 0.65 mg/dL Normal 0.50-0.90 [facility] Comment on above: Performed By: #### B MP, CBC ####[address] [place] [address] GFR, Amer >60 Normal >60 [facility] Comment on above: Performed By: #### B MP, CBC ####[address] [place] [address] GFR,non Amer >60 Normal >60 [facility] Comment on above: Performed By: #### B MP, CBC ####[address] [place] [address] Glucose mass conc 89 mg/dL Normal 70-99 [facility] Comment on above: Performed By: #### B MP, CBC ####[address] [place] [address] Potassium molar conc 3.8 mmol/L Normal 3.7-5.3 [facility] Comment on above: Performed By: #### B MP, CBC ####[address] [place] [address] Sodium molar conc 139 mmol/L Normal 135-144 [facility] Comment on above: Performed By: #### B MP, CBC ####[address] [place] [address] Staging: Normal [facility] Comment on above: Result Comment: Stag e 1: Some kidney damage normal GFRStage 2: Mild kidney damage GFR 60-89Stage 3: Moderate kidney damage GFR 30-59Stage 4: Severe kidney damage GFR 15-29Stage 5: Severe kidney damage GFR <15ESRD - chronic treatment by dialysis or transplant Performed By: #### B MP, CBC ####[address] [place] [address] Urea nitrogen mass conc 12 mg/dL Normal 6-20 [facility] Comment on above: Performed By: #### B MP, CBC ####[address] [place] [address] CBCon 04-20-2018 Erythrocyte distribution width Auto Ratio (RBC) 12.1 % Normal 11.8-14.4 [facility] Comment on above: Performed By: #### B MP, CBC ####[address] [place] [address] Hematocrit Auto Volume Fraction (Bld) 42.6 % Normal 36.3-47.1 [facility] Comment on above: Performed By: #### B MP, CBC ####[address] [place] [address] Hemoglobin mass conc (Bld) 14.7 g/dL Normal 11.9-15.1 [facility] Comment on above: Performed By: #### B MP, CBC ####[address] [place] [address] MCH Auto Entitic mass (RBC) 30.2 pg Normal 25.2-33.5 [facility] Comment on above: Performed By: #### B MP, CBC ####[address] [place] [address] MCHC Auto mass conc (RBC) 34.5 g/dL Normal 28.4-34.8 [facility] Comment on above: Performed By: #### B MP, CBC ####[address] [place] [address] MCV Auto Entitic volume (RBC) 87.7 fL Normal 82.6-102.9 [facility] Comment on above: Performed By: #### B MP, CBC ####[address] [place] [address] NRBC Automated 0.0 per 100 WBC Normal 0.0 [facility] Comment on above: Performed By: #### B MP, CBC ####[address] [place] [address] Platelet mean volume Auto Entitic volume (Bld) 10.8 fL Normal 8.1-13.5 [facility] Comment on above: Performed By: #### B MP, CBC ####[address] [place] [address] Platelets Auto #/vol (Bld) 142 10*3/uL Normal 138-453 [facility] Comment on above: Performed By: #### B MP, CBC ####[address] [place] [address] RBC Auto #/vol (Bld) 4.86 10*6/uL Normal 3.95-5.11 [facility] Comment on above: Performed By: #### B MP, CBC ####[address] [place] [address] WBC Auto #/vol (Bld) 6.2 10*3/uL Normal 4.5-13.5 [facility] Comment on above: Performed By: #### B MP, CBC ####[address] [place] [address] HCG, ,Urineon 04-20 HCG.beta subunit ( test) Ql (U) Negative Normal NEG [facility] Comment on above: Result Comment: Spec imens with hCG levels near the threshold of the test (25 mIU/mL) may give a negative or indeterminate result. In such cases, another test should be performed with a new specimen in 48-72 hours. If early is suspected clinically in this setting, correlation with quantitative serum b-hCG level is suggested.[facility] has confirmed the use of plasma for this test. This has not been cleared or approved by the U.S. Food and Drug Administration. The FDA has determined that such clearance is not necessary. Performed By: #### U HCG ####[address] [place] [address] UA w/Reflex Cultureon 2017 Acetoacetic Acid,Ur Negative Normal NEG [facility] Comment on above: Performed By: #### U AX UMICAO ####[address] [place] [address] Bilirubin, SemiQt,Ur Negative Normal NEG [facility] Comment on above: Performed By: #### U AX, UMICAO ####[address] [place] [address] Color YELLOW Normal YEL [facility] Comment on above: Performed By: #### U AX, UMICAO ####[address] [place] [address] Glucose,Semi-qnt,Ur Negative Normal [facility] Comment on above: Performed By: #### U AX, UMICAO ####[address] [place] [address] Hemoglobin, Ur Negative Normal [facility] Comment on above: Performed By: #### U AX, UMICAO ####[address] [place] [address] Leuckocyte Esterase Negative Normal [facility] Comment on above: Performed By: #### U AX, UMICAO ####[address] [place] [address] Nitrite,Ur Negative Normal [facility] Comment on above: Performed By: #### U AX, UMICAO ####[address] [place] [address] PH,Ur 6.0 Normal 5.0-9.0 [facility] Comment on above: Performed By: #### U AX, UMICAO ####[address] [place] [address] Protein, Semi-qnt,Ur Negative Normal NEG [facility] Comment on above: Performed By: #### U AX, UMICAO ####[address] [place] [address] Spec. [place],Ur 1.025 High 1.010-1.020 [facility] Comment on above: Performed By: #### U AX, UMICAO ####[address] [place] [address] Turbidity CLEAR Normal CLEAR [facility] Comment on above: Performed By: #### U AX, UMICAO ####[address] [place] [address] Urobilinogen,Ur Normal Normal NORM [facility] Comment on above: Performed By: #### U AX, UMICAO ####[address] [place] [address] Comment NOT REPORTED Normal [facility] Comment on above: Performed By: #### U AX, UMICAO ####[address] [place] [address] Urinalysis,Microon 8 ----- Normal [facility] Comment on above: Performed By: #### U AX, UMICAO ####[address] [place] [address] Bacteria 1+ Abnormal NONE [facility] Comment on above: Performed By: #### U AX, UMICAO ####[address] [place] [address] Epithelial cells 2 TO 5 Normal 0-25 [facility] Comment on above: Performed By: #### U AX, UMICAO ####[address] [place] [address] RBC Test strip #/vol (U) None Normal 0-2 [facility] Comment on above: Performed By: #### U AX, UMICAO ####[address] [place] [address] Urine WBC's 0 TO 2 Normal 0-5 [facility] Comment on above: Performed By: #### U AX, UMICAO ####[address] [place] [address] Amorphous Sediment NOT REPORTED Normal NONE [facility] Comment on above: Performed By: #### U AX, UMICAO ####[address] [place] [address] Casts NOT REPORTED Normal [facility] Comment on above: Performed By: #### U AX, UMICAO ####[address] [place] [address] Crystals NOT REPORTED Normal [facility] Comment on above: Performed By: #### U AX, UMICAO ####[address] [place] [address] Epithelial, Renal NOT REPORTED Normal 0 [facility] Comment on above: Performed By: #### U AX, UMICAO ####[address] [place] [address] Mucus Strands NOT REPORTED Normal NONE [facility] Comment on above: Performed By: #### U AX, UMICAO ####[address] [place] [address] Other Observations NOT REPORTED [facility] Comment on above: Performed By: #### U AX, UMICAO ####[facility] [place] , [place] [id number] Trichomonas NOT REPORTED Normal NONE [facility] Comment on above: Performed By: #### U AX, UMICAO ####[facility] [place] , [place] [id number] Yeast NOT REPORTED Normal NONE [facility] Comment on above: Performed By: #### U AX, UMICAO ####[facility] [place] , [place] [id number] XR LUMBAR SPINE (2-3 VIEWS)o n 04-20-2018 [...] by:RIVER Jassoigned by:Phil Messer MD04/20/inal result Normal [facility] Otheron 03-08-2018 Negative [facility] Otheron 02-03-2018 Negative [facility] Otheron 01-30-2018 Negative [facility]acon 12-28-2017 Cholesterol [Mass/Vol] 156.0 mg/dL 0-200 [facility] Cholesterol in HDL [Mass/Vol] 54.0 mg/dL 50-100 [facility] Cholesterol in LDL [Mass/Vol] 79.0 mg/dL 0-130 [facility] Triglyceride [Mass/Vol] 116.0 mg/dL 30-150 [facility] Metabolic Panelon 12-28-2017 Albumin [Mass/Vol] 4.70 g/dL 3.7-4.5 [facility] ALP [Catalytic activity/Vol] 83.0 U/L 31-155 [facility] ALT [Catalytic activity/Vol] 15.0 U/L 0-50 [facility] AST [Catalytic activity/Vol] 19.0 U/L 0-40 [facility] Bilirubin [Mass/Vol] 0.70 mg/dL 0.0-1.0 [facility] Protein [Mass/Vol] 7.80 g/dL 6.3-7.9 [facility] Otheron 12-28-2017 Albumin/Globulin [Mass ratio] 1.5 {ratio} 1.0-2.4 [facility] Cholesterol in VLDL [Mass/Vol] 23.0 mg/dL 0-39 [facility] Cholesterol.total/Cho lesterol in HDL [Mass ratio] 3 {ratio} [facility] Negative [facility] CBCon 07-28-2017 Erythrocyte distribution width Auto Ratio (RBC) 11.8 % Normal 11.8-14.4 [facility] Comment on above: Performed By: #### C SEN, CP ####[address] [place] [address] Hematocrit Auto Volume Fraction (Bld) 41.2 % Normal 36.3-47.1 [facility] Comment on above: Performed By: #### C SEN, CP ####[address] [place] [address] Hemoglobin mass conc (Bld) 14.1 g/dL Normal 11.9-15.1 [facility] Comment on above: Performed By: #### C BC, CP ####[address] [place] [address] MCH Auto Entitic mass (RBC) 28.5 pg Normal 25.2-33.5 [facility] Comment on above: Performed By: #### C BC, CP ####[address] [place] [address] MCHC Auto mass conc (RBC) 34.2 g/dL Normal 28.4-34.8 [facility] Comment on above: Performed By: #### C BC, CP ####[address] [place] [address] MCV Auto Entitic volume (RBC) 83.2 fL Normal 82.6-102.9 [facility] Comment on above: Performed By: #### C BC, CP ####[address] [place] [address] NRBC Automated 0.0 per 100 WBC Normal 0.0 [facility] Comment on above: Result Comment: Perf ormed at [address] [place] [address] Performed By: #### C BC, CP ####[address] [place] [address] Platelet mean volume Auto Entitic volume (Bld) 9.9 fL Normal 8.1-13.5 [facility] Comment on above: Performed By: #### C BC, CP ####[address] [place] [address] Platelets Auto #/vol (Bld) 230 10*3/uL Normal 138-453 [facility] Comment on above: Performed By: #### C BC, CP ####[address] [place] [address] RBC Auto #/vol (Bld) 4.95 10*6/uL Normal 3.95-5.11 [facility] Comment on above: Performed By: #### C BC, CP ####[address] [place] [address] WBC Auto #/vol (Bld) 11.8 10*3/uL Normal 4.5-13.5 [facility] Comment on above: Performed By: #### C SEN, CP ####[address] [place] [address] Comp Metabolic Profon 2017 (cont.) Normal [facility] Comment on above: Result Comment: Aver age GFR for 20-29 years old: 116 mL/min/1.73sq mChronic Kidney Disease: <60 mL/min/1.73sq mKidney failure: <15 mL/min/1.73sq meGFR calculated using average adult body mass. Additional eGFR calculator available at:http://[email or web address]/multiple_crcl_2011.htm Performed By: #### C SEN, CP ####[address] [place] [address] Albumin mass conc 4.5 g/dL Normal 3.5-5.2 [facility] Comment on above: Performed By: #### C BC, CP ####[address] [place] [address] Albumin/Globulin mass ratio 1.3 {ratio} Normal 1.0-2.5 [facility] Comment on above: Performed By: #### C BC, CP ####[address] [place] [address] Alkaline Phos 81 U/L Normal 35-104 [facility] Comment on above: Performed By: #### C BC, CP ####[address] [place] [address] ALT enzyme act/vol 23 U/L Normal 5-33 [facility] Comment on above: Performed By: #### C BC, CP ####[address] [place] [address] Anion gap 3 molar conc 13 mmol/L Normal 9-17 [facility] Comment on above: Performed By: #### C BC, CP ####[address] [place] [address] AST enzyme act/vol 23 U/L Normal <32 [facility] Comment on above: Performed By: #### C BC, CP ####[address] [place] [address] Bilirubin Ql (U) 0.23 mg/dL Low 0.3-1.2 [facility] Comment on above: Performed By: #### C BC, CP ####[address] [place] [address] BUN/CRE Ratio 17 Normal 9-20 [facility] Comment on above: Performed By: #### C BC, CP ####[address] [place] [address] Calcium mass conc 9.5 mg/dL Normal 8.6-10.4 [facility] Comment on above: Performed By: #### C BC, CP ####[address] [place] [address] Chloride molar conc 101 mmol/L Normal 98-107 [facility] Comment on above: Performed By: #### C BC, CP ####[address] [place] [address] CO2 molar conc 23 mmol/L Normal 20-31 [facility] Comment on above: Performed By: #### C BC, CP ####[address] [place] [address] Creatinine mass conc 0.69 mg/dL Normal 0.50-0.90 [facility] Comment on above: Performed By: #### C BC, CP ####[address] [place] [address] GFR, Amer >60 Normal >60 [facility] Comment on above: Performed By: #### C BC, CP ####[address] [place] [address] GFR,non Amer >60 Normal >60 [facility] Comment on above: Performed By: #### C BC, CP ####[address] [place] [address] Glucose mass conc 99 mg/dL Normal 70-99 [facility] Comment on above: Performed By: #### C BC, CP ####[address] [place] [address] Potassium molar conc 3.8 mmol/L Normal 3.7-5.3 [facility] Comment on above: Performed By: #### C BC, CP ####[address] [place] [address] Protein mass conc 8.0 g/dL Normal 6.4-8.3 [facility] Comment on above: Performed By: #### C BC, CP ####[address] [place] [address] Sodium molar conc 137 mmol/L Normal 135-144 [facility] Comment on above: Performed By: #### C BC, CP ####[address] [place] [address] Staging: Normal [facility] Comment on above: Result Comment: Stag e 1: Some kidney damage normal GFRStage 2: Mild kidney damage GFR 60-89Stage 3: Moderate kidney damage GFR 30-59Stage 4: Severe kidney damage GFR 15-29Stage 5: Severe kidney damage GFR <15ESRD - chronic treatment by dialysis or transplantPerformed at [address] [place] [id number] [phone] Performed By: #### C BC, CP ####[address] [place] [address] Urea nitrogen mass conc 12 mg/dL Normal 6-20 [facility] Comment on above: Performed By: #### C BC, CP ####[address] [place] [address] HCG, ,Urineon 07-28 HCG.beta subunit ( test) Ql (U) Negative Normal NEG [facility] Comment on above: Result Comment: Spec imens with hCG levels near the threshold of the test (25 mIU/mL) may give a negative or indeterminate result. In such cases, another test should be performed with a new specimen in 48-72 hours. If early is suspected clinically in this setting, correlation with quantitative serum b-hCG level is suggested.[facility] has confirmed the use of plasma for this test. This has not been cleared or approved by the U.S. Food and Drug Administration. The FDA has determined that such clearance is not necessary.Performed at [address] [place] [address] Performed By: #### U HCG, UA ####[address] , [place] [id number] Urinalysis, Routineon 2017 Acetoacetic Acid,Ur Negative Normal NEG [facility] Comment on above: Performed By: #### U HCG, UA ####[address] [place] [address] Bilirubin, SemiQt,Ur Negative Normal NEG [facility] Comment on above: Performed By: #### U HCG, UA ####[address] [place] [address] Color YELLOW Normal YEL [facility] Comment on above: Performed By: #### U HCG, UA ####[address] [place] [address] Glucose,Semi-qnt,Ur Negative Normal NEG [facility] Comment on above: Performed By: #### U HCG, UA ####[address] [place] [address] Hemoglobin, Ur Negative Normal NEG [facility] Comment on above: Performed By: #### U HCG, UA ####[address] [place] [address] Leuckocyte Esterase Negative Normal NEG [facility] Comment on above: Result Comment: Perf ormed at [address] [place] [address] Performed By: #### U HCG, UA ####[address] [place] [address] Nitrite,Ur Negative Normal NEG [facility] Comment on above: Performed By: #### U HCG, UA ####[address] [place] [address] PH,Ur 6.0 Normal 5.0-9.0 [facility] Comment on above: Performed By: #### U HCG, UA ####[address] [place] [address] Protein mass conc Negative Normal NEG [facility] Comment on above: Performed By: #### U HCG, UA ####[address] [place] [address] Spec. [place],Ur 1.025 High 1.010-1.020 [facility] Comment on above: Performed By: #### U HCG, UA ####[address] [place] [address] Turbidity CLEAR Normal CLEAR [facility] Comment on above: Performed By: #### U HCG, UA ####[address] [place] [address] Urobilinogen,Ur Normal Normal NORM [facility] Comment on above: Performed By: #### U HCG, UA ####[address] [place] [address] Comment NOT REPORTED Normal [facility] Comment on above: Performed By: #### U HCG, UA ####[address] [place] [address] [facility] 1172 Cholesterol mass conc 175.0 mg/dL 0-200 Bl [employer] Triglyceride mass conc 58.0 mg/dL 30-150 [facility] 06-07-2016 Basophils #/vol (Bld) 0.0 10*3/uL 0.0-0.1 Bl [employer] Basophils/100 WBC (Bld) 0.30 % 0.0-1.0 [facility] Eosinophils #/vol (Bld) 0.10 10*3/uL 0.0-0.5 [facility] Eosinophils/100 WBC (Bld) 1.80 % 0.0-7.0 [facility] Hematocrit Volume Fraction (Bld) 40.50 % 35.7-47.1 [facility] Hemoglobin mass conc (Bld) 13.60 g/dL 11.9-15.7 [facility] Lymphocytes #/vol (Bld) 3.40 10*3/uL 0.9-3.1 [facility] Lymphocytes/100 WBC (Bld) 41.0 % 28.0-42.0 [facility] MCH Entitic mass (RBC) 29.60 pg 23.2-33.3 [facility] [employer] MCV Entitic volume (RBC) 88.40 fL 82.0-98.4 [facility] [employer] [facility] Monocytes #/vol (Bld) 0.60 10*3/uL 0.3-1.0 B [facility] [employer] [facility] Monocytes/100 WBC (Bld) 7.40 % 4.0-12.0 [facility] [employer] Neutrophils #/vol (Bld) 4.20 10*3/uL 1.8-7.9 [facility] [employer] [facility] Neutrophils/100 WBC (Bld) 49.50 % 45.6-68.4 [facility] [employer] Platelets #/vol (Bld) 225.0 10*3/uL 150-400 [facility] [employer] [facility] RBC #/vol (Bld) 4.580 10*6/uL 3.72-5.24 [facility] [employer] WBC #/vol (Bld) 8.30 10*3/uL 3.9-10.3 [facility] [employer] Metabolic Panelon 06-07-2016 Albumin mass conc 4.40 g/dL 3.7-4.5 [facility] [employer] ALP enzyme act/vol 77.0 U/L 31-155 [facility] [employer] ALT enzyme act/vol 17.0 U/L 0-50 [facility] [employer] AST enzyme act/vol 21.0 U/L 0-40 [facility] [employer] Bilirubin mass conc 0.40 mg/dL 0.0-1.0 [facility] [employer] Protein mass conc 7.40 g/dL 6.3-7.9 [facility] [employer] Otheron 06-07-2016 Albumin/Globulin mass ratio 1.5 {ratio} 1.0-2.4 [facility] [employer] Erythrocyte distribution width Ratio (RBC) 11.80 % 11.5-15.5 [facility] [employer] MCHC mass conc (RBC) 33.50 g/dL 32.0-36.0 [facility] [employer] Platelet mean volume Entitic volume (Bld) 9.0 fL 7.4-10.4 [place] [employer] Negative [place] [employer] Otheron 04-23-2016 Negative [place] [employer] Otheron 03-19-2016 Negative [place] [employer] [facility] 02-12-2016 Cholesterol mass conc 175.0 mg/dL 0-200 Bl [facility] [employer] Triglyceride mass conc 59.0 mg/dL 30-150 [place] [employer] Hematologyon 02-12-2016 Basophils #/vol (Bld) 0.10 10*3/uL 0.0-0.1 B [facility] [employer] Basophils/100 WBC (Bld) 0.90 % 0.0-1.0 [place] [employer] Eosinophils #/vol (Bld) 0.10 10*3/uL 0.0-0.5 [place] [employer] Eosinophils/100 WBC (Bld) 1.70 % 0.0-7.0 [facility] Volume Fraction (Bld) 41.60 % 35.7-47.1 [...] Monocytes #/vol (Bld) 0.50 10*3/uL 0.3-1.0 B [facility] Monocytes/100 WBC (Bld) 7.20 % 4.0-12.0 [facility] Neutrophils #/vol (Bld) 3.30 10*3/uL 1.8-7.9 [facility] Neutrophils/100 WBC (Bld) 54.10 % 45.6-68.4 [facility] Platelets #/vol (Bld) 180.0 10*3/uL 150-400 [facility] RBC #/vol (Bld) 4.750 10*6/uL 3.72-5.24 [facility] WBC #/vol (Bld) 6.30 10*3/uL 3.9-10.3 [facility] Metabolic Panelon 02-12-2016 Albumin mass conc 4.50 g/dL 3.7-4.5 [facility] [employer] ALP enzyme act/vol 79.0 U/L 31-155 [facility] [employer] ALT enzyme act/vol 21.0 U/L 0-50 [facility] [employer] AST enzyme act/vol 22.0 U/L 0-40 [facility] [employer] Bilirubin mass conc 0.40 mg/dL 0.0-1.0 [facility] [employer] Protein mass conc 7.0 g/dL 6.3-7.9 [facility] [employer] Otheron 02-12-2016 Albumin/Globulin mass ratio 1.8 {ratio} 1.0-2.4 [place] [employer] Erythrocyte distribution width Ratio (RBC) 12.10 % 11.5-15.5 [place] [employer] MCHC mass conc (RBC) 33.60 g/dL 32.0-36.0 [facility] [employer] Platelet mean volume Entitic volume (Bld) 9.70 fL 7.4-10.4 [place] [employer] Negative [facility] [employer] Vital Signs Date Time Vital Sign Value Performing Clinician Facility 10-16-2024 10:46-0400 Body mass index (BMI) [Ratio] 27.21 kg/m2 [facility] Work Phone: [facility] 10-16-2024 10:46-0400 Body weight 65.32 kg [employer] Work Phone: [facility] 10-16-2024 10:46-0400 Diastolic blood pressure 64 mm[Hg] Eleazar Vijaya DO Work Phone: [facility] 10-16-2024 10:46-0400 Systolic blood pressure 108 mm[Hg] Eleazar Vijaya DO Work Phone: [facility] 10-02-2024 09:28-0400 Body mass index (BMI) [Ratio] 26.79 kg/m2 Cheryl Amauri PA Work Phone: [facility] 10-02-2024 09:28-0400 Body weight 64.32 kg Cheryl Amauri PA Work Phone: [facility] 10-02-2024 09:28-0400 Diastolic blood pressure 64 mm[Hg] Cheryl [place] PA Work Phone: [facility] 10-02-2024 09:28-0400 Systolic blood pressure 102 mm[Hg] Cheryl Amauri PA Work Phone: [facility] 09-13-2024 11:01-0400 Body mass index (BMI) [Ratio] 26.07 kg/m2 Eleazar Vijaya DO Work Phone: [facility] 09-13-2024 11:01-0400 Body weight 62.6 kg Eleazar Vijaya DO Work Phone: [facility] 09-13-2024 11:01-0400 Diastolic blood pressure 56 mm[Hg] Eleazar Vijaya DO Work Phone: [facility] 09-13-2024 11:01-0400 Systolic blood pressure 100 mm[Hg] Eleazar Vijaya DO Work Phone: [facility] 08-20-2024 09:57-0400 Body mass index (BMI) [Ratio] 25.32 kg/m2 Eleazar Vijaya DO Work Phone: [facility] 08-20-2024 09:57-0400 Body weight 60.78 kg Eleazar Vijaya DO Work Phone: [facility] 08-20-2024 09:57-0400 Diastolic blood pressure 70 mm[Hg] Eleazar Vijaya DO Work Phone: [facility] 08-20-2024 09:57-0400 Systolic blood pressure 110 mm[Hg] Eleazar Vijaya DO Work Phone: [facility] 07-23-2024 09:44-0400 Body mass index (BMI) [Ratio] 24.53 kg/m2 Cheryl Amauri PA Work Phone: [facility] 07-23-2024 09:44-0400 Body weight 58.88 kg Cheryl Amauri PA Work Phone: [facility] 07-23-2024 09:44-0400 Diastolic blood pressure 66 mm[Hg] Cheryl [place] PA Work Phone: [facility] 07-23-2024 09:44-0400 Systolic blood pressure 102 mm[Hg] Cheryl Baugh PA Work Phone: [facility] 06-26-2024 08:38-0500 Body mass index (BMI) [Ratio] 23.96 kg/m2 Eleazar Vijaya DO Work Phone: [facility] 06-26-2024 08:38-0500 Body weight 57.52 kg Eleazar Vijaya DO Work Phone: [facility] 06-26-2024 08:38-0500 Diastolic blood pressure 58 mm[Hg] Eleazar Vijaya DO Work Phone: [facility] 06-26-2024 08:38-0500 Systolic blood pressure 100 mm[Hg] Eleazar Vijaya DO Work Phone: [facility] 05-28-2024 13:28-0500 Body mass index (BMI) [Ratio] 22.58 kg/m2 Cheryl Amauri PA Work Phone: [facility] 05-28-2024 13:28-0500 Body weight 54.2 kg Cheryl Baugh PA Work Phone: [facility] 05-28-2024 13:28-0500 Diastolic blood pressure 60 mm[Hg] Cheryl Baugh PA Work Phone: [facility] 05-28-2024 13:28-0500 Systolic blood pressure 102 mm[Hg] Cheryl MARIE Work Phone: [facility] 05-18-2024 10:28-050 Body height 154.94 cm [facility] 05-18-2024 10:28-0500 Body mass index (BMI) [Ratio] 21.8 kg/m2 [facility] 05-18-2024 10:28-0500 Body temperature 98 [degF] [facility] 05-18-2024 10:28-050 Body weight 52.33 kg [facility] 05-18-2024 10:28-050 Diastolic blood pressure 66 mm[Hg] [facility] 05-18-2024 10:28-050 Heart rate 89 /min [facility] 05-18-2024 10:28-050 SaO2% (BldA) [Mass fraction] 99 % [facility] 05-18-2024 10:28-050 Systolic blood pressure 104 mm[Hg] [facility] 04-30-2024 10:13-0500 Body mass index (BMI) [Ratio] 21.73 kg/m2 Eleazar Vijaya DO Work Phone: [facility] 04-30-2024 10:13050 Body weight 52.16 kg Eleazar Vijaya DO Work Phone: [facility] 04-30-2024 10:13-0500 Diastolic blood pressure 64 mm[Hg] Eleazar Vijaya DO Work Phone: [facility] 04-30-2024 10:13-0500 Systolic blood pressure 106 mm[Hg] Eleazar Vijaya DO Work Phone: [facility] 03-23-2024 10:10-0500 Body mass index (BMI) [Ratio] 20.86 kg/m2 [facility] Nurse [facility] 03-23-2024 10:10-0500 Body weight 50.08 kg [facility] Nurse [facility] 03-23-2024 10:10-0500 Diastolic blood pressure 60 mm[Hg] [facility] Nurse [facility] 03-23-2024 10:10-0500 Systolic blood pressure 110 mm[Hg] [facility] Nurse [facility] 03-14-2024 13:53-0500 Body mass index (BMI) [Ratio] 20.6 kg/m2 Eleazar Vijaya DO Work Phone: [facility] 03-14-2024 13:53-0500 Body weight 49.44 kg Eleazar Vijaya DO Work Phone: [facility] 03-14-2024 13:53-0500 Diastolic blood pressure 72 mm[Hg] Eleazar Vijaya DO Work Phone: [facility] 03-14-2024 13:53-0500 Systolic blood pressure 110 mm[Hg] Eleazar Vijaya DO Work Phone: [facility] 02-08-2024 13:21-0400 Body height 154.9 cm Eleazar Vijaya DO Work Phone: [facility] 02-08-2024 13:21-0400 Body mass index (BMI) [Ratio] 23.05 kg/m2 Eleazar Vijaya DO Work Phone: [facility] 02-08-2024 13:21-0400 Body weight 55.34 kg Eleazar Vijaya DO Work Phone: [facility] 02-08-2024 13:21-0400 Diastolic blood pressure 64 mm[Hg] Eleazar Vijaya DO Work Phone: [facility] 02-08-2024 13:21-0400 Systolic blood pressure 102 mm[Hg] Eleazar Vijaya DO Work Phone: [facility] 02-02-2024 12:39-0400 Body height 154.94 cm [facility] 02-02-2024 12:39-0400 Body mass index (BMI) [Ratio] 22.4 kg/m2 [facility] 02-02-2024 12:39-0400 Body temperature 98.3 [degF] [facility] 02-02-2024 12:39-0400 Body weight 54 kg [facility] 02-02-2024 12:39-0400 Diastolic blood pressure 64 mm[Hg] [facility] 02-02-2024 12:39-0400 Heart rate 82 /min [facility] 02-02-2024 12:39-0400 Respiratory rate 16 /min [facility] 02-02-2024 12:39-0400 SaO2% (BldA) [Mass fraction] 98 % [facility] 02-02-2024 12:39-0400 Systolic blood pressure 108 mm[Hg] [facility] 01-24-2024 11:38-0400 Body height 154.94 cm [facility] 01-24-2024 11:38-0400 Body mass index (BMI) [Ratio] 22.6 kg/m2 [facility] 01-24-2024 11:38-0400 Body temperature 96.1 [degF] [facility] 01-24-2024 11:38-0400 Body weight 54.43 kg [facility] 01-24-2024 11:38-0400 Diastolic blood pressure 60 mm[Hg] [facility] 01-24-2024 11:38-0400 Heart rate 75 /min [facility] 01-24-2024 11:38-0400 SaO2% (BldA) [Mass fraction] 98 % [facility] 01-24-2024 11:38-0400 Systolic blood pressure 114 mm[Hg] [facility] 01-03-2024 11:26-0400 Body height 154.94 cm [facility] 01-03-2024 11:26-0400 Body mass index (BMI) [Ratio] 23.2 kg/m2 [facility] 01-03-2024 11:26-0400 Body temperature 97.8 [degF] [facility] 01-03-2024 11:26-0400 Body weight 55.79 kg [facility] 01-03-2024 11:26-0400 Diastolic blood pressure 68 mm[Hg] [facility] 01-03-2024 11:26-0400 Heart rate 90 /min [facility] 01-03-2024 11:26-0400 SaO2% (BldA) [Mass fraction] 98 % [facility] 01-03-2024 11:26-0400 Systolic blood pressure 110 mm[Hg] [facility] 07-21-2023 10:20-0400 Body height 154.94 cm [facility] 07-21-2023 10:20-0400 Body mass index (BMI) [Ratio] 27.8 kg/m2 [facility] 07-21-2023 10:20-0400 Body weight 66.67 kg [facility] 07-21-2023 10:20-0400 Diastolic blood pressure 78 mm[Hg] [facility] 07-21-2023 10:20-0400 Heart rate 61 /min [facility] 07-21-2023 10:20-0400 SaO2% (BldA) [Mass fraction] 99 % [facility] 07-21-2023 10:20-0400 Systolic blood pressure 112 mm[Hg] [facility] 03-26-2023 11:30-0500 Body height 154.94 cm Jodie Portillo Other [facility] [employer] Other 03-26-2023 11:30-0500 Body mass index (BMI) [Ratio] 27.96 kg/m2 Jodie Portillo Other [employer] Other 03-26-2023 11:30-0500 Body temperature 98.8 [degF] Jodie Portillo Other [employer] Other 03-26-2023 11:30-0500 Body weight 67.13 kg Jodie Portillo Other [employer] Other 03-26-2023 11:30-0500 Diastolic blood pressure 76 mm[Hg] Jodie Portillo Other [employer] Other 03-26-2023 11:30-0500 Respiratory rate 18 /min Jodie Portillo Other [employer] Other 03-26-2023 11:30-0500 SaO2% (BldA) [Mass fraction] 98 % Jodie Portillo Other [employer] Other 03-26-2023 11:30-0500 Systolic blood pressure 118 mm[Hg] Jodie Portillo Other [employer] Other 10-02-2022 12:25-0400 Body height 154.94 cm Deidra Jimenez Other [employer] Other 10-02-2022 12:25-0400 Body mass index (BMI) [Ratio] 27.43 kg/m2 Deidra Jimenez Other [employer] Other 10-02-2022 12:25-0400 Body temperature 97.7 [degF] Deidra Jimenez Other [employer] Other 10-02-2022 12:25-0400 Body weight 65.86 kg Deidra Jimenez Other [employer] Other 10-02-2022 12:25-0400 Respiratory rate 18 /min Deidra Jimenez Other [employer] Other 10-02-2022 12:25-0400 SaO2% (BldA) [Mass fraction] 97 % Deidra Jimenez Other [employer] Other 05-21-2019 10:42-0500 BMI (Body Mass Index) 23.41 kg/m2 Lyric Rene [employer] 05-21-2019 10:42-0500 Body Temperature 98.8 [degF] Lyric Rene [facility] [employer] 05-21-2019 10:42-0500 Body weight 58.06 kg Lyrci Rene [employer] 05-21-2019 10:42-0500 BP Diastolic 68 mm[Hg] Lyric Rene [employer] 05-21-2019 10:42-0500 BP Systolic 94 mm[Hg] Lyric Rene [employer] 05-21-2019 10:42-0500 BSA (Body Surface Area) 1.59 m2 Lyric [employer] 05-21-2019 10:42-0500 Height 157.48 cm Lyric Pérez [employer] 05-21-2019 10:42-0500 Pulse (Heart Rate) 90 /min Lyric Vill[facility] [employer] 05-11-2019 14:48-0500 BMI (Body Mass Index) 22.95 kg/m2 Hima Rene [employer] [facility] 05-11-2019 14:48-0500 Body Temperature 98.8 [degF] [facility]ima [facility] [employer] 05-11-2019 14:48-0500 Body weight 56.93 kg Hima Silver Renejose elias Clemente [employer] [facility] 05-11-2019 14:48-0500 BP Diastolic 66 mm[Hg] Hima Adrianne Anju [employer] [facility] 05-11-2019 14:48-0500 BP Systolic 110 mm[Hg] Hima Adrianne Renejose elias [employer] [facility] 05-11-2019 14:48-0500 BSA (Body Surface Area) 1.58 m2 Hima Faustinnchard [employer] 05-11-2019 14:48-0500 Height 157.48 cm Hima Adrianne R[employer] 05-11-2019 14:48-0500 Pulse (Heart Rate) 72 /min Himainderjit Faustinnchard Nani lowrycammy [employer] 04-27-2019 15:18-0500 BMI (Body Mass Index) 23.52 kg/m2 [facility]ric [employer] 04-27-2019 15:18-0500 Body Temperature 98.9 [degF] Lyric Rene [employer] 04-27-2019 15:18-0500 Body weight 56.47 kg Lyric Pérez [employer] 04-27-2019 15:18-0500 BP Diastolic 60 mm[Hg] Lyric Pérez [employer] 04-27-2019 15:18-0500 BP Systolic 112 mm[Hg] Lyric Pérez [employer] 04-27-2019 15:18-0500 BSA (Body Surface Area) 1.56 m2 Lyric Pérez [employer] 04-27-2019 15:18-0500 Height 154.94 cm Lyric Pérez [employer] 04-27-2019 15:18-0500 Pulse (Heart Rate) 80 /min Lyricchon Faustinncjose elias rousey [employer] 04-09-2019 13:38-0500 BMI (Body Mass Index) 22.77 kg/m2 Lyric Pérez [employer] 04-09-2019 13:38-0500 Body Temperature 99.4 [degF] Lyric Rene [employer] 04-09-2019 13:38-0500 Body weight 54.66 kg Lyric Pérez [employer] 04-09-2019 13:38-0500 BP Diastolic 70 mm[Hg] Lyric [employer] 04-09-2019 13:38-0500 BP Systolic 120 mm[Hg] Lyric Rene [employer] 04-09-2019 13:38-0500 BSA (Body Surface Area) 1.53 m2 Lyric [employer] 04-09-2019 13:38-0500 Height 154.94 cm Lyric KimNerdies 04-09-2019 13:38-0500 Pulse (Heart Rate) 82 /min Lyric Villarreal [employer] 02-06-2019 16:41-0400 BMI (Body Mass Index) 22.77 kg/m2 Lyric Pérez ReneNerdies 02-06-2019 16:41-0400 Body Temperature 98.8 [degF] Lyric [employer] 02-06-2019 16:41-0400 Body weight 54.66 kg Lyric KimNerdies 02-06-2019 16:41-0400 BP Diastolic 70 mm[Hg] Lyric KimNerdies 02-06-2019 16:41-0400 BP Systolic 112 mm[Hg] Lyric KimNerdies 02-06-2019 16:41-0400 BSA (Body Surface Area) 1.53 m2 Lyric Pérez [employer] 02-06-2019 16:41-0400 Height 154.94 cm Lyric Pérez ReneNerdies 02-06-2019 16:41-0400 Pulse (Heart Rate) 72 /min Lyric Kimhard Cherelle [employer] 10-31-2018 16:58-0400 BMI (Body Mass Index) 23.43 kg/m2 Hima Rene [employer]ir [employer] 10-31-2018 16:58-0400 Body weight 56.25 kg Hima Clemente [employer] 10-31-2018 16:58-0400 BP Diastolic 60 mm[Hg] Hima Clemente [employer] 10-31-2018 16:58-0400 BP Systolic 112 mm[Hg] Hima Clemente [employer] 10-31-2018 16:58-0400 BSA (Body Surface Area) 1.56 m2 Hima Rene [employer]ir [employer] 10-31-2018 16:58-0400 Height 154.94 cm Hima Clemente [employer] 10-31-2018 16:58-0400 Pulse (Heart Rate) 72 /min Hima ma [employer] 10-31-2018 16:58-0400 Weight 56.25 kg Hima Clemente [employer] 08-28-2018 15:49-0400 BMI (Body Mass Index) 22.67 kg/m2 Hima Rene [employer] 08-28-2018 15:49-0400 Body Temperature 98.7 [degF] Hima Andrade [employer] 08-28-2018 15:49-0400 Body weight 54.43 kg Hima Clemente [employer] 08-28-2018 15:49-0400 BP Diastolic 60 mm[Hg] Hima Clemente [employer] 08-28-2018 15:49-0400 BP Systolic 120 mm[Hg] Hima Clemente [employer] 08-28-2018 15:49-0400 BSA (Body Surface Area) 1.53 m2 Hima Rene [employer] 08-28-2018 15:49-0400 Height 154.94 cm Hima Clemente [employer] 08-28-2018 15:49-0400 Pulse (Heart Rate) 66 /min Hima Cardoza [employer] 08-28-2018 15:49-0400 Weight 54.43 kg Hima Clemente [employer] 02-09-2018 12:10-0400 BMI (Body Mass Index) 23.78 kg/m2 Hima Rene [employer] 02-09-2018 12:10-0400 Body Temperature 98.1 [degF] Hima Andrade [employer] 02-09-2018 12:10-0400 Body weight 58.97 kg Hima Clemente [employer] 02-09-2018 12:10-0400 BP Diastolic 80 mm[Hg] Hima Clemente [employer] 02-09-2018 12:10-0400 BP Systolic 104 mm[Hg] Hima Clemente [employer] 02-09-2018 12:10-0400 BSA (Body Surface Area) 1.61 m2 Hima Rene [employer]ir [employer] 02-09-2018 12:10-0400 Height 157.48 cm Hima Clemente [employer] 02-09-2018 12:10-0400 Pulse (Heart Rate) 64 /min Hima Cardoza [employer] 02-09-2018 12:100400 Weight 58.97 kg Hima Clemente [employer] 01-11-2018 15:19-0400 BMI (Body Mass Index) 23.32 kg/m2 Hima Rene [employer] 01-11-2018 15:19-0400 Body weight 57.83 kg Hima Clemente [employer] 01-11-2018 15:19-0400 BP Diastolic 68 mm[Hg] Hima Clemente [employer] 01-11-2018 15:19-0400 BP Systolic 106 mm[Hg] Hima Clemente [employer] 01-11-2018 15:19-0400 BSA (Body Surface Area) 1.59 m2 Hima Rnee [employer] 01-11-2018 15:19-0400 Height 157.48 cm Hima Clemente [employer] 01-11-2018 15:19-0400 Pulse (Heart Rate) 76 /min Hima ma [employer] 01-11-2018 15:19-0400 Weight 57.83 kg Hiam Clemente [employer] 08-01-2017 09:57-0400 BMI (Body Mass Index) 23.59 kg/m2 Hima Rene [employer] 08-01-2017 09:57-0400 Body weight 58.51 kg Hima Clemente [employer] 08-01-2017 09:57-0400 BP Diastolic 60 mm[Hg] Hima Rene [employer] 08-01-2017 09:57-0400 BP Systolic 94 mm[Hg] Hima Rene [employer] 08-01-2017 09:57-0400 BSA (Body Surface Area) 1.6 m2 Hima Rene [employer] 08-01-2017 09:57-0400 Height 157.48 cm Hima Rene [employer] 08-01-2017 09:57-0400 Pulse (Heart Rate) 80 /min Hima Rene [employer] 08-01-2017 09:57-0400 Weight 58.51 kg Hima Rene [employer] 01-13-2017 12:02-0400 BMI (Body Mass Index) 22.59 kg/m2 Hima Rene [employer] 01-13-2017 12:02-0400 Body weight 56.02 kg Hima Rene [employer] 01-13-2017 12:02-0400 BP Diastolic 76 mm[Hg] Hima Rene [employer] 01-13-2017 12:02-0400 BP Systolic 122 mm[Hg] Hima Rene [employer] 01-13-2017 12:02-0400 BSA (Body Surface Area) 1.57 m2 Hima Rene [employer] 01-13-2017 12:02-0400 Height 157.48 cm Hima Rene [employer] 01-13-2017 12:02-0400 Pulse (Heart Rate) 72 /min Hima Cardoza [employer] 01-13-2017 12:02-0400 Weight 56.02 kg Hima Rene [employer] 10-29-2016 16:57-0400 BMI (Body Mass Index) 22.13 kg/m2 Hima Rene [employer] 10-29-2016 16:57-0400 Body weight 54.89 kg Hima Clemente [employer] 10-29-2016 16:57-0400 BP Diastolic 60 mm[Hg] Hima Clemente [employer] 10-29-2016 16:57-0400 BP Systolic 104 mm[Hg] Hima Clemente [employer] 10-29-2016 16:57-0400 BSA (Body Surface Area) 1.55 m2 Hima Rene [employer] 10-29-2016 16:57-0400 Height 157.48 cm Hima Clemente [employer] 10-29-2016 16:57-0400 Pulse (Heart Rate) 68 /min Hima ma [employer] 10-29-2016 16:57-0400 Weight 54.89 kg Hima Clemente [employer] 01-28-2016 17:46-0400 BMI (Body Mass Index) 21.67 kg/m2 Hima Rene [employer] 01-28-2016 17:46-0400 Body weight 53.75 kg Hima Clemente [employer] 01-28-2016 17:46-0400 BP Diastolic 64 mm[Hg] Hima Clemente [employer] 01-28-2016 17:46-0400 BP Systolic 94 mm[Hg] Hima Rene Clemente [employer] 01-28-2016 17:46-0400 BSA (Body Surface Area) 1.53 m2 Hima Rene [employer] 01-28-2016 17:46-0400 Height 157.48 cm Hima Clemente [employer] 01-28-2016 17:46-0400 Pulse (Heart Rate) 64 /min Hima Cardoza [employer] 01-28-2016 17:46-0400 Weight 53.75 kg Hima Clemente [employer] 05-30-2015 16:50-0500 BMI (Body Mass Index) 21.22 kg/m2 Hima Rene [employer] 05-30-2015 16:50-0500 Body Temperature 98 [degF] Hima Andrade [employer] 05-30-2015 16:50-0500 Body weight 52.62 kg Hima Clemente [employer] 05-30-2015 16:50-0500 BP Diastolic 64 mm[Hg] Hima Clemente [employer] 05-30-2015 16:50-0500 BP Systolic 90 mm[Hg] Hima Clemente [employer] 05-30-2015 16:50-0500 BSA (Body Surface Area) 1.52 m2 Hima Rene [employer] 05-30-2015 16:50-0500 Height 157.48 cm Hima Clemente [employer] 05-30-2015 16:50-0500 Pulse (Heart Rate) 92 /min Hima Cardoza [employer] 05-30-2015 16:50-0500 Weight 52.62 kg Hima Clemente [employer] 04-08-2015 16:01-0500 BMI (Body Mass Index) 21.28 kg/m2 Hima Rene [employer] 04-08-2015 16:01-0500 Body Temperature 98.4 [degF] Hima chawla [employer] 04-08-2015 16:01-0500 Body weight 51.94 kg Hima Clemente [employer] 04-08-2015 16:01-0500 BP Diastolic 84 mm[Hg] Hima Clemente [employer] 04-08-2015 16:01-0500 BP Systolic 118 mm[Hg] Hima Clemente [employer] 04-08-2015 16:01-0500 BSA (Body Surface Area) 1.5 m2 Hima Rene [employer] 04-08-2015 16:01-0500 Height 156.21 cm Hima Clemente [employer] 04-08-2015 16:01-0500 Pulse (Heart Rate) 72 /min Hima Cardoza essence [employer] 04-08-2015 16:01-0500 Weight 51.94 kg Hima Clemente [employer] Encounters Encounter Date Encounter Type Care Provider Facility Start: 10-16-2024 End: 10-16-2024 Bamboo flowsheet Eleazar Vijaya DO Work Phone: [facility] Start: 10-16-2024 End: 10-16-2024 Bamboo flowsheet Eleazar Vijaya DO Work Phone: [facility] Start: 10-16-2024 End: 10-16-2024 Clinisync Result Encounter Eleazar Vijaya DO Work Phone: [facility] Unsolicited Start: 10-16-2024 End: 10-16-2024 Office outpatient visit 15 minutes Eleazar Vijaya DO Work Phone: [facility] Comment on above: Third trimester preg chepe; 36 weeks gestation of Start: 10-16-2024 End: 10-16-2024 ambulatory ELEAZAR VIJAYA Not Available Start: 10-14-2024 End: 10-14-2024 Clinisync Result Encounter Eleazar Vijaya DO Work Phone: [facility] Unsolicited Start: 10-14-2024 End: 10-14-2024 Clinisync Result Encounter Eleazar Vijaya DO Work Phone: [facility] Unsolicited Start: 10-02-2024 End: 10-02-2024 Bamboo flowsheet Cheryl [...] End: 09-24-2024 Clinisync Result Encounter Gaye Gurpreet [employer] Work Phone: [facility] Unsolicited Start: 09-24-2024 End: 09-24-2024 Clinisync Result Encounter Gaye Jonesly [employer] Work Phone: [facility] Unsolicited Start: 09-19-2024 End: 09-19-2024 Clinisync Result Encounter Gaye Romeroerly [employer] Work Phone: [facility] Unsolicited Start: 09-19-2024 End: 09-19-2024 Clinisync Result Encounter Gaye Romeroerly [employer] Work Phone: [facility] Unsolicited Start: [...] Clinisync Result Encounter Cheryl MARIE Work Phone: [facility] External Department Unsolicited Start: 07-09-2024 End: 07-11-2024 Clinisync Result Encounter Cheryl MARIE Work Phone: [facility] External Department Unsolicited Start: 06-26-2024 End: 06-26-2024 [...] Patient encounter procedure Cheryl MARIE Work Phone: [facility] Healthcare Start: 05-28-2024 End: 05-28-2024 Periodic preventive med est patient 18-39 yrs Cheryl MARIE Work Phone: [facility] Comment on above: Screening, , for anatomic survey; STD exposure; Vaginal discharge; Well woman exam with routine gynecological exam; Second trimester ; Nausea and vomiting in Start: 05-28-2024 End: 05-28-2024 ambulatory CHERYL BAUGH Not Available Start: 05-18-2024 End: 05-18-2024 ambulatory [facility] Work Phone: Start: 05-18-2024 End: 05-18-2024 Patient encounter procedure [facility] Physician [facility] Work Phone: Start: 04-30-2024 End: 04-30-2024 Bamboo flowsheet Eleazar Vijaya DO Work Phone: [facility] Start: 04-30-2024 End: 04-30-2024 Bamboo flowsheet Eleazar Vijaya DO Work Phone: [facility] Start: 04-30-2024 End: 04-30-2024 Office outpatient visit 15 minutes Eleazar Vijaya DO Work Phone: [facility] Comment on above: 12 weeks gestation o f ; Second trimester Start: 04-30-2024 End: 04-30-2024 ambulatory EELAZAR VIJAYA Not Available Start: 04-18-2024 End: 04-18-2024 ambulatory Susana Alonzo PA-C Facility:[facility] Start: 04-16-2024 End: 04-16-2024 Clinisync Result Encounter Eleazar Vijaya DO Work Phone: [facility] Unsolicited Start: 04-16-2024 End: 04-16-2024 Clinisync Result Encounter Eleazar Vijaya DO Work Phone: [facility] Unsolicited Start: 04-16-2024 Non-patient / Non-visit [facility] Work Phone: Start: 04-13-2024 End: 04-13-2024 Clinisync Result Encounter Eleazar Ivjaya DO Work Phone: [facility] Unsolicited Start: 04-13-2024 End: 04-13-2024 Clinisync Result Encounter Eleazar Vijaya DO Work Phone: [facility] Unsolicited Start: 03-23-2024 End: 03-23-2024 Office outpatient visit 5 minutes [facility] Vijaya Nurse [facility] Comment on above: GA: 7w0d Start: 03-23-2024 End: 03-23-2024 ambulatory ELEAZAR VIJAYA Not Available Start: 03-19-2024 Non-patient / Non-visit [facility] Work Phone: Start: 03-17-2024 Non-patient / Non-visit [facility] Work Phone: Start: 03-14-2024 End: 11-06-2024 Bamboo flowsheet Eleazar Vijaya DO Work Phone: [...] Department Unsolicited Start: 03-08-2024 Non-patient / Non-visit [facility] Work Phone: Start: 03-07-2024 End: 03-07-2024 [facility] Start: 03-02-2024 Non-patient / Non-visit [facility] Work Phone: Start: 02-29-2024 Non-patient / Non-visit [facility] Work Phone: Start: 02-28-2024 Non-patient / Non-visit [facility] Work Phone: Start: 02-28-2024 End: 02-28-2024 Phys/qhp telephone evaluation 5-10 min Eleazar Vijaya DO Work Phone: [facility] Comment on above: Early stage of pregn ana Start: 02-27-2024 Non-patient / Non-visit [facility] Work Phone: Start: 02-21-2024 Non-patient / Non-visit [facility] Physician [facility] Work Phone: Start: 02-08-2024 End: [...] Available Start: 02-02-2024 End: 02-02-2024 Departed Referred SANITARIAN Jodie Portillo Work Phone: [facility] [place] Work Phone: Start: 02-02-2024 End: 02-02-2024 ambulatory Jodie Portillo [facility] Work Phone: Start: 02-02-2024 End: 02-02-2024 Patient encounter procedure [facility] Physician [facility] Work Phone: Start: 01-24-2024 End: 01-24-2024 ambulatory [facility] Work Phone: Start: 01-24-2024 End: 01-24-2024 Patient encounter procedure [facility] Physician [facility] Work Phone: Start: 01-24-2024 End: 01-24-2024 ambulatory [facility] Start: 01-19-2024 Non-patient / Non-visit [facility] Phys[facility] Work Phone: Start: 01-03-2024 End: 01-03-2024 ambulatory [facility] Work Phone: Start: 01-03-2024 End: 01-03-2024 Patient encounter procedure [facility] Physician [facility] Work Phone: Start: 08-10-2023 End: 08-10-2023 ambulatory Ana Maryse Troy SANITARIAN-[employer] Facility:[facility] Start: 07-21-2023 End: 07-21-2023 ambulatory [facility] Work Phone: Start: 07-21-2023 End: 07-21-2023 Patient encounter procedure [facility] Physician [facility] Work Phone: Start: 06-28-2023 ambulatory Amara DE PAZC Facility:[facility] Start: 06-27-2023 End: 06-27-2023 ambulatory Susana MARIE-C Facility:[facility] Start: 06-22-2023 End: 06-22-2023 ambulatory Ana Maryse Troy SANITARIAN[employer] Facility:[facility] Start: 03-26-2023 End: 03-26-2023 ambulatory Jodie Portillo Other [employer] Other Start: 03-26-2023 Office outpatient vi sit 15 minutes Jodie Portillo [facility] Start: 10-02-2022 End: 10-02-2022 ambulatory Deidra Jimenez Other [employer] Other Start: 10-02-2022 Office outpatient ne w 20 minutes Deidra Jimenez [facility] Start: 05-21-2019 Office outpatient vi sit 15 minutes Lyric Pérez Other [facility] Office Start: 05-11-2019 Lab [facility] [place] Other [facility] Office Start: 05-11-2019 Office outpatient vi sit 15 minutes Lyirc Pérez Other [facility] Office Start: 04-27-2019 Office outpatient vi sit 15 minutes Lyric Pérez Other [facility] Office Start: 04-09-2019 Office outpatient vi sit 15 minutes Lyric Pérez Other [facility] Start: 02-06-2019 Office outpatient vi sit 15 minutes Lyric Pérez Other [facility] Office Start: 10-31-2018 Routine general medi brad examination at a [facility] H[facility] Silver [facility] Start: 10-31-2018 Lab [facility] [place] Other [facility] Office Start: 10-31-2018 Office outpatient vi sit 15 minutes Cheryl Dobbins Other [facility] Office Start: 08-28-2018 Lab [facility] [place] Other [facility] Office Start: 08-28-2018 Office outpatient vi sit 15 minutes Cheryl Dobbins Other [facility] Office Start: 04-20-2018 End: 04-20-2018 Emergency department patient visit [facility] Start: 03-08-2018 Lab Enrique sy Other [facility] Office Start: 03-08-2018 Office outpatient vi sit 15 minutes Vinita Ordonez Other [facility] Office Start: 02-09-2018 Office outpatient vi sit 15 minutes Lyric Pérez Other [facility] Office Start: 02-03-2018 End: 02-03-2018 Lab Enrique Ordonez Other [facility] Office Start: 01-30-2018 Lab Enrique sy Other [facility] Office Start: 01-30-2018 Office outpatient vi sit 15 minutes Vinita Ordonez Other [facility] Office Start: 01-11-2018 Office outpatient vi sit 15 minutes Lyric Pérez Other [facility] Office Start: 12-28-2017 Office outpatient vi sit 15 minutes Vinita José Luis Other [facility] Office Start: 12-28-2017 Lab Enrique Scarbenjaminu gh Other [facility] Office Start: 08-01-2017 Office outpatient vi sit 25 minutes Lyric Pérez Other [facility] Office Start: 07-28-2017 End: 07-28-2017 [facility] Start: 01-13-2017 Office outpatient vi sit 15 minutes Rachel Ly Other [facility] Office Start: 10-29-2016 Office outpatient vi sit 15 minutes Rachel Ly Other [facility] Office Start: 06-07-2016 Office outpatient vi sit 15 minutes Enrique José Luis Other [facility] Office Start: 04-23-2016 Office outpatient vi sit 15 minutes Enrique José Luis Other [facility] Office Start: 03-19-2016 Office outpatient vi sit 15 minutes Enrique José Luis Other [facility] Office Start: 02-12-2016 Office outpatient ne w 20 minutes Enrique José Luis Other [facility] Office Start: 01-28-2016 Office outpatient vi sit 15 minutes Lyric Pérez Other [facility] Office Start: 05-30-2015 Office outpatient vi sit 15 minutes Lyric Pérez Other [facility] Office Start: 04-08-2015 Office outpatient ne w 20 minutes Lyric Pérez Other [facility] Office Procedures Date Procedure Procedure Detail Performing Clinician Start: 10-16-2024 US OB BPP W NON-STRESS Eleazar Vijaya DO Work Phone: Start: 10-16-2024 Urnls dip stick/tabl et rgnt non-auto w/o micrscp Eleazar Vijaya DO Work Phone: Start: 10-14-2024 AMNISURE Eleazar Fazi o DO Work Phone: Start: 10-14-2024 [facility] 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 Eleazar Vijaya DO Work Phone: Start: 10-02-2024 US OB BPP W NON-STRESS Eleazar Vijaya DO Work Phone: Start: 09-25-2024 US OB BPP W NON-STRESS Eleazar Vijaya DO Work Phone: Start: 09-24-2024 ALL CBC WITH AUTO DIFF Gaye Vázquez [employer] Work Phone: Start: 09-19-2024 [facility] CMP (CMP) (FOR R EMOTE [facility] USE) Gaye Vázquez [employer] Work Phone: Start: 09-18-2024 US OB GROWTH Eleazar Fazi o DO Work Phone: Start: 09-13-2024 Urnls dip stick/tabl et rgnt non-auto w/o micrscp Eleazar Vijaya DO Work Phone: Start: 08-20-2024 ALL CBC WITH AUTO DIFF Gaye Gurpreet [employer] Work Phone: Start: 08-20-2024 Urnls dip stick/tabl [...] [facility] Start: 05-11-2019 EBV Complete Series Salters adalgisa Pérez Start: 04-27-2019 Doc meds verified [...] stick/tabl et rgnt auto w/o microscopy [facility] [employer] Start: 04-20-2018 Radex spine lumbosac ral 2/3 views TALON CARONE Start: 04-20-2018 Basic metabolic pane l calcium total TALON CARONE Start: 04-20-2018 Blood count complete automated TALON CARONE Start: 04-20-2018 Microscopic urinalysis TALON CARONE Start: 04-20-2018 Urine test visual color cmprsn meths TALON CARONE Start: 04-20-2018 URINE RT REFLEX TO CULTURE TALON CARONE Start: 03-08-2018 Doc meds verified w/ pt or re [facility] [employer] Start: 03-08-2018 Urine test visual color cmprsn meths [facility] [employer] Start: 02-09-2018 Doc meds verified w/ pt or re [facility] Adrianne Start: 02-03-2018 Urine test visual color cmprsn meths [facility] Adrianne Start: 01-30-2018 Doc meds verified w/ pt or re [facility] [employer] Start: 01-30-2018 Urine test visual color cmprsn meths [facility] Adrianne Start: 01-11-2018 Doc meds verified w/ pt or re [facility] [employer] Start: 12-28-2017 Doc meds verified w/ pt or re [facility] [employer] Start: 12-28-2017 Gonadotropin chorion ic qualitative [facility] [employer] Start: 12-28-2017 Hepatic function panel [facility] [employer] Start: 12-28-2017 Lipid panel Hima Ri cketts Start: 07-28-2017 CBC TALON CA EDE Start: 07-28-2017 Comprehensive metabo lic 2000 panel - Serum or Plasma TALON CARONE Start: 07-28-2017 , URINE HEATHE R CARONE Start: 07-28-2017 Urinalysis TALON CA EDE Start: 01-13-2017 Doc meds verified w/ pt or re [facility] [employer] Start: 06-07-2016 Assay of triglycerides [facility] [employer] Start: 06-07-2016 Blood count complete auto&auto difrntl wbc [facility] Adrianne Start: 06-07-2016 Cholesterol serum/wh ole blood total [facility] Adrianne Start: 06-07-2016 Gonadotropin chorion ic qualitative [facility] Adrianne Start: 06-07-2016 Hepatic function panel Hima Adrianne Start: 04-23-2016 Urine test visual color cmprsn meths [facility] [employer] Start: 03-19-2016 Urine test visual color cmprsn meths [facility] [employer] Start: 02-12-2016 Assay of triglycerides [facility] [employer] Start: 02-12-2016 Blood count complete auto&auto difrntl wbc [facility] Adrianne Start: 02-12-2016 Cholesterol serum/wh ole blood total [facility] Adrianne Start: 02-12-2016 Gonadotropin chorion ic qualitative [facility] Adrianne Start: 02-12-2016 Hepatic function panel [facility] Silver Plan of Treatment Date Care Activity Detail Author Start: 01-07-2025 Influenza vaccination Influenz a Vaccine (Season Ended) [facility] Healthcare Start: 10-29-2024 End: 10-29-2024 Patient encounter procedure 10/29/2024 8:20 AM EDT Routine [facility] [address] [place] [id number] Eleazar Lilly, DO [address] [place] [address] [facility] Start: 10-23-2024 End: 10-23-2024 Patient encounter procedure 10/23/2024 9:00 AM EDT Routine [facility] [address] [facility] [place] [id number] Eleazar Lilly, DO [address] [place] [address] [facility] Start: 10-16-2024 End: 10-16-2025 CULTURE, GROUP B STREP WITH SUSCEPTIBLITY CULTURE, GROUP B STREP WITH SUSCEPTIBLITY Lab Routine Third trimester Expected: 10/16/2024, Expires: 10/16/2025 [facility] Work Phone: Comment on above: Expected: 10/16/2024 , Expires: 10/16/2025 Start: 10-16-2024 End: 10-16-2024 Patient encounter procedure [facility] Comment on above: Arrived Start: 10-02-2024 End: 10-02-2024 Patient encounter procedure [facility] Comment on above: Arrived Start: 09-27-2024 End: 09-27-2024 Patient encounter procedure 09/27/2024 8:30 AM EDT Routine [facility] [address] [place] [address] Cheryl Baugh PA [address] [place] [address] [facility] Start: 09-13-2024 End: 01-14-2025 US for US OB follow up transabdominal approach Imaging Routine size inconsistent with dates Expected: 09/13/2024, Expires: 01/14/2025 [facility] Work Phone: Comment on above: Expected: 09/13/2024 , Expires: 01/14/2025 Start: 09-13-2024 End: 09-13-2024 Patient encounter procedure 09/13/2024 10:30 AM EDT Routine [facility] [address] [place] [address] Eleazar Lilly, DO [address] [place] [address] Arrived [facility] Comment on above: Arrived Start: 09-10-2024 End: 09-10-2024 Patient encounter procedure 09/10/2024 10:40 AM EDT Routine [facility] [address] [facility] [place] [address] Eleazar Lilly, DO [address] [place] [address] [facility] Start: 08-20-2024 End: 08-20-2024 Patient encounter procedure [facility] Comment on above: Arrived Start: 07-23-2024 End: 07-23-2025 CBC panel - Blood by Automated count CBC Lab Routine Diabetes mellitus screening Expected: 07/23/2024 (Approximate), Expires: 07/23/2025 [facility] Work Phone: Comment on above: Expected: 07/23/2024 (Approximate), Expires: 07/23/2025 Start: 07-23-2024 End: 07-23-2025 Measurement of glucose 1 hour after glucose challenge for glucose tolerance test Glucose tolerance, 1 hour Lab Routine Diabetes mellitus screening Expected: 07/23/2024 (Approximate), Expires: 07/23/2025 [facility] Comment on above: Expected: 07/23/2024 (Approximate), Expires: 07/23/2025 Start: 07-23-2024 End: 07-23-2024 Patient encounter procedure 07/23/2024 10:20 AM EDT Routine [facility] [address] [facility] [address] [id number] Cheryl Baugh PA [address] [place] [address] [facility] Start: 07-23-2024 End: 07-23-2024 Professional / ancillary services management 07/23/2024 9:00 AM EDT Ancillary Procedure [facility] [address] [place] [id number] [facility] Start: 06-26-2024 End: 06-26-2025 US for US OB limited 1+ fetuses Imaging Routine Low-lying placenta Expected: 06/26/2024, Expires: 06/26/2025 [facility] Healthcare Work Phone: Comment on above: Expected: [...] PM EST Routine [facility] [address] [place] [id number] Cheryl Baugh PA [address] [facility] [place] [address] Arrived [facility] Comment on above: Arrived Start: 04-30-2024 End: 04-30-2024 Patient encounter procedure 04/30/2024 10:10 AM EST Routine [facility] [address] [facility] [place] [phone] Eleazar Lilly, DO [address] [place] [address] 12 weeks gestation of ; Second trimester [facility] Comment on above: 12 weeks gestation o f ; Second trimester Start: 04-23-2024 End: 04-23-2024 Patient encounter procedure 04/23/2024 10:50 AM EST Routine [facility] [address] [facility] [place] [address] Eleazar Lilly, DO [address] [place] [address] [facility] Start: 03-23-2024 End: 03-23-2025 [...] Initial [facility] [address] [place] [phone] [facility] Start: 03-23-2024 End: 03-23-2024 Professional / ancillary services management 03/23/2024 9:30 AM EST Ancillary Procedure [facility] [address] [place] [address] [facility] Start: 03-14-2024 End: 03-14-2024 Patient encounter procedure 03/14/2024 1:30 PM EST Office Visit [facility] [address] [place] [id number] Eleazar Lilly, DO [address] [place] [address] Arrived [facility] OB Comment on above: Arrived Start: 02-28-2024 End: 02-28-2024 Patient encounter procedure 02/28/2024 8:10 AM EDT Office Visit [facility] OB [address] [facility] [place] [id number] Eleazar Lilly, DO [address] [facility] [place] [address] [facility] OB Start: 02-08-2024 End: 02-07-2025 SURESWAB(R) ADVANCED VAGINITIS PLUS, TMA SURESWAB(R) ADVANCED VAGINITIS PLUS, TMA Pathology and Cytology Routine Pelvic pain in female Expected: 02/08/2024 (Approximate), Expires: 02/07/2025 [facility] Work Phone: Comment on above: Expected: 02/08/2024 (Approximate), Expires: 02/07/2025 Start: 02-08-2024 End: 02-07-2025 US for US PELVIS-TRANSVAG IF INDICATED Imaging Routine Pelvic pain in female Expected: 02/08/2024 (Approximate), Expires: 02/07/2025 [facility] Comment on above: Expected: 02/08/2024 (Approximate), Expires: 02/07/2025 Start: 02-08-2024 End: 02-08-2024 Patient encounter procedure 02/08/2024 1:20 PM EDT Office Visit [facility] OB [address] [facility] [place] [phone] Eleazar Lilly, DO [address] [place], [place] [phone] Arrived [facility] OB Comment on above: Arrived Start: 02-02-2024 [facility] Start: 01-08-2024 Influenza vaccination Influenza Vacc ine (#1) [facility] Start: 05-11-2019 Blood count complete auto&auto difrntl wbc CBC w diff [facility] Start: 05-11-2019 TSH Qn TSH [facility] Start: 11-02-2018 Blood count complete automated CBC & PLATELET COUNT; AUTOMATED [facility] Start: 11-02-2018 Comprehensive metabo lic panel Comprehensive metabolic panel [facility] Start: 11-02-2018 Gonadotropin chorion ic qualitative SERUM [facility] Start: 11-02-2018 Hemoglobin A1c/Hemoglobin.total mass fraction (Bld) Hgb A1c [facility] Start: 11-02-2018 Lipid panel Lipid panel [facility] Start: 11-02-2018 Thyrotropin Qn TSH (thyroid s timulating hormone) [facility] Start: 11-02-2018 Urnls dip stick/tabl et rgnt auto w/o microscopy UA [facility] Atopobium vaginae DN A [Presence] in Vaginal fluid by ELDON with probe detection [facility] Bacteria identified in Urine by Culture Urine culture Microbiology Routine Missed menses Ordered: 03/23/2024 [facility] Comment on above: Ordered: 03/23/2024 Bacterial vaginosis associated bacterium 2 DNA [Presence] in Vaginal fluid by ELDON with probe detection [facility] CBC W Auto Different ial panel - Blood CBC and differential Lab Routine Missed menses , unspecified gestational age Ordered: 03/23/2024 [facility] Comment on above: Ordered: 03/23/2024 CBC W Auto Different ial panel - Blood CBC and differential Lab Routine Third trimester Ordered: 08/20/2024 [facility] Comment on above: Ordered: 08/20/2024 CHLAMYDIA TRACHOMATI S (GENITO/STI) CHLAMYDIA TRACHOMATIS (GENITO/STI) Lab Routine Pelvic pain in female Ordered: 02/08/2024 [facility] Comment on above: Ordered: 02/08/2024 CHLAMYDIA TRACHOMATI S (GENITO/STI) CHLAMYDIA TRACHOMATIS (GENITO/STI) Lab Routine STD exposure Ordered: 05/28/2024 [facility] Comment on above: Ordered: 05/28/2024 Cytology Cervical or vaginal smear or scraping study Pap Smear Pathology and Cytology Routine Well woman exam with routine gynecological exam Ordered: 05/28/2024 [facility] Comment on above: Ordered: 05/28/2024 Estradiol (E2) [Mass/volume] in Serum or Plasma [facility] Estrogen [Mass/volum e] in Serum or Plasma [facility] Hemoglobin A1c/Hemoglobin.total in Blood Hemoglobin A1c Lab Routine Missed menses , unspecified gestational age Ordered: 03/23/2024 [facility] Comment on above: Ordered: 03/23/2024 Hemoglobin A1c/Hemoglobin.total in Blood Hemoglobin A1c Lab Routine Third trimester Ordered: 08/20/2024 [facility] Work Phone: Comment on above: Ordered: 08/20/2024 Hepatitis B virus surface Ag [Presence] in Serum or Plasma by Immunoassay Hepatitis B surface antigen Lab Routine Missed menses , unspecified gestational age Ordered: 03/23/2024 [facility] Comment on above: Ordered: 03/23/2024 Hepatitis C virus Ab [Presence] in Serum or Plasma by Immunoassay Hepatitis C antibody Lab Routine Missed menses , unspecified gestational age Ordered: 03/23/2024 [facility] Comment on above: Ordered: 03/23/2024 HIV-1/HIV-2 antigen/antibody combination immunoassay HIV-1 and HIV-2 antibodies Lab Routine Missed menses , unspecified gestational age Ordered: 03/23/2024 [facility] Comment on above: Ordered: 03/23/2024 Holter monitor study [facility] Lutropin [Units/volu me] in Serum or Plasma [facility] Megasphaera sp type 1 DNA [Presence] in Vaginal fluid by ELDON with probe detection [facility] Neisseria gonorrhoea e DNA [Presence] in Unspecified specimen by ELDON with probe detection Neisseria gonorrhea DNA probe, direct Lab Routine Pelvic pain in female Ordered: 02/08/2024 [facility] Comment on above: Ordered: 02/08/2024 Neisseria gonorrhoea e DNA [Presence] in Unspecified specimen by ELDON with probe detection Neisseria gonorrhea DNA probe, direct Lab Routine STD exposure Ordered: 05/28/2024 [facility] Comment on above: Ordered: 05/28/2024 Progesterone [Mass/volume] in Serum or Plasma [facility] Reagin Ab [Presence] in Serum by RPR RPR Lab Routine Missed menses , unspecified gestational age Ordered: 03/23/2024 [facility] Comment on above: Ordered: 03/23/2024 Rubella antibody, IgG Rubella an tibody, IgG Lab Routine Missed menses , unspecified gestational age Ordered: 03/23/2024 [facility] Comment on above: Ordered: 03/23/2024 SURESWAB(R) ADVANCED VAGINITIS PLUS, TMA SURESWAB(R) ADVANCED VAGINITIS PLUS, TMA Pathology and Cytology Routine Vaginal discharge Ordered: 05/28/2024 [facility] Comment on above: Ordered: 05/28/2024 XR Cervical spine 5 Views [facility] XR Thoracic and lumb ar spine Views for scoliosis [facility] Payers Date Payer Category Payer Self-pay 2022 Medicaid [id number] 2022 Medicaid [id number] 2. [id number] 2022 Unknown 2015 Unknown [id number] 2.16 .840.1.189304.3.441 2014 Unknown [id number] 1996 Unknown [id number] 2.16.8 40.1.575403.3.579.2.173 1996 Unknown [id number] 2.16.8 40.1.678425.3.579.2.173 1996 Unknown [id number] 2.16. 840.1.789826.3.579.2.196 1996 Unknown [id number] 2.16. 840.1.493298.3.579.2.196 1996 Unknown [id number] 2.16. 840.1.439292.3.579.2.196 1996 Unknown [id number] 2.16. 840.1.331254.3.579.2.196 1996 Unknown [id number] 2.16. 840.1.457214.3.579.2.196 1996 Unknown [id number] 2.16. 840.1.627507.3.579.2.196 1996 Unknown [id number] 2.16. 840.1.745595.3.579.2.196 1996 Unknown [id number] 2.16.8 40.1.162166.3.579.2.9 1996 Unknown [id number] 2.16.84 0.1.733058.3.579.2.1258 1996 Unknown [id number] 2.16.84 0.1.961658.3.579.2.9 1996 Unknown [id number] 2.16.84 0.1.189694.3.579.2.1258 1996 Unknown [id number] 2.16.84 0.1.247174.3.579.2.1258 1996 Unknown [id number] 2.16.84 0.1.364278.3.579.2.1258 1996 Unknown [id number] 2.16.84 0.1.278550.3.579.2.9 1996 Unknown [id number] 2.16.84 0.1.142399.3.579.2.1258 1996 Unknown [id number] 2.16.84 0.1.095510.3.579.2.1258 1996 Unknown [id number] 2.16.84 0.1.891507.3.579.2.9 1996 Unknown [id number] 2.16.84 0.1.464787.3.579.2.9 1996 Unknown [id number] 2.16.84 0.1.558242.3.579.2.1259 Unknown [id number] 2.16.8 40.1.028945.3.579.2.531 Social History Date Type Detail Facility Start: Unknown if ever smoked [facility] Start: 1 can pop/day [facility] Sex Assigned At [facility] Other Start: 07-21-2023 End: 02-02-2024 Tobacco smoking status NHIS Never smoked tobacco (finding) [facility] Start: 1995 Sex Assigned At Female F [facility] Tobacco smoking status [facility] Tobacco smoking consumption unknown [facility] Start: 1995 Sex assigned at Not on file [facility] Start: 02-17-2024 [facility] Start: 05-18-2024 Sex Female (finding) [facility] Clinical Notes 10-02-2022 to 10-16-2024 Yaneli Xavier LPN - 10/16/2024 10:10 AM CYNTHIA Hurd - 10/02/2024 9:10 AM EDTMjulio Cormier MA - 09/13/2024 10:30 AM Vic Ayala LPN - 08/20/2024 9:50 AM EDT Note Date & Type Note Facility 10-16-2024 History of Present illness Narrative Reason for [...] nursing note reviewed. Exam conducted with a yeast maker present. Vitals: Estimated body mass index is 27.21 kg/m as calculated from the following: Height [...] Eleazar Lilly DO documented in this encounter [facility] 10-02-2024 History of Present illness Narrative Reason [...] CYNTHIA Del Cid documented in this encounter [facility] 09-13-2024 History of Present illness Narrative Reason [...] Eleazar Lilly DO documented in this encounter [facility] 08-20-2024 History of Present illness Narrative Reason [...] nursing note reviewed. Exam conducted with a yeast maker present. Vitals: Estimated body mass index is [...] of: LYNN Duran documented in this encounter [facility] 07-23-2024 History of Present illness Narrative Reason [...] CYNTHIA Del Cid documented in this encounter [facility] 06-26-2024 History of Present illness Narrative Reason [...] nursing note reviewed. Exam conducted with a yeast maker present. Vitals: Estimated body mass index is [...] Eleazar Lilly DO documented in this encounter [facility] 05-28-2024 History of Present illness Narrative Reason for Appointment: Patient ID: Giancralo Celaya is a 28 y.o. female who [...] nursing note reviewed. Exam conducted with a yeast maker present. Vitals: Estimated body mass index is [...] obtained without difficulty and patient was given [facility] order to have obtained. Orders Placed This Encounter Procedures US OB 14+ weeks anatomy scan Alpha fetoprotein, maternal CHLAMYDIA TRACHOMATIS (GENITO/STI) Neisseria gonorrhea DNA probe, direct POCT urinalysis dipstick manually resulted Follow Up: Patient is to return to our office in 4 weeks for routine OB appointment Documented by Nimco Mojica LPN on behalf of: CYNTHIA Del Cid documented in this encounter [facility] 04-30-2024 History of Present illness Narrative Reason [...] Eleazar Lilly DO documented in this encounter [facility] 03-23-2024 History of Present illness Narrative Reason [...] or undercooked meat, and stay away from [facility]. Patient has also been advised to [...] Alana Gongora LPN documented in this encounter [facility] 03-14-2024 History of Present illness Narrative Reason [...] nursing note reviewed. Exam conducted with a yeast maker present. Vitals: Estimated body mass index is [...] Eleazar Lilly DO documented in this encounter [facility] 03-02-2024 Note Patient Education Ma terials Name: Giancarlo Celaya Current Date: 03/02/2024 06:56:41 [place] : 1995 The following sheet(s) are the Patient Education Leaflets for Manjinder, Giancarlo Zuleyka Oncology Breast Health: Breast Self-Awareness What is [...] breast self-exam (BSE). These experts include the [place] [employer] and the [place] [employer]. Some experts [...] This means they are not cancer. ? [id number] [employer]. All rights reserved. This information is not intended as a substitute for professional medical care. Always follow your healthcare professional's instructions. [facility] 02-28-2024 History of Present illness Narrative Reason for Appointment: Patient ID: Giancarlo Celaya is a 28 y.o. female who presents for Telehealth (Pt had ultrasound and positive HCG) Patient presents today via telephone call for a telehealth appointment. Patients Phone #: [phone] (mobile) Current Medications: has a current medication [...] Eleazar Lilly DO documented in this encounter [facility] 02-08-2024 History of Present illness Narrative Reason [...] nursing note reviewed. Exam conducted with a yeast maker present. Vitals: Estimated body mass index is [...] Eleazar Lilly DO documented in this encounter [facility] 03-26-2023 Evaluation note Encounter Date Diagnosis Assessment [...] verbalized understanding and agrees with treatment plan [facility] 05-27-2023 Evaluation note* Encounter Date Diagnosis [...] no improvement in 2 to 3 days [facility] Other Evaluation note* Diagnosis Onset Date Resolution Status Acquired scoliosis acute Daily headache acute Fatigue acute Hot flashes acute Irregular menstrual cycle ac hans Neck pain acute [facility] Work Phone: evaluation note* Diagnosis Onset Date Resolution Status Dizziness acute Heart palpitations acute [facility] Work Phone: evaluation note* Diagnosis Onset Date Resolution Status Dizziness acute Heart palpitations acute Anxiety acute Depression acute [facility] Work Phone: evaluation note* Diagnosis Onset Date Resolution Status Dizziness acute Heart palpitations acute Anxiety acute Depression acute Vaginal discharge noneactive Acute effusion of both middle ears noneactive [facility] Work Phone: evaluation note* Diagnosis Pelvic pain in female Unspecified [...] tube dysfunction acute May 18, 2024 10:24am [facility] Work Phone: evaluation note* Diagnosis Screening, , for anatomic survey [...] and vulvovaginitis documented [facility] Diagnosis Third trimester state, incidental 36 weeks gestation of documented in this encounter [facility] Summary [...] and content) DATE CREATED AUTHOR 04/25/2018 Hannah valerio DATE CREATED AUTHOR AUTHOR'S ORGANIZ ATION 12/02/2019 [facility] DATE CREATED AUTHOR AUTHOR'S ORGANIZ ATION 02/06/2024 [facility] DATE CREATED AUTHOR AUTHOR'S ORGANIZ ATION 05/26/2024 [facility] DATE CREATED AUTHOR AUTHOR'S ORGANIZ ATION 10/17/2024 [facility] EPIC REASON FOR VISIT (unrecogniz [...] Member Role Status Dates Evelyn Vu APRN [employer]OCK UP [employer]SEMBLER-C Primary Care Provider Active Team Status: Inactive Member Role Status Dates Evelyn Vu APRN [employer] ASSEMBLER-C Primary Care Provider, Attending Provider Active Start: July 21, 2023 End: July 21, 2023 Team Status: Inactive Member Role Status Dates Evelyn Vu APRN [employer] UP ASSEMBLER-C Primary Care Provider, Attending Provider Active Start: January 03, 2024 End: January 03, 2024 Team Status: Active Member Role Status Dates Evelyn Vu APRN [employer] UP ASSEMBLER-C Primary Care Provider Active Start: January 072023 Ty Aguilar DO Attending Provider Active S tart: January 19, 2024 Team Status: Inactive Member Role Status Dates Evelyn Vu APRN [employer] UP ASSEMBLER-C Primary Care Provider, Attending Provider Active Start: January 24, 2024 End: January 24, 2024 Team Status: Inactive Member Role Status Dates Evelyn Vu APRN [employer] UP ASSEMBLER-C Primary Care Provider Active Start: January 082023 End: February 02, 2024 Jodie Portillo APRN Attending Provider Active Start: February 02, 2024 End: February 02, 2024 Team Status: Inactive Member Role Status Dates Jodie Portillo APRN Attending Provider Active Start: February 02, 2024 End: February 02, 2024 Principal Quality Engineer Relationship Specialty Start Date End Date Corwin Dee DO [address] [place] [address] PCP - General Family Medicine 09/14/22 Principal Quality Engineer Relationship Specialty Start Date End Date Corwin Dee DO [address] [place] [address] PCP - General Family Medicine 09/14/22 Principal Quality Engineer Relationship Specialty Start Date End Date Corwin Dee, DO [address] [place] [address] PCP - General Family Medicine 09/14/22 Principal Quality Engineer Relationship Specialty Start Date End Date Corwin Dee, DO [address] [place] [address] PCP - General Family Medicine 09/14/22 Principal Quality Engineer Relationship Specialty Start Date End Date Unallocated, Berto Bermudez MD [facility] [place] [address] PCP - General Family Medicine 02/28/24 Principal Quality Engineer Relationship Specialty Start Date End Date Unallocated, Berto Bermudez MD [facility] [place] [address] PCP - General Family Medicine 02/28/24 Principal Quality Engineer Relationship Specialty Start Date End Date Unallocated, Berto Bermudez MD [facility], [facility] [place] [address] PCP - General Family Medicine 02/28/24 Principal Quality Engineer Relationship Specialty Start Date End Date Unallocated, Berto Bermudez MD [facility] [place] [address] PCP - General Family Medicine 02/28/24 Principal Quality Engineer Relationship Specialty Start Date End Date Unallocated, Berto Bermudez MD [facility] [address] [place] [address] PCP - General Family Medicine 02/28/24 Principal Quality Engineer Relationship Specialty Start Date End Date Unallocated, Berto Bermudez MD [facility] [place] [place] [address] PCP - General Family Medicine 02/28/24 Principal Quality Engineer Relationship Specialty Start Date End Date Unallocated, [facility] [place] [address] PCP - General Family Medicine 02/28/24 Team [...] Active Member Role Status Dates Ty Aguilar , Attending Provider Active S tart: February 29, [...] May 18, 2024 End: May 18, 2024 Principal Quality Engineer Relationship Specialty Start Date End Date Unallocated, [place] [address] PCP - General Family Medicine 02/28/24 Principal Quality Engineer Relationship Specialty Start Date End Date Unallocated, [place] [address] PCP - General Family Medicine 02/28/24 Principal Quality Engineer Relationship Specialty Start Date End Date Unallocated, [place] [address] PCP - General Family Medicine 02/28/24 Principal Quality Engineer Relationship Specialty Start Date End Date Unallocated, Berto Bermudez MD [facility] [address] [place] [address] PCP - General Family Medicine 02/28/24 Principal Quality Engineer Relationship Specialty Start Date End Date Unallocated, Berto Bermudez MD [facility], [facility] [address] [place] [address] PCP - General Family Medicine 02/28/24 Principal Quality Engineer Relationship Specialty Start Date End Date Unallocated, Berto Bermudez MD [facility], [facility] [address] [place] [address] PCP - General [facility] 02/28/24 Principal Quality Engineer Relationship Specialty Start Date End Date Unallocated, Berto Bermudez MD [facility], [facility] [address] [place] [address] PCP - General [facility] Medicine 02/28/24 Principal Quality Engineer Relationship Specialty Start Date End Date Unallocated, Berto Bermudez MD [facility], [facility] [place] [address] PCP - General [facility] 02/28/24 Principal Quality Engineer Relationship Specialty Start Date End Date Unallocated, Berto Bermudez MD [facility], [facility] [place] [address] PCP - General Family Medicine 02/28/24 Goals [...] BE BASED ON THE PRIMARY CLINICAL RECORDS. [employer]. provides no warranty or guarantee of the accuracy or completeness of information in this document.
== END 2024-10-19 08:21 | disposition home or self-care (01) ==
LOC: FBCO 07:33 → FBC 07:35
PROVIDERS: PCP Nurse Practitioner Family; Visit Provider Obstetrics & Gynecology
DX: O26.893 Other specified pregnancy related conditions, third trimester (principal); Z3A.37 37 weeks gestation of pregnancy
CPT/HCPCS: 59025

== ENCOUNTER 2024-10-23 12:49 | Outpatient (OUT) | payer MEDICAID, SELFPAY ==
--- OUTSIDE RECORDS SUMMARY | 2010-07-27 16:35 | XMS_ITS | Encounter Summary ---
Author Organization [facility] Address [address] [place] [address] Care Team Providers Care Vehicle Care Specialist Name Role Phone Unavailable Primary Care Provider Unavailabl e Encounter Details Date Type Department Care Team (Late st Contact Info) Description 07/27/2010 4:35 PM EDT Hospital Encounter [place] [phone] Social History Tobacco Use Types Packs/Day Years [...]
--- OUTSIDE RECORDS SUMMARY | 2024-06-11 09:30 | XMS_ITS ---
Author Organization [facility] Address [address] [place] [address] Care Team Providers Care Java Lead Engineer Name Role Phone Katie Monroe Primary Care Provider Ines Sauceda Unavailable REASON FOR VISIT FILLING Encounters Encounter Location Date Provider Diagnosis [address] [place] [address] 06/11/2024 Ines Hodges Plan Of Treatment No Information Progress Notes * GIANCARLO CELAYA EDOB:1995 (28 yo F)Acc No.[id number]:06/11/2024 Patient: Juan Pablo DAVIS GIANCARLO Peterson Provider: Nagi HODGES DDS :1995 A ge:28 Y S ex:Female Date:06/11/2024 Address:[address] [place] [address], [phone] Pcp:Katie Monroe Subjective: * Chief Complaints: * 1 . FILLING. * Medical History: Objective: * Vitals: Assessment: Plan: * Treatment: * Images: * Electronic signature of Elsie Hodges DDS on 10/23/2024 at 08:06 AM EDT Sign off status: Pending * Provider: Nagi HODGES DDS Date: 0 06/11/2024 Generated for Printi ng/Faxing/eTransmitting on: 0 10/23/2024 08:06 AM EDT
--- OUTSIDE RECORDS SUMMARY | 2024-08-03 10:30 | XMS_ITS ---
Author Organization [facility] Address [address] [place] [address] Care Team Providers Care Md Ophthalmologist Name Role Phone Katie Monroe Primary Care Provider [phone] Ines Sauceda Unavailable REASON FOR VISIT FILLING Encounters Encounter Location Date Provider Diagnosis [address] [place] [address] 08/03/2024 Ines Hodges Plan Of Treatment No Information Progress Notes * GIANCARLO CELAYA EDOB:1995 (28 yo F)Acc No.[id number]:08/03/2024 Patient: Juan Pablo DAVIS GIANCARLO Peterson Provider: Nagi HODGES DDS :1995 A ge:28 Y S ex:Female Date:08/03/2024 Address:[address] [place] [address], [id number] Pcp:Katie Monroe Subjective: * Chief Complaints: * 1 . FILLING. * Medical History: Objective: * Vitals: Assessment: Plan: * Treatment: * Images: * Electronic signature of Elsie Hodges DDS on 10/23/2024 at 08:06 AM EDT Sign off status: Pending * Provider: Nagi HODGES DDS Date: 0 08/03/2024 Generated for Printi ng/Faxing/eTransmitting on: 0 10/23/2024 08:06 AM EDT
--- NOTE | 2024-10-23 | US_ITS ---
[address] [address] Patient Name: GIANCARLO CELAYA MRN: [id number] date: 1995 Sex: F Assigned Patient Location: [facility] Current Patient Location: Accession/Order Number: [id number] Exam Date: 10/23/2024 14:48 Report Date: 10/23/2024 14:49 At the request of: AMALIA CASILLAS DO Procedure: US OB BPP w non-stress Biophysical profile. Reason for exam: Knot of the umbilical cord. Comparison: BPP 10/16/2024 TECHNIQUE: Transabdominal imaging of the gravid uterus was obtained. FINDINGS: Traffic Supervisor reports the BPP is 8 out of 8. BHAVANI is normal at 14.5 cm. heart rate 134bpm. US/US OB BPP w non-stress IMPRESSION: BPP 8 out of 8. Impression dictated by: Celestino Vinson Jr., D.O. 10/23/2024 2:49 PM Dictation Location: [place] [address] Electronically authenticated by: [id number] Y Date: 10/23/2024 14:49
--- OUTSIDE RECORDS SUMMARY | 2024-10-23 12:51 | XMS_ITS | Clinical Summary ---
Author Organization [facility] Address [id number] [address] [place] [address] Care Team Providers Care Manufacturing Engineering Director Name Role Phone Hima Silver MD Primary Care Provider [phone] Social History Tobacco Use Types Packs/Day Years [...] Medical Devices Not on file Care Teams Manufacturing Engineering Director Relationship Specialty Start Date End Date Hima Silver MD [address] [place] [address] PCP - General Internal Medicine 09/14/18
--- OUTSIDE RECORDS SUMMARY | 2024-10-23 12:51 | XMS_ITS | Patient Health Record ---
Author Organization [facility] es Address [address] [place] [address] Care Team Providers Care Animal Science Instructor Name Role Phone Katie Monroe Primary Care Provider Ines Sauceda Unavailable Karthik Castro Unavailable [phone] Swapna Chris Unavailable [phone] Reason For Referral No Information Encounters Encounter Location Date Provider Diagnosis [facility] [address] [place] [address] 12/30/2023 Katie Monroe Necrosis of pulp K04.1 ; Dental caries on pit and fissure surface penetrating into dentin K02.52 ; Acute gingivitis, plaque induced K05.00 ; Cracked tooth K03.81 ; Other dental procedure status Z98.818 and Encounter for dental examination and cleaning with abnormal findings Z01.21 [facility] [address] [place] [address] 01/04/2024 Katie Monroe Assessments Encounter Date Diagnosis (ICD Code) Assessment [...] Coverage Start Date Coverage End Date [employer] [place] [employer] [address] [place] [address] [id number] GIANCARLO CELAYA Self - patient is the insured 4 [employer] [facility] [place] [employer] [address] [place] [address] [id number] GIANCARLO CELAYA Self - patient is the insured 4
--- OUTSIDE RECORDS SUMMARY | 2024-10-23 12:51 | XMS_ITS | Clinical Summary ---
Author Organization [facility] Address [address] [place] [address] Care Team Providers Care House Mover Supervisor Name Role Phone Unavailable Primary Care Provider [...] Plan of Treatment Not on file [place]
[2024-10-23 13:19] VITALS: BP 130/77; PULSE 88
== END 2024-10-23 14:27 | disposition home or self-care (01) ==
LOC: US 12:49 → FBC 12:50
PROVIDERS: PCP Nurse Practitioner Family; Visit Provider Obstetrics & Gynecology
DX: O69.2XX0 Labor and delivery complicated by other cord entanglement, with compression, not applicable or unspecified (principal); Z3A.37 37 weeks gestation of pregnancy
CPT/HCPCS: 76818

== ENCOUNTER 2024-10-26 07:42 | Outpatient (OUT) | payer MEDICAID, SELFPAY ==
--- OUTSIDE RECORDS SUMMARY | 2010-07-27 16:35 | XMS_ITS | Encounter Summary ---
Author Organization [facility] Address [address] [place] [address] Care Team Providers Care Primer Powder Blender Wet Name Role Phone Unavailable Primary Care Provider Unavailabl e Encounter Details Date Type Department Care Team (Late st Contact Info) Description 07/27/2010 4:35 PM EDT Hospital Encounter [place] [phone] Social History Tobacco Use Types Packs/Day Years [...]
--- OUTSIDE RECORDS SUMMARY | 2024-06-08 09:30 | XMS_ITS ---
Author Organization [facility] Address [address] [place] [address] Care Team Providers Care Editing Computer Publisher Name Role Phone Katie Monroe Primary Care Provider Ines Sauceda Unavailable Swapna Chris Unavailable [phone] REASON FOR VISIT PROPHY Encounters Encounter Location Date Provider Diagnosis [facility] [address] [place] [address] 06/08/2024 Swapna Chris Plan Of Treatment No Information Progress Notes * GIANCARLO CELAYA EDOB:1995 (28 yo F)Acc No.[id number]:06/08/2024 Patient: GIANCARLO DAVIDSON Provider: Debora Chris :1995 A ge:28 Y S ex:Female Date:06/08/2024 Address:[address] [place] [address], [id number] Pcp:Katie Monroe Subjective: * Chief Complaints: * 1 . PROPHY. * Medical History: Objective: * Vitals: Assessment: Plan: * Treatment: * Images: * Electronic signature of Misti Chris on 10/26/2024 at 07:44 AM EDT Sign off status: Pending * Provider: Debora Chris Date: 0 06/08/2024 Generated for Printi ng/Faxing/eTransmitting on: 0 10/26/2024 07:44 AM EDT
--- OUTSIDE RECORDS SUMMARY | 2024-06-11 09:30 | XMS_ITS ---
Author Organization [facility] Address [address] [place] [address] Care Team Providers Care Court Abstractor Name Role Phone Katie Monroe Primary Care Provider Ines Sauceda Unavailable REASON FOR VISIT FILLING Encounters Encounter Location Date Provider Diagnosis [address] [place] [address] 06/11/2024 Ines Hodges Plan Of Treatment No Information Progress Notes * GIANCARLO CELAYA EDOB:1995 (28 yo F)Acc No.[id number]:06/11/2024 Patient: Juan Pablo DAVIS GIANCARLO Peterson Provider: Nagi HODGES DDS :1995 A ge:28 Y S ex:Female Date:06/11/2024 Address:[address] [place] [address], [id number] Pcp:Katie Monroe Subjective: * Chief Complaints: * 1 . FILLING. * Medical History: Objective: * Vitals: Assessment: Plan: * Treatment: * Images: * Electronic signature of Elsie Hodges DDS on 10/26/2024 at 07:44 AM EDT Sign off status: Pending * Provider: Nagi HODGES DDS Date: 0 06/11/2024 Generated for Printi ng/Faxing/eTransmitting on: 0 10/26/2024 07:44 AM EDT
--- OUTSIDE RECORDS SUMMARY | 2024-08-03 10:30 | XMS_ITS ---
Author Organization [facility] Address [address] [place] [address] Care Team Providers Care Packer And Carry Out Name Role Phone Katie Monroe Primary Care Provider Ines Sauceda Unavailable [phone] REASON FOR VISIT FILLING Encounters Encounter Location Date Provider Diagnosis [address] [place] [address] 08/03/2024 Ines Hodges Plan Of Treatment No Information Progress Notes * GIANCARLO CELAYA EDOB:1995 (28 yo F)Acc No.[id number]:08/03/2024 Patient: Juan Pablo DAVIS GIANCARLO Peterson Provider: Nagi HODGES DDS :1995 A ge:28 Y S ex:Female Date:08/03/2024 Address:[address] [place] [address], [id number] Pcp:Katie Monroe Subjective: * Chief Complaints: * 1 . FILLING. * Medical History: Objective: * Vitals: Assessment: Plan: * Treatment: * Images: * Electronic signature of Elsie Hodges DDS on 10/26/2024 at 07:44 AM EDT Sign off status: Pending * Provider: Nagi HODGES DDS Date: 0 08/03/2024 Generated for Printi ng/Faxing/eTransmitting on: 0 10/26/2024 07:44 AM EDT
--- OUTSIDE RECORDS SUMMARY | 2024-10-16 10:10 | XMS_ITS | Encounter Summary ---
Author Organization [facility] Address [address] [facility] [place] [address] Care Team Providers Care Watch Dial Stoner Name Role Phone Unallocated, Noms Provider Primary Care [facility] Reason for Visit * Reason Comments Routine Visit Encounter Details Date Type Department Care Team ([facility] st Contact Info) Description 10/16/2024 10:10 AM EDT Routine [facility] BCP OB [address] [facility] [place] [phone] Eleazar Lilly, DO [address] [place] [address] [place] [address] Third trimester ([facility]); 36 weeks gestation of ([facility]) Social History Tobacco Use Types Packs/Day Years [...] Sign Reading Time Taken Comments Blood Pressure 108/64 10/16/2024 10:46 AM EDT Pulse - - Temperature - - Respiratory Rate - - Oxygen Saturation - - Inhaled Oxygen Concentration - - Weight 65.3 kg (144 lb) 10/16/2024 10:46 AM EDT Height - - Body Mass Index 27.21 02/08/2024 1:21 PM EDT documented in this encounter Progress Notes * Yaneli Xavier, SERVICE DESK LEAD - 10/16/2024 10:10 AM EDT Reason for Appointment: Patient ID: [...] nursing note reviewed. Exam conducted with a high school admissions representative present. Vitals: Estimated body mass index is 27.21 kg/m?? as calculated from the following: Height as of 02/08/24: 5' 1 . Weight as of this encounter: 144 lb. BP: 108/64 Patient's last menstrual period was 01/23/2024. ASSESSMENT & PLAN ICD-10-CM 1. Third trimester Z34.93 POCT urinalysis dipstick manually resulted CULTURE, GROUP B STREP WITH SUSCEPTIBLITY CULTURE, GROUP B STREP WITH SUSCEPTIBLITY 2. 36 weeks gestation of Z3A.36 POCT urinalysis dipstick manually resulted Patient is doing well but has complaints of being tired and having maternal discomfort due to . Patient verbalized frequent movement and was instructed to perform kick counts three times per day. labor precautions were given, LARC consent was signed/declined, and GBS was obtained. Cervical check was performed and patient is 3cm dilated. Orders Placed This Encounter Procedures CULTURE, GROUP B STREP WITH SUSCEPTIBLITY POCT urinalysis dipstick manually resulted Follow Up: Patient is to return to office in 1 week for routine OB appointment Documented by Yaneli Xavier LPN on behalf of: Eleazar Lilly DO documented in this encounter Plan of Treatment Upcoming Encounters Date Type Department Care Team (Late st Contact Info) Description 10/29/2024 8:20 AM EDT Routine [facility] BCP OB [address] [facility] [place] [address] Eleazar Lilly DO [address] [place] [address] documented as of this encounter Procedures Procedure Name Priority Date/Time Associated Diagnosis Comments POCT URINALYSIS DIPSTICK Routine 10/16/2024 10:47 AM EDT Third trimester ([facility]) 36 weeks gestation of ([facility]) CULTURE, GROUP B STREP WITH SUSCEPTIBLITY Routine 10/16/2024 10:39 AM EDT Third trimester ([facility]) documented in this encounter Results * (ABNORMAL) POCT urinalysis dipstick manually resulted (10/16/2024 10:47 AM EDT) Color, UA Yellow Clarity, UA Clear Glucose, UA Negative Negative - 2000(110) ++++ mg/dL Comment:small Bilirubin, UA Positive Negative - 4(70) +++ mg/dL Ketones, UA Negative Negative - 160(16) ++++ mg/dL Spec Grav, UA 1.030 1 - 1.03 Blood, UA Negative Negative - 50 Fuad/mcL pH, UA 6.0 5 - 9 Protein, UA Positive Negative - 2000(20) ++++ mg/dL Comment:30 Urobilinogen, UA 0.2 0.2 - 12 mg/dL Leukocytes, UA Negative Negative - 500+++ Sandie/mcL Nitrite, UA Negative Negative - Positive Urine 10/16/2024 10:4 7 AM EDT Eleazar Vijaya DO POINT OF CARE TEST ENTER/EDIT OR DERABLES Final Result * CULTURE, GROUP B STREP WITH SUSCEPTIBLITY (10/16/2024 10:39 AM EDT) Swab 10/16/2024 10:3 9 AM EDT us Eleazar Vijaya DO LAB BLOOD ORDERABLES Final Resul t EXTERNAL LAB documented in this encounter Visit Diagnoses Diagnosis Third trimester ([facility]) state, incidental 36 weeks gestation of ([facility]) documented in this encounter Care Teams Watch Dial Stoner Relationship Specialty Start Date End Date Unallocated, Noms Provider, [place] [address] PCP - General Family Medicine 02/28/24 documented as of this encounter
--- OUTSIDE RECORDS SUMMARY | 2024-10-23 09:00 | XMS_ITS | Encounter Summary ---
Author Organization [facility] Address [address] [facility] [place] [place] [address] Care Team Providers Care Liner Machine Operator Name Role Phone Unallocated, Noms Provider Primary Care Provi [facility] Reason for Visit * Reason Comments Routine Visit Encounter Details Date Type Department Care Team ([facility] Contact Info) Description 10/23/2024 9:00 AM EDT Routine [facility] [address] [facility] [place] [phone] Eleazar Lilly, DO [address] [place] [address] [address] [place], [place] [phone] Third trimester ([facility]); 37 weeks gestation of ([facility]) Social History Tobacco Use Types Packs/Day Years [...] Sign Reading Time Taken Comments Blood Pressure 124/78 10/23/2024 9:06 AM EDT Pulse - - Temperature - - Respiratory Rate - - Oxygen Saturation - - Inhaled Oxygen Concentration - - Weight 66.2 kg (146 lb) 10/23/2024 9:06 AM EDT Height - - Body Mass Index 27.59 02/08/2024 1:21 PM EDT documented in this encounter Progress Notes * Yaneli Xavier, STAFF SONOGRAPHER - 10/23/2024 9:00 AM EDT Reason for Appointment: Patient ID: [...] Diagnosis Date Noted Nausea and vomiting in ([facility]) 04/16/2024 12 weeks gestation of ([facility]) 04/30/2024 Second trimester ([facility]) 04/30/2024 Resolved Ambulatory Problems Diagnosis Date Noted [...] nursing note reviewed. Exam conducted with a shoe reconditioner present. Vitals: Estimated body mass index is 27.59 kg/m?? as calculated from the following: Height as of 02/08/24: 5' 1 . Weight as of this encounter: 146 lb. BP: 124/78 Patient's last menstrual period was 01/23/2024. ASSESSMENT & PLAN ICD-10-CM 1. Third trimester ([facility]) Z34.93 POCT urinalysis dipstick manually resulted 2. 37 weeks gestation of ([facility]) Z3A.37 Return OB: Patient presents today for a routine obstetrics appointment. Patient is currently 37w4d . Patient states she is doing well but has complaints of being tired due to current . Pt has dizziness complaints, discussed concerns-pt advised to stay hydrated Patient has verbalizes frequent movement. labor precautions was discussed/given and patient was instructed to perform kick counts three times a day. Orders Placed This Encounter Procedures POCT urinalysis dipstick manually resulted Follow Up: Patient is to return to office in 1 week for routine OB appointment. Documented by Yaneli Xavier LPN on behalf of: Eleazar Lilly DO documented in this encounter Plan of Treatment Upcoming Encounters Date Type Department Care Team (Late st Contact Info) Description 10/29/2024 8:20 AM EDT Routine [facility] B[facility] OB [address] [place] [address] Eleazar Lilly DO [address] [facility] [place] [address] documented as of this encounter Procedures Procedure Name Priority Date/Time Associated Diagnosis Comments POCT URINALYSIS DIPSTICK Routine 10/23/2024 9:18 AM EDT Third trimester ([facility]) documented in this encounter Results * POCT urinalysis dipstick manually resulted (10/23/2024 9:18 AM EDT) Color, UA Yellow Clarity, UA Clear Glucose, UA Negative Negative - 2000(110) ++++ mg/dL Bilirubin, UA Negative Negative - 4(70) +++ mg/dL Ketones, UA Negative Negative - 160(16) ++++ mg/dL Spec Grav, UA 1.025 1 - 1.03 Blood, UA Negative Negative - 50 Fuad/mcL pH, UA 6.5 5 - 9 Protein, UA Positive Negative - 1999(20) ++++ mg/dL Comment:30 Urobilinogen, UA 0.2 0.2 - 12 mg/dL Leukocytes, UA Negative Negative - 500+++ Sandie/mcL Nitrite, UA Negative Negative - Positive Urine 10/23/2024 9:18 AM EDT Eleazar Lilly DO POINT OF CARE TEST ENTER/EDIT OR DERABLES Final Result documented in this encounter Visit Diagnoses Diagnosis Third trimester ([facility]) state, incidental 37 weeks gestation of ([facility]) documented in this encounter Care Teams Liner Machine Operator Relationship Specialty Start Date End Date Unallocated, Noms Provider, [address] [place] [address] PCP - General Family Medicine 02/28/24 documented as of this encounter
--- OUTSIDE RECORDS SUMMARY | 2024-10-26 07:44 | XMS_ITS | Encounter Summary ---
Author Organization [facility] Address [address] [facility] [place] [address] Care Team Providers Care Unit Clerk Name Role Phone Unallocated, Noms Provider Primary Care [facility] Encounter Details Date Type Department Care Team (Late st Contact Info) Description 03/23/2024 Abstract [facility] OB [address] [facility] [place] [phone] Eleazar Lilly DO [address], [facility] Social History Tobacco Use Types Packs/Day [...] [facility] B[facility] OB [address] [place] [phone] Eleazar Lilly, DO [address] [place], [place] [phone] documented as of this encounter Visit Diagnoses Not on filedocumented in this encounter Care Teams Unit Clerk Relationship Specialty Start Date End Date Unallocated, Noms Provider, [address] [place], [place] [phone] PCP - General Family Medicine 02/28/24 documented as of this encounter
--- OUTSIDE RECORDS SUMMARY | 2024-10-26 07:44 | XMS_ITS | Encounter Summary ---
Author Organization [facility] Address [address] [facility] [place] [address] Care Team Providers Care Social Professionals Name Role Phone LuizCorwin olivarez Primary Care Provider Unallocated, Noms Provider Primary Care [facility] Encounter Details Date Type Department Care Team (Late st Contact Info) Description 02/21/2024 Orders Only [facility] BCP OB [address] [place] [address] Eleazar Lilly DO [facility] [address] [place], [place] [phone] Left ovarian cyst Social History Tobacco Use [...] Department Care Team (Late Contact Info) Description 10/29/2024 8:20 AM EDT Routine [facility] B[facility] OB [address] [place] [address] Eleazar Lilly, DO [address] [place] [address] Scheduled Orders Name Type Priority Associated Diagnoses Orde r Schedule hCG, quantitative Lab Routine Left ovarian cyst Expected: 02/21/2024 (Approximate), Expires: 02/20/2025 documented as of this encounter Visit Diagnoses Diagnosis Left ovarian cyst Other and unspecified ovarian cyst documented in this encounter Care Teams Social Professionals Relationship Specialty Start Date End Date Corwin Dee DO [address] [place] [address] PCP - General Family Medicine 09/14/22 02/27/24 Unallocated, Noms Provider, [place] [address] PCP - General Family Medicine 02/28/24 documented as of this encounter
--- OUTSIDE RECORDS SUMMARY | 2024-10-26 07:44 | XMS_ITS | Encounter Summary ---
Author Organization [facility] Address [address] [facility] [place] [address] Care Team Providers Care Lithostripper Name Role Phone Unallocated, Noms Provider Primary Care [facility] Encounter Details Date Type Department Care Team (Late st Contact Info) Description 03/17/2024 Abstract [facility] OB [address] [facility] [place] [phone] Eleazar Lilly DO [address], [facility] Social History Tobacco Use Types [...] Routine [facility] BCP OB [address] [place] [phone] Eleazar Lilly, DO [address] [place], [place] [phone] documented as of this encounter Visit Diagnoses Not on filedocumented in this encounter Care Teams Lithostripper Relationship Specialty Start Date End Date Unallocated, Noms Provider, [address] [place], [place] [phone] PCP - General Family Medicine 02/28/24 documented as of this encounter
--- OUTSIDE RECORDS SUMMARY | 2024-10-26 07:44 | XMS_ITS | Encounter Summary ---
Author Organization [facility] Address [address] [facility] [place] [address] Care Team Providers Care Director Counseling Bureau Name Role Phone Unallocated, Noms Provider Primary Care [facility] Encounter Details Date Type Department Care Team (Late st Contact Info) Description 03/23/2024 Abstract [facility] OB [address] [facility] [place] [phone] Eleazar Lilly DO [address], [facility] Social History Tobacco Use Types [...] Routine [facility] BCP OB [address] [place] [phone] Eleazar Lilly, DO [address] [place], [place] [phone] documented as of this encounter Visit Diagnoses Not on filedocumented in this encounter Care Teams Director Counseling Bureau Relationship Specialty Start Date End Date Unallocated, Noms Provider, [address] [place], [place] [phone] PCP - General Family Medicine 02/28/24 documented as of this encounter
--- OUTSIDE RECORDS SUMMARY | 2024-10-26 07:44 | XMS_ITS | Encounter Summary ---
Author Organization [facility] Address [address] [place] [address] Care Team Providers Care District Administrator Name Role Phone Unallocated, Noms Provider Primary Care [facility] Encounter Details Date Type Department Care Team (Late st Contact Info) Description 10/16/2024 Clinisync Result Encounter [facility] External Department Unsolicited Amalia Llily, DO [address] [place] [address] Social History Tobacco Use Types Packs/Day Years [...] [facility] B[facility] OB [address] [place] [phone] Amalia Lilly DO [address] [place], [place] [phone] documented as of this encounter Procedures Procedure Name Priority Date/Time Associated Diagnosis Comments US OB BPP W NON-STRESS 10/16/2024 4:19 PM EDT documented in this encounter Results * US OB BPP W NON-STRESS (10/16/2024 4:19 PM EDT) Anatomical Region Laterality Modality Other 10/16/2024 4:19 PM EDT Narrative 10/16/2024 4:21 [place] [address] Ultrasound Report Signed Patient: GIANCARLO CELAYA MR#: [id number] : 1995 Acct:[id number] Age/Sex: 28 / F ADM Date: 10/16/24 Loc: US Attending Dr: Amalia Lilly D.O. Ordering Physician: Amalia Lilly D.O. Date of Service: 10/16/24 Procedure(s): US OB BPP w non-stress Accession Number(s): [id number] cc: Amalia Lilly D.O.; LUDY GRA[place] [address] Patient Name: GIANCARLO CELAYA MRN: [id number] date: 1995 Sex: F Assigned Patient Location: [facility] Current Patient Location: Accession/Order Number: [id number] Exam Date: 10/16/2024 16:18 Report Date: 10/16/2024 16:19 At the request of: AMALIA LILLY DO Procedure: US OB BPP w non-stress Biophysical profile. Reason for exam: Knot of the umbilical cord. Comparison: BPP 10/09/2024. TECHNIQUE: Transabdominal imaging of the gravid uterus was obtained. FINDINGS: Artists[employer] Booking Representative reports the BPP is 8 out of 8. BHAVANI is normal at 12.6 cm. heart rate 132 bpm. US/US OB BPP w non-stress IMPRESSION: BPP 8 out of 8. Impression dictated by: Celestino Vinson Jr., D.O. 10/16/2024 4:19 PM Dictation Location: [place] [address] Electronically authenticated by: [id number] Y Date: 10/16/2024 16:19 Dictated By: Celestino Vinson M.D. Signed By: 10/16/24 1621 DD/ 1619 TD/TT: Machine Coremaker: Procedure Note Radiology, Radiologist, - 10/16/2024 [place] [address] Ultrasound Report Signed Patient: GIANCARLO CELAYA EMR#: [id number] : 1995Acct:[id number] Age/Sex: 28 / FADM Date: 10/16/24 Loc: US Attending Dr: Amalia Lilly D.O. Ordering Physician: Amalia Lilly D.O. Date of Service: 10/16/24 Procedure(s): US OB BPP w non-stress Accession Number(s): [id number] cc: Amalia Lilly D.O.; LUDY GRAFF [place] [address] Patient Name: GIANCARLO CELAYA MRN: [id number] date: 1995 Sex: F Assigned Patient Location: [facility] Current Patient Location: Accession/Order Number: [id number] Exam Date: 10/16/2024 16:18 Report Date: 10/16/2024 16:19 At the request of: AMALIA LILLY DO Procedure: US OB BPP w non-stress Biophysical profile. Reason for exam: Knot of the umbilical cord. Comparison: BPP 10/09/2024. TECHNIQUE: Transabdominal imaging of the gravid uterus was obtained. FINDINGS: Artists' Booking Representative reports the BPP is 8 out of 8. BHAVANI is normal at12.6 cm. heart rate 132 bpm. US/US OB BPP w non-stress IMPRESSION: BPP 8 out of 8. Impression dictated by: Vy Qiu Jr.OJory 10/16/2024 4:19 PM Dictation Location: [place] [address] Electronically authenticated by: [id number] Y Date: 6:19 Dictated By: Celestino Vinson M.D. Signed By:10/16/24 1621 DD/ 1619 TD/TT: Machine Coremaker: us Amalia Vijaya DO [facility] Final Result documented in this encounter Visit Diagnoses Not on filedocumented in this encounter Care Teams District Administrator Relationship Specialty Start Date End Date Unallocated, Noms Provider, [address] [place] [address] PCP - General Family Medicine 02/28/24 documented as of this encounter
--- OUTSIDE RECORDS SUMMARY | 2024-10-26 07:45 | XMS_ITS | Encounter Summary ---
Author Organization [facility] Address [address] [facility] [place] [address] Care Team Providers Care Perinatal Educator Name Role Phone Unallocated, Noms Provider Primary Care [facility] Encounter Details Date Type Department Care Team (Late st Contact Info) Description 10/12/2024 Telephone [facility] BCP OB [address] [facility] [phone] Shalonda Anderson MA Social History Tobacco Use [...] AM EDT Routine [facility] BCP OB [address] [facility] [place] [phone] Eleazar Lilly, [address] [place] [address] documented as of this encounter Visit Diagnoses Not on filedocumented in this encounter Care Teams Perinatal Educator Relationship Specialty Start Date End Date Unallocated, Noms Provider, [place] [address] PCP - General Family Medicine 02/28/24 documented as of this encounter
--- OUTSIDE RECORDS SUMMARY | 2024-10-26 07:45 | XMS_ITS | Clinical Summary ---
Author Organization [facility] Address [address] [facility] [place] [address] Care Team Providers Care Manager Client Name Role Phone Unallocated, Noms Provider Primary Care Provi kamille Allergies No known active allergies Medications fluticasone (Flonase) 50 MCG/ACT nasal spray USE 1 SPRAY IN EACH NOSTRIL TWICE A DAY 05/18/19 25 Active ondansetron ODT (Zofran-ODT) 4 MG disintegrating tabletIndications:N ausea and vomiting in ([facility]) Take 1 tablet (4 mg) by mouth every 6 (six) hours if needed for nausea or vomiting for up to 30 doses 30 tablet 3 09/28/19 25 Active ondansetron ODT (Zofran-ODT) 4 MG disintegrating tabletIndications:N ausea and vomiting in ([facility]) Take 1 tablet (4 mg) by [...] Date Diagnosed Date 12 weeks gestation of ([facility]) 2023 Second trimester ([facility]) 04/30/2024 Nausea and vomiting in ([facility]) 04/16 Estimated Date of Delivery Comme nts Yes 11/09/2024 Based on Ultraso und Encounters Date Type Department Care Team Description 10/23/2024 9:00 AM EDT Routine [facility] [address] [place] [address] Amalia Lilly, Third trimester ([facility]); 37 weeks gestation of ([facility]) 10/23/2024 Clinisync Result Encounter NOMS External Department Unsolicited Amalia Lilly, DO 10/23/2024 Bamboo flowsheet [facility] [address] [place] [address] Amalia Lilly, 10/16/2024 10:10 AM EDT Routine [facility] [address] [place] [address] Amalia Lilly, Third trimester ([facility]); 36 weeks gestation of ([facility]) 10/16/2024 Clinisync Result Encounter NOMS External Department Unsolicited Amalia Lilly, DO 10/16/2024 Bamboo flowsheet [facility] [address] [place] [address] Amalia Lilly, DO 10/14/2024 Clinisync Result Encounter NOMS External Department Unsolicited Amalia Lilly, 10/12/2024 Telephone [facility] OB [facility] [place] [address] Shalonda Anderson MA 10/10/2024 Telephone [facility] [address] [place] [address] Amalia Lilly, 10/09/2024 Clinisync Result Encounter NOMS External Department Unsolicited Amalia Lilly, DO 10/02/2024 9:10 AM EDT Routine [facility] OB [address] [place] [address] [place] [address] Cheryl Baugh PA Third trimester ([facility]); 34 weeks gestation of ([facility]); BV (bacterial vaginosis) 10/02/2024 Clinisync Result Encounter [facility]OMS External Department Unsolicited Amalia Lilly, DO 10/02/2024 Bamboo flowsheet [facility] [address] [facility] [place] [address] Cheryl Baugh PA 09/27/2024 Refill [facility] OB [address] [place] [address] [place] [address] Nimco Mojica, MANAGING MANAGER Nausea and vomiting in ([facility]) 09/25/2024 Clinisync Result Encounter NOMS External Department Unsolicited Amalia Lilly, DO 09/24/2024 Clinisync Result Encounter [facility]OMS External Department Unsolicited Gaye Vázquez, ACOUSTIC INTELLIGENCE SPECIALIST 09/24/2024 Results Follow-Up [facility] OB [address] [place] [address] [place] [address] Nimco Mojica, MANAGING MANAGER 09/24/2024 Telephone [facility] [address] [facility] [place] [address] Nimco Mojica, MANAGING MANAGER 09/21/2024 Telephone [facility] OB [address] [place] [address] [place] [phone] Monica Ayala, MANAGING MANAGER 09/21/2024 Telephone [facility] [address] [facility] [place] [address] Shalonda Anderson MA 09/19/2024 Clinisync Result Encounter [facility]OMS External Department Unsolicited Gaye Vázquez, ACOUSTIC INTELLIGENCE SPECIALIST 09/19/2024 Telephone [facility] OB [address] [place] [address] [place] [address] Shalonda Anderson MA 09/18/2024 Clinisync Result Encounter NOMS External Department Unsolicited Amalia Lilly DO 09/13/2024 10:30 AM EDT Routine [facility] OB [address] [place] [address] [place] [address] Amalia Lilly, Third trimester ([facility]); 31 weeks gestation of ([facility]); size inconsistent with dates ([facility]) 09/13/2024 Bamboo flowsheet [facility]OM[facility] [address] [place] [address] Amalia Lilly DO 09/03/2024 [address] [facility] [address] [place] [address] Nga Cormier MA 08/20/2024 9:50 AM EDT Routine [facility] [address] [place] [address] Amalia Lilly DO Third trimester ([facility]) 08/20/2024 Clinisync Result Encounter [facility]OMS External Department Unsolicited Gaye Vázquez NP 08/20/2024 Bamboo flowsheet [facility]OM[facility] [address] [place] [address] Amalia Lilly DO from Last 3 Months Family History Medical [...] (146 lb) 10/23/2024 9:06 AM EDT Height 154.9 cm (5' 1 ) 02/08/2024 1:21 PM EDT Body Mass Index 27.59 02/08/2024 1:21 PM EDT Plan of Treatment Upcoming Encounters Date Type Department Care Team (Late st Contact Info) Description 10/29/2024 8:20 AM EDT Routine [facility] OB [address] [facility] [place] [address] Amalia Lilly, DO [address] [facility] [place] [address] Health Maintenance Due Date Last Done Comments Influenza Vaccine (Season Ended) 2025 Procedures Procedure Name Priority Date/Time Associated Diagnosis Comments US OB BPP W NON-STRESS 10/23/2024 2:49 PM EDT POCT URINALYSIS DIPSTICK Routine 10/23/2024 9:18 AM EDT Third trimester ([facility]) US OB BPP W NON-STRESS 10/16/2024 4:19 PM EDT POCT URINALYSIS DIPSTICK Routine 10/16/2024 10:47 AM EDT Third trimester ([facility]) 36 weeks gestation of ([facility]) CULTURE, GROUP B STREP WITH SUSCEPTIBLITY Routine 10/16/2024 10:39 AM EDT Third trimester ([facility]) AMNISURE Routine 10/14/2024 12:08 PM EDT [facility] URINE MICROSCOPIC ONLY Routine 10/14/2024 12:00 PM EDT [facility] UA (CLEAN/CATCH) PARA EDUCATOR/MICRO IF IND. Routine 10/14/2024 12:00 PM EDT [...] EDT ALL CBC WITH AUTO DIFF Routine 4:47 PM EDT [facility] CMP (CMP) (FOR REMOTE [facility] USE) Routine 09/19/2024 2:31 PM EDT US OB GROWTH 09/18/2024 4:30 PM EDT POCT URINALYSIS DIPSTICK Routine 09/13/2024 11:01 AM EDT Third trimester ([facility]) MLR HEMOGLOBIN A1C Routine 08/20/2024 10 :54 AM EDT ALL CBC WITH AUTO DIFF Routine 10:54 AM EDT POCT URINALYSIS DIPSTICK Routine 08/20/2024 10:05 AM EDT Third trimester ([facility]) from Last 3 Months Results * US OB BPP W NON-STRESS (10/23/2024 2:49 PM EDT) Only the most recent of5 resultswithin the time period is included. Anatomical Region Laterality Modality Other 10/23/2024 2:49 PM EDT Narrative 10/23/2024 2:52 [place] [address] Ultrasound Report Signed Patient: GIANCARLO CELAYA MR#: [id number] : 1995 Acct:[id number] Age/Sex: 28 / F ADM Date: 10/23/24 Loc: US Attending Dr: Amalia Lilly D.O. Ordering Physician: Amalia Lilly D.O. Date of Service: 10/23/24 Procedure(s): US OB BPP w non-stress Accession Number(s): [id number] cc: Amalia Lilly D.O.; LUDY GRAFF [place] [address] Patient Name: GIANCARLO CELAYA MRN: [id number] date: 1995 Sex: F Assigned Patient Location: [facility] Current Patient Location: Accession/Order Number: [id number] Exam Date: 10/23/2024 14:48 Report Date: 10/23/2024 14:49 At the request of: AMALIA LILLY DO Procedure: US OB BPP w non-stress Biophysical profile. Reason for exam: Knot of the umbilical cord. Comparison: BPP 10/16/2024 TECHNIQUE: Transabdominal imaging of the gravid uterus was obtained. FINDINGS: Donor Relations Manager reports the BPP is 8 out of 8. BHAVANI is normal at 14.5 cm. heart rate 134bpm. US/US OB BPP w non-stress IMPRESSION: BPP 8 out of 8. Impression dictated by: Celestino Vinson Jr., D.O. 10/23/2024 2:49 PM Dictation Location: [place] [address] Electronically authenticated by: [id number] Y Date: 10/23/2024 14:49 Dictated By: Celestino Vinson M.D. Signed By: 10/23/24 1452 DD/ 1449 TD/TT: Trade Mark Attorney: Procedure Note Radiology, Radiologist, - 10/23/2024 [place] [address] Ultrasound Report Signed Patient: GIANCARLO CELAYA EMR#: [id number] : 1995Acct:[id number] Age/Sex: 28 / FADM Date: 10/23/24 Loc: US Attending Dr: Amalia Lilly D.O. Ordering Physician: Amalia Lilly D.O. Date of Service: 10/23/24 Procedure(s): US OB BPP w non-stress Accession Number(s): [id number] cc: Amalia Lilly D.O.; LUDY GRAFF [place] [address] Patient Name: GIANCARLO CELAYA MRN: [id number] date: 1995 Sex: F Assigned Patient Location: [facility] Current Patient Location: Accession/Order Number: [id number] Exam Date: 10/23/2024 14:48 Report Date: 10/23/2024 14:49 At the request of: AMALIA LILLY DO Procedure: US OB BPP w non-stress Biophysical profile. Reason for exam: Knot of the umbilical cord. Comparison: BPP 10/16/2024 TECHNIQUE: Transabdominal imaging of the gravid uterus was obtained. FINDINGS: Donor Relations Manager reports the BPP is 8 out of 8. BHAVANI is normal at14.5 cm. heart rate 134bpm. US/US OB BPP w non-stress IMPRESSION: BPP 8 out of 8. Impression dictated by: Celestino Vinson Jr., D.O. 10/23/2024 2:49 PM Dictation Location: [place] [address] Electronically authenticated by: [id number] Y Date: 4:49 Dictated By: Celestino Vinson M.D. Signed By:10/23/24 1452 DD/ 1449 TD/TT: Trade Mark Attorney: us Amalia Lilly DO [facility] Final Result * POCT urinalysis dipstick manually resulted (10/23/2024 9:18 AM EDT) Only the most recent of4 resultswithin the time period is included. Color, UA Yellow Clarity, UA Clear Glucose, UA Negative Negative - 1999(110) ++++ mg/dL Bilirubin, UA Negative Negative - [...] - Positive Urine 10/23/2024 9:18 AM EDT us Amalia Vijaya DO POINT OF CARE TEST ENTER/EDIT OR DERABLES Final Result * CULTURE, GROUP B STREP WITH SUSCEPTIBLITY (10/16/2024 10:39 AM EDT) Swab 10/16/2024 10:3 9 AM EDT us Amalia Vijaya DO LAB BLOOD ORDERABLES Final Resul t EXTERNAL LAB * AMNISURE (10/14/2024 12:08 PM EDT) Pathologist [facility] AMNISURE NEGATIVE NEGATIVE [facility] 10/14/2024 12:0 8 PM EDT 10/14/2024 12:17 PM EDT Narrative [facility] - 10/14/2024 12:32 PM EDT us Amalia Vijaya DO LAB BLOOD ORDERABLES Final Resul t [facility] * (ABNORMAL) [facility] URINE MICROSCOPIC ONLY (10/14/2024 12:00 PM EDT) [facility] WBC 20-50(A) NONE SEEN #/HPF [facility] RBC 10-20(A) 0 - 2 #/HPF [facility] [...] DO CL[facility] Final Result Performing Organization Address [facility] Co de Phone Number [facility] * (ABNORMAL) [facility] UA (CLEAN/CATCH) PARA EDUCATOR/MICRO IF IND. (10/14/2024 12:00 PM EDT) COLOR [...] Narrative [facility] - 10/14/2024 12:45 PM EDT [employer] DO [facility] Final Result Performing Organization Address [facility] Co de Phone Number [facility] * [facility] BILE ACIDS FRACT BLD (09/24/2024 4:47 PM EDT) BILE ACIDS 6.8 0.0 - 10.0 umol/L [facility] Comment: Performed at: [address] [id number] Nurse Liaison: Mello Godoy MD, Phone: [phone] 09/24/2024 4:47 PM EDT 09/24/2024 4:47 PM EDT Narrative [facility] - 09/27/2024 12:16 AM EDT us Gaye Vázquez ACOUSTIC INTELLIGENCE SPECIALIST [facility] Final Result Performing Organization Address [facility] Co de Phone Number [facility] * ALL THYROID STIM HORMONE (09/24/2024 4:47 PM EDT) THYROID STIMULATING HORMONE 0.964 0.358 - 3.740 uIU/mL [facility] 09/24/2024 4:47 PM EDT 09/24/2024 4:47 PM EDT Narrative [facility] - 09/24/2024 5:57 PM EDT us Gaye Vázquez NP CLINISYADENIKE Final Result Performing Organization Address [facility] Phone Number [facility] * ALL HEPATITIS C AB (09/24/2024 4:47 PM EDT) HCV ANTIBODY Non Reactive Non Reactive TB Comment: HCV antibody alone does not differentiate between previously resolved infection and active infection. Equivocal and Reactive HCV antibody results should be followed up with an HCV RNA test to support the diagnosis of active HCV infection. Performed at: [facility] [id number] Nurse Liaison: Sheldon Polo PhD, Phone: [phone] 09/24/2024 4:47 PM EDT 09/24/2024 4:47 PM EDT Narrative [facility]IN[facility] - 09/26/2024 5:08 AM EDT us Gaye Vázquez NP [facility] Final Result Performing Organization Address [facility] Co de Phone Number [facility] * (ABNORMAL) ALL CBC WITH AUTO DIFF (09/24/2024 4:47 PM EDT) Only the most recent of2 resultswithin the time period is included. [facility] WBC 9.8 4.0 - 11.0 10 [...] [facility] CMP (CMP) (FOR REMOTE [facility] USE) (09/19/2024 2:31 PM EDT) SODIUM 138 136 - 145 mmol/L TBH POTASSIUM 3.7 3.5 - 5.1 mmol/L [facility] CHLORIDE 104 98 - 107 mmol/L [facility]H CARBON DIOXIDE 25.1 21.0 - 32.0 mmol/L [facility] ANION GAP 12.6 TBH GLUCOSE 101 74 - 106 mg/dL TBH BLOOD UREA NITROGEN 7.0 7.0 - 18.0 mg/dL TBH CREATININE 0.60 0.55 - 1.02 mg/dL TBH TBH EGFR-AF CANADIAN >60 >=60 mL/min/1. 73m 2 TBH TBH EGFR-NON AF CA[place]DIAN >60 >=60 mL/min/1. 73m 2 TB[facility] BUN [...] NP CL[facility] Final Result [facility] TB * US OB GROWTH (09/18/2024 4:30 PM EDT) Anatomical Region Laterality Modality Other 09/18/2024 4:30 PM EDT Narrative 09/18/2024 4:32 [place] [address] Ultrasound Report Signed Patient: GIANCARLO CELAYA MR#: [id number] : 1995 Acct:[id number] Age/Sex: 28 / F ADM Date: 09/18/24 Loc: US Attending Dr: Amalia Lilly D.O. Ordering Physician: Amalia Lilly D.O. Date of Service: 09/18/24 Procedure(s): US OB growth Accession Number(s): [id number] cc: Amalia Lilly D.O.; LUDY GRAFF [place] [address] Patient Name: GIANCARLO CELAYA MRN: [id number] date: 1995 Sex: F Assigned Patient Location: US Current Patient Location: US Accession/Order Number: [id number] Exam Date: 09/18/2024 16:23 Report Date: 09/18/2024 [...] Smith M.D. 09/18/2024 4:30 PM Dictation Location: [place] [address] Electronically authenticated by: [id number] Y Date: 09/18/2024 16:30 Dictated By: Wally Smith M.D. Signed By: 09/18/24 1632 DD/ 163 TD/TT: Trade Mark Attorney: Procedure Note Radiology, Radiologist, MD - 09/18/2024 [place] [address] Ultrasound Report Signed Patient: GIANCARLO CELAYA EMR#: [id number] : 1995Acct:[id number] Age/Sex: 28 / FADM Date: 09/18/24 Loc: US Attending Dr: Aamlia Lilly D.O. Ordering Physician: Amalia Lilly D.O. Date of Service: 09/18/24 Procedure(s): US OB growth Accession Number(s): [id number] cc: Amalia Lilly D.O.; LUDY GRAFF [place] [id number] Patient Name: GIANCARLO CELAYA MRN: [id number] date: 1995 Sex: F Assigned Patient Location: US Current Patient Location: US Accession/Order Number: [id number] Exam Date: 09/18/2024 16:23 Report Date: 09/18/2024 [...] Smith M.D. 09/18/2024 4:30 PM Dictation Location: [place] [address] Electronically authenticated by: [id number] Y Date: 6:30 Dictated By: Wally Smith M.D. Signed By:09/18/24 1632 DD/ 1630 TD/TT: Trade Mark Attorney: Amalia Lilly DO [facility] Final Result * MLR HEMOGLOBIN A1C (08/20/2024 10:54 AM EDT) GLYCOHEMOGLOBIN A1C 4.7 4.5 - 6.2 % TB Comment: ADA RECOMMENDED LIMIT 4.0 - 6.0 ADA THERAPEUTIC TARGET < 7.0 ACTION SUGGESTED > 7.0 ESTIMATED AVERAGE GLUCOSE 88 mg/dL TB 08/20/2024 10:5 4 AM EDT 08/20/2024 10:54 AM EDT Narrative [facility]IN[facility] - 08/20/2024 11:40 AM EDT Gaye Vázquez NP [facility] Final Result [facility] from Last 3 Months Insurance [facility] MEDICAID [place] Care Teams Manager Client Relationship Specialty Start Date End Date Unallocated, Noms Provider, [address] [place], [place] [address] PCP - General Family Medicine 02/28/24
--- OUTSIDE RECORDS SUMMARY | 2024-10-26 07:45 | XMS_ITS | Encounter Summary ---
Author Organization [facility] Address [address] [facility] [place] [address] Care Team Providers Care Business Performance Analyst Name Role Phone Unallocated, Noms Provider Primary Care [facility] Encounter Details Date Type Department Care Team (Late st Contact Info) Description 04/23/2024 Abstract [facility] [address] [facility] [phone] Eleazar Lilly DO [address] [place], [id number] Social History Tobacco Use Types Packs/Day Years [...] Routine [facility] B[facility] OB [address] [place] [address] Eleazar Lilly, DO [address] [place], [place] [address] documented as of this encounter Visit Diagnoses Not on filedocumented in this encounter Care Teams Business Performance Analyst Relationship Specialty Start Date End Date Unallocated, Noms Provider, [address] [place], [place] [address] PCP - General Family Medicine 02/28/24 documented as of this encounter
--- OUTSIDE RECORDS SUMMARY | 2024-10-26 07:45 | XMS_ITS | Encounter Summary ---
Author Organization [facility] Address [address] [facility] [place] [address] Care Team Providers Care Shoer Name Role Phone Unallocated, Noms Provider Primary Care [facility] Encounter Details Date Type Department Care Team (Late st Contact Info) Description 06/08/2024 Orders Only [facility] BCP OB [address] [place] [phone] Nga Cormier [address] [place] [address] Social History Tobacco Use Types Packs/Day Years [...] Routine [facility] BCP OB [address] [place] [address] Eleazar Lilly DO [address] [place], [place] [address] documented as of this encounter Procedures Procedure Name Priority Date/Time Associated Diagnosis Comments PAP SMEAR Routine 05/28/2024 12:00 AM EST documented in this encounter Results * Pap Smear (05/28/2024 12:00 AM EST) Swab Cervical swab / Unknown Cheryl [facility] CYTOLOGY ORDERABLES Final Re sult EXTERNAL LAB documented in this encounter Visit Diagnoses Not on filedocumented in this encounter Care Teams Shoer Relationship Specialty Start Date End Date Unallocated, Noms MD Aidan [facility] [place] [address] PCP - General Family Medicine 02/28/24 documented as of this encounter
--- OUTSIDE RECORDS SUMMARY | 2024-10-26 07:45 | XMS_ITS | Encounter Summary ---
Author Organization [facility] Address [address] [place] [address] Care Team Providers Care Director Health Name Role Phone Unallocated, Noms Provider [facility] Encounter Details Date Type Department Care Team (Late st Contact Info) Description 10/23/2024 Clinisync Result Encounter NOMS External Department Unsolicited Amalia Lilly, DO [address] [place] [address] Social History Tobacco Use Types Packs/Day Years [...] Routine [facility] BCP OB [address] [place] [address] Amalia Lilly DO [address] [place], [place] [address] documented as of this encounter Procedures Procedure Name Priority Date/Time Associated Diagnosis Comments US OB BPP W NON-STRESS 10/23/2024 2:49 PM EDT documented in this encounter Results * US OB BPP W NON-STRESS (10/23/2024 2:49 PM EDT) Anatomical Region Laterality Modality Other 10/23/2024 2:49 PM EDT Narrative 10/23/2024 2:[place] [address] Ultrasound Report Signed Patient: GIANCARLO CELAYA MR#: [id number] : 1995 Acct:[id number] Age/Sex: 28 / F ADM Date: 10/23/24 Loc: US Attending Dr: Amalia Lilly D.O. Ordering Physician: Amalia Lilly D.O. Date of Service: 10/23/24 Procedure(s): US OB BPP w non-stress Accession Number(s): [id number] cc: Amalia Lilly D.O.; LUDY GRAFF [place] [address] Patient Name: GIANCARLO CELAYA MRN: [id number] date: 1995 Sex: F Assigned Patient Location: [facility] Current Patient Location: Accession/Order Number: [id number] Exam Date: 10/23/2024 14:48 Report Date: 10/23/2024 14:49 At the request of: AMALIA LILLY DO Procedure: US OB BPP w non-stress Biophysical profile. Reason for exam: Knot of the umbilical cord. Comparison: BPP 10/16/2024 TECHNIQUE: Transabdominal imaging of the gravid uterus was obtained. FINDINGS: Ferryboat Operator Cable reports the BPP is 8 out of 8. BHAVANI is normal at 14.5 cm. heart rate 134bpm. US/US OB BPP w non-stress IMPRESSION: BPP 8 out of 8. Impression dictated by: Celestino Vinson Jr., D.O. 10/23/2024 2:49 PM Dictation Location: [place] [address] Electronically authenticated by: [id number] Y Date: 10/23/2024 14:49 Dictated By: Celestino Vinson M.D. Signed By: 10/23/24 1452 DD/ 1449 TD/TT: Business Account Executive: Procedure Note Radiology, Radiologist, - 10/23/2024 [place] [address] Ultrasound Report Signed Patient: GIANCARLO CELAYA EMR#: [id number] : 1995Acct:[id number] Age/Sex: 28 / FADM Date: 10/23/24 Loc: US Attending Dr: Amalia Lilly D.O. Ordering Physician: Amalia Lilly D.O. Date of Service: 10/23/24 Procedure(s): US OB BPP w non-stress Accession Number(s): [id number] cc: Amalia Lilly D.O.; LUDY GRAFF [place] [address] Patient Name: GIANCARLO CELAYA MRN: [id number] date: 1995 Sex: F Assigned Patient Location: [facility] Current Patient Location: Accession/Order Number: [id number] Exam Date: 10/23/2024 14:48 Report Date: 10/23/2024 14:49 At the request of: AMALIA LILLY DO Procedure: US OB BPP w non-stress Biophysical profile. Reason for exam: Knot of the umbilical cord. Comparison: BPP 10/16/2024 TECHNIQUE: Transabdominal imaging of the gravid uterus was obtained. FINDINGS: Ferryboat Operator Cable reports the BPP is 8 out of 8. BHAVANI is normal at14.5 cm. heart rate 134bpm. US/US OB BPP w non-stress IMPRESSION: BPP 8 out of 8. Impression dictated by: Vy Qiu Jr.OJory 10/23/2024 2:49 PM Dictation Location: [place] [address] Electronically authenticated by: [id number] Y Date: 4:49 Dictated By: Celestino Vinson M.D. Signed By:10/23/24 1452 DD/ 1449 TD/TT: Business Account Executive: us Amalia Vijaya DO [facility] Final Result documented in this encounter Visit Diagnoses Not on filedocumented in this encounter Care Teams Director Health Relationship Specialty Start Date End Date Unallocated, Noms Provider, [address] [place] [address] PCP - General Family Medicine 02/28/24 documented as of this encounter
--- OUTSIDE RECORDS SUMMARY | 2024-10-26 07:45 | XMS_ITS | Clinical Summary ---
Author Organization [facility] Address [address] [place] [address] Care Team Providers Care Database Tester Name Role Phone Unavailable Primary Care Provider [...] Plan of Treatment Not on file [place]
--- OUTSIDE RECORDS SUMMARY | 2024-10-26 07:45 | XMS_ITS | Patient Health Record ---
Author Organization [facility] Address [address] [place] [address] Care Team Providers Care Print Shop Stenographer Name Role Phone Katie Monroe Primary Care Provider Ines Sauceda Unavailable [phone] Karthik Castro Unavailable [phone] Swapna Chris Unavailable [phone] Reason For Referral No Information Encounters Encounter Location Date Provider Diagnosis [facility] [address] [place] [address] 01/04/2024 Katie Monroe [facility] [address] [place] [place] [address] 12/30/2023 Katie Monroe Necrosis of pulp K04.1 [...] Coverage Start Date Coverage End Date [employer] [place] [employer] [address] [place] [address] [id number] IGANCARLO CELAYA Self - patient is the insured 4 [employer] [facility] [place] [employer] [address] [place] [address] [id number] GIANCARLO CELAYA Self - patient is the insured 4
--- OUTSIDE RECORDS SUMMARY | 2024-10-26 07:45 | XMS_ITS | Encounter Summary ---
Author Organization [facility] Address [address] [facility] [place] [address] Care Team Providers Care Electrical And Radio Aircraft Mechanic Name Role Phone Unallocated, Noms Provider Primary Care [facility] Encounter Details Date Type Department Care Team (Late st Contact Info) Description 09/24/2024 Results Follow-Up [facility] [address] [facility] [place] [phone] Nimco Mojica LPN [address] [employer] [place] [phone] Social History Tobacco Use Types Packs/Day Years [...] AM EDT Routine [facility] [address] [place] [address] Eleazar Lilly, [address] [place] [address] documented as of this encounter Visit Diagnoses Not on filedocumented in this encounter Care Teams Electrical And Radio Aircraft Mechanic Relationship Specialty Start Date End Date Unallocated, Noms Provider, [place] [address] PCP - General Family Medicine 02/28/24 documented as of this encounter
--- OUTSIDE RECORDS SUMMARY | 2024-10-26 07:45 | XMS_ITS | Encounter Summary ---
Author Organization [facility] Address [address] [facility] [place] [address] Care Team Providers Care Ballet Soloist Name Role Phone Unallocated, Noms Provider [facility] Encounter Details Date Type Department Care Team (Late st Contact Info) Description 10/14/2024 Clinisync Result Encounter [facility] External Department Unsolicited Eleazar Lilly, DO [address] [place] [address] Social History Tobacco Use Types Packs/Day Years [...] Routine [facility] [place] [address] [place] [phone] Eleazar Lilly DO [address] [place] [address] documented as of this encounter Procedures Procedure Name Priority Date/Time Associated Diagnosis Comments AMNISURE Routine 10/14/2024 12:08 PM EDT [facility] URINE MICROSCOPIC ONLY Routine 10/14/2024 12:00 PM EDT [facility] UA (CLEAN/CATCH) FLEET ADMINISTRATOR/MICRO IF IND. Routine 10/14/2024 12:00 PM EDT documented in this encounter Results * AMNISURE (10/14/2024 12:08 PM EDT) [facility] AMNISURE NEGATIVE NEGATIVE [facility] 10/14/2024 12:0 8 PM EDT 10/14/2024 12:17 PM EDT Narrative [facility]IN[facility] - 10/14/2024 12:32 PM EDT Eleazar Vijaya DO LAB BLOOD ORDERABLES Final Resul t Performing Organization Address [facility] Co de Phone Number [facility] TB * (ABNORMAL) [facility] URINE MICROSCOPIC ONLY (10/14/2024 12:00 PM EDT) Pathologist [facility] TB WBC 20-50(A) NONE SEEN #/HPF TBH [...] CLINISY[facility] - 10/14/2024 12:45 PM EDT Eleazar Vijaya DO CLIN[facility] Final Result Performing Organization Address [facility]/ZIP Co de Phone Number [facility] TB * (ABNORMAL) [facility] UA (CLEAN/CATCH) FLEET ADMINISTRATOR/MICRO IF IND. (10/14/2024 12:00 PM EDT) COLOR [...] us Eleazar Vijaya DO [facility] Final Result [facility] documented in this encounter Visit Diagnoses Not on filedocumented in this encounter Care Teams Ballet Soloist Relationship Specialty Start Date End Date Unallocated, Noms Provider, [address] [place] [address] PCP - General Family Medicine 02/28/24 documented as of this encounter
--- OUTSIDE RECORDS SUMMARY | 2024-10-26 07:45 | XMS_ITS | Encounter Summary ---
Author Organization [facility] Address [address] [facility] [place] [address] Care Team Providers Care Electronics Assembler And Tester Name Role Phone Unallocated, Noms Provider Primary Care [facility] Encounter Details Date Type Department Care Team (Late st Contact Info) Description 05/30/2024 Abstract [facility] [address] [facility] [place] [phone] Eleazar Lilly DO [address] [place], [facility] Social History Tobacco Use Types Packs/Day [...] [facility] [address] [place] [phone] Eleazar Lilly, DO [address] [place], [place] [phone] documented as of this encounter Visit Diagnoses Not on filedocumented in this encounter Care Teams Electronics Assembler And Tester Relationship Specialty Start Date End Date Unallocated, Noms Provider, [address] [place], [place] [id number] PCP - General Family Medicine 02/28/24 documented as of this encounter
--- OUTSIDE RECORDS SUMMARY | 2024-10-26 07:45 | XMS_ITS | Encounter Summary ---
Author Organization [facility] Address [address] [facility] [place] [address] Care Team Providers Care Polysomnography Technologist Name Role Phone Unallocated, Noms Provider Primary Care [facility] Encounter Details Date Type Department Care Team (Late st Contact Info) Description 07/09/2024 Abstract [facility] [address] [facility] [place] [phone] Eleazar Lilly DO [address] [place], [facility] Social History Tobacco Use Types Packs/Day Years [...] Routine [facility] [address] [place] [phone] Eleazar Lilly, DO [address] [place] [address] documented as of this encounter Visit Diagnoses Not on filedocumented in this encounter Care Teams Polysomnography Technologist Relationship Specialty Start Date End Date Unallocated, Noms Provider, [address] [place], [place] [phone] PCP - General Family Medicine 02/28/24 documented as of this encounter
--- OUTSIDE RECORDS SUMMARY | 2024-10-26 07:45 | XMS_ITS | Encounter Summary ---
Author Organization [facility] Address [address] [facility] [place] [address] Care Team Providers Care Geometrician Name Role Phone Unallocated, Noms Provider Primary Care [facility] Encounter Details Date Type Department Care Team (Late st Contact Info) Description 10/16/2024 Bamboo flowsheet [facility] [address] [place] [phone] Eleazar Lilly, DO [address] [place], [facility] Social History Tobacco Use Types Packs/Day Years [...] [facility] [address] [place] [phone] Eleazar Lilly, DO [address] [place], [place] [phone] documented as of this encounter Visit Diagnoses Not on filedocumented in this encounter Care Teams Geometrician Relationship Specialty Start Date End Date Unallocated, Noms Provider[place] [address] PCP - General Family Medicine 02/28/24 documented as of this encounter
--- OUTSIDE RECORDS SUMMARY | 2024-10-26 07:45 | XMS_ITS | Encounter Summary ---
Author Organization [facility] Address [address] [facility] [place] [address] Care Team Providers Care Supervisor Facepiece Line Name Role Phone Unallocated, Noms Provider Primary Care [facility] Encounter Details Date Type Department Care Team (Late st Contact Info) Description 10/23/2024 Bamboo flowsheet [facility] [address] [place] [phone] Eleazar Lilly, DO [address] [place], [facility] Social [...] N[facility] BCP [address] [place] [phone] Eleazar Lilly, DO [address] [place], [facility]11 documented as of this encounter Visit Diagnoses Not on filedocumented in this encounter Care Teams Supervisor Facepiece Line Relationship Specialty Start Date End Date Unallocated, Noms Provider, [place] [address] PCP - General Family Medicine 02/28/24 documented as of this encounter
--- OUTSIDE RECORDS SUMMARY | 2024-10-26 07:45 | XMS_ITS | Clinical Summary ---
[id number] [address] [place] [address] Care Team Providers Care Spinning Lathe Operator Automatic Name Role Phone Hima Silver MD Primary Care Provider [phone] Social History Tobacco Use Types Packs/Day Years [...] Medical Devices Not on file Care Teams Spinning Lathe Operator Automatic Relationship Specialty Start Date End Date Hima Silver MD [address] [place] [address] PCP - General Internal Medicine 09/14/18
--- OUTSIDE RECORDS SUMMARY | 2024-10-26 07:48 | XMS_ITS | CCD ---
Author Organization [facility] Care Team Providers Care Locker Room Manager Name Role Phone TALON VERAS Unavailable Unavailable [...] Jodie Portillo Unavailable GELACIO Portillo Attending Provider [phone] Jodie Portillo Attending Unavailable Jodie Portillo Admitting Unavailable Corwin Dee DO Primary Care Provider [phone] Unallocated , [place] Provider Primary Care Provi kamille Troy ESTEVEZPRINCIPAL NETWORK ENGINEERAna Attending Carley vailable Schlumbohm PA-C, Susana Dickerson Primary Care U navailable Troy MANAGER SUSTAINABILITY-PRINCIPAL NETWORK ENGINEER, Ana Serra Attending Carley vailable Schlumbohm [...] Susana Dickerson Primary Care U navailable Troy MANAGER SUSTAINABILITY-PRINCIPAL NETWORK ENGINEER, Ana Serra Attending Carley vailable Schlumbohm [...] disintegrating tablet Indications: Nausea and vomiting in ([facility]) Take 1 tablet (4 mg) by [...] Start: 05-21-2019 take 1 capsule by mo [facility] three times daily as needed [...] 03-14-2024 Episodic Other and delivery including normal (20 [...] [36 weeks gestation of ] 10-16-2024 Episodic Residual codes; unclassified (2 sources) Gestation period, 37 weeks; Translations: [37 weeks gestation of ] 10-23-2024 Episodic Spondylosis; intervertebral disc disorders; other back [...] Facility US OB BPP W NON-STRESS on 10-23-2024 [place] [address] Ultrasound Report Signed Patient: GIANCARLO CELAYA MR#: [id number] : 1995 Acct:[id number] Age/Sex: 28 / F ADM Date: 10/23/24 Loc: US Attending Dr: Eleazar Lilly D.O. Ordering Physician: Eleazar Lilly D.O. Date of Service: 10/23/24 Procedure(s): US OB BPP w non-stress Accession Number(s): [id number] cc: Eleazar Lilly D.O.; EVELYN VU [place] [address] Patient Name: GIANCARLO CELAYA MRN: [id number]:[id number] date: 1995 Sex: F Assigned Patient Location: [facility] Current Patient Location: Accession/Order Number: [id number] Exam Date: 10/23/2024 14:48 Report Date: 10/23/2024 14:49 At the request of: ELEAZAR LILLY DO Procedure: US OB BPP w non-stress Biophysical profile. Reason for exam: Knot of the umbilical cord. Comparison: BPP 10/16/2024 TECHNIQUE: Transabdominal imaging of the gravid uterus was obtained. FINDINGS: Fleet Director reports the BPP is 8 out of 8. BHAVANI is normal at 14.5 cm. heart rate 134bpm. US/US OB BPP w non-stress IMPRESSION: BPP 8 out of 8. Impression dictated by: Celestino Vinson Jr., D.O. 10/23/2024 2:49 PM Dictation Location: [place] [address] Electronically authenticated by: [id number] Y Date: 10/23/2024 14:49 Dictated By: Celestino Vinson M.D. Signed By: 10/23/24 1452 DD/ 1449 TD/TT: Bio Medical Technician: [facility] Radiology, Radiologist, MD - 10/23/2024 [place] [address] Ultrasound Report Signed Patient: GIANCARLO CELAYA MR#: [id number] : 1995 Acct:[id number] Age/Sex: 28 / F ADM Date: 10/23/24 Loc: US Attending Dr: Eleazar Lilly D.O. Ordering Physician: Eleazar Lilly D.O. Date of Service: 10/23/24 Procedure(s): US OB BPP w non-stress Accession Number(s): [id number] cc: Eleazar Lilly D.O.; EVELYN VU [place] [address] Patient Name: GIANCARLO CELAYA MRN: [facility]:[id number] date: 1995 Sex: F Assigned Patient Location: [facility] Current Patient Location: Accession/Order Number: [id number] Exam Date: 10/23/2024 14:48 Report Date: 10/23/2024 14:49 At the request of: ELEAZAR LILLY DO Procedure: US OB BPP w non-stress Biophysical profile. Reason for exam: Knot of the umbilical cord. Comparison: BPP 10/16/2024 TECHNIQUE: Transabdominal imaging of the gravid uterus was obtained. FINDINGS: Fleet Director reports the BPP is 8 out of 8. BHAVANI is normal at 14.5 cm. heart rate 134bpm. US/US OB BPP w non-stress IMPRESSION: BPP 8 out of 8. Impression dictated by: Celestino Vinson Jr., D.O. 10/23/2024 2:49 PM Dictation Location: [place] [address] Electronically authenticated by: [id number] Y Date: 10/23/2024 14:49 Dictated By: Celestino Vinson M.D. Signed By: 10/23/24 1452 DD/ 1449 TD/TT: Bio Medical Technician: [facility] Radiology Study observation (narrative) [facility] US OB BPP W NON-STRESS Ordered By: Radiologist Radiology on 10-23-2024 [facility] Work Phone: Urinalysis macro (dipstick) panel (U)on 10-23-2024 Bilirubin, UA Negative Negative - 4(70) +++ mg/dL [facility] Blood, UA Negative Negative - 50 Fuad/mcL [facility] Clarity, UA Clear [facility] Color, UA Yellow [facility] Glucose, UA Negative Negative - 2000(110) ++++ mg/dL [facility] Interpretation and review of laboratory results Normal [facility] Ketones, UA Negative Negative - 160(16) ++++ mg/dL [facility] Leukocytes, UA Negative Negative - 500+++ Sandie/mcL [facility] Nitrite, UA Negative Negative - Positive [facility] pH, UA 6.5 5 - 9 [facility] Protein, UA Positive Negative - 2000(20) ++++ mg/dL [facility] Comment on above: 30 Spec Grav, UA 1.025 1 - 1.03 [facility] Urobilinogen, UA 0.2 0.2 - 12 mg/dL [facility] US OB BPP W NON-STRESS on 10-16-2024 [place] [address] Ultrasound Report Signed Patient: GIANCARLO CELAYA MR#: [id number] : 1995 Acct:[id number] Age/Sex: 28 / F ADM Date: 10/16/24 Loc: US Attending Dr: Eleazar Lilly D.O. Ordering Physician: Eleazar Lilly D.O. Date of Service: 10/16/24 Procedure(s): US OB BPP w non-stress Accession Number(s): [id number] cc: Eleazar Lilly D.O.; EVELYN VU [place] [address] Patient Name: GIANCARLO CELAYA MRN: [facility]:[id number] date: 1995 Sex: F Assigned Patient Location: [facility] Current Patient Location: Accession/Order Number: [id number] Exam Date: 10/16/2024 16:18 Report Date: 10/16/2024 16:19 At the request of: ELEAZAR LILLY DO Procedure: US OB BPP w non-stress Biophysical profile. Reason for exam: Knot of the umbilical cord. Comparison: BPP 10/09/2024. TECHNIQUE: Transabdominal imaging of the gravid uterus was obtained. FINDINGS: Fleet Director reports the BPP is 8 out of 8. BHAVANI is normal at 12.6 cm. heart rate 132 bpm. US/US OB BPP w non-stress IMPRESSION: BPP 8 out of 8. Impression dictated by: Celestino Vinson Jr., D.O. 10/16/2024 4:19 PM Dictation Location: [place] [address] Electronically authenticated by: [id number] Y Date: 10/16/2024 16:19 Dictated By: Celestino Vinson M.D. Signed By: 10/16/24 1621 DD/ 1619 TD/TT: Bio Medical Technician: [facility] Radiology, Radiologist, - 10/16/2024 [place] [address] Ultrasound Report Signed Patient: GIANCARLO CELAYA MR#: [id number] : 1995 Acct:[id number] Age/Sex: 28 / F ADM Date: 10/16/24 Loc: US Attending Dr: Eleazar Lilly D.O. Ordering Physician: Eleazar Lilly D.O. Date of Service: 10/16/24 Procedure(s): US OB BPP w non-stress Accession Number(s): [id number] cc: Eleazar Lilly D.O.; EVELYN VU [place] [phone] Patient Name: GIANCARLO CELAYA MRN: [id number]:[id number] date: 1995 Sex: F Assigned Patient Location: [facility] Current Patient Location: Accession/Order Number: [id number] Exam Date: 10/16/2024 16:18 Report Date: 10/16/2024 16:19 At the request of: ELEAZAR LILLY DO Procedure: US OB BPP w non-stress Biophysical profile. Reason for exam: Knot of the umbilical cord. Comparison: BPP 10/09/2024. TECHNIQUE: Transabdominal imaging of the gravid uterus was obtained. FINDINGS: Fleet Director reports the BPP is 8 out of 8. BHAVANI is normal at 12.6 cm. heart rate 132 bpm. US/US OB BPP w non-stress IMPRESSION: BPP 8 out of 8. Impression dictated by: Celestino Vinson Jr., D.O. 10/16/2024 4:19 PM Dictation Location: [place] [address] Electronically authenticated by: [id number] Y Date: 10/16/2024 16:19 Dictated By: Celestino Vinson M.D. Signed By: 10/16/24 1621 DD/ 1619 TD/TT: Bio Medical Technician: [facility] Radiology Study observation (narrative) [facility] US OB BPP W NON-STRESS Ordered By: Radiologist Radiology on 10-16-2024 [facility] Work Phone: Urinalysis macro (dipstick) panel (U)on 10-16-2024 Bilirubin, UA Positive Negative - 4(70) +++ mg/dL [facility] Blood, UA Negative Negative - 50 Fuad/mcL [facility] Clarity, UA Clear [facility] Color, UA Yellow [facility] Glucose, UA Negative Negative - 2000(110) ++++ mg/dL [facility] Comment on above: small Interpretation and review of laboratory results Abnormal [facility] Ketones, UA Negative Negative - 160(16) ++++ mg/dL [facility] Leukocytes, UA Negative Negative - 500+++ Sandie/mcL [facility] Nitrite, UA Negative Negative - Positive [facility] pH, UA 6 5 - 9 [facility] Protein, UA Positive Negative - 1999(20) ++++ mg/dL [facility] Comment on above: 30 Spec Grav, UA 1.03 1 - 1.03 [facility] Urobilinogen, UA 0.2 0.2 - 12 mg/dL [facility] AMNISUREon 10-14-2024 TB AMNISURE Negative NEGATIVE [facility] No Panel Informationon 10-14 [facility] UA (CLEAN/CATCH) HAND LEATHER TRIMMER/YVONNE RO IF IND.on 10-14-2024 BILIRUBIN URINE Negative NEGATIVE [facility] BLOOD URINE Negative NEGATIVE [facility] Clarity (U) SL CLOUDY CLEAR [facility] Color (U) LT. YELLOW YELLOW [facility] GLUCOSE URINE UA Negative NEGATIVE mg/dL [facility] Interpretation and review of laboratory results Abnormal [facility] Ketones Ql (U) Negative NEGATIVE mg/dL [facility] Leukocyte esterase Test strip Ql (U) MODERATE Abnormal NEGATIVE [facility] NITRITE URINE Negative NEGATIVE [facility] pH (U) 7.0 [pH] 5.0 - 9.0 [facility] Protein (U) [Mass/Vol] 30 mg/dL Abnormal NEG/TRACE [facility] SPECIFIC GRAVITY URINE 1.020 1.005 - 1.025 [facility] URINE MICROSCOPIC INDICATED YES [facility] UROBILINOGEN URINE 2.0 EU/dL Abnormal 0.2 - 1.0 EU/dL [facility] US OB BPP W NON-STRESS on 10-09-2024 [place] [address] Ultrasound Report Signed Patient: GIANCARLO CELAYA MR#: [id number] : 1995 Acct:[id number] Age/Sex: 28 / F ADM Date: 10/09/24 Loc: [facility] 250-[address]: Eleazar Lilly D.O. Ordering Physician: Eleazar Lilly D.O. Date of Service: 10/09/24 Procedure(s): US OB BPP w non-stress Accession Number(s): [id number] cc: Eleazar Lilly D.O.; EVELYN VU [place] [phone] Patient Name: GIANCARLO CELAYA MRN: [facility]:[id number] date: 1995 Sex: F Assigned Patient Location: [facility] Current Patient Location: [facility] Accession/Order Number: [id number] Exam Date: 10/09/2024 16:46 Report Date: 10/09/2024 16:48 At the request of: ELEAZAR LILLY DO [...] Katz M.D. 10/09/2024 4:48 PM [facility]ictation [facility] Electron[facility] authenticated by: [id number] Y Date: 10/09/2024 16:48 Dictated By: Ty Katz D.O. Signed By: 10/09/241649 DD/ 47 TD/TT: Bio Medical Technician: [facility] Radiology, Radiologist, MD - 10/09/2024 [place] [address] Ultrasound Report Signed Patient: GIANCARLO CELAYA MR#: [id number] : 1995 Acct:[id number] Age/Sex: 28 / F ADM Date: 10/09/24 Loc: [facility] 250-[address]: Eleazar Lilly D.O. Ordering Physician: Eleazar Lilly D.O. Date of Service: 10/09/24 Procedure(s): US OB BPP w non-stress Accession Number(s): [id number] cc: Eleazar Lilly D.O.; EVELYN VU [place] [address] Patient Name: GIANCARLO CELAYA MRN: [id number] date: 1995 Sex: F Assigned Patient Location: [facility] Current Patient Location: [facility] Accession/Order Number: [id number] Exam Date: 10/09/2024 16:46 Report Date: 10/09/2024 16:48 At the request of: ELEAZAR LILLY DO [...] Katz M.D. 10/09/2024 4:48 PM Dictation Location: [employer] Electronically authenticated by: [id number] Y Date: 10/09/2024 16:48 Dictated By: Ty Katz D.O. Signed By: 10/09/24 165 DD/ 47 TD/TT: Bio Medical Technician: [facility] Radiology Study observation (narrative) [facility] US OB BPP W NON-STRESS Ordered By: Radiologist Radiology on 10-09-2024 [facility] Work Phone: US OB BPP W NON-STRESS on 10-02-2024 [place] [address] Ultrasound Report Signed Patient: GIANCARLO CELAYA MR#: [id number] : 1995 Acct:[id number] Age/Sex: 28 / F ADM Date: 10/02/24 Loc: US Attending Dr: Eleazar Lilly D.O. Ordering Physician: Eleazar Lilly D.O. Date of Service: 10/02/24 Procedure(s): US OB BPP w non-stress Accession Number(s): [id number] cc: Eleazar Lilly D.O.; EVELYN VU [place] [address] Patient Name: GIANCARLO CELAYA MRN: [facility]:[id number] date: 1995 Sex: F Assigned Patient Location: [facility] Current Patient Location: Accession/Order Number: [id number] Exam Date: 10/02/2024 12:41 Report Date: 10/02/2024 [...] Anand M.D. 10/02/2024 12:43 PM Dictation Location: [place] [address] Electronically authenticated by: [id number] Y Date: 10/02/2024 12:43 Dictated By: Yaneli Anand M.D. Signed By: 10/02/24 1246 DD/ 1243 TD/TT: Bio Medical Technician: [facility] Radiology, Radiologist, - 10/02/2024 [place] [address] Ultrasound Report Signed Patient: GIANCARLO CELAYA MR#: [id number] : 1995 Acct:[id number] Age/Sex: 28 / F ADM Date: 10/02/24 Loc: US Attending Dr: Eleazar Lilly D.O. Ordering Physician: Eleazar Lilly D.O. Date of Service: 10/02/24 Procedure(s): US OB BPP w non-stress Accession Number(s): [id number] cc: Eleazar Lilly D.O.; EVELYN VU [place] [phone] Patient Name: GIANCARLO CELAYA MRN: [id number] date: 1995 Sex: F Assigned Patient Location: [facility] Current Patient Location: US Accession/Order Number: [id number] Exam Date: 10/02/2024 12:41 Report Date: 10/02/2024 [...] Anand M.D. 10/02/2024 12:43 PM Dictation Location: [place] [address] Electronically authenticated by: [id number] Y Date: 10/02/2024 12:43 Dictated By: Yaneli Anand M.D. Signed By: 10/02/24 1246 DD/ 1243 TD/TT: Bio Medical Technician: [facility] Radiology Study observation (narrative) [facility] US OB BPP W NON-STRESS Ordered By: Radiologist Radiology on 10-02-2024 [facility] Work Phone: US OB BPP W NON-STRESS on 09-25-2024 [place] [address] Ultrasound Report Signed Patient: GIANCARLO CELAYA MR#: [id number] : 1995 Acct:[id number] Age/Sex: 28 / F ADM Date: 09/25/24 Loc: US Attending Dr: Eleazar Lilly D.O. Ordering Physician: Eleazar Lilly D.O. Date of Service: 09/25/24 Procedure(s): US OB BPP w non-stress Accession Number(s): [id number] cc: Eleazar Lilly D.O.; EVELYN VU [place] [address] Patient Name: GIANCARLO CELAYA MRN: [id number] date: 1995 Sex: F Assigned Patient Location: US Current Patient Location: US Accession/Order Number: [id number] Exam Date: 09/25/2024 16:34 Report Date: 09/25/2024 [...] Katz M.D. 09/25/2024 4:35 PM Dictation Location: [place] [address] Electronically authenticated by: [id number] Y Date: 09/25/2024 16:35 Dictated By: Ty Katz D.O. Signed By: 09/25/241636 DD/ 34 TD/TT: Bio Medical Technician: [facility] Radiology, Radiologist, - 09/25/2024 [place] [address] Ultrasound Report Signed Patient: GIANCARLO CELAYA MR#: [id number] : 1995 Acct:[id number] Age/Sex: 28 / F ADM Date: 09/25/24 Loc: US Attending Dr: Eleazar Lilly D.O. Ordering Physician: Eleazar Lilly D.O. Date of Service: 09/25/24 Procedure(s): US OB BPP w non-stress Accession Number(s): [id number] cc: Eleazar Lilly D.O.; EVELYN VU [place] [address] Patient Name: GIANCARLO CELAYA MRN: [facility]:[id number] date: 1995 Sex: F Assigned Patient Location: US Current Patient Location: US Accession/Order Number: [id number] Exam Date: 09/25/2024 16:34 Report Date: 09/25/2024 [...] M.D. 09/25/2024 4:35 PM Dictation Location[facility] Electronically authenticated by: [id number] Y Date: 09/25/2024 16:35 Dictated By: Ty Katz D.O. Signed By: 09/25/241636 DD/ 34 TD/TT: Bio Medical Technician: [facility] Radiology Study observation (narrative) [facility] US OB BPP W NON-STRESS Ordered By: Radiologist Radiology on 09-25-2024 [facility] Work Phone: ALL CBC WITH AUTO DIFFon BASOPHILS ABSOLUTE AUTO 0 [facility] Basophils/100 WBC (Bld) 0.2 % 0.2 - 2.0 % [facility] Eosinophils/100 WBC (Bld) 0.9 % 0.9 - 7.0 % [facility] Erythrocyte distribution width (RBC) [Ratio] 12.9 % 11.0 - 15.0 % [facility] Hematocrit (Bld) [Volume fraction] 32.7 % Low 36.0 - 48.0 % [facility] Hemoglobin (Bld) [Mass/Vol] 11.6 g/dL Low 12.0 - 16.0 g/dL [facility] IMMATURE GRANULOCYTES ABS AUTO 0.07 High [facility] Immature granulocytes/100 WBC (Bld) 0.7 % High 0.0 - 0.5 % [facility] Interpretation and review of laboratory results Abnormal [facility] LYMPHOCYTES ABSOLUTE AUTO 1.8 [facility] Lymphocytes/100 WBC (Bld) 18 % Low 20.5 - 60.0 % [facility] MCH (RBC) [Entitic mass] 31.2 pg 26.7 - 34.0 pg [facility] MCHC (RBC) [Mass/Vol] 35.5 g/dL High 29.9 - 35.2 g/dL [facility] MCV (RBC) [Entitic vol] 87.9 fL 81.0 - 99.0 fL [facility] MONOCYTES ABSOLUTE AUTO 0.6 [facility] Monocytes/100 WBC (Bld) 6.4 % 1.7 - 12.0 % [facility] NEUTROPHILS ABSOLUTE AUTO 7.2 High [facility] Neutrophils/100 WBC (Bld) 73.8 % 43.0 - 75.0 % [facility] Platelet mean volume (Bld) [Entitic vol] 10.3 fL 9.5 - 13.5 fL [facility] TBH EO # 0.1 [facility]H PLT 145 Low [facility] TB RBC 3.72 Low [facility]H WBC 9.8 [facility] CMP (CMP) (FOR REMOTE FH C USE)on 09-19-2024 Albumin [Mass/Vol] 2.5 g/dL Low 3.4 - 5.0 g/dL [facility] ALBUMIN GLOBULIN RATIO 0.6 [facility] ALP [Catalytic activity/Vol] 123 U/L High 46 - 116 U/L [facility] ALT [Catalytic activity/Vol] 17 U/L 14 - 59 U/L [facility] Anion gap [Moles/Vol] 12.6 mmol/L [facility] AST [Catalytic activity/Vol] 19 U/L 15 - 37 U/L [facility] Bilirubin [Mass/Vol] 0.4 mg/dL 0.2 - 1 .0 mg/dL [facility] Calcium [Mass/Vol] 8.9 mg/dL 8.5 - 10. 1 mg/dL [facility] Chloride [Moles/Vol] 104 mmol/L 98 - 10 7 mmol/L [facility] CO2 [Moles/Vol] 25.1 mmol/L 21.0 - 32.0 mmol/L [facility] Creatinine [Mass/Vol] 0.6 mg/dL 0.55 - 1.02 mg/dL [facility] GFR/1.73 sq M.predicted CKD-EPI (S/P/Bld) [Vol rate/Area] >60 >=60 mL/min/1.73 m 2 [facility] Globulin (S) [Mass/Vol] 3.9 g/dL [facility] Glucose [Mass/Vol] 101 mg/dL 74 - 106 mg/dL [facility] Interpretation and review of laboratory results Abnormal [facility] Potassium [Moles/Vol] 3.7 mmol/L 3.5 - 5.1 mmol/L [facility] Protein [Mass/Vol] 6.4 g/dL 6.4 - 8.2 g/dL [facility] Sodium [Moles/Vol] 138 mmol/L 136 - 145 mmol/L [facility] TBH EGFR-NON AF AUSTRALIAN >60 >=60 mL/min/1.73 m 2 [facility] Urea nitrogen [Mass/Vol] 7 mg/dL 7.0 - 18.0 mg/dL [facility] Urea nitrogen/Creatinine [Mass ratio] 11.7 mg/mg [facility] US OB GROWTHon 09-18-[address] [address] Ultrasound Report Signed Patient: GIANCARLO CELAYA MR#: [id number] : 1995 Acct:[id number] Age/Sex: 28 / F ADM Date: 09/18/24 Loc: US Attending Dr: Eleazar Lilly D.O. Ordering Physician: Eleazar Lilly D.O. Date of Service: 09/18/24 Procedure(s): US OB growth Accession Number(s): [id number] cc: Eleazar Lilly D.O.; EVELYN VU [place] [address] Patient Name: GIANCARLO CELAYA MRN: [id number] date: 1995 Sex: F Assigned Patient Location: US Current Patient Location: Accession/Order Number: [id number] Exam Date: 09/18/2024 16:23 Report Date: 09/18/2024 [...] Smith M.D. 09/18/2024 4:30 PM Dictation Location: [place] [address] Electronically authenticated by: [id number] Y Date: 09/18/2024 16:30 Dictated By: Wally Smith M.D. Signed By: 09/18/24 1632 DD/ 1630 TD/TT: Bio Medical Technician: [facility] Radiology, Radiologist, - 09/18/2024 [place] [address] Ultrasound Report Signed Patient: GIANCARLO CELAYA MR#: [id number] : 1995 Acct:[id number] Age/Sex: 28 / F ADM Date: 09/18/24 Loc: US Attending Dr: Eleazar Lilly D.O. Ordering Physician: Eleazar Lilly D.O. Date of Service: 09/18/24 Procedure(s): US OB growth Accession Number(s): [id number] cc: Eleazar Lilly D.O.; EVELYN VU [place] [phone] Patient Name: GIANCARLO CELAYA MRN: [facility]:[id number] date: 1995 Sex: F Assigned Patient Location: US Current Patient Location: US Accession/Order Number: [id number] Exam Date: 09/18/2024 16:23 Report Date: 09/18/2024 [...] Smith M.D. 09/18/2024 4:30 PM Dictation Location: [place] [address] Electronically authenticated by: [id number] Y Date: 09/18/2024 16:30 Dictated By: Wally Smith M.D. Signed By: 09/18/24 1632 DD/ 163 TD/TT: Bio Medical Technician: [facility] Radiology Study observation (narrative) [facility] US OB GROWTHOrdered By: Tico ologist Radiology on 09-18-2024 [facility] Work Phone: Urinalysis macro (dipstick) panel (U)on 09-13-2024 Bilirubin, UA Negative Negative - 4(70) +++ mg/dL [facility] Blood, UA Negative Negative - 50 Fuad/mcL [facility] Clarity, UA Clear [facility] Color, UA Yellow [facility] Glucose, UA Negative Negative - 2000(110) ++++ mg/dL [facility] Interpretation and review of laboratory results Abnormal [facility] Ketones, UA Positive Negative - 160(16) ++++ mg/dL [facility] Comment on above: 15 Leukocytes, UA Negative Negative - 500+++ Sandie/mcL [facility] Nitrite, UA Negative Negative - Positive [facility] pH, UA 6 5 - 9 [facility] Protein, UA Positive Negative - 2000(20) ++++ mg/dL [facility] Comment on above: 30 Spec Grav, UA 1.025 1 - 1.03 [facility] Urobilinogen, UA 1.0 0.2 - 12 mg/dL [facility] ALL CBC WITH AUTO DIFFon BASOPHILS ABSOLUTE AUTO 0 [facility] Basophils/100 WBC (Bld) 0.4 % 0.2 - 2.0 % [facility] Eosinophils/100 WBC (Bld) 0.4 % Low 0.9 - 7.0 % [facility] Erythrocyte distribution width (RBC) [Ratio] 12.4 % 11.0 - 15.0 % [facility] Hematocrit (Bld) [Volume fraction] 34.2 % Low 36.0 - 48.0 % [facility] [facility] Hem[facility] (Bld) [Mass/Vol] 11.9 g/dL Low 12.0 - 16.0 g/dL [facility] IMMATURE GRANULOCYTES ABS AUTO 0.17 High [facility] Immature granulocytes/100 WBC (Bld) 1.5 % High 0.0 - 0.5 % [facility] Interpretation and review of laboratory results Abnormal [facility] LYMPHOCYTES ABSOLUTE AUTO 2.1 [facility] Lymphocytes/100 WBC (Bld) 18.7 % Low 20.5 - 60.0 % [facility] MCH (RBC) [Entitic mass] 31.2 pg 26.7 - 34.0 pg [facility] MCHC (RBC) [Mass/Vol] 34.8 g/dL 29.9 - 35.2 g/dL [facility] MCV (RBC) [Entitic vol] 89.5 fL 81.0 - 99.0 fL [facility] MONOCYTES ABSOLUTE AUTO 0.6 [facility] Monocytes/100 WBC (Bld) 4.8 % 1.7 - 12.0 % [facility] NEUTROPHILS ABSOLUTE AUTO 8.4 High [facility] Neutrophils/100 WBC (Bld) 74.2 % 43.0 - 75.0 % [facility] Platelet mean volume (Bld) [Entitic vol] 9.9 fL 9.5 - 13.5 fL [facility] TBH EO # 0.1 [facility] PLT 148 Low [facility] RBC 3.82 Low [facility] WBC 11.4 High [facility] Urinalysis macro (dipstick) panel (U)on 08-20-2024 Bilirubin, UA Negative Negative - 4(70) +++ mg/dL [facility] Blood, UA Negative Negative - 50 Fuad/mcL [facility] Clarity, UA Clear [facility] Color, UA Yellow [facility] Glucose, UA Negative Negative - 1999(110) ++++ mg/dL [facility] Interpretation and review of laboratory results Normal [facility] Ketones, UA Negative Negative - 160(16) ++++ mg/dL [facility] Leukocytes, UA Negative Negative - 500+++ Sandie/mcL [facility] Nitrite, UA Negative Negative - Positive [facility] pH, UA 7 5 - 9 [facility] Protein, UA Negative Negative - 1999(20) ++++ mg/dL [facility] Spec Grav, UA 1.02 1 - 1.03 [facility] Urobilinogen, UA 0.2 0.2 - 12 mg/dL [facility] US OB LIMITED 1+ FETUSESon 0 07-23-2024 [...] II, MD, PHD at 24-Jul-2024 12:32:57 AM [facility] Normal Not Available Comment on above: Order Comment: US OB INCOMPLETE ANATOMY W US OB TRANSVAGINAL Estimated Date of Delivery: 11/09/24 Gestational Age as of 06/26/2024: 20w4d Urinalysis macro (dipstick) panel (U)on 07-23-2024 Bilirubin, UA Negative Negative - 4(70) +++ mg/dL [facility] Blood, UA Negative Negative - 50 Fuad/mcL [facility] Clarity, UA Clear [facility] Color, UA Yellow [facility] Glucose, UA Negative Negative - 1999(110) ++++ mg/dL [facility] Interpretation and review of laboratory results Normal [facility] Ketones, UA Negative Negative - 160(16) ++++ mg/dL [facility] Leukocytes, UA Negative Negative - 500+++ Sandie/mcL [facility] Nitrite, UA Negative Negative - Positive [facility] pH, UA 6 5 - 9 [facility] Protein, UA Negative Negative - 1999(20) ++++ mg/dL [facility] Spec Grav, UA 1.02 1 - 1.03 [facility] Urobilinogen, UA 0.2 0.2 - 12 mg/dL [facility] AFP, SERUM, OPEN SPINA BIFID Aon 07-11-2024 AFP MOM 2.63 . [facility] AFP VALUE 133.2 ng/mL . [facility] COMMENT: Comment . [facility] Comment on above: Ronit Moncada , Ph.D., [facility] Director References: Available Upon Request. Multiples Of Median Cutoffs For AFP Elevations Giles 2.5 Black 2.8 IDD 2.0 Twins 4.5 Abbreviation Definitions IDD - Insulin Dep Diabetes OSBR - Open Spina Bifida Risk For further inquiries contact [employer] at [phone]. This test was developed and its performance characteristics determined by [employer]. It has not been cleared or approved by the Food and Drug Administration. Performed at: [facility] [employer] [address], [place] [id number] Lead Ramp Agent: Darion Albrecht [facility], Phone: [phone] GEST. AGE ON COLLECTION DATE 18.0 . weeks [facility] GESTAT. AGE BASED ON As provided . [facility] Comment on above: Recalculations are n ot recommended when gestational dating by LMP and ultrasound are within 10 days. INSULIN DEP DIABETES No . [facility] INTERPRETATION Comment . [facility] Comment on above: Interpretation: Scre en Positive [...] Interpretation and review of laboratory results Abnormal [facility] [age] [facility] MULTIPLE GESTATION No . [facility] OSBR RISK 1 IN 225 . [facility] RACE . [facility] RESULTS Report . [facility] TEST RESULTS: Positive Abnormal . [facility] WEIGHT 119 . lbs [facility] N N ULTRASOUND [id number] N 1 119 N N N N N White/ [facility] Urinalysis macro (dipstick) panel (U)on 06-26-2024 Bilirubin, UA Negative Negative - 4(70) +++ mg/dL [facility] Blood, UA Negative Negative - 50 Fuad/mcL [facility] Clarity, UA Clear [facility] Color, UA Yellow [facility] Glucose, UA Negative Negative - 1999(110) ++++ mg/dL [facility] Interpretation and review of laboratory results Normal [facility] Ketones, UA Negative Negative - 160(16) ++++ mg/dL [facility] Leukocytes, UA Negative Negative - 500+++ Sandie/mcL [facility] Nitrite, UA Negative Negative - Positive [facility] pH, UA 6 5 - 9 [facility] Protein, UA Negative Negative - 1999(20) ++++ mg/dL [facility] Spec Grav, UA 1.025 1 - 1.03 [facility] Urobilinogen, UA 0.2 0.2 - 12 mg/dL [facility] No Panel InformationOrdered By: Radiologist Radiology on 06-23-2024 [facility] Work Phone: No Panel Informationon 06-23 Radiology Study observation (narrative) [facility] US OB ANATOMYon 06-23-2024 [place] [address] Ultrasound Report Signed Patient: GIANCARLO CELAYA MR#: [id number] : 1995 Acct:[id number] Age/Sex: 28 / F ADM Date: 06/22/24 Loc: US Attending Dr: Cheryl Baugh Ordering Physician: Cheryl Baugh Date of Service: 06/22/24 Procedure(s): US OB anatomy Accession Number(s): [id number] cc: Cheryl Baugh; EVELYN VU [place] [id number] Patient Name: GIANCARLO CELAYA MRN: [facility]:[id number] date: 1995 Sex: F Assigned Patient Location: US Current Patient Location: Accession/Order Number: [id number] Exam Date: 06/22/2024 17:16 Report Date: 06/23/2024 [...] Signed By: 06/23/24 0800 DD/ 0757 TD/TT: Bio Medical Technician: [facility] Radiology, Radiologist, MD - 06/23/[address] [address] Ultrasound Report Signed Patient: GIANCARLO CELAYA MR#: [id number] : 1995 Acct:[id number] Age/Sex: 28 / F ADM Date: 06/22/24 Loc: US Attending Dr: Cheryl Baugh Ordering Physician: Cheryl Baugh Date of Service: 06/22/24 Procedure(s): US OB anatomy Accession Number(s): [id number] cc: Cheryl Baugh; EVELYN VU [address] [address] Patient Name: GIANCARLO CELAYA MRN: [facility]:[id number] date: 1995 Sex: F Assigned Patient Location: US Current Patient Location: Accession/Order Number: [id number] Exam Date: 06/22/2024 17:16 Report Date: 06/23/2024 [...] Signed By: 06/23/24 0800 DD/ 0757 TD/TT: Bio Medical Technician: DENG [facility] US OB CERVICAL LENGTHon 06-09 [place] [address] Ultrasound Report Signed Patient: GIANCALRO CELAYA MR#: [id number] : 1995 Acct:[id number] Age/Sex: 28 / F ADM Date: 06/22/24 Loc: US Attending Dr: Cheryl Baugh Ordering Physician: Cheryl Baugh Date of Service: 06/22/24 Procedure(s): US OB cervical length Accession Number(s): [id number] cc: Cheryl Baugh; EVELYN VU [place] [address] Patient Name: GIANCARLO CELAYA MRN: [facility]:[id number] date: 1995 Sex: F Assigned Patient Location: US Current Patient Location: Accession/Order Number: [id number] Exam Date: 06/22/2024 17:16 Report Date: 06/23/2024 [...] Signed By: 06/23/24 0800 DD/ 0757 TD/TT: Bio Medical Technician: [facility] Radiology, Radiologist, MD - 06/23/2024 [place] [address] Ultrasound Report Signed Patient: GIANCARLO CELAYA MR#: [id number] : 1995 Acct:[id number] Age/Sex: 28 / F ADM Date: 06/22/24 Loc: US Attending Dr: Cheryl Baugh Ordering Physician: Cheryl Baugh Date of Service: 06/22/24 Procedure(s): US OB cervical length Accession Number(s): [id number] cc: Cheryl Baugh; EVELYN VU [address] [address] Patient Name: GIANCARLO CELAYA MRN: [facility]:[id number] date: 1995 Sex: F Assigned Patient Location: US Current Patient Location: Accession/Order Number: [id number] Exam Date: 06/22/2024 17:16 Report Date: 06/23/2024 [...] Mcconnell M.D. Signed By: 06/23/24 0800 DD/ 3734 TD/TT: Bio Medical Technician: [facility] IGP,APTIMA HPV,AGE GDLNon AGE GDLN ACOG TESTING Note . [facility] Comment on above: TESTS RESULT FLAG UN [facility] REF RANGE LAB Clinician Provided Cytology Information Source.............Cervix No. of containers..01 ThinPrep Vial Age Algo ACOG Jessica... FLAG LEGEND: L-Low Normal,H-High Normal,LL-Alert Low,HH-Alert High <-Panic Low,>-Panic High,A-Abnormal,AA-Critical Abnormal Performed at: 01 =G [address] [address] Bri Keenan MD, IGP, RFX APTIMA HPV ASCU Note . [facility] Comment on above: TESTS RESULT FLAG UN [facility] REF RANGE LAB DIAGNOSIS: 02 NEGATIVE FOR INTRAEPITHELIAL LESION OR MALIGNANCY. Specimen adequacy: 02 Satisfactory for evaluation. No endocervical component is identified. Performed by: 02 Ramin Farrell, Cigar Bander (ASCP) . 02 Note: Note 02 The Pap [...] <-Panic Low,>-Panic High,A-Abnormal,AA-Critical Abnormal Performed at: [address] [address] Bri Keenan MD, Performed at: = - [facility] [id number] Lead Ramp Agent: Bri Keenan MD, Phone: [phone] Performed at: [facility] [id number] Lead Ramp Agent: Bri Keenan MD, Phone: [phone] SPATULA-ALONE CERVIX [facility] Urinalysis macro (dipstick) panel (U)on 05-28-2024 Bilirubin, UA Negative Negative - 4(70) +++ mg/dL [facility] Blood, UA Negative Negative - 50 Fuad/mcL [facility] Clarity, UA Clear [facility] Color, UA Yellow [facility] Glucose, UA Negative Negative - 2000(110) ++++ mg/dL [facility] Interpretation and review of laboratory results Normal [facility] Ketones, UA Negative Negative - 160(16) ++++ mg/dL [facility] Leukocytes, UA Negative Negative - 500+++ Sandie/mcL [facility] Nitrite, UA Negative Negative - Positive [facility] pH, UA 5.5 5 - 9 [facility] Protein, UA Negative Negative - 1999(20) ++++ mg/dL [facility] Spec Grav, UA 1.02 1 - 1.03 [facility] Urobilinogen, UA 1.0 0.2 - 12 mg/dL [facility] Urinalysis macro (dipstick) panel (U)on 04-30-2024 Bilirubin, UA Negative Negative - 4(70) +++ mg/dL [facility] Blood, UA Negative Negative - 50 Fuad/mcL [facility] Clarity, UA Clear [facility] Color, UA Yellow [facility] Glucose, UA Negative Negative - 1999(110) ++++ mg/dL [facility] Interpretation and review of laboratory results Abnormal [facility] Ketones, UA Positive Negative - 160(16) ++++ mg/dL [facility] Comment on above: trace Leukocytes, UA Negative Negative - 500+++ Sandie/mcL [facility] Nitrite, UA Negative Negative - Positive [facility] pH, UA 5.5 5 - 9 [facility] Protein, UA Negative Negative - 1999(20) ++++ mg/dL [facility] Spec Grav, UA 1.025 1 - 1.03 [facility] Urobilinogen, UA 0.2 0.2 - 12 mg/dL [facility] Basophils Auto (Bld) [#/Vol] on 04-16-2024 Basophils (Bld) [#/Vol] Automated basophil count 0.0-0.1 [facility] Basophils/100 WBC Auto (Bld) on 04-16-2024 Basophils/100 WBC (Bld) Automated basophil % 0.2-2.0 [facility] Buprenorphine [Presence] in Urineon 04-16-2024 Buprenorphine Ql (U) Buprenorphine [Presence] in Urine NEGATIVE [facility] Comment on above: DRUG CLASS TEST [...] WBC (Bld) Automated eosinophil % Low 0.9-7.0 [facility] Erythrocyte distribution wid th Auto (RBC) [Ratio]on 04-16-2024 Erythrocyte distribution width (RBC) [Ratio] Erythrocyte distribution width [Ratio] by Automated count 11.0-15.0 [facility] Glucose mean value [Mass/vol ume] in Blood Estimated from glycated hemoglobinon 04-16-2024 Average glucose Estimated from glycated hemoglobin (Bld) [Mass/Vol] Glucose mean value [Mass/volume] in Blood Estimated from glycated hemoglobin [facility] HBV surface Ag IA Qlon 04-16 Hepatitis B Surface Antigen Negative Negative [facility] Comment on above: Performed at: [facility] - [facility] [address] [id number] Director: Sheldon Polo PhD, Phone: [phone] HIV 1 and HIV-2 antibody ass ay with HIV-1 p24 antigen detectionon 04-16-2024 HIV 1+2 Ab+HIV1 p24 Ag IA Ql HIV 1 and HIV-2 antibody assay with HIV-1 p24 antigen detection Non Reactive [facility] Comment on above: HIV-1/HIV-2 antibodi es and HIV-1 p24 antigen were NOTdetected. There is no laboratory evidence of HIV infection.HIV NegativePerformed at: [facility] - [facility] [address] [id number] Director: Sheldon Polo PhD, Phone: [phone] Hematocrit Auto (Bld) [Volum e fraction]on 04-16-2024 Hematocrit (Bld) [Volume fraction] Hematocrit [Volume Fraction] of Blood by Automated count 36.0-48.0 [facility] Hemoglobin [Mass/volume] in Bloodon 04-16-2024 Hemoglobin (Bld) [Mass/Vol] Hemoglobin [Mass/volume] in Blood 12.0-16.0 [facility] Laboratory - Drug toxicology on 04-16-2024 Amphetamines Ql (U) Negative NEGATIVE [facility] Benzodiazepines Ql (U) Negative NEGATIVE [facility] Cocaine Ql (U) Negative NEGATIVE [facility] Opiates Ql (U) Negative NEGATIVE [facility] Phencyclidine Ql (U) Negative NEGATIVE [facility] Laboratory - Hematology and Cell countson 04-16-2024 HbA1c (Bld) [Mass fraction] 4.8 % 4.5-6.2 [facility] Comment on above: ADA RECOMMENDED LIMI T 4.0 - 6.0ADA THERAPEUTIC TARGET < 7.0ACTION SUGGESTED> 7.0 Immature granulocytes/100 WBC (Bld) 0.6 % High 0.0-0.5 [facility] Leukocytes [#/volume] correc leonidas for nucleated erythrocytes in Blood by Automated counon 04-16-2024 WBC corrected for nucl RBC Auto (Bld) [#/Vol] Leukocytes [#/volume] corrected for nucleated erythrocytes in Blood by Automated coun 4.0-11.0 [facility] Lymphocytes Auto (Bld) [#/Vo l]on 04-16-2024 Lymphocytes (Bld) [#/Vol] Lymphocytes [#/volume] in Blood by Automated count 1.2-3.8 [facility] Lymphocytes/100 WBC Auto (Bl d)on 04-16-2024 Lymphocytes/100 WBC (Bld) Lymphocytes/100 leukocytes in Blood by Automated count Low 20.5-60.0 [facility] MCH Auto (RBC) [Entitic mass ]on 04-16-2024 MCH (RBC) [Entitic mass] MCH [Entitic mass] by Automated count 26.7-34.0 [facility] MCHC Auto (RBC) [Mass/Vol]on 04-16-2024 MCHC (RBC) [Mass/Vol] MCHC [Mass/volume] by Automated count High 29.9-35.2 [facility] MCV Auto (RBC) [Entitic vol] on 04-16-2024 MCV (RBC) [Entitic vol] MCV [Entitic volume] by Automated count 81.0-99.0 [facility] MLR HEMOGLOBIN A1Con 024 Glucose [Mass/Vol] 91 mg/dL [facility] HbA1c (Bld) [Mass fraction] 4.8 % 4.5 - 6.2 % [facility] Comment on above: ADA RECOMMENDED LIMI T 4.0 - 6.0 ADA THERAPEUTIC TARGET < 7.0 ACTION SUGGESTED > 7.0 [facility] Methadone [Presence] in Urin e by Screen methodon 04-16-2024 Methadone Screen Ql (U) Methadone [Presence] in Urine by Screen method NEGATIVE [facility] Monocytes Auto (Bld) [#/Vol] on 04-16-2024 Monocytes (Bld) [#/Vol] Automated blood monocyte count 0.3-0.8 [facility] Monocytes/100 WBC Auto (Bld) on 04-16-2024 Monocytes/100 WBC (Bld) Automated monocyte % 1.7-12.0 [facility] Neutrophils Auto (Bld) [#/Vo l]on 04-16-2024 Neutrophils (Bld) [#/Vol] Neutrophils [#/volume] in Blood by Automated count High 1.4-6.5 [facility] Neutrophils/100 WBC Auto (Bl d)on 04-16-2024 Neutrophils/100 WBC (Bld) Automated neutrophil % 43.0-75.0 [facility] No Panel Informationon 04-16 Eosinophils # (Auto) 0.1 10 3/uL 0.0-0.7 [facility] Hepatitis C Interpretation Comment . [facility] Comment on above: Not infected with HC V unless early or acute infection issuspected (which may be delayed in an immunocompromisedindividual), or other evidence exists to indicate HCVinfection. Immature Granulocyte # (Auto) 0.05 10 3/uL High 0.00-0.03 [facility] RPR Quantitative Confirmation Non Reactive titer NonRea<1:1 [facility] Comment on above: Please Note: This te st does not meet current guidelines forscreening and diagnosis of syphilis. This test isintended for following treatment response in patients beingtreated for syphilis infection. To screen for syphilisinfection, a reflex cascade that includes both RPR and atreponema-specific assay should be utilized, such asTreponema pallidum (Syphilis) Screening [place] (047856) orRapid Plasma Reagin (RPR) Test With Reflex to QuantitativeRPR and Confirmatory Treponema pallidum Antibodies(469393).Performed at: [address] [id number] Director: Sheldon Polo PhD, Phone: [phone] Rubella IgG Antibody 7.20 index Immune >0.99 [facility] Comment on above: Non-immune <0.90 Equ ivocal 0.90 - 0.99 Immune >0.99 Urine Barbiturates Screen Negative NEGATIVE [facility] Urine Marijuana (THC) Screen Negative NEGATIVE [facility] Urine Methamphetamines Screen Negative NEGATIVE [facility] Platelet mean volume Auto (B ld) [Entitic vol]on 04-16-2024 Platelet mean volume (Bld) [Entitic vol] Platelet mean volume [Entitic volume] in Blood by Automated count 9.5-13.5 [facility] Platelets Auto (Bld) [#/Vol] on 04-16-2024 Platelets (Bld) [#/Vol] Platelets [#/volume] in Blood by Automated count 150-450 [facility] RBC Auto (Bld) [#/Vol]on RBC (Bld) [#/Vol] Erythrocytes [#/volume] in Blood by Automated count 4.20-5.40 [facility] Serum or plasma hepatitis C virus antibody signal/cutoff ratio by immunoassay (relation 04-16-2024 HCV Ab Signal/Cutoff IA [Rel units/Vol] Serum or plasma hepatitis C virus antibody signal/cutoff ratio by immunoassay (relati Non Reactive [facility] Urine tricyclic antidepressa nt measurementon 04-16-2024 Tricyclic antidepressants (U) [Mass/Vol] Urine tricyclic antidepressant measurement NEGATIVE [facility] oxyCODONE+oxyMORphone [Prese nce] in Urine by Screen methodon 04-16-2024 oxyCODONE+oxyMORphone Screen Ql (U) oxyCODONE+oxyMORphone [Presence] in Urine by Screen method NEGATIVE [facility] BOX TESTon 04-13-2024 BOX TEST SENT OUT 04/13/2024 [facility] [address] [facility] [address] [facility] HCG ( test) Ql (U)o n 03-23-2024 Interpretation and review of laboratory results Abnormal [facility] Preg Test, Ur Positive Negative [facility] Urinalysis macro (dipstick) panel (U)on 03-23-2024 Bilirubin, UA Negative Negative - 4(70) +++ mg/dL [facility] Blood, UA Negative Negative - 50 Fuad/mcL [facility] Clarity, UA Clear [facility] Color, UA Yellow [facility] Glucose, UA Negative Negative - 1999(110) ++++ mg/dL [facility] Interpretation and review of laboratory results Abnormal [facility] Ketones, UA Positive Negative - 160(16) ++++ mg/dL [facility] Leukocytes, UA Negative Negative - 500+++ Sandie/mcL [facility] Nitrite, UA Negative Negative - Positive [facility] pH, UA 5.5 5 - 9 [facility] Protein, UA Negative Negative - 1999(20) ++++ mg/dL [facility] Spec Grav, UA 1.03 1 - 1.03 [facility] Urobilinogen, UA 0.2 0.2 - 12 mg/dL [facility] Laboratory - Chemistry and C hemistry - challengeon 03-17-2024 Bilirubin Ql (U) Negative NEGATIVE [facility] Glucose (U) [Mass/Vol] Negative NEGATIVE [facility] Ketones Ql (U) Negative NEGATIVE [facility] pH (U) 7.0 [pH] 5.0-9.0 [facility] Specific gravity (U) [Rel density] 1.020 1.005-1.025 [facility] Urobilinogen Qn (U) 1.0 {Chanel'U}/dL 0.2-1.0 [facility] Laboratory - Specimen inform ationon 03-17-2024 Appearance (U) CLEAR CLEAR [facility] Color (U) LT. YELLOW YELLOW [facility] Laboratory - Urinalysison Leukocyte esterase Test strip Ql (U) TRACE Abnormal NEGATIVE [facility] Mucus Ql (Urine sed) TRACE Abnormal NONE SEEN [facility] Nitrite Ql (U) Negative NEGATIVE [facility] Protein Ql (U) Negative NEG/TRACE [facility] No Panel Informationon 03-17 Human Chorionic Gonadotropin, Quant 85324 mIU/mL [facility] Comment on above: 5-50 0.2-1 [id number] 0 1-2 GFOYZ449-7,000 2-3 TVEWA956-91,000 3-4 WEEKS1,000-50,000 4-5 WEEKS10,000-100,000 5-6 WEEKS15,000-200,000 6-8 WEEKS10,000-100,000 2-3 MONTHS Miscellaneous Test Comment See comment [facility] Comment on above: Specimen Source: UCC - Urine,Clean Catch - Urine CC - 200.100 Urine Bacteria MODERATE #/HPF Abnormal NONE SEEN [facility] Urine Culture Reflexed YES [facility] Urine Culture Result 1 \R\ Urine Culture, Routine [facility] Urine Microscopic Review YES [facility] Urine Occult Blood MODERATE Abnormal NEGATIVE [facility] Urine Other Casts NONE SEEN #/LPF NONE SEEN [facility] Urine Other Crystals None Seen #/HPF None Seen [facility] Urine RBC 2-5 #/HPF Abnormal 0-2 [facility] Urine Squamous Epithelial Cells MODERATE #/LPF Abnormal NONE/RARE [facility] Urine WBC 0-2 #/HPF Abnormal NONE SEEN [facility] HCG ( test) Ql (U)o n 03-14-2024 Interpretation and review of laboratory results Abnormal [facility] Preg Test, Ur Positive Negative [facility] Urinalysis macro (dipstick) panel (U)on 03-14-2024 Bilirubin, UA Positive Negative - 4(70) +++ mg/dL [facility] Comment on above: small Blood, UA Positive Negative - 50 Fuad/mcL [facility] Comment on above: moderate Clarity, UA Clear [facility] Color, UA Yellow [facility] Glucose, UA Negative Negative - 2000(110) ++++ mg/dL [facility] Interpretation and review of laboratory results Abnormal [facility] Ketones, UA Positive Negative - 160(16) ++++ mg/dL [facility] Comment on above: 40 Leukocytes, UA Negative Negative - 500+++ Sandie/mcL [facility] Nitrite, UA Negative Negative - Positive [facility] pH, UA 5.5 5 - 9 [facility] Protein, UA Negative Negative - 1999(20) ++++ mg/dL [facility] Spec Grav, UA 1.03 1 - 1.03 [facility] Urobilinogen, UA 0.2 0.2 - 12 mg/dL [facility] No Panel Informationon 03-08 Human Chorionic Gonadotropin, Quant 2190 mIU/mL [facility] Comment on above: 5-50 0.2-1 [id number] 0 1-2 SDSWE335-5,000 2-3 YEIUT281-84,000 3-4 WEEKS1,000-50,000 4-5 WEEKS10,000-100,000 5-6 WEEKS15,000-200,000 6-8 WEEKS10,000-100,000 2-3 MONTHS [facility] PREG QUANT HCGon 024 HCG QUANTITATIVE 2190 mIU/mL [facility] Comment on above: 5-50 0.2-1 WEEK 50-500 1-2 WEEKS 100-5,000 2-3 WEEKS 500-10,000 3-4 WEEKS 1,000-50,000 4-5 WEEKS 10,000-100,000 5-6 WEEKS 15,000-200,000 6-8 WEEKS 10,000-100,000 2-3 MONTHS CL[facility]IS[facility] No Panel Informationon 03-02 Human Chorionic Gonadotropin, Quant 67 mIU/mL [facility] Comment on above: 5-50 0.2-1 [id number] 0 1-2 VVAUS468-9,000 2-3 NJPHF506-29,000 3-4 WEEKS1,000-50,000 4-5 WEEKS10,000-100,000 5-6 WEEKS15,000-200,000 6-8 WEEKS10,000-100,000 2-3 MONTHS No Panel Informationon 02-28 Human Chorionic Gonadotropin, Quant 30 mIU/mL [facility] Comment on above: 5-50 0.2-1 [id number] 0 1-2 EHEGN343-2,000 2-3 YCZFV713-56,000 3-4 WEEKS1,000-50,000 4-5 WEEKS10,000-100,000 5-6 WEEKS15,000-200,000 6-8 WEEKS10,000-100,000 2-3 MONTHS Basophils Auto (Bld) [#/Vol] on 02-27-2024 Basophils (Bld) [#/Vol] Automated basophil count 0.0-0.1 [facility] Basophils/100 WBC Auto (Bld) on 02-27-2024 Basophils/100 WBC (Bld) Automated basophil % 0.2-2.0 [facility] Eosinophils/100 WBC Auto (Bl d)on 02-27-2024 Eosinophils/100 WBC (Bld) Automated eosinophil % Low 0.9-7.0 [facility] Erythrocyte distribution wid th Auto (RBC) [Ratio]on 02-27-2024 Erythrocyte distribution width (RBC) [Ratio] Erythrocyte distribution width [Ratio] by Automated count 11.0-15.0 [facility] Estimated glomerular filtrat ion rate (GFR) non- Americanon 02-27-2024 GFR/1.73 sq M.predicted among non-blacks MDRD (S/P/Bld) [Vol rate/Area] Estimated glomerular filtration rate (GFR) non- >=60 mL/min/1.73 m 2 [facility] HCG ( test) IA.rapi d Ql (U)on 02-27-2024 HCG ( test) Ql (U) Urine human chorionic gonadotropin (hCG) detection by immunoassay Abnormal NEGATIVE [facility] Hematocrit Auto (Bld) [Volum e fraction]on 02-27-2024 Hematocrit (Bld) [Volume fraction] Hematocrit [Volume Fraction] of Blood by Automated count 36.0-48.0 [facility] Hemoglobin [Mass/volume] in Bloodon 02-27-2024 Hemoglobin (Bld) [Mass/Vol] Hemoglobin [Mass/volume] in Blood 12.0-16.0 [facility] Laboratory - Chemistry and C hemistry - challengeon 02-27-2024 Calcium [Mass/Vol] 9.4 mg/dL 8.5-10.1 [facility] Chloride [Moles/Vol] 104 mmol/L 98-107 [facility] CO2 [Moles/Vol] 22.6 mmol/L 21.0-32.0 [facility] Creatinine [Mass/Vol] 0.79 mg/dL 0.55-1.02 [facility] GFR/1.73 sq M.predicted MDRD (S/P/Bld) [Vol rate/Area] mL/min/{1.73_m2} >=60 mL/min/1.73 m 2 [facility] Glucose [Mass/Vol] 88 mg/dL 74-106 [facility] Potassium [Moles/Vol] 3.4 mmol/L Low 3.5-5.1 [facility] Sodium [Moles/Vol] 139 mmol/L 136-145 [facility] Urea nitrogen [Mass/Vol] 10.0 mg/dL 7.0-18.0 [facility] Urea nitrogen/Creatinine [Mass ratio] 12.7 mg/mg [facility] Bilirubin Ql (U) Negative NEGATIVE [facility] Glucose (U) [Mass/Vol] Negative NEGATIVE [facility] Ketones Ql (U) 15 mg/dL Abnormal NEGATIVE [facility] pH (U) 6.0 [pH] 5.0-9.0 [facility] Specific gravity (U) [Rel density] 1.025 1.005-1.025 [facility] Urobilinogen Qn (U) 0.2 {Chanel'U}/dL 0.2-1.0 [facility] Laboratory - Hematology and Cell countson 02-27-2024 Immature granulocytes/100 WBC (Bld) 0.1 % 0.0-0.5 [facility] Laboratory - Specimen inform ationon 02-27-2024 Appearance (U) CLEAR CLEAR [facility] Color (U) LT. YELLOW YELLOW [facility] Laboratory - Urinalysison Leukocyte esterase Test strip Ql (U) Negative NEGATIVE [facility] Nitrite Ql (U) Negative NEGATIVE [facility] Protein Ql (U) Negative NEG/TRACE [facility] Leukocytes [#/volume] correc leonidas for nucleated erythrocytes in Blood by Automated counon 02-27-2024 WBC corrected for nucl RBC Auto (Bld) [#/Vol] Leukocytes [#/volume] corrected for nucleated erythrocytes in Blood by Automated coun 4.0-11.0 [facility] Lymphocytes Auto (Bld) [#/Vo l]on 02-27-2024 Lymphocytes (Bld) [#/Vol] Lymphocytes [#/volume] in Blood by Automated count 1.2-3.8 [facility] Lymphocytes/100 WBC Auto (Bl d)on 02-27-2024 Lymphocytes/100 WBC (Bld) Lymphocytes/100 leukocytes in Blood by Automated count 20.5-60.0 [facility] MCH Auto (RBC) [Entitic mass ]on 02-27-2024 MCH (RBC) [Entitic mass] MCH [Entitic mass] by Automated count 26.7-34.0 [facility] MCHC Auto (RBC) [Mass/Vol]on 02-27-2024 MCHC (RBC) [Mass/Vol] MCHC [Mass/volume] by Automated count High 29.9-35.2 [facility] MCV Auto (RBC) [Entitic vol] on 02-27-2024 MCV (RBC) [Entitic vol] MCV [Entitic volume] by Automated count 81.0-99.0 [facility] Monocytes Auto (Bld) [#/Vol] on 02-27-2024 Monocytes (Bld) [#/Vol] Automated blood monocyte count 0.3-0.8 [facility] Monocytes/100 WBC Auto (Bld) on 02-27-2024 Monocytes/100 WBC (Bld) Automated monocyte % 1.7-12.0 [facility] Neutrophils Auto (Bld) [#/Vo l]on 02-27-2024 Neutrophils (Bld) [#/Vol] Neutrophils [#/volume] in Blood by Automated count 1.4-6.5 [facility] Neutrophils/100 WBC Auto (Bl d)on 02-27-2024 Neutrophils/100 WBC (Bld) Automated neutrophil % 43.0-75.0 [facility] No Panel Informationon 02-26 Eosinophils # (Auto) 0.1 10 3/uL 0.0-0.7 [facility] Human Chorionic Gonadotropin, Quant 16 mIU/mL [facility] Comment on above: 5-50 0.2-1 [id number] 0 1-2 BLYAC076-8,000 2-3 OXCTK379-92,000 3-4 WEEKS1,000-50,000 4-5 WEEKS10,000-100,000 5-6 WEEKS15,000-200,000 6-8 WEEKS10,000-100,000 2-3 MONTHS Immature Granulocyte # (Auto) 0.01 10 3/uL 0.00-0.03 [facility] Urine Microscopic Review NO [facility] Urine Occult Blood Negative NEGATIVE [facility] Platelet mean volume Auto (B ld) [Entitic vol]on 02-27-2024 Platelet mean volume (Bld) [Entitic vol] Platelet mean volume [Entitic volume] in Blood by Automated count 9.5-13.5 [facility] Platelets Auto (Bld) [#/Vol] on 02-27-2024 Platelets (Bld) [#/Vol] Platelets [#/volume] in Blood by Automated count 150-450 [facility] RBC Auto (Bld) [#/Vol]on RBC (Bld) [#/Vol] Erythrocytes [#/volume] in Blood by Automated count 4.20-5.40 [facility] Serum or plasma anion gap de terminationon 02-27-2024 Anion gap [Moles/Vol] Serum or plasma an ion gap determination [facility] No Panel Informationon 02-20 Human Chorionic Gonadotropin, Quant <1 mIU/mL [facility] Comment on above: 5-50 0.2-1 [id number] 0 1-2 JWIEB550-8,000 2-3 ILCUP612-34,000 3-4 WEEKS1,000-50,000 4-5 WEEKS10,000-100,000 5-6 WEEKS15,000-200,000 6-8 WEEKS10,000-100,000 2-3 MONTHS URETHRITIS/DISCHARGE PLUS VA GINITIS (HTRX)on 02-10-2024 ATOPOBIUM VAGINAE 0.000 [facility] Healthcare ATOPOBIUM VAGINAE Not detected [facility] BVAB 2,3 (BACTERIAL VAGINOSIS ASSOCIATED BACTERIA 2, 3); MOBILUNCUS SPP 0.000 [facility] Healthcare BVAB 2,3 (BACTERIAL VAGINOSIS ASSOCIATED BACTERIA 2, 3); MOBILUNCUS SPP Not detected [facility] ALICIA ALBICANS, PARAPSILOSIS, TROPICALIS 0.000 [facility] ALICIA ALBICANS, PARAPSILOSIS, TROPICALIS Not detected [facility] ALICIA GLABRATA 0.000 [facility] ALICIA GLABRATA Not detected [facility] ALICIA KRUSEI 0.000 [facility] ALICIA KRUSEI Not detected [facility] CHLAMYDIA TRACHOMATIS 0.000 [facility] CHLAMYDIA TRACHOMATIS Not detected [facility] GARDNERELLA VAGINALIS 0.000 [facility] GARDNERELLA VAGINALIS Not detected [facility] MEGASPHAERA (TYPES 1, 2) 0.000 [facility] MEGASPHAERA (TYPES 1, 2) Not detected [facility] MYCOPLASMA GENITALIUM 0.000 [facility] MYCOPLASMA GENITALIUM Not detected [facility] NEISSERIA GONORRHOEAE 0.000 [facility] NEISSERIA GONORRHOEAE Not detected [facility] TRICHOMONAS VAGINALIS 0.000 [facility] TRICHOMONAS VAGINALIS Not detected N [facility] HCG ( test) Ql (U)o n 02-08-2024 Interpretation and review of laboratory results Normal [facility] Preg Test, Ur Negative [facility] Urinalysis macro (dipstick) panel (U)on 02-08-2024 Bilirubin, UA Negative Negative - 4(70) +++ mg/dL [facility] Blood, UA Negative Negative - 50 Fuad/mcL [facility] Clarity, UA Clear [facility] Color, UA Yellow [facility] Glucose, UA Negative Negative - 1999(110) ++++ mg/dL [facility] Interpretation and review of laboratory results Normal [facility] Ketones, UA Negative Negative - 160(16) ++++ mg/dL [facility] Leukocytes, UA Negative Negative - 500+++ Sandie/mcL [facility] Nitrite, UA Negative Negative - Positive [facility] pH, UA 7.5 5 - 9 [facility] Protein, UA Negative Negative - 1999(20) ++++ mg/dL [facility] Spec Grav, UA 1.020 1 - 1.03 [facility] Urobilinogen, UA 0.2 0.2 - 12 mg/dL [facility] Vaginitis Plus (VG+)on 02-01 Atopobium Vaginae Low - 0 Normal . [facility] Comment on above: Result Comment: This test was developed and its performance characteristics determined by [facility]. It has not been cleared or approved by the Food and Drug Administration. Performed By: #### V AGINITIS+ #### [facility] , BVAB2 Low - 0 Normal . [facility] Comment on above: Result Comment: This test was developed and its performance characteristics determined by [facility]. It has not been cleared or approved by the Food and Drug Administration. Performed By: #### V AGINITIS+ #### [facility] , Alicia Albicans, ELDON Positive Critically abnormal Negative [facility] Comment on above: Result Comment: This test was developed and its performance characteristics determined by [facility]. It has not been cleared or approved by the Food and Drug Administration. Performed By: #### V AGINITIS+ #### [facility] , Alicia Glabrata, ELDON Negative Normal Negative [facility] Comment on above: Result Comment: This test was developed and its performance characteristics determined by [facility]. It has not been cleared or approved by the Food and Drug Administration. PERFORMED BY: [address] [address] PATHOLOGIST BONDING AND COMPOSITE FABRICATOR IRENE TURPIN M.D. Performed By: #### V AGINITIS+ #### [facility] , Chlamydia Trachomotis, ELDON Negative Normal Negative [facility] Comment on above: Performed By: #### V AGINITIS+ #### [facility] , Megasphaera Low - 0 Normal . [facility] Comment on above: [...] Neisseria Gonorrhoeae, ELDON Negative Normal Negative [facility] Comment on above: Result Comment: Perf ormed at: =G - [facility] [address] [place] [id number] Lead Ramp Agent: Bri Keenan MD, Phone: [phone] Performed By: #### V AGINITIS+ #### [facility] , Tric Vag ELDON Negative Normal Negative [facility] Comment on above: Performed By: #### V AGINITIS+ #### [facility] , Basophils Auto (Bld) [#/Vol] on 01-19-2024 Basophils (Bld) [#/Vol] 0.0 10 3/uL 0.0-0.1 [facility] Basophils/100 WBC Auto (Bld) on 01-19-2024 Basophils/100 WBC (Bld) 0.4 % 0.2-2.0 [facility] Eosinophils/100 WBC Auto (Bl d)on 01-19-2024 Eosinophils/100 WBC (Bld) 1.0 % 0.9-7.0 [facility] Erythrocyte distribution wid th Auto (RBC) [Ratio]on 01-19-2024 Erythrocyte distribution width (RBC) [Ratio] 11.7 % 11.0-15.0 [facility] Estimated glomerular filtrat ion rate (GFR) non- Americanon 01-19-2024 GFR/1.73 sq M.predicted among non-blacks MDRD (S/P/Bld) [Vol rate/Area] mL/min/{1.73_m2} >=60 [facility] Hematocrit Auto (Bld) [Volum e fraction]on 01-19-2024 Hematocrit (Bld) [Volume fraction] 39.6 % 36.0-48.0 [facility] Hemoglobin [Mass/volume] in Bloodon 01-19-2024 Hemoglobin (Bld) [Mass/Vol] 14.3 g/dL 12.0-16.0 [facility] Laboratory - Chemistry and C hemistry - challengeon 01-19-2024 Calcium [Mass/Vol] 8.7 mg/dL 8.5-10.1 [facility] Chloride [Moles/Vol] 100 mmol/L 98-107 [facility] CO2 [Moles/Vol] 27.5 mmol/L 21.0-32.0 [facility] Creatinine [Mass/Vol] 0.88 mg/dL 0.55-1.02 [facility] GFR/1.73 sq M.predicted MDRD (S/P/Bld) [Vol rate/Area] mL/min/{1.73_m2} >=60 [facility] Glucose [Mass/Vol] 94 mg/dL 74-106 [facility] Potassium [Moles/Vol] 3.3 mmol/L Low 3.5-5.1 [facility] Sodium [Moles/Vol] 135 mmol/L Low 136-145 [facility] Urea nitrogen [Mass/Vol] 12.0 mg/dL 7.0-18.0 [facility] Urea nitrogen/Creatinine [Mass ratio] 13.6 mg/mg [facility] Laboratory - Hematology and Cell countson 01-19-2024 Immature granulocytes/100 WBC (Bld) 0.0 % 0.0-0.5 [facility] Leukocytes [#/volume] correc leonidas for nucleated erythrocytes in Blood by Automated counon 01-19-2024 WBC corrected for nucl RBC Auto (Bld) [#/Vol] 4.8 10 3/uL 4.0-11.0 [facility] Lymphocytes Auto (Bld) [#/Vo l]on 01-19-2024 Lymphocytes (Bld) [#/Vol] 1.2 10 3/uL 1.2-3.8 [facility] Lymphocytes/100 WBC Auto (Bl d)on 01-19-2024 Lymphocytes/100 WBC (Bld) 25.1 % 20.5-60.0 [facility] MCH Auto (RBC) [Entitic mass ]on 01-19-2024 MCH (RBC) [Entitic mass] 30.4 pg 26.7-34.0 [facility] MCHC Auto (RBC) [Mass/Vol]on 01-19-2024 MCHC (RBC) [Mass/Vol] 36.1 g/dL High 29.9-35.2 [facility] MCV Auto (RBC) [Entitic vol] on 01-19-2024 MCV (RBC) [Entitic vol] 84.1 fL 81.0-99.0 [facility] Monocytes Auto (Bld) [#/Vol] on 01-19-2024 Monocytes (Bld) [#/Vol] 0.6 10 3/uL 0.3-0.8 [facility] Monocytes/100 WBC Auto (Bld) on 01-19-2024 Monocytes/100 WBC (Bld) 11.6 % 1.7-12.0 [facility] Neutrophils Auto (Bld) [#/Vo l]on 01-19-2024 Neutrophils (Bld) [#/Vol] 3.0 10 3/uL 1.4-6.5 [facility] Neutrophils/100 WBC Auto (Bl d)on 01-19-2024 Neutrophils/100 WBC (Bld) 61.9 % 43.0-75.0 [facility] No Panel Informationon 01-18 Eosinophils # (Auto) 0.1 10 3/uL 0.0-0.7 [facility] Human Chorionic Gonadotropin, Qual Negative NEGATIVE [facility] Immature Granulocyte # (Auto) 0.00 10 3/uL 0.00-0.03 [facility] Platelet mean volume Auto (B ld) [Entitic vol]on 01-19-2024 Platelet mean volume (Bld) [Entitic vol] 11.2 fL 9.5-13.5 [facility] Platelets Auto (Bld) [#/Vol] on 01-19-2024 Platelets (Bld) [#/Vol] 137 10 3/uL Low 150-450 [facility] RBC Auto (Bld) [#/Vol]on RBC (Bld) [#/Vol] 4.71 10 6/uL 4.20-5.40 [facility] Serum or plasma anion gap de terminationon 01-19-2024 Anion gap [Moles/Vol] 10.8 mmol/L [facility] Choriogonadotropin.beta subu nit ( test) [Presence] in Urineon 01-03-2024 Beta HCG ( test) Ql (U) Negative [facility] Influenza virus A and B and SARS-CoV-2 (COVID-19) RNA panel - Respiratory system specon 01-03-2024 Influenza virus A and B RNA and SARS-CoV-2 (COVID-19) N gene panel ELDON+probe (Resp) Negative [facility] Laboratory - Microbiology an d Antimicrobial susceptibilityon 01-03-2024 SARS-CoV-2 (COVID-19) RNA ELDON+probe Ql (Unsp spec) Negative [facility] No Panel Informationon 01-02 POC Influenza B (ELDON) Negative [facility] No Panel InformationOrdered By: Evelyn Vu on 01-03-2024 Quick Strep (POC) [facility] Quick Strepon 10-02-2022 S. pyogenes Org specific cx Ql (Throat) Negative [employer] Other Quick Strep [employer] [facility] [employer] Other COVID19(IDNOW)on 11-30-2019 COVID19(IDNOW) NOT DETECTED Normal NOT DETECTED [facility] Comment on above: Result Comment: Nega tive results do not preclude SARS-CoV-2 infection and should not be used as the sole basis for treatiment or other patient management. ENHANCED CONTACT, AND DROPLET ISOLATION IS REQUIRED FOR INPATIENTS WITH SARS-CoV-2. Performed By: #### C OVID19(IDNOW) #### [address] [place] [address] Age at specimen collection = Normal [facility] Comment on above: Performed By: #### C OVID19(IDNOW) #### [facility] [address] [place] [address] Hematologyon 05-11-2019 Basophils (Bld) [#/Vol] 0.0 10*3/uL 0.0-0.1 [employer] Basophils/100 WBC (Bld) 0.40 % 0.0-1.0 [employer] Eosinophils (Bld) [#/Vol] 0.10 10*3/uL 0.0-0.5 [employer] Eosinophils/100 WBC (Bld) 1.30 % 0.0-7.0 [employer] Hematocrit (Bld) [Volume fraction] 41.30 % 35.7-47.1 [employer] Hemoglobin (Bld) [Mass/Vol] 14.10 g/dL 11.9-15.7 [employer] Lymphocytes (Bld) [#/Vol] 2.20 10*3/uL 0.9-3.1 [employer] Lymphocytes/100 WBC (Bld) 29.30 % 15.0-46.0 [employer] MCH (RBC) [Entitic mass] 29.90 pg 23.2-33.3 [employer] MCV (RBC) [Entitic vol] 87.50 fL 83.4-101.4 [employer] Monocytes (Bld) [#/Vol] 0.60 10*3/uL 0.3-1.0 [employer] Monocytes/100 WBC (Bld) 8.60 % 4.0-12.0 [employer] Neutrophils (Bld) [#/Vol] 4.50 10*3/uL 1.8-7.9 [employer] Neutrophils/100 WBC (Bld) 60.0 % 43.0-76.0 [employer] Platelets (Bld) [#/Vol] 160.0 10*3/uL 150-400 [employer] RBC (Bld) [#/Vol] 4.720 10*6/uL 3.72-5.24 [facility] [employer] WBC (Bld) [#/Vol] 7.40 10*3/uL 3.9-10.3 [facility] [employer] Otheron 05-11-2019 Erythrocyte distribution width (RBC) [Ratio] 12.10 % 11.5-15.5 [employer] Immature granulocytes (Bld) [#/Vol] 0.030 10*3/uL 0.00-0.06 [employer] Immature granulocytes/100 WBC (Bld) 0.40 % 0.0-0.5 [employer] MCHC (RBC) [Mass/Vol] 34.10 g/dL 32.0-36.0 [facility] [employer] Platelet mean volume (Bld) [Entitic vol] 11.10 fL 8.3-11.5 [employer] COMMENT [employer] <9.0 0.0-8.9 [employer] 303.0 0.0-17.9 [employer] <36.0 0.0-35.9 [employer] 38.9 0.0-17.9 [employer] Thyroidon 05-11-2019 TSH Qn 1.96 m[IU]/L 0.50-4.00 [employer] Basic Metabolic Profon 04-20 (cont.) [facility] Comment on above: Result Comment: Aver age GFR for 20-29 years old: 116 mL/min/1.73sq mChronic Kidney Disease: <60 mL/min/1.73sq mKidney failure: <15 mL/min/1.73sq meGFR calculated using average adult body mass. Additional eGFR calculator available at:http://www.[employer]FlexMe/multiple_crcl_2012.htm Performed By: #### B MP, CBC ####[address] [place] [address] Anion gap 3 molar conc 11 mmol/L Normal 9-17 [facility] Comment on above: Performed By: #### B MP, CBC ####[address] [place] [address] BUN/CRE Ratio 18 Normal 9-20 [facility] Comment on above: Performed By: #### B MP, CBC ####[address] [place] [address] Calcium mass conc 9.2 mg/dL Normal 8.6-10.4 [facility] Comment on above: Performed By: #### B MP, CBC ####[address] [place] [address] Chloride molar conc 102 mmol/L Normal 98-107 [facility] Comment on above: Performed By: #### B MP, CBC ####[address] [place] [address] CO2 molar conc 26 mmol/L Normal 20-31 [facility] Comment on above: Performed By: #### B MP, CBC ####[address] [place] [address] Creatinine mass conc 0.65 mg/dL Normal 0.50-0.90 [facility] Comment on above: Performed By: #### B MP, CBC ####[address] [place] [address] GFR, Amer >60 Normal >60 [facility] Comment on above: Performed By: #### B MP, CBC ####[address] [place] [address] GFR,non Amer >60 Normal >60 [facility] Comment on above: Performed By: #### B MP, CBC ####[address] [place] [address] Glucose mass conc 89 mg/dL Normal 70-99 [facility] Comment on above: Performed By: #### B MP, CBC ####[address] [place] [address] Potassium molar conc 3.8 mmol/L Normal 3.7-5.3 [facility] Comment on above: Performed By: #### B MP, CBC ####[address] [place] [address] Sodium molar conc 139 mmol/L Normal 135-144 [facility] Comment on above: Performed By: #### B MP, CBC ####[address] [place] [address] Staging: Normal [facility] Comment on above: Result Comment: Stag e 1: Some kidney damage normal GFRStage 2: Mild kidney damage GFR 60-89Stage 3: Moderate kidney damage GFR 30-59Stage 4: Severe kidney damage GFR 15-29Stage 5: Severe kidney damage GFR <15ESRD - chronic treatment by dialysis or transplant Performed By: #### B MP, CBC ####[address] [place] [address] Urea nitrogen mass conc 12 mg/dL Normal 6-20 [facility] Comment on above: Performed By: #### B MP, CBC ####[address] [place] [address] CBCon 04-20-2018 Erythrocyte distribution width Auto Ratio (RBC) 12.1 % Normal 11.8-14.4 [facility] Comment on above: Performed By: #### B MP, CBC ####[address] [place] [address] Hematocrit Auto Volume Fraction (Bld) 42.6 % Normal 36.3-47.1 [facility] Comment on above: Performed By: #### B MP, CBC ####[address] [place] [address] Hemoglobin mass conc (Bld) 14.7 g/dL Normal 11.9-15.1 [facility] Comment on above: Performed By: #### B MP, CBC ####[address] [place] [id number] MCH Auto Entitic mass (RBC) 30.2 pg Normal 25.2-33.5 [facility] Comment on above: Performed By: #### B MP, CBC ####[address] [place] [address] MCHC Auto mass conc (RBC) 34.5 g/dL Normal 28.4-34.8 [facility] Comment on above: Performed By: #### B MP, CBC ####[address] [place] [address] MCV Auto Entitic volume (RBC) 87.7 fL Normal 82.6-102.9 [facility] Comment on above: Performed By: #### B MP, CBC ####[address] [place] [id number] NRBC Automated 0.0 per 100 WBC Normal 0.0 [facility] Comment on above: Performed By: #### B MP, CBC ####[address] [place] [address] Platelet mean volume Auto Entitic volume (Bld) 10.8 fL Normal 8.1-13.5 [facility] Comment on above: Performed By: #### B MP, CBC ####[address] [place] [address] Platelets Auto #/vol (Bld) 142 10*3/uL Normal 138-453 [facility] Comment on above: Performed By: #### B MP, CBC ####[address] [place] [address] RBC Auto #/vol (Bld) 4.86 10*6/uL Normal 3.95-5.11 [facility] Comment on above: Performed By: #### B MP, CBC ####[address] [place] [address] WBC Auto #/vol (Bld) 6.2 10*3/uL Normal 4.5-13.5 [facility] Comment on above: Performed By: #### B MP, CBC ####[address] [place] [address] HCG, ,Urineon 04-20 HCG.beta subunit ( test) [...] correlation with quantitative serum b-hCG level is suggested.[facility] has confirmed the use of plasma for this test. This has not been cleared or approved by the U.S. Food and Drug Administration. The FDA has determined that such clearance is not necessary. Performed By: #### U HCG ####[address] , [facility]83 UA w/Reflex Cultureon 2017 Acetoacetic Acid,Ur Negative Normal NEG [facility] Comment on above: Performed By: #### U AX, UMICAO ####[address] [place] [address] Bilirubin, SemiQt,Ur Negative Normal NEG [facility] Comment on above: Performed By: #### U AX, UMICAO ####[address] [place] [address] Color YELLOW Normal YEL [facility] Comment on above: Performed By: #### U AX, UMICAO ####[address] [place] [address] Glucose,Semi-qnt,Ur Negative Normal NEG [facility] Comment on above: Performed By: #### U AX, UMICAO ####[address] [place] [address] Hemoglobin, Ur Negative Normal NEG [facility] Comment on above: Performed By: #### U AX, UMICAO ####[address] [place] [address] Leuckocyte Esterase Negative Normal NEG [facility] Comment on above: Performed By: #### U AX, UMICAO ####[address] [place] [address] Nitrite,Ur Negative Normal NEG [facility] Comment on above: Performed By: #### U AX, UMICAO ####[address] [place] [address] PH,Ur 6.0 Normal 5.0-9.0 [facility] Comment on above: Performed By: #### U AX, UMICAO ####[address] [place] [address] Protein, Semi-qnt,Ur Negative Normal NEG [facility] Comment on above: Performed By: #### U AX, UMICAO ####[address] [place] [address] Spec. [place],Ur 1.025 High 1.010-1.020 [facility] Comment on above: Performed By: #### U AX, UMICAO ####[address] [place] [address] Turbidity CLEAR Normal CLEAR [facility] Comment on above: Performed By: #### U AX UMICAO ####[address] [place] [address] Urobilinogen,Ur Normal Normal NORM [facility] Comment on above: Performed By: #### U AXTABATHAICAO ####[address] [place] [address] Comment NOT REPORTED Normal [facility] Comment on above: Performed By: #### U DOMENICO CULVERO ####[address] [place] [address] Urinalysis,Microon 8 ----- Normal [facility] Comment on above: Performed By: #### U TABATHA CULVERICAO ####[address] [place] [address] Bacteria 1+ Abnormal NONE [facility] Comment on above: Performed By: #### U AXTABATHAICAO ####[address] [place] [address] Epithelial cells 2 TO 5 Normal 0-25 [facility] Comment on above: Performed By: #### U AXTABATHAICAO ####[address] [place] [address] RBC Test strip #/vol (U) None Normal 0-2 [facility] Comment on above: Performed By: #### U AX UMICAO ####[address] [place] [address] Urine WBC's 0 TO 2 Normal 0-5 [facility] Comment on above: Performed By: #### U AX UMICAO ####[address] [place] [address] Amorphous Sediment NOT REPORTED Normal NONE [facility] Comment on above: Performed By: #### U AX, UMICAO ####[address] [place] [address] Casts NOT REPORTED Normal [facility] Comment on above: Performed By: #### U AX, UMICAO ####[address] [place] [address] Crystals NOT REPORTED Normal NONE [facility] Comment on above: Performed By: #### U AX, UMICAO ####[address] [place] [address] Epithelial, Renal NOT REPORTED Normal 0 [facility] Comment on above: Performed By: #### U AX, UMICAO ####[address] [place] [address] Mucus Strands NOT REPORTED Normal NONE [facility] Comment on above: Performed By: #### U AX, UMICAO ####[address] [place] [address] Other Observations NOT REPORTED Normal NREQ [facility] Comment on above: Performed By: #### U AX, UMICAO ####[address] [place] [address] Trichomonas NOT REPORTED Normal NONE [facility] Comment on above: Performed By: #### U AX, UMICAO ####[address] [place] [address] Yeast NOT REPORTED Normal NONE [facility] Comment on above: Performed By: #### U AX, UMICAO ####[address] [place] [address] XR LUMBAR SPINE (2-3 VIEWS)o n 04-20-2018 [...] by:RIVER Jassoigned by:Phil Messer MD04/20/18Final result Normal [facility] Otheron 03-08-2018 Negative [employer] Otheron 02-03-2018 Negative [employer] Otheron 01-30-2018 Negative [employer] Cardiacon 12-28-2017 Cholesterol [Mass/Vol] 156.0 mg/dL 0-200 [employer] Cholesterol in HDL [Mass/Vol] 54.0 mg/dL 50-100 [employer] Cholesterol in LDL [Mass/Vol] 79.0 mg/dL 0-130 [employer] Triglyceride [Mass/Vol] 116.0 mg/dL 30-150 [employer] Metabolic Panelon 12-28-2017 Albumin [Mass/Vol] 4.70 g/dL 3.7-4.5 [facility] [employer] ALP [Catalytic activity/Vol] 83.0 U/L 31-155 [employer] ALT [Catalytic activity/Vol] 15.0 U/L 0-50 [employer] AST [Catalytic activity/Vol] 19.0 U/L 0-40 [employer] Bilirubin [Mass/Vol] 0.70 mg/dL 0.0-1.0 [facility] [employer] Protein [Mass/Vol] 7.80 g/dL 6.3-7.9 [facility] [employer] Otheron 12-28-2017 Albumin/Globulin [Mass ratio] 1.5 {ratio} 1.0-2.4 [employer] Cholesterol in VLDL [Mass/Vol] 23.0 mg/dL 0-39 [employer] Cholesterol.total/Cho lesterol in HDL [Mass ratio] 3 {ratio} [employer] Negative [employer] CBCon 07-28-2017 Erythrocyte distribution width Auto Ratio (RBC) 11.8 % Normal 11.8-14.4 [facility] Comment on above: Performed By: #### C SEN, CP ####[address] [place] [id number] Hematocrit Auto Volume Fraction (Bld) 41.2 % Normal 36.3-47.1 [facility] Comment on above: Performed By: #### C SEN, CP ####[address] [place] [address] Hemoglobin mass conc (Bld) 14.1 g/dL Normal 11.9-15.1 [facility] Comment on above: Performed By: #### C BC, CP ####[address] [place] [address] MCH Auto Entitic mass (RBC) 28.5 pg Normal 25.2-33.5 [facility] Comment on above: Performed By: #### C BC, CP ####[address] [place] [address] MCHC Auto mass conc (RBC) 34.2 g/dL Normal 28.4-34.8 [facility] Comment on above: Performed By: #### C BC, CP ####[address] [place] [address] MCV Auto Entitic volume (RBC) 83.2 fL Normal 82.6-102.9 [facility] Comment on above: Performed By: #### C BC, CP ####[address] [place] [address] NRBC Automated 0.0 per 100 WBC Normal 0.0 [facility] Comment on above: Result Comment: Perf ormed at [address] [place] [address] Performed By: #### C SEN, CP ####[address] [place] [address] Platelet mean volume Auto Entitic volume (Bld) 9.9 fL Normal 8.1-13.5 [facility] Comment on above: Performed By: #### C SEN, CP ####[address] [place] [address] Platelets Auto #/vol (Bld) 230 10*3/uL Normal 138-453 [facility] Comment on above: Performed By: #### C SEN, CP ####[address] [place] [address] RBC Auto #/vol (Bld) 4.95 10*6/uL Normal 3.95-5.11 [facility] Comment on above: Performed By: #### C BC, CP ####[address] [place] [address] WBC Auto #/vol (Bld) 11.8 10*3/uL Normal 4.5-13.5 [facility] Comment on above: Performed By: #### C BC, CP ####[address] [place] [address] Comp Metabolic Profon 2017 (cont.) Normal [facility] Comment on above: Result Comment: Aver age GFR for 20-29 years old: 116 mL/min/1.73sq mChronic Kidney Disease: <60 mL/min/1.73sq mKidney failure: <15 mL/min/1.73sq meGFR calculated using average adult body mass. Additional eGFR calculator available at:http://www.iFlexMe/multiple_crcl_2012.htm Performed By: #### C BC, CP ####[address] [place] [address] Albumin mass conc 4.5 g/dL Normal 3.5-5.2 [facility] Comment on above: Performed By: #### C SEN, CP ####[address] [place] [address] Albumin/Globulin mass ratio 1.3 {ratio} Normal 1.0-2.5 [facility] Comment on above: Performed By: #### C SEN, CP ####[address] [place] [address] Alkaline Phos 81 U/L Normal 35-104 [facility] Comment on above: Performed By: #### C SEN, CP ####[address] [place] [address] ALT enzyme act/vol 23 U/L Normal 5-33 [facility] Comment on above: Performed By: #### C BC, CP ####[address] [place] [address] Anion gap 3 molar conc 13 mmol/L Normal 9-17 [facility] Comment on above: Performed By: #### C BC, CP ####[address] [place] [address] AST enzyme act/vol 23 U/L Normal <32 [facility] Comment on above: Performed By: #### C BC, CP ####[address] [place] [address] Bilirubin Ql (U) 0.23 mg/dL Low 0.3-1.2 [facility] Comment on above: Performed By: #### C BC, CP ####[address] [place] [address] BUN/CRE Ratio 17 Normal 9-20 [facility] Comment on above: Performed By: #### C BC, CP ####[address] [place] [address] Calcium mass conc 9.5 mg/dL Normal 8.6-10.4 [facility] Comment on above: Performed By: #### C BC, CP ####[address] [place] [address] Chloride molar conc 101 mmol/L Normal 98-107 [facility] Comment on above: Performed By: #### C BC, CP ####[address] [place] [address] CO2 molar conc 23 mmol/L Normal 20-31 [facility] Comment on above: Performed By: #### C BC, CP ####[address] [place] [address] Creatinine mass conc 0.69 mg/dL Normal 0.50-0.90 [facility] Comment on above: Performed By: #### C BC, CP ####[address] [place] [address] GFR, Amer >60 Normal >60 [facility] Comment on above: Performed By: #### C BC, CP ####[address] [place] [address] GFR,non Amer >60 Normal >60 [facility] Comment on above: Performed By: #### C BC, CP ####[address] [place] [address] Glucose mass conc 99 mg/dL Normal 70-99 [facility] Comment on above: Performed By: #### C BC, CP ####[address] [place] [address] Potassium molar conc 3.8 mmol/L Normal 3.7-5.3 [facility] Comment on above: Performed By: #### C BC, CP ####[address] [place] [address] Protein mass conc 8.0 g/dL Normal 6.4-8.3 [facility] Comment on above: Performed By: #### C SEN, CP ####[address] [place] [address] Sodium molar conc 137 mmol/L Normal 135-144 [facility] Comment on above: Performed By: #### C SEN, CP ####[address] [place] [address] Staging: Normal [facility] Comment on above: Result Comment: Stag e 1: Some kidney damage normal GFRStage 2: Mild kidney damage GFR 60-89Stage 3: Moderate kidney damage GFR 30-59Stage 4: Severe kidney damage GFR 15-29Stage 5: Severe kidney damage GFR <15ESRD - chronic treatment by dialysis or transplantPerformed at [address] [place] [address] Performed By: #### C SEN, CP ####[address] [place] [address] Urea nitrogen mass conc 12 mg/dL Normal 6-20 [facility] Comment on above: Performed By: #### C SEN, CP ####[address] , [place] [id number]([phone] HCG, ,Urineon 07-28 HCG.beta subunit ( test) [...] correlation with quantitative serum b-hCG level is suggested.[facility] has confirmed the use of plasma for this test. This has not been cleared or approved by the U.S. Food and Drug Administration. The FDA has determined that such clearance is not necessary.Performed at [address] [place] [address] Performed By: #### U HCG, UA ####[address] [place] [address] Urinalysis, Routineon 2017 Acetoacetic Acid,Ur Negative Normal NEG [facility] Comment on above: Performed By: #### U HCG, UA ####[address] [place] [address] Bilirubin, SemiQt,Ur Negative Normal NEG [facility] Comment on above: Performed By: #### U HCG, UA ####[address] [place] [address] Color YELLOW Normal YEL [facility] Comment on above: Performed By: #### U HCG, UA ####[address] [place] [address] Glucose,Semi-qnt,Ur Negative Normal NEG [facility] Comment on above: Performed By: #### U HCG, UA ####[address] [place] [address] Hemoglobin, Ur Negative Normal NEG [facility] Comment on above: Performed By: #### U HCG, UA ####[address] [place] [address] Leuckocyte Esterase Negative Normal NEG [facility] Comment on above: Result Comment: Perf ormed at [address] [place] [address] Performed By: #### U HCG, UA ####[address] [place] [address] Nitrite,Ur Negative Normal NEG [facility] Comment on above: Performed By: #### U HCG, UA ####[address] [place] [address] PH,Ur 6.0 Normal 5.0-9.0 [facility] Comment on above: Performed By: #### U HCG, UA ####[address] [place] [address] Protein mass conc Negative Normal NEG [facility] Comment on above: Performed By: #### U HCG, UA ####[address] [place] [address] Spec. [place],Ur 1.025 High 1.010-1.020 [facility] Comment on above: Performed By: #### U HCG, UA ####[address] [place] [address] Turbidity CLEAR Normal CLEAR [facility] Comment on above: Performed By: #### U HCG, UA ####[address] [place] [address] Urobilinogen,Ur Normal Normal NORM [facility] Comment on above: Performed By: #### U HCG, UA ####[address] [place] [address] Comment NOT REPORTED Normal [facility] Comment on above: Performed By: #### U HCG, UA ####[address] [place] [address] Cardiacon 06-07-2016 Cholesterol mass conc 175.0 mg/dL 0-200 [facility] [employer] Triglyceride mass conc 58.0 mg/dL 30-150 [facility] Hematologyon 06-07-2016 Basophils #/vol (Bld) 0.0 10*3/uL 0.0-0.1 [facility] Basophils/100 WBC (Bld) 0.30 % 0.0-1.0 [facility] Eosinophils #/vol (Bld) 0.10 10*3/uL 0.0-0.5 [facility] Eosinophils/100 WBC (Bld) 1.80 % 0.0-7.0 [facility] Hematocrit Volume Fraction (Bld) 40.50 % 35.7-47.1 [facility] Hemoglobin mass conc (Bld) 13.60 g/dL 11.9-15.7 [facility] Lymphocytes #/vol (Bld) 3.40 10*3/uL 0.9-3.1 [facility] [place] [facility] Lymphocytes/100 WBC (Bld) 41.0 % 28.0-42.0 [facility] MCH Entitic mass (RBC) 29.60 pg 23.2-33.3 [facility] MCV Entitic volume (RBC) 88.40 fL 82.0-98.4 [facility] Monocytes #/vol (Bld) 0.60 10*3/uL 0.3-1.0 [facility] [place] [facility] Monocytes/100 WBC (Bld) 7.40 % 4.0-12.0 [facility] Neutrophils #/vol (Bld) 4.20 10*3/uL 1.8-7.9 [facility] [place] [facility] Neutrophils/100 WBC (Bld) 49.50 % 45.6-68.4 [employer] Platelets #/vol (Bld) 225.0 10*3/uL 150-400 [facility] [employer] RBC #/vol (Bld) 4.580 10*6/uL 3.72-5.24 [facility] [employer] WBC #/vol (Bld) 8.30 10*3/uL 3.9-10.3 [facility] [employer] Metabolic Panelon 06-07-2016 Albumin mass conc 4.40 g/dL 3.7-4.5 [facility] [employer] ALP enzyme act/vol 77.0 U/L 31-155 [facility] [employer] [facility] ALT enzyme act/vol 17.0 U/L 0-50 [facility] [employer] AST enzyme act/vol 21.0 U/L 0-40 [facility] [employer] Bilirubin mass conc 0.40 mg/dL 0.0-1.0 [facility] [employer] Protein mass conc 7.40 g/dL 6.3-7.9 [facility] [employer] Otheron 06-07-2016 Albumin/Globulin mass ratio 1.5 {ratio} 1.0-2.4 [facility] [employer] Erythrocyte distribution width Ratio (RBC) 11.80 % 11.5-15.5 [employer] MCHC mass conc (RBC) 33.50 g/dL 32.0-36.0 [facility] [employer] Platelet mean volume Entitic volume (Bld) 9.0 fL 7.4-10.4 [employer] Negative [employer] Otheron 04-23-2016 Negative [employer] Otheron 03-19-2016 Negative [facility] [place] [facility] [employer] Cardiacon 02-12-2016 Cholesterol mass conc 175.0 mg/dL 0-200 [facility] [employer] Triglyceride mass conc 59.0 mg/dL 30-150 [facility] [place] [facility] Hematologyon 02-12-2016 Basophils #/vol (Bld) 0.10 10*3/uL 0.0-0.1 [facility] [employer] Basophils/100 WBC (Bld) 0.90 % 0.0-1.0 [facility] Eosinophils #/vol (Bld) 0.10 10*3/uL 0.0-0.5 [facility] [employer] [facility] Eosinophils/100 WBC (Bld) 1.70 % 0.0-7.0 [facility] Hematocrit Volume Fraction (Bld) 41.60 % 35.7-47.1 [facility] [employer] Hemoglobin mass conc (Bld) 14.0 g/dL 11.9-15.7 [facility] [employer] [facility] Lymphocytes #/vol (Bld) 2.30 10*3/uL 0.9-3.1 [facility] [facility] Lymphocytes/100 WBC (Bld) 36.10 % 28.0-42.0 [employer] MCH Entitic mass (RBC) 29.40 pg 23.2-33.3 [facility] [employer] [facility] MCV Entitic volume (RBC) 87.60 fL 82.0-98.4 [employer] Monocytes #/vol (Bld) 0.50 10*3/uL 0.3-1.0 B [facility] [employer] Monocytes/100 WBC (Bld) 7.20 % 4.0-12.0 [facility] [place] [facility] [employer] Neutrophils #/vol (Bld) 3.30 10*3/uL 1.8-7.9 [facility] [employer] Neutrophils/100 WBC (Bld) 54.10 % 45.6-68.4 [facility] [employer] Platelets #/vol (Bld) 180.0 10*3/uL 150-400 [facility] [employer] [facility] RBC #/vol (Bld) 4.750 10*6/uL 3.72-5.24 [facility] [employer] WBC #/vol (Bld) 6.30 10*3/uL 3.9-10.3 [facility] [employer] Metabolic Panelon 02-12-2016 Albumin mass conc 4.50 g/dL 3.7-4.5 [facility] [employer] ALP enzyme act/vol 79.0 U/L 31-155 [facility] [employer] ALT enzyme act/vol 21.0 U/L 0-50 [facility] [employer] AST enzyme act/vol 22.0 U/L 0-40 [facility] [employer] Bilirubin mass conc 0.40 mg/dL 0.0-1.0 [facility] [employer] Protein mass conc 7.0 g/dL 6.3-7.9 [facility] [employer] Otheron 02-12-2016 Albumin/Globulin mass ratio 1.8 {ratio} 1.0-2.4 [employer] Erythrocyte distribution width Ratio (RBC) 12.10 % 11.5-15.5 [employer] MCHC mass conc (RBC) 33.60 g/dL 32.0-36.0 [facility] [employer] Platelet mean volume Entitic volume (Bld) 9.70 fL 7.4-10.4 [employer] Negative [employer] Vital Signs Date Time Vital Sign Value Performing Clinician Facility 10-23-2024 09:06-0400 Body mass index (BMI) [Ratio] 27.59 kg/m2 Eleazar Vijaya DO Work Phone: [facility] 10-23-2024 09:06-0400 Body weight 66.22 kg Eleazar Vijaya DO Work Phone: [facility] 10-23-2024 09:06-0400 Diastolic blood pressure 78 mm[Hg] Eleazar Vijaya DO Work Phone: [facility] 10-23-2024 09:06-0400 Systolic blood pressure 124 mm[Hg] Eleazar Vijaya DO Work Phone: [facility] 10-16-2024 10:46-0400 Body mass index (BMI) [Ratio] 27.21 kg/m2 Eleazar Vijaya DO Work Phone: [facility] 10-16-2024 10:46-0400 Body weight 65.32 kg Eleazar Vijaya DO Work Phone: [facility] 10-16-2024 10:46-0400 Diastolic blood pressure 64 mm[Hg] Eleazar Vijaya DO Work Phone: [facility] 10-16-2024 10:46-0400 Systolic blood pressure 108 mm[Hg] Eleazar Vijaya DO Work Phone: [facility] 10-02-2024 09:28-0400 Body mass index (BMI) [Ratio] 26.79 kg/m2 Cheryl MARIE Work Phone: [facility] 10-02-2024 09:28-0400 Body weight 64.32 kg Cheryl Amauri PA Work Phone: [facility] 10-02-2024 09:28-0400 Diastolic blood pressure 64 mm[Hg] Cheryl Amauri PA Work Phone: [facility] 10-02-2024 09:28-0400 Systolic blood pressure 102 mm[Hg] Cheryl Floresey PA Work Phone: [facility] 09-13-2024 11:01-0400 Body mass index (BMI) [Ratio] 26.07 kg/m2 Eleazar Vijaya DO Work Phone: [facility] 09-13-2024 11:01-0400 Body weight 62.6 kg Eleazar Vijaya DO Work Phone: [facility] 09-13-2024 11:01-0400 Diastolic blood pressure 56 mm[Hg] Eleazar Vijaya DO Work Phone: [facility] 09-13-2024 11:01-0400 Systolic blood pressure 100 mm[Hg] Eleazar Vijaya DO Work Phone: [facility] 08-20-2024 09:57-0400 Body mass index (BMI) [Ratio] 25.32 kg/m2 Eleazar Vijaya DO Work Phone: [facility] 08-20-2024 09:57-0400 Body weight 60.78 kg Eleazar Vijaya DO Work Phone: [facility] 08-20-2024 09:57-0400 Diastolic blood pressure 70 mm[Hg] Eleazar Vijaya DO Work Phone: [facility] 08-20-2024 09:57-0400 Systolic blood pressure 110 mm[Hg] Eleazar Vijaya DO Work Phone: [facility] 07-23-2024 09:44-0400 Body mass index (BMI) [Ratio] 24.53 kg/m2 Cheryl Amauri PA Work Phone: [facility] 07-23-2024 09:44-0400 Body weight 58.88 kg Cheryl Sargent PA Work Phone: [facility] 07-23-2024 09:44-0400 Diastolic blood pressure 66 mm[Hg] Cheryl Amauri PA Work Phone: [facility] 07-23-2024 09:44-0400 Systolic blood pressure 102 mm[Hg] Cheryl Sargent PA Work Phone: [facility] 06-26-2024 08:38-0500 Body mass index (BMI) [Ratio] 23.96 kg/m2 Eleazar Vijaya DO Work Phone: [facility] 06-26-2024 08:38-0500 Body weight 57.52 kg Eleazar Vijaya DO Work Phone: [facility] 06-26-2024 08:38-0500 Diastolic blood pressure 58 mm[Hg] Eleazar Vijaya DO Work Phone: [facility] 06-26-2024 08:38-0500 Systolic blood pressure 100 mm[Hg] Eleazar Vijaya DO Work Phone: [facility] 05-28-2024 13:28-0500 Body mass index (BMI) [Ratio] 22.58 kg/m2 Cheryl Amauri PA Work Phone: [facility] 05-28-2024 13:28-0500 Body weight 54.2 kg Cheryl Amauri PA Work Phone: [facility] 05-28-2024 13:28-0500 Diastolic blood pressure 60 mm[Hg] Cheryl Sargent PA Work Phone: [facility] 05-28-2024 13:28-0500 Systolic blood pressure 102 mm[Hg] Hceryl Amauri PA Work Phone: [facility] 05-18-2024 10:28-0500 Body height 154.94 cm [facility] 05-18-2024 10:28-0500 Body mass index (BMI) [Ratio] 21.8 kg/m2 [facility] 05-18-2024 10:28-0500 Body temperature 98 [degF] [facility] 05-18-2024 10:28-050 Body weight 52.33 kg [facility] 05-18-2024 10:28-0500 Diastolic blood pressure 66 mm[Hg] [facility] 05-18-2024 10:28-0500 Heart rate 89 /min [facility] 05-18-2024 10:28-0500 SaO2% (BldA) [Mass fraction] 99 % [facility] 05-18-2024 10:28-050 Systolic blood pressure 104 mm[Hg] [facility] 04-30-2024 10:13-0500 Body mass index (BMI) [Ratio] 21.73 kg/m2 Eleazar Vijaya DO Work Phone: [facility] 04-30-2024 10:13-050 Body weight 52.16 kg Eleazar Vijaya DO Work Phone: [facility] 04-30-2024 10:13-0500 Diastolic blood pressure 64 mm[Hg] Eleazar Vijaya DO Work Phone: [facility] 04-30-2024 10:13-0500 Systolic blood pressure 106 mm[Hg] Eleazar Vijaya DO Work Phone: [facility] 03-23-2024 10:10-0500 Body mass index (BMI) [Ratio] 20.86 kg/m2 Nom Nurse [facility] 03-23-2024 10:10-0500 Body weight 50.08 kg [facility] Nurse [facility] 03-23-2024 10:10-0500 Diastolic blood pressure 60 mm[Hg] [facility] Nurse [facility] 03-23-2024 10:10-0500 Systolic blood pressure 110 mm[Hg] [facility] Nurse [facility] 03-14-2024 13:53-0500 Body mass index (BMI) [Ratio] 20.6 kg/m2 Eleazar Vijaya DO Work Phone: [facility] 03-14-2024 13:53-0500 Body weight 49.44 kg Eleazar Vijaya DO Work Phone: [facility] 03-14-2024 13:53-0500 Diastolic blood pressure 72 mm[Hg] Eleazar Vijaya DO Work Phone: [facility] 03-14-2024 13:53-0500 Systolic blood pressure 110 mm[Hg] Eleazar Vijaya DO Work Phone: [facility] 02-08-2024 13:21-0400 Body height 154.9 cm Eleazar Vijaya DO Work Phone: [facility] 02-08-2024 13:21-0400 Body mass index (BMI) [Ratio] 23.05 kg/m2 Eleazar Vijaya DO Work Phone: [facility] 02-08-2024 13:21-0400 Body weight 55.34 kg Eleazar Vijaya DO Work Phone: [facility] 02-08-2024 13:21-0400 Diastolic blood pressure 64 mm[Hg] Eleazar Vijaya DO Work Phone: [facility] 02-08-2024 13:21-0400 Systolic blood pressure 102 mm[Hg] Eleazar Vijaya DO Work Phone: [facility] 02-02-2024 12:39-0400 Body height 154.94 cm [facility] 02-02-2024 12:39-0400 Body mass index (BMI) [Ratio] 22.4 kg/m2 [facility] 02-02-2024 12:39-0400 Body temperature 98.3 [degF] [facility] 02-02-2024 12:39-0400 Body weight 54 kg [facility] 02-02-2024 12:39-0400 Diastolic blood pressure 64 mm[Hg] [facility] 02-02-2024 12:39-0400 Heart rate 82 /min [facility] 02-02-2024 12:39-0400 Respiratory rate 16 /min [facility] 02-02-2024 12:39-0400 SaO2% (BldA) [Mass fraction] 98 % [facility] 02-02-2024 12:39-0400 Systolic blood pressure 108 mm[Hg] [facility] 01-24-2024 11:38-0400 Body height 154.94 cm [facility] 01-24-2024 11:38-0400 Body mass index (BMI) [Ratio] 22.6 kg/m2 [facility] 01-24-2024 11:38-0400 Body temperature 96.1 [degF] [facility] 01-24-2024 11:38-0400 Body weight 54.43 kg [facility] 01-24-2024 11:38-0400 Diastolic blood pressure 60 mm[Hg] [facility] 01-24-2024 11:38-0400 Heart rate 75 /min [facility] 01-24-2024 11:38-0400 SaO2% (BldA) [Mass fraction] 98 % [facility] 01-24-2024 11:38-0400 Systolic blood pressure 114 mm[Hg] [facility] 01-03-2024 11:26-0400 Body height 154.94 cm [facility] 01-03-2024 11:26-0400 Body mass index (BMI) [Ratio] 23.2 kg/m2 [facility] 01-03-2024 11:26-0400 Body temperature 97.8 [degF] [facility] 01-03-2024 11:26-0400 Body weight 55.79 kg [facility] 01-03-2024 11:26-0400 Diastolic blood pressure 68 mm[Hg] [facility] 01-03-2024 11:26-0400 Heart rate 90 /min [facility] 01-03-2024 11:26-0400 SaO2% (BldA) [Mass fraction] 98 % [facility] 01-03-2024 11:26-0400 Systolic blood pressure 110 mm[Hg] [facility] 07-21-2023 10:20-0400 Body height 154.94 cm [facility] 07-21-2023 10:20-0400 Body mass index (BMI) [Ratio] 27.8 kg/m2 [facility] 07-21-2023 10:20-0400 Body weight 66.67 kg [facility] 07-21-2023 10:20-0400 Diastolic blood pressure 78 mm[Hg] [facility] 07-21-2023 10:20-0400 Heart rate 61 /min [facility] 07-21-2023 10:20-0400 SaO2% (BldA) [Mass fraction] 99 % [facility] 07-21-2023 10:20-0400 Systolic blood pressure 112 mm[Hg] [facility] 03-26-2023 11:30-0500 Body height 154.94 cm Jodie Portillo Other [employer] [facility] [employer] Other 03-26-2023 11:30-0500 Body mass index (BMI) [Ratio] 27.96 kg/m2 Jodie Portillo Other [employer] Other 03-26-2023 11:30-0500 Body temperature 98.8 [degF] Jodie Portillo Other [employer] Other 03-26-2023 11:30-0500 Body weight 67.13 kg Jodie Portillo Other [employer] Other 03-26-2023 11:30-0500 Diastolic blood pressure 76 mm[Hg] Jodie Portillo Other [employer] Other 03-26-2023 11:30-0500 Respiratory rate 18 /min Jodie Portillo Other [employer] Other 03-26-2023 11:30-0500 SaO2% (BldA) [Mass fraction] 98 % Jodie Portillo Other [employer] Other 03-26-2023 11:30-0500 Systolic blood pressure 118 mm[Hg] Jodie Portillo Other [employer] Other 10-02-2022 12:25-0400 Body height 154.94 cm Deidra Jimenez Other [employer] Other 10-02-2022 12:25-0400 Body mass index (BMI) [Ratio] 27.43 kg/m2 Deidra Jimenez Other [employer] Other 10-02-2022 12:25-0400 Body temperature 97.7 [degF] Deidra Jimenez Other [employer] Other 10-02-2022 12:25-0400 Body weight 65.86 kg Deidra Jimenez Other [employer] Other 10-02-2022 12:25-0400 Respiratory rate 18 /min Deidra Jimenez Other [employer] Other 10-02-2022 12:25-0400 SaO2% (BldA) [Mass fraction] 97 % Deidra Jimenez Other [employer] Other 05-21-2019 10:42-0500 BMI (Body Mass Index) 23.41 kg/m2 Lyric Pérez [employer] 05-21-2019 10:42-0500 Body Temperature 98.8 [degF] Lyric Rene [facility] [employer] 05-21-2019 10:42-0500 Body weight 58.06 kg Lyric Pérez [employer] 05-21-2019 10:42-0500 BP Diastolic 68 mm[Hg] Lyric Rene impok [facility] 05-21-2019 10:42-0500 BP Systolic 94 mm[Hg] Lyric Rene [place] [employer] [facility] 05-21-2019 10:42-0500 BSA (Body Surface Area) 1.59 m2 [facility] [employer] [facility] 05-21-2019 10:42-0500 Height 157.48 cm [facility] [employer] [facility] 05-21-2019 10:42-0500 Pulse (Heart Rate) 90 /min Lyric Villarreal [facility] [employer] [facility] 05-11-2019 14:48-0500 BMI (Body Mass Index) 22.95 kg/m2 Hima Rene impok [facility] 05-11-2019 14:48-0500 Body Temperature 98.8 [degF] [facility] [employer] [facility] 05-11-2019 14:48-0500 Body weight 56.93 kg [facility]ima [facility]inncjose [facility] [employer] [facility] 05-11-2019 14:48-0500 BP Diastolic 66 mm[Hg] Hima Faustinncjose elias Clemente [employer] [facility] 05-11-2019 14:48-0500 BP Systolic 110 mm[Hg] Hima Clemente [employer] [facility] 05-11-2019 14:48-0500 BSA (Body Surface Area) 1.58 m2 Hima Rene [place] [employer] [facility] 05-11-2019 14:48-0500 Height 157.48 cm Hima Faustinncjose elias Clmeente [employer] [facility] 05-11-2019 14:48-0500 Pulse (Heart Rate) 72 /min Hima Silver Anju lowry [employer] 04-27-2019 15:18-0500 BMI (Body Mass Index) 23.52 kg/m2 Lyric Pérez [employer] 04-27-2019 15:18-0500 Body Temperature 98.9 [degF] Lyricchon [employer] 04-27-2019 15:18-0500 Body weight 56.47 kg Lyric Pérez [employer] 04-27-2019 15:18-0500 BP Diastolic 60 mm[Hg] Lyric Pérez [employer] 04-27-2019 15:18-0500 BP Systolic 112 mm[Hg] Lyric Pérez [employer] 04-27-2019 15:18-0500 BSA (Body Surface Area) 1.56 m2 Lyricchon Pérez [employer] 04-27-2019 15:18-0500 Height 154.94 cm Lyric Pérez [employer] 04-27-2019 15:18-0500 Pulse (Heart Rate) 80 /min Lyricchon Kimhard Cherelle [employer] 04-09-2019 13:38-0500 BMI (Body Mass Index) 22.77 kg/m2 Lyric Pérez [employer] 04-09-2019 13:38-0500 Body Temperature 99.4 [degF] Lyric [employer] 04-09-2019 13:38-0500 Body weight 54.66 kg Lyric Pérez [employer] 04-09-2019 13:38-0500 BP Diastolic 70 mm[Hg] Lyric Pérez [employer] 04-09-2019 13:38-0500 BP Systolic 120 mm[Hg] Lyric Beto [employer] 04-09-2019 13:38-0500 BSA (Body Surface Area) 1.53 m2 Lyric Rene [employer] 04-09-2019 13:38-0500 Height 154.94 cm Lyric [employer] 04-09-2019 13:38-0500 Pulse (Heart Rate) 82 /min Lyric Villarreal [employer] 02-06-2019 16:41-0400 BMI (Body Mass Index) 22.77 kg/m2 Lyric Pérez [employer] 02-06-2019 16:41-0400 Body Temperature 98.8 [degF] Lyric Kimhard Clemente [employer] 02-06-2019 16:41-0400 Body weight 54.66 kg Lyric [employer] 02-06-2019 16:41-0400 BP Diastolic 70 mm[Hg] Lyric [employer] 02-06-2019 16:41-0400 BP Systolic 112 mm[Hg] Lyric Pérez [employer] 02-06-2019 16:41-0400 BSA (Body Surface Area) 1.53 m2 Lyric [employer] 02-06-2019 16:41-0400 Height 154.94 cm Lyric [employer] 02-06-2019 16:41-0400 Pulse (Heart Rate) 72 /min Lyric Villarreal [employer] 10-31-2018 16:58-0400 BMI (Body Mass Index) 23.43 kg/m2 Hima Adrianne [employer] 10-31-2018 16:58-0400 Body weight 56.25 kg Hima Clemente [employer] 10-31-2018 16:58-0400 BP Diastolic 60 mm[Hg] Hima Camacho [employer] 10-31-2018 16:58-0400 BP Systolic 112 mm[Hg] Hima Camacho [employer] 10-31-2018 16:58-0400 BSA (Body Surface Area) 1.56 m2 Hima Rene [employer] 10-31-2018 16:58-0400 Height 154.94 cm Hima Clemente [employer] 10-31-2018 16:58-0400 Pulse (Heart Rate) 72 /min Hima ma [employer] 10-31-2018 16:58-0400 Weight 56.25 kg Hima Clemente [employer] 08-28-2018 15:49-0400 BMI (Body Mass Index) 22.67 kg/m2 Hima Rene [employer] 08-28-2018 15:49-0400 Body Temperature 98.7 [degF] Hima chawla [employer] 08-28-2018 15:49-0400 Body weight 54.43 kg Hima Clemente [employer] 08-28-2018 15:49-0400 BP Diastolic 60 mm[Hg] Hima Clemente [employer] 08-28-2018 15:49-0400 BP Systolic 120 mm[Hg] Hima Clemente [employer] 08-28-2018 15:49-0400 BSA (Body Surface Area) 1.53 m2 Hima Rene [employer] 08-28-2018 15:49-0400 Height 154.94 cm Hima Camacho [employer] 08-28-2018 15:49-0400 Pulse (Heart Rate) 66 /min Hima Cardoza [employer] 08-28-2018 15:49-0400 Weight 54.43 kg Hima Camacho [employer] 02-09-2018 12:10-0400 BMI (Body Mass Index) 23.78 kg/m2 Hima Rene [employer] 02-09-2018 12:10-0400 Body Temperature 98.1 [degF] Hima Andrade [employer] 02-09-2018 12:10-0400 Body weight 58.97 kg Hima Clemente [employer] 02-09-2018 12:10-0400 BP Diastolic 80 mm[Hg] Hima Clemente [employer] 02-09-2018 12:10-0400 BP Systolic 104 mm[Hg] Hima Clemente [employer] 02-09-2018 12:10-0400 BSA (Body Surface Area) 1.61 m2 Hima Rene [employer] 02-09-2018 12:10-0400 Height 157.48 cm Hima Clemente [employer] 02-09-2018 12:10-0400 Pulse (Heart Rate) 64 /min Hima Cardoza [employer] 02-09-2018 12:10-0400 Weight 58.97 kg Hima Clemente [employer] 01-11-2018 15:19-0400 BMI (Body Mass Index) 23.32 kg/m2 Hima Rene [employer] 01-11-2018 15:19-0400 Body weight 57.83 kg Hima Clemente [employer] 01-11-2018 15:19-0400 BP Diastolic 68 mm[Hg] Hima Clemente [employer] 01-11-2018 15:19-0400 BP Systolic 106 mm[Hg] Hima Clemente [employer] 01-11-2018 15:19-0400 BSA (Body Surface Area) 1.59 m2 Hima Rene [employer] 01-11-2018 15:19-0400 Height 157.48 cm Hima Clemente [employer] 01-11-2018 15:19-0400 Pulse (Heart Rate) 76 /min Hima ma [employer] 01-11-2018 15:19-0400 Weight 57.83 kg Hima Clemente [employer] 08-01-2017 09:57-0400 BMI (Body Mass Index) 23.59 kg/m2 Hima Rene [employer] 08-01-2017 09:57-0400 Body weight 58.51 kg Hima Clemente [employer] 08-01-2017 09:57-0400 BP Diastolic 60 mm[Hg] Hima Clemente [employer] 08-01-2017 09:57-0400 BP Systolic 94 mm[Hg] Hima Clemente [employer] 08-01-2017 09:57-0400 BSA (Body Surface Area) 1.6 m2 Hima Rene [employer] 08-01-2017 09:57-0400 Height 157.48 cm Hima Clemente [employer] 08-01-2017 09:57-0400 Pulse (Heart Rate) 80 /min Hima Cardoza [employer] 08-01-2017 09:57-0400 Weight 58.51 kg Hima Clemente [employer] 01-13-2017 12:02-0400 BMI (Body Mass Index) 22.59 kg/m2 Hima Rene [employer] 01-13-2017 12:02-0400 Body weight 56.02 kg Hima Clemente [employer] 01-13-2017 12:02-0400 BP Diastolic 76 mm[Hg] Hima Clemente [employer] 01-13-2017 12:02-0400 BP Systolic 122 mm[Hg] Hima Clemente [employer] 01-13-2017 12:02-0400 BSA (Body Surface Area) 1.57 m2 Hima Rene [employer] 01-13-2017 12:02-0400 Height 157.48 cm Hima Clemente [employer] 01-13-2017 12:02-0400 Pulse (Heart Rate) 72 /min Hima Cardoza [employer] 01-13-2017 12:02-0400 Weight 56.02 kg Hima Clemente [employer] 10-29-2016 16:57-0400 BMI (Body Mass Index) 22.13 kg/m2 Hima Rene [employer] 10-29-2016 16:57-0400 Body weight 54.89 kg Hima Clemente [employer] 10-29-2016 16:57-0400 BP Diastolic 60 mm[Hg] Hima Clemente [employer] 10-29-2016 16:57-0400 BP Systolic 104 mm[Hg] Hima Clemente [employer] 10-29-2016 16:57-0400 BSA (Body Surface Area) 1.55 m2 Hima Rene [employer] 10-29-2016 16:57-0400 Height 157.48 cm Hima Clemente [employer] 10-29-2016 16:57-0400 Pulse (Heart Rate) 68 /min Hima ma [employer] 10-29-2016 16:57-0400 Weight 54.89 kg Hima Clemente [employer] 01-28-2016 17:46-0400 BMI (Body Mass Index) 21.67 kg/m2 Hima Rene [employer] 01-28-2016 17:46-0400 Body weight 53.75 kg Hima Clemente [employer] 01-28-2016 17:46-0400 BP Diastolic 64 mm[Hg] Hima Clemente [employer] 01-28-2016 17:46-0400 BP Systolic 94 mm[Hg] Hima Clemente [employer] 01-28-2016 17:46-0400 BSA (Body Surface Area) 1.53 m2 Hima Rene [employer] 01-28-2016 17:46-0400 Height 157.48 cm Hima Clemente [employer] 01-28-2016 17:46-0400 Pulse (Heart Rate) 64 /min Hima Cardoza [employer] 01-28-2016 17:46-0400 Weight 53.75 kg Hima Clemente [employer] 05-30-2015 16:50-0500 BMI (Body Mass Index) 21.22 kg/m2 Hima Rene [employer] 05-30-2015 16:50-0500 Body Temperature 98 [degF] Hima Andrade [employer] 05-30-2015 16:50-0500 Body weight 52.62 kg Hima Clemente [employer] 05-30-2015 16:50-0500 BP Diastolic 64 mm[Hg] Hima Clemente [employer] 05-30-2015 16:50-0500 BP Systolic 90 mm[Hg] Hima Clemente [employer] 05-30-2015 16:50-0500 BSA (Body Surface Area) 1.52 m2 Hima Rene [employer] 05-30-2015 16:50-0500 Height 157.48 cm Hima Clemente [employer] 05-30-2015 16:50-0500 Pulse (Heart Rate) 92 /min Hima Cardoza [employer] 05-30-2015 16:50-0500 Weight 52.62 kg Hima Clemente [employer] 04-08-2015 16:01-0500 BMI (Body Mass Index) 21.28 kg/m2 Hima Rene [employer] 04-08-2015 16:01-0500 Body Temperature 98.4 [degF] Hima Villarreal [employer] 04-08-2015 16:01-0500 Body weight 51.94 kg Hima Clemente [employer] 04-08-2015 16:01-0500 BP Diastolic 84 mm[Hg] Hima Clemente [employer] 04-08-2015 16:01-0500 BP Systolic 118 mm[Hg] Hima Clemente [employer] 04-08-2015 16:01-0500 BSA (Body Surface Area) 1.5 m2 Hima Rene [employer] 04-08-2015 16:01-0500 Height 156.21 cm Hima [facility] 04-08-2015 16:01-0500 Pulse (Heart Rate) 72 /min Hima Cardoza [facility] [employer] 04-08-2015 16:01-0500 Weight 51.94 kg Hima Clemente [employer] Encounters Encounter Date Encounter Type Care Provider Facility Start: 10-23-2024 End: 10-23-2024 Bamboo flowsheet Eleazar Vijaya DO Work Phone: [facility] Start: 10-23-2024 End: 10-23-2024 Bamboo flowsheet Eleazar Vijaya DO Work Phone: [facility] Start: 10-23-2024 End: 10-23-2024 Clinisync Result Encounter Eleazar Vijaya DO Work Phone: [facility] External Department Unsolicited Start: 10-23-2024 End: 10-23-2024 Office outpatient visit 15 minutes Eleazar Vijaya DO Work Phone: [facility] Comment on above: Third trimester preg chepe ([facility]); 37 weeks gestation of ([facility] Start: 10-23-2024 End: 10-23-2024 ambulatory ELEAZAR VIJAYA Not Available Start: 10-16-2024 End: 10-16-2024 Bamboo flowsheet Eleazar [...] Work Phone: [facility] Unsolicited Start: 10-09-2024 End: 10-09-2024 Clinisync Result Encounter Eleazar Vijaya DO Work Phone: [facility] Unsolicited Start: 10-09-2024 End: 10-09-2024 Clinisync Result Encounter Eleazar Vijaya DO Work [...] End: 09-24-2024 Clinisync Result Encounter Gaye Gurpreet PEDIATRIC NEUROLOGIST Work Phone: [facility] External [facility] Unsolicited Start: 09-24-2024 End: 09-24-2024 Clinisync Result Encounter Gaye Gurpreet PEDIATRIC NEUROLOGIST Work Phone: [facility] External Department Unsolicited Start: 09-19-2024 End: 09-19-2024 Clinisync Result Encounter Gaye Gurpreet PEDIATRIC NEUROLOGIST Work Phone: [facility] External Department Unsolicited Start: 09-19-2024 End: 09-19-2024 Clinisync Result Encounter Gaye Gurpreet PEDIATRIC NEUROLOGIST Work Phone: [facility] External Department Unsolicited Start: [...] 08-20-2024 End: 08-20-2024 Clinisync Result Encounter Gaye Vázquez NP Work Phone: [facility] External Department Unsolicited Start: 08-20-2024 End: 08-20-2024 Office outpatient visit 15 minutes Eleazar Vijaya DO Work Phone: [facility] Comment on above: Third [...] Not Available Start: 05-18-2024 End: 05-18-2024 ambulatory [facility] Work Phone: Start: 05-18-2024 End: 05-18-2024 Patient encounter procedure [facility] Work Phone: Start: 04-30-2024 End: 04-30-2024 [...] 04-18-2024 End: 04-18-2024 ambulatory Susana Alonzo PA-C Facility:[facility] Start: 04-16-2024 End: 04-16-2024 Clinisync Result Encounter Eleazar Vijaya DO Work Phone: [facility] Unsolicited Start: 04-16-2024 End: 04-16-2024 Clinisync Result Encounter Eleazar Vijaya DO Work Phone: [facility] Department Unsolicited Start: 04-16-2024 Non-patient / Non-visit [facility] Phys[facility] Work Phone: Start: 04-13-2024 End: [...] Not Available Start: 03-19-2024 Non-patient / Non-visit [facility] Physician [facility] Work Phone: Start: 03-17-2024 Non-patient / Non-visit [facility] Work Phone: Start: 03-14-2024 End: [...] Department Unsolicited Start: 03-08-2024 Non-patient / Non-visit [facility] Work Phone: Start: 03-07-2024 End: 03-07-2024 ambulatory Ana Maryse Troy BRIZUELA-[place]USTIN [facility] Start: 03-02-2024 Non-patient / Non-visit [facility] Work Phone: Start: 02-29-2024 Non-patient / Non-visit [facility] Work Phone: Start: 02-28-2024 Non-patient / Non-visit [facility] Work Phone: Start: 02-28-2024 End: 02-28-2024 Phys/qhp telephone evaluation 5-10 min Eleazar Vijaya DO Work Phone: [facility] Comment on above: Early stage of pregn ana Start: 02-27-2024 Non-patient / Non-visit [facility] Work Phone: Start: 02-21-2024 Non-patient / Non-visit [facility] Work Phone: Start: 02-08-2024 End: [...] Available Start: 02-02-2024 End: 02-02-2024 Departed Referred MANAGER SUSTAINABILITY Jodie Portillo Work Phone: [facility] [place] Work Phone: Start: 02-02-2024 End: 02-02-2024 ambulatory Jodie Portillo [facility] Work Phone: Start: 02-02-2024 End: 02-02-2024 Patient encounter procedure [facility] Work Phone: Start: 01-24-2024 End: 01-24-2024 ambulatory [facility] Work Phone: Start: 01-24-2024 End: 01-24-2024 Patient encounter procedure [facility] Work Phone: Start: 01-24-2024 End: 01-24-2024 ambulatory Mike Jones Facility:[facility] Start: 01-19-2024 Non-patient / Non-visit [facility] Work Phone: Start: 01-03-2024 End: 01-03-2024 ambulatory [facility] Work Phone: Start: 01-03-2024 End: 01-03-2024 Patient encounter procedure [facility] Work Phone: Start: 08-10-2023 End: 08-10-2023 ambulatory Ana Simmons MANAGER SUSTAINABILITY-PRINCIPAL NETWORK ENGINEER Facility: [facility] Start: 07-21-2023 End: 07-21-2023 ambulatory [facility] Work Phone: Start: 07-21-2023 End: 07-21-2023 Patient encounter procedure [facility] Work Phone: Start: 06-28-2023 ambulatory Amara Cheung PA-C Facility:[facility] Start: 06-27-2023 End: 06-27-2023 ambulatory Susana Alonzo PA-C Facility:[facility] Start: 06-22-2023 End: 06-22-2023 ambulatory Ana Marysenicholas Simmons APRN-[place]IN Facility: [facility] Start: 03-26-2023 End: 03-26-2023 ambulatory Jodie Portillo Other [employer] Other Start: 03-26-2023 Office outpatient vi sit 15 minutes Jodie Portillo [facility] Start: 10-02-2022 End: 10-02-2022 ambulatory Deidra Castlemond Other [employer] Other Start: 10-02-2022 Office outpatient ne w 20 minutes Deidra Barbara [facility] Start: 05-21-2019 Office outpatient vi sit 15 minutes Lyric Pérez Other [facility] Start: 05-11-2019 [facility] Other [facility] Start: 05-11-2019 Office outpatient vi sit 15 minutes Lyric Pérez Other [facility] Start: 04-27-2019 Office outpatient vi sit 15 minutes Lyric Pérez Other [facility] Start: 04-09-2019 Office outpatient vi sit 15 minutes Lyric Pérez Other [facility] Start: 02-06-2019 Office outpatient vi sit 15 minutes Lyric Pérez Other [facility] Start: 10-31-2018 Routine general medi brad examination at a health care facility [facility] Start: 10-31-2018 [facility] Start: 10-31-2018 Office outpatient vi sit 15 minutes Cheryl Dobbins Other [facility] Office Start: 08-28-2018 [facility] Other [facility] Office Start: 08-28-2018 Office outpatient vi sit 15 minutes Cheryl Nixon Armindavalerio Other [facility] Office Start: 04-20-2018 End: 04-20-2018 Emergency department patient visit [facility] Start: 03-08-2018 Lab Enrique Sanchezbenjaminu yossi Other [facility] Office Start: 03-08-2018 Office outpatient vi sit 15 minutes Vinita José Luis Other [facility] Office Start: 02-09-2018 Office outpatient vi sit 15 minutes Lyric Pérez Other [facility] Office Start: 02-03-2018 End: 02-03-2018 Lab Enrique José Luis Other [facility] Office Start: 01-30-2018 Lab Enrique Sanchezbenjaminu yossi Other [facility] Office Start: 01-30-2018 Office outpatient vi sit 15 minutes Vinita José Luis Other [facility] Office Start: 01-11-2018 Office outpatient vi sit 15 minutes Lyric Pérez Other [facility] Office Start: 12-28-2017 Office outpatient vi sit 15 minutes [place] José Luis Other [facility] Office Start: 12-28-2017 Lab Enrique Sanchezsusy yossi Other [facility] Office Start: 08-01-2017 Office outpatient vi sit 25 minutes Lyric Pérez Other [facility] Office Start: 07-28-2017 End: 07-28-2017 Emergency department patient visit [facility] Start: 01-13-2017 Office outpatient vi sit 15 minutes Rachel Ly Other [facility] Office Start: 10-29-2016 Office outpatient vi sit 15 minutes Rachel Ly Other [facility] Office Start: 06-07-2016 Office outpatient vi sit 15 minutes Enrique José Luis Other [facility] Office Start: 04-23-2016 Office outpatient vi sit 15 minutes Enrique José Luis Other [facility] Office Start: 03-19-2016 Office outpatient vi sit 15 minutes Enrique José Luis Other [facility] Office Start: 02-12-2016 Office outpatient ne w 20 minutes Enrique José Luis Other [facility] Office Start: 01-28-2016 Office outpatient vi sit 15 minutes Lyric Pérez Other [facility] Office Start: 05-30-2015 Office outpatient vi sit 15 minutes Lyric Pérez Other [facility] Office Start: 04-08-2015 Office outpatient ne w 20 minutes Lyric Pérez Other [facility] Office Procedures Date Procedure Procedure Detail Performing Clinician Start: 10-23-2024 US OB BPP W NON-STRESS Eleazar Vijaya DO Work Phone: Start: 10-23-2024 Urnls dip stick/tabl et rgnt non-auto w/o micrscp Eleazar Vijaya DO Work Phone: Start: 10-16-2024 US OB BPP W NON-STRESS Eleazar Vijaya DO Work Phone: Start: 10-16-2024 Urnls dip stick/tabl et rgnt non-auto w/o micrscp Eleazar Vijaya DO Work Phone: Start: 10-14-2024 AMNISURE Eleazar Fazi o DO Work Phone: Start: 10-14-2024 [facility] UA (CLEAN/CATCH) HAND LEATHER TRIMMER/MICRO IF IND. Eleazar Vijaya DO Work Phone: Start: 10-09-2024 US OB BPP W NON-STRESS Eleazar Vijaya DO Work Phone: Start: 10-02-2024 US OB BPP W NON-STRESS Eleazar Vijaya DO Work Phone: Start: 09-25-2024 US OB BPP W NON-STRESS Eleazar Vijaya DO Work Phone: Start: 09-24-2024 ALL CBC WITH AUTO DIFF Gaye Vázquez PEDIATRIC NEUROLOGIST Work Phone: Start: 09-19-2024 [facility] CMP (CMP) (FOR R [facility] ON LICENSE OF [facility] USE) Gaye Vázquez PEDIATRIC NEUROLOGIST Work Phone: Start: 09-18-2024 US OB GROWTH Eleazar Fazi o DO Work Phone: Start: 09-13-2024 Urnls dip stick/tabl et rgnt non-auto w/o micrscp Eleazar Vijaya DO Work Phone: Start: 08-20-2024 ALL CBC WITH AUTO DIFF Gaye Gurpreet PEDIATRIC NEUROLOGIST Work Phone: Start: 08-20-2024 Urnls dip stick/tabl [...] [facility] Silver Start: 05-11-2019 EBV Complete Series [place] adalgisa Pérez Start: 04-27-2019 Doc meds verified [...] meds verified w/ pt or re [facility] Ellington Start: 08-28-2018 Urnls dip stick/tabl et rgnt auto w/o microscopy [facility] Start: 04-20-2018 Radex spine lumbosac ral 2/3 views TALON CARONE Start: 04-20-2018 Basic metabolic pane l calcium total TALON CARONE Start: 04-20-2018 Blood count complete automated TALON CARONE Start: 04-20-2018 Microscopic urinalysis TALON CARONE Start: 04-20-2018 Urine test visual color cmprsn meths TALON CARONE Start: 04-20-2018 URINE RT REFLEX TO CULTURE TALON CARONE Start: 03-08-2018 Doc meds verified w/ pt or re [facility] Ellington Start: 03-08-2018 Urine test visual color cmprsn meths [facility] Adrianne Start: 02-09-2018 Doc meds verified w/ pt or re [facility]ington Start: 02-03-2018 Urine test visual color cmprsn meths [facility] Adrianne Start: 01-30-2018 Doc meds verified w/ pt or re [facility] Adrianne Start: 01-30-2018 Urine test visual color cmprsn meths [facility] Adrianne Start: 01-11-2018 Doc meds verified w/ pt or re [facility] Start: 12-28-2017 Doc meds verified w/ pt or re [facility] Adrianne Start: 12-28-2017 Gonadotropin chorion ic qualitative [facility] Adrianne Start: 12-28-2017 Hepatic function panel [facility] Ellington Start: 12-28-2017 Lipid panel Hima Ri cketts [...] Start: 06-07-2016 Gonadotropin chorion ic qualitative [facility] Start: 06-07-2016 Hepatic function panel [facility]ington Start: 04-23-2016 Urine test visual color cmprsn [...] a Vaccine (Season Ended) [facility] Start: 10-29-2024 End: 10-29-2024 Patient encounter procedure 10/29/2024 8:20 AM EDT Routine [facility] [address] [place] [place] [address] Eleazar Lilly DO [address] [place] [address] [facility] Start: 10-23-2024 End: 10-23-2024 Patient encounter procedure [facility] Comment on above: Arrived Start: 10-16-2024 End: 10-16-2025 CULTURE, GROUP B [...] AM EDT Routine [facility] [address] [place] [address] Cheryl Baugh, PA [address] [place] [address] [facility] Start: 09-13-2024 End: 01-14-2025 US for US OB follow up transabdominal approach Imaging Routine size inconsistent with dates Expected: 09/13/2024, Expires: 01/14/2025 [facility] Work Phone: Comment on above: Expected: 09/13/2024 , Expires: 01/14/2025 Start: 09-13-2024 End: 09-13-2024 Patient encounter procedure 09/13/2024 10:30 AM EDT Routine [facility] [address] [place] [phone] Eleazar Lilly, DO [address] [place] [address] Arrived [facility] Comment on above: Arrived Start: 09-10-2024 End: 09-10-2024 Patient encounter procedure 09/10/2024 10:40 AM EDT Routine [facility] [address] [place] [place] [phone] Eleazar Lilly, DO [address] [place] [address] [facility] Start: 08-20-2024 End: 08-20-2024 Patient encounter procedure [facility] Comment on above: Arrived Start: 07-23-2024 End: 07-23-2025 CBC panel - Blood by Automated count CBC Lab Routine Diabetes mellitus screening Expected: 07/23/2024 (Approximate), Expires: 07/23/2025 [facility] Work Phone: Comment on [...] AM EDT Routine [facility] [address] [place] [place] [phone] Cheryl Baugh PA [address] [place] [address] [facility] Start: 07-23-2024 End: 07-23-2024 Professional / ancillary services management 07/23/2024 9:00 AM EDT Ancillary Procedure [facility] [address] [place] [phone] [facility] Start: 06-26-2024 End: 06-26-2025 US for US OB limited 1+ fetuses Imaging Routine Low-lying placenta Expected: 06/26/2024, Expires: 06/26/2025 [facility] Work Phone: Comment on above: Expected: 06/26/2024 , Expires: 06/26/2025 Start: 06-26-2024 End: 06-26-2024 Patient encounter procedure [facility] Comment on above: Arrived Start: 05-28-2024 End: 11-25-2024 Alpha fetoprotein, maternal Alpha fetoprotein, maternal Lab Routine Second trimester Expected: 05/28/2024 (Approximate), Expires: 11/25/2024 [facility] Comment on above: Expected: 05/28/2024 (Approximate), Expires: 11/25/2024 Start: 05-28-2024 End: 05-28-2025 US for US OB 14+ weeks anatomy scan Imaging Routine Screening, , for anatomic survey Expected: 05/28/2024, Expires: 05/28/2025 [facility] Work Phone: Comment on above: Expected: 05/28/2024 , Expires: 05/28/2025 Start: 05-28-2024 End: 01-20-2025 Patient encounter procedure 05/28/2024 1:10 PM EST Routine [facility] [address] [place] [place] [phone] Cheryl Baugh PA [address] [place] [address] Arrived [facility] Comment on above: Arrived Start: 04-30-2024 End: 04-30-2024 Patient encounter procedure 04/30/2024 10:10 AM EST Routine [facility] [address] [place], [place] [address] [place] [phone] Eleazar Lilly, DO [address] [place] [address] 12 weeks gestation of ; Second trimester [facility] Comment on above: 12 weeks gestation o f ; Second trimester Start: 04-23-2024 End: 04-23-2024 Patient encounter procedure 04/23/2024 10:50 AM EST Routine [facility] [address] [place] [address] [place] [phone] Eleazar Lilly, DO [address] [place] [address] [facility] Start: 03-23-2024 End: 03-23-2025 [...] Initial [facility] [address] [place] [address] [facility] Start: 03-23-2024 End: 03-23-2024 Professional / ancillary services management 03/23/2024 9:30 AM EST Ancillary Procedure [facility] [address] [place] [address] [facility] Start: 03-14-2024 End: 03-14-2024 Patient encounter procedure 03/14/2024 1:30 PM EST Office Visit [facility] [address] [place] [phone] Eleazar Lilly, DO [address] [place] [address] Arrived [facility] Comment on above: Arrived Start: 02-28-2024 End: 02-28-2024 Patient encounter procedure 02/28/2024 8:10 AM EDT Office Visit [facility] [address] [place] [phone] Eleazar Lilly, DO [address] [place] [address] [facility] Start: 02-08-2024 End: 02-07-2025 SURESWAB(R) ADVANCED VAGINITIS PLUS, TMA SURESWAB(R) ADVANCED VAGINITIS PLUS, TMA Pathology and Cytology Routine Pelvic pain in female Expected: 02/08/2024 (Approximate), Expires: 02/07/2025 [facility] Work Phone: Comment on above: Expected: 02/08/2024 (Approximate), Expires: 02/07/2025 Start: 02-08-2024 End: 02-07-2025 US for US PELVIS-TRANSVAG IF INDICATED Imaging Routine Pelvic pain in female Expected: 02/08/2024 (Approximate), Expires: 02/07/2025 [facility] Comment on above: Expected: 02/08/2024 (Approximate), Expires: 02/07/2025 Start: 02-08-2024 End: 02-08-2024 Patient encounter procedure 02/08/2024 1:20 PM EDT [facility] [address] [place] [place] [address] Eleazar Lilly, [address] [place] [address] Arrived [facility] Comment on above: Arrived Start: 02-02-2024 [facility] Start: 01-08-2024 Influenza vaccination Influenza Vacc ine (#1) [facility] Start: 05-11-2019 Blood count complete auto&auto difrntl wbc CBC w diff [employer] Start: 05-11-2019 TSH Qn TSH [employer] Start: 11-02-2018 Blood count complete automated CBC & PLATELET COUNT; AUTOMATED [employer] Start: 11-02-2018 Comprehensive metabo lic panel Comprehensive metabolic panel [employer] Start: 11-02-2018 Gonadotropin chorion ic qualitative SERUM [employer] Start: 11-02-2018 Hemoglobin A1c/Hemoglobin.total mass fraction (Bld) Hgb A1c [employer] Start: 11-02-2018 Lipid panel Lipid panel [employer] Start: 11-02-2018 Thyrotropin Qn TSH (thyroid s timulating hormone) [employer] Start: 11-02-2018 Urnls dip stick/tabl et rgnt auto w/o microscopy UA [employer] Atopobium vaginae DN A [Presence] in Vaginal fluid by ELDON with probe detection [facility] Bacteria identified in Urine by Culture Urine culture Microbiology Routine Missed menses Ordered: 03/23/2024 [facility] Comment on above: Ordered: 03/23/2024 Bacterial vaginosis associated bacterium 2 DNA [Presence] in Vaginal fluid by ELDON with probe detection [facility] CBC W Auto Different ial panel - Blood CBC and differential Lab Routine Missed menses , unspecified gestational age Ordered: 03/23/2024 [facility] Comment on above: Ordered: 03/23/2024 CBC W Auto Different ial panel - Blood CBC and differential Lab Routine Third trimester Ordered: 08/20/2024 [facility] Comment on above: Ordered: 08/20/2024 CHLAMYDIA TRACHOMATI S (GENITO/STI) CHLAMYDIA TRACHOMATIS (GENITO/STI) Lab Routine Pelvic pain in female Ordered: 02/08/2024 [facility] Comment on above: Ordered: 02/08/2024 CHLAMYDIA TRACHOMATI S (GENITO/STI) CHLAMYDIA TRACHOMATIS (GENITO/STI) Lab Routine STD exposure Ordered: 05/28/2024 [facility] Comment on above: Ordered: 05/28/2024 Cytology Cervical or vaginal smear or scraping study Pap Smear Pathology and Cytology Routine Well woman exam with routine gynecological exam Ordered: 05/28/2024 [facility] Comment on above: Ordered: 05/28/2024 Estradiol (E2) [Mass/volume] in Serum or Plasma [facility] Estrogen [Mass/volum e] in Serum or Plasma [facility] Hemoglobin A1c/Hemoglobin.total in Blood Hemoglobin A1c Lab Routine Missed menses , unspecified gestational age Ordered: 03/23/2024 [facility] Comment on above: Ordered: 03/23/2024 Hemoglobin A1c/Hemoglobin.total in Blood Hemoglobin A1c Lab Routine Third trimester Ordered: 08/20/2024 [facility] Work Phone: Comment on above: Ordered: 08/20/2024 Hepatitis B virus surface Ag [Presence] in Serum or Plasma by Immunoassay Hepatitis B surface antigen Lab Routine Missed menses , unspecified gestational age Ordered: 03/23/2024 [facility] Comment on above: Ordered: 03/23/2024 Hepatitis C virus Ab [Presence] in Serum or Plasma by Immunoassay Hepatitis C antibody Lab Routine Missed menses , unspecified gestational age Ordered: 03/23/2024 [facility] Comment on above: Ordered: 03/23/2024 HIV-1/HIV-2 antigen/antibody combination immunoassay HIV-1 and HIV-2 antibodies Lab Routine Missed menses , unspecified gestational age Ordered: 03/23/2024 [facility] Comment on above: Ordered: 03/23/2024 Holter monitor study [facility] Lutropin [Units/volu me] in Serum or Plasma [facility] Megasphaera sp type 1 DNA [Presence] in Vaginal fluid by ELDON with probe detection [facility] Neisseria gonorrhoea e DNA [Presence] in Unspecified specimen by ELDON with probe detection Neisseria gonorrhea DNA probe, direct Lab Routine Pelvic pain in female Ordered: 02/08/2024 [facility] Comment on above: Ordered: 02/08/2024 Neisseria gonorrhoea e DNA [Presence] in Unspecified specimen by ELDON with probe detection Neisseria gonorrhea DNA probe, direct Lab Routine STD exposure Ordered: 05/28/2024 [facility] Comment on above: Ordered: 05/28/2024 Progesterone [Mass/volume] in Serum or Plasma [facility] Reagin Ab [Presence] in Serum by RPR RPR Lab Routine Missed menses , unspecified gestational age Ordered: 03/23/2024 [facility] Comment on above: Ordered: 03/23/2024 Rubella antibody, IgG Rubella an tibody, IgG Lab Routine Missed menses , unspecified gestational age Ordered: 03/23/2024 [facility] Comment on above: Ordered: 03/23/2024 SURESWAB(R) ADVANCED VAGINITIS PLUS, TMA SURESWAB(R) ADVANCED VAGINITIS PLUS, TMA Pathology and Cytology Routine Vaginal discharge Ordered: 05/28/2024 [facility] Comment on above: Ordered: 05/28/2024 XR Cervical spine 5 Views [facility] XR Thoracic and lumb ar spine Views for scoliosis [facility] Payers Date Payer Category Payer Self-pay 2022 Medicaid [id number] 2022 Medicaid [id number] 2. [id number] 2022 Unknown 2015 Unknown [id number] 2.16 .840.1.782886.3.441 2014 Unknown [id number] 1996 Unknown [id number] 2.16.8 40.1.027402.3.579.2.173 1996 Unknown [id number] 2.16.8 40.1.136267.3.579.2.173 1996 Unknown [id number] 2.16. 840.1.501427.3.579.2.196 1996 Unknown [id number] 2.16. 840.1.093342.3.579.2.196 1996 Unknown [id number] 2.16. 840.1.373195.3.579.2.196 1996 Unknown [id number] 2.16. 840.1.908137.3.579.2.196 1996 Unknown [id number] 2.16. 840.1.790079.3.579.2.196 1996 Unknown [id number] 2.16. 840.1.103502.3.579.2.196 1996 Unknown [id number] 2.16. 840.1.705265.3.579.2.196 1996 Unknown [id number] 2.16.8 40.1.712945.3.579.2.1259 1996 Unknown [id number] 2.16.8 40.1.738650.3.579.2.9 1996 Unknown [id number] 2.16.84 0.1.802560.3.579.2.1258 1996 Unknown [id number] 2.16.84 0.1.755188.3.579.2.1258 1996 Unknown [id number] 2.16.84 0.1.923798.3.579.2.1258 1996 Unknown [id number] 2.16.84 0.1.747128.3.579.2.1258 1996 Unknown [id number] 2.16.84 0.1.059699.3.579.2.1258 1996 Unknown [id number] 2.16.84 0.1.349924.3.579.2.1258 1996 Unknown [id number] 2.16.84 0.1.754495.3.579.2.1258 1996 Unknown [id number] 2.16.84 0.1.822468.3.579.2.1258 1996 Unknown [id number] 2.16.84 0.1.830262.3.579.2.1258 1996 Unknown [id number] 2.16.84 0.1.501085.3.579.2.1258 1996 Unknown [id number] 2.16.84 0.1.180817.3.579.2.1258 Unknown [id number] 2.16.8 40.1.386689.3.579.2.531 Social History Date Type Detail Facility Start: Unknown if ever smoked [employer] Start: 1 can pop/day [employer] Sex Assigned At [employer] Other Start: 07-21-2023 End: 02-02-2024 Tobacco smoking status NHIS Never smoked tobacco (finding) [facility] Start: 1995 Sex Assigned At Female F [facility] Tobacco smoking status VAIS Tobacco smoking consumption unknown [facility] Start: 1995 Sex assigned at Not on file [facility] Start: 02-17-2024 [facility] Start: 05-18-2024 Sex Female (finding) [facility] Clinical Notes 10-02-2022 to 10-23-2024 Yaneli Xavier LPN - 10/23/2024 9:00 AM EDTYaneli Xavier LPN - 10/16/2024 10:10 AM CYNTHIA Hurd - 10/02/2024 9:10 AM EDTMjulio Cormier MA - 09/13/2024 10:30 AM EDT Note Date & Type Note Facility 10-23-2024 History of Present illness Narrative Reason for [...] Diagnosis Date Noted Nausea and vomiting in ([facility]) 04/16/2024 12 weeks gestation of ([facility]) 04/30/2024 Second trimester ([facility]) 04/30/2024 Resolved Ambulatory Problems Diagnosis Date Noted [...] nursing note reviewed. Exam conducted with a white sugar supervisor present. Vitals: Estimated body mass index is 27.59 kg/m as calculated from the following: Height as of 02/08/24: 5' 1 . Weight as of this encounter: 146 lb. BP: 124/78 Patient's last menstrual period was 01/23/2024. ASSESSMENT & PLAN ICD-10-CM 1. Third trimester ([facility]) Z34.93 POCT urinalysis dipstick manually resulted 2. 37 weeks gestation of ([facility]) Z3A.37 Return OB: Patient presents today for [...] Eleazar Lilly DO documented in this encounter [facility] 10-16-2024 History of Present illness Narrative Reason [...] nursing note reviewed. Exam conducted with a white sugar supervisor present. Vitals: Estimated body mass index is [...] Eleazar Lilly DO documented in this encounter [facility] 10-02-2024 History of Present illness Narrative Reason [...] CYNTHIA Del Cid documented in this encounter [facility] 09-13-2024 History of Present illness Narrative Reason [...] Eleazar Lilly DO documented in this encounter [facility] 08-20-2024 History of Present illness Narrative Reason [...] nursing note reviewed. Exam conducted with a white sugar supervisor present. Vitals: Estimated body mass index is [...] of: LYNN Duran documented in this encounter [facility] 07-23-2024 History of Present illness Narrative Reason [...] CYNTHIA Del Cid documented in this encounter [facility] 06-26-2024 History of Present illness Narrative Reason [...] nursing note reviewed. Exam conducted with a white sugar supervisor present. Vitals: Estimated body mass index is [...] Eleazar Lilly DO documented in this encounter [facility] 05-28-2024 History of Present illness Narrative Reason [...] nursing note reviewed. Exam conducted with a white sugar supervisor present. Vitals: Estimated body mass index is [...] obtained without difficulty and patient was given [facility] order to have obtained. Orders Placed This Encounter Procedures US OB 14+ weeks anatomy scan Alpha fetoprotein, maternal CHLAMYDIA TRACHOMATIS (GENITO/STI) Neisseria gonorrhea DNA probe, direct POCT urinalysis dipstick manually resulted Follow Up: Patient is to return to our office in 4 weeks for routine OB appointment Documented by Nimco Mojica LPN on behalf of: CYNTHIA Del Cid documented in this encounter [facility] 04-30-2024 History of Present illness Narrative Reason [...] by Nga Cormier MA on behalf of: Elaezar Lilly DO documented in this encounter [facility] 03-23-2024 History of Present illness Narrative Reason [...] or undercooked meat, and stay away from [facility]. Patient has also been advised to not [...] Alana Gongora LPN documented in this encounter [facility] 03-14-2024 History of Present illness Narrative Reason [...] nursing note reviewed. Exam conducted with a white sugar supervisor present. Vitals: Estimated body mass index is [...] Eleazar Lilly DO documented in this encounter [facility] 03-02-2024 Note Patient Education Ma terials Name: [...] This means they are not cancer. ? [id number] [employer]. All rights reserved. This information is not intended as a substitute for professional medical care. Always follow your healthcare professional's instructions. [facility] 02-28-2024 History of Present illness Narrative Reason for Appointment: Patient ID: Giancarlo Celaya is a 28 y.o. female who presents for Telehealth (Pt had ultrasound and positive HCG) Patient presents today via telephone call for a telehealth appointment. Patients Phone #: [phone] (mobile) Current Medications: has a current medication [...] Eleazar Lilly DO documented in this encounter [facility] 02-08-2024 History of Present illness Narrative Reason [...] nursing note reviewed. Exam conducted with a white sugar supervisor present. Vitals: Estimated body mass index is [...] Eleazar Lilly DO documented in this encounter [facility] 03-26-2023 Evaluation note Encounter Date Diagnosis Assessment [...] verbalized understanding and agrees with treatment plan [employer] Other 05-27-2023 Evaluation note* Encounter Date Diagnosis [...] no improvement in 2 to 3 days [employer] Other Evaluation note* Diagnosis Onset Date Resolution Status Acquired scoliosis acute Daily headache acute Fatigue acute Hot flashes acute Irregular menstrual cycle ac hans Neck pain acute [facility] Work Phone: Evaluation note* Diagnosis Onset Date Resolution Status Dizziness acute Heart palpitations acute [facility] Work Phone: Evaluation note* Diagnosis Onset Date Resolution Status Dizziness acute Heart palpitations acute Anxiety acute Depression [facility] Work Phone: evaluation note* Diagnosis Onset Date Resolution Status Dizziness acute Heart palpitations acute Anxiety acute Depression acute Vaginal discharge noneactive Acute effusion of both middle ears noneactive [facility] Work Phone: Evaluation note* Diagnosis Pelvic [...] tube dysfunction acute May 18, 2024 10:24am [facility] Work Phone: Evaluation note* Diagnosis Screening, [...] gestation of [facility] Diagnosis Third trimester ([facility]-HCC) state, incidental 37 weeks gestation of ([facility]-HCC) documented in this encounter [facility] Summary [...] DATE CREATED AUTHOR AUTHOR'S ORGANIZ ATION 12/02/2019 [facility] DATE CREATED AUTHOR AUTHOR'S ORGANIZ ATION 02/06/2024 [facility] DATE CREATED AUTHOR AUTHOR'S ORGANIZ ATION 05/26/2024 [facility] DATE CREATED AUTHOR AUTHOR'S ORGANIZ ATION 10/25/2024 [facility] EPIC REASON FOR VISIT [...] Member Role Status Dates Evelyn Vu APRN PEDIATRIC NEUROLOGIST-C Primary Care Provider Active Team Status: Inactive Member Role Status Dates Evelyn Vu APRN PEDIATRIC NEUROLOGIST-C Primary Care Provider, Attending Provider Active Start: July 21, 2023 End: July 21, 2023 Team Status: Inactive Member Role Status Dates Evelyn Vu APRN PEDIATRIC NEUROLOGIST-C Primary Care Provider, Attending Provider Active Start: January 03, 2024 End: January 03, 2024 Team Status: Active Member Role Status Dates Evelyn Vu APRN PEDIATRIC NEUROLOGIST-C Primary Care Provider Active Start: January 072023 Ty Aguilar DO Attending Provider Active S tart: January 19, 2024 Team Status: Inactive Member Role Status Dates Evelyn Vu APRN PEDIATRIC NEUROLOGIST-C Primary Care Provider, Attending Provider Active Start: January 24, 2024 End: January 24, 2024 Team Status: Inactive Member Role Status Dates Evelyn Vu APRN PEDIATRIC NEUROLOGIST-C Primary Care Provider Active Start: January 082023 End: February 02, 2024 Jodie Portillo APRN Attending Provider Active Start: February 02, 2024 End: February 02, 2024 Team Status: Inactive Member Role Status Dates Jodie Portillo APRN Attending Provider Active Start: February 02, 2024 End: February 02, 2024 Locker Room Manager Relationship Specialty Start Date End Date Corwin Dee DO [address] [place], [place] [id number] PCP - General Family Medicine 09/14/22 Locker Room Manager Relationship Specialty Start Date End Date Corwin Dee DO [address] [place] [address] PCP - General Family Medicine 09/14/22 Locker Room Manager Relationship Specialty Start Date End Date Corwin Dee DO [address] [place] [address] PCP - General Family Medicine 09/14/22 Locker Room Manager Relationship Specialty Start Date End Date Corwin Dee DO [address] [place] [address] PCP - General Family Medicine 09/14/22 Locker Room Manager Relationship Specialty Start Date End Date Unallocated, Deng Bermudez MD [facility] [place] [address] PCP - General Family Medicine 02/28/24 Locker Room Manager Relationship Specialty Start Date End Date Unallocated, Deng Bermudez MD [address] [facility] [place] [address] PCP - General Family Medicine 02/28/24 Locker Room Manager Relationship Specialty Start Date End Date Unallocated, Deng Bermudez MD [address] [facility] [place] [address] PCP - General Family Medicine 02/28/24 Locker Room Manager Relationship Specialty Start Date End Date Unallocated, Deng Bermudez MD [address] [place] [address] PCP - General Family Medicine 02/28/24 Locker Room Manager Relationship Specialty Start Date End Date Unallocated, Deng Bermudez MD [facility] [place] [address] PCP - General Family Medicine 02/28/24 Locker Room Manager Relationship Specialty Start Date End Date Unallocated, Deng Bermudez MD [facility] [place] [address] PCP - General Family Medicine 02/28/24 Locker Room Manager Relationship Specialty Start Date End Date Unallocated, Deng Bermudez MD [facility] [place] [address] PCP - General Family Medicine 02/28/24 Team [...] May 18, 2024 End: May 18, 2024 Locker Room Manager Relationship Specialty Start Date End Date Unallocated, Deng Bermudez MD [facility] [address] [facility] [place] [address] PCP - General Family Medicine 02/28/24 Locker Room Manager Relationship Specialty Start Date End Date Unallocated, [place] [address] PCP - General Family Medicine 02/28/24 Locker Room Manager Relationship Specialty Start Date End Date Unallocated, [place] [address] PCP - General Family Medicine 02/28/24 Locker Room Manager Relationship Specialty Start Date End Date Unallocated, Deng Bermudez MD [facility] [address] [facility] [place] [address] PCP - General Family Medicine 02/28/24 Locker Room Manager Relationship Specialty Start Date End Date Unallocated, Deng Bermudez MD [facility] [address] [facility] [place] [address] PCP - General Family Medicine 02/28/24 Locker Room Manager Relationship Specialty Start Date End Date Unallocated, Deng Bermudez MD [facility] [address] [facility] [place] [address] PCP - General Family Medicine 02/28/24 Locker Room Manager Relationship Specialty Start Date End Date Unallocated, Deng Bermudez MD [facility] [address] [facility] [place] [address] PCP - General Family Medicine 02/28/24 Locker Room Manager Relationship Specialty Start Date End Date Unallocated, [place] [address] PCP - General Family Medicine 02/28/24 Locker Room Manager Relationship Specialty Start Date End Date Unallocated, Deng [facility]udez [place] [place] [address] PCP - General Family Medicine 02/28/24 Goals [...] BE BASED ON THE PRIMARY CLINICAL RECORDS. [employer] [facility]. provides no warranty or guarantee of the accuracy or completeness of information in this document.
[2024-10-26 07:51] VITALS: BP 121/76; PULSE 79
== END 2024-10-26 09:00 | disposition home or self-care (01) ==
LOC: FBCO 07:42 → FBC 07:45
PROVIDERS: PCP Nurse Practitioner Family; Visit Provider Obstetrics & Gynecology
DX: O26.893 Other specified pregnancy related conditions, third trimester (principal)
CPT/HCPCS: 59025

== ENCOUNTER 2024-10-30 12:53 | Outpatient (OUT) | payer MEDICAID, SELFPAY ==
--- NOTE | 2024-10-30 | US_ITS ---
[place] [address] Patient Name: GIANCARLO CELAYA MRN: [id number] date: 1995 Sex: F Assigned Patient Location: US Current Patient Location: Accession/Order Number: [id number] Exam Date: 10/30/2024 14:12 Report Date: 10/30/2024 14:12 At the request of: AMALIA CASILLAS DO Procedure: US OB BPP w non-stress Biophysical profile. Reason for exam: Knot of the umbilical cord. Comparison: BPP 10/23/2024 TECHNIQUE: Transabdominal imaging of the gravid uterus was obtained. FINDINGS: Carpet Cleaning Technician reports the BPP is 8 out of 8. BHAVANI is normal at 19cm. heart rate 130 bpm. US/US OB BPP w non-stress IMPRESSION: BPP 8 out of 8. Impression dictated by: Celestino Vinson Jr., D.O. 10/30/2024 2:12 PM Dictation Location: [place] [address] Electronically authenticated by: [id number] Y Date: 10/30/2024 14:12
[2024-10-30 13:46] VITALS: BP 114/77; PULSE 72
== END 2024-10-30 14:12 | disposition home or self-care (01) ==
LOC: US 12:53 → FBC 13:25
PROVIDERS: PCP Nurse Practitioner Family; Visit Provider Obstetrics & Gynecology
DX: O69.2XX0 Labor and delivery complicated by other cord entanglement, with compression, not applicable or unspecified (principal); Z3A.38 38 weeks gestation of pregnancy
CPT/HCPCS: 76818

== ENCOUNTER 2024-10-31 05:01 | Inpatient (IN) | payer MEDICAID, SELFPAY ==
[2024-10-31] VITALS (32 sets, daily range): BP systolic 118–148; BP diastolic 60–95; PULSE 63–101; TEMP 36.6–37
--- OUTSIDE RECORDS SUMMARY | 2024-10-31 06:15 | XMS_ITS | CCD ---
Author Organization [facility] Care Team Providers Care Personal Lines Account Executive Name Role Phone TALON VERAS Unavailable Unavailable [...] Unavailable Corwin Dee DO Primary Care Provider [phone] Unallocated , [place] Provider Primary Care Provi kamille Troy ESTEVEZCLERK OPERATORAna Attending Carley vailable Schlumbohm PA-C, Susana Dickerson Primary Care U navailable [place] CHECKER PRODUCT DESIGN-CLERK OPERATOR, Ana Serra Attending Carley vailable Schlumbohm PA-C, Susana Dickerson Primary Care U navailable Mike Jones Attending Unavailable Schlumbohm PA-C, Susana Dickerson Primary Care U navailable Breece PA-C, Amaar Serra Attending Unav ailable Schlumbohm PA-C, Susana Dickerson Referring U navailable Schlumbohm PA-C, Susana Dickerson Primary Care U navailable Schlumbohm PA-C, Susana Dickerson Attending U navailable Schlumbohm PA-C, Susana Dickerson Primary Care U navailable Schlumbohm PA-C, Susana Dickerson Attending U navailable Schlumbohm PA-C, Susana Dickerson Primary Care U navailable [place] CHECKER PRODUCT DESIGN-CLERK OPERATOR, Ana Serra Attending Carley vailable Schlumbohm PA-C, [...] disintegrating tablet Indications: Nausea and vomiting in ([facility]) Take 1 tablet (4 mg) by [...] 05-21-2019 take 1 capsule by mo [facility] three times daily as needed for cough [...] daily Start: 08-14-2018 [facility] citalopram 10 mg [...] tablet Discontinued 150 MG PO Q3D 2 February 05, 2024 11:00pm May 18, 2024 10:31am may repeat x 1 in 3 days if needed Start: 10-31-2018 take 1 tablet by kunal once, then take 1 tablet by mouth [...] [37 weeks gestation of ] 10-23-2024 Episodic Residual codes; unclassified (2 sources) Gestation period, 38 weeks; Translations: [38 weeks gestation of ] 10-29-2024 Episodic Spondylosis; intervertebral disc disorders; other back [...] Facility US OB BPP W NON-STRESS on 10-30-2024 [place] [address] Ultrasound Report Signed Patient: GIANCARLO CELAYA MR#: [id number] : 1995 Acct:[id number] Age/Sex: 28 / F ADM Date: 10/30/24 Loc: US Attending Dr: Eleazar Lilly D.O. Ordering Physician: Eleazar Lilly D.O. Date of Service: 10/30/24 Procedure(s): US OB BPP w non-stress Accession Number(s): [id number] cc: Eleazar Lilly D.O.; EVELYN VU [place] [phone] Patient Name: GIANCARLO CELAYA MRN: TBH:[id number] date: 1995 Sex: F Assigned Patient Location: US Current Patient Location: Accession/Order Number: [id number] Exam Date: 10/30/2024 14:12 Report Date: 10/30/2024 14:12 At the request of: ELEAZAR LILLY DO Procedure: US OB BPP w non-stress Biophysical profile. Reason for exam: Knot of the umbilical cord. Comparison: BPP 10/23/2024 TECHNIQUE: Transabdominal imaging of the gravid uterus was obtained. FINDINGS: Trailer Truck Driver reports the BPP is 8 out of 8. BHAVANI is normal at 19cm. heart rate 130 bpm. US/US OB BPP w non-stress IMPRESSION: BPP 8 out of 8. Impression dictated by: Celestino Vinson Jr., D.O. 10/30/2024 2:12 PM Dictation Location: [place] [address] Electronically authenticated by: [id number] Y Date: 10/30/2024 14:12 Dictated By: Celestino Vinson M.D. Signed By: 10/30/24 1415 DD/ 1412 TD/TT: Film Recordist: [facility], Radiologist, - 10/30/2024 [place] [address] Ultrasound Report Signed Patient: GIANCARLO CELAYA MR#: [id number] : 1995 Acct:[id number] Age/Sex: 28 / F ADM Date: 10/30/24 Loc: US Attending Dr: Eleazar Lilly D.O. Ordering Physician: Eleazar Lilly D.O. Date of Service: 10/30/24 Procedure(s): US OB BPP w non-stress Accession Number(s): [id number] cc: Eleazar Lilly D.O.; EVELYN VU [place] [phone] Patient Name: GIANCARLO CELAYA MRN: [facility]:[id number] date: 1995 Sex: F Assigned Patient Location: Current Patient Location: Accession/Order Number: [id number] Exam Date: 10/30/2024 14:12 Report Date: 10/30/2024 14:12 At the request of: ELEAZAR LILLY DO Procedure: US OB BPP w non-stress Biophysical profile. Reason for exam: Knot of the umbilical cord. Comparison: BPP 10/23/2024 TECHNIQUE: Transabdominal imaging of the gravid uterus was obtained. FINDINGS: Trailer Truck Driver reports the BPP is 8 out of 8. BHAVANI is normal at 19cm. heart rate 130 bpm. US/US OB BPP w non-stress IMPRESSION: BPP 8 out of 8. Impression dictated by: Celestino Vinson Jr., D.O. 10/30/2024 2:12 PM Dictation Location: [place] [address] Electronically authenticated by: [id number] Y Date: 10/30/2024 14:12 Dictated By: Celestino Vinson M.D. Signed By: 10/30/24 141 DD/ 141 TD/TT: Film Recordist: [facility] [employer] Radiology Study observation (narrative) [facility] US OB BPP W NON-STRESS Ordered By: Radiologist Radiology on 10-30-2024 [facility] [employer] Work Phone: US OB BPP W NON-STRESS on 10-23-2024 [place] [address] Ultrasound Report Signed Patient: GIANCARLO CELAYA MR#: [id number] : 1995 Acct:[id number] Age/Sex: 28 / F ADM Date: 10/23/24 Loc: US Attending Dr: Eleazar Lilly D.O. Ordering Physician: Eleazar Lilly D.O. Date of Service: 10/23/24 Procedure(s): US OB BPP w non-stress Accession Number(s): [id number] cc: Eleazar Lilly D.O.; EVELYN VU [place] [address] Patient Name: GIANCARLO CELAYA MRN: [facility]:[id number] date: 1995 Sex: F Assigned Patient Location: [facility] Current Patient Location: Accession/Order Number: [id number] Exam Date: 10/23/2024 14:48 Report Date: 10/23/2024 14:49 At the request of: ELEAZAR LILLY DO Procedure: US OB BPP w non-stress Biophysical profile. Reason for exam: Knot of the umbilical cord. Comparison: BPP 10/16/2024 TECHNIQUE: Transabdominal imaging of the gravid uterus was obtained. FINDINGS: Trailer Truck Driver reports the BPP is 8 out of 8. BHAVANI is normal at 14.5 cm. heart rate 134bpm. US/US OB BPP w non-stress IMPRESSION: BPP 8 out of 8. Impression dictated by: Celestino Vinson Jr., D.O. 10/23/2024 2:49 PM Dictation Location: [place] [address] Electronically authenticated by: [id number] Y Date: 10/23/2024 14:49 Dictated By: Celestino Vinson M.D. Signed By: 10/23/24 1452 DD/ 1449 TD/TT: Film Recordist: [facility] Radiology, Radiologist, MD - 10/23/2024 [place] [address] Ultrasound Report Signed Patient: GIANCARLO CELAYA MR#: [id number] : 1995 Acct:[id number] Age/Sex: 28 / F ADM Date: 10/23/24 Loc: US Attending Dr: Eleazar Lilly D.O. Ordering Physician: Eleazar Lilly D.O. Date of Service: 10/23/24 Procedure(s): US OB BPP w non-stress Accession Number(s): [id number] cc: Eleazar Lilly D.O.; EVELYN VU [place] [phone] Patient Name: GIANCARLO CELAYA MRN: [facility]:[id number] date: 1995 Sex: F Assigned Patient Location: [facility] Current Patient Location: Accession/Order Number: [id number] Exam Date: 10/23/2024 14:48 Report Date: 10/23/2024 14:49 At the request of: ELEAZAR LILLY DO Procedure: US OB BPP w non-stress Biophysical profile. Reason for exam: Knot of the umbilical cord. Comparison: BPP 10/16/2024 TECHNIQUE: Transabdominal imaging of the gravid uterus was obtained. FINDINGS: Trailer Truck Driver reports the BPP is 8 out of 8. BHAVANI is normal at 14.5 cm. heart rate 134bpm. US/US OB BPP w non-stress IMPRESSION: BPP 8 out of 8. Impression dictated by: Celestino Vinson Jr., D.O. 10/23/2024 2:49 PM Dictation Location: [place] [address] Electronically authenticated by: [id number] Y Date: 10/23/2024 14:49 Dictated By: Celestino Vinson M.D. Signed By: 10/23/24 1452 DD/ 1449 TD/TT: Film Recordist: [facility] Radiology Study observation (narrative) [facility] US OB BPP W NON-STRESS Ordered By: Radiologist Radiology on 10-23-2024 [facility] Work Phone: Urinalysis macro (dipstick) panel (U)on 10-23-2024 Bilirubin, UA Negative Negative - 4(70) +++ mg/dL [facility] Blood, UA Negative Negative - 50 Fuad/mcL [facility] Clarity, UA Clear [facility] Color, UA Yellow [facility] Glucose, UA Negative Negative - 2000(110) ++++ mg/dL [facility] Interpretation and review of laboratory results Normal [facility] Ketones, UA Negative Negative - 160(16) ++++ mg/dL [facility] Leukocytes, UA Negative Negative - 500+++ Sandie/mcL [facility] Nitrite, UA Negative Negative - Positive [facility] pH, UA 6.5 5 - 9 [facility] Protein, UA Positive Negative - 2000(20) ++++ mg/dL [facility] Comment on above: 30 Spec Grav, UA 1.025 1 - 1.03 [facility] Urobilinogen, UA 0.2 0.2 - 12 mg/dL [facility] US OB BPP W NON-STRESS on 10-16-[address] [address] Ultrasound Report Signed Patient: GIANCARLO CELAYA MR#: [id number] : 1995 Acct:[id number] Age/Sex: 28 / F ADM Date: 10/16/24 Loc: US Attending Dr: Eleazar Lilly D.O. Ordering Physician: Eleazar Lilly D.O. Date of Service: 10/16/24 Procedure(s): US OB BPP w non-stress Accession Number(s): [id number] cc: Eleazar Lilly D.O.; EVELYN VU [place] [address] Patient Name: GIANCARLO CELAYA MRN: [facility]:[id number] date: 1995 Sex: F Assigned Patient Location: [facility] Current Patient Location: Accession/Order Number: [id number] Exam Date: 10/16/2024 16:18 Report Date: 10/16/2024 16:19 At the request of: ELEAZAR LILLY DO Procedure: US OB BPP w non-stress Biophysical profile. Reason for exam: Knot of the umbilical cord. Comparison: BPP 10/09/2024. TECHNIQUE: Transabdominal imaging of the gravid uterus was obtained. FINDINGS: Trailer Truck Driver reports the BPP is 8 out of 8. BHAVANI is normal at 12.6 cm. heart rate 132 bpm. US/US OB BPP w non-stress IMPRESSION: BPP 8 out of 8. Impression dictated by: Celestino Vinson Jr., D.O. 10/16/2024 4:19 PM Dictation Location: [place] [address] Electronically authenticated by: [id number] Y Date: 10/16/2024 16:19 Dictated By: Celestino Vinson M.D. Signed By: 10/16/24 1621 DD/ 1619 TD/TT: Film Recordist: [facility] Radiology, Radiologist, MD - 10/16/2024 [place] [address] Ultrasound Report Signed Patient: GIANCARLO CELAYA MR#: [id number] : 1995 Acct:[id number] Age/Sex: 28 / F ADM Date: 10/16/24 Loc: US Attending Dr: Eleazar Vijaya D.O. Ordering Physician: Eleazar Lilly D.O. Date of Service: 10/16/24 Procedure(s): US OB BPP w non-stress Accession Number(s): [id number] cc: Eleazar Lilly D.O.; EVELYN VU [place] [address] Patient Name: GIANCARLO CELAYA MRN: [facility]:[id number] date: 1995 Sex: F Assigned Patient Location: [facility] Current Patient Location: Accession/Order Number: [id number] Exam Date: 10/16/2024 16:18 Report Date: 10/16/2024 16:19 At the request of: ELEAZAR LILLY DO Procedure: US OB BPP w non-stress Biophysical profile. Reason for exam: Knot of the umbilical cord. Comparison: BPP 10/09/2024. TECHNIQUE: Transabdominal imaging of the gravid uterus was obtained. FINDINGS: Trailer Truck Driver reports the BPP is 8 out of 8. BHAVANI is normal at 12.6 cm. heart rate 132 bpm. US/US OB BPP w non-stress IMPRESSION: BPP 8 out of 8. Impression dictated by: Celestino Vinson Jr., D.O. 10/16/2024 4:19 PM Dictation Location: [place] [address] Electronically authenticated by: [id number] Y Date: 10/16/2024 16:19 Dictated By: Celestino Vinson M.D. Signed By: 10/16/24 1621 DD/ 1619 TD/TT: Film Recordist: [facility] Radiology Study observation (narrative) [facility] US OB BPP W NON-STRESS Ordered By: Radiologist Radiology on 10-16-2024 [facility] Work Phone: Urinalysis macro (dipstick) panel (U)on 10-16-2024 Bilirubin, UA Positive Negative - 4(70) +++ mg/dL [facility] Blood, UA Negative Negative - 50 Fuad/mcL [facility] Clarity, UA Clear [facility] Color, UA Yellow [facility] Glucose, UA Negative Negative - 2000(110) ++++ mg/dL [facility] Comment on above: small Interpretation and review of laboratory results Abnormal [facility] Ketones, UA Negative Negative - 160(16) ++++ mg/dL [facility] Leukocytes, UA Negative Negative - 500+++ Sandie/mcL [facility] Nitrite, UA Negative Negative - Positive [facility] pH, UA 6 5 - 9 [facility] Protein, UA Positive Negative - 1999(20) ++++ mg/dL [facility] Comment on above: 30 Spec Grav, UA 1.03 1 - 1.03 [facility] Urobilinogen, UA 0.2 0.2 - 12 mg/dL [facility] AMNISUREon 10-14-2024 [facility] AMNISURE Negative NEGATIVE [facility] No Panel Informationon 10-14 [facility] UA (CLEAN/CATCH) BUSINESS SYSTEMS LEAD/YVONNE RO IF IND.on 10-14-2024 BILIRUBIN URINE Negative NEGATIVE [facility] BLOOD URINE Negative NEGATIVE [facility] Clarity (U) SL CLOUDY CLEAR [facility] Color (U) LT. YELLOW YELLOW [facility] GLUCOSE URINE UA Negative NEGATIVE mg/dL [facility] Interpretation and review of laboratory results Abnormal [facility] Ketones Ql (U) Negative NEGATIVE mg/dL [facility] Leukocyte esterase Test strip Ql (U) MODERATE Abnormal NEGATIVE [facility] NITRITE URINE Negative NEGATIVE [facility] pH (U) 7.0 [pH] 5.0 - 9.0 [facility] Protein (U) [Mass/Vol] 30 mg/dL Abnormal NEG/TRACE [facility] SPECIFIC GRAVITY URINE 1.020 1.005 - 1.025 [facility] URINE MICROSCOPIC INDICATED YES [facility] UROBILINOGEN URINE 2.0 EU/dL Abnormal 0.2 - 1.0 EU/dL [facility] US OB BPP W NON-STRESS on 10-09-2024 [place] [address] Ultrasound Report Signed Patient: GIANCARLO CELAYA MR#: [id number] : 1995 Acct:[id number] Age/Sex: 28 / F ADM Date: 10/09/24 Loc: [facility] 250-[address]: Eleazar Lilly D.O. Ordering Physician: Eleazar Lilly D.O. Date of Service: 10/09/24 Procedure(s): US OB BPP w non-stress Accession Number(s): [id number] cc: Eleazar Lilly D.O.; EVELYN VU [place] [address] Patient Name: GIANCARLO CELAYA MRN: [facility]:[id number] date: 1995 Sex: F Assigned Patient Location: [facility] Current Patient Location: [facility] Accession/Order Number: [id number] Exam Date: 10/09/2024 16:46 Report Date: 10/09/2024 [...] Katz M.D. 10/09/2024 4:48 PM Dictation Location: [place] [address] Electronically authenticated by: [id number] Y Date: 10/09/2024 16:48 Dictated By: Ty Katz D.O. Signed By: 10/09/24 165 DD/ TD/TT: Film Recordist: [facility] Radiology, Radiologist, MD - 10/09/2024 [place] [address] Ultrasound Report Signed Patient: GIANCARLO CELAYA MR#: [id number] : 1995 Acct:[id number] Age/Sex: 28 / F ADM Date: 10/09/24 Loc: [facility] 250-[address]: Eleazar Lilly D.O. Ordering Physician: Eleazar Lilly D.O. Date of Service: 10/09/24 Procedure(s): US OB BPP w non-stress Accession Number(s): [id number] cc: Eleazar Lilly D.O.; EVELYN VU [place] [phone] Patient Name: GIANCARLO CELAYA MRN: [facility]:[id number] date: 1995 Sex: F Assigned Patient Location: [facility] Current Patient Location: [facility] Accession/Order Number: [id number] Exam Date: 10/09/2024 16:46 Report Date: 10/09/2024 [...] Katz M.D. 10/09/2024 4:48 PM Dictation Location: [place] [address] Electronically authenticated by: [id number] Y Date: 10/09/2024 16:48 Dictated By: Ty Katz D.O. Signed By: 10/09/24 165 DD/ 47 TD/TT: Film Recordist: [facility] Radiology Study observation (narrative) [facility] US OB BPP W NON-STRESS Ordered By: Radiologist Radiology on 10-09-2024 [facility] Work Phone: US OB BPP W NON-STRESS on 10-02-2024 [place] [address] Ultrasound Report Signed Patient: GIANCARLO CELAYA MR#: [id number] : 1995 Acct:[id number] Age/Sex: 28 / F ADM Date: 10/02/24 Loc: US Attending Dr: Eleazar Lilly D.O. Ordering Physician: Eleazar Lilly D.O. Date of Service: 10/02/24 Procedure(s): US OB BPP w non-stress Accession Number(s): [id number] cc: Eleazar Lilly D.O.; EVELYN VU [address] [address] Patient Name: GIANCARLO CELAYA MRN: [facility]:[id number] date: 1995 Sex: F Assigned Patient Location: [facility] Current Patient Location: US Accession/Order Number: [id number] Exam Date: 10/02/2024 12:41 Report Date: 10/02/2024 [...] Anand M.D. 10/02/2024 12:43 PM Dictation Location: [place] [address] Electronically authenticated by: [id number] Y Date: 10/02/2024 12:43 Dictated By: Yaneli Anand M.D. Signed By: 10/02/24 1246 DD/ 1243 TD/TT: Film Recordist: [facility] Radiology, Radiologist, - 10/02/[address] [address] Ultrasound Report Signed Patient: GIANCARLO CELAYA MR#: [id number] : 1995 Acct:[id number] Age/Sex: 28 / F ADM Date: 10/02/24 Loc: US Attending Dr: Eleazar Lilly D.O. Ordering Physician: Eleazar Lilly D.O. Date of Service: 10/02/24 Procedure(s): US OB BPP w non-stress Accession Number(s): [id number] cc: Eleazar Lilly D.O.; EVELYN VU [address] [address] Patient Name: GIANCARLO CELAYA MRN: [id number]:[id number] date: 1995 Sex: F Assigned Patient Location: [facility] Current Patient Location: US Accession/Order Number: [id number] Exam Date: 10/02/2024 12:41 Report Date: 10/02/2024 [...] Anand M.D. 10/02/2024 12:43 PM Dictation Location: [place] [address] Electronically authenticated by: [id number] Y Date: 10/02/2024 12:43 Dictated By: Yaneli Anand M.D. Signed By: 10/02/24 1246 DD/ 1243 TD/TT: Film Recordist: [facility] Radiology Study observation (narrative) [facility] US OB BPP W NON-STRESS Ordered By: Radiologist Radiology on 10-02-2024 [facility] Work Phone: US OB BPP W NON-STRESS on 09-25-2024 [place] [address] Ultrasound Report Signed Patient: GIANCARLO CELAYA MR#: [id number] : 1995 Acct:[id number] Age/Sex: 28 / F ADM Date: 09/25/24 Loc: US Attending Dr: Eleazar Lilly D.O. Ordering Physician: Eleazar Lilly D.O. Date of Service: 09/25/24 Procedure(s): US OB BPP w non-stress Accession Number(s): [id number] cc: Eleazar Lilly D.O.; EVELYN VU [place] [address] Patient Name: GIANCARLO CELAYA MRN: [id number]:[id number] date: 1995 Sex: F Assigned Patient Location: Current Patient Location: US Accession/Order Number: [id number] Exam Date: 09/25/2024 16:34 Report Date: 09/25/2024 [...] Katz M.D. 09/25/2024 4:35 PM Dictation Location: [facility] Electronically authenticated by: [id number] Y Date: 09/25/2024 16:35 Dictated By: Ty Katz D.O. Signed By: 09/25/241636 DD/ 34 TD/TT: Film Recordist: [facility] Radiology, Radiologist, - 09/25/2024 [place] [address] Ultrasound Report Signed Patient: GIANCARLO CELAYA MR#: [id number] : 1995 Acct:[id number] Age/Sex: 28 / F ADM Date: 09/25/24 Loc: US Attending Dr: Eleazar Lilly D.O. Ordering Physician: Eleazar Lilly D.O. Date of Service: 09/25/24 Procedure(s): US OB BPP w non-stress Accession Number(s): [id number] cc: Eleazar Lilly D.O.; EVELYN VU [place] [address] Patient Name: GIANCARLO CELAYA MRN: [facility]:[id number] date: 1995 Sex: F Assigned Patient Location: Current Patient Location: Accession/Order Number: [id number] Exam Date: 09/25/2024 16:34 Report Date: 09/25/2024 [...] Katz M.D. 09/25/2024 4:35 PM Dictation Location: [facility] Electronically authenticated by: [id number] Y Date: 09/25/2024 16:35 Dictated By: Ty Katz D.O. Signed By: 09/25/241636 DD/ 34 TD/TT: Film Recordist: [facility] Radiology Study observation (narrative) [facility] US OB BPP W NON-STRESS Ordered By: Radiologist Radiology on 09-25-2024 [facility] Work Phone: ALL CBC WITH AUTO DIFFon BASOPHILS ABSOLUTE AUTO 0 [facility] Basophils/100 WBC (Bld) 0.2 % 0.2 - 2.0 % [facility] Eosinophils/100 WBC (Bld) 0.9 % 0.9 - 7.0 % [facility] Erythrocyte distribution width (RBC) [Ratio] 12.9 % 11.0 - 15.0 % [facility] Hematocrit (Bld) [Volume fraction] 32.7 % Low 36.0 - 48.0 % [facility] Hemoglobin (Bld) [Mass/Vol] 11.6 g/dL Low 12.0 - 16.0 g/dL [facility] IMMATURE GRANULOCYTES ABS AUTO 0.07 High [facility] Immature granulocytes/100 WBC (Bld) 0.7 % High 0.0 - 0.5 % [facility] Interpretation and review of laboratory results Abnormal [facility] LYMPHOCYTES ABSOLUTE AUTO 1.8 [facility] Lymphocytes/100 WBC (Bld) 18 % Low 20.5 - 60.0 % [facility] MCH (RBC) [Entitic mass] 31.2 pg 26.7 - 34.0 pg [facility] MCHC (RBC) [Mass/Vol] 35.5 g/dL High 29.9 - 35.2 g/dL [facility] MCV (RBC) [Entitic vol] 87.9 fL 81.0 - 99.0 fL [facility] MONOCYTES ABSOLUTE AUTO 0.6 [facility] Monocytes/100 WBC (Bld) 6.4 % 1.7 - 12.0 % [facility] NEUTROPHILS ABSOLUTE AUTO 7.2 High [facility] Neutrophils/100 WBC (Bld) 73.8 % 43.0 - 75.0 % [facility] Platelet mean volume (Bld) [Entitic vol] 10.3 fL 9.5 - 13.5 fL [facility] TBH EO # 0.1 [facility]H PLT 145 Low [facility] TB RBC 3.72 Low [facility] WBC 9.8 [facility] CMP (CMP) (FOR REMOTE FH C USE)on 09-19-2024 Albumin [Mass/Vol] 2.5 g/dL Low 3.4 - 5.0 g/dL [facility] ALBUMIN GLOBULIN RATIO 0.6 [facility] ALP [Catalytic activity/Vol] 123 U/L High 46 - 116 U/L [facility] ALT [Catalytic activity/Vol] 17 U/L 14 - 59 U/L [facility] Anion gap [Moles/Vol] 12.6 mmol/L [facility] AST [Catalytic activity/Vol] 19 U/L 15 - 37 U/L [facility] Bilirubin [Mass/Vol] 0.4 mg/dL 0.2 - 1 .0 mg/dL [facility] Calcium [Mass/Vol] 8.9 mg/dL 8.5 - 10. 1 mg/dL [facility] Chloride [Moles/Vol] 104 mmol/L 98 - 10 7 mmol/L [facility] CO2 [Moles/Vol] 25.1 mmol/L 21.0 - 32.0 mmol/L [facility] Creatinine [Mass/Vol] 0.6 mg/dL 0.55 - 1.02 mg/dL [facility] GFR/1.73 sq M.predicted CKD-EPI (S/P/Bld) [Vol rate/Area] >60 >=60 mL/min/1.73 m 2 [facility] Globulin (S) [Mass/Vol] 3.9 g/dL [facility] Glucose [Mass/Vol] 101 mg/dL 74 - 106 mg/dL [facility] Interpretation and review of laboratory results Abnormal [facility] Potassium [Moles/Vol] 3.7 mmol/L 3.5 - 5.1 mmol/L [facility] Protein [Mass/Vol] 6.4 g/dL 6.4 - 8.2 g/dL [facility] Sodium [Moles/Vol] 138 mmol/L 136 - 145 mmol/L [facility] EGFR-NON AF ANDORRAN >60 >=60 mL/min/1.73 m 2 [facility] Urea nitrogen [Mass/Vol] 7 mg/dL 7.0 - 18.0 mg/dL [facility] Urea nitrogen/Creatinine [Mass ratio] 11.7 mg/mg [facility] OB GROWTHon 09-18-2024 [place] [address] Ultrasound Report Signed Patient: GIANCARLO CELAYA MR#: [id number] : 1995 Acct:[id number] Age/Sex: 28 / F ADM Date: 09/18/24 Loc: US Attending Dr: Eleazar Lilly D.O. Ordering Physician: Eleazar Lilly D.O. Date of Service: 09/18/24 Procedure(s): US OB growth Accession Number(s): [id number] cc: Eleazar Lilly D.O.; EVELYN VU [place] [address] Patient Name: GIANCARLO CELAYA MRN: [facility]:[id number] date: 1995 Sex: F Assigned Patient Location: US Current Patient Location: US Accession/Order Number: [id number] Exam Date: 09/18/2024 16:23 Report Date: 09/18/2024 [...] Smith M.D. 09/18/2024 4:30 PM Dictation Location: [place] [address] Electronically authenticated by: [id number] Y Date: 09/18/2024 16:30 Dictated By: Wally Smith M.D. Signed By: 09/18/24 1632 DD/ 1630 TD/TT: Film Recordist: [facility] Radiology, Radiologist, - 09/18/2024 [place] [address] Ultrasound Report Signed Patient: GIANCARLO CELAYA MR#: [id number] : 1995 Acct:[id number] Age/Sex: 28 / F ADM Date: 09/18/24 Loc: US Attending Dr: Eleazar Lilly D.O. Ordering Physician: Eleazar Lilly D.O. Date of Service: 09/18/24 Procedure(s): US OB growth Accession Number(s): [id number] cc: Eleazar Lilly D.O.; [place] [address] Patient Name: GIANCARLO CELAYA MRN: [facility]:[id number] date: 1995 Sex: F Assigned Patient Location: Current Patient Location: Accession/Order Number: [id number] Exam Date: 09/18/2024 16:23 Report Date: 09/18/2024 [...] Smith M.D. 09/18/2024 4:30 PM Dictation Location: [place] Electronically authenticated by: [id number] Y Date: 09/18/2024 16:30 Dictated By: Wally Smith M.D. Signed By: 09/18/24 1632 DD/ 163 TD/TT: Film Recordist: [facility] Radiology Study observation (narrative) [facility] OB GROWTHOrdered By: Tico ologjoe Radiology on 09-18-2024 [facility] Work Phone: Urinalysis macro (dipstick) panel (U)on 09-13-2024 Bilirubin, UA Negative Negative - 4(70) +++ mg/dL [facility] Blood, UA Negative Negative - 50 Fuad/mcL [facility] Clarity, UA Clear [facility] Color, UA Yellow [facility] Glucose, UA Negative Negative - 2000(110) ++++ mg/dL [facility] Interpretation and review of laboratory results Abnormal [facility] Ketones, UA Positive Negative - 160(16) ++++ mg/dL [facility] Comment on above: 15 Leukocytes, UA Negative Negative - 500+++ Sandie/mcL [facility] Nitrite, UA Negative Negative - Positive [facility] pH, UA 6 5 - 9 [facility] Protein, UA Positive Negative - 2000(20) ++++ mg/dL [facility] Comment on above: 30 Spec Grav, UA 1.025 1 - 1.03 [facility] Urobilinogen, UA 1.0 0.2 - 12 mg/dL [facility] ALL CBC WITH AUTO DIFFon BASOPHILS ABSOLUTE AUTO 0 [facility] Basophils/100 WBC (Bld) 0.4 % 0.2 - 2.0 % [facility] Eosinophils/100 WBC (Bld) 0.4 % Low 0.9 - 7.0 % [facility] Erythrocyte distribution width (RBC) [Ratio] 12.4 % 11.0 - 15.0 % [facility] Hematocrit (Bld) [Volume fraction] 34.2 % Low 36.0 - 48.0 % [facility] Hemoglobin (Bld) [Mass/Vol] 11.9 g/dL Low 12.0 - 16.0 g/dL [facility] IMMATURE GRANULOCYTES ABS AUTO 0.17 High [facility] Immature granulocytes/100 WBC (Bld) 1.5 % High 0.0 - 0.5 % [facility] Interpretation and review of laboratory results Abnormal [facility] LYMPHOCYTES ABSOLUTE AUTO 2.1 [facility] Lymphocytes/100 WBC (Bld) 18.7 % Low 20.5 - 60.0 % [facility] MCH (RBC) [Entitic mass] 31.2 pg 26.7 - 34.0 pg [facility] MCHC (RBC) [Mass/Vol] 34.8 g/dL 29.9 - 35.2 g/dL [facility] MCV (RBC) [Entitic vol] 89.5 fL 81.0 - 99.0 fL [facility] MONOCYTES ABSOLUTE AUTO 0.6 [facility] Monocytes/100 WBC (Bld) 4.8 % 1.7 - 12.0 % [facility] NEUTROPHILS ABSOLUTE AUTO 8.4 High [facility] Neutrophils/100 WBC (Bld) 74.2 % 43.0 - 75.0 % [facility] Platelet mean volume (Bld) [Entitic vol] 9.9 fL 9.5 - 13.5 fL [facility] TBH EO # 0.1 [facility] PLT 148 Low [facility] RBC 3.82 Low [facility] WBC 11.4 High [facility] Urinalysis macro (dipstick) panel (U)on 08-20-2024 Bilirubin, UA Negative Negative - 4(70) +++ mg/dL [facility] Blood, UA Negative Negative - 50 Fuad/mcL [facility] Clarity, UA Clear [facility] Color, UA Yellow [facility] Glucose, UA Negative Negative - 2000(110) ++++ mg/dL [facility] Interpretation and review of laboratory results Normal [facility] Ketones, UA Negative Negative - 160(16) ++++ mg/dL [facility] Leukocytes, UA Negative Negative - 500+++ Sandie/mcL [facility] Nitrite, UA Negative Negative - Positive [facility] pH, UA 7 5 - 9 [facility] Protein, UA Negative Negative - 1999(20) ++++ mg/dL [facility] Spec Grav, UA 1.02 1 - 1.03 [facility] Urobilinogen, UA 0.2 0.2 - 12 mg/dL [facility] US OB LIMITED 1+ FETUSESon 0 [...] II, MD, PHD at 24-Jul-2024 12:32:57 AM [facility] Normal Not Available Comment on above: Order Comment: US OB INCOMPLETE ANATOMY W US OB TRANSVAGINAL Estimated Date of Delivery: 11/09/24 Gestational Age as of 06/26/2024: 20w4d Urinalysis macro (dipstick) panel (U)on 07-23-2024 Bilirubin, UA Negative Negative - 4(70) +++ mg/dL [facility] Blood, UA Negative Negative - 50 Fuad/mcL [facility] Clarity, UA Clear [facility] Color, UA Yellow [facility] Glucose, UA Negative Negative - 2000(110) ++++ mg/dL [facility] Interpretation and review of laboratory results Normal [facility] Ketones, UA Negative Negative - 160(16) ++++ mg/dL [facility] Leukocytes, UA Negative Negative - 500+++ Sandie/mcL [facility] Nitrite, UA Negative Negative - Positive [facility] pH, UA 6 5 - 9 [facility] Protein, UA Negative Negative - 1999(20) ++++ mg/dL [facility] Spec Grav, UA 1.02 1 - 1.03 [facility] Urobilinogen, UA 0.2 0.2 - 12 mg/dL [facility] AFP, SERUM, OPEN SPINA BIFID Aon 07-11-2024 AFP MOM 2.63 . [facility] AFP VALUE 133.2 ng/mL . [facility] COMMENT: Comment . [facility] Comment on above: Ronit Moncada , Ph.D., [facility] Director References: Available Upon Request. Multiples Of Median Cutoffs For AFP Elevations Giles 2.5 Black 2.8 IDD 2.0 Twins 4.5 Abbreviation Definitions IDD - Insulin Dep Diabetes OSBR - Open Spina Bifida Risk For further inquiries contact [employer] [facility] at [phone]. This test was developed and its performance characteristics determined by [employer]. It has not been cleared or approved by the Food and Drug Administration. Performed at: [facility] [employer] [address] [place], [place] [id number] [employer] And Scenery Maker: Darion Albrecht [facility], Phone: [phone] GEST. AGE ON COLLECTION DATE 18.0 . weeks [facility] GESTAT. AGE BASED ON As provided . [facility] Comment on above: Recalculations are n ot recommended when gestational dating by LMP and ultrasound are within 10 days. INSULIN DEP DIABETES No . [facility] INTERPRETATION Comment . [facility] Comment on above: Interpretation: Scr een Positive for OSB This patient is at [...] Interpretation and review of laboratory results Abnormal [facility] [age] [facility] MULTIPLE GESTATION No . [facility] OSBR RISK 1 IN 225 . [facility] RACE . [facility] RESULTS Report . [facility] TEST RESULTS: Positive Abnormal . [facility] WEIGHT 119 . lbs [facility] N N ULTRASOUND [id number] [phone] N 1 119 N N N N N White/ [facility] Urinalysis macro (dipstick) panel (U)on 06-26-2024 Bilirubin, UA Negative Negative - 4(70) +++ mg/dL [facility] Blood, UA Negative Negative - 50 Fuad/mcL [facility] Clarity, UA Clear [facility] Color, UA Yellow [facility] Glucose, UA Negative Negative - 2000(110) ++++ mg/dL [facility] Interpretation and review of laboratory results Normal [facility] Ketones, UA Negative Negative - 160(16) ++++ mg/dL [facility] Leukocytes, UA Negative Negative - 500+++ Sandie/mcL [facility] Nitrite, UA Negative Negative - Positive [facility] pH, UA 6 5 - 9 [facility] Protein, UA Negative Negative - 2000(20) ++++ mg/dL [facility] Spec Grav, UA 1.025 1 - 1.03 [facility] Urobilinogen, UA 0.2 0.2 - 12 mg/dL [facility] No Panel InformationOrdered By: Radiologist Radiology on 06-23-2024 [facility] Work Phone: No Panel Informationon 06-23 Radiology Study observation (narrative) [facility] US OB ANATOMYon 06-23-2024 [place] [address] Ultrasound Report Signed Patient: GIANCARLO CELAYA MR#: [id number] : 1995 Acct:[id number] Age/Sex: 28 / F ADM Date: 06/22/24 Loc: US Attending Dr: Cheryl Baugh Ordering Physician: Cheryl Baugh Date of Service: 06/22/24 Procedure(s): US OB anatomy Accession Number(s): [id number] cc: Cheryl Lipscomb; [place] [address] Patient Name: GIANCARLO CELAYA MRN: [facility]:[id number] date: 1995 Sex: F Assigned Patient Location: US Current Patient Location: Accession/Order Number: [id number] Exam Date: 06/22/2024 17:16 Report Date: 06/23/2024 [...] Signed By: 06/23/24 0800 DD/ 0757 TD/TT: Film Recordist: [facility] Radiology, Radiologist, - 06/23/[address] [address] Ultrasound Report Signed Patient: GIANCARLO CELAYA MR#: [id number] : 1995 Acct:[id number] Age/Sex: 28 / F ADM Date: 06/22/24 Loc: US Attending Dr: Cheryl Baugh Ordering Physician: Cheryl Baugh Date of Service: 06/22/24 Procedure(s): US OB anatomy Accession Number(s): [id number] cc: Cheryl Baugh; EVELY[place] [phone] Patient Name: GIANCARLO CELAYA MRN: [facility]:[id number] date: 1995 Sex: F Assigned Patient Location: US Current Patient Location: Accession/Order Number: [id number] Exam Date: 06/22/2024 17:16 Report Date: 06/23/2024 07:57 At the request of: CEHRYL BAUGH Procedure: US OB anatomy EXAMINATION: US [...] Signed By: 06/23/24 0800 DD/ 0757 TD/TT: Film Recordist: [facility] OB CERVICAL LENGTHon 06-09 [place] [address] Ultrasound Report Signed Patient: GIANCARLO CELAYA MR#: [id number] : 1995 Acct:[id number] Age/Sex: 28 / F ADM Date: 06/22/24 Loc: US Attending Dr: Cheryl Baugh Ordering Physician: Cheryl Baugh Date of Service: 06/22/24 Procedure(s): US OB cervical length Accession Number(s): [id number] cc: Cheryl Baugh; [place] [address] Patient Name: GIANCARLO CELAYA MRN: [facility]:[id number] date: 1995 Sex: F Assigned Patient Location: US Current Patient Location: Accession/Order Number: [id number] Exam Date: 06/22/2024 17:16 Report Date: 06/23/2024 [...] Signed By: 06/23/24 0800 DD/ 0757 TD/TT: Film Recordist: [facility] Radiology, Radiologist, MD - 06/23/[address] [address] Ultrasound Report Signed Patient: GIANCARLO CELAYA MR#: [id number] : 1995 Acct:[id number] Age/Sex: 28 / F ADM Date: 06/22/24 Loc: US Attending Dr: Cheryl Baugh Ordering Physician: Cheryl Baugh Date of Service: 06/22/24 Procedure(s): US OB cervical length Accession Number(s): [id number] cc: Cheryl Baugh; EVELYN V[place] [phone] Patient Name: GIANCARLO CELAYA MRN: [facility]:[id number] date: 1995 Sex: F Assigned Patient Location: US Current Patient Location: Accession/Order Number: [id number] Exam Date: 06/22/2024 17:16 Report Date: 06/23/2024 [...] Signed By: 06/23/24 0800 DD/ 0757 TD/TT: Film Recordist: [facility] IGP,APTIMA HPV,AGE GDLNon AGE GDLN ACOG TESTING Note . [facility] Comment on above: TESTS RESULT FLAG UN ITS REF RANGE LAB Clinician Provided Cytology Information Source.............Cervix No. of containers..01 ThinPrep Vial Age Algo ACOG Jessica... -7 06 FLAG LEGEND: L-Low Normal,H-High Normal,LL-Alert Low,HH-Alert High <-Panic Low,>-Panic High,A-Abnormal,AA-Critical Abnormal Performed at: 01 [facility] [place] [address] Bri Keenan MD, IGP, RFX APTIMA HPV ASCU Note . [facility] Comment on above: TESTS RESULT FLAG UN ITS REF RANGE LAB DIAGNOSIS: 02 NEGATIVE FOR INTRAEPITHELIAL LESION OR MALIGNANCY. Specimen adequacy: 02 Satisfactory for evaluation. No endocervical component is identified. Performed by: 02 Ramin Farrell, Plate Molder ([facility]) . 02 Note: Note 02 The Pap [...] Low,>-Panic High,A-Abnormal,AA-Critical Abnormal Performed at: [address] [facility] [address] [place] [address] Bri Keenan MD, Performed at: =G - [facility] [address] [id number] Prop And Scenery Maker: Bri Keenan MD, Phone: [phone] Performed at: - [facility] [id number] Prop And Scenery Maker: Bri Keenan MD, Phone: [phone] SPATULA-ALONE CERVIX [facility] Urinalysis macro (dipstick) panel (U)on 05-28-2024 Bilirubin, UA Negative Negative - 4(70) +++ mg/dL [facility] Blood, UA Negative Negative - 50 Fuad/mcL [facility] Clarity, UA Clear [facility] Color, UA Yellow [facility] Glucose, UA Negative Negative - 1999(110) ++++ mg/dL [facility] Interpretation and review of laboratory results Normal [facility] Ketones, UA Negative Negative - 160(16) ++++ mg/dL [facility] Leukocytes, UA Negative Negative - 500+++ Sandie/mcL [facility] Nitrite, UA Negative Negative - Positive [facility] pH, UA 5.5 5 - 9 [facility] Protein, UA Negative Negative - 1999(20) ++++ mg/dL [facility] Spec Grav, UA 1.02 1 - 1.03 [facility] Urobilinogen, UA 1.0 0.2 - 12 mg/dL [facility] Urinalysis macro (dipstick) panel (U)on 04-30-2024 Bilirubin, UA Negative Negative - 4(70) +++ mg/dL [facility] Blood, UA Negative Negative - 50 Fuad/mcL [facility] Clarity, UA Clear [facility] Color, UA Yellow [facility] Glucose, UA Negative Negative - 1999(110) ++++ mg/dL [facility] Interpretation and review of laboratory results Abnormal [facility] Ketones, UA Positive Negative - 160(16) ++++ mg/dL [facility] Comment on above: trace Leukocytes, UA Negative Negative - 500+++ Sandie/mcL [facility] Nitrite, UA Negative Negative - Positive [facility] pH, UA 5.5 5 - 9 [facility] Protein, UA Negative Negative - 1999(20) ++++ mg/dL [facility] Spec Grav, UA 1.025 1 - 1.03 [facility] Urobilinogen, UA 0.2 0.2 - 12 mg/dL [facility] Basophils Auto (Bld) [#/Vol] on 04-16-2024 Basophils (Bld) [#/Vol] Automated basophil count 0.0-0.1 [facility] Basophils/100 WBC Auto (Bld) on 04-16-2024 Basophils/100 WBC (Bld) Automated basophil % 0.2-2.0 [facility] Buprenorphine [Presence] in Urineon 04-16-2024 Buprenorphine Ql (U) Buprenorphine [Presence] in Urine NEGATIVE [facility] Comment on above: DRUG CLASS TEST [...] Automated eosinophil % Low 0.9-7.0 [facility] Erythrocyte distribution wid th Auto (RBC) [Ratio]on 04-16-2024 Erythrocyte distribution width (RBC) [Ratio] Erythrocyte distribution width [Ratio] by Automated count 11.0-15.0 [facility] Glucose mean value [Mass/vol ume] in Blood Estimated from glycated hemoglobinon 04-16-2024 Average glucose Estimated from glycated hemoglobin (Bld) [Mass/Vol] Glucose mean value [Mass/volume] in Blood Estimated from glycated hemoglobin [facility] HBV surface Ag IA Qlon 04-16 Hepatitis B Surface Antigen Negative Negative [facility] Comment on above: Performed at: [facility] - [facility] [place] [id number] Director: Shedlon Polo PhD, Phone: [phone] HIV 1 and HIV-2 antibody ass ay with HIV-1 p24 antigen detectionon 04-16-2024 HIV 1+2 Ab+HIV1 p24 Ag IA Ql HIV 1 and HIV-2 antibody assay with HIV-1 p24 antigen detection Non Reactive [facility] Comment on above: HIV-1/HIV-2 antibodi es and HIV-1 p24 antigen were NOTdetected. There is no laboratory evidence of HIV infection.HIV NegativePerformed at: [facility] - [facility] [address] [id number] Director: Sheldon Polo PhD, Phone: [phone] Hematocrit Auto (Bld) [Volum e fraction]on 04-16-2024 Hematocrit (Bld) [Volume fraction] Hematocrit [Volume Fraction] of Blood by Automated count 36.0-48.0 [facility] Hemoglobin [Mass/volume] in Bloodon 04-16-2024 Hemoglobin (Bld) [Mass/Vol] Hemoglobin [Mass/volume] in Blood 12.0-16.0 [facility] Laboratory - Drug toxicology on 04-16-2024 Amphetamines Ql (U) Negative NEGATIVE [facility] Benzodiazepines Ql (U) Negative NEGATIVE [facility] Cocaine Ql (U) Negative NEGATIVE [facility] Opiates Ql (U) Negative NEGATIVE [facility] Phencyclidine Ql (U) Negative NEGATIVE [facility] Laboratory - Hematology and Cell countson 04-16-2024 HbA1c (Bld) [Mass fraction] 4.8 % 4.5-6.2 [facility] Comment on above: ADA RECOMMENDED LIMI T 4.0 - 6.0ADA THERAPEUTIC TARGET < 7.0ACTION SUGGESTED> 7.0 Immature granulocytes/100 WBC (Bld) 0.6 % High 0.0-0.5 [facility] Leukocytes [#/volume] correc leonidas for nucleated erythrocytes in Blood by Automated counon 04-16-2024 WBC corrected for nucl RBC Auto (Bld) [#/Vol] Leukocytes [#/volume] corrected for nucleated erythrocytes in Blood by Automated coun 4.0-11.0 [facility] Lymphocytes Auto (Bld) [#/Vo l]on 04-16-2024 Lymphocytes (Bld) [#/Vol] Lymphocytes [#/volume] in Blood by Automated count 1.2-3.8 [facility] Lymphocytes/100 WBC Auto (Bl d)on 04-16-2024 Lymphocytes/100 WBC (Bld) Lymphocytes/100 leukocytes in Blood by Automated count Low 20.5-60.0 [facility] MCH Auto (RBC) [Entitic mass ]on 04-16-2024 MCH (RBC) [Entitic mass] MCH [Entitic mass] by Automated count 26.7-34.0 [facility] MCHC Auto (RBC) [Mass/Vol]on 04-16-2024 MCHC (RBC) [Mass/Vol] MCHC [Mass/volume] by Automated count High 29.9-35.2 [facility] MCV Auto (RBC) [Entitic vol] on 04-16-2024 MCV (RBC) [Entitic vol] MCV [Entitic volume] by Automated count 81.0-99.0 [facility] MLR HEMOGLOBIN A1Con 024 Glucose [Mass/Vol] 91 mg/dL [facility] HbA1c (Bld) [Mass fraction] 4.8 % 4.5 - 6.2 % [facility] Comment on above: ADA RECOMMENDED LIMI T 4.0 - 6.0 ADA THERAPEUTIC TARGET < 7.0 ACTION SUGGESTED > 7.0 [facility] Methadone [Presence] in Urin e by Screen methodon 04-16-2024 Methadone Screen Ql (U) Methadone [Presence] in Urine by Screen method NEGATIVE [facility] Monocytes Auto (Bld) [#/Vol] on 04-16-2024 Monocytes (Bld) [#/Vol] Automated blood monocyte count 0.3-0.8 [facility] Monocytes/100 WBC Auto (Bld) on 04-16-2024 Monocytes/100 WBC (Bld) Automated monocyte % 1.7-12.0 [facility] Neutrophils Auto (Bld) [#/Vo l]on 04-16-2024 Neutrophils (Bld) [#/Vol] Neutrophils [#/volume] in Blood by Automated count High 1.4-6.5 [facility] Neutrophils/100 WBC Auto (Bl d)on 04-16-2024 Neutrophils/100 WBC (Bld) Automated neutrophil % 43.0-75.0 [facility] No Panel Informationon 04-16 Eosinophils # (Auto) 0.1 10 3/uL 0.0-0.7 [facility] Hepatitis C Interpretation Comment . [facility] Comment on above: Not infected with HC V unless early or acute infection issuspected (which may be delayed in an immunocompromisedindividual), or other evidence exists to indicate HCVinfection. Immature Granulocyte # (Auto) 0.05 10 3/uL High 0.00-0.03 [facility] RPR Quantitative Confirmation Non Reactive titer NonRea<1:1 [facility] Comment on above: Please Note: This te st does not meet current guidelines forscreening and diagnosis of syphilis. This test isintended for following treatment response in patients beingtreated for syphilis infection. To screen for syphilisinfection, a reflex cascade that includes both RPR and atreponema-specific assay should be utilized, such asTreponema pallidum (Syphilis) Screening [place] (290463) orRapid Plasma Reagin (RPR) Test With Reflex to QuantitativeRPR and Confirmatory Treponema pallidum Antibodies(546341).Performed at: [facility] [id number] Director: Sheldon Polo PhD, Phone: [phone] Rubella IgG Antibody 7.20 index Immune >0.99 [facility] Comment on above: Non-immune <0.90 Equ ivocal 0.90 - 0.99 Immune >0.99 Urine Barbiturates Screen Negative NEGATIVE [facility] Urine Marijuana (THC) Screen Negative NEGATIVE [facility] Urine Methamphetamines Screen Negative NEGATIVE [facility] Platelet mean volume Auto (B ld) [Entitic vol]on 04-16-2024 Platelet mean volume (Bld) [Entitic vol] Platelet mean volume [Entitic volume] in Blood by Automated count 9.5-13.5 [facility] Platelets Auto (Bld) [#/Vol] on 04-16-2024 Platelets (Bld) [#/Vol] Platelets [#/volume] in Blood by Automated count 150-450 [facility] RBC Auto (Bld) [#/Vol]on RBC (Bld) [#/Vol] Erythrocytes [#/volume] in Blood by Automated count 4.20-5.40 [facility] Serum or plasma hepatitis C virus antibody signal/cutoff ratio by immunoassay (relation 04-16-2024 HCV Ab Signal/Cutoff IA [Rel units/Vol] Serum or plasma hepatitis C virus antibody signal/cutoff ratio by immunoassay (relati Non Reactive [facility] Urine tricyclic antidepressa nt measurementon 04-16-2024 Tricyclic antidepressants (U) [Mass/Vol] Urine tricyclic antidepressant measurement NEGATIVE [facility] oxyCODONE+oxyMORphone [Prese nce] in Urine by Screen methodon 04-16-2024 oxyCODONE+oxyMORphone Screen Ql (U) oxyCODONE+oxyMORphone [Presence] in Urine by Screen method NEGATIVE [facility] BOX TESTon 04-13-2024 BOX TEST SENT OUT 04/13/2024 [facility] [address] [facility] [address] [facility] HCG ( test) Ql (U)o n 03-23-2024 Interpretation and review of laboratory results Abnormal [facility] Preg Test, Ur Positive Negative [facility] Urinalysis macro (dipstick) panel (U)on 03-23-2024 Bilirubin, UA Negative Negative - 4(70) +++ mg/dL [facility] Blood, UA Negative Negative - 50 Fuad/mcL [facility] Clarity, UA Clear [facility] Color, UA Yellow [facility] Glucose, UA Negative Negative - 2000(110) ++++ mg/dL [facility] Interpretation and review of laboratory results Abnormal [facility] Ketones, UA Positive Negative - 160(16) ++++ mg/dL [facility] Leukocytes, UA Negative Negative - 500+++ Sandie/mcL [facility] Nitrite, UA Negative Negative - Positive [facility] pH, UA 5.5 5 - 9 [facility] Protein, UA Negative Negative - 2000(20) ++++ mg/dL [facility] Spec Grav, UA 1.03 1 - 1.03 [facility] Urobilinogen, UA 0.2 0.2 - 12 mg/dL [facility] Laboratory - Chemistry and C hemistry - challengeon 03-17-2024 Bilirubin Ql (U) Negative NEGATIVE [facility] Glucose (U) [Mass/Vol] Negative NEGATIVE [facility] Ketones Ql (U) Negative NEGATIVE [facility] pH (U) 7.0 [pH] 5.0-9.0 [facility] Specific gravity (U) [Rel density] 1.020 1.005-1.025 [facility] Urobilinogen Qn (U) 1.0 {Chanel'U}/dL 0.2-1.0 [facility] Laboratory - Specimen inform ationon 03-17-2024 Appearance (U) CLEAR CLEAR [facility] Color (U) LT. YELLOW YELLOW [facility] Laboratory - Urinalysison Leukocyte esterase Test strip Ql (U) TRACE Abnormal NEGATIVE [facility] Mucus Ql (Urine sed) TRACE Abnormal NONE SEEN [facility] Nitrite Ql (U) Negative NEGATIVE [facility] Protein Ql (U) Negative NEG/TRACE [facility] No Panel Informationon 03-17 Human Chorionic Gonadotropin, Quant 83579 mIU/mL [facility] Comment on above: 5-50 0.2-1 [id number] 0 1-2 HZUBY017-0,000 2-3 PLCYF395-32,000 3-4 WEEKS1,000-50,000 4-5 WEEKS10,000-100,000 5-6 WEEKS15,000-200,000 6-8 WEEKS10,000-100,000 2-3 MONTHS Miscellaneous Test Comment See comment [facility] Comment on above: Specimen Source: UCC - Urine,Clean Catch - Urine CC - 200.100 Urine Bacteria MODERATE #/HPF Abnormal NONE SEEN [facility] Urine Culture Reflexed YES [facility] Urine Culture Result 1 \R\ Urine Culture, Routine [facility] Urine Microscopic Review YES [facility] Urine Occult Blood MODERATE Abnormal NEGATIVE [facility] Urine Other Casts NONE SEEN #/LPF NONE SEEN [place] Urine Other Crystals None Seen #/HPF None Seen [facility] Urine RBC 2-5 #/HPF Abnormal 0-2 [facility] Urine Squamous Epithelial Cells MODERATE #/LPF Abnormal NONE/RARE [facility] Urine WBC 0-2 #/HPF Abnormal NONE SEEN [facility] HCG ( test) Ql (U)o n 03-14-2024 Interpretation and review of laboratory results Abnormal [facility] Preg Test, Ur Positive Negative [facility] Urinalysis macro (dipstick) panel (U)on 03-14-2024 Bilirubin, UA Positive Negative - 4(70) +++ mg/dL [facility] Comment on above: small Blood, UA Positive Negative - 50 Fuad/mcL [facility] Comment on above: moderate Clarity, UA Clear [facility] Color, UA Yellow [facility] Glucose, UA Negative Negative - 1999(110) ++++ mg/dL [facility] Interpretation and review of laboratory results Abnormal [facility] Ketones, UA Positive Negative - 160(16) ++++ mg/dL [facility] Comment on above: 40 Leukocytes, UA Negative Negative - 500+++ Sandie/mcL [facility] Nitrite, UA Negative Negative - Positive [facility] pH, UA 5.5 5 - 9 [facility] Protein, UA Negative Negative - 1999(20) ++++ mg/dL [facility] Spec Grav, UA 1.03 1 - 1.03 [facility] Urobilinogen, UA 0.2 0.2 - 12 mg/dL [facility] No Panel Informationon 03-08 Human Chorionic Gonadotropin, Quant 2190 mIU/mL [facility] Comment on above: 5-50 0.2-1 [id number] 0 1-2 OBAPM145-6,000 2-3 HXGIE074-56,000 3-4 WEEKS1,000-50,000 4-5 WEEKS10,000-100,000 5-6 WEEKS15,000-200,000 6-8 WEEKS10,000-100,000 2-3 MONTHS [facility] PREG QUANT HCGon 024 HCG QUANTITATIVE 2190 mIU/mL [facility] Comment on above: 5-50 0.2-1 WEEK 50-500 1-2 WEEKS 100-5,000 2-3 WEEKS 500-10,000 3-4 WEEKS 1,000-50,000 4-5 WEEKS 10,000-100,000 5-6 WEEKS 15,000-200,000 6-8 WEEKS 10,000-100,000 2-3 MONTHS [facility] No Panel Informationon 03-02 Human Chorionic Gonadotropin, Quant 67 mIU/mL [facility] Comment on above: 5-50 0.2-1 [id number] 0 1-2 WZYAR671-0,000 2-3 GLWLT015-79,000 3-4 WEEKS1,000-50,000 4-5 WEEKS10,000-100,000 5-6 WEEKS15,000-200,000 6-8 WEEKS10,000-100,000 2-3 MONTHS No Panel Informationon 02-28 Human Chorionic Gonadotropin, Quant 30 mIU/mL [facility] Comment on above: 5-50 0.2-1 DIQK49-96 0 1-2 POZGP849-7,000 2-3 YACSH321-87,000 3-4 WEEKS1,000-50,000 4-5 WEEKS10,000-100,000 5-6 WEEKS15,000-200,000 6-8 WEEKS10,000-100,000 2-3 MONTHS Basophils Auto (Bld) [#/Vol] on 02-27-2024 Basophils (Bld) [#/Vol] Automated basophil count 0.0-0.1 [facility] Basophils/100 WBC Auto (Bld) on 02-27-2024 Basophils/100 WBC (Bld) Automated basophil % 0.2-2.0 [facility] Eosinophils/100 WBC Auto (Bl d)on 02-27-2024 Eosinophils/100 WBC (Bld) Automated eosinophil % Low 0.9-7.0 [facility] Erythrocyte distribution wid th Auto (RBC) [Ratio]on 02-27-2024 Erythrocyte distribution width (RBC) [Ratio] Erythrocyte distribution width [Ratio] by Automated count 11.0-15.0 [facility] Estimated glomerular filtrat ion rate (GFR) non- Americanon 02-27-2024 GFR/1.73 sq M.predicted among non-blacks MDRD (S/P/Bld) [Vol rate/Area] Estimated glomerular filtration rate (GFR) non- >=60 mL/min/1.73 m 2 [facility] HCG ( test) IA.marcelai d Ql (U)on 02-27-2024 HCG ( test) Ql (U) Urine human chorionic gonadotropin (hCG) detection by immunoassay Abnormal NEGATIVE [facility] Hematocrit Auto (Bld) [Volum e fraction]on 02-27-2024 Hematocrit (Bld) [Volume fraction] Hematocrit [Volume Fraction] of Blood by Automated count 36.0-48.0 [facility] Hemoglobin [Mass/volume] in Bloodon 02-27-2024 Hemoglobin (Bld) [Mass/Vol] Hemoglobin [Mass/volume] in Blood 12.0-16.0 [facility] Laboratory - Chemistry and C hemistry - challengeon 02-27-2024 Calcium [Mass/Vol] 9.4 mg/dL 8.5-10.1 [facility] Chloride [Moles/Vol] 104 mmol/L 98-107 [facility] CO2 [Moles/Vol] 22.6 mmol/L 21.0-32.0 [facility] Creatinine [Mass/Vol] 0.79 mg/dL 0.55-1.02 [facility] GFR/1.73 sq M.predicted MDRD (S/P/Bld) [Vol rate/Area] mL/min/{1.73_m2} >=60 mL/min/1.73 m 2 [facility] Glucose [Mass/Vol] 88 mg/dL 74-106 [facility] Potassium [Moles/Vol] 3.4 mmol/L Low 3.5-5.1 [facility] Sodium [Moles/Vol] 139 mmol/L 136-145 [facility] Urea nitrogen [Mass/Vol] 10.0 mg/dL 7.0-18.0 [facility] Urea nitrogen/Creatinine [Mass ratio] 12.7 mg/mg [facility] Bilirubin Ql (U) Negative NEGATIVE [facility] Glucose (U) [Mass/Vol] Negative NEGATIVE [facility] Ketones Ql (U) 15 mg/dL Abnormal NEGATIVE [facility] pH (U) 6.0 [pH] 5.0-9.0 [facility] Specific gravity (U) [Rel density] 1.025 1.005-1.025 [facility] Urobilinogen Qn (U) 0.2 {Chanel'U}/dL 0.2-1.0 [facility] Laboratory - Hematology and Cell countson 02-27-2024 Immature granulocytes/100 WBC (Bld) 0.1 % 0.0-0.5 [facility] Laboratory - Specimen inform ationon 02-27-2024 Appearance (U) CLEAR CLEAR [facility] Color (U) LT. YELLOW YELLOW [facility] Laboratory - Urinalysison Leukocyte esterase Test strip Ql (U) Negative NEGATIVE [facility] Nitrite Ql (U) Negative NEGATIVE [facility] Protein Ql (U) Negative NEG/TRACE [facility] Leukocytes [#/volume] correc leonidas for nucleated erythrocytes in Blood by Automated counon 02-27-2024 WBC corrected for nucl RBC Auto (Bld) [#/Vol] Leukocytes [#/volume] corrected for nucleated erythrocytes in Blood by Automated coun 4.0-11.0 [facility] Lymphocytes Auto (Bld) [#/Vo l]on 02-27-2024 Lymphocytes (Bld) [#/Vol] Lymphocytes [#/volume] in Blood by Automated count 1.2-3.8 [facility] Lymphocytes/100 WBC Auto (Bl d)on 02-27-2024 Lymphocytes/100 WBC (Bld) Lymphocytes/100 leukocytes in Blood by Automated count 20.5-60.0 [facility] MCH Auto (RBC) [Entitic mass ]on 02-27-2024 MCH (RBC) [Entitic mass] MCH [Entitic mass] by Automated count 26.7-34.0 [facility] MCHC Auto (RBC) [Mass/Vol]on 02-27-2024 MCHC (RBC) [Mass/Vol] MCHC [Mass/volume] by Automated count High 29.9-35.2 [facility] MCV Auto (RBC) [Entitic vol] on 02-27-2024 MCV (RBC) [Entitic vol] MCV [Entitic volume] by Automated count 81.0-99.0 [facility] Monocytes Auto (Bld) [#/Vol] on 02-27-2024 Monocytes (Bld) [#/Vol] Automated blood monocyte count 0.3-0.8 [facility] Monocytes/100 WBC Auto (Bld) on 02-27-2024 Monocytes/100 WBC (Bld) Automated monocyte % 1.7-12.0 [facility] Neutrophils Auto (Bld) [#/Vo l]on 02-27-2024 Neutrophils (Bld) [#/Vol] Neutrophils [#/volume] in Blood by Automated count 1.4-6.5 [facility] Neutrophils/100 WBC Auto (Bl d)on 02-27-2024 Neutrophils/100 WBC (Bld) Automated neutrophil % 43.0-75.0 [facility] No Panel Informationon 02-26 Eosinophils # (Auto) 0.1 10 3/uL 0.0-0.7 [facility] Human Chorionic Gonadotropin, Quant 16 mIU/mL [facility] Comment on above: 5-50 0.2-1 [id number] 0 1-2 GTKJX659-4,000 2-3 HXFVD174-46,000 3-4 WEEKS1,000-50,000 4-5 WEEKS10,000-100,000 5-6 WEEKS15,000-200,000 6-8 WEEKS10,000-100,000 2-3 MONTHS Immature Granulocyte # (Auto) 0.01 10 3/uL 0.00-0.03 [facility] Urine Microscopic Review NO [facility] Urine Occult Blood Negative NEGATIVE [facility] Platelet mean volume Auto (B ld) [Entitic vol]on 02-27-2024 Platelet mean volume (Bld) [Entitic vol] Platelet mean volume [Entitic volume] in Blood by Automated count 9.5-13.5 [facility] Platelets Auto (Bld) [#/Vol] on 02-27-2024 Platelets (Bld) [#/Vol] Platelets [#/volume] in Blood by Automated count 150-450 [facility] RBC Auto (Bld) [#/Vol]on RBC (Bld) [#/Vol] Erythrocytes [#/volume] in Blood by Automated count 4.20-5.40 [facility] Serum or plasma anion gap de terminationon 02-27-2024 Anion gap [Moles/Vol] Serum or plasma an ion gap determination [facility] No Panel Informationon 02-20 Human Chorionic Gonadotropin, Quant <1 mIU/mL [facility] Comment on above: 5-50 0.2-1 VBNX78-59 0 1-2 XIGEF731-2,000 2-3 CDSRY627-70,000 3-4 WEEKS1,000-50,000 4-5 WEEKS10,000-100,000 5-6 WEEKS15,000-200,000 6-8 WEEKS10,000-100,000 2-3 MONTHS URETHRITIS/DISCHARGE PLUS VA GINITIS (HTRX)on 02-10-2024 ATOPOBIUM VAGINAE 0.000 [facility] ATOPOBIUM VAGINAE Not detected [facility] BVAB 2,3 (BACTERIAL VAGINOSIS ASSOCIATED BACTERIA 2, 3); MOBILUNCUS SPP 0.000 [facility] BVAB 2,3 (BACTERIAL VAGINOSIS ASSOCIATED BACTERIA 2, 3); MOBILUNCUS SPP Not detected [facility] ALICIA ALBICANS, PARAPSILOSIS, TROPICALIS 0.000 [facility] ALICIA ALBICANS, PARAPSILOSIS, TROPICALIS Not detected [facility] ALICIA GLABRATA 0.000 [facility] ALICIA GLABRATA Not detected [facility] ALICIA KRUSEI 0.000 [facility] ALICIA KRUSEI Not detected [facility] CHLAMYDIA TRACHOMATIS 0.000 [facility] CHLAMYDIA TRACHOMATIS Not detected N [facility] GARDNERELLA VAGINALIS 0.000 [facility] GARDNERELLA VAGINALIS Not detected N [facility] MEGASPHAERA (TYPES 1, 2) 0.000 [facility] MEGASPHAERA (TYPES 1, 2) Not detected [facility] MYCOPLASMA GENITALIUM 0.000 [facility] MYCOPLASMA GENITALIUM Not detected N [facility] NEISSERIA GONORRHOEAE 0.000 [facility] NEISSERIA GONORRHOEAE Not detected N [facility] TRICHOMONAS VAGINALIS 0.000 [facility] TRICHOMONAS VAGINALIS Not detected N [facility] HCG ( test) Ql (U)o n 02-08-2024 Interpretation and review of laboratory results Normal [facility] Preg Test, Ur Negative [facility] Urinalysis macro (dipstick) panel (U)on 02-08-2024 Bilirubin, UA Negative Negative - 4(70) +++ mg/dL [facility] Blood, UA Negative Negative - 50 Fuad/mcL [facility] Clarity, UA Clear [facility] Color, UA Yellow [facility] Glucose, UA Negative Negative - 1999(110) ++++ mg/dL [facility] Interpretation and review of laboratory results Normal [facility] Ketones, UA Negative Negative - 160(16) ++++ mg/dL [facility] Leukocytes, UA Negative Negative - 500+++ Sandie/mcL [facility] Nitrite, UA Negative Negative - Positive [facility] pH, UA 7.5 5 - 9 [facility] Protein, UA Negative Negative - 1999(20) ++++ mg/dL [facility] Spec Grav, UA 1.020 1 - 1.03 [facility] Urobilinogen, UA 0.2 0.2 - 12 mg/dL [facility] Vaginitis Plus (VG+)on 02-01 Atopobium Vaginae Low - 0 Normal . [facility] Comment on above: Result Comment: This test was developed and its performance characteristics determined by [facility]. It has not been cleared or approved by the Food and Drug Administration. Performed By: #### V AGINITIS+ #### [facility] , BVAB2 Low - 0 Normal . [facility] Comment on above: Result Comment: This test was developed and its performance characteristics determined by [facility]. It has not been cleared or approved by the Food and Drug Administration. Performed By: #### V AGINITIS+ #### [facility] , Alicia Albicans, ELDON Positive Critically abnormal Negative [facility] Comment on above: Result Comment: This test was developed and its performance characteristics determined by [facility]. It has not been cleared or approved by the Food and Drug Administration. Performed By: #### V AGINITIS+ #### [facility] , Alicia Glabrata, ELDON Negative Normal Negative [facility] Comment on above: Result Comment: This test was developed and its performance characteristics determined by [facility]. It has not been cleared or approved by the Food and Drug Administration. PERFORMED BY: [facility] [address] [place] [address] PATHOLOGIST [employer] IRENE TURPIN M.D. Performed By: #### V AGINITIS+ #### [facility] , Chlamydia Trachomotis, ELDON Negative Normal Negative [facility] Comment on above: Performed By: #### V AGINITIS+ #### [facility] , Megasphaera Low - 0 Normal . [facility] Comment on above: [...] ELDON Negative Normal Negative [facility] Comment on above: Result Comment: Perf ormed at: =G - [facility] [address] [place], [place] [id number] [employer] Maker: Bri Keenan MD, Phone: [phone] Performed By: #### V AGINITIS+ #### [facility] , Tric Vag ELDON Negative Normal Negative [facility] Comment on above: Performed By: #### V AGINITIS+ #### [facility] , Basophils Auto (Bld) [#/Vol] on 01-19-2024 Basophils (Bld) [#/Vol] 0.0 10 3/uL 0.0-0.1 [facility] Basophils/100 WBC Auto (Bld) on 01-19-2024 Basophils/100 WBC (Bld) 0.4 % 0.2-2.0 [facility] Eosinophils/100 WBC Auto (Bl d)on 01-19-2024 Eosinophils/100 WBC (Bld) 1.0 % 0.9-7.0 [facility] Erythrocyte distribution wid th Auto (RBC) [Ratio]on 01-19-2024 Erythrocyte distribution width (RBC) [Ratio] 11.7 % 11.0-15.0 [facility] Estimated glomerular filtrat ion rate (GFR) non- Americanon 01-19-2024 GFR/1.73 sq M.predicted among non-blacks MDRD (S/P/Bld) [Vol rate/Area] mL/min/{1.73_m2} >=60 [facility] Hematocrit Auto (Bld) [Volum e fraction]on 01-19-2024 Hematocrit (Bld) [Volume fraction] 39.6 % 36.0-48.0 [facility] Hemoglobin [Mass/volume] in Bloodon 01-19-2024 Hemoglobin (Bld) [Mass/Vol] 14.3 g/dL 12.0-16.0 [facility] Laboratory - Chemistry and C hemistry - challengeon 01-19-2024 Calcium [Mass/Vol] 8.7 mg/dL 8.5-10.1 [facility] Chloride [Moles/Vol] 100 mmol/L 98-107 [facility] CO2 [Moles/Vol] 27.5 mmol/L 21.0-32.0 [facility] Creatinine [Mass/Vol] 0.88 mg/dL 0.55-1.02 [facility] GFR/1.73 sq M.predicted MDRD (S/P/Bld) [Vol rate/Area] mL/min/{1.73_m2} >=60 [facility] Glucose [Mass/Vol] 94 mg/dL 74-106 [facility] Potassium [Moles/Vol] 3.3 mmol/L Low 3.5-5.1 [facility] Sodium [Moles/Vol] 135 mmol/L Low 136-145 [facility] Urea nitrogen [Mass/Vol] 12.0 mg/dL 7.0-18.0 [facility] Urea nitrogen/Creatinine [Mass ratio] 13.6 mg/mg [facility] Laboratory - Hematology and Cell countson 01-19-2024 Immature granulocytes/100 WBC (Bld) 0.0 % 0.0-0.5 [facility] Leukocytes [#/volume] correc leonidas for nucleated erythrocytes in Blood by Automated counon 01-19-2024 WBC corrected for nucl RBC Auto (Bld) [#/Vol] 4.8 10 3/uL 4.0-11.0 [facility] Lymphocytes Auto (Bld) [#/Vo l]on 01-19-2024 Lymphocytes (Bld) [#/Vol] 1.2 10 3/uL 1.2-3.8 [facility] Lymphocytes/100 WBC Auto (Bl d)on 01-19-2024 Lymphocytes/100 WBC (Bld) 25.1 % 20.5-60.0 [facility] MCH Auto (RBC) [Entitic mass ]on 01-19-2024 MCH (RBC) [Entitic mass] 30.4 pg 26.7-34.0 [facility] MCHC Auto (RBC) [Mass/Vol]on 01-19-2024 MCHC (RBC) [Mass/Vol] 36.1 g/dL High 29.9-35.2 [facility] MCV Auto (RBC) [Entitic vol] on 01-19-2024 MCV (RBC) [Entitic vol] 84.1 fL 81.0-99.0 [facility] Monocytes Auto (Bld) [#/Vol] on 01-19-2024 Monocytes (Bld) [#/Vol] 0.6 10 3/uL 0.3-0.8 [facility] Monocytes/100 WBC Auto (Bld) on 01-19-2024 Monocytes/100 WBC (Bld) 11.6 % 1.7-12.0 [facility] Neutrophils Auto (Bld) [#/Vo l]on 01-19-2024 Neutrophils (Bld) [#/Vol] 3.0 10 3/uL 1.4-6.5 [facility] Neutrophils/100 WBC Auto (Bl d)on 01-19-2024 Neutrophils/100 WBC (Bld) 61.9 % 43.0-75.0 [facility] No Panel Informationon 01-18 Eosinophils # (Auto) 0.1 10 3/uL 0.0-0.7 [facility] Human Chorionic Gonadotropin, Qual Negative NEGATIVE [facility] Immature Granulocyte # (Auto) 0.00 10 3/uL 0.00-0.03 [facility] Platelet mean volume Auto (B ld) [Entitic vol]on 01-19-2024 Platelet mean volume (Bld) [Entitic vol] 11.2 fL 9.5-13.5 [facility] Platelets Auto (Bld) [#/Vol] on 01-19-2024 Platelets (Bld) [#/Vol] 137 10 3/uL Low 150-450 [facility] RBC Auto (Bld) [#/Vol]on RBC (Bld) [#/Vol] 4.71 10 6/uL 4.20-5.40 [facility] Serum or plasma anion gap de terminationon 01-19-2024 Anion gap [Moles/Vol] 10.8 mmol/L [place] Choriogonadotropin.beta subu nit ( test) [Presence] in Urineon 01-03-2024 Beta HCG ( test) Ql (U) Negative [facility] Influenza virus A and B and SARS-CoV-2 (COVID-19) RNA panel - Respiratory system specon 01-03-2024 Influenza virus A and B RNA and SARS-CoV-2 (COVID-19) N gene panel ELDON+probe (Resp) Negative [facility] Laboratory - Microbiology an d Antimicrobial susceptibilityon 01-03-2024 SARS-CoV-2 (COVID-19) RNA ELDON+probe Ql (Unsp spec) Negative [facility] No Panel Informationon 01-02 POC Influenza B (ELDON) Negative [facility] No Panel InformationOrdered By: Evelyn Vu on 01-03-2024 Quick Strep (POC) [facility] Quick Strepon 10-02-2022 S. pyogenes Org specific cx Ql (Throat) Negative [employer] Other Quick Strep [facility] [employer] Other COVID19(IDNOW)on 11-30-2019 COVID19(IDNOW) NOT DETECTED Normal NOT DETECTED [facility] Comment on above: Result Comment: Nega tive results do not preclude SARS-CoV-2 infection and should not be used as the sole basis for treatiment or other patient management. ENHANCED CONTACT, AND DROPLET ISOLATION IS REQUIRED FOR INPATIENTS WITH SARS-CoV-2. Performed By: #### C OVID19(IDNOW) #### [facility] [address] [place] [address] Age at specimen collection = Normal [facility] Comment on above: Performed By: #### C OVID19(IDNOW) #### [facility] [address] [place] [address] Hematologyon 05-11-2019 Basophils (Bld) [#/Vol] 0.0 10*3/uL 0.0-0.1 [facility] Basophils/100 WBC (Bld) 0.40 % 0.0-1.0 [facility] [employer] Eosinophils (Bld) [#/Vol] 0.10 10*3/uL 0.0-0.5 [facility] [employer] Eosinophils/100 WBC (Bld) 1.30 % 0.0-7.0 [facility] [place] [employer] [facility] [employer] Hematocrit (Bld) [Volume fraction] 41.30 % 35.7-47.1 [facility] [employer] Hemoglobin (Bld) [Mass/Vol] 14.10 g/dL 11.9-15.7 [facility] [employer] Lymphocytes (Bld) [#/Vol] 2.20 10*3/uL 0.9-3.1 [facility]ene [place] [employer] [facility] [employer] Lymphocytes/100 WBC (Bld) 29.30 % 15.0-46.0 Rene [place] [employer] MCH (RBC) [Entitic mass] 29.90 pg 23.2-33.3 [facility] [employer] MCV (RBC) [Entitic vol] 87.50 fL 83.4-101.4 [facility] [place] [employer] [facility] Monocytes (Bld) [#/Vol] 0.60 10*3/uL 0.3-1.0 [facility] Monocytes/100 WBC (Bld) 8.60 % 4.0-12.0 [employer] Neutrophils (Bld) [#/Vol] 4.50 10*3/uL 1.8-7.9 [employer] Neutrophils/100 WBC (Bld) 60.0 % 43.0-76.0 [facility] [employer] [facility] Platelets (Bld) [#/Vol] 160.0 10*3/uL 150-400 [facility] [employer] [facility] RBC (Bld) [#/Vol] 4.720 10*6/uL 3.72-5.24 [facility] WBC (Bld) [#/Vol] 7.40 10*3/uL 3.9-10.3 [facility] [employer] [facility] Otheron 05-11-2019 Erythrocyte distribution width (RBC) [Ratio] 12.10 % 11.5-15.5 [facility] Immature granulocytes (Bld) [#/Vol] 0.030 10*3/uL 0.00-0.06 [facility] [employer] [facility] Immature granulocytes/100 WBC (Bld) 0.40 % 0.0-0.5 [facility] [employer] [facility] MCHC (RBC) [Mass/Vol] 34.10 g/dL 32.0-36.0 [facility] [employer] [facility] Platelet mean volume (Bld) [Entitic vol] 11.10 fL 8.3-11.5 [facility] [employer] [facility] COMMENT [facility] [employer] [facility] <9.0 0.0-8.9 [facility] [employer] 303.0 0.0-17.9 [facility] <36.0 0.0-35.9 [facility] 38.9 0.0-17.9 [facility] [employer] Thyroidon 05-11-2019 TSH Qn 1.96 m[IU]/L 0.50-4.00 [facility] [employer] Basic Metabolic Profon 04-20 (cont.) Normal [facility] Comment on above: Result Comment: Aver age GFR for 20-29 years old: 116 mL/min/1.73sq mChronic Kidney Disease: <60 mL/min/1.73sq mKidney failure: <15 mL/min/1.73sq meGFR calculated using average adult body mass. Additional eGFR calculator available at:[email or web address] Performed By: #### B MP, CBC ####[address] [place] [address] Anion gap 3 molar conc 11 mmol/L Normal 9-17 [facility] Comment on above: Performed By: #### B MP, CBC ####[address] [place] [address] BUN/CRE Ratio 18 Normal 9-[address] [facility] Comment on above: Performed By: #### B MP, CBC ####[address] , [place] [address] Calcium mass conc 9.2 mg/dL Normal 8.6-10.[address] [facility] Comment on above: Performed By: #### B MP, CBC ####[address] [place] [address] Chloride molar conc 102 mmol/L Normal 98-107 [facility] Comment on above: Performed By: #### B MP, CBC ####[address] [place] [address] CO2 molar conc 26 mmol/L Normal 20-31 [facility] Comment on above: Performed By: #### B MP, CBC ####[address] [place] [address] Creatinine mass conc 0.65 mg/dL Normal 0.50-0.90 [facility] Comment on above: Performed By: #### B MP, CBC ####[address] [place] [address] GFR, Amer >60 Normal >60 [facility] Comment on above: Performed By: #### B MP, CBC ####[address] [place] [address] GFR,non Amer >60 Normal >60 [facility] Comment on above: Performed By: #### B MP, CBC ####[address] [place] [address] Glucose mass conc 89 mg/dL Normal 70-[address] [facility] Comment on above: Performed By: #### B MP, CBC ####[address] [place] [address] Potassium molar conc 3.8 mmol/L Normal 3.7-5.3 [facility] Comment on above: Performed By: #### B MP, CBC ####[address] [place] [address] Sodium molar conc 139 mmol/L Normal 135-[address] [facility] Comment on above: Performed By: #### B MP, CBC ####[address] [place] [address] Staging: Normal [facility] Comment on above: Result Comment: Stag e 1: Some kidney damage normal GFRStage 2: Mild kidney damage GFR 60-89Stage 3: Moderate kidney damage GFR 30-59Stage 4: Severe kidney damage GFR 15-29Stage 5: Severe kidney damage GFR <15ESRD - chronic treatment by dialysis or transplant Performed By: #### B MP, CBC ####[address] [place] [address] Urea nitrogen mass conc 12 mg/dL Normal 6-20 [facility] Comment on above: Performed By: #### B MP, CBC ####[address] [place] [address] CBCon 04-20-2018 Erythrocyte distribution width Auto Ratio (RBC) 12.1 % Normal 11.8-14.4 [facility] Comment on above: Performed By: #### B MP, CBC ####[address] [place] [address] Hematocrit Auto Volume Fraction (Bld) 42.6 % Normal 36.3-47.1 [facility] Comment on above: Performed By: #### B MP, CBC ####[address] [place] [address] Hemoglobin mass conc (Bld) 14.7 g/dL Normal 11.9-15.1 [facility] Comment on above: Performed By: #### B MP, CBC ####[address] [place] [address] MCH Auto Entitic mass (RBC) 30.2 pg Normal 25.2-33.5 [facility] Comment on above: Performed By: #### B MP, CBC ####[address] [place] [address] MCHC Auto mass conc (RBC) 34.5 g/dL Normal 28.4-34.8 [facility] Comment on above: Performed By: #### B MP, CBC ####[address] [place] [address] MCV Auto Entitic volume (RBC) 87.7 fL Normal 82.6-102.9 [facility] Comment on above: Performed By: #### B MP, CBC ####[address] [place] [address] NRBC Automated 0.0 per 100 WBC Normal 0.0 [facility] Comment on above: Performed By: #### B MP, CBC ####[address] [place] [address] Platelet mean volume Auto Entitic volume (Bld) 10.8 fL Normal 8.1-13.5 [facility] Comment on above: Performed By: #### B MP, CBC ####[address] , [facility]83 Platelets Auto #/vol (Bld) 142 10*3/uL Normal 138-453 [facility] Comment on above: Performed By: #### B MP, CBC ####[address] [place] [address] RBC Auto #/vol (Bld) 4.86 10*6/uL Normal 3.95-5.11 [facility] Comment on above: Performed By: #### B MP, CBC ####[address] [place] [address] WBC Auto #/vol (Bld) 6.2 10*3/uL Normal 4.5-13.5 [facility] Comment on above: Performed By: #### B MP, CBC ####[address] , [facility]83 HCG, ,Urineon 04-20 HCG.beta subunit ( test) Ql (U) Negative Normal NEG [facility] Comment on above: Result Comment: Spec imens with hCG levels near the threshold of the test (25 mIU/mL) may give a negative or indeterminate result. In such cases, another test should be performed with a new specimen in 48-72 hours. If early is suspected clinically in this setting, correlation with quantitative serum b-hCG level is suggested.[employer] has confirmed the use of plasma for this test. This has not been cleared or approved by the U.S. Food and Drug Administration. The FDA has determined that such clearance is not necessary. Performed By: #### U HCG ####[address] [place] [address] UA w/Reflex Cultureon 2017 Acetoacetic Acid,Ur Negative Normal NEG [facility] Comment on above: Performed By: #### U AX, UMICAO ####[address] [place] [address] Bilirubin, SemiQt,Ur Negative Normal NEG [facility] Comment on above: Performed By: #### U AX, UMICAO ####[address] [place] [address] Color YELLOW Normal YEL [facility] Comment on above: Performed By: #### U AX, UMICAO ####[address] [place] [address] Glucose,Semi-qnt,Ur Negative Normal NEG [facility] Comment on above: Performed By: #### U AX, UMICAO ####[address] [place] [address] Hemoglobin, Ur Negative Normal NEG [facility] Comment on above: Performed By: #### U AX, UMICAO ####[address] [place] [address] Leuckocyte Esterase Negative Normal NEG [facility] Comment on above: Performed By: #### U AX, UMICAO ####[address] [place] [address] Nitrite,Ur Negative Normal NEG [facility] Comment on above: Performed By: #### U AX, UMICAO ####[address] [place] [address] PH,Ur 6.0 Normal 5.0-9.0 [facility] Comment on above: Performed By: #### U AX, UMICAO ####[address] [place] [address] Protein, Semi-qnt,Ur Negative Normal NEG [facility] Comment on above: Performed By: #### U AX, UMICAO ####[address] [place] [address] Spec. [place],Ur 1.025 High 1.010-1.[address] [facility] Comment on above: Performed By: #### U AX, UMICAO ####[address] [place] [address] Turbidity CLEAR Normal CLEAR [facility] Comment on above: Performed By: #### U AX, UMICAO ####[address] [place] [address] Urobilinogen,Ur Normal Normal NORM [facility] Comment on above: Performed By: #### U AX, UMICAO ####[address] [place] [address] Comment NOT REPORTED Normal [facility] Comment on above: Performed By: #### U AX, UMICAO ####[address] [place] [address] Urinalysis,Microon 8 ----- Normal [facility] Comment on above: Performed By: #### U AX, UMICAO ####[address] [place] [address] Bacteria 1+ Abnormal NONE [facility] Comment on above: Performed By: #### U AX, UMICAO ####[address] [place] [address] Epithelial cells 2 TO 5 Normal 0-25 [facility] Comment on above: Performed By: #### U AX, UMICAO ####[address] [place] [address] RBC Test strip #/vol (U) None Normal 0-2 [facility] Comment on above: Performed By: #### U AX, UMICAO ####[address] [place] [address] Urine WBC's 0 TO 2 Normal 0-5 [facility] Comment on above: Performed By: #### U AX, UMICAO ####[address] [place] [address] Amorphous Sediment NOT REPORTED Normal NONE [facility] Comment on above: Performed By: #### U AX, UMICAO ####[address] [place] [address] Casts NOT REPORTED Normal [facility] Comment on above: Performed By: #### U AX, UMICAO ####[address] [place] [address] Crystals NOT REPORTED Normal NONE [facility] Comment on above: Performed By: #### U AX, UMICAO ####[address] [place] [address] Epithelial, Renal NOT REPORTED Normal 0 [facility] Comment on above: Performed By: #### U AX, UMICAO ####[address] [place] [address] Mucus Strands NOT REPORTED Normal NONE [facility] Comment on above: Performed By: #### U AX, UMICAO ####[address] [place] [address] Other Observations NOT REPORTED Normal NREQ [facility] Comment on above: Performed By: #### U AX, UMICAO ####[address] [place] [address] Trichomonas NOT REPORTED Normal NONE [facility] Comment on above: Performed By: #### U AX, UMICAO ####[address] [place] [address] Yeast NOT REPORTED Normal NONE [facility] Comment on above: Performed By: #### U AX, UMICAO ####[address] [place] [address] XR LUMBAR SPINE (2-3 VIEWS)o n 12-13-2018 Protein mass conc EXAMINATION:3 XRAY VIEWS OF [...] by:RIVER Jassoigned by:Phil Messer MD04/20/18inal result Normal [facility] Otheron 03-08-2018 Negative [facility] Otheron 02-03-2018 Negative [facility] Otheron 01-30-2018 Negative [facility] Cardiacon 12-28-2017 Cholesterol [Mass/Vol] 156.0 mg/dL 0-200 [facility] Cholesterol in HDL [Mass/Vol] 54.0 mg/dL 50-100 [facility] Cholesterol in LDL [Mass/Vol] 79.0 mg/dL 0-130 [facility] Triglyceride [Mass/Vol] 116.0 mg/dL 30-150 [facility] Metabolic Panelon 12-28-2017 Albumin [Mass/Vol] 4.70 g/dL 3.7-4.5 [facility] ALP [Catalytic activity/Vol] 83.0 U/L 31-155 [facility] ALT [Catalytic activity/Vol] 15.0 U/L 0-50 [facility] AST [Catalytic activity/Vol] 19.0 U/L 0-40 [facility] Bilirubin [Mass/Vol] 0.70 mg/dL 0.0-1.0 Sora[facility] l[facility] Protein [Mass/Vol] 7.80 g/dL 6.3-7.9 [facility] mcguire [facility] Otheron 12-28-2017 Albumin/Globulin [Mass ratio] 1.5 {ratio} 1.0-2.4 [facility] Cholesterol in VLDL [Mass/Vol] 23.0 mg/dL 0-39 [facility] Cholesterol.total/Cho lesterol in HDL [Mass ratio] 3 {ratio} [facility] Negative [facility] CBCon 07-28-2017 Erythrocyte distribution width Auto Ratio (RBC) 11.8 % Normal 11.8-14.4 [facility] Comment on above: Performed By: #### C BC, CP ####[address] [place] [address] Hematocrit Auto Volume Fraction (Bld) 41.2 % Normal 36.3-47.1 [facility] Comment on above: Performed By: #### C BC, CP ####[address] [place] [address] Hemoglobin mass conc (Bld) 14.1 g/dL Normal 11.9-15.1 [facility] Comment on above: Performed By: #### C BC, CP ####[address] [place] [address] MCH Auto Entitic mass (RBC) 28.5 pg Normal 25.2-33.5 [facility] Comment on above: Performed By: #### C BC, CP ####[address] [place] [address] MCHC Auto mass conc (RBC) 34.2 g/dL Normal 28.4-34.8 [facility] Comment on above: Performed By: #### C BC, CP ####[address] [place] [address] MCV Auto Entitic volume (RBC) 83.2 fL Normal 82.6-102.9 [facility] Comment on above: Performed By: #### C BC, CP ####[address] , [facility]83 NRBC Automated 0.0 per 100 WBC Normal 0.0 [facility] Comment on above: Result Comment: Perf ormed at [address] [place] [address] Performed By: #### C SEN, CP ####[address] [place] [address] Platelet mean volume Auto Entitic volume (Bld) 9.9 fL Normal 8.1-13.5 [facility] Comment on above: Performed By: #### C SEN, CP ####[address] [place] [address] Platelets Auto #/vol (Bld) 230 10*3/uL Normal 138-453 [facility] Comment on above: Performed By: #### C BC, CP ####[address] , [facility]83 RBC Auto #/vol (Bld) 4.95 10*6/uL Normal 3.95-5.11 [facility] Comment on above: Performed By: #### C BC, CP ####[address] , [facility]83 WBC Auto #/vol (Bld) 11.8 10*3/uL Normal 4.5-13.5 [facility] Comment on above: Performed By: #### C BC, CP ####[address] , [place] [id number] Comp Metabolic Profon 2017 (cont.) Normal [facility] Comment on above: Result Comment: Aver age GFR for 20-29 years old: 116 mL/min/1.73sq mChronic Kidney Disease: <60 mL/min/1.73sq mKidney failure: <15 mL/min/1.73sq meGFR calculated using average adult body mass. Additional eGFR calculator available at:http://[email or web address].com/multiple_crcl_2012.htm Performed By: #### C BC, CP ####[address] [place] [address] Albumin mass conc 4.5 g/dL Normal 3.5-5.[address] [facility] Comment on above: Performed By: #### C BC, CP ####[address] [place] [address] Albumin/Globulin mass ratio 1.3 {ratio} Normal 1.0-2.5 [facility] Comment on above: Performed By: #### C BC, CP ####[address] [place] [address] Alkaline Phos 81 U/L Normal 35-[address] [facility] Comment on above: Performed By: #### C BC, CP ####[address] [place] [address] ALT enzyme act/vol 23 U/L Normal 5-33 [facility] Comment on above: Performed By: #### C BC, CP ####[address] [place] [address] Anion gap 3 molar conc 13 mmol/L Normal 9-17 [facility] Comment on above: Performed By: #### C BC, CP ####[address] [place] [address] AST enzyme act/vol 23 U/L Normal <32 [facility] Comment on above: Performed By: #### C BC, CP ####[address] [place] [address] Bilirubin Ql (U) 0.23 mg/dL Low 0.3-1.2 [facility] Comment on above: Performed By: #### C BC, CP ####[address] [place] [address] BUN/CRE Ratio 17 Normal 9-[address] [facility] Comment on above: Performed By: #### C BC, CP ####[address] [place] [address] Calcium mass conc 9.5 mg/dL Normal 8.6-10.[address] [facility] Comment on above: Performed By: #### C BC, CP ####[address] [place] [address] Chloride molar conc 101 mmol/L Normal 98-107 [facility] Comment on above: Performed By: #### C BC, CP ####[address] [place] [address] CO2 molar conc 23 mmol/L Normal 20-31 [facility] Comment on above: Performed By: #### C BC, CP ####[address] [place] [address] Creatinine mass conc 0.69 mg/dL Normal 0.50-0.90 [facility] Comment on above: Performed By: #### C BC, CP ####[address] [place] [address] GFR, Amer >60 Normal >60 [facility] Comment on above: Performed By: #### C BC, CP ####[address] [place] [address] GFR,non Amer >60 Normal >60 [facility] Comment on above: Performed By: #### C BC, CP ####[address] [place] [address] Glucose mass conc 99 mg/dL Normal 70-[address] [facility] Comment on above: Performed By: #### C BC, CP ####[address] [place] [address] Potassium molar conc 3.8 mmol/L Normal 3.7-5.3 [facility] Comment on above: Performed By: #### C BC, CP ####[address] [place] [address] Protein mass conc 8.0 g/dL Normal 6.4-8.[address] [facility] Comment on above: Performed By: #### C BC, CP ####[address] [place] [address] Sodium molar conc 137 mmol/L Normal 135-[address] [facility] Comment on above: Performed By: #### C BC, CP ####[address] [place] [address] Staging: Normal [facility] Comment on above: Result Comment: Stag e 1: Some kidney damage normal GFRStage 2: Mild kidney damage GFR 60-89Stage 3: Moderate kidney damage GFR 30-59Stage 4: Severe kidney damage GFR 15-29Stage 5: Severe kidney damage GFR <15ESRD - chronic treatment by dialysis or transplantPerformed at [address] [place] [address] Performed By: #### C BC, CP ####[address] [place] [address] Urea nitrogen mass conc 12 mg/dL Normal 6-20 [facility] Comment on above: Performed By: #### C BC, CP ####[address] [place] [address] HCG, ,Urineon 07-28 HCG.beta subunit ( test) Ql (U) Negative Normal NEG [facility] Comment on above: Result Comment: Spec imens with hCG levels near the threshold of the test (25 mIU/mL) may give a negative or indeterminate result. In such cases, another test should be performed with a new specimen in 48-72 hours. If early is suspected clinically in this setting, correlation with quantitative serum b-hCG level is suggested.[facility] has confirmed the use of plasma for this test. This has not been cleared or approved by the U.S. Food and Drug Administration. The FDA has determined that such clearance is not necessary.Performed at [address] [place] [address] Performed By: #### U HCG, UA ####[address] [place] [address] Urinalysis, Routineon 2017 Acetoacetic Acid,Ur Negative Normal NEG [facility] Comment on above: Performed By: #### U HCG, UA ####[address] [place] [address] Bilirubin, SemiQt,Ur Negative Normal NEG [facility] Comment on above: Performed By: #### U HCG, UA ####[address] [place] [address] Color YELLOW Normal YEL [facility] Comment on above: Performed By: #### U HCG, UA ####[address] [place] [address] Glucose,Semi-qnt,Ur Negative Normal NEG [facility] Comment on above: Performed By: #### U HCG, UA ####[address] [place] [address] Hemoglobin, Ur Negative Normal NEG [facility] Comment on above: Performed By: #### U HCG, UA ####[address] [place] [address] Leuckocyte Esterase Negative Normal NEG [facility] Comment on above: Result Comment: Perf ormed at [address] [place] [address] Performed By: #### U HCG, UA ####[address] [place] [address] Nitrite,Ur Negative Normal NEG [facility] Comment on above: Performed By: #### U HCG, UA ####[address] [place] [address] PH,Ur 6.0 Normal 5.0-9.0 [facility] Comment on above: Performed By: #### U HCG, UA ####[address] [place] [address] Protein mass conc Negative Normal NEG [facility] Comment on above: Performed By: #### U HCG, UA ####[address] [place] [address] Spec. [place],Ur 1.025 High 1.010-1.[address] [facility] Comment on above: Performed By: #### U HCG, UA ####[address] [place] [address] Turbidity CLEAR Normal CLEAR [facility] Comment on above: Performed By: #### U HCG, UA ####[address] [place] [address] Urobilinogen,Ur Normal Normal NORM [facility] Comment on above: Performed By: #### U HCG, UA ####[address] [place] [address] Comment NOT REPORTED Normal [facility] Comment on above: Performed By: #### U HCG, UA ####[address] [place] [address] Cardiacon 06-07-2016 Cholesterol mass conc 175.0 mg/dL 0-200 Bl [facility] Triglyceride mass conc 58.0 mg/dL 30-150 [facility] [employer] [facility] Hematologyon 06-07-2016 Basophils #/vol (Bld) 0.0 10*3/uL 0.0-0.1 Bl [facility] [employer] [facility] Basophils/100 WBC (Bld) 0.30 % 0.0-1.0 [facility] [employer] [facility] Eosinophils #/vol (Bld) 0.10 10*3/uL 0.0-0.5 [facility] [employer] [facility] Eosinophils/100 WBC (Bld) 1.80 % 0.0-7.0 [facility] [employer] [facility] Hematocrit Volume Fraction (Bld) 40.50 % 35.7-47.1 [facility] [employer] [facility] Hemoglobin mass conc (Bld) 13.60 g/dL 11.9-15.7 [facility] [employer] [facility] Lymphocytes #/vol (Bld) 3.40 10*3/uL 0.9-3.1 [facility] [employer] [facility] Lymphocytes/100 WBC (Bld) 41.0 % 28.0-42.0 [facility] [employer] [facility] MCH Entitic mass (RBC) 29.60 pg 23.2-33.3 [facility] [employer] [facility] MCV Entitic volume (RBC) 88.40 fL 82.0-98.4 [employer] [facility] Monocytes #/vol (Bld) 0.60 10*3/uL 0.3-1.0 B [facility] [employer] [facility] Monocytes/100 WBC (Bld) 7.40 % 4.0-12.0 [employer] [facility] Neutrophils #/vol (Bld) 4.20 10*3/uL 1.8-7.9 [facility] [employer] Neutrophils/100 WBC (Bld) 49.50 % 45.6-68.4 [facility] [employer] Platelets #/vol (Bld) 225.0 10*3/uL 150-400 [facility] [employer] RBC #/vol (Bld) 4.580 10*6/uL 3.72-5.24 [facility] [employer] WBC #/vol (Bld) 8.30 10*3/uL 3.9-10.3 [facility] [employer] Metabolic Panelon 06-07-2016 Albumin mass conc 4.40 g/dL 3.7-4.5 [facility] [employer] ALP enzyme act/vol 77.0 U/L 31-155 [facility] [employer] ALT enzyme act/vol 17.0 U/L 0-50 [facility] [employer] AST enzyme act/vol 21.0 U/L 0-40 [facility] [employer] Bilirubin mass conc 0.40 mg/dL 0.0-1.0 [facility] Protein mass conc 7.40 g/dL 6.3-7.9 [facility] [employer] Otheron 06-07-2016 Albumin/Globulin mass ratio 1.5 {ratio} 1.0-2.4 [facility] [employer] Erythrocyte distribution width Ratio (RBC) 11.80 % 11.5-15.5 [facility] [employer] MCHC mass conc (RBC) 33.50 g/dL 32.0-36.0 [facility] [employer] Platelet mean volume Entitic volume (Bld) 9.0 fL 7.4-10.[address] [place] [employer] [address] [facility] [employer] Otheron 04-23-2016 Negative [place] [employer] Otheron 03-19-2016 Negative [place] [facility] Cardiacon 02-12-2016 Cholesterol mass conc 175.0 mg/dL 0-200 Bl [facility] [employer] Triglyceride mass conc 59.0 mg/dL 30-150 [facility] [employer] Hematologyon 02-12-2016 Basophils #/vol (Bld) 0.10 10*3/uL 0.0-0.1 B [facility] [employer] Basophils/100 WBC (Bld) 0.90 % 0.0-1.0 [facility] [employer] Eosinophils #/vol (Bld) 0.10 10*3/uL 0.0-0.5 [facility] [employer] Eosinophils/100 WBC (Bld) 1.70 % 0.0-7.0 [employer] [facility] Hematocrit Volume Fraction (Bld) 41.60 % 35.7-47.1 [employer] Hemoglobin mass conc (Bld) 14.0 g/dL 11.9-15.7 [employer] [employer] Lymphocytes #/vol (Bld) 2.30 10*3/uL 0.9-3.1 [place] [employer] Lymphocytes/100 WBC (Bld) 36.10 % 28.0-42.0 [place] [employer] MCH Entitic mass (RBC) 29.40 pg 23.2-33.3 [facility] [employer] [facility] MCV Entitic volume (RBC) 87.60 fL 82.0-98.4 [facility] [employer] [facility] Monocytes #/vol (Bld) 0.50 10*3/uL 0.3-1.0 B [facility] [employer] [facility] Monocytes/100 WBC (Bld) 7.20 % 4.0-12.0 [facility] [employer] Neutrophils #/vol (Bld) 3.30 10*3/uL 1.8-7.9 [facility] Neutrophils/100 WBC (Bld) 54.10 % 45.6-68.4 [facility] [employer] Platelets #/vol (Bld) 180.0 10*3/uL 150-400 [facility] [employer] [facility] RBC #/vol (Bld) 4.750 10*6/uL 3.72-5.24 [facility] [employer] WBC #/vol (Bld) 6.30 10*3/uL 3.9-10.3 [facility] Metabolic Panelon 02-12-2016 Albumin mass conc 4.50 g/dL 3.7-4.5 [facility] ALP enzyme act/vol 79.0 U/L 31-155 [facility] ALT enzyme act/vol 21.0 U/L 0-50 [facility] AST enzyme act/vol 22.0 U/L 0-40 [facility] Bilirubin mass conc 0.40 mg/dL 0.0-1.0 [facility] Protein mass conc 7.0 g/dL 6.3-7.9 [facility] Otheron 02-12-2016 Albumin/Globulin mass ratio 1.8 {ratio} 1.0-2.4 [place] [employer] Erythrocyte distribution width Ratio (RBC) 12.10 % 11.5-15.5 [place] [employer] MCHC mass conc (RBC) 33.60 g/dL 32.0-36.0 [facility] Platelet mean volume Entitic volume (Bld) 9.70 fL 7.4-10.4 [place] [facility] [facility] Vital Signs Date Time Vital Sign Value Performing Clinician Facility 10-29-2024 08:31-0400 Body mass index (BMI) [Ratio] 27.85 kg/m2 Eleazar Vijaya DO Work Phone: [facility] 10-29-2024 08:31-0400 Body weight 66.86 kg Eleazar Vijaya DO Work Phone: [facility] 10-29-2024 08:31-0400 Diastolic blood pressure 74 mm[Hg] Eleazar Vijaya DO Work Phone: [facility] 10-29-2024 08:31-0400 Systolic blood pressure 120 mm[Hg] Eleazar Vijaya DO Work Phone: [facility] 10-23-2024 09:06-0400 Body mass index (BMI) [Ratio] 27.59 kg/m2 Eleazar Vijaya DO Work Phone: [facility] 10-23-2024 09:06-0400 Body weight 66.22 kg Eleazar Vijaya DO Work Phone: [facility] 10-23-2024 09:06-0400 Diastolic blood pressure 78 mm[Hg] Eleazar Vijaya DO Work Phone: [facility] 10-23-2024 09:06-0400 Systolic blood pressure 124 mm[Hg] Eleazar Vijaya DO Work Phone: [facility] 10-16-2024 10:46-0400 Body mass index (BMI) [Ratio] 27.21 kg/m2 Eleazar Vijaya DO Work Phone: [facility] 10-16-2024 10:46-0400 Body weight 65.32 kg Eleazar Vijaya DO Work Phone: [facility] 10-16-2024 10:46-0400 Diastolic blood pressure 64 mm[Hg] Eleazar Vijaya DO Work Phone: [facility] 10-16-2024 10:46-0400 Systolic blood pressure 108 mm[Hg] Eleazar Vijaya DO Work Phone: [facility] 10-02-2024 09:28-0400 Body mass index (BMI) [Ratio] 26.79 kg/m2 Cheryl MARIE Work Phone: [facility] 10-02-2024 09:28-0400 Body weight 64.32 kg Cheryl MARIE Work Phone: [facility] 10-02-2024 09:28-0400 Diastolic blood pressure 64 mm[Hg] Cheryl Baugh PA Work Phone: [facility] 10-02-2024 09:28-0400 Systolic blood pressure 102 mm[Hg] Cheryl Baugh PA Work Phone: [facility] 09-13-2024 11:01-0400 Body mass index (BMI) [Ratio] 26.07 kg/m2 Eleazar Vijaya DO Work Phone: [facility] 09-13-2024 11:01-0400 Body weight 62.6 kg Eleazar Vijaya DO Work Phone: [facility] 09-13-2024 11:01-0400 Diastolic blood pressure 56 mm[Hg] Eleazar Vijaya DO Work Phone: [facility] 09-13-2024 11:01-0400 Systolic blood pressure 100 mm[Hg] Eleazar Vijaya DO Work Phone: [facility] 08-20-2024 09:57-0400 Body mass index (BMI) [Ratio] 25.32 kg/m2 Eleazar Vijaya DO Work Phone: [facility] 08-20-2024 09:57-0400 Body weight 60.78 kg Eleazar Vijaya DO Work Phone: [facility] 08-20-2024 09:57-0400 Diastolic blood pressure 70 mm[Hg] Eleazar Vijaya DO Work Phone: [facility] 08-20-2024 09:57-0400 Systolic blood pressure 110 mm[Hg] Eleazar Vijaya DO Work Phone: [facility] 07-23-2024 09:44-0400 Body mass index (BMI) [Ratio] 24.53 kg/m2 Cheryl Baugh PA Work Phone: [facility] 07-23-2024 09:44-0400 Body weight 58.88 kg Cheryl Amauri PA Work Phone: [facility] 07-23-2024 09:44-0400 Diastolic blood pressure 66 mm[Hg] Cheryl Baugh PA Work Phone: [facility] 07-23-2024 09:44-0400 Systolic blood pressure 102 mm[Hg] Cheryl Baugh PA Work Phone: [facility] 06-26-2024 08:38-0500 Body mass index (BMI) [Ratio] 23.96 kg/m2 Eleazar Vijaya DO Work Phone: [facility] 06-26-2024 08:38-0500 Body weight 57.52 kg Eleazar Vijaya DO Work Phone: [facility] 06-26-2024 08:38-0500 Diastolic blood pressure 58 mm[Hg] Eleazar Vijaya DO Work Phone: [facility] 06-26-2024 08:38-0500 Systolic blood pressure 100 mm[Hg] Eleazar Vijaya DO Work Phone: [facility] 05-28-2024 13:28-0500 Body mass index (BMI) [Ratio] 22.58 kg/m2 Cheryl Amauri PA Work Phone: [facility] 05-28-2024 13:28-0500 Body weight 54.2 kg Cheryl Baugh PA Work Phone: [facility] 05-28-2024 13:28-0500 Diastolic blood pressure 60 mm[Hg] Cheryl Floresey PA Work Phone: [facility] 05-28-2024 13:28-0500 Systolic blood pressure 102 mm[Hg] Cheryl Florescammy MARIE Work Phone: [facility] 05-18-2024 10:28-0500 Body height 154.94 cm [facility] 05-18-2024 10:28-0500 Body mass index (BMI) [Ratio] 21.8 kg/m2 [facility] 05-18-2024 10:28-0500 Body temperature 98 [degF] [facility] 05-18-2024 10:28-0500 Body weight 52.33 kg [facility] 05-18-2024 10:28-0500 Diastolic blood pressure 66 mm[Hg] [facility] 05-18-2024 10:28-0500 Heart rate 89 /min [facility] 05-18-2024 10:28-0500 SaO2% (BldA) [Mass fraction] 99 % [facility] 05-18-2024 10:28-0500 Systolic blood pressure 104 mm[Hg] [facility] 04-30-2024 10:13-0500 Body mass index (BMI) [Ratio] 21.73 kg/m2 Eleazar Vijaya DO Work Phone: [facility] 04-30-2024 10:13-0500 Body weight 52.16 kg Eleazar Vijaya DO Work Phone: [facility] 04-30-2024 10:13-0500 Diastolic blood pressure 64 mm[Hg] Eleazar Vijaya DO Work Phone: [facility] 04-30-2024 10:13-0500 Systolic blood pressure 106 mm[Hg] Eleazar Vijaya DO Work Phone: [facility] 03-23-2024 10:10-0500 Body mass index (BMI) [Ratio] 20.86 kg/m2 [facility] Nurse [facility] 03-23-2024 10:10-0500 Body weight 50.08 kg [facility] Nurse [facility] 03-23-2024 10:10-0500 Diastolic blood pressure 60 mm[Hg] [facility] Nurse [facility] 03-23-2024 10:10-0500 Systolic blood pressure 110 mm[Hg] [facility] Nurse [facility] 03-14-2024 13:53-0500 Body mass index (BMI) [Ratio] 20.6 kg/m2 Eleazar Vijaya DO Work Phone: [facility] 03-14-2024 13:53-0500 Body weight 49.44 kg Eleazar Vijaya DO Work Phone: [facility] 03-14-2024 13:53-0500 Diastolic blood pressure 72 mm[Hg] Eleazar Vijaya DO Work Phone: [facility] 03-14-2024 13:53-0500 Systolic blood pressure 110 mm[Hg] Eleazar Vijaya DO Work Phone: [facility] 02-08-2024 13:21-0400 Body height 154.9 cm Eleazar Vijaya DO Work Phone: [facility] 02-08-2024 13:21-0400 Body mass index (BMI) [Ratio] 23.05 kg/m2 Eleazar Vijaya DO Work Phone: [facility] 02-08-2024 13:21-0400 Body weight 55.34 kg Eleazar Vijaya DO Work Phone: [facility] 02-08-2024 13:21-0400 Diastolic blood pressure 64 mm[Hg] Eleazar Vijaya DO Work Phone: [facility] 02-08-2024 13:21-0400 Systolic blood pressure 102 mm[Hg] Eleazar Lilly DO Work Phone: [facility] 02-02-2024 12:39-0400 Body height 154.94 cm [facility] 02-02-2024 12:39-0400 Body mass index (BMI) [Ratio] 22.4 kg/m2 [facility] 02-02-2024 12:39-0400 Body temperature 98.3 [degF] [facility] 02-02-2024 12:39-0400 Body weight 54 kg [facility] 02-02-2024 12:39-0400 Diastolic blood pressure 64 mm[Hg] [facility] 02-02-2024 12:39-0400 Heart rate 82 /min [facility] 02-02-2024 12:39-0400 Respiratory rate 16 /min [facility] 02-02-2024 12:39-0400 SaO2% (BldA) [Mass fraction] 98 % [facility] 02-02-2024 12:39-0400 Systolic blood pressure 108 mm[Hg] [facility] 01-24-2024 11:38-0400 Body height 154.94 cm [facility] 01-24-2024 11:38-0400 Body mass index (BMI) [Ratio] 22.6 kg/m2 [facility] 01-24-2024 11:38-0400 Body temperature 96.1 [degF] [facility] 01-24-2024 11:38-0400 Body weight 54.43 kg [facility] 01-24-2024 11:38-0400 Diastolic blood pressure 60 mm[Hg] [facility] 01-24-2024 11:38-0400 Heart rate 75 /min [facility] 01-24-2024 11:38-0400 SaO2% (BldA) [Mass fraction] 98 % [facility] 01-24-2024 11:38-0400 Systolic blood pressure 114 mm[Hg] [facility] 01-03-2024 11:26-0400 Body height 154.94 cm [facility] 01-03-2024 11:26-0400 Body mass index (BMI) [Ratio] 23.2 kg/m2 [facility] 01-03-2024 11:26-0400 Body temperature 97.8 [degF] [facility] 01-03-2024 11:26-0400 Body weight 55.79 kg [facility] 01-03-2024 11:26-0400 Diastolic blood pressure 68 mm[Hg] [facility] 01-03-2024 11:26-0400 Heart rate 90 /min [facility] 01-03-2024 11:26-0400 SaO2% (BldA) [Mass fraction] 98 % [facility] 01-03-2024 11:26-0400 Systolic blood pressure 110 mm[Hg] [facility] 07-21-2023 10:20-0400 Body height 154.94 cm [facility] 07-21-2023 10:20-0400 Body mass index (BMI) [Ratio] 27.8 kg/m2 [facility] 07-21-2023 10:20-0400 Body weight 66.67 kg [facility] 07-21-2023 10:20-0400 Diastolic blood pressure 78 mm[Hg] [facility] 07-21-2023 10:20-0400 Heart rate 61 /min [facility] 07-21-2023 10:20-0400 SaO2% (BldA) [Mass fraction] 99 % [facility] 07-21-2023 10:20-0400 Systolic blood pressure 112 mm[Hg] [facility] 03-26-2023 11:30-0500 Body height 154.94 cm Jodie Portillo Other [employer] Other 03-26-2023 11:30-0500 Body mass index (BMI) [Ratio] 27.96 kg/m2 Jodie Portillo Other [employer] Other 03-26-2023 11:30-0500 Body temperature 98.8 [degF] Jodie Portillo Other [employer] Other 03-26-2023 11:30-0500 Body weight 67.13 kg Jodie Portillo Other [employer] Other 03-26-2023 11:30-0500 Diastolic blood pressure 76 mm[Hg] Jodie Portillo Other [employer] Other 03-26-2023 11:30-0500 Respiratory rate 18 /min Jodie Portillo Other [employer] Other 03-26-2023 11:30-0500 SaO2% (BldA) [Mass fraction] 98 % Jodie Portillo Other [employer] Other 03-26-2023 11:30-0500 Systolic blood pressure 118 mm[Hg] Jodie Portillo Other [employer] Other 10-02-2022 12:25-0400 Body height 154.94 cm Deidra Castlemond Other [employer] Other 10-02-2022 12:25-0400 Body mass index (BMI) [Ratio] 27.43 kg/m2 Deidra Barbara Other [employer] Other 10-02-2022 12:25-0400 Body temperature 97.7 [degF] Deidra Barbara Other [employer] Other 10-02-2022 12:25-0400 Body weight 65.86 kg Deidra Barbara Other [employer] Other 10-02-2022 12:25-0400 Respiratory rate 18 /min Deidra Barbara Other [employer] Other 10-02-2022 12:25-0400 SaO2% (BldA) [Mass fraction] 97 % Deidra Jimenez Other [employer] Other 05-21-2019 10:42-0500 BMI (Body Mass Index) 23.41 kg/m2 Lyric Beto [employer] 05-21-2019 10:42-0500 Body Temperature 98.8 [degF] Lyric Pérez [employer] 05-21-2019 10:42-0500 Body weight 58.06 kg Lyric Beto [employer] 05-21-2019 10:42-0500 BP Diastolic 68 mm[Hg] Lyricchon Pérez [employer] 05-21-2019 10:42-0500 BP Systolic 94 mm[Hg] Lyricchon Pérez [employer] 05-21-2019 10:42-0500 BSA (Body Surface Area) 1.59 m2 Lyric [employer] 05-21-2019 10:42-0500 Height 157.48 cm Lyric [employer] 05-21-2019 10:42-0500 Pulse (Heart Rate) 90 /min Lyric Pérez Rene Cherelle [facility] [employer] 05-11-2019 14:48-0500 BMI (Body Mass Index) 22.95 kg/m2 Hima Rene [employer] 05-11-2019 14:48-0500 Body Temperature 98.8 [degF] Hima Andrade [employer] 05-11-2019 14:48-0500 Body weight 56.93 kg Hima Rene [employer] 05-11-2019 14:48-0500 BP Diastolic 66 mm[Hg] Hima Clemente [employer] 05-11-2019 14:48-0500 BP Systolic 110 mm[Hg] Hima Clemente [employer] 05-11-2019 14:48-0500 BSA (Body Surface Area) 1.58 m2 Hima Rene [employer] 05-11-2019 14:48-0500 Height 157.48 cm Hima [employer] 05-11-2019 14:48-0500 Pulse (Heart Rate) 72 /min Hima Cardoza [facility] [employer] 04-27-2019 15:18-0500 BMI (Body Mass Index) 23.52 kg/m2 Lyric [employer] 04-27-2019 15:18-0500 Body Temperature 98.9 [degF] Lyric [employer] 04-27-2019 15:18-0500 Body weight 56.47 kg Lyric [employer] 04-27-2019 15:18-0500 BP Diastolic 60 mm[Hg] Lyric [employer] 04-27-2019 15:18-0500 BP Systolic 112 mm[Hg] [employer]ric [employer] 04-27-2019 15:18-0500 BSA (Body Surface Area) 1.56 m2 Lyric [employer] 04-27-2019 15:18-0500 Height 154.94 cm Lyric [employer] 04-27-2019 15:18-0500 Pulse (Heart Rate) 80 /min Lyric Villarreal [employer] 04-09-2019 13:38-0500 BMI (Body Mass Index) 22.77 kg/m2 Lyric [employer] 04-09-2019 13:38-0500 Body Temperature 99.4 [degF] Lyric [employer] 04-09-2019 13:38-0500 Body weight 54.66 kg Lyric Pérez [employer] 04-09-2019 13:38-0500 BP Diastolic 70 mm[Hg] Lyric Pérez [employer] 04-09-2019 13:38-0500 BP Systolic 120 mm[Hg] Lyric Pérez [employer] 04-09-2019 13:38-0500 BSA (Body Surface Area) 1.53 m2 Lyric Pérez [employer] 04-09-2019 13:38-0500 Height 154.94 cm Lyric Pérez [employer] 04-09-2019 13:38-0500 Pulse (Heart Rate) 82 /min Lyric Villarreal [employer] 02-06-2019 16:41-0400 BMI (Body Mass Index) 22.77 kg/m2 Lyric Pérez [employer] 02-06-2019 16:41-0400 Body Temperature 98.8 [degF] Lyric Pérez [employer] 02-06-2019 16:41-0400 Body weight 54.66 kg Lyric Pérez [employer] 02-06-2019 16:41-0400 BP Diastolic 70 mm[Hg] Lyric Pérez [employer] 02-06-2019 16:41-0400 BP Systolic 112 mm[Hg] Lyric Rene [employer] 02-06-2019 16:41-0400 BSA (Body Surface Area) 1.53 m2 Lyric Rene [employer] 02-06-2019 16:41-0400 Height 154.94 cm Lyric Rene [employer] 02-06-2019 16:41-0400 Pulse (Heart Rate) 72 /min Lyric rousey [employer] 10-31-2018 16:58-0400 BMI (Body Mass Index) 23.43 kg/m2 Hima Rene [employer] 10-31-2018 16:58-0400 Body weight 56.25 kg Hima Clemente [employer] 10-31-2018 16:58-0400 BP Diastolic 60 mm[Hg] Hima Clemente [employer] 10-31-2018 16:58-0400 BP Systolic 112 mm[Hg] Hima Clemente [employer] 10-31-2018 16:58-0400 BSA (Body Surface Area) 1.56 m2 Hima Rene [employer] 10-31-2018 16:58-0400 Height 154.94 cm Hima Clemente [employer] 10-31-2018 16:58-0400 Pulse (Heart Rate) 72 /min Hima Rene [employer] 10-31-2018 16:58-0400 Weight 56.25 kg Hima Clemente [employer] 08-28-2018 15:49-0400 BMI (Body Mass Index) 22.67 kg/m2 Hima Rene [employer] 08-28-2018 15:49-0400 Body Temperature 98.7 [degF] Hima Andrade [employer] 08-28-2018 15:49-0400 Body weight 54.43 kg Hima Clemente [employer] 08-28-2018 15:49-0400 BP Diastolic 60 mm[Hg] Hima Clemente [employer] 08-28-2018 15:49-0400 BP Systolic 120 mm[Hg] Hima Clemente [employer] 08-28-2018 15:49-0400 BSA (Body Surface Area) 1.53 m2 Hima Rene [employer] 08-28-2018 15:49-0400 Height 154.94 cm Hima Clemente [employer] 08-28-2018 15:49-0400 Pulse (Heart Rate) 66 /min Hima Cardoza [facility] [employer] 08-28-2018 15:49-0400 Weight 54.43 kg Hima Clemente [employer] 02-09-2018 12:10-0400 BMI (Body Mass Index) 23.78 kg/m2 Hima Rene [employer] 02-09-2018 12:10-0400 Body Temperature 98.1 [degF] Hima Andrade [employer] 02-09-2018 12:10-0400 Body weight 58.97 kg Hima Clemente [employer] 02-09-2018 12:10-0400 BP Diastolic 80 mm[Hg] Hima Rene [employer] 02-09-2018 12:100400 BP Systolic 104 mm[Hg] Hima [employer] 02-09-2018 12:100400 BSA (Body Surface Area) 1.61 m2 Hima Rene [employer] 02-09-2018 12:100400 Height 157.48 cm Hima Rene [employer] 02-09-2018 12:100400 Pulse (Heart Rate) 64 /min Hima Rene [employer] 02-09-2018 12:100400 Weight 58.97 kg Hima Rene [employer] 01-11-2018 15:19-0400 BMI (Body Mass Index) 23.32 kg/m2 Hima Rene [employer] 01-11-2018 15:190400 Body weight 57.83 kg Hima Rene [employer] 01-11-2018 15:19-0400 BP Diastolic 68 mm[Hg] Hima [employer] 01-11-2018 15:19-0400 BP Systolic 106 mm[Hg] Hima Rene [employer] 01-11-2018 15:190400 BSA (Body Surface Area) 1.59 m2 Hima Rene [employer] 01-11-2018 15:040 Height 157.48 cm Hima Rene [employer] 01-11-2018 15:19-0400 Pulse (Heart Rate) 76 /min Hima Rene [employer] 09-05-2018 15:19-0400 Weight 57.83 kg Hima Clemente [employer] 08-01-2017 09:57-0400 BMI (Body Mass Index) 23.59 kg/m2 Hima Rene [employer] 08-01-2017 09:57-0400 Body weight 58.51 kg Hima Clemente [employer] 08-01-2017 09:57-0400 BP Diastolic 60 mm[Hg] Hima Clemente [employer] 08-01-2017 09:57-0400 BP Systolic 94 mm[Hg] Hima Clemente [employer] 08-01-2017 09:57-0400 BSA (Body Surface Area) 1.6 m2 Hima Rene [employer] 08-01-2017 09:57-0400 Height 157.48 cm Hima Clemente [employer] 08-01-2017 09:57-0400 Pulse (Heart Rate) 80 /min Hima ma [employer] 08-01-2017 09:57-0400 Weight 58.51 kg Hima Clemente [employer] 01-13-2017 12:02-0400 BMI (Body Mass Index) 22.59 kg/m2 Hima Rene [employer] 01-13-2017 12:02-0400 Body weight 56.02 kg Hima Clemente [employer] 01-13-2017 12:02-0400 BP Diastolic 76 mm[Hg] Hima Faustinncjose elias Clemente [employer] 01-13-2017 12:02-0400 BP Systolic 122 mm[Hg] Hima Faustinnchard [employer] 01-13-2017 12:02-0400 BSA (Body Surface Area) 1.57 m2 Hima Rene [employer] 01-13-2017 12:02-0400 Height 157.48 cm Hima [employer] 01-13-2017 12:02-0400 Pulse (Heart Rate) 72 /min Hima Cardoza [employer] 01-13-2017 12:02-0400 Weight 56.02 kg Hima Rene [employer] 10-29-2016 16:57-0400 BMI (Body Mass Index) 22.13 kg/m2 Hima Rene [employer] 10-29-2016 16:57-0400 Body weight 54.89 kg Hima Rene [employer] 10-29-2016 16:57-0400 BP Diastolic 60 mm[Hg] Hima Rene [employer] 10-29-2016 16:57-0400 BP Systolic 104 mm[Hg] Hima Rene [employer] 10-29-2016 16:57-0400 BSA (Body Surface Area) 1.55 m2 Hima Rene [employer] 10-29-2016 16:57-0400 Height 157.48 cm Hima Rene [employer] 10-29-2016 16:57-0400 Pulse (Heart Rate) 68 /min Hima Cardoza [employer] 10-29-2016 16:57-0400 Weight 54.89 kg Hima Rene [employer] 01-28-2016 17:46-0400 BMI (Body Mass Index) 21.67 kg/m2 Hima Rene [employer] 01-28-2016 17:46-0400 Body weight 53.75 kg Hima Clemente [employer] 01-28-2016 17:46-0400 BP Diastolic 64 mm[Hg] Hima Clemente [employer] 01-28-2016 17:46-0400 BP Systolic 94 mm[Hg] Hima Clemente [employer] 01-28-2016 17:46-0400 BSA (Body Surface Area) 1.53 m2 Hima Rene [employer] 01-28-2016 17:46-0400 Height 157.48 cm Hima Clemente [employer] 01-28-2016 17:46-0400 Pulse (Heart Rate) 64 /min Hima ma [employer] 01-28-2016 17:46-0400 Weight 53.75 kg Hima Clemente [employer] 05-30-2015 16:50-0500 BMI (Body Mass Index) 21.22 kg/m2 Hima Rene [employer] 05-30-2015 16:50-0500 Body Temperature 98 [degF] Hima Andrade [employer] 05-30-2015 16:50-0500 Body weight 52.62 kg Hima Faustinncjose elias Clemente [employer] 05-30-2015 16:50-0500 BP Diastolic 64 mm[Hg] Hima Faustinncjose elias Clemente [employer] 05-30-2015 16:50-0500 BP Systolic 90 mm[Hg] Hima Clemente [employer] 05-30-2015 16:50-0500 BSA (Body Surface Area) 1.52 m2 Hima Rene [employer] 05-30-2015 16:50-0500 Height 157.48 cm Hima Clemente [employer] 05-30-2015 16:50-0500 Pulse (Heart Rate) 92 /min Hima Cardoza [employer] 05-30-2015 16:50-0500 Weight 52.62 kg Hima Rene [employer] 04-08-2015 16:01-0500 BMI (Body Mass Index) 21.28 kg/m2 Hima Rene [employer] 04-08-2015 16:01-0500 Body Temperature 98.4 [degF] Hima Andrade [employer] 04-08-2015 16:01-0500 Body weight 51.94 kg Hima [employer] 04-08-2015 16:01-0500 BP Diastolic 84 mm[Hg] Hima Clemente [employer] 04-08-2015 16:01-0500 BP Systolic 118 mm[Hg] Hima Rene [employer] 04-08-2015 16:01-0500 BSA (Body Surface Area) 1.5 m2 Hima Rene [employer] 04-08-2015 16:01-0500 Height 156.21 cm Hima Clemente [employer] 04-08-2015 16:01-0500 Pulse (Heart Rate) 72 /min Hima Cardoza [employer] 04-08-2015 16:01-0500 Weight 51.94 kg Hima Silver Rene [employer] Encounters Encounter Date Encounter Type Care Provider Facility Start: 10-30-2024 End: 10-30-2024 Clinisync Result Encounter Eleazar Vijaya DO Work Phone: [facility] External Department Unsolicited Start: 10-30-2024 End: 10-30-2024 Clinisync Result Encounter Eleazar Vijaya DO Work Phone: [facility] External Department Unsolicited Start: 10-29-2024 End: 10-29-2024 Bamboo flowsheet Eleazar Vijaya DO Work Phone: [facility] Start: 10-29-2024 End: 10-29-2024 Bamboo flowsheet Eleazar Vijaya DO Work Phone: [facility] Start: 10-29-2024 End: 10-29-2024 Office outpatient visit 15 minutes Eleazar Vijaya DO Work Phone: [facility] Comment on above: Third trimester preg chepe ([facility]); 38 weeks gestation of ([facility]) Start: 10-29-2024 End: 10-29-2024 ambulatory ELEAZAR VIJAYA Not Available Start: 10-23-2024 End: 10-23-2024 Bamboo flowsheet Eleazar [...] Comment on above: Third trimester preg chepe ([facility]); 37 weeks gestation of ([facility]) Start: 10-23-2024 End: 10-23-2024 ambulatory ELEAZAR [...] End: 09-24-2024 Clinisync Result Encounter Gaye Gurpreet MINE PRODUCTION ENGINEER Work Phone: [facility] External Department Unsolicited Start: 09-24-2024 End: 09-24-2024 Clinisync Result Encounter Gaye Gurpreet MINE PRODUCTION ENGINEER Work Phone: [facility] External Department Unsolicited Start: 09-19-2024 End: 09-19-2024 Clinisync Result Encounter Gaye Gurpreet MINE PRODUCTION ENGINEER Work Phone: [facility] External Department Unsolicited Start: 09-19-2024 End: 09-19-2024 Clinisync Result Encounter Gaye Gurpreet MINE PRODUCTION ENGINEER Work Phone: [facility] External Department Unsolicited Start: [...] Result Encounter Gaye Vázquez NP Work Phone: [facility] External Department Unsolicited Start: 08-20-2024 End: 08-20-2024 [...] Not Available Start: 05-18-2024 End: 05-18-2024 ambulatory [facility] Work Phone: Start: 05-18-2024 End: 05-18-2024 Patient encounter procedure [facility] Physician [facility] Work Phone: Start: 04-30-2024 End: 04-30-2024 [...] 04-18-2024 End: 04-18-2024 ambulatory Susana Alonzo PA-C Facility:[facility] Start: 04-16-2024 End: 04-16-2024 Clinisync Result Encounter Eleazar Vijaya DO Work Phone: [facility] External Department Unsolicited Start: 04-16-2024 End: 04-16-2024 Clinisync Result Encounter Eleazar Vijaya DO Work Phone: [facility] External Department Unsolicited Start: 04-16-2024 Non-patient / Non-visit [facility] Physician [facility] Work Phone: Start: 04-13-2024 [...] Not Available Start: 03-19-2024 Non-patient / Non-visit [facility] Work Phone: Start: 03-17-2024 Non-patient / Non-visit [facility] Work Phone: Start: 03-14-2024 [...] Department Unsolicited Start: 03-08-2024 Non-patient / Non-visit [facility] Work Phone: Start: 03-07-2024 End: 03-07-2024 ambulatory Ana Simmons CHECKER PRODUCT DESIGN-CLERK OPERATOR Facility: [facility] Start: 03-02-2024 Non-patient / Non-visit [facility] Physician [facility] Work Phone: Start: 02-29-2024 Non-patient / Non-visit [facility] Physician [facility] Work Phone: Start: 02-28-2024 Non-patient / Non-visit [facility] Work Phone: Start: 02-28-2024 End: 02-28-2024 Phys/qhp telephone evaluation 5-10 min Eleazar Vijaya DO Work Phone: [facility] Comment on above: Early stage of pregn ana Start: 02-27-2024 Non-patient / Non-visit [facility] Work Phone: Start: 02-21-2024 Non-patient / Non-visit [facility] Work Phone: Start: 02-08-2024 [...] Available Start: 02-02-2024 End: 02-02-2024 Departed Referred CHECKER PRODUCT DESIGN Jodie Portillo Work Phone: [facility] [place] Work Phone: Start: 02-02-2024 End: 02-02-2024 ambulatory Jodie Portillo [facility] Work Phone: Start: 02-02-2024 End: 02-02-2024 Patient encounter procedure [facility] Physician [facility] Work Phone: Start: 01-24-2024 End: 01-24-2024 ambulatory [facility] Work Phone: Start: 01-24-2024 End: 01-24-2024 Patient encounter procedure [facility] Physician [facility] Work Phone: Start: 01-24-2024 End: 01-24-2024 ambulatory Mike Jones Facility:TONY Rodríguez Start: 01-19-2024 Non-patient / Non-visit [facility] Physician [facility] Work Phone: Start: 01-03-2024 End: 01-03-2024 ambulatory [facility] Work Phone: Start: 01-03-2024 End: 01-03-2024 Patient encounter procedure [facility] Physician [facility] Work Phone: Start: 08-10-2023 End: 08-10-2023 ambulatory Ana Simmons CHECKER PRODUCT DESIGN-CLERK OPERATOR Facility: [facility] Start: 07-21-2023 End: 07-21-2023 ambulatory [facility] Work Phone: Start: 07-21-2023 End: 07-21-2023 Patient encounter procedure [facility] Physician [facility] Work Phone: Start: 06-28-2023 ambulatory Amara DE PAZC Facility:[facility] Start: 06-27-2023 End: 06-27-2023 ambulatory Susana Alonzo PA-C Facility:[facility] Start: 06-22-2023 End: 06-22-2023 ambulatory Ana Marysenicholas Simmons APRN-CLERK OPERATOR Facility: [facility] Start: 03-26-2023 End: 03-26-2023 ambulatory Jodie Portillo Other [employer] Other Start: 03-26-2023 Office outpatient vi sit 15 minutes Jodie Portillo [facility] Start: 10-02-2022 End: 10-02-2022 ambulatory Deidra Castlemond Other [employer] Other Start: 10-02-2022 Office outpatient ne w 20 minutes Deidra Barbara [facility] Start: 05-21-2019 Office outpatient vi sit 15 minutes Lyric Pérez Other [facility] Start: 05-11-2019 Lab [facility] Other [facility] Start: 05-11-2019 Office outpatient vi sit 15 minutes Lyric Pérez Other [facility] Start: 04-27-2019 Office outpatient vi sit 15 minutes Lyric Pérez Other [facility] Start: 04-09-2019 Office outpatient vi sit 15 minutes Lyric Pérez Other [facility] Start: 02-06-2019 Office outpatient vi sit 15 minutes Lyric Pérez Other [facility] Start: 10-31-2018 Routine general medi brad examination at a health care facility [facility] [id number] Start: 10-31-2018 Lab [facility] Other [facility] Start: 10-31-2018 Office outpatient vi sit 15 minutes Cheryl Dobbins Other [facility] Start: 08-28-2018 Lab [facility] Other [facility] Start: 08-28-2018 Office outpatient vi sit 15 minutes Cheryl Dobbins Other [facility] Office Start: 04-20-2018 End: 04-20-2018 Emergency department patient visit [facility] Start: 03-08-2018 Lab Enrique Sanchezsusy yossi Other [facility] Office Start: 03-08-2018 Office outpatient vi sit 15 minutes Vinita José Luis Other [facility] Office Start: 02-09-2018 Office outpatient vi sit 15 minutes Lyric Pérez Other [facility] Office Start: 02-03-2018 End: 02-03-2018 Lab Enrique Sanchezbrough Other [facility] Office Start: 01-30-2018 Lab Enrique Danielsusy yossi Other [facility] Office Start: 01-30-2018 Office outpatient vi sit 15 minutes Vinita José Luis Other [facility] Office Start: 01-11-2018 Office outpatient vi sit 15 minutes Lyric Pérez Other [facility] Office Start: 12-28-2017 Office outpatient vi sit 15 minutes Vinita José Luis Other [facility] Office Start: 12-28-2017 Lab Enrique Sanchezsusy yossi Other [facility] Office Start: 08-01-2017 Office outpatient vi sit 25 minutes Lyric Pérez Other [facility] Office Start: 07-28-2017 End: 07-28-2017 Emergency department patient visit [facility] Start: 01-13-2017 Office outpatient vi sit 15 minutes Rachel Ly Other [facility] Office Start: 10-29-2016 Office outpatient vi sit 15 minutes Rachel Ly Other [facility] Office Start: 06-07-2016 Office outpatient vi sit 15 minutes Enrique José Luis Other [facility] Office Start: 04-23-2016 Office outpatient vi sit 15 minutes Enrique José Luis Other [facility] Office Start: 03-19-2016 Office outpatient vi sit 15 minutes Enrique José Luis Other [facility] Office Start: 02-12-2016 Office outpatient ne w 20 minutes Enrique José Luis Other [facility] Office Start: 01-28-2016 Office outpatient vi sit 15 minutes Lyric Pérez Other [facility] Office Start: 05-30-2015 Office outpatient vi sit 15 minutes Lyric Pérez Other [facility] Office Start: 04-08-2015 Office outpatient ne w 20 minutes Lyric Pérez Other [facility] Office Procedures Date Procedure Procedure Detail Performing Clinician Start: 10-30-2024 US OB BPP W NON-STRESS Eleazar Vijaya DO Work Phone: Start: 10-23-2024 US OB BPP W NON-STRESS [...] Work Phone: Start: 10-14-2024 [facility] UA (CLEAN/CATCH) BUSINESS SYSTEMS LEAD/MICRO IF IND. Eleazar Vijaya DO Work Phone: Start: 10-09-2024 US OB BPP W NON-STRESS Eleazar Vijaya DO Work Phone: Start: 10-02-2024 US OB BPP W NON-STRESS Eleazar Vijaya DO Work Phone: Start: 09-25-2024 US OB BPP W NON-STRESS Eleazar Vijaya DO Work Phone: Start: 09-24-2024 ALL CBC WITH AUTO DIFF Gaye Vázquez MINE PRODUCTION ENGINEER Work Phone: Start: 09-19-2024 [facility] CMP (CMP) (FOR R EMOTE [facility] USE) Gaye Vázquez MINE PRODUCTION ENGINEER Work Phone: Start: 09-18-2024 US OB GROWTH Eleazar Fazi o DO Work Phone: Start: 09-13-2024 Urnls dip stick/tabl et rgnt non-auto w/o micrscp Eleazar Vijaya DO Work Phone: Start: 08-20-2024 ALL CBC WITH AUTO DIFF Gaye Gurpreet MINE PRODUCTION ENGINEER Work Phone: Start: 08-20-2024 Urnls dip stick/tabl [...] [facility] Start: 05-11-2019 EBV Complete Series [place] adalgisa Pérez Start: 04-27-2019 Doc meds verified [...] meds verified w/ pt or re [facility] Start: 08-28-2018 Urnls dip stick/tabl et rgnt auto w/o microscopy [facility] Start: 04-20-2018 Radex spine lumbosac ral 2/3 [...] meds verified w/ pt or re [facility] Start: 02-03-2018 Urine test visual color cmprsn meths [facility] Start: 01-30-2018 Doc meds verified w/ pt or re [facility] Start: 01-30-2018 Urine test visual color cmprsn meths [facility] Start: 01-11-2018 Doc meds verified w/ pt or re [facility] Start: 12-28-2017 Doc meds verified w/ pt or re [facility] Start: 12-28-2017 Gonadotropin chorion ic qualitative [facility] [...] meds verified w/ pt or re [facility] Start: 06-07-2016 Assay of triglycerides [facility] Start: 06-07-2016 Blood count complete auto&auto difrntl wbc [facility] Start: 06-07-2016 Cholesterol serum/wh ole blood total [facility] Start: 06-07-2016 Gonadotropin chorion ic qualitative [facility] Start: 06-07-2016 Hepatic function panel [facility] Start: 04-23-2016 Urine test visual color cmprsn meths [facility] Start: 03-19-2016 Urine test visual color cmprsn [...] a Vaccine (Season Ended) [facility] Start: 11-05-2024 End: 11-05-2024 Patient encounter procedure 11/05/2024 8:30 AM EDT Routine [facility] [address] [place] [id number] Eleazar Lilly, [address] [place], [place] [id number] [facility] Start: 10-29-2024 End: 10-29-2024 Patient encounter procedure [facility] Comment on above: Arrived Start: 10-23-2024 End: 10-23-2024 Patient encounter procedure [...] AM EDT Routine [facility] [address] [place] [phone] Cheryl Baugh PA [address] [place] [address] [facility] Start: 09-13-2024 End: 01-14-2025 US for US OB follow up transabdominal approach Imaging Routine size inconsistent with dates Expected: 09/13/2024, Expires: 01/14/2025 [facility] Work Phone: Comment on above: Expected: 09/13/2024 , Expires: 01/14/2025 Start: 09-13-2024 End: 09-13-2024 Patient encounter procedure 09/13/2024 10:30 AM EDT Routine [facility] [address] [place] [phone] Eleazar Lilly, DO [address] [place], [place] [id number] Arrived [facility] Comment on above: Arrived Start: 09-10-2024 End: 09-10-2024 Patient encounter procedure 09/10/2024 10:40 AM EDT Routine [facility] [address] [place] [phone] Eleazar Lilly, DO [address] [place] [address] [facility] Start: 08-20-2024 End: 08-20-2024 Patient encounter procedure [facility] Comment on above: Arrived Start: 07-23-2024 End: 07-23-2025 CBC panel - Blood by Automated count CBC Lab Routine Diabetes mellitus screening Expected: 07/23/2024 (Approximate), Expires: 07/23/2025 [facility] Work Phone: Comment on above: Expected: 07/23/2024 (Approximate), Expires: 07/23/2025 Start: 07-23-2024 End: 03-17-2026 Measurement of glucose 1 hour after glucose challenge for glucose tolerance test Glucose tolerance, 1 hour Lab Routine Diabetes mellitus screening Expected: 07/23/2024 (Approximate), Expires: 07/23/2025 [facility] Comment on above: Expected: 07/23/2024 (Approximate), Expires: 07/23/2025 Start: 07-23-2024 End: 07-23-2024 Patient encounter procedure 07/23/2024 10:20 AM EDT Routine [facility] [address] [facility] [place] [address] Cheryl Baugh PA [address] [place], [place] [id number] [facility] Start: 07-23-2024 End: 07-23-2024 Professional / ancillary services management 07/23/2024 9:00 AM EDT Ancillary Procedure [facility] [address] [facility] [place] [address] [facility] Start: 06-26-2024 End: 06-26-2025 US for US OB limited 1+ fetuses Imaging Routine Low-lying placenta Expected: 06/26/2024, Expires: 06/26/2025 [facility] Work Phone: Comment on above: Expected: 06/26/2024 , Expires: 06/26/2025 Start: 06-26-2024 End: 06-26-2024 Patient encounter procedure [facility] Comment on above: Arrived Start: 05-28-2024 End: 11-25-2024 Alpha fetoprotein, maternal Alpha fetoprotein, maternal Lab Routine Second trimester Expected: 05/28/2024 (Approximate), Expires: 11/25/2024 [facility] Comment on above: Expected: 05/28/2024 (Approximate), Expires: 11/25/2024 Start: 05-28-2024 End: 05-28-2025 US for US OB 14+ weeks anatomy scan Imaging Routine Screening, , for anatomic survey Expected: 05/28/2024, Expires: 05/28/2025 [facility] Work Phone: Comment on above: Expected: 05/28/2024 , Expires: 05/28/2025 Start: 05-28-2024 End: 05-28-2024 Patient encounter procedure 05/28/2024 1:10 PM EST Routine [facility] [address] [address] [facility] [address] Cheryl Baugh PA [address] [place] [address] Arrived [facility] Comment on above: Arrived Start: 04-30-2024 End: 04-30-2024 Patient encounter procedure 04/30/2024 10:10 AM EST Routine [facility] [address] [facility] [address] [address] Eleazar Lilly, DO [address] [place] [address] 12 weeks gestation of ; Second trimester [facility] Comment on above: 12 weeks gestation o f ; Second trimester Start: 04-23-2024 End: 04-23-2024 Patient encounter procedure 04/23/2024 10:50 AM EST Routine [facility] [address] [facility] [phone] Eleazar Lilly, DO [address] [place] [address] [facility] Start: 03-23-2024 End: 03-23-2025 [...] Initial [facility] [address] [place] [phone] [facility] Start: 03-23-2024 End: 03-23-2024 Professional / ancillary services management 03/23/2024 9:30 AM EST Ancillary Procedure [facility] [address] [place] [phone] [facility] Start: 03-14-2024 End: 03-14-2024 Patient encounter procedure 03/14/2024 1:30 PM EST Office Visit [facility] [address] [place] [phone] Eleazar Lilly, DO [address] [place] [address] Arrived [facility] Comment on above: Arrived Start: 02-28-2024 End: 02-28-2024 Patient encounter procedure 02/28/2024 8:10 AM EDT Office Visit [facility] [address] [place] [phone] Eleazar Lilly, DO [address] [place] [address] [facility] Start: 02-08-2024 End: 02-07-2025 SURESWAB(R) ADVANCED VAGINITIS PLUS, TMA SURESWAB(R) ADVANCED VAGINITIS PLUS, TMA Pathology and Cytology Routine Pelvic pain in female Expected: 02/08/2024 (Approximate), Expires: 02/07/2025 [facility] Work Phone: Comment on above: Expected: 02/08/2024 (Approximate), Expires: 02/07/2025 Start: 02-08-2024 End: 02-07-2025 US for US PELVIS-TRANSVAG IF INDICATED Imaging Routine Pelvic pain in female Expected: 02/08/2024 (Approximate), Expires: 02/07/2025 [facility] Comment on above: Expected: 02/08/2024 (Approximate), Expires: 02/07/2025 Start: 02-08-2024 End: 02-08-2024 Patient encounter procedure 02/08/2024 1:20 PM EDT Office Visit [facility] OB [address] [address] [facility] [address] Eleazar Lilly, DO [address] [place] [address] Arrived [facility] Comment on above: Arrived Start: 02-02-2024 [facility] Start: 01-08-2024 Influenza vaccination Influenza Vacc ine (#1) [facility] Start: 05-11-2019 Blood count complete auto&auto difrntl wbc CBC w diff [facility] Start: 05-11-2019 TSH Qn TSH [facility] Start: 11-02-2018 Blood count complete automated CBC & PLATELET COUNT; AUTOMATED [facility] Start: 11-02-2018 Comprehensive metabo lic panel Comprehensive metabolic panel [facility] Start: 11-02-2018 Gonadotropin chorion ic qualitative SERUM [facility] Start: 11-02-2018 Hemoglobin A1c/Hemoglobin.total mass fraction (Bld) Hgb A1c [facility] Start: 11-02-2018 Lipid panel Lipid panel [facility] Start: 11-02-2018 Thyrotropin Qn TSH (thyroid s timulating hormone) [facility] Start: 11-02-2018 Urnls dip stick/tabl et rgnt auto w/o microscopy UA [facility] Atopobium vaginae DN A [Presence] in Vaginal fluid by [facility] with probe detection [facility] Bacteria identified in Urine by Culture Urine culture Microbiology Routine Missed menses Ordered: 03/23/2024 [facility] Comment on above: Ordered: 03/23/2024 Bacterial vaginosis associated bacterium 2 DNA [Presence] in Vaginal fluid by ELDON with probe detection [facility] CBC W Auto Different ial panel - Blood CBC and differential Lab Routine Missed menses , unspecified gestational age Ordered: 03/23/2024 [facility] Comment on above: Ordered: 03/23/2024 CBC W Auto Different ial panel - Blood CBC and differential Lab Routine Third trimester Ordered: 08/20/2024 [facility] Comment on above: Ordered: 08/20/2024 CHLAMYDIA TRACHOMATI S (GENITO/STI) CHLAMYDIA TRACHOMATIS (GENITO/STI) Lab Routine Pelvic pain in female Ordered: 02/08/2024 [facility] Comment on above: Ordered: 02/08/2024 CHLAMYDIA TRACHOMATI S (GENITO/STI) CHLAMYDIA TRACHOMATIS (GENITO/STI) Lab Routine STD exposure Ordered: 05/28/2024 [facility] Comment on above: Ordered: 05/28/2024 Cytology Cervical or vaginal smear or scraping study Pap Smear Pathology and Cytology Routine Well woman exam with routine gynecological exam Ordered: 05/28/2024 [facility] Comment on above: Ordered: 05/28/2024 Estradiol (E2) [Mass/volume] in Serum or Plasma [facility] Estrogen [Mass/volum e] in Serum or Plasma [facility] Hemoglobin A1c/Hemoglobin.total in Blood Hemoglobin A1c Lab Routine Missed menses , unspecified gestational age Ordered: 03/23/2024 [facility] Comment on above: Ordered: 03/23/2024 Hemoglobin A1c/Hemoglobin.total in Blood Hemoglobin A1c Lab Routine Third trimester Ordered: 08/20/2024 [facility] Work Phone: Comment on above: Ordered: 08/20/2024 Hepatitis B virus surface Ag [Presence] in Serum or Plasma by Immunoassay Hepatitis B surface antigen Lab Routine Missed menses , unspecified gestational age Ordered: 03/23/2024 [facility] Comment on above: Ordered: 03/23/2024 Hepatitis C virus Ab [Presence] in Serum or Plasma by Immunoassay Hepatitis C antibody Lab Routine Missed menses , unspecified gestational age Ordered: 03/23/2024 [facility] Comment on above: Ordered: 03/23/2024 HIV-1/HIV-2 antigen/antibody combination immunoassay HIV-1 and HIV-2 antibodies Lab Routine Missed menses , unspecified gestational age Ordered: 03/23/2024 [facility] Comment on above: Ordered: 03/23/2024 Holter monitor study [facility] Lutropin [Units/volu me] in Serum or Plasma [facility] Megasphaera sp type 1 DNA [Presence] in Vaginal fluid by ELDON with probe detection [facility] Neisseria gonorrhoea e DNA [Presence] in Unspecified specimen by ELDON with probe detection Neisseria gonorrhea DNA probe, direct Lab Routine Pelvic pain in female Ordered: 02/08/2024 [facility] Comment on above: Ordered: 02/08/2024 Neisseria gonorrhoea e DNA [Presence] in Unspecified specimen by ELDON with probe detection Neisseria gonorrhea DNA probe, direct Lab Routine STD exposure Ordered: 05/28/2024 [facility] Comment on above: Ordered: 05/28/2024 Progesterone [Mass/volume] in Serum or Plasma [facility] Reagin Ab [Presence] in Serum by RPR RPR Lab Routine Missed menses , unspecified gestational age Ordered: 03/23/2024 [facility] Comment on above: Ordered: 03/23/2024 Rubella antibody, IgG Rubella an tibody, IgG Lab Routine Missed menses , unspecified gestational age Ordered: 03/23/2024 [facility] Comment on above: Ordered: 03/23/2024 SURESWAB(R) ADVANCED VAGINITIS PLUS, TMA SURESWAB(R) ADVANCED VAGINITIS PLUS, TMA Pathology and Cytology Routine Vaginal discharge Ordered: 05/28/2024 [facility] Comment on above: Ordered: 05/28/2024 XR Cervical spine 5 Views [facility] XR Thoracic and lumb ar spine Views for scoliosis [facility] Payers Date Payer Category Payer Self-pay 2022 Medicaid [id number] 2022 Medicaid [id number] 2. [id number] 2022 Unknown 2015 Unknown [id number] 2.16 .840.1.215373.3.441 2014 Unknown [id number] 1996 Unknown [id number] 2.16.8 40.1.791964.3.579.2.173 1996 Unknown [id number] 2.16.8 40.1.419929.3.579.2.173 1996 Unknown [id number] 2.16. 840.1.180997.3.579.2.196 1996 Unknown [id number] 2.16. 840.1.546057.3.579.2.196 1996 Unknown [id number] 2.16. 840.1.676234.3.579.2.196 1996 Unknown [id number] 2.16. 840.1.475340.3.579.2.196 1996 Unknown [id number] 2.16. 840.1.404747.3.579.2.196 1996 Unknown [id number] 2.16. 840.1.001257.3.579.2.196 1996 Unknown [id number] 2.16. 840.1.879268.3.579.2.196 1996 Unknown [id number] 2.16.8 40.1.589487.3.579.2.9 1996 Unknown [id number] 2.16.8 40.1.089421.3.579.2.1258 1996 Unknown [id number] 2.16.8 40.1.504780.3.579.2.9 1996 Unknown [id number] 2.16.84 0.1.384411.3.579.2.9 1996 Unknown [id number] 2.16.84 0.1.329389.3.579.2.9 1996 Unknown [id number] 2.16.84 0.1.850941.3.579.2.1258 1996 Unknown [id number] 2.16.84 0.1.080777.3.579.2.9 1996 Unknown [id number] 2.16.84 0.1.724916.3.579.2.9 1996 Unknown [id number] 2.16.84 0.1.700367.3.579.2.1258 1996 Unknown [id number] 2.16.84 0.1.574796.3.579.2.9 1996 Unknown [id number] 2.16.84 0.1.143183.3.579.2.9 1996 Unknown [id number] 2.16.84 0.1.870085.3.579.2.9 1996 Unknown [id number] 2.16.84 0.1.636769.3.579.2.9 1996 Unknown [id number] 2.16.84 0.1.228783.3.579.2.1258 Unknown [id number] 2.16.8 40.1.422279.3.579.2.531 Social History Date Type Detail Facility Start: Unknown if ever smoked [facility] [employer] Start: 1 can pop/day [employer] Sex Assigned At [facility] Other Start: 07-21-2023 End: 02-02-2024 Tobacco smoking status NHIS Never smoked tobacco (finding) [facility] Start: 1995 Sex Assigned At Female F [facility] Tobacco smoking status PRIS Tobacco smoking consumption unknown [facility] Start: 1995 Sex assigned at Not on file [facility] Start: 02-17-2024 [facility] Start: 05-18-2024 Sex Female (finding) [facility] Clinical Notes 10-02-2022 to 10-29-2024 Gaye Vázquez NP - 10/29/2024 8:20 AM Baldomero Xavier LPN - 10/23/2024 9:00 AM Baldomero Xavier LPN - 10/16/2024 10:10 AM CYNTHIA Hurd - 10/02/2024 9:10 AM EDT Note Date & Type Note Facility 10-29-2024 History of Present illness Narrative Reason for [...] Diagnosis Date Noted Nausea and vomiting in ([facility]) 04/16/2024 12 weeks gestation of ([facility]) 04/30/2024 Second trimester ([facility]) 04/30/2024 Resolved Ambulatory Problems Diagnosis Date Noted [...] nursing note reviewed. Exam conducted with a geodetic engineer present. Vitals: Estimated body mass index is 27.85 kg/m as calculated from the following: Height as of 24: 5' 1 . Weight as of this encounter: 147 lb 6.4 oz. BP: 120/74 Patient's last menstrual period was 01/23/2024. ASSESSMENT & PLAN ICD-10-CM 1. Third trimester ([facility]) Z34.93 2. 38 weeks gestation of ([facility]) Z3A.38 Return OB: Patient presents today for a routine obstetrics appointment. Patient is currently 38w3d . Patient states she is doing well but has complaints of being tired due to current . Patient has verbalizes frequent movement. labor precautions was discussed/given and patient was instructed to perform kick counts three times a day. No orders of the defined types were placed in this encounter. Follow Up: Patient is to return to office in 1 week for routine OB appointment. Documented by Gaye Vázquez NP on behalf of: Eleazar Lilly DO documented in this encounter [facility] 10-23-2024 History of Present illness Narrative Reason [...] Diagnosis Date Noted Nausea and vomiting in ([facility]) 04/16/2024 12 weeks gestation of ([facility]) 04/30/2024 Second trimester ([facility]) 04/30/2024 Resolved Ambulatory Problems Diagnosis Date Noted [...] nursing note reviewed. Exam conducted with a geodetic engineer present. Vitals: Estimated body mass index is 27.59 kg/m as calculated from the following: Height as of 24: 5' 1 . Weight as of this encounter: 146 lb. BP: 124/78 Patient's last menstrual period was 01/23/2024. ASSESSMENT & PLAN ICD-10-CM 1. Third trimester ([facility]) Z34.93 POCT urinalysis dipstick manually resulted 2. 37 weeks gestation of ([facility]) Z3A.37 Return OB: Patient presents today for [...] Eleazar Lilly DO documented in this encounter [facility] 10-16-2024 History of Present illness Narrative Reason [...] nursing note reviewed. Exam conducted with a geodetic engineer present. Vitals: Estimated body mass index is [...] Eleazar Lilly DO documented in this encounter [facility] 10-02-2024 History of Present illness Narrative Reason [...] CYNTHIA Del Cid documented in this encounter [facility] 09-13-2024 History of Present illness Narrative [...] Eleazar Lilly DO documented in this encounter [facility] 08-20-2024 History of Present illness Narrative [...] nursing note reviewed. Exam conducted with a geodetic engineer present. Vitals: Estimated body mass index is [...] of: LYNN Duran documented in this encounter [facility] 07-23-2024 History of Present illness Narrative [...] CYNTHIA Del Cid documented in this encounter [facility] 06-26-2024 History of Present illness Narrative [...] nursing note reviewed. Exam conducted with a geodetic engineer present. Vitals: Estimated body mass index is [...] Eleazar Lilly DO documented in this encounter [facility] 05-28-2024 History of Present illness Narrative [...] nursing note reviewed. Exam conducted with a geodetic engineer present. Vitals: Estimated body mass index is [...] obtained without difficulty and patient was given [facility] order to have obtained. Orders Placed This Encounter Procedures US OB 14+ weeks anatomy scan Alpha fetoprotein, maternal CHLAMYDIA TRACHOMATIS (GENITO/STI) Neisseria gonorrhea DNA probe, direct POCT urinalysis dipstick manually resulted Follow Up: Patient is to return to our office in 4 weeks for routine OB appointment Documented by Nimco Mojica LPN on behalf of: CYNTHIA Del Cid documented in this encounter [facility] 04-30-2024 History of Present illness Narrative [...] week for routine OB appointment. Documented by gNa Cormier MA on behalf of: Eleazar Lilly DO documented in this encounter [facility] 03-23-2024 History of Present illness Narrative [...] or undercooked meat, and stay away from [facility]. Patient has also been advised to [...] Alana Gongora LPN documented in this encounter [facility] 03-14-2024 History of Present illness Narrative [...] nursing note reviewed. Exam conducted with a geodetic engineer present. Vitals: Estimated body mass index is [...] Eleazar Lilly DO documented in this encounter [facility] 03-02-2024 Note Patient Education Ma terials Name: ManjinderGiancarlo Current Date: 03/02/2024 06:56:41 [place] : 1995 [...] breast self-exam (BSE). These experts include the [employer] and the [employer]. Some experts [...] This means they are not cancer. ? [id number] The [employer]. All rights reserved. This information is not intended as a substitute for professional medical care. Always follow your healthcare professional's instructions. [facility] 02-28-2024 History of Present illness Narrative Reason for Appointment: Patient ID: Giancarlo Celaya is a 28 y.o. female who presents for Telehealth (Pt had ultrasound and positive HCG) Patient presents today via telephone call for a telehealth appointment. Patients Phone #: [phone] (mobile) Current Medications: has a current medication [...] Eleazar Lilly DO documented in this encounter [facility] 02-08-2024 History of Present illness Narrative [...] nursing note reviewed. Exam conducted with a geodetic engineer present. Vitals: Estimated body mass index is [...] Eleazar Lilly DO documented in this encounter [facility] 03-26-2023 Evaluation note Encounter Date Diagnosis [...] verbalized understanding and agrees with treatment plan [facility] Other 05-27-2023 Evaluation note* Encounter Date Diagnosis [...] no improvement in 2 to 3 days [facility] Other Evaluation note* Diagnosis Onset Date Resolution Status Acquired scoliosis acute Daily headache acute Fatigue acute Hot flashes acute Irregular menstrual cycle ac hans Neck pain [facility] Work Phone: Evaluation note* Diagnosis Onset Date Resolution Status Dizziness acute Heart palpitations [facility] Work Phone: Evaluation note* Diagnosis Onset Date Resolution Status Dizziness acute Heart palpitations acute Anxiety acute Depression acute [facility] Work Phone: evaluation note* Diagnosis Onset Date Resolution Status Dizziness acute Heart palpitations acute Anxiety acute Depression acute Vaginal discharge noneactive Acute effusion of both middle ears noneactive [facility] Work Phone: evaluation note* Diagnosis [...] tube dysfunction acute May 18, 2024 10:24am [facility] Work Phone: evaluation note* Diagnosis Screening, [...] of (HHS-HCC) [facility] Diagnosis Third trimester (HHS-HCC) state, incidental 38 weeks gestation of (HHS-HCC) documented in this [...] DATE CREATED AUTHOR AUTHOR'S ORGANIZ ATION 12/02/2019 [facility] DATE CREATED AUTHOR AUTHOR'S ORGANIZ ATION 02/06/2024 [facility] DATE CREATED AUTHOR AUTHOR'S ORGANIZ ATION 05/26/2024 [facility] DATE CREATED AUTHOR AUTHOR'S ORGANIZ ATION 10/30/2024 [facility] EPIC REASON FOR VISIT (unrecogniz [...] Member Role Status Dates Evelyn Vu APRN MINE PRODUCTION ENGINEER-C Primary Care Provider Active Team Status: Inactive Member Role Status Dates Evelyn Vu APRN MINE PRODUCTION ENGINEER-C Primary Care Provider, Attending Provider Active Start: July 21, 2023 End: July 21, 2023 Team Status: Inactive Member Role Status Dates Evelyn Vu APRN MINE PRODUCTION ENGINEER-C Primary Care Provider, Attending Provider Active Start: January 03, 2024 End: January 03, 2024 Team Status: Active Member Role Status Dates Evelyn Vu APRN MINE PRODUCTION ENGINEER-C Primary Care Provider Active Start: January 072023 Ty Aguilar DO Attending Provider Active S tart: January 19, 2024 Team Status: Inactive Member Role Status Dates Evelyn Vu APRN MINE PRODUCTION ENGINEER-C Primary Care Provider, Attending Provider Active Start: January 24, 2024 End: January 24, 2024 Team Status: Inactive Member Role Status Dates Evelyn Vu APRN MINE PRODUCTION ENGINEER-C Primary Care Provider Active Start: January 082023 End: February 02, 2024 Jodie Portillo APRN Attending Provider Active Start: February 02, 2024 End: February 02, 2024 Team Status: Inactive Member Role Status Dates Jodie Portillo APRN Attending Provider Active Start: February 02, 2024 End: February 02, 2024 Personal Lines Account Executive Relationship Specialty Start Date End Date Corwin Dee DO [address] [place] [address] PCP - General Family Medicine 09/14/22 Personal Lines Account Executive Relationship Specialty Start Date End Date Corwin Dee DO [address] [place] [id number] PCP - General Family Medicine 09/14/22 Personal Lines Account Executive Relationship Specialty Start Date End Date Corwin Dee, DO [address] [place] [address] PCP - General Family Medicine 09/14/22 Personal Lines Account Executive Relationship Specialty Start Date End Date Corwin Dee, DO [address] [place] [address] PCP - General Family Medicine 09/14/22 Personal Lines Account Executive Relationship Specialty Start Date End Date Unallocated, Berto Bermudez MD [facility] [place] [address] PCP - General Family Medicine 02/28/24 Personal Lines Account Executive Relationship Specialty Start Date End Date Unallocated, Berto Bermudez MD [facility] [place] [address] PCP - General Family Medicine 02/28/24 Personal Lines Account Executive Relationship Specialty Start Date End Date Unallocated, Berto Bermudez MD [facility] [address] [facility] [place] [place] [address] PCP - General Family Medicine 02/28/24 Personal Lines Account Executive Relationship Specialty Start Date End Date Unallocated, Berto Bermudez MD [facility] [place] [address] PCP - General Family Medicine 02/28/24 Personal Lines Account Executive Relationship Specialty Start Date End Date Unallocated, Berto Bermudez MD [facility] [address] [facility] [place] [address] PCP - General Family Medicine 02/28/24 Personal Lines Account Executive Relationship Specialty Start Date End Date Unallocated, Berto Bermudez MD [facility] [address] [facility] [place] [address] PCP - General Family Medicine 02/28/24 Personal Lines Account Executive Relationship Specialty Start Date End Date Unallocated, [place] [address] PCP - General Family Medicine 02/28/24 Team [...] Aguilar , Attending Provider Active S tart: March 02, [...] May 18, 2024 End: May 18, 2024 Personal Lines Account Executive Relationship Specialty Start Date End Date Unallocated, Berto Bermudez MD [facility] [place] [place] [address] PCP - General Family Medicine 02/28/24 Personal Lines Account Executive Relationship Specialty Start Date End Date Unallocated, [place] [address] PCP - General Family Medicine 02/28/24 Personal Lines Account Executive Relationship Specialty Start Date End Date Unallocated, [place] [address] PCP - General Family Medicine 02/28/24 Personal Lines Account Executive Relationship Specialty Start Date End Date Unallocated, Berto Bermudez MD [facility] [address] [facility] [place] [address] PCP - General Family Medicine 02/28/24 Personal Lines Account Executive Relationship Specialty Start Date End Date Unallocated, Berto Bermudez MD [facility] [address] [facility] [place] [address] PCP - General Family Medicine 02/28/24 Personal Lines Account Executive Relationship Specialty Start Date End Date Unallocated, Berto Bermudez MD [facility] [address] [facility] [place] [address] PCP - General Family [facility] 02/28/24 Personal Lines Account Executive Relationship Specialty Start Date End Date Unallocated, Berto Bermudez MD [facility] [address] [facility] [place] [place] [address] PCP - General Family Medicine 02/28/24 Personal Lines Account Executive Relationship Specialty Start Date End Date Unallocated, Berto Bermudez MD [facility] [place] [address] PCP - General Family Medicine 02/28/24 Personal Lines Account Executive Relationship Specialty Start Date End Date Unallocated, Berto Bermudez MD [facility] [address] [facility] [place] [address] PCP - General Family Medicine 02/28/24 Goals [...] BE BASED ON THE PRIMARY CLINICAL RECORDS. [facility] [employer] [facility]. provides no warranty or guarantee of the accuracy or completeness of information in this document.
[2024-10-31 07:00] LABS: Hematocrit 34.9 % (36.0-48.0); Hemoglobin 12.2 g/dL (12.0-16.0); Mean Corpuscular Hemoglobin 29.9 pg (26.7-34.0); Mean Corpuscular Volume 85.5 fL (81.0-99.0); Mean Platelet Volume 11.8 fL (9.5-13.5); Platelet Count 151 10^3/uL (150-450); Red Blood Count 4.08 10^6/uL (4.20-5.40); Red Cell Distribution Width 13.1 % (11.0-15.0); White Blood Count 10.5 10^3/uL (4.0-11.0)
[2024-10-31] MEDS: 0.9 % SODIUM CHLORIDE 1,000 ML 125 ML IV (07:10)
[2024-10-31] MEDS: OXYTOCIN/0.9 % SODIUM CHLORIDE 10 UNITS/500 ML PLAST..BAG 6 UNIT IV (07:15)
[2024-10-31] MEDS: AMPICILLIN SODIUM 2,000 MG in 0.9 % SODIUM CHLORIDE 100 ML 200 MG IV (07:15)
[2024-10-31 07:16] LABS: Amphetamine Screen Urine NEGATIVE (NEGATIVE); Barbiturates Screen Urine NEGATIVE (NEGATIVE); Benzodiazepines Screen Urine NEGATIVE (NEGATIVE); Buprenorphine Screen Urine NEGATIVE (NEGATIVE); Cannabinoid Screen Urine NEGATIVE (NEGATIVE); Cocaine Screen Urine NEGATIVE (NEGATIVE); Methadone Screen Urine NEGATIVE (NEGATIVE); Methamphetamines Screen Urine NEGATIVE (NEGATIVE); Opiate Screen Urine NEGATIVE (NEGATIVE); Oxycodone Screen Urine NEGATIVE (NEGATIVE); Phencyclidine Screen Urine NEGATIVE (NEGATIVE); Tricyclic Antidepressant Urine NEGATIVE (NEGATIVE)
[2024-10-31] MEDS: ONDANSETRON PF 4 MG/2 ML VIAL IV (07:30)
[2024-10-31] MEDS: AMPICILLIN SODIUM 1,000 MG in 0.9 % SODIUM CHLORIDE 50 ML 100 MG IV ×2 (11:35→15:40)
[2024-10-31] MEDS: ROPIVACAINE HCL/PF 400 MG/200 ML PREMIX 6 MG EPIDURAL (15:47)
--- NOTE | 2024-10-31 16:59 | PM.OBPRCVD ---
Procedure Intrapartal events: None Induction method: per pitocin protocol Delivery augmentation: rupture of membranes and pitocin Delivery monitor: external FHT and external uterine Route of delivery: Episiotomy Description: none L&D Laceration Description: none Estimated blood loss (mL): 300 Anesthesia type: None Disposition: floor Delivery date: 10/31/24 Gender: female presentation: vertex Placental delivery description: Spontaneous cord description: 3 Vessels, Nuchal Cord and True Knot
[2024-10-31] MEDS: OXYTOCIN/0.9 % SODIUM CHLORIDE 20 UNITS/1,000 ML PLAST..BAG 125 UNIT IV (17:05)
[2024-10-31] MEDS: ACETAMINOPHEN 325 MG TABLET 650 MG PO (23:49)
[2024-10-31] MEDS: BENZOCAINE/MENTHOL 85 GRAM SPRAY BOTTLE 1 APPLIC TOPICAL (23:53)
[2024-10-31] MEDS: GLYCERIN/WITCH HAZEL PADS 1 PAD TOPICAL (23:54)
[2024-11-01 07:09] LABS: Basophils Percent Auto 0.2 % (0.2-2.0); Eosinophils Percent Auto 0.3 % (0.9-7.0); Hematocrit 30.1 % (36.0-48.0); Hemoglobin 10.8 g/dL (12.0-16.0); Immature Granulocytes Abs Auto 0.05 10^3/uL (0.00-0.03); Immature Granulocytes Pct Auto 0.4 % (0.0-0.5); Lymphocytes Absolute Auto 1.2 10^3/uL (1.2-3.8); Lymphocytes Percent Auto 9.8 % (20.5-60.0); Mean Corpuscular HGB Conc 35.9 g/dL (29.9-35.2); Mean Corpuscular Hemoglobin 30.8 pg (26.7-34.0); Mean Corpuscular Volume 85.8 fL (81.0-99.0); Mean Platelet Volume 11.5 fL (9.5-13.5); Monocytes Percent Auto 7.9 % (1.7-12.0); Neutrophils Absolute Auto 9.9 10^3/uL (1.4-6.5); Neutrophils Percent Auto 81.4 % (43.0-75.0); Platelet Count 118 10^3/uL (150-450); Red Blood Count 3.51 10^6/uL (4.20-5.40); Red Cell Distribution Width 13.2 % (11.0-15.0); White Blood Count 12.2 10^3/uL (4.0-11.0)
[2024-11-01 09:10] VITALS: BP 121/82; PULSE 73
[2024-11-01] MEDS: DOCUSATE SODIUM 100 MG CAPSULE PO ×2 (09:11→22:26)
[2024-11-01 09:15] VITALS: TEMP 36.7
--- NOTE | 2024-11-01 11:23 | P.OBPN_ITS ---
OB - PN: Subj Subjective Patient comments: no complaints, pain well controlled, tolerating diet and flatus present [place] infant status: doing well and bottle [place] feeding status: exclusively bottle feeding Exam Constitutional Vital Signs, click to edit/add: Last Vital Signs Temp 98.0 F 11/01/24 09:15 Pulse 73 11/01/24 09:10 Resp 16 11/01/24 09:16 BP 121/82 11/01/24 09:10 O2 Del Method Room Air 11/01/24 09:16 Documenting provider has reviewed patient's vital signs: yes Common normals: no apparent distress, average body habitus and oriented x3 General appearance: cooperative, comfortable, well kempt and well developed Orientation/consciousness: Yes awake, Yes oriented to person, Yes oriented to place and Yes oriented to time Chest Common normals: inspection of breasts normal GI Common normals: Normal to inspection, nondistended, normoactive bowel sounds present, soft to palpation and non-tender Palpation: soft and firm (Fundus is firm and 1 fingerbreadth below umbilicus.) Back & Pelvis Pelvis: other (Mild lochia rubra is present.) Extremity Common normals: normal to inspection, no calf tenderness and no pedal edema Results Labs Labs: Short CBC 11/01/24 Range/Units 06:51 WBC 12.2 H (4.0-11.0) 10^3/uL Hgb 10.8 L (12.0-16.0) g/dL Hct 30.1 L (36.0-48.0) % Plt Count 118 L (150-450) 10^3/uL OB - PN: A/P Assessment and Plan (1) Term delivered: Plan Patient is day #1 doing well. Will continue care. Plan - Vaginal Delivery Plan: routine care Time Spent with Patient Time: Total time spent is greater than 50% in coordination of care (as documented) at patient's floor/unit and/or counseling patient: Total time spent with greater than 50% in coordination of care (as documented) at patient's floor/unit and/or counseling patient: less than 15 minutes
[2024-11-01] MEDS: IBUPROFEN 600 MG TABLET PO (12:47)
[2024-11-01 17:03] VITALS: BP 123/84; PULSE 83; TEMP 36.7
[2024-11-01] MEDS: ACETAMINOPHEN 325 MG TABLET 650 MG PO (22:26)
[2024-11-01 23:12] VITALS: BP 136/79; PULSE 57; TEMP 36.7
[2024-11-02] MEDS: ACETAMINOPHEN 325 MG TABLET 650 MG PO (06:27)
[2024-11-02 08:13] VITALS: BP 122/86; PULSE 61; TEMP 36.6
[2024-11-02] MEDS: DOCUSATE SODIUM 100 MG CAPSULE PO (08:15)
--- NOTE | 2024-11-02 10:50 | PM.OBDS ---
DS: Providers Provider Date of admission: 10/31/24 05:01 Primary care physician: LUDY GRAFF Admitting clinician: Eleazar Lilly Attending physician on admission: Eleazar Lilly Attending physician on discharge: Sabino Irene Discharging clinician: Sabino Irene Anticipated date of discharge: 11/02/24 DS: Diagnosis Discharge Diagnosis (1) Term delivered: Assessment and plan: Patient is #2 doing well. Patient for discharge home today. Plan Patient is #2 doing well. Patient to be discharged home today. OB - DS: Summary Hospital Course Hospital Course: Uneventful hospital course Time spent discussing smoking cessation with patient: 3 to 10 minutes Peripartum Data - Vaginal Delivery Laceration description: none Complications complications: none Infant Delivery method: spontaneous vaginal delivery Gender: female Discharge plan: home Status at Discharge Functional status at discharge: independent ambulation Overall status at discharge: patient is back to baseline Time Spent with Patient Time attestation: Total time spent providing and/or coordinating discharge services: Time spent: less than 30 minutes Exam Narrative Exam Narrative: Patient without complaints. Constitutional Vital Signs, click to edit/add: Last Vital Signs Temp 97.8 F 11/02/24 08:13 Pulse 61 11/02/24 08:13 Resp 14 11/02/24 08:13 BP 122/86 11/02/24 08:13 O2 Del Method Room Air 11/02/24 08:13 Documenting provider has reviewed patient's vital signs: yes Common normals: no apparent distress, average body habitus, oriented x3, no limitations, healthy appearing, alert and well nourished General appearance: cooperative, comfortable, well kempt and well developed Orientation/consciousness: Yes awake, Yes oriented to person, Yes oriented to place and Yes oriented to time Chest Common normals: inspection of breasts normal GI Common normals: Normal to inspection, nondistended, normoactive bowel sounds present, soft to palpation and non-tender Palpation: soft and firm (Fundus firm and contracted and 2 fingerbreadths below umbilicus.) Back & Pelvis Pelvis: other (Mild lochia rubra is present.) Extremity Common normals: normal to inspection, no calf tenderness and no pedal edema Discharge Plan Discharge Disposition: Home, Self-Care Condition: Good Assessment: Patient's #2 doing well. Patient for discharge to home today. Health Concerns: None none Plan of Treatment: Routine care. Discharge Medications: New Dermoplast (with menthol) 20-0.5 % Aerosol 1 spray topical Q2H PRN (Reason: Pain) 30 Days Qty: 1 0RF ibuprofen 600 mg Tablet 600 mg PO Q6H PRN (Reason: Moderate Pain) 30 Days Qty: 120 0RF simethicone [Gas Relief 80 (simethicone)] 80 mg Tablet,Chewable 80 mg PO QID PRN (Reason: Abdominal Distention) 30 Days Qty: 90 0RF [employer] 12.5-50 % Pads, Medicated 1 pad topical Q2H PRN (Reason: Pain) 30 Days Qty: 90 0RF Activity: increase activity as tolerated Activity Detail: walking only until seen by Dr. Lilly at 6 weeks Diet: advance to your usual diet Print Language: [place] Patient Instructions: Perineal Care (GEN) Forms: Vaginal Delivery - Discharge, Portal Instructions Follow Up Appointments: Tuesday @ 900am with Collection Correspondent
== END 2024-11-02 11:30 | disposition home or self-care (01) | DRG 560 ==
PROVIDERS: Admitting Provider Obstetrics & Gynecology; PCP Nurse Practitioner Family; Visit Provider Obstetrics & Gynecology
DX: O69.2XX0 Labor and delivery complicated by other cord entanglement, with compression, not applicable or unspecified (principal); O69.81X0 Labor and delivery complicated by cord around neck, without compression, not applicable or unspecified; Z3A.38 38 weeks gestation of pregnancy; Z37.0 Single live birth; O99.824 Streptococcus B carrier state complicating childbirth
CPT/HCPCS: 36415; 76818; 80307; 85025; 85027; 86850; 86900; 86901; J0290; J2405; J2795; J3010

== ENCOUNTER 2024-12-07 19:15 | Emergency (ER) | payer MEDICAID, SELFPAY ==
--- OUTSIDE RECORDS SUMMARY | 2010-07-27 16:35 | XMS_ITS | Encounter Summary ---
Author Organization [facility] Address [address], [address] [place] [address] Care Team Providers Care Local Coordinator Name Role Phone Unavailable Primary Care Provider Unavailabl e Encounter Details Date Type Department Care Team (Late st Contact Info) Description 07/27/2010 4:35 PM EDT Hospital Encounter [place] [phone] Social History Tobacco Use Types Packs/Day Years [...]
--- OUTSIDE RECORDS SUMMARY | 2024-06-08 09:30 | XMS_ITS ---
Author Organization [facility] Address [address] [place] [address] Care Team Providers Care Energy Derivatives Trader Name Role Phone Katie Monroe Primary Care Provider [phone] Ines Sauceda Unavailable Swapna Drew Unavailable [phone] REASON FOR VISIT PROPHY Encounters Encounter Location Date Provider Diagnosis [place] [address] [place] [address] 06/08/2024 Swapna Drew Plan Of Treatment No Information Progress Notes * GINACARLO CELAYA EDOB:1995 (29 yo F)Acc No.[id number]:06/08/2024 Patient: Juan Pablo DAVIS GIANCARLO Nicholas Provider: Debora Chris :1995 A ge:28 Y S ex:Female Date:06/08/2024 Address:[address] [place] [address], [id number] Pcp:Katie Monroe Subjective: * Chief Complaints: * 1 . PROPHY. * Medical History: Objective: * Vitals: Assessment: Plan: * Treatment: * Images: * Electronic signature of Misti Drew on 12/07/2024 at 07:38 AM EDT Sign off status: Pending * Provider: Debora Chris Date: 0 06/08/2024 Generated for Printi ng/Faxing/eTransmitting on: 0 12/07/2024 07:38 AM EDT
--- OUTSIDE RECORDS SUMMARY | 2024-06-11 09:30 | XMS_ITS ---
Author Organization [facility] Address [address] [place] [address] Care Team Providers Care Global Risk Management Director Name Role Phone Katie Monroe Primary Care Provider Ines Sauceda Unavailable REASON FOR VISIT FILLING Encounters Encounter Location Date Provider Diagnosis [address] [place] [address] 06/11/2024 Ines Hodges Plan Of Treatment No Information Progress Notes * GIANCARLO CELAYA EDOB:1995 (29 yo F)Acc No.[id number]:06/11/2024 Patient: Juan Pablo DAVIS GIANCARLO Peterson Provider: Nagi HODGES DDS :1995 A ge:28 Y S ex:Female Date:06/11/2024 Address:[address] [place] [address], [id number] Pcp:Katie Monroe Subjective: * Chief Complaints: * 1 . FILLING. * Medical History: Objective: * Vitals: Assessment: Plan: * Treatment: * Images: * Electronic signature of Elsie Hodges DDS on 12/07/2024 at 07:38 AM EDT Sign off status: Pending * Provider: Nagi HODGES DDS Date: 06/11/2024 Generated for Printi ng/Faxing/eTransmitting on: 0 12/07/2024 07:38 AM EDT
--- OUTSIDE RECORDS SUMMARY | 2024-08-03 10:30 | XMS_ITS ---
Author Organization [facility] Address [address] [place] [address] Care Team Providers Care Hardwood Faller Name Role Phone Katie Monroe Primary Care Provider Ines Sauceda Unavailable REASON FOR VISIT FILLING Encounters Encounter Location Date Provider Diagnosis [address] [place] [address] 08/03/2024 Ines Hodges Plan Of Treatment No Information Progress Notes * GIANCARLO CELAYA EDOB:1995 (29 yo F)Acc No.[id number]:08/03/2024 Patient: Juan Pablo DAVIS GIANCARLO Peterson Provider: Nagi HODGES DDS :1995 A ge:28 Y S ex:Female Date:08/03/2024 Address:[address] [place] [address], [id number] Pcp:Katie Monroe Subjective: * Chief Complaints: * 1 . FILLING. * Medical History: Objective: * Vitals: Assessment: Plan: * Treatment: * Images: * Electronic signature of Elsie Hodges DDS on 12/07/2024 at 07:38 AM EDT Sign off status: Pending * Provider: Nagi HODGES DDS Date: 08/03/2024 Generated for Printi ng/Faxing/eTransmitting on: 0 12/07/2024 07:38 AM EDT
[2024-12-07 19:21] VITALS: BP 117/83; PULSE 106; TEMP 39.5; O2SAT 99; BMI 23.6
--- NOTE | 2024-12-07 19:23 | ED.GENADUL1 ---
HPI HPI - General Adult General Chief complaint: Fever Stated complaint: CHILLS FEVER Time Seen by Provider: 12/07/24 19:18 Source: patient Mode of arrival: walk-in Limitations: no limitations History of Present Illness HPI narrative: This 29-year-old female who is 5 weeks reports fever with a temp little higher than 101 today. She had generalized body aches, breast pain and had dyspareunia 5 days ago. She has a clear vaginal discharge with no odor. Related Data Allergies Allergy/AdvReac Type Severity Reaction Status Date / Time No Known Drug Allergies Allergy Verified 12/07/24 19:27 Opioid HPI Opioid Management Most Recent Opioid Data: Last Pain Scale 3 11/02/24, 06:27 Last MAR Pain Assessment 12/07/24, 20:09 Ur Phencyclidine Scrn, (NEGATIVE) Negative 10/31/24, 06:10 Review of Systems ROS Status of ROS 10 or more systems reviewed and unremarkable except as noted in history and [facility] Social History Highest level of school completed/degree received: GED or equivalent Little interest or pleasure in doing things: not at all Feeling down, depressed, or hopeless: not at all Exam Narrative Exam Narrative: Patient is febrile but does not have a toxic appearance. HEENT exam is normal to inspection. Neck is supple. Lung sounds are clear to auscultation bilaterally with good air entry. Heart has regular rate and rhythm. Abdomen is soft and nontender. Bowel sounds are normoactive and no masses are felt. External genitalia unremarkable. Vaginal examination with the speculum reveals a mucoid discharge. Cervical specimens obtained and sent for cultures. On bimanual examination the cervix is closed and the uterus is small, anteverted and nontender. There is no adnexal tenderness and no adnexal masses are palpated. Skin is warm and dry. Speech and mentation are clear and intact. There is no facial asymmetry and she moves all extremities actively. Constitutional Vital Signs, click to edit/add: Last Vital Signs Temp 99.2 F 12/07/24 23:50 Pulse 100 H 12/07/24 23:50 Resp 16 12/07/24 23:50 BP 110/73 12/07/24 23:50 Pulse Ox 100 12/07/24 23:50 O2 Del Method Room Air 12/07/24 19:21 Course Vital Signs Vital signs: Vital Signs Temperature 103.1 F H 12/07/24 19:21 Pulse Rate 106 H 12/07/24 19:21 Respiratory Rate 20 12/07/24 19:21 Blood Pressure 117/83 12/07/24 19:21 Pulse Oximetry 99 12/07/24 19:21 Oxygen Delivery Method Room Air 12/07/24 19:21 Temperature 99.2 F 12/07/24 23:50 Pulse Rate 100 H 12/07/24 23:50 Respiratory Rate 16 12/07/24 23:50 Blood Pressure 110/73 12/07/24 23:50 Pulse Oximetry 100 12/07/24 23:50 Oxygen Delivery Method Room Air 12/07/24 19:21 Medical Decision Making MDM Narrative Medical decision making narrative: Patient has a normal white count. Urine appears contaminated and not felt to be a source of infection. Chest x-ray does not show infiltrate. CT scan of the abdomen pelvis reports appearance of the uterus with no other acute findings. Patient could well have a viral illness. My plan is to treat her with 1 dose of IV Rocephin and await culture results and if warranted call her back for further antibiotic treatment. Otherwise she is to treat her fever at home and seek early follow-up with PCP with instructions to return anytime for worsening symptoms. Lab Data Labs: Lab Results 12/07/24 12/07/24 Range/Units 19:30 19:50 WBC 11.2 H (4.0-11.0) 10^3/uL RBC 4.51 (4.20-5.40) 10^6/uL Hgb 13.3 (12.0-16.0) g/dL Hct 37.7 (36.0-48.0) % MCV 83.6 (81.0-99.0) fL MCH 29.5 (26.7-34.0) pg MCHC 35.3 H (29.9-35.2) g/dL RDW 11.8 (11.0-15.0) % Plt Count 87 L (150-450) 10^3/uL MPV 11.8 (9.5-13.5) fL Neut % (Auto) 87.9 H (43.0-75.0) % Lymph % (Auto) 7.0 L (20.5-60.0) % [place] % (Auto) 4.4 (1.7-12.0) % Eos % (Auto) 0.3 L (0.9-7.0) % Baso % (Auto) 0.2 (0.2-2.0) % Neut # (Auto) 9.9 H (1.4-6.5) 10^3/uL Lymph # (Auto) 0.8 L (1.2-3.8) 10^3/uL [place] # (Auto) 0.5 (0.3-0.8) 10^3/uL Eos # (Auto) 0.0 (0.0-0.7) 10^3/uL Baso # (Auto) 0.0 (0.0-0.1) 10^3/uL Abs Immat Gran (auto) 0.02 (0.00-0.03) 10^3/uL Imm/Tot Granulo (auto) 0.2 (0.0-0.5) % Sodium 139 (136-145) mmol/L Potassium 3.8 (3.5-5.1) mmol/L Chloride 99 (98-107) mmol/L Carbon Dioxide 30.4 (21.0-32.0) mmol/L Anion Gap 13.4 BUN 11.0 (7.0-18.0) mg/dL Creatinine 1.02 (0.55-1.02) mg/dL Est GFR ( Amer) >60 (>=60 mL/min/1.73m^2) Est GFR (Non-Af Amer) >60 (>=60 mL/min/1.73m^2) BUN/Creatinine Ratio 10.8 Glucose 102 (74-106) mg/dL Lactate 0.9 (0.4-2.0) mmol/L Calcium 9.4 (8.5-10.1) mg/dL Total Bilirubin 0.6 (0.2-1.0) mg/dL AST 24 (15-37) U/L ALT 49 (14-59) U/L Alkaline Phosphatase 111 (46-116) U/L Total Protein 8.0 (6.4-8.2) g/dL Albumin 4.0 (3.4-5.0) g/dL Globulin 4.0 g/dL Albumin/Globulin Ratio 1.0 Urine Color Lt. yellow (YELLOW) Urine Clarity Clear (CLEAR) Urine pH 7.5 (5.0-9.0) Ur Specific [place] 1.015 (1.005-1.025) Urine Protein Negative (NEG/TRACE) mg/dL Urine Glucose (UA) Negative (NEGATIVE) mg/dL Urine Ketones Negative (NEGATIVE) mg/dL Urine Occult Blood Negative (NEGATIVE) Urine Nitrite Negative (NEGATIVE) Urine Bilirubin Negative (NEGATIVE) Urine Urobilinogen 0.2 (0.2-1.0) EU/dL Ur Leukocyte Esterase Small A (NEGATIVE) Urine RBC 0-2 (0-2) #/HPF Urine WBC 10-20 A (NONE SEEN) #/HPF Ur Squamous Epith Cells Moderate A (NONE/RARE) #/LPF Urine Crystals None seen (None Seen) #/HPF Urine Bacteria Small A (NONE SEEN) #/HPF Urine Casts None seen (NONE SEEN) #/LPF Urine Mucus Trace A (NONE SEEN) Ur Culture Indicated? [place] [place] HCG, Qual Negative (NEGATIVE) Discharge Plan Discharge Chief Complaint: Fever Clinical Impression: Fever Qualifiers: Fever type: unspecified Qualified Code(s): R50.9 - Fever, unspecified Patient Disposition: Home, Self-Care Time of Disposition Decision: 23:41 Condition: Good Mode of Transportation: Private Vehicle Print Language: [place] Instructions: Fever in Adults (ED) Additional Instructions: Follow-up with your PCP in the next 3 days. Return anytime for worsening symptoms Referrals: LUDY GRAFF [Primary Care Provider, Unknown] - 1 week Discharge Date/Time: 12/08/24 00:05
--- OUTSIDE RECORDS SUMMARY | 2024-12-07 19:24 | XMS_ITS | Clinical Summary ---
Author Organization [facility] Address [address] [facility] [place] [address] Care Team Providers Care Crating And Moving Estimator Name Role Phone Unallocated, Noms Provider Primary Care Provi kamille Allergies No known active allergies Medications fluticasone (Flonase) 50 MCG/ACT nasal spray USE 1 SPRAY IN EACH NOSTRIL TWICE A DAY 5 Active ondansetron ODT (Zofran-ODT) 4 MG disintegrating tabletIndications:N ausea and vomiting in ([facility]) Take 1 tablet (4 mg) by mouth every 6 (six) hours if needed for nausea or vomiting for up to 30 doses 30 tablet 3 5 Active Active Problems Problem Noted Date Diagnosed Date 12 weeks gestation of ([facility]) 2023 Second trimester ([facility]) 04/30/2024 Nausea and vomiting in ([facility]) 04/16 Encounters Date Type Department Care Team Description 11/01/2024 Clinisync Result Encounter NOMS External Department Unsolicited Amalia Lilly, 10/31/2024 Clinisync Result Encounter NOMS External Department Unsolicited Amalia Lilly, DO 10/30/2024 Clinisync Result Encounter NOMS External Department Unsolicited Amalia Lilly, DO 10/29/2024 8:20 AM EDT Routine [facility] [address] [place] [address] [place] [address] Amalia Lilly, DO Third trimester ([facility]); 38 weeks gestation of ([facility]) 10/29/2024 Telephone [facility] [address] [place] [address] Monica Ayala, BASE FILLER 10/29/2024 Abstract [facility] [address] [address] Monica Ayala, BASE FILLER 10/29/2024 Bamboo flowsheet [facility] [address] [place] [address] Amalia Lilly, DO 10/26/2024 Abstract [facility] [address] [place] [address] Amalia Lilly, DO 10/23/2024 9:00 AM EDT Routine [facility] [address] [place] [address] Amalia Lilly, Third trimester ([facility]); 37 weeks gestation of ([facility]) 10/23/2024 Clinisync Result Encounter NOMS External Department Unsolicited Amalia Lilly, DO 10/23/2024 Bamboo flowsheet [facility] [address] [place] [place] [address] Amalia Lilly, DO 10/16/2024 10:10 AM EDT Routine [facility] [address] [place] [address] Amalia Lilly, Third trimester ([facility]); 36 weeks gestation of ([facility]) 10/16/2024 Clinisync Result Encounter NOMS External Department Unsolicited Amalia Lilly, DO 10/16/2024 Bamboo flowsheet [facility] [address] [place] [place] [phone] Amalia Lilly, DO 10/14/2024 Clinisync Result Encounter NOMS External Department Unsolicited Amalia Lilly, DO 10/12/2024 Telephone [facility] [address] [place] [phone] Shalonda Anderson MA 10/10/2024 Telephone [facility] [address] [place] [phone] Amalia Lilly, DO 10/09/2024 Clinisync Result Encounter NOMS External Department Unsolicited Amalia Lilly, DO 10/02/2024 9:10 AM EDT Routine [facility] [address] [place] [address] Cheryl Baugh PA Third trimester ([facility]); 34 weeks gestation of ([facility]); BV (bacterial vaginosis) 10/02/2024 Clinisync Result Encounter NOMS External Department Unsolicited Amalia Lilly, DO 10/02/2024 Bamboo flowsheet [facility] [address] [place] [phone] Cheryl Baugh PA 09/27/2024 Refill [facility] [address] [place] [phone] Nimco Mojica LPN Nausea and vomiting in ([facility]) 09/25/2024 Clinisync Result Encounter NOMS External Department Unsolicited Amalia Lilly, 09/24/2024 Clinisync Result Encounter NOMS External Department Unsolicited Gaye Vázquez NP 09/24/2024 Results Follow-Up [facility] [address] [place] [phone] Nimco Mojica LPN 09/24/2024 Telephone [facility] [address] [place] [phone] Nimco Mojica, BASE FILLER 09/21/2024 Telephone [facility] [address] [place] [phone] Monica Ayala, BASE FILLER 09/21/2024 Telephone [facility] [address] [phone] Justin [place], [place] 09/19/2024 Clinisync Result Encounter NOMS External Department Unsolicited Gaye Vázquez NP 09/19/2024 Telephone [facility] [address] [place] [phone] Justin [place], [place] 09/18/2024 Clinisync Result Encounter NOMS External Department Unsolicited Amalia Lilly DO 09/13/2024 10:30 AM EDT Routine [facility] [address] [place] [address] Amalia Lilly DO Third trimester ([facility]); 31 weeks gestation of ([facility]); size inconsistent with dates ([facility]) 09/13/2024 Bamboo flowsheet [facility] [address] [place] [phone] Amalia Lilly DO from Last 3 Months [...] Sign Reading Time Taken Comments Blood Pressure 120/74 10/29/2024 8:31 AM EDT Pulse - - Temperature - - Respiratory Rate - - Oxygen Saturation - - Inhaled Oxygen Concentration - - Weight 66.9 kg (147 lb 6.4 oz) 10/29/2024 8:31 A M EDT Height 154.9 cm (5' 1 ) 02/08/2024 1:21 PM EDT Body Mass Index 27.85 02/08/2024 1:21 PM EDT Plan of Treatment Upcoming Encounters Date Type Department Care Team (Late st Contact Info) Description 12/10/2024 1:50 PM EDT Visit [facility] [address] [place] [address] Cheryl Baugh PA [address] [facility] [place] [address] Health Maintenance Due Date Last Done Comments Influenza Vaccine (#1) 2025 Procedures Procedure Name Priority Date/Time Associated Diagnosis Comments ALL CBC WITH AUTO DIFF Routine 6:51 AM EDT [facility] CBC WITH PLATELET NO DIFFERENTIAL Routine 10/31/2024 6:35 AM EDT [facility] DRUG SCREEN RAPID (URINE) Routine 10/31/2024 6:10 AM EDT US OB BPP W NON-STRESS 10/30/2024 2:12 PM EDT US OB BPP W NON-STRESS 10/23/2024 2:49 PM EDT POCT URINALYSIS DIPSTICK Routine 10/23/2024 9:18 AM EDT Third trimester ([facility]) US OB BPP W NON-STRESS 10/16/2024 4:19 PM EDT POCT URINALYSIS DIPSTICK Routine 10/16/2024 10:47 AM EDT Third trimester ([facility]) 36 weeks gestation of ([facility]) CULTURE, GROUP B STREP WITH SUSCEPTIBLITY Routine 10/16/2024 10:39 AM EDT Third trimester ([facility]) AMNISURE Routine 10/14/2024 12:08 PM EDT [facility] URINE MICROSCOPIC ONLY Routine 10/14/2024 12:00 PM EDT [facility] UA (CLEAN/CATCH) RANCH MANAGER/MICRO IF IND. Routine 10/14/2024 12:00 PM EDT [...] EDT [facility] CMP (CMP) (FOR REMOTE [facility] USE) Routine 09/19/2024 2:31 PM EDT US OB GROWTH 09/18/2024 4:30 PM EDT POCT URINALYSIS DIPSTICK Routine 09/13/2024 11:01 AM EDT Third trimester ([facility]) from Last 3 Months Results * (ABNORMAL) ALL CBC WITH AUTO DIFF (11/01/2024 6:51 AM EDT) Only the most recent of2 resultswithin the time period is included. [facility] WBC 12.2(H) 4.0 - 11.0 10 3/uL TBH TBH RBC 3.51(L) 4.20 - 5.40 10 6/uL TBH TBH HGB 10.8(L) 12.0 - 16.0 g/dL TBH TBH HCT 30.1(L) 36.0 - 48.0 % TBH TBH MCV 85.8 81.0 - 99.0 fL TBH TBH MCH 30.8 26.7 - 34.0 pg TBH TBH MCHC 35.9(H) 29.9 - 35.2 g/dL TBH TBH RDW 13.2 11.0 - 15.0 % TBH TBH PLT 118(L) 150 - 450 10 3/uL TBH TBH MPV 11.5 9.5 - 13.5 fL TBH NEUTROPHILS PERCENT AUTO 81.4(H) 43.0 - 75.0 % TBH LYMPHOCYTES PERCENT AUTO 9.8(L) 20.5 - 60.0 % TBH MONOCYTES PERCENT AUTO 7.9 1.7 - 12.0 % TBH TBH EO % 0.3(L) 0.9 - 7.0 % TBH BASOPHILS PERCENT AUTO 0.2 0.2 - 2.0 % TBH IMMATURE GRANULOCYTES PCT AUTO 0.4 0.0 - 0.5 % TBH NEUTROPHILS ABSOLUTE AUTO 9.9(H) 1.4 - 6.5 10 3/uL TBH LYMPHOCYTES ABSOLUTE AUTO 1.2 1.2 - 3.8 10 3/uL TBH MONOCYTES ABSOLUTE AUTO 1.0(H) 0.3 - 0.8 10 3/uL TBH TBH EO # 0.0 0.0 - 0.7 10 3/uL TBH BASOPHILS ABSOLUTE AUTO 0.0 0.0 - 0.1 10 3/uL TBH IMMATURE GRANULOCYTES ABS AUTO 0.05(H) 0.00 - 0.03 10 3/uL TBH 11/01/2024 6:51 AM EDT 11/01/2024 6:56 AM EDT Narrative CLINISYNC - 11/01/2024 7:11 AM EDT us Amalai Vijaya DO CLINISYNC Final Result CLINISYNC TBH * (ABNORMAL) [facility] CBC WITH PLATELET NO DIFFERENTIAL (10/31/2024 6:35 AM EDT) TB WBC 10.5 4.0 - 11.0 10 3/uL TBH TB RBC 4.08(L) 4.20 - 5.40 10 6/uL TBH TB HGB 12.2 12.0 - 16.0 g/dL TBH TB HCT 34.9(L) 36.0 - 48.0 % TBH TB MCV 85.5 81.0 - 99.0 fL TBH TB MCH 29.9 26.7 - 34.0 pg TBH TB MCHC 35.0 29.9 - 35.2 g/dL TB TB RDW 13.1 11.0 - 15.0 % TBH TBH PLT 151 150 - 450 10 3/uL TBH TB MPV 11.8 9.5 - 13.5 fL TB 10/31/2024 6:35 AM EDT 10/31/2024 6:50 AM EDT Narrative CLINISYNC - 10/31/2024 7:04 AM EDT us Amalia Lilly DO CLINISYNC Final Result [facility] * [facility] DRUG SCREEN RAPID (URINE) (10/31/2024 6:10 AM EDT) CANNABINOID SCREEN URINE NEGATIVE NEGATIVE TBH PHENCYCLIDINE SCREEN URINE NEGATIVE NEGATIVE TBH COCAINE SCREEN URINE NEGATIVE NEGATIVE TBH METHAMPHETAMINES SCREEN URINE NEGATIVE NEGATIVE TBH OPIATE SCREEN URINE NEGATIVE NEGATIVE TBH AMPHETAMINE SCREEN URINE NEGATIVE NEGATIVE TBH BENZODIAZEPINES SCREEN URINE NEGATIVE NEGATIVE TBH TRICYCLIC ANTIDEPRESSANT URINE NEGATIVE NEGATIVE TBH METHADONE SCREEN URINE NEGATIVE NEGATIVE TBH BARBITURATES SCREEN URINE NEGATIVE NEGATIVE TBH OXYCODONE SCREEN URINE NEGATIVE NEGATIVE TBH BUPRENORPHINE SCREEN URINE NEGATIVE NEGATIVE TBH Comment: DRUG CLASS TEST SYSTEM CUT-OFF CONCENTRATIONS ARE FOLLOWS: AMP (Amphetamine): 500 ng/mL BAR (Barbiturates): 200 ng/mL BZO (Benzodiazepines): 150 ng/mL BUP (Buprenorphine): 10 ng/mL ALICIA (Cocaine): 150 ng/mL mAMP (Methamphetamine): 500 ng/mL MTD (Methadone): 200 ng/mL OPI (Opiates): 100 ng/mL OXY (Oxycodone): 100 ng/mL PCP (Phencyclidine): 25 ng/mL THC (Cannabinoids): 50 ng/mL TCA (Trycyclic Antidepressants): 300 ng/mL 10/31/2024 6:10 AM EDT 10/31/2024 6:50 AM EDT Narrative CLINISYNC - 10/31/2024 7:16 AM EDT us Amalia Lilly DO CLINISYAZ Final Result [facility] * US OB BPP W NON-STRESS (10/30/2024 2:12 PM EDT) Only the most recent of6 resultswithin the time period is included. Anatomical Region Laterality Modality Other 10/30/2024 2:12 PM EDT Narrative 10/30/2024 2:15 [place] [address] Ultrasound Report Signed Patient: GIANCARLO CELAYA MR#: [id number] : 1995 Acct:[id number] Age/Sex: 28 / F ADM Date: 10/30/24 Loc: US Attending Dr: Amalia Lilly D.O. Ordering Physician: Amalia Lilly D.O. Date of Service: 10/30/24 Procedure(s): US OB BPP w non-stress Accession Number(s): [id number] cc: Amalia Lilly D.O.; LUDY GRAFF [address] [address] Patient Name: GIANCARLO CELAYA MRN: TBH:[id number] date: 1995 Sex: F Assigned Patient Location: US Current Patient Location: Accession/Order Number: [id number] Exam Date: 10/30/2024 14:12 Report Date: 10/30/2024 14:12 At the request of: AMALIA LILLY DO Procedure: US OB BPP w non-stress Biophysical profile. Reason for exam: Knot of the umbilical cord. Comparison: BPP 10/23/2024 TECHNIQUE: Transabdominal imaging of the gravid uterus was obtained. FINDINGS: Blasting Entryman reports the BPP is 8 out of 8. BHAVANI is normal at 19cm. heart rate 130 bpm. US/US OB BPP w non-stress IMPRESSION: BPP 8 out of 8. Impression dictated by: Celestino Vinson Jr., D.O. 10/30/2024 2:12 PM Dictation Location: [place] [address] Electronically authenticated by: [id number] Y Date: 10/30/2024 14:12 Dictated By: Celestino Vinson M.D. Signed By: 10/30/24 1415 DD/ 141 TD/TT: Registered Nurse Cardiovascular Icu: Procedure Note Radiology, Radiologist, MD - 10/30/2024 [place] [address] Ultrasound Report Signed Patient: GIANCARLO CELAYA EMR#: [id number] : 1995Acct:[id number] Age/Sex: 28 / FADM Date: 10/30/24 Loc: US Attending Dr: Amalia Lilly D.O. Ordering Physician: Amalia Lilly D.O. Date of Service: 10/30/24 Procedure(s): US OB BPP w non-stress Accession Number(s): [id number] cc: Amalia Lilly D.O.; LUDY GRAFF [place] [address] Patient Name: GIANCARLO CELAYA MRN: [facility]:[id number] date: 1995 Sex: F Assigned Patient Location: US Current Patient Location: Accession/Order Number: [id number] Exam Date: 10/30/2024 14:12 Report Date: 10/30/2024 14:12 At the request of: AMALIA LILLY DO Procedure: US OB BPP w non-stress Biophysical profile. Reason for exam: Knot of the umbilical cord. Comparison: BPP 10/23/2024 TECHNIQUE: Transabdominal imaging of the gravid uterus was obtained. FINDINGS: Blasting Entryman reports the BPP is 8 out of 8. BHAVANI is normal at19cm. heart rate 130 bpm. US/US OB BPP w non-stress IMPRESSION: BPP 8 out of 8. Impression dictated by: Celestino Vinson Jr., D.O. 10/30/2024 2:12 PM Dictation Location: [employer] Electronically authenticated by: [id number] Y Date: 4:12 Dictated By: Celestino Vinson M.D. Signed By:10/30/241414 DD/ 11 TD/TT: Registered Nurse Cardiovascular Icu: Amalia Vijaya DO CLINISYNC IMAGING Final Result * POCT urinalysis dipstick manually resulted (10/23/2024 9:18 AM EDT) Only the most recent of3 [...] * AMNISURE (10/14/2024 12:08 PM EDT) Pathologist [facility] TB AMNISURE NEGATIVE NEGATIVE TBH 10/14/2024 12:0 8 PM EDT 10/14/2024 12:17 PM EDT Narrative CLINISYNC - 10/14/2024 12:32 PM EDT Amalia Vijaya DO LAB BLOOD ORDERABLES Final Resul t Performing Organization Address [facility] Co de Phone Number CLINISYNC TBH * (ABNORMAL) TBH URINE MICROSCOPIC ONLY (10/14/2024 12:00 PM EDT) [facility] TB WBC 20-50(A) NONE SEEN #/HPF TBH [...] DO CLINISYNC Final Result Performing Organization Address [facility]/ZIP Co de Phone Number CLINISYNC TBH * (ABNORMAL) TBH UA (CLEAN/CATCH) RANCH MANAGER/MICRO IF IND. (10/14/2024 12:00 PM EDT) COLOR [...] - 10/14/2024 12:45 PM EDT us Amalia Lilly DO CLINISYNC Final Result Performing Organization Address [facility] Co de Phone Number [facility] * [facility] BILE ACIDS FRACT BLD (09/24/2024 4:47 PM EDT) BILE ACIDS 6.8 0.0 - 10.0 umol/L TBH Comment: Performed at: [address] [id number] Power Cutting Machine Operator: Mello Godoy MD, Phone: [phone] 09/24/2024 4:47 PM EDT 09/24/2024 4:47 PM EDT Narrative CLINISYNC - 09/27/2024 12:16 AM EDT Gaye Vázquez EXPLOSIVES ENGINEER CLINISYNC Final Result Performing Organization Address City/[facility]/ZIP Co de Phone Number [facility] * ALL THYROID STIM HORMONE (09/24/2024 4:47 PM EDT) THYROID STIMULATING HORMONE 0.964 0.358 - 3.740 uIU/mL TBH 09/24/2024 4:47 PM EDT 09/24/2024 4:47 PM EDT Narrative CLINISYNC - 09/24/2024 5:57 PM EDT Gaye Vázquez NP CLINISYNC Final Result [facility] TB * ALL HEPATITIS C AB (09/24/2024 4:47 PM EDT) HCV ANTIBODY Non Reactive Non Reactive TB Comment: HCV antibody alone does not differentiate between previously resolved infection and active infection. Equivocal and Reactive HCV antibody results should be followed up with an HCV RNA test to support the diagnosis of active HCV infection. Performed at: [facility] [id number] Power Cutting Machine Operator: Sheldon Polo PhD, Phone: [phone] 09/24/2024 4:47 PM EDT 09/24/2024 4:47 PM EDT Narrative CLINISYNC - 09/26/2024 5:08 AM EDT Gaye Vázquez NP [facility]NC Final [facility] * (ABNORMAL) [facility] CMP (CMP) (FOR REMOTE [facility] USE) (09/19/2024 2:31 PM EDT) SODIUM [...] 0.55 - 1.02 mg/dL TBH TBH EGFR-AF BHUTANESE >60 >=60 mL/min/1. 73m 2 TBH TBH EGFR-NON AF BHUTANESE >60 >=60 mL/min/1. 73m 2 TBH BUN [...] NP CLINISYNC Final Result Performing Organization Address City/State/[facility] Co de Phone Number [facility] * US OB GROWTH (09/18/2024 4:30 PM EDT) Anatomical Region Laterality Modality Other 09/18/2024 4:30 PM EDT Narrative 09/18/2024 4:32 [place] [address] Ultrasound Report Signed Patient: GIANCARLO CELAYA MR#: [id number] : 1995 Acct:[id number] Age/Sex: 28 / F ADM Date: 09/18/24 Loc: US Attending Dr: Amalia Lilly D.O. Ordering Physician: Amalia Lilly D.O. Date of Service: 09/18/24 Procedure(s): US OB growth Accession Number(s): [id number] cc: Amalia Lilly D.O.; LUDY GRAFF [address] [address] Patient Name: GIANCARLO CELAYA MRN: TBH:[id number] date: 1995 Sex: F Assigned Patient Location: US Current Patient Location: US Accession/Order Number: [id number] Exam Date: 09/18/2024 16:23 Report Date: 09/18/2024 [...] Smith M.D. 09/18/2024 4:30 PM Dictation Location: [place] [address] Electronically authenticated by: [id number] Y Date: 09/18/2024 16:30 Dictated By: Wally Smith M.D. Signed By: 09/18/24 1632 DD/ 1630 TD/TT: Registered Nurse Cardiovascular Icu: Procedure Note Radiology, Radiologist, MD - 09/18/2024 [place] [address] Ultrasound Report Signed Patient: GIANCARLO CELAYA EMR#: [id number] : 1995Acct:[id number] Age/Sex: 28 / FADM Date: 09/18/24 Loc: US Attending Dr: Amalia Lilly D.O. Ordering Physician: Amalia Lilly D.O. Date of Service: 09/18/24 Procedure(s): US OB growth Accession Number(s): [id number] cc: Amalia Lilly D.O.; LUDY GRAFF [place] [address] Patient Name: GIANCARLO CELAYA MRN: [id number] date: 1995 Sex: F Assigned Patient Location: Current Patient Location: Accession/Order Number: [id number] Exam Date: 09/18/2024 16:23 Report Date: 09/18/2024 [...] Smith M.D. 09/18/2024 4:30 PM Dictation Location: [place] [address] Electronically authenticated by: [id number] Y Date: 6:30 Dictated By: Wally Smith M.D. Signed By:09/18/24 1632 DD/ 1630 TD/TT: Registered Nurse Cardiovascular Icu: Amalia Lilly DO CLINISYNC IMAGING Final Result from Last 3 Months Insurance [employer] [place] Care Teams Crating And Moving Estimator Relationship Specialty Start Date End Date Unallocated, Noms ProviderMD [address] [place] [address] PCP - General Family Medicine 02/28/24
--- OUTSIDE RECORDS SUMMARY | 2024-12-07 19:24 | XMS_ITS | Encounter Summary ---
Author Organization [facility] Address [address] [facility] [place] [address] Care Team Providers Care Profiler Name Role Phone Unallocated, Noms Provider Primary Care [facility] Encounter Details Date Type Department Care Team (Late Contact Info) Description 03/23/2024 Abstract [facility] [address] [place] [address] Eleazar Lilly DO [address] [facility] [address] [place], [facility] Social History Tobacco Use Types Packs/Day Years Used Date Smoking Tobacco: Never Assessed Comments Yes Sex and Gender Information Value Date Recorded Sex Assigned at Not on file Legal Sex Female 7:01 PM EDT Gender Identity Not on file Sexual Orientation Not on file documented as of this encounter Plan of Treatment Upcoming Encounters Date Type Department Care Team (Late st Contact Info) Description 12/10/2024 1:50 PM EDT Visit [facility] [address] [place] [address] Cheryl Baugh PA [address] [facility] [address] [place], [facility]11 documented as of this encounter Visit Diagnoses Not on filedocumented in this encounter Care Teams Profiler Relationship Specialty Start Date End Date Unallocated, Noms Provider, [address] [place] [address] PCP - General Family Medicine 02/28/24 documented as of this encounter
--- OUTSIDE RECORDS SUMMARY | 2024-12-07 19:24 | XMS_ITS | Encounter Summary ---
Author Organization [facility] Address [address] [facility] [place] [address] Care Team Providers Care Lisw Name Role Phone LuizCorwin olivarez Primary Care Provider Unallocated, Noms Provider Primary Care [facility] Encounter Details Date Type Department Care Team (Late st Contact Info) Description 02/21/2024 Orders Only [facility] [address] [facility] [place] [address] Eleazar Lilly DO [address] [facility] [address] [place], [place] [id number] Left ovarian cyst Social History Tobacco Use [...] Info) Description 12/10/2024 1:50 PM EDT Visit [facility] [address] [facility] [place] [address] Cheryl Baugh PA [address] [facility] [place] [address] Scheduled Orders Name Type Priority Associated Diagnoses Orde r Schedule hCG, quantitative Lab Routine Left ovarian cyst Expected: 02/21/2024 (Approximate), Expires: 02/20/2025 documented as of this encounter Visit Diagnoses Diagnosis Left ovarian cyst Other and unspecified ovarian cyst documented in this encounter Care Teams Lisw Relationship Specialty Start Date End Date Corwin Dee DO [address] [place], [place] [id number] PCP - General Family Medicine 09/14/22 02/27/24 Unallocated, Noms Provider, [address] [place] [address] PCP - General Family Medicine 02/28/24 documented as of this encounter
--- OUTSIDE RECORDS SUMMARY | 2024-12-07 19:24 | XMS_ITS | Encounter Summary ---
Author Organization [facility] Address [address] [facility] [place] [address] Care Team Providers Care Broth Setter Name Role Phone Unallocated, Noms Provider Primary Care [facility] Encounter Details Date Type Department Care Team (Late st Contact Info) Description 10/29/2024 Abstract [facility] [address] [facility] [place] [address] Monica Ayala LPN Social History Tobacco Use [...] Department Care Team (Late Contact Info) Description 12/10/2024 1:50 PM EDT Visit [facility]G [facility] [address] [facility] [place] [address] Cheryl Baugh PA [address] [facility] [place] [address] documented as of this encounter Visit Diagnoses Not on filedocumented in this encounter Care Teams Broth Setter Relationship Specialty Start Date End Date Unallocated, [place] [address] PCP - General Family Medicine 02/28/24 documented as of this encounter
--- OUTSIDE RECORDS SUMMARY | 2024-12-07 19:24 | XMS_ITS | Encounter Summary ---
Author Organization [facility] Address [address] [facility] [place] [address] Care Team Providers Care Earth Auger Operator Name Role Phone Unallocated, Noms Provider Primary Care [facility] Encounter Details Date Type Department Care Team (Late Contact Info) Description 03/23/2024 Abstract [facility] [address] [facility] [place] [phone] Eleazar Lilly DO [address] [facility] [address] [place], [facility] Social History Tobacco Use Types Packs/Day Years [...] 1:50 PM EDT Visit [facility] [address] [facility] [place] [address] Cheryl Baugh PA [address] [facility] [address] [place], [facility]11 documented as of this encounter Visit Diagnoses Not on filedocumented in this encounter Care Teams Earth Auger Operator Relationship Specialty Start Date End Date Unallocated, Noms Provider, [address] [place] [address] PCP - General Family Medicine 02/28/24 documented as of this encounter
--- OUTSIDE RECORDS SUMMARY | 2024-12-07 19:24 | XMS_ITS | Encounter Summary ---
Author Organization [facility] Address [address] [facility] [place] [address] Care Team Providers Care Polishing Machine Tender Name Role Phone Unallocated, Noms Provider Primary Care [facility] Encounter Details Date Type Department Care Team (Late Contact Info) Description 03/17/2024 Abstract DENG ROCA [address] [place] [place] [phone] Eleazar Lilly DO [address] [facility] [address] Ayla Tavares, [facility]11 Social History Tobacco Use Types Packs/Day [...] 1:50 PM EDT Visit DENG ROCA [address] [facility] [place] [address] Cheryl Baugh PA [address] [facility] [address] [place], [facility]11 documented as of this encounter Visit Diagnoses Not on filedocumented in this encounter Care Teams Polishing Machine Tender Relationship Specialty Start Date End Date Unallocated, Noms Provider, [address] [place] [address] PCP - General Family Medicine 02/28/24 documented as of this encounter
--- OUTSIDE RECORDS SUMMARY | 2024-12-07 19:24 | XMS_ITS | Patient Health Record ---
Author Organization [facility] Address [address] [place] [address] Care Team Providers Care Enthone Solder Stripper Name Role Phone Katie Monroe Primary Care Provider [phone] Ines Sauceda Unavailable [phone] Karthik Castro Unavailable [phone] Swapna Drew Unavailable [phone] Reason For Referral No Information Encounters Encounter Location Date Provider Diagnosis [facility] [address] [place] [address] 01/04/2024 Katie Monroe [address] [place] [address] 12/30/2023 Katie Monroe Necrosis of pulp K04.1 [...] Coverage Start Date Coverage End Date [employer] DQ Terminate d 24 [address] [place] [address] [id number] GIANCARLO CELAYA Self - patient is the insured 4 [employer] BC[employer] Termed 4 [address] [place] [address] [id number] GIANCARLO CELAYA Self - patient is the insured 4
--- OUTSIDE RECORDS SUMMARY | 2024-12-07 19:24 | XMS_ITS | Clinical Summary ---
Author Organization [facility] Address [address] [facility], [address] [place] [address] Care Team Providers Care Sales Service Promoter Name Role Phone Unavailable Primary Care Provider [...]
--- OUTSIDE RECORDS SUMMARY | 2024-12-07 19:24 | XMS_ITS | Encounter Summary ---
Author Organization [facility] Address [address] [facility] [place] [address] Care Team Providers Care Development Administrator Name Role Phone Unallocated, Noms Provider Primary Care [facility] Encounter Details Date Type Department Care Team (Late Contact Info) Description 07/09/2024 Abstract DENG ROCA [address] [facility] [place] [phone] Eleazar Lilly DO [address] [facility] [address] Ayla Tavares, [facility]11 Social History [...] 1:50 PM EDT Visit DENG ROCA [address] [facility] [place] [address] Cheryl Baugh PA [address] [facility] [address] [place], [facility]11 documented as of this encounter Visit Diagnoses Not on filedocumented in this encounter Care Teams Development Administrator Relationship Specialty Start Date End Date Unallocated, Noms Provider, [address] [place] [address] PCP - General Family Medicine 02/28/24 documented as of this encounter
--- OUTSIDE RECORDS SUMMARY | 2024-12-07 19:24 | XMS_ITS | Encounter Summary ---
Author Organization [facility] Address [address] [facility] [place] [address] Care Team Providers Care Wellness Ambassador Name Role Phone Unallocated, Noms Provider Primary Care [facility] Encounter Details Date Type Department Care Team (Late st Contact Info) Description 06/08/2024 Orders Only DENG ROCA [address] [place] [phone] Nga Cormier MA [address] [place] [address] Social History Tobacco Use Types Packs/Day Years [...] 1:50 PM EDT Visit DENG ROCA [address] [place] [phone] Cheryl Baugh PA [address] [facility] [address] [place], [place] [id number] documented as of this encounter Procedures Procedure Name Priority Date/Time Associated Diagnosis Comments PAP SMEAR Routine 05/28/2024 12:00 AM EST documented in this encounter Results * Pap Smear (05/28/2024 12:00 AM EST) Swab Cervical swab / Unknown us Cheryl [facility] ORDERABLES Final Re sult EXTERNAL LAB documented in this encounter Visit Diagnoses Not on filedocumented in this encounter Care Teams Wellness Ambassador Relationship Specialty Start Date End Date Unallocated, Noms Provider, [address] [place] [address] PCP - General Family Medicine 02/28/24 documented as of this encounter
--- OUTSIDE RECORDS SUMMARY | 2024-12-07 19:24 | XMS_ITS | Encounter Summary ---
Author Organization [facility] Address [address] [facility] [place] [address] Care Team Providers Care Certified Bench Jeweler Technician Name Role Phone [facility] Primary Care Provider Unallocated, Noms Provider Primary Care [facility] Encounter Details Date Type Department Care Team (Late st Contact Info) Description 02/21/2024 Clinisync Result Encounter [facility] External Department Unsolicited Amalia Lilly DO [address] [facility] [address] Ayla Tavares, [facility]11 Social History Tobacco Use Types [...] Description 12/10/2024 1:50 PM EDT Visit [facility] [address] [facility] [place] [phone] Cheryl Baugh PA [address] [facility] [address] [facility] [address] [place], [place] [id number] documented as of this encounter Procedures Procedure [...] us Amalia Lilly DO CLINISYNC Final Result [facility] * US PELVIS W/ TRANSVAGINAL (02/21/2024 7:52 AM EDT) Anatomical Region Laterality Modality Other 02/21/2024 7:52 AM EDT Narrative 02/21/2024 7:55 [place] [address] Ultrasound Report Signed Patient: GIANCARLO CELAYA MR#: [id number] : 1995 Acct:[id number] Age/Sex: 28 / F ADM Date: 02/20/24 Loc: US Attending Dr: Amalia Lilly D.O. Ordering Physician: Amalia Lilly D.O. Date of Service: 02/20/24 Procedure(s): US pelvis w/ transvaginal Accession Number(s): [id number] cc: Amalia Lilly D.O.; LUDY GRAFF [place] [address] Patient Name: GIANCARLO CELAYA MRN: [facility]:[id number] date: 1995 Sex: F Assigned Patient Location: US Current Patient Location: Accession/Order Number: [id number] Exam Date: 02/20/2024 10:36 Report Date: 02/21/2024 [...] Signed By: 02/21/24 0755 DD/ 0752 TD/TT: Creative Services Specialist: Procedure Note Radiology, Radiologist, MD - 02/21/2024 [place] [address] Ultrasound Report Signed Patient: GIANCARLO CELAYA EMR#: [id number] : 1995Acct:[id number] Age/Sex: 28 / FADM Date: 02/20/24 Loc: US Attending Dr: Amalia Lilly D.O. Ordering Physician: Amalia Lilly D.O. Date of Service: 02/20/24 Procedure(s): US pelvis w/ transvaginal Accession Number(s): [id number] cc: Amalia Lilly D.O.; LUDY GRAFF [place] [address] Patient Name: GIANCARLO CELAYA MRN: [facility]:[id number] date: 1995 Sex: F Assigned Patient Location: US Current Patient Location: Accession/Order Number: [id number] Exam Date: 02/20/2024 10:36 Report Date: 02/21/2024 [...] M.D. Signed By:02/21/24 0755 DD/ 0752 TD/TT: Creative Services Specialist: us Amalia Lilly DO [facility] IMAGING Final Result documented in this encounter Visit Diagnoses Not on filedocumented in this encounter Care Teams Certified Bench Jeweler Technician Relationship Specialty Start Date End Date Corwin Dee DO [address] [place], [place] [id number] PCP - General Family Medicine 09/14/22 02/27/24 Unallocated, Noms Provider, [address] [place] [address] PCP - General Family Medicine 02/28/24 documented as of this encounter
--- OUTSIDE RECORDS SUMMARY | 2024-12-07 19:24 | XMS_ITS | Encounter Summary ---
Author Organization [facility] Address [address] [facility] [place] [address] Care Team Providers Care Otr Driver Name Role Phone Unallocated, Noms Provider Primary Care [facility] Encounter Details Date Type Department Care Team (Late Contact Info) Description 05/30/2024 Abstract DENG ROCA [address] [facility] [place] [phone] Eleazar Lilly DO [address] [facility] [address] Ayla Tavares, [facility]11 Social History Tobacco Use [...] 1:50 PM EDT Visit DENG ROCA [address] [facility] [place] [address] Cheryl Baugh PA [address] [facility] [address] [address] [place], [facility]11 documented as of this encounter Visit Diagnoses Not on filedocumented in this encounter Care Teams Otr Driver Relationship Specialty Start Date End Date Unallocated, Noms Provider, [address] [place] [address] PCP - General Family Medicine 02/28/24 documented as of this encounter
--- OUTSIDE RECORDS SUMMARY | 2024-12-07 19:24 | XMS_ITS | Clinical Summary ---
Author Organization [facility] Address [id number] [address] [place] [address] Care Team Providers Care Field Party Manager Name Role Phone Hima Silver MD Primary Care Provider [phone] Social History Tobacco Use Types Packs/Day Years [...] Medical Devices Not on file Care Teams Field Party Manager Relationship Specialty Start Date End Date Hima Silver MD [address] [place] [address] PCP - General Internal Medicine 09/14/18
--- OUTSIDE RECORDS SUMMARY | 2024-12-07 19:24 | XMS_ITS | Encounter Summary ---
Author Organization [facility] Address [address] [facility] [place] [address] Care Team Providers Care Cat Swamper Name Role Phone Unallocated, Noms Provider [facility] Encounter Details Date Type Department Care Team (Late st Contact Info) Description 09/24/2024 Results Follow-Up DENG ROCA [address] [place] [address] Nimco Mojica LPN [address] [place] [id number] Social History Tobacco Use Types Packs/Day Years [...] 1:50 PM EDT Visit DENG ROCA [address] [address] Cheryl Baugh PA [address] [place] [address] [place], [place] [id number] documented as of this encounter Visit Diagnoses Not on filedocumented in this encounter Care Teams Cat Swamper Relationship Specialty Start Date End Date Unallocated, Noms Provider, [place] [address] PCP - General Family Medicine 02/28/24 documented as of this encounter
--- OUTSIDE RECORDS SUMMARY | 2024-12-07 19:24 | XMS_ITS | Encounter Summary ---
Author Organization [facility] Address [address] [facility] [place] [address] Care Team Providers Care Artillery Maintenance Supervisor Name Role Phone Unallocated, Noms Provider Primary Care [facility] Encounter Details Date Type Department Care Team (Late Contact Info) Description 04/23/2024 Abstract DENG ROCA [address] [address] Eleazar Lilly DO [address] [facility] [address] Ayla Tavares, [facility]11 Social History Tobacco Use Types Packs/Day Years [...] 1:50 PM EDT Visit DENG ROCA [address] [place] [address] Cheryl Baugh PA [address] [facility] [address] [place], [facility]11 documented as of this encounter Visit Diagnoses Not on filedocumented in this encounter Care Teams Artillery Maintenance Supervisor Relationship Specialty Start Date End Date Unallocated, Noms Provider, [address] [place] [address] PCP - General Family Medicine 02/28/24 documented as of this encounter
--- OUTSIDE RECORDS SUMMARY | 2024-12-07 19:24 | XMS_ITS | Encounter Summary ---
Author Organization [facility] Address [address] [facility] [place] [address] Care Team Providers Care Bilingual Nanny Name Role Phone Unallocated, Noms Provider Primary Care [facility] Encounter Details Date Type Department Care Team (Late Contact Info) Description 10/26/2024 Abstract DENG ROCA [address] [facility] [place] [phone] Eleazar Lilly DO [address] [facility] [address] Ayla Tavares, [facility]11 Social History Tobacco [...] [address] [facility] [place] [address] Cheryl Baugh PA [address] [facility] [address] [place], [facility]11 documented as of this encounter Visit Diagnoses Not on filedocumented in this encounter Care Teams Bilingual Nanny Relationship Specialty Start Date End Date Unallocated, Noms Provider, [address] [place] [address] PCP - General Family Medicine 02/28/24 documented as of this encounter
--- OUTSIDE RECORDS SUMMARY | 2024-12-07 19:25 | XMS_ITS | CCD ---
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, Ana Serra Attending Carley vailable Schlumbohm PA-C, Susana Dickerson Primary Care U navailable VIJAYA, ELEAZAR Attending Unavailable VIJAYA, ELEAZAR Referring Unavailable ANA, CHERYL Attending Unavailable VIJAYA, ELEAZAR Attending Unavailable VIJAYA, ELEAZAR Attending Unavailable ANA, CHERYL Attending Unavailable VIJAYA, ELEAZAR Attending Unavailable [...] disintegrating tablet Indications: Nausea and vomiting in ([facility]) Take 1 tablet (4 mg) by [...] take 1 capsule by mo [facility] three times daily as needed for [...] daily Start: 08-14-2018 [facility] daily citalopram 10 mg [...] Test Name Value Interpretation Reference Range Facility ALL CBC WITH AUTO DIFFon BASOPHILS ABSOLUTE AUTO 0 [facility] Basophils/100 WBC (Bld) 0.2 % 0.2 - 2.0 % [facility] Eosinophils/100 WBC (Bld) 0.3 % Low 0.9 - 7.0 % [facility] Erythrocyte distribution width (RBC) [Ratio] 13.2 % 11.0 - 15.0 % [facility] Hematocrit (Bld) [Volume fraction] 30.1 % Low 36.0 - 48.0 % [facility] Hemoglobin (Bld) [Mass/Vol] 10.8 g/dL Low 12.0 - 16.0 g/dL [facility] IMMATURE GRANULOCYTES ABS AUTO 0.05 High [facility] Immature granulocytes/100 WBC (Bld) 0.4 % 0.0 - 0.5 % [facility] Interpretation and review of laboratory results Abnormal [facility] LYMPHOCYTES ABSOLUTE AUTO 1.2 [facility] Lymphocytes/100 WBC (Bld) 9.8 % Low 20.5 - 60.0 % [facility] MCH (RBC) [Entitic mass] 30.8 pg 26.7 - 34.0 pg [facility] MCHC (RBC) [Mass/Vol] 35.9 g/dL High 29.9 - 35.2 g/dL [facility] MCV (RBC) [Entitic vol] 85.8 fL 81.0 - 99.0 fL [facility] MONOCYTES ABSOLUTE AUTO 1 High [facility] Monocytes/100 WBC (Bld) 7.9 % 1.7 - 12.0 % [facility] NEUTROPHILS ABSOLUTE AUTO 9.9 High [facility] Neutrophils/100 WBC (Bld) 81.4 % High 43.0 - 75.0 % [facility] Platelet mean volume (Bld) [Entitic vol] 11.5 fL 9.5 - 13.5 fL [facility] TBH EO # 0 [facility] TB PLT 118 Low [facility] RBC 3.51 Low [facility] TBH WBC 12.2 High [facility] HMHP CBC WITH PLATELET NO DI FFERENTIALon 10-31-2024 Erythrocyte distribution width (RBC) [Ratio] 13.1 % 11.0 - 15.0 % [facility] Hematocrit (Bld) [Volume fraction] 34.9 % Low 36.0 - 48.0 % [facility] Hemoglobin (Bld) [Mass/Vol] 12.2 g/dL 12.0 - 16.0 g/dL [facility] Interpretation and review of laboratory results Abnormal [facility] MCH (RBC) [Entitic mass] 29.9 pg 26.7 - 34.0 pg [facility] MCHC (RBC) [Mass/Vol] 35 g/dL 29.9 - 35.2 g/dL [facility] MCV (RBC) [Entitic vol] 85.5 fL 81.0 - 99.0 fL [facility] Platelet mean volume (Bld) [Entitic vol] 11.8 fL 9.5 - 13.5 fL [facility] TB PLT 151 [facility] RBC 4.08 Low [facility] WBC 10.5 [facility] US OB BPP W NON-STRESS on 10-30-2024 [place] [address] Ultrasound Report Signed Patient: GIANCARLO CELAYA MR#: [id number] : 1995 Acct:[id number] Age/Sex: 28 / F ADM Date: 10/30/24 Loc: US Attending Dr: Eleazar Lilly D.O. Ordering Physician: Eleazar Lilly D.O. Date of Service: 10/30/24 Procedure(s): US OB BPP w non-stress Accession Number(s): [id number] cc: Eleazar Lilly D.O.; EVELYN VU [address] [address] Patient Name: GIANCARLO CELAYA MRN: [facility]:[id number] date: 1995 Sex: F Assigned Patient Location: US Current Patient Location: Accession/Order Number: [id number] Exam Date: 10/30/2024 14:12 Report Date: 10/30/2024 14:12 At the request of: ELEAZAR LILLY DO Procedure: US OB BPP w non-stress Biophysical profile. Reason for exam: Knot of the umbilical cord. Comparison: BPP 10/23/2024 TECHNIQUE: Transabdominal imaging of the gravid uterus was obtained. FINDINGS: Uniform Attendant reports the BPP is 8 out of 8. BHAVANI is normal at 19cm. heart rate 130 bpm. US/US OB BPP w non-stress IMPRESSION: BPP 8 out of 8. Impression dictated by: Celestino Vinson Jr., D.O. 10/30/2024 2:12 PM Dictation Location: [place] [address] Electronically authenticated by: [id number] Y Date: 10/30/2024 14:12 Dictated By: Celestino Vinson M.D. Signed By: 10/30/24 1415 DD/ 11 TD/TT: Skirt Panel Assembler: [facility] Radiology, Radiologist, MD - 10/30/2024 [place] [address] Ultrasound Report Signed Patient: GIANCARLO CELAYA MR#: [id number] : 1995 Acct:[id number] Age/Sex: 28 / F ADM Date: 10/30/24 Loc: US Attending Dr: Eleazar Lilly D.O. Ordering Physician: Eleazar Lilly D.O. Date of Service: 10/30/24 Procedure(s): US OB BPP w non-stress Accession Number(s): [id number] cc: Eleazar Lilly D.O.; EVELYN VU [address] [place] [address] Patient Name: GIANCARLO CELAYA MRN: [id number] date: 1995 Sex: F Assigned Patient Location: US Current Patient Location: Accession/Order Number: [id number] Exam Date: 10/30/2024 14:12 Report Date: 10/30/2024 14:12 At the request of: ELEAZAR LILLY DO Procedure: US OB BPP w non-stress Biophysical profile. Reason for exam: Knot of the umbilical cord. Comparison: BPP 10/23/2024 TECHNIQUE: Transabdominal imaging of the gravid uterus was obtained. FINDINGS: Uniform Attendant reports the BPP is 8 out of 8. BHAVANI is normal at 19cm. heart rate 130 bpm. US/US OB BPP w non-stress IMPRESSION: BPP 8 out of 8. Impression dictated by: Celestino Vinson Jr., D.O. 10/30/2024 2:12 PM Dictation Location: [place] [address] Electronically authenticated by: [id number] Y Date: 10/30/2024 14:12 Dictated By: Celestino Vinsno M.D. Signed By: 10/30/24 1415 DD/ 11 TD/TT: Skirt Panel Assembler: [facility] Radiology Study observation (narrative) [facility] US OB BPP W NON-STRESS Ordered By: Radiologist Radiology on 10-30-2024 [facility] Work Phone: US OB BPP W NON-STRESS on 10-23-2024 [place] [address] Ultrasound Report Signed Patient: GIANCARLO CELAYA MR#: [id number] : 1995 Acct:[id number] Age/Sex: 28 / F ADM Date: 10/23/24 Loc: US Attending Dr: Eleazar Lilly D.O. Ordering Physician: Eleazar Lilly D.O. Date of Service: 10/23/24 Procedure(s): US OB BPP w non-stress Accession Number(s): [id number] cc: Eleazar Lilly D.O.; EVELYN VU [address] [address] Patient Name: GIANCARLO CELAYA MRN: [facility]:[id number] date: 1995 Sex: F Assigned Patient Location: [facility] Current Patient Location: Accession/Order Number: [id number] Exam Date: 10/23/2024 14:48 Report Date: 10/23/2024 14:49 At the request of: ELEAZAR LILLY DO Procedure: US OB BPP w non-stress Biophysical profile. Reason for exam: Knot of the umbilical cord. Comparison: BPP 10/16/2024 TECHNIQUE: Transabdominal imaging of the gravid uterus was obtained. FINDINGS: Uniform Attendant reports the BPP is 8 out of 8. BHAVANI is normal at 14.5 cm. heart rate 134bpm. US/US OB BPP w non-stress IMPRESSION: BPP 8 out of 8. Impression dictated by: Celestino Vinson Jr., D.O. 10/23/2024 2:49 PM Dictation Location: [place] [address] Electronically authenticated by: [id number] Y Date: 10/23/2024 14:49 Dictated By: Celestino Vinson M.D. Signed By: 10/23/24 1452 DD/ 1449 TD/TT: Skirt Panel Assembler: [facility] Radiology, Radiologist, MD - 10/23/2024 [place] [address] Ultrasound Report Signed Patient: GIANCARLO CELAYA MR#: [id number] : 1995 Acct:[id number] Age/Sex: 28 / F ADM Date: 10/23/24 Loc: US Attending Dr: Eleazar Lilly D.O. Ordering Physician: Eleazar Lilly D.O. Date of Service: 10/23/24 Procedure(s): US OB BPP w non-stress Accession Number(s): [id number] cc: Eleazar Lilly D.O.; EVELYN VU [address] [address] Patient Name: GIANCARLO CELAYA MRN: [facility]:[id number] date: 1995 Sex: F Assigned Patient Location: [facility] Current Patient Location: Accession/Order Number: [id number] Exam Date: 10/23/2024 14:48 Report Date: 10/23/2024 14:49 At the request of: ELEAZAR LILLY DO Procedure: US OB BPP w non-stress Biophysical profile. Reason for exam: Knot of the umbilical cord. Comparison: BPP 10/16/2024 TECHNIQUE: Transabdominal imaging of the gravid uterus was obtained. FINDINGS: Uniform Attendant reports the BPP is 8 out of 8. BHAVANI is normal at 14.5 cm. heart rate 134bpm. US/US OB BPP w non-stress IMPRESSION: BPP 8 out of 8. Impression dictated by: Celestino Vinson Jr., D.O. 10/23/2024 2:49 PM Dictation Location: [place] [address] Electronically authenticated by: [id number] Y Date: 10/23/2024 14:49 Dictated By: Celestino Vinson M.D. Signed By: 10/23/24 1452 DD/ 1449 TD/TT: Skirt Panel Assembler: [facility] Radiology Study observation (narrative) [facility] US OB BPP W NON-STRESS Ordered By: Radiologist Radiology on 10-23-2024 [facility] Work Phone: Urinalysis macro (dipstick) panel (U)on 10-23-2024 Bilirubin, UA Negative Negative - 4(70) +++ mg/dL [facility] Blood, UA Negative Negative - 50 Fuad/mcL [facility] Clarity, UA Clear [facility] Color, UA Yellow [facility] Glucose, UA Negative Negative - 2000(110) ++++ mg/dL [facility] Interpretation and review of laboratory results Normal [facility] Ketones, UA Negative Negative - 160(16) ++++ mg/dL [facility] Leukocytes, UA Negative Negative - 500+++ Sandie/mcL [facility] Nitrite, UA Negative Negative - Positive [facility] pH, UA 6.5 5 - 9 [facility] Protein, UA Positive Negative - 2000(20) ++++ mg/dL [facility] Comment on above: 30 Spec Grav, UA 1.025 1 - 1.03 [facility] Urobilinogen, UA 0.2 0.2 - 12 mg/dL [facility] US OB BPP W NON-STRESS on 10-16-2024 [place] [address] Ultrasound Report Signed Patient: GIANCARLO CELAYA MR#: [id number] : 1995 Acct:[id number] Age/Sex: 28 / F ADM Date: 10/16/24 Loc: US Attending Dr: Eleazar Lilly D.O. Ordering Physician: Eleazar Lilly D.O. Date of Service: 10/16/24 Procedure(s): US OB BPP w non-stress Accession Number(s): [id number] cc: Eleazar Lilly D.O.; EVELYN VU [place] [address] Patient Name: GIANCARLO CELAYA MRN: [facility]:[id number] date: 1995 Sex: F Assigned Patient Location: [facility] Current Patient Location: Accession/Order Number: [id number] Exam Date: 10/16/2024 16:18 Report Date: 10/16/2024 16:19 At the request of: ELEAZAR LILLY DO Procedure: US OB BPP w non-stress Biophysical profile. Reason for exam: Knot of the umbilical cord. Comparison: BPP 10/09/2024. TECHNIQUE: Transabdominal imaging of the gravid uterus was obtained. FINDINGS: Uniform Attendant reports the BPP is 8 out of 8. BHAVANI is normal at 12.6 cm. heart rate 132 bpm. US/US OB BPP w non-stress IMPRESSION: BPP 8 out of 8. Impression dictated by: Celestino Vinson Jr., D.O. 10/16/2024 4:19 PM Dictation Location: [facility] Electronically authenticated by: [id number] Y Date: 10/16/2024 16:19 Dictated By: Celestino Vinson M.D. Signed By: 10/16/24 162 DD/ 18 TD/TT: Skirt Panel Assembler: [facility] Radiology, Radiologist, - 10/16/2024 [place] [address] Ultrasound Report Signed Patient: GIANCARLO CELAYA MR#: [id number] : 1995 Acct:[id number] Age/Sex: 28 / F ADM Date: 10/16/24 Loc: US Attending Dr: Eleazar Lilly D.O. Ordering Physician: Eleazar Lilly D.O. Date of Service: 10/16/24 Procedure(s): US OB BPP w non-stress Accession Number(s): [id number] cc: Eleazar Lilly D.O.; EVELYN VU [place] [address] Patient Name: GIANCARLO CELAYA MRN: [facility]:[id number] date: 1995 Sex: F Assigned Patient Location: [facility] Current Patient Location: Accession/Order Number: [id number] Exam Date: 10/16/2024 16:18 Report Date: 10/16/2024 16:19 At the request of: ELEAZAR LILLY DO Procedure: US OB BPP w non-stress Biophysical profile. Reason for exam: Knot of the umbilical cord. Comparison: BPP 10/09/2024. TECHNIQUE: Transabdominal imaging of the gravid uterus was obtained. FINDINGS: Uniform Attendant reports the BPP is 8 out of 8. BHAVANI is normal at 12.6 cm. heart rate 132 bpm. US/US OB BPP w non-stress IMPRESSION: BPP 8 out of 8. Impression dictated by: Celestino Vinson Jr., D.O. 10/16/2024 4:19 PM Dictation Location: [place] [address] Electronically authenticated by: [id number] Y Date: 10/16/2024 16:19 Dictated By: Celestino Vinson M.D. Signed By: 10/16/24 1621 DD/ 1619 TD/TT: Skirt Panel Assembler: [facility] Radiology Study observation (narrative) [facility] US OB BPP W NON-STRESS Ordered By: Radiologist Radiology on 10-16-2024 [facility] Work Phone: Urinalysis macro (dipstick) panel (U)on 10-16-2024 Bilirubin, UA Positive Negative - 4(70) +++ mg/dL [facility] Blood, UA Negative Negative - 50 Fuad/mcL [facility] Clarity, UA Clear [facility] Color, UA Yellow [facility] Glucose, UA Negative Negative - 2000(110) ++++ mg/dL [facility] Comment on above: small Interpretation and review of laboratory results Abnormal [facility] Ketones, UA Negative Negative - 160(16) ++++ mg/dL [facility] Leukocytes, UA Negative Negative - 500+++ Sandie/mcL [facility] Nitrite, UA Negative Negative - Positive [facility] pH, UA 6 5 - 9 [facility] Protein, UA Positive Negative - 2000(20) ++++ mg/dL [facility] Comment on above: 30 Spec Grav, UA 1.03 1 - 1.03 [facility] Urobilinogen, UA 0.2 0.2 - 12 mg/dL [facility] AMNISUREon 10-14-2024 [facility] AMNISURE Negative NEGATIVE [facility] No Panel Informationon 10-14 [facility] UA (CLEAN/CATCH) NCA CERTIFIED CONCIERGE/YVONNE RO IF IND.on 10-14-2024 BILIRUBIN URINE Negative NEGATIVE [facility] BLOOD URINE Negative NEGATIVE [facility] Clarity (U) SL CLOUDY CLEAR [facility] Color (U) LT. YELLOW YELLOW [facility] GLUCOSE URINE UA Negative NEGATIVE mg/dL [facility] Interpretation and review of laboratory results Abnormal [facility] Ketones Ql (U) Negative NEGATIVE mg/dL [facility] Leukocyte esterase Test strip Ql (U) MODERATE Abnormal NEGATIVE [facility] NITRITE URINE Negative NEGATIVE [facility] pH (U) 7.0 [pH] 5.0 - 9.0 [facility] Protein (U) [Mass/Vol] 30 mg/dL [facility] URINE 1.020 1.005 - 1.025 [facility] URINE MICROSCOPIC INDICATED YES [facility] UROBILINOGEN URINE 2.0 EU/dL Abnormal 0.2 - 1.0 EU/dL [facility] US OB BPP W NON-STRESS on 10-09-2024 [place] [address] Ultrasound Report Signed Patient: GIANCARLO CELAYA MR#: [id number] : 1995 Acct:[id number] Age/Sex: 28 / F ADM Date: 10/09/24 Loc: [facility] 250-[address]: Eleazar Lilly D.O. Ordering Physician: Eleazar Lilly D.O. Date of Service: 10/09/24 Procedure(s): US OB BPP w non-stress Accession Number(s): [id number] cc: Eleazar Lilly D.O.; EVELYN VU [place] [address] Patient Name: GIANCARLO CELAYA MRN: [id number] date: 1995 Sex: F Assigned Patient Location: [facility] Current Patient Location: [facility] Accession/Order Number: [id number] Exam Date: 10/09/2024 16:46 Report Date: 10/09/2024 [...] Katz M.D. 10/09/2024 4:48 PM Dictation Location: [facility] Electronically authenticated by: [id number] Y Date: 10/09/2024 16:48 Dictated By: Ty Katz D.O. Signed By: 10/09/241649 DD/ 164 TD/TT: Skirt Panel Assembler: [facility] Radiology, Radiologist, - 10/09/2024 [place] [address] Ultrasound Report Signed Patient: GIANCARLO CELAYA MR#: [id number] : 1995 Acct:[id number] Age/Sex: 28 / F ADM Date: 10/09/24 Loc: [facility] 250-[address]: Eleazra Lilly D.O. Ordering Physician: Eleazar Lilly D.O. Date of Service: 10/09/24 Procedure(s): US OB BPP w non-stress Accession Number(s): [id number] cc: Eleazar Lilly D.O.; EVELYN VU [place] [address] Patient Name: GIANCARLO CELAYA MRN: [facility]:[id number] date: 1995 Sex: F Assigned Patient Location: [facility] Current Patient Location: [facility] Accession/Order Number: [id number] Exam Date: 10/09/2024 16:46 Report Date: 10/09/2024 [...] Katz M.D. 10/09/2024 4:48 PM Dictation Location: [place] [address] Electronically authenticated by: [id number] Y Date: 10/09/2024 16:48 Dictated By: Ty Katz D.O. Signed By: 10/09/241649 DD/ 1648 TD/TT: Skirt Panel Assembler: [facility] Radiology Study observation (narrative) [facility] US OB BPP W NON-STRESS Ordered By: Radiologist Radiology on 10-09-2024 [facility] Work Phone: US OB BPP W NON-STRESS on 10-02-2024 [place] [address] Ultrasound Report Signed Patient: GIANCARLO CELAYA MR#: [id number] : 1995 Acct:[id number] Age/Sex: 28 / F ADM Date: 10/02/24 Loc: US Attending Dr: Eleazar Lilly D.O. Ordering Physician: Eleazar Lilly D.O. Date of Service: 10/02/24 Procedure(s): US OB BPP w non-stress Accession Number(s): [id number] cc: Eleazar Lilly D.O.; EVELYN VU [place] [address] Patient Name: GIANCARLO CELAYA MRN: [id number] date: 1995 Sex: F Assigned Patient Location: [facility] Current Patient Location: US Accession/Order Number: [id number] Exam Date: 10/02/2024 12:41 Report Date: 10/02/2024 [...] Anand M.D. 10/02/2024 12:43 PM Dictation Location: [place] [address] Electronically authenticated by: [id number] Y Date: 10/02/2024 12:43 Dictated By: Yaneli Anand M.D. Signed By: 10/02/24 1246 DD/ 1243 TD/TT: Skirt Panel Assembler: [facility] Radiology, Radiologist, - 10/02/2024 [place] [address] Ultrasound Report Signed Patient: GIANCARLO CELAYA MR#: [id number] : 1995 Acct:[id number] Age/Sex: 28 / F ADM Date: 10/02/24 Loc: US Attending Dr: Eleazar Lilly D.O. Ordering Physician: Eleazar Lilly D.O. Date of Service: 10/02/24 Procedure(s): US OB BPP w non-stress Accession Number(s): [id number] cc: Eleazar Lilly D.O.; EVELYN VU [place] [address] Patient Name: GIANCARLO CELAYA MRN: [facility]:[id number] date: 1995 Sex: F Assigned Patient Location: [facility] Current Patient Location: US Accession/Order Number: [id number] Exam Date: 10/02/2024 12:41 Report Date: 10/02/2024 [...] Anand M.D. 10/02/2024 12:43 PM Dictation Location: [place] [address] Electronically authenticated by: [id number] Y Date: 10/02/2024 12:43 Dictated By: Yaneli Anand M.D. Signed By: 10/02/24 1246 DD/ 1243 TD/TT: Skirt Panel Assembler: [facility] Radiology Study observation (narrative) [facility] US OB BPP W NON-STRESS Ordered By: Radiologist Radiology on 10-02-2024 [facility] Work Phone: US OB BPP W NON-STRESS on 09-25-2024 [place] [address] Ultrasound Report Signed Patient: GIANCARLO CELAYA MR#: [id number] : 1995 Acct:[id number] Age/Sex: 28 / F ADM Date: 09/25/24 Loc: US Attending Dr: Eleazar Lilly D.O. Ordering Physician: Eleazar Lilly D.O. Date of Service: 09/25/24 Procedure(s): US OB BPP w non-stress Accession Number(s): [id number] cc: Eleazar Lilly D.O.; EVELYN VU [place] [address] Patient Name: GIANCARLO CELAYA MRN: [id number] date: 1995 Sex: F Assigned Patient Location: US Current Patient Location: US Accession/Order Number: [id number] Exam Date: 09/25/2024 16:34 Report Date: 09/25/2024 [...] Katz M.D. 09/25/2024 4:35 PM Dictation Location: [place] [address] Electronically authenticated by: [id number] Y Date: 09/25/2024 16:35 Dictated By: Ty Katz D.O. Signed By: 09/25/24 163 DD/ 34 TD/TT: Skirt Panel Assembler: [facility] Radiology, Radiologist, MD - 09/25/2024 [place] [address] Ultrasound Report Signed Patient: GIANCARLO CELAYA MR#: [id number] : 1995 Acct:[id number] Age/Sex: 28 / F ADM Date: 09/25/24 Loc: US Attending Dr: Eleazar Lilly D.O. Ordering Physician: Eleazar Lilly D.O. Date of Service: 09/25/24 Procedure(s): US OB BPP w non-stress Accession Number(s): [id number] cc: Eleazar Lilly D.O.; EVELYN VU [place] [id number] Patient Name: GIANCARLO CELAYA MRN: [facility]:[id number] date: 1995 Sex: F Assigned Patient Location: US Current Patient Location: US Accession/Order Number: [id number] Exam Date: 09/25/2024 16:34 Report Date: 09/25/2024 [...] Katz M.D. 09/25/2024 4:35 PM Dictation Location: [employer] Electronically authenticated by: [id number] Y Date: 09/25/2024 16:35 Dictated By: Ty Katz D.O. Signed By: 09/25/241636 DD/ 34 TD/TT: Skirt Panel Assembler: [facility] Radiology Study observation (narrative) [facility] US OB BPP W NON-STRESS Ordered By: Radiologist Radiology on 09-25-2024 [facility] Work Phone: ALL CBC WITH AUTO DIFFon BASOPHILS ABSOLUTE AUTO 0 [facility] Basophils/100 WBC (Bld) 0.2 % 0.2 - 2.0 % [facility] Eosinophils/100 WBC (Bld) 0.9 % 0.9 - 7.0 % [facility] Erythrocyte distribution width (RBC) [Ratio] 12.9 % 11.0 - 15.0 % [facility] Hematocrit (Bld) [Volume fraction] 32.7 % Low 36.0 - 48.0 % [facility] Hemoglobin (Bld) [Mass/Vol] 11.6 g/dL Low 12.0 - 16.0 g/dL [facility] IMMATURE GRANULOCYTES ABS AUTO 0.07 High [facility] Immature granulocytes/100 WBC (Bld) 0.7 % High 0.0 - 0.5 % [facility] Interpretation and review of laboratory results Abnormal [facility] LYMPHOCYTES ABSOLUTE AUTO 1.8 [facility] Lymphocytes/100 WBC (Bld) 18 % Low 20.5 - 60.0 % [facility] MCH (RBC) [Entitic mass] 31.2 pg 26.7 - 34.0 pg [facility] MCHC (RBC) [Mass/Vol] 35.5 g/dL High 29.9 - 35.2 g/dL [facility] MCV (RBC) [Entitic vol] 87.9 fL 81.0 - 99.0 fL [facility] MONOCYTES ABSOLUTE AUTO 0.6 [facility] Monocytes/100 WBC (Bld) 6.4 % 1.7 - 12.0 % [facility] NEUTROPHILS ABSOLUTE AUTO 7.2 High [facility] Neutrophils/100 WBC (Bld) 73.8 % 43.0 - 75.0 % [facility] Platelet mean volume (Bld) [Entitic vol] 10.3 fL 9.5 - 13.5 fL [facility] TBH EO # 0.1 [facility] TB PLT 145 Low [facility] TB RBC 3.72 Low [facility] WBC 9.8 [facility] CCF CMP (CMP) (FOR REMOTE FH C USE)on 09-19-2024 Albumin [Mass/Vol] 2.5 g/dL Low 3.4 - 5.0 g/dL [facility] ALBUMIN GLOBULIN RATIO 0.6 [facility] ALP [Catalytic activity/Vol] 123 U/L High 46 - 116 U/L [facility] ALT [Catalytic activity/Vol] 17 U/L 14 - 59 U/L [facility] Anion gap [Moles/Vol] 12.6 mmol/L [facility] AST [Catalytic activity/Vol] 19 U/L 15 - 37 U/L [facility] Bilirubin [Mass/Vol] 0.4 mg/dL 0.2 - 1 .0 mg/dL [facility] Calcium [Mass/Vol] 8.9 mg/dL 8.5 - 10. 1 mg/dL [facility] Chloride [Moles/Vol] 104 mmol/L 98 - 10 7 mmol/L [facility] CO2 [Moles/Vol] 25.1 mmol/L 21.0 - 32.0 mmol/L [facility] Creatinine [Mass/Vol] 0.6 mg/dL 0.55 - 1.02 mg/dL [facility] GFR/1.73 sq M.predicted CKD-EPI (S/P/Bld) [Vol rate/Area] >60 >=60 mL/min/1.73 m 2 [facility] Globulin (S) [Mass/Vol] 3.9 g/dL [facility] Glucose [Mass/Vol] 101 mg/dL 74 - 106 mg/dL [facility] Interpretation and review of laboratory results Abnormal [facility] Potassium [Moles/Vol] 3.7 mmol/L 3.5 - 5.1 mmol/L [facility] Protein [Mass/Vol] 6.4 g/dL 6.4 - 8.2 g/dL [facility] Sodium [Moles/Vol] 138 mmol/L 136 - 145 mmol/L [facility] EGFR-NON AF ROMANIAN >60 >=60 mL/min/1.73 m 2 [facility] Urea nitrogen [Mass/Vol] 7 mg/dL 7.0 - 18.0 mg/dL [facility] Urea nitrogen/Creatinine [Mass ratio] 11.7 mg/mg [facility] OB GROWTHon 09-18-2024 [place] [address] Ultrasound Report Signed Patient: GIANCARLO CELAYA MR#: [id number] : 1995 Acct:[id number] Age/Sex: 28 / F ADM Date: 09/18/24 Loc: US Attending Dr: Eleazar Lilly D.O. Ordering Physician: Eleazar Lilly D.O. Date of Service: 09/18/24 Procedure(s): US OB growth Accession Number(s): [id number] cc: Eleazar Lilly D.O.; EVELYN VU [place] [address] Patient Name: GIANCARLO CELAYA MRN: [facility]:[id number] date: 1995 Sex: F Assigned Patient Location: US Current Patient Location: US Accession/Order Number: [id number] Exam Date: 09/18/2024 16:23 Report Date: 09/18/2024 [...] Smith M.D. 09/18/2024 4:30 PM Dictation Location: [place] [address] Electronically authenticated by: [id number] Y Date: 09/18/2024 16:30 Dictated By: Wally Smith M.D. Signed By: 09/18/24 1632 DD/ 1630 TD/TT: Skirt Panel Assembler: [facility] Radiology, Radiologist, - 09/18/2024 [place] [address] Ultrasound Report Signed Patient: GIANCARLO CELAYA MR#: [id number] : 1995 Acct:[id number] Age/Sex: 28 / F ADM Date: 09/18/24 Loc: US Attending Dr: Eleazar Lilly D.O. Ordering Physician: Eleazar Lilly D.O. Date of Service: 09/18/24 Procedure(s): US OB growth Accession Number(s): [id number] cc: Eleazar Lilly D.O.; EVELYN VU [address] [address] Patient Name: GIANCARLO CELAYA MRN: [facility]:[id number] date: 1995 Sex: F Assigned Patient Location: US Current Patient Location: US Accession/Order Number: [id number] Exam Date: 09/18/2024 16:23 Report Date: 09/18/2024 [...] Smith M.D. 09/18/2024 4:30 PM Dictation Location: [place] [address] Electronically authenticated by: [id number] Y Date: 09/18/2024 16:30 Dictated By: Wally Smith M.D. Signed By: 09/18/24 1632 DD/ 1630 TD/TT: Skirt Panel Assembler: [facility] Radiology Study observation (narrative) [facility] US OB GROWTHOrdered By: Tico ologist Radiology on 09-18-2024 [facility] Work Phone: Urinalysis macro (dipstick) panel (U)on 09-13-2024 Bilirubin, UA Negative Negative - 4(70) +++ mg/dL [facility] Blood, UA Negative Negative - 50 Fuad/mcL [facility] Clarity, UA Clear [facility] Color, UA Yellow [facility] Glucose, UA Negative Negative - 2000(110) ++++ mg/dL [facility] Interpretation and review of laboratory results Abnormal [facility] Ketones, UA Positive Negative - 160(16) ++++ mg/dL [facility] Comment on above: 15 Leukocytes, UA Negative Negative - 500+++ Sandie/mcL [facility] Nitrite, UA Negative Negative - Positive [facility] pH, UA 6 5 - 9 [facility] Protein, UA Positive Negative - 2000(20) ++++ mg/dL [facility] Comment on above: 30 Spec Grav, UA 1.025 1 - 1.03 [facility] Urobilinogen, UA 1.0 0.2 - 12 mg/dL [facility] ALL CBC WITH AUTO DIFFon BASOPHILS ABSOLUTE AUTO 0 [facility] Basophils/100 WBC (Bld) 0.4 % 0.2 - 2.0 % [facility] Eosinophils/100 WBC (Bld) 0.4 % Low 0.9 - 7.0 % [facility] Erythrocyte distribution width (RBC) [Ratio] 12.4 % 11.0 - 15.0 % [facility] Hematocrit (Bld) [Volume fraction] 34.2 % Low 36.0 - 48.0 % [facility] Hemoglobin (Bld) [Mass/Vol] 11.9 g/dL Low 12.0 - 16.0 g/dL [facility] IMMATURE GRANULOCYTES ABS AUTO 0.17 High [facility] Immature granulocytes/100 WBC (Bld) 1.5 % High 0.0 - 0.5 % [facility] Interpretation and review of laboratory results Abnormal [facility] LYMPHOCYTES ABSOLUTE AUTO 2.1 [facility] Lymphocytes/100 WBC (Bld) 18.7 % Low 20.5 - 60.0 % [facility] MCH (RBC) [Entitic mass] 31.2 pg 26.7 - 34.0 pg [facility] MCHC (RBC) [Mass/Vol] 34.8 g/dL 29.9 - 35.2 g/dL [facility] MCV (RBC) [Entitic vol] 89.5 fL 81.0 - 99.0 fL [facility] MONOCYTES ABSOLUTE AUTO 0.6 [facility] Monocytes/100 WBC (Bld) 4.8 % 1.7 - 12.0 % [facility] NEUTROPHILS ABSOLUTE AUTO 8.4 High [facility] Neutrophils/100 WBC (Bld) 74.2 % 43.0 - 75.0 % [facility] Platelet mean volume (Bld) [Entitic vol] 9.9 fL 9.5 - 13.5 fL [facility] EO # 0.1 [facility] PLT 148 Low [facility] RBC 3.82 Low [facility] WBC 11.4 High [facility] Urinalysis macro (dipstick) panel (U)on 08-20-2024 Bilirubin, UA Negative Negative - 4(70) +++ mg/dL [facility] Blood, UA Negative Negative - 50 Fuad/mcL [facility] Clarity, UA Clear [facility] Color, UA Yellow [facility] Glucose, UA Negative Negative - 1999(110) ++++ mg/dL [facility] Interpretation and review of laboratory results Normal [facility] Ketones, UA Negative Negative - 160(16) ++++ mg/dL [facility] Leukocytes, UA Negative Negative - 500+++ Sandie/mcL [facility] Nitrite, UA Negative Negative - Positive [facility] pH, UA 7 5 - 9 [facility] Protein, UA Negative Negative - 1999(20) ++++ mg/dL [facility] Spec Grav, UA 1.02 1 - 1.03 [facility] Urobilinogen, UA 0.2 0.2 - 12 mg/dL [facility] US OB LIMITED 1+ FETUSESon 0 07-23-2024 [...] II, MD, PHD at 24-Jul-2024 12:32:57 AM [facility] Normal Not Available Comment on above: Order Comment: US OB INCOMPLETE ANATOMY W US OB TRANSVAGINAL Estimated Date of Delivery: 11/09/24 Gestational Age as of 06/26/2024: 20w4d Urinalysis macro (dipstick) panel (U)on 07-23-2024 Bilirubin, UA Negative Negative - 4(70) +++ mg/dL [facility] Blood, UA Negative Negative - 50 Fuad/mcL [facility] Clarity, UA Clear [facility] Color, UA Yellow [facility] Glucose, UA Negative Negative - 1999(110) ++++ mg/dL [facility] Interpretation and review of laboratory results Normal [facility] Ketones, UA Negative Negative - 160(16) ++++ mg/dL [facility] Leukocytes, UA Negative Negative - 500+++ Sandie/mcL [facility] Nitrite, UA Negative Negative - Positive [facility] pH, UA 6 5 - 9 [facility] Protein, UA Negative Negative - 1999(20) ++++ mg/dL [facility] Spec Grav, UA 1.02 1 - 1.03 [facility] Urobilinogen, UA 0.2 0.2 - 12 mg/dL [facility] AFP, SERUM, OPEN SPINA BIFID Aon 07-11-2024 AFP MOM 2.63 . [facility] AFP VALUE 133.2 ng/mL . [facility] COMMENT: Comment . [facility] Comment on above: Ronit Moncada , Ph.D., [facility] Director References: Available Upon Request. Multiples Of Median Cutoffs For AFP Elevations Giles 2.5 Black 2.8 IDD 2.0 Twins 4.5 Abbreviation Definitions IDD - Insulin Dep Diabetes OSBR - Open Spina Bifida Risk For further inquiries contact [employer] at [phone]. This test was developed and its performance characteristics determined by [employer]. It has not been cleared or approved by the Food and Drug Administration. Performed at: [facility] [address] [place], [place] [id number] [employer] Operations Engineer: Darion Albrecht [facility], Phone: [phone] GEST. AGE ON COLLECTION DATE 18.0 . weeks [facility] GESTAT. AGE BASED ON As provided . [facility] Comment on above: Recalculations are n ot recommended when gestational dating by LMP and ultrasound are within 10 days. INSULIN DEP DIABETES No . [facility] INTERPRETATION Comment . [facility] Comment on above: Interpretation: Scre en Positive [...] Interpretation and review of laboratory results Abnormal [facility] [age] [facility] MULTIPLE GESTATION No . [facility] OSBR RISK 1 IN 225 . [facility] RACE . [facility] RESULTS Report . [facility] TEST RESULTS: Positive Abnormal . [facility] WEIGHT 119 . lbs [facility] N N ULTRASOUND [id number] N 1 119 N N N N N White/ [facility] Urinalysis macro (dipstick) panel (U)on 06-26-2024 Bilirubin, UA Negative Negative - 4(70) +++ mg/dL [facility] Blood, UA Negative Negative - 50 Fuad/mcL [facility] Clarity, UA Clear [facility] Color, UA Yellow [facility] Glucose, UA Negative Negative - 2000(110) ++++ mg/dL [facility] Interpretation and review of laboratory results Normal [facility] Ketones, UA Negative Negative - 160(16) ++++ mg/dL [facility] Leukocytes, UA Negative Negative - 500+++ Sandie/mcL [facility] Nitrite, UA Negative Negative - Positive [facility] pH, UA 6 5 - 9 [facility] Protein, UA Negative Negative - 2000(20) ++++ mg/dL [facility] Spec Grav, UA 1.025 1 - 1.03 [facility] Urobilinogen, UA 0.2 0.2 - 12 mg/dL [facility] No Panel InformationOrdered By: Radiologist Radiology on 06-23-2024 [facility] Work Phone: No Panel Informationon 06-23 Radiology Study observation (narrative) [facility] US OB ANATOMYon 06-23-[address] [address] Ultrasound Report Signed Patient: GIANCARLO CELAYA MR#: [id number] : 1995 Acct:[id number] Age/Sex: 28 / F ADM Date: 06/22/24 Loc: US Attending Dr: Cheryl Baugh Ordering Physician: Cheryl Baugh Date of Service: 06/22/24 Procedure(s): US OB anatomy Accession Number(s): [id number] cc: Cheryl Baugh; EVELYN VU [address] [address] Patient Name: GIANCARLO CELAYA MRN: [id number] date: 1995 Sex: F Assigned Patient Location: Current Patient Location: Accession/Order Number: [id number] Exam Date: 06/22/2024 17:16 Report Date: 06/23/2024 [...] Signed By: 06/23/24 0800 DD/ 0757 TD/TT: Skirt Panel Assembler: [facility] Radiology, Radiologist, MD - 06/23/2024 [place] [address] Ultrasound Report Signed Patient: GIANCARLO CELAYA MR#: [id number] : 1995 Acct:[id number] Age/Sex: 28 / F ADM Date: 06/22/24 Loc: US Attending Dr: Cheryl Baugh Ordering Physician: Cheryl Baugh Date of Service: 06/22/24 Procedure(s): US OB anatomy Accession Number(s): [id number] cc: Cheryl Baugh; EVELYN VU [place] [address] Patient Name: GIANCARLO CELAYA MRN: [facility]:[id number] date: 1995 Sex: F Assigned Patient Location: US Current Patient Location: Accession/Order Number: [id number] Exam Date: 06/22/2024 17:16 Report Date: 06/23/2024 [...] Signed By: 06/23/24 0800 DD/ 0757 TD/TT: Skirt Panel Assembler: [facility] CERVICAL LENGTHon 06-[address] [address] Ultrasound Report Signed Patient: GIANCARLO CELAYA MR#: [id number] : 1995 Acct:[id number] Age/Sex: 28 / F ADM Date: 06/22/24 Loc: US Attending Dr: Cheryl Baugh Ordering Physician: Cheryl Baugh Date of Service: 06/22/24 Procedure(s): US OB cervical length Accession Number(s): [id number] cc: Cheryl Baugh; EVELYN VU [address] [address] Patient Name: GIANCARLO CELAYA MRN: [id number] date: 1995 Sex: F Assigned Patient Location: US Current Patient Location: Accession/Order Number: [id number] Exam Date: 06/22/2024 17:16 Report Date: 06/23/2024 [...] Signed By: 06/23/24 0800 DD/ 0757 TD/TT: Skirt Panel Assembler: [facility] Radiology, Radiologist, MD - 06/23/2024 [place] [address] Ultrasound Report Signed Patient: GIANCARLO CELAYA MR#: [id number] : 1995 Acct:[id number] Age/Sex: 28 / F ADM Date: 06/22/24 Loc: US Attending Dr: Cheryl Baugh Ordering Physician: Cheryl Baugh Date of Service: 06/22/24 Procedure(s): US OB cervical length Accession Number(s): [id number] cc: Cheryl Baugh; EVELYN VU [address] [address] Patient Name: GIANCARLO CELAYA MRN: [facility]:[id number] date: 1995 Sex: F Assigned Patient Location: US Current Patient Location: Accession/Order Number: [id number] Exam Date: 06/22/2024 17:16 Report Date: 06/23/2024 [...] Signed By: 06/23/24 0800 DD/ 0757 TD/TT: Skirt Panel Assembler: DENG Mercedes IGP,APTIMA HPV,AGE GDLNon AGE GDLN ACOG TESTING Note . [facility] Comment on above: TESTS RESULT FLAG UN ITS REF RANGE LAB Clinician Provided Cytology Information Source.............Cervix No. of containers..01 ThinPrep Vial Age Algo ACOG Jessica... -7 06 FLAG LEGEND: L-Low Normal,H-High Normal,LL-Alert Low,HH-Alert High <-Panic Low,>-Panic High,A-Abnormal,AA-Critical Abnormal Performed at: 01 =G [facility] [address] [facility] [place] [address] Bri Keenan MD, IGP, RFX APTIMA HPV ASCU Note . [facility] Comment on above: TESTS RESULT FLAG UN ITS REF RANGE LAB DIAGNOSIS: 02 NEGATIVE FOR INTRAEPITHELIAL LESION OR MALIGNANCY. Specimen adequacy: 02 Satisfactory for evaluation. No endocervical component is identified. Performed by: Surinder Farrell, Ict Developer ([facility]) . 02 Note: Note 02 The Pap [...] <-Panic Low,>-Panic High,A-Abnormal,AA-Critical Abnormal Performed at: [address] [address] Bri Keenan MD, Performed at: = - [facility] [address] [id number] [employer] Operations Engineer: Bri Keenan MD, Phone: [phone] Performed at: [facility] [address] [id number] [employer] Operations Engineer: Bri Keenan MD, Phone: [phone] [facility] Urinalysis macro (dipstick) panel (U)on 05-28-2024 Bilirubin, UA Negative Negative - 4(70) +++ mg/dL [facility] Blood, UA Negative Negative - 50 Fuad/mcL [facility] Clarity, UA Clear [facility] Color, UA Yellow [facility] Glucose, UA Negative Negative - 1999(110) ++++ mg/dL [facility] Interpretation and review of laboratory results Normal [facility] Ketones, UA Negative Negative - 160(16) ++++ mg/dL [facility] Leukocytes, UA Negative Negative - 500+++ Sandie/mcL [facility] Nitrite, UA Negative Negative - Positive [facility] pH, UA 5.5 5 - 9 [facility] Protein, UA Negative Negative - 1999(20) ++++ mg/dL [facility] Spec Grav, UA 1.02 1 - 1.03 [facility] Urobilinogen, UA 1.0 0.2 - 12 mg/dL [facility] Urinalysis macro (dipstick) panel (U)on 04-30-2024 Bilirubin, UA Negative Negative - 4(70) +++ mg/dL [facility] Blood, UA Negative Negative - 50 Fuad/mcL [facility] Healthcare Clarity, UA Clear [facility] Color, UA Yellow [facility] Glucose, UA Negative Negative - 2000(110) ++++ mg/dL [facility] Interpretation and review of laboratory results Abnormal [facility] Ketones, UA Positive Negative - 160(16) ++++ mg/dL [facility] Comment on above: trace Leukocytes, UA Negative Negative - 500+++ Sandie/mcL [facility] Nitrite, UA Negative Negative - Positive [facility] pH, UA 5.5 5 - 9 [facility] Protein, UA Negative Negative - 2000(20) ++++ mg/dL [facility] Spec Grav, UA 1.025 1 - 1.03 [facility] Urobilinogen, UA 0.2 0.2 - 12 mg/dL [facility] Basophils Auto (Bld) [#/Vol] on 04-16-2024 Basophils (Bld) [#/Vol] Automated basophil count 0.0-0.1 [facility] Basophils/100 WBC Auto (Bld) on 04-16-2024 Basophils/100 WBC (Bld) Automated basophil % 0.2-2.0 [facility] Buprenorphine [Presence] in Urineon 04-16-2024 Buprenorphine Ql (U) Buprenorphine [Presence] in Urine NEGATIVE [facility] Comment on above: DRUG CLASS TEST [...] WBC (Bld) Automated eosinophil % Low 0.9-7.0 [facility] Erythrocyte distribution wid th Auto (RBC) [Ratio]on 04-16-2024 Erythrocyte distribution width (RBC) [Ratio] Erythrocyte distribution width [Ratio] by Automated count 11.0-15.0 [facility] Glucose mean value [Mass/vol ume] in Blood Estimated from glycated hemoglobinon 04-16-2024 Average glucose Estimated from glycated hemoglobin (Bld) [Mass/Vol] Glucose mean value [Mass/volume] in Blood Estimated from glycated hemoglobin [facility] HBV surface Ag IA Qlon 12-09 -2024 Hepatitis B Surface Antigen Negative Negative [facility] Comment on above: Performed at: [facility] [address] [id number] Director: Sheldon Polo PhD, Phone: [phone] HIV 1 and HIV-2 antibody ass ay with HIV-1 p24 antigen detectionon 04-16-2024 HIV 1+2 Ab+HIV1 p24 Ag IA Ql HIV 1 and HIV-2 antibody assay with HIV-1 p24 antigen detection Non Reactive [facility] Comment on above: HIV-1/HIV-2 antibodi es and HIV-1 p24 antigen were NOTdetected. There is no laboratory evidence of HIV infection.HIV NegativePerformed at: [facility] [address] [id number] Director: Sheldon Polo PhD, Phone: [phone] Hematocrit Auto (Bld) [Volum e fraction]on 04-16-2024 Hematocrit (Bld) [Volume fraction] Hematocrit [Volume Fraction] of Blood by Automated count 36.0-48.0 [facility] Hemoglobin [Mass/volume] in Bloodon 04-16-2024 Hemoglobin (Bld) [Mass/Vol] Hemoglobin [Mass/volume] in Blood 12.0-16.0 [facility] Laboratory - Drug toxicology on 04-16-2024 Amphetamines Ql (U) Negative NEGATIVE [facility] Benzodiazepines Ql (U) Negative NEGATIVE [facility] Cocaine Ql (U) Negative NEGATIVE [facility] Opiates Ql (U) Negative NEGATIVE [facility] Phencyclidine Ql (U) Negative NEGATIVE [facility] Laboratory - Hematology and Cell countson 04-16-2024 HbA1c (Bld) [Mass fraction] 4.8 % 4.5-6.2 [facility] Comment on above: ADA RECOMMENDED LIMI T 4.0 - 6.0ADA THERAPEUTIC TARGET < 7.0ACTION SUGGESTED> 7.0 Immature granulocytes/100 WBC (Bld) 0.6 % High 0.0-0.5 [facility] Leukocytes [#/volume] correc leonidas for nucleated erythrocytes in Blood by Automated counon 04-16-2024 WBC corrected for nucl RBC Auto (Bld) [#/Vol] Leukocytes [#/volume] corrected for nucleated erythrocytes in Blood by Automated coun 4.0-11.0 [facility] Lymphocytes Auto (Bld) [#/Vo l]on 04-16-2024 Lymphocytes (Bld) [#/Vol] Lymphocytes [#/volume] in Blood by Automated count 1.2-3.8 [facility] Lymphocytes/100 WBC Auto (Bl d)on 04-16-2024 Lymphocytes/100 WBC (Bld) Lymphocytes/100 leukocytes in Blood by Automated count Low 20.5-60.0 [facility] MCH Auto (RBC) [Entitic mass ]on 04-16-2024 MCH (RBC) [Entitic mass] MCH [Entitic mass] by Automated count 26.7-34.0 [facility] MCHC Auto (RBC) [Mass/Vol]on 04-16-2024 MCHC (RBC) [Mass/Vol] MCHC [Mass/volume] by Automated count High 29.9-35.2 [facility] MCV Auto (RBC) [Entitic vol] on 04-16-2024 MCV (RBC) [Entitic vol] MCV [Entitic volume] by Automated count 81.0-99.0 [facility] MLR HEMOGLOBIN A1Con 024 Glucose [Mass/Vol] 91 mg/dL [facility] HbA1c (Bld) [Mass fraction] 4.8 % 4.5 - 6.2 % [facility] Comment on above: ADA RECOMMENDED LIMI T 4.0 - 6.0 ADA THERAPEUTIC TARGET < 7.0 ACTION SUGGESTED > 7.0 [facility] Methadone [Presence] in Urin e by Screen methodon 04-16-2024 Methadone Screen Ql (U) Methadone [Presence] in Urine by Screen method NEGATIVE [facility] Monocytes Auto (Bld) [#/Vol] on 04-16-2024 Monocytes (Bld) [#/Vol] Automated blood monocyte count 0.3-0.8 [facility] Monocytes/100 WBC Auto (Bld) on 04-16-2024 Monocytes/100 WBC (Bld) Automated monocyte % 1.7-12.0 [facility] Neutrophils Auto (Bld) [#/Vo l]on 04-16-2024 Neutrophils (Bld) [#/Vol] Neutrophils [#/volume] in Blood by Automated count High 1.4-6.5 [facility] Neutrophils/100 WBC Auto (Bl d)on 04-16-2024 Neutrophils/100 WBC (Bld) Automated neutrophil % 43.0-75.0 [facility] No Panel Informationon 04-16 Eosinophils # (Auto) 0.1 10 3/uL 0.0-0.7 [facility] Hepatitis C Interpretation Comment . [facility] Comment on above: Not infected with HC V unless early or acute infection issuspected (which may be delayed in an immunocompromisedindividual), or other evidence exists to indicate HCVinfection. Immature Granulocyte # (Auto) 0.05 10 3/uL High 0.00-0.03 [facility] RPR Quantitative Confirmation Non Reactive titer NonRea<1:1 [facility] Comment on above: Please Note: This te st does not meet current guidelines forscreening and diagnosis of syphilis. This test isintended for following treatment response in patients beingtreated for syphilis infection. To screen for syphilisinfection, a reflex cascade that includes both RPR and atreponema-specific assay should be utilized, such asTreponema pallidum (Syphilis) Screening [place] (462987) orRapid Plasma Reagin (RPR) Test With Reflex to QuantitativeRPR and Confirmatory Treponema pallidum Antibodies(151509).Performed at: [address] [id number] Director: Sheldon Polo PhD, Phone: [phone] Rubella IgG Antibody 7.20 index Immune >0.99 [facility] Comment on above: Non-immune <0.90 Equ ivocal 0.90 - 0.99 Immune >0.99 Urine Barbiturates Screen Negative NEGATIVE [facility] Urine Marijuana (THC) Screen Negative NEGATIVE [facility] Urine Methamphetamines Screen Negative NEGATIVE [facility] Platelet mean volume Auto (B ld) [Entitic vol]on 04-16-2024 Platelet mean volume (Bld) [Entitic vol] Platelet mean volume [Entitic volume] in Blood by Automated count 9.5-13.5 [facility] Platelets Auto (Bld) [#/Vol] on 04-16-2024 Platelets (Bld) [#/Vol] Platelets [#/volume] in Blood by Automated count 150-450 [facility] RBC Auto (Bld) [#/Vol]on RBC (Bld) [#/Vol] Erythrocytes [#/volume] in Blood by Automated count 4.20-5.40 [facility] Serum or plasma hepatitis C virus antibody signal/cutoff ratio by immunoassay (relation 04-16-2024 HCV Ab Signal/Cutoff IA [Rel units/Vol] Serum or plasma hepatitis C virus antibody signal/cutoff ratio by immunoassay (relati Non Reactive [facility] Urine tricyclic antidepressa nt measurementon 04-16-2024 Tricyclic antidepressants (U) [Mass/Vol] Urine tricyclic antidepressant measurement NEGATIVE [facility] oxyCODONE+oxyMORphone [Prese nce] in Urine by Screen methodon 04-16-2024 oxyCODONE+oxyMORphone Screen Ql (U) oxyCODONE+oxyMORphone [Presence] in Urine by Screen method NEGATIVE [facility] BOX TESTon 04-13-2024 BOX TEST SENT OUT 04/13/2024 [facility] [address] [facility] [address] [facility] HCG ( test) Ql (U)o n 03-23-2024 Interpretation and review of laboratory results Abnormal [facility] Preg Test, Ur Positive Negative [facility] [facility] macro (dipstick) panel (U)on 03-23-2024 Bilirubin, UA Negative Negative - 4(70) +++ mg/dL [facility] Blood, UA Negative Negative - 50 Fuad/mcL [facility] Clarity, UA Clear [facility] Color, UA Yellow [facility] Glucose, UA Negative Negative - 1999(110) ++++ mg/dL [facility] Interpretation and review of laboratory results Abnormal [facility] Ketones, UA Positive Negative - 160(16) ++++ mg/dL [facility] Leukocytes, UA Negative Negative - 500+++ Sandie/mcL [facility] Nitrite, UA Negative Negative - Positive [facility] pH, UA 5.5 5 - 9 [facility] Protein, UA Negative Negative - 1999(20) ++++ mg/dL [facility] Spec Grav, UA 1.03 1 - 1.03 [facility] Urobilinogen, UA 0.2 0.2 - 12 mg/dL [facility] Laboratory - Chemistry and C hemistry - challengeon 03-17-2024 Bilirubin Ql (U) Negative NEGATIVE [facility] Glucose (U) [Mass/Vol] Negative NEGATIVE [facility] Ketones Ql (U) Negative NEGATIVE [facility] pH (U) 7.0 [pH] 5.0-9.0 [facility] Specific gravity (U) [Rel density] 1.020 1.005-1.025 [facility] Urobilinogen Qn (U) 1.0 {Chanel'U}/dL 0.2-1.0 [facility] Laboratory - Specimen inform ationon 03-17-2024 Appearance (U) CLEAR CLEAR [facility] Color (U) LT. YELLOW YELLOW [facility] Laboratory - Urinalysison Leukocyte esterase Test strip Ql (U) TRACE Abnormal NEGATIVE [facility] Mucus Ql (Urine sed) TRACE Abnormal NONE SEEN [facility] Nitrite Ql (U) Negative NEGATIVE [facility] Protein Ql (U) Negative NEG/TRACE [facility] No Panel Informationon 03-17 Human Chorionic Gonadotropin, Quant 25835 mIU/mL [facility] Comment on above: 5-50 0.2-1 [id number] 0 1-2 BPXBU522-0,000 2-3 BWZAR656-91,000 3-4 WEEKS1,000-50,000 4-5 WEEKS10,000-100,000 5-6 WEEKS15,000-200,000 6-8 WEEKS10,000-100,000 2-3 MONTHS Miscellaneous Test Comment See comment [facility] Comment on above: Specimen Source: UCC - Urine,Clean Catch - Urine CC - 200.100 Urine Bacteria MODERATE #/HPF Abnormal NONE SEEN [facility] Urine Culture Reflexed YES [facility] Urine Culture Result 1 \R\ Urine Culture, Routine [facility] Urine Microscopic Review YES [facility] Urine Occult Blood MODERATE Abnormal NEGATIVE [facility] Urine Other Casts NONE SEEN #/LPF NONE SEEN [facility] Urine Other Crystals None Seen #/HPF None Seen [facility] Urine RBC 2-5 #/HPF Abnormal 0-2 [facility] Urine Squamous Epithelial Cells MODERATE #/LPF Abnormal NONE/RARE [facility] Urine WBC 0-2 #/HPF Abnormal NONE SEEN [facility] HCG ( test) Ql (U)o n 03-14-2024 Interpretation and review of laboratory results Abnormal [facility] Preg Test, Ur Positive Negative [facility] Urinalysis macro (dipstick) panel (U)on 03-14-2024 Bilirubin, UA Positive Negative - 4(70) +++ mg/dL [facility] Comment on above: small Blood, UA Positive Negative - 50 Fuad/mcL [facility] Comment on above: moderate Clarity, UA Clear [facility] Color, UA Yellow [facility] Glucose, UA Negative Negative - 2000(110) ++++ mg/dL [facility] Interpretation and review of laboratory results Abnormal [facility] Ketones, UA Positive Negative - 160(16) ++++ mg/dL [facility] Comment on above: 40 Leukocytes, UA Negative Negative - 500+++ Sandie/mcL [facility] Nitrite, UA Negative Negative - Positive [facility] pH, UA 5.5 5 - 9 [facility] Protein, UA Negative Negative - 2000(20) ++++ mg/dL [facility] Spec Grav, UA 1.03 1 - 1.03 [facility] Urobilinogen, UA 0.2 0.2 - 12 mg/dL [facility] No Panel Informationon 03-08 Human Chorionic Gonadotropin, Quant 2190 mIU/mL [facility] Comment on above: 5-50 0.2-1 EPBW07-58 0 1-2 SNIBO252-9,000 2-3 VKUUP999-05,000 3-4 WEEKS1,000-50,000 4-5 WEEKS10,000-100,000 5-6 WEEKS15,000-200,000 6-8 WEEKS10,000-100,000 2-3 MONTHS [facility] PREG QUANT HCGon 024 HCG QUANTITATIVE 2190 mIU/mL [facility] Comment on above: 5-50 0.2-1 WEEK 50-500 1-2 WEEKS 100-5,000 2-3 WEEKS 500-10,000 3-4 WEEKS 1,000-50,000 4-5 WEEKS 10,000-100,000 5-6 WEEKS 15,000-200,000 6-8 WEEKS 10,000-100,000 2-3 MONTHS [facility] No Panel Informationon 03-02 Human Chorionic Gonadotropin, Quant 67 mIU/mL [facility] Comment on above: 5-50 0.2-1 NUPP26-58 0 1-2 NYKDU165-1,000 2-3 GLCCY762-05,000 3-4 WEEKS1,000-50,000 4-5 WEEKS10,000-100,000 5-6 WEEKS15,000-200,000 6-8 WEEKS10,000-100,000 2-3 MONTHS No Panel Informationon 02-28 Human Chorionic Gonadotropin, Quant 30 mIU/mL [facility] Comment on above: 5-50 0.2-1 XRLI63-02 0 1-2 ADCBG938-9,000 2-3 HWMJC297-93,000 3-4 WEEKS1,000-50,000 4-5 WEEKS10,000-100,000 5-6 WEEKS15,000-200,000 6-8 WEEKS10,000-100,000 2-3 MONTHS Basophils Auto (Bld) [#/Vol] on 02-27-2024 Basophils (Bld) [#/Vol] Automated basophil count 0.0-0.1 [facility] Basophils/100 WBC Auto (Bld) on 02-27-2024 Basophils/100 WBC (Bld) Automated basophil % 0.2-2.0 [facility] Eosinophils/100 WBC Auto (Bl d)on 02-27-2024 Eosinophils/100 WBC (Bld) Automated eosinophil % Low 0.9-7.0 [facility] Erythrocyte distribution wid th Auto (RBC) [Ratio]on 02-27-2024 Erythrocyte distribution width (RBC) [Ratio] Erythrocyte distribution width [Ratio] by Automated count 11.0-15.0 [facility] Estimated glomerular filtrat ion rate (GFR) non- Americanon 02-27-2024 GFR/1.73 sq M.predicted among non-blacks MDRD (S/P/Bld) [Vol rate/Area] Estimated glomerular filtration rate (GFR) non- >=60 mL/min/1.73 m 2 [facility] HCG ( test) Amira d Ql (U)on 02-27-2024 HCG ( test) Ql (U) Urine human chorionic gonadotropin (hCG) detection by immunoassay Abnormal NEGATIVE [facility] Hematocrit Auto (Bld) [Volum e fraction]on 02-27-2024 Hematocrit (Bld) [Volume fraction] Hematocrit [Volume Fraction] of Blood by Automated count 36.0-48.0 [facility] Hemoglobin [Mass/volume] in Bloodon 02-27-2024 Hemoglobin (Bld) [Mass/Vol] Hemoglobin [Mass/volume] in Blood 12.0-16.0 [facility] Laboratory - Chemistry and C hemistry - challengeon 02-27-2024 Calcium [Mass/Vol] 9.4 mg/dL 8.5-10.1 [facility] Chloride [Moles/Vol] 104 mmol/L 98-107 [facility] CO2 [Moles/Vol] 22.6 mmol/L 21.0-32.0 [facility] Creatinine [Mass/Vol] 0.79 mg/dL 0.55-1.02 [facility] GFR/1.73 sq M.predicted MDRD (S/P/Bld) [Vol rate/Area] mL/min/{1.73_m2} >=60 mL/min/1.73 m 2 [facility] Glucose [Mass/Vol] 88 mg/dL 74-106 [facility] Potassium [Moles/Vol] 3.4 mmol/L Low 3.5-5.1 [facility] Sodium [Moles/Vol] 139 mmol/L 136-145 [facility] Urea nitrogen [Mass/Vol] 10.0 mg/dL 7.0-18.0 [facility] Urea nitrogen/Creatinine [Mass ratio] 12.7 mg/mg [facility] Bilirubin Ql (U) Negative NEGATIVE [facility] Glucose (U) [Mass/Vol] Negative NEGATIVE [facility] Ketones Ql (U) 15 mg/dL Abnormal NEGATIVE [facility] pH (U) 6.0 [pH] 5.0-9.0 [facility] Specific gravity (U) [Rel density] 1.025 1.005-1.025 [facility] Urobilinogen Qn (U) 0.2 {Chanel'U}/dL 0.2-1.0 [facility] Laboratory - Hematology and Cell countson 02-27-2024 Immature granulocytes/100 WBC (Bld) 0.1 % 0.0-0.5 [facility] Laboratory - Specimen inform ationon 02-27-2024 Appearance (U) CLEAR CLEAR [facility] Color (U) LT. YELLOW YELLOW [facility] Laboratory - Urinalysison Leukocyte esterase Test strip Ql (U) Negative NEGATIVE [facility] Nitrite Ql (U) Negative NEGATIVE [facility] Protein Ql (U) Negative NEG/TRACE [facility] Leukocytes [#/volume] correc leonidas for nucleated erythrocytes in Blood by Automated counon 02-27-2024 WBC corrected for nucl RBC Auto (Bld) [#/Vol] Leukocytes [#/volume] corrected for nucleated erythrocytes in Blood by Automated coun 4.0-11.0 [facility] Lymphocytes Auto (Bld) [#/Vo l]on 02-27-2024 Lymphocytes (Bld) [#/Vol] Lymphocytes [#/volume] in Blood by Automated count 1.2-3.8 [facility] Lymphocytes/100 WBC Auto (Bl d)on 02-27-2024 Lymphocytes/100 WBC (Bld) Lymphocytes/100 leukocytes in Blood by Automated count 20.5-60.0 [facility] MCH Auto (RBC) [Entitic mass ]on 02-27-2024 MCH (RBC) [Entitic mass] MCH [Entitic mass] by Automated count 26.7-34.0 [facility] MCHC Auto (RBC) [Mass/Vol]on 02-27-2024 MCHC (RBC) [Mass/Vol] MCHC [Mass/volume] by Automated count High 29.9-35.2 [facility] MCV Auto (RBC) [Entitic vol] on 02-27-2024 MCV (RBC) [Entitic vol] MCV [Entitic volume] by Automated count 81.0-99.0 [facility] Monocytes Auto (Bld) [#/Vol] on 02-27-2024 Monocytes (Bld) [#/Vol] Automated blood monocyte count 0.3-0.8 [facility] Monocytes/100 WBC Auto (Bld) on 02-27-2024 Monocytes/100 WBC (Bld) Automated monocyte % 1.7-12.0 [facility] Neutrophils Auto (Bld) [#/Vo l]on 02-27-2024 Neutrophils (Bld) [#/Vol] Neutrophils [#/volume] in Blood by Automated count 1.4-6.5 [facility] Neutrophils/100 WBC Auto (Bl d)on 02-27-2024 Neutrophils/100 WBC (Bld) Automated neutrophil % 43.0-75.0 [facility] No Panel Informationon 02-26 Eosinophils # (Auto) 0.1 10 3/uL 0.0-0.7 [facility] Human Chorionic Gonadotropin, Quant 16 mIU/mL [facility] Comment on above: 5-50 0.2-1 ESRE41-55 0 1-2 VERGI045-3,000 2-3 JNWVS076-12,000 3-4 WEEKS1,000-50,000 4-5 WEEKS10,000-100,000 5-6 WEEKS15,000-200,000 6-8 WEEKS10,000-100,000 2-3 MONTHS Immature Granulocyte # (Auto) 0.01 10 3/uL 0.00-0.03 [facility] Urine Microscopic Review NO [facility] Urine Occult Blood Negative NEGATIVE [facility] Platelet mean volume Auto (B ld) [Entitic vol]on 02-27-2024 Platelet mean volume (Bld) [Entitic vol] Platelet mean volume [Entitic volume] in Blood by Automated count 9.5-13.5 [facility] Platelets Auto (Bld) [#/Vol] on 02-27-2024 Platelets (Bld) [#/Vol] Platelets [#/volume] in Blood by Automated count 150-450 [facility] RBC Auto (Bld) [#/Vol]on RBC (Bld) [#/Vol] Erythrocytes [#/volume] in Blood by Automated count 4.20-5.40 [facility] Serum or plasma anion gap de terminationon 02-27-2024 Anion gap [Moles/Vol] Serum or plasma an ion gap determination [facility] No Panel Informationon 02-20 Human Chorionic Gonadotropin, Quant <1 mIU/mL [facility] Comment on above: 5-50 0.2-1 EYDV97-26 0 1-2 JABBZ601-3,000 2-3 SFNTC936-37,000 3-4 WEEKS1,000-50,000 4-5 WEEKS10,000-100,000 5-6 WEEKS15,000-200,000 6-8 WEEKS10,000-100,000 2-3 MONTHS URETHRITIS/DISCHARGE PLUS VA GINITIS (HTRX)on 02-10-2024 ATOPOBIUM VAGINAE 0.000 [facility] ATOPOBIUM VAGINAE Not detected [facility] BVAB 2,3 (BACTERIAL VAGINOSIS ASSOCIATED BACTERIA 2, 3); MOBILUNCUS SPP 0.000 [facility] BVAB 2,3 (BACTERIAL VAGINOSIS ASSOCIATED BACTERIA 2, 3); MOBILUNCUS SPP Not detected [facility] ALICIA ALBICANS, PARAPSILOSIS, TROPICALIS 0.000 [facility] ALICIA ALBICANS, PARAPSILOSIS, TROPICALIS Not detected [facility] ALICIA GLABRATA 0.000 [facility] ALICIA GLABRATA Not detected [facility] ALICIA KRUSEI 0.000 [facility] ALICIA KRUSEI Not detected [facility] CHLAMYDIA TRACHOMATIS 0.000 [facility] CHLAMYDIA TRACHOMATIS Not detected [facility] GARDNERELLA VAGINALIS 0.000 [facility] GARDNERELLA VAGINALIS Not detected N [facility] MEGASPHAERA (TYPES 1, 2) 0.000 [facility] MEGASPHAERA (TYPES 1, 2) Not detected [facility] MYCOPLASMA GENITALIUM 0.000 [facility] MYCOPLASMA GENITALIUM Not detected N [facility] NEISSERIA GONORRHOEAE 0.000 [facility] NEISSERIA GONORRHOEAE Not detected N [facility] TRICHOMONAS VAGINALIS 0.000 [facility] TRICHOMONAS VAGINALIS Not detected N [facility] HCG ( test) Ql (U)o n 02-08-2024 Interpretation and review of laboratory results Normal [facility] Preg Test, Ur Negative [facility] Urinalysis macro (dipstick) panel (U)on 02-08-2024 Bilirubin, UA Negative Negative - 4(70) +++ mg/dL [facility] Blood, UA Negative Negative - 50 Fuad/mcL [facility] Clarity, UA Clear [facility] Color, UA Yellow [facility] Glucose, UA Negative Negative - 2000(110) ++++ mg/dL [facility] Interpretation and review of laboratory results Normal [facility] Ketones, UA Negative Negative - 160(16) ++++ mg/dL [facility] Leukocytes, UA Negative Negative - 500+++ Sandie/mcL [facility] Nitrite, UA Negative Negative - Positive [facility] pH, UA 7.5 5 - 9 [facility] Protein, UA Negative Negative - 2000(20) ++++ mg/dL [facility] Spec Grav, UA 1.020 1 - 1.03 [facility] Urobilinogen, UA 0.2 0.2 - 12 mg/dL [facility] Vaginitis Plus (VG+)on 02-01 Atopobium Vaginae Low - 0 Normal . [facility] Comment on above: Result Comment: This test was developed and its performance characteristics determined by [facility]. It has not been cleared or approved by the Food and Drug Administration. Performed By: #### V AGINITIS+ #### [facility] , BVAB2 Low - 0 Normal . [facility] Comment on above: Result Comment: This test was developed and its performance characteristics determined by [facility]. It has not been cleared or approved by the Food and Drug Administration. Performed By: #### V AGINITIS+ #### [facility] , Alicia Albicans, ELDON Positive Critically abnormal Negative [facility] Comment on above: Result Comment: This test was developed and its performance characteristics determined by [facility]. It has not been cleared or approved by the Food and Drug Administration. Performed By: #### V AGINITIS+ #### [facility] , Alicia Glabrata, ELDON Negative Normal Negative [facility] Comment on above: Result Comment: This test was developed and its performance characteristics determined by [facility]. It has not been cleared or approved by the Food and Drug Administration. PERFORMED BY: [address] [place] [address] PATHOLOGIST LOCKSTITCH BINDER IRENE TURPIN M.D. Performed By: #### V AGINITIS+ #### [facility] , Chlamydia Trachomotis, ELDON Negative Normal Negative [facility] Comment on above: Performed By: #### V AGINITIS+ #### [facility] , Megasphaera Low - 0 Normal . [facility] Comment on above: Result [...] Gonorrhoeae, ELDON Negative Normal Negative [facility] Comment on above: Result Comment: Perf ormed at: =G - [facility] [address] [id number] [employer] Engineer: Bri Keenan MD, Phone: [phone] Performed By: #### V AGINITIS+ #### [facility] , Tric Vag ELDON Negative Normal Negative The [facility] Comment on above: Performed By: #### V AGINITIS+ #### [facility] , Basophils Auto (Bld) [#/Vol] on 01-19-2024 Basophils (Bld) [#/Vol] 0.0 10 3/uL 0.0-0.1 [facility] Basophils/100 WBC Auto (Bld) on 01-19-2024 Basophils/100 WBC (Bld) 0.4 % 0.2-2.0 [facility] Eosinophils/100 WBC Auto (Bl d)on 01-19-2024 Eosinophils/100 WBC (Bld) 1.0 % 0.9-7.0 [facility] Erythrocyte distribution wid th Auto (RBC) [Ratio]on 01-19-2024 Erythrocyte distribution width (RBC) [Ratio] 11.7 % 11.0-15.0 [facility] Estimated glomerular filtrat ion rate (GFR) non- Americanon 01-19-2024 GFR/1.73 sq M.predicted among non-blacks MDRD (S/P/Bld) [Vol rate/Area] mL/min/{1.73_m2} >=60 [facility] Hematocrit Auto (Bld) [Volum e fraction]on 01-19-2024 Hematocrit (Bld) [Volume fraction] 39.6 % 36.0-48.0 [facility] Hemoglobin [Mass/volume] in Bloodon 01-19-2024 Hemoglobin (Bld) [Mass/Vol] 14.3 g/dL 12.0-16.0 [facility] Laboratory - Chemistry and C hemistry - challengeon 01-19-2024 Calcium [Mass/Vol] 8.7 mg/dL 8.5-10.1 [facility] Chloride [Moles/Vol] 100 mmol/L 98-107 [facility] CO2 [Moles/Vol] 27.5 mmol/L 21.0-32.0 [facility] Creatinine [Mass/Vol] 0.88 mg/dL 0.55-1.02 [facility] GFR/1.73 sq M.predicted MDRD (S/P/Bld) [Vol rate/Area] mL/min/{1.73_m2} >=60 [facility] Glucose [Mass/Vol] 94 mg/dL 74-106 [facility] Potassium [Moles/Vol] 3.3 mmol/L Low 3.5-5.1 [facility] Sodium [Moles/Vol] 135 mmol/L Low 136-145 [facility] Urea nitrogen [Mass/Vol] 12.0 mg/dL 7.0-18.0 [facility] Urea nitrogen/Creatinine [Mass ratio] 13.6 mg/mg [facility] Laboratory - Hematology and Cell countson 01-19-2024 Immature granulocytes/100 WBC (Bld) 0.0 % 0.0-0.5 [facility] Leukocytes [#/volume] correc leonidas for nucleated erythrocytes in Blood by Automated counon 01-19-2024 WBC corrected for nucl RBC Auto (Bld) [#/Vol] 4.8 10 3/uL 4.0-11.0 [facility] Lymphocytes Auto (Bld) [#/Vo l]on 01-19-2024 Lymphocytes (Bld) [#/Vol] 1.2 10 3/uL 1.2-3.8 [facility] Lymphocytes/100 WBC Auto (Bl d)on 01-19-2024 Lymphocytes/100 WBC (Bld) 25.1 % 20.5-60.0 [facility] MCH Auto (RBC) [Entitic mass ]on 01-19-2024 MCH (RBC) [Entitic mass] 30.4 pg 26.7-34.0 [facility] MCHC Auto (RBC) [Mass/Vol]on 01-19-2024 MCHC (RBC) [Mass/Vol] 36.1 g/dL High 29.9-35.2 [facility] MCV Auto (RBC) [Entitic vol] on 01-19-2024 MCV (RBC) [Entitic vol] 84.1 fL 81.0-99.0 [facility] Monocytes Auto (Bld) [#/Vol] on 01-19-2024 Monocytes (Bld) [#/Vol] 0.6 10 3/uL 0.3-0.8 [facility] Monocytes/100 WBC Auto (Bld) on 01-19-2024 Monocytes/100 WBC (Bld) 11.6 % 1.7-12.0 [facility] Neutrophils Auto (Bld) [#/Vo l]on 01-19-2024 Neutrophils (Bld) [#/Vol] 3.0 10 3/uL 1.4-6.5 [facility] Neutrophils/100 WBC Auto (Bl d)on 01-19-2024 Neutrophils/100 WBC (Bld) 61.9 % 43.0-75.0 [facility] No Panel Informationon 01-18 Eosinophils # (Auto) 0.1 10 3/uL 0.0-0.7 [facility] Human Chorionic Gonadotropin, Qual Negative NEGATIVE [facility] Immature Granulocyte # (Auto) 0.00 10 3/uL 0.00-0.03 [facility] Platelet mean volume Auto (B ld) [Entitic vol]on 01-19-2024 Platelet mean volume (Bld) [Entitic vol] 11.2 fL 9.5-13.5 [facility] Platelets Auto (Bld) [#/Vol] on 01-19-2024 Platelets (Bld) [#/Vol] 137 10 3/uL Low 150-450 [facility] RBC Auto (Bld) [#/Vol]on RBC (Bld) [#/Vol] 4.71 10 6/uL 4.20-5.40 [facility] Serum or plasma anion gap de terminationon 01-19-2024 Anion gap [Moles/Vol] 10.8 mmol/L [facility] Choriogonadotropin.beta subu nit ( test) [Presence] in Urineon 01-03-2024 Beta HCG ( test) Ql (U) Negative [facility] Influenza virus A and B and SARS-CoV-2 (COVID-19) RNA panel - Respiratory system specon 01-03-2024 Influenza virus A and B RNA and SARS-CoV-2 (COVID-19) N gene panel ELDON+probe (Resp) Negative [facility] Laboratory - Microbiology an d Antimicrobial susceptibilityon 01-03-2024 SARS-CoV-2 (COVID-19) RNA ELDON+probe Ql (Unsp spec) Negative [facility] No Panel Informationon 01-02 POC Influenza B (ELDON) Negative [facility] No Panel InformationOrdered By: Evelyn Vu on 01-03-2024 Quick Strep (POC) [facility] Quick Strepon 10-02-2022 S. pyogenes Org specific cx Ql (Throat) Negative [employer] Other Quick Strep [employer] Other COVID19(IDNOW)on 11-30-2019 COVID19(IDNOW) NOT DETECTED Normal NOT DETECTED [facility] Comment on above: Result Comment: Nega tive results do not preclude SARS-CoV-2 infection and should not be used as the sole basis for treatiment or other patient management. ENHANCED CONTACT, AND DROPLET ISOLATION IS REQUIRED FOR INPATIENTS WITH SARS-CoV-2. Performed By: #### C OVID19(IDNOW) #### [facility] [address] [place] [address] Age at specimen collection = Normal [facility] Comment on above: Performed By: #### C OVID19(IDNOW) #### [facility] [address] [place] [address] Hematologyon 05-11-2019 Basophils (Bld) [#/Vol] 0.0 10*3/uL 0.0-0.1 [facility] Basophils/100 WBC (Bld) 0.40 % 0.0-1.0 [facility] Eosinophils (Bld) [#/Vol] 0.10 10*3/uL 0.0-0.5 [facility] Eosinophils/100 WBC (Bld) 1.30 % 0.0-7.0 [facility] Hematocrit (Bld) [Volume fraction] 41.30 % 35.7-47.1 [facility] Hemoglobin (Bld) [Mass/Vol] 14.10 g/dL 11.9-15.7 [facility] Lymphocytes (Bld) [#/Vol] 2.20 10*3/uL 0.9-3.1 [facility] Lymphocytes/100 WBC (Bld) 29.30 % 15.0-46.0 [facility] MCH (RBC) [Entitic mass] 29.90 pg 23.2-33.3 [facility] MCV (RBC) [Entitic vol] 87.50 fL 83.4-101.4 [facility] Monocytes (Bld) [#/Vol] 0.60 10*3/uL 0.3-1.0 [facility] Monocytes/100 WBC (Bld) 8.60 % 4.0-12.0 [facility] Neutrophils (Bld) [#/Vol] 4.50 10*3/uL 1.8-7.9 [facility] Neutrophils/100 WBC (Bld) 60.0 % 43.0-76.0 [facility] Platelets (Bld) [#/Vol] 160.0 10*3/uL 150-400 [facility] RBC (Bld) [#/Vol] 4.720 10*6/uL 3.72-5.24 [facility] WBC (Bld) [#/Vol] 7.40 10*3/uL 3.9-10.3 [facility] Otheron 05-11-2019 Erythrocyte distribution width (RBC) [Ratio] 12.10 % 11.5-15.5 [facility] Immature granulocytes (Bld) [#/Vol] 0.030 10*3/uL 0.00-0.06 [facility] Immature granulocytes/100 WBC (Bld) 0.40 % 0.0-0.5 [facility] MCHC (RBC) [Mass/Vol] 34.10 g/dL 32.0-36.0 [facility] Platelet mean volume (Bld) [Entitic vol] 11.10 fL 8.3-11.5 [employer] COMMENT [employer] <9.0 0.0-8.9 [employer] 303.0 0.0-17.9 [employer] <36.0 0.0-35.9 [facility] 38.9 0.0-17.9 [employer] Thyroidon 05-11-2019 TSH Qn 1.96 m[IU]/L 0.50-4.00 [employer] Basic Metabolic Profon 04-20 (cont.) Normal [facility] Comment on above: Result Comment: Aver age GFR for 20-29 years old: 116 mL/min/1.73sq mChronic Kidney Disease: <60 mL/min/1.73sq mKidney failure: <15 mL/min/1.73sq meGFR calculated using average adult body mass. Additional eGFR calculator available at:http://www.[employer]/multiple_crcl_2011.htm Performed By: #### B MP, CBC ####[address] [place] [phone] Anion gap 3 molar conc 11 mmol/L Normal - [facility] Comment on above: Performed By: #### B MP, CBC ####[address] [place] [address] BUN/CRE Ratio 18 Normal - [facility] Comment on above: Performed By: #### B MP, CBC ####[address] [place] [address] Calcium mass conc 9.2 mg/dL Normal 8.6-10.4 [facility] Comment on above: Performed By: #### B MP, CBC ####[address] [place] [address] Chloride molar conc 102 mmol/L Normal 98-107 [facility] Comment on above: Performed By: #### B MP, CBC ####[address] [place] [address] CO2 molar conc 26 mmol/L Normal 20-31 [facility] Comment on above: Performed By: #### B MP, CBC ####[address] [place] [address] Creatinine mass conc 0.65 mg/dL Normal 0.50-0.90 [facility] Comment on above: Performed By: #### B MP, CBC ####[address] [place] [address] GFR, Amer >60 Normal >60 [facility] Comment on above: Performed By: #### B MP, CBC ####[address] [place] [address] GFR,non Amer >60 Normal >60 [facility] Comment on above: Performed By: #### B MP, CBC ####[address] [place] [address] Glucose mass conc 89 mg/dL Normal 70-99 [facility] Comment on above: Performed By: #### B MP, CBC ####[address] [place] [address] Potassium molar conc 3.8 mmol/L Normal 3.7-5.3 [facility] Comment on above: Performed By: #### B MP, CBC ####[address] [place] [address] Sodium molar conc 139 mmol/L Normal 135-144 [facility] Comment on above: Performed By: #### B MP, CBC ####[address] [place] [address] Staging: Normal [facility] Comment on above: Result Comment: Stag e 1: Some kidney damage normal GFRStage 2: Mild kidney damage GFR 60-89Stage 3: Moderate kidney damage GFR 30-59Stage 4: Severe kidney damage GFR 15-29Stage 5: Severe kidney damage GFR <15ESRD - chronic treatment by dialysis or transplant Performed By: #### B MP, CBC ####[address] [place] [address] Urea nitrogen mass conc 12 mg/dL Normal 6-20 [facility] Comment on above: Performed By: #### B MP, CBC ####[address] [place] [address] CBCon 04-20-2018 Erythrocyte distribution width Auto Ratio (RBC) 12.1 % Normal 11.8-14.4 [facility] Comment on above: Performed By: #### B MP, CBC ####[address] [place] [address] Hematocrit Auto Volume Fraction (Bld) 42.6 % Normal 36.3-47.1 [facility] Comment on above: Performed By: #### B MP, CBC ####[address] [place] [address] Hemoglobin mass conc (Bld) 14.7 g/dL Normal 11.9-15.1 [facility] Comment on above: Performed By: #### B MP, CBC ####[address] [place] [address] MCH Auto Entitic mass (RBC) 30.2 pg Normal 25.2-33.5 [facility] Comment on above: Performed By: #### B MP, CBC ####[address] [place] [address] MCHC Auto mass conc (RBC) 34.5 g/dL Normal 28.4-34.8 [facility] Comment on above: Performed By: #### B MP, CBC ####[address] [place] [address] MCV Auto Entitic volume (RBC) 87.7 fL Normal 82.6-102.9 [facility] Comment on above: Performed By: #### B MP, CBC ####[address] [place] [address] NRBC Automated 0.0 per 100 WBC Normal 0.0 [facility] Comment on above: Performed By: #### B MP, CBC ####[address] [place] [address] Platelet mean volume Auto Entitic volume (Bld) 10.8 fL Normal 8.1-13.5 [facility] Comment on above: Performed By: #### B MP, CBC ####[address] [place] [address] Platelets Auto #/vol (Bld) 142 10*3/uL Normal 138-453 [facility] Comment on above: Performed By: #### B MP, CBC ####[address] [place] [address] RBC Auto #/vol (Bld) 4.86 10*6/uL Normal 3.95-5.11 [facility] Comment on above: Performed By: #### B MP, CBC ####[address] [place] [address] WBC Auto #/vol (Bld) 6.2 10*3/uL Normal 4.5-13.5 [facility] Comment on above: Performed By: #### B MP, CBC ####[address] [place] [address] HCG, ,Urineon 04-20 HCG.beta subunit ( test) Ql (U) Negative Normal NEG [facility] Comment on above: Result Comment: Spec imens with hCG levels near the threshold of the test (25 mIU/mL) may give a negative or indeterminate result. In such cases, another test should be performed with a new specimen in 48-72 hours. If early is suspected clinically in this setting, correlation with quantitative serum b-hCG level is suggested.[facility] has confirmed the use of plasma for this test. This has not been cleared or approved by the U.S. Food and Drug Administration. The FDA has determined that such clearance is not necessary. Performed By: #### U HCG ####[address] [place] [address] UA w/Reflex Cultureon 2017 Acetoacetic Acid,Ur Negative Normal NEG [facility] Comment on above: Performed By: #### U AX UMICAO ####[address] [place] [address] Bilirubin, SemiQt,Ur Negative Normal NEG [facility] Comment on above: Performed By: #### U AX UMICAO ####[address] [place] [address] Color YELLOW Normal YEL [facility] Comment on above: Performed By: #### U AX UMICAO ####[address] [place] [address] Glucose,Semi-qnt,Ur Negative Normal [facility] Comment on above: Performed By: #### U AX UMICAO ####[address] [place] [address] Hemoglobin, Ur Negative Normal NEG [facility] Comment on above: Performed By: #### U AX UMICAO ####[address] [place] [address] Leuckocyte Esterase Negative Normal [facility] Comment on above: Performed By: #### U AX, UMICAO ####[address] [place] [address] Nitrite,Ur Negative Normal NEG [facility] Comment on above: Performed By: #### U AX, UMICAO ####[address] [place] [address] PH,Ur 6.0 Normal 5.0-9.0 [facility] Comment on above: Performed By: #### U AX, UMICAO ####[address] [place] [address] Protein, Semi-qnt,Ur Negative Normal NEG [facility] Comment on above: Performed By: #### U AX, UMICAO ####[address] [place] [address] Spec. [place],Ur 1.025 High 1.010-1.020 [facility] Comment on above: Performed By: #### U AX, UMICAO ####[address] [place] [address] Turbidity CLEAR Normal CLEAR [facility] Comment on above: Performed By: #### U AX, UMICAO ####[address] [place] [address] Urobilinogen,Ur Normal Normal NORM [facility] Comment on above: Performed By: #### U AX, UMICAO ####[address] [place] [address] Comment NOT REPORTED Normal [facility] Comment on above: Performed By: #### U AX, UMICAO ####[address] [place] [address] Urinalysis,Microon 8 ----- Normal [facility] Comment on above: Performed By: #### U AX, UMICAO ####[address] [place] [address] Bacteria 1+ Abnormal NONE [facility] Comment on above: Performed By: #### U AX, UMICAO ####[address] [place] [address] Epithelial cells 2 TO 5 Normal 0-25 [facility] Comment on above: Performed By: #### U AX, UMICAO ####[address] [place] [address] RBC Test strip #/vol (U) None Normal 0-2 [facility] Comment on above: Performed By: #### U AX, UMICAO ####[address] [place] [address] Urine WBC's 0 TO 2 Normal 0-5 [facility] Comment on above: Performed By: #### U AX, UMICAO ####[address] [place] [address] Amorphous Sediment NOT REPORTED Normal NONE [facility] Comment on above: Performed By: #### U AX, UMICAO ####[address] [place] [address] Casts NOT REPORTED Normal [facility] Comment on above: Performed By: #### U AX, UMICAO ####[address] [place] [address] Crystals NOT REPORTED Normal NONE [facility] Comment on above: Performed By: #### U AX, UMICAO ####[address] [place] [address] Epithelial, Renal NOT REPORTED Normal 0 [facility] Comment on above: Performed By: #### U AX, UMICAO ####[address] [place] [address] Mucus Strands NOT REPORTED Normal NONE [facility] Comment on above: Performed By: #### U AX, UMICAO ####[address] [place] [address] Other Observations NOT REPORTED Normal NREQ [facility] Comment on above: Performed By: #### U AX, UMICAO ####[facility] [place] , [place] [id number] Trichomonas NOT REPORTED Normal NONE [facility] Comment on above: Performed By: #### U AX, UMICAO ####[facility] [place] [address] Yeast NOT REPORTED Normal NONE [facility] Comment on above: Performed By: #### U AX, UMICAO ####[facility] [place] [address] XR LUMBAR SPINE (2-3 VIEWS)o n [...] by:RIVER Jassoigned by:Phil Messer MD04/20/inal result Normal [facility] Otheron 03-08-2018 Negative [facility] Otheron 02-03-2018 Negative [facility] Otheron 01-30-2018 Negative [facility] 12-28-2017 Cholesterol [Mass/Vol] 156.0 mg/dL 0-200 [facility] Cholesterol in HDL [Mass/Vol] 54.0 mg/dL 50-100 [facility] Cholesterol in LDL [Mass/Vol] 79.0 mg/dL 0-130 [facility] Triglyceride [Mass/Vol] 116.0 mg/dL 30-150 [employer] Metabolic Panelon 12-28-2017 Albumin [Mass/Vol] 4.70 g/dL 3.7-4.5 [employer] ALP [Catalytic activity/Vol] 83.0 U/L 31-155 [employer] ALT [Catalytic activity/Vol] 15.0 U/L 0-50 [employer] AST [Catalytic activity/Vol] 19.0 U/L 0-40 [employer] Bilirubin [Mass/Vol] 0.70 mg/dL 0.0-1.0 [facility] Protein [Mass/Vol] 7.80 g/dL 6.3-7.9 [employer] Otheron 12-28-2017 Albumin/Globulin [Mass ratio] 1.5 {ratio} 1.0-2.4 [employer] Cholesterol in VLDL [Mass/Vol] 23.0 mg/dL 0-39 [employer] Cholesterol.total/Cho lesterol in HDL [Mass ratio] 3 {ratio} [facility] Negative [employer] CBCon 07-28-2017 Erythrocyte distribution width Auto Ratio (RBC) 11.8 % Normal 11.8-14.4 [facility] Comment on above: Performed By: #### C BC, CP ####[address] [place] [address] Hematocrit Auto Volume Fraction (Bld) 41.2 % Normal 36.3-47.1 [facility] Comment on above: Performed By: #### C BC, CP ####[address] [place] [address] Hemoglobin mass conc (Bld) 14.1 g/dL Normal 11.9-15.1 [facility] Comment on above: Performed By: #### C BC, CP ####[address] [place] [address] MCH Auto Entitic mass (RBC) 28.5 pg Normal 25.2-33.5 [facility] Comment on above: Performed By: #### C BC, CP ####[address] [place] [address] MCHC Auto mass conc (RBC) 34.2 g/dL Normal 28.4-34.8 [facility] Comment on above: Performed By: #### C BC, CP ####[address] [place] [address] MCV Auto Entitic volume (RBC) 83.2 fL Normal 82.6-102.9 [facility] Comment on above: Performed By: #### C BC, CP ####[address] [place] [address] NRBC Automated 0.0 per 100 WBC Normal 0.0 [facility] Comment on above: Result Comment: Perf ormed at [address] [place] [address] Performed By: #### C BC, CP ####[address] [place] [address] Platelet mean volume Auto Entitic volume (Bld) 9.9 fL Normal 8.1-13.5 [facility] Comment on above: Performed By: #### C BC, CP ####[address] [place] [address] Platelets Auto #/vol (Bld) 230 10*3/uL Normal 138-453 [facility] Comment on above: Performed By: #### C BC, CP ####[address] [place] [address] RBC Auto #/vol (Bld) 4.95 10*6/uL Normal 3.95-5.11 [facility] Comment on above: Performed By: #### C BC, CP ####[address] [place] [address] WBC Auto #/vol (Bld) 11.8 10*3/uL Normal 4.5-13.5 [facility] Comment on above: Performed By: #### C BC, CP ####[address] [place] [address] Comp Metabolic Profon 2017 (cont.) Normal [facility] Comment on above: Result Comment: Aver age GFR for 20-29 years old: 116 mL/min/1.73sq mChronic Kidney Disease: <60 mL/min/1.73sq mKidney failure: <15 mL/min/1.73sq meGFR calculated using average adult body mass. Additional eGFR calculator available at:http://www.[employer]/multiple_crcl_2012.htm Performed By: #### C BC, CP ####[address] [place] [address] Albumin mass conc 4.5 g/dL Normal 3.5-5.2 [facility] Comment on above: Performed By: #### C BC, CP ####[address] [place] [address] Albumin/Globulin mass ratio 1.3 {ratio} Normal 1.0-2.5 [facility] Comment on above: Performed By: #### C BC, CP ####[address] [place] [address] Alkaline Phos 81 U/L Normal 35-[address] [facility] Comment on above: Performed By: #### C BC, CP ####[address] [place] [address] ALT enzyme act/vol 23 U/L Normal 5-33 [facility] Comment on above: Performed By: #### C BC, CP ####[address] [place] [address] Anion gap 3 molar conc 13 mmol/L Normal 9-17 [facility] Comment on above: Performed By: #### C BC, CP ####[address] [place] [address] AST enzyme act/vol 23 U/L Normal <32 [facility] Comment on above: Performed By: #### C BC, CP ####[address] [place] [address] Bilirubin Ql (U) 0.23 mg/dL Low 0.3-1.2 [facility] Comment on above: Performed By: #### C BC, CP ####[address] [place] [address] BUN/CRE Ratio 17 Normal 9-[address] [facility] Comment on above: Performed By: #### C BC, CP ####[address] [place] [address] Calcium mass conc 9.5 mg/dL Normal 8.6-10.4 [facility] Comment on above: Performed By: #### C BC, CP ####[address] [place] [address] Chloride molar conc 101 mmol/L Normal 98-107 [facility] Comment on above: Performed By: #### C BC, CP ####[address] [place] [address] CO2 molar conc 23 mmol/L Normal 20-31 [facility] Comment on above: Performed By: #### C BC, CP ####[address] [place] [address] Creatinine mass conc 0.69 mg/dL Normal 0.50-0.90 [facility] Comment on above: Performed By: #### C BC, CP ####[address] [place] [address] GFR, Amer >60 Normal >60 [facility] Comment on above: Performed By: #### C BC, CP ####[address] [place] [address] GFR,non Amer >60 Normal >60 [facility] Comment on above: Performed By: #### C BC, CP ####[address] [place] [address] Glucose mass conc 99 mg/dL Normal 70-99 [facility] Comment on above: Performed By: #### C BC, CP ####[address] [place] [address] Potassium molar conc 3.8 mmol/L Normal 3.7-5.3 [facility] Comment on above: Performed By: #### C BC, CP ####[address] [place] [address] Protein mass conc 8.0 g/dL Normal 6.4-8.3 [facility] Comment on above: Performed By: #### C BC, CP ####[address] [place] [address] Sodium molar conc 137 mmol/L Normal 135-144 [facility] Comment on above: Performed By: #### C BC, CP ####[address] [place] [address] Staging: Normal [facility] Comment on above: Result Comment: Stag e 1: Some kidney damage normal GFRStage 2: Mild kidney damage GFR 60-89Stage 3: Moderate kidney damage GFR 30-59Stage 4: Severe kidney damage GFR 15-29Stage 5: Severe kidney damage GFR <15ESRD - chronic treatment by dialysis or transplantPerformed at [address] [place] [address] Performed By: #### C BC, CP ####[address] , [place] [id number] Urea nitrogen mass conc 12 mg/dL Normal 6-20 [facility] Comment on above: Performed By: #### C BC, CP ####[address] , [place] [id number] HCG, ,Urineon 07-28 HCG.beta subunit ( test) Ql (U) Negative Normal NEG [facility] Comment on above: Result Comment: Spec imens with hCG levels near the threshold of the test (25 mIU/mL) may give a negative or indeterminate result. In such cases, another test should be performed with a new specimen in 48-72 hours. If early is suspected clinically in this setting, correlation with quantitative serum b-hCG level is suggested.[facility] has confirmed the use of plasma for this test. This has not been cleared or approved by the U.S. Food and Drug Administration. The FDA has determined that such clearance is not necessary.Performed at [address] [place] [address] Performed By: #### U HCG, UA ####[address] , [place] [address] Urinalysis, Routineon 2017 Acetoacetic Acid,Ur Negative Normal NEG [facility] Comment on above: Performed By: #### U HCG, UA ####[address] [place] [address] Bilirubin, SemiQt,Ur Negative Normal NEG [facility] Comment on above: Performed By: #### U HCG, UA ####[address] [place] [address] Color YELLOW Normal YEL [facility] Comment on above: Performed By: #### U HCG, UA ####[address] [place] [address] Glucose,Semi-qnt,Ur Negative Normal NEG [facility] Comment on above: Performed By: #### U HCG, UA ####[address] [place] [address] Hemoglobin, Ur Negative Normal NEG [facility] Comment on above: Performed By: #### U HCG, UA ####[address] [place] [address] Leuckocyte Esterase Negative Normal NEG [facility] Comment on above: Result Comment: Perf ormed at [address] [place] [address] Performed By: #### U HCG, UA ####[address] [place] [address] Nitrite,Ur Negative Normal NEG [facility] Comment on above: Performed By: #### U HCG, UA ####[address] [place] [address] PH,Ur 6.0 Normal 5.0-9.0 [facility] Comment on above: Performed By: #### U HCG, UA ####[address] [place] [address] Protein mass conc Negative Normal NEG [facility] Comment on above: Performed By: #### U HCG, UA ####[address] [place] [address] Spec. [place],Ur 1.025 High 1.010-1.020 [facility] Comment on above: Performed By: #### U HCG, UA ####[address] [place] [address] Turbidity CLEAR Normal CLEAR [facility] Comment on above: Performed By: #### U HCG, UA ####[facility] [place] [address] Urobilinogen,Ur Normal Normal NORM [facility] Comment on above: Performed By: #### U HCG, UA ####[facility] [place] [address] Comment NOT REPORTED Normal [facility] Comment on above: Performed By: #### U HCG, UA ####[address] [place] [address] [facility] 2927 Cholesterol mass conc 175.0 mg/dL 0-200 [employer] Triglyceride mass conc 58.0 mg/dL 30-150 [facility] Hematologyon 06-07-2016 Basophils #/vol (Bld) 0.0 10*3/uL 0.0-0.1 [employer] Basophils/100 WBC (Bld) 0.30 % 0.0-1.0 [facility] Eosinophils #/vol (Bld) 0.10 10*3/uL 0.0-0.5 [facility] Eosinophils/100 WBC (Bld) 1.80 % 0.0-7.0 [facility] Hematocrit Volume Fraction (Bld) 40.50 % 35.7-47.1 [facility] Hemoglobin mass conc (Bld) 13.60 g/dL 11.9-15.7 [facility] Lymphocytes #/vol (Bld) 3.40 10*3/uL 0.9-3.1 [facility] Lymphocytes/100 WBC (Bld) 41.0 % 28.0-42.0 [facility] [employer] MCH Entitic mass (RBC) 29.60 pg 23.2-33.3 [facility] [employer] MCV Entitic volume (RBC) 88.40 fL 82.0-98.4 [facility] [employer] Monocytes #/vol (Bld) 0.60 10*3/uL 0.3-1.0 B [facility] [employer] Monocytes/100 WBC (Bld) 7.40 % 4.0-12.0 [facility] [employer] Neutrophils #/vol (Bld) 4.20 10*3/uL 1.8-7.9 [facility] Neutrophils/100 WBC (Bld) 49.50 % 45.6-68.4 [facility] Platelets #/vol (Bld) 225.0 10*3/uL 150-400 [facility] RBC #/vol (Bld) 4.580 10*6/uL 3.72-5.24 [facility] WBC #/vol (Bld) 8.30 10*3/uL 3.9-10.3 [facility] Metabolic Panelon 06-07-2016 Albumin mass conc 4.40 g/dL 3.7-4.5 [facility] ALP enzyme act/vol 77.0 U/L 31-155 [facility] [employer] ALT enzyme act/vol 17.0 U/L 0-50 [facility] AST enzyme act/vol 21.0 U/L 0-40 [facility] Bilirubin mass conc 0.40 mg/dL 0.0-1.0 [facility] [employer] Protein mass conc 7.40 g/dL 6.3-7.9 [facility] [employer] Otheron 06-07-2016 Albumin/Globulin mass ratio 1.5 {ratio} 1.0-2.4 [facility] [employer] Erythrocyte distribution width Ratio (RBC) 11.80 % 11.5-15.5 [facility] [employer] MCHC mass conc (RBC) 33.50 g/dL 32.0-36.0 [facility] [employer] Platelet mean volume Entitic volume (Bld) 9.0 fL 7.4-10.4 [facility] [employer] Negative [facility] [employer] Otheron 04-23-2016 Negative [employer] Otheron 03-19-2016 Negative [facility] [employer] [facility]acon 02-12-2016 Cholesterol mass conc 175.0 mg/dL 0-200 Bl [facility] [employer] Triglyceride mass conc 59.0 mg/dL 30-150 [facility] [employer] Hematologyon 02-12-2016 Basophils #/vol (Bld) 0.10 10*3/uL 0.0-0.1 B [facility] [employer] Basophils/100 WBC (Bld) 0.90 % 0.0-1.0 [facility] [employer] Eosinophils #/vol (Bld) 0.10 10*3/uL 0.0-0.5 [facility] [employer] Eosinophils/100 WBC (Bld) 1.70 % 0.0-7.0 [facility] Hematocrit Volume Fraction (Bld) 41.60 % 35.7-47.1 [facility] Hemoglobin mass conc (Bld) 14.0 g/dL 11.9-15.7 [facility] Lymphocytes #/vol (Bld) 2.30 10*3/uL 0.9-3.1 [facility] Lymphocytes/100 WBC (Bld) 36.10 % 28.0-42.0 [facility] MCH Entitic mass (RBC) 29.40 pg 23.2-33.3 [facility] MCV Entitic volume (RBC) 87.60 fL 82.0-98.4 [facility] Monocytes #/vol (Bld) 0.50 10*3/uL 0.3-1.0 B [facility] Monocytes/100 WBC (Bld) 7.20 % 4.0-12.0 [facility] Neutrophils #/vol (Bld) 3.30 10*3/uL 1.8-7.9 [facility] Neutrophils/100 WBC (Bld) 54.10 % 45.6-68.4 [facility] Platelets #/vol (Bld) 180.0 10*3/uL 150-400 [facility] RBC #/vol (Bld) 4.750 10*6/uL 3.72-5.24 [facility] WBC #/vol (Bld) 6.30 10*3/uL 3.9-10.3 [facility] Metabolic Panelon 02-12-2016 Albumin mass conc 4.50 g/dL 3.7-4.5 [facility] [employer] ALP enzyme act/vol 79.0 U/L 31-155 [facility] [employer] ALT enzyme act/vol 21.0 U/L 0-50 [facility] [employer] AST enzyme act/vol 22.0 U/L 0-40 [facility] [employer] Bilirubin mass conc 0.40 mg/dL 0.0-1.[address] [facility] [employer] Protein mass conc 7.0 g/dL 6.3-7.9 [facility] [employer] Otheron 02-12-2016 Albumin/Globulin mass ratio 1.8 {ratio} 1.0-2.4 [facility] [employer] Erythrocyte distribution width Ratio (RBC) 12.10 % 11.5-15.5 [facility] [employer] MCHC mass conc (RBC) 33.60 g/dL 32.0-36.0 [facility] [employer] Platelet mean volume Entitic volume (Bld) 9.70 fL 7.4-10.4 [facility] [employer] Negative [facility] [employer] Vital Signs Date Time Vital Sign Value Performing Clinician Facility 10-29-2024 08:31-0400 Body mass index (BMI) [Ratio] 27.85 kg/m2 Eleazar Vijaya [employer] Work Phone: [facility] 10-29-2024 08:31-0400 Body weight 66.86 kg [facility] Work Phone: [facility] 10-29-2024 08:31-0400 Diastolic blood pressure 74 mm[Hg] Eleazar Vijaya DO Work Phone: [facility] 10-29-2024 08:31-0400 Systolic blood pressure 120 mm[Hg] Eleazar Vijaya DO Work Phone: [facility] 10-23-2024 09:06-0400 Body mass index (BMI) [Ratio] 27.59 kg/m2 Eleazar Vijaya DO Work Phone: [facility] 10-23-2024 09:06-0400 Body weight 66.22 kg Eleazar Vijaya DO Work Phone: [facility] 10-23-2024 09:06-0400 Diastolic blood pressure 78 mm[Hg] Eleazar Vijaya DO Work Phone: [facility] 10-23-2024 09:06-0400 Systolic blood pressure 124 mm[Hg] Eleazar Vijaya DO Work Phone: [facility] 10-16-2024 10:46-0400 Body mass index (BMI) [Ratio] 27.21 kg/m2 Eleazar Vijaya DO Work Phone: [facility] 10-16-2024 10:46-0400 Body weight 65.32 kg Eleazar Vijaya DO Work Phone: [facility] 10-16-2024 10:46-0400 Diastolic blood pressure 64 mm[Hg] Eleazar Vijaya DO Work Phone: [facility] 10-16-2024 10:46-0400 Systolic blood pressure 108 mm[Hg] Eleaazr Vijaya DO Work Phone: [facility] 10-02-2024 09:28-0400 Body mass index (BMI) [Ratio] 26.79 kg/m2 Cheryl MARIE Work Phone: [facility] 10-02-2024 09:28-0400 Body weight 64.32 kg Cheryl MARIE Work Phone: [facility] 10-02-2024 09:28-0400 Diastolic blood pressure 64 mm[Hg] Cheryl MARIE Work Phone: [facility] 10-02-2024 09:28-0400 Systolic blood pressure 102 mm[Hg] Cheryl MARIE Work Phone: [facility] 09-13-2024 11:01-0400 Body mass index (BMI) [Ratio] 26.07 kg/m2 Eleazar Vijaya DO Work Phone: [facility] 09-13-2024 11:01-0400 Body weight 62.6 kg Eleazar Vijaya DO Work Phone: [facility] 09-13-2024 11:01-0400 Diastolic blood pressure 56 mm[Hg] Eleazar Vijaya DO Work Phone: [facility] 09-13-2024 11:01-0400 Systolic blood pressure 100 mm[Hg] Eleazar Vijaya DO Work Phone: [facility] 08-20-2024 09:57-0400 Body mass index (BMI) [Ratio] 25.32 kg/m2 Eleazar Vijaya DO Work Phone: [facility] 08-20-2024 09:57-0400 Body weight 60.78 kg Eleazar Vijaya DO Work Phone: [facility] 08-20-2024 09:57-0400 Diastolic blood pressure 70 mm[Hg] Eleazar Vijaya DO Work Phone: [facility] 08-20-2024 09:57-0400 Systolic blood pressure 110 mm[Hg] Eleazar Vijaya DO Work Phone: [facility] 07-23-2024 09:44-0400 Body mass index (BMI) [Ratio] 24.53 kg/m2 Cheryl MARIE Work Phone: [facility] 07-23-2024 09:44-0400 Body weight 58.88 kg Cheryl MARIE Work Phone: [facility] 07-23-2024 09:44-0400 Diastolic blood pressure 66 mm[Hg] Cheryl MARIE Work Phone: [facility] 07-23-2024 09:44-0400 Systolic blood pressure 102 mm[Hg] Cheryl Baugh PA Work Phone: [facility] 06-26-2024 08:38-0500 Body mass index (BMI) [Ratio] 23.96 kg/m2 Eleazar Vijaya DO Work Phone: [facility] 06-26-2024 08:38-0500 Body weight 57.52 kg Eleazar Vijaya DO Work Phone: [facility] 06-26-2024 08:38-0500 Diastolic blood pressure 58 mm[Hg] Eleazar Vijaya DO Work Phone: [facility] 06-26-2024 08:38-0500 Systolic blood pressure 100 mm[Hg] Eleazar Vijaya DO Work Phone: [facility] 05-28-2024 13:28-0500 Body mass index (BMI) [Ratio] 22.58 kg/m2 Cheryl MARIE Work Phone: [facility] 05-28-2024 13:28-0500 Body weight 54.2 kg Cheryl Baugh PA Work Phone: [facility] 05-28-2024 13:28-0500 Diastolic blood pressure 60 mm[Hg] Cheryl Baugh PA Work Phone: [facility] 05-28-2024 13:28-0500 Systolic blood pressure 102 mm[Hg] Cheryl MARIE Work Phone: [facility] 05-18-2024 10:28-0500 Body height 154.94 cm [facility] 05-18-2024 10:28-0500 Body mass index (BMI) [Ratio] 21.8 kg/m2 [facility] 05-18-2024 10:28-0500 Body temperature 98 [degF] [facility] 05-18-2024 10:28-0500 Body weight 52.33 kg [facility] 05-18-2024 10:28-0500 Diastolic blood pressure 66 mm[Hg] [facility] 05-18-2024 10:28-0500 Heart rate 89 /min [facility] 05-18-2024 10:28-0500 SaO2% (BldA) [Mass fraction] 99 % [facility] 05-18-2024 10:28-050 Systolic blood pressure 104 mm[Hg] [facility] 04-30-2024 10:13-0500 Body mass index (BMI) [Ratio] 21.73 kg/m2 Eleazar Vijaya DO Work Phone: [facility] 04-30-2024 10:13-050 Body weight 52.16 kg Eleazar Vijaya DO Work Phone: [facility] 04-30-2024 10:13-0500 Diastolic blood pressure 64 mm[Hg] Eleazar Vijaya DO Work Phone: [facility] 04-30-2024 10:13-0500 Systolic blood pressure 106 mm[Hg] Eleazar Vijaya DO Work Phone: [facility] 03-23-2024 10:10-0500 Body mass index (BMI) [Ratio] 20.86 kg/m2 [facility] 03-23-2024 10:10-0500 Body weight 50.08 kg [facility] Nurse [facility] 03-23-2024 10:10-0500 Diastolic blood pressure 60 mm[Hg] [facility] Nurse [facility] 03-23-2024 10:10-0500 Systolic blood pressure 110 mm[Hg] [facility] Nurse [facility] 03-14-2024 13:53-0500 Body mass index (BMI) [Ratio] 20.6 kg/m2 Eleazar Vijaya DO Work Phone: [facility] 03-14-2024 13:53-0500 Body weight 49.44 kg Eleazar Vijaya DO Work Phone: [facility] 03-14-2024 13:53-0500 Diastolic blood pressure 72 mm[Hg] Eleazar Vijaya DO Work Phone: [facility] 03-14-2024 13:53-0500 Systolic blood pressure 110 mm[Hg] Eleazar Vijaya DO Work Phone: [facility] 02-08-2024 13:21-0400 Body height 154.9 cm Eleazar Vijaya DO Work Phone: [facility] 02-08-2024 13:21-0400 Body mass index (BMI) [Ratio] 23.05 kg/m2 Eleazar Vijaya DO Work Phone: [facility] 02-08-2024 13:21-0400 Body weight 55.34 kg Eleazar Vijaya DO Work Phone: [facility] 02-08-2024 13:21-0400 Diastolic blood pressure 64 mm[Hg] Eleazar Vijaya DO Work Phone: [facility] 02-08-2024 13:21-0400 Systolic blood pressure 102 mm[Hg] Eleazar Vijaya DO Work Phone: [facility] 02-02-2024 12:39-0400 Body height 154.94 cm [facility] 02-02-2024 12:39-0400 Body mass index (BMI) [Ratio] 22.4 kg/m2 [facility] 02-02-2024 12:39-0400 Body temperature 98.3 [degF] [facility] 02-02-2024 12:39-0400 Body weight 54 kg [facility] 02-02-2024 12:39-0400 Diastolic blood pressure 64 mm[Hg] [facility] 02-02-2024 12:39-0400 Heart rate 82 /min [facility] 02-02-2024 12:39-0400 Respiratory rate 16 /min [facility] 02-02-2024 12:39-0400 SaO2% (BldA) [Mass fraction] 98 % [facility] 02-02-2024 12:39-0400 Systolic blood pressure 108 mm[Hg] [facility] 01-24-2024 11:38-0400 Body height 154.94 cm [facility] 01-24-2024 11:38-0400 Body mass index (BMI) [Ratio] 22.6 kg/m2 [facility] 01-24-2024 11:38-0400 Body temperature 96.1 [degF] [facility] 01-24-2024 11:38-0400 Body weight 54.43 kg [facility] 01-24-2024 11:38-0400 Diastolic blood pressure 60 mm[Hg] [facility] 01-24-2024 11:38-0400 Heart rate 75 /min [facility] 01-24-2024 11:38-0400 SaO2% (BldA) [Mass fraction] 98 % [facility] 01-24-2024 11:38-0400 Systolic blood pressure 114 mm[Hg] [facility] 01-03-2024 11:26-0400 Body height 154.94 cm [facility] 01-03-2024 11:26-0400 Body mass index (BMI) [Ratio] 23.2 kg/m2 [facility] 01-03-2024 11:26-0400 Body temperature 97.8 [degF] [facility] 01-03-2024 11:26-0400 Body weight 55.79 kg [facility] 01-03-2024 11:26-0400 Diastolic blood pressure 68 mm[Hg] [facility] 01-03-2024 11:26-0400 Heart rate 90 /min [facility] 01-03-2024 11:26-0400 SaO2% (BldA) [Mass fraction] 98 % [facility] 01-03-2024 11:26-0400 Systolic blood pressure 110 mm[Hg] [facility] 07-21-2023 10:20-0400 Body height 154.94 cm [facility] 07-21-2023 10:20-0400 Body mass index (BMI) [Ratio] 27.8 kg/m2 [facility] 07-21-2023 10:20-0400 Body weight 66.67 kg [facility] 07-21-2023 10:20-0400 Diastolic blood pressure 78 mm[Hg] [facility] 07-21-2023 10:20-0400 Heart rate 61 /min [facility] 07-21-2023 10:20-0400 SaO2% (BldA) [Mass fraction] 99 % [facility] 07-21-2023 10:20-0400 Systolic blood pressure 112 mm[Hg] [facility] 03-26-2023 11:30-0500 Body height 154.94 cm Jodie Portillo Other [employer] Other 03-26-2023 11:30-0500 Body mass index (BMI) [Ratio] 27.96 kg/m2 Jodie Portillo Other [employer] Other 03-26-2023 11:30-0500 Body temperature 98.8 [degF] Jodie Portillo Other [employer] Other 03-26-2023 11:30-0500 Body weight 67.13 kg Jodie Portillo Other [employer] Other 03-26-2023 11:30-0500 Diastolic blood pressure 76 mm[Hg] Jodie Portillo Other [employer] Other 03-26-2023 11:30-0500 Respiratory rate 18 /min Jodie Portillo Other [employer] Other 03-26-2023 11:30-0500 SaO2% (BldA) [Mass fraction] 98 % Jodie Portillo Other [employer] Other 03-26-2023 11:30-0500 Systolic blood pressure 118 mm[Hg] Jodie Portillo Other [employer] Other 10-02-2022 12:25-0400 Body height 154.94 cm Deidra Jimenez Other [employer] Other 10-02-2022 12:25-0400 Body mass index (BMI) [Ratio] 27.43 kg/m2 Deidra Jimenez Other [employer] Other 10-02-2022 12:25-0400 Body temperature 97.7 [degF] Deidra Jimenez Other [employer] Other 10-02-2022 12:25-0400 Body weight 65.86 kg Deidra Jimenez Other [employer] Other 10-02-2022 12:25-0400 Respiratory rate 18 /min Deidra Jimenez Other [employer] Other 10-02-2022 12:25-0400 SaO2% (BldA) [Mass fraction] 97 % Deidra Jimenez Other [employer] Other 05-21-2019 10:42-0500 BMI (Body Mass Index) 23.41 kg/m2 [employer] 05-21-2019 10:42-0500 Body Temperature 98.8 [degF] Lyric Kimhard [facility] [employer] [facility] 05-21-2019 10:42-0500 Body weight 58.06 kg Lyric Pérez [employer] 05-21-2019 10:42-0500 BP Diastolic 68 mm[Hg] Lyric Pérez [employer] 05-21-2019 10:42-0500 BP Systolic 94 mm[Hg] [employer] 05-21-2019 10:42-0500 BSA (Body Surface Area) 1.59 m2 [employer] 05-21-2019 10:42-0500 Height 157.48 cm Lyric Beto Rene [employer] 05-21-2019 10:42-0500 Pulse (Heart Rate) 90 /min Lyric Beto Faustinncjose elias Villarreal [employer] 05-11-2019 14:48-0500 BMI (Body Mass Index) 22.95 kg/m2 Hima Rene [employer] 05-11-2019 14:48-0500 Body Temperature 98.8 [degF] Hima Andrade [employer] 05-11-2019 14:48-0500 Body weight 56.93 kg Hima Clemente [employer] 05-11-2019 14:48-0500 BP Diastolic 66 mm[Hg] Hima Clemente [employer] 05-11-2019 14:48-0500 BP Systolic 110 mm[Hg] Hima Clemente [employer] 05-11-2019 14:48-0500 BSA (Body Surface Area) 1.58 m2 Hima Rene [employer] 05-11-2019 14:48-0500 Height 157.48 cm Hima Clemente [employer] 05-11-2019 14:48-0500 Pulse (Heart Rate) 72 /min Hima Cardoza [facility] [employer] 04-27-2019 15:18-0500 BMI (Body Mass Index) 23.52 kg/m2 Lyric Beto [employer] 04-27-2019 15:18-0500 Body Temperature 98.9 [degF] Lyric KimSharetivityle [employer] 04-27-2019 15:18-0500 Body weight 56.47 kg Lyricchon Pérez [employer] 04-27-2019 15:18-0500 BP Diastolic 60 mm[Hg] Lyric Rene [employer] 04-27-2019 15:18-0500 BP Systolic 112 mm[Hg] Lyric Rene [employer] 04-27-2019 15:18-0500 BSA (Body Surface Area) 1.56 m2 Lyric Pérez [employer] 04-27-2019 15:18-0500 Height 154.94 cm Lyric Pérez [employer] 04-27-2019 15:18-0500 Pulse (Heart Rate) 80 /min Lyricchon rousey [employer] 04-09-2019 13:38-0500 BMI (Body Mass Index) 22.77 kg/m2 Lyric Pérez [employer] 04-09-2019 13:38-0500 Body Temperature 99.4 [degF] Lyric Clemente [employer] 04-09-2019 13:38-0500 Body weight 54.66 kg [employer] 04-09-2019 13:38-0500 BP Diastolic 70 mm[Hg] Lyricchon Pérez [employer] 04-09-2019 13:38-0500 BP Systolic 120 mm[Hg] Lyric Pérez [employer] 04-09-2019 13:38-0500 BSA (Body Surface Area) 1.53 m2 Lyric Pérez [employer] 04-09-2019 13:38-0500 Height 154.94 cm Lyric Pérez [employer] 04-09-2019 13:38-0500 Pulse (Heart Rate) 82 /min Lyric Villarreal [employer] 02-06-2019 16:41-0400 BMI (Body Mass Index) 22.77 kg/m2 Lyric Pérez [employer] 02-06-2019 16:41-0400 Body Temperature 98.8 [degF] Lyric [employer]For[employer] 02-06-2019 16:41-0400 Body weight 54.66 kg Lyric Pérez [employer] 02-06-2019 16:41-0400 BP Diastolic 70 mm[Hg] Lyric Pérez [employer] 02-06-2019 16:41-0400 BP Systolic 112 mm[Hg] Lyric Pérez [employer] 02-06-2019 16:41-0400 BSA (Body Surface Area) 1.53 m2 Lyric Pérez [employer] 02-06-2019 16:41-0400 Height 154.94 cm Lyric Pérez [employer] 02-06-2019 16:41-0400 Pulse (Heart Rate) 72 /min [employer] 10-31-2018 16:58-0400 BMI (Body Mass Index) 23.43 kg/m2 [employer]ima [employer] 10-31-2018 16:58-0400 Body weight 56.25 kg Hima KimForadian 10-31-2018 16:58-0400 BP Diastolic 60 mm[Hg] Himainderjit Silver Rene [employer] 10-31-2018 16:58-0400 BP Systolic 112 mm[Hg] Himainderjit Silver [employer] 10-31-2018 16:58-0400 BSA (Body Surface Area) 1.56 m2 Hima Rene [employer] 10-31-2018 16:58-0400 Height 154.94 cm Hima Clemente [employer] 10-31-2018 16:58-0400 Pulse (Heart Rate) 72 /min Hima Cardoza [employer] 10-31-2018 16:58-0400 Weight 56.25 kg Hima Clemente [employer] 08-28-2018 15:49-0400 BMI (Body Mass Index) 22.67 kg/m2 Hima Rene [employer] 08-28-2018 15:49-0400 Body Temperature 98.7 [degF] Hima Andrade [employer] 08-28-2018 15:49-0400 Body weight 54.43 kg Hima Clemente [employer] 08-28-2018 15:49-0400 BP Diastolic 60 mm[Hg] Hima Camacho [employer] 08-28-2018 15:49-0400 BP Systolic 120 mm[Hg] Hima Clemente [employer] 08-28-2018 15:49-0400 BSA (Body Surface Area) 1.53 m2 Hima Rene [employer] 08-28-2018 15:49-0400 Height 154.94 cm Hima Clemente [employer] 08-28-2018 15:49-0400 Pulse (Heart Rate) 66 /min Hima Cardoza [place] 08-28-2018 15:49-0400 Weight 54.43 kg Hima Clemente [employer] 02-09-2018 12:10-0400 BMI (Body Mass Index) 23.78 kg/m2 Hima Rene [employer] 02-09-2018 12:10-0400 Body Temperature 98.1 [degF] Hima Andrade [employer] 02-09-2018 12:10-0400 Body weight 58.97 kg Hima Clemente [employer] 02-09-2018 12:10-0400 BP Diastolic 80 mm[Hg] Hima Clemente [employer] 02-09-2018 12:10-0400 BP Systolic 104 mm[Hg] Hima Clemente [employer] 02-09-2018 12:10-0400 BSA (Body Surface Area) 1.61 m2 Hima Rene [employer] 02-09-2018 12:10-0400 Height 157.48 cm Hima Clemente [employer] 02-09-2018 12:10-0400 Pulse (Heart Rate) 64 /min Hima ma [employer] 02-09-2018 12:10-0400 Weight 58.97 kg Hima Clemente [employer] 01-11-2018 15:19-0400 BMI (Body Mass Index) 23.32 kg/m2 Hima Rene [employer] 01-11-2018 15:19-0400 Body weight 57.83 kg Hima Clemente [employer] 01-11-2018 15:19-0400 BP Diastolic 68 mm[Hg] Hima Clemente [employer] 01-11-2018 15:19-0400 BP Systolic 106 mm[Hg] Hima Rene [employer] 01-11-2018 15:19-0400 BSA (Body Surface Area) 1.59 m2 Hima Rene [employer] 01-11-2018 15:19-0400 Height 157.48 cm Hima Rene [employer] 01-11-2018 15:19-0400 Pulse (Heart Rate) 76 /min Hima Rene [employer] 01-11-2018 15:19-0400 Weight 57.83 kg Hima Rene [employer] 08-01-2017 09:57-0400 BMI (Body Mass Index) 23.59 kg/m2 Hima Rene [employer] 08-01-2017 09:57-0400 Body weight 58.51 kg Hima Rene [employer] 08-01-2017 09:57-0400 BP Diastolic 60 mm[Hg] Hima Rene Clemente [employer] 08-01-2017 09:57-0400 BP Systolic 94 mm[Hg] Hima Rene [employer] 08-01-2017 09:57-0400 BSA (Body Surface Area) 1.6 m2 Hima Rene [employer] 08-01-2017 09:57-0400 Height 157.48 cm Hima Rene [employer] 08-01-2017 09:57-0400 Pulse (Heart Rate) 80 /min Hima Rene [employer] 08-01-2017 09:57-0400 Weight 58.51 kg Hima [employer] 01-13-2017 12:02-0400 BMI (Body Mass Index) 22.59 kg/m2 Hima Rene [employer] 01-13-2017 12:02-0400 Body weight 56.02 kg Hima Clemente [employer] 01-13-2017 12:02-0400 BP Diastolic 76 mm[Hg] Hima [employer] 01-13-2017 12:02-0400 BP Systolic 122 mm[Hg] Hima [employer] 01-13-2017 12:02-0400 BSA (Body Surface Area) 1.57 m2 Hima Rene [employer] 01-13-2017 12:02-0400 Height 157.48 cm Hima Clemente [employer] 01-13-2017 12:02-0400 Pulse (Heart Rate) 72 /min Hima lowry [employer] 01-13-2017 12:02-0400 Weight 56.02 kg Hima [employer] 10-29-2016 16:57-0400 BMI (Body Mass Index) 22.13 kg/m2 Hima Rene [employer] 10-29-2016 16:57-0400 Body weight 54.89 kg Hima Rene [employer] 10-29-2016 16:57-0400 BP Diastolic 60 mm[Hg] Hima Rene Clemente [employer] 10-29-2016 16:57-0400 BP Systolic 104 mm[Hg] Hima Rene [employer] 10-29-2016 16:57-0400 BSA (Body Surface Area) 1.55 m2 Hima Rene [employer] 10-29-2016 16:57-0400 Height 157.48 cm Hima Rene [employer] 10-29-2016 16:57-0400 Pulse (Heart Rate) 68 /min Hima Cardoza [place] 10-29-2016 16:57-0400 Weight 54.89 kg Hima Rene [employer] 01-28-2016 17:46-0400 BMI (Body Mass Index) 21.67 kg/m2 Hima Rene [employer] 01-28-2016 17:46-0400 Body weight 53.75 kg Hima Clemente [employer] 01-28-2016 17:46-0400 BP Diastolic 64 mm[Hg] Hima Rene Clemente [employer] 01-28-2016 17:46-0400 BP Systolic 94 mm[Hg] Hima Rene Clemente [employer] 01-28-2016 17:46-0400 BSA (Body Surface Area) 1.53 m2 Hima Rene [employer] 01-28-2016 17:46-0400 Height 157.48 cm Hima Clemente [employer] 01-28-2016 17:46-0400 Pulse (Heart Rate) 64 /min Hima Cardoza [place] 01-28-2016 17:46-0400 Weight 53.75 kg Hima Rene [employer] 05-30-2015 16:50-0500 BMI (Body Mass Index) 21.22 kg/m2 Hima Rene [employer] 05-30-2015 16:50-0500 Body Temperature 98 [degF] Hima Andrade [employer] 05-30-2015 16:50-0500 Body weight 52.62 kg Hima Clemente [employer] 05-30-2015 16:50-0500 BP Diastolic 64 mm[Hg] Hima Clemente [employer] 05-30-2015 16:50-0500 BP Systolic 90 mm[Hg] Hima Rene [employer] 05-30-2015 16:50-0500 BSA (Body Surface Area) 1.52 m2 Hima Rene [employer] 05-30-2015 16:50-0500 Height 157.48 cm Hima Clemente [employer] 05-30-2015 16:50-0500 Pulse (Heart Rate) 92 /min Hima lowry [employer] 05-30-2015 16:50-0500 Weight 52.62 kg Hima Clemente [employer] 04-08-2015 16:01-0500 BMI (Body Mass Index) 21.28 kg/m2 Hima Rene [employer] 04-08-2015 16:01-0500 Body Temperature 98.4 [degF] Hima Andrade [employer] 04-08-2015 16:01-0500 Body weight 51.94 kg Hima Clemente [employer] 04-08-2015 16:01-0500 BP Diastolic 84 mm[Hg] Hima Rene [employer] 04-08-2015 16:01-0500 BP Systolic 118 mm[Hg] Hima Rene [employer] 04-08-2015 16:01-0500 BSA (Body Surface Area) 1.5 m2 Hima Rene [employer] 04-08-2015 16:01-0500 Height 156.21 cm Hima Rene [employer] 04-08-2015 16:01-0500 Pulse (Heart Rate) 72 /min Hima Rene [facility] [employer] 04-08-2015 16:01-0500 Weight 51.94 kg Hima Rene [employer] Encounters Encounter Date Encounter Type Care Provider Facility Start: 11-01-2024 End: 11-01-2024 Clinisync Result Encounter Eleazar Vijaya DO Work Phone: [facility] External Department Unsolicited Start: 11-01-2024 End: 11-01-2024 Clinisync Result Encounter Eleazar Vijaya DO Work Phone: [facility] External Department Unsolicited Start: 10-31-2024 End: 10-31-2024 Clinisync Result Encounter Eleazar Vijaya DO Work Phone: [facility] External Department Unsolicited Start: 10-31-2024 End: 10-31-2024 Clinisync Result Encounter Eleazar Vijaya DO Work [...] Comment on above: Third trimester preg chepe ([facility]); 38 weeks gestation of ([facility] Start: 10-29-2024 End: 10-29-2024 ambulatory ELEAZAR VIJAYA [...] Comment on above: Third trimester preg chepe ([facility]); 37 weeks gestation of ([facility] Start: 10-23-2024 End: 10-23-2024 ambulatory ELEAZAR VIJAYA [...] 15 minutes Eleazar Vijaya DO Work Phone: [facility] Comment on above: Third trimester [...] visit 15 minutes Cheryl MARIE Work Phone: [facility] Comment on above: Third trimester [...] End: 09-24-2024 Clinisync Result Encounter Gaye Gurpreet CODE AND TEST CLERK Work Phone: [facility] External Department Unsolicited Start: 09-24-2024 End: 09-24-2024 Clinisync Result Encounter Gaye Gurpreet CODE AND TEST CLERK Work Phone: [facility] External Department Unsolicited Start: 09-19-2024 End: 09-19-2024 Clinisync Result Encounter Gaye Gurpreet CODE AND TEST CLERK Work Phone: [facility] External Department Unsolicited Start: 09-19-2024 End: 09-19-2024 Clinisync Result Encounter Gaye Gurpreet CODE AND TEST CLERK Work Phone: [facility] External Department Unsolicited Start: [...] End: 08-20-2024 Clinisync Result Encounter Gaye Gurpreet CODE AND TEST CLERK Work Phone: [facility] External Department Unsolicited Start: [...] Start: 07-09-2024 End: 07-11-2024 Clinisync Result Encounter Cherly MARIE Work Phone: [facility] External Department Unsolicited Start: 06-26-2024 End: 06-26-2024 Bamboo flowsheet Eleazar Vijaya DO Work Phone: [facility] Start: 06-26-2024 End: 06-26-2024 Bamboo flowsheet Eleazar Vijaya DO Work Phone: [facility] Start: 06-26-2024 End: 06-26-2024 Office outpatient visit 15 minutes Eleazar Lilly DO Work Phone: [facility] Comment on above: Second trimester pre gnancy; 20 weeks gestation of ; Low-lying placenta; Nausea and vomiting in Start: 06-26-2024 End: 06-26-2024 ambulatory ELEAZAR ARREGUINO Not Available Start: 06-23-2024 End: 06-23-2024 Clinisync Result Encounter Cheryl MARIE Work Phone: [facility] External Department Unsolicited Start: 06-23-2024 End: 06-23-2024 Clinisync Result Encounter Cheryl MARIE Work Phone: [facility] External Department Unsolicited Start: 05-28-2024 End: 05-28-2024 Bamboo flowsheet Cheryl MARIE Work Phone: [facility] Start: 05-28-2024 End: 06-01-2024 Bamboo flowsheet Cheryl MARIE Work Phone: [facility] Start: 05-28-2024 End: 06-01-2024 Clinisync Result Encounter Cheryl MARIE Work Phone: [facility] External Department Unsolicited Start: 05-28-2024 End: 05-28-2024 Patient encounter procedure Cheryl MARIE Work Phone: [facility] Healthcare Start: 05-28-2024 End: 05-28-2024 Periodic preventive med est patient 18-39 yrs Cheryl MARIE Work Phone: [facility] Comment on above: Screening, , for anatomic survey; STD exposure; Vaginal discharge; Well woman exam with routine gynecological exam; Second trimester ; Nausea and vomiting in Start: 05-28-2024 End: 05-28-2024 ambulatory CHERYL BAUGH Not Available Start: 05-18-2024 End: 05-18-2024 ambulatory [facility] Work Phone: Start: 05-18-2024 End: 01-10-2025 Patient encounter procedure [facility] Work Phone: Start: 04-30-2024 End: 04-30-2024 [...] 04-18-2024 End: 04-18-2024 ambulatory Susana Alonzo PA-C Facility:[facility] Start: 04-16-2024 End: 04-16-2024 Clinisync Result Encounter Eleazar Vijaya DO Work Phone: [facility] External Department Unsolicited Start: 04-16-2024 End: 04-16-2024 Clinisync Result Encounter Eleazar Vijaya DO Work Phone: [facility] Department Unsolicited Start: 04-16-2024 Non-patient / Non-visit [facility] Work Phone: Start: 04-13-2024 [...] Not Available Start: 03-19-2024 Non-patient / Non-visit Formerly [facility] Physician [facility] Work Phone: Start: 03-17-2024 Non-patient / Non-visit [facility] Work Phone: Start: 03-14-2024 [...] Department Unsolicited Start: 03-08-2024 Non-patient / Non-visit [facility] Work Phone: Start: 03-07-2024 End: 03-07-2024 ambulatory Ana Simmons APRN-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 Facility: [facility] Start: 03-02-2024 Non-patient / Non-visit [facility] Work Phone: Start: 02-29-2024 Non-patient / Non-visit [facility] Physician [facility] Work Phone: Start: 02-28-2024 Non-patient / Non-visit Former[facility] Physician [facility] Work Phone: Start: 02-28-2024 End: 02-28-2024 Phys/qhp telephone evaluation 5-10 min Eleazar Vijaya DO Work Phone: [facility] Comment on above: Early stage of pregn ana Start: 02-27-2024 Non-patient / Non-visit [facility] Work Phone: Start: 02-21-2024 Non-patient / Non-visit [facility] Work Phone: Start: 02-08-2024 [...] 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 Phone: [facility] [place] Work Phone: Start: 02-02-2024 End: 02-02-2024 ambulatory Jodie Portillo [facility] Work Phone: Start: 02-02-2024 End: 02-02-2024 Patient encounter procedure Formerly [facility] Physician [facility] Work Phone: Start: 01-24-2024 End: 01-24-2024 ambulatory [facility] Work Phone: Start: 01-24-2024 End: 01-24-2024 Patient encounter procedure Formerly [facility] Physician [facility] Work Phone: Start: 01-24-2024 End: 01-24-2024 ambulatory Mike Jones Facility:TONY Rod[facility]guez Start: 01-19-2024 Non-patient / Non-visit [facility] Physician [facility] Work Phone: Start: 01-03-2024 End: 01-03-2024 ambulatory [facility] Work Phone: Start: 01-03-2024 End: 01-03-2024 Patient encounter procedure Formerly [facility] Physician [facility] Work Phone: Start: 08-10-2023 End: 08-10-2023 ambulatory Ana Maryse Troy 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 Facility: [facility] Start: 07-21-2023 End: 07-21-2023 ambulatory [facility] Work Phone: Start: 07-21-2023 End: 07-21-2023 Patient encounter procedure [facility] Physician [facility] Work Phone: Start: 06-28-2023 ambulatory Amara MARIE-C Facility:[facility] Start: 06-27-2023 End: 06-27-2023 ambulatory Susana MARIE-C Facility:[facility] Start: 06-22-2023 End: 06-22-2023 ambulatory Ana Maryse Troy 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 Facility:[facility] Start: 03-26-2023 End: 03-26-2023 ambulatory Jodie Portillo Other [employer] Other Start: 03-26-2023 Office outpatient vi sit 15 minutes Jodie Portillo [facility] Start: 10-02-2022 End: 10-02-2022 ambulatory Deidra Jimenez Other [employer] Other Start: 10-02-2022 Office outpatient ne w 20 minutes Deidra Jimenez [facility] Start: 05-21-2019 Office outpatient vi sit 15 minutes Lyric Pérez Other [facility] Office Start: 05-11-2019 [facility] Other [facility] Office Start: 05-11-2019 Office outpatient vi sit 15 minutes Lyric Pérez Other [facility] Office Start: 04-27-2019 Office outpatient vi sit 15 minutes Lyric Pérze Other [facility] Office Start: 04-09-2019 Office outpatient vi sit 15 minutes Lyric Pérez Other [facility] Office Start: 02-06-2019 Office outpatient vi sit 15 minutes Lyric Pérez Other [facility] Office Start: 10-31-2018 Routine general medi brad examination at a [facility] facility [facility] Start: 10-31-2018 [facility] Other [facility] Office Start: 10-31-2018 Office outpatient vi sit 15 minutes Cheryl Dobbins Other [facility] Office Start: 08-28-2018 Lab [facility] Other [facility] Start: 08-28-2018 Office outpatient vi sit 15 minutes Cheryl Dobbins Other [facility] Office Start: 04-20-2018 End: 04-20-2018 [facility] Start: 03-08-2018 Lab Enrique sy Other [facility] Office Start: 03-08-2018 Office outpatient vi sit 15 minutes Vinita Ordonez Other [facility] Office Start: 02-09-2018 Office outpatient vi sit 15 minutes Lyric Pérez Other [facility] Office Start: 02-03-2018 End: 02-03-2018 Lab Enrique José Luis Other [facility] Office Start: 01-30-2018 Lab Enrique Scarbrou gh Other [facility] Office Start: 01-30-2018 Office outpatient vi sit 15 minutes Vinita José Luis Other [facility] Office Start: 01-11-2018 Office outpatient vi sit 15 minutes Lyric Pérez Other [facility] Office Start: 12-28-2017 Office outpatient vi sit 15 minutes Vinita José Luis Other [facility] Office Start: 12-28-2017 Lab Enrique Scarbrou gh Other [facility] Office Start: 08-01-2017 Office outpatient vi sit 25 minutes Lyric Pérez Other [facility] Office Start: 07-28-2017 End: 07-28-2017 Emergency department patient visit [facility] Start: 01-13-2017 Office outpatient vi sit 15 minutes Rachel Ly Other [facility] Office Start: 10-29-2016 Office outpatient vi sit 15 minutes Rachel Ly Other [facility] Office Start: 06-07-2016 Office outpatient vi sit 15 minutes Enrique José Luis Other [facility] Office Start: 04-23-2016 Office outpatient vi sit 15 minutes Enrique José Luis Other [facility] Office Start: 03-19-2016 Office outpatient vi sit 15 minutes Enrique José Luis Other [facility] Office Start: 02-12-2016 Office outpatient ne w 20 minutes Enrique José Luis Other [facility] Office Start: 01-28-2016 Office outpatient vi sit 15 minutes Lyric Pérez Other [facility] Office Start: 05-30-2015 Office outpatient vi sit 15 minutes Lyric Pérez Other [facility] Office Start: 04-08-2015 Office outpatient ne w 20 minutes Lyric Pérez Other [facility] Office Procedures Date Procedure Procedure Detail Performing Clinician Start: 11-01-2024 ALL CBC WITH AUTO DIFF Eleazar Vijaya DO Work Phone: Start: 10-31-2024 [facility]HP CBC WITH PLATEL ET NO DIFFERENTIAL Eleazar Vijaya DO Work Phone: Start: 10-30-2024 OB BPP W NON-STRESS Eleazar Vijaya DO Work Phone: Start: 10-23-2024 US OB BPP W NON-STRESS Eleazar Vijaya DO Work Phone: Start: 10-23-2024 Urnls dip stick/tabl et rgnt non-auto w/o micrscp Eleazar Vijaya DO Work Phone: Start: 10-16-2024 OB BPP W NON-STRESS Eleazar Vijaya DO Work Phone: Start: 10-16-2024 Urnls dip stick/tabl et rgnt non-auto w/o micrscp Eleazar Vijaya DO Work Phone: Start: 10-14-2024 AMNISURE Eleazar Fazi o DO Work Phone: Start: 10-14-2024 [facility] UA (CLEAN/CATCH) NCA CERTIFIED CONCIERGE/MICRO IF IND. Eleazar Vijaya DO Work Phone: Start: 10-09-2024 OB BPP W NON-STRESS Eleazar Vijaya DO Work Phone: Start: 10-02-2024 US OB BPP W NON-STRESS Eleazar Vijaya DO Work Phone: Start: 09-25-2024 US OB BPP W NON-STRESS Eleazar Vijaya DO Work Phone: Start: 09-24-2024 ALL CBC WITH AUTO DIFF Gaye Vázquez CODE AND TEST CLERK Work Phone: Start: 09-19-2024 [facility] CMP (CMP) (FOR R EMOTE [facility] USE) Gaye Vázquez NP Work Phone: Start: 09-18-2024 US OB GROWTH Eleazar Fazi o DO Work Phone: Start: 09-13-2024 Urnls dip stick/tabl et rgnt non-auto w/o micrscp Eleazar Vijaya DO Work Phone: Start: 08-20-2024 ALL CBC WITH AUTO DIFF Gaye Gurpreet CODE AND TEST CLERK Work Phone: Start: 08-20-2024 Urnls dip stick/tabl [...] [facility] Start: 05-11-2019 EBV Complete Series Albertina Pérez [...] stick/tabl et rgnt auto w/o microscopy [facility] Start: 04-20-2018 Radex spine lumbosac ral 2/3 [...] meds verified w/ pt or re [facility] Start: 02-03-2018 Urine test visual color cmprsn meths [facility] Start: 01-30-2018 Doc meds verified w/ pt or re [facility] Start: 01-30-2018 Urine test visual color cmprsn [...] meds verified w/ pt or re [facility] Start: 06-07-2016 Assay of triglycerides [facility] Start: 06-07-2016 Blood count complete auto&auto difrntl wbc [facility] Start: 06-07-2016 Cholesterol serum/wh ole blood total [facility] Start: 06-07-2016 Gonadotropin chorion ic qualitative [facility] Start: 06-07-2016 Hepatic function panel [facility] Start: 04-23-2016 Urine test visual color cmprsn meths [facility] Start: 03-19-2016 Urine test visual color cmprsn meths [facility] Start: 02-12-2016 Assay of triglycerides [facility] Start: 02-12-2016 Blood count complete auto&auto difrntl wbc [facility] Start: 02-12-2016 Cholesterol serum/wh ole blood total [facility] Start: 02-12-2016 Gonadotropin chorion ic qualitative [facility] Start: 02-12-2016 Hepatic function panel [facility] Plan of Treatment Date Care Activity Detail Author Start: 01-07-2025 Influenza vaccination Influenz a Vaccine (Season Ended) [facility] Start: 11-05-2024 End: 11-05-2024 Patient encounter procedure 11/05/2024 8:30 AM EDT Routine [facility] [address] [place] [address] Eleazar Lilly DO [address] [place] [address] [facility] Start: 10-29-2024 End: 10-29-2024 [...] AM EDT Routine [facility] [address] [place] [address] Cheryl Baugh PA [address] [place], [place] [id number] [facility] Start: 09-13-2024 End: 01-14-2025 US for US OB follow up transabdominal approach Imaging Routine size inconsistent with dates Expected: 09/13/2024, Expires: 01/14/2025 [facility] Work Phone: Comment on above: Expected: 09/13/2024 , Expires: 01/14/2025 Start: 09-13-2024 End: 09-13-2024 Patient encounter procedure 09/13/2024 10:30 AM EDT Routine [facility] [address] [place] [id number] Eleazar Lilly, DO [address] [place] [address] Arrived [facility] Comment on above: Arrived Start: 09-10-2024 End: 09-10-2024 Patient encounter procedure 09/10/2024 10:40 AM EDT Routine [facility] [address] [place] [phone] Eleazar Lilly, DO [address] [place] [address] [facility] Start: 08-20-2024 End: 08-20-2024 Patient encounter procedure [facility] Comment on above: Arrived Start: 07-23-2024 End: 07-23-2025 CBC panel - Blood by Automated count CBC Lab Routine Diabetes mellitus screening Expected: 07/23/2024 (Approximate), Expires: 07/23/2025 [facility] Work Phone: Comment on above: Expected: 07/23/2024 (Approximate), Expires: 07/23/2025 Start: 07-23-2024 End: 07-23-2025 Measurement of glucose 1 hour after glucose challenge for glucose tolerance test Glucose tolerance, 1 hour Lab Routine Diabetes mellitus screening Expected: 07/23/2024 (Approximate), Expires: 07/23/2025 [facility] Comment on above: Expected: 07/23/2024 (Approximate), Expires: 07/23/2025 Start: 07-23-2024 End: 07-23-2024 Patient encounter procedure 07/23/2024 10:20 AM EDT Routine [facility] [address] [facility] [place] [phone] Cheryl Baugh PA [address] [place] [address] [facility] Start: 07-23-2024 End: 07-23-2024 Professional / ancillary services management 07/23/2024 9:00 AM EDT Ancillary Procedure [facility] [address] [facility] [place] [address] [facility] Start: 06-26-2024 End: [...] PM EST Routine [facility] [address] [facility] [place] [phone] Cheryl Baugh PA [address] [place] [address] Arrived [facility] Comment on above: Arrived Start: 04-30-2024 End: 04-30-2024 Patient encounter procedure 04/30/2024 10:10 AM EST Routine [facility] [address] [place] [address] [place] [phone] Eleazar Lilly, [address] [place] [address] 12 weeks gestation of ; Second trimester [facility] Comment on above: 12 weeks gestation o f ; Second trimester Start: 04-23-2024 End: 04-23-2024 Patient encounter procedure 04/23/2024 10:50 AM EST Routine [facility] [address] [place] [address] [place] [phone] Eleazar Lilly, [address] [place] [address] [facility] Start: 03-23-2024 End: 03-23-2025 [...] AM EST Initial [facility] [address] [facility] [place] [address] [facility] Start: 03-23-2024 End: 03-23-2024 Professional / ancillary services management 03/23/2024 9:30 AM EST Ancillary Procedure [facility] [address] [facility] [place] [phone] [facility] Start: 03-14-2024 End: 03-14-2024 Patient encounter procedure 03/14/2024 1:30 PM EST Office Visit [facility] [address] [place] [phone] Eleazar Lilly, DO [address] [place] [address] Arrived [facility] Comment on above: Arrived Start: 02-28-2024 End: 02-28-2024 Patient encounter procedure 02/28/2024 8:10 AM EDT Office Visit [facility] [address] [facility] [place] [phone] Eleazar Lilly, DO [address] [place] [address] [place] [address] [facility] Start: 02-08-2024 End: 02-07-2025 SURESWAB(R) ADVANCED VAGINITIS PLUS, TMA SURESWAB(R) ADVANCED VAGINITIS PLUS, TMA Pathology and Cytology Routine Pelvic pain in female Expected: 02/08/2024 (Approximate), Expires: 02/07/2025 [facility] Work Phone: Comment on above: Expected: 02/08/2024 (Approximate), Expires: 02/07/2025 Start: 02-08-2024 End: 02-07-2025 US for US PELVIS-TRANSVAG IF INDICATED Imaging Routine Pelvic pain in female Expected: 02/08/2024 (Approximate), Expires: 02/07/2025 [facility] Comment on above: Expected: 02/08/2024 (Approximate), Expires: 02/07/2025 Start: 02-08-2024 End: 02-08-2024 Patient encounter procedure 02/08/2024 1:20 PM EDT Office Visit [facility] [address] [place] [phone] Eleazar Lilly, DO [address] [place], [place] [phone] Arrived [facility] Comment on above: Arrived Start: 02-02-2024 [facility] Start: 01-08-2024 Influenza vaccination Influenza Vacc ine (#1) [facility] Start: 05-11-2019 Blood count complete auto&auto difrntl wbc CBC w diff [facility] Start: 05-11-2019 TSH Qn TSH [facility] Start: 11-02-2018 Blood count complete automated CBC & PLATELET COUNT; AUTOMATED [facility] Start: 11-02-2018 Comprehensive metabo lic panel Comprehensive metabolic panel [facility] Start: 11-02-2018 Gonadotropin chorion ic qualitative SERUM [facility] Start: 11-02-2018 Hemoglobin A1c/Hemoglobin.total mass fraction (Bld) Hgb A1c [facility] Start: 11-02-2018 Lipid panel Lipid panel [facility] Start: 11-02-2018 Thyrotropin Qn TSH (thyroid s timulating hormone) [facility] Start: 11-02-2018 Urnls dip stick/tabl et rgnt auto w/o microscopy [facility] Atopobium vaginae DN A [Presence] in Vaginal fluid by ELDON with probe detection [facility] Bacteria identified in Urine by Culture Urine culture Microbiology Routine Missed menses Ordered: 03/23/2024 [facility] Comment on above: Ordered: 03/23/2024 Bacterial vaginosis associated bacterium 2 DNA [Presence] in Vaginal fluid by ELDON with probe detection [facility] CBC W Auto Different ial panel - Blood CBC and differential Lab Routine Missed menses , unspecified gestational age Ordered: 03/23/2024 [facility] Comment on above: Ordered: 03/23/2024 CBC W Auto Different ial panel - Blood CBC and differential Lab Routine Third trimester Ordered: 08/20/2024 [facility] Comment on above: Ordered: 08/20/2024 CHLAMYDIA TRACHOMATI S (GENITO/STI) CHLAMYDIA TRACHOMATIS (GENITO/STI) Lab Routine Pelvic pain in female Ordered: 02/08/2024 [facility] Comment on above: Ordered: 02/08/2024 CHLAMYDIA TRACHOMATI S (GENITO/STI) CHLAMYDIA TRACHOMATIS (GENITO/STI) Lab Routine STD exposure Ordered: 05/28/2024 [facility] Comment on above: Ordered: 05/28/2024 Cytology Cervical or vaginal smear or scraping study Pap Smear Pathology and Cytology Routine Well woman exam with routine gynecological exam Ordered: 05/28/2024 [facility] Comment on above: Ordered: 05/28/2024 Estradiol (E2) [Mass/volume] in Serum or Plasma [facility] Estrogen [Mass/volum e] in Serum or Plasma [facility] Hemoglobin A1c/Hemoglobin.total in Blood Hemoglobin A1c Lab Routine Missed menses , unspecified gestational age Ordered: 03/23/2024 [facility] Comment on above: Ordered: 03/23/2024 Hemoglobin A1c/Hemoglobin.total in Blood Hemoglobin A1c Lab Routine Third trimester Ordered: 08/20/2024 [facility] Work Phone: Comment on above: Ordered: 08/20/2024 Hepatitis B virus surface Ag [Presence] in Serum or Plasma by Immunoassay Hepatitis B surface antigen Lab Routine Missed menses , unspecified gestational age Ordered: 03/23/2024 [facility] Comment on above: Ordered: 03/23/2024 Hepatitis C virus Ab [Presence] in Serum or Plasma by Immunoassay Hepatitis C antibody Lab Routine Missed menses , unspecified gestational age Ordered: 03/23/2024 [facility] Comment on above: Ordered: 03/23/2024 HIV-1/HIV-2 antigen/antibody combination immunoassay HIV-1 and HIV-2 antibodies Lab Routine Missed menses , unspecified gestational age Ordered: 03/23/2024 [facility] Comment on above: Ordered: 03/23/2024 Holter monitor study [facility] Lutropin [Units/volu me] in Serum or Plasma [facility] Megasphaera sp type 1 DNA [Presence] in Vaginal fluid by ELDON with probe detection [facility] Neisseria gonorrhoea e DNA [Presence] in Unspecified specimen by ELDON with probe detection Neisseria gonorrhea DNA probe, direct Lab Routine Pelvic pain in female Ordered: 02/08/2024 [facility] Comment on above: Ordered: 02/08/2024 Neisseria gonorrhoea e DNA [Presence] in Unspecified specimen by ELDON with probe detection Neisseria gonorrhea DNA probe, direct Lab Routine STD exposure Ordered: 05/28/2024 [facility] Comment on above: Ordered: 05/28/2024 Progesterone [Mass/volume] in Serum or Plasma [facility] Reagin Ab [Presence] in Serum by RPR RPR Lab Routine Missed menses , unspecified gestational age Ordered: 03/23/2024 [facility] Comment on above: Ordered: 03/23/2024 Rubella antibody, IgG Rubella an tibody, IgG Lab Routine Missed menses , unspecified gestational age Ordered: 03/23/2024 [facility] Comment on above: Ordered: 03/23/2024 SURESWAB(R) ADVANCED VAGINITIS PLUS, TMA SURESWAB(R) ADVANCED VAGINITIS PLUS, TMA Pathology and Cytology Routine Vaginal discharge Ordered: 05/28/2024 [facility] Comment on above: Ordered: 05/28/2024 XR Cervical spine 5 Views [facility] XR Thoracic and lumb ar spine Views for scoliosis [facility] Payers Date Payer Category Payer Self-pay 2022 Medicaid [id number] 2022 Medicaid [id number] 2. [id number] 2022 Unknown 2015 Unknown [id number] 2.16 .[id number] 2014 Unknown [id number] 1996 Unknown [id number] 2.16.8 40.1.329552.3.579.2.173 1996 Unknown [id number] 2.16.8 40.1.223457.3.579.2.173 1996 Unknown [id number] 2.16. 840.1.933919.3.579.2.196 1996 Unknown [id number] 2.16. 840.1.785314.3.579.2.196 1996 Unknown [id number] 2.16. 840.1.225567.3.579.2.196 1996 Unknown [id number] 2.16. 840.1.711926.3.579.2.196 1996 Unknown [id number] 2.16. 840.1.566039.3.579.2.196 1996 Unknown [id number] 2.16. 840.1.627039.3.579.2.196 1996 Unknown [id number] 2.16. 840.1.225080.3.579.2.196 1996 Unknown [id number] 2.16.8 40.1.405861.3.579.2.1259 1996 Unknown [id number] 2.16.8 40.1.950076.3.579.2.1259 1996 Unknown [id number] 2.16.8 40.1.873735.3.579.2.9 1996 Unknown [id number] 2.16.84 0.1.763965.3.579.2.9 1996 Unknown [id number] 2.16.84 0.1.210009.3.579.2.9 1996 Unknown [id number] 2.16.84 0.1.476336.3.579.2.1258 1996 Unknown [id number] 2.16.84 0.1.215210.3.579.2.1258 1996 Unknown [id number] 2.16.84 0.1.453819.3.579.2.1258 1996 Unknown [id number] 2.16.84 0.1.877112.3.579.2.9 1996 Unknown [id number] 2.16.84 0.1.968812.3.579.2.1258 1996 Unknown [id number] 2.16.84 0.1.162106.3.579.2.9 1996 Unknown [id number] 2.16.84 0.1.254330.3.579.2.9 1996 Unknown [id number] 2.16.84 0.1.116389.3.579.2.9 1996 Unknown [id number] 2.16.84 0.1.383273.3.579.2.1258 Unknown [id number] 2.16.8 40.1.694298.3.579.2.531 Social History Date Type Detail Facility Start: Unknown if ever smoked [facility] Start: 1 can pop/day [facility] Sex Assigned At [employer] Other Start: 07-21-2023 End: 02-02-2024 Tobacco smoking status MAIS Never smoked tobacco (finding) [facility] Start: 1995 Sex Assigned At Female F [facility] Tobacco smoking status NHIS Tobacco smoking consumption unknown [facility] Start: 1995 Sex assigned at Not on file [facility] Start: 02-17-2024 [facility] Start: 05-18-2024 Sex Female (finding) Dianna [facility] Clinical Notes 10-02-2022 to 10-29-2024 Gaye Vázquez NP - 10/29/2024 8:20 AM Baldomero Xavier LPN - 10/23/2024 9:00 AM Baldomero Xavier, GRETCHEN - 10/16/2024 10:10 AM CYNTHIA Hurd - [...] Diagnosis Date Noted Nausea and vomiting in ([facility]) 04/16/2024 12 weeks gestation of ([facility]) 04/30/2024 Second trimester ([facility]) 04/30/2024 Resolved Ambulatory Problems Diagnosis Date Noted [...] nursing note reviewed. Exam conducted with a deburr operator present. Vitals: Estimated body mass index is 27.85 kg/m as calculated from the following: Height as of 24: 5' 1 . Weight as of this encounter: 147 lb 6.4 oz. BP: 120/74 Patient's last menstrual period was 01/23/2024. ASSESSMENT & PLAN ICD-10-CM 1. Third trimester ([facility]) Z34.93 2. 38 weeks gestation of ([facility]) Z3A.38 Return OB: Patient presents today [...] Eleazar Lilly DO documented in this encounter [facility] 10-23-2024 History of Present illness Narrative Reason [...] Diagnosis Date Noted Nausea and vomiting in ([facility]) 04/16/2024 12 weeks gestation of ([facility]) 04/30/2024 Second trimester ([facility]) 04/30/2024 Resolved Ambulatory Problems Diagnosis Date Noted [...] nursing note reviewed. Exam conducted with a deburr operator present. Vitals: Estimated body mass index is 27.59 kg/m as calculated from the following: Height as of 02/08/24: 5' 1 . Weight as of this encounter: 146 lb. BP: 124/78 Patient's last menstrual period was 01/23/2024. ASSESSMENT & PLAN ICD-10-CM 1. Third trimester ([facility]) Z34.93 POCT urinalysis dipstick manually resulted 2. 37 weeks gestation of ([facility] Z3A.37 Return OB: Patient presents today for [...] Eleazar Lilly DO documented in this encounter [facility] 10-16-2024 History of Present illness Narrative Reason [...] nursing note reviewed. Exam conducted with a deburr operator present. Vitals: Estimated body mass index is [...] Eleazar Lilly DO documented in this encounter [facility] 10-02-2024 History of Present illness Narrative Reason [...] calculated from the following: Height as of 10/2/24: 5' 1 . Weight as of this [...] CYNTHIA Del Cid documented in this encounter [facility] 09-13-2024 History of Present illness Narrative Reason [...] Eleazar Lilly DO documented in this encounter [facility] 08-20-2024 History of Present illness Narrative Reason [...] nursing note reviewed. Exam conducted with a deburr operator present. Vitals: Estimated body mass index is [...] of: LYNN Duran documented in this encounter [facility] 07-23-2024 History of Present illness Narrative Reason [...] CYNTHIA Del Cid documented in this encounter [facility] 06-26-2024 History of Present illness Narrative Reason [...] nursing note reviewed. Exam conducted with a deburr operator present. Vitals: Estimated body mass index is [...] Eleazar Lilly DO documented in this encounter [facility] 05-28-2024 History of Present illness Narrative Reason [...] nursing note reviewed. Exam conducted with a deburr operator present. Vitals: Estimated body mass index is [...] obtained without difficulty and patient was given [facility] order to have obtained. Orders [...] CYNTHIA Del Cid documented in this encounter [facility] 04-30-2024 History of Present illness Narrative Reason [...] Eleazar Lilly DO documented in this encounter [facility] 03-23-2024 History of Present illness Narrative Reason [...] undercooked meat, and stay away from [facility]. Patient has also been advised to [...] Alana Gongora LPN documented in this encounter [facility] 03-14-2024 History of Present illness Narrative Reason [...] nursing note reviewed. Exam conducted with a deburr operator present. Vitals: Estimated body mass index is [...] Eleazar Lilly DO documented in this encounter [facility] 03-02-2024 Note Patient Education Ma terials Name: ManjinderGiancarlo Current Date: 03/02/2024 06:56:41 [facility] : 1995 The following sheet(s) are the [...] breast self-exam (BSE). These experts include the [employer] and the [employer]nec[employer]. Some experts [...] This means they are not cancer. ? 1923-4277 [employer]. All rights reserved. This information is not intended as a substitute for professional medical care. Always follow your healthcare professional's instructions. [facility] 02-28-2024 History of Present illness Narrative Reason for Appointment: Patient ID: Giancarlo Celaya is a 28 y.o. female who presents for Telehealth (Pt had ultrasound and positive HCG) Patient presents today via telephone call for a telehealth appointment. Patients Phone #: [phone] (mobile) Current Medications: has a current medication [...] Eleazar Lilly DO documented in this encounter [facility] 02-08-2024 History of Present illness Narrative Reason [...] nursing note reviewed. Exam conducted with a deburr operator present. Vitals: Estimated body mass index is [...] Eleazar Lilly DO documented in this encounter [facility] 03-26-2023 Evaluation note Encounter Date Diagnosis Assessment [...] verbalized understanding and agrees with treatment plan [facility] Other 05-27-2023 Evaluation note* Encounter Date Diagnosis [...] no improvement in 2 to 3 days [facility] Other Evaluation note* Diagnosis Onset Date Resolution Status Acquired scoliosis acute Daily headache acute Fatigue acute Hot flashes acute Irregular menstrual cycle ac lummi Neck pain acute [facility] Work Phone: Evaluation note* Diagnosis Onset Date Resolution Status Dizziness acute Heart palpitations acute [facility] Work Phone: Evaluation note* Diagnosis Onset Date Resolution Status Dizziness acute Heart palpitations acute Anxiety acute Depression [facility] Work Phone: Evaluation note* Diagnosis Onset Date Resolution Status Dizziness acute Heart palpitations acute Anxiety acute Depression acute Vaginal discharge noneactive Acute effusion of both middle ears noneactive [facility] Work Phone: Evaluation note* Diagnosis Pelvic pain [...] tube dysfunction acute May 18, 2024 10:24am [facility] Work Phone: Evaluation note* Diagnosis Screening, [...] content) DATE CREATED AUTHOR 04/25/2018 Hannah Avalos [facility] DATE CREATED AUTHOR AUTHOR'S ORGANIZ ATION 12/02/2019 [facility] DATE CREATED AUTHOR AUTHOR'S ORGANIZ ATION 02/06/2024 [facility] DATE CREATED AUTHOR AUTHOR'S ORGANIZ ATION 05/26/2024 [facility] DATE CREATED AUTHOR AUTHOR'S ORGANIZ ATION 10/30/2024 [facility] EPIC REASON FOR VISIT [...] Member Role Status Dates Evelyn Vu APRN CODE AND TEST CLERK-C Primary Care Provider Active Team Status: Inactive Member Role Status Dates Evelyn Vu APRN CODE AND TEST CLERK-C Primary Care Provider, Attending Provider Active Start: July 21, 2023 End: July 21, 2023 Team Status: Inactive Member Role Status Dates Evelyn Vu APRN CODE AND TEST CLERK-C Primary Care Provider, Attending Provider Active Start: January 03, 2024 End: January 03, 2024 Team Status: Active Member Role Status Dates Evelyn Vu APRN CODE AND TEST CLERK-C Primary Care Provider Active Start: January 072023 Ty Aguilar DO Attending Provider Active S tart: January 19, 2024 Team Status: Inactive Member Role Status Dates Evelyn Vu APRN CODE AND TEST CLERK-C Primary Care Provider, Attending Provider Active Start: January 24, 2024 End: January 24, 2024 Team Status: Inactive Member Role Status Dates Evelyn Vu APRN CODE AND TEST CLERK-C Primary Care Provider Active Start: January 082023 End: February 02, 2024 Jodie Portillo APRN Attending Provider Active Start: February 02, 2024 End: February 02, 2024 Team Status: Inactive Member Role Status Dates Jodie Portillo APRN Attending Provider Active Start: February 02, 2024 End: February 02, 2024 Director Sterile Processing Relationship Specialty Start Date End Date Corwin Dee DO [address] [place] [id number] PCP - General Family Medicine 09/14/22 Director Sterile Processing Relationship Specialty Start Date End Date Corwin Dee DO [address] [place] [address] PCP - General Family Medicine 09/14/22 Director Sterile Processing Relationship Specialty Start Date End Date Corwin Dee DO [address] [place] [address] PCP - General Family Medicine 09/14/22 Director Sterile Processing Relationship Specialty Start Date End Date Corwin Dee DO [address] [place] [address] PCP - General Family Medicine 09/14/22 Director Sterile Processing Relationship Specialty Start Date End Date Unallocated, Deng Bermudez MD [facility] [address] [place] [address] PCP - General Family Medicine 02/28/24 Director Sterile Processing Relationship Specialty Start Date End Date Unallocated, Deng Bermudez MD [facility] [address] [place] [address] PCP - General Family Medicine 02/28/24 Director Sterile Processing Relationship Specialty Start Date End Date Unallocated, Deng Bermudez MD [facility] [place] [address] PCP - General Family Medicine 02/28/24 Director Sterile Processing Relationship Specialty Start Date End Date Unallocated, Deng Bermudez MD [address] [place] [address] [place] [address] PCP - General Family Medicine 02/28/24 Director Sterile Processing Relationship Specialty Start Date End Date Unallocated, Deng Bermudez MD [facility] [address] [address] PCP - General Family Medicine 02/28/24 Director Sterile Processing Relationship Specialty Start Date End Date Unallocated, Deng Bermudez MD [facility] [address] [place] [address] PCP - General Family Medicine 02/28/24 Director Sterile Processing Relationship Specialty Start Date End Date Unallocated, Deng [facility]udez [facility] [place] [address] PCP - General Family Medicine 02/28/24 Team [...] May 18, 2024 End: May 18, 2024 Director Sterile Processing Relationship Specialty Start Date End Date Unallocated, Deng Bermudez MD [facility] [address] [place] [address] PCP - General Family Medicine 02/28/24 Director Sterile Processing Relationship Specialty Start Date End Date Unallocated, Deng Bermudez MD [facility] [place] [address] PCP - General Family Medicine 02/28/24 Director Sterile Processing Relationship Specialty Start Date End Date Unallocated, Deng Bermudez MD [facility] [place] [address] PCP - General Family Medicine 02/28/24 Director Sterile Processing Relationship Specialty Start Date End Date Unallocated, Deng Bermudez MD [facility] [place] [address] PCP - General Family Medicine 02/28/24 Director Sterile Processing Relationship Specialty Start Date End Date Unallocated, Deng Bermudez MD [address] [place] [address] PCP - General Family Medicine 02/28/24 Director Sterile Processing Relationship Specialty Start Date End Date Unallocated, Deng Bermudez MD [address] [place] [address] PCP - General Family Medicine 02/28/24 Director Sterile Processing Relationship Specialty Start Date End Date Unallocated, Deng Bermudez MD [address] [place] [address] PCP - General Family Medicine 02/28/24 Director Sterile Processing Relationship Specialty Start Date End Date Unallocated, Deng Bermudez MD [address] [place] [address] PCP - General Family Medicine 02/28/24 Director Sterile Processing Relationship Specialty Start Date End Date Unallocated, Deng Bermudez MD [address] [place] [address] PCP - General Family Medicine 02/28/24 Goals [...] BE BASED ON THE PRIMARY CLINICAL RECORDS. [employer] [facility]. provides no warranty or guarantee of the accuracy or completeness of information in this document.
--- NOTE | 2024-12-07 19:28 | XR_ITS ---
The [place] [id number] Patient Name: GIANCARLO CELAYA MRN: [id number] date: 1995 Sex: F Assigned Patient Location: ER Current Patient Location: ED.MAIN Accession/Order Number: [id number] Exam Date: 12/07/2024 20:32 Report Date: 12/07/2024 20:33 At the request of: BENITA LOPEZ MD Procedure: XR chest 2V PA AND LATERAL CHEST: CLINICAL HISTORY: fever COMPARISON: None FINDINGS: Unremarkable cardiomediastinal. Lungs clear. No effusion or pneumothorax. XR/XR chest 2V IMPRESSION: NO ACUTE CARDIOPULMONARY ABNORMALITY. Impression dictated by: Eddie Tello M.D. 12/07/2024 8:33 PM Dictation Location: [place] [address] Electronically authenticated by: [id number] Y Date: 12/07/2024 20:33
[2024-12-07 19:43] LABS: Glucose Urine UA NEGATIVE (NEGATIVE)
[2024-12-07 19:48] LABS: Crystals Seen? None Seen #/HPF (None Seen)
[2024-12-07 19:49] LABS: Cast Seen? NONE SEEN #/LPF (NONE SEEN); Urine Culture Indicated YES-FRMC
[2024-12-07 19:53] LABS: HCG Qualitative Urine* NEGATIVE (NEGATIVE)
[2024-12-07] MEDS: ACETAMINOPHEN 500 MG TABLET 1000 MG PO (20:09)
[2024-12-07 20:22] LABS: Hematocrit 37.7 % (36.0-48.0); Hemoglobin 13.3 g/dL (12.0-16.0); Immature Granulocytes Abs Auto 0.02 10^3/uL (0.00-0.03); Immature Granulocytes Pct Auto 0.2 % (0.0-0.5); Lymphocytes Absolute Auto 0.8 10^3/uL (1.2-3.8); Mean Corpuscular HGB Conc 35.3 g/dL (29.9-35.2); Mean Corpuscular Hemoglobin 29.5 pg (26.7-34.0); Mean Corpuscular Volume 83.6 fL (81.0-99.0); Platelet Count 87 10^3/uL (150-450); Red Blood Count 4.51 10^6/uL (4.20-5.40); White Blood Count 11.2 10^3/uL (4.0-11.0)
[2024-12-07 20:34] LABS: Alanine Aminotransferase 49 U/L (14-59); Albumin Globulin Ratio 1.0; Albumin Level 4.0 g/dL (3.4-5.0); Alkaline Phosphatase 111 U/L (46-116); Anion Gap 13.4; Aspartate Amino Transferase 24 U/L (15-37); Blood Urea Nitrogen 11.0 mg/dL (7.0-18.0); Calcium 9.4 mg/dL (8.5-10.1); Carbon Dioxide 30.4 mmol/L (21.0-32.0); Chloride 99 mmol/L (98-107); Estimated GFR (African America >60 (>=60 mL/min/1.73m^2); Estimated GFR (Non-African Ame >60 (>=60 mL/min/1.73m^2); Globulin 4.0 g/dL; Glucose 102 mg/dL (74-106); Potassium 3.8 mmol/L (3.5-5.1); Sodium 139 mmol/L (136-145); Total Protein 8.0 g/dL (6.4-8.2)
[2024-12-07 20:36] LABS: Lactate/Lactic Acid 0.9 mmol/L (0.4-2.0)
--- NOTE | 2024-12-07 20:38 | CT_ITS ---
The [address] [address] Patient Name: GIANCARLO CELAYA MRN: [id number] date: 1995 Sex: F Assigned Patient Location: ER Current Patient Location: ER Accession/Order Number: [id number] Exam Date: 12/07/2024 21:35 Report Date: 12/07/2024 21:40 At the request of: BENITA LOPEZ MD Procedure: CT abdomen pelvis wo con CT ABDOMEN AND PELVIS WITHOUT INTRAVENOUS CONTRAST: CLINICAL HISTORY: fever, pelvic pain COMPARISON: None TECHNIQUE: Spiral images were obtained through the abdomen and pelvis without intravenous contrast. This CT exam was performed using one or more following dose reduction techniques: Automated exposure control, adjustment of the mA and/or kV according to patient size, or use of iterative reconstruction technique. FINDINGS: Lung Bases: [Lung bases are clear] Organs:Liver, spleen, adrenals, pancreas unremarkable gallbladder unremarkable. Mild prominence right renal collecting system and ureter without definite distal obstructing calculi. Left kidney is unremarkable. No left-sided hydronephrosis. No nephrolithiasis.[ GI: Mild retained stool. No bowel obstruction. Appendix is normal.[ Pelvis:[Mild bladder distention. Heterogeneous appearance of the uterus. Adnexal regions unremarkable as visualized.] Peritoneum/Retroperitoneum:No free air or free fluid. No suspicious adenopathy. Aorta unremarkable caliber.[ Abd wall/Bones:No suspicious osseous lesion.[ CT/CT abdomen pelvis wo con IMPRESSION: Slight prominence right renal collecting system and ureter noted, this may be physiologic finding due to the bladder distention. Correlate with urinalysis findings. Otherwise negative acute inflammatory process or bowel obstruction is noncontrast examination. Impression dictated by: Eddie Tello M.D. 12/07/2024 9:40 PM Dictation Location: [place] [address] Electronically authenticated by: [id number] Y Date: 12/07/2024 21:40
[2024-12-07 22:59] VITALS: TEMP 37.2
[2024-12-07 23:50] VITALS: BP 110/73; PULSE 100; TEMP 37.3; O2SAT 100
--- NOTE | 2024-12-11 14:30 | PC.NURSE ---
Discharge follow up call per Dr. Padron request due to cancelled test for vaginititis swab collection. Pt reports she hasn't ran a fever since Tuesday night. Feeling much better. Saw her SPREADING MACHINE OPERATOR yesterday for her 6 week post delivery follow up and is doing well. Reports she's been breast feeding less now due to being not well this last weekend. Results shared with Dr. Padron.
== END 2024-12-08 00:05 | disposition home or self-care (01) ==
PROVIDERS: Emergency Provider Emergency Medicine; PCP Nurse Practitioner Family
DX: O86.4 Pyrexia of unknown origin following delivery (principal)
CPT/HCPCS: 36415; 71046; 74176; 80053; 81001; 83605; 84703; 85025; 87040; 87070; 87081; 87086; 87480; 87510; 87660; 96365; 99285; J0696